=== PATIENT | male | born 1950 | race Two or more races ===

== ENCOUNTER 2016-12-06 07:06 | Day surgery (SDC) | payer OTHER ==
[2016-12-06 07:32] VITALS: BMI 29.2
--- NOTE | 2016-12-06 07:49 | PDOC ---
[id number] is a 66 year old male with a past medical hx of HTN, CHF, diabetes, end-stage renal disease on dialysis, and anemia who presents to the ED for left upper extremity fistula venogram/venoplasty. The patient reports he was sent by Dr. Paiz. The patient reports he feels fine and denies any pain or symptoms at this time. The patient denies any chest pain, SOB The patient denies any headache, lightheadedness, dizziness Vascular Surgeon: Dr. Kel Paiz <Cinda Noyola - Last Filed: 12/06/16 09:56> - General History Source: Patient Exam Limitations: No Limitations <Aman Weeks - Last Filed: 12/11/16 07:14> - General Chief Complaint: Dialysis Shunt Problem Stated Complaint: LEFT ARM PAIN Time Seen by Provider: 12/06/16 07:33 Past History <Cinda Noyola - Last Filed: 12/06/16 09:56> - Past Medical History Anemia: Yes Asthma: No Cancer: No Cardiac Disorders: No CVA: No COPD: No CHF: No Dementia: No Diabetes: Yes (non compliant) Dialysis: Yes (M-W-F) GI Disorders: No Disorders: Yes (Enlarged prostate) HTN: Yes Hypercholesterolemia: No Liver Disease: No Seizures: No Thyroid Disease: No - Surgical History Abdominal Surgery: No Appendectomy: Yes Cardiac Surgery: No Cholecystectomy: No Lung Surgery: No Neurologic Surgery: No Orthopedic Surgery: No - Family Disease History Family Disease History: Diabetes: Father - Psycho/Social/Smoking Cessation Hx Anxiety: No Suicidal Ideation: No Smoking History: Never smoked Have you smoked in the past 12 months: No Information on smoking cessation initiated: No Hx Alcohol Use: No Drug/Substance Use Hx: No Substance Use Type: None Hx Substance Use Treatment: No <Aman Weeks - Last Filed: 12/11/16 07:14> - Past Medical History Allergies/Adverse Reactions: Allergies Allergy/AdvReac Type Severity Reaction Status Date / Time No Known Allergies Allergy Verified 12/06/16 07:26 Home Medications: Ambulatory Orders Furosemide [Lasix -] 40 mg PO DAILY #30 tablet 04/27/16 Metoprolol Tartrate [Lopressor -] 25 mg PO BID #60 tablet 04/27/16 Aspirin [Ecotrin] 81 mg PO DAILY 03/23/17 Clopidogrel Bisulfate [Plavix -] 75 mg PO DAILY 12/06/16 Nifedipine ER [Procardia Xl -] 60 mg PO TID 12/06/16 Review of Systems - Review of Systems Able to Perform ROS?: Yes Comments:: 12/06/16 07:53 GENERAL/CONSTITUTIONAL: No fever or chills. No weakness. HEAD, EYES, EARS, NOSE AND THROAT: No change in vision. No ear pain or discharge. No sore throat. CARDIOVASCULAR: No chest pain or shortness of breath. RESPIRATORY: No cough, wheezing, or hemoptysis. GASTROINTESTINAL: No nausea, vomiting, diarrhea or constipation. GENITOURINARY: No dysuria, frequency, or change in urination. MUSCULOSKELETAL: No joint or muscle swelling or pain. No neck or back pain. SKIN: No rash NEUROLOGIC: No headache, vertigo, loss of consciousness, or change in strength/ sensation. ENDOCRINE: No increased thirst. No abnormal weight change. HEMATOLOGIC/LYMPHATIC: No anemia, easy bleeding, or history of blood clots. ALLERGIC/IMMUNOLOGIC: No hives or skin allergy. <Cinda Noyola - Last Filed: 12/06/16 09:56> *Physical Exam - Vital Signs Last Vital Signs Temp Pulse Resp BP Pulse Ox 97.7 F 72 18 146/77 95 12/06/16 07:20 12/06/16 07:20 12/06/16 07:20 12/06/16 07:20 12/06/16 07:20 - Physical Exam Comments: 12/06/16 07:54 GENERAL: Awake, alert, and fully oriented, in no acute distress HEAD: No signs of trauma EYES: PERRLA, EOMI, sclera anicteric, conjunctiva clear ENT: Auricles normal inspection, hearing grossly normal, nares patent, oropharynx clear without exudates. Moist mucosa NECK: Normal ROM, supple, no lymphadenopathy, JVD, or masses LUNGS: Breath sounds equal, clear to auscultation bilaterally. No wheezes, and no crackles HEART: Regular rate and rhythm, normal S1 and S2, no murmurs, rubs or gallops ABDOMEN: Soft, nontender, normoactive bowel sounds. No guarding, no rebound. No masses EXTREMITIES: +Palpable thrill left upper extremity fistula, right upper extremity dialysis port clean, dry, intact. Normal range of motion, no edema. No clubbing or cyanosis. No cords, erythema, or tenderness NEUROLOGICAL: Cranial nerves II through XII grossly intact. Normal speech, normal gait SKIN: Warm, Dry, normal turgor, no rashes or lesions noted. <Cinda Noyola - Last Filed: 12/06/16 09:56> - Vital Signs Last Vital Signs Temp Pulse Resp BP Pulse Ox 97.7 F 72 18 146/77 95 12/06/16 07:20 12/06/16 07:20 12/06/16 07:20 12/06/16 07:20 12/06/16 07:20 - Physical Exam Comments: 12/11/16 07:14 CORRECTION TO SCRIBE NOTE: Not a right upper extremity dialysis port, it is a right upper chest dialysis port. <Aman Weeks - Last Filed: 12/11/16 07:14> Heart Score/ECG Review #1 ECG reviewed & interpreted by me at: 07:40 12/06/16 07:49 NSR 67, no std, std, TWI aVL, submm STD III, QTC 469 msec <Aman Weeks - Last Filed: 12/11/16 07:14> ED Treatment Course - LABORATORY CBC & Chemistry Diagram: 12/06/16 08:00 12/06/16 08:00 <Cinda Noyola - Last Filed: 12/06/16 09:56> - LABORATORY CBC & Chemistry Diagram: 12/06/16 08:00 12/06/16 08:00 - RADIOLOGY Radiology Studies Ordered: Category Date Time Status CHEST PA & LAT [RAD] Stat Radiology 12/06/16 07:44 Ordered <Aman Weeks - Last Filed: 12/11/16 07:14> Medical Decision Making - Medical Decision Making 12/06/16 08:[address] Paiz at 0828, awaiting call back Dr. Paiz called back at 08:40, patients case was discussed. <Cinda Noyola - Last Filed: 12/06/16 09:56> - Medical Decision Making 12/06/16 07:48 A portion of this note was documented by scribe services under my direction. I have reviewed the details of the note, within reason, and agree with the documentation with the following case summary and management plan written by me. Patient treated in the ED. Nursing notes are reviewed and incorporated into the medical decision-making. Vital signs reviewed. Peripheral IV access obtained by the nurse, laboratory studies are drawn and sent, reviewed and interpreted by myself. Vital Signs Temp Pulse Resp BP Pulse Ox 97.7 F 72 18 146/77 95 12/06/16 07:20 12/06/16 07:20 12/06/16 07:20 12/06/16 07:20 12/06/16 07:20 66 year old male with past medical history of anemia of chronic disease, CHF, hypertension, diabetes, end-stage renal disease on dialysis with a left upper showing fistula and a right-sided chest dialysis port, cardiac disease presents to the emergency department for left upper extremity fistula venogram/ venoplasty. Patient was sent by his vascular surgeon. Patient denies any symptoms at this time. Had received his dialysis yesterday via his right chest port. We will pre-op this patient. Labs, EKG, chest x-ray. We'll touch base with patient's vascular surgeon admit the patient to hospital. 12/06/16 08:[address] Kel Paiz. He agrees to admit patient under ambulatory. Patient will be scheduled for the procedure at 10 am <Aman Weeks - Last Filed: 12/11/16 07:14> *DC/Admit/Observation/Transfer - Attestations Scribe Attestion: 12/06/16 07:53 Documentation prepared by Cinda Noyola, acting as lead medical technologist for Aman Weeks MD, MD/DO. <Cinda Noyola - Last Filed: 12/06/16 09:56> - Discharge Dispostion Admit: Yes <Aman Weeks - Last Filed: 12/11/16 07:14> Diagnosis at time of Disposition: Encounter regarding vascular access for dialysis for ESRD - Discharge Dispostion Condition at time of disposition: Good
[2016-12-06 08:20] LABS: EOSINOPHIL 3.1 % (0-4.5); MCH 33.3 pg (25.7-33.7); MCHC 33.8 g/dl (32.0-35.9); MEAN CELL VOLUME 98.6 fl (80-96); MEAN PLT VOLUME 7.9 fl (7.5-11.1); NEUTROPHILS 70.1 % (42.8-82.8); PLATELET COUNT 170 K/MM3 (134-434); RDW 15.3 % (11.9-15.9)
[2016-12-06 08:46] LABS: INR 1.09 (0.82-1.09)
[2016-12-06 08:48] LABS: ACTIVATED PTT 41.5 SECONDS (26.9-34.4)
[2016-12-06] MEDS ORDERED: HEPARIN NA (PORCINE) 5,000 UNITS/ML 1ML VIAL ONE ×2 (08:51→12:04)
[2016-12-06] MEDS ORDERED: LIDOCAINE HCL 1%, 10 MG/ML (20ML VIAL) ONE (08:51)
[2016-12-06 08:52] LABS: ALBUMIN 3.6 g/dl (3.4-5.0); BILIRUBIN,TOTAL 0.5 mg/dL (0.2-1.0); CREATININE 5.4 mg/dL (0.7-1.3); MAGNESIUM 2.3 mg/dL (1.8-2.4); TOT PROT 7.4 g/dl (6.4-8.2)
[2016-12-06] MEDS ORDERED: PROMETHAZINE HCL 25 MG/1 ML VIAL IVPUSH PRN (11:03)
[2016-12-06] MEDS ORDERED: ONDANSETRON 4 MG/2 ML VIAL IVPUSH PRN (11:03)
[2016-12-06] MEDS ORDERED: SODIUM CHLORIDE 1,000 ML IV SCH (11:15)
[2016-12-06] MEDS ORDERED: MIDAZOLAM HCL 2 MG/2 ML SINGLE DOSE VIAL ONE (11:37)
[2016-12-06] MEDS ORDERED: ceFAZolin SODIUM 1 GM VIAL ONE (11:55)
[2016-12-06] MEDS ORDERED: ceFAZolin SODIUM 1 GM VIAL IVPB ONE (11:56)
[2016-12-06] MEDS ORDERED: LIDOCAINE HCL 1%, 10 MG/ML (20ML VIAL) IJ ONE ×2 (11:58)
[2016-12-06] MEDS ORDERED: PROTAMINE SULFATE 50 MG/5 ML VIAL ONE (12:22)
--- NOTE | 2016-12-06 12:32 | HP ---
Admitting History and Physical - Admission Chief Complaint: immature avf left arm - Past Medical History Cardiovascular: Yes: HTN Renal/: Yes: Renal Failure Endocrine: Yes: Diabetes Mellitus - Smoking History Smoking history: Never smoked Have you smoked in the past 12 months: No - Alcohol/Substance Use Hx Alcohol Use: No - Social History ADL: Independent Home Medications - Allergies Allergies/Adverse Reactions: Allergies Allergy/AdvReac Type Severity Reaction Status Date / Time No Known Allergies Allergy Verified 12/06/16 07:26 - Home Medications Home Medications: Ambulatory Orders Furosemide [Lasix -] 40 mg PO DAILY #30 tablet 04/27/16 Metoprolol Tartrate [Lopressor -] 25 mg PO BID #60 tablet 04/27/16 Aspirin [Ecotrin] 81 mg PO DAILY 12/06/16 Clopidogrel Bisulfate [Plavix -] 75 mg PO DAILY 12/06/16 Nifedipine ER [Procardia Xl -] 60 mg PO TID 12/06/16 Physical Examination Vital Signs: Vital Signs Temperature 97.7 F 12/06/16 07:20 Pulse Rate 67 12/06/16 10:42 Respiratory Rate 19 12/06/16 10:42 Blood Pressure 163/74 12/06/16 10:42 O2 Sat by Pulse Oximetry (%) 95 12/06/16 10:42 Constitutional: Yes: Well Nourished Eyes: Yes: WNL HENT: Yes: WNL Neck: Yes: WNL Cardiovascular: Yes: WNL Respiratory: Yes: WNL Gastrointestinal: Yes: WNL Labs: CBC, BMP 12/06/16 08:00 12/06/16 08:00 Assessment/Plan Immature avf left arm 1. for balloon maturation today
--- NOTE | 2016-12-06 12:33 | OP ---
Operative Note - Note: Operative Date: 12/06/16 Pre-Operative Diagnosis: immature avf left arm Operation: venogram, venoplasty left avf Post-Operative Diagnosis: Same as Pre-op Surgeon: Kel Paiz Anesthesia: Fractional Estimated Blood Loss (mls): 5 Operative Report Dictated: Yes
[2016-12-06 13:58] VITALS: TEMP 98
[2016-12-06 16:26] VITALS: BP 148/66; PULSE 67
--- NOTE | 2016-12-06 17:05 | EKG ---
Test Reason : Blood Pressure : / mmHG Vent. Rate : 067 BPM Atrial Rate : 067 BPM P-R Int : 164 ms QRS Dur : 098 ms QT Int : 444 ms P-R-T Axes : 043 -06 077 degrees QTc Int : 469 ms NORMAL SINUS RHYTHM POSSIBLE LEFT ATRIAL ENLARGEMENT NONSPECIFIC ST AND T WAVE ABNORMALITY ABNORMAL ECG WHEN COMPARED WITH ECG OF 19-JUL-2016 09:41, T WAVE INVERSION NO LONGER EVIDENT IN LATERAL LEADS Confirmed by ARMEN SHAH, NINFA ([id number]) on 12/06/2016 5:04:58 PM Referred By: Confirmed By:NINFA AYERS MD
--- NOTE | 2016-12-07 10:32 | OP ---
DATE OF OPERATION: 12/06/2016 PREOPERATIVE DIAGNOSIS: Immature arteriovenous fistula. POSTOPERATIVE DIAGNOSIS: Immature arteriovenous fistula. PROCEDURE: Venogram, venoplasty, left arteriovenous fistula. SURGEON: Kel Farooq MD ANESTHESIA: Fractional. BLOOD LOSS: 10 mL. INDICATIONS: The patient is a 66-year-old male who had a fistula created back in August of 2016. He then had an ultrasound done in September 23, 2016, showing low flow in the AV fistula and showing that the fistula was immature. He then came in November to the office again after September when he was offered a procedure with pack, and now in November, he was offered a venogram. Patient was consented for the procedure understanding all risks, benefits, and alternatives, and patient came into ambulatory surgery. DESCRIPTION OF PROCEDURE: Patient was then taken to the operating room and laid down on the operating table in the supine manner. The area of the left arm was prepped and draped in the sterile surgical manner. Under ultrasound guidance, we visualized the distal left AV fistula in the upper arm, and we went ahead and injected 10 mL of lidocaine 1% there. We then took our micropuncture needle, punctured the left cephalic vein distally. Micropuncture wire was inserted. Micropuncture sheath was inserted, and a traditional short 6-[place] sheath was inserted. IV heparin 4000 units were administered. We then went ahead and placed a 0.035 floppy guidewire down towards the anastomosis and across the anastomosis into the radial artery. We then went ahead and used a 7 x 8 [place] balloon and performed a venoplasty of the entire fistula from the anastomosis up to the upper arm. Once completed, we shot our venogram of the fistula showing that the fistula was patent and was dilated, and there was good flow. At this point, using a 4-0 Biosyn stitch, a figure-of-8 stitch was placed around our sheath, and the sheath was pulled. The area was wet and dried, and Dermabond was placed. The patient tolerated the procedure with no complications. Patient transferred to PACU in stable condition. KEL FAROOQ DO [id number]
== END 2016-12-06 15:10 | disposition home or self-care (01) ==
LOC: JER 07:06 → JASUSAT 08:41
PROVIDERS: ATTEND Surgery Vascular Surgery
PROC: 057Y3ZZ Dilation of Upper Vein, Percutaneous Approach (ICD-10-PCS; principal; 2016-12-06 11:30)
DX: T82.898A Other specified complication of vascular prosthetic devices, implants and grafts, initial encounter (principal); I12.0 Hypertensive chronic kidney disease with stage 5 chronic kidney disease or end stage renal disease; E11.22 Type 2 diabetes mellitus with diabetic chronic kidney disease; N18.6 End stage renal disease; Z99.2 Dependence on renal dialysis
CPT/HCPCS: 36415; 71020-TC; 76000-TC; 80053; 83735; 85025; 85610; 85730; 86850; 86900; 86901; 93005; 93010; 94760; 99283-25; J1644

== ENCOUNTER 2018-01-17 22:37 | Emergency (ER) | payer SELFPAY ==
[2018-01-17 22:51] VITALS: TEMP 97.7; BMI 27.4
[2018-01-17] MEDS ORDERED: cloNIDine HCL 0.1 MG TABLET PO ONE (23:06)
[2018-01-17] MEDS ORDERED: cloNIDine HCL 0.1 MG TABLET ONE (23:18)
[2018-01-17 23:28] LABS: BASO % 0.8 % (0-2.0); EOS % 4.5 % (0-4.5); HEMATOCRIT 29.2 % (35.4-49); HEMOGLOBIN 10.1 GM/dL (11.7-16.9); LYMPH % 13.9 % (8-40); MCH 34.3 pg (25.7-33.7); MCHC 34.7 g/dl (32.0-35.9); MEAN CELL VOLUME 98.7 fl (80-96); MEAN PLT VOLUME 8.4 fl (7.5-11.1); MONO % 9.1 % (3.8-10.2); NEUT % 71.7 % (42.8-82.8); PLATELET COUNT 179 K/MM3 (134-434); RBC 2.96 M/mm3 (4.00-5.60); RDW 14.7 % (11.9-15.9); WHITE BLOOD COUNT 4.8 K/mm3 (4.0-10.0)
--- NOTE | 2018-01-17 23:32 | PDOC ---
History of Present Illness - General History Source: Patient Exam Limitations: No Limitations - History of Present Illness Initial Comments: 01/17/18 23:54 The patient is a 67 year old male with past medical history of hypertension, diabetes, and ESRD (on dialysis MWF) who presents to the ED with complaints of elevated blood pressure today while at dialysis today. He reports his blood pressure was 224/73 today and reports taking his blood pressure medication as well. He denies any associated headache, blurred vision, or palpitations. Denies any recent illness, fevers, or chills. The patient is on Hydralazine and Clonidine. He was originally started on 0.3 mg BID of clonidine but then prescribed 0.1 mg of clonidine 3x/day. Unsure if he has been taking his hydralazine. Old nursing notes reveal the patient was previously taking 60 mg nifedipine TID as well as Metoprolol. <Tamika Holliday - Last Filed: 01/18/18 02:13> - General History Source: Patient Exam Limitations: No Limitations <Fiona Yepez - Last Filed: 01/18/18 02:27> - General Chief Complaint: Blood Pressure Problem Stated Complaint: HYPERTENSIVE Time Seen by Provider: 01/17/18 22:50 Past History <Tamika Holliday - Last Filed: 01/18/18 02:13> - Past Medical History Anemia: Yes Asthma: No Cancer: No Cardiac Disorders: No CVA: No COPD: No CHF: No Dementia: No Diabetes: Yes (non compliant) Dialysis: Yes (M-W-F) GI Disorders: No Disorders: Yes (Enlarged prostate) HTN: Yes Hypercholesterolemia: No Liver Disease: No Seizures: No Thyroid Disease: No - Surgical History Abdominal Surgery: No Appendectomy: Yes Cardiac Surgery: No Cholecystectomy: No Lung Surgery: No Neurologic Surgery: No Orthopedic Surgery: No - Family Disease History Family Disease History: Diabetes: Father - Suicide/Smoking/Psychosocial Hx Smoking History: Never smoked Have you smoked in the past 12 months: No Information on smoking cessation initiated: No Hx Alcohol Use: No Drug/Substance Use Hx: No Substance Use Type: None Hx Substance Use Treatment: No <Fiona Yepez - Last Filed: 01/18/18 02:27> - Past Medical History Allergies/Adverse Reactions: Allergies Allergy/AdvReac Type Severity Reaction Status Date / Time No Known Allergies Allergy Verified 01/17/18 22:50 Home Medications: Ambulatory Orders Furosemide [Lasix -] 40 mg PO DAILY #30 tablet 04/27/16 Aspirin [Ecotrin] 81 mg PO DAILY 12/06/16 Clopidogrel Bisulfate [Plavix -] 75 mg PO DAILY 12/06/16 Hydralazine HCl 50 mg PO TID 01/17/18 Hydralazine HCl 50 mg PO TID #42 tablet 01/18/18 Review of Systems - Review of Systems Able to Perform ROS?: Yes Comments:: 01/17/18 23:54 GENERAL/CONSTITUTIONAL: No fever or chills. No weakness. HEAD, EYES, EARS, NOSE AND THROAT: No change in vision. No ear pain or discharge. No sore throat. CARDIOVASCULAR: No chest pain or shortness of breath. RESPIRATORY: No cough, wheezing, or hemoptysis. GASTROINTESTINAL: No nausea, vomiting, diarrhea or constipation. GENITOURINARY: No dysuria, frequency, or change in urination. MUSCULOSKELETAL: No joint or muscle swelling or pain. No neck or back pain. SKIN: No rash NEUROLOGIC: No headache, vertigo, loss of consciousness, or change in strength/ sensation. ENDOCRINE: No increased thirst. No abnormal weight change. HEMATOLOGIC/LYMPHATIC: No anemia, easy bleeding, or history of blood clots. ALLERGIC/IMMUNOLOGIC: No hives or skin allergy. All Other Systems: Reviewed and Negative <Tamika Holliday - Last Filed: 01/18/18 02:13> *Physical Exam - Vital Signs Last Vital Signs Temp Pulse Resp BP Pulse Ox 97.7 F 46 L 18 224/73 96 01/17/18 22:50 01/17/18 22:50 01/17/18 22:50 01/17/18 22:50 01/17/18 22:50 - Physical Exam Comments: 01/17/18 23:54 GENERAL: drowsy but arousable and fully oriented, in no acute distress HEAD: No signs of trauma EYES: PERRLA, EOMI, sclera anicteric, conjunctiva clear ENT: Auricles normal inspection, hearing grossly normal, nares patent, oropharynx clear without exudates. Moist mucosa NECK: Normal ROM, supple, no lymphadenopathy, JVD, or masses LUNGS: Breath sounds equal, clear to auscultation bilaterally. No wheezes, and no crackles HEART: Regular rate and rhythm, normal S1 and S2, no murmurs, rubs or gallops ABDOMEN: Soft, nontender, normoactive bowel sounds. No guarding, no rebound. No masses EXTREMITIES: Normal range of motion, no edema. No clubbing or cyanosis. No cords, erythema, or tenderness NEUROLOGICAL: Cranial nerves II through XII grossly intact. Normal speech, normal gait SKIN: Warm, Dry, normal turgor, no rashes or lesions noted. <DouglashoTamika - Last Filed: 01/18/18 02:13> - Vital Signs Last Vital Signs Temp Pulse Resp BP Pulse Ox 97.7 F 46 L 18 224/73 96 01/17/18 22:50 01/17/18 22:50 01/17/18 22:50 01/17/18 22:50 01/17/18 22:50 <Fiona Yepez - Last Filed: 01/18/18 02:27> Heart Score/ECG Review #1 General ECG Interpretation: Sinus Rhythm, Normal Rate, Normal Intervals, No acute ischemic changes (TWI I AVL, v5 - v6.) Compared to previous ECG there are: No significant change (comparison 12/06/16) <Fiona Yepez - Last Filed: 01/18/18 02:27> ED Treatment Course - LABORATORY CBC & Chemistry Diagram: 01/17/18 23:15 01/17/18 23:15 - ADDITIONAL ORDERS Additional order review: 01/17/18 23:15 RBC 2.96 L MCV 98.7 H MCHC 34.7 RDW 14.7 MPV 8.4 Neutrophils % 71.7 Lymphocytes % 13.9 Monocytes % 9.1 Eosinophils % 4.5 Basophils % 0.8 - Medications Given in the ED: ED Medications Discontinued Medications Generic Name Dose Route Start Last Admin Trade Name Freq PRN Reason Stop Dose Admin Clonidine 0.1 mg 01/17/18 23:06 01/17/18 23:21 Catapres - PO 01/17/18 23:07 0.1 mg ONCE ONE Administration <ryannehoTamika - Last Filed: 01/18/18 02:13> - LABORATORY CBC & Chemistry Diagram: 01/17/18 23:15 01/17/18 23:15 - RADIOLOGY Radiology Studies Ordered: Category Date Time Status CHEST PA & LAT [RAD] Stat Radiology 01/17/18 23:07 Ordered - Medications Given in the ED: ED Medications Discontinued Medications Generic Name Dose Route Start Last Admin Trade Name Donna PRErik Reason Stop Dose Admin Clonidine 0.1 mg 01/17/18 23:06 01/17/18 23:21 Catapres - PO 01/17/18 23:07 0.1 mg ONCE ONE Administration <Fiona Yepez - Last Filed: 01/18/18 02:27> Medical Decision Making - Medical Decision Making 01/18/18 02:13 Phone call placed in attempt to speak to labor economics professor physician for Dr. Kb Bailey. <Tamika Holliday - Last Filed: 01/18/18 02:13> - Medical Decision Making 01/18/18 02:26 pt with elevated bp, but states he has had bp over 200's for over a month. eduard cp or sob. workup negative including ekg cxr . mild pos trop always positive, no ekg changes. d/w pt regarding medicaiton. will need to see dr. bailey to reevaluate medication next week.appears pt not taking his hydralazine. sent rx to pharmacy for hydralazine 50 tid. <Fiona Yepez - Last Filed: 01/18/18 02:27> *DC/Admit/Observation/Transfer - Attestations Scribe Attestion: 01/17/18 23:55 Documentation prepared by Tamika Holliday, acting as medical affairs manager for Fiona Yepez MD. <Tamika Holliday - Last Filed: 01/18/18 02:13> <Fiona Yepez - Last Filed: 01/18/18 02:27> Diagnosis at time of Disposition: Hypertension - Discharge Dispostion Disposition: HOME Condition at time of disposition: Improved - Prescriptions Prescriptions: Hydralazine HCl 50 mg PO TID #42 tablet - Referrals Referrals: Kb Bailey MD [Primary Care Provider] - - Patient Instructions Printed Discharge Instructions: DI for High Blood Pressure Additional Instructions: you need to follow up with Dr. Bailey next week to discuss your medications. return for any difficulty breathing chest pain , headache or any concerns. you should continue taking your blood pressure medication, and also take hydralazine 50 mg three times daily. - Post Discharge Activity
[2018-01-17 23:55] LABS: ALBUMIN 3.7 g/dl (3.4-5.0); ANION GAP 9 (8-16); BLOOD UREA NITROGEN 26 mg/dL (7-18); CALCIUM 9.1 mg/dL (8.5-10.1); CHLORIDE 97 mmol/L (98-107); CO2 30 mmol/L (21-32); CREATININE 4.8 mg/dL (0.7-1.3); GLUCOSE,RANDOM 251 mg/dL (74-106); POTASSIUM 4.5 mmol/L (3.5-5.1); SGOT/AST 12 U/L (15-37); SGPT/ALT 19 U/L (12-78); SODIUM 136 mmol/L (136-145)
[2018-01-17 23:59] LABS: ALK PHOS 143 U/L (45-117); BILIRUBIN,TOTAL 0.7 mg/dL (0.2-1.0); TOT PROT 7.4 g/dl (6.4-8.2)
[2018-01-18] MEDS ORDERED: hydrALAZINE HCL 50 MG TABLET (FP) PO ONE (01:51)
[2018-01-18] MEDS ORDERED: hydrALAZINE HCL 25 MG TABLET (FP) ONE (01:58)
[2018-01-18 02:56] VITALS: BP 180/75; PULSE 44
--- NOTE | 2018-01-18 14:33 | EKG ---
Test Reason : Blood Pressure : / mmHG Vent. Rate : 048 BPM Atrial Rate : 048 BPM P-R Int : 186 ms QRS Dur : 100 ms QT Int : 530 ms P-R-T Axes : 042 -16 159 degrees QTc Int : 473 ms SINUS BRADYCARDIA POSSIBLE LEFT ATRIAL ENLARGEMENT PROLONGED QT ABNORMAL ECG WHEN COMPARED WITH ECG OF 06-DEC-2016 07:39, NONSPECIFIC T WAVE ABNORMALITY NOW EVIDENT IN INFERIOR LEADS T WAVE INVERSION NOW EVIDENT IN LATERAL LEADS Confirmed by MD Faustino, Aram ([id number]) on 01/18/2018 2:33:41 PM Referred By: Confirmed By:Aram Harmon MD
== END 2018-01-18 03:18 | disposition home or self-care (01) ==
LOC: JER 22:37
DX: I10 Essential (primary) hypertension (principal); I12.0 Hypertensive chronic kidney disease with stage 5 chronic kidney disease or end stage renal disease; E11.22 Type 2 diabetes mellitus with diabetic chronic kidney disease; N18.6 End stage renal disease; N17.8 Other acute kidney failure; Z99.2 Dependence on renal dialysis; N40.0 Benign prostatic hyperplasia without lower urinary tract symptoms; Z91.14 Patient's other noncompliance with medication regimen
CPT/HCPCS: 36415; 71045-TC-FY; 80053; 82550; 84484; 85025; 93005; 93010; 99284-25; J0735

== ENCOUNTER 2018-05-14 19:20 | Inpatient (IN) | payer OTHER ==
[2018-05-14 19:30] VITALS: BMI 29.6
--- NOTE | 2018-05-14 19:30 | PDOC ---
Rapid Medical Evaluation Time Seen by Provider: 05/14/18 19:26 Medical Evaluation: Allergies Allergy/AdvReac Type Severity Reaction Status Date / Time No Known Allergies Allergy Verified 01/17/18 22:50 05/14/18 19:27 Pt presents with R 2nd toe infection. Family member states that he had a cut on his toe approximately one week ago. He was taken to a hospital and was given abx. His family member checked the toe today and states it is black. Pt has NIDDM. Pt is on dialysis. Pt was last dialyzed today. Exam: ambulatory with limp, NAD, afebrile Orders: Labs, EKG, IV insert, Urine Pt to proceed to ED for further evaluation Discharge Disposition - Diagnosis Wound infection - Referrals - Patient Instructions - Post Discharge Activity
--- NOTE | 2018-05-14 21:18 | PDOC ---
History of Present Illness - General Chief Complaint: Puncture Wound Stated Complaint: INFECTION Time Seen by Provider: 05/14/18 19:26 History Source: Patient Exam Limitations: No Limitations - History of Present Illness Initial Comments: 05/14/18 21:12 68 yo M with a hx of ESRD (on dialysis MWF last tx today), HTN, and DM presents to the emergency department with left 4th toe digit infection. Per the patient, he states it occurred 1 week ago and began as a small cut on the web space between the 3rd and 4th digit. He went to [facility] 1 week ago and treated with clindamycin (prescribed on 05/10/2018, compliant) but has been getting worse. Per the daughter, she noticed it turning black today. The patient states its painful, does not radiate, and is currently 4/10 throbbing and increases to 7/10 when walking. Denies the following: fever, chest pain, headache, dizziness , chills, diaphoresis, SOB, abdominal pain, hematuria, diarrhea, nausea, vomiting, and leg swelling/pain. Endorses having a cough for the past few days. Pmhx: Refer to above. On dialysis for 2 years. Shx: AV fistula left arm 2017 Meds: hydralazine, nifedipine, aspirin, renagel, and chlorthalid Allergies: None Social hx: Denies smoking, alcohol, and drug use. 05/14/18 21:15 Past History - Past Medical History Allergies/Adverse Reactions: Allergies Allergy/AdvReac Type Severity Reaction Status Date / Time No Known Allergies Allergy Verified 05/14/18 19:30 Home Medications: Ambulatory Orders Furosemide [Lasix -] 40 mg PO DAILY #30 tablet 04/27/16 Aspirin [Ecotrin] 81 mg PO DAILY 12/06/16 Clopidogrel Bisulfate [Plavix -] 75 mg PO DAILY 12/06/16 Hydralazine HCl 50 mg PO TID 01/17/18 Hydralazine HCl 50 mg PO TID #42 tablet 01/18/18 Anemia: No Asthma: No Cancer: No Cardiac Disorders: No CVA: No COPD: No CHF: No Dementia: No Diabetes: Yes (non compliant) Dialysis: Yes (M-W-F) GI Disorders: No Disorders: Yes (Enlarged prostate) HTN: Yes Hypercholesterolemia: No Liver Disease: No Seizures: No Thyroid Disease: No - Surgical History Abdominal Surgery: No Appendectomy: Yes Cardiac Surgery: No Cholecystectomy: No Lung Surgery: No Neurologic Surgery: No Orthopedic Surgery: No - Family Disease History Family Disease History: Diabetes: Father - Suicide/Smoking/Psychosocial Hx Smoking History: Never smoked Have you smoked in the past 12 months: No Hx Alcohol Use: No Drug/Substance Use Hx: No Substance Use Type: None Hx Substance Use Treatment: No Review of Systems - Review of Systems Able to Perform ROS?: Yes Constitutional: No: Chills, Diaphoresis, Fever HEENTM: No: Recent change in vision, Ear Pain, Nose Pain, Throat Pain, Mouth Pain Respiratory: No: Cough, Shortness of Breath, Hemoptysis Cardiac (ROS): No: Chest Pain, Palpitations ABD/GI: No: Constipated, Diarrhea, Nausea, Rectal Bleeding, Vomiting, Tarry Stools : No: Burning, Dysuria, Hematuria Integumentary: Yes: Change in Color (black on 4th digit left toe), Erythema Neurological: No: Headache, Numbness, Paresthesia, Tingling, Tremors Psychiatric: No: Stressors Endocrine: No: Increased Hunger Hematologic/Lymphatic: No: Anemia *Physical Exam - Vital Signs Last Vital Signs Temp Pulse Resp BP Pulse Ox 97.8 F 60 18 158/66 95 05/14/18 19:26 05/14/18 19:26 05/14/18 19:26 05/14/18 19:26 05/14/18 19:26 - Physical Exam General Appearance: Yes: Nourished, Appropriately Dressed HEENT: positive: EOMI, HILLARY Neck: positive: Trachea midline. negative: Lymphadenopathy (R), Lymphadenopathy (L) Respiratory/Chest: positive: Lungs Clear, Normal Breath Sounds Cardiovascular: positive: Regular Rhythm, Regular Rate, S1, S2. negative: Systolic Murmur Vascular Pulses: Dorsalis-Pedis (R): 2+, Doralis-Pedis (L): 2+ Gastrointestinal/Abdominal: positive: Normal Bowel Sounds. negative: Tender Lymphatic: negative: Adenopathy Musculoskeletal: positive: Normal Inspection. negative: CVA Tenderness Extremity: positive: Delayed Capillary Refill, Erythema, Inflammation, Other ( developing gangrenous color on the left 4th toe digit. ) Integumentary: positive: Dry, Warm Neurologic: positive: clerk II-XII NML intact, Fully Oriented, Alert, Motor Strength 5/5, Other (decreased sensation at site of infection in the 4th digit toe left.) Heart Score/ECG Review - ECG Intrepretation Comment:: sinus rhythm at [address] elevations and depressions noted. ED Treatment Course - LABORATORY CBC & Chemistry Diagram: 05/14/18 21:24 05/14/18 21:24 - RADIOLOGY Radiology Studies Ordered: Category Date Time Status TOE(S) LEFT [RAD] Stat Radiology 05/14/18 20:50 Ordered Medical Decision Making - Medical Decision Making 68 yo M with hx of DM, ESRD on dialysis (MWF last dose today), and HTN who presents to the ED with diabetic foot wound failure to respond to outpatient oral antibiotics. Initial vitals" Initial Vital Signs Temp Pulse Resp BP Pulse Ox 97.8 F 60 18 158/66 95 05/14/18 19:26 05/14/18 19:26 05/14/18 19:26 05/14/18 19:26 05/14/18 19:26 Work up: Laboratory Tests 05/14/18 05/14/18 05/14/18 21:24 21:24 21:24 WBC 7.0 RBC 3.17 L Hgb 10.7 L Hct 32.1 L MCV 101.2 H MCH 33.7 MCHC 33.3 RDW 16.0 H Plt Count 253 D MPV 8.3 Absolute Neuts (auto) 5.3 Neutrophils % 76.9 Lymphocytes % 8.4 D Monocytes % 13.1 H Eosinophils % 1.0 Basophils % 0.6 Nucleated RBC % 0 PT with INR 12.30 INR 1.09 Sodium 137 Potassium 4.6 Chloride 98 Carbon Dioxide 28 Anion Gap 11 BUN 26 H Creatinine 5.1 H Creat Clearance w eGFR 11.27 Random Glucose 179 H D Calcium 9.1 Total Bilirubin 0.4 AST 20 D ALT 28 D Alkaline Phosphatase 371 H Total Protein 7.3 Albumin 3.3 L pt was prescribed oral clindaymycin and suspected outpatient abx failure in setting of diabetic foot wound. xrays were ordered of the left foot and showed loss of bone density, "heavy vascular calcifications and some arhritic changes. If one is concerned about osteomyelitis, three phase bone can or MR is suggested. Given need for IV abx, will need admission. *DC/Admit/Observation/Transfer Diagnosis at time of Disposition: Wound infection, ESRD (end stage renal disease), Diabetic foot infection - Discharge Dispostion Decision to Admit order: Yes - Referrals - Patient Instructions - Post Discharge Activity
[2018-05-14] MEDS ORDERED: VANCOMYCIN 1,000 MG in DEXTROSE 5%-WATER - 250 ML IVPB ONE (21:32)
[2018-05-14] MEDS ORDERED: PIPERACILLIN/TAZOB 2.25 GM 2.25 GM in DEXTROSE 5%-WATER - 50 ML IVPB ONE (21:32)
[2018-05-14 21:45] LABS: BASO % 0.6 % (0-2.0); HEMATOCRIT 32.1 % (35.4-49); HEMOGLOBIN 10.7 GM/dL (11.7-16.9); LYMPH % 8.4 % (8-40); MCH 33.7 pg (25.7-33.7); MCHC 33.3 g/dl (32.0-35.9); MEAN CELL VOLUME 101.2 fl (80-96); MEAN PLT VOLUME 8.3 fl (7.5-11.1); MONO % 13.1 % (3.8-10.2); NEUT % 76.9 % (42.8-82.8); PLATELET COUNT 253 K/MM3 (134-434); RBC 3.17 M/mm3 (4.00-5.60)
[2018-05-14 21:50] LABS: INR 1.09 (0.83-1.09); PROTHROMBIN TIME (PATIENT) 12.3 SEC (9.7-13.0)
--- NOTE | 2018-05-14 21:55 | PDOC ---
Attending Attestation - [facility] HPI: 05/14/18 21:58 The patient is a 68 year old male, with a significant past medical history of ESRD (on dialysis MWF last tx today)(2 years), HTN, and DM presents to the emergency department with left 4th toe digit infection, who presents to the ED complaining of a small cut in the web space between the 3rd and 4th digit. He went to [facility] 1 week ago and was treated with clindamycin (prescribed on 05/10/2018, compliant) but has been getting worse. Daughter states that she noticed the area turning black today. He notes that the area is painful but does not radiate anywhere. Pain increases when he walks. He notes that he has been experiencing a dry cough over the past few days. The patient denies chest pain, shortness of breath, headache and dizziness. Denies fever, chills, nausea, vomiting, diarrhea or constipation. Denies dysuria , frequency, urgency and hematuria. Allergies: None Past surgical history: AV fistula left arm 2017, appendectomy Social History: No alcohol, tobaco or drug use reported - Physicial Exam PE: 05/14/18 21:58 Constitutional: Awake, alert, oriented. No acute distress. Head: Normocephalic. Atraumatic Eyes: PERRL. EOMI. Conjunctivae are not pale. ENT: Mucous membranes are moist and intact. Posterior pharynx without exudates or erythema. Uvula midline. Neck: Supple. Full ROM. No lymphadenopathy. Cardiovascular: Regular rate. Regular rhythm. S1, S2 regular. Distal pulses are 2+ and symmetric. Pulmonary/Chest: No evidence of respiratory distress. Clear to auscultation bilaterally No wheezing, rales or rhonchi. Abdominal: Soft and non-distended. There is no tenderness. No rebound, guarding or rigidity. No organomegaly. No palpable masses. Good bowel sounds. Back: No CVA tenderness. Musculoskeletal: (+) Left upper extremity AV fistula. Left foot pedal pulses are 1+. Delayed cap refill. Warm to touch. Left 4th tow has skin breakage, purulent drainage, tender to palpation. No crepatus. No edema. No cyanosis. No clubbing. Full range of motion in all extremities. Nocalf tenderness. Skin: Skin is warm and dry. No petechiae. No purpura. Neurological: Alert and oriented to person, place, and time. Cranial nerves II -XII are grossly intact. Normal speech. Strength is grossly symmetric. No sensory deficits. Psychiatric: Good eye contact. Normal interaction, affect and behavior. <Corbin Bautista - Last Filed: 05/14/18 21:58> - Resident Resident Name: Osvaldo Rand - ED Attending Attestation I have performed the following: I have examined & evaluated the patient, The case was reviewed & discussed with the resident, I agree w/resident's findings & plan, Exceptions are as noted - Medical Decision Making 05/14/18 21:51 I, Dr. Sherry Estes, DO, attest that this document has been prepared under my direction and personally reviewed by me in its entirety. I further attest, that it accurately reflects all work, treatment, procedures and medical decision -making performed by me. 05/14/18 21:52 a/p: 68yo male with toe injury a week ago, currently on oral clina from [facility] with worsening pain and drainage from the L 4th digit -necrosis of the plantar surface of the toe, mildly delayed cap refill -hx of ESRD on HD m,w,f - had full HD today - swelling, purulent drainage, concern for failed outpt abx and diabetic foot wound -Dr. Aguilar is nephro -Dr. Kb Leonardo is PMD -will send cultures -concern for nonhealing dm foot wound and poss osteo -will obtain xrays -will need admission for IV abx 05/15/18 01:00 labs reviewed case discussed with ASHLY who accepts pt to service <Sherry Estes - Last Filed: 05/15/18 01:02> Discharge Disposition - Discharge Dispostion Last Admission D/C Date: 04/26/16 Decision to Admit order: Yes <Sherry Estes - Last Filed: 05/15/18 01:02> - Diagnosis Wound infection, ESRD (end stage renal disease), Diabetic foot infection - Discharge Dispostion Condition at time of disposition: Fair - Referrals Referrals: Kb Leonardo MD [Primary Care Provider] - - Patient Instructions - Post Discharge Activity Heart Score/ECG Review - ECG Intrepretation Comment:: 05/14/18 21:51 sinus prashant at 57, lvh, nl axis, nl interval, no acute st/t wave findings <Sherry Estes - Last Filed: 05/15/18 01:02>
[2018-05-14 22:00] LABS: ALBUMIN 3.3 g/dl (3.4-5.0); ALK PHOS 371 U/L (45-117); ANION GAP 11 MMOL/L (8-16); BILIRUBIN,TOTAL 0.4 mg/dL (0.2-1.0); BLOOD UREA NITROGEN 26 mg/dL (7-18); CALCIUM 9.1 mg/dL (8.5-10.1); CHLORIDE 98 mmol/L (98-107); CO2 28 mmol/L (21-32); CREATININE 5.1 mg/dL (0.7-1.3); GLUCOSE,RANDOM 179 mg/dL (74-106); POTASSIUM 4.6 mmol/L (3.5-5.1); SGOT/AST 20 U/L (15-37); SGPT/ALT 28 U/L (12-78); SODIUM 137 mmol/L (136-145); TOT PROT 7.3 g/dl (6.4-8.2)
[2018-05-14] MEDS ORDERED: VANCOMYCIN 1 GRAM (PRE-DOCKED) 1,000 MG/250 ML BAG IVPB ONE (22:10)
[2018-05-14] MEDS ORDERED: PIPERACILLIN/TAZOBACTAM 2.25 GM VIAL IVPB ONE (22:10)
--- NOTE | 2018-05-15 00:45 | PN ---
Teaching Attending Note Name of Resident: David Orellana ATTENDING PHYSICIAN STATEMENT I saw and evaluated the patient. I reviewed the resident's note and discussed the case with the resident. I agree with the resident's findings and plan as documented. SUBJECTIVE: Patient is a 68 year old man with history of ESRD for 2 years (M-W-F last dialyzed today), HTN, and NIDDM who presents to the ER with left 4th toe infection. He says it occurred 1 week ago and began as a small cut on the web space between the 3rd and 4th digit. He went to [facility] 1 week ago and treated with clindamycin (prescribed on 05/10/2018, compliant) but has been getting worse. Per the daughter, she noticed it turning black today. The patient states it is painful, does not radiate, and is currently 4/10 throbbing and increases to 7/10 when walking. Denies fever, chest pain, headache, dizziness, chills, diaphoresis, SOB, diarrhea, nausea, or vomiting. Has had a cough for the past few days. OBJECTIVE: Alert Vital Signs Period Temp Pulse Resp BP Sys/Cole Pulse Ox Last 24 Hr 97.8 F-98.1 F 60-62 18-20 148-158/65-66 95-100 HEENT: No Jaundice, eye redness or discharge, PERRLA, EOMI. Normocephalic, atraumatic. External ears are normal and hearing is grossly intact. No nasal discharge. Neck: Supple, nontender. No palpable adenopathy or thyromegaly. No JVD Chest: Good effort. Clear to auscultation and percussion. Heart: Regular. No S3, rub or murmur Abdomen: Not distended, soft, nontender and no HSM. No rebound or guarding. Normoactive bowel sounds. Ext: Peripheral pulses intact. Left arm AV fistula with good thrill and bruit. No leg edema. Discolored left 4th toe with wound and drainage; tender to palpation. Skin: Warm and dry. No petechiae, rash or ecchymosis. Neuro: Alert. Oriented x3. CN 2-12 grossly intact. Sensation grossly intact in all four extremities and DTR are symmetric. Home Medications Medication Instructions Recorded Furosemide [Lasix -] 40 mg PO DAILY #30 tablet 08/12/16 Aspirin [Ecotrin] 81 mg PO DAILY 12/06/16 Clopidogrel Bisulfate [Plavix -] 75 mg PO DAILY 12/06/16 Hydralazine HCl 50 mg PO TID 01/17/18 Hydralazine HCl 50 mg PO TID #42 tablet 01/18/18 Abnormal Lab Results 05/14/18 05/14/18 21:24 21:24 RBC 3.17 L Hgb 10.7 L Hct 32.1 L MCV 101.2 H RDW 16.0 H Monocytes % 13.1 H BUN 26 H Creatinine 5.1 H Random Glucose 179 H D Alkaline Phosphatase 371 H Albumin 3.3 L ASSESSMENT AND PLAN: 1. Infected diabetic foot wound - Will do wound culture and treat with IV vancomycin and zosyn pending culture. Foot xray is unrevealing. Consult podiatry and ID. Consult nephrology to continue thrice weekly dialysis. Macrocytosis - get B12 and folate levels. 2. DM - Diet-controlled DM? Check HbA1c and implement sliding scale insulin regimen. Provide comprehensive diabetes care with patient teaching and counseling about the importance of euglycemia, eye care and foot care. 3. DVT prophylaxis - Heparin 5000u sq tid. 4. Advance directives - Full code
--- NOTE | 2018-05-15 03:12 | HP ---
CHIEF COMPLAINT: Left toe pain PCP: Dr. Leonardo HISTORY OF PRESENT ILLNESS: The patient is Finnish speaking. History obtained w/ assistance of [employer] conference interpreter #[id number] The patient is a 68 yo m w/ PMH ESRD on HD (MWF) HTN, DM who comes tot he ED c/ o a 1 week history of worsening left foot infection. The patient states that his infection began approx 5 days ago with a cut between his 3rd and 4th toe. The foot then developed erythema and pain. 3 days ago, the patient went to [facility] ED, where he was sent home with clindamycin. The infection continued to worsen despite ABX treatment and the patient presented for evaluation after he noticed his 4th toe turning black today. The patient describes 4/10 throbbing pain in the left foot while at rest and 7/10 left foot pain while ambulating. Patient does not follow with either a family lawyer or opthalmologist. Patient denies fevers, chills, chest pain, headache, diarrhea, dysuria, SOB, abdominal pain. 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 DM wound treatment 3 years ago On HD x 2 years PAST SURGICAL HISTORY: Left AVF 2017 Cataract surgery Social History: Smoking: denies Alcohol: denies Drugs: denies Family History: mother, father and 1 sibling w/ DM Allergies No Known Allergies Allergy (Verified 05/14/18 19:30) HOME MEDICATIONS: Home Medications Medication Instructions Recorded Furosemide [Lasix -] 40 mg PO DAILY #30 tablet 04/27/16 Aspirin [Ecotrin] 81 mg PO DAILY 12/06/16 Clopidogrel Bisulfate [Plavix -] 75 mg PO DAILY 12/06/16 Hydralazine HCl 50 mg PO TID 01/17/18 Hydralazine HCl 50 mg PO TID #42 tablet 01/18/18 REVIEW OF SYSTEMS CONSTITUTIONAL: Absent: fever, chills, diaphoresis, generalized weakness, malaise, loss of appetite, weight change HEENT: Absent: rhinorrhea, nasal congestion, throat pain, throat swelling, difficulty swallowing, mouth swelling, ear pain, eye pain, visual changes CARDIOVASCULAR: Absent: chest pain, syncope, palpitations, irregular heart rate, lightheadedness , peripheral edema RESPIRATORY: Absent: cough, shortness of breath, dyspnea with exertion, orthopnea, wheezing, stridor, hemoptysis GASTROINTESTINAL: Absent: abdominal pain, abdominal distension, nausea, vomiting, diarrhea, constipation, melena, hematochezia GENITOURINARY: Absent: dysuria, frequency, urgency, hesitancy, hematuria, flank pain, genital pain MUSCULOSKELETAL: Absent: myalgia, arthralgia, joint swelling, back pain, neck pain SKIN: Absent: rash, itching, pallor HEMATOLOGIC/IMMUNOLOGIC: Absent: easy bleeding, easy bruising, lymphadenopathy, frequent infections ENDOCRINE: Absent: unexplained weight gain, unexplained weight loss, heat intolerance, cold intolerance NEUROLOGIC: Absent: headache, focal weakness or paresthesias, dizziness, unsteady gait, seizure, mental status changes, bladder or bowel incontinence PSYCHIATRIC: Absent: anxiety, depression, suicidal or homicidal ideation, hallucinations. PHYSICAL EXAMINATION Vital Signs - 24 hr 05/14/18 05/14/18 05/14/18 19:26 20:55 23:19 Temperature 97.8 F 98.1 F Pulse Rate 60 Pulse Rate [ 62 Apical] Respiratory 18 20 Rate Blood Pressure 158/66 Blood Pressure 148/65 [Right Arm] O2 Sat by Pulse 95 100 95 Oximetry (%) GENERAL: Awake, alert, and fully oriented, in no acute distress. HEAD: Normal with no signs of trauma. EYES: Pupils equal, round and reactive to light, extraocular movements intact, sclera anicteric, conjunctiva clear. No lid lag. EARS, NOSE, THROAT: oropharynx clear without exudates. Moist mucous membranes. NECK: Normal range of motion, supple without lymphadenopathy, JVD, or masses. LUNGS: Breath sounds equal, clear to auscultation bilaterally. No wheezes, and no crackles. No accessory muscle use. HEART: Regular rate and rhythm, normal S1 and S2 without murmur, rub or gallop. ABDOMEN: Soft, nontender, not distended, normoactive bowel sounds, no guarding, no rebound, no masses. No hepatomegaly or splenomegaly. LOWER EXTREMITIES: warm, well-perfused. No calf tenderness. No peripheral edema. The left 4th toe is dark in color, cold to the touch with obvious skin breakdown. The toe is foul smelling. There is a surrounding erythema along the dorsum of the patient's foot. No fluctuance appreciated. Pulses 2+ on the right and 1+ on the left NEUROLOGICAL: Cranial nerves II-X intact. Normal speech. PSYCHIATRIC: Cooperative. Good eye contact. Appropriate mood and affect. SKIN: Warm, dry, normal turgor, no rashes or lesions noted, normal capillary refill. Laboratory Results - last 24 hr 05/14/18 05/14/18 05/14/18 21:24 21:24 21:24 WBC 7.0 RBC 3.17 L Hgb 10.7 L Hct 32.1 L MCV 101.2 H MCH 33.7 MCHC 33.3 RDW 16.0 H Plt Count 253 D MPV 8.3 Absolute Neuts (auto) 5.3 Neutrophils % 76.9 Lymphocytes % 8.4 D Monocytes % 13.1 H Eosinophils % 1.0 Basophils % 0.6 Nucleated RBC % 0 PT with INR 12.30 INR 1.09 Sodium 137 Potassium 4.6 Chloride 98 Carbon Dioxide 28 Anion Gap 11 BUN 26 H Creatinine 5.1 H Creat Clearance w eGFR 11.27 Random Glucose 179 H D Calcium 9.1 Total Bilirubin 0.4 AST 20 D ALT 28 D Alkaline Phosphatase 371 H Total Protein 7.3 Albumin 3.3 L ASSESSMENT/PLAN: The patient is a 68 yo m w/ PMH ESRD on HD, HTN, DM who comes into the ED c/o a left infected DM ulcer. #DM foot ulcer -toe cold, dusky and numb, concerning for arterial dysfunction -foul smelling toe concerning for infection/osteo -ID consult -s/p vancomycin in ED; holding AM dose pending random vanc level -s/p zosyn 2.25 in ED; will continue Q8h -Vascular surgery consult -wound culture -podiatry consult -MRI left foot r/o osteo/collection #ESRD on HD -consult nephro -dialyze according to normal schedule #DM -BGM achs -ISS achs -verify DM meds in AM -A1c in AM #Anemia -likely 2/2 ESRD -B12 and folate levels #FEN -no fluids indicated -lytes WNL -NPO in event of procedure in AM #Prophy -Heparin SQ 5K units TID #Dispo -admit med surg Visit type - Emergency Visit Emergency Visit: Yes ED Registration Date: 05/15/18 Care time: The patient presented to the Emergency Department on the above date and was hospitalized for further evaluation of their emergent condition. - New Patient This patient is new to me today: Yes Date on this admission: 05/15/18 - Critical Care Critical Care patient: No Hospitalist Screening - Colonoscopy Questionnaire Colonoscopy Questionnaire: Colonoscopy Questionnaire - Patient: 50 - 75 years old and never had a screening colonoscopy: Unknown History of colon or rectal polyps, or CA: Unknown History of IBD, Crohn's disease or UC: Unknown History of abdominal radiation therapy as a child: Unknown - Relative: 1 with colon or rectal CA, or polyps at age 60 or younger: Unknown Colon or rectal CA diagnosed at age 45 or younger: Unknown Multiple relatives with colon or rectal CA: Unknown - Outcome: Screening Result: Negative Screen
[2018-05-15] MEDS ORDERED: PIPERACILLIN/TAZOB 2.25 GM 2.25 GM in DEXTROSE 5%-WATER - 50 ML IVPB ONE (06:00)
[2018-05-15] MEDS: INSULIN SLIDING SCALE (NOVOLOG) 1 VIAL SQ SCH ×4 (06:24→21:12)
[2018-05-15] MEDS: HEPARIN NA (PORCINE) 5,000 UNITS/ML 1ML VIAL SQ SCH ×3 (06:27→21:08)
--- NOTE | 2018-05-15 08:59 | CONSULT ---
- Consultation REQUESTING PROVIDER: Kel Paiz / Vascular Surgery CONSULT REQUEST: We have been asked to surgically evaluate this patient for worsening left foot infection x 1 week PCP: Dr. Leonardo HPI: Called to eval 68 yo male with PMHx noted below. C/o infection to his left foot which began 1 week ago. Began as a cut between his 3rd & 4th digits. Patient states he was seen/eval/treated at [facility] 3 days ago then discharged from the ER on PO Clindamycin. Patient states that despite PO ABX the infection/pain progressed and now noticed his 4th toe turning black. Pain with movement of toes. Pain is 6/10 with ambulation and 4/10 rest pain. Also of note, patient isn't followed by Podiatry or Optho (h/o DM). While in the ED patient had a foot xray (wet read) which shows extensive vascular calcifications. No foreign body seen. No gas in soft tissue. No obvious signs of bony destruction/OM. Denies n/v/f/c, CP, SOB, or GAMEZ. PMHx: HTN. DM. ESRD on HD (2/2 nephrotoxic medication during left foot DM wound treatment 3 years ago) PSHx: LUE AVF 2017. Cataract surgery Home Meds: Allergies: NKDA ROS: CONSTITUTIONAL: Absent: diaphoresis, generalized weakness, malaise, loss of appetite, weight change CARDIOVASCULAR: Absent: syncope, irregular heart rate, lightheadedness, peripheral edema RESPIRATORY: Absent: cough, wheezing, stridor, hemoptysis GASTROINTESTINAL:Absent: abdominal pain, abdominal distension, constipation, melena, hematochezia GENITOURINARY: Absent: dysuria, frequency, urgency, hesitancy, hematuria, flank pain, genital pain MUSCULOSKELETAL: Absent: myalgia, arthralgia, joint swelling, back pain, neck pain SKIN: Absent: rash, itching, pallor HEMATOLOGIC/IMMUNOLOGIC: Absent: easy bleeding, easy bruising, lymphadenopathy NEUROLOGIC: Absent: headache, focal weakness, paresthesias, dizziness, unsteady gait, seizure, mental status changes, PSYCHIATRIC: Absent: anxiety, depression, suicidal or homicidal ideation, hallucinations. PE: GENERAL: alert. nad HEAD: nc. at. EYES: PERRL, sclera anicteric, conjunctiva clear. NECK: Normal ROM, supple without lymphadenopathy, JVD, or masses. LUNGS: cta bilat HEART: rrr ABDOMEN: Soft, nt. nd. MUSCULOSKELETAL: No CVAT UE: LUE AVF + thirll. 2+ pulses, warm, well-perfused. No cyanosis. Cap refill < 2 seconds. No peripheral edema. LE: RLE unremarkable. LLE warm, well-perfused. No calf tenderness. No peripheral edema. Dopplerable DP/PT. 3rd and 4th toe gangrene. No interdigital tissue maceration. Erythema from base of toes spreading proximal to dorsum of foot. Malodorous. No discharge. Negative crepitance. Negative bogginess/ fluctuance or bogginess. Plantar intact. Heels intact. NEUROLOGICAL: Normal speech, gait not observed. PSYCH: Cooperative. Good eye contact. Appropriate mood and affect. SKIN: Warm, dry, normal turgor, no rashes or lesions noted. Last Vital Signs Temp Pulse Resp BP Pulse Ox 98.6 F 65 18 162/72 96 05/15/18 07:40 05/15/18 07:40 05/15/18 07:40 05/15/18 07:40 05/15/18 05:00 CBC, BMP 05/14/18 21:24 05/14/18 21:24 INR, PTT INR 1.09 (0.83-1.09) 05/14/18 21:24 Problem List - Problems (1) Diabetic foot infection Assessment/Plan: 68yo male admitted with LLE foot infection x 1 week. Recently seen/eval/treated at [facility] with PO Clinda. Infection continues to get worse. He is afebrile. No leukocytosis. Not toxic appearing. Recommend Podiarty Consult Tight glycemic control IV abx LLE elevation Warm compress No vascular surgical intervention Cont care per medicine Re-consult Surgery PRN Above plan discussed with Dr. Paiz and agrees On behalf of Dr. Paiz, thank you for the opportunity to participate in your patient's care. Code(s): E11.628 - TYPE 2 DIABETES MELLITUS WITH OTHER SKIN COMPLICATIONS; L08.9 - LOCAL INFECTION OF THE SKIN AND SUBCUTANEOUS TISSUE, UNSP (2) AV fistula Assessment/Plan: HD via LUE AVF (--) Code(s): I77.0 - ARTERIOVENOUS FISTULA, ACQUIRED Visit type - Case Type Case Type: ED Admission - Emergency Emergency Visit: Yes ED Registration Date: 05/15/18 Care time: The patient presented to the Emergency Department on the above date and was hospitalized for further evaluation of their emergent condition. - New patient This patient is new to me today: Yes Date on this admission: 05/15/18
[2018-05-15] MEDS: CLOPIDOGREL BISULFATE 75 MG TABLET (FP) PO SCH (09:46)
[2018-05-15] MEDS: ASPIRIN COATED 81 MG TABLET.EC PO SCH (09:46)
[2018-05-15] MEDS: FUROSEMIDE 40 MG TABLET (FP) PO SCH (09:47)
[2018-05-15] MEDS: oxyCODONE HCL 5 MG TABLET PO PRN (11:23)
[2018-05-15] MEDS ORDERED: INSULIN (NOVOLOG) ASPART 100 UNITS/ML 10ML VIAL ONE ×2 (11:28→11:34)
[2018-05-15] MEDS ORDERED: PT OWN MED DRAWER 7, Y5N ONE (11:33)
--- NOTE | 2018-05-15 11:49 | EKG ---
Test Reason : Blood Pressure : / mmHG Vent. Rate : 057 BPM Atrial Rate : 057 BPM P-R Int : 176 ms QRS Dur : 100 ms QT Int : 486 ms P-R-T Axes : 051 001 094 degrees QTc Int : 473 ms SINUS BRADYCARDIA POSSIBLE LEFT ATRIAL ENLARGEMENT NONSPECIFIC ST AND T WAVE ABNORMALITY PROLONGED QT ABNORMAL ECG WHEN COMPARED WITH ECG OF 17-JAN-2018 23:19, NONSPECIFIC T WAVE ABNORMALITY NO LONGER EVIDENT IN INFERIOR LEADS NONSPECIFIC T WAVE ABNORMALITY HAS REPLACED INVERTED T WAVES IN LATERAL LEADS Confirmed by NINFA AYERS MD ([id number]) on 05/15/2018 11:49:05 AM Referred By: Confirmed By:NINFA AYERS MD
--- NOTE | 2018-05-15 12:39 | PN ---
Physical Exam: SUBJECTIVE: Patient seen and examined at bedside. Daughter present and served as cemetery keeper. Complaining of left foot pain. MEDICATION RECONCILIATION: Daughter showed medication vials. Patient is NOT on aspirin or Plavix. Called to both pharmacies patient has used and neither have any prescription for ASA and Plavix. These have been deleted from patient's home medication list. OBJECTIVE: Vital Signs Period Temp Pulse Resp BP Sys/Cole Pulse Ox Last 24 Hr 97.8 F-99.0 F 60-90 17-20 148-163/65-77 95-100 GENERAL: The patient is awake, drowsy but easily arousable. LUNGS: Bibasilar crackles HEART: Regular rate and rhythm, S1, S2 + murmur, rub or gallop. ABDOMEN: Soft, nontender, nondistended EXTREMITIES: left 4th toe dark, black tissue, pus between 3rd and 4th toes, ++ tender; left hallux ++tender, skin intact, normally pigmented NEUROLOGICAL: Cranial nerves II through XII grossly intact. Normal speech, gait not observed. Laboratory Results - last 24 hr 05/14/18 05/14/18 05/14/18 21:24 21:24 21:24 WBC 7.0 RBC 3.17 L Hgb 10.7 L Hct 32.1 L MCV 101.2 H MCH 33.7 MCHC 33.3 RDW 16.0 H Plt Count 253 D MPV 8.3 Absolute Neuts (auto) 5.3 Neutrophils % 76.9 Lymphocytes % 8.4 D Monocytes % 13.1 H Eosinophils % 1.0 Basophils % 0.6 Nucleated RBC % 0 PT with INR 12.30 INR 1.09 Sodium 137 Potassium 4.6 Chloride 98 Carbon Dioxide 28 Anion Gap 11 BUN 26 H Creatinine 5.1 H Creat Clearance w eGFR 11.27 POC Glucometer Random Glucose 179 H D Calcium 9.1 Total Bilirubin 0.4 AST 20 D ALT 28 D Alkaline Phosphatase 371 H Total Protein 7.3 Albumin 3.3 L 05/15/18 05/15/18 06:20 11:25 WBC RBC Hgb Hct MCV MCH MCHC RDW Plt Count MPV Absolute Neuts (auto) Neutrophils % Lymphocytes % Monocytes % Eosinophils % Basophils % Nucleated RBC % PT with INR INR Sodium Potassium Chloride Carbon Dioxide Anion Gap BUN Creatinine Creat Clearance w eGFR POC Glucometer 94 171 Random Glucose Calcium Total Bilirubin AST ALT Alkaline Phosphatase Total Protein Albumin Active Medications Generic Name Dose Route Start Last Admin Trade Name Freq PRN Reason Stop Dose Admin Acetaminophen 650 mg 05/15/18 11:00 Tylenol - PO Q6H PRN PAIN LEVEL 1-5 Aspirin 81 mg 05/15/18 10:00 05/15/18 09:46 Ecotrin - PO 81 mg DAILY CHUCKY Administration Heparin Sodium (Porcine) 5,000 unit 05/15/18 06:00 05/15/18 06:27 Heparin - SQ 5,000 unit TID CHUCKY Administration Hydralazine HCl 50 mg 05/15/18 14:00 Apresoline - PO TID CHUCKY Piperacillin Sod/Tazobactam 50 mls @ 100 mls/hr 05/15/18 18:00 Sod 2.25 gm/ Dextrose IVPB Q8H-IV CHUCKY Protocol Insulin Aspart 1 vial 05/15/18 07:00 05/15/18 11:31 Novolog Vial Sliding Scale - SQ 2 units ACHS CHUCKY Administration Protocol Oxycodone HCl 5 mg 05/15/18 11:00 05/15/18 11:23 Roxicodone - PO 5 mg Q6H PRN Administration PAIN LEVEL 6-10 ASSESSMENT/PLAN 68 year-old male with a PMH significant for HTN, NIDDM, and ESRD on HD (M,W,F) admitted with left toe gangrene. Left 4th toe gangrene --MRI pending --CTA with runoff tomorrow --continue Zosyn (day #2) --ID, vascular, and podiatry following ESRD on HD (M,W,F) --HD tomorrow after CTA --renal following Hypertension --continue hydralazine, nifedipine Visit type - Emergency Visit Emergency Visit: Yes ED Registration Date: 05/15/18 Care time: The patient presented to the Emergency Department on the above date and was hospitalized for further evaluation of their emergent condition. - New Patient This patient is new to me today: Yes Date on this admission: 05/16/18 - Critical Care Critical Care patient: No
[2018-05-15] MEDS: hydrALAZINE HCL 50 MG TABLET (FP) PO SCH ×2 (13:38→21:08)
--- NOTE | 2018-05-15 15:04 | PN ---
Progress Note (short form) - Note Progress Note: Vascular Surgery Pt seen and examined. left toe gangrene after injury. No palpable pulses. Will order CTA for erik morning to look at runoff into foot. Pt then can go to HD. Kel Paiz DO
--- NOTE | 2018-05-15 17:15 | CONSULT ---
Consult Consult Specialty:: Nephrology Reason for Consultation:: ESRD - History of Present Illness Chief Complaint: left toe infection History of Present Illness: Pt is a 68 year old male with pmhx of ESRD, HTN and DM who presents to the ER with left 4th toe infection. He says that it started about a week ago. The toe appears gangrenous. He is on HD and is on a MWF schedule. He last went to HD yesterday. He denies shortness of breath. He denies fevers or chills. He is going for CTA tomorrow. He is due for HD tomorrow. - History Source History Provided By: Patient, Medical Record - Past Medical History Cardio/Vascular: Yes: HTN Renal/: Yes: Renal Failure, Hemodialysis Endocrine: Yes: Diabetes Mellitus Additional Medical History: DM - Alcohol/Substance Use Hx Alcohol Use: No - Smoking History Smoking history: Never smoked Have you smoked in the past 12 months: No - Social History ADL: Independent Home Medications - Allergies Allergies/Adverse Reactions: Allergies Allergy/AdvReac Type Severity Reaction Status Date / Time No Known Allergies Allergy Verified 05/14/18 19:30 - Home Medications Home Medications: Ambulatory Orders Furosemide [Lasix -] 40 mg PO DAILY #30 tablet 04/27/16 Aspirin [Ecotrin] 81 mg PO DAILY 12/06/16 Clopidogrel Bisulfate [Plavix -] 75 mg PO DAILY 12/06/16 Hydralazine HCl 50 mg PO TID 01/17/18 Hydralazine HCl 50 mg PO TID #42 tablet 01/18/18 Family Disease History - Family Disease History Family History: Denies Review of Systems - Review of Systems Constitutional: reports: No Symptoms Eyes: reports: No Symptoms HENT: reports: No Symptoms Neck: reports: No Symptoms Cardiovascular: reports: No Symptoms Respiratory: reports: No Symptoms Gastrointestinal: reports: No Symptoms Genitourinary: reports: No Symptoms Musculoskeletal: reports: Other (toe infection) Neurological: reports: No Symptoms Endocrine: reports: No Symptoms Hematology/Lymphatic: reports: No Symptoms Psychiatric: reports: No Symptoms Physical Exam Vital Signs: Vital Signs Temperature 98.6 F 05/15/18 15:05 Pulse Rate 62 05/15/18 15:05 Respiratory Rate 18 05/15/18 15:05 Blood Pressure 150/72 05/15/18 15:05 O2 Sat by Pulse Oximetry (%) 98 05/15/18 11:00 Constitutional: Yes: Calm Eyes: Yes: Conjunctiva Clear HENT: Yes: Atraumatic Neck: Yes: Supple Cardiovascular: Yes: S1, S2 Respiratory: Yes: CTA Bilaterally Gastrointestinal: Yes: Soft Renal/: Yes: WNL Musculoskeletal: Yes: Other (left toe gangerne) Edema: No Neurological: Yes: Oriented Psychiatric: Yes: Oriented Labs: CBC, BMP 05/14/18 21:24 05/14/18 21:24 Imaging - Results Chest X-ray: Report Reviewed Problem List - Problems (1) ESRD (end stage renal disease) Code(s): N18.6 - END STAGE RENAL DISEASE (2) Diabetes Code(s): E11.9 - TYPE 2 DIABETES MELLITUS WITHOUT COMPLICATIONS Qualifiers: Diabetes mellitus type: type 2 Diabetes mellitus alf insulin use: without director retirement use Diabetes mellitus complication detail: with chronic kidney disease Chronic kidney disease stage: stage 5, not on chronic dialysis (3) Hypertension Code(s): I10 - ESSENTIAL (PRIMARY) HYPERTENSION Qualifiers: Assessment/Plan Current Medications Generic Name Dose Route Start Last Admin Trade Name Freq PRN Reason Stop Dose Admin Acetaminophen 650 mg 05/15/18 11:00 Tylenol - PO Q6H PRN PAIN LEVEL 1-5 Aspirin 81 mg 05/15/18 10:00 05/15/18 09:46 Ecotrin - PO 81 mg DAILY CHUCKY Administration Clopidogrel Bisulfate 75 mg 05/15/18 10:00 05/15/18 09:46 Plavix - PO 75 mg DAILY CHUCKY Administration Furosemide 40 mg 05/15/18 10:00 05/15/18 09:47 Lasix - PO 40 mg DAILY CHUCKY Administration Heparin Sodium (Porcine) 5,000 unit 05/15/18 06:00 05/15/18 13:38 Heparin - SQ 5,000 unit TID CHUCKY Administration Hydralazine HCl 50 mg 05/15/18 14:00 05/15/18 13:38 Apresoline - PO 50 mg TID CHUCKY Administration Piperacillin Sod/Tazobactam 50 mls @ 100 mls/hr 05/15/18 18:00 Sod 2.25 gm/ Dextrose IVPB Q8H-IV CHUCKY Protocol Insulin Aspart 1 vial 05/15/18 07:00 05/15/18 11:31 Novolog Vial Sliding Scale - SQ 2 units ACHS CHUCKY Administration Protocol Oxycodone HCl 5 mg 05/15/18 11:00 05/15/18 11:23 Roxicodone - PO 5 mg Q6H PRN Administration PAIN LEVEL 6-10 Impression 1. ESRD on HD 2. anemia 3. DM 4. HTN 5. toe infection/gangrene Plan - HD tomorrow - cta before hd - vascular input appreciated - avf 3:30 400 abf - epogen 10,000 for anemia
[2018-05-15] MEDS ORDERED: SODIUM CHLORIDE 250 ML IV PRN (17:17)
--- NOTE | 2018-05-15 17:39 | CONSULT ---
Consult - text type - Consultation Consultation Note: Patient seen for gangrenous 4th toe. Patient states it has been that way for a month. vss, Tmax 97.7 +gangarene 4th toe left, +decreased nvs, -drainage, -mal odor, +dry gangarene gangarene 4th toe pvd Awaiting vascular recommendations. Will decide tx plan once vascular eval done including CTA. Will follow. Post op shoe left.
[2018-05-15] MEDS ORDERED: PIPERACILLIN/TAZOB 2.25 GM 2.25 GM in DEXTROSE 5%-WATER - 50 ML IVPB SCH (18:00)
[2018-05-15] MEDS ORDERED: PIPERACILLIN/TAZOBACTAM 2.25 GM VIAL IVPB ONE (20:45)
[2018-05-15] MEDS ORDERED: DEXTROSE 5%-WATER 100 ML IVPB ONE (20:46)
[2018-05-15] MEDS: PIPERACILLIN/TAZOB 2.25 GM 2.25 GM in DEXTROSE 5%-WATER 100 ML IVPB SCH (21:07)
[2018-05-16] MEDS ORDERED: PIPERACILLIN/TAZOBACTAM 2.25 GM VIAL IVPB ONE ×3 (01:22→17:02)
[2018-05-16] MEDS ORDERED: DEXTROSE 5%-WATER 100 ML IVPB ONE ×3 (01:22→17:03)
[2018-05-16] MEDS: PIPERACILLIN/TAZOB 2.25 GM 2.25 GM in DEXTROSE 5%-WATER 100 ML IVPB SCH ×3 (01:48→18:07)
[2018-05-16] MEDS: hydrALAZINE HCL 50 MG TABLET (FP) PO SCH ×4 (06:13→21:47)
[2018-05-16] MEDS: HEPARIN NA (PORCINE) 5,000 UNITS/ML 1ML VIAL SQ SCH ×3 (06:13→21:47)
[2018-05-16] MEDS: INSULIN SLIDING SCALE (NOVOLOG) 1 VIAL SQ SCH ×4 (06:16→21:47)
--- NOTE | 2018-05-16 08:05 | PN ---
Physical Exam: SUBJECTIVE: Patient seen and examined at bedside. Has no left foot or toe pain today. OBJECTIVE: Vital Signs Period Temp Pulse Resp BP Sys/Cole Pulse Ox Last 24 Hr 97.7 F-99.4 F 62-67 18-18 150-192/69-81 98-100 GENERAL: The patient is awake, alert, oriented LUNGS: Bibasilar crackles HEART: Regular rate and rhythm, S1, S2 + murmur, rub or gallop. ABDOMEN: Soft, nontender, nondistended EXTREMITIES: left 4th toe dark, black tissue, not as tender, no pus seen today NEUROLOGICAL: Cranial nerves II through XII grossly intact. Normal speech, gait not observed. CBCD WBC 7.0 K/mm3 (4.0-10.0) 05/14/18 21:24 RBC 3.17 M/mm3 (4.00-5.60) L 05/14/18 21:24 Hgb 10.7 GM/dL (11.7-16.9) L 05/14/18 21:24 Hct 32.1 % (35.4-49) L 05/14/18 21:24 MCV 101.2 fl (80-96) H 05/14/18 21:24 MCHC 33.3 g/dl (32.0-35.9) 05/14/18 21:24 RDW 16.0 % (11.9-15.9) H 05/14/18 21:24 Plt Count 253 K/MM3 (134-434) D 05/14/18 21:24 MPV 8.3 fl (7.5-11.1) 05/14/18 21:24 CMP Sodium 137 mmol/L (136-145) 05/14/18 21:24 Potassium 4.6 mmol/L (3.5-5.1) 05/14/18 21:24 Chloride 98 mmol/L (98-107) 05/14/18 21:24 Carbon Dioxide 28 mmol/L (21-32) 05/14/18 21:24 Anion Gap 11 MMOL/L (8-16) 05/14/18 21:24 BUN 26 mg/dL (7-18) H 05/14/18 21:24 Creatinine 5.1 mg/dL (0.7-1.3) H 05/14/18 21:24 Creat Clearance w eGFR 11.27 (>60) 05/14/18 21:24 Calcium 9.1 mg/dL (8.5-10.1) 05/14/18 21:24 Total Bilirubin 0.4 mg/dL (0.2-1.0) 05/14/18 21:24 AST 20 U/L (15-37) D 05/14/18 21:24 ALT 28 U/L (12-78) D 05/14/18 21:24 Alkaline Phosphatase 371 U/L (45-117) H 05/14/18 21:24 Total Protein 7.3 g/dl (6.4-8.2) 05/14/18 21:24 Albumin 3.3 g/dl (3.4-5.0) L 05/14/18 21:24 Laboratory Results - last 24 hr 05/15/18 05/15/18 05/15/18 11:25 17:41 21:12 POC Glucometer 171 225 146 05/16/18 06:15 POC Glucometer 168 Current Medications Generic Name Dose Route Start Last Admin Trade Name Freq PRN Reason Stop Dose Admin Acetaminophen 650 mg 05/15/18 11:00 Tylenol - PO Q6H PRN PAIN LEVEL 1-5 Aspirin 81 mg 05/15/18 10:00 05/16/18 09:46 Ecotrin - PO 81 mg DAILY CHUCKY Administration Calcitriol 0.25 mcg 05/17/18 10:00 Rocaltrol - PO DAILY CHUCKY Chlorthalidone 25 mg 05/17/18 10:00 [place] - PO DAILY [facility] Clopidogrel Bisulfate 75 mg 05/15/18 10:00 05/15/18 09:46 Plavix - PO 75 mg DAILY CHUCKY Administration Furosemide 40 mg 05/15/18 10:00 05/16/18 09:46 Lasix - PO 40 mg DAILY CHUCKY Administration Heparin Sodium (Porcine) 5,000 unit 05/15/18 06:00 05/16/18 14:01 Heparin - SQ Not Given TID CHUCKY Hydralazine HCl 50 mg 05/15/18 14:00 05/16/18 15:53 Apresoline - PO 50 mg TID CHUCKY Administration Sodium Chloride 250 mls @ 3,000 mls/hr 05/15/18 17:17 Normal Saline - IV 05/16/18 17:17 PRN PRN Hypotension during Dialysis Piperacillin Sod/Tazobactam 100 mls @ 100 mls/hr 05/15/18 19:15 05/16/18 09: 46 Sod 2.25 gm/ Dextrose IVPB 100 mls/hr Q8H-IV CHUCKY Administration Protocol Insulin Aspart 1 vial 05/15/18 07:00 05/16/18 13:56 Novolog Vial Sliding Scale - SQ Not Given ACHS CHUCKY Protocol Nifedipine 60 mg 05/16/18 22:00 Procardia Xl - PO BID CHUCKY Oxycodone HCl 5 mg 05/15/18 11:00 05/16/18 09:44 Roxicodone - PO 5 mg Q6H PRN Administration PAIN LEVEL 6-10 Ranitidine HCl 150 mg 05/16/18 16:30 Zantac - PO DAILY CHUCKY ASSESSMENT/PLAN 68 year-old male with a PMH significant for HTN, NIDDM, and ESRD on HD (M,W,F) admitted with left toe gangrene. Left 4th toe gangrene Osteomyelitis --MRI: +osteo --CTA with runoff done, pending dictation --toe culture pending; continue empiric Zosyn (day #3) --toe will need amputation; timing will depend upon vascular assessment after CTA resulted --will need PICC and long-term antibiotics --ID, vascular, and podiatry following ESRD on HD (M,W,F) --HD today --hold home chlorthalidone Hypertension --continue hydralazine, nifedipine FEN Fluids: PO intake adequate Electrolytes: replete as indicated Nutrition: diabetic sodium diet DVT prophylaxis: subq heparin Dispo: continues to require inpatient care. Full code. Visit type - Emergency Visit Emergency Visit: Yes ED Registration Date: 05/15/18 Care time: The patient presented to the Emergency Department on the above date and was hospitalized for further evaluation of their emergent condition. - New Patient This patient is new to me today: No - Critical Care Critical Care patient: No
[2018-05-16] MEDS: oxyCODONE HCL 5 MG TABLET PO PRN (09:44)
[2018-05-16] MEDS: FUROSEMIDE 40 MG TABLET (FP) PO SCH (09:46)
[2018-05-16] MEDS: ASPIRIN COATED 81 MG TABLET.EC PO SCH (09:46)
--- NOTE | 2018-05-16 15:02 | PN ---
Progress Note, Physician History of Present Illness: Pt seen and examined at bedside. He is awake and alert. He denies shortness of breath. - Current Medication List Current Medications: Active Medications Acetaminophen (Tylenol -) 650 mg PO Q6H PRN PRN Reason: PAIN LEVEL 1-5 Aspirin (Ecotrin -) 81 mg PO DAILY PENDING SALE TO [facility] Last Admin: 05/16/18 09:46 Dose: 81 mg Clopidogrel Bisulfate (Plavix -) 75 mg PO DAILY [facility]ENDING [facility] TO [facility] Last Admin: 05/15/18 09:46 Dose: 75 mg Epoetin Thomas (Epogen -) 10,000 unit IVPUSH ONCE ONE Stop: 05/16/18 17:18 Furosemide (Lasix -) 40 mg PO DAILY [facility]END[facility] TO [facility] Last Admin: 05/16/18 09:46 Dose: 40 mg Heparin Sodium (Porcine) (Heparin -) 5,000 unit SQ TID [facility]END[facility] TO [facility] Last Admin: 05/16/18 14:01 Dose: Not Given Hydralazine HCl (Apresoline -) 50 mg PO TID PENDING SALE TO [facility] Last Admin: 05/16/18 14:00 Dose: Not Given Sodium Chloride (Normal Saline -) 250 mls @ 3,000 mls/hr IV PRN PRN PRN Reason: Hypotension during Dialysis Stop: 05/16/18 17:17 Piperacillin Sod/Tazobactam (Sod 2.25 gm/ Dextrose) 100 mls @ 100 mls/hr IVPB Q8H-IV PENDING SALE TO [facility]; Protocol Last Admin: 05/16/18 09:46 Dose: 100 mls/hr Insulin Aspart (Novolog Vial Sliding Scale -) 1 vial SQ ACHS PENDING SALE TO [facility]; Protocol Last Admin: 05/16/18 13:56 Dose: Not Given Oxycodone HCl (Roxicodone -) 5 mg PO Q6H PRN PRN Reason: PAIN LEVEL 6-10 Last Admin: 05/16/18 09:44 Dose: 5 mg - Objective Vital Signs: Vital Signs Temperature 98.1 F 05/16/18 10:00 Pulse Rate 72 05/16/18 10:00 Respiratory Rate 18 05/16/18 10:00 Blood Pressure 187/81 05/16/18 10:00 O2 Sat by Pulse Oximetry (%) 99 05/16/18 09:00 Constitutional: Yes: Calm Eyes: Yes: Conjunctiva Clear HENT: Yes: Atraumatic Neck: Yes: Supple Cardiovascular: Yes: S1, S2 Respiratory: Yes: CTA Bilaterally Gastrointestinal: Yes: Soft Musculoskeletal: Yes: WNL Edema: No Wound/Incision: Yes: Open to air Psychiatric: Yes: Oriented Labs: CBC, BMP 05/14/18 21:24 05/14/18 21:24 INR, PTT INR 1.09 (0.83-1.09) 05/14/18 21:24 Problem List - Problems (1) ESRD (end stage renal disease) Code(s): N18.6 - END STAGE RENAL DISEASE (2) Diabetes Code(s): E11.9 - TYPE 2 DIABETES MELLITUS WITHOUT COMPLICATIONS Qualifiers: Diabetes mellitus type: type 2 Diabetes mellitus medical videographer insulin use: without medical videographer use Diabetes mellitus complication detail: with chronic kidney disease Chronic kidney disease stage: stage 5, not on chronic dialysis (3) Hypertension Code(s): I10 - ESSENTIAL (PRIMARY) HYPERTENSION Qualifiers: Assessment/Plan Current Medications Generic Name Dose Route Start Last Admin Trade Name Freq PRN Reason Stop Dose Admin Acetaminophen 650 mg 05/15/18 11:00 Tylenol - PO Q6H PRN PAIN LEVEL 1-5 Aspirin 81 mg 05/15/18 10:00 05/16/18 09:46 Ecotrin - PO 81 mg DAILY CHUCKY Administration Clopidogrel Bisulfate 75 mg 05/15/18 10:00 05/15/18 09:46 Plavix - PO 75 mg DAILY CHUCKY Administration Epoetin Thomas 10,000 unit 05/16/18 17:17 Epogen - IVPUSH 05/16/18 17:18 ONCE ONE Furosemide 40 mg 05/15/18 10:00 05/16/18 09:46 Lasix - PO 40 mg DAILY CHUCKY Administration Heparin Sodium (Porcine) 5,000 unit 05/15/18 06:00 05/16/18 14:01 Heparin - SQ Not Given TID CHUCKY Hydralazine HCl 50 mg 05/15/18 14:00 05/16/18 14:00 Apresoline - PO Not Given TID CHUCKY Sodium Chloride 250 mls @ 3,000 mls/hr 05/15/18 17:17 Normal Saline - IV 05/16/18 17:17 PRN PRN Hypotension during Dialysis Piperacillin Sod/Tazobactam 100 mls @ 100 mls/hr 05/15/18 19:15 05/16/18 09: 46 Sod 2.25 gm/ Dextrose IVPB 100 mls/hr Q8H-IV CHUCKY Administration Protocol Insulin Aspart 1 vial 05/15/18 07:00 05/16/18 13:56 Novolog Vial Sliding Scale - SQ Not Given ACHS PENDING SALE TO [facility] Protocol Oxycodone HCl 5 mg 05/15/18 11:00 05/16/18 09:44 Roxicodone - PO 5 mg Q6H PRN Administration PAIN LEVEL 6-10 Impression 1. ESRD on HD 2. anemia 3. DM 4. HTN 5. toe infection/gangrene Plan - HD today - follow up ct scan results - cont wound care - vascular folow up - avf 3:30 400 abf - epogen 10,000 for anemia
[2018-05-16] MEDS ORDERED: EPOETIN ALFA 10,000 UNIT/1 ML VIAL IVPUSH ONE (15:15)
[2018-05-16 15:55] LABS: HEMOGLOBIN 10.3 GM/dL (11.7-16.9); MCH 34.2 pg (25.7-33.7); MCHC 34.3 g/dl (32.0-35.9); MEAN CELL VOLUME 99.9 fl (80-96); MEAN PLT VOLUME 8.7 fl (7.5-11.1); PLATELET COUNT 278 K/MM3 (134-434); RBC 3.01 M/mm3 (4.00-5.60); RDW 16.1 % (11.9-15.9)
[2018-05-16 16:07] LABS: ANION GAP 10 MMOL/L (8-16); BLOOD UREA NITROGEN 30 mg/dL (7-18); CALCIUM 8.7 mg/dL (8.5-10.1); CHLORIDE 97 mmol/L (98-107); CO2 29 mmol/L (21-32); CREATININE 5.6 mg/dL (0.7-1.3); GLUCOSE,RANDOM 127 mg/dL (74-106); POTASSIUM 4.4 mmol/L (3.5-5.1); SODIUM 136 mmol/L (136-145)
--- NOTE | 2018-05-16 17:10 | PN ---
Progress Note (short form) - Note Progress Note: Vascular Surgery CTA done. Awaiting official read Left toe gangrene . Might need angiogram. Initiate clearance in case pt needs angiogram Kel Paiz DO
--- NOTE | 2018-05-16 17:51 | PN ---
Progress Note (short form) - Note Progress Note: ID Consult dictated Gangrene L 4th toe ESRD Empiric zosyn / vancomycin adjusted for renal failure
[2018-05-16] MEDS ORDERED: VANCOMYCIN 1 GM PREMIX - 1 GM/200 ML BAG IVPB ONE (18:00)
[2018-05-16] MEDS: RANITIDINE HCL 150 MG TABLET (FP) PO SCH (18:07)
--- NOTE | 2018-05-16 19:05 | CONS ---
DATE OF CONSULTATION: DATE OF DICTATION: 05/16/2018 INFECTIOUS DISEASE CONSULTATION HISTORY OF PRESENT ILLNESS: The patient is a 68-year-old male who was evaluated for gangrene of the left 4th toe. History was obtained from the chart, as he is primarily Greenlandic speaking. The patient had developed a cut between the 3rd and 4th toe approximately 1 week ago. He was seen in the emergency room at [facility] where he was evaluated and prescribed oral clindamycin. Despite taking the antibiotic, he developed progressively worsening gangrene of the 4th toe. He presented to the emergency room at [facility] and is now admitted. PAST MEDICAL HISTORY: Positive for end-stage renal disease on hemodialysis. Hypertension. Diabetes. PAST SURGICAL HISTORY: Status post left upper extremity AV fistula and cataract surgery. ALLERGIES: No known allergies. LABORATORY DATA: White count 8.0, hematocrit 30, platelets 278. BUN 30, creatinine 5.6. Cultures are pending. PHYSICAL EXAMINATION: General: On exam, he is awake, in no acute distress. Vital signs: Temperature 97.5, blood pressure 145/70, pulse 78 regular, respirations 20 per minute. HEENT: Sclerae anicteric. Cardiovascular: Heart sounds S1, S2. Lungs: Clear. Abdomen: Soft, nontender. Extremities: Examination of the left foot, the left 4th toe is necrotic. There is foul odor. There is no drainage noted. IMPRESSION: 1. Gangrene of the left fourth toe. 2. Cellulitis of the left foot. 3. End-stage renal disease on hemodialysis. Await cultures. Empiric vancomycin and Zosyn adjusted for renal failure. Podiatry and vascular surgery evaluation. Thank you for the kind referral. AKIL PANTOJA M.D. [id number]
[2018-05-16] MEDS: ACETAMINOPHEN 325 MG TABLET (FP) PO PRN (20:02)
[2018-05-16] MEDS ORDERED: INSULIN (NOVOLOG) ASPART 100 UNITS/ML 10ML VIAL ONE (21:34)
[2018-05-16] MEDS: NIFEdipine E.R 60 MG TABLET (UD) PO SCH (21:47)
[2018-05-17] MEDS: oxyCODONE HCL 5 MG TABLET PO PRN (00:23)
[2018-05-17] MEDS ORDERED: PIPERACILLIN/TAZOBACTAM 2.25 GM VIAL IVPB ONE ×3 (01:09→16:30)
[2018-05-17] MEDS ORDERED: DEXTROSE 5%-WATER 100 ML IVPB ONE ×3 (01:10→16:30)
[2018-05-17] MEDS: PIPERACILLIN/TAZOB 2.25 GM 2.25 GM in DEXTROSE 5%-WATER 100 ML IVPB SCH ×3 (03:07→17:29)
[2018-05-17] MEDS: HEPARIN NA (PORCINE) 5,000 UNITS/ML 1ML VIAL SQ SCH ×3 (05:31→21:20)
[2018-05-17] MEDS: hydrALAZINE HCL 50 MG TABLET (FP) PO SCH ×3 (05:31→21:19)
[2018-05-17] MEDS: INSULIN SLIDING SCALE (NOVOLOG) 1 VIAL SQ SCH ×4 (06:22→21:23)
[2018-05-17] MEDS ORDERED: INSULIN (NOVOLOG) ASPART 100 UNITS/ML 10ML VIAL ONE ×2 (06:46→11:27)
[2018-05-17 08:06] LABS: BASO % 0.8 % (0-2.0); EOS % 1.7 % (0-4.5); HEMATOCRIT 33.4 % (35.4-49); HEMOGLOBIN 11.3 GM/dL (11.7-16.9); LYMPH % 12.8 % (8-40); MCH 33.9 pg (25.7-33.7); MCHC 33.7 g/dl (32.0-35.9); MEAN CELL VOLUME 100.5 fl (80-96); MEAN PLT VOLUME 7.9 fl (7.5-11.1); MONO % 12.8 % (3.8-10.2); NEUT % 71.9 % (42.8-82.8); PLATELET COUNT 286 K/MM3 (134-434); RBC 3.33 M/mm3 (4.00-5.60); RDW 15.4 % (11.9-15.9); WHITE BLOOD COUNT 6.7 K/mm3 (4.0-10.0)
[2018-05-17 08:54] LABS: CHLORIDE 94 mmol/L (98-107); POTASSIUM 4.3 mmol/L (3.5-5.1); SODIUM 136 mmol/L (136-145)
[2018-05-17 09:00] LABS: ALBUMIN 3.2 g/dl (3.4-5.0); ALK PHOS 287 U/L (45-117); ANION GAP 11 MMOL/L (8-16); BILIRUBIN,TOTAL 0.5 mg/dL (0.2-1.0); BLOOD UREA NITROGEN 20 mg/dL (7-18); CO2 31 mmol/L (21-32); CREATININE 5.2 mg/dL (0.7-1.3); GLUCOSE,RANDOM 120 mg/dL (74-106); MAGNESIUM 2.2 mg/dL (1.8-2.4); SGOT/AST 20 U/L (15-37); SGPT/ALT 22 U/L (12-78); TOT PROT 7.5 g/dl (6.4-8.2)
[2018-05-17] MEDS ORDERED: CHLORTHALIDONE 25 MG TABLET PO SCH (10:00)
[2018-05-17] MEDS: ASPIRIN COATED 81 MG TABLET.EC PO SCH (10:45)
[2018-05-17] MEDS: RANITIDINE HCL 150 MG TABLET (FP) PO SCH (10:45)
[2018-05-17] MEDS: FUROSEMIDE 40 MG TABLET (FP) PO SCH (10:45)
[2018-05-17] MEDS: CALCITRIOL 0.25 MCG CAPSULE (FP) PO SCH (10:45)
[2018-05-17] MEDS: NIFEdipine E.R 60 MG TABLET (UD) PO SCH ×2 (10:46→21:19)
--- NOTE | 2018-05-17 14:24 | PN ---
Progress Note, Physician History of Present Illness: Pt seen and examined at bedside. He is awake and alert. He denies shortness of breath. - Current Medication List Current Medications: Active Medications Acetaminophen (Tylenol -) 650 mg PO Q6H PRN PRN Reason: PAIN LEVEL 1-5 Last Admin: 05/16/18 20:02 Dose: 650 mg Aspirin (Ecotrin -) 81 mg PO DAILY [facility] Last Admin: 05/17/18 10:45 Dose: 81 mg Calcitriol (Rocaltrol -) 0.25 mcg PO DAILY [facility] Last Admin: 05/17/18 10:45 Dose: 0.25 mcg Clopidogrel Bisulfate (Plavix -) 75 mg PO DAILY [facility] Last Admin: 05/15/18 09:46 Dose: 75 mg Furosemide (Lasix -) 40 mg PO DAILY [facility] Last Admin: 05/17/18 10:45 Dose: 40 mg Heparin Sodium (Porcine) (Heparin -) 5,000 unit SQ TID [facility] Last Admin: 05/17/18 05:31 Dose: 5,000 unit Hydralazine HCl (Apresoline -) 50 mg PO TID [facility] Last Admin: 05/17/18 05:31 Dose: 50 mg Piperacillin Sod/Tazobactam (Sod 2.25 gm/ Dextrose) 100 mls @ 100 mls/hr IVPB Q8H-IV [facility]; Protocol Last Admin: 05/17/18 10:45 Dose: 100 mls/hr Insulin Aspart (Novolog Vial Sliding Scale -) 1 vial SQ ACHS [facility]; Protocol Last Admin: 05/17/18 11:30 Dose: 2 units Nifedipine (Procardia Xl -) 60 mg PO BID [facility] Last Admin: 05/17/18 10:46 Dose: 60 mg Oxycodone HCl (Roxicodone -) 5 mg PO Q6H PRN PRN Reason: PAIN LEVEL 6-10 Last Admin: 05/17/18 00:23 Dose: 5 mg Ranitidine HCl (Zantac -) 150 mg PO DAILY [facility] Last Admin: 05/17/18 10:45 Dose: 150 mg - Objective Vital Signs: Vital Signs Temperature 98 F 05/17/18 05:40 Pulse Rate 64 05/17/18 05:40 Respiratory Rate 18 05/17/18 05:40 Blood Pressure 152/70 05/17/18 05:40 O2 Sat by Pulse Oximetry (%) 96 05/16/18 23:55 Constitutional: Yes: Calm Eyes: Yes: Conjunctiva Clear HENT: Yes: Atraumatic Neck: Yes: Supple Cardiovascular: Yes: S1, S2 Respiratory: Yes: CTA Bilaterally Gastrointestinal: Yes: Soft Genitourinary: Yes: WNL Extremities: Yes: Other (toe gangrene) Edema: No Integumentary: Yes: Erythema Neurological: Yes: Oriented Psychiatric: Yes: Oriented Labs: CBC, BMP 05/17/18 06:20 05/17/18 06:20 INR, PTT INR 1.09 (0.83-1.09) 05/14/18 21:24 Problem List - Problems (1) ESRD (end stage renal disease) Code(s): N18.6 - END STAGE RENAL DISEASE (2) Diabetes Code(s): E11.9 - TYPE 2 DIABETES MELLITUS WITHOUT COMPLICATIONS Qualifiers: Diabetes mellitus type: type 2 Diabetes mellitus manager long term care insulin use: without retirement use Diabetes mellitus complication detail: with chronic kidney disease Chronic kidney disease stage: stage 5, not on chronic dialysis (3) Hypertension Code(s): I10 - ESSENTIAL (PRIMARY) HYPERTENSION Qualifiers: Assessment/Plan Current Medications Generic Name Dose Route Start Last Admin Trade Name Freq PRN Reason Stop Dose Admin Acetaminophen 650 mg 05/15/18 11:00 05/16/18 20:02 Tylenol - PO 650 mg Q6H PRN Administration PAIN LEVEL 1-5 Aspirin 81 mg 05/15/18 10:00 05/17/18 10:45 Ecotrin - PO 81 mg DAILY [facility] Administration Calcitriol 0.25 mcg 05/17/18 10:00 05/17/18 10:45 Rocaltrol - PO 0.25 mcg DAILY [facility] Administration Clopidogrel Bisulfate 75 mg 05/15/18 10:00 05/15/18 09:46 Plavix - PO 75 mg DAILY [facility] Administration Furosemide 40 mg 05/15/18 10:00 05/17/18 10:45 Lasix - PO 40 mg DAILY [facility] Administration Heparin Sodium (Porcine) 5,000 unit 05/15/18 06:00 05/17/18 05:31 Heparin - SQ 5,000 unit TID [facility] Administration Hydralazine HCl 50 mg 05/15/18 14:00 05/17/18 05:31 Apresoline - PO 50 mg TID [facility] Administration Piperacillin Sod/Tazobactam 100 mls @ 100 mls/hr 05/15/18 19:15 05/17/18 10: 45 Sod 2.25 gm/ Dextrose IVPB 100 mls/hr Q8H-IV [facility] Administration Protocol Insulin Aspart 1 vial 05/15/18 07:00 05/17/18 11:30 Novolog Vial Sliding Scale - SQ 2 units ACHS [facility] Administration Protocol Nifedipine 60 mg 05/16/18 22:00 05/17/18 10:46 Procardia Xl - PO 60 mg BID [facility] Administration Oxycodone HCl 5 mg 05/15/18 11:00 05/17/18 00:23 Roxicodone - PO 5 mg Q6H PRN Administration PAIN LEVEL 6-10 Ranitidine HCl 150 mg 05/16/18 16:30 05/17/18 10:45 Zantac - PO 150 mg DAILY [facility] Administration Impression 1. ESRD on HD 2. anemia 3. DM 4. HTN 5. toe infection/gangrene Plan - next HD on Saturday - follow up CTA report - vascular input appreciated - cont wound care - avf 3:30 400 abf - epogen 10,000 for anemia
[2018-05-17] MEDS ORDERED: PT OWN MED DRAWER 7, Y5N ONE (16:34)
--- NOTE | 2018-05-17 17:10 | PN ---
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 - Current Medication List Current Medications: Active Medications Acetaminophen (Tylenol -) 650 mg PO Q6H PRN PRN Reason: PAIN LEVEL 1-5 Last Admin: 05/16/18 20:02 Dose: 650 mg Aspirin (Ecotrin -) 81 mg PO DAILY [facility] Last Admin: 05/17/18 10:45 Dose: 81 mg Calcitriol (Rocaltrol -) 0.25 mcg PO DAILY [facility] Last Admin: 05/17/18 10:45 Dose: 0.25 mcg Clopidogrel Bisulfate (Plavix -) 75 mg PO DAILY [facility] Last Admin: 05/15/18 09:46 Dose: 75 mg Furosemide (Lasix -) 40 mg PO DAILY [facility] Last Admin: 05/17/18 10:45 Dose: 40 mg Heparin Sodium (Porcine) (Heparin -) 5,000 unit SQ TID [facility] Last Admin: 05/17/18 15:08 Dose: 5,000 unit Hydralazine HCl (Apresoline -) 50 mg PO TID [facility] Last Admin: 05/17/18 15:08 Dose: 50 mg Piperacillin Sod/Tazobactam (Sod 2.25 gm/ Dextrose) 100 mls @ 100 mls/hr IVPB Q8H-IV [facility]; Protocol Last Admin: 05/17/18 10:45 Dose: 100 mls/hr Insulin Aspart (Novolog Vial Sliding Scale -) 1 vial SQ ACHS [facility]; Protocol Last Admin: 05/17/18 11:30 Dose: 2 units Nifedipine (Procardia Xl -) 60 mg PO BID [facility] Last Admin: 05/17/18 10:46 Dose: 60 mg Oxycodone HCl (Roxicodone -) 5 mg PO Q6H PRN PRN Reason: PAIN LEVEL 6-10 Last Admin: 05/17/18 00:23 Dose: 5 mg Ranitidine HCl (Zantac -) 150 mg PO DAILY [facility] Last Admin: 05/17/18 10:45 Dose: 150 mg - Objective Vital Signs: Vital Signs Temperature 98.6 F 05/17/18 14:47 Pulse Rate 67 05/17/18 14:47 Respiratory Rate 18 05/17/18 14:47 Blood Pressure 166/78 05/17/18 14:47 O2 Sat by Pulse Oximetry (%) 96 05/16/18 23:55 Wound/Incision: Yes: Other (gangarene 4th toe left with om) Labs: CBC, BMP 05/17/18 06:20 05/17/18 06:20 INR, PTT INR 1.09 (0.83-1.09) 05/14/18 21:24 - ....Imaging MRI: Report Reviewed Problem List - Problems (1) Gangrene Code(s): I96 - GANGRENE, NOT ELSEWHERE CLASSIFIED Assessment/Plan Gangarene 4th toe OM Discussed with Dr. Paiz. Awaiting vascular recommendation for further intervention on my part. present explained plan for possible intervention by vascular then I will continue intervention.
[2018-05-17] MEDS: ACETAMINOPHEN 325 MG TABLET (FP) PO PRN ×2 (17:26→22:58)
[2018-05-18] MEDS ORDERED: PIPERACILLIN/TAZOBACTAM 2.25 GM VIAL IVPB ONE ×3 (02:28→17:47)
[2018-05-18] MEDS ORDERED: DEXTROSE 5%-WATER 100 ML IVPB ONE ×3 (02:28→17:47)
[2018-05-18] MEDS: PIPERACILLIN/TAZOB 2.25 GM 2.25 GM in DEXTROSE 5%-WATER 100 ML IVPB SCH ×3 (02:47→17:49)
[2018-05-18] MEDS: oxyCODONE HCL 5 MG TABLET PO PRN (02:50)
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
[2018-05-18] MEDS: hydrALAZINE HCL 50 MG TABLET (FP) PO SCH ×3 (06:15→21:25)
[2018-05-18] MEDS: HEPARIN NA (PORCINE) 5,000 UNITS/ML 1ML VIAL SQ SCH ×3 (06:15→21:26)
[2018-05-18] MEDS: INSULIN SLIDING SCALE (NOVOLOG) 1 VIAL SQ SCH ×4 (06:17→21:27)
[2018-05-18] MEDS: CALCITRIOL 0.25 MCG CAPSULE (FP) PO SCH (10:02)
[2018-05-18] MEDS: ASPIRIN COATED 81 MG TABLET.EC PO SCH (10:02)
[2018-05-18] MEDS: RANITIDINE HCL 150 MG TABLET (FP) PO SCH (10:02)
[2018-05-18] MEDS: FUROSEMIDE 40 MG TABLET (FP) PO SCH (10:02)
[2018-05-18] MEDS: NIFEdipine E.R 60 MG TABLET (UD) PO SCH ×2 (10:03→21:26)
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
--- NOTE | 2018-05-18 12:59 | PN ---
Progress Note (short form) - Note Progress Note: Patient seen in bed. Son Isiah and his present. +gangarene 4th toe left, +om, +dry gangarene wbc=6.1 PVD Gangarene OM AWaiting possible vascular intervention. Continue abx. Will follow. Problem List - Problems (1) Gangrene Code(s): I96 - GANGRENE, NOT ELSEWHERE CLASSIFIED
[2018-05-18] MEDS ORDERED: INSULIN (NOVOLOG) ASPART 100 UNITS/ML 10ML VIAL ONE (13:19)
[2018-05-18] MEDS: ACETAMINOPHEN 325 MG TABLET (FP) PO PRN (13:25)
[2018-05-18] MEDS ORDERED: SODIUM CHLORIDE 250 ML IV PRN (15:25)
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
[2018-05-19] MEDS ORDERED: PT OWN MED DRAWER 7, Y5N ONE ×3 (00:58→10:26)
[2018-05-19] MEDS ORDERED: PIPERACILLIN/TAZOBACTAM 2.25 GM VIAL IVPB ONE ×4 (01:07→23:12)
[2018-05-19] MEDS ORDERED: DEXTROSE 5%-WATER 100 ML IVPB ONE ×4 (01:08→23:13)
[2018-05-19] MEDS: PIPERACILLIN/TAZOB 2.25 GM 2.25 GM in DEXTROSE 5%-WATER 100 ML IVPB SCH ×3 (01:11→17:36)
[2018-05-19] MEDS: INSULIN SLIDING SCALE (NOVOLOG) 1 VIAL SQ SCH ×4 (06:15→21:18)
[2018-05-19] MEDS: hydrALAZINE HCL 50 MG TABLET (FP) PO SCH ×4 (07:07→21:15)
[2018-05-19] MEDS: HEPARIN NA (PORCINE) 5,000 UNITS/ML 1ML VIAL SQ SCH ×3 (07:07→21:16)
[2018-05-19] MEDS: RANITIDINE HCL 150 MG TABLET (FP) PO SCH (10:33)
[2018-05-19] MEDS: ASPIRIN COATED 81 MG TABLET.EC PO SCH (10:33)
[2018-05-19] MEDS: CALCITRIOL 0.25 MCG CAPSULE (FP) PO SCH (10:33)
[2018-05-19] MEDS: NIFEdipine E.R 60 MG TABLET (UD) PO SCH ×3 (10:38→21:16)
[2018-05-19] MEDS: FUROSEMIDE 40 MG TABLET (FP) PO SCH ×2 (10:38→15:01)
--- NOTE | 2018-05-19 13:04 | PN ---
Progress Note, Physician History of Present Illness: Pt seen and examined at bedside. He is awake and alert. - Current Medication List Current Medications: Active Medications Acetaminophen (Tylenol -) 650 mg PO Q6H PRN PRN Reason: PAIN LEVEL 1-5 Last Admin: 05/18/18 13:25 Dose: 650 mg Aspirin (Ecotrin -) 81 mg PO DAILY [facility] Last Admin: 05/19/18 10:33 Dose: 81 mg Calcitriol (Rocaltrol -) 0.25 mcg PO DAILY [facility] Last Admin: 05/19/18 10:33 Dose: 0.25 mcg Clopidogrel Bisulfate (Plavix -) 75 mg PO DAILY [facility] Last Admin: 05/15/18 09:46 Dose: 75 mg Epoetin Thomas (Procrit -) 10,000 unit IVPUSH ONCE ONE Stop: 05/19/18 15:26 Furosemide (Lasix -) 40 mg PO DAILY [facility] Last Admin: 05/19/18 10:38 Dose: Not Given Heparin Sodium (Porcine) (Heparin -) 5,000 unit SQ TID [facility] Last Admin: 05/19/18 07:07 Dose: 5,000 unit Hydralazine HCl (Apresoline -) 50 mg PO TID [facility] Last Admin: 05/19/18 07:07 Dose: 50 mg Piperacillin Sod/Tazobactam (Sod 2.25 gm/ Dextrose) 100 mls @ 100 mls/hr IVPB Q8H-IV [facility]; Protocol Last Admin: 05/19/18 10:33 Dose: 100 mls/hr Sodium Chloride (Normal Saline -) 250 mls @ 3,000 mls/hr IV PRN PRN PRN Reason: Hypotension during Dialysis Stop: 05/19/18 15:25 Insulin Aspart (Novolog Vial Sliding Scale -) 1 vial SQ ACHS [facility]; Protocol Last Admin: 05/19/18 12:10 Dose: 2 units Nifedipine (Procardia Xl -) 60 mg PO BID [facility] Last Admin: 05/19/18 10:38 Dose: Not Given Oxycodone HCl (Roxicodone -) 5 mg PO Q6H PRN PRN Reason: PAIN LEVEL 6-10 Last Admin: 05/18/18 02:50 Dose: 5 mg Ranitidine HCl (Zantac -) 150 mg PO DAILY [facility] Last Admin: 05/19/18 10:33 Dose: 150 mg - Objective Vital Signs: Vital Signs Temperature 97.8 F 05/19/18 07:00 Pulse Rate 63 05/19/18 07:00 Respiratory Rate 20 05/19/18 09:00 Blood Pressure 189/68 05/19/18 07:00 O2 Sat by Pulse Oximetry (%) 93 L 05/19/18 09:00 Constitutional: Yes: Calm Eyes: Yes: Conjunctiva Clear HENT: Yes: Atraumatic Neck: Yes: Supple Cardiovascular: Yes: S1, S2 Gastrointestinal: Yes: Soft Genitourinary: Yes: WNL Musculoskeletal: Yes: WNL Edema: No Wound/Incision: Yes: Open to air Neurological: Yes: Oriented Psychiatric: Yes: Oriented Labs: CBC, BMP 05/17/18 06:20 05/17/18 06:20 INR, PTT INR 1.09 (0.83-1.09) 05/14/18 21:24 Problem List - Problems (1) ESRD (end stage renal disease) Code(s): N18.6 - END STAGE RENAL DISEASE (2) Diabetes Code(s): E11.9 - TYPE 2 DIABETES MELLITUS WITHOUT COMPLICATIONS Qualifiers: Diabetes mellitus type: type 2 Diabetes mellitus care home insulin use: without care home use Diabetes mellitus complication detail: with chronic kidney disease Chronic kidney disease stage: stage 5, not on chronic dialysis (3) Hypertension Code(s): I10 - ESSENTIAL (PRIMARY) HYPERTENSION Qualifiers: Assessment/Plan Current Medications Generic Name Dose Route Start Last Admin Trade Name Freq PRN Reason Stop Dose Admin Acetaminophen 650 mg 05/15/18 11:00 05/18/18 13:25 Tylenol - PO 650 mg Q6H PRN Administration PAIN LEVEL 1-5 Aspirin 81 mg 05/15/18 10:00 05/19/18 10:33 Ecotrin - PO 81 mg DAILY [facility] Administration Calcitriol 0.25 mcg 05/17/18 10:00 05/19/18 10:33 Rocaltrol - PO 0.25 mcg DAILY [facility] Administration Clopidogrel Bisulfate 75 mg 05/15/18 10:00 05/15/18 09:46 Plavix - PO 75 mg DAILY [facility] Administration Epoetin Thomas 10,000 unit 05/19/18 15:25 Procrit - IVPUSH 05/19/18 15:26 ONCE ONE Furosemide 40 mg 05/15/18 10:00 05/19/18 10:38 Lasix - PO Not Given DAILY [facility] Heparin Sodium (Porcine) 5,000 unit 05/15/18 06:00 05/19/18 07:07 Heparin - SQ 5,000 unit TID [facility] Administration Hydralazine HCl 50 mg 05/15/18 14:00 05/19/18 07:07 Apresoline - PO 50 mg TID [facility] Administration Piperacillin Sod/Tazobactam 100 mls @ 100 mls/hr 05/15/18 19:15 05/19/18 10: 33 Sod 2.25 gm/ Dextrose IVPB 100 mls/hr Q8H-IV [facility] Administration Protocol Sodium Chloride 250 mls @ 3,000 mls/hr 05/18/18 15:25 Normal Saline - IV 05/19/18 15:25 PRN PRN Hypotension during Dialysis Insulin Aspart 1 vial 05/15/18 07:00 05/19/18 12:10 Novolog Vial Sliding Scale - SQ 2 units ACHS [facility] Administration Protocol Nifedipine 60 mg 05/16/18 22:00 05/19/18 10:38 Procardia Xl - PO Not Given BID [facility] Oxycodone HCl 5 mg 05/15/18 11:00 05/18/18 02:50 Roxicodone - PO 5 mg Q6H PRN Administration PAIN LEVEL 6-10 Ranitidine HCl 150 mg 05/16/18 16:30 05/19/18 10:33 Zantac - PO 150 mg DAILY [facility] Administration Impression 1. ESRD on HD 2. anemia 3. DM 4. HTN 5. toe infection/gangrene Plan - HD today - cta report not in chart - vascular follow up for plan - cont wound care - avf 3:30 400 abf - epogen 10,000 for anemia
--- NOTE | 2018-05-19 13:39 | EKG ---
Test Reason : Blood Pressure : / mmHG Vent. Rate : 069 BPM Atrial Rate : 069 BPM P-R Int : 168 ms QRS Dur : 108 ms QT Int : 430 ms P-R-T Axes : 052 -04 043 degrees QTc Int : 460 ms NORMAL SINUS RHYTHM POSSIBLE LEFT ATRIAL ENLARGEMENT NONSPECIFIC ST AND T WAVE ABNORMALITY PROLONGED QT ABNORMAL ECG WHEN COMPARED WITH ECG OF 14-MAY-2018 21:43, T WAVE AMPLITUDE HAS INCREASED IN ANTERIOR LEADS Confirmed by MARTITA CROUCH MD ([id number]) on 05/19/2018 1:39:31 PM Referred By: Confirmed By:MARTITA CROUCH MD
[2018-05-19 14:20] LABS: HEMATOCRIT 30.8 % (35.4-49); HEMOGLOBIN 10.5 GM/dL (11.7-16.9); MCH 34.4 pg (25.7-33.7); MCHC 34.2 g/dl (32.0-35.9); MEAN CELL VOLUME 100.6 fl (80-96); MEAN PLT VOLUME 8.7 fl (7.5-11.1); PLATELET COUNT 295 K/MM3 (134-434); RBC 3.06 M/mm3 (4.00-5.60); RDW 16.2 % (11.9-15.9); WHITE BLOOD COUNT 7.6 K/mm3 (4.0-10.0)
[2018-05-19] MEDS ORDERED: EPOETIN ALFA 10,000 UNIT/1 ML VIAL IVPUSH ONE (14:30)
[2018-05-19 14:39] LABS: ANION GAP 16 MMOL/L (8-16); BLOOD UREA NITROGEN 47 mg/dL (7-18); CALCIUM 9.1 mg/dL (8.5-10.1); CHLORIDE 93 mmol/L (98-107); CO2 26 mmol/L (21-32); GLUCOSE,RANDOM 134 mg/dL (74-106); MAGNESIUM 2.7 mg/dL (1.8-2.4); SODIUM 135 mmol/L (136-145)
[2018-05-19 15:14] LABS: CREATININE 9.9 mg/dL (0.7-1.3)
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
[2018-05-19] MEDS: ACETAMINOPHEN 325 MG TABLET (FP) PO PRN (17:51)
[2018-05-20] MEDS: PIPERACILLIN/TAZOB 2.25 GM 2.25 GM in DEXTROSE 5%-WATER 100 ML IVPB SCH ×3 (01:40→17:26)
[2018-05-20] MEDS: hydrALAZINE HCL 50 MG TABLET (FP) PO SCH ×2 (06:02→21:21)
[2018-05-20] MEDS: HEPARIN NA (PORCINE) 5,000 UNITS/ML 1ML VIAL SQ SCH ×3 (06:02→21:22)
[2018-05-20] MEDS: INSULIN SLIDING SCALE (NOVOLOG) 1 VIAL SQ SCH ×4 (06:05→21:22)
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
[2018-05-20] MEDS ORDERED: PT OWN MED DRAWER 7, Y5N ONE (09:13)
[2018-05-20] MEDS ORDERED: PIPERACILLIN/TAZOBACTAM 2.25 GM VIAL IVPB ONE ×2 (09:14→17:07)
[2018-05-20] MEDS ORDERED: DEXTROSE 5%-WATER 100 ML IVPB ONE ×2 (09:14→17:07)
[2018-05-20] MEDS: RANITIDINE HCL 150 MG TABLET (FP) PO SCH (09:23)
[2018-05-20] MEDS: NIFEdipine E.R 60 MG TABLET (UD) PO SCH ×2 (09:23→21:22)
[2018-05-20] MEDS: CALCITRIOL 0.25 MCG CAPSULE (FP) PO SCH (09:23)
[2018-05-20] MEDS: ASPIRIN COATED 81 MG TABLET.EC PO SCH (09:23)
[2018-05-20] MEDS: FUROSEMIDE 40 MG TABLET (FP) PO SCH (09:23)
[2018-05-20 09:36] LABS: EOS % 2.9 % (0-4.5); HEMATOCRIT 31.2 % (35.4-49); HEMOGLOBIN 10.5 GM/dL (11.7-16.9); LYMPH % 11.4 % (8-40); MCH 33.8 pg (25.7-33.7); MCHC 33.6 g/dl (32.0-35.9); MEAN CELL VOLUME 100.6 fl (80-96); MONO % 10.9 % (3.8-10.2); NEUT % 73.8 % (42.8-82.8); PLATELET COUNT 274 K/MM3 (134-434); WHITE BLOOD COUNT 8.4 K/mm3 (4.0-10.0)
[2018-05-20 10:02] LABS: ALBUMIN 3.3 g/dl (3.4-5.0); ALK PHOS 232 U/L (45-117); ANION GAP 14 MMOL/L (8-16); BILIRUBIN,TOTAL 0.6 mg/dL (0.2-1.0); BLOOD UREA NITROGEN 19 mg/dL (7-18); CALCIUM 9.4 mg/dL (8.5-10.1); CHLORIDE 97 mmol/L (98-107); CO2 29 mmol/L (21-32); CREATININE 5.9 mg/dL (0.7-1.3); GLUCOSE,RANDOM 134 mg/dL (74-106); POTASSIUM 4.3 mmol/L (3.5-5.1); SGOT/AST 22 U/L (15-37); SGPT/ALT 21 U/L (12-78); SODIUM 140 mmol/L (136-145); TOT PROT 7.5 g/dl (6.4-8.2)
[2018-05-20] MEDS ORDERED: hydrALAZINE HCL 50 MG TABLET (FP) PO ONE ×2 (12:30→12:35)
[2018-05-20] MEDS ORDERED: NIFEdipine E.R. 30 MG TABLET (FP) PO ONE (12:45)
--- NOTE | 2018-05-20 13:53 | PN ---
Progress Note (short form) - Note Progress Note: Vascular Surgery Pt's CTA reviewed. Left popliteal artery stenosis greater than 90%. Pt booked for angiogram on . Please medically clear. Spoke to renal - they will do HD erik on pt. Kel hebert DO
[2018-05-20] MEDS: DOCUSATE SODIUM 100 MG CAPSULE (FP) PO SCH ×2 (14:11→21:22)
[2018-05-20] MEDS: ACETAMINOPHEN 325 MG TABLET (FP) PO PRN (14:12)
--- NOTE | 2018-05-20 16:31 | PN ---
Progress Note, Physician History of Present Illness: Pt seen and examined at bedside. He complains of pain in his foot. - Current Medication List Current Medications: Active Medications Acetaminophen (Tylenol -) 650 mg PO Q6H PRN PRN Reason: PAIN LEVEL 1-5 Last Admin: 05/20/18 14:12 Dose: 650 mg Aspirin (Ecotrin -) 81 mg PO DAILY [facility] Last Admin: 05/20/18 09:23 Dose: 81 mg Calcitriol (Rocaltrol -) 0.25 mcg PO DAILY [facility] Last Admin: 05/20/18 09:23 Dose: 0.25 mcg Clopidogrel Bisulfate (Plavix -) 75 mg PO DAILY [facility] Last Admin: 05/15/18 09:46 Dose: 75 mg Docusate Sodium (Colace -) 100 mg PO TID [facility] Last Admin: 05/20/18 14:11 Dose: Not Given Furosemide (Lasix -) 40 mg PO DAILY [facility] Last Admin: 05/20/18 09:23 Dose: 40 mg Heparin Sodium (Porcine) (Heparin -) 5,000 unit SQ TID [facility] Last Admin: 05/20/18 14:12 Dose: 5,000 unit Hydralazine HCl (Apresoline -) 100 mg PO TID [facility] Piperacillin Sod/Tazobactam (Sod 2.25 gm/ Dextrose) 100 mls @ 100 mls/hr IVPB Q8H-IV [facility]; Protocol Last Admin: 05/20/18 09:22 Dose: 100 mls/hr Insulin Aspart (Novolog Vial Sliding Scale -) 1 vial SQ ACHS [facility]; Protocol Last Admin: 05/20/18 12:25 Dose: Not Given Nifedipine (Procardia Xl -) 60 mg PO BID [facility] Last Admin: 05/20/18 09:23 Dose: 60 mg Oxycodone HCl (Roxicodone -) 5 mg PO Q6H PRN PRN Reason: PAIN LEVEL 6-10 Last Admin: 05/18/18 02:50 Dose: 5 mg Ranitidine HCl (Zantac -) 150 mg PO DAILY [facility] Last Admin: 05/20/18 09:23 Dose: 150 mg - Objective Vital Signs: Vital Signs Temperature 98.1 F 05/20/18 14:40 Pulse Rate 77 05/20/18 14:40 Respiratory Rate 18 05/20/18 14:40 Blood Pressure 157/85 05/20/18 14:40 O2 Sat by Pulse Oximetry (%) 93 L 05/20/18 09:00 Constitutional: Yes: Calm Eyes: Yes: Conjunctiva Clear HENT: Yes: Atraumatic Neck: Yes: Supple Cardiovascular: Yes: S1, S2 Respiratory: Yes: CTA Bilaterally Gastrointestinal: Yes: Soft Genitourinary: Yes: WNL Musculoskeletal: Yes: WNL Extremities: Yes: Other (gangrene of toe) Edema: No Neurological: Yes: Oriented Psychiatric: Yes: Oriented Labs: CBC, BMP 05/20/18 09:05 05/20/18 09:05 INR, PTT INR 1.09 (0.83-1.09) 05/14/18 21:24 Problem List - Problems (1) ESRD (end stage renal disease) Code(s): N18.6 - END STAGE RENAL DISEASE (2) Diabetes Code(s): E11.9 - TYPE 2 DIABETES MELLITUS WITHOUT COMPLICATIONS Qualifiers: Diabetes mellitus type: type 2 Diabetes mellitus intermodal dispatcher insulin use: without intermodal dispatcher use Diabetes mellitus complication detail: with chronic kidney disease Chronic kidney disease stage: stage 5, not on chronic dialysis (3) Hypertension Code(s): I10 - ESSENTIAL (PRIMARY) HYPERTENSION Qualifiers: Assessment/Plan Current Medications Generic Name Dose Route Start Last Admin Trade Name Freq PRN Reason Stop Dose Admin Acetaminophen 650 mg 05/15/18 11:00 05/20/18 14:12 Tylenol - PO 650 mg Q6H PRN Administration PAIN LEVEL 1-5 Aspirin 81 mg 05/15/18 10:00 05/20/18 09:23 Ecotrin - PO 81 mg DAILY [facility] Administration Calcitriol 0.25 mcg 05/17/18 10:00 05/20/18 09:23 Rocaltrol - PO 0.25 mcg DAILY [facility] Administration Clopidogrel Bisulfate 75 mg 05/15/18 10:00 05/15/18 09:46 Plavix - PO 75 mg DAILY [facility] Administration Docusate Sodium 100 mg 05/20/18 14:00 05/20/18 14:11 Colace - PO Not Given TID [facility] Furosemide 40 mg 05/15/18 10:00 05/20/18 09:23 Lasix - PO 40 mg DAILY [facility] Administration Heparin Sodium (Porcine) 5,000 unit 05/15/18 06:00 05/20/18 14:12 Heparin - SQ 5,000 unit TID [facility] Administration Hydralazine HCl 100 mg 05/20/18 22:00 Apresoline - PO TID [facility] Piperacillin Sod/Tazobactam 100 mls @ 100 mls/hr 05/15/18 19:15 05/20/18 09: 22 Sod 2.25 gm/ Dextrose IVPB 100 mls/hr Q8H-IV [facility] Administration Protocol Insulin Aspart 1 vial 05/15/18 07:00 05/20/18 12:25 Novolog Vial Sliding Scale - SQ Not Given ACHS [facility] Protocol Nifedipine 60 mg 05/16/18 22:00 05/20/18 09:23 Procardia Xl - PO 60 mg BID [facility] Administration Oxycodone HCl 5 mg 05/15/18 11:00 05/18/18 02:50 Roxicodone - PO 5 mg Q6H PRN Administration PAIN LEVEL 6-10 Ranitidine HCl 150 mg 05/16/18 16:30 05/20/18 09:23 Zantac - PO 150 mg DAILY [facility] Administration Impression 1. ESRD on HD 2. anemia 3. DM 4. HTN 5. toe infection/gangrene 6. PVD Plan - will arrange for HD tomorrow - pt going for angio on , discussed with vascular - cont wound care - avf 3:30 400 abf - epogen 10,000 for anemia
[2018-05-20] MEDS ORDERED: INSULIN (NOVOLOG) ASPART 100 UNITS/ML 10ML VIAL ONE ×2 (17:07→21:05)
--- NOTE | 2018-05-20 19:14 | PN ---
Progress Note (short form) - Note Progress Note: Patient seen in bed. present. vss tmax 97.2 +gangarene 4th toe left, +om, +dry gangarene wbc=8.4 PVD Gangarene OM Discussed with Dr. Paiz vascular intervention on . Continue abx. Will follow. Problem List - Problems (1) Gangrene Code(s): I96 - GANGRENE, NOT ELSEWHERE CLASSIFIED
[2018-05-21] MEDS ORDERED: PIPERACILLIN/TAZOBACTAM 2.25 GM VIAL IVPB ONE ×3 (01:10→18:01)
[2018-05-21] MEDS ORDERED: DEXTROSE 5%-WATER 100 ML IVPB ONE ×3 (01:10→18:01)
[2018-05-21] MEDS: PIPERACILLIN/TAZOB 2.25 GM 2.25 GM in DEXTROSE 5%-WATER 100 ML IVPB SCH ×3 (01:35→18:10)
[2018-05-21] MEDS: hydrALAZINE HCL 50 MG TABLET (FP) PO SCH ×3 (05:21→21:09)
[2018-05-21] MEDS: DOCUSATE SODIUM 100 MG CAPSULE (FP) PO SCH ×3 (05:21→21:09)
[2018-05-21] MEDS: HEPARIN NA (PORCINE) 5,000 UNITS/ML 1ML VIAL SQ SCH ×3 (05:21→21:09)
[2018-05-21] MEDS: INSULIN SLIDING SCALE (NOVOLOG) 1 VIAL SQ SCH ×4 (06:05→21:08)
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
[2018-05-21] MEDS ORDERED: PT OWN MED DRAWER 7, Y5N ONE (10:15)
[2018-05-21] MEDS: CLOPIDOGREL BISULFATE 75 MG TABLET (FP) PO SCH (10:18)
[2018-05-21] MEDS: NIFEdipine E.R 60 MG TABLET (UD) PO SCH ×2 (10:18→21:08)
[2018-05-21] MEDS: ASPIRIN COATED 81 MG TABLET.EC PO SCH (10:18)
[2018-05-21] MEDS: CALCITRIOL 0.25 MCG CAPSULE (FP) PO SCH (10:18)
[2018-05-21] MEDS: FUROSEMIDE 40 MG TABLET (FP) PO SCH (10:19)
[2018-05-21] MEDS: RANITIDINE HCL 150 MG TABLET (FP) PO SCH (10:19)
--- NOTE | 2018-05-21 10:55 | PN ---
Progress Note, Physician History of Present Illness: Pt seen and examined at bedside. He is awake and alert. He denies pain in his foot today. - Current Medication List Current Medications: Active Medications Acetaminophen (Tylenol -) 650 mg PO Q6H PRN PRN Reason: PAIN LEVEL 1-5 Last Admin: 05/20/18 14:12 Dose: 650 mg Aspirin (Ecotrin -) 81 mg PO DAILY [facility] Last Admin: 05/21/18 10:18 Dose: 81 mg Calcitriol (Rocaltrol -) 0.25 mcg PO DAILY [facility] Last Admin: 05/21/18 10:18 Dose: 0.25 mcg Clopidogrel Bisulfate (Plavix -) 75 mg PO DAILY [facility] Last Admin: 05/21/18 10:18 Dose: 75 mg Docusate Sodium (Colace -) 100 mg PO TID [facility] Last Admin: 05/21/18 05:21 Dose: 100 mg Epoetin Thomas (Procrit -) 10,000 unit IVPUSH ONCE ONE Stop: 05/21/18 16:32 Furosemide (Lasix -) 40 mg PO DAILY [facility] Last Admin: 05/21/18 10:19 Dose: 40 mg Heparin Sodium (Porcine) (Heparin -) 5,000 unit SQ TID [facility] Last Admin: 05/21/18 05:21 Dose: 5,000 unit Hydralazine HCl (Apresoline -) 100 mg PO TID [facility] Last Admin: 05/21/18 05:21 Dose: 100 mg Piperacillin Sod/Tazobactam (Sod 2.25 gm/ Dextrose) 100 mls @ 100 mls/hr IVPB Q8H-IV [facility]; Protocol Last Admin: 05/21/18 10:19 Dose: 100 mls/hr Sodium Chloride (Normal Saline -) 250 mls @ 3,000 mls/hr IV PRN PRN PRN Reason: Hypotension during Dialysis Stop: 05/21/18 16:31 Insulin Aspart (Novolog Vial Sliding Scale -) 1 vial SQ ACHS [facility]; Protocol Last Admin: 05/21/18 06:05 Dose: Not Given Nifedipine (Procardia Xl -) 60 mg PO BID [facility] Last Admin: 05/21/18 10:18 Dose: 60 mg Oxycodone HCl (Roxicodone -) 5 mg PO Q6H PRN PRN Reason: PAIN LEVEL 6-10 Last Admin: 05/18/18 02:50 Dose: 5 mg Ranitidine HCl (Zantac -) 150 mg PO DAILY [facility] Last Admin: 05/21/18 10:19 Dose: 150 mg - Objective Vital Signs: Vital Signs Temperature 97.8 F 05/21/18 06:53 Pulse Rate 69 05/21/18 06:53 Respiratory Rate 20 05/21/18 06:53 Blood Pressure 173/69 05/21/18 06:53 O2 Sat by Pulse Oximetry (%) 94 L 05/20/18 21:40 Constitutional: Yes: Calm Eyes: Yes: Conjunctiva Clear HENT: Yes: Atraumatic Cardiovascular: Yes: S1, S2 Respiratory: Yes: CTA Bilaterally Gastrointestinal: Yes: Soft Genitourinary: Yes: WNL Musculoskeletal: Yes: Other (left foot toe ganrene) Edema: No Wound/Incision: Yes: Other (gangrene) Neurological: Yes: Oriented Psychiatric: Yes: Oriented Labs: CBC, BMP 05/20/18 09:05 05/20/18 09:05 INR, PTT INR 1.09 (0.83-1.09) 05/14/18 21:24 Problem List - Problems (1) ESRD (end stage renal disease) Code(s): N18.6 - END STAGE RENAL DISEASE (2) Diabetes Code(s): E11.9 - TYPE 2 DIABETES MELLITUS WITHOUT COMPLICATIONS Qualifiers: Diabetes mellitus type: type 2 Diabetes mellitus custodial insulin use: without manager long term care use Diabetes mellitus complication detail: with chronic kidney disease Chronic kidney disease stage: stage 5, not on chronic dialysis (3) Hypertension Code(s): I10 - ESSENTIAL (PRIMARY) HYPERTENSION Qualifiers: Assessment/Plan Current Medications Generic Name Dose Route Start Last Admin Trade Name Freq PRN Reason Stop Dose Admin Acetaminophen 650 mg 05/15/18 11:00 05/20/18 14:12 Tylenol - PO 650 mg Q6H PRN Administration PAIN LEVEL 1-5 Aspirin 81 mg 05/15/18 10:00 05/21/18 10:18 Ecotrin - PO 81 mg DAILY CHUCKY Administration Calcitriol 0.25 mcg 05/17/18 10:00 05/21/18 10:18 Rocaltrol - PO 0.25 mcg DAILY CHUCKY Administration Clopidogrel Bisulfate 75 mg 05/15/18 10:00 05/21/18 10:18 Plavix - PO 75 mg DAILY [facility] Administration Docusate Sodium 100 mg 05/20/18 14:00 05/21/18 05:21 Colace - PO 100 mg TID CHUCKY Administration Epoetin Thomas 10,000 unit 05/21/18 16:31 Procrit - IVPUSH 05/21/18 16:32 ONCE ONE Furosemide 40 mg 05/15/18 10:00 05/21/18 10:19 Lasix - PO 40 mg DAILY [facility] Administration Heparin Sodium (Porcine) 5,000 unit 05/15/18 06:00 05/21/18 05:21 Heparin - SQ 5,000 unit TID CHUCKY Administration Hydralazine HCl 100 mg 05/20/18 22:00 05/21/18 05:21 Apresoline - PO 100 mg TID CHUCKY Administration Piperacillin Sod/Tazobactam 100 mls @ 100 mls/hr 05/15/18 19:15 05/21/18 10: 19 Sod 2.25 gm/ Dextrose IVPB 100 mls/hr Q8H-IV [facility] Administration Protocol Sodium Chloride 250 mls @ 3,000 mls/hr 05/20/18 16:31 Normal Saline - IV 05/21/18 16:31 PRN PRN Hypotension during Dialysis Insulin Aspart 1 vial 05/15/18 07:00 05/21/18 06:05 Novolog Vial Sliding Scale - SQ Not Given ACHS [facility] Protocol Nifedipine 60 mg 05/16/18 22:00 05/21/18 10:18 Procardia Xl - PO 60 mg BID [facility]Y Administration Oxycodone HCl 5 mg 05/15/18 11:00 05/18/18 02:50 Roxicodone - PO 5 mg Q6H PRN Administration PAIN LEVEL 6-10 Ranitidine HCl 150 mg 05/16/18 16:30 05/21/18 10:19 Zantac - PO 150 mg DAILY CHUCKY Administration Impression 1. ESRD on HD 2. anemia 3. DM 4. HTN 5. toe infection/gangrene 6. PVD Plan - HD today - pt going for vascular procedure tomorrow - monitor bp, give am meds - cont wound care - avf 3:30 400 abf - epogen 10,000 for anemia
--- NOTE | 2018-05-21 12:02 | CON.CARD ---
Consult Consult Specialty:: Cardiology - History of Present Illness History of Present Illness: The patient is a 68 year old male, with a significant past medical history of ESRD (on dialysis MWF last tx today)(2 years), HTN, and DM presents to the emergency department with left 4th toe digit infection, who presents to the ED complaining of a small cut in the web space between the 3rd and 4th digit. He went to [facility] 1 week ago and was treated with clindamycin (prescribed on 05/10/2018, compliant) but has been getting worse. Daughter states that she noticed the area turning black today. He notes that the area is painful but does not radiate anywhere. Pain increases when he walks. He notes that he has been experiencing a dry cough over the past few days. The patient denies chest pain, shortness of breath, headache and dizziness. Denies fever, chills, nausea, vomiting, diarrhea or constipation. Denies dysuria , frequency, urgency and hematuria. Allergies: None Past surgical history: AV fistula left arm 2017, appendectomy Social History: No alcohol, tobaco or drug use reported - History Source History Provided By: Patient, Medical Record - Past Medical History Cardio/Vascular: Yes: HTN Renal/: Yes: Renal Failure, Hemodialysis Endocrine: Yes: Diabetes Mellitus Additional Medical History: DM - Alcohol/Substance Use Hx Alcohol Use: No - Smoking History Smoking history: Never smoked Have you smoked in the past 12 months: No - Social History ADL: Independent Home Medications - Allergies Allergies/Adverse Reactions: Allergies Allergy/AdvReac Type Severity Reaction Status Date / Time No Known Allergies Allergy Verified 05/14/18 19:30 - Home Medications Home Medications: Ambulatory Orders Hydralazine HCl 100 mg PO TID 01/17/18 Nifedipine ER [Procardia XL -] 60 mg PO BID 05/16/18 Sevelamer HCl [Renagel] 800 mg PO TIDCM 05/16/18 Review of Systems - Review of Systems Constitutional: reports: No Symptoms Eyes: reports: No Symptoms HENT: reports: No Symptoms Neck: reports: No Symptoms Cardiovascular: reports: No Symptoms Gastrointestinal: reports: No Symptoms Genitourinary: reports: No Symptoms Breasts: reports: No Symptoms Reported Musculoskeletal: reports: No Symptoms Integumentary: reports: No Symptoms Neurological: reports: No Symptoms Endocrine: reports: No Symptoms Hematology/Lymphatic: reports: No Symptoms Psychiatric: reports: No Symptoms Vital Signs: Vital Signs Temperature 97.3 F L 05/21/18 10:00 Pulse Rate 67 05/21/18 10:00 Respiratory Rate 20 05/21/18 10:00 Blood Pressure 154/55 05/21/18 10:00 O2 Sat by Pulse Oximetry (%) 94 L 05/20/18 21:40 Constitutional: Yes: Well Nourished, No Distress, Calm Eyes: Yes: WNL, Conjunctiva Clear, EOM Intact HENT: Yes: WNL, Atraumatic, Normocephalic Neck: Yes: WNL, Supple, Trachea Midline Respiratory: Yes: WNL, Regular, CTA Bilaterally Gastrointestinal: Yes: WNL, Normal Bowel Sounds Renal/: Yes: WNL Cardiovascular: Yes: WNL, Regular Rate and Rhythm Musculoskeletal: Yes: WNL Extremities: Yes: WNL Integumentary: Yes: WNL Neurological: Yes: WNL, Alert, Oriented ...Motor Strength: WNL Psychiatric: Yes: WNL, Alert, Oriented - Other Data Labs, Other Data: CBC, BMP 05/20/18 09:05 05/20/18 09:05 INR, PTT INR 1.09 (0.83-1.09) 05/14/18 21:24 Imaging - Results Chest X-ray: Image Reviewed (no i/e cmp) EKG: Image Reviewed (sr prolonged qt rep abn) Problem List - Problems (1) Diabetic foot infection Code(s): E11.628 - TYPE 2 DIABETES MELLITUS WITH OTHER SKIN COMPLICATIONS; L08.9 - LOCAL INFECTION OF THE SKIN AND SUBCUTANEOUS TISSUE, UNSP (2) ESRD (end stage renal disease) Code(s): N18.6 - END STAGE RENAL DISEASE (3) Gangrene Code(s): I96 - GANGRENE, NOT ELSEWHERE CLASSIFIED (4) Wound infection Code(s): T14.8XXA - OTHER INJURY OF UNSPECIFIED BODY REGION, INITIAL ENCOUNTER; L08.9 - LOCAL INFECTION OF THE SKIN AND SUBCUTANEOUS TISSUE, UNSP (5) AV fistula Code(s): I77.0 - ARTERIOVENOUS FISTULA, ACQUIRED (6) Abnormal ECG Code(s): R94.31 - ABNORMAL ELECTROCARDIOGRAM [ECG] [EKG] (7) Congestive heart failure Code(s): I50.9 - HEART FAILURE, UNSPECIFIED (8) Diabetes Code(s): E11.9 - TYPE 2 DIABETES MELLITUS WITHOUT COMPLICATIONS Qualifiers: Diabetes mellitus type: type 2 Diabetes mellitus half-way insulin use: without inspector optical instrument use Diabetes mellitus complication detail: with chronic kidney disease Chronic kidney disease stage: stage 5, not on chronic dialysis (9) Encounter regarding vascular access for dialysis for ESRD Code(s): N18.6 - END STAGE RENAL DISEASE (10) Fistula Code(s): L98.8 - OTH DISRD OF THE SKIN AND SUBCUTANEOUS TISSUE (11) Hyperkalemia Code(s): E87.5 - HYPERKALEMIA (12) Hypertension Code(s): I10 - ESSENTIAL (PRIMARY) HYPERTENSION Qualifiers: Assessment/Plan ESRD (on dialysis MWF last tx today)(2 years), HTN, and DM presents to the emergency department with left 4th toe digit infection, Plan will need echo and Lexiscan mibi st prior to surgery
--- NOTE | 2018-05-21 12:27 | PN ---
Progress Note (short form) - Note Progress Note: Patient was scheduled for angio 05/22/18. Cardio note states: need echo and Lexiscan mibi st prior to surgery. Once patient has above studies and cleared by cardio we can then proceed with angio. Cont medical management at this time. Problem List - Problems (1) Diabetic foot infection Code(s): E11.628 - TYPE 2 DIABETES MELLITUS WITH OTHER SKIN COMPLICATIONS; L08.9 - LOCAL INFECTION OF THE SKIN AND SUBCUTANEOUS TISSUE, UNSP (2) AV fistula Code(s): I77.0 - ARTERIOVENOUS FISTULA, ACQUIRED
--- NOTE | 2018-05-21 13:43 | ECHO ---
Name: KARI VILLALOBOS Exam:Adult Echocardiogram Study Date: 05/21/2018 09:43 AM Age: 68 yrs Reason For Study: htn Height: 62 in Weight: 162 lb BSA: 1.7 m2 BP: 2/ mmHg MMode/2D Measurements & Calculations IVSd: 1.2 cm Ao root diam: 3.0 cm LVIDd: 5.3 cm LA dimension: 4.4 cm LVIDs: 3.9 cm LVPWd: 1.2 cm LVPWs: 1.4 cm EDV(Teich): 134.7 ml ESV(Teich): 64.4 ml LAV (MOD-bp): 85.0 ml RV S Bull: 12.0 cm/sec Doppler Measurements & Calculations MV E max bull: 145.0 cm/sec Ao V2 max: 160.8 cm/sec MV A max bull: 70.6 cm/sec Ao max P.6 mmHg MV E/A: 2.1 MV dec time: 0.40 sec LV V1 max P.1 mmHg MR max bull: 416.5 cm/sec LV V1 max: 100.7 cm/sec MR max P.1 mmHg TR max bull: 309.2 cm/sec PA V2 max: 119.9 cm/sec TR max P.7 mmHg PA max P.8 mmHg PI end-d bull: 141.8 cm/sec Med Peak E' Bull: 4.8 cm/sec Med E/e': 30.1 Lat Peak E' Bull: 8.1 cm/sec Lat E/e': 17.9 Procedure A two-dimensional transthoracic echocardiogram with color flow and Doppler was performed. Left Ventricle The left ventricular size, thickness and function are normal. The left ventricular ejection fraction is normal. The left ventricular wall motion is normal. Mitral Valve There is mild to moderate mitral valve thickening. There is no mitral valve stenosis. There is modera te mitral regurgitation. Tricuspid Valve There is mild tricuspid valve thickening. There is no tricuspid stenosis. There is moderate tricuspid regurgitation. Right ventricular systolic pressure is elevated at 40-50mmHg. Aortic Valve There is mild aortic valve thickening. There is mild aortic sclerosis.;. The aortic valve opens well. The aortic valve is trileaflet. No hemodynamically significant valvular aortic stenosis. No aortic regurg itation is present. Pulmonic Valve The pulmonic valve is not well visualized. There is no pulmonic valvular stenosis. Mild to moderate p ulmonic valvular regurgitation. Great Vessels The aortic root is normal size. Pericardium/Pleura There is no pericardial effusion. Interpretation Summary The left ventricular size, thickness and function are normal The left ventricular ejection fraction is normal. The left ventricular wall motion is normal. There is moderate tricuspid regurgitation. Right ventricular systolic pressure is elevated at 40-50mmHg. Mild to moderate pulmonic valvular regurgitation. There is mild aortic valve thickening. There is mild aortic sclerosis.; There is mild to moderate mitral valve thickening. There is moderate mitral regurgitation. MD Maulik Lee 05/21/2018 01:23 PM
[2018-05-21] MEDS ORDERED: EPOETIN ALFA 10,000 UNIT/1 ML VIAL IVPUSH ONE (14:45)
[2018-05-21] MEDS ORDERED: SODIUM CHLORIDE 250 ML IV PRN (14:46)
[2018-05-21 15:15] LABS: HEMOGLOBIN 9.6 GM/dL (11.7-16.9); MCH 34.4 pg (25.7-33.7); MCHC 34.3 g/dl (32.0-35.9); MEAN CELL VOLUME 100.5 fl (80-96); MEAN PLT VOLUME 8.2 fl (7.5-11.1); PLATELET COUNT 276 K/MM3 (134-434); RBC 2.79 M/mm3 (4.00-5.60); RDW 15.8 % (11.9-15.9)
[2018-05-21 15:37] LABS: ANION GAP 16 MMOL/L (8-16); BLOOD UREA NITROGEN 32 mg/dL (7-18); CALCIUM 9.7 mg/dL (8.5-10.1); CHLORIDE 98 mmol/L (98-107); CO2 25 mmol/L (21-32); GLUCOSE,RANDOM 104 mg/dL (74-106); POTASSIUM 4.8 mmol/L (3.5-5.1); SODIUM 139 mmol/L (136-145)
[2018-05-21 15:41] LABS: CREATININE 8.4 mg/dL (0.7-1.3)
[2018-05-21] MEDS ORDERED: INSULIN (LEVEMIR) 100 UNITS/ML UNITS SQ ONE (18:02)
[2018-05-21] MEDS ORDERED: INSULIN (NOVOLOG) ASPART 100 UNITS/ML 10ML VIAL ONE (18:02)
[2018-05-22 00:07] LABS: HBSAG SCREEN Negative (Negative); HEP A AB, IGM Negative (Negative); HEP B CORE AB, TOT Positive (Negative)
[2018-05-22] MEDS ORDERED: PIPERACILLIN/TAZOBACTAM 2.25 GM VIAL IVPB ONE ×2 (01:31→15:04)
[2018-05-22] MEDS ORDERED: DEXTROSE 5%-WATER 100 ML IVPB ONE (01:32)
[2018-05-22] MEDS: PIPERACILLIN/TAZOB 2.25 GM 2.25 GM in DEXTROSE 5%-WATER 100 ML IVPB SCH ×3 (01:49→18:25)
[2018-05-22] MEDS: HEPARIN NA (PORCINE) 5,000 UNITS/ML 1ML VIAL SQ SCH ×3 (06:00→21:37)
[2018-05-22] MEDS: hydrALAZINE HCL 50 MG TABLET (FP) PO SCH ×3 (06:01→21:35)
[2018-05-22] MEDS: DOCUSATE SODIUM 100 MG CAPSULE (FP) PO SCH ×4 (06:01→21:36)
[2018-05-22] MEDS: INSULIN SLIDING SCALE (NOVOLOG) 1 VIAL SQ SCH ×4 (06:01→21:38)
[2018-05-22 08:16] LABS: BASO % 0.9 % (0-2.0); EOS % 1.1 % (0-4.5); HEMATOCRIT 30.3 % (35.4-49); HEMOGLOBIN 10.1 GM/dL (11.7-16.9); MCHC 33.4 g/dl (32.0-35.9); MEAN CELL VOLUME 101.6 fl (80-96); MEAN PLT VOLUME 7.6 fl (7.5-11.1); MONO % 10.4 % (3.8-10.2); NEUT % 76.6 % (42.8-82.8); PLATELET COUNT 268 K/MM3 (134-434); RBC 2.98 M/mm3 (4.00-5.60); RDW 16.9 % (11.9-15.9); WHITE BLOOD COUNT 8.7 K/mm3 (4.0-10.0)
[2018-05-22 08:58] LABS: BLOOD UREA NITROGEN 14 mg/dL (7-18); CHLORIDE 99 mmol/L (98-107); CO2 30 mmol/L (21-32); GLUCOSE,RANDOM 96 mg/dL (74-106); POTASSIUM 4.4 mmol/L (3.5-5.1); SODIUM 141 mmol/L (136-145)
[2018-05-22 08:59] LABS: ALBUMIN 3.1 g/dl (3.4-5.0); ALK PHOS 226 U/L (45-117); ANION GAP 12 MMOL/L (8-16); BILIRUBIN,TOTAL 0.6 mg/dL (0.2-1.0); CALCIUM 9.5 mg/dL (8.5-10.1); MAGNESIUM 2.3 mg/dL (1.8-2.4); SGOT/AST 25 U/L (15-37); SGPT/ALT 20 U/L (12-78); TOT PROT 7.3 g/dl (6.4-8.2)
[2018-05-22] MEDS ORDERED: REGADENOSON 0.4 MG/5 ML PRE-FILLED SYRINGE IVPUSH ONE ×2 (10:30→12:58)
[2018-05-22] MEDS ORDERED: ACETAMINOPHEN 325 MG TABLET (FP) ONE (10:38)
[2018-05-22] MEDS: ACETAMINOPHEN 325 MG TABLET (FP) PO PRN (10:47)
[2018-05-22] MEDS ORDERED: hydrALAZINE HCL 25 MG TABLET (FP) ONE (13:08)
--- NOTE | 2018-05-22 13:16 | PN ---
Progress Note, Physician Chief Complaint: Pt to undergo stress Lexiscan MIBI today. History of Present Illness: 68 yo M with a hx of ESRD (on dialysis MWF last tx today), HTN, and DM presents to the emergency department with left 4th toe digit infection. Per the patient, he states it occurred 1 week ago and began as a small cut on the web space between the 3rd and 4th digit. He went to [facility] 1 week ago and treated with clindamycin (prescribed on 05/10/2018, compliant) but has been getting worse. Per the daughter, she noticed it turning black today. The patient states its painful, does not radiate, and is currently 4/10 throbbing and increases to 7/10 when walking. Denies the following: fever, chest pain, headache, dizziness , chills, diaphoresis, SOB, abdominal pain, hematuria, diarrhea, nausea, vomiting, and leg swelling/pain. Endorses having a cough for the past few days. Pmhx: Refer to above. On dialysis for 2 years. Shx: AV fistula left arm 2017 Meds: hydralazine, nifedipine, aspirin, renagel, and chlorthalid - Current Medication List Current Medications: Active Medications Acetaminophen (Tylenol -) 650 mg PO Q6H PRN PRN Reason: PAIN LEVEL 1-5 Last Admin: 05/22/18 10:47 Dose: 650 mg Aspirin (Ecotrin -) 81 mg PO DAILY [facility] Last Admin: 05/21/18 10:18 Dose: 81 mg Calcitriol (Rocaltrol -) 0.25 mcg PO DAILY [facility] Last Admin: 05/21/18 10:18 Dose: 0.25 mcg Clopidogrel Bisulfate (Plavix -) 75 mg PO DAILY [facility] Last Admin: 05/21/18 10:18 Dose: 75 mg Docusate Sodium (Colace -) 100 mg PO TID [facility] Last Admin: 05/22/18 06:02 Dose: Not Given Furosemide (Lasix -) 40 mg PO DAILY [facility] Last Admin: 05/21/18 10:19 Dose: 40 mg Heparin Sodium (Porcine) (Heparin -) 5,000 unit SQ TID [facility] Last Admin: 05/22/18 06:00 Dose: 5,000 unit Hydralazine HCl (Apresoline -) 100 mg PO TID [facility] Last Admin: 05/22/18 13:11 Dose: 100 mg Piperacillin Sod/Tazobactam (Sod 2.25 gm/ Dextrose) 100 mls @ 100 mls/hr IVPB Q8H-IV [facility]; Protocol Last Admin: 05/22/18 01:49 Dose: 100 mls/hr Insulin Aspart (Novolog Vial Sliding Scale -) 1 vial SQ ACHS [facility]; Protocol Last Admin: 05/22/18 06:01 Dose: Not Given Nifedipine (Procardia Xl -) 60 mg PO BID [facility] Last Admin: 05/21/18 21:08 Dose: 60 mg Oxycodone HCl (Roxicodone -) 5 mg PO Q6H PRN PRN Reason: PAIN LEVEL 6-10 Last Admin: 05/18/18 02:50 Dose: 5 mg Ranitidine HCl (Zantac -) 150 mg PO DAILY [facility] Last Admin: 05/21/18 10:19 Dose: 150 mg - Objective Vital Signs: Vital Signs Temperature 99.4 F 05/22/18 08:03 Pulse Rate 69 05/22/18 08:03 Respiratory Rate 20 05/22/18 08:03 Blood Pressure 200/77 05/22/18 13:00 O2 Sat by Pulse Oximetry (%) 98 05/21/18 21:00 Constitutional: Yes: Calm Eyes: Yes: WNL HENT: Yes: WNL Neck: Yes: WNL Cardiovascular: Yes: S1, S2, S4 Respiratory: Yes: Regular Gastrointestinal: Yes: Soft ...Rectal Exam: Yes: Deferred Genitourinary: No: Anuria Musculoskeletal: Yes: WNL Extremities: Yes: Cool, Other Edema: No Peripheral Pulses WNL: No Peripheral Pulses: Left Doralis Pedis: 1+, Right Dorsalis Pedis: 1+ Integumentary: Yes: WNL Neurological: Yes: WNL Psychiatric: Yes: Alert, Oriented Labs: CBC, BMP 05/22/18 08:00 05/22/18 08:00 INR, PTT INR 1.09 (0.83-1.09) 05/14/18 21:24 Problem List - Problems (1) ESRD (end stage renal disease) Assessment/Plan: hemodialysis 3x weekly peer it operations analyst Code(s): N18.6 - END STAGE RENAL DISEASE (2) Gangrene Code(s): I96 - GANGRENE, NOT ELSEWHERE CLASSIFIED (3) AV fistula Code(s): I77.0 - ARTERIOVENOUS FISTULA, ACQUIRED (4) Abnormal ECG Code(s): R94.31 - ABNORMAL ELECTROCARDIOGRAM [ECG] [EKG] (5) Diabetes Code(s): E11.9 - TYPE 2 DIABETES MELLITUS WITHOUT COMPLICATIONS Qualifiers: Diabetes mellitus type: type 2 Diabetes mellitus senior living insulin use: without termination clerk use Diabetes mellitus complication detail: with chronic kidney disease Chronic kidney disease stage: stage 5, not on chronic dialysis (6) Hypertension Assessment/Plan: On nifedipine, hydralazine, furosemide. Consider spironolactone if BP remains refractory to Rx. Code(s): I10 - ESSENTIAL (PRIMARY) HYPERTENSION Qualifiers: (7) [place] cardiac risk >20% in next 10 years Assessment/Plan: ECHO: normal LVEF; moderate pulmonary HTN. F/u lipids. For stress Lexiscan MIBI prior to clearance for LE amputation (toe). Code(s): Z91.89 - OTH PERSONAL RISK FACTORS, NOT ELSEWHERE CLASSIFIED
[2018-05-22] MEDS ORDERED: DEXTROSE 5%-WATER 200 ML IVPB ONE (15:04)
[2018-05-22] MEDS: CLOPIDOGREL BISULFATE 75 MG TABLET (FP) PO SCH (15:10)
[2018-05-22] MEDS: CALCITRIOL 0.25 MCG CAPSULE (FP) PO SCH (15:10)
[2018-05-22] MEDS: RANITIDINE HCL 150 MG TABLET (FP) PO SCH (15:10)
[2018-05-22] MEDS: FUROSEMIDE 40 MG TABLET (FP) PO SCH (15:10)
[2018-05-22] MEDS: ASPIRIN COATED 81 MG TABLET.EC PO SCH (15:10)
[2018-05-22] MEDS: NIFEdipine E.R 60 MG TABLET (UD) PO SCH ×2 (15:18→21:35)
--- NOTE | 2018-05-22 16:05 | PN ---
Progress Note (short form) - Note Progress Note: Patient seen in bed. present. vss tmax 98.4 +gangarene 4th toe left, +om, +dry gangarene wbc=8.7 PVD Gangarene OM Discussed with Dr. Paiz vascular intervention Tomorrow. Continue abx. Will follow. Explained to and time frame for debridement after vascular procedure. Problem List - Problems (1) Gangrene Code(s): I96 - GANGRENE, NOT ELSEWHERE CLASSIFIED
[2018-05-22] MEDS ORDERED: SODIUM CHLORIDE 250 ML IV PRN (16:47)
--- NOTE | 2018-05-22 16:47 | PN ---
Progress Note, Physician History of Present Illness: Pt seen and examined at bedside. He is awake and alert. He was getting cardiac testing for clearance today. - Current Medication List Current Medications: Active Medications Acetaminophen (Tylenol -) 650 mg PO Q6H PRN PRN Reason: PAIN LEVEL 1-5 Last Admin: 05/22/18 10:47 Dose: 650 mg Aspirin (Ecotrin -) 81 mg PO DAILY [facility] Last Admin: 05/22/18 15:10 Dose: 81 mg Calcitriol (Rocaltrol -) 0.25 mcg PO DAILY [facility] Last Admin: 05/22/18 15:10 Dose: 0.25 mcg Clopidogrel Bisulfate (Plavix -) 75 mg PO DAILY [facility] Last Admin: 05/22/18 15:10 Dose: 75 mg Docusate Sodium (Colace -) 100 mg PO TID [facility] Last Admin: 05/22/18 15:10 Dose: 100 mg Furosemide (Lasix -) 40 mg PO DAILY [facility] Last Admin: 05/22/18 15:10 Dose: 40 mg Heparin Sodium (Porcine) (Heparin -) 5,000 unit SQ TID [facility] Last Admin: 05/22/18 15:12 Dose: 5,000 unit Hydralazine HCl (Apresoline -) 100 mg PO TID [facility] Last Admin: 05/22/18 13:11 Dose: 100 mg Piperacillin Sod/Tazobactam (Sod 2.25 gm/ Dextrose) 100 mls @ 100 mls/hr IVPB Q8H-IV [facility]; Protocol Last Admin: 05/22/18 15:11 Dose: 100 mls/hr Insulin Aspart (Novolog Vial Sliding Scale -) 1 vial SQ ACHS [facility]; Protocol Last Admin: 05/22/18 15:15 Dose: Not Given Nifedipine (Procardia Xl -) 60 mg PO BID [facility] Last Admin: 05/22/18 15:18 Dose: 60 mg Oxycodone HCl (Roxicodone -) 5 mg PO Q6H PRN PRN Reason: PAIN LEVEL 6-10 Last Admin: 05/18/18 02:50 Dose: 5 mg Ranitidine HCl (Zantac -) 150 mg PO DAILY [facility] Last Admin: 05/22/18 15:10 Dose: 150 mg - Objective Vital Signs: Vital Signs Temperature 98.4 F 05/22/18 15:21 Pulse Rate 83 05/22/18 15:21 Respiratory Rate 18 05/22/18 15:21 Blood Pressure 130/76 05/22/18 15:21 O2 Sat by Pulse Oximetry (%) 98 05/21/18 21:00 Constitutional: Yes: Calm Eyes: Yes: Conjunctiva Clear HENT: Yes: Atraumatic Neck: Yes: Supple Cardiovascular: Yes: S1, S2 Respiratory: Yes: CTA Bilaterally Gastrointestinal: Yes: WNL Genitourinary: Yes: WNL Edema: No Neurological: Yes: Oriented Psychiatric: Yes: Oriented Labs: CBC, BMP 05/22/18 08:00 05/22/18 08:00 INR, PTT INR 1.09 (0.83-1.09) 05/14/18 21:24 Problem List - Problems (1) ESRD (end stage renal disease) Code(s): N18.6 - END STAGE RENAL DISEASE (2) Diabetes Code(s): E11.9 - TYPE 2 DIABETES MELLITUS WITHOUT COMPLICATIONS Qualifiers: Diabetes mellitus type: type 2 Diabetes mellitus halfway insulin use: without sports development officer use Diabetes mellitus complication detail: with chronic kidney disease Chronic kidney disease stage: stage 5, not on chronic dialysis (3) Hypertension Code(s): I10 - ESSENTIAL (PRIMARY) HYPERTENSION Qualifiers: Assessment/Plan Current Medications Generic Name Dose Route Start Last Admin Trade Name Freq PRN Reason Stop Dose Admin Acetaminophen 650 mg 05/15/18 11:00 05/22/18 10:47 Tylenol - PO 650 mg Q6H PRN Administration PAIN LEVEL 1-5 Aspirin 81 mg 05/15/18 10:00 05/22/18 15:10 Ecotrin - PO 81 mg DAILY [facility] Administration Calcitriol 0.25 mcg 05/17/18 10:00 05/22/18 15:10 Rocaltrol - PO 0.25 mcg DAILY [facility] Administration Clopidogrel Bisulfate 75 mg 05/15/18 10:00 05/22/18 15:10 Plavix - PO 75 mg DAILY [facility] Administration Docusate Sodium 100 mg 05/20/18 14:00 05/22/18 15:10 Colace - PO 100 mg TID [facility] Administration Furosemide 40 mg 05/15/18 10:00 05/22/18 15:10 Lasix - PO 40 mg DAILY [facility] Administration Heparin Sodium (Porcine) 5,000 unit 05/15/18 06:00 09/06/18 15:12 Heparin - SQ 5,000 unit TID [facility] Administration Hydralazine HCl 100 mg 05/20/18 22:00 05/22/18 13:11 Apresoline - PO 100 mg TID [facility] Administration Piperacillin Sod/Tazobactam 100 mls @ 100 mls/hr 05/15/18 19:15 05/22/18 15: 11 Sod 2.25 gm/ Dextrose IVPB 100 mls/hr Q8H-IV [facility] Administration Protocol Insulin Aspart 1 vial 05/15/18 07:00 05/22/18 15:15 Novolog Vial Sliding Scale - SQ Not Given ACHS [facility] Protocol Nifedipine 60 mg 05/16/18 22:00 05/22/18 15:18 Procardia Xl - PO 60 mg BID [facility] Administration Oxycodone HCl 5 mg 05/15/18 11:00 05/18/18 02:50 Roxicodone - PO 5 mg Q6H PRN Administration PAIN LEVEL 6-10 Ranitidine HCl 150 mg 05/16/18 16:30 05/22/18 15:10 Zantac - PO 150 mg DAILY [facility] Administration Impression 1. ESRD on HD 2. anemia 3. DM 4. HTN 5. toe infection/gangrene 6. PVD Plan - HD tomorrow - OR postponed, vascular follow up - cardio follow up for clearance - cont wound care - avf 3:30 400 abf - epogen 10,000 for anemia
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
[2018-05-22 17:27] LABS: CHOLESTEROL 189 mg/dL (50-200); HDL CHOLESTEROL 71 mg/dL (40-60); TRIGLYCERIDES 72 mg/dL (35-160)
[2018-05-23] MEDS ORDERED: PIPERACILLIN/TAZOBACTAM 2.25 GM VIAL IVPB ONE ×3 (01:16→21:21)
[2018-05-23] MEDS ORDERED: DEXTROSE 5%-WATER 100 ML IVPB ONE ×2 (01:17→09:11)
[2018-05-23] MEDS: PIPERACILLIN/TAZOB 2.25 GM 2.25 GM in DEXTROSE 5%-WATER 100 ML IVPB SCH ×2 (02:11→09:50)
[2018-05-23] MEDS: HEPARIN NA (PORCINE) 5,000 UNITS/ML 1ML VIAL SQ SCH ×2 (06:09→21:26)
[2018-05-23] MEDS: DOCUSATE SODIUM 100 MG CAPSULE (FP) PO SCH ×2 (06:09→21:25)
[2018-05-23] MEDS: hydrALAZINE HCL 50 MG TABLET (FP) PO SCH ×2 (06:13→21:25)
[2018-05-23] MEDS: INSULIN SLIDING SCALE (NOVOLOG) 1 VIAL SQ SCH ×2 (06:17→21:28)
[2018-05-23] MEDS: ACETAMINOPHEN 325 MG TABLET (FP) PO PRN (06:31)
[2018-05-23] MEDS ORDERED: ATORVASTATIN CA 20 MG TABLET (FP) PO ONE ×2 (09:29→17:23)
--- NOTE | 2018-05-23 09:40 | PN ---
Progress Note, Physician Chief Complaint: Pt A&Ox3; no chest pain or dyspnea History of Present Illness: 68 yo M with a hx of ESRD (on dialysis MWF last tx today), HTN, and DM presents to the emergency department with left 4th toe digit infection. Per the patient, he states it occurred 1 week ago and began as a small cut on the web space between the 3rd and 4th digit. He went to [facility] 1 week ago and treated with clindamycin (prescribed on 05/10/2018, compliant) but has been getting worse. Per the daughter, she noticed it turning black today. The patient states its painful, does not radiate, and is currently 4/10 throbbing and increases to 7/10 when walking. Denies the following: fever, chest pain, headache, dizziness , chills, diaphoresis, SOB, abdominal pain, hematuria, diarrhea, nausea, vomiting, and leg swelling/pain. Endorses having a cough for the past few days. Pmhx: Refer to above. On dialysis for 2 years. Shx: AV fistula left arm 2016 Meds: hydralazine, nifedipine, aspirin, renagel, and chlorthalid - Current Medication List Current Medications: Active Medications Acetaminophen (Tylenol -) 650 mg PO Q6H PRN PRN Reason: PAIN LEVEL 1-5 Last Admin: 05/23/18 06:31 Dose: 650 mg Aspirin (Ecotrin -) 81 mg PO DAILY [facility] Last Admin: 05/22/18 15:10 Dose: 81 mg Atorvastatin Calcium (Lipitor -) 20 mg PO ONCE ONE Stop: 05/23/18 09:30 Atorvastatin Calcium (Lipitor -) 20 mg PO [facility] Calcitriol (Rocaltrol -) 0.25 mcg PO DAILY [facility] Last Admin: 05/22/18 15:10 Dose: 0.25 mcg Clopidogrel Bisulfate (Plavix -) 75 mg PO DAILY [facility] Last Admin: 05/22/18 15:10 Dose: 75 mg Docusate Sodium (Colace -) 100 mg PO TID [facility] Last Admin: 05/23/18 06:09 Dose: Not Given Epoetin Thomas (Procrit -) 10,000 unit IVPUSH ONCE ONE Stop: 05/23/18 16:48 Furosemide (Lasix -) 40 mg PO DAILY [facility] Last Admin: 05/22/18 15:10 Dose: 40 mg Heparin Sodium (Porcine) (Heparin -) 5,000 unit SQ TID [facility] Last Admin: 05/23/18 06:09 Dose: Not Given Hydralazine HCl (Apresoline -) 100 mg PO TID [facility] Last Admin: 05/23/18 06:13 Dose: Not Given Piperacillin Sod/Tazobactam (Sod 2.25 gm/ Dextrose) 100 mls @ 100 mls/hr IVPB Q8H-IV [facility]; Protocol Last Admin: 05/23/18 02:11 Dose: 100 mls/hr Sodium Chloride (Normal Saline -) 250 mls @ 3,000 mls/hr IV PRN PRN PRN Reason: Hypotension during Dialysis Stop: 05/23/18 16:47 Insulin Aspart (Novolog Vial Sliding Scale -) 1 vial SQ ACHS [facility]; Protocol Last Admin: 05/23/18 06:17 Dose: Not Given Nifedipine (Procardia Xl -) 60 mg PO BID [facility] Last Admin: 05/22/18 21:35 Dose: 60 mg Oxycodone HCl (Roxicodone -) 5 mg PO Q6H PRN PRN Reason: PAIN LEVEL 6-10 Last Admin: 05/18/18 02:50 Dose: 5 mg Ranitidine HCl (Zantac -) 150 mg PO DAILY [facility] Last Admin: 05/22/18 15:10 Dose: 150 mg - Objective Vital Signs: Vital Signs Temperature 98.2 F 05/23/18 06:19 Pulse Rate 69 05/23/18 06:19 Respiratory Rate 20 05/23/18 06:19 Blood Pressure 119/52 05/23/18 06:19 O2 Sat by Pulse Oximetry (%) 98 05/22/18 21:00 Constitutional: Yes: Calm Eyes: Yes: WNL HENT: Yes: WNL Neck: Yes: WNL Cardiovascular: Yes: S1, S2 Respiratory: Yes: WNL Gastrointestinal: Yes: WNL ...Rectal Exam: Yes: Deferred Genitourinary: No: Anuria Musculoskeletal: Yes: Muscle Weakness Extremities: Yes: Cool Edema: No Peripheral Pulses WNL: No Peripheral Pulses: Left Doralis Pedis: 1+, Right Dorsalis Pedis: 1+ Integumentary: Yes: Other (left 4th toe black (gangrene)) Neurological: Yes: Alert, Oriented Labs: CBC, BMP 05/22/18 08:00 05/22/18 08:00 INR, PTT INR 1.09 (0.83-1.09) 05/14/18 21:24 Problem List - Problems (1) ESRD (end stage renal disease) Assessment/Plan: hemodialysis 3x weekly peer warehouse stocker Code(s): N18.6 - END STAGE RENAL DISEASE (2) Gangrene Code(s): I96 - GANGRENE, NOT ELSEWHERE CLASSIFIED (3) AV fistula Code(s): I77.0 - ARTERIOVENOUS FISTULA, ACQUIRED (4) Abnormal ECG Code(s): R94.31 - ABNORMAL ELECTROCARDIOGRAM [ECG] [EKG] (5) Diabetes Code(s): E11.9 - TYPE 2 DIABETES MELLITUS WITHOUT COMPLICATIONS Qualifiers: Diabetes mellitus type: type 2 Diabetes mellitus termite helper insulin use: without halfway use Diabetes mellitus complication detail: with chronic kidney disease Chronic kidney disease stage: stage 5, not on chronic dialysis (6) Hypertension Assessment/Plan: On nifedipine, hydralazine, furosemide. Start losartan 25 mg daily (hx CAD, DM, HTN) Consider spironolactone if BP remains refractory to Rx. Code(s): I10 - ESSENTIAL (PRIMARY) HYPERTENSION Qualifiers: (7) [place] cardiac risk >20% in next 10 years Assessment/Plan: ECHO: normal LVEF; moderate pulmonary HTN. Elevated LDL: start atorvastatin; keep LDL < 70 mg/dL. Stress MIBI results: small area of mildly intense inferoapical ischemia. From a cardiac standpoint, there are no absolute contraindications for Mr Moreno to undergo LE angiogram/angioplasty and amputation. Code(s): Z91.89 - OTH PERSONAL RISK FACTORS, NOT ELSEWHERE CLASSIFIED
[2018-05-23] MEDS: CALCITRIOL 0.25 MCG CAPSULE (FP) PO SCH (09:49)
[2018-05-23] MEDS: NIFEdipine E.R 60 MG TABLET (UD) PO SCH ×2 (09:50→21:24)
[2018-05-23] MEDS: FUROSEMIDE 40 MG TABLET (FP) PO SCH (09:50)
[2018-05-23] MEDS: ASPIRIN COATED 81 MG TABLET.EC PO SCH (09:50)
[2018-05-23] MEDS: CLOPIDOGREL BISULFATE 75 MG TABLET (FP) PO SCH (09:50)
[2018-05-23] MEDS: RANITIDINE HCL 150 MG TABLET (FP) PO SCH (09:50)
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
[2018-05-23] MEDS ORDERED: PROPOFOL 20 ML ONE ×2 (14:24)
[2018-05-23] MEDS ORDERED: MIDAZOLAM HCL 2 MG/2 ML SINGLE DOSE VIAL ONE (14:24)
[2018-05-23] MEDS ORDERED: ceFAZolin SODIUM 1 GM VIAL ONE (14:31)
[2018-05-23] MEDS ORDERED: LIDOCAINE HCL/PF 2% SDV 5ML VIAL ONE (14:34)
[2018-05-23] MEDS ORDERED: LIDOCAINE HCL 1%, 10 MG/ML (20ML VIAL) PNB ONE (14:38)
--- NOTE | 2018-05-23 14:44 | PN ---
Progress Note, Physician History of Present Illness: Pt seen and examined at bedside. He is awake and alert. He is scheduled for angiogram today then HD. - Current Medication List Current Medications: Active Medications Acetaminophen (Tylenol -) 650 mg PO Q6H PRN PRN Reason: PAIN LEVEL 1-5 Last Admin: 05/23/18 06:31 Dose: 650 mg Aspirin (Ecotrin -) 81 mg PO DAILY [facility] Last Admin: 05/23/18 09:50 Dose: 81 mg Atorvastatin Calcium (Lipitor -) 20 mg PO [facility] Calcitriol (Rocaltrol -) 0.25 mcg PO DAILY [facility] Last Admin: 05/23/18 09:49 Dose: 0.25 mcg Clopidogrel Bisulfate (Plavix -) 75 mg PO DAILY [facility] Last Admin: 05/23/18 09:50 Dose: 75 mg Docusate Sodium (Colace -) 100 mg PO TID [facility] Last Admin: 05/23/18 06:09 Dose: Not Given Epoetin Thomas (Procrit -) 10,000 unit IVPUSH ONCE ONE Stop: 05/23/18 16:48 Furosemide (Lasix -) 40 mg PO DAILY [facility] Last Admin: 05/23/18 09:50 Dose: 40 mg Heparin Sodium (Porcine) (Heparin -) 5,000 unit SQ TID [facility] Last Admin: 05/23/18 06:09 Dose: Not Given Hydralazine HCl (Apresoline -) 100 mg PO TID [facility] Last Admin: 05/23/18 06:13 Dose: Not Given Piperacillin Sod/Tazobactam (Sod 2.25 gm/ Dextrose) 100 mls @ 100 mls/hr IVPB Q8H-IV [facility]; Protocol Last Admin: 05/23/18 09:50 Dose: 100 mls/hr Sodium Chloride (Normal Saline -) 250 mls @ 3,000 mls/hr IV PRN PRN PRN Reason: Hypotension during Dialysis Stop: 05/23/18 16:47 Insulin Aspart (Novolog Vial Sliding Scale -) 1 vial SQ ACHS [facility]; Protocol Last Admin: 05/23/18 06:17 Dose: Not Given Nifedipine (Procardia Xl -) 60 mg PO BID [facility] Last Admin: 05/23/18 09:50 Dose: 60 mg Oxycodone HCl (Roxicodone -) 5 mg PO Q6H PRN PRN Reason: PAIN LEVEL 6-10 Last Admin: 05/18/18 02:50 Dose: 5 mg Ranitidine HCl (Zantac -) 150 mg PO DAILY [facility] Last Admin: 05/23/18 09:50 Dose: Not Given - Objective Vital Signs: Vital Signs Temperature 98.2 F 05/23/18 10:00 Pulse Rate 68 05/23/18 10:00 Respiratory Rate 20 05/23/18 10:00 Blood Pressure 140/75 05/23/18 10:00 O2 Sat by Pulse Oximetry (%) 98 05/23/18 09:00 Constitutional: Yes: Calm Eyes: Yes: Conjunctiva Clear HENT: Yes: Atraumatic Neck: Yes: Supple Cardiovascular: Yes: S1, S2 Respiratory: Yes: CTA Bilaterally Gastrointestinal: Yes: Soft Genitourinary: Yes: WNL Musculoskeletal: Yes: Other (leg pain) Edema: No Neurological: Yes: Oriented Psychiatric: Yes: Oriented Labs: CBC, BMP 05/22/18 08:00 05/22/18 08:00 INR, PTT INR 1.09 (0.83-1.09) 05/14/18 21:24 Problem List - Problems (1) ESRD (end stage renal disease) Code(s): N18.6 - END STAGE RENAL DISEASE (2) Diabetes Code(s): E11.9 - TYPE 2 DIABETES MELLITUS WITHOUT COMPLICATIONS Qualifiers: Diabetes mellitus type: type 2 Diabetes mellitus custodial insulin use: without custodial use Diabetes mellitus complication detail: with chronic kidney disease Chronic kidney disease stage: stage 5, not on chronic dialysis (3) Hypertension Code(s): I10 - ESSENTIAL (PRIMARY) HYPERTENSION Qualifiers: Assessment/Plan Current Medications Generic Name Dose Route Start Last Admin Trade Name Freq PRN Reason Stop Dose Admin Acetaminophen 650 mg 05/15/18 11:00 05/23/18 06:31 Tylenol - PO 650 mg Q6H PRN Administration PAIN LEVEL 1-5 Aspirin 81 mg 05/15/18 10:00 05/23/18 09:50 Ecotrin - PO 81 mg DAILY [facility] Administration Atorvastatin Calcium 20 mg 05/24/18 22:00 Lipitor - PO HS [facility] Calcitriol 0.25 mcg 05/17/18 10:00 05/23/18 09:49 Rocaltrol - PO 0.25 mcg DAILY [facility] Administration Clopidogrel Bisulfate 75 mg 05/15/18 10:00 05/23/18 09:50 Plavix - PO 75 mg DAILY [facility] Administration Docusate Sodium 100 mg 05/20/18 14:00 05/23/18 06:09 Colace - PO Not Given TID [facility] Epoetin Thomas 10,000 unit 05/23/18 16:47 Procrit - IVPUSH 05/23/18 16:48 ONCE ONE Furosemide 40 mg 05/15/18 10:00 05/23/18 09:50 Lasix - PO 40 mg DAILY [facility] Administration Heparin Sodium (Porcine) 5,000 unit 05/15/18 06:00 05/23/18 06:09 Heparin - SQ Not Given TID [facility] Hydralazine HCl 100 mg 05/20/18 22:00 05/23/18 06:13 Apresoline - PO Not Given TID [facility] Piperacillin Sod/Tazobactam 100 mls @ 100 mls/hr 05/15/18 19:15 05/23/18 09: 50 Sod 2.25 gm/ Dextrose IVPB 100 mls/hr Q8H-IV [facility] Administration Protocol Sodium Chloride 250 mls @ 3,000 mls/hr 05/22/18 16:47 Normal Saline - IV 05/23/18 16:47 PRN PRN Hypotension during Dialysis Insulin Aspart 1 vial 05/15/18 07:00 05/23/18 06:17 Novolog Vial Sliding Scale - SQ Not Given ACHS [facility] Protocol Nifedipine 60 mg 05/16/18 22:00 05/23/18 09:50 Procardia Xl - PO 60 mg BID [facility] Administration Oxycodone HCl 5 mg 05/15/18 11:00 05/18/18 02:50 Roxicodone - PO 5 mg Q6H PRN Administration PAIN LEVEL 6-10 Ranitidine HCl 150 mg 05/16/18 16:30 05/23/18 09:50 Zantac - PO Not Given DAILY [facility] Selected Entries 05/22/18 05/23/18 05/23/18 22:00 06:19 10:00 Blood Pressure 157/53 119/52 140/75 Impression 1. ESRD on HD 2. anemia 3. DM 4. HTN 5. toe infection/gangrene 6. PVD Plan - pt getting angiogram - HD today - follow vascular findings - cont wound care - avf 3:30 400 abf - epogen 10,000 for anemia
[2018-05-23] MEDS ORDERED: PROTAMINE SULFATE 50 MG/5 ML VIAL ONE (15:49)
--- NOTE | 2018-05-23 16:44 | OP ---
Operative Note - Note: Operative Date: 05/23/18 Pre-Operative Diagnosis: left foot toe gangrene Operation: Aortagram, LLE angiogram, TP trunk atherectomy, tibial artery angioplasty Findings: AT stenosis TP trunk stenosis Post-Operative Diagnosis: Same as Pre-op Surgeon: Kel Paiz Anesthesia: Fractional Estimated Blood Loss (mls): 75 Operative Report Dictated: Yes
[2018-05-23] MEDS ORDERED: EPOETIN ALFA 10,000 UNIT/1 ML VIAL IVPUSH ONE ×2 (16:47→17:23)
[2018-05-23] MEDS ORDERED: SODIUM CHLORIDE 250 ML IV PRN (17:23)
--- NOTE | 2018-05-23 18:42 | PN ---
Progress Note (short form) - Note Progress Note: Vascular Surgery S/P atherectomy of left TP trunk and tibial artery angioplasty. Pt has good dopplerable signal in DP. 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 The DP stops in the forefoot. Not sure if the toe will heal if we amputate it. Recc conservative management via wound care and HBO to help heal toe before jumping to amputation. Follow up in wound care. Plavix started on pt. Kel Paiz DO
[2018-05-23 19:00] LABS: HEMATOCRIT 28.4 % (35.4-49); HEMOGLOBIN 9.8 GM/dL (11.7-16.9); MCH 34.9 pg (25.7-33.7); MCHC 34.5 g/dl (32.0-35.9); MEAN CELL VOLUME 101.2 fl (80-96); MEAN PLT VOLUME 8.5 fl (7.5-11.1); PLATELET COUNT 268 K/MM3 (134-434); RBC 2.81 M/mm3 (4.00-5.60); RDW 16.8 % (11.9-15.9)
[2018-05-23 19:36] LABS: ANION GAP 14 MMOL/L (8-16); BLOOD UREA NITROGEN 26 mg/dL (7-18); CALCIUM 9.3 mg/dL (8.5-10.1); CHLORIDE 98 mmol/L (98-107); CO2 26 mmol/L (21-32); GLUCOSE,RANDOM 115 mg/dL (74-106); POTASSIUM 4.7 mmol/L (3.5-5.1); SODIUM 138 mmol/L (136-145)
[2018-05-23] MEDS ORDERED: INSULIN (NOVOLOG) ASPART 100 UNITS/ML 10ML VIAL ONE (21:20)
[2018-05-23] MEDS ORDERED: DEXTROSE 5%-WATER - 50 ML IVPB ONE (21:21)
[2018-05-23] MEDS: oxyCODONE HCL 5 MG TABLET PO PRN (21:24)
[2018-05-23] MEDS: PIPERACILLIN/TAZOB 2.25 GM 2.25 GM in DEXTROSE 5%-WATER - 50 ML IVPB SCH (21:25)
[2018-05-24] MEDS ORDERED: PIPERACILLIN/TAZOBACTAM 2.25 GM VIAL IVPB ONE ×3 (01:55→17:32)
[2018-05-24] MEDS ORDERED: DEXTROSE 5%-WATER - 50 ML IVPB ONE ×3 (01:55→17:32)
[2018-05-24] MEDS: PIPERACILLIN/TAZOB 2.25 GM 2.25 GM in DEXTROSE 5%-WATER - 50 ML IVPB SCH ×3 (03:35→17:55)
[2018-05-24] MEDS: INSULIN SLIDING SCALE (NOVOLOG) 1 VIAL SQ SCH ×5 (05:47→21:05)
[2018-05-24] MEDS: HEPARIN NA (PORCINE) 5,000 UNITS/ML 1ML VIAL SQ SCH ×4 (05:47→21:03)
[2018-05-24] MEDS: hydrALAZINE HCL 50 MG TABLET (FP) PO SCH ×4 (05:47→21:03)
[2018-05-24] MEDS: DOCUSATE SODIUM 100 MG CAPSULE (FP) PO SCH ×4 (05:47→21:03)
[2018-05-24] MEDS: ACETAMINOPHEN 325 MG TABLET (FP) PO PRN (06:03)
[2018-05-24] MEDS: ASPIRIN COATED 81 MG TABLET.EC PO SCH (09:19)
[2018-05-24] MEDS: CALCITRIOL 0.25 MCG CAPSULE (FP) PO SCH (09:19)
[2018-05-24] MEDS: RANITIDINE HCL 150 MG TABLET (FP) PO SCH (09:19)
[2018-05-24] MEDS: FUROSEMIDE 40 MG TABLET (FP) PO SCH (09:19)
[2018-05-24] MEDS: CLOPIDOGREL BISULFATE 75 MG TABLET (FP) PO SCH (09:19)
[2018-05-24] MEDS: NIFEdipine E.R 60 MG TABLET (UD) PO SCH ×2 (09:19→21:03)
--- NOTE | 2018-05-24 10:37 | PN ---
Progress Note (short form) - Note Progress Note: 1. ESRD on HD 2. anemia 3. DM 4. HTN 5. toe infection/gangrene 6. PVD Active Medications Acetaminophen (Tylenol -) 650 mg PO Q6H PRN PRN Reason: PAIN LEVEL 1-5 Last Admin: 05/24/18 06:03 Dose: 650 mg Aspirin (Ecotrin -) 81 mg PO DAILY [facility] Last Admin: 05/24/18 09:19 Dose: 81 mg Atorvastatin Calcium (Lipitor -) 20 mg PO [facility] Calcitriol (Rocaltrol -) 0.25 mcg PO DAILY [facility] Last Admin: 05/24/18 09:19 Dose: 0.25 mcg Clopidogrel Bisulfate (Plavix -) 75 mg PO DAILY [facility] Last Admin: 05/24/18 09:19 Dose: 75 mg Docusate Sodium (Colace -) 100 mg PO TID [facility] Last Admin: 05/24/18 06:09 Dose: Not Given Fentanyl (Sublimaze Injection -) 50 mcg IVPUSH [id number] PRN PRN Reason: PAIN-PACU ORDER X 4 DOSES ONLY Furosemide (Lasix -) 40 mg PO DAILY [facility] Last Admin: 05/24/18 09:19 Dose: 40 mg Heparin Sodium (Porcine) (Heparin -) 5,000 unit SQ TID [facility] Last Admin: 05/24/18 06:03 Dose: 5,000 unit Hydralazine HCl (Apresoline -) 100 mg PO TID [facility] Last Admin: 05/24/18 06:02 Dose: 100 mg Sodium Chloride (Normal Saline -) 250 mls @ 3,000 mls/hr IV PRN PRN PRN Reason: Hypotension during Dialysis Piperacillin Sod/Tazobactam (Sod 2.25 gm/ Dextrose) 50 mls @ 100 mls/hr IVPB Q8H-IV [facility]; Protocol Last Admin: 05/24/18 09:18 Dose: 100 mls/hr Insulin Aspart (Novolog Vial Sliding Scale -) 1 vial SQ ACHS [facility]; Protocol Last Admin: 05/24/18 06:21 Dose: Not Given Nifedipine (Procardia Xl -) 60 mg PO BID [facility] Last Admin: 05/24/18 09:19 Dose: 60 mg Oxycodone HCl (Roxicodone -) 5 mg PO Q6H PRN PRN Reason: PAIN LEVEL 6-10 Last Admin: 05/23/18 21:24 Dose: 5 mg Ranitidine HCl (Zantac -) 150 mg PO DAILY [facility] Last Admin: 05/24/18 09:19 Dose: 150 mg Last Vital Signs Temp Pulse Resp BP Pulse Ox 100 F H 66 20 160/68 95 05/24/18 05:53 05/24/18 05:53 05/24/18 05:53 05/24/18 05:53 05/23/18 21:10 Lungs clear Heart s1s2 Abd soft nontender ext no edema IMP- esrd pvd toe infection Plan- HD saturday
--- NOTE | 2018-05-24 11:33 | PN ---
Progress Note (short form) - Note Progress Note: Patient seen in bed. vss tmax 100.0f +gangarene 4th toe left, +om, +dry gangarene wbc=8.0 PVD Gangarene OM Read and appreciated vascular note. Patient not cleared for amputation of toe as Dr. Paiz feels poor chance of healing. Continue abx. Will follow. Dr. Paiz to follow in wound care. Will refer back to me if intervention necessary. Continue post op shoe to left foot. Problem List - Problems (1) Gangrene Code(s): I96 - GANGRENE, NOT ELSEWHERE CLASSIFIED
[2018-05-24 12:42] LABS: BASO % 1.1 % (0-2.0); EOS % 3.7 % (0-4.5); HEMOGLOBIN 9.3 GM/dL (11.7-16.9); LYMPH % 8.4 % (8-40); MCH 35.1 pg (25.7-33.7); MCHC 34.7 g/dl (32.0-35.9); MEAN CELL VOLUME 101.2 fl (80-96); MEAN PLT VOLUME 8.2 fl (7.5-11.1); MONO % 10.9 % (3.8-10.2); NEUT % 75.9 % (42.8-82.8); PLATELET COUNT 273 K/MM3 (134-434); RBC 2.66 M/mm3 (4.00-5.60); RDW 16.5 % (11.9-15.9); WHITE BLOOD COUNT 9.2 K/mm3 (4.0-10.0)
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
--- NOTE | 2018-05-24 17:13 | PN ---
Progress Note (short form) - Note Progress Note: Anesthesia post op note, POD#1, S/P atherectomy of left TP trunk and tibial artery angioplasty. VSS. No apparent post anesthesia complications. signed off.
[2018-05-24] MEDS: oxyCODONE HCL 5 MG TABLET PO PRN (21:02)
[2018-05-24] MEDS: ATORVASTATIN CA 20 MG TABLET (FP) PO SCH (21:05)
[2018-05-24] MEDS ORDERED: ATORVASTATIN CA 20 MG TABLET (FP) PO SCH (22:00)
[2018-05-25] MEDS ORDERED: PIPERACILLIN/TAZOBACTAM 2.25 GM VIAL IVPB ONE ×4 (01:40→23:41)
[2018-05-25] MEDS ORDERED: DEXTROSE 5%-WATER - 50 ML IVPB ONE ×4 (01:41→23:41)
[2018-05-25] MEDS: PIPERACILLIN/TAZOB 2.25 GM 2.25 GM in DEXTROSE 5%-WATER - 50 ML IVPB SCH ×3 (02:30→18:02)
[2018-05-25] MEDS: HEPARIN NA (PORCINE) 5,000 UNITS/ML 1ML VIAL SQ SCH (06:46)
[2018-05-25] MEDS: DOCUSATE SODIUM 100 MG CAPSULE (FP) PO SCH ×3 (06:46→21:11)
[2018-05-25] MEDS: hydrALAZINE HCL 50 MG TABLET (FP) PO SCH ×3 (06:48→21:11)
[2018-05-25] MEDS: oxyCODONE HCL 5 MG TABLET PO PRN ×2 (06:48→14:24)
[2018-05-25] MEDS: INSULIN SLIDING SCALE (NOVOLOG) 1 VIAL SQ SCH ×4 (06:56→21:13)
[2018-05-25] MEDS: FUROSEMIDE 40 MG TABLET (FP) PO SCH (09:17)
[2018-05-25] MEDS: CLOPIDOGREL BISULFATE 75 MG TABLET (FP) PO SCH (09:17)
[2018-05-25] MEDS: ASPIRIN COATED 81 MG TABLET.EC PO SCH (09:17)
[2018-05-25] MEDS: RANITIDINE HCL 150 MG TABLET (FP) PO SCH (09:18)
[2018-05-25] MEDS: CALCITRIOL 0.25 MCG CAPSULE (FP) PO SCH (09:18)
[2018-05-25] MEDS: NIFEdipine E.R 60 MG TABLET (UD) PO SCH ×2 (09:18→21:11)
--- NOTE | 2018-05-25 10:32 | PN ---
Progress Note, Physician Chief Complaint: Cardiology for [place] Seen and examined in no distress Right groin slightly oozing. D/w Dr. Paiz Denies SOB or chest pain - Current Medication List Current Medications: Active Medications Acetaminophen (Tylenol -) 650 mg PO Q6H PRN PRN Reason: PAIN LEVEL 1-5 Last Admin: 05/24/18 06:03 Dose: 650 mg Aspirin (Ecotrin -) 81 mg PO DAILY [facility] Last Admin: 05/25/18 09:17 Dose: 81 mg Atorvastatin Calcium (Lipitor -) 20 mg PO HS [facility] Last Admin: 05/24/18 21:05 Dose: 20 mg Calcitriol (Rocaltrol -) 0.25 mcg PO DAILY [facility] Last Admin: 05/25/18 09:18 Dose: 0.25 mcg Clopidogrel Bisulfate (Plavix -) 75 mg PO DAILY [facility] Last Admin: 05/25/18 09:17 Dose: 75 mg Docusate Sodium (Colace -) 100 mg PO TID [facility] Last Admin: 05/25/18 06:46 Dose: 100 mg Fentanyl (Sublimaze Injection -) 50 mcg IVPUSH [id number] PRN PRN Reason: PAIN-PACU ORDER X 4 DOSES ONLY Furosemide (Lasix -) 40 mg PO DAILY [facility] Last Admin: 05/25/18 09:17 Dose: 40 mg Heparin Sodium (Porcine) (Heparin -) 5,000 unit SQ TID [facility] Last Admin: 05/25/18 06:46 Dose: 5,000 unit Hydralazine HCl (Apresoline -) 100 mg PO TID [facility] Last Admin: 05/25/18 06:48 Dose: 100 mg Sodium Chloride (Normal Saline -) 250 mls @ 3,000 mls/hr IV PRN PRN PRN Reason: Hypotension during Dialysis Piperacillin Sod/Tazobactam (Sod 2.25 gm/ Dextrose) 50 mls @ 100 mls/hr IVPB Q8H-IV [facility]; Protocol Last Admin: 05/25/18 09:17 Dose: 100 mls/hr Insulin Aspart (Novolog Vial Sliding Scale -) 1 vial SQ ACHS [facility]; Protocol Last Admin: 05/25/18 06:56 Dose: Not Given Nifedipine (Procardia Xl -) 60 mg PO BID [facility] Last Admin: 05/25/18 09:18 Dose: 60 mg Oxycodone HCl (Roxicodone -) 5 mg PO Q6H PRN PRN Reason: PAIN LEVEL 6-10 Last Admin: 05/25/18 06:48 Dose: 5 mg Ranitidine HCl (Zantac -) 150 mg PO DAILY [facility] Last Admin: 05/25/18 09:18 Dose: 150 mg - Objective Vital Signs: Vital Signs Temperature 98.4 F 05/25/18 06:00 Pulse Rate 74 05/25/18 06:00 Respiratory Rate 18 05/25/18 06:00 Blood Pressure 164/74 05/25/18 06:00 O2 Sat by Pulse Oximetry (%) 97 05/24/18 21:00 Constitutional: Yes: No Distress Cardiovascular: Yes: Regular Rate and Rhythm Respiratory: Yes: CTA Bilaterally Extremities: Yes: Other (right groin arteriotomy site with slight ooze, nontender) Neurological: Yes: Alert, Oriented ...Motor Strength: WNL Labs: CBC, BMP 05/24/18 12:00 05/23/18 17:45 INR, PTT INR 1.09 (0.83-1.09) 05/14/18 21:24 Assessment/Plan IMP: ESRD DM PAD Left lower 4th toe gangrene/ osteomylitis seen on MRI: s/p atherectomy of left TP trunk and tibial artery angioplasty REC: D/w Dr. Paiz. Sandbag pressure to right groin, serial assessment of groin. Vascular f/u. Otherwise hemodynamically stable at this time with stable H/H.
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
--- NOTE | 2018-05-25 14:43 | PN ---
Progress Note (short form) - Note Progress Note: 1. ESRD on HD 2. anemia 3. DM 4. HTN 5. toe infection/gangrene 6. PVD Current Medications Acetaminophen (Tylenol -) 650 mg PO Q6H PRN PRN Reason: PAIN LEVEL 1-5 Last Admin: 05/24/18 06:03 Dose: 650 mg Aspirin (Ecotrin -) 81 mg PO DAILY [facility] Last Admin: 05/25/18 09:17 Dose: 81 mg Atorvastatin Calcium (Lipitor -) 20 mg PO HS [facility] Last Admin: 05/24/18 21:05 Dose: 20 mg Calcitriol (Rocaltrol -) 0.25 mcg PO DAILY [facility] Last Admin: 05/25/18 09:18 Dose: 0.25 mcg Clopidogrel Bisulfate (Plavix -) 75 mg PO DAILY [facility] Last Admin: 05/25/18 09:17 Dose: 75 mg Docusate Sodium (Colace -) 100 mg PO TID [facility] Last Admin: 05/25/18 14:23 Dose: 100 mg Fentanyl (Sublimaze Injection -) 50 mcg IVPUSH [id number] PRN PRN Reason: PAIN-PACU ORDER X 4 DOSES ONLY Furosemide (Lasix -) 40 mg PO DAILY [facility] Last Admin: 05/25/18 09:17 Dose: 40 mg Heparin Sodium (Porcine) (Heparin -) 5,000 unit SQ TID [facility] Last Admin: 05/25/18 06:46 Dose: 5,000 unit Hydralazine HCl (Apresoline -) 100 mg PO TID [facility] Last Admin: 05/25/18 14:23 Dose: 100 mg Sodium Chloride (Normal Saline -) 250 mls @ 3,000 mls/hr IV PRN PRN PRN Reason: Hypotension during Dialysis Piperacillin Sod/Tazobactam (Sod 2.25 gm/ Dextrose) 50 mls @ 100 mls/hr IVPB Q8H-IV [facility]; Protocol Last Admin: 05/25/18 09:17 Dose: 100 mls/hr Insulin Aspart (Novolog Vial Sliding Scale -) 1 vial SQ ACHS [facility]; Protocol Last Admin: 05/25/18 12:03 Dose: 4 units Nifedipine (Procardia Xl -) 60 mg PO BID [facility] Last Admin: 05/25/18 09:18 Dose: 60 mg Oxycodone HCl (Roxicodone -) 5 mg PO Q6H PRN PRN Reason: PAIN LEVEL 6-10 Last Admin: 05/25/18 14:24 Dose: 5 mg Ranitidine HCl (Zantac -) 150 mg PO DAILY [facility] Last Admin: 05/25/18 09:18 Dose: 150 mg Last Vital Signs Temp Pulse Resp BP Pulse Ox 98.4 F 74 18 164/74 97 05/25/18 06:00 05/25/18 06:00 05/25/18 06:00 05/25/18 06:00 05/24/18 21:00 S- refused blood work says he's not getting renagel that he was on before Lungs clear Heart s1s2 Abd soft nontender ext no edema CBC, BMP 05/24/18 12:00 05/23/18 17:45 IMP- esrd needs updated labs for the phosphorus pvd toe infection Plan- HD saturday
[2018-05-25] MEDS ORDERED: SODIUM CHLORIDE 250 ML IV PRN (14:46)
[2018-05-25] MEDS: ACETAMINOPHEN 325 MG TABLET (FP) PO PRN (16:38)
[2018-05-25] MEDS ORDERED: INSULIN (NOVOLOG) ASPART 100 UNITS/ML 10ML VIAL ONE (20:38)
[2018-05-25] MEDS: ATORVASTATIN CA 20 MG TABLET (FP) PO SCH (21:11)
[2018-05-26] MEDS: PIPERACILLIN/TAZOB 2.25 GM 2.25 GM in DEXTROSE 5%-WATER - 50 ML IVPB SCH ×3 (02:10→17:35)
[2018-05-26] MEDS: ACETAMINOPHEN 325 MG TABLET (FP) PO PRN ×2 (02:13→11:03)
[2018-05-26] MEDS: DOCUSATE SODIUM 100 MG CAPSULE (FP) PO SCH ×3 (06:01→21:31)
[2018-05-26] MEDS: hydrALAZINE HCL 50 MG TABLET (FP) PO SCH ×3 (06:01→21:31)
[2018-05-26] MEDS: INSULIN SLIDING SCALE (NOVOLOG) 1 VIAL SQ SCH ×4 (06:06→21:35)
[2018-05-26] MEDS ORDERED: DEXTROSE 5%-WATER - 50 ML IVPB ONE (09:19)
[2018-05-26] MEDS ORDERED: PIPERACILLIN/TAZOBACTAM 2.25 GM VIAL IVPB ONE ×2 (09:19→17:13)
[2018-05-26] MEDS: ASPIRIN COATED 81 MG TABLET.EC PO SCH (09:21)
[2018-05-26] MEDS: RANITIDINE HCL 150 MG TABLET (FP) PO SCH (09:21)
[2018-05-26] MEDS: FUROSEMIDE 40 MG TABLET (FP) PO SCH (09:21)
[2018-05-26] MEDS: CALCITRIOL 0.25 MCG CAPSULE (FP) PO SCH (09:21)
[2018-05-26] MEDS: NIFEdipine E.R 60 MG TABLET (UD) PO SCH ×2 (09:21→21:31)
[2018-05-26] MEDS: CLOPIDOGREL BISULFATE 75 MG TABLET (FP) PO SCH (09:21)
[2018-05-26 10:40] LABS: BASO % 1.2 % (0-2.0); EOS % 3.6 % (0-4.5); HEMATOCRIT 28.4 % (35.4-49); HEMOGLOBIN 9.8 GM/dL (11.7-16.9); LYMPH % 8.6 % (8-40); MCH 34.9 pg (25.7-33.7); MCHC 34.7 g/dl (32.0-35.9); MEAN CELL VOLUME 100.6 fl (80-96); MEAN PLT VOLUME 8.2 fl (7.5-11.1); MONO % 12.3 % (3.8-10.2); NEUT % 74.3 % (42.8-82.8); PLATELET COUNT 308 K/MM3 (134-434); RBC 2.82 M/mm3 (4.00-5.60); RDW 17.6 % (11.9-15.9); WHITE BLOOD COUNT 9.9 K/mm3 (4.0-10.0)
[2018-05-26 11:56] LABS: ALBUMIN 3.2 g/dl (3.4-5.0); ALK PHOS 192 U/L (45-117); ANION GAP 17 MMOL/L (8-16); BILIRUBIN,TOTAL 0.7 mg/dL (0.2-1.0); BLOOD UREA NITROGEN 31 mg/dL (7-18); CALCIUM 9.8 mg/dL (8.5-10.1); CHLORIDE 96 mmol/L (98-107); CO2 23 mmol/L (21-32); GLUCOSE,RANDOM 140 mg/dL (74-106); MAGNESIUM 2.5 mg/dL (1.8-2.4); PHOSPHOROUS 7.8 mg/dL (2.5-4.9); SGOT/AST 18 U/L (15-37); SGPT/ALT 11 U/L (12-78); SODIUM 136 mmol/L (136-145); TOT PROT 7.7 g/dl (6.4-8.2)
[2018-05-26 12:06] LABS: CREATININE 9.6 mg/dL (0.7-1.3)
--- NOTE | 2018-05-26 13:31 | PN ---
Progress Note, Physician History of Present Illness: Pt seen and examined at bedside He is currently getting HD. He denies shortness of breath. - Current Medication List Current Medications: Active Medications Acetaminophen (Tylenol -) 650 mg PO Q6H PRN PRN Reason: PAIN LEVEL 1-5 Last Admin: 05/26/18 11:03 Dose: 650 mg Aspirin (Ecotrin -) 81 mg PO DAILY [facility] Last Admin: 05/26/18 09:21 Dose: 81 mg Atorvastatin Calcium (Lipitor -) 20 mg PO HS [facility] Last Admin: 05/25/18 21:11 Dose: 20 mg Calcitriol (Rocaltrol -) 0.25 mcg PO DAILY [facility] Last Admin: 05/26/18 09:21 Dose: 0.25 mcg Clopidogrel Bisulfate (Plavix -) 75 mg PO DAILY [facility] Last Admin: 05/26/18 09:21 Dose: 75 mg Docusate Sodium (Colace -) 100 mg PO TID [facility] Last Admin: 05/26/18 06:01 Dose: 100 mg Fentanyl (Sublimaze Injection -) 50 mcg IVPUSH [id number] PRN PRN Reason: PAIN-PACU ORDER X 4 DOSES ONLY Furosemide (Lasix -) 40 mg PO DAILY [facility] Last Admin: 05/26/18 09:21 Dose: 40 mg Heparin Sodium (Porcine) (Heparin -) 5,000 unit SQ TID [facility] Last Admin: 05/25/18 06:46 Dose: 5,000 unit Hydralazine HCl (Apresoline -) 100 mg PO TID [facility] Last Admin: 05/26/18 06:01 Dose: Not Given Sodium Chloride (Normal Saline -) 250 mls @ 3,000 mls/hr IV PRN PRN PRN Reason: Hypotension during Dialysis Piperacillin Sod/Tazobactam (Sod 2.25 gm/ Dextrose) 50 mls @ 100 mls/hr IVPB Q8H-IV [facility]; Protocol Last Admin: 05/26/18 09:22 Dose: 100 mls/hr Sodium Chloride (Normal Saline -) 250 mls @ 3,000 mls/hr IV PRN PRN PRN Reason: Hypotension during Dialysis Stop: 05/26/18 14:47 Insulin Aspart (Novolog Vial Sliding Scale -) 1 vial SQ ACHS [facility]; Protocol Last Admin: 05/26/18 11:55 Dose: Not Given Nifedipine (Procardia Xl -) 60 mg PO BID [facility] Last Admin: 05/26/18 09:21 Dose: 60 mg Oxycodone HCl (Roxicodone -) 5 mg PO Q6H PRN PRN Reason: PAIN LEVEL 6-10 Last Admin: 05/25/18 14:24 Dose: 5 mg Ranitidine HCl (Zantac -) 150 mg PO DAILY [facility] Last Admin: 05/26/18 09:21 Dose: 150 mg - Objective Vital Signs: Vital Signs Temperature 97.8 F 05/26/18 10:00 Pulse Rate 66 05/26/18 13:00 Respiratory Rate 18 05/26/18 13:00 Blood Pressure 148/65 05/26/18 13:00 O2 Sat by Pulse Oximetry (%) 96 05/26/18 10:00 Constitutional: Yes: Calm Eyes: Yes: Conjunctiva Clear HENT: Yes: Atraumatic Cardiovascular: Yes: S1, S2 Respiratory: Yes: CTA Bilaterally Gastrointestinal: Yes: Normal Bowel Sounds, Soft Genitourinary: Yes: WNL Musculoskeletal: Yes: WNL Edema: No Neurological: Yes: Oriented Labs: CBC, BMP 05/26/18 10:00 05/26/18 10:00 INR, PTT INR 1.09 (0.83-1.09) 05/14/18 21:24 Problem List - Problems (1) ESRD (end stage renal disease) Code(s): N18.6 - END STAGE RENAL DISEASE (2) Diabetes Code(s): E11.9 - TYPE 2 DIABETES MELLITUS WITHOUT COMPLICATIONS Qualifiers: Diabetes mellitus type: type 2 Diabetes mellitus ad terminal makeup operator insulin use: without group home use Diabetes mellitus complication detail: with chronic kidney disease Chronic kidney disease stage: stage 5, not on chronic dialysis (3) Hypertension Code(s): I10 - ESSENTIAL (PRIMARY) HYPERTENSION Qualifiers: Assessment/Plan Current Medications Generic Name Dose Route Start Last Admin Trade Name Freq PRN Reason Stop Dose Admin Acetaminophen 650 mg 05/23/18 17:23 05/26/18 11:03 Tylenol - PO 650 mg Q6H PRN Administration PAIN LEVEL 1-5 Aspirin 81 mg 05/24/18 10:00 05/26/18 09:21 Ecotrin - PO 81 mg DAILY [facility] Administration Atorvastatin Calcium 20 mg 05/24/18 22:00 05/25/18 21:11 Lipitor - PO 20 mg HS [facility] Administration Calcitriol 0.25 mcg 05/24/18 10:00 05/26/18 09:21 Rocaltrol - PO 0.25 mcg DAILY [facility] Administration Clopidogrel Bisulfate 75 mg 05/24/18 10:00 05/26/18 09:21 Plavix - PO 75 mg DAILY [facility] Administration Docusate Sodium 100 mg 05/23/18 22:00 05/26/18 06:01 Colace - PO 100 mg TID [facility] Administration Fentanyl 50 mcg 05/23/18 17:39 Sublimaze Injection - IVPUSH [id number] PRN PAIN-PACU ORDER X 4 DOSES ONLY Furosemide 40 mg 05/24/18 10:00 05/26/18 09:21 Lasix - PO 40 mg DAILY [facility] Administration Heparin Sodium (Porcine) 5,000 unit 05/23/18 22:00 05/25/18 06:46 Heparin - SQ 5,000 unit TID [facility] Administration Hydralazine HCl 100 mg 05/23/18 22:00 05/26/18 06:01 Apresoline - PO Not Given TID [facility] Sodium Chloride 250 mls @ 3,000 mls/hr 05/23/18 17:23 Normal Saline - IV PRN PRN Hypotension during Dialysis Piperacillin Sod/Tazobactam 50 mls @ 100 mls/hr 05/23/18 18:00 05/26/18 09:22 Sod 2.25 gm/ Dextrose IVPB 100 mls/hr Q8H-IV [facility] Administration Protocol Sodium Chloride 250 mls @ 3,000 mls/hr 05/25/18 14:46 Normal Saline - IV 05/26/18 14:47 PRN PRN Hypotension during Dialysis Insulin Aspart 1 vial 05/23/18 22:00 05/26/18 11:55 Novolog Vial Sliding Scale - SQ Not Given ACHS [facility] Protocol Nifedipine 60 mg 05/23/18 22:00 05/26/18 09:21 Procardia Xl - PO 60 mg BID [facility] Administration Oxycodone HCl 5 mg 05/23/18 17:23 05/25/18 14:24 Roxicodone - PO 5 mg Q6H PRN Administration PAIN LEVEL 6-10 Ranitidine HCl 150 mg 05/24/18 10:00 05/26/18 09:21 Zantac - PO 150 mg DAILY [facility] Administration Impression 1. ESRD on HD 2. anemia 3. DM 4. HTN 5. toe infection/gangrene 6. PVD Plan - HD today - pt is s/p angioplasty - will need vascular follow up after discharge - cont wound care - avf 3:30 400 abf - epogen 10,000 for anemia
[2018-05-26] MEDS: HEPARIN NA (PORCINE) 5,000 UNITS/ML 1ML VIAL SQ SCH ×2 (14:12→21:35)
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
[2018-05-26] MEDS: ATORVASTATIN CA 20 MG TABLET (FP) PO SCH (21:31)
[2018-05-27] MEDS ORDERED: PIPERACILLIN/TAZOBACTAM 2.25 GM VIAL IVPB ONE ×2 (02:00→09:10)
[2018-05-27] MEDS ORDERED: DEXTROSE 5%-WATER - 50 ML IVPB ONE ×2 (02:00→09:10)
[2018-05-27] MEDS: PIPERACILLIN/TAZOB 2.25 GM 2.25 GM in DEXTROSE 5%-WATER - 50 ML IVPB SCH ×2 (02:25→09:14)
[2018-05-27] MEDS: hydrALAZINE HCL 50 MG TABLET (FP) PO SCH ×3 (06:43→21:26)
[2018-05-27] MEDS: HEPARIN NA (PORCINE) 5,000 UNITS/ML 1ML VIAL SQ SCH ×4 (06:44→21:27)
[2018-05-27] MEDS: DOCUSATE SODIUM 100 MG CAPSULE (FP) PO SCH ×3 (06:44→21:27)
[2018-05-27] MEDS: INSULIN SLIDING SCALE (NOVOLOG) 1 VIAL SQ SCH ×4 (06:50→21:35)
[2018-05-27] MEDS: ASPIRIN COATED 81 MG TABLET.EC PO SCH (09:14)
[2018-05-27] MEDS: CLOPIDOGREL BISULFATE 75 MG TABLET (FP) PO SCH (09:14)
[2018-05-27] MEDS: FUROSEMIDE 40 MG TABLET (FP) PO SCH (09:14)
[2018-05-27] MEDS: CALCITRIOL 0.25 MCG CAPSULE (FP) PO SCH (09:14)
[2018-05-27] MEDS: RANITIDINE HCL 150 MG TABLET (FP) PO SCH (09:14)
[2018-05-27] MEDS: ACETAMINOPHEN 325 MG TABLET (FP) PO PRN (09:14)
[2018-05-27] MEDS: NIFEdipine E.R 60 MG TABLET (UD) PO SCH ×2 (09:14→21:26)
[2018-05-27] MEDS ORDERED: INSULIN (NOVOLOG) ASPART 100 UNITS/ML 10ML VIAL ONE ×2 (11:49→21:33)
[2018-05-27] MEDS ORDERED: oxyCODONE HCL 5 MG TABLET PO PRN (12:01)
--- NOTE | 2018-05-27 12:23 | PN ---
Progress Note, Physician History of Present Illness: Pt seen and examined at bedside. He is awake and alert. He denies shortness of breath. - Current Medication List Current Medications: Active Medications Acetaminophen (Tylenol -) 650 mg PO Q6H PRN PRN Reason: PAIN LEVEL 1-5 Last Admin: 05/27/18 09:14 Dose: 650 mg Aspirin (Ecotrin -) 81 mg PO DAILY [facility] Last Admin: 05/27/18 09:14 Dose: 81 mg Atorvastatin Calcium (Lipitor -) 20 mg PO HS [facility] Last Admin: 05/26/18 21:31 Dose: 20 mg Calcitriol (Rocaltrol -) 0.25 mcg PO DAILY [facility] Last Admin: 05/27/18 09:14 Dose: 0.25 mcg Clopidogrel Bisulfate (Plavix -) 75 mg PO DAILY [facility] Last Admin: 05/27/18 09:14 Dose: 75 mg Docusate Sodium (Colace -) 100 mg PO TID [facility] Last Admin: 05/27/18 06:44 Dose: 100 mg Fentanyl (Sublimaze Injection -) 50 mcg IVPUSH [id number] PRN PRN Reason: PAIN-PACU ORDER X 4 DOSES ONLY Furosemide (Lasix -) 40 mg PO DAILY [facility] Last Admin: 05/27/18 09:14 Dose: 40 mg Heparin Sodium (Porcine) (Heparin -) 5,000 unit SQ TID [facility] Last Admin: 05/27/18 06:44 Dose: 5,000 unit Hydralazine HCl (Apresoline -) 100 mg PO TID [facility] Last Admin: 05/27/18 06:43 Dose: 100 mg Sodium Chloride (Normal Saline -) 250 mls @ 3,000 mls/hr IV PRN PRN PRN Reason: Hypotension during Dialysis Piperacillin Sod/Tazobactam (Sod 2.25 gm/ Dextrose) 50 mls @ 100 mls/hr IVPB Q8H-IV [facility]; Protocol Last Admin: 05/27/18 09:14 Dose: 100 mls/hr Sodium Chloride (Normal Saline -) 250 mls @ 3,000 mls/hr IV PRN PRN PRN Reason: Hypotension during Dialysis Stop: 05/26/18 14:47 Insulin Aspart (Novolog Vial Sliding Scale -) 1 vial SQ ACHS [facility]; Protocol Last Admin: 05/27/18 12:04 Dose: 2 units Nifedipine (Procardia Xl -) 60 mg PO BID [facility] Last Admin: 05/27/18 09:14 Dose: 60 mg Oxycodone HCl (Roxicodone -) 5 mg PO Q6H PRN PRN Reason: PAIN SCALE 6-10 Ranitidine HCl (Zantac -) 150 mg PO DAILY [facility] Last Admin: 05/27/18 09:14 Dose: 150 mg - Objective Vital Signs: Vital Signs Temperature 98.3 F 05/27/18 08:59 Pulse Rate 84 05/27/18 08:59 Respiratory Rate 18 05/27/18 08:59 Blood Pressure 175/94 05/27/18 08:59 O2 Sat by Pulse Oximetry (%) 96 05/26/18 21:00 Constitutional: Yes: Calm Eyes: Yes: Conjunctiva Clear HENT: Yes: Atraumatic Neck: Yes: Supple Cardiovascular: Yes: S1, S2 Respiratory: Yes: CTA Bilaterally Gastrointestinal: Yes: Normal Bowel Sounds, Soft Genitourinary: Yes: WNL Musculoskeletal: Yes: Other (toe gangrene) Edema: No Neurological: Yes: Oriented Psychiatric: Yes: Oriented Labs: CBC, BMP 05/26/18 10:00 05/26/18 10:00 INR, PTT INR 1.09 (0.83-1.09) 05/14/18 21:24 Problem List - Problems (1) ESRD (end stage renal disease) Code(s): N18.6 - END STAGE RENAL DISEASE (2) Diabetes Code(s): E11.9 - TYPE 2 DIABETES MELLITUS WITHOUT COMPLICATIONS Qualifiers: Diabetes mellitus type: type 2 Diabetes mellitus intermediate accountant insulin use: without intermediate accountant use Diabetes mellitus complication detail: with chronic kidney disease Chronic kidney disease stage: stage 5, not on chronic dialysis (3) Hypertension Code(s): I10 - ESSENTIAL (PRIMARY) HYPERTENSION Qualifiers: Assessment/Plan Current Medications Generic Name Dose Route Start Last Admin Trade Name Freq PRN Reason Stop Dose Admin Acetaminophen 650 mg 05/23/18 17:23 05/27/18 09:14 Tylenol - PO 650 mg Q6H PRN Administration PAIN LEVEL 1-5 Aspirin 81 mg 05/24/18 10:00 05/27/18 09:14 Ecotrin - PO 81 mg DAILY [facility] Administration Atorvastatin Calcium 20 mg 05/24/18 22:00 05/26/18 21:31 Lipitor - PO 20 mg HS [facility] Administration Calcitriol 0.25 mcg 05/24/18 10:00 05/27/18 09:14 Rocaltrol - PO 0.25 mcg DAILY [facility] Administration Clopidogrel Bisulfate 75 mg 05/24/18 10:00 05/27/18 09:14 Plavix - PO 75 mg DAILY [facility] Administration Docusate Sodium 100 mg 05/23/18 22:00 05/27/18 06:44 Colace - PO 100 mg TID [facility] Administration Fentanyl 50 mcg 05/23/18 17:39 Sublimaze Injection - IVPUSH [id number] PRN PAIN-PACU ORDER X 4 DOSES ONLY Furosemide 40 mg 05/24/18 10:00 05/27/18 09:14 Lasix - PO 40 mg DAILY [facility] Administration Heparin Sodium (Porcine) 5,000 unit 05/23/18 22:00 05/27/18 06:44 Heparin - SQ 5,000 unit TID [facility] Administration Hydralazine HCl 100 mg 05/23/18 22:00 05/27/18 06:43 Apresoline - PO 100 mg TID [facility] Administration Sodium Chloride 250 mls @ 3,000 mls/hr 05/23/18 17:23 Normal Saline - IV PRN PRN Hypotension during Dialysis Piperacillin Sod/Tazobactam 50 mls @ 100 mls/hr 05/23/18 18:00 05/27/18 09:14 Sod 2.25 gm/ Dextrose IVPB 100 mls/hr Q8H-IV [facility] Administration Protocol Sodium Chloride 250 mls @ 3,000 mls/hr 05/25/18 14:46 Normal Saline - IV 05/26/18 14:47 PRN PRN Hypotension during Dialysis Insulin Aspart 1 vial 05/23/18 22:00 05/27/18 12:04 Novolog Vial Sliding Scale - SQ 2 units ACHS [facility] Administration Protocol Nifedipine 60 mg 05/23/18 22:00 05/27/18 09:14 Procardia Xl - PO 60 mg BID [facility] Administration Oxycodone HCl 5 mg 05/27/18 12:01 Roxicodone - PO Q6H PRN PAIN SCALE 6-10 Ranitidine HCl 150 mg 05/24/18 10:00 05/27/18 09:14 Zantac - PO 150 mg DAILY [facility] Administration Impression 1. ESRD on HD 2. anemia 3. DM 4. HTN 5. toe infection/gangrene 6. PVD Plan - HD [facility] m - cont wound care - vascular/podiatry follow up - avf 3:30 400 abf - epogen 10,000 for anemia
--- NOTE | 2018-05-27 12:39 | PN ---
Progress Note (short form) - Note Progress Note: Patient seen in bed. +gangarene 4th toe left, +om, +dry gangarene wbc=9.9 PVD Gangarene OM Patient being tx for om and dry gangarene. Discussed with ID he will follow. Discussed with Dr. Chencho christianson to dc and follow in wound care center. Problem List - Problems (1) Gangrene Code(s): I96 - GANGRENE, NOT ELSEWHERE CLASSIFIED
--- NOTE | 2018-05-27 13:08 | PN ---
Progress Note, Physician History of Present Illness: C/O foot pain at times 4th toe with dry gangrene No drainage No fever/ chills - Current Medication List Current Medications: Active Medications Acetaminophen (Tylenol -) 650 mg PO Q6H PRN PRN Reason: PAIN LEVEL 1-5 Last Admin: 05/27/18 09:14 Dose: 650 mg Aspirin (Ecotrin -) 81 mg PO DAILY [facility] Last Admin: 05/27/18 09:14 Dose: 81 mg Atorvastatin Calcium (Lipitor -) 20 mg PO HS [facility] Last Admin: 05/26/18 21:31 Dose: 20 mg Calcitriol (Rocaltrol -) 0.25 mcg PO DAILY [facility] Last Admin: 05/27/18 09:14 Dose: 0.25 mcg Clopidogrel Bisulfate (Plavix -) 75 mg PO DAILY [facility] Last Admin: 05/27/18 09:14 Dose: 75 mg Docusate Sodium (Colace -) 100 mg PO TID [facility] Last Admin: 05/27/18 06:44 Dose: 100 mg Epoetin Thomas (Procrit -) 10,000 unit IVPUSH ONCE ONE Stop: 05/28/18 12:25 Fentanyl (Sublimaze Injection -) 50 mcg IVPUSH [id number] PRN PRN Reason: PAIN-PACU ORDER X 4 DOSES ONLY Furosemide (Lasix -) 40 mg PO DAILY [facility] Last Admin: 05/27/18 09:14 Dose: 40 mg Heparin Sodium (Porcine) (Heparin -) 5,000 unit SQ TID [facility] Last Admin: 05/27/18 06:44 Dose: 5,000 unit Heparin Sodium (Porcine) (Heparin -) 1,000 unit IVPUSH ONCE ONE Stop: 05/28/18 12:25 Hydralazine HCl (Apresoline -) 100 mg PO TID [facility] Last Admin: 05/27/18 06:43 Dose: 100 mg Sodium Chloride (Normal Saline -) 250 mls @ 3,000 mls/hr IV PRN PRN PRN Reason: Hypotension during Dialysis Sodium Chloride (Normal Saline -) 250 mls @ 3,000 mls/hr IV PRN PRN PRN Reason: Hypotension during Dialysis Stop: 05/26/18 14:47 Sodium Chloride (Normal Saline -) 250 mls @ 3,000 mls/hr IV PRN PRN PRN Reason: Hypotension during Dialysis Stop: 05/28/18 12:24 Insulin Aspart (Novolog Vial Sliding Scale -) 1 vial SQ ACHS [facility]; Protocol Last Admin: 05/27/18 12:04 Dose: 2 units Nifedipine (Procardia Xl -) 60 mg PO BID [facility] Last Admin: 05/27/18 09:14 Dose: 60 mg Oxycodone HCl (Roxicodone -) 5 mg PO Q6H PRN PRN Reason: PAIN SCALE 6-10 Ranitidine HCl (Zantac -) 150 mg PO DAILY [facility] Last Admin: 05/27/18 09:14 Dose: 150 mg - Objective Vital Signs: Vital Signs Temperature 98.3 F 05/27/18 08:59 Pulse Rate 84 05/27/18 08:59 Respiratory Rate 18 05/27/18 08:59 Blood Pressure 175/94 05/27/18 08:59 O2 Sat by Pulse Oximetry (%) 96 05/26/18 21:00 Constitutional: Yes: No Distress Cardiovascular: Yes: Regular Rate and Rhythm, S1, S2 Respiratory: Yes: CTA Bilaterally Gastrointestinal: Yes: Normal Bowel Sounds, Soft Labs: CBC, BMP 05/26/18 10:00 05/26/18 10:00 INR, PTT INR 1.09 (0.83-1.09) 05/14/18 21:24 Assessment/Plan Dry gangrene L 4th toe ESRD Antibiotics of no further benefit D/C antibiotics F/U Wound care center
--- NOTE | 2018-05-27 14:24 | DS ---
Physical Exam: SUBJECTIVE: Patient seen and examined OBJECTIVE: Vital Signs Period Temp Pulse Resp BP Sys/Cole Pulse Ox Last 24 Hr 98 F-98.3 F 67-84 16-18 146-183/63-94 96-98 PHYSICAL EXAM GENERAL: The patient is awake, alert, and fully oriented, in no acute distress. HEAD: Normal with no signs of trauma. EYES: PERRL, extraocular movements intact, sclera anicteric, conjunctiva clear. ENT: Ears normal, nares patent, oropharynx clear without exudates, moist mucous membranes. NECK: Trachea midline, full range of motion, supple. LUNGS: Breath sounds equal, clear to auscultation bilaterally, no wheezes, no crackles, no accessory muscle use. HEART: Regular rate and rhythm, S1, S2 without murmur, rub or gallop. ABDOMEN: Soft, nontender, nondistended, normoactive bowel sounds, no guarding, no rebound, no hepatosplenomegaly, no masses. EXTREMITIES: 2+ pulses, warm, well-perfused, no edema. NEUROLOGICAL: Cranial nerves II through XII grossly intact. Normal speech, gait not observed. PSYCH: Normal mood, normal affect. SKIN: Warm, dry, normal turgor, no rashes or lesions noted. LABS Laboratory Results - last 24 hr 05/26/18 05/26/18 05/27/18 17:34 21:30 06:50 POC Glucometer 164 114 104 05/27/18 11:41 POC Glucometer 168 HOSPITAL COURSE: Date of Admission:05/15/18 Date of Discharge: 05/27/18 Minutes to complete discharge: 35 Discharge Summary Reason For Visit: DIABETIC FOOT INFECTION Current Active Problems Diabetic foot infection (Acute) ESRD (end stage renal disease) (Acute) [place] cardiac risk >20% in next 10 years (Acute) Gangrene (Acute) Wound infection (Acute) Condition: Improved - Instructions Diet, Activity, Other Instructions: It is very important that you follow up with Dr. Paiz in the [facility]. You have an appointment on Saturday, , at 10:00am. Return to the emergency department for any new or worsening symptoms. Referrals: Kel Paiz MD [Staff Physician] - 05/30/18 10:00 am Disposition: HOME - Home Medications Comprehensive Discharge Medication List: Ambulatory Orders Sevelamer HCl [Renagel] 800 mg PO TIDCM 05/16/18 Aspirin Coated [Ecotrin -] 81 mg PO DAILY #30 tablet.ec 05/27/18 Atorvastatin Ca [Lipitor] 20 mg PO HS #30 tablet 05/27/18 Calcitriol [Calcitriol -] 0.25 mcg PO DAILY #30 capsule 05/27/18 Clopidogrel Bisulfate [Plavix -] 75 mg PO DAILY #30 tablet 05/27/18 Furosemide [Lasix -] 40 mg PO DAILY #30 tablet 05/27/18 Hydralazine HCl 100 mg PO TID #90 tablet 05/27/18 Nifedipine ER [Procardia XL -] 60 mg PO BID #60 tab.er.[id number] 05/27/18 This patient is new to me today: No Emergency Visit: Yes ED Registration Date: 05/15/18 Care time: The patient presented to the Emergency Department on the above date and was hospitalized for further evaluation of their emergent condition. Critical Care patient: No - Discharge Referral Referred to [facility] Med [facility].C[facility] Yes Physician Referral: Kel Paiz DO ([facility])
[2018-05-27] MEDS ORDERED: PT OWN MED DRAWER 7, Y5N ONE ×3 (17:11→22:40)
--- NOTE | 2018-05-27 18:14 | PN ---
Progress Note, Physician Chief Complaint: Pt A&Ox3; family at bedside. HIs gives hx of pt having had SC (treated at [facility] 9 months ago); ? low LVEF at that time (now normal). Pt c/o occasional knifelike pain in the left blackened toe. History of Present Illness: 68 yo man (b. [place]) with a hx of ESRD (on dialysis MWF last tx today), HTN, CAD, and DM presents to the emergency department with left 4th toe digit infection. Per the patient, he states it occurred 1 week ago and began as a small cut on the web space between the 3rd and 4th digit. He went to [facility] 1 week ago and treated with clindamycin (prescribed on 05/10/2018, compliant) but has been getting worse. Per the daughter, she noticed it turning black today. The patient states its painful, does not radiate, and is currently 4/10 throbbing and increases to 7/10 when walking. Denies the following: fever, chest pain, headache, dizziness, chills, diaphoresis, SOB, abdominal pain, hematuria, diarrhea, nausea, vomiting, and leg swelling/pain. Endorses having a cough for the past few days. Pmhx: Refer to above. On dialysis for 2 years. Shx: AV fistula left arm 2017 Meds: hydralazine, nifedipine, aspirin, renagel, and chlorthalid - Current Medication List Current Medications: Active Medications Acetaminophen (Tylenol -) 650 mg PO Q6H PRN PRN Reason: PAIN LEVEL 1-5 Last Admin: 05/27/18 09:14 Dose: 650 mg Aspirin (Ecotrin -) 81 mg PO DAILY [facility] Last Admin: 05/27/18 09:14 Dose: 81 mg Atorvastatin Calcium (Lipitor -) 20 mg PO HS [facility] Last Admin: 05/26/18 21:31 Dose: 20 mg Calcitriol (Rocaltrol -) 0.25 mcg PO DAILY [facility] Last Admin: 05/27/18 09:14 Dose: 0.25 mcg Clopidogrel Bisulfate (Plavix -) 75 mg PO DAILY [facility] Last Admin: 05/27/18 09:14 Dose: 75 mg Docusate Sodium (Colace -) 100 mg PO TID [facility] Last Admin: 05/27/18 14:13 Dose: 100 mg Epoetin Thomas (Procrit -) 10,000 unit IVPUSH ONCE ONE Stop: 05/28/18 12:25 Fentanyl (Sublimaze Injection -) 50 mcg IVPUSH [id number] PRN PRN Reason: PAIN-PACU ORDER X 4 DOSES ONLY Furosemide (Lasix -) 40 mg PO DAILY [facility] Last Admin: 05/27/18 09:14 Dose: 40 mg HCTZ/Losartan Potassium (Hyzaar -) 1 tab PO DAILY [facility] Heparin Sodium (Porcine) (Heparin -) 5,000 unit SQ TID [facility] Last Admin: 05/27/18 14:17 Dose: Not Given Heparin Sodium (Porcine) (Heparin -) 1,000 unit IVPUSH ONCE ONE Stop: 05/28/18 12:25 Hydralazine HCl (Apresoline -) 100 mg PO TID [facility] Last Admin: 05/27/18 14:13 Dose: 100 mg Sodium Chloride (Normal Saline -) 250 mls @ 3,000 mls/hr IV PRN PRN PRN Reason: Hypotension during Dialysis Sodium Chloride (Normal Saline -) 250 mls @ 3,000 mls/hr IV PRN PRN PRN Reason: Hypotension during Dialysis Stop: 05/26/18 14:47 Sodium Chloride (Normal Saline -) 250 mls @ 3,000 mls/hr IV PRN PRN PRN Reason: Hypotension during Dialysis Stop: 05/28/18 12:24 Insulin Aspart (Novolog Vial Sliding Scale -) 1 vial SQ ACHS [facility]; Protocol Last Admin: 05/27/18 16:48 Dose: 4 units Nifedipine (Procardia Xl -) 60 mg PO BID [facility] Last Admin: 05/27/18 09:14 Dose: 60 mg Oxycodone HCl (Roxicodone -) 5 mg PO Q6H PRN PRN Reason: PAIN SCALE 6-10 Ranitidine HCl (Zantac -) 150 mg PO DAILY [facility] Last Admin: 05/27/18 09:14 Dose: 150 mg - Objective Vital Signs: Vital Signs Temperature 97.7 F 05/27/18 16:30 Pulse Rate 69 05/27/18 16:30 Respiratory Rate 18 05/27/18 16:30 Blood Pressure 158/66 05/27/18 16:30 O2 Sat by Pulse Oximetry (%) 98 05/27/18 09:00 Constitutional: Yes: Calm Eyes: Yes: WNL HENT: Yes: WNL Neck: Yes: WNL Cardiovascular: Yes: Murmur, S1, S2 Respiratory: Yes: Regular Gastrointestinal: Yes: Soft ...Rectal Exam: Yes: Deferred Genitourinary: No: Anuria Breast(s): Yes: WNL Musculoskeletal: Yes: Muscle Weakness Extremities: Yes: Cool Edema: No Peripheral Pulses WNL: No Peripheral Pulses: Left Doralis Pedis: 1+, Right Dorsalis Pedis: 1+ Integumentary: Yes: Other (left 4th toe blackened (gangrene)) Neurological: Yes: Alert, Oriented Psychiatric: Yes: WNL Labs: CBC, BMP 05/26/18 10:00 05/26/18 10:00 INR, PTT INR 1.09 (0.83-1.09) 05/14/18 21:24 Problem List - Problems (1) ESRD (end stage renal disease) Assessment/Plan: 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 Code(s): N18.6 - END STAGE RENAL DISEASE (2) Gangrene Code(s): I96 - GANGRENE, NOT ELSEWHERE CLASSIFIED (3) AV fistula Code(s): I77.0 - ARTERIOVENOUS FISTULA, ACQUIRED (4) Abnormal ECG Code(s): R94.31 - ABNORMAL ELECTROCARDIOGRAM [ECG] [EKG] (5) Diabetes Code(s): E11.9 - TYPE 2 DIABETES MELLITUS WITHOUT COMPLICATIONS Qualifiers: Diabetes mellitus type: type 2 Diabetes mellitus fpc insulin use: without terminal clerk use Diabetes mellitus complication detail: with chronic kidney disease Chronic kidney disease stage: stage 5, not on chronic dialysis (6) Hypertension Assessment/Plan: On nifedipine, hydralazine, furosemide. Start losartan 25 mg daily (hx CAD, DM, HTN) Consider spironolactone if BP remains refractory to Rx. Code(s): I10 - ESSENTIAL (PRIMARY) HYPERTENSION Qualifiers: (7) [place] cardiac risk >20% in next 10 years Assessment/Plan: ECHO: normal LVEF; moderate pulmonary HTN moderate MR, TR, AK. Elevated LDL: start atorvastatin; keep LDL < 70 mg/dL. Stress MIBI results: small area of mildly intense inferoapical ischemia. From a cardiac standpoint, there are no absolute contraindications for Mr Moreno to undergo LE angiogram/angioplasty and amputation. Pt's today says he had an SC 9 months ago and was interned at [facility] ; no coronary angiogram was done, according to her. Reportedly had ?low LVEF (normal LVEF by ECHO this admission). Rec: obtain records. The pt's eligibility for cardiac rehabilitation as an outpatient was discussed. Defers coronary angiogram presently. Keep LDL cholesterol well below 70 mg/dL; will increase atorvastatin to 40 mg daily. Code(s): Z91.89 - OTH PERSONAL RISK FACTORS, NOT ELSEWHERE CLASSIFIED (8) Diastolic CHF Code(s): I50.30 - UNSPECIFIED DIASTOLIC (CONGESTIVE) HEART FAILURE (9) PAD (peripheral artery disease) Assessment/Plan: s/p LE angiogram. Left 4th toe gangrene. F/u with vascular surgeon. Code(s): I73.9 - PERIPHERAL VASCULAR DISEASE, UNSPECIFIED
[2018-05-27] MEDS: LOSARTAN 50MG/HCTZ 12.5MG 1 TAB (FP) PO SCH (19:11)
[2018-05-27] MEDS ORDERED: ATORVASTATIN CA 40 MG TABLET (FP) PO SCH (22:00)
[2018-05-28] MEDS: DOCUSATE SODIUM 100 MG CAPSULE (FP) PO SCH ×2 (05:25→13:31)
[2018-05-28] MEDS: INSULIN SLIDING SCALE (NOVOLOG) 1 VIAL SQ SCH ×3 (06:14→18:14)
[2018-05-28] MEDS: HEPARIN NA (PORCINE) 5,000 UNITS/ML 1ML VIAL SQ SCH ×2 (06:36→13:31)
[2018-05-28] MEDS ORDERED: PT OWN MED DRAWER 7, Y5N ONE ×2 (09:18→10:24)
[2018-05-28] MEDS: hydrALAZINE HCL 50 MG TABLET (FP) PO SCH ×2 (09:30→13:30)
[2018-05-28] MEDS: CLOPIDOGREL BISULFATE 75 MG TABLET (FP) PO SCH (09:31)
[2018-05-28] MEDS: ASPIRIN COATED 81 MG TABLET.EC PO SCH (09:31)
[2018-05-28] MEDS: LOSARTAN 50MG/HCTZ 12.5MG 1 TAB (FP) PO SCH (09:31)
[2018-05-28] MEDS: FUROSEMIDE 40 MG TABLET (FP) PO SCH (09:32)
[2018-05-28] MEDS: RANITIDINE HCL 150 MG TABLET (FP) PO SCH (09:32)
[2018-05-28] MEDS: NIFEdipine E.R 60 MG TABLET (UD) PO SCH (09:32)
[2018-05-28] MEDS: CALCITRIOL 0.25 MCG CAPSULE (FP) PO SCH (09:32)
[2018-05-28] MEDS ORDERED: HEPARIN NA (PORCINE) 5,000 UNITS/ML 1ML VIAL IVPUSH ONE (12:24)
--- NOTE | 2018-05-28 13:05 | PN ---
Progress Note, Physician History of Present Illness: Pt seen and examined at bedside. He is awake and alert. He denies shortness of breath. He complains of discomfort from his left gangrenous toe. - Current Medication List Current Medications: Active Medications Acetaminophen (Tylenol -) 650 mg PO Q6H PRN PRN Reason: PAIN LEVEL 1-5 Last Admin: 05/27/18 09:14 Dose: 650 mg Aspirin (Ecotrin -) 81 mg PO DAILY [facility] Last Admin: 05/28/18 09:31 Dose: 81 mg Atorvastatin Calcium (Lipitor -) 40 mg PO HS [facility] Last Admin: 05/27/18 21:26 Dose: 40 mg Calcitriol (Rocaltrol -) 0.25 mcg PO DAILY [facility] Last Admin: 05/28/18 09:32 Dose: 0.25 mcg Clopidogrel Bisulfate (Plavix -) 75 mg PO DAILY [facility] Last Admin: 05/28/18 09:31 Dose: 75 mg Docusate Sodium (Colace -) 100 mg PO TID [facility] Last Admin: 05/28/18 05:25 Dose: 100 mg Epoetin Thomas (Procrit -) 10,000 unit IVPUSH ONCE ONE Stop: 05/28/18 12:25 Furosemide (Lasix -) 40 mg PO DAILY [facility] Last Admin: 05/28/18 09:32 Dose: Not Given HCTZ/Losartan Potassium (Hyzaar -) 1 tab PO DAILY [facility] Last Admin: 05/28/18 09:31 Dose: 1 tab Heparin Sodium (Porcine) (Heparin -) 5,000 unit SQ TID [facility] Last Admin: 05/28/18 06:36 Dose: 5,000 unit Heparin Sodium (Porcine) (Heparin -) 1,000 unit IVPUSH ONCE ONE Stop: 05/28/18 12:25 Hydralazine HCl (Apresoline -) 100 mg PO TID [facility] Last Admin: 05/28/18 09:30 Dose: Not Given Sodium Chloride (Normal Saline -) 250 mls @ 3,000 mls/hr IV PRN PRN PRN Reason: Hypotension during Dialysis Sodium Chloride (Normal Saline -) 250 mls @ 3,000 mls/hr IV PRN PRN PRN Reason: Hypotension during Dialysis Stop: 05/26/18 14:47 Sodium Chloride (Normal Saline -) 250 mls @ 3,000 mls/hr IV PRN PRN PRN Reason: Hypotension during Dialysis Stop: 05/28/18 12:24 Insulin Aspart (Novolog Vial Sliding Scale -) 1 vial SQ ACHS [facility]; Protocol Last Admin: 05/28/18 12:07 Dose: Not Given Nifedipine (Procardia Xl -) 60 mg PO BID [facility] Last Admin: 05/28/18 09:32 Dose: 60 mg Oxycodone HCl (Roxicodone -) 5 mg PO Q6H PRN PRN Reason: PAIN SCALE 6-10 Last Admin: 05/28/18 09:31 Dose: 5 mg Ranitidine HCl (Zantac -) 150 mg PO DAILY [facility] Last Admin: 05/28/18 09:32 Dose: 150 mg - Objective Vital Signs: Vital Signs Temperature 98.4 F 05/28/18 06:26 Pulse Rate 75 05/28/18 06:26 Respiratory Rate 18 05/28/18 06:26 Blood Pressure 147/62 05/28/18 06:26 O2 Sat by Pulse Oximetry (%) 98 05/27/18 21:00 Constitutional: Yes: Calm Eyes: Yes: Conjunctiva Clear HENT: Yes: Atraumatic Neck: Yes: Supple Cardiovascular: Yes: S1, S2 Respiratory: Yes: CTA Bilaterally Genitourinary: Yes: WNL Extremities: Yes: Other (left toe gangrene) Neurological: Yes: Oriented Psychiatric: Yes: Oriented Labs: CBC, BMP 05/26/18 10:00 05/26/18 10:00 INR, PTT INR 1.09 (0.83-1.09) 05/14/18 21:24 Problem List - Problems (1) ESRD (end stage renal disease) Code(s): N18.6 - END STAGE RENAL DISEASE (2) Diabetes Code(s): E11.9 - TYPE 2 DIABETES MELLITUS WITHOUT COMPLICATIONS Qualifiers: Diabetes mellitus type: type 2 Diabetes mellitus group home insulin 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 Diabetes mellitus complication detail: with chronic kidney disease Chronic kidney disease stage: stage 5, not on chronic dialysis (3) Hypertension Code(s): I10 - ESSENTIAL (PRIMARY) HYPERTENSION Qualifiers: Assessment/Plan Current Medications Generic Name Dose Route Start Last Admin Trade Name Freq PRN Reason Stop Dose Admin Acetaminophen 650 mg 05/23/18 17:23 05/27/18 09:14 Tylenol - PO 650 mg Q6H PRN Administration PAIN LEVEL 1-5 Aspirin 81 mg 05/24/18 10:00 05/28/18 09:31 Ecotrin - PO 81 mg DAILY [facility] Administration Atorvastatin Calcium 40 mg 05/27/18 22:00 05/27/18 21:26 Lipitor - PO 40 mg HS [facility] Administration Calcitriol 0.25 mcg 05/24/18 10:00 05/28/18 09:32 Rocaltrol - PO 0.25 mcg DAILY [facility] Administration Clopidogrel Bisulfate 75 mg 05/24/18 10:00 05/28/18 09:31 Plavix - PO 75 mg DAILY [facility] Administration Docusate Sodium 100 mg 05/23/18 22:00 05/28/18 05:25 Colace - PO 100 mg TID [facility] Administration Epoetin Thomas 10,000 unit 05/28/18 12:24 Procrit - IVPUSH 05/28/18 12:25 ONCE ONE Furosemide 40 mg 05/24/18 10:00 05/28/18 09:32 Lasix - PO Not Given DAILY [facility] HCTZ/Losartan Potassium 1 tab 05/27/18 18:15 05/28/18 09:31 Hyzaar - PO 1 tab DAILY [facility] Administration Heparin Sodium (Porcine) 5,000 unit 05/23/18 22:00 05/28/18 06:36 Heparin - SQ 5,000 unit TID [facility] Administration Heparin Sodium (Porcine) 1,000 unit 05/28/18 12:24 Heparin - IVPUSH 05/28/18 12:25 ONCE ONE Hydralazine HCl 100 mg 05/23/18 22:00 05/28/18 09:30 Apresoline - PO Not Given TID [facility] Sodium Chloride 250 mls @ 3,000 mls/hr 05/23/18 17:23 Normal Saline - IV PRN PRN Hypotension during Dialysis Sodium Chloride 250 mls @ 3,000 mls/hr 05/25/18 14:46 Normal Saline - IV 05/26/18 14:47 PRN PRN Hypotension during Dialysis Sodium Chloride 250 mls @ 3,000 mls/hr 05/27/18 12:24 Normal Saline - IV 05/28/18 12:24 PRN PRN Hypotension during Dialysis Insulin Aspart 1 vial 05/23/18 22:00 05/28/18 12:07 Novolog Vial Sliding Scale - SQ Not Given ACHS [facility] Protocol Nifedipine 60 mg 05/23/18 22:00 05/28/18 09:32 Procardia Xl - PO 60 mg BID [facility] Administration Oxycodone HCl 5 mg 05/27/18 12:01 05/28/18 09:31 Roxicodone - PO 5 mg Q6H PRN Administration PAIN SCALE 6-10 Ranitidine HCl 150 mg 05/24/18 10:00 05/28/18 09:32 Zantac - PO 150 mg DAILY [facility] Administration Impression 1. ESRD on HD 2. anemia 3. DM 4. HTN 5. toe infection/gangrene 6. PVD Plan - pt has HD scheduled for today - cont wound care - podiatry follow up - avf 3:30 400 abf - epogen 10,000 for anemia
[2018-05-28] MEDS ORDERED: EPOETIN ALFA 10,000 UNIT/1 ML VIAL IVPUSH ONE (14:00)
[2018-05-28] MEDS ORDERED: SODIUM CHLORIDE 250 ML IV PRN (14:01)
[2018-05-28 16:45] VITALS: BP 149/66; PULSE 72; TEMP 96.6
[2018-05-28] MEDS ORDERED: INSULIN (NOVOLOG) ASPART 100 UNITS/ML 10ML VIAL ONE (18:40)
== END 2018-05-28 18:45 | disposition home health service (06) | DRG 173 ==
LOC: JER 19:20 → JERBED 05-15 01:02 → J8W 05-15 05:58
PROVIDERS: ADMIT Internal Medicine; ATTEND Nurse Practitioner Acute Care
PROC: 047W3ZZ Dilation of Left Foot Artery, Percutaneous Approach (ICD-10-PCS; 2018-05-23)
PROC: B43GZZZ Magnetic Resonance Imaging (MRI) of Left Lower Extremity Arteries (ICD-10-PCS; 2018-05-23)
PROC: B40DYZZ Plain Radiography of Aorta and Bilateral Lower Extremity Arteries using Other Contrast (ICD-10-PCS; 2018-05-23)
PROC: 04CW3ZZ Extirpation of Matter from Left Foot Artery, Percutaneous Approach (ICD-10-PCS; principal; 2018-05-23 14:00)
DX: E11.52 Type 2 diabetes mellitus with diabetic peripheral angiopathy with gangrene (principal); E11.621 Type 2 diabetes mellitus with foot ulcer; I12.0 Hypertensive chronic kidney disease with stage 5 chronic kidney disease or end stage renal disease; E11.22 Type 2 diabetes mellitus with diabetic chronic kidney disease; N18.6 End stage renal disease; D64.9 Anemia, unspecified; I25.10 Atherosclerotic heart disease of native coronary artery without angina pectoris; I96 Gangrene, not elsewhere classified
CPT/HCPCS: 36415; 71046-TC-FY; 71111-TC-FY; 73630-TC-LT; 73718-LT; 75635-TC; 76000-TC-FY; 78452-TC; 80048; 80053; 80061; 82962; 83721; 83735; 84100; 84484; 85025; 85027; 85610; 86704; 86706; 86708; 86803; 87040; 87070; 87077; 87186; 87205; 87340; 93005; 93010; 93017; 93306-TC; 94760; 97116-GP; 97162-GP; 99284-25; A9502; G0480; J0885; J1644; J2785

== ENCOUNTER 2018-06-05 08:53 | Inpatient (IN) | payer OTHER ==
--- NOTE | 2018-06-05 10:18 | PDOC ---
History of Present Illness <Sara Mcmahon - Last Filed: 06/05/18 14:38> <Nilda Mckenzie - Last Filed: 06/07/18 07:28> - General History Source: Patient Exam Limitations: No Limitations - History of Present Illness Initial Comments: 06/05/18 10:20 CHIEF COMPLAINT: Toe pain HISTORY OF PRESENT ILLNESS: This is a 68 year-old male with HTN, NIDDM, ESRD on HD (M,W,F), and peripheral arterial disease/known left 4th toe osteomyelitis and gangrene [facility] who presents with worsening, "stabbing ", intermittent pain since last night. He notes that his left 4th toe is darker and his 3rd toe is black, which is completely new according to both him and his . He denies fevers/chills or any other symptoms. V/s on arrival are unremarkable. REVIEW OF SYSTEMS: GENERAL/CONSTITUTIONAL: No fever or chills. No weakness. No weight change. HEAD, EYES, EARS, NOSE AND THROAT: No change in vision. No ear pain or discharge. No sore throat. CARDIOVASCULAR: See HPI. RESPIRATORY: No cough, wheezing, or shortness of breath. GASTROINTESTINAL: No nausea, vomiting, diarrhea or constipation. GENITOURINARY: No dysuria, frequency, or change in urination. MUSCULOSKELETAL: No joint or muscle swelling or pain. No neck or back pain. SKIN: No rash or easy bruising. NEUROLOGIC: No headache, vertigo, loss of consciousness, or loss of sensation. PSYCHIATRIC: No depression or anxiety. ENDOCRINE: No increased thirst. No abnormal weight change. HEMATOLOGIC/LYMPHATIC: Anemia. No easy bleeding, or history of blood clots. ALLERGIC/IMMUNOLOGIC: No hives or skin allergy. No latex allergy. PHYSICAL EXAM: GENERAL: The patient is awake, alert, and fully oriented, in no acute distress. HEAD: Normal with no signs of trauma. ENT: Pupils equal, round and reactive to light, extraocular movements intact, sclera anicteric, conjunctiva clear. Neck supple. LUNGS: Clear to auscultation bilaterally. Normal excursion. No respiratory distress or use of accessory muscles. CV: RRR, S1/S2, no MRG. Cap refill < 2 sec. ABDOMEN: Soft, non-distended, non-tender. EXTREMITIES: Normal range of motion, no edema. Left 3rd and 4th toes necrotic, 4th toe with malodorous exudate from ulcer at lateral aspect, wet. DP pulse dopplerable. NEUROLOGICAL: Normal speech, normal gait. CN II-XII grossly intact. PSYCH: Normal mood, normal affect. SKIN: Warm, dry, normal turgor. <Coral Dahl - Last Filed: 06/19/18 17:23> - General Chief Complaint: Pain, Acute Stated Complaint: FOOT PAIN Time Seen by Provider: 06/05/18 10:18 Past History <Sara Mcmahon - Last Filed: 06/05/18 14:38> <Nilda Mckenzie - Last Filed: 06/07/18 07:28> - Past Medical History Anemia: No Asthma: No Cancer: No Cardiac Disorders: No CVA: No COPD: No CHF: No Dementia: No Diabetes: Yes Dialysis: Yes (M-W-) GI Disorders: No Disorders: Yes (Enlarged prostate) HTN: Yes Hypercholesterolemia: Yes Liver Disease: No Seizures: No Thyroid Disease: No - Surgical History Abdominal Surgery: No Appendectomy: Yes Cardiac Surgery: No Cholecystectomy: No Lung Surgery: No Neurologic Surgery: No Orthopedic Surgery: No - Family Disease History Family Disease History: Diabetes: Father - Suicide/Smoking/Psychosocial Hx Smoking History: Never smoked Have you smoked in the past 12 months: No Hx Alcohol Use: No Drug/Substance Use Hx: No Substance Use Type: None Hx Substance Use Treatment: No <Coral Dahl - Last Filed: 06/19/18 17:23> - Past Medical History Allergies/Adverse Reactions: Allergies Allergy/AdvReac Type Severity Reaction Status Date / Time No Known Allergies Allergy Verified 05/14/18 19:30 Home Medications: Ambulatory Orders Sevelamer HCl [Renagel] 800 mg PO TIDCM 05/16/18 Aspirin Coated [Ecotrin -] 81 mg PO DAILY #30 tablet.ec 05/27/18 Atorvastatin Ca [Lipitor] 20 mg PO HS #30 tablet 05/27/18 Calcitriol [Calcitriol -] 0.25 mcg PO DAILY #30 capsule 05/27/18 Clopidogrel Bisulfate [Plavix -] 75 mg PO DAILY #30 tablet 05/27/18 Furosemide [Lasix -] 40 mg PO DAILY #30 tablet 05/27/18 Hydralazine HCl 100 mg PO TID #90 tablet 05/27/18 Nifedipine ER [Procardia XL -] 60 mg PO BID #60 tab.er.24 05/27/18 Acetaminophen [Tylenol] 650 mg PO QID PRN 06/05/18 *Physical Exam - Vital Signs Last Vital Signs Temp Pulse Resp BP Pulse Ox 98.2 F 69 18 147/60 96 06/05/18 09:00 06/05/18 09:00 06/05/18 09:00 06/05/18 09:00 06/05/18 09:00 <Sara Mcmahon - Last Filed: 06/05/18 14:38> - Vital Signs Last Vital Signs Temp Pulse Resp BP Pulse Ox 98.2 F 57 L 14 130/57 96 06/05/18 09:00 06/05/18 14:17 06/05/18 14:17 06/05/18 14:17 06/05/18 14:17 <Nilda Mckenzie - Last Filed: 06/07/18 07:28> - Vital Signs Last Vital Signs Temp Pulse Resp BP Pulse Ox 98.2 F 69 18 147/60 96 06/05/18 09:00 06/05/18 09:00 06/05/18 09:00 06/05/18 09:00 06/05/18 09:00 <Coral Dahl - Last Filed: 06/19/18 17:23> ED Treatment Course - LABORATORY CBC & Chemistry Diagram: 06/05/18 11:00 06/05/18 12:18 - ADDITIONAL ORDERS Additional order review: 06/05/18 11:00 RBC 2.60 L MCV 101.1 H MCHC 33.7 RDW 17.6 H MPV 7.9 Neutrophils % 78.3 Lymphocytes % 6.4 L D Monocytes % 11.7 H Eosinophils % 2.3 Basophils % 1.3 - Medications Given in the ED: ED Medications Discontinued Medications Generic Name Dose Route Start Last Admin Trade Name Westonq PRN Reason Stop Dose Admin Morphine Sulfate 4 mg 06/05/18 10:57 06/05/18 11:27 Morphine Injection - IVPUSH 06/05/18 10:58 4 mg ONCE ONE Administration <Sara Mcmahon - Last Filed: 06/05/18 14:38> - LABORATORY CBC & Chemistry Diagram: 06/06/18 06:30 06/06/18 06:30 - ADDITIONAL ORDERS Additional order review: Laboratory Results 06/05/18 06/05/18 06/05/18 12:18 11:00 11:00 WBC RBC Hgb Hct MCV MCH MCHC RDW Plt Count MPV Absolute Neuts (auto) Neutrophils % Lymphocytes % Monocytes % Eosinophils % Basophils % Nucleated RBC % PT with INR 12.30 INR 1.09 Sodium 138 Cancelled Potassium 3.7 Cancelled Chloride 101 Cancelled Carbon Dioxide 27 Cancelled Anion Gap 10 Cancelled BUN 28 H Cancelled Creatinine 5.9 H Cancelled Creat Clearance w eGFR 9.53 Cancelled Random Glucose 119 H Cancelled Calcium 10.0 Cancelled Total Bilirubin 0.6 Cancelled AST 32 Cancelled ALT 20 Cancelled Alkaline Phosphatase 351 H Cancelled Total Protein 7.2 Cancelled Albumin 2.9 L Cancelled 06/05/18 11:00 WBC 11.1 H RBC 2.60 L Hgb 8.8 L Hct 26.3 L MCV 101.1 H MCH 34.0 H MCHC 33.7 RDW 17.6 H Plt Count 394 D MPV 7.9 Absolute Neuts (auto) 8.7 H Neutrophils % 78.3 Lymphocytes % 6.4 L D Monocytes % 11.7 H Eosinophils % 2.3 Basophils % 1.3 Nucleated RBC % 0 PT with INR INR Sodium Potassium Chloride Carbon Dioxide Anion Gap BUN Creatinine Creat Clearance w eGFR Random Glucose Calcium Total Bilirubin AST ALT Alkaline Phosphatase Total Protein Albumin 06/05/18 11:00 RBC 2.60 L MCV 101.1 H MCHC 33.7 RDW 17.6 H MPV 7.9 Neutrophils % 78.3 Lymphocytes % 6.4 L D Monocytes % 11.7 H Eosinophils % 2.3 Basophils % 1.3 - Medications Given in the ED: ED Medications Discontinued Medications Generic Name Dose Route Start Last Admin Trade Name Freq PRN Reason Stop Dose Admin Acetaminophen 650 mg 06/05/18 14:47 06/05/18 15:06 Tylenol - PO 06/05/18 14:48 650 mg ONCE ONE Administration Piperacillin Sod/Tazobactam 50 mls @ 100 mls/hr 06/05/18 14:37 06/05/18 15:01 Sod 2.25 gm/ Dextrose IVPB 06/05/18 15:06 100 mls/hr ONCE ONE Administration Protocol Morphine Sulfate 4 mg 06/05/18 10:57 06/05/18 11:27 Morphine Injection - IVPUSH 06/05/18 10:58 4 mg ONCE ONE Administration <Nilda Mckenzie - Last Filed: 06/07/18 07:28> - LABORATORY CBC & Chemistry Diagram: 06/19/18 07:15 06/18/18 13:00 <NabilaDoraa - Last Filed: 06/19/18 17:23> Medical Decision Making - Medical Decision Making 06/05/18 11:37 Dr. Paiz was paged overhead. Page was also sent via phone service 11:39. 06/05/18 14:22 Second paged was placed to Dr. Paiz. Wheel Alignment Technician states that physician is in the OR. <Sara Mcmahon - Last Filed: 06/05/18 14:38> - Medical Decision Making The patient was seen and evaluated in conjunction with midlevel provider under my direct supervision, ancillary studies were reviewed. I agree with the plan as outlined by BED RUBBER Nabila 68 year-old male with HTN, NIDDM, ESRD on HD (M,W,F), and peripheral arterial disease/known left 4th toe osteomyelitis and gangrene presenting with acute discoloration and pain of left toes #3-4. Vitals wnl. +dopplerable DP pulses on left compared to right. cool gangrenous toes, black, insensate. interweb space with superficial ulcer and serosanguinous changes. +very tender to palp vascular consultation with Dr. Paiz. IV abx with zosyn/vancomycin for empiric coverage with chronic wound and osteo/multiple comorbidities and DM2/PAD labs and lytes, Cr at baseline with anemia and ESRD. mild wbc ct. left foot Toe XR_ neg for fx or osteomyelitis admit for ?acute on chronic osteomyelitis, gangrenous toes, pain control and supportive care. 06/05/18 15:14 06/05/18 17:12 06/07/18 07:28 <Nilda Mckenzie - Last Filed: 06/07/18 07:28> - Medical Decision Making 06/05/18 11:25 A/P: 68-year-old male with known osteomyelitis and gangrene secondary to PAD presenting with worsening pain of the left 3rd and 4th toes, which are necrotic and oozing scant malordorous pus. 1. Labs including CBC, CMP, PT/INR, T&S, blood cultures 2. Morphine 4mg IVP for pain 3. Zosyn/Vacncomycin for gangrene 4. Left toe xray given new symptoms at 3rd toe 5. Discuss with patient's vascular surgeon, Dr. Paiz <Coral Dahl - Last Filed: 06/19/18 17:23> *DC/Admit/Observation/Transfer <Sara Mcmahon - Last Filed: 06/05/18 14:38> <Nilda Mckenzie - Last Filed: 06/07/18 07:28> - Discharge Dispostion Decision to Admit order: Yes <Coral Dahl - Last Filed: 06/19/18 17:23> Diagnosis at time of Disposition: Gangrene, PAD (peripheral artery disease), ESRD (end stage renal disease) - Discharge Dispostion Disposition: HOME Condition at time of disposition: Improved
[2018-06-05] MEDS ORDERED: morphine CARPU-JECT 4 MG/1 ML DISP.SYRIN IVPUSH ONE (10:57)
[2018-06-05] MEDS ORDERED: MORPHINE SULFATE 2 MG/ML VIAL ONE (11:22)
[2018-06-05 11:23] LABS: BASO % 1.3 % (0-2.0); EOS % 2.3 % (0-4.5); HEMATOCRIT 26.3 % (35.4-49); HEMOGLOBIN 8.8 GM/dL (11.7-16.9); LYMPH % 6.4 % (8-40); MCHC 33.7 g/dl (32.0-35.9); MEAN CELL VOLUME 101.1 fl (80-96); MEAN PLT VOLUME 7.9 fl (7.5-11.1); MONO % 11.7 % (3.8-10.2); NEUT % 78.3 % (42.8-82.8); PLATELET COUNT 394 K/MM3 (134-434); RDW 17.6 % (11.9-15.9); WHITE BLOOD COUNT 11.1 K/mm3 (4.0-10.0)
[2018-06-05 11:53] LABS: INR 1.09 (0.83-1.09); PROTHROMBIN TIME (PATIENT) 12.3 SEC (9.7-13.0)
[2018-06-05 14:34] LABS: CHLORIDE 101 mmol/L (98-107); POTASSIUM 3.7 mmol/L (3.5-5.1); SODIUM 138 mmol/L (136-145)
[2018-06-05] MEDS ORDERED: PIPERACILLIN/TAZOB 2.25 GM 2.25 GM in DEXTROSE 5%-WATER - 50 ML IVPB ONE (14:37)
[2018-06-05] MEDS ORDERED: VANCOMYCIN 1,000 MG in DEXTROSE 5%-WATER - 250 ML IVPB ONE (14:38)
[2018-06-05] MEDS ORDERED: ACETAMINOPHEN 325 MG TABLET (FP) PO ONE (14:47)
[2018-06-05] MEDS ORDERED: PIPERACILLIN/TAZOBACTAM 2.25 GM VIAL IVPB ONE ×2 (14:54→22:08)
[2018-06-05] MEDS ORDERED: VANCOMYCIN 1 GRAM (PRE-DOCKED) 1,000 MG/250 ML BAG IVPB ONE (14:55)
[2018-06-05] MEDS ORDERED: ACETAMINOPHEN 325 MG TABLET (FP) ONE (15:03)
[2018-06-05 15:23] LABS: ALBUMIN 2.9 g/dl (3.4-5.0); ALK PHOS 351 U/L (45-117); ANION GAP 10 MMOL/L (8-16); BILIRUBIN,TOTAL 0.6 mg/dL (0.2-1); BLOOD UREA NITROGEN 28 mg/dL (7-18); CO2 27 mmol/L (21-32); CREATININE 5.9 mg/dL (0.55-1.3); GLUCOSE,RANDOM 119 mg/dL (74-106); SGOT/AST 32 U/L (15-37); SGPT/ALT 19 U/L (13-61); TOT PROT 7.2 g/dl (6.4-8.2)
--- NOTE | 2018-06-05 16:19 | CONSULT ---
Consult Consult Specialty:: Nephrology Reason for Consultation:: ESRD - History of Present Illness Chief Complaint: left foot pain History of Present Illness: Pt is a 68 year old male with pmhx of HTN, DM, ESRD, left 4th toe gangrene, and PAD who presents with worsening toe pain. He also has discoloration and gangrenous changed of the 3rd toe. He was last dialyzed yesterday. He is due for HD tomorrow. He denies chest pain or shortness of breath. He denies fevers or chills. He was getting treatment at the wound center. He was recently discharged about a week ago. - History Source History Provided By: Patient, Medical Record - Past Medical History Cardio/Vascular: Yes: HTN, Other (PAD) Renal/: Yes: Renal Failure, Hemodialysis Endocrine: Yes: Diabetes Mellitus Additional Medical History: DM - Alcohol/Substance Use Hx Alcohol Use: No - Smoking History Smoking history: Never smoked Have you smoked in the past 12 months: No - Social History ADL: Independent Home Medications - Allergies Allergies/Adverse Reactions: Allergies Allergy/AdvReac Type Severity Reaction Status Date / Time No Known Allergies Allergy Verified 05/14/18 19:30 - Home Medications Home Medications: Ambulatory Orders Sevelamer HCl [Renagel] 800 mg PO TIDCM 05/16/18 Aspirin Coated [Ecotrin -] 81 mg PO DAILY #30 tablet.ec 05/27/18 Atorvastatin Ca [Lipitor] 20 mg PO HS #30 tablet 05/27/18 Calcitriol [Calcitriol -] 0.25 mcg PO DAILY #30 capsule 05/27/18 Clopidogrel Bisulfate [Plavix -] 75 mg PO DAILY #30 tablet 05/27/18 Furosemide [Lasix -] 40 mg PO DAILY #30 tablet 05/27/18 Hydralazine HCl 100 mg PO TID #90 tablet 05/27/18 Nifedipine ER [Procardia XL -] 60 mg PO BID #60 tab.er.24 05/27/18 Acetaminophen [Tylenol] 650 mg PO QID PRN 06/05/18 Family Disease History - Family Disease History Family History: Denies Review of Systems - Review of Systems Constitutional: reports: Malaise. denies: Chills, Fever Eyes: reports: No Symptoms HENT: reports: No Symptoms Neck: reports: No Symptoms Cardiovascular: reports: No Symptoms Respiratory: reports: No Symptoms Gastrointestinal: reports: No Symptoms Genitourinary: reports: No Symptoms Musculoskeletal: reports: Other (left 4th adn 3rd toe gangrene) Integumentary: reports: Change in Color Neurological: reports: No Symptoms Endocrine: reports: No Symptoms Hematology/Lymphatic: reports: No Symptoms Psychiatric: reports: No Symptoms Physical Exam Vital Signs: Vital Signs Temperature 98.2 F 06/05/18 09:00 Pulse Rate 57 L 06/05/18 14:17 Respiratory Rate 14 06/05/18 14:17 Blood Pressure 130/57 06/05/18 14:17 O2 Sat by Pulse Oximetry (%) 96 06/05/18 14:17 Constitutional: Yes: Calm Eyes: Yes: Conjunctiva Clear HENT: Yes: Atraumatic Cardiovascular: Yes: S1, S2 Respiratory: Yes: CTA Bilaterally Gastrointestinal: Yes: Soft Renal/: Yes: WNL Extremities: Yes: Other (left 3rd adn 4th toe gangrene) Edema: No Neurological: Yes: Oriented Psychiatric: Yes: Oriented Labs: CBC, BMP 06/05/18 11:00 06/05/18 12:18 Imaging - Results X-ray: Report Reviewed Problem List - Problems (1) ESRD (end stage renal disease) Code(s): N18.6 - END STAGE RENAL DISEASE (2) Gangrene Code(s): I96 - GANGRENE, NOT ELSEWHERE CLASSIFIED (3) PAD (peripheral artery disease) Code(s): I73.9 - PERIPHERAL VASCULAR DISEASE, UNSPECIFIED Assessment/Plan Impression 1. ESRD on HD 2. anemia 3. DM 4. HTN 5. toe infection/gangrene 6. PVD Plan - HD in am - resume home meds - monitor bp - vascular and podiatry eval - avf 3:30 400 abf - epogen 10,000 for anemia
--- NOTE | 2018-06-05 18:18 | PN ---
Teaching Attending Note Name of Resident: Aram Duran ATTENDING PHYSICIAN STATEMENT I saw and evaluated the patient. I reviewed the resident's note and discussed the case with the resident. I agree with the resident's findings and plan as documented. SUBJECTIVE: 68 y/o man with h/o CAD, recent [place], PVD, ESRD on HD, HTN, HLP, DM , and recent admission for L 4th toe gangrene and OM, s/p angiogram, atherectomy and angioplasty, who presented with increased pain in foot and change in L 3rd toe color. He was treated with Abx during his hospital stay, and dc home off Abx, to follow as out pt for 4th toe amputation. He was doinf well, and followed with Dr. hebert on . mentioned his L 3rd toe turned black few days ago and both 3rd and 4th toes became very painful. he denies pain in foot or calf or legs He denies fever or chills. has no SOB or CP. patient reports compliance with ASA and plavix in ER , xray of foot was done, and Abx vanc and zosyn were administered. Last admission : 05/16 CTA: stenosis of 90 % of L popliteal artery, high grade stenosis of L anterior tibial artery, and L tibioperonial artery. occlusion in L peroneal , and L posterior tibial arteries. 05/22: stress test : mild inferioapical ischemia 05/22: echo NL EF, valvular regurgitations 05/23: LLE, beka with TP trunk atherectomy, and tibial angioplasty 05/16: MRI of Left LE : OM of 3rd digit and possibly second digit OBJECTIVE: NAD, awake , alert and cooperative. HEENT: no facial droop, EOMI, round pupils, L pupil is not reactive to light. tongue at mid line. CV: RRR, 3/6 M at LLSB and to a lesser extent at LUSB . Lungs: CTAB Abd: sfot, NT, ND, NL BS Ext: no edema on legs or arms, scarce hair on legs especially Left. DP 2+ on R and 1+ on L. L 3rd and 4th toes are black and tender to touch. no sensation. decreased sensation to light touch but no pain in L 2nd toe with minimal dark discoloration at base. erythema and hyperpigmentation with no tenderness in dorsal foot at level of 3rd and 4th metatarsal heads . Nl sensation to the rest of the L foot and R foot. ASSESSMENT AND PLAN: 68 y/o man with h/o CAD, recent [place], PVD, ESRD on HD, HTN, HLP, Hep B , DM, and recent admission for L 4th toe gangrene and OM, s/p angiogram, atherectomy and angioplasty, who presented with increased pain in foot and change in L 3rd toe color. He was found to have a gangrenous 3rd and 4th toes. 1- Gangrenous 3rd and 4th L toes. Evidence of OM in 4th and 2nd toes on the previous MRI. erythema extends to dorsal foot at level of 3d and 4th metatarsal heads. - previous culture noted. - received vanco in ER. - add zosyn . ID consult - vanco level in am before HD - cont ASA and plavix. - podiatry and vascular consult - I do not think heparin gtt is indicated, but will double check with Dr. hebert. - NPO after mid night in case a procedure is planned . - statin 2- H/o HTN: continue his HZn and nifedipine 3- H/O ESRD: HD MWF - renal consult pending Recs - cont lasix - cont sevelamir 4- h/o DM , was taken off Dm meds due to A1c of 5.6 in 2016. will repeat A1c and place on SSI 5- HLOC
--- NOTE | 2018-06-05 18:44 | HP ---
CHIEF COMPLAINT: left 3rd/4th toe blackening and pain PCP: HISTORY OF PRESENT ILLNESS: Pt is a 68 y/o M w/ PMHx CAD, [place], PVD, ?NIDDM, ESRD on HD (MWF), HTN, HLD recently admitted for gangrene/osteomyelitis of the left foot on 05/16 ( underwent LLE angioplasty at that time, d/c'd without amputation for wound care , PO ABx/conservative management) now presenting with worsening pain and discoloration of the left 4th toe and blackening and pain of the 3rd toe since last night. Denies fever, chills, n/v/c/d, chest pain, SOB, general or focal weakness. ER course was notable for: (1) Dr. Paiz consulted (had performed prior angioplasty) (2) afebrile, WBC 11.1, vitals stable (3) 1 dose Vanc/Zosyn, 4mg morphine given Recent Travel: PAST MEDICAL HISTORY: As per HPI PAST SURGICAL HISTORY: As per HPI + Left AVF 2017, Cataract surgery Social History: Smoking: denies Alcohol: denies Drugs: denies Family History: mother, father, siblings have DM Allergies No Known Allergies Allergy (Verified 05/14/18 19:30) HOME MEDICATIONS: Home Medications Medication Instructions Recorded Sevelamer HCl [Renagel] 800 mg PO TIDCM 05/16/18 Aspirin Coated [Ecotrin -] 81 mg PO DAILY #30 tablet.ec 05/27/18 Atorvastatin Ca [Lipitor] 20 mg PO HS #30 tablet 05/27/18 Calcitriol [Calcitriol -] 0.25 mcg PO DAILY #30 capsule 05/27/18 Clopidogrel Bisulfate [Plavix -] 75 mg PO DAILY #30 tablet 05/27/18 Furosemide [Lasix -] 40 mg PO DAILY #30 tablet 05/27/18 Hydralazine HCl 100 mg PO TID #90 tablet 05/27/18 Nifedipine ER [Procardia XL -] 60 mg PO BID #60 tab.er.24 05/27/18 Acetaminophen [Tylenol] 650 mg PO QID PRN 06/05/18 REVIEW OF SYSTEMS As per HPI PHYSICAL EXAMINATION Vital Signs - 24 hr 06/05/18 06/05/18 09:00 14:17 Temperature 98.2 F Pulse Rate 69 Pulse Rate [ 57 L Apical] Respiratory 18 14 Rate Blood Pressure 147/60 Blood Pressure 130/57 [Right] O2 Sat by Pulse 96 96 Oximetry (%) GENERAL: A&Ox3 HEAD: NC/AT EYES: L eye non-reactive s/p cataract surgery, R eye nl EARS, NOSE, THROAT: oropharynx clear without exudates. Moist mucous membranes. NECK: Normal range of motion, supple without lymphadenopathy, +JVD LUNGS: CTA b/l HEART: RRR, sys murmur at LUSB ABDOMEN: +bs, soft, NT, ND UPPER EXTREMITIES: 2+ pulses, warm, well-perfused. No cyanosis. No clubbing. No peripheral edema. LOWER EXTREMITIES: 2+ pulse right, 1+ pulse left, 3rd and 4th toes of LLE black , tender, swollen, cool, severely tender, scant drainage on lateral aspect of 4th toe, scant erythema of proximal rim of digits, numb in 2nd toe NEUROLOGICAL: CN's, motor, and sensory systems without focal deficit, gait not assessed PSYCHIATRIC: Cooperative. Good eye contact. Appropriate mood and affect. Laboratory Results - last 24 hr 06/05/18 06/05/18 06/05/18 11:00 11:00 11:00 WBC 11.1 H RBC 2.60 L Hgb 8.8 L Hct 26.3 L MCV 101.1 H MCH 34.0 H MCHC 33.7 RDW 17.6 H Plt Count 394 D MPV 7.9 Absolute Neuts (auto) 8.7 H Neutrophils % 78.3 Lymphocytes % 6.4 L D Monocytes % 11.7 H Eosinophils % 2.3 Basophils % 1.3 Nucleated RBC % 0 PT with INR 12.30 INR 1.09 Sodium Cancelled Potassium Cancelled Chloride Cancelled Carbon Dioxide Cancelled Anion Gap Cancelled BUN Cancelled Creatinine Cancelled Creat Clearance w eGFR Cancelled Random Glucose Cancelled Calcium Cancelled Total Bilirubin Cancelled AST Cancelled ALT Cancelled Alkaline Phosphatase Cancelled Total Protein Cancelled Albumin Cancelled 06/05/18 12:18 WBC RBC Hgb Hct MCV MCH MCHC RDW Plt Count MPV Absolute Neuts (auto) Neutrophils % Lymphocytes % Monocytes % Eosinophils % Basophils % Nucleated RBC % PT with INR INR Sodium 138 Potassium 3.7 Chloride 101 Carbon Dioxide 27 Anion Gap 10 BUN 28 H Creatinine 5.9 H Creat Clearance w eGFR 9.53 Random Glucose 119 H Calcium 10.0 Total Bilirubin 0.6 AST 32 ALT 19 Alkaline Phosphatase 351 H Total Protein 7.2 Albumin 2.9 L ASSESSMENT/PLAN: 68 y/o M w/ PMHx CAD, [place], PVD, ?NIDDM, ESRD on HD ([facility]), HTN, HLD recently admitted for gangrene/osteomyelitis of the left foot on 05/16 (underwent LLE angioplasty at that time, d/c'd without amputation for wound care, PO ABx/ conservative management, osteo of L 2nd and 3 digits per MRI) now presenting with worsening pain and discoloration of the left 4th toe and blackening and pain of the 3rd toe since last night #Gangrene of L 3rd and 4th right toes -afebrile, WBC 11.1, HR 68 -Dr. Paiz consulted -Vanc/Zosyn given in ED -cont Vanc/Zosyn: Zosyn now and q8 (renally dosed 2.25), Vanc dosed prior to HD -Vanco level in AM -foot XR unrevealing -BCx, Wound Cx pending -ID (Dr. Bishop) consulted -Podiatry (Dr. Garcia) consulted -wound care -morphine 2 q 4 PRN for pain? -ESR, CRP #ESRD on HD ([facility]) -Nephro (Dr. Flaherty) consulted -for HD tomorrow -cont home Lasix -cont home Sevelamer #DM -SSI -BGM -last A1c in 2015, 5.9% -obtain new A1c #CAD/PVD -cont ASA/Plavix #HTN -cont home nifedipine -cont home hydralazine #anemia -most likely chronic, 2/2 ESRD -EPO #FEN -no fluids -monitor chemistries -diabetic/sodium controlled, NPO after midnight #PPx -no heparin at this time per vascular #dispo -admit to med surg Visit type - Emergency Visit Emergency Visit: No - New Patient This patient is new to me today: No - Critical Care Critical Care patient: No Hospitalist Screening - Colonoscopy Questionnaire Colonoscopy Questionnaire: Colonoscopy Questionnaire - Patient: 50 - 75 years old and never had a screening colonoscopy: Unknown History of colon or rectal polyps, or CA: Unknown History of IBD, Crohn's disease or UC: Unknown History of abdominal radiation therapy as a child: Unknown - Relative: 1 with colon or rectal CA, or polyps at age 60 or younger: Unknown Colon or rectal CA diagnosed at age 45 or younger: Unknown Multiple relatives with colon or rectal CA: Unknown - Outcome: Screening Result: Negative Screen
[2018-06-05] MEDS ORDERED: SODIUM CHLORIDE 1,000 ML IV SCH (18:45)
[2018-06-05] MEDS ORDERED: NIFEdipine E.R 60 MG TABLET (UD) PO SCH (22:00)
[2018-06-05] MEDS ORDERED: ATORVASTATIN CA 20 MG TABLET (FP) PO SCH (22:00)
[2018-06-05] MEDS ORDERED: HEPARIN NA (PORCINE) 5,000 UNITS/ML 1ML VIAL SQ SCH (22:00)
[2018-06-05] MEDS ORDERED: hydrALAZINE HCL 50 MG TABLET (FP) PO SCH (22:00)
[2018-06-05] MEDS ORDERED: INSULIN SLIDING SCALE (NOVOLOG) 1 VIAL SQ SCH (22:00)
[2018-06-05] MEDS ORDERED: hydrALAZINE HCL 25 MG TABLET (FP) ONE (22:08)
[2018-06-05] MEDS ORDERED: NIFEdipine E.R. 30 MG TABLET (FP) ONE (22:09)
[2018-06-05] MEDS ORDERED: ATORVASTATIN CA 10 MG TABLET (FP) ONE (22:09)
[2018-06-05] MEDS ORDERED: PIPERACILLIN/TAZOB 2.25 GM 2.25 GM in DEXTROSE 5%-WATER - 50 ML IVPB SCH (22:30)
[2018-06-06] MEDS: hydrALAZINE HCL 50 MG TABLET (FP) PO SCH ×3 (01:02→22:17)
[2018-06-06] MEDS: PIPERACILLIN/TAZOB 2.25 GM 2.25 GM in DEXTROSE 5%-WATER - 50 ML IVPB SCH ×4 (01:02→17:59)
[2018-06-06] MEDS: ATORVASTATIN CA 20 MG TABLET (FP) PO SCH ×2 (01:02→22:17)
[2018-06-06] MEDS: NIFEdipine E.R 60 MG TABLET (UD) PO SCH ×3 (01:03→22:17)
[2018-06-06] MEDS ORDERED: PIPERACILLIN/TAZOBACTAM 2.25 GM VIAL IVPB ONE ×3 (02:35→17:54)
[2018-06-06] MEDS: MORPHINE SULFATE 2 MG/ML VIAL IVPUSH PRN ×2 (04:49→16:56)
[2018-06-06] MEDS ORDERED: MORPHINE SULFATE 2 MG/ML VIAL ONE (04:49)
[2018-06-06] MEDS ORDERED: hydrALAZINE HCL 25 MG TABLET (FP) ONE (06:02)
[2018-06-06] MEDS ORDERED: ACETAMINOPHEN 325 MG TABLET (FP) ONE ×2 (06:02→09:40)
[2018-06-06 07:13] LABS: BASO % 0.7 % (0-2.0); EOS % 4.2 % (0-4.5); HEMATOCRIT 25.3 % (35.4-49); HEMOGLOBIN 8.5 GM/dL (11.7-16.9); LYMPH % 6.4 % (8-40); MCH 33.9 pg (25.7-33.7); MCHC 33.7 g/dl (32.0-35.9); MEAN CELL VOLUME 100.7 fl (80-96); MEAN PLT VOLUME 7.8 fl (7.5-11.1); MONO % 9.3 % (3.8-10.2); NEUT % 79.4 % (42.8-82.8); PLATELET COUNT 345 K/MM3 (134-434); RBC 2.52 M/mm3 (4.00-5.60); RDW 17.2 % (11.9-15.9); WHITE BLOOD COUNT 9.6 K/mm3 (4.0-10.0)
[2018-06-06 07:28] LABS: INR 1.09 (0.83-1.09); PROTHROMBIN TIME (PATIENT) 12.3 SEC (9.7-13.0)
[2018-06-06 07:31] LABS: ACTIVATED PTT 38.8 SECONDS (25.2-36.5)
[2018-06-06 07:52] LABS: ANION GAP 9 MMOL/L (8-16); BLOOD UREA NITROGEN 36 mg/dL (7-18); CALCIUM 9.4 mg/dL (8.5-10.1); CHLORIDE 98 mmol/L (98-107); CO2 25 mmol/L (21-32); CREATININE 7.2 mg/dL (0.55-1.3); GLUCOSE,RANDOM 112 mg/dL (74-106); MAGNESIUM 2.4 mg/dL (1.8-2.4); PHOSPHOROUS 4.9 mg/dL (2.5-4.9); POTASSIUM 4.3 mmol/L (3.5-5.1); SODIUM 132 mmol/L (136-145)
[2018-06-06] MEDS: SEVELAMER CARBONATE 800 MG TAB (FP) PO SCH ×2 (08:01→16:56)
[2018-06-06] MEDS: ACETAMINOPHEN 325 MG TABLET (FP) PO PRN ×4 (09:46→22:20)
[2018-06-06] MEDS: ASPIRIN COATED 81 MG TABLET.EC PO SCH (09:47)
[2018-06-06] MEDS: CALCITRIOL 0.25 MCG CAPSULE (FP) PO SCH (09:48)
[2018-06-06] MEDS: FUROSEMIDE 40 MG TABLET (FP) PO SCH (11:18)
[2018-06-06] MEDS: INSULIN SLIDING SCALE (NOVOLOG) 1 VIAL SQ SCH ×2 (11:19→17:01)
--- NOTE | 2018-06-06 13:04 | PN ---
Progress Note (short form) - Note Progress Note: ID Consult dictated Gangrene L foot ESRD DM Empiric vanco/ zosyn Surgical evaluation
[2018-06-06] MEDS ORDERED: SODIUM CHLORIDE 250 ML IV PRN (13:30)
[2018-06-06] MEDS ORDERED: EPOETIN ALFA 10,000 UNIT/1 ML VIAL IVPUSH ONE (14:00)
--- NOTE | 2018-06-06 14:55 | CONS ---
DATE OF CONSULTATION: DATE OF DICTATION: 06/06/2018 HISTORY: The patient is a 68-year-old male with a history of end-stage renal disease on hemodialysis, history of gangrene of the left foot now readmitted with increasing pain and gangrenous changes of his left foot. The patient was hospitalized at [facility] from May 15 through May 28. At that time, he was treated for gangrene of the left foot. He had dry gangrene of the left 4th toe. He underwent angioplasty. Amputation of the toe was not performed as per Vascular Surgery and Podiatry. He now returns with increasing pain of the left foot and gangrenous changes of the left 3rd toe. He denies any associated fever or chills. PAST MEDICAL HISTORY: Positive for end-stage renal disease on hemodialysis, [id number] diabetes mellitus, hypertension, BPH. PAST SURGICAL HISTORY: Status post left upper extremity AV fistula. ALLERGIES: No known allergies. LABORATORY DATA: White count 9.6, hematocrit 25.3, platelet count 345, creatinine 7.2. Previous wound cultures grew mixed organisms including pseudomonas, Klebsiella, Serratia, and coagulase-negative staphylococcus. PHYSICAL EXAMINATION: General: He is in no acute distress. Vital Signs: Temperature 97.7, blood pressure 136/76, pulse 66 and regular, respirations 18 per minute. HEENT: Sclerae anicteric. Heart: Sounds S1, S2. Lungs: Clear. Abdomen: Soft, nontender. Extremities: Examination of the left foot, the left 3rd and 4th toes are necrotic with dry gangrene. There is some hyperemia at the base of the toes and swelling of the foot. It is very tender to touch. IMPRESSION: 1. Gangrene, left foot. 2. End-stage renal disease. 3. Diabetes mellitus. PLAN: Advanced surgical evaluation pending cultures. Empiric antibiotic coverage with vancomycin and Zosyn adjusted for end-stage renal disease. Thank you for the kind referral. AKIL PANTOJA M.D. [id number]
--- NOTE | 2018-06-06 16:23 | PN ---
Progress Note, Physician History of Present Illness: Pt seen and examined at bedside. He is currently getting HD. - Current Medication List Current Medications: Active Medications Acetaminophen (Tylenol -) 650 mg PO Q4H PRN PRN Reason: PAIN LEVEL 1-5 Last Admin: 06/06/18 14:02 Dose: 650 mg Aspirin (Ecotrin -) 81 mg PO DAILY [facility] Last Admin: 06/06/18 09:47 Dose: 81 mg Atorvastatin Calcium (Lipitor -) 20 mg PO HS [facility] Last Admin: 06/06/18 01:02 Dose: Not Given Calcitriol (Rocaltrol -) 0.25 mcg PO DAILY [facility] Last Admin: 06/06/18 09:48 Dose: 0.25 mcg Clopidogrel Bisulfate (Plavix -) 75 mg PO DAILY [facility] Furosemide (Lasix -) 40 mg PO DAILY [facility] Last Admin: 06/06/18 11:18 Dose: Not Given Hydralazine HCl (Apresoline -) 100 mg PO TID [facility] Last Admin: 06/06/18 06:11 Dose: 100 mg Piperacillin Sod/Tazobactam (Sod 2.25 gm/ Dextrose) 50 mls @ 100 mls/hr IVPB Q8H-IV [facility]; Protocol Insulin Aspart (Novolog Vial Sliding Scale -) 1 vial SQ TIDAC [facility]; Protocol Last Admin: 06/06/18 11:19 Dose: Not Given Morphine Sulfate (Morphine Sulfate) 2 mg IVPUSH Q4H PRN PRN Reason: PAIN LEVEL 6-10 Last Admin: 06/06/18 04:49 Dose: 2 mg Nifedipine (Procardia Xl -) 60 mg PO BID [facility] Last Admin: 06/06/18 09:47 Dose: 60 mg Sevelamer Carbonate (Renvela -) 800 mg PO TIDCM [facility] Last Admin: 06/06/18 08:01 Dose: Not Given - Objective Vital Signs: Vital Signs Temperature 98.1 F 06/06/18 15:19 Pulse Rate 64 06/06/18 15:51 Respiratory Rate 18 06/06/18 15:51 Blood Pressure 143/62 06/06/18 15:51 O2 Sat by Pulse Oximetry (%) 95 06/06/18 15:19 Constitutional: Yes: Calm Eyes: Yes: Conjunctiva Clear HENT: Yes: Atraumatic Neck: Yes: Supple Cardiovascular: Yes: S1, S2 Respiratory: Yes: CTA Bilaterally Gastrointestinal: Yes: Normal Bowel Sounds, Soft Genitourinary: Yes: WNL Musculoskeletal: Yes: WNL Extremities: Yes: Other (left 3rd and 4th toe gangrene) Edema: No Neurological: Yes: Oriented Psychiatric: Yes: Oriented Labs: CBC, BMP 06/06/18 06:30 06/06/18 06:30 INR, PTT INR 1.09 (0.83-1.09) 06/06/18 06:30 Problem List - Problems (1) ESRD (end stage renal disease) Code(s): N18.6 - END STAGE RENAL DISEASE (2) Gangrene Code(s): I96 - GANGRENE, NOT ELSEWHERE CLASSIFIED (3) PAD (peripheral artery disease) Code(s): I73.9 - PERIPHERAL VASCULAR DISEASE, UNSPECIFIED Assessment/Plan Current Medications Generic Name Dose Route Start Last Admin Trade Name Freq PRN Reason Stop Dose Admin Acetaminophen 650 mg 06/06/18 09:00 06/06/18 14:02 Tylenol - PO 650 mg Q4H PRN Administration PAIN LEVEL 1-5 Aspirin 81 mg 06/06/18 10:00 06/06/18 09:47 Ecotrin - PO 81 mg DAILY [facility] Administration Atorvastatin Calcium 20 mg 06/05/18 22:45 06/06/18 01:02 Lipitor - PO Not Given HS [facility] Calcitriol 0.25 mcg 06/06/18 10:00 06/06/18 09:48 Rocaltrol - PO 0.25 mcg DAILY [facility] Administration Clopidogrel Bisulfate 75 mg 06/06/18 10:00 Plavix - PO DAILY [facility] Furosemide 40 mg 06/06/18 10:00 06/06/18 11:18 Lasix - PO Not Given DAILY [facility] Hydralazine HCl 100 mg 06/05/18 22:45 06/06/18 06:11 Apresoline - PO 100 mg TID [facility] Administration Piperacillin Sod/Tazobactam 50 mls @ 100 mls/hr 06/06/18 18:00 Sod 2.25 gm/ Dextrose IVPB Q8H-IV [facility] Protocol Insulin Aspart 1 vial 06/06/18 07:00 06/06/18 11:19 Novolog Vial Sliding Scale - SQ Not Given TIDAC [facility] Protocol Morphine Sulfate 2 mg 06/05/18 19:53 06/06/18 04:49 Morphine Sulfate IVPUSH 2 mg Q4H PRN Administration PAIN LEVEL 6-10 Nifedipine 60 mg 06/05/18 22:45 06/06/18 09:47 Procardia Xl - PO 60 mg BID [facility] Administration Sevelamer Carbonate 800 mg 06/06/18 08:00 06/06/18 08:01 Renvela - PO Not Given TIDCM [facility] Impression 1. ESRD on HD 2. anemia 3. DM 4. HTN 5. toe infection/gangrene 6. PVD Plan - HD today - vascular surgery follow up - resume home meds - monitor BP - avf 3:00 400 abf - epogen 10,000 for anemia
--- NOTE | 2018-06-06 17:06 | CONSULT ---
Consult Consult Specialty:: vascular surgery Reason for Consultation:: gangrene left foot - History Source Limitations to Obtaining History: No Limitations - Past Medical History Cardio/Vascular: Yes: HTN, Other (PAD) Renal/: Yes: Renal Failure, Hemodialysis Endocrine: Yes: Diabetes Mellitus Additional Medical History: DM - Alcohol/Substance Use Hx Alcohol Use: No - Smoking History Smoking history: Never smoked Have you smoked in the past 12 months: No - Social History ADL: Independent Home Medications - Allergies Allergies/Adverse Reactions: Allergies Allergy/AdvReac Type Severity Reaction Status Date / Time No Known Allergies Allergy Verified 05/14/18 19:30 - Home Medications Home Medications: Ambulatory Orders Sevelamer HCl [Renagel] 800 mg PO TIDCM 05/16/18 Aspirin Coated [Ecotrin -] 81 mg PO DAILY #30 tablet.ec 05/27/18 Atorvastatin Ca [Lipitor] 20 mg PO HS #30 tablet 05/27/18 Calcitriol [Calcitriol -] 0.25 mcg PO DAILY #30 capsule 05/27/18 Clopidogrel Bisulfate [Plavix -] 75 mg PO DAILY #30 tablet 05/27/18 Furosemide [Lasix -] 40 mg PO DAILY #30 tablet 05/27/18 Hydralazine HCl 100 mg PO TID #90 tablet 05/27/18 Nifedipine ER [Procardia XL -] 60 mg PO BID #60 tab.er.24 05/27/18 Acetaminophen [Tylenol] 650 mg PO QID PRN 06/05/18 Review of Systems - Review of Systems Constitutional: reports: No Symptoms Eyes: reports: No Symptoms HENT: reports: No Symptoms Neck: reports: No Symptoms Cardiovascular: reports: No Symptoms Respiratory: reports: No Symptoms Gastrointestinal: reports: No Symptoms Genitourinary: reports: No Symptoms Musculoskeletal: reports: No Symptoms Integumentary: reports: No Symptoms Neurological: reports: No Symptoms Endocrine: reports: No Symptoms Hematology/Lymphatic: reports: No Symptoms Psychiatric: reports: No Symptoms Physical Exam Vital Signs: Vital Signs Temperature 98.1 F 06/06/18 15:19 Pulse Rate 64 06/06/18 15:51 Respiratory Rate 18 06/06/18 15:51 Blood Pressure 143/62 06/06/18 15:51 O2 Sat by Pulse Oximetry (%) 95 06/06/18 15:19 Constitutional: Yes: Well Nourished, No Distress, Calm Eyes: Yes: WNL, Conjunctiva Clear, EOM Intact HENT: Yes: WNL, Atraumatic, Normocephalic Neck: Yes: WNL, Supple, Trachea Midline Cardiovascular: Yes: WNL, Regular Rate and Rhythm Respiratory: Yes: WNL, Regular, CTA Bilaterally Gastrointestinal: Yes: WNL, Normal Bowel Sounds ...Rectal Exam: Yes: WNL Renal/: Yes: WNL Breast(s): Yes: WNL Musculoskeletal: Yes: WNL Extremities: Yes: Other (gangrene left foot) Integumentary: Yes: WNL Neurological: Yes: WNL, Alert, Oriented ...Motor Strength: WNL Psychiatric: Yes: WNL Labs: CBC, BMP 06/06/18 06:30 06/06/18 06:30 Problem List - Problems (1) Gangrene of foot Code(s): I96 - GANGRENE, NOT ELSEWHERE CLASSIFIED (2) PAD (peripheral artery disease) Assessment/Plan: Gangrene left foot 1. CTA ordered. 2. Will need angiogram early next week. Code(s): I73.9 - PERIPHERAL VASCULAR DISEASE, UNSPECIFIED (3) Diabetic foot infection Code(s): E11.628 - TYPE 2 DIABETES MELLITUS WITH OTHER SKIN COMPLICATIONS; L08.9 - LOCAL INFECTION OF THE SKIN AND SUBCUTANEOUS TISSUE, UNSP
[2018-06-06] MEDS ORDERED: DEXTROSE 5%-WATER - 50 ML IVPB ONE (17:54)
--- NOTE | 2018-06-06 18:07 | PN ---
Teaching Attending Note Name of Resident: Aram Duran ATTENDING PHYSICIAN STATEMENT I saw and evaluated the patient. I reviewed the resident's note and discussed the case with the resident. I agree with the resident's findings and plan as documented. SUBJECTIVE: no fever or chills . cont to have pain in L 3rd and 4th toe OBJECTIVES NAD CV: RRR, 3/6 M at LLSB and to a lesser extent at LUSB . Lungs: CTAB Ext: no edema on legs or arms, scarce hair on legs especially Left. DP 2+ on R and 1+ on L. L 3rd and 4th toes are black and tender to touch. no sensation. decreased sensation to light touch but no pain in L 2nd toe with minimal dark discoloration at base. erythema and hyperpigmentation with no tenderness in dorsal foot at level of 3rd and 4th metatarsal heads . Nl sensation to the rest of the L foot and R foot. ASSESSMENT AND PLAN: 68 y/o man with h/o CAD, recent [place], PVD, ESRD on HD, HTN, HLP, Hep B , DM, and recent admission for L 4th toe gangrene and OM, s/p angiogram, atherectomy and angioplasty, who presented with increased pain in foot and change in L 3rd toe color. He was found to have a gangrenous 3rd and 4th toes. 1- Gangrenous 3rd and 4th L toes. OM. - vanco and zosyn per HD schedule - follow vanco level in am - cont ASa and plavix - CTA per vascular . angio next week - statin - podiatry consult is still pending 2- H/o HTN: continue his HZn and nifedipine 3- H/O ESRD: HD per schedule - cont lasix - cont sevelamir 4- h/o DM , A1c is 5.5 , no need for meds 5- HLOC
--- NOTE | 2018-06-06 19:27 | PN ---
Physical Exam: SUBJECTIVE: Patient seen and examined at bedside. Continues to complain of severe pain in the toes, no other complaints. OBJECTIVE: Vital Signs Period Temp Pulse Resp BP Sys/Cole Pulse Ox Last 24 Hr 97.7 F-99.2 F 54-82 16-20 112-149/56-83 94-97 GENERAL: A&Ox3 HEAD: NC/AT EYES: L eye non-reactive s/p cataract surgery, R eye nl EARS, NOSE, THROAT: oropharynx clear without exudates. Moist mucous membranes. NECK: Normal range of motion, supple without lymphadenopathy, +JVD LUNGS: CTA b/l HEART: RRR, sys murmur at LUSB ABDOMEN: +bs, soft, NT, ND UPPER EXTREMITIES: 2+ pulses, warm, well-perfused. No cyanosis. No clubbing. No peripheral edema. LOWER EXTREMITIES: 2+ pulse right, 1+ pulse left, 3rd and 4th toes of LLE black , tender, swollen, cool, severely tender, scant drainage on lateral aspect of 4th toe, scant erythema of proximal rim of digits, numb in 2nd toe NEUROLOGICAL: CN's, motor, and sensory systems without focal deficit, gait not assessed PSYCHIATRIC: Cooperative. Good eye contact. Appropriate mood and affect. Laboratory Results - last 24 hr 06/05/18 06/06/18 06/06/18 19:22 06:30 06:30 WBC 9.6 RBC 2.52 L Hgb 8.5 L Hct 25.3 L MCV 100.7 H MCH 33.9 H MCHC 33.7 RDW 17.2 H Plt Count 345 MPV 7.8 Absolute Neuts (auto) 7.6 Neutrophils % 79.4 Lymphocytes % 6.4 L Monocytes % 9.3 Eosinophils % 4.2 D Basophils % 0.7 Nucleated RBC % 0 ESR 122 H PT with INR INR PTT (Actin FS) Sodium Potassium Chloride Carbon Dioxide Anion Gap BUN Creatinine Creat Clearance w eGFR POC Glucometer Random Glucose Hemoglobin A1c % Calcium Phosphorus Magnesium C-Reactive Protein Blood Type O POSITIVE Antibody Screen Negative 06/06/18 06/06/18 06/06/18 06:30 06:30 06:30 WBC RBC Hgb Hct MCV MCH MCHC RDW Plt Count MPV Absolute Neuts (auto) Neutrophils % Lymphocytes % Monocytes % Eosinophils % Basophils % Nucleated RBC % ESR PT with INR 12.30 INR 1.09 PTT (Actin FS) 38.8 H Sodium 132 L Potassium 4.3 Chloride 98 Carbon Dioxide 25 Anion Gap 9 BUN 36 H Creatinine 7.2 H Creat Clearance w eGFR 7.57 POC Glucometer Random Glucose 112 H Hemoglobin A1c % Calcium 9.4 Phosphorus 4.9 Magnesium 2.4 C-Reactive Protein 13.4 H Cancelled Blood Type Antibody Screen 06/06/18 06/06/18 06/06/18 06:30 11:18 17:00 WBC RBC Hgb Hct MCV MCH MCHC RDW Plt Count MPV Absolute Neuts (auto) Neutrophils % Lymphocytes % Monocytes % Eosinophils % Basophils % Nucleated RBC % ESR PT with INR INR PTT (Actin FS) Sodium Potassium Chloride Carbon Dioxide Anion Gap BUN Creatinine Creat Clearance w eGFR POC Glucometer 120.27603 129 Random Glucose Hemoglobin A1c % 5.5 Calcium Phosphorus Magnesium C-Reactive Protein Blood Type Antibody Screen Active Medications Generic Name Dose Route Start Last Admin Trade Name Freq PRN Reason Stop Dose Admin Acetaminophen 650 mg 06/06/18 09:00 06/06/18 18:02 Tylenol - PO 650 mg Q4H PRN Administration PAIN LEVEL 1-5 Aspirin 81 mg 06/06/18 10:00 06/06/18 09:47 Ecotrin - PO 81 mg DAILY [facility] Administration Atorvastatin Calcium 20 mg 06/05/18 22:45 06/06/18 01:02 Lipitor - PO Not Given HS [facility] Calcitriol 0.25 mcg 06/06/18 10:00 06/06/18 09:48 Rocaltrol - PO 0.25 mcg DAILY [facility] Administration Clopidogrel Bisulfate 75 mg 06/06/18 10:00 Plavix - PO DAILY [facility] Furosemide 40 mg 06/06/18 10:00 06/06/18 11:18 Lasix - PO Not Given DAILY [facility] Hydralazine HCl 100 mg 06/05/18 22:45 06/06/18 06:11 Apresoline - PO 100 mg TID [facility] Administration Piperacillin Sod/Tazobactam 50 mls @ 100 mls/hr 06/06/18 18:00 06/06/18 17:59 Sod 2.25 gm/ Dextrose IVPB 100 mls/hr Q8H-IV [facility] Administration Protocol Insulin Aspart 1 vial 06/06/18 07:00 06/06/18 17:01 Novolog Vial Sliding Scale - SQ Not Given TIDAC [facility] Protocol Morphine Sulfate 2 mg 06/05/18 19:53 06/06/18 16:56 Morphine Sulfate IVPUSH 2 mg Q4H PRN Administration PAIN LEVEL 6-10 Nifedipine 60 mg 06/05/18 22:45 06/06/18 09:47 Procardia Xl - PO 60 mg BID [facility] Administration Sevelamer Carbonate 800 mg 06/06/18 08:00 06/06/18 16:56 Renvela - PO 800 mg TIDCM [facility] Administration ASSESSMENT/PLAN: 68 y/o M w/ PMHx CAD, [place], PVD, ?NIDDM, ESRD on HD ([facility]), HTN, HLD recently admitted for gangrene/osteomyelitis of the left foot on 05/16 (underwent LLE angioplasty at that time, d/c'd without amputation for wound care, PO ABx/ conservative management, osteo of L 2nd and 3 digits per MRI) now presenting with worsening pain and discoloration of the left 4th toe and blackening and pain of the 3rd toe since last night #Gangrene of L 3rd and 4th right toes -afebrile, WBC 11.1, HR 68 -Dr. Paiz consulted: "1. CTA ordered. 2. Will need angiogram early next week." -ID (Dr. Bishop/Dr. Reyez) consulted: Vanc/Zosyn -Podiatry (Dr. Garica) consulted -morphine 2 q 4 PRN for pain #ESRD on HD ([facility]) -Nephro (Dr. Flaherty) consulted -HD today -cont home Lasix -cont home Sevelamer #DM -new A1c 5.5 -no hypoglycemics or BGM #CAD/PVD -cont ASA/Plavix #HTN -cont home nifedipine -cont home hydralazine #anemia -most likely chronic, 2/2 ESRD -EPO #FEN -no fluids -monitor chemistries -diabetic/renal diet #PPx -no heparin at this time per vascular #dispo -med surg Visit type - Emergency Visit Emergency Visit: No - New Patient This patient is new to me today: No - Critical Care Critical Care patient: No
[2018-06-06] MEDS ORDERED: PT OWN MED DRAWER 7, Y5N ONE (21:21)
[2018-06-07] MEDS ORDERED: DEXTROSE 5%-WATER - 50 ML IVPB ONE ×3 (01:50→16:54)
[2018-06-07] MEDS ORDERED: PIPERACILLIN/TAZOBACTAM 2.25 GM VIAL IVPB ONE ×3 (01:50→16:53)
[2018-06-07] MEDS: PIPERACILLIN/TAZOB 2.25 GM 2.25 GM in DEXTROSE 5%-WATER - 50 ML IVPB SCH ×3 (01:56→16:59)
[2018-06-07] MEDS: hydrALAZINE HCL 50 MG TABLET (FP) PO SCH ×3 (06:12→21:51)
[2018-06-07] MEDS: INSULIN SLIDING SCALE (NOVOLOG) 1 VIAL SQ SCH ×3 (06:13→16:57)
[2018-06-07] MEDS: SEVELAMER CARBONATE 800 MG TAB (FP) PO SCH ×3 (08:14→16:58)
[2018-06-07 08:53] LABS: HEMATOCRIT 25.5 % (35.4-49); HEMOGLOBIN 8.6 GM/dL (11.7-16.9); MCH 34.3 pg (25.7-33.7); MCHC 33.8 g/dl (32.0-35.9); MEAN CELL VOLUME 101.5 fl (80-96); PLATELET COUNT 349 K/MM3 (134-434); RBC 2.52 M/mm3 (4.00-5.60); RDW 17.2 % (11.9-15.9); WHITE BLOOD COUNT 10.7 K/mm3 (4.0-10.0)
[2018-06-07 09:01] LABS: ANION GAP 12 MMOL/L (8-16); BLOOD UREA NITROGEN 22 mg/dL (7-18); CALCIUM 10.1 mg/dL (8.5-10.1); CHLORIDE 100 mmol/L (98-107); CO2 28 mmol/L (21-32); CREATININE 5.1 mg/dL (0.55-1.3); GLUCOSE,RANDOM 138 mg/dL (74-106); MAGNESIUM 2.2 mg/dL (1.8-2.4); PHOSPHOROUS 3.9 mg/dL (2.5-4.9); POTASSIUM 3.8 mmol/L (3.5-5.1); SODIUM 141 mmol/L (136-145)
[2018-06-07] MEDS: CLOPIDOGREL BISULFATE 75 MG TABLET (FP) PO SCH ×2 (11:07→11:10)
[2018-06-07] MEDS: ASPIRIN COATED 81 MG TABLET.EC PO SCH (11:07)
[2018-06-07] MEDS: FUROSEMIDE 40 MG TABLET (FP) PO SCH (11:07)
[2018-06-07] MEDS: CALCITRIOL 0.25 MCG CAPSULE (FP) PO SCH (11:07)
[2018-06-07] MEDS ORDERED: PT OWN MED DRAWER 7, Y5N ONE ×2 (11:10→21:49)
[2018-06-07] MEDS: NIFEdipine E.R 60 MG TABLET (UD) PO SCH ×2 (11:10→21:52)
--- NOTE | 2018-06-07 11:49 | PN ---
Physical Exam: SUBJECTIVE: Patient seen and examined. No Chest pain or SOB. Says pain is improved except for when the foot is touched. To get a CTA and then an angiogram. OBJECTIVE: Vital Signs Period Temp Pulse Resp BP Sys/Cole Pulse Ox Last 24 Hr 97.7 F-99 F 54-82 18-20 112-161/60-83 94-95 GENERAL: The patient is awake, alert, and fully oriented, in no acute painful distress. ENT: oropharynx clear without exudates, moist mucous membranes. LUNGS: Breath sounds equal, clear to auscultation bilaterally HEART: Regular rate and rhythm, S1, S2 without murmur, rub or gallop. ABDOMEN: Soft, nontender, nondistended, normoactive bowel sounds, no guarding, no rebound, no hepatosplenomegaly, no masses. EXTREMITIES: Reduced pulses b/l LE, LLE with gangrenous 3rd and 4th toes, with some liquefaction around 4th toe. Dressing recently changed, clean and dry, very mild tenderness on palpation of plantar surface of L foot . NEUROLOGICAL: Cranial nerves II through XII grossly intact. Normal speech, gait not observed. Normal tone and strenght, absent facial asymmetry. PSYCH: Normal mood, normal affect. Laboratory Results - last 24 hr 06/06/18 06/07/18 06/07/18 17:00 06:11 07:30 WBC RBC Hgb Hct MCV MCH MCHC RDW Plt Count MPV Sodium Potassium Chloride Carbon Dioxide Anion Gap BUN Creatinine Creat Clearance w eGFR POC Glucometer 129 125 Random Glucose Calcium Phosphorus Magnesium Random Vancomycin 11.1 L 06/07/18 06/07/18 07:30 07:30 WBC 10.7 H RBC 2.52 L Hgb 8.6 L Hct 25.5 L MCV 101.5 H MCH 34.3 H MCHC 33.8 RDW 17.2 H Plt Count 349 MPV 8.0 Sodium 141 Potassium 3.8 Chloride 100 Carbon Dioxide 28 Anion Gap 12 BUN 22 H Creatinine 5.1 H Creat Clearance w eGFR 11.27 POC Glucometer Random Glucose 138 H Calcium 10.1 Phosphorus 3.9 Magnesium 2.2 Random Vancomycin Ambulatory Orders Sevelamer HCl [Renagel] 800 mg PO TIDCM 05/16/18 Aspirin Coated [Ecotrin -] 81 mg PO DAILY #30 tablet.ec 05/27/18 Atorvastatin Ca [Lipitor] 20 mg PO HS #30 tablet 05/27/18 Calcitriol [Calcitriol -] 0.25 mcg PO DAILY #30 capsule 05/27/18 Clopidogrel Bisulfate [Plavix -] 75 mg PO DAILY #30 tablet 05/27/18 Furosemide [Lasix -] 40 mg PO DAILY #30 tablet 05/27/18 Hydralazine HCl 100 mg PO TID #90 tablet 05/27/18 Nifedipine ER [Procardia XL -] 60 mg PO BID #60 tab.er.24 05/27/18 Acetaminophen [Tylenol] 650 mg PO QID PRN 06/05/18 Current Medications Acetaminophen (Tylenol -) 650 mg PO Q4H PRN PRN Reason: PAIN LEVEL 1-5 Last Admin: 06/07/18 13:51 Dose: 650 mg Aspirin (Ecotrin -) 81 mg PO DAILY [facility] Last Admin: 06/07/18 11:07 Dose: 81 mg Atorvastatin Calcium (Lipitor -) 20 mg PO HS [facility] Last Admin: 06/06/18 22:17 Dose: 20 mg Calcitriol (Rocaltrol -) 0.25 mcg PO DAILY [facility] Last Admin: 06/07/18 11:07 Dose: 0.25 mcg Clopidogrel Bisulfate (Plavix -) 75 mg PO DAILY [facility] Last Admin: 06/07/18 11:10 Dose: 75 mg Furosemide (Lasix -) 40 mg PO DAILY [facility] Last Admin: 06/07/18 11:07 Dose: 40 mg Hydralazine HCl (Apresoline -) 100 mg PO TID [facility] Last Admin: 06/07/18 13:51 Dose: 100 mg Piperacillin Sod/Tazobactam (Sod 2.25 gm/ Dextrose) 50 mls @ 100 mls/hr IVPB Q8H-IV [facility]; Protocol Last Admin: 06/07/18 11:03 Dose: 100 mls/hr Insulin Aspart (Novolog Vial Sliding Scale -) 1 vial SQ TIDAC [facility]; Protocol Last Admin: 06/07/18 12:02 Dose: 2 units Morphine Sulfate (Morphine Sulfate) 2 mg IVPUSH Q4H PRN PRN Reason: PAIN LEVEL 6-10 Last Admin: 06/06/18 16:56 Dose: 2 mg Nifedipine (Procardia Xl -) 60 mg PO BID [facility] Last Admin: 06/07/18 11:10 Dose: 60 mg Sevelamer Carbonate (Renvela -) 800 mg PO TIDCM [facility] Last Admin: 06/07/18 11:52 Dose: 800 mg ASSESSMENT/PLAN: 68 y/o M w/ PMHx CAD, [place], PVD, ESRD on HD (MWF), HTN, HLD recently admitted for gangrene/osteomyelitis of the left foot on 05/16 (underwent LLE angioplasty at that time, d/c'd without amputation for wound care, PO ABx/conservative management, osteo of L 2nd and 3 digits per MRI) now presenting with worsening pain and discoloration of the left 4th toe and blackening and pain of the 3rd toe since last night #Gangrene of L 3rd and 4th right toes -presented without fever, WBC 11.1, HR 68 -Dr. Paiz consulted: "1. CTA ordered. 2. Will need angiogram early next week." -ID (Dr. Bishop/Dr. Reyez) consulted: Vanc/Zosyn, intermittent vanco dosing based on vanc level -Podiatry (Dr. Garica) D/W Dr Garcia - he says he has d/w Dr Paiz and will see the pt today -morphine 2 q 4 PRN for pain #ESRD on HD ([facility]) -Nephro (Dr. Flaherty) consulted -HD yesterday -cont home Lasix -cont home Sevelamer #CAD/PVD -cont ASA/Plavix #HTN -cont home nifedipine -cont home hydralazine #anemia -most likely chronic, 2/2 ESRD -EPO #FEN -no fluids -monitor chemistries -diabetic/renal diet #PPx -no heparin at this time per vascular #dispo -med surg Visit type - Emergency Visit Emergency Visit: Yes ED Registration Date: 06/05/18 Care time: The patient presented to the Emergency Department on the above date and was hospitalized for further evaluation of their emergent condition. - New Patient This patient is new to me today: No - Critical Care Critical Care patient: No - Discharge Referral Referred to [facility] Med P.C.: No
[2018-06-07] MEDS ORDERED: INSULIN (LEVEMIR) 100 UNITS/ML UNITS SQ ONE (11:57)
[2018-06-07] MEDS ORDERED: VANCOMYCIN 1,000 MG in DEXTROSE 5%-WATER - 250 ML IVPB ONE (11:59)
[2018-06-07] MEDS ORDERED: INSULIN (NOVOLOG) ASPART 100 UNITS/ML 10ML VIAL ONE (11:59)
[2018-06-07] MEDS: ACETAMINOPHEN 325 MG TABLET (FP) PO PRN ×2 (13:51→21:50)
--- NOTE | 2018-06-07 14:17 | PN ---
Teaching Attending Note Name of Resident: Germania Herbert ATTENDING PHYSICIAN STATEMENT I saw and evaluated the patient. I reviewed the resident's note and discussed the case with the resident. I agree with the resident's findings and plan as documented. SUBJECTIVE: No fever or chills . 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 pain in foot at 3rdand 4th toes . OBJECTIVE: NAD CV: RRR, 3/6 M at LLSB and to a lesser extent at LUSB . Lungs: CTAB Ext: no edema on legs or arms, scarce hair on legs especially Left. DP 2+ on R and 1+ on L. L 3rd and 4th toes are black and tender to touch. no sensation. decreased sensation to light touch but no pain in L 2nd toe with minimal dark discoloration at base. erythema and hyperpigmentation with no tenderness in dorsal foot at level of 3rd and 4th metatarsal heads . ASSESSMENT AND PLAN: 68 y/o man with h/o CAD, recent [place], PVD, ESRD on HD, HTN, HLP, Hep B , DM, and recent admission for L 4th toe gangrene and OM, s/p angiogram, atherectomy and angioplasty, who presented with increased pain in foot and change in L 3rd toe color. He was found to have a gangrenous 3rd and 4th toes. 1- Gangrenous 3rd and 4th L toes. OM. - vanco and zosyn. - vanco level noted. dose today. repeat level on Saturday - cont ASa and plavix - CTA pending. Angio next week - statin - podiatry consult is still pending. will contact 2- H/o HTN: continue his HZN and Nifedipine 3- H/O ESRD: HD per schedule - cont lasix - cont sevelamir HLOC
[2018-06-07] MEDS: MORPHINE SULFATE 2 MG/ML VIAL IVPUSH PRN (15:48)
--- NOTE | 2018-06-07 16:33 | CONSULT ---
Consult Consult Specialty:: Podiatry Reason for Consultation:: Ganagrene toes 2,3,4 left - History of Present Illness Chief Complaint: Pain and discolored toes 2,3,4 left History of Present Illness: Patient known to me from last admission. PVD and Diabetes with ganagrene 4th toe left. No amputation advised by vascular poor healing prognosis. - History Source History Provided By: Patient (Son Phillip wiggins and his ), Family Member - Past Medical History Cardio/Vascular: Yes: HTN, Other (PAD) Renal/: Yes: Renal Failure, Hemodialysis Endocrine: Yes: Diabetes Mellitus Dermatology: Yes: Other (gangarene) Additional Medical History: DM - Alcohol/Substance Use Hx Alcohol Use: No - Smoking History Smoking history: Never smoked Have you smoked in the past 12 months: No - Social History ADL: Independent Home Medications - Allergies Allergies/Adverse Reactions: Allergies Allergy/AdvReac Type Severity Reaction Status Date / Time No Known Allergies Allergy Verified 05/14/18 19:30 - Home Medications Home Medications: Ambulatory Orders Sevelamer HCl [Renagel] 800 mg PO TIDCM 05/16/18 Aspirin Coated [Ecotrin -] 81 mg PO DAILY #30 tablet.ec 05/27/18 Atorvastatin Ca [Lipitor] 20 mg PO HS #30 tablet 05/27/18 Calcitriol [Calcitriol -] 0.25 mcg PO DAILY #30 capsule 05/27/18 Clopidogrel Bisulfate [Plavix -] 75 mg PO DAILY #30 tablet 05/27/18 Furosemide [Lasix -] 40 mg PO DAILY #30 tablet 05/27/18 Hydralazine HCl 100 mg PO TID #90 tablet 05/27/18 Nifedipine ER [Procardia XL -] 60 mg PO BID #60 tab.er.24 05/27/18 Acetaminophen [Tylenol] 650 mg PO QID PRN 06/05/18 Review of Systems - Review of Systems Constitutional: reports: Other (pain severe) Musculoskeletal: reports: Other (Gangarene toes 2,3,4 with demarcation) Physical Exam Vital Signs: Vital Signs Temperature 98.6 F 06/07/18 09:30 Pulse Rate 71 06/07/18 09:30 Respiratory Rate 20 06/07/18 09:30 Blood Pressure 150/60 06/07/18 09:30 O2 Sat by Pulse Oximetry (%) 95 06/06/18 21:00 Extremities: Yes: Other (gangarene toes 2,3,4 left) Labs: CBC, BMP 06/07/18 07:30 06/07/18 07:30 Assessment/Plan gangarene toes 2,3,4 left pain Discussed at length with family. Planned tx course is possible revascularization then amputation. Discussed with doctor Chencho. Gave him Phillip [place] number to call them and discuss planned procedure. Told Phillip that Dr. Paiz will be calling him to discuss further with family. Patient not clearaed from vascular standpoint for debridement as patient has a poor prognosis for healing with current circulatory status. Will intervene emergently if patient appears to becoming septic. CTA Saturday then angiogram after that. Will follow.
--- NOTE | 2018-06-07 16:42 | PN ---
Progress Note (short form) - Note Progress Note: Vascular Surgery Awaiting CTA to be performed. CAn then do angio on saturday Kel hebert DO Problem List - Problems (1) Gangrene of foot Code(s): I96 - GANGRENE, NOT ELSEWHERE CLASSIFIED (2) PAD (peripheral artery disease) Code(s): I73.9 - PERIPHERAL VASCULAR DISEASE, UNSPECIFIED (3) Diabetic foot infection Code(s): E11.628 - TYPE 2 DIABETES MELLITUS WITH OTHER SKIN COMPLICATIONS; L08.9 - LOCAL INFECTION OF THE SKIN AND SUBCUTANEOUS TISSUE, UNSP
[2018-06-07] MEDS: ATORVASTATIN CA 20 MG TABLET (FP) PO SCH (21:51)
[2018-06-08] MEDS ORDERED: PIPERACILLIN/TAZOBACTAM 2.25 GM VIAL IVPB ONE ×3 (01:35→17:13)
[2018-06-08] MEDS: PIPERACILLIN/TAZOB 2.25 GM 2.25 GM in DEXTROSE 5%-WATER - 50 ML IVPB SCH ×3 (01:45→17:18)
[2018-06-08] MEDS: hydrALAZINE HCL 50 MG TABLET (FP) PO SCH ×4 (06:14→22:16)
[2018-06-08] MEDS: INSULIN SLIDING SCALE (NOVOLOG) 1 VIAL SQ SCH ×3 (06:14→11:34)
[2018-06-08 08:21] LABS: ANION GAP 14 MMOL/L (8-16); BLOOD UREA NITROGEN 30 mg/dL (7-18); CALCIUM 10.3 mg/dL (8.5-10.1); CHLORIDE 97 mmol/L (98-107); CO2 27 mmol/L (21-32); CREATININE 6.9 mg/dL (0.55-1.3); GLUCOSE,RANDOM 151 mg/dL (74-106); MAGNESIUM 2.2 mg/dL (1.8-2.4); PHOSPHOROUS 4.8 mg/dL (2.5-4.9); POTASSIUM 4.2 mmol/L (3.5-5.1); SODIUM 137 mmol/L (136-145)
[2018-06-08] MEDS ORDERED: PT OWN MED DRAWER 7, Y5N ONE ×2 (09:32→21:18)
[2018-06-08] MEDS ORDERED: DEXTROSE 5%-WATER - 50 ML IVPB ONE ×2 (09:33→17:14)
[2018-06-08] MEDS: FUROSEMIDE 40 MG TABLET (FP) PO SCH (09:36)
[2018-06-08] MEDS: NIFEdipine E.R 60 MG TABLET (UD) PO SCH ×2 (09:36→22:16)
[2018-06-08] MEDS: ASPIRIN COATED 81 MG TABLET.EC PO SCH (09:36)
[2018-06-08] MEDS: SEVELAMER CARBONATE 800 MG TAB (FP) PO SCH ×4 (09:36→17:17)
[2018-06-08] MEDS: CLOPIDOGREL BISULFATE 75 MG TABLET (FP) PO SCH (09:36)
[2018-06-08] MEDS: CALCITRIOL 0.25 MCG CAPSULE (FP) PO SCH (09:36)
--- NOTE | 2018-06-08 10:33 | PN ---
Progress Note (short form) - Note Progress Note: Subjective: No fever or chills. pain is better . no constipation Objective: Vital Signs: Last Vital Signs Temp Pulse Resp BP Pulse Ox 98.1 F 65 20 143/55 L 95 06/08/18 06:00 06/08/18 06:00 06/08/18 06:00 06/08/18 06:00 06/07/18 21:00 Laboratory Results - last 24 hr 06/07/18 06/07/18 06/08/18 11:53 16:49 06:12 Sodium Potassium Chloride Carbon Dioxide Anion Gap BUN Creatinine Creat Clearance w eGFR POC Glucometer 183 145 153 Random Glucose Calcium Phosphorus Magnesium 06/08/18 07:00 Sodium 137 Potassium 4.2 Chloride 97 L Carbon Dioxide 27 Anion Gap 14 BUN 30 H Creatinine 6.9 H Creat Clearance w eGFR 7.95 POC Glucometer Random Glucose 151 H Calcium 10.3 H Phosphorus 4.8 Magnesium 2.2 Physical Exam: NAD CV: RRR, 3/6 M at LLSB and to a lesser extent at LUSB . Lungs: CTAB Ext: no edema on legs or arms, scarce hair on legs especially Left. DP 2+ on R and 1+ on L. L 3rd and 4th toes are black .no tenderness today . no sensation. decreased sensation to light touch but no pain in L 2nd toe with minimal dark discoloration at base. erythema and hyperpigmentation with no tenderness in dorsal foot at level of 3rd and 4th metatarsal heads. worsening edema on dorsal L foot ASSESSMENT AND PLAN: 68 y/o man with h/o CAD, recent MD, PVD, ESRD on HD, HTN, HLP, Hep B , DM, and recent admission for L 4th toe gangrene and OM, s/p angiogram, atherectomy and angioplasty, who presented with increased pain in foot and change in L 3rd toe color. He was found to have a gangrenous 3rd and 4th toes. 1- Gangrenous 3rd and 4th L toes. OM. - vanco and zosyn. - cont ASa and plavix - CTA pending read. - plan for angio and then decision on surgery - statin 2- H/o HTN: continue his HZN and Nifedipine 3- H/O ESRD: HD per schedule - cont lasix - cont sevelamir HLOC Visit type - Emergency Visit Emergency Visit: Yes ED Registration Date: 06/05/18 Care time: The patient presented to the Emergency Department on the above date and was hospitalized for further evaluation of their emergent condition. - New Patient This patient is new to me today: No - Critical Care Critical Care patient: No
[2018-06-08] MEDS ORDERED: INSULIN (NOVOLOG) ASPART 100 UNITS/ML 10ML VIAL ONE (11:31)
[2018-06-08] MEDS: MORPHINE SULFATE 2 MG/ML VIAL IVPUSH PRN (15:37)
[2018-06-08] MEDS: ATORVASTATIN CA 20 MG TABLET (FP) PO SCH (22:16)
[2018-06-09] MEDS ORDERED: PIPERACILLIN/TAZOBACTAM 2.25 GM VIAL IVPB ONE ×2 (01:51→17:25)
[2018-06-09] MEDS ORDERED: DEXTROSE 5%-WATER - 50 ML IVPB ONE ×2 (01:52→17:25)
[2018-06-09] MEDS: PIPERACILLIN/TAZOB 2.25 GM 2.25 GM in DEXTROSE 5%-WATER - 50 ML IVPB SCH ×3 (01:56→17:29)
[2018-06-09] MEDS: hydrALAZINE HCL 50 MG TABLET (FP) PO SCH ×3 (06:15→22:40)
[2018-06-09] MEDS: INSULIN SLIDING SCALE (NOVOLOG) 1 VIAL SQ SCH ×3 (06:17→17:22)
[2018-06-09 08:38] LABS: ANION GAP 12 MMOL/L (8-16); BLOOD UREA NITROGEN 40 mg/dL (7-18); CALCIUM 9.5 mg/dL (8.5-10.1); CHLORIDE 96 mmol/L (98-107); CO2 26 mmol/L (21-32); GLUCOSE,RANDOM 127 mg/dL (74-106); POTASSIUM 4.4 mmol/L (3.5-5.1); SODIUM 133 mmol/L (136-145)
[2018-06-09 08:52] LABS: CREATININE 8.9 mg/dL (0.55-1.3)
[2018-06-09] MEDS ORDERED: SODIUM CHLORIDE 250 ML IV PRN (09:08)
[2018-06-09] MEDS: SEVELAMER CARBONATE 800 MG TAB (FP) PO SCH ×3 (10:00→17:37)
[2018-06-09] MEDS: ASPIRIN COATED 81 MG TABLET.EC PO SCH (10:00)
[2018-06-09] MEDS: FUROSEMIDE 40 MG TABLET (FP) PO SCH (10:00)
[2018-06-09] MEDS: CLOPIDOGREL BISULFATE 75 MG TABLET (FP) PO SCH (10:01)
[2018-06-09] MEDS: NIFEdipine E.R 60 MG TABLET (UD) PO SCH ×3 (10:02→22:40)
[2018-06-09] MEDS: CALCITRIOL 0.25 MCG CAPSULE (FP) PO SCH (10:03)
--- NOTE | 2018-06-09 10:04 | PN ---
Progress Note (short form) - Note Progress Note: VAscular surgery Awaiting official read on cta Recent angiogram on 05/18. If angio shows circulation is open. Then can proceed with toe amputations. Awaiting CTA results. Kel Paiz DO Problem List - Problems (1) Gangrene of foot Code(s): I96 - GANGRENE, NOT ELSEWHERE CLASSIFIED (2) PAD (peripheral artery disease) Code(s): I73.9 - PERIPHERAL VASCULAR DISEASE, UNSPECIFIED (3) Diabetic foot infection Code(s): E11.628 - TYPE 2 DIABETES MELLITUS WITH OTHER SKIN COMPLICATIONS; L08.9 - LOCAL INFECTION OF THE SKIN AND SUBCUTANEOUS TISSUE, UNSP
[2018-06-09] MEDS ORDERED: EPOETIN ALFA 10,000 UNIT/1 ML VIAL IVPUSH ONE (12:30)
--- NOTE | 2018-06-09 12:49 | PN ---
Progress Note, Physician History of Present Illness: Pt seen and examined at bedside. He is awake and alert. He is tolerating HD so far. - Current Medication List Current Medications: Active Medications Acetaminophen (Tylenol -) 650 mg PO Q4H PRN PRN Reason: PAIN LEVEL 1-5 Last Admin: 06/07/18 21:50 Dose: 650 mg Aspirin (Ecotrin -) 81 mg PO DAILY [facility] Last Admin: 06/09/18 10:00 Dose: Not Given Atorvastatin Calcium (Lipitor -) 20 mg PO HS [facility] Last Admin: 06/08/18 22:16 Dose: 20 mg Calcitriol (Rocaltrol -) 0.25 mcg PO DAILY [facility] Last Admin: 06/09/18 10:03 Dose: Not Given Clopidogrel Bisulfate (Plavix -) 75 mg PO DAILY [facility] Last Admin: 06/09/18 10:01 Dose: Not Given Furosemide (Lasix -) 40 mg PO DAILY [facility] Last Admin: 06/09/18 10:00 Dose: Not Given Hydralazine HCl (Apresoline -) 100 mg PO TID [facility] Last Admin: 06/09/18 06:15 Dose: 100 mg Piperacillin Sod/Tazobactam (Sod 2.25 gm/ Dextrose) 50 mls @ 100 mls/hr IVPB Q8H-IV [facility]; Protocol Last Admin: 06/09/18 10:04 Dose: Not Given Sodium Chloride (Normal Saline -) 250 mls @ 3,000 mls/hr IV PRN PRN PRN Reason: Hypotension during Dialysis Stop: 06/10/18 09:08 Insulin Aspart (Novolog Vial Sliding Scale -) 1 vial SQ TIDAC [facility]; Protocol Last Admin: 06/09/18 06:17 Dose: Not Given Morphine Sulfate (Morphine Sulfate) 2 mg IVPUSH Q4H PRN PRN Reason: PAIN LEVEL 6-10 Last Admin: 06/08/18 15:37 Dose: 2 mg Nifedipine (Procardia Xl -) 60 mg PO BID [facility] Last Admin: 06/09/18 10:02 Dose: Not Given Sevelamer Carbonate (Renvela -) 800 mg PO TIDCM [facility] Last Admin: 06/09/18 10:00 Dose: Not Given - Objective Vital Signs: Vital Signs Temperature 98.5 F 06/09/18 05:49 Pulse Rate 67 06/09/18 05:49 Respiratory Rate 20 06/09/18 05:49 Blood Pressure 146/65 06/09/18 05:49 O2 Sat by Pulse Oximetry (%) 95 06/07/18 21:00 Constitutional: Yes: Calm Eyes: Yes: Conjunctiva Clear HENT: Yes: Atraumatic Cardiovascular: Yes: S1, S2 Respiratory: Yes: CTA Bilaterally Gastrointestinal: Yes: Soft Genitourinary: Yes: WNL Extremities: Yes: Other (toe gangrene) Edema: No Neurological: Yes: Oriented Psychiatric: Yes: Oriented Labs: CBC, BMP 06/07/18 07:30 06/09/18 06:35 INR, PTT INR 1.09 (0.83-1.09) 06/06/18 06:30 Problem List - Problems (1) ESRD (end stage renal disease) Code(s): N18.6 - END STAGE RENAL DISEASE (2) Gangrene Code(s): I96 - GANGRENE, NOT ELSEWHERE CLASSIFIED (3) PAD (peripheral artery disease) Code(s): I73.9 - PERIPHERAL VASCULAR DISEASE, UNSPECIFIED Assessment/Plan Current Medications Generic Name Dose Route Start Last Admin Trade Name Freq PRN Reason Stop Dose Admin Acetaminophen 650 mg 06/06/18 09:00 06/07/18 21:50 Tylenol - PO 650 mg Q4H PRN Administration PAIN LEVEL 1-5 Aspirin 81 mg 06/06/18 10:00 06/09/18 10:00 Ecotrin - PO Not Given DAILY [facility] Atorvastatin Calcium 20 mg 06/05/18 22:45 06/08/18 22:16 Lipitor - PO 20 mg HS [facility] Administration Calcitriol 0.25 mcg 06/06/18 10:00 06/09/18 10:03 Rocaltrol - PO Not Given DAILY [facility] Clopidogrel Bisulfate 75 mg 06/06/18 10:00 06/09/18 10:01 Plavix - PO Not Given DAILY [facility] Furosemide 40 mg 06/06/18 10:00 06/09/18 10:00 Lasix - PO Not Given DAILY [facility] Hydralazine HCl 100 mg 06/05/18 22:45 06/09/18 06:15 Apresoline - PO 100 mg TID [facility] Administration Piperacillin Sod/Tazobactam 50 mls @ 100 mls/hr 06/06/18 18:00 09/24/18 10:04 Sod 2.25 gm/ Dextrose IVPB Not Given Q8H-IV [facility] Protocol Sodium Chloride 250 mls @ 3,000 mls/hr 06/09/18 09:08 Normal Saline - IV 06/10/18 09:08 PRN PRN Hypotension during Dialysis Insulin Aspart 1 vial 06/06/18 07:00 06/09/18 06:17 Novolog Vial Sliding Scale - SQ Not Given TIDAC [facility] Protocol Morphine Sulfate 2 mg 06/05/18 19:53 06/08/18 15:37 Morphine Sulfate IVPUSH 2 mg Q4H PRN Administration PAIN LEVEL 6-10 Nifedipine 60 mg 06/05/18 22:45 06/09/18 10:02 Procardia Xl - PO Not Given BID [facility] Sevelamer Carbonate 800 mg 06/06/18 08:00 06/09/18 10:00 Renvela - PO Not Given TIDCM [facility] Impression 1. ESRD on HD 2. anemia 3. DM 4. HTN 5. toe infection/gangrene 6. PVD Plan - pt tolerating HD - follow up CTA - podiatry follow up - vascular follow up - monitor BP - avf 3:00 400 abf - epogen 10,000 for anemia
[2018-06-09] MEDS ORDERED: PT OWN MED DRAWER 7, Y5N ONE ×2 (13:35→21:29)
[2018-06-09 13:48] LABS: HEMATOCRIT 25.7 % (35.4-49); HEMOGLOBIN 8.5 GM/dL (11.7-16.9); MCH 33.2 pg (25.7-33.7); MCHC 33.2 g/dl (32.0-35.9); MEAN CELL VOLUME 100.1 fl (80-96); PLATELET COUNT 316 K/MM3 (134-434); RBC 2.57 M/mm3 (4.00-5.60); RDW 16.8 % (11.9-15.9); WHITE BLOOD COUNT 13.7 K/mm3 (4.0-10.0)
--- NOTE | 2018-06-09 13:49 | PN ---
Progress Note (short form) - Note Progress Note: Vascular Surgery CTA reviewed with radiology. Circulation looks patent down to foot. No need for any intervention. Pt cleared from a vascular standpoint for podiatry intervention. Pt to have surgery tonight. Kel Paiz DO Problem List - Problems (1) Gangrene of foot Code(s): I96 - GANGRENE, NOT ELSEWHERE CLASSIFIED (2) PAD (peripheral artery disease) Code(s): I73.9 - PERIPHERAL VASCULAR DISEASE, UNSPECIFIED (3) Diabetic foot infection Code(s): E11.628 - TYPE 2 DIABETES MELLITUS WITH OTHER SKIN COMPLICATIONS; L08.9 - LOCAL INFECTION OF THE SKIN AND SUBCUTANEOUS TISSUE, UNSP
--- NOTE | 2018-06-09 14:34 | PN ---
Teaching Attending Note Name of Resident: Paulo Noriega ATTENDING PHYSICIAN STATEMENT I saw and evaluated the patient. I reviewed the resident's note and discussed the case with the resident. I agree with the resident's findings and plan as documented. SUBJECTIVE: No fever or chills . No CP or SOB. pain in foot improved OBJECTIVE: NAD CV: RRR, 3/6 M at LLSB and to a lesser extent at LUSB . Lungs: CTAB Ext: no edema on legs or arms, scarce hair on legs especially Left. DP 2+ on R and 1+ on L. L 3rd and 4th toes are black .tenderness and dark discoloration over L 2nd toes , and plantar surface of foot at 2,3,4th metatarsal heads. erythema and hyperpigmentation with no tenderness in dorsal foot at level of 3rd and 4th metatarsal heads. worsening edema on dorsal L foot ASSESSMENT AND PLAN: 68 y/o man with h/o CAD, recent [place], PVD, ESRD on HD, HTN, HLP, Hep B , DM, and recent admission for L 4th toe gangrene and OM, s/p angiogram, atherectomy and angioplasty, who presented with increased pain in foot and change in L 3rd toe color. He was found to have a gangrenous 3rd and 4th toes. 1- Gangrenous 3rd and 4th L toes. OM. - vanco and zosyn. - cont ASA and plavix - CTA pending read, but d/w Dr. Chencho reeves: perfusion to feet - statin - for amputation per podiatry. - recommend BP control before any surgical procedure as BP in 200s ( am meds held ) 2- H/o HTN: severe HTN during HD as BP meds were held in am continue his HZN and Nifedipine . recheck BP 3- H/O ESRD: HD per schedule - cont lasix - cont sevelamir HLOC
[2018-06-09] MEDS: MORPHINE SULFATE 2 MG/ML VIAL IVPUSH PRN (17:28)
--- NOTE | 2018-06-09 18:24 | PN ---
Physical Exam: SUBJECTIVE: Patient seen and examined. Pt feeling anxious about having a procedure. No fevers, SOB, chest pain. Was made NPO OBJECTIVE: Vital Signs Period Temp Pulse Resp BP Sys/Cole Pulse Ox Last 24 Hr 97.9 F-98.5 F 58-79 18-20 145-205/59-94 GENERAL: The patient is awake, alert, and fully oriented, in no acute distress. HEAD: Normal with no signs of trauma. EYES: PERRL, extraocular movements intact, sclera anicteric, conjunctiva clear. No ptosis. ENT: oropharynx clear without exudates, moist mucous membranes. LUNGS: Breath sounds equal, clear to auscultation bilaterally, no wheezes, no crackles HEART: Regular rate and rhythm, S1, S2 systolic murmur ABDOMEN: Soft, nontender, nondistended, normoactive bowel sounds EXTREMITIES: 2+ pulses RLE, warm, well-perfused, no edema. 1+LLE, cold gangrenous 3rd and 4th L toes, darkening plantar surface NEUROLOGICAL: Cranial nerves II through XII grossly intact. Normal speech, gait not observed. Laboratory Results - last 24 hr 06/08/18 06/09/18 06/09/18 23:15 06:16 06:35 WBC RBC Hgb Hct MCV MCH MCHC RDW Plt Count MPV Sodium Potassium Chloride Carbon Dioxide Anion Gap BUN Creatinine Creat Clearance w eGFR POC Glucometer 153 146 Random Glucose Calcium Random Vancomycin 24.3 06/09/18 06/09/18 06/09/18 06:35 11:41 13:00 WBC RBC Hgb Hct MCV MCH MCHC RDW Plt Count MPV Sodium 133 L Potassium 4.4 Chloride 96 L Carbon Dioxide 26 Anion Gap 12 BUN 40 H Creatinine 8.9 H* Creat Clearance w eGFR 5.93 POC Glucometer 159 Random Glucose 127 H Calcium 9.5 Random Vancomycin 24.1 18 06/09/18 13:00 16:25 WBC 13.7 H RBC 2.57 L Hgb 8.5 L Hct 25.7 L MCV 100.1 H MCH 33.2 MCHC 33.2 RDW 16.8 H Plt Count 316 MPV 8.0 Sodium Potassium Chloride Carbon Dioxide Anion Gap BUN Creatinine Creat Clearance w eGFR POC Glucometer 146 Random Glucose Calcium Random Vancomycin Active Medications Acetaminophen (Tylenol -) 650 mg PO Q4H PRN PRN Reason: PAIN LEVEL 1-5 Last Admin: 06/07/18 21:50 Dose: 650 mg Aspirin (Ecotrin -) 81 mg PO DAILY [facility] Last Admin: 06/09/18 10:00 Dose: Not Given Atorvastatin Calcium (Lipitor -) 20 mg PO HS [facility] Last Admin: 06/08/18 22:16 Dose: 20 mg Calcitriol (Rocaltrol -) 0.25 mcg PO DAILY [facility] Last Admin: 06/09/18 10:03 Dose: Not Given Clopidogrel Bisulfate (Plavix -) 75 mg PO DAILY [facility] Last Admin: 06/09/18 10:01 Dose: Not Given Furosemide (Lasix -) 40 mg PO DAILY [facility] Last Admin: 06/09/18 10:00 Dose: Not Given Hydralazine HCl (Apresoline -) 100 mg PO TID [facility] Last Admin: 06/09/18 13:41 Dose: 100 mg Piperacillin Sod/Tazobactam (Sod 2.25 gm/ Dextrose) 50 mls @ 100 mls/hr IVPB Q8H-IV [facility]; Protocol Last Admin: 06/09/18 17:29 Dose: 100 mls/hr Sodium Chloride (Normal Saline -) 250 mls @ 3,000 mls/hr IV PRN PRN PRN Reason: Hypotension during Dialysis Stop: 06/10/18 09:08 Insulin Aspart (Novolog Vial Sliding Scale -) 1 vial SQ TIDAC [facility]; Protocol Last Admin: 06/09/18 17:22 Dose: Not Given Morphine Sulfate (Morphine Sulfate) 2 mg IVPUSH Q4H PRN PRN Reason: PAIN LEVEL 6-10 Last Admin: 06/09/18 17:28 Dose: 2 mg Nifedipine (Procardia Xl -) 60 mg PO BID [facility] Last Admin: 06/09/18 13:41 Dose: 60 mg Sevelamer Carbonate (Renvela -) 800 mg PO TIDCM [facility] Last Admin: 06/09/18 17:37 Dose: 800 mg ASSESSMENT/PLAN: 68 y/o M w/ PMHx CAD, [place], PVD, ESRD on HD (MWF), HTN, HLD recently admitted for gangrene/osteomyelitis of the left foot on 05/16 (underwent LLE angioplasty at that time, d/c'd without amputation for wound care, PO ABx/conservative management, osteo of L 2nd and 3 digits per MRI) now presenting with worsening pain and discoloration of the left 4th toe and blackening and pain of the 3rd toe #Gangrene of L 3rd and 4th toes -presented without fever, WBC 11.1, HR 68 -Dr. Paiz consulted: "1. CTA ordered- showing patent vessels , no need for angiogram -ID (Dr. Bishop/Dr. Reyez) consulted: Vanc/Zosyn, intermittent vanco dosing based on vanc level -Podiatry (Dr. Garcia) amputation planed for today but postponed due to severe hypertension (predialysis meds not received) -morphine 2 q 4 PRN for pain #ESRD on HD ([facility]) -Nephro (Dr. Flaherty) consulted -cont home Lasix -cont home Sevelamer #CAD/PVD -cont ASA/Plavix #HTN -cont home nifedipine -cont home hydralazine #anemia -most likely chronic, 2/2 ESRD -EPO #FEN -no fluids -monitor chemistries -diabetic/renal diet #PPx -no heparin at this time per vascular #dispo -med surg For sx tomorrow Visit type - Emergency Visit Emergency Visit: Yes ED Registration Date: 06/05/18 Care time: The patient presented to the Emergency Department on the above date and was hospitalized for further evaluation of their emergent condition. - New Patient This patient is new to me today: No - Critical Care Critical Care patient: No - Discharge Referral Referred to [facility] Med P.C.: No
--- NOTE | 2018-06-09 21:04 | PN ---
Progress Note (short form) - Note Progress Note: Patient seen in bed around 7:15pm. present. Eager to have procedure done. +gangarene complete toes 3&4, +partial gangarene 2nd toe from mpj to pipj laterally, 1st and 5th toe no changes at this time Gangarene PVD Pain Discussed all possible scenarios including post operative course based on all proposed procedures. Amputation of just toes 3&4 Left. Amputation Just toes 2, 3,4 Left. Possible partial transmetarsal amputation salvaging Hallux. Possible transmetarsal involving all toes. Explained in Vietnamese. Then obtained consent using sap gatherer and explained procedure again. Patient fully understood all risks benefits and alternatives. Patient consented to surgery after event decorator explained procedure. present throughout who understands but does speak Liberian well. Nursing staff witnessed consent. Patient is scheduled for 10:30am. Discussed by text patients status with Dr. Paiz clearing patient for intervention as well as reviewing his clearance note.
[2018-06-09] MEDS: ATORVASTATIN CA 20 MG TABLET (FP) PO SCH (22:40)
[2018-06-10] MEDS ORDERED: DEXTROSE 5%-WATER - 50 ML IVPB ONE ×2 (01:23→16:26)
[2018-06-10] MEDS ORDERED: PIPERACILLIN/TAZOBACTAM 2.25 GM VIAL IVPB ONE ×3 (01:23→16:26)
[2018-06-10] MEDS: PIPERACILLIN/TAZOB 2.25 GM 2.25 GM in DEXTROSE 5%-WATER - 50 ML IVPB SCH ×3 (01:33→17:11)
[2018-06-10] MEDS ORDERED: SODIUM CHLORIDE 250 ML IV PRN ×2 (06:37→16:30)
[2018-06-10] MEDS: hydrALAZINE HCL 50 MG TABLET (FP) PO SCH ×3 (06:45→22:20)
[2018-06-10] MEDS: INSULIN SLIDING SCALE (NOVOLOG) 1 VIAL SQ SCH ×3 (06:48→17:11)
[2018-06-10 07:37] LABS: BASO % 0.5 % (0-2.0); EOS % 0.9 % (0-4.5); HEMATOCRIT 29.9 % (35.4-49); HEMOGLOBIN 9.8 GM/dL (11.7-16.9); LYMPH % 7.4 % (8-40); MCH 32.9 pg (25.7-33.7); MCHC 32.8 g/dl (32.0-35.9); MEAN CELL VOLUME 100.3 fl (80-96); MONO % 7.7 % (3.8-10.2); NEUT % 83.5 % (42.8-82.8); PLATELET COUNT 355 K/MM3 (134-434); RBC 2.98 M/mm3 (4.00-5.60); WHITE BLOOD COUNT 15.7 K/mm3 (4.0-10.0)
[2018-06-10 08:12] LABS: ALBUMIN 2.9 g/dl (3.4-5.0); ALK PHOS 282 U/L (45-117); ANION GAP 16 MMOL/L (8-16); BILIRUBIN,TOTAL 0.8 mg/dL (0.2-1); BLOOD UREA NITROGEN 20 mg/dL (7-18); CALCIUM 10.2 mg/dL (8.5-10.1); CHLORIDE 96 mmol/L (98-107); CO2 25 mmol/L (21-32); GLUCOSE,RANDOM 107 mg/dL (74-106); MAGNESIUM 2.3 mg/dL (1.8-2.4); PHOSPHOROUS 4.4 mg/dL (2.5-4.9); POTASSIUM 3.8 mmol/L (3.5-5.1); SGOT/AST 20 U/L (15-37); SGPT/ALT 13 U/L (13-61); SODIUM 137 mmol/L (136-145); TOT PROT 8.5 g/dl (6.4-8.2)
[2018-06-10] MEDS: SEVELAMER CARBONATE 800 MG TAB (FP) PO SCH ×3 (09:23→16:50)
[2018-06-10] MEDS: NIFEdipine E.R 60 MG TABLET (UD) PO SCH ×2 (09:27→22:21)
[2018-06-10] MEDS: CALCITRIOL 0.25 MCG CAPSULE (FP) PO SCH (09:27)
[2018-06-10] MEDS: ASPIRIN COATED 81 MG TABLET.EC PO SCH (09:28)
[2018-06-10] MEDS: FUROSEMIDE 40 MG TABLET (FP) PO SCH (09:28)
[2018-06-10] MEDS: CLOPIDOGREL BISULFATE 75 MG TABLET (FP) PO SCH (09:28)
--- NOTE | 2018-06-10 10:56 | EKG ---
Test Reason : Blood Pressure : / mmHG Vent. Rate : 067 BPM Atrial Rate : 067 BPM P-R Int : 172 ms QRS Dur : 106 ms QT Int : 428 ms P-R-T Axes : 062 008 143 degrees QTc Int : 452 ms NORMAL SINUS RHYTHM NONSPECIFIC T WAVE ABNORMALITY ABNORMAL ECG Confirmed by MD MARSHALL, JOAQUÍN ([id number]) on 06/10/2018 10:55:46 AM Referred By: JAMAL OVIEDO Confirmed By:JOAQUÍN OLIVARES MD
[2018-06-10] MEDS: MORPHINE SULFATE 2 MG/ML VIAL IVPUSH PRN ×2 (11:36→15:26)
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
--- NOTE | 2018-06-10 15:01 | PN ---
Progress Note (short form) - Note Progress Note: Patient seen in bed with daughter present. Eager to have procedure done. Upset that not being done today due to cardiac clearance. +gangarene complete toes 3&4, +partial gangarene 2nd toe from mpj to pipj laterally, 1st and 5th toe no changes at this time Gangarene PVD Pain Daughter present, Shaila. Explained that case was cancelled for today and rescheduled for tomorrow 1pm. Patient and daughter understood and agreed to procedure as planned. Amputation of just toes 3&4 Left. Amputation Just toes 2,3,4 Left. Possible partial transmetarsal amputation salvaging Hallux. Possible transmetarsal involving all toes. Cardiac clearance in place. Will intervene tomorrow and proceed with planned procedure.
--- NOTE | 2018-06-10 16:29 | PN ---
Progress Note, Physician History of Present Illness: Pt seen and examined at bedside. He is awake and alert. He denies shortness of breath. - Current Medication List Current Medications: Active Medications Acetaminophen (Tylenol -) 650 mg PO Q4H PRN PRN Reason: PAIN LEVEL 1-5 Last Admin: 06/07/18 21:50 Dose: 650 mg Aspirin (Ecotrin -) 81 mg PO DAILY [facility] Last Admin: 06/10/18 09:28 Dose: 81 mg Atorvastatin Calcium (Lipitor -) 40 mg PO HS [facility] Calcitriol (Rocaltrol -) 0.25 mcg PO DAILY [facility] Last Admin: 06/10/18 09:27 Dose: 0.25 mcg Clopidogrel Bisulfate (Plavix -) 75 mg PO DAILY [facility] Last Admin: 06/10/18 09:28 Dose: 75 mg Furosemide (Lasix -) 40 mg PO DAILY [facility] Last Admin: 06/10/18 09:28 Dose: 40 mg Hydralazine HCl (Apresoline -) 100 mg PO TID [facility] Last Admin: 06/10/18 14:23 Dose: 100 mg Piperacillin Sod/Tazobactam (Sod 2.25 gm/ Dextrose) 50 mls @ 100 mls/hr IVPB Q8H-IV [facility]; Protocol Last Admin: 06/10/18 09:27 Dose: 100 mls/hr Insulin Aspart (Novolog Vial Sliding Scale -) 1 vial SQ TIDAC [facility]; Protocol Last Admin: 06/10/18 11:04 Dose: Not Given Morphine Sulfate (Morphine Sulfate) 2 mg IVPUSH Q4H PRN PRN Reason: PAIN LEVEL 6-10 Last Admin: 06/10/18 15:26 Dose: 2 mg Nifedipine (Procardia Xl -) 60 mg PO BID [facility] Last Admin: 06/10/18 09:27 Dose: 60 mg Sevelamer Carbonate (Renvela -) 800 mg PO TIDCM [facility] Last Admin: 06/10/18 12:29 Dose: 800 mg - Objective Vital Signs: Vital Signs Temperature 98.2 F 06/10/18 13:59 Pulse Rate 64 06/10/18 13:59 Respiratory Rate 20 06/10/18 06:00 Blood Pressure 153/62 06/10/18 13:59 O2 Sat by Pulse Oximetry (%) 95 06/07/18 21:00 Constitutional: Yes: Calm Eyes: Yes: Conjunctiva Clear HENT: Yes: Atraumatic Neck: Yes: Supple Cardiovascular: Yes: S1, S2 Respiratory: Yes: CTA Bilaterally Gastrointestinal: Yes: Soft Genitourinary: Yes: WNL Extremities: Yes: Other (3rd and 4th toe gangrene) Edema: No Neurological: Yes: Oriented Psychiatric: Yes: Oriented Labs: CBC, BMP 06/10/18 06:30 06/10/18 06:30 INR, PTT INR 1.09 (0.83-1.09) 06/06/18 06:30 Problem List - Problems (1) ESRD (end stage renal disease) Code(s): N18.6 - END STAGE RENAL DISEASE (2) Gangrene Code(s): I96 - GANGRENE, NOT ELSEWHERE CLASSIFIED (3) PAD (peripheral artery disease) Code(s): I73.9 - PERIPHERAL VASCULAR DISEASE, UNSPECIFIED Assessment/Plan Current Medications Generic Name Dose Route Start Last Admin Trade Name Freq PRN Reason Stop Dose Admin Acetaminophen 650 mg 06/06/18 09:00 06/07/18 21:50 Tylenol - PO 650 mg Q4H PRN Administration PAIN LEVEL 1-5 Aspirin 81 mg 06/06/18 10:00 06/10/18 09:28 Ecotrin - PO 81 mg DAILY CHUCKY Administration Atorvastatin Calcium 40 mg 06/10/18 22:00 Lipitor - PO HS CHUCKY Calcitriol 0.25 mcg 06/06/18 10:00 06/10/18 09:27 Rocaltrol - PO 0.25 mcg DAILY CHUCKY Administration Clopidogrel Bisulfate 75 mg 06/06/18 10:00 06/10/18 09:28 Plavix - PO 75 mg DAILY CHUCKY Administration Furosemide 40 mg 06/06/18 10:00 06/10/18 09:28 Lasix - PO 40 mg DAILY CHUCKY Administration Hydralazine HCl 100 mg 06/05/18 22:45 06/10/18 14:23 Apresoline - PO 100 mg TID CHUCKY Administration Piperacillin Sod/Tazobactam 50 mls @ 100 mls/hr 06/06/18 18:00 06/10/18 09:27 Sod 2.25 gm/ Dextrose IVPB 100 mls/hr Q8H-IV CHUCKY Administration Protocol Insulin Aspart 1 vial 06/06/18 07:00 06/10/18 11:04 Novolog Vial Sliding Scale - SQ Not Given TIDAC [facility] Protocol Morphine Sulfate 2 mg 06/05/18 19:53 06/10/18 15:26 Morphine Sulfate IVPUSH 2 mg Q4H PRN Administration PAIN LEVEL 6-10 Nifedipine 60 mg 06/05/18 22:45 06/10/18 09:27 Procardia Xl - PO 60 mg BID CHUCKY Administration Sevelamer Carbonate 800 mg 06/06/18 08:00 06/10/18 12:29 Renvela - PO 800 mg TIDCM CHUCKY Administration Impression 1. ESRD on HD 2. anemia 3. DM 4. HTN 5. toe infection/gangrene 6. PVD Plan - HD in am - pt going for surgery tomorrow - podiatry follow up - vascular follow up - monitor BP - avf 3:00 400 abf - epogen 10,000 for anemia
--- NOTE | 2018-06-10 16:43 | PN ---
Teaching Attending Note Name of Resident: Linda Agrawal ATTENDING PHYSICIAN STATEMENT I saw and evaluated the patient. I reviewed the resident's note and discussed the case with the resident. I agree with the resident's findings and plan as documented. SUBJECTIVE: pain in foot. no SOB or CP OBJECTIVE: NAD CV: RRR, 3/6 M at LLSB and to a lesser extent at LUSB . Lungs: CTAB Ext: no edema on legs or arms, scarce hair on legs especially Left. DP 2+ on R and 1+ on L. L 3rd and 4th toes are black .tenderness over L 2nd and big toes. no TTP over 3rd and 4th toes , TTP plantar surface of foot at 2,3,4th metatarsal heads. erythema and hyperpigmentation with no tenderness in dorsal foot at level of 3rd and 4th metatarsal heads. DP 2+ R, 1+ L ASSESSMENT AND PLAN: 68 y/o man with h/o CAD, recent [place], PVD, ESRD on HD, HTN, HLP, Hep B , DM, and recent admission for L 4th toe gangrene and OM, s/p angiogram, atherectomy and angioplasty, who presented with increased pain in foot and change in L 3rd toe color. He was found to have a gangrenous 3rd and 4th toes. 1- Gangrenous 3rd and 4th L toes. OM. - vanco and zosyn. vanco level noted - cont ASA and plavix - statin -EKG done today and showed new TWI in lateral leads. surgery was canceled and card was invited. stress and echo form earlier this month were reviewed. case was d/w Dr. Wilkins and no intervention was deemed necessary before sx 2- H/o HTN: continue his HZN and Nifedipine . 3- H/O ESRD: HD per schedule - cont lasix - cont sevelamir HLOC d/w patient and his family
--- NOTE | 2018-06-10 20:25 | PN ---
Physical Exam: SUBJECTIVE: Patient seen and examined this morning at bedside. Continues to complain of foot pain. OBJECTIVE: Vital Signs Period Temp Pulse Resp BP Sys/Cole Pulse Ox Last 24 Hr 98.2 F-98.5 F 64-72 17-20 140-153/55-74 GENERAL: The patient is awake, alert, and fully oriented, in no acute distress. HEAD: NCAT EYES: PERRL, EOMI ENT: oropharynx clear without exudates, MMM NECK: supple, No JVD LUNGS: Breath sounds equal, clear to auscultation bilaterally, no wheezes HEART: Regular rate and rhythm, S1, S2, Systolic murmur at the LLSB ABDOMEN: Soft, nontender, nondistended, normoactive bowel sounds, no guarding EXTREMITIES: RLE--2+ pulses, no edema. LLE--1+ pulses, No edema, Toes 3 and 4 are cold, blackened gangrenous and nontender. Pain and tenderness now extends over the 2nd and 1st Left toes. Tender to palpation of the 2,3,4 toe metatarsal heads with Erythema. NEUROLOGICAL: Cranial nerves II through XII grossly intact. Normal speech, gait not observed. Laboratory Results - last 24 hr 06/10/18 06/10/18 06/10/18 06:30 06:30 06:30 WBC 15.7 H RBC 2.98 L Hgb 9.8 L Hct 29.9 L D MCV 100.3 H MCH 32.9 MCHC 32.8 RDW 17.0 H Plt Count 355 MPV 8.0 Absolute Neuts (auto) 13.1 H Neutrophils % 83.5 H Lymphocytes % 7.4 L Monocytes % 7.7 Eosinophils % 0.9 Basophils % 0.5 Nucleated RBC % 0 Sodium 137 Potassium 3.8 Chloride 96 L Carbon Dioxide 25 Anion Gap 16 BUN 20 H Creatinine 6.0 H Creat Clearance w eGFR 9.34 POC Glucometer Random Glucose 107 H Calcium 10.2 H Phosphorus 4.4 Magnesium 2.3 Total Bilirubin 0.8 AST 20 ALT 13 Alkaline Phosphatase 282 H Total Protein 8.5 H Albumin 2.9 L Random Vancomycin 16.6 L 06/10/18 06/10/18 06/10/18 06:46 10:41 17:10 WBC RBC Hgb Hct MCV MCH MCHC RDW Plt Count MPV Absolute Neuts (auto) Neutrophils % Lymphocytes % Monocytes % Eosinophils % Basophils % Nucleated RBC % Sodium Potassium Chloride Carbon Dioxide Anion Gap BUN Creatinine Creat Clearance w eGFR POC Glucometer 110 112 117 Random Glucose Calcium Phosphorus Magnesium Total Bilirubin AST ALT Alkaline Phosphatase Total Protein Albumin Random Vancomycin Microbiology 06/05/18 11:10 Blood - Peripheral Venous Blood Culture - Final NO GROWTH AFTER 5 DAYS INCUBATION 06/05/18 11:10 Blood - Peripheral Venous Blood Culture - Final NO GROWTH AFTER 5 DAYS INCUBATION Active Medications Acetaminophen (Tylenol -) 650 mg PO Q4H PRN PRN Reason: PAIN LEVEL 1-5 Last Admin: 06/07/18 21:50 Dose: 650 mg Aspirin (Ecotrin -) 81 mg PO DAILY [facility] Last Admin: 06/10/18 09:28 Dose: 81 mg Atorvastatin Calcium (Lipitor -) 40 mg PO HS [facility] Calcitriol (Rocaltrol -) 0.25 mcg PO DAILY [facility] Last Admin: 06/10/18 09:27 Dose: 0.25 mcg Clopidogrel Bisulfate (Plavix -) 75 mg PO DAILY [facility] Last Admin: 06/10/18 09:28 Dose: 75 mg Epoetin Thomas (Epogen -) 10,000 unit IVPUSH ONCE ONE Stop: 06/11/18 16:31 Furosemide (Lasix -) 40 mg PO DAILY [facility] Last Admin: 06/10/18 09:28 Dose: 40 mg Hydralazine HCl (Apresoline -) 100 mg PO TID [facility] Last Admin: 06/10/18 14:23 Dose: 100 mg Piperacillin Sod/Tazobactam (Sod 2.25 gm/ Dextrose) 50 mls @ 100 mls/hr IVPB Q8H-IV [facility]; Protocol Last Admin: 06/10/18 17:11 Dose: 100 mls/hr Sodium Chloride (Normal Saline -) 250 mls @ 3,000 mls/hr IV PRN PRN PRN Reason: Hypotension during Dialysis Stop: 06/11/18 16:30 Insulin Aspart (Novolog Vial Sliding Scale -) 1 vial SQ TIDAC [facility]; Protocol Last Admin: 06/10/18 17:11 Dose: Not Given Morphine Sulfate (Morphine Sulfate) 2 mg IVPUSH Q4H PRN PRN Reason: PAIN LEVEL 6-10 Last Admin: 06/10/18 15:26 Dose: 2 mg Nifedipine (Procardia Xl -) 60 mg PO BID [facility] Last Admin: 06/10/18 09:27 Dose: 60 mg Sevelamer Carbonate (Renvela -) 800 mg PO TIDCM [facility] Last Admin: 06/10/18 16:50 Dose: 800 mg IMAGING: EKG: NORMAL SINUS RHYTHM, NONSPECIFIC T WAVE ABNORMALITY Left Foot XRay: No fracture or osteomyelitis. CT ANGIOGRAM OF THE ABDOMEN AND PELVIS WITH BILATERAL LOWER EXTREMITY RUNOFFS: Predominant distal arterial disease suggestive of diabetic and/or nephrogenic vasculopathy. Predominant disease in the distal left popliteal and infrapopliteal arteries demonstrating interval improvement in flow and mild improvement in the degree of stenosis described on the prior exam, as described above. Essential flow to the foot is provided by the MIGUELITO. Peroneal artery is occluded and [employer] demonstrate short segmental occlusions with reconstitution of flow in the plantar artery which demonstrate robust flow. Flow is seen in the digital arteries. Predominant right infrapopliteal disease, as described above, grossly unchanged since the prior exam. Subcutaneous edema with mesenteric stranding possibly due to third spacing/anasarca. Under distended urinary bladder with suggestion of wall thickening. Correlate clinically for cystitis. ASSESSMENT/PLAN: 68 y/o M w/ PMHx CAD, [place], PVD, ESRD on HD (MWF), HTN, admitted for gangrene/ osteomyelitis of the left foot on 05/16, now presents with worsening pain and discoloration of the left 4th toe and blackening and pain of the 3rd toe 1. Gangrene of L 3rd and 4th toes -Remains AFebrile -WBC 11.1 --> 15.7 -CTA noted as above -EKG done (06/10) revealed new T-wave inversions in lateral leads, Notified podiatry as procedure for today was now cancelled for cardiac consult, case discussed with Dr. Wilkins--Pt is cleared to undergo LE surgery for gangrenous toes. -Dr. Paiz consulted: Pt cleared from a vascular standpoint for podiatry intervention. -ID (Dr. Reyez) consulted: Vanc/Zosyn (Started on 06/05), intermittent vanco dosing based on vanc level -Podiatry (Dr. Garcia) consulted: Amputation Rescheduled for tomorrow 1pm. Amputation Just toes 2,3,4 Left. Possible partial transmetarsal amputation salvaging Hallux. Possible transmetarsal involving all toes. -Morphine 2mg q 4 PRN for pain 2. ESRD on HD ([facility]) -Nephro (Dr. Flaherty) consulted-- HD in am, monitor BP, epogen 10,000 for anemia -cont home Lasix, Sevelamer 3. CAD/PVD -cont ASA/Plavix 4. HTN -cont home nifedipine, hydralazine 5. anemia -likely of chronic disease 2/2 ESRD -epogen 10,000 6.FEN -PO FLuids -Continue to monitor lytes -NPO after midnight 7. PPx -no heparin at this time per vascular #dispo -med surg, For sx tomorrow at 1pm Visit type - Emergency Visit Emergency Visit: Yes ED Registration Date: 06/05/18 Care time: The patient presented to the Emergency Department on the above date and was hospitalized for further evaluation of their emergent condition. - New Patient This patient is new to me today: Yes Date on this admission: 06/10/18 - Critical Care Critical Care patient: No
[2018-06-10] MEDS ORDERED: ATORVASTATIN CA 40 MG TABLET (FP) PO SCH (22:00)
[2018-06-10] MEDS: ACETAMINOPHEN 325 MG TABLET (FP) PO PRN (22:20)
[2018-06-11] MEDS ORDERED: DEXTROSE 5%-WATER - 50 ML IVPB ONE ×3 (01:17→17:15)
[2018-06-11] MEDS ORDERED: PIPERACILLIN/TAZOBACTAM 2.25 GM VIAL IVPB ONE ×3 (01:17→17:15)
[2018-06-11] MEDS: PIPERACILLIN/TAZOB 2.25 GM 2.25 GM in DEXTROSE 5%-WATER - 50 ML IVPB SCH ×3 (01:20→17:34)
[2018-06-11] MEDS: MORPHINE SULFATE 2 MG/ML VIAL IVPUSH PRN ×3 (01:20→22:45)
[2018-06-11] MEDS: hydrALAZINE HCL 50 MG TABLET (FP) PO SCH ×2 (06:37→22:03)
[2018-06-11] MEDS: INSULIN SLIDING SCALE (NOVOLOG) 1 VIAL SQ SCH ×3 (06:40→16:51)
[2018-06-11] MEDS: SEVELAMER CARBONATE 800 MG TAB (FP) PO SCH ×3 (08:00→17:34)
--- NOTE | 2018-06-11 08:31 | PN ---
Physical Exam: SUBJECTIVE: Patient seen and examined this morning. Scheduled for OR today in the afternoon. Received Morphin x1 for 6/10 foot pain, had 1 BM overnight. Denies fevers, chills, chest pain, SOB, nausea, vomiting. OBJECTIVE: Vital Signs Period Temp Pulse Resp BP Sys/Cole Pulse Ox Last 24 Hr 97.8 F-99.7 F 60-71 17-20 140-153/55-65 GENERAL: The patient is awake, alert, and fully oriented, in no acute distress. HEAD: NCAT EYES: PERRL, EOMI ENT: oropharynx clear without exudates, MMM NECK: supple, No JVD LUNGS: Breath sounds equal, clear to auscultation bilaterally, no wheezes HEART: Regular rate and rhythm, S1, S2, Systolic murmur at the LLSB ABDOMEN: Soft, nontender, nondistended, normoactive bowel sounds, no guarding EXTREMITIES: RLE--2+ pulses, no edema. LLE--1+ pulses, No edema, Toes 3 and 4 are blackened, gangrenous and nontender. Tenderness to palpation of the 2,3,4 toe metatarsal heads with Erythema over the dorsum of the foot. NEUROLOGICAL: Cranial nerves II through XII grossly intact. Normal speech, gait not observed. Laboratory Results - last 24 hr 06/10/18 06/10/18 06/10/18 06:30 10:41 17:10 POC Glucometer 112 117 Random Vancomycin 16.6 L 06/10/1818 22:23 06:39 POC Glucometer 149 122 Random Vancomycin Microbiology 06/05/18 11:10 Blood - Peripheral Venous Blood Culture - Final NO GROWTH AFTER 5 DAYS INCUBATION 06/05/18 11:10 Blood - Peripheral Venous Blood Culture - Final NO GROWTH AFTER 5 DAYS INCUBATION Active Medications Acetaminophen (Tylenol -) 650 mg PO Q4H PRN PRN Reason: PAIN LEVEL 1-5 Last Admin: 06/10/18 22:20 Dose: 650 mg Aspirin (Ecotrin -) 81 mg PO DAILY [facility] Last Admin: 06/10/18 09:28 Dose: 81 mg Atorvastatin Calcium (Lipitor -) 40 mg PO HS [facility] Last Admin: 06/10/18 22:20 Dose: 40 mg Calcitriol (Rocaltrol -) 0.25 mcg PO DAILY [facility] Last Admin: 06/10/18 09:27 Dose: 0.25 mcg Clopidogrel Bisulfate (Plavix -) 75 mg PO DAILY [facility] Last Admin: 06/10/18 09:28 Dose: 75 mg Epoetin Thomas (Procrit -) 10,000 unit IVPUSH ONCE ONE Stop: 06/11/18 09:01 Last Admin: 06/11/18 08:16 Dose: 10,000 unit Furosemide (Lasix -) 40 mg PO DAILY [facility] Last Admin: 06/10/18 09:28 Dose: 40 mg Hydralazine HCl (Apresoline -) 100 mg PO TID [facility] Last Admin: 06/11/18 06:37 Dose: 100 mg Piperacillin Sod/Tazobactam (Sod 2.25 gm/ Dextrose) 50 mls @ 100 mls/hr IVPB Q8H-IV [facility]; Protocol Last Admin: 06/11/18 01:20 Dose: 100 mls/hr Sodium Chloride (Normal Saline -) 250 mls @ 3,000 mls/hr IV PRN PRN PRN Reason: Hypotension during Dialysis Stop: 06/12/18 06:36 Insulin Aspart (Novolog Vial Sliding Scale -) 1 vial SQ TIDAC [facility]; Protocol Last Admin: 06/11/18 06:40 Dose: Not Given Morphine Sulfate (Morphine Sulfate) 2 mg IVPUSH Q4H PRN PRN Reason: PAIN LEVEL 6-10 Last Admin: 06/11/18 01:20 Dose: 2 mg Nifedipine (Procardia Xl -) 60 mg PO BID [facility] Last Admin: 06/10/18 22:21 Dose: 60 mg Sevelamer Carbonate (Renvela -) 800 mg PO TIDCM [facility] Last Admin: 06/10/18 16:50 Dose: 800 mg IMAGING: EKG: NORMAL SINUS RHYTHM, NONSPECIFIC T WAVE ABNORMALITY Left Foot XRay: No fracture or osteomyelitis. CT ANGIOGRAM OF THE ABDOMEN AND PELVIS WITH BILATERAL LOWER EXTREMITY RUNOFFS: Predominant distal arterial disease suggestive of diabetic and/or nephrogenic vasculopathy. Predominant disease in the distal left popliteal and infrapopliteal arteries demonstrating interval improvement in flow and mild improvement in the degree of stenosis described on the prior exam, as described above. Essential flow to the foot is provided by the MIGUELITO. Peroneal artery is occluded and MEDICINE MAN demonstrate short segmental occlusions with reconstitution of flow in the plantar artery which demonstrate robust flow. Flow is seen in the digital arteries. Predominant right infrapopliteal disease, as described above, grossly unchanged since the prior exam. Subcutaneous edema with mesenteric stranding possibly due to third spacing/anasarca. Under distended urinary bladder with suggestion of wall thickening. Correlate clinically for cystitis. ASSESSMENT/PLAN: 68 y/o M w/ PMHx CAD, VA, PVD, ESRD on HD (MWF), HTN, admitted for gangrene/ osteomyelitis of the left foot on 05/16, now presents with worsening pain and discoloration of the left 4th toe and blackening and pain of the 3rd toe 1. Gangrene of L 3rd and 4th toes -Remains AFebrile -WBC 11.1 --> 15.7 -CTA noted as above -EKG done (06/10) revealed new T-wave inversions in lateral leads, Notified podiatry as procedure for today was now cancelled for cardiac consult, case discussed with Dr. Wilkins--Pt is cleared to undergo LE surgery for gangrenous toes. -Dr. Paiz consulted: Pt cleared from a vascular standpoint for podiatry intervention. -ID (Dr. Reyez) consulted: Vanc/Zosyn (Started on 06/05), intermittent vanco dosing based on vanc level -Podiatry (Dr. Garcia) consulted: Amputation today at 1pm, will follow rec's -Morphine 2mg q 4 PRN for pain 2. ESRD on HD ([place]) -Nephro (Dr. Flaherty) consulted-- renal diet after surgery, monitor BP -cont home Lasix, Sevelamer 3. CAD/PVD -cont ASA/Plavix 4. HTN -cont home nifedipine, hydralazine 5. anemia -likely of chronic disease 2/2 ESRD -epogen 10,000 6.FEN -PO Fluids -Continue to monitor lytes -NPO after midnight 7. PPx -no heparin at this time per vascular Dispo -med surg, sx today at 1pm, will follow surgery rec's Visit type - Emergency Visit Emergency Visit: Yes ED Registration Date: 06/05/18 Care time: The patient presented to the Emergency Department on the above date and was hospitalized for further evaluation of their emergent condition. - New Patient This patient is new to me today: No - Critical Care Critical Care patient: No
[2018-06-11] MEDS ORDERED: EPOETIN ALFA 10,000 UNIT/1 ML VIAL IVPUSH ONE (09:00)
[2018-06-11] MEDS: CALCITRIOL 0.25 MCG CAPSULE (FP) PO SCH (10:00)
[2018-06-11] MEDS: ASPIRIN COATED 81 MG TABLET.EC PO SCH (10:00)
--- NOTE | 2018-06-11 10:12 | PN ---
Progress Note, Physician History of Present Illness: This is a 68 year-old male (miranda Guaman), with HTN, NIDDM, ESRD on HD (M,W,F), CAD (s/p "infarct" about one year ago--treated at [facility]; never had coronary angiogram), diastolic CHF, and peripheral arterial disease/known left 4th toe osteomyelitis and gangrene, [facility], who presents with worsening, "stabbing", intermittent pain since last night. He notes that his left 4th toe is darker and his 3rd toe is black, which is completely new according to both him and his . He denies fevers/chills or any other symptoms. - Current Medication List Current Medications: Active Medications Acetaminophen (Tylenol -) 650 mg PO Q4H PRN PRN Reason: PAIN LEVEL 1-5 Last Admin: 06/10/18 22:20 Dose: 650 mg Aspirin (Ecotrin -) 81 mg PO DAILY [facility] Last Admin: 06/10/18 09:28 Dose: 81 mg Atorvastatin Calcium (Lipitor -) 40 mg PO HS [facility] Last Admin: 06/10/18 22:20 Dose: 40 mg Calcitriol (Rocaltrol -) 0.25 mcg PO DAILY [facility] Last Admin: 06/10/18 09:27 Dose: 0.25 mcg Clopidogrel Bisulfate (Plavix -) 75 mg PO DAILY [facility] Last Admin: 06/10/18 09:28 Dose: 75 mg Furosemide (Lasix -) 40 mg PO DAILY [facility] Last Admin: 06/10/18 09:28 Dose: 40 mg Hydralazine HCl (Apresoline -) 100 mg PO TID [facility] Last Admin: 06/11/18 06:37 Dose: 100 mg Piperacillin Sod/Tazobactam (Sod 2.25 gm/ Dextrose) 50 mls @ 100 mls/hr IVPB Q8H-IV [facility]; Protocol Last Admin: 06/11/18 01:20 Dose: 100 mls/hr Sodium Chloride (Normal Saline -) 250 mls @ 3,000 mls/hr IV PRN PRN PRN Reason: Hypotension during Dialysis Stop: 06/12/18 06:36 Insulin Aspart (Novolog Vial Sliding Scale -) 1 vial SQ TIDAC [facility]; Protocol Last Admin: 06/11/18 06:40 Dose: Not Given Morphine Sulfate (Morphine Sulfate) 2 mg IVPUSH Q4H PRN PRN Reason: PAIN LEVEL 6-10 Last Admin: 06/11/18 01:20 Dose: 2 mg Nifedipine (Procardia Xl -) 60 mg PO BID [facility] Last Admin: 06/10/18 22:21 Dose: 60 mg Sevelamer Carbonate (Renvela -) 800 mg PO TIDCM [facility] Last Admin: 06/10/18 16:50 Dose: 800 mg - Objective Vital Signs: Vital Signs Temperature 97.8 F 06/11/18 07:05 Pulse Rate 70 06/11/18 09:40 Respiratory Rate 18 06/11/18 09:40 Blood Pressure 180/78 H 06/11/18 09:40 O2 Sat by Pulse Oximetry (%) 95 06/07/18 21:00 Eyes: Yes: WNL, Conjunctiva Clear, EOM Intact HENT: Yes: WNL, Atraumatic, Normocephalic Neck: Yes: WNL, Supple, Trachea Midline Cardiovascular: Yes: WNL, Regular Rate and Rhythm Respiratory: Yes: WNL, Regular, CTA Bilaterally Gastrointestinal: Yes: WNL, Normal Bowel Sounds Genitourinary: Yes: WNL Musculoskeletal: Yes: WNL Extremities: Yes: Other (toe gangrene) Edema: No Integumentary: Yes: WNL Neurological: Yes: WNL, Alert, Oriented ...Motor Strength: WNL Psychiatric: Yes: WNL Labs: CBC, BMP 06/10/18 06:30 06/10/18 06:30 INR, PTT INR 1.09 (0.83-1.09) 06/06/18 06:30 Assessment/Plan Echo: Report Reviewed (05/2018: normal LVEF;) Ejection Fraction %: LVEF > or = 40 % Imaging - Results EKG: Image Reviewed (NSR; nonspecific T wave changes) Problem List - Problems (1) Anemia Code(s): D64.9 - ANEMIA, UNSPECIFIED (2) ESRD (end stage renal disease) Assessment/Plan: on hemodialysis 3x/week Code(s): N18.6 - END STAGE RENAL DISEASE (3) PAD (peripheral artery disease) Code(s): I73.9 - PERIPHERAL VASCULAR DISEASE, UNSPECIFIED (4) AV fistula Code(s): I77.0 - ARTERIOVENOUS FISTULA, ACQUIRED (5) Diabetes Code(s): E11.9 - TYPE 2 DIABETES MELLITUS WITHOUT COMPLICATIONS Qualifiers: Diabetes mellitus type: type 2 Diabetes mellitus retirement insulin use: without computer terminal operator use Diabetes mellitus complication detail: with chronic kidney disease Chronic kidney disease stage: stage 5, not on chronic dialysis (6) Diastolic CHF Code(s): I50.30 - UNSPECIFIED DIASTOLIC (CONGESTIVE) HEART FAILURE (7) [place] cardiac risk >20% in next 10 years Assessment/Plan: The importance of aggressive risk-factor control was discussed in detail with pt and his daughter. Strong family hx DM. Pt is a candidate for cardiac rehabilitation (OR in the past year; mild ischemia on recent stress MIBI). Lower LDL even further with increase statin dose, diet, exercise. Code(s): Z91.89 - OTH PERSONAL RISK FACTORS, NOT ELSEWHERE CLASSIFIED (8) Hypertension Code(s): I10 - ESSENTIAL (PRIMARY) HYPERTENSION Qualifiers: (9) Pre-operative cardiovascular examination Assessment/Plan: Until a month ago, when left leg discomfort at site of gangrene radiated throughout leg and made walking painful, he had been walking a few blocks and taking stairs almost daily without chest pain or dyspnea. Reportedly had "small infarct" a year ago (treated at [facility];s; denies having had to undergo coronary angiogram). Stress MIBI 05/2018: small area of mildly intense periinfarct inferoapical ischemia. ECHO 05/2018: normal LVEF; moderate TR; mild-moderate MT. EKG: NSR; nonspecific T wave abnormalities (EKG without significant change from prior EKGs as far back as 2017). From a cardiac perspecitve, pt is cleared to undergo LE surgery for gangrenous toes. Code(s): Z01.810 - ENCOUNTER FOR PREPROCEDURAL CARDIOVASCULAR EXAMINATION
[2018-06-11] MEDS: FUROSEMIDE 40 MG TABLET (FP) PO SCH (11:13)
[2018-06-11] MEDS: CLOPIDOGREL BISULFATE 75 MG TABLET (FP) PO SCH (11:16)
[2018-06-11] MEDS ORDERED: PT OWN MED DRAWER 7, Y5N ONE ×2 (11:23→21:34)
[2018-06-11] MEDS: NIFEdipine E.R 60 MG TABLET (UD) PO SCH ×2 (11:27→22:04)
[2018-06-11] MEDS ORDERED: BUPIVACAINE HCL/PF 0.5% (5MG/ML) 10 ML VIAL ONE ×2 (13:47→14:03)
[2018-06-11] MEDS ORDERED: LIDOCAINE HCL/PF 1% SDV 5ML VIAL ONE ×2 (13:47→14:03)
[2018-06-11] MEDS ORDERED: LIDOCAINE HCL 1% PRESERVATIVE FREE - 30ML VIAL IJ ONE (13:54)
[2018-06-11] MEDS ORDERED: MIDAZOLAM HCL 2 MG/2 ML SINGLE DOSE VIAL ONE (13:54)
[2018-06-11] MEDS ORDERED: BUPIVACAINE HCL/PF 0.5% (5MG/ML) 10 ML VIAL IJ ONE (13:54)
[2018-06-11] MEDS ORDERED: SODIUM CHLORIDE 250 ML IV PRN (14:53)
--- NOTE | 2018-06-11 15:46 | PN ---
Teaching Attending Note Name of Resident: Linda Agrawal ATTENDING PHYSICIAN STATEMENT I saw and evaluated the patient. I reviewed the resident's note and discussed the case with the resident. I agree with the resident's findings and plan as documented. SUBJECTIVE: Patient is comfortable with no acute distress. going to OR today OBJECTIVE: Vital Signs Temperature 98.9 F 06/11/18 14:39 Pulse Rate 70 06/11/18 14:39 Respiratory Rate 20 06/11/18 14:39 Blood Pressure 91/75 06/11/18 14:39 O2 Sat by Pulse Oximetry (%) 100 06/11/18 14:39 GENERAL: The patient is awake, alert, and fully oriented, in no acute distress. HEAD: NCAT EYES: PERRL, EOMI ENT: oropharynx clear without exudates, MMM NECK: supple, No JVD LUNGS: Breath sounds equal, clear to auscultation bilaterally, no wheezes HEART: Regular rate and rhythm, S1, S2, Systolic murmur at the LLSB ABDOMEN: Soft, nontender, nondistended, normoactive bowel sounds, no guarding EXTREMITIES: 2+ pulses, no edema. gangrenous left 3 and 4 toes NEUROLOGICAL: Cranial nerves II through XII grossly intact. Normal speech, gait not observed. WBC 15.7 K/mm3 (4.0-10.0) H 06/10/18 06:30 RBC 2.98 M/mm3 (4.00-5.60) L 06/10/18 06:30 Hgb 9.8 GM/dL (11.7-16.9) L 06/10/18 06:30 Hct 29.9 % (35.4-49) L D 06/10/18 06:30 MCV 100.3 fl (80-96) H 06/10/18 06:30 MCHC 32.8 g/dl (32.0-35.9) 06/10/18 06:30 RDW 17.0 % (11.9-15.9) H 06/10/18 06:30 Plt Count 355 K/MM3 (134-434) 06/10/18 06:30 MPV 8.0 fl (7.5-11.1) 06/10/18 06:30 CMP Sodium 137 mmol/L (136-145) 06/10/18 06:30 Potassium 3.8 mmol/L (3.5-5.1) 06/10/18 06:30 Chloride 96 mmol/L (98-107) L 06/10/18 06:30 Carbon Dioxide 25 mmol/L (21-32) 06/10/18 06:30 Anion Gap 16 MMOL/L (8-16) 06/10/18 06:30 BUN 20 mg/dL (7-18) H 06/10/18 06:30 Creatinine 6.0 mg/dL (0.55-1.3) H 06/10/18 06:30 Creat Clearance w eGFR 9.34 (>60) 06/10/18 06:30 Random Glucose 107 mg/dL (74-106) H 06/10/18 06:30 Calcium 10.2 mg/dL (8.5-10.1) H 06/10/18 06:30 Total Bilirubin 0.8 mg/dL (0.2-1) 06/10/18 06:30 AST 20 U/L (15-37) 06/10/18 06:30 ALT 13 U/L (13-61) 06/10/18 06:30 Alkaline Phosphatase 282 U/L (45-117) H 06/10/18 06:30 Total Protein 8.5 g/dl (6.4-8.2) H 06/10/18 06:30 Albumin 2.9 g/dl (3.4-5.0) L 06/10/18 06:30 Current Medications Generic Name Dose Route Start Last Admin Trade Name Freq PRN Reason Stop Dose Admin Acetaminophen 650 mg 06/11/18 14:53 Tylenol - PO Q4H PRN PAIN LEVEL 1-5 Aspirin 81 mg 06/12/18 10:00 Ecotrin - PO DAILY [facility] Atorvastatin Calcium 40 mg 06/11/18 22:00 Lipitor - PO HS [facility] Calcitriol 0.25 mcg 06/12/18 10:00 Rocaltrol - PO DAILY [facility] Clopidogrel Bisulfate 75 mg 06/12/18 10:00 Plavix - PO DAILY [facility] Furosemide 40 mg 06/12/18 10:00 Lasix - PO DAILY [facility] Hydralazine HCl 100 mg 06/11/18 22:00 Apresoline - PO TID [facility] Sodium Chloride 250 mls @ 3,000 mls/hr 06/11/18 14:53 Normal Saline - IV 06/12/18 06:36 PRN PRN Hypotension during Dialysis Piperacillin Sod/Tazobactam 50 mls @ 100 mls/hr 06/11/18 18:00 Sod 2.25 gm/ Dextrose IVPB Q8H-IV [facility] Protocol Insulin Aspart 1 vial 06/11/18 16:30 Novolog Vial Sliding Scale - SQ TIDAC [facility] Protocol Morphine Sulfate 2 mg 06/11/18 14:53 Morphine Sulfate IVPUSH Q4H PRN PAIN LEVEL 6-10 Nifedipine 60 mg 06/11/18 22:00 Procardia Xl - PO BID [facility] Sevelamer Carbonate 800 mg 06/11/18 17:30 Renvela - PO TIDCM [facility] Home Medications Medication Instructions Recorded Sevelamer HCl [Renagel] 800 mg PO TIDCM 05/16/18 Aspirin Coated [Ecotrin -] 81 mg PO DAILY #30 tablet.ec 05/27/18 Atorvastatin Ca [Lipitor] 20 mg PO HS #30 tablet 05/27/18 Calcitriol [Calcitriol -] 0.25 mcg PO DAILY #30 capsule 05/27/18 Clopidogrel Bisulfate [Plavix -] 75 mg PO DAILY #30 tablet 05/27/18 Furosemide [Lasix -] 40 mg PO DAILY #30 tablet 05/27/18 Hydralazine HCl 100 mg PO TID #90 tablet 05/27/18 Nifedipine ER [Procardia XL -] 60 mg PO BID #60 tab.er.24 05/27/18 Acetaminophen [Tylenol] 650 mg PO QID PRN 06/05/18 ASSESSMENT AND PLAN: 68 y/o man with h/o CAD, recent OR, PVD, ESRD on HD, HTN, HLP, Hep B , DM, and recent admission for L 4th toe gangrene and OM, s/p angiogram, atherectomy and angioplasty, who presented with increased pain in foot and change in L 3rd toe color. He was found to have a gangrenous 3rd and 4th toes. # Gangrenous left 3rd and 4th toes with Osteomyelitis. going to OR continue IV vanco and zosyn. vanco level noted - cont ASA and plavix ,statin. Patient was cleared by Dr. Wilkins since no new changes On EKG # H/o HTN: continue Nifedipine . # H/O ESRD: on HD , continue lasix , sevelamir DVT PX: SCds. heparin
[2018-06-11] MEDS ORDERED: EPOETIN ALFA 2,000 UNIT/1 ML VIAL IVPUSH ONE (16:30)
--- NOTE | 2018-06-11 17:56 | PN ---
Progress Note, Physician History of Present Illness: Pt seen and examined at bedside. He is awake and alert. He tolerated HD. - Current Medication List Current Medications: Active Medications Acetaminophen (Tylenol -) 650 mg PO Q4H PRN PRN Reason: PAIN LEVEL 1-5 Aspirin (Ecotrin -) 81 mg PO DAILY [facility] Atorvastatin Calcium (Lipitor -) 40 mg PO HS [facility] Calcitriol (Rocaltrol -) 0.25 mcg PO DAILY [facility] Clopidogrel Bisulfate (Plavix -) 75 mg PO DAILY [facility] Furosemide (Lasix -) 40 mg PO DAILY [facility] Hydralazine HCl (Apresoline -) 100 mg PO TID [facility] Sodium Chloride (Normal Saline -) 250 mls @ 3,000 mls/hr IV PRN PRN PRN Reason: Hypotension during Dialysis Stop: 06/12/18 06:36 Piperacillin Sod/Tazobactam (Sod 2.25 gm/ Dextrose) 50 mls @ 100 mls/hr IVPB Q8H-IV [facility]; Protocol Last Admin: 06/11/18 17:34 Dose: 100 mls/hr Insulin Aspart (Novolog Vial Sliding Scale -) 1 vial SQ TIDAC [facility]; Protocol Last Admin: 06/11/18 16:51 Dose: Not Given Morphine Sulfate (Morphine Sulfate) 2 mg IVPUSH Q4H PRN PRN Reason: PAIN LEVEL 6-10 Last Admin: 06/11/18 16:46 Dose: 2 mg Nifedipine (Procardia Xl -) 60 mg PO BID [facility] Sevelamer Carbonate (Renvela -) 800 mg PO TIDCM [facility] Last Admin: 06/11/18 17:34 Dose: 800 mg - Objective Vital Signs: Vital Signs Temperature 98.0 F 06/11/18 15:55 Pulse Rate 68 06/11/18 15:55 Respiratory Rate 18 06/11/18 15:55 Blood Pressure 155/52 L 06/11/18 15:55 O2 Sat by Pulse Oximetry (%) 98 06/11/18 15:40 Constitutional: Yes: Calm Eyes: Yes: Conjunctiva Clear HENT: Yes: Atraumatic Neck: Yes: Supple Cardiovascular: Yes: S1, S2 Respiratory: Yes: CTA Bilaterally Gastrointestinal: Yes: Normal Bowel Sounds, Soft Genitourinary: Yes: WNL Musculoskeletal: Yes: Other (3rd and 4th toe gangrene) Edema: No Neurological: Yes: Oriented Psychiatric: Yes: Oriented Labs: CBC, BMP 06/10/18 06:30 06/10/18 06:30 INR, PTT INR 1.09 (0.83-1.09) 06/06/18 06:30 Problem List - Problems (1) ESRD (end stage renal disease) Code(s): N18.6 - END STAGE RENAL DISEASE (2) Gangrene Code(s): I96 - GANGRENE, NOT ELSEWHERE CLASSIFIED (3) PAD (peripheral artery disease) Code(s): I73.9 - PERIPHERAL VASCULAR DISEASE, UNSPECIFIED Assessment/Plan Current Medications Generic Name Dose Route Start Last Admin Trade Name Freq PRN Reason Stop Dose Admin Acetaminophen 650 mg 06/11/18 14:53 Tylenol - PO Q4H PRN PAIN LEVEL 1-5 Aspirin 81 mg 06/12/18 10:00 Ecotrin - PO DAILY [facility] Atorvastatin Calcium 40 mg 06/11/18 22:00 Lipitor - PO HS [facility] Calcitriol 0.25 mcg 06/12/18 10:00 Rocaltrol - PO DAILY [facility] Clopidogrel Bisulfate 75 mg 06/12/18 10:00 Plavix - PO DAILY [facility] Furosemide 40 mg 06/12/18 10:00 Lasix - PO DAILY [facility] Hydralazine HCl 100 mg 06/11/18 22:00 Apresoline - PO TID [facility] Sodium Chloride 250 mls @ 3,000 mls/hr 06/11/18 14:53 Normal Saline - IV 06/12/18 06:36 PRN PRN Hypotension during Dialysis Piperacillin Sod/Tazobactam 50 mls @ 100 mls/hr 06/11/18 18:00 06/11/18 17:34 Sod 2.25 gm/ Dextrose IVPB 100 mls/hr Q8H-IV [facility] Administration Protocol Insulin Aspart 1 vial 06/11/18 16:30 06/11/18 16:51 Novolog Vial Sliding Scale - SQ Not Given TIDAC [facility] Protocol Morphine Sulfate 2 mg 06/11/18 14:53 06/11/18 16:46 Morphine Sulfate IVPUSH 2 mg Q4H PRN Administration PAIN LEVEL 6-10 Nifedipine 60 mg 06/11/18 22:00 Procardia Xl - PO BID [facility] Sevelamer Carbonate 800 mg 06/11/18 17:30 06/11/18 17:34 Renvela - PO 800 mg TIDCM [facility] Administration Impression 1. ESRD on HD 2. anemia 3. DM 4. HTN 5. toe infection/gangrene 6. PVD Plan - HD today - podiatry follow up - cont wound care - renal diet after surgery - monitor BP - avf 3:00 400 abf - epogen 10,000 for anemia
[2018-06-11] MEDS: ATORVASTATIN CA 40 MG TABLET (FP) PO SCH (22:03)
[2018-06-12] MEDS ORDERED: PIPERACILLIN/TAZOBACTAM 2.25 GM VIAL IVPB ONE ×2 (02:33→10:33)
[2018-06-12] MEDS ORDERED: DEXTROSE 5%-WATER - 50 ML IVPB ONE ×2 (02:33→10:33)
[2018-06-12] MEDS: PIPERACILLIN/TAZOB 2.25 GM 2.25 GM in DEXTROSE 5%-WATER - 50 ML IVPB SCH ×3 (02:41→17:15)
[2018-06-12] MEDS: hydrALAZINE HCL 50 MG TABLET (FP) PO SCH ×3 (06:28→22:03)
[2018-06-12] MEDS: INSULIN SLIDING SCALE (NOVOLOG) 1 VIAL SQ SCH ×3 (06:33→15:54)
[2018-06-12 06:54] LABS: BASO % 0.5 % (0-2.0); EOS % 1.4 % (0-4.5); HEMATOCRIT 27.2 % (35.4-49); HEMOGLOBIN 8.9 GM/dL (11.7-16.9); LYMPH % 5.6 % (8-40); MCH 32.3 pg (25.7-33.7); MCHC 32.6 g/dl (32.0-35.9); MEAN CELL VOLUME 99.1 fl (80-96); MEAN PLT VOLUME 7.8 fl (7.5-11.1); MONO % 8.1 % (3.8-10.2); NEUT % 84.4 % (42.8-82.8); PLATELET COUNT 315 K/MM3 (134-434); RBC 2.74 M/mm3 (4.00-5.60); RDW 16.5 % (11.9-15.9); WHITE BLOOD COUNT 15.4 K/mm3 (4.0-10.0)
[2018-06-12 08:31] LABS: ALBUMIN 2.3 g/dl (3.4-5.0); ALK PHOS 203 U/L (45-117); ANION GAP 8 MMOL/L (8-16); BILIRUBIN,TOTAL 0.7 mg/dL (0.2-1); BLOOD UREA NITROGEN 19 mg/dL (7-18); CALCIUM 9.1 mg/dL (8.5-10.1); CHLORIDE 97 mmol/L (98-107); CO2 32 mmol/L (21-32); CREATININE 5.5 mg/dL (0.55-1.3); GLUCOSE,RANDOM 94 mg/dL (74-106); MAGNESIUM 2.2 mg/dL (1.8-2.4); PHOSPHOROUS 4.5 mg/dL (2.5-4.9); POTASSIUM 3.7 mmol/L (3.5-5.1); SGOT/AST 22 U/L (15-37); SGPT/ALT 10 U/L (13-61); SODIUM 137 mmol/L (136-145)
[2018-06-12] MEDS: FUROSEMIDE 40 MG TABLET (FP) PO SCH (10:35)
[2018-06-12] MEDS: CALCITRIOL 0.25 MCG CAPSULE (FP) PO SCH (10:35)
[2018-06-12] MEDS: SEVELAMER CARBONATE 800 MG TAB (FP) PO SCH ×3 (10:35→17:15)
[2018-06-12] MEDS: MORPHINE SULFATE 2 MG/ML VIAL IVPUSH PRN ×2 (10:35→15:51)
[2018-06-12] MEDS: CLOPIDOGREL BISULFATE 75 MG TABLET (FP) PO SCH (10:35)
[2018-06-12] MEDS: ASPIRIN COATED 81 MG TABLET.EC PO SCH (10:35)
[2018-06-12] MEDS: NIFEdipine E.R 60 MG TABLET (UD) PO SCH ×2 (10:43→22:03)
--- NOTE | 2018-06-12 10:46 | PN ---
Progress Note, Physician Chief Complaint: Pt says his foot is bleeding and there is mild pain, no anesthesia complaints. - Current Medication List Current Medications: Active Medications Acetaminophen (Tylenol -) 650 mg PO Q4H PRN PRN Reason: PAIN LEVEL 1-5 Aspirin (Ecotrin -) 81 mg PO DAILY [facility] Last Admin: 06/12/18 10:35 Dose: 81 mg Atorvastatin Calcium (Lipitor -) 40 mg PO HS [facility] Last Admin: 06/11/18 22:03 Dose: 40 mg Calcitriol (Rocaltrol -) 0.25 mcg PO DAILY [facility] Last Admin: 06/12/18 10:35 Dose: 0.25 mcg Clopidogrel Bisulfate (Plavix -) 75 mg PO DAILY [facility] Last Admin: 06/12/18 10:35 Dose: 75 mg Furosemide (Lasix -) 40 mg PO DAILY [facility] Last Admin: 06/12/18 10:35 Dose: 40 mg Hydralazine HCl (Apresoline -) 100 mg PO TID [facility] Last Admin: 06/12/18 06:28 Dose: 100 mg Piperacillin Sod/Tazobactam (Sod 2.25 gm/ Dextrose) 50 mls @ 100 mls/hr IVPB Q8H-IV [facility]; Protocol Last Admin: 06/12/18 10:34 Dose: 100 mls/hr Insulin Aspart (Novolog Vial Sliding Scale -) 1 vial SQ TIDAC [facility]; Protocol Last Admin: 06/12/18 06:33 Dose: Not Given Morphine Sulfate (Morphine Sulfate) 2 mg IVPUSH Q4H PRN PRN Reason: PAIN LEVEL 6-10 Last Admin: 06/12/18 10:35 Dose: 2 mg Nifedipine (Procardia Xl -) 60 mg PO BID [facility] Last Admin: 06/12/18 10:43 Dose: 60 mg Sevelamer Carbonate (Renvela -) 800 mg PO TIDCM [facility] Last Admin: 06/12/18 10:35 Dose: 800 mg - Objective Vital Signs: Vital Signs Temperature 98.6 F 06/12/18 05:30 Pulse Rate 69 06/12/18 05:30 Respiratory Rate 19 06/11/18 21:00 Blood Pressure 151/66 06/12/18 05:30 O2 Sat by Pulse Oximetry (%) 94 L 06/11/18 21:00 Constitutional: Yes: Well Nourished, No Distress, Calm Neurological: Yes: WNL, Alert, Oriented Labs: CBC, BMP 06/12/18 06:18 06/12/18 06:18 INR, PTT INR 1.09 (0.83-1.09) 06/06/18 06:30 Assessment/Plan POD#1 s/p left 2nd and 5th toe amputations under MAC. Doing well from anesthesia standpoint. D/C from anesthesia care.
[2018-06-12] MEDS ORDERED: INSULIN (NOVOLOG) ASPART 100 UNITS/ML 10ML VIAL ONE (10:48)
--- NOTE | 2018-06-12 10:51 | PN ---
Progress Note, Physician Chief Complaint: Pt alert; c/o pain in left foot. History of Present Illness: This is a 68 year-old male (fiona. Deniz), with HTN, NIDDM, ESRD on HD (M,W,F), CAD (s/p "infarct" about one year ago--treated at [facility]; never had coronary angiogram), diastolic CHF, and peripheral arterial disease/known left 4th toe osteomyelitis and gangrene, [facility], who presents with worsening, "stabbing", intermittent pain since last night. He notes that his left 4th toe is darker and his 3rd toe is black, which is completely new according to both him and his . He denies fevers/chills or any other symptoms. Vital signs on arrival are unremarkable. - Current Medication List Current Medications: Active Medications Acetaminophen (Tylenol -) 650 mg PO Q4H PRN PRN Reason: PAIN LEVEL 1-5 Aspirin (Ecotrin -) 81 mg PO DAILY ON [facility] OF [facility] Last Admin: 06/12/18 10:35 Dose: 81 mg Atorvastatin Calcium (Lipitor -) 40 mg PO HS ON [facility] OF [facility] Last Admin: 06/11/18 22:03 Dose: 40 mg Calcitriol (Rocaltrol -) 0.25 mcg PO DAILY ON [facility] Last Admin: 06/12/18 10:35 Dose: 0.25 mcg Clopidogrel Bisulfate (Plavix -) 75 mg PO DAILY ON [facility] Last Admin: 06/12/18 10:35 Dose: 75 mg Furosemide (Lasix -) 40 mg PO DAILY [facility] Last Admin: 06/12/18 10:35 Dose: 40 mg Hydralazine HCl (Apresoline -) 100 mg PO TID ON [facility] OF [facility] Last Admin: 06/12/18 06:28 Dose: 100 mg Piperacillin Sod/Tazobactam (Sod 2.25 gm/ Dextrose) 50 mls @ 100 mls/hr IVPB Q8H-IV ON [facility] OF [facility]; Protocol Last Admin: 06/12/18 10:34 Dose: 100 mls/hr Insulin Aspart (Novolog Vial Sliding Scale -) 1 vial SQ TIDAC ON LICENSE OF [facility]; Protocol Last Admin: 06/12/18 10:46 Dose: Not Given Morphine Sulfate (Morphine Sulfate) 2 mg IVPUSH Q4H PRN PRN Reason: PAIN LEVEL 6-10 Last Admin: 06/12/18 10:35 Dose: 2 mg Nifedipine (Procardia Xl -) 60 mg PO BID ON [facility] Last Admin: 06/12/18 10:43 Dose: 60 mg Sevelamer Carbonate (Renvela -) 800 mg PO TIDCM ON [facility] OF [facility] Last Admin: 06/12/18 10:35 Dose: 800 mg - Objective Vital Signs: Vital Signs Temperature 98.6 F 06/12/18 05:30 Pulse Rate 69 06/12/18 05:30 Respiratory Rate 19 06/11/18 21:00 Blood Pressure 151/66 06/12/18 05:30 O2 Sat by Pulse Oximetry (%) 94 L 06/11/18 21:00 Constitutional: Yes: Calm Eyes: Yes: WNL HENT: Yes: WNL Neck: Yes: WNL Cardiovascular: Yes: Regular Rate and Rhythm, S1, S2 Respiratory: Yes: Regular Gastrointestinal: Yes: Soft ...Rectal Exam: Yes: Deferred Genitourinary: No: Anuria Breast(s): Yes: WNL Musculoskeletal: Yes: Joint Stiffness, Muscle Pain, Muscle Weakness Extremities: Yes: Cool Edema: No Peripheral Pulses WNL: No Peripheral Pulses: Left Doralis Pedis: 1+, Right Dorsalis Pedis: 1+ Integumentary: Yes: Venous Stasis Changes Wound/Incision: Yes: Dressing Dry and Intact Neurological: Yes: WNL, Alert, Oriented, Unsteady Gait, Weakness Psychiatric: Yes: WNL Labs: CBC, BMP 06/12/18 06:18 06/12/18 06:18 INR, PTT INR 1.09 (0.83-1.09) 06/06/18 06:30 Problem List - Problems (1) Anemia Code(s): D64.9 - ANEMIA, UNSPECIFIED (2) ESRD (end stage renal disease) Assessment/Plan: on hemodialysis 3x/week Code(s): N18.6 - END STAGE RENAL DISEASE (3) PAD (peripheral artery disease) Assessment/Plan: gangrenous toes-->surgery Code(s): I73.9 - PERIPHERAL VASCULAR DISEASE, UNSPECIFIED (4) AV fistula Code(s): I77.0 - ARTERIOVENOUS FISTULA, ACQUIRED (5) Diabetes Code(s): E11.9 - TYPE 2 DIABETES MELLITUS WITHOUT COMPLICATIONS Qualifiers: Diabetes mellitus type: type 2 Diabetes mellitus assisted insulin use: without termite control technician use Diabetes mellitus complication detail: with chronic kidney disease Chronic kidney disease stage: stage 5, not on chronic dialysis (6) Diastolic CHF Code(s): I50.30 - UNSPECIFIED DIASTOLIC (CONGESTIVE) HEART FAILURE (7) [place] cardiac risk >20% in next 10 years Assessment/Plan: The importance of aggressive risk-factor control was discussed in detail with pt and his daughter. Strong family hx DM. Pt is a candidate for cardiac rehabilitation ([place] in the past year; mild ischemia on recent stress MIBI). Lower LDL even further with increase statin dose, diet, exercise. Code(s): Z91.89 - OTH PERSONAL RISK FACTORS, NOT ELSEWHERE CLASSIFIED (8) Hypertension Code(s): I10 - ESSENTIAL (PRIMARY) HYPERTENSION Qualifiers: (9) Pre-operative cardiovascular examination Assessment/Plan: Pt A&Ox3; daughter at bedside, and provides confirmation of hx. Until a month ago, when left leg discomfort at site of gangrene radiated throughout leg and made walking painful, he had been walking a few blocks and taking stairs almost daily without chest pain or dyspnea. Reportedly had "small infarct" a year ago (treated at [facility];s; denies having had to undergo coronary angiogram). Stress MIBI 05/2018: small area of mildly intense periinfarct inferoapical ischemia. ECHO 05/2018: normal LVEF; moderate TR; mild-moderate HI. EKG: NSR; nonspecific T wave abnormalities (EKG without significant change from prior EKGs as far back as 2016). From a cardiac perspecitve, pt was cleared to undergo LE surgery for gangrenous toes; doing well post-op. Code(s): Z01.810 - ENCOUNTER FOR PREPROCEDURAL CARDIOVASCULAR EXAMINATION
--- NOTE | 2018-06-12 13:01 | PN ---
Physical Exam: SUBJECTIVE: Patient seen and examined this morning POD#1. Had 1 BM overnight and tolerated diet. Pain controlled. Denies fevers, chills, chest pain, SOB, nausea, vomiting. OBJECTIVE: Vital Signs Period Temp Pulse Resp BP Sys/Cole Pulse Ox Last 24 Hr 97.9 F-100 F 60-75 16-22 91-165/52-75 94-100 GENERAL: The patient is awake, alert, and fully oriented, in no acute distress. HEAD: NCAT EYES: PERRL, EOMI ENT: oropharynx clear without exudates, MMM NECK: supple, No JVD LUNGS: Breath sounds equal, clear to auscultation bilaterally, no wheezes HEART: Regular rate and rhythm, S1, S2, Systolic murmur at the LLSB ABDOMEN: Soft, nontender, nondistended, normoactive bowel sounds, no guarding EXTREMITIES: RLE--2+ pulses, no edema. Left foot covered in bandage, with some dried blood at the opening, No edema, minimal tenderness to palpation surrounding bandage. NEUROLOGICAL: Cranial nerves II through XII grossly intact. Normal speech, gait not observed. Laboratory Results - last 24 hr 06/11/18 06/12/18 06/12/18 16:50 06:18 06:18 WBC 15.4 H RBC 2.74 L Hgb 8.9 L Hct 27.2 L MCV 99.1 H MCH 32.3 MCHC 32.6 RDW 16.5 H Plt Count 315 MPV 7.8 Absolute Neuts (auto) 13.0 H Neutrophils % 84.4 H Lymphocytes % 5.6 L D Monocytes % 8.1 Eosinophils % 1.4 Basophils % 0.5 Nucleated RBC % 0 Sodium 137 Potassium 3.7 Chloride 97 L Carbon Dioxide 32 Anion Gap 8 BUN 19 H Creatinine 5.5 H Creat Clearance w eGFR 10.33 POC Glucometer 106 Random Glucose 94 Calcium 9.1 Phosphorus 4.5 Magnesium 2.2 Total Bilirubin 0.7 AST 22 ALT 10 L Alkaline Phosphatase 203 H Total Protein 7.0 Albumin 2.3 L Microbiology 06/05/18 11:10 Blood - Peripheral Venous Blood Culture - Final NO GROWTH AFTER 5 DAYS INCUBATION 06/05/18 11:10 Blood - Peripheral Venous Blood Culture - Final NO GROWTH AFTER 5 DAYS INCUBATION Active Medications Acetaminophen (Tylenol -) 650 mg PO Q4H PRN PRN Reason: PAIN LEVEL 1-5 Aspirin (Ecotrin -) 81 mg PO DAILY [facility] Last Admin: 06/12/18 10:35 Dose: 81 mg Atorvastatin Calcium (Lipitor -) 40 mg PO HS [facility] Last Admin: 06/11/18 22:03 Dose: 40 mg Calcitriol (Rocaltrol -) 0.25 mcg PO DAILY [facility] Last Admin: 06/12/18 10:35 Dose: 0.25 mcg Clopidogrel Bisulfate (Plavix -) 75 mg PO DAILY [facility] Last Admin: 06/12/18 10:35 Dose: 75 mg Furosemide (Lasix -) 40 mg PO DAILY [facility] Last Admin: 06/12/18 10:35 Dose: 40 mg Hydralazine HCl (Apresoline -) 100 mg PO TID [facility] Last Admin: 06/12/18 06:28 Dose: 100 mg Piperacillin Sod/Tazobactam (Sod 2.25 gm/ Dextrose) 50 mls @ 100 mls/hr IVPB Q8H-IV [facility]; Protocol Last Admin: 06/12/18 10:34 Dose: 100 mls/hr Insulin Aspart (Novolog Vial Sliding Scale -) 1 vial SQ TIDAC [facility]; Protocol Last Admin: 06/12/18 10:46 Dose: Not Given Morphine Sulfate (Morphine Sulfate) 2 mg IVPUSH Q4H PRN PRN Reason: PAIN LEVEL 6-10 Last Admin: 06/12/18 10:35 Dose: 2 mg Nifedipine (Procardia Xl -) 60 mg PO BID [facility] Last Admin: 06/12/18 10:43 Dose: 60 mg Sevelamer Carbonate (Renvela -) 800 mg PO TIDCM [facility] Last Admin: 06/12/18 10:35 Dose: 800 mg IMAGING: EKG: NORMAL SINUS RHYTHM, NONSPECIFIC T WAVE ABNORMALITY Left Foot XRay: No fracture or osteomyelitis. CT ANGIOGRAM OF THE ABDOMEN AND PELVIS WITH BILATERAL LOWER EXTREMITY RUNOFFS: Predominant distal arterial disease suggestive of diabetic and/or nephrogenic vasculopathy. Predominant disease in the distal left popliteal and infrapopliteal arteries demonstrating interval improvement in flow and mild improvement in the degree of stenosis described on the prior exam, as described above. Essential flow to the foot is provided by the MIGUELITO. Peroneal artery is occluded and DONKEY ENGINE FIRER/FIREMAN demonstrate short segmental occlusions with reconstitution of flow in the plantar artery which demonstrate robust flow. Flow is seen in the digital arteries. Predominant right infrapopliteal disease, as described above, grossly unchanged since the prior exam. Subcutaneous edema with mesenteric stranding possibly due to third spacing/anasarca. Under distended urinary bladder with suggestion of wall thickening. Correlate clinically for cystitis. ASSESSMENT/PLAN: 68 y/o M w/ PMHx CAD, NM, PVD, ESRD on HD ([place]), HTN, admitted for gangrene/ osteomyelitis of the left foot on 05/16, now presents with worsening pain and discoloration of the left 4th toe and blackening and pain of the 3rd toe 1. Gangrene of L 3rd and 4th toes -POD#1 s/p Amputation of Left toes 2-4 -Remains AFebrile, Pain controlled with Morphine 2mg q 4 PRN -WBC 15.7 --> 15.4 -CTA noted as above -EKG done (06/10) revealed new T-wave inversions in lateral leads, case discussed with Dr. Wilkins--Pt is cleared to undergo LE surgery -Dr. Paiz consulted: Pt cleared from a vascular standpoint for podiatry intervention. -ID (Dr. Reyez) consulted: Vanc/Zosyn (Started on 06/05), intermittent vanco dosing based on vanc level -Podiatry (Dr. Garcia) consulted: Amputation on 06/11, will follow rec's 2. ESRD on HD ([facility]) -Nephro (Dr. Flaherty) consulted-- renal diet after surgery, monitor BP -cont home Lasix, Sevelamer 3. CAD/PVD -Cont ASA/Plavix 4. HTN -cont home nifedipine, hydralazine 5. anemia -likely of chronic disease 2/2 ESRD -epogen 10,000 6.FEN -PO Fluids -Continue to monitor lytes -Diabetic diet 7. PPx -no heparin at this time per vascular Dispo -med surg Visit type - Emergency Visit Emergency Visit: Yes ED Registration Date: 06/05/18 Care time: The patient presented to the Emergency Department on the above date and was hospitalized for further evaluation of their emergent condition. - New Patient This patient is new to me today: No - Critical Care Critical Care patient: No - Discharge Referral Referred to [facility] No
[2018-06-12 13:54] VITALS: BMI 24.1
--- NOTE | 2018-06-12 14:46 | PN ---
Progress Note, Physician History of Present Illness: Pt seen and examined at bedside. He had the toe amputation. - Current Medication List Current Medications: Active Medications Acetaminophen (Tylenol -) 650 mg PO Q4H PRN PRN Reason: PAIN LEVEL 1-5 Aspirin (Ecotrin -) 81 mg PO DAILY [facility] Last Admin: 06/12/18 10:35 Dose: 81 mg Atorvastatin Calcium (Lipitor -) 40 mg PO HS [facility] Last Admin: 06/11/18 22:03 Dose: 40 mg Calcitriol (Rocaltrol -) 0.25 mcg PO DAILY [facility] Last Admin: 06/12/18 10:35 Dose: 0.25 mcg Clopidogrel Bisulfate (Plavix -) 75 mg PO DAILY [facility] Last Admin: 06/12/18 10:35 Dose: 75 mg Furosemide (Lasix -) 40 mg PO DAILY [facility] Last Admin: 06/12/18 10:35 Dose: 40 mg Hydralazine HCl (Apresoline -) 100 mg PO TID [facility] Last Admin: 06/12/18 12:59 Dose: 100 mg Piperacillin Sod/Tazobactam (Sod 2.25 gm/ Dextrose) 50 mls @ 100 mls/hr IVPB Q8H-IV [facility]; Protocol Last Admin: 06/12/18 10:34 Dose: 100 mls/hr Insulin Aspart (Novolog Vial Sliding Scale -) 1 vial SQ TIDAC [facility]; Protocol Last Admin: 06/12/18 10:46 Dose: Not Given Morphine Sulfate (Morphine Sulfate) 2 mg IVPUSH Q4H PRN PRN Reason: PAIN LEVEL 6-10 Last Admin: 06/12/18 10:35 Dose: 2 mg Nifedipine (Procardia Xl -) 60 mg PO BID [facility] Last Admin: 06/12/18 10:43 Dose: 60 mg Sevelamer Carbonate (Renvela -) 800 mg PO TIDCM [facility] Last Admin: 06/12/18 12:59 Dose: 800 mg - Objective Vital Signs: Vital Signs Temperature 97.9 F 06/12/18 11:00 Pulse Rate 68 06/12/18 11:00 Respiratory Rate 20 06/12/18 11:00 Blood Pressure 148/62 06/12/18 11:00 O2 Sat by Pulse Oximetry (%) 95 06/12/18 09:00 Constitutional: Yes: Calm Eyes: Yes: Conjunctiva Clear HENT: Yes: Atraumatic Neck: Yes: Supple Cardiovascular: Yes: S1, S2 Respiratory: Yes: CTA Bilaterally Gastrointestinal: Yes: Normal Bowel Sounds, Soft Genitourinary: Yes: WNL Edema: No Wound/Incision: Yes: Dressing Dry and Intact Neurological: Yes: Oriented Psychiatric: Yes: Oriented Labs: CBC, BMP 06/12/18 06:18 06/12/18 06:18 INR, PTT INR 1.09 (0.83-1.09) 06/06/18 06:30 Problem List - Problems (1) ESRD (end stage renal disease) Code(s): N18.6 - END STAGE RENAL DISEASE (2) Gangrene Code(s): I96 - GANGRENE, NOT ELSEWHERE CLASSIFIED (3) PAD (peripheral artery disease) Code(s): I73.9 - PERIPHERAL VASCULAR DISEASE, UNSPECIFIED Assessment/Plan Current Medications Generic Name Dose Route Start Last Admin Trade Name Freq PRN Reason Stop Dose Admin Acetaminophen 650 mg 06/11/18 14:53 Tylenol - PO Q4H PRN PAIN LEVEL 1-5 Aspirin 81 mg 06/12/18 10:00 06/12/18 10:35 Ecotrin - PO 81 mg DAILY [facility] Administration Atorvastatin Calcium 40 mg 06/11/18 22:00 06/11/18 22:03 Lipitor - PO 40 mg HS [facility] Administration Calcitriol 0.25 mcg 06/12/18 10:00 06/12/18 10:35 Rocaltrol - PO 0.25 mcg DAILY [facility] Administration Clopidogrel Bisulfate 75 mg 06/12/18 10:00 06/12/18 10:35 Plavix - PO 75 mg DAILY [facility] Administration Furosemide 40 mg 06/12/18 10:00 06/12/18 10:35 Lasix - PO 40 mg DAILY [facility] Administration Hydralazine HCl 100 mg 06/11/18 22:00 06/12/18 12:59 Apresoline - PO 100 mg TID [facility] Administration Piperacillin Sod/Tazobactam 50 mls @ 100 mls/hr 06/11/18 18:00 06/12/18 10:34 Sod 2.25 gm/ Dextrose IVPB 100 mls/hr Q8H-IV [facility] Administration Protocol Insulin Aspart 1 vial 06/11/18 16:30 06/12/18 10:46 Novolog Vial Sliding Scale - SQ Not Given TIDAC [facility] Protocol Morphine Sulfate 2 mg 09/26/18 14:53 06/12/18 10:35 Morphine Sulfate IVPUSH 2 mg Q4H PRN Administration PAIN LEVEL 6-10 Nifedipine 60 mg 06/11/18 22:00 06/12/18 10:43 Procardia Xl - PO 60 mg BID [facility] Administration Sevelamer Carbonate 800 mg 06/11/18 17:30 06/12/18 12:59 Renvela - PO 800 mg TIDCM [facility] Administration Impression 1. ESRD on HD 2. anemia 3. DM 4. HTN 5. toe infection/gangrene 6. PVD Plan - HD in am - cont wound care - renal diet - monitor BP - avf 3:00 400 abf - epogen 10,000 for anemia
--- NOTE | 2018-06-12 18:31 | PN ---
Teaching Attending Note Name of Resident: Linda Agrawal ATTENDING PHYSICIAN STATEMENT I saw and evaluated the patient. I reviewed the resident's note and discussed the case with the resident. I agree with the resident's findings and plan as documented. SUBJECTIVE: Patient is comfortable with no acute distress. OBJECTIVE: Vital Signs Temperature 97.9 F 06/12/18 11:00 Pulse Rate 68 06/12/18 11:00 Respiratory Rate 20 06/12/18 11:00 Blood Pressure 148/62 06/12/18 11:00 O2 Sat by Pulse Oximetry (%) 95 06/12/18 09:00 GENERAL: The patient is awake, alert, and fully oriented, in no acute distress. HEAD: NCAT; EYES: PERRL, EOMI ENT: oropharynx clear without exudates, MMM NECK: supple, No JVD LUNGS: Breath sounds equal, clear to auscultation bilaterally, no wheezes HEART: Regular rate and rhythm, S1, S2, Systolic murmur at the LLSB ABDOMEN: Soft, nontender, nondistended, normoactive bowel sounds, no guarding EXTREMITIES: 2+ pulses, no edema. POD #1 s/p amputation of left 3 and 4 toes. NEUROLOGICAL: Cranial nerves II through XII grossly intact. Normal speech. gait not observed. CBCD WBC 15.4 K/mm3 (4.0-10.0) H 06/12/18 06:18 RBC 2.74 M/mm3 (4.00-5.60) L 06/12/18 06:18 Hgb 8.9 GM/dL (11.7-16.9) L 06/12/18 06:18 Hct 27.2 % (35.4-49) L 06/12/18 06:18 MCV 99.1 fl (80-96) H 06/12/18 06:18 MCHC 32.6 g/dl (32.0-35.9) 06/12/18 06:18 RDW 16.5 % (11.9-15.9) H 06/12/18 06:18 Plt Count 315 K/MM3 (134-434) 06/12/18 06:18 MPV 7.8 fl (7.5-11.1) 06/12/18 06:18 CMP Sodium 137 mmol/L (136-145) 06/12/18 06:18 Potassium 3.7 mmol/L (3.5-5.1) 06/12/18 06:18 Chloride 97 mmol/L (98-107) L 06/12/18 06:18 Carbon Dioxide 32 mmol/L (21-32) 06/12/18 06:18 Anion Gap 8 MMOL/L (8-16) 06/12/18 06:18 BUN 19 mg/dL (7-18) H 06/12/18 06:18 Creatinine 5.5 mg/dL (0.55-1.3) H 06/12/18 06:18 Creat Clearance w eGFR 10.33 (>60) 06/12/18 06:18 Random Glucose 94 mg/dL (74-106) 06/12/18 06:18 Calcium 9.1 mg/dL (8.5-10.1) 06/12/18 06:18 Total Bilirubin 0.7 mg/dL (0.2-1) 06/12/18 06:18 AST 22 U/L (15-37) 06/12/18 06:18 ALT 10 U/L (13-61) L 06/12/18 06:18 Alkaline Phosphatase 203 U/L (45-117) H 06/12/18 06:18 Total Protein 7.0 g/dl (6.4-8.2) 06/12/18 06:18 Albumin 2.3 g/dl (3.4-5.0) L 06/12/18 06:18 Current Medications Generic Name Dose Route Start Last Admin Trade Name Freq PRN Reason Stop Dose Admin Acetaminophen 650 mg 06/11/18 14:53 Tylenol - PO Q4H PRN PAIN LEVEL 1-5 Aspirin 81 mg 06/12/18 10:00 06/12/18 10:35 Ecotrin - PO 81 mg DAILY [facility] Administration Atorvastatin Calcium 40 mg 06/11/18 22:00 06/11/18 22:03 Lipitor - PO 40 mg HS [facility] Administration Calcitriol 0.25 mcg 06/12/18 10:00 06/12/18 10:35 Rocaltrol - PO 0.25 mcg DAILY [facility] Administration Clopidogrel Bisulfate 75 mg 06/12/18 10:00 06/12/18 10:35 Plavix - PO 75 mg DAILY [facility] Administration Epoetin Thomas 10,000 unit 06/13/18 14:47 Procrit - IVPUSH 06/13/18 14:48 ONCE ONE Furosemide 40 mg 06/12/18 10:00 06/12/18 10:35 Lasix - PO 40 mg DAILY [facility] Administration Hydralazine HCl 100 mg 06/11/18 22:00 06/12/18 12:59 Apresoline - PO 100 mg TID [facility] Administration Piperacillin Sod/Tazobactam 50 mls @ 100 mls/hr 06/11/18 18:00 06/12/18 17:15 Sod 2.25 gm/ Dextrose IVPB 100 mls/hr Q8H-IV [facility] Administration Protocol Sodium Chloride 250 mls @ 3,000 mls/hr 06/13/18 14:47 Normal Saline - IV 06/13/18 14:48 PRN PRN Hypotension during Dialysis Insulin Aspart 1 vial 06/11/18 16:30 06/12/18 15:54 Novolog Vial Sliding Scale - SQ Not Given TIDAC [facility] Protocol Morphine Sulfate 2 mg 06/11/18 14:53 06/12/18 15:51 Morphine Sulfate IVPUSH 2 mg Q4H PRN Administration PAIN LEVEL 6-10 Nifedipine 60 mg 06/11/18 22:00 06/12/18 10:43 Procardia Xl - PO 60 mg BID [facility] Administration Sevelamer Carbonate 800 mg 06/11/18 17:30 06/12/18 17:15 Renvela - PO 800 mg TIDCM [facility] Administration Home Medications Medication Instructions Recorded Sevelamer HCl [Renagel] 800 mg PO TIDCM 05/16/18 Aspirin Coated [Ecotrin -] 81 mg PO DAILY #30 tablet.ec 05/27/18 Atorvastatin Ca [Lipitor] 20 mg PO HS #30 tablet 05/27/18 Calcitriol [Calcitriol -] 0.25 mcg PO DAILY #30 capsule 05/27/18 Clopidogrel Bisulfate [Plavix -] 75 mg PO DAILY #30 tablet 05/27/18 Furosemide [Lasix -] 40 mg PO DAILY #30 tablet 05/27/18 Hydralazine HCl 100 mg PO TID #90 tablet 05/27/18 Nifedipine ER [Procardia XL -] 60 mg PO BID #60 tab.er.24 05/27/18 Acetaminophen [Tylenol] 650 mg PO QID PRN 06/05/18 ASSESSMENT AND PLAN: Patient is a 68yo male with PMHx of CAD, recent SC, PVD, ESRD on HD, HTN, HLP, Hep B , DM, and recent admission for L 4th toe gangrene and OM, s/p angiogram, atherectomy and angioplasty, who presented with gangrenous 3rd and 4th toes. # POD #1 amputation of gangrenous left 3rd and 4th toes. On IV vanco and zosyn continue, vanco level noted cont ASA and plavix, statin. Patient was cleared by Dr. Carrizales since no new changes On EKG # H/o HTN: continue Nifedipine . # H/O ESRD: on HD ,on lasix , sevelamir DVT PX: SCds. heparin
--- NOTE | 2018-06-12 18:33 | PN ---
Progress Note (short form) - Note Progress Note: Patient seen in bed. POD#1. Patient is complaining of pain. Patient admits to having walked against medical advice. +dry blood on bandage, wbc=15.4, normal post op Pain Dressing reinforced with kerlix and yani bandage. Bathroom privelages are reinstated today. WBC tomorrow. dressing change tomorrow. will follow. post op shoe left.
[2018-06-12] MEDS ORDERED: PT OWN MED DRAWER 7, Y5N ONE (21:10)
--- NOTE | 2018-06-12 21:51 | OP ---
Operative Note - Note: Operative Date: 06/11/18 Pre-Operative Diagnosis: Gangarene toes 2,3,4, oseomyelitis Operation: debridement of necrotic bone and soft tissue, tma including toes 2,3, 4,5 left Findings: gangarene, soft metatrsal bone Surgeon: Rolando Garcia Director Of Instruction: Almas Neely Estimated Blood Loss (mls): 30 Instrument used (Debridements only): knife, saw blade Drains & Tubes with Location: 09/19 iodoform packing Operative Report Dictated: No
[2018-06-12] MEDS: ATORVASTATIN CA 40 MG TABLET (FP) PO SCH (22:03)
[2018-06-13] MEDS ORDERED: PIPERACILLIN/TAZOBACTAM 2.25 GM VIAL IVPB ONE ×2 (02:34→11:56)
[2018-06-13] MEDS ORDERED: DEXTROSE 5%-WATER - 50 ML IVPB ONE ×2 (02:34→11:56)
[2018-06-13] MEDS: PIPERACILLIN/TAZOB 2.25 GM 2.25 GM in DEXTROSE 5%-WATER - 50 ML IVPB SCH ×3 (02:56→19:11)
[2018-06-13] MEDS: INSULIN SLIDING SCALE (NOVOLOG) 1 VIAL SQ SCH ×3 (06:51→15:45)
[2018-06-13] MEDS: hydrALAZINE HCL 50 MG TABLET (FP) PO SCH ×3 (06:52→21:12)
[2018-06-13] MEDS: SEVELAMER CARBONATE 800 MG TAB (FP) PO SCH ×3 (08:13→19:10)
[2018-06-13 08:30] LABS: BASO % 0.6 % (0-2.0); EOS % 1.6 % (0-4.5); HEMATOCRIT 28.5 % (35.4-49); HEMOGLOBIN 9.2 GM/dL (11.7-16.9); MCH 32.1 pg (25.7-33.7); MCHC 32.4 g/dl (32.0-35.9); MEAN CELL VOLUME 99.2 fl (80-96); MEAN PLT VOLUME 8.1 fl (7.5-11.1); NEUT % 84.8 % (42.8-82.8); PLATELET COUNT 330 K/MM3 (134-434); RBC 2.88 M/mm3 (4.00-5.60); RDW 16.4 % (11.9-15.9); WHITE BLOOD COUNT 14.7 K/mm3 (4.0-10.0)
[2018-06-13] MEDS ORDERED: PT OWN MED DRAWER 7, Y5N ONE ×2 (09:01→20:59)
[2018-06-13] MEDS: NIFEdipine E.R 60 MG TABLET (UD) PO SCH ×2 (09:03→21:12)
[2018-06-13 09:09] LABS: ALBUMIN 2.5 g/dl (3.4-5.0); ALK PHOS 218 U/L (45-117); ANION GAP 10 MMOL/L (8-16); BILIRUBIN,TOTAL 0.7 mg/dL (0.2-1); BLOOD UREA NITROGEN 29 mg/dL (7-18); CALCIUM 9.5 mg/dL (8.5-10.1); CHLORIDE 94 mmol/L (98-107); CO2 28 mmol/L (21-32); GLUCOSE,RANDOM 116 mg/dL (74-106); MAGNESIUM 2.5 mg/dL (1.8-2.4); PHOSPHOROUS 5.1 mg/dL (2.5-4.9); SGOT/AST 23 U/L (15-37); SGPT/ALT 11 U/L (13-61); SODIUM 132 mmol/L (136-145); TOT PROT 7.7 g/dl (6.4-8.2)
--- NOTE | 2018-06-13 09:21 | PN ---
Progress Note (short form) - Note Progress Note: Patient seen in bed. POD#2. Patient has no pain. Patient admits to having walked against medical advice. Nurses have reported as well. +bloody dressing, wbc=14.7, +sutures intact, +packing intact, normal post op Pain improved Packing pulled. Dressing reapplied with betadine gauze. WBC in am. If wbc normal in am can be dc to home and follow up in [facility]. Needs post op shoe. Betadine dressing change daily.
[2018-06-13 09:35] LABS: CREATININE 7.4 mg/dL (0.55-1.3)
[2018-06-13] MEDS: CALCITRIOL 0.25 MCG CAPSULE (FP) PO SCH (10:20)
[2018-06-13] MEDS: ASPIRIN COATED 81 MG TABLET.EC PO SCH (10:20)
[2018-06-13] MEDS: FUROSEMIDE 40 MG TABLET (FP) PO SCH (10:20)
[2018-06-13] MEDS: CLOPIDOGREL BISULFATE 75 MG TABLET (FP) PO SCH (10:20)
--- NOTE | 2018-06-13 11:37 | PN ---
Physical Exam: SUBJECTIVE: Patient seen and examined this morning POD#2. Denies any foot pain currently, Did not request pain meds overnight as per nursing staff. Denies fevers, chills, chest pain, SOB, nausea, vomiting. OBJECTIVE: Vital Signs Period Temp Pulse Resp BP Sys/Cole Pulse Ox Last 24 Hr 98.3 F-98.4 F 58-64 20 136-139/61-62 95 GENERAL: The patient is awake, alert, and fully oriented, in no acute distress. HEAD: NCAT ENT: oropharynx clear without exudates, MMM NECK: supple, No JVD LUNGS: Breath sounds equal, clear to auscultation bilaterally, no wheezes HEART: Regular rate and rhythm, S1, S2, Systolic murmur at the LLSB ABDOMEN: Soft, nontender, nondistended, normoactive bowel sounds, no guarding EXTREMITIES: No edema. Left foot covered in bandage with some dried blood at the opening, minimal tenderness to palpation surrounding bandage. Gross lower extremity sensation intact b/l. Muscle strength 5/5 on Right and 4/5 on Left to Dorsiflexion and plantarflexion NEUROLOGICAL: Cranial nerves II through XII grossly intact. Normal speech, gait not observed. Laboratory Results - last 24 hr 06/13/18 06/13/18 07:00 07:00 WBC 14.7 H RBC 2.88 L Hgb 9.2 L Hct 28.5 L MCV 99.2 H MCH 32.1 MCHC 32.4 RDW 16.4 H Plt Count 330 MPV 8.1 Absolute Neuts (auto) 12.5 H Neutrophils % 84.8 H Lymphocytes % 6.0 L Monocytes % 7.0 Eosinophils % 1.6 Basophils % 0.6 Nucleated RBC % 0 Sodium 132 L Potassium 4.0 Chloride 94 L Carbon Dioxide 28 Anion Gap 10 BUN 29 H Creatinine 7.4 H* Creat Clearance w eGFR 7.33 POC Glucometer Random Glucose 116 H Calcium 9.5 Phosphorus 5.1 H Magnesium 2.5 H Total Bilirubin 0.7 AST 23 ALT 11 L Alkaline Phosphatase 218 H Total Protein 7.7 Albumin 2.5 L Microbiology 06/05/18 11:10 Blood - Peripheral Venous Blood Culture - Final NO GROWTH AFTER 5 DAYS INCUBATION 06/05/18 11:10 Blood - Peripheral Venous Blood Culture - Final NO GROWTH AFTER 5 DAYS INCUBATION Active Medications Acetaminophen (Tylenol -) 650 mg PO Q4H PRN PRN Reason: PAIN LEVEL 1-5 Aspirin (Ecotrin -) 81 mg PO DAILY [facility] Last Admin: 06/12/18 10:35 Dose: 81 mg Atorvastatin Calcium (Lipitor -) 40 mg PO HS [facility] Last Admin: 06/12/18 22:03 Dose: 40 mg Calcitriol (Rocaltrol -) 0.25 mcg PO DAILY [facility] Last Admin: 06/12/18 10:35 Dose: 0.25 mcg Clopidogrel Bisulfate (Plavix -) 75 mg PO DAILY [facility] Last Admin: 06/12/18 10:35 Dose: 75 mg Epoetin Thomas (Procrit -) 10,000 unit IVPUSH ONCE ONE Stop: 06/13/18 14:48 Furosemide (Lasix -) 40 mg PO DAILY [facility] Last Admin: 06/12/18 10:35 Dose: 40 mg Hydralazine HCl (Apresoline -) 100 mg PO TID [facility] Last Admin: 06/13/18 06:52 Dose: Not Given Piperacillin Sod/Tazobactam (Sod 2.25 gm/ Dextrose) 50 mls @ 100 mls/hr IVPB Q8H-IV [facility]; Protocol Last Admin: 06/13/18 02:56 Dose: 100 mls/hr Sodium Chloride (Normal Saline -) 250 mls @ 3,000 mls/hr IV PRN PRN PRN Reason: Hypotension during Dialysis Stop: 06/13/18 14:48 Insulin Aspart (Novolog Vial Sliding Scale -) 1 vial SQ TIDAC [facility]; Protocol Last Admin: 06/13/18 06:51 Dose: Not Given Morphine Sulfate (Morphine Sulfate) 2 mg IVPUSH Q4H PRN PRN Reason: PAIN LEVEL 6-10 Last Admin: 06/12/18 15:51 Dose: 2 mg Nifedipine (Procardia Xl -) 60 mg PO BID [facility] Last Admin: 06/13/18 09:03 Dose: 60 mg Sevelamer Carbonate (Renvela -) 800 mg PO TIDCM [facility] Last Admin: 06/13/18 08:13 Dose: 800 mg IMAGING: EKG: NORMAL SINUS RHYTHM, NONSPECIFIC T WAVE ABNORMALITY Left Foot XRay: No fracture or osteomyelitis. CT ANGIOGRAM OF THE ABDOMEN AND PELVIS WITH BILATERAL LOWER EXTREMITY RUNOFFS: Predominant distal arterial disease suggestive of diabetic and/or nephrogenic vasculopathy. Predominant disease in the distal left popliteal and infrapopliteal arteries demonstrating interval improvement in flow and mild improvement in the degree of stenosis described on the prior exam, as described above. Essential flow to the foot is provided by the MIGUELITO. Peroneal artery is occluded and SKIVING MACHINE OPERATOR demonstrate short segmental occlusions with reconstitution of flow in the plantar artery which demonstrate robust flow. Flow is seen in the digital arteries. Predominant right infrapopliteal disease, as described above, grossly unchanged since the prior exam. Subcutaneous edema with mesenteric stranding possibly due to third spacing/anasarca. Under distended urinary bladder with suggestion of wall thickening. Correlate clinically for cystitis. ASSESSMENT/PLAN: 68 y/o M w/ PMHx CAD, [place], PVD, ESRD on HD (MWF), HTN, admitted for gangrene/ osteomyelitis of the left foot on 05/16, now presents with worsening pain and discoloration of the left 4th toe and blackening and pain of the 3rd toe 1. Gangrene of L 3rd and 4th toes -POD#2 s/p Amputation of Left toes 2-4 -Remains AFebrile, WBC Trending down -CTA noted as above -EKG done (06/10) revealed new T-wave inversions in lateral leads, case discussed with Dr. Wilkins--Pt is cleared to undergo LE surgery -Dr. Paiz consulted: Pt cleared from a vascular standpoint for podiatry intervention. -ID (Dr. Reyez) consulted: Vanc/Zosyn (Started on 06/05), intermittent vanco dosing based on vanc level -Podiatry (Dr. Garcia) consulted: Amputation on 06/11, Can dc to home if normal WBC count in AM, and follow up in [facility]. Needs post op shoe. 2. ESRD on HD (MWF) -Nephro (Dr. Flaherty) consulted-- Vascular eval to evaluate fistula -cont home Lasix, Sevelamer 3. CAD/PVD -Cont ASA/Plavix 4. HTN -cont home nifedipine, hydralazine 5. anemia -likely of chronic disease 2/2 ESRD -epogen 10,000 6.FEN -PO Fluids -Continue to monitor lytes -Diabetic diet 7. PPx -no heparin at this time per vascular Dispo - D/C pending normal WBC count Visit type - Emergency Visit Emergency Visit: Yes ED Registration Date: 06/05/18 Care time: The patient presented to the Emergency Department on the above date and was hospitalized for further evaluation of their emergent condition. - New Patient This patient is new to me today: No - Critical Care Critical Care patient: No
[2018-06-13] MEDS ORDERED: SODIUM CHLORIDE 250 ML IV PRN (14:47)
--- NOTE | 2018-06-13 14:54 | PN ---
Progress Note, Physician History of Present Illness: Pt seen and examined at bedside. He had bleeding from his access sit. Bleeding is stopped now. - Current Medication List Current Medications: Active Medications Acetaminophen (Tylenol -) 650 mg PO Q4H PRN PRN Reason: PAIN LEVEL 1-5 Aspirin (Ecotrin -) 81 mg PO DAILY [facility] Last Admin: 06/13/18 10:20 Dose: Not Given Atorvastatin Calcium (Lipitor -) 40 mg PO HS [facility] Last Admin: 06/12/18 22:03 Dose: 40 mg Calcitriol (Rocaltrol -) 0.25 mcg PO DAILY [facility] Last Admin: 06/13/18 10:20 Dose: Not Given Clopidogrel Bisulfate (Plavix -) 75 mg PO DAILY [facility] Last Admin: 06/13/18 10:20 Dose: Not Given Epoetin Thomas (Procrit -) 10,000 unit IVPUSH ONCE ONE Stop: 06/13/18 14:48 Furosemide (Lasix -) 40 mg PO DAILY [facility] Last Admin: 06/13/18 10:20 Dose: Not Given Hydralazine HCl (Apresoline -) 100 mg PO TID [facility] Last Admin: 06/13/18 14:41 Dose: Not Given Piperacillin Sod/Tazobactam (Sod 2.25 gm/ Dextrose) 50 mls @ 100 mls/hr IVPB Q8H-IV [facility]; Protocol Last Admin: 06/13/18 10:20 Dose: Not Given Sodium Chloride (Normal Saline -) 250 mls @ 3,000 mls/hr IV PRN PRN PRN Reason: Hypotension during Dialysis Stop: 06/13/18 14:48 Insulin Aspart (Novolog Vial Sliding Scale -) 1 vial SQ TIDAC [facility]; Protocol Last Admin: 06/13/18 11:48 Dose: Not Given Morphine Sulfate (Morphine Sulfate) 2 mg IVPUSH Q4H PRN PRN Reason: PAIN LEVEL 6-10 Last Admin: 06/12/18 15:51 Dose: 2 mg Nifedipine (Procardia Xl -) 60 mg PO BID [facility] Last Admin: 06/13/18 09:03 Dose: 60 mg Sevelamer Carbonate (Renvela -) 800 mg PO TIDCM [facility] Last Admin: 06/13/18 13:35 Dose: Not Given - Objective Vital Signs: Vital Signs Temperature 98.4 F 09/28/18 05:30 Pulse Rate 64 06/13/18 05:30 Respiratory Rate 20 06/12/18 21:00 Blood Pressure 136/61 06/13/18 05:30 O2 Sat by Pulse Oximetry (%) 95 06/12/18 21:00 Constitutional: Yes: Calm Eyes: Yes: Conjunctiva Clear HENT: Yes: Atraumatic Neck: Yes: Supple Cardiovascular: Yes: S1, S2 Respiratory: Yes: CTA Bilaterally Gastrointestinal: Yes: Soft Genitourinary: Yes: WNL Musculoskeletal: Yes: WNL Extremities: Yes: Other (dried blood on fistula dressing) Edema: No Wound/Incision: Yes: Dressing Dry and Intact Labs: CBC, BMP 06/13/18 07:00 06/13/18 07:00 INR, PTT INR 1.09 (0.83-1.09) 06/06/18 06:30 Problem List - Problems (1) ESRD (end stage renal disease) Code(s): N18.6 - END STAGE RENAL DISEASE (2) Gangrene Code(s): I96 - GANGRENE, NOT ELSEWHERE CLASSIFIED (3) PAD (peripheral artery disease) Code(s): I73.9 - PERIPHERAL VASCULAR DISEASE, UNSPECIFIED Assessment/Plan Current Medications Generic Name Dose Route Start Last Admin Trade Name Freq PRN Reason Stop Dose Admin Acetaminophen 650 mg 06/11/18 14:53 Tylenol - PO Q4H PRN PAIN LEVEL 1-5 Aspirin 81 mg 06/12/18 10:00 06/13/18 10:20 Ecotrin - PO Not Given DAILY [facility] Atorvastatin Calcium 40 mg 06/11/18 22:00 06/12/18 22:03 Lipitor - PO 40 mg HS [facility] Administration Calcitriol 0.25 mcg 06/12/18 10:00 06/13/18 10:20 Rocaltrol - PO Not Given DAILY [facility] Clopidogrel Bisulfate 75 mg 06/12/18 10:00 06/13/18 10:20 Plavix - PO Not Given DAILY [facility] Epoetin Thomas 10,000 unit 06/13/18 14:47 Procrit - IVPUSH 06/13/18 14:48 ONCE ONE Furosemide 40 mg 06/12/18 10:00 06/13/18 10:20 Lasix - PO Not Given DAILY [facility] Hydralazine HCl 100 mg 06/11/18 22:00 06/13/18 14:41 Apresoline - PO Not Given TID [facility] Piperacillin Sod/Tazobactam 50 mls @ 100 mls/hr 06/11/18 18:00 06/13/18 10:20 Sod 2.25 gm/ Dextrose IVPB Not Given Q8H-IV [facility] Protocol Sodium Chloride 250 mls @ 3,000 mls/hr 06/13/18 14:47 Normal Saline - IV 06/13/18 14:48 PRN PRN Hypotension during Dialysis Insulin Aspart 1 vial 06/11/18 16:30 06/13/18 11:48 Novolog Vial Sliding Scale - SQ Not Given TIDAC [facility] Protocol Morphine Sulfate 2 mg 06/11/18 14:53 06/12/18 15:51 Morphine Sulfate IVPUSH 2 mg Q4H PRN Administration PAIN LEVEL 6-10 Nifedipine 60 mg 06/11/18 22:00 06/13/18 09:03 Procardia Xl - PO 60 mg BID [facility] Administration Sevelamer Carbonate 800 mg 06/11/18 17:30 06/13/18 13:35 Renvela - PO Not Given TIDCM [facility] Impression 1. ESRD on HD 2. anemia 3. DM 4. HTN 5. toe infection/gangrene 6. PVD Plan - vascular eval to evaluate fistula - HD today - cont wound care - renal diet - monitor BP - avf 3:00 400 abf - epogen 10,000 for anemia
--- NOTE | 2018-06-13 14:55 | PN ---
Teaching Attending Note Name of Resident: Linda Agrawal ATTENDING PHYSICIAN STATEMENT I saw and evaluated the patient. I reviewed the resident's note and discussed the case with the resident. I agree with the resident's findings and plan as documented. SUBJECTIVE: Patient has no new complain. OBJECTIVE: Vital Signs Temperature 98.4 F 06/13/18 05:30 Pulse Rate 64 06/13/18 05:30 Respiratory Rate 20 06/12/18 21:00 Blood Pressure 136/61 06/13/18 05:30 O2 Sat by Pulse Oximetry (%) 95 06/12/18 21:00 GENERAL: The patient is awake, alert, and fully oriented, in no acute distress. HEAD: NCAT; EYES: PERRL, EOMI ENT: oropharynx clear without exudates, MMM NECK: supple, No JVD LUNGS: Breath sounds equal, clear to auscultation bilaterally, no wheezes HEART: Regular rate and rhythm, S1, S2, Systolic murmur at the LLSB ABDOMEN: Soft, nontender, nondistended, normoactive bowel sounds, no guarding EXTREMITIES: 2+ pulses, no edema. POD #2 s/p amputation of left 3 and 4 toes. NEUROLOGICAL: Cranial nerves II through XII grossly intact. Normal speech. gait not observed. CBCD WBC 14.7 K/mm3 (4.0-10.0) H 06/13/18 07:00 RBC 2.88 M/mm3 (4.00-5.60) L 06/13/18 07:00 Hgb 9.2 GM/dL (11.7-16.9) L 06/13/18 07:00 Hct 28.5 % (35.4-49) L 06/13/18 07:00 MCV 99.2 fl (80-96) H 06/13/18 07:00 MCHC 32.4 g/dl (32.0-35.9) 06/13/18 07:00 RDW 16.4 % (11.9-15.9) H 06/13/18 07:00 Plt Count 330 K/MM3 (134-434) 06/13/18 07:00 MPV 8.1 fl (7.5-11.1) 06/13/18 07:00 CMP Sodium 132 mmol/L (136-145) L 06/13/18 07:00 Potassium 4.0 mmol/L (3.5-5.1) 06/13/18 07:00 Chloride 94 mmol/L (98-107) L 06/13/18 07:00 Carbon Dioxide 28 mmol/L (21-32) 06/13/18 07:00 Anion Gap 10 MMOL/L (8-16) 06/13/18 07:00 BUN 29 mg/dL (7-18) H 06/13/18 07:00 Creatinine 7.4 mg/dL (0.55-1.3) H* 06/13/18 07:00 Creat Clearance w eGFR 7.33 (>60) 06/13/18 07:00 Random Glucose 116 mg/dL (74-106) H 06/13/18 07:00 Calcium 9.5 mg/dL (8.5-10.1) 06/13/18 07:00 Total Bilirubin 0.7 mg/dL (0.2-1) 06/13/18 07:00 AST 23 U/L (15-37) 06/13/18 07:00 ALT 11 U/L (13-61) L 06/13/18 07:00 Alkaline Phosphatase 218 U/L (45-117) H 06/13/18 07:00 Total Protein 7.7 g/dl (6.4-8.2) 06/13/18 07:00 Albumin 2.5 g/dl (3.4-5.0) L 06/13/18 07:00 Current Medications Generic Name Dose Route Start Last Admin Trade Name Freq PRN Reason Stop Dose Admin Acetaminophen 650 mg 06/11/18 14:53 Tylenol - PO Q4H PRN PAIN LEVEL 1-5 Aspirin 81 mg 06/12/18 10:00 06/13/18 10:20 Ecotrin - PO Not Given DAILY [facility] Atorvastatin Calcium 40 mg 06/11/18 22:00 06/12/18 22:03 Lipitor - PO 40 mg HS [facility] Administration Calcitriol 0.25 mcg 06/12/18 10:00 06/13/18 10:20 Rocaltrol - PO Not Given DAILY [facility] Clopidogrel Bisulfate 75 mg 06/12/18 10:00 06/13/18 10:20 Plavix - PO Not Given DAILY [facility] Epoetin Thomas 10,000 unit 06/13/18 14:47 Procrit - IVPUSH 09/28/18 14:48 ONCE ONE Furosemide 40 mg 06/12/18 10:00 06/13/18 10:20 Lasix - PO Not Given DAILY [facility] Hydralazine HCl 100 mg 06/11/18 22:00 06/13/18 14:41 Apresoline - PO Not Given TID [facility] Piperacillin Sod/Tazobactam 50 mls @ 100 mls/hr 06/11/18 18:00 06/13/18 10:20 Sod 2.25 gm/ Dextrose IVPB Not Given Q8H-IV [facility] Protocol Sodium Chloride 250 mls @ 3,000 mls/hr 06/13/18 14:47 Normal Saline - IV 06/13/18 14:48 PRN PRN Hypotension during Dialysis Insulin Aspart 1 vial 06/11/18 16:30 06/13/18 11:48 Novolog Vial Sliding Scale - SQ Not Given TIDAC [facility] Protocol Morphine Sulfate 2 mg 06/11/18 14:53 06/12/18 15:51 Morphine Sulfate IVPUSH 2 mg Q4H PRN Administration PAIN LEVEL 6-10 Nifedipine 60 mg 06/11/18 22:00 06/13/18 09:03 Procardia Xl - PO 60 mg BID [facility] Administration Sevelamer Carbonate 800 mg 06/11/18 17:30 06/13/18 13:35 Renvela - PO Not Given TIDCM [facility] Home Medications Medication Instructions Recorded Sevelamer HCl [Renagel] 800 mg PO TIDCM 05/16/18 Aspirin Coated [Ecotrin -] 81 mg PO DAILY #30 tablet.ec 05/27/18 Atorvastatin Ca [Lipitor] 20 mg PO HS #30 tablet 05/27/18 Calcitriol [Calcitriol -] 0.25 mcg PO DAILY #30 capsule 05/27/18 Clopidogrel Bisulfate [Plavix -] 75 mg PO DAILY #30 tablet 05/27/18 Furosemide [Lasix -] 40 mg PO DAILY #30 tablet 05/27/18 Hydralazine HCl 100 mg PO TID #90 tablet 05/27/18 Nifedipine ER [Procardia XL -] 60 mg PO BID #60 tab.er.24 05/27/18 Acetaminophen [Tylenol] 650 mg PO QID PRN 06/05/18 Microbiology 06/05/18 11:10 Blood - Peripheral Venous Blood Culture - Final NO GROWTH AFTER 5 DAYS INCUBATION 06/05/18 11:10 Blood - Peripheral Venous Blood Culture - Final NO GROWTH AFTER 5 DAYS INCUBATION ASSESSMENT AND PLAN: Patient is a 68yo male with PMHx of CAD, recent AL, PVD, ESRD on HD, HTN, HLP, Hep B , DM, and recent admission for L 4th toe gangrene and OM, s/p angiogram, atherectomy and angioplasty, who presented with gangrenous 3rd and 4th toes. # POD #3 amputation of gangrenous left 3rd and 4th toes. On IV vanco and zosyn continue, vanco level noted , on the case. cont ASA and plavix, statin. Patient was cleared by Dr. Carrizales since no new changes On EKG # H/o HTN: continue Nifedipine . # H/O ESRD: on HD ,on lasix , sevelamir DVT PX: SCds. heparin
[2018-06-13] MEDS ORDERED: EPOETIN ALFA 10,000 UNIT/1 ML VIAL IVPUSH ONE (16:00)
[2018-06-13 19:26] LABS: CREATININE 2.9 mg/dL (0.55-1.3)
[2018-06-13] MEDS ORDERED: INSULIN (NOVOLOG) ASPART 100 UNITS/ML 10ML VIAL ONE (20:58)
[2018-06-13] MEDS: MORPHINE SULFATE 2 MG/ML VIAL IVPUSH PRN (21:12)
[2018-06-13] MEDS: ATORVASTATIN CA 40 MG TABLET (FP) PO SCH (21:12)
[2018-06-14] MEDS ORDERED: PIPERACILLIN/TAZOBACTAM 2.25 GM VIAL IVPB ONE ×3 (01:55→17:03)
[2018-06-14] MEDS ORDERED: DEXTROSE 5%-WATER - 50 ML IVPB ONE ×3 (01:55→17:03)
[2018-06-14] MEDS: ACETAMINOPHEN 325 MG TABLET (FP) PO PRN (01:57)
[2018-06-14] MEDS: PIPERACILLIN/TAZOB 2.25 GM 2.25 GM in DEXTROSE 5%-WATER - 50 ML IVPB SCH ×3 (01:57→17:06)
[2018-06-14] MEDS: hydrALAZINE HCL 50 MG TABLET (FP) PO SCH ×3 (05:58→22:26)
[2018-06-14] MEDS: INSULIN SLIDING SCALE (NOVOLOG) 1 VIAL SQ SCH ×3 (06:37→16:02)
[2018-06-14] MEDS ORDERED: INSULIN (NOVOLOG) ASPART 100 UNITS/ML 10ML VIAL ONE (07:03)
--- NOTE | 2018-06-14 09:01 | PN ---
Progress Note (short form) - Note Progress Note: Patient seen in bed. POD#3. Patient has no pain. +less bloody dressing, wbc=14.7 yesterday not done today yet, +sutures intact, normal post op Pain improved Dressing reapplied with betadine gauze. WBC today. If wbc normal in am can be dc to home and follow up in [facility]. Needs post op shoe. Betadine dressing change daily.
[2018-06-14] MEDS: CALCITRIOL 0.25 MCG CAPSULE (FP) PO SCH (09:41)
[2018-06-14] MEDS: FUROSEMIDE 40 MG TABLET (FP) PO SCH (09:41)
[2018-06-14] MEDS: SEVELAMER CARBONATE 800 MG TAB (FP) PO SCH ×3 (09:41→17:06)
[2018-06-14] MEDS: ASPIRIN COATED 81 MG TABLET.EC PO SCH (09:41)
[2018-06-14] MEDS: MORPHINE SULFATE 2 MG/ML VIAL IVPUSH PRN ×2 (09:41→17:27)
[2018-06-14] MEDS: CLOPIDOGREL BISULFATE 75 MG TABLET (FP) PO SCH (09:41)
[2018-06-14 09:47] LABS: BASO % 0.5 % (0-2.0); EOS % 1.1 % (0-4.5); HEMOGLOBIN 9.2 GM/dL (11.7-16.9); LYMPH % 4.7 % (8-40); MCH 32.3 pg (25.7-33.7); MCHC 32.8 g/dl (32.0-35.9); MEAN CELL VOLUME 98.6 fl (80-96); MEAN PLT VOLUME 7.3 fl (7.5-11.1); MONO % 8.9 % (3.8-10.2); NEUT % 84.8 % (42.8-82.8); PLATELET COUNT 336 K/MM3 (134-434); RBC 2.84 M/mm3 (4.00-5.60); RDW 16.6 % (11.9-15.9); WHITE BLOOD COUNT 12.6 K/mm3 (4.0-10.0)
[2018-06-14] MEDS: NIFEdipine E.R 60 MG TABLET (UD) PO SCH ×2 (09:47→22:49)
--- NOTE | 2018-06-14 12:49 | PN ---
Progress Note, Physician Chief Complaint: Pt alert; c/o pain in left foot intermittently; usually relieved by pain medications. History of Present Illness: This is a 68 year-old male (b. [place]), with HTN, NIDDM, ESRD on HD (M,W,F), CAD (s/p "infarct" about one year ago--treated at [facility]; never had coronary angiogram), diastolic CHF, and peripheral arterial disease/known left 4th toe osteomyelitis and gangrene, [facility], who presents with worsening, "stabbing", intermittent pain since last night. He notes that his left 4th toe is darker and his 3rd toe is black, which is completely new according to both him and his . He denies fevers/chills or any other symptoms. Vital signs on arrival are unremarkable. - Current Medication List Current Medications: Active Medications Acetaminophen (Tylenol -) 650 mg PO Q4H PRN PRN Reason: PAIN LEVEL 1-5 Last Admin: 06/14/18 01:57 Dose: 650 mg Aspirin (Ecotrin -) 81 mg PO DAILY [facility] Last Admin: 06/14/18 09:41 Dose: 81 mg Atorvastatin Calcium (Lipitor -) 40 mg PO HS [facility] Last Admin: 06/13/18 21:12 Dose: 40 mg Calcitriol (Rocaltrol -) 0.25 mcg PO DAILY [facility] Last Admin: 06/14/18 09:41 Dose: 0.25 mcg Clopidogrel Bisulfate (Plavix -) 75 mg PO DAILY [facility] Last Admin: 06/14/18 09:41 Dose: 75 mg Furosemide (Lasix -) 40 mg PO DAILY [facility] Last Admin: 06/14/18 09:41 Dose: 40 mg Hydralazine HCl (Apresoline -) 100 mg PO TID [facility] Last Admin: 06/14/18 05:58 Dose: 100 mg Piperacillin Sod/Tazobactam (Sod 2.25 gm/ Dextrose) 50 mls @ 100 mls/hr IVPB Q8H-IV [facility]; Protocol Last Admin: 06/14/18 09:42 Dose: 100 mls/hr Insulin Aspart (Novolog Vial Sliding Scale -) 1 vial SQ TIDAC [facility]; Protocol Last Admin: 06/14/18 11:23 Dose: 2 units Morphine Sulfate (Morphine Sulfate) 2 mg IVPUSH Q4H PRN PRN Reason: PAIN LEVEL 6-10 Last Admin: 06/14/18 09:41 Dose: 2 mg Nifedipine (Procardia Xl -) 60 mg PO BID [facility] Last Admin: 06/14/18 09:47 Dose: 60 mg Sevelamer Carbonate (Renvela -) 800 mg PO TIDCM [facility] Last Admin: 06/14/18 09:41 Dose: 800 mg - Objective Vital Signs: Vital Signs Temperature 98.4 F 06/14/18 10:00 Pulse Rate 64 06/14/18 10:00 Respiratory Rate 20 06/14/18 10:00 Blood Pressure 153/67 06/14/18 10:00 O2 Sat by Pulse Oximetry (%) 94 L 06/14/18 10:00 Constitutional: Yes: Calm Eyes: Yes: WNL HENT: Yes: WNL Neck: Yes: WNL Cardiovascular: Yes: WNL Respiratory: Yes: WNL Gastrointestinal: Yes: WNL ...Rectal Exam: Yes: Deferred Genitourinary: No: Anuria Breast(s): Yes: WNL Musculoskeletal: Yes: Joint Stiffness, Muscle Pain, Muscle Weakness Extremities: Yes: Cool Edema: No Peripheral Pulses WNL: No Peripheral Pulses: Left Doralis Pedis: 1+, Right Dorsalis Pedis: 1+ Integumentary: Yes: Incision Wound/Incision: Yes: Dressing Dry and Intact Neurological: Yes: Alert, Oriented, Unsteady Gait, Weakness Psychiatric: Yes: WNL Labs: CBC, BMP 06/14/18 09:40 06/13/18 18:05 INR, PTT INR 1.09 (0.83-1.09) 06/06/18 06:30 Problem List - Problems (1) ESRD (end stage renal disease) Assessment/Plan: on hemodialysis 3x/week Code(s): N18.6 - END STAGE RENAL DISEASE (2) Anemia Code(s): D64.9 - ANEMIA, UNSPECIFIED Qualifiers: Vitamin B12 deficiency anemia type: other B12 deficiency (3) PAD (peripheral artery disease) Assessment/Plan: gangrenous toes-->surgery Code(s): I73.9 - PERIPHERAL VASCULAR DISEASE, UNSPECIFIED (4) AV fistula Code(s): I77.0 - ARTERIOVENOUS FISTULA, ACQUIRED (5) Diabetes Code(s): E11.9 - TYPE 2 DIABETES MELLITUS WITHOUT COMPLICATIONS Qualifiers: Diabetes mellitus type: type 2 Diabetes mellitus long term care administrator insulin use: without long term care administrator use Diabetes mellitus complication detail: with chronic kidney disease Chronic kidney disease stage: stage 5, not on chronic dialysis (6) Diastolic CHF Code(s): I50.30 - UNSPECIFIED DIASTOLIC (CONGESTIVE) HEART FAILURE (7) [place] cardiac risk >20% in next 10 years Assessment/Plan: The importance of aggressive risk-factor control was discussed in detail with pt and his daughter. Strong family hx DM. Pt is a candidate for cardiac rehabilitation (OR in the past year; mild ischemia on recent stress MIBI). Lower LDL even further with increase statin dose, diet, exercise. Code(s): Z91.89 - OTH PERSONAL RISK FACTORS, NOT ELSEWHERE CLASSIFIED (8) Hypertension Code(s): I10 - ESSENTIAL (PRIMARY) HYPERTENSION Qualifiers: (9) Pre-operative cardiovascular examination Assessment/Plan: Pt A&Ox3; daughter at bedside, and provides confirmation of hx. Until a month ago, when left leg discomfort at site of gangrene radiated throughout leg and made walking painful, he had been walking a few blocks and taking stairs almost daily without chest pain or dyspnea. Reportedly had "small infarct" a year ago (treated at [facility];; denies having had to undergo coronary angiogram). Stress MIBI 05/2018: small area of mildly intense periinfarct inferoapical ischemia. ECHO 05/2018: normal LVEF; moderate TR; mild-moderate OK. EKG: NSR; nonspecific T wave abnormalities (EKG without significant change from prior EKGs as far back as 2017). From a cardiac perspecitve, pt was cleared to undergo LE surgery for gangrenous toes; doing well post-op. Code(s): Z01.810 - ENCOUNTER FOR PREPROCEDURAL CARDIOVASCULAR EXAMINATION
--- NOTE | 2018-06-14 12:57 | PN ---
Progress Note, Physician Chief Complaint: Pt alert; c/o pain in left foot intermittently; usually relieved by pain medications. He exacerbated the pain when he got up on his own last night to go to the bathroom Pt's is at bedside. History of Present Illness: This is a 68 year-old male (b. [place]), with HTN, NIDDM, ESRD on HD (M,W,F), CAD (s/p "infarct" about one year ago--treated at [facility]; never had coronary angiogram), diastolic CHF, and peripheral arterial disease/known left 4th toe osteomyelitis and gangrene, [facility], who presents with worsening, "stabbing", intermittent pain since last night. He notes that his left 4th toe is darker and his 3rd toe is black, which is completely new according to both him and his . He denies fevers/chills or any other symptoms. Vital signs on arrival are unremarkable. - Current Medication List Current Medications: Active Medications Acetaminophen (Tylenol -) 650 mg PO Q4H PRN PRN Reason: PAIN LEVEL 1-5 Last Admin: 06/14/18 01:57 Dose: 650 mg Aspirin (Ecotrin -) 81 mg PO DAILY [facility] Last Admin: 06/14/18 09:41 Dose: 81 mg Atorvastatin Calcium (Lipitor -) 40 mg PO HS [facility] Last Admin: 06/13/18 21:12 Dose: 40 mg Calcitriol (Rocaltrol -) 0.25 mcg PO DAILY [facility] Last Admin: 06/14/18 09:41 Dose: 0.25 mcg Clopidogrel Bisulfate (Plavix -) 75 mg PO DAILY [facility] Last Admin: 06/14/18 09:41 Dose: 75 mg Furosemide (Lasix -) 40 mg PO DAILY [facility] Last Admin: 06/14/18 09:41 Dose: 40 mg Hydralazine HCl (Apresoline -) 100 mg PO TID [facility] Last Admin: 06/14/18 05:58 Dose: 100 mg Piperacillin Sod/Tazobactam (Sod 2.25 gm/ Dextrose) 50 mls @ 100 mls/hr IVPB Q8H-IV [facility]; Protocol Last Admin: 06/14/18 09:42 Dose: 100 mls/hr Insulin Aspart (Novolog Vial Sliding Scale -) 1 vial SQ TIDAC [facility]; Protocol Last Admin: 06/14/18 11:23 Dose: 2 units Morphine Sulfate (Morphine Sulfate) 2 mg IVPUSH Q4H PRN PRN Reason: PAIN LEVEL 6-10 Last Admin: 06/14/18 09:41 Dose: 2 mg Nifedipine (Procardia Xl -) 60 mg PO BID [facility] Last Admin: 06/14/18 09:47 Dose: 60 mg Sevelamer Carbonate (Renvela -) 800 mg PO TIDCM [facility] Last Admin: 06/14/18 12:51 Dose: 800 mg - Objective Vital Signs: Vital Signs Temperature 98.4 F 06/14/18 10:00 Pulse Rate 64 06/14/18 10:00 Respiratory Rate 20 06/14/18 10:00 Blood Pressure 153/67 06/14/18 10:00 O2 Sat by Pulse Oximetry (%) 94 L 06/14/18 10:00 Constitutional: Yes: Anxious Eyes: Yes: WNL HENT: Yes: WNL Neck: Yes: WNL Cardiovascular: Yes: S1, S2, S4 Respiratory: Yes: WNL Gastrointestinal: Yes: WNL ...Rectal Exam: Yes: Deferred Genitourinary: No: Anuria Breast(s): Yes: WNL Musculoskeletal: Yes: Muscle Weakness Extremities: Yes: Amputation, Cool Edema: No Peripheral Pulses WNL: No Peripheral Pulses: Left Doralis Pedis: 1+, Right Dorsalis Pedis: 1+ Integumentary: Yes: Incision, Venous Stasis Changes Wound/Incision: Yes: Dressing Dry and Intact (changed today) Psychiatric: Yes: WNL Labs: CBC, BMP 06/14/18 09:40 06/13/18 18:05 INR, PTT INR 1.09 (0.83-1.09) 06/06/18 06:30 Abnormal Lab Results 06/13/18 06/14/18 18:05 09:40 WBC 12.6 H RBC 2.84 L Hgb 9.2 L Hct 28.0 L MCV 98.6 H RDW 16.6 H MPV 7.3 L Absolute Neuts (auto) 10.7 H Neutrophils % 84.8 H Lymphocytes % 4.7 L D Creatinine 2.9 H Problem List - Problems (1) ESRD (end stage renal disease) Code(s): N18.6 - END STAGE RENAL DISEASE (2) Anemia Code(s): D64.9 - ANEMIA, UNSPECIFIED Qualifiers: Vitamin B12 deficiency anemia type: other B12 deficiency (3) PAD (peripheral artery disease) Code(s): I73.9 - PERIPHERAL VASCULAR DISEASE, UNSPECIFIED (4) AV fistula Code(s): I77.0 - ARTERIOVENOUS FISTULA, ACQUIRED (5) Diabetes Code(s): E11.9 - TYPE 2 DIABETES MELLITUS WITHOUT COMPLICATIONS Qualifiers: Diabetes mellitus type: type 2 Diabetes mellitus halfway insulin use: without halfway use Diabetes mellitus complication detail: with chronic kidney disease Chronic kidney disease stage: stage 5, not on chronic dialysis (6) Diastolic CHF Code(s): I50.30 - UNSPECIFIED DIASTOLIC (CONGESTIVE) HEART FAILURE (7) [place] cardiac risk >20% in next 10 years Assessment/Plan: The importance of aggressive risk-factor control was discussed in detail with pt and his daughter. Strong family hx DM. Pt is a candidate for cardiac rehabilitation (MS in the past year; mild ischemia on recent stress MIBI). Lower LDL even further with increase statin dose, diet, exercise. Code(s): Z91.89 - OTH PERSONAL RISK FACTORS, NOT ELSEWHERE CLASSIFIED (8) Hypertension Assessment/Plan: On hydralaziine, nifedipine, furosemide. F/u BP serially.Consider adding ACEI or ARB. Code(s): I10 - ESSENTIAL (PRIMARY) HYPERTENSION Qualifiers: (9) Pre-operative cardiovascular examination Assessment/Plan: Pt A&Ox3; daughter at bedside, and provides confirmation of hx. Until a month ago, when left leg discomfort at site of gangrene radiated throughout leg and made walking painful, he had been walking a few blocks and taking stairs almost daily without chest pain or dyspnea. Reportedly had "small infarct" a year ago (treated at [facility]; denies having had to undergo coronary angiogram). Stress MIBI 05/2018: small area of mildly intense periinfarct inferoapical ischemia. ECHO 05/2018: normal LVEF; moderate TR; mild-moderate [place]. EKG: NSR; nonspecific T wave abnormalities (EKG without significant change from prior EKGs as far back as 2016). From a cardiac perspecitve, pt was cleared to undergo LE surgery for gangrenous toes; doing well post-op. Code(s): Z01.810 - ENCOUNTER FOR PREPROCEDURAL CARDIOVASCULAR EXAMINATION
--- NOTE | 2018-06-14 15:04 | PN ---
Progress Note (short form) - Note Progress Note: Patient is better, no new complains. Vital Signs Temperature 98.4 F 06/14/18 10:00 Pulse Rate 66 06/14/18 16:29 Respiratory Rate 20 06/14/18 10:00 Blood Pressure 152/70 06/14/18 16:29 O2 Sat by Pulse Oximetry (%) 94 L 06/14/18 10:00 GENERAL: The patient is awake, alert, and fully oriented, in no acute distress. HEAD: NCAT; EYES: PERRL, EOMI ENT: oropharynx clear without exudates, MMM NECK: supple, No JVD LUNGS: Breath sounds equal, clear to auscultation bilaterally, no wheezes HEART: Regular rate and rhythm, S1, S2, Systolic murmur at the LLSB ABDOMEN: Soft, nontender, nondistended, normoactive bowel sounds, no guarding EXTREMITIES: 2+ pulses, no edema. POD #1 s/p amputation of left 3 and 4 toes. NEUROLOGICAL: Cranial nerves II through XII grossly intact. Normal speech. gait not observed. WBC 12.6 K/mm3 (4.0-10.0) H 06/14/18 09:40 RBC 2.84 M/mm3 (4.00-5.60) L 06/14/18 09:40 Hgb 9.2 GM/dL (11.7-16.9) L 06/14/18 09:40 Hct 28.0 % (35.4-49) L 06/14/18 09:40 MCV 98.6 fl (80-96) H 06/14/18 09:40 MCHC 32.8 g/dl (32.0-35.9) 06/14/18 09:40 RDW 16.6 % (11.9-15.9) H 06/14/18 09:40 Plt Count 336 K/MM3 (134-434) 06/14/18 09:40 MPV 7.3 fl (7.5-11.1) L 06/14/18 09:40 CMP Sodium 132 mmol/L (136-145) L 06/13/18 07:00 Potassium 4.0 mmol/L (3.5-5.1) 06/13/18 07:00 Chloride 94 mmol/L (98-107) L 06/13/18 07:00 Carbon Dioxide 28 mmol/L (21-32) 06/13/18 07:00 Anion Gap 10 MMOL/L (8-16) 06/13/18 07:00 BUN 9 mg/dL (7-18) 06/13/18 18:05 Creatinine 2.9 mg/dL (0.55-1.3) H 06/13/18 18:05 Creat Clearance w eGFR 7.33 (>60) 06/13/18 07:00 Random Glucose 116 mg/dL (74-106) H 06/13/18 07:00 Calcium 9.5 mg/dL (8.5-10.1) 06/13/18 07:00 Total Bilirubin 0.7 mg/dL (0.2-1) 06/13/18 07:00 AST 23 U/L (15-37) 06/13/18 07:00 ALT 11 U/L (13-61) L 06/13/18 07:00 Alkaline Phosphatase 218 U/L (45-117) H 06/13/18 07:00 Total Protein 7.7 g/dl (6.4-8.2) 06/13/18 07:00 Albumin 2.5 g/dl (3.4-5.0) L 06/13/18 07:00 Current Medications Generic Name Dose Route Start Last Admin Trade Name Donna PRN Reason Stop Dose Admin Acetaminophen 650 mg 06/11/18 14:53 06/14/18 01:57 Tylenol - PO 650 mg Q4H PRN Administration PAIN LEVEL 1-5 Aspirin 81 mg 06/12/18 10:00 06/14/18 09:41 Ecotrin - PO 81 mg DAILY [facility] Administration Atorvastatin Calcium 40 mg 06/11/18 22:00 06/13/18 21:12 Lipitor - PO 40 mg HS [facility] Administration Calcitriol 0.25 mcg 06/12/18 10:00 06/14/18 09:41 Rocaltrol - PO 0.25 mcg DAILY [facility] Administration Clopidogrel Bisulfate 75 mg 06/12/18 10:00 06/14/18 09:41 Plavix - PO 75 mg DAILY [facility] Administration Furosemide 40 mg 06/12/18 10:00 06/14/18 09:41 Lasix - PO 40 mg DAILY [facility] Administration Hydralazine HCl 100 mg 06/11/18 22:00 06/14/18 14:32 Apresoline - PO 100 mg TID [facility] Administration Piperacillin Sod/Tazobactam 50 mls @ 100 mls/hr 06/11/18 18:00 06/14/18 09:42 Sod 2.25 gm/ Dextrose IVPB 100 mls/hr Q8H-IV [facility] Administration Protocol Insulin Aspart 1 vial 06/11/18 16:30 06/14/18 11:23 Novolog Vial Sliding Scale - SQ 2 units TIDAC [facility] Administration Protocol Morphine Sulfate 2 mg 06/11/18 14:53 06/14/18 09:41 Morphine Sulfate IVPUSH 2 mg Q4H PRN Administration PAIN LEVEL 6-10 Nifedipine 60 mg 06/11/18 22:00 06/14/18 09:47 Procardia Xl - PO 60 mg BID [facility] Administration Sevelamer Carbonate 800 mg 06/11/18 17:30 06/14/18 12:51 Renvela - PO 800 mg TIDCM [facility] Administration Home Medications Medication Instructions Recorded Sevelamer HCl [Renagel] 800 mg PO TIDCM 05/16/18 Aspirin Coated [Ecotrin -] 81 mg PO DAILY #30 tablet.ec 05/27/18 Atorvastatin Ca [Lipitor] 20 mg PO HS #30 tablet 05/27/18 Calcitriol [Calcitriol -] 0.25 mcg PO DAILY #30 capsule 05/27/18 Clopidogrel Bisulfate [Plavix -] 75 mg PO DAILY #30 tablet 05/27/18 Furosemide [Lasix -] 40 mg PO DAILY #30 tablet 05/27/18 Hydralazine HCl 100 mg PO TID #90 tablet 05/27/18 Nifedipine ER [Procardia XL -] 60 mg PO BID #60 tab.er.24 05/27/18 Acetaminophen [Tylenol] 650 mg PO QID PRN 06/05/18 06/05/18 11:10 Blood - Peripheral Venous Blood Culture - Final NO GROWTH AFTER 5 DAYS INCUBATION 06/05/18 11:10 Blood - Peripheral Venous Blood Culture - Final NO GROWTH AFTER 5 DAYS INCUBATION ASSESSMENT AND PLAN: Patient is a 68yo male with PMHx of CAD, recent IA, PVD, ESRD on HD, HTN, HLP, Hep B , DM, and recent admission for L 4th toe gangrene and OM, s/p angiogram, atherectomy and angioplasty, who presented with gangrenous 3rd and 4th toes. # POD #4 amputation of gangrenous left 3rd and 4th toes. On IV vanco and zosyn continue, vanco level noted , will check CBC , as per , if WBC is within normal level , patient can be discharged home in am with post op shoe. Betadine dressing change daily. Cont ASA and plavix, statin. #HTN Uncontrolled : continue Nifedipine , Hydralazine, Lasix. Nephro on the case # H/O ESRD: on HD ,on lasix , sevelamir DVT PX: SCds. heparin Visit type - Emergency Visit Emergency Visit: Yes ED Registration Date: 06/05/18 Care time: The patient presented to the Emergency Department on the above date and was hospitalized for further evaluation of their emergent condition. - New Patient This patient is new to me today: No - Critical Care Critical Care patient: No - Discharge Referral Referred to [facility] Med P.C.: No
--- NOTE | 2018-06-14 15:30 | PN ---
Progress Note (short form) - Note Progress Note: covering dr brenda Pitts 1. ESRD on HD 2. anemia 3. DM 4. HTN 5. toe infection/gangrene 6. PVD Current Medications Acetaminophen (Tylenol -) 650 mg PO Q4H PRN PRN Reason: PAIN LEVEL 1-5 Last Admin: 06/14/18 01:57 Dose: 650 mg Aspirin (Ecotrin -) 81 mg PO DAILY [facility] Last Admin: 06/14/18 09:41 Dose: 81 mg Atorvastatin Calcium (Lipitor -) 40 mg PO HS [facility] Last Admin: 06/13/18 21:12 Dose: 40 mg Calcitriol (Rocaltrol -) 0.25 mcg PO DAILY [facility] Last Admin: 06/14/18 09:41 Dose: 0.25 mcg Clopidogrel Bisulfate (Plavix -) 75 mg PO DAILY [facility] Last Admin: 06/14/18 09:41 Dose: 75 mg Furosemide (Lasix -) 40 mg PO DAILY [facility] Last Admin: 06/14/18 09:41 Dose: 40 mg Hydralazine HCl (Apresoline -) 100 mg PO TID [facility] Last Admin: 06/14/18 14:32 Dose: 100 mg Piperacillin Sod/Tazobactam (Sod 2.25 gm/ Dextrose) 50 mls @ 100 mls/hr IVPB Q8H-IV [facility]; Protocol Last Admin: 06/14/18 09:42 Dose: 100 mls/hr Insulin Aspart (Novolog Vial Sliding Scale -) 1 vial SQ TIDAC [facility]; Protocol Last Admin: 06/14/18 11:23 Dose: 2 units Morphine Sulfate (Morphine Sulfate) 2 mg IVPUSH Q4H PRN PRN Reason: PAIN LEVEL 6-10 Last Admin: 06/14/18 09:41 Dose: 2 mg Nifedipine (Procardia Xl -) 60 mg PO BID [facility] Last Admin: 06/14/18 09:47 Dose: 60 mg Sevelamer Carbonate (Renvela -) 800 mg PO TIDCM [facility] Last Admin: 06/14/18 12:51 Dose: 800 mg Last Vital Signs Temp Pulse Resp BP Pulse Ox 98.4 F 68 20 194/78 H 94 L 06/14/18 10:00 06/14/18 14:34 06/14/18 10:00 06/14/18 14:34 06/14/18 10:00 CBC, BMP 06/14/18 09:40 06/13/18 18:05 Plan - vascular eval to evaluate fistula - HD today - cont wound care - renal diet - monitor BP - avf 3:00 400 abf - epogen 10,000 for anemia
[2018-06-14] MEDS ORDERED: PT OWN MED DRAWER 7, Y5N ONE (21:59)
[2018-06-14] MEDS: ATORVASTATIN CA 40 MG TABLET (FP) PO SCH (22:26)
[2018-06-15] MEDS ORDERED: PIPERACILLIN/TAZOBACTAM 2.25 GM VIAL IVPB ONE ×3 (01:44→16:04)
[2018-06-15] MEDS ORDERED: DEXTROSE 5%-WATER - 50 ML IVPB ONE ×3 (01:45→16:05)
[2018-06-15] MEDS: PIPERACILLIN/TAZOB 2.25 GM 2.25 GM in DEXTROSE 5%-WATER - 50 ML IVPB SCH ×3 (01:57→17:05)
[2018-06-15] MEDS: hydrALAZINE HCL 50 MG TABLET (FP) PO SCH ×3 (06:07→22:04)
[2018-06-15] MEDS: INSULIN SLIDING SCALE (NOVOLOG) 1 VIAL SQ SCH ×3 (06:07→16:15)
--- NOTE | 2018-06-15 07:51 | PN ---
Physical Exam: SUBJECTIVE: Patient seen and examined. C/o of pain of LLE . No chest pain, SOB, or palpitations. Is tolerating PO. Pt refused blood work this am. Was requesting draws only during dialysis. White count had been elevated. OBJECTIVE: Vital Signs Period Temp Pulse Resp BP Sys/Cole Pulse Ox Last 24 Hr 98.4 F-98.9 F 55-70 20-20 152-194/67-83 94-94 GENERAL: The patient is awake, alert, and fully oriented, in no acute distress. EYES: PERRL, sclera anicteric, conjunctiva clear ENT: oropharynx clear without exudates, moist mucous membranes. NECK: Trachea midline, full range of motion, supple. LUNGS: Scant basal crackles, no wheezes or accessory muscle use HEART: Regular rate and rhythm, S1, S2, with systolic murmur LLSB, ABDOMEN: Soft, nontender, nondistended, normoactive bowel sounds EXTREMITIES: 2+ pulses, warm, well-perfused, no edema. LLE, with clean external dressing. Sutures intact over transmetartarsal amputation of 2 to 5 digits. slight fluctuance over base of 2nd toe (plantar surface), tender ball of great toe (no clear fluctuance observed. No obvious bleeding or discharge observed. NEUROLOGICAL: Cranial nerves II through XII grossly intact. Normal speech, gait not observed. CBC, BMP 06/15/18 11:10 06/13/18 18:05 Laboratory Results - last 24 hr 06/14/18 06/14/18 06/14/18 09:40 10:27 15:38 WBC 12.6 H RBC 2.84 L Hgb 9.2 L Hct 28.0 L MCV 98.6 H MCH 32.3 MCHC 32.8 RDW 16.6 H Plt Count 336 MPV 7.3 L Absolute Neuts (auto) 10.7 H Neutrophils % 84.8 H Lymphocytes % 4.7 L D Monocytes % 8.9 Eosinophils % 1.1 Basophils % 0.5 Nucleated RBC % 0 POC Glucometer 152 145 06/14/18 06/15/18 22:25 06:06 WBC RBC Hgb Hct MCV MCH MCHC RDW Plt Count MPV Absolute Neuts (auto) Neutrophils % Lymphocytes % Monocytes % Eosinophils % Basophils % Nucleated RBC % POC Glucometer 142 129 Current Medications Acetaminophen (Tylenol -) 650 mg PO Q4H PRN PRN Reason: PAIN LEVEL 1-5 Last Admin: 06/14/18 01:57 Dose: 650 mg Aspirin (Ecotrin -) 81 mg PO DAILY [facility] Last Admin: 06/15/18 10:05 Dose: 81 mg Atorvastatin Calcium (Lipitor -) 40 mg PO HS [facility] Last Admin: 06/14/18 22:26 Dose: 40 mg Calcitriol (Rocaltrol -) 0.25 mcg PO DAILY [facility] Last Admin: 06/15/18 10:05 Dose: 0.25 mcg Clopidogrel Bisulfate (Plavix -) 75 mg PO DAILY [facility] Last Admin: 06/15/18 10:05 Dose: 75 mg Furosemide (Lasix -) 40 mg PO DAILY [facility] Last Admin: 06/15/18 10:05 Dose: 40 mg Hydralazine HCl (Apresoline -) 100 mg PO TID [facility] Last Admin: 06/15/18 06:07 Dose: 100 mg Piperacillin Sod/Tazobactam (Sod 2.25 gm/ Dextrose) 50 mls @ 100 mls/hr IVPB Q8H-IV [facility]; Protocol Last Admin: 06/15/18 10:05 Dose: 100 mls/hr Insulin Aspart (Novolog Vial Sliding Scale -) 1 vial SQ TIDAC [facility]; Protocol Last Admin: 06/15/18 11:27 Dose: 2 units Morphine Sulfate (Morphine Sulfate) 2 mg IVPUSH Q4H PRN PRN Reason: PAIN LEVEL 6-10 Last Admin: 06/15/18 08:50 Dose: 2 mg Nifedipine (Procardia Xl -) 60 mg PO BID [facility] Last Admin: 06/15/18 10:15 Dose: 60 mg Sevelamer Carbonate (Renvela -) 800 mg PO TIDCM [facility] Last Admin: 06/15/18 11:28 Dose: 800 mg Ambulatory Orders Sevelamer HCl [Renagel] 800 mg PO TIDCM 05/16/18 Aspirin Coated [Ecotrin -] 81 mg PO DAILY #30 tablet.ec 05/27/18 Atorvastatin Ca [Lipitor] 20 mg PO HS #30 tablet 05/27/18 Calcitriol [Calcitriol -] 0.25 mcg PO DAILY #30 capsule 05/27/18 Clopidogrel Bisulfate [Plavix -] 75 mg PO DAILY #30 tablet 05/27/18 Furosemide [Lasix -] 40 mg PO DAILY #30 tablet 05/27/18 Hydralazine HCl 100 mg PO TID #90 tablet 05/27/18 Nifedipine ER [Procardia XL -] 60 mg PO BID #60 tab.er.24 05/27/18 Acetaminophen [Tylenol] 650 mg PO QID PRN 06/05/18 IMAGING: EKG: NORMAL SINUS RHYTHM, NONSPECIFIC T WAVE ABNORMALITY EKG done (06/10) revealed new T-wave inversions in lateral leads, Left Foot XRay: No fracture or osteomyelitis. CT ANGIOGRAM OF THE ABDOMEN AND PELVIS WITH BILATERAL LOWER EXTREMITY RUNOFFS: Predominant distal arterial disease suggestive of diabetic and/or nephrogenic vasculopathy. Predominant disease in the distal left popliteal and infrapopliteal arteries demonstrating interval improvement in flow and mild improvement in the degree of stenosis described on the prior exam, as described above. Essential flow to the foot is provided by the MIGUELITO. Peroneal artery is occluded and [employer] demonstrate short segmental occlusions with reconstitution of flow in the plantar artery which demonstrate robust flow. Flow is seen in the digital arteries. Predominant right infrapopliteal disease, as described above, grossly unchanged since the prior exam. Subcutaneous edema with mesenteric stranding possibly due to third spacing/anasarca. Under distended urinary bladder with suggestion of wall thickening. Correlate clinically for cystitis. ASSESSMENT/PLAN: 68 y/o M w/ PMHx CAD, [place], PVD, ESRD on HD (MWF), HTN, admitted for gangrene/ osteomyelitis of the left foot on 05/16, now presents with worsening pain and discoloration of the left 4th toe and blackening and pain of the 3rd toe #Gangrene of L 3rd and 4th toes, now s/p L TMA sparing great toe (06/11/18) -s/p Amputation of Left toes 2-4 -Remains AFebrile, WBC persisting -Dr. Wilkins-Pt with chronic EKG changes -Dr. Paiz :vessels still patent and Pt cleared from vascular standpoint for podiatry intervention. -ID (Dr. Reyez) consulted: Vanc/Zosyn (Started on 06/05), intermittent vanco dosing based on vanc level -Podiatry (Dr. Garcia) consulted: Amputation on 06/11, to follow up in [facility] after dc (if white count nl) -Pt with post op surgical shoe. #Leukocytosis -White count persisting post op -Now with some pain plantar aspct of great toe - Pt has been on iv zosyn -D/w Dr Reyez -Dc was dependent on white count per podiatry #ESRD on HD (MWF) -Nephro (Dr. Flaherty) consulted -Vascular evaluated fistula -cont home Lasix, Sevelamer -Pt requesting blood draws with dialysis #CAD/PVD -Cont ASA/Plavix #HTN -cont home nifedipine, hydralazine #anemia -likely of chronic disease 2/2 ESRD -epogen 10,000 #FEN -PO Fluids -Continue to monitor lytes -Diabetic diet #PPx -no heparin at this time per vascular #Dispo - D/C pending normal WBC count Visit type - Emergency Visit Emergency Visit: Yes ED Registration Date: 06/05/18 Care time: The patient presented to the Emergency Department on the above date and was hospitalized for further evaluation of their emergent condition. - New Patient This patient is new to me today: No - Critical Care Critical Care patient: No - Discharge Referral Referred to [facility] Med P.C.: No
[2018-06-15] MEDS: SEVELAMER CARBONATE 800 MG TAB (FP) PO SCH ×3 (08:46→17:05)
[2018-06-15] MEDS: MORPHINE SULFATE 2 MG/ML VIAL IVPUSH PRN (08:50)
[2018-06-15] MEDS: ASPIRIN COATED 81 MG TABLET.EC PO SCH (10:05)
[2018-06-15] MEDS: CLOPIDOGREL BISULFATE 75 MG TABLET (FP) PO SCH (10:05)
[2018-06-15] MEDS: CALCITRIOL 0.25 MCG CAPSULE (FP) PO SCH (10:05)
[2018-06-15] MEDS: FUROSEMIDE 40 MG TABLET (FP) PO SCH (10:05)
[2018-06-15] MEDS ORDERED: PT OWN MED DRAWER 7, Y5N ONE ×2 (10:12→11:16)
[2018-06-15] MEDS: NIFEdipine E.R 60 MG TABLET (UD) PO SCH ×2 (10:15→22:03)
[2018-06-15 11:30] LABS: BASO % 0.5 % (0-2.0); EOS % 1.7 % (0-4.5); HEMATOCRIT 26.6 % (35.4-49); HEMOGLOBIN 8.7 GM/dL (11.7-16.9); LYMPH % 5.3 % (8-40); MCH 32.3 pg (25.7-33.7); MCHC 32.8 g/dl (32.0-35.9); MEAN CELL VOLUME 98.5 fl (80-96); MEAN PLT VOLUME 8.2 fl (7.5-11.1); MONO % 8.9 % (3.8-10.2); NEUT % 83.6 % (42.8-82.8); PLATELET COUNT 335 K/MM3 (134-434); RDW 16.8 % (11.9-15.9); WHITE BLOOD COUNT 13.8 K/mm3 (4.0-10.0)
--- NOTE | 2018-06-15 14:21 | PN ---
Progress Note, Physician History of Present Illness: No c/o foot pain at rest Afebrile WBC increased 13k Path report pending - Current Medication List Current Medications: Active Medications Acetaminophen (Tylenol -) 650 mg PO Q4H PRN PRN Reason: PAIN LEVEL 1-5 Last Admin: 06/14/18 01:57 Dose: 650 mg Aspirin (Ecotrin -) 81 mg PO DAILY [facility] Last Admin: 06/15/18 10:05 Dose: 81 mg Atorvastatin Calcium (Lipitor -) 40 mg PO HS [facility] Last Admin: 06/14/18 22:26 Dose: 40 mg Calcitriol (Rocaltrol -) 0.25 mcg PO DAILY [facility] Last Admin: 06/15/18 10:05 Dose: 0.25 mcg Clopidogrel Bisulfate (Plavix -) 75 mg PO DAILY [facility] Last Admin: 06/15/18 10:05 Dose: 75 mg Furosemide (Lasix -) 40 mg PO DAILY [facility] Last Admin: 06/15/18 10:05 Dose: 40 mg Hydralazine HCl (Apresoline -) 100 mg PO TID [facility] Last Admin: 06/15/18 06:07 Dose: 100 mg Piperacillin Sod/Tazobactam (Sod 2.25 gm/ Dextrose) 50 mls @ 100 mls/hr IVPB Q8H-IV [facility]; Protocol Last Admin: 06/15/18 10:05 Dose: 100 mls/hr Insulin Aspart (Novolog Vial Sliding Scale -) 1 vial SQ TIDAC [facility]; Protocol Last Admin: 06/15/18 11:27 Dose: 2 units Morphine Sulfate (Morphine Sulfate) 2 mg IVPUSH Q4H PRN PRN Reason: PAIN LEVEL 6-10 Last Admin: 06/15/18 08:50 Dose: 2 mg Nifedipine (Procardia Xl -) 60 mg PO BID [facility] Last Admin: 06/15/18 10:15 Dose: 60 mg Sevelamer Carbonate (Renvela -) 800 mg PO TIDCM [facility] Last Admin: 06/15/18 11:28 Dose: 800 mg - Objective Vital Signs: Vital Signs Temperature 98.2 F 06/15/18 10:00 Pulse Rate 67 06/15/18 10:00 Respiratory Rate 20 06/15/18 10:00 Blood Pressure 151/67 06/15/18 10:00 O2 Sat by Pulse Oximetry (%) 94 L 06/15/18 09:00 Extremities: Yes: Other (Partial TMA surgical wound healing well w/o evidence of infection) Labs: CBC, BMP 06/15/18 11:10 06/13/18 18:05 INR, PTT INR 1.09 (0.83-1.09) 06/06/18 06:30 Assessment/Plan S/P partial TMA Leukocytosis Await path report Repeat CBC am Continue zosyn
--- NOTE | 2018-06-15 17:14 | PN ---
Teaching Attending Note Name of Resident: Germania Herbert ATTENDING PHYSICIAN STATEMENT I saw and evaluated the patient. I reviewed the resident's note and discussed the case with the resident. I agree with the resident's findings and plan as documented. SUBJECTIVE: Patient is comfortable with no acute distress. OBJECTIVE: Vital Signs Temperature 98.2 F 06/15/18 10:00 Pulse Rate 67 06/15/18 10:00 Respiratory Rate 20 06/15/18 10:00 Blood Pressure 151/67 06/15/18 10:00 O2 Sat by Pulse Oximetry (%) 94 L 06/15/18 09:00 GENERAL: The patient is awake, alert, and fully oriented, in no acute distress. HEAD: NCAT; EYES: PERRL, EOMI ENT: oropharynx clear without exudates, MMM NECK: supple, No JVD LUNGS: Breath sounds equal, clear to auscultation bilaterally, no wheezes HEART: Regular rate and rhythm, S1, S2, Systolic murmur at the LLSB ABDOMEN: Soft, nontender, nondistended, normoactive bowel sounds, no guarding EXTREMITIES: 2+ pulses, no edema.s/p amputation of left 3 and 4 toes. NEUROLOGICAL: Cranial nerves II through XII grossly intact. Normal speech. gait not observed. CBCD WBC 13.8 K/mm3 (4.0-10.0) H 06/15/18 11:10 RBC 2.70 M/mm3 (4.00-5.60) L 06/15/18 11:10 Hgb 8.7 GM/dL (11.7-16.9) L 06/15/18 11:10 Hct 26.6 % (35.4-49) L 06/15/18 11:10 MCV 98.5 fl (80-96) H 06/15/18 11:10 MCHC 32.8 g/dl (32.0-35.9) 06/15/18 11:10 RDW 16.8 % (11.9-15.9) H 06/15/18 11:10 Plt Count 335 K/MM3 (134-434) 06/15/18 11:10 MPV 8.2 fl (7.5-11.1) D 06/15/18 11:10 CMP Sodium 132 mmol/L (136-145) L 06/13/18 07:00 Potassium 4.0 mmol/L (3.5-5.1) 06/13/18 07:00 Chloride 94 mmol/L (98-107) L 06/13/18 07:00 Carbon Dioxide 28 mmol/L (21-32) 06/13/18 07:00 Anion Gap 10 MMOL/L (8-16) 06/13/18 07:00 BUN 9 mg/dL (7-18) 06/13/18 18:05 Creatinine 2.9 mg/dL (0.55-1.3) H 06/13/18 18:05 Creat Clearance w eGFR 7.33 (>60) 06/13/18 07:00 Random Glucose 116 mg/dL (74-106) H 06/13/18 07:00 Calcium 9.5 mg/dL (8.5-10.1) 06/13/18 07:00 Total Bilirubin 0.7 mg/dL (0.2-1) 06/13/18 07:00 AST 23 U/L (15-37) 06/13/18 07:00 ALT 11 U/L (13-61) L 06/13/18 07:00 Alkaline Phosphatase 218 U/L (45-117) H 06/13/18 07:00 Total Protein 7.7 g/dl (6.4-8.2) 06/13/18 07:00 Albumin 2.5 g/dl (3.4-5.0) L 06/13/18 07:00 Current Medications Generic Name Dose Route Start Last Admin Trade Name Freq PRN Reason Stop Dose Admin Acetaminophen 650 mg 06/11/18 14:53 06/14/18 01:57 Tylenol - PO 650 mg Q4H PRN Administration PAIN LEVEL 1-5 Aspirin 81 mg 06/12/18 10:00 06/15/18 10:05 Ecotrin - PO 81 mg DAILY [facility] Administration Atorvastatin Calcium 40 mg 06/11/18 22:00 06/14/18 22:26 Lipitor - PO 40 mg HS [facility] Administration Calcitriol 0.25 mcg 06/12/18 10:00 06/15/18 10:05 Rocaltrol - PO 0.25 mcg DAILY [facility] Administration Clopidogrel Bisulfate 75 mg 06/12/18 10:00 06/15/18 10:05 Plavix - PO 75 mg DAILY [facility] Administration Furosemide 40 mg 06/12/18 10:00 06/15/18 10:05 Lasix - PO 40 mg DAILY [facility] Administration Hydralazine HCl 100 mg 06/11/18 22:00 06/15/18 14:28 Apresoline - PO 100 mg TID [facility] Administration Piperacillin Sod/Tazobactam 50 mls @ 100 mls/hr 06/11/18 18:00 06/15/18 17:05 Sod 2.25 gm/ Dextrose IVPB 100 mls/hr Q8H-IV [facility] Administration Protocol Insulin Aspart 1 vial 06/11/18 16:30 06/15/18 16:15 Novolog Vial Sliding Scale - SQ Not Given TIDAC [facility] Protocol Nifedipine 60 mg 06/11/18 22:00 06/15/18 10:15 Procardia Xl - PO 60 mg BID [facility] Administration Sevelamer Carbonate 800 mg 06/11/18 17:30 06/15/18 17:05 Renvela - PO 800 mg TIDCM [facility] Administration Home Medications Medication Instructions Recorded Sevelamer HCl [Renagel] 800 mg PO TIDCM 05/16/18 Aspirin Coated [Ecotrin -] 81 mg PO DAILY #30 tablet.ec 05/27/18 Atorvastatin Ca [Lipitor] 20 mg PO HS #30 tablet 05/27/18 Calcitriol [Calcitriol -] 0.25 mcg PO DAILY #30 capsule 05/27/18 Clopidogrel Bisulfate [Plavix -] 75 mg PO DAILY #30 tablet 05/27/18 Furosemide [Lasix -] 40 mg PO DAILY #30 tablet 05/27/18 Hydralazine HCl 100 mg PO TID #90 tablet 05/27/18 Nifedipine ER [Procardia XL -] 60 mg PO BID #60 tab.er.24 05/27/18 Acetaminophen [Tylenol] 650 mg PO QID PRN 06/05/18 Microbiology ASSESSMENT AND PLAN: 06/05/18 11:10 Blood - Peripheral Venous Blood Culture - Final NO GROWTH AFTER 5 DAYS INCUBATION 06/05/18 11:10 Blood - Peripheral Venous Blood Culture - Final NO GROWTH AFTER 5 DAYS INCUBATION ASSESSMENT AND PLAN: Patient is a 68yo male with PMHx of CAD, recent [place], PVD, ESRD on HD, HTN, HLP, Hep B , DM, and recent admission for L 4th toe gangrene and OM, s/p angiogram, atherectomy and angioplasty, who presented with gangrenous 3rd and 4th toes. # POD #5 amputation of gangrenous left 3rd and 4th toes. On IV vanco and zosyn continue, vanco level noted ,ID on the case, as per , if WBC is within normal level , patient can be discharged home in am with post op shoe. Betadine dressing change daily. Cont ASA and plavix, statin. Discussed with ID, waiting for pathology report. #HTN Uncontrolled : continue Nifedipine , Hydralazine, Lasix. Nephro on the case # H/O ESRD: on HD ,on lasix , sevelamir DVT PX: SCds. heparin
[2018-06-15] MEDS ORDERED: SODIUM CHLORIDE 250 ML IV PRN (20:23)
[2018-06-15] MEDS: ATORVASTATIN CA 40 MG TABLET (FP) PO SCH (22:04)
[2018-06-16] MEDS ORDERED: PIPERACILLIN/TAZOBACTAM 2.25 GM VIAL IVPB ONE ×3 (01:56→18:36)
[2018-06-16] MEDS ORDERED: DEXTROSE 5%-WATER - 50 ML IVPB ONE ×3 (01:57→18:37)
[2018-06-16] MEDS: PIPERACILLIN/TAZOB 2.25 GM 2.25 GM in DEXTROSE 5%-WATER - 50 ML IVPB SCH ×3 (02:04→18:40)
[2018-06-16] MEDS: INSULIN SLIDING SCALE (NOVOLOG) 1 VIAL SQ SCH ×3 (06:24→17:02)
[2018-06-16] MEDS: hydrALAZINE HCL 50 MG TABLET (FP) PO SCH ×3 (06:24→21:21)
[2018-06-16] MEDS: SEVELAMER CARBONATE 800 MG TAB (FP) PO SCH ×3 (08:08→17:14)
[2018-06-16] MEDS ORDERED: PT OWN MED DRAWER 7, Y5N ONE ×2 (09:31→20:59)
[2018-06-16] MEDS: FUROSEMIDE 40 MG TABLET (FP) PO SCH (09:39)
[2018-06-16] MEDS: CALCITRIOL 0.25 MCG CAPSULE (FP) PO SCH (09:39)
[2018-06-16] MEDS: CLOPIDOGREL BISULFATE 75 MG TABLET (FP) PO SCH (09:39)
[2018-06-16] MEDS: NIFEdipine E.R 60 MG TABLET (UD) PO SCH ×2 (09:39→21:21)
[2018-06-16] MEDS: ASPIRIN COATED 81 MG TABLET.EC PO SCH (09:39)
--- NOTE | 2018-06-16 11:09 | PN ---
Progress Note, Physician Chief Complaint: Pt alert; no chest pain or dyspnea; less left foot pain. History of Present Illness: This is a 68 year-old male (miranda Guaman), with HTN, NIDDM, ESRD on HD (M,W,F), CAD (s/p "infarct" about one year ago--treated at [facility]; never had coronary angiogram), diastolic CHF, and peripheral arterial disease/known left 4th toe osteomyelitis and gangrene, [facility], who presents with worsening, "stabbing", intermittent pain since last night. He notes that his left 4th toe is darker and his 3rd toe is black, which is completely new according to both him and his . He denies fevers/chills or any other symptoms. Vital signs on arrival are unremarkable. - Current Medication List Current Medications: Active Medications Acetaminophen (Tylenol -) 650 mg PO Q4H PRN PRN Reason: PAIN LEVEL 1-5 Last Admin: 06/14/18 01:57 Dose: 650 mg Aspirin (Ecotrin -) 81 mg PO DAILY [facility] Last Admin: 06/16/18 09:39 Dose: 81 mg Atorvastatin Calcium (Lipitor -) 40 mg PO HS [facility] Last Admin: 06/15/18 22:04 Dose: 40 mg Calcitriol (Rocaltrol -) 0.25 mcg PO DAILY [facility] Last Admin: 06/16/18 09:39 Dose: 0.25 mcg Clopidogrel Bisulfate (Plavix -) 75 mg PO DAILY [facility] Last Admin: 06/16/18 09:39 Dose: 75 mg Furosemide (Lasix -) 40 mg PO DAILY [facility] Last Admin: 06/16/18 09:39 Dose: 40 mg Hydralazine HCl (Apresoline -) 100 mg PO TID [facility] Last Admin: 06/16/18 06:24 Dose: 100 mg Piperacillin Sod/Tazobactam (Sod 2.25 gm/ Dextrose) 50 mls @ 100 mls/hr IVPB Q8H-IV [facility]; Protocol Last Admin: 06/16/18 09:36 Dose: 100 mls/hr Sodium Chloride (Normal Saline -) 250 mls @ 3,000 mls/hr IV PRN PRN PRN Reason: Hypotension during Dialysis Stop: 06/16/18 20:23 Insulin Aspart (Novolog Vial Sliding Scale -) 1 vial SQ TIDAC [facility]; Protocol Last Admin: 06/16/18 06:24 Dose: Not Given Nifedipine (Procardia Xl -) 60 mg PO BID [facility] Last Admin: 06/16/18 09:39 Dose: 60 mg Sevelamer Carbonate (Renvela -) 800 mg PO TIDCM [facility] Last Admin: 06/16/18 08:08 Dose: 800 mg - Objective Vital Signs: Vital Signs Temperature 98.0 F 06/16/18 06:00 Pulse Rate 72 06/16/18 06:00 Respiratory Rate 20 06/15/18 23:00 Blood Pressure 178/75 H 06/16/18 06:00 O2 Sat by Pulse Oximetry (%) 94 L 06/15/18 21:00 Constitutional: Yes: Calm Eyes: Yes: WNL HENT: Yes: WNL Neck: Yes: WNL Cardiovascular: Yes: Murmur (2/6 systolic , LSB-->apex), S1, S2 Respiratory: Yes: WNL Gastrointestinal: Yes: Soft ...Rectal Exam: Yes: Deferred Genitourinary: No: Anuria Breast(s): Yes: WNL Musculoskeletal: Yes: Joint Stiffness, Muscle Weakness Extremities: Yes: Amputation (left 3rd and 4th toes), Cold Edema: LLE: Trace Peripheral Pulses WNL: No Peripheral Pulses: Left Doralis Pedis: 1+ Integumentary: Yes: Incision Wound/Incision: Yes: Well Approximated, Dressing Dry and Intact Neurological: Yes: Alert, Oriented, Weakness Psychiatric: Yes: WNL Labs: CBC, BMP 06/15/18 11:10 06/13/18 18:05 INR, PTT INR 1.09 (0.83-1.09) 06/06/18 06:30 Abnormal Lab Results 06/15/18 11:10 WBC 13.8 H RBC 2.70 L Hgb 8.7 L Hct 26.6 L MCV 98.5 H RDW 16.8 H Absolute Neuts (auto) 11.5 H Neutrophils % 83.6 H Lymphocytes % 5.3 L Problem List - Problems (1) ESRD (end stage renal disease) Assessment/Plan: on hemodialysis 3x/week Code(s): N18.6 - END STAGE RENAL DISEASE (2) Anemia Code(s): D64.9 - ANEMIA, UNSPECIFIED Qualifiers: Vitamin B12 deficiency anemia type: other B12 deficiency (3) PAD (peripheral artery disease) Assessment/Plan: gangrenous toes-->surgery Pain managemetn and phyical rehabilitatio. Code(s): I73.9 - PERIPHERAL VASCULAR DISEASE, UNSPECIFIED (4) AV fistula Code(s): I77.0 - ARTERIOVENOUS FISTULA, ACQUIRED (5) Diabetes Code(s): E11.9 - TYPE 2 DIABETES MELLITUS WITHOUT COMPLICATIONS Qualifiers: Diabetes mellitus type: type 2 Diabetes mellitus oil heaterman insulin use: without oil heaterman use Diabetes mellitus complication detail: with chronic kidney disease Chronic kidney disease stage: stage 5, not on chronic dialysis (6) Diastolic CHF Code(s): I50.30 - UNSPECIFIED DIASTOLIC (CONGESTIVE) HEART FAILURE (7) [place] cardiac risk >20% in next 10 years Assessment/Plan: The importance of aggressive risk-factor control was discussed in detail with pt and his daughter. Strong family hx DM. Pt is a candidate for cardiac rehabilitation (LA in the past year; mild ischemia on recent stress MIBI). Lower LDL even further with increase statin dose, diet, exercise. Code(s): Z91.89 - OTH PERSONAL RISK FACTORS, NOT ELSEWHERE CLASSIFIED (8) Hypertension Assessment/Plan: On hydralaziine, nifedipine, furosemide. F/u BP serially.Consider adding ACEI or ARB. Code(s): I10 - ESSENTIAL (PRIMARY) HYPERTENSION Qualifiers: (9) Pre-operative cardiovascular examination Assessment/Plan: Pt A&Ox3; daughter at bedside, and provides confirmation of hx. Until a month ago, when left leg discomfort at site of gangrene radiated throughout leg and made walking painful, he had been walking a few blocks and taking stairs almost daily without chest pain or dyspnea. Reportedly had "small infarct" a year ago (treated at [facility];; denies having had to undergo coronary angiogram). Stress MIBI 05/2018: small area of mildly intense periinfarct inferoapical ischemia. ECHO 05/2018: normal LVEF; moderate TR; mild-moderate CA. EKG: NSR; nonspecific T wave abnormalities (EKG without significant change from prior EKGs as far back as 2016). From a cardiac perspecitve, pt was cleared to undergo LE surgery for gangrenous toes; doing well post-op. Code(s): Z01.810 - ENCOUNTER FOR PREPROCEDURAL CARDIOVASCULAR EXAMINATION
[2018-06-16] MEDS ORDERED: INSULIN (NOVOLOG) ASPART 100 UNITS/ML 10ML VIAL ONE ×2 (11:42→21:00)
[2018-06-16] MEDS: ACETAMINOPHEN 325 MG TABLET (FP) PO PRN (14:56)
--- NOTE | 2018-06-16 15:08 | PN ---
Physical Exam: SUBJECTIVE: Patient seen and examined this morning POD#5. Continues to have pain at the suture site. Otherwise, No new complaints, No overnight events. Denies fevers, chills, chest pain, SOB, nausea, vomiting. OBJECTIVE: Vital Signs Period Temp Pulse Resp BP Sys/Cole Pulse Ox Last 24 Hr 96.7 F-99 F 68-75 19-20 142-178/59-75 94-95 GENERAL: The patient is awake, alert, and fully oriented, in no acute distress. HEAD: NCAT ENT: oropharynx clear without exudates, MMM NECK: supple, No JVD LUNGS: Breath sounds equal, clear to auscultation bilaterally, no wheezes HEART: Regular rate and rhythm, S1, S2, Systolic murmur at the LLSB ABDOMEN: Soft, nontender, nondistended, normoactive bowel sounds, no guarding EXTREMITIES: 2+ pulses, no edema. Clean LLE external dressing. Sutures intact over TransMetartarsal amputation of 2 to 5 digits without any active drainage. Some tenderness to palpation surrounding suture site. Gross lower extremity sensation intact b/l. Muscle strength 5/5 on Right and 4/5 on Left to Dorsiflexion and plantarflexion NEUROLOGICAL: Cranial nerves II through XII grossly intact. Normal speech, gait not observed. Laboratory Results - last 24 hr 06/15/18 06/16/18 06/16/18 16:14 06:23 11:32 POC Glucometer 103 150 206 Microbiology 06/05/18 11:10 Blood - Peripheral Venous Blood Culture - Final NO GROWTH AFTER 5 DAYS INCUBATION 06/05/18 11:10 Blood - Peripheral Venous Blood Culture - Final NO GROWTH AFTER 5 DAYS INCUBATION Active Medications Acetaminophen (Tylenol -) 650 mg PO Q4H PRN PRN Reason: PAIN LEVEL 1-5 Last Admin: 06/16/18 14:56 Dose: 650 mg Aspirin (Ecotrin -) 81 mg PO DAILY [facility] Last Admin: 06/16/18 09:39 Dose: 81 mg Atorvastatin Calcium (Lipitor -) 40 mg PO HS [facility] Last Admin: 06/15/18 22:04 Dose: 40 mg Calcitriol (Rocaltrol -) 0.25 mcg PO DAILY [facility] Last Admin: 06/16/18 09:39 Dose: 0.25 mcg Clopidogrel Bisulfate (Plavix -) 75 mg PO DAILY [facility] Last Admin: 06/16/18 09:39 Dose: 75 mg Furosemide (Lasix -) 40 mg PO DAILY [facility] Last Admin: 06/16/18 09:39 Dose: 40 mg Hydralazine HCl (Apresoline -) 100 mg PO TID [facility] Last Admin: 06/16/18 14:41 Dose: Not Given Piperacillin Sod/Tazobactam (Sod 2.25 gm/ Dextrose) 50 mls @ 100 mls/hr IVPB Q8H-IV [facility]; Protocol Last Admin: 06/16/18 09:36 Dose: 100 mls/hr Sodium Chloride (Normal Saline -) 250 mls @ 3,000 mls/hr IV PRN PRN PRN Reason: Hypotension during Dialysis Stop: 06/16/18 20:23 Insulin Aspart (Novolog Vial Sliding Scale -) 1 vial SQ TIDAC [facility]; Protocol Last Admin: 06/16/18 11:46 Dose: 4 units Nifedipine (Procardia Xl -) 60 mg PO BID [facility] Last Admin: 06/16/18 09:39 Dose: 60 mg Sevelamer Carbonate (Renvela -) 800 mg PO TIDCM [facility] Last Admin: 06/16/18 13:19 Dose: Not Given IMAGING: EKG: NORMAL SINUS RHYTHM, NONSPECIFIC T WAVE ABNORMALITY EKG done (06/10) revealed new T-wave inversions in lateral leads, Left Foot XRay: No fracture or osteomyelitis. CT ANGIOGRAM OF THE ABDOMEN AND PELVIS WITH BILATERAL LOWER EXTREMITY RUNOFFS: Predominant distal arterial disease suggestive of diabetic and/or nephrogenic vasculopathy. Predominant disease in the distal left popliteal and infrapopliteal arteries demonstrating interval improvement in flow and mild improvement in the degree of stenosis described on the prior exam, as described above. Essential flow to the foot is provided by the MIGUELITO. Peroneal artery is occluded and CANE FEEDER demonstrate short segmental occlusions with reconstitution of flow in the plantar artery which demonstrate robust flow. Flow is seen in the digital arteries. Predominant right infrapopliteal disease, as described above, grossly unchanged since the prior exam. Subcutaneous edema with mesenteric stranding possibly due to third spacing/anasarca. Under distended urinary bladder with suggestion of wall thickening. Correlate clinically for cystitis. ASSESSMENT/PLAN: 68 y/o M w/ PMHx CAD, [place], PVD, ESRD on HD (MWF), HTN, admitted for gangrene/ osteomyelitis of the left foot on 05/16, now presents with worsening pain and discoloration of the left 4th toe and blackening and pain of the 3rd toe 1. Gangrene of L 3rd and 4th toes, now s/p L TMA sparing great toe (06/11/18) -POD#5 s/p Amputation of Left toes 2-4 -Remains AFebrile, WBC persisting -CTA noted as above -EKG done (06/10) revealed new T-wave inversions in lateral leads, case discussed with Dr. Wilkins--Pt is cleared to undergo LE surgery -Dr. Paiz : Pt cleared from vascular standpoint for podiatry intervention. -ID (Dr. Reyez) consulted: Vanc/Zosyn (Started on 06/05), intermittent vanco dosing based on vanc level -Podiatry (Dr. Garcia) consulted: Amputation on 06/11, Can dc to home if normal WBC count in AM, and follow up in [facility]. -Pt with post op surgical shoe. 2. Leukocytosis -WBC count persisting post op -Continues to have tenderness to palpation at the suture site -Continue Zosyn (Started 06/11) -ID (Dr. Reyez) consulted -Pathology report pending -D/C depends on WBC count per podiatry 3. ESRD on HD (MWF) -Nephro (Dr. Flaherty) consulted -Vascular evaluated fistula -Cont home Lasix, Sevelamer -Pt requesting blood draws with dialysis 4. CAD/PVD -Cont ASA/Plavix 5. HTN -cont home nifedipine, hydralazine 6. Anemia -likely of chronic disease 2/2 ESRD -epogen 10,000 7. FEN -PO Fluids -Continue to monitor lytes -Diabetic diet 8. PPx -no heparin at this time per vascular Dispo: D/C pending normal WBC count Visit type - Emergency Visit Emergency Visit: Yes ED Registration Date: 06/05/18 Care time: The patient presented to the Emergency Department on the above date and was hospitalized for further evaluation of their emergent condition. - New Patient This patient is new to me today: Yes Date on this admission: 06/16/18 - Critical Care Critical Care patient: No
[2018-06-16 15:52] LABS: BASO % 0.3 % (0-2.0); EOS % 1.2 % (0-4.5); HEMOGLOBIN 8.5 GM/dL (11.7-16.9); LYMPH % 7.7 % (8-40); MCH 31.9 pg (25.7-33.7); MCHC 32.6 g/dl (32.0-35.9); MEAN CELL VOLUME 97.9 fl (80-96); MEAN PLT VOLUME 8.5 fl (7.5-11.1); MONO % 8.6 % (3.8-10.2); NEUT % 82.2 % (42.8-82.8); PLATELET COUNT 355 K/MM3 (134-434); RBC 2.66 M/mm3 (4.00-5.60); RDW 16.6 % (11.9-15.9); WHITE BLOOD COUNT 17.6 K/mm3 (4.0-10.0)
[2018-06-16] MEDS ORDERED: EPOETIN ALFA 10,000 UNIT/1 ML VIAL IVPUSH ONE (16:50)
--- NOTE | 2018-06-16 16:50 | PN ---
Progress Note, Physician History of Present Illness: Pt seen and examined at bedside. He is tolerated HD. He denies shortness of breath. - Current Medication List Current Medications: Active Medications Acetaminophen (Tylenol -) 650 mg PO Q4H PRN PRN Reason: PAIN LEVEL 1-5 Last Admin: 06/16/18 14:56 Dose: 650 mg Aspirin (Ecotrin -) 81 mg PO DAILY [facility] Last Admin: 06/16/18 09:39 Dose: 81 mg Atorvastatin Calcium (Lipitor -) 40 mg PO HS [facility] Last Admin: 06/15/18 22:04 Dose: 40 mg Calcitriol (Rocaltrol -) 0.25 mcg PO DAILY [facility] Last Admin: 06/16/18 09:39 Dose: 0.25 mcg Clopidogrel Bisulfate (Plavix -) 75 mg PO DAILY [facility] Last Admin: 06/16/18 09:39 Dose: 75 mg Furosemide (Lasix -) 40 mg PO DAILY [facility] Last Admin: 06/16/18 09:39 Dose: 40 mg Hydralazine HCl (Apresoline -) 100 mg PO TID [facility] Last Admin: 06/16/18 14:41 Dose: Not Given Piperacillin Sod/Tazobactam (Sod 2.25 gm/ Dextrose) 50 mls @ 100 mls/hr IVPB Q8H-IV [facility]; Protocol Last Admin: 06/16/18 09:36 Dose: 100 mls/hr Sodium Chloride (Normal Saline -) 250 mls @ 3,000 mls/hr IV PRN PRN PRN Reason: Hypotension during Dialysis Stop: 06/16/18 20:23 Insulin Aspart (Novolog Vial Sliding Scale -) 1 vial SQ TIDAC [facility]; Protocol Last Admin: 06/16/18 11:46 Dose: 4 units Nifedipine (Procardia Xl -) 60 mg PO BID [facility] Last Admin: 06/16/18 09:39 Dose: 60 mg Sevelamer Carbonate (Renvela -) 800 mg PO TIDCM [facility] Last Admin: 06/16/18 13:19 Dose: Not Given - Objective Vital Signs: Vital Signs Temperature 98 F 06/16/18 14:35 Pulse Rate 66 06/16/18 15:40 Respiratory Rate 18 06/16/18 15:40 Blood Pressure 155/68 06/16/18 15:40 O2 Sat by Pulse Oximetry (%) 95 06/16/18 09:00 Constitutional: Yes: Calm Eyes: Yes: Conjunctiva Clear HENT: Yes: Atraumatic Neck: Yes: Supple Cardiovascular: Yes: S1, S2 Respiratory: Yes: CTA Bilaterally Gastrointestinal: Yes: Normal Bowel Sounds, Soft Genitourinary: Yes: WNL Wound/Incision: Yes: Dressing Dry and Intact Labs: CBC, BMP 06/16/18 15:50 INR, PTT INR 1.09 (0.83-1.09) 06/06/18 06:30 Problem List - Problems (1) ESRD (end stage renal disease) Code(s): N18.6 - END STAGE RENAL DISEASE (2) Gangrene Code(s): I96 - GANGRENE, NOT ELSEWHERE CLASSIFIED (3) PAD (peripheral artery disease) Code(s): I73.9 - PERIPHERAL VASCULAR DISEASE, UNSPECIFIED Assessment/Plan Current Medications Generic Name Dose Route Start Last Admin Trade Name Freq PRN Reason Stop Dose Admin Acetaminophen 650 mg 06/11/18 14:53 06/16/18 14:56 Tylenol - PO 650 mg Q4H PRN Administration PAIN LEVEL 1-5 Aspirin 81 mg 06/12/18 10:00 06/16/18 09:39 Ecotrin - PO 81 mg DAILY [facility] Administration Atorvastatin Calcium 40 mg 06/11/18 22:00 06/15/18 22:04 Lipitor - PO 40 mg HS [facility] Administration Calcitriol 0.25 mcg 06/12/18 10:00 06/16/18 09:39 Rocaltrol - PO 0.25 mcg DAILY [facility] Administration Clopidogrel Bisulfate 75 mg 06/12/18 10:00 06/16/18 09:39 Plavix - PO 75 mg DAILY [facility] Administration Furosemide 40 mg 06/12/18 10:00 06/16/18 09:39 Lasix - PO 40 mg DAILY [facility] Administration Hydralazine HCl 100 mg 06/11/18 22:00 06/16/18 14:41 Apresoline - PO Not Given TID [facility] Piperacillin Sod/Tazobactam 50 mls @ 100 mls/hr 06/11/18 18:00 06/16/18 09:36 Sod 2.25 gm/ Dextrose IVPB 100 mls/hr Q8H-IV [facility] Administration Protocol Sodium Chloride 250 mls @ 3,000 mls/hr 06/15/18 20:23 Normal Saline - IV 06/16/18 20:23 PRN PRN Hypotension during Dialysis Insulin Aspart 1 vial 06/11/18 16:30 06/16/18 11:46 Novolog Vial Sliding Scale - SQ 4 units TIDAC [facility] Administration Protocol Nifedipine 60 mg 06/11/18 22:00 06/16/18 09:39 Procardia Xl - PO 60 mg BID [facility] Administration Sevelamer Carbonate 800 mg 06/11/18 17:30 06/16/18 13:19 Renvela - PO Not Given TIDCM [facility] Impression 1. ESRD on HD 2. anemia 3. DM 4. HTN 5. toe infection/gangrene 6. PVD Plan - HD today - cont wound care - renal diet - monitor BP - avf 3:00 400 abf - epogen 10,000 for anemia
[2018-06-16 16:52] LABS: ALBUMIN 2.5 g/dl (3.4-5.0); ALK PHOS 340 U/L (45-117); ANION GAP 16 MMOL/L (8-16); BILIRUBIN,TOTAL 0.6 mg/dL (0.2-1); BLOOD UREA NITROGEN 42 mg/dL (7-18); CALCIUM 10.4 mg/dL (8.5-10.1); CHLORIDE 93 mmol/L (98-107); CO2 27 mmol/L (21-32); GLUCOSE,RANDOM 53 mg/dL (74-106); MAGNESIUM 2.8 mg/dL (1.8-2.4); PHOSPHOROUS 4.2 mg/dL (2.5-4.9); SGOT/AST 26 U/L (15-37); SGPT/ALT 12 U/L (13-61); SODIUM 136 mmol/L (136-145); TOT PROT 7.9 g/dl (6.4-8.2)
[2018-06-16 17:27] LABS: CREATININE 8.9 mg/dL (0.55-1.3)
--- NOTE | 2018-06-16 19:53 | PN ---
Teaching Attending Note Name of Resident: Linda Agrawal ATTENDING PHYSICIAN STATEMENT I saw and evaluated the patient. I reviewed the resident's note and discussed the case with the resident. I agree with the resident's findings and plan as documented. SUBJECTIVE: Patient has no fever or chills, but continues to have left foot pain. OBJECTIVE: Vital Signs Temperature 98.7 F 06/16/18 18:00 Pulse Rate 86 06/16/18 18:00 Respiratory Rate 18 06/16/18 18:00 Blood Pressure 158/69 06/16/18 18:00 O2 Sat by Pulse Oximetry (%) 95 06/16/18 09:00 GENERAL: The patient is awake, alert, and fully oriented, in no acute distress. HEAD: NCAT; EYES: PERRL, EOMI ENT: oropharynx clear without exudates, MMM NECK: supple, No JVD LUNGS: Breath sounds equal, clear to auscultation bilaterally, no wheezes HEART: Regular rate and rhythm, S1, S2, Systolic murmur at the LLSB ABDOMEN: Soft, nontender, nondistended, normoactive bowel sounds, no guarding EXTREMITIES: 2+ pulses, no edema.s/p amputation of left 3 and 4 toes. NEUROLOGICAL: Cranial nerves II through XII grossly intact. Normal speech. gait not observed. CBCD WBC 17.6 K/mm3 (4.0-10.0) H 06/16/18 15:50 RBC 2.66 M/mm3 (4.00-5.60) L 06/16/18 15:50 Hgb 8.5 GM/dL (11.7-16.9) L 06/16/18 15:50 Hct 26.0 % (35.4-49) L 06/16/18 15:50 MCV 97.9 fl (80-96) H 06/16/18 15:50 MCHC 32.6 g/dl (32.0-35.9) 06/16/18 15:50 RDW 16.6 % (11.9-15.9) H 06/16/18 15:50 Plt Count 355 K/MM3 (134-434) 06/16/18 15:50 MPV 8.5 fl (7.5-11.1) 06/16/18 15:50 CMP Sodium 136 mmol/L (136-145) 06/16/18 14:45 Potassium 4.0 mmol/L (3.5-5.1) 06/16/18 14:45 Chloride 93 mmol/L (98-107) L 06/16/18 14:45 Carbon Dioxide 27 mmol/L (21-32) 06/16/18 14:45 Anion Gap 16 MMOL/L (8-16) 06/16/18 14:45 BUN 42 mg/dL (7-18) H 06/16/18 14:45 Creatinine 8.9 mg/dL (0.55-1.3) H* 06/16/18 14:45 Creat Clearance w eGFR 5.93 (>60) 06/16/18 14:45 Random Glucose 53 mg/dL (74-106) L 06/16/18 14:45 Calcium 10.4 mg/dL (8.5-10.1) H 06/16/18 14:45 Total Bilirubin 0.6 mg/dL (0.2-1) 06/16/18 14:45 AST 26 U/L (15-37) 06/16/18 14:45 ALT 12 U/L (13-61) L 06/16/18 14:45 Alkaline Phosphatase 340 U/L (45-117) H 06/16/18 14:45 Total Protein 7.9 g/dl (6.4-8.2) 06/16/18 14:45 Albumin 2.5 g/dl (3.4-5.0) L 06/16/18 14:45 Current Medications Generic Name Dose Route Start Last Admin Trade Name Freq PRN Reason Stop Dose Admin Acetaminophen 650 mg 06/11/18 14:53 06/16/18 14:56 Tylenol - PO 650 mg Q4H PRN Administration PAIN LEVEL 1-5 Aspirin 81 mg 06/12/18 10:00 06/16/18 09:39 Ecotrin - PO 81 mg DAILY CHUCKY Administration Atorvastatin Calcium 40 mg 06/11/18 22:00 06/15/18 22:04 Lipitor - PO 40 mg HS CHUCKY Administration Calcitriol 0.25 mcg 06/12/18 10:00 06/16/18 09:39 Rocaltrol - PO 0.25 mcg DAILY CHUCYK Administration Clopidogrel Bisulfate 75 mg 06/12/18 10:00 06/16/18 09:39 Plavix - PO 75 mg DAILY CHUCKY Administration Furosemide 40 mg 06/12/18 10:00 06/16/18 09:39 Lasix - PO 40 mg DAILY CHUCKY Administration Hydralazine HCl 100 mg 06/11/18 22:00 06/16/18 14:41 Apresoline - PO Not Given TID CHUCKY Piperacillin Sod/Tazobactam 50 mls @ 100 mls/hr 06/11/18 18:00 06/16/18 18:40 Sod 2.25 gm/ Dextrose IVPB 100 mls/hr Q8H-IV CHUCKY Administration Protocol Sodium Chloride 250 mls @ 3,000 mls/hr 06/15/18 20:23 Normal Saline - IV 06/16/18 20:23 PRN PRN Hypotension during Dialysis Insulin Aspart 1 vial 06/11/18 16:30 06/16/18 17:02 Novolog Vial Sliding Scale - SQ Not Given TIDAC [facility] Protocol Nifedipine 60 mg 06/11/18 22:00 06/16/18 09:39 Procardia Xl - PO 60 mg BID CHUCKY Administration Sevelamer Carbonate 800 mg 06/11/18 17:30 06/16/18 17:14 Renvela - PO Not Given TIDCM [facility] Home Medications Medication Instructions Recorded Sevelamer HCl [Renagel] 800 mg PO TIDCM 05/16/18 Aspirin Coated [Ecotrin -] 81 mg PO DAILY #30 tablet.ec 05/27/18 Atorvastatin Ca [Lipitor] 20 mg PO HS #30 tablet 05/27/18 Calcitriol [Calcitriol -] 0.25 mcg PO DAILY #30 capsule 05/27/18 Clopidogrel Bisulfate [Plavix -] 75 mg PO DAILY #30 tablet 05/27/18 Furosemide [Lasix -] 40 mg PO DAILY #30 tablet 05/27/18 Hydralazine HCl 100 mg PO TID #90 tablet 05/27/18 Nifedipine ER [Procardia XL -] 60 mg PO BID #60 tab.er.24 05/27/18 Acetaminophen [Tylenol] 650 mg PO QID PRN 06/05/18 06/05/18 11:10 Blood - Peripheral Venous Blood Culture - Final NO GROWTH AFTER 5 DAYS INCUBATION 06/05/18 11:10 Blood - Peripheral Venous Blood Culture - Final NO GROWTH AFTER 5 DAYS INCUBATION ASSESSMENT AND PLAN: Patient is a 68yo male with PMHx of CAD, recent [place], PVD, ESRD on HD, HTN, HLP, Hep B , DM, and recent admission for L 4th toe gangrene and OM, s/p angiogram, atherectomy and angioplasty, who presented with gangrenous 3rd and 4th toes. # POD #6 amputation of gangrenous left 3rd and 4th toes. On IV zosyn continue and Vancomycin , was on hold due to elevated Vanco level. ID on the case, as per , if WBC is within normal level , patient can be discharged home in am with post op shoe. Betadine dressing change daily. Cont ASA and plavix, statin. Discussed with ID, waiting for pathology report. #HTN Uncontrolled : continue Nifedipine , Hydralazine, Lasix. Nephro on the case # H/O ESRD: on HD ,on lasix , sevelamir DVT PX: SCds. heparin
[2018-06-16] MEDS: ATORVASTATIN CA 40 MG TABLET (FP) PO SCH (21:21)
[2018-06-17] MEDS ORDERED: PIPERACILLIN/TAZOBACTAM 2.25 GM VIAL IVPB ONE ×3 (02:44→17:21)
[2018-06-17] MEDS ORDERED: DEXTROSE 5%-WATER - 50 ML IVPB ONE ×3 (02:44→17:21)
[2018-06-17] MEDS: PIPERACILLIN/TAZOB 2.25 GM 2.25 GM in DEXTROSE 5%-WATER - 50 ML IVPB SCH ×3 (02:55→17:27)
[2018-06-17] MEDS: hydrALAZINE HCL 50 MG TABLET (FP) PO SCH ×3 (06:16→21:50)
[2018-06-17] MEDS: INSULIN SLIDING SCALE (NOVOLOG) 1 VIAL SQ SCH ×3 (06:17→16:54)
[2018-06-17 08:05] LABS: BASO % 0.6 % (0-2.0); EOS % 1.3 % (0-4.5); HEMOGLOBIN 8.3 GM/dL (11.7-16.9); LYMPH % 5.7 % (8-40); MCH 31.6 pg (25.7-33.7); MEAN CELL VOLUME 98.7 fl (80-96); MEAN PLT VOLUME 8.2 fl (7.5-11.1); MONO % 8.4 % (3.8-10.2); PLATELET COUNT 302 K/MM3 (134-434); RBC 2.64 M/mm3 (4.00-5.60); RDW 16.5 % (11.9-15.9)
[2018-06-17] MEDS: SEVELAMER CARBONATE 800 MG TAB (FP) PO SCH ×3 (08:11→17:27)
--- NOTE | 2018-06-17 08:18 | PN ---
Teaching Attending Note Name of Resident: Linda Agrawal ATTENDING PHYSICIAN STATEMENT I saw and evaluated the patient. I reviewed the resident's note and discussed the case with the resident. I agree with the resident's findings and plan as documented. SUBJECTIVE: Patient continues to have severe pain, no fever or chills. OBJECTIVE: Vital Signs Temperature 99.5 F 06/17/18 06:35 Pulse Rate 67 06/17/18 06:35 Respiratory Rate 20 06/17/18 06:35 Blood Pressure 150/68 06/17/18 06:35 O2 Sat by Pulse Oximetry (%) 95 06/16/18 22:00 GENERAL: The patient is awake, alert, and fully oriented, in no acute distress. HEAD: NCAT; EYES: PERRL, EOMI ENT: oropharynx clear without exudates, MMM NECK: supple, No JVD LUNGS: Breath sounds equal, clear to auscultation bilaterally, no wheezes HEART: Regular rate and rhythm, S1, S2, Systolic murmur at the LLSB ABDOMEN: Soft, nontender, nondistended, normoactive bowel sounds, no guarding EXTREMITIES: 2+ pulses, no edema.s/p amputation of left 3 and 4 toes. NEUROLOGICAL: Cranial nerves II through XII grossly intact. Normal speech. gait not observed. CBCD WBC 14.0 K/mm3 (4.0-10.0) H 06/17/18 07:24 RBC 2.64 M/mm3 (4.00-5.60) L 06/17/18 07:24 Hgb 8.3 GM/dL (11.7-16.9) L 06/17/18 07:24 Hct 26.0 % (35.4-49) L 06/17/18 07:24 MCV 98.7 fl (80-96) H 06/17/18 07:24 MCHC 32.0 g/dl (32.0-35.9) 06/17/18 07:24 RDW 16.5 % (11.9-15.9) H 06/17/18 07:24 Plt Count 302 K/MM3 (134-434) 06/17/18 07:24 MPV 8.2 fl (7.5-11.1) 06/17/18 07:24 CMP Sodium 136 mmol/L (136-145) 06/16/18 14:45 Potassium 4.0 mmol/L (3.5-5.1) 06/16/18 14:45 Chloride 93 mmol/L (98-107) L 06/16/18 14:45 Carbon Dioxide 27 mmol/L (21-32) 06/16/18 14:45 Anion Gap 16 MMOL/L (8-16) 06/16/18 14:45 BUN 42 mg/dL (7-18) H 06/16/18 14:45 Creatinine 8.9 mg/dL (0.55-1.3) H* 06/16/18 14:45 Creat Clearance w eGFR 5.93 (>60) 06/16/18 14:45 Random Glucose 53 mg/dL (74-106) L 06/16/18 14:45 Calcium 10.4 mg/dL (8.5-10.1) H 06/16/18 14:45 Total Bilirubin 0.6 mg/dL (0.2-1) 06/16/18 14:45 AST 26 U/L (15-37) 06/16/18 14:45 ALT 12 U/L (13-61) L 06/16/18 14:45 Alkaline Phosphatase 340 U/L (45-117) H 06/16/18 14:45 Total Protein 7.9 g/dl (6.4-8.2) 06/16/18 14:45 Albumin 2.5 g/dl (3.4-5.0) L 06/16/18 14:45 Home Medications Medication Instructions Recorded Sevelamer HCl [Renagel] 800 mg PO TIDCM 05/16/18 Aspirin Coated [Ecotrin -] 81 mg PO DAILY #30 tablet.ec 05/27/18 Atorvastatin Ca [Lipitor] 20 mg PO HS #30 tablet 05/27/18 Calcitriol [Calcitriol -] 0.25 mcg PO DAILY #30 capsule 05/27/18 Clopidogrel Bisulfate [Plavix -] 75 mg PO DAILY #30 tablet 05/27/18 Furosemide [Lasix -] 40 mg PO DAILY #30 tablet 05/27/18 Hydralazine HCl 100 mg PO TID #90 tablet 05/27/18 Nifedipine ER [Procardia XL -] 60 mg PO BID #60 tab.er.24 05/27/18 Acetaminophen [Tylenol] 650 mg PO QID PRN 06/05/18 06/05/18 11:10 Blood - Peripheral Venous Blood Culture - Final NO GROWTH AFTER 5 DAYS INCUBATION 06/05/18 11:10 Blood - Peripheral Venous Blood Culture - Final NO GROWTH AFTER 5 DAYS INCUBATION ASSESSMENT AND PLAN: Patient is a 68yo male with PMHx of CAD, recent [place], PVD, ESRD on HD, HTN, HLP, Hep B , DM, and recent admission for L 4th toe gangrene and OM, s/p angiogram, atherectomy and angioplasty, who presented with gangrenous 3rd and 4th toes. # POD #7 amputation of gangrenous left 3rd and 4th toes. Patient continues to have pain, Pathology report positive for OM , continue IV vanco and zosyn , Please check with ID in terms of treatment and the length of treatment. please check with ID As per : Post op shoe when up and about. Betadine dressing change daily. Reconsulted Dr. Paiz. #HTN Uncontrolled : continue Nifedipine , Hydralazine, Lasix. Nephro on the case # H/O ESRD: on HD ,on lasix , sevelamir DVT PX: SCds. heparin
--- NOTE | 2018-06-17 08:28 | PN ---
Physical Exam: SUBJECTIVE: Patient seen and examined this morning POD#6. Pain has improved, only present at the ball of the great toe. No new complaints, No overnight events. Denies fevers, chills, chest pain, SOB, nausea, vomiting. OBJECTIVE: Vital Signs Period Temp Pulse Resp BP Sys/Cole Pulse Ox Last 24 Hr 96.7 F-99.5 F 66-86 18-20 150-177/64-74 95-95 GENERAL: The patient is awake, alert, and fully oriented, in no acute distress. HEAD: NCAT ENT: oropharynx clear without exudates, MMM NECK: supple, No JVD LUNGS: Breath sounds equal, clear to auscultation bilaterally, no wheezes HEART: Regular rate and rhythm, S1, S2, Systolic murmur at the LLSB ABDOMEN: Soft, nontender, nondistended, normoactive bowel sounds, no guarding EXTREMITIES: 2+ pulses, no edema. Clean LLE external dressing. Sutures intact over TransMetartarsal amputation of 2 to 5 digits without any active drainage. Tender to palpation at the base of the great toe. Gross lower extremity sensation intact b/l. Muscle strength 5/5 on Right and 4/5 on Left to Dorsiflexion and plantarflexion NEUROLOGICAL: Cranial nerves II through XII grossly intact. Normal speech, gait not observed. Laboratory Results - last 24 hr 06/16/18 06/16/18 06/16/18 11:32 14:45 15:50 WBC 17.6 H RBC 2.66 L Hgb 8.5 L Hct 26.0 L MCV 97.9 H MCH 31.9 MCHC 32.6 RDW 16.6 H Plt Count 355 MPV 8.5 Absolute Neuts (auto) 14.4 H Neutrophils % 82.2 Lymphocytes % 7.7 L D Monocytes % 8.6 Eosinophils % 1.2 Basophils % 0.3 Nucleated RBC % 2 H Sodium 136 Potassium 4.0 Chloride 93 L Carbon Dioxide 27 Anion Gap 16 BUN 42 H Creatinine 8.9 H* Creat Clearance w eGFR 5.93 POC Glucometer 206 Random Glucose 53 L Calcium 10.4 H Phosphorus 4.2 Magnesium 2.8 H Total Bilirubin 0.6 AST 26 ALT 12 L Alkaline Phosphatase 340 H Total Protein 7.9 Albumin 2.5 L 06/17/18 07:24 WBC 14.0 H RBC 2.64 L Hgb 8.3 L Hct 26.0 L MCV 98.7 H MCH 31.6 MCHC 32.0 RDW 16.5 H Plt Count 302 MPV 8.2 Absolute Neuts (auto) 11.8 H Neutrophils % 84.0 H Lymphocytes % 5.7 L D Monocytes % 8.4 Eosinophils % 1.3 Basophils % 0.6 Nucleated RBC % 0 Sodium Potassium Chloride Carbon Dioxide Anion Gap BUN Creatinine Creat Clearance w eGFR POC Glucometer Random Glucose Calcium Phosphorus Magnesium Total Bilirubin AST ALT Alkaline Phosphatase Total Protein Albumin Microbiology 06/05/18 11:10 Blood - Peripheral Venous Blood Culture - Final NO GROWTH AFTER 5 DAYS INCUBATION 06/05/18 11:10 Blood - Peripheral Venous Blood Culture - Final NO GROWTH AFTER 5 DAYS INCUBATION Active Medications Acetaminophen (Tylenol -) 650 mg PO Q4H PRN PRN Reason: PAIN LEVEL 1-5 Last Admin: 06/16/18 14:56 Dose: 650 mg Aspirin (Ecotrin -) 81 mg PO DAILY [facility] Last Admin: 06/16/18 09:39 Dose: 81 mg Atorvastatin Calcium (Lipitor -) 40 mg PO HS [facility] Last Admin: 06/16/18 21:21 Dose: 40 mg Calcitriol (Rocaltrol -) 0.25 mcg PO DAILY [facility] Last Admin: 06/16/18 09:39 Dose: 0.25 mcg Clopidogrel Bisulfate (Plavix -) 75 mg PO DAILY [facility] Last Admin: 06/16/18 09:39 Dose: 75 mg Furosemide (Lasix -) 40 mg PO DAILY [facility] Last Admin: 06/16/18 09:39 Dose: 40 mg Hydralazine HCl (Apresoline -) 100 mg PO TID [facility] Last Admin: 06/17/18 06:16 Dose: 100 mg Piperacillin Sod/Tazobactam (Sod 2.25 gm/ Dextrose) 50 mls @ 100 mls/hr IVPB Q8H-IV [facility]; Protocol Last Admin: 06/17/18 02:55 Dose: 100 mls/hr Insulin Aspart (Novolog Vial Sliding Scale -) 1 vial SQ TIDAC [facility]; Protocol Last Admin: 06/17/18 06:17 Dose: Not Given Nifedipine (Procardia Xl -) 60 mg PO BID [facility] Last Admin: 06/16/18 21:21 Dose: 60 mg Sevelamer Carbonate (Renvela -) 800 mg PO TIDCM [facility] Last Admin: 06/17/18 08:11 Dose: 800 mg IMAGING: EKG: NORMAL SINUS RHYTHM, NONSPECIFIC T WAVE ABNORMALITY EKG done (06/10) revealed new T-wave inversions in lateral leads, Left Foot XRay: No fracture or osteomyelitis. CT ANGIOGRAM OF THE ABDOMEN AND PELVIS WITH BILATERAL LOWER EXTREMITY RUNOFFS: Predominant distal arterial disease suggestive of diabetic and/or nephrogenic vasculopathy. Predominant disease in the distal left popliteal and infrapopliteal arteries demonstrating interval improvement in flow and mild improvement in the degree of stenosis described on the prior exam, as described above. Essential flow to the foot is provided by the MIGUELITO. Peroneal artery is occluded and PORTFOLIO ARCHITECT demonstrate short segmental occlusions with reconstitution of flow in the plantar artery which demonstrate robust flow. Flow is seen in the digital arteries. Predominant right infrapopliteal disease, as described above, grossly unchanged since the prior exam. Subcutaneous edema with mesenteric stranding possibly due to third spacing/anasarca. Under distended urinary bladder with suggestion of wall thickening. Correlate clinically for cystitis. ASSESSMENT/PLAN: 68 y/o M w/ PMHx CAD, [place], PVD, ESRD on HD (MWF), HTN, admitted for gangrene/ osteomyelitis of the left foot on 05/16, now presents with worsening pain and discoloration of the left 4th toe and blackening and pain of the 3rd toe 1. Gangrene of L 3rd and 4th toes, now s/p L TMA sparing great toe (06/11/18) -POD#6 s/p Amputation of Left toes 2-4 -Remains AFebrile, WBC trending down -CTA noted as above -EKG done (06/10) revealed new T-wave inversions in lateral leads, case discussed with Dr. Wilkins--Pt is cleared to undergo LE surgery -Dr. Paiz : Pt cleared from vascular standpoint for podiatry intervention. -ID (Dr. Reyez) consulted: Vanc/Zosyn (Started on 06/05), intermittent vanco dosing based on vanc level -Podiatry (Dr. Garcia) consulted: Amputation on 06/11, Can dc to home if normal WBC count in AM, and follow up in [facility]. -Pt with post op surgical shoe -Pathology report shows bone with acute osteomyelitis, will discuss tx options with ID as patient will likely require longer course of ABx 2. Leukocytosis -WBC count trending down -Tender to palpation at the base of the great toe -Continue Zosyn (Started 06/11) -ID (Dr. Reyez) consulted -D/C depends on WBC count per podiatry 3. ESRD on HD (MWF) -Nephro (Dr. Flaherty) consulted -Vascular evaluated fistula -Cont home Lasix, Sevelamer -Pt requesting blood draws with dialysis 4. CAD/PVD -Cont ASA/Plavix 5. HTN -Cont home nifedipine, hydralazine 6. Anemia -Likely of chronic disease 2/2 ESRD -Epogen 10,000 7. FEN -PO Fluids -Continue to monitor lytes -Diabetic diet 8. PPx -no heparin at this time per vascular Dispo: D/C pending normal WBC count Visit type - Emergency Visit Emergency Visit: Yes ED Registration Date: 06/05/18 Care time: The patient presented to the Emergency Department on the above date and was hospitalized for further evaluation of their emergent condition. - New Patient This patient is new to me today: Yes Date on this admission: 06/17/18 - Critical Care Critical Care patient: No
[2018-06-17] MEDS ORDERED: PT OWN MED DRAWER 7, Y5N ONE ×2 (10:00→21:45)
[2018-06-17] MEDS: CLOPIDOGREL BISULFATE 75 MG TABLET (FP) PO SCH (10:03)
[2018-06-17] MEDS: FUROSEMIDE 40 MG TABLET (FP) PO SCH (10:03)
[2018-06-17] MEDS: ASPIRIN COATED 81 MG TABLET.EC PO SCH (10:03)
[2018-06-17] MEDS: CALCITRIOL 0.25 MCG CAPSULE (FP) PO SCH (10:03)
[2018-06-17] MEDS: NIFEdipine E.R 60 MG TABLET (UD) PO SCH ×2 (10:04→21:49)
[2018-06-17] MEDS: ACETAMINOPHEN 325 MG TABLET (FP) PO PRN (11:29)
--- NOTE | 2018-06-17 13:24 | PATH ---
Surgical Pathology Report Patient Name: KARI VILLALOBOS [facility]. Rec. #: [id number] /Age/Gender: 1950 (Age: 68) / M Account: [id number] Location: [address] [place] [address] MED/[facility] Taken: 06/11/2018 Received: 06/12/2018 Reported: 06/17/2018 Physicians: SB Durán M.D. Specimen(s) Received A: TENDON LEFT FOOT B: TOES 2-5 OF LEFT FOOT C: METATARSAL HEADS, LEFT FOOT Clinical History Gangrene and osteomyelitis of left foot Final Diagnosis A. TENDON OF LEFT FOOT, EXCISION: FIBROCONNECTIVE TISSUE (TENDON) SHOWING FOCAL ACUTE AND CHRONIC INFLAMMATION. B. TOES 2-5 OF LEFT FOOT, AMPUTATION: AMPUTATED FOUR TOES SHOWING SKIN AND SOFT TISSUE WITH GANGRENOUS NECROSIS, SEVERE ACUTE AND CHRONIC INFLAMMATION WITH ABSCESS FORMATION. BONE WITH ACUTE OSTEOMYELITIS. SEPARATE PIECES OF SKIN AND SOFT TISSUE WITH ABSCESS. C. METATARSAL HEADS, LEFT FOOT: TWO OUT OF FOUR METATARSAL HEADS SHOWING ACUTE OSTEOMYELITIS, INVOLVING ONE OF THE BONE MARGINS. Electronically Signed Genevieve Crabtree M.D. Gross Description A. Received in formalin, labeled "tendon of left the foot" are multiple moya to yellow portions of tendon and soft tissue measuring 2.5 x 2.5 x 0.2 cm. in aggregate. Fuel Cell Systems Engineer sections are submitted in one cassette. B. Received in formalin, labeled "toe 2-5 of left foot" consists of 4 amputated toes, which includes bone and dark dry nails. Three of toes were connected by bone and soft tissue at the proximal portion. They measure 5.0 x 1.2 x 1.2 cm, 4 x 1.2 x 1.2cm, and 3.8 x 1.0 x 1.0cm, respectively. Separate one toe measures 3.0 x 1.5 x 1.5cm is also present. Two of the toes (third and fourth toe) shos monzon brown gangrenous changes involving the dorsal and plantar aspect of the toe. There is slippage of the skin and edema in the other two toes. The skin margins of resection appear viable but focally involved by the gangrenous change. Also received are two pieces of soft tissue measuring 3.0 x 2.0 x1.5 cm in aggregate. Fuel Cell Systems Engineer sections submitted after decalcification of bone. 1- skin from second toe. 2,3- lesion with bone from third and fourth toe. 4-5th toe with skin margin. 5 separate soft tissue. 6- bone from second toe. 7 - bone from 5th toe C. Received in formalin, labeled "metatarsal heads, left foot" are undesignated four metatarsal heads measuring 2.0, 2.0, 1.7, and 1.6 cm in greatest dimension, respectively. The specimens are bisected and outside dealer sales representative sections from each metatarsal head are submitted in 4 cassettes after decalcification. __ EWA/06/13/2018 jose/06/13/2018
--- NOTE | 2018-06-17 13:50 | PN ---
Progress Note (short form) - Note Progress Note: Patient seen in bed. POD#6. Patient has no pain. present. States he has most pain on heel when ambulating he is walking to bathroom. +dry dressing, wbc=14.0 +sutures intact, +dark edges of incision line, -drainage , -mal odor normal post op Pain improved Dressing reapplied with betadine gauze. If wbc normalizes can be dc to home and follow up in [facility]. Post op shoe when up and about. Betadine dressing change daily. Reconsulted Dr. Paiz.
--- NOTE | 2018-06-17 14:37 | PN ---
Progress Note (short form) - Note Progress Note: Vascular Surgery Pt seen and examined. Dresssing changed. Left foot suture line with some disoloration. Edges of wound with some eschar. Will do angiogram on morning at nine to look at run off into foot. Kel Paiz DO Problem List - Problems (1) Gangrene of foot Code(s): I96 - GANGRENE, NOT ELSEWHERE CLASSIFIED (2) PAD (peripheral artery disease) Code(s): I73.9 - PERIPHERAL VASCULAR DISEASE, UNSPECIFIED (3) Diabetic foot infection Code(s): E11.628 - TYPE 2 DIABETES MELLITUS WITH OTHER SKIN COMPLICATIONS; L08.9 - LOCAL INFECTION OF THE SKIN AND SUBCUTANEOUS TISSUE, UNSP
[2018-06-17] MEDS ORDERED: oxyCODONE HCL 10 MG SUSTAINED ACTING TABLET PO PRN (15:25)
[2018-06-17] MEDS: oxyCODONE HCL 5 MG TABLET PO PRN (15:53)
[2018-06-17] MEDS ORDERED: SODIUM CHLORIDE 250 ML IV PRN (17:40)
--- NOTE | 2018-06-17 17:40 | PN ---
Progress Note, Physician History of Present Illness: Pt seen and examined at bedside. He is awake and alert. He complains of discomfort in foot. - Current Medication List Current Medications: Active Medications Acetaminophen (Tylenol -) 650 mg PO Q4H PRN PRN Reason: PAIN LEVEL 1-5 Last Admin: 06/17/18 11:29 Dose: 650 mg Aspirin (Ecotrin -) 81 mg PO DAILY [facility] Last Admin: 06/17/18 10:03 Dose: 81 mg Atorvastatin Calcium (Lipitor -) 40 mg PO HS [facility] Last Admin: 06/16/18 21:21 Dose: 40 mg Calcitriol (Rocaltrol -) 0.25 mcg PO DAILY [facility] Last Admin: 06/17/18 10:03 Dose: 0.25 mcg Clopidogrel Bisulfate (Plavix -) 75 mg PO DAILY [facility] Last Admin: 06/17/18 10:03 Dose: 75 mg Furosemide (Lasix -) 40 mg PO DAILY [facility] Last Admin: 06/17/18 10:03 Dose: 40 mg Hydralazine HCl (Apresoline -) 100 mg PO TID [facility] Last Admin: 06/17/18 15:05 Dose: 100 mg Piperacillin Sod/Tazobactam (Sod 2.25 gm/ Dextrose) 50 mls @ 100 mls/hr IVPB Q8H-IV [facility]; Protocol Last Admin: 06/17/18 17:27 Dose: 100 mls/hr Insulin Aspart (Novolog Vial Sliding Scale -) 1 vial SQ TIDAC [facility]; Protocol Last Admin: 06/17/18 16:54 Dose: 2 units Nifedipine (Procardia Xl -) 60 mg PO BID [facility] Last Admin: 06/17/18 10:04 Dose: 60 mg Oxycodone HCl (Roxicodone -) 5 mg PO Q4H PRN PRN Reason: PAIN LEVEL 6-10 Last Admin: 06/17/18 15:53 Dose: 5 mg Sevelamer Carbonate (Renvela -) 800 mg PO TIDCM [facility] Last Admin: 06/17/18 17:27 Dose: 800 mg - Objective Vital Signs: Vital Signs Temperature 98.4 F 06/17/18 14:32 Pulse Rate 67 06/17/18 14:32 Respiratory Rate 18 06/17/18 09:00 Blood Pressure 152/61 06/17/18 14:32 O2 Sat by Pulse Oximetry (%) 95 06/17/18 09:00 Constitutional: Yes: Calm Eyes: Yes: Conjunctiva Clear HENT: Yes: Atraumatic Cardiovascular: Yes: S1, S2 Respiratory: Yes: CTA Bilaterally Gastrointestinal: Yes: Normal Bowel Sounds, Soft Genitourinary: Yes: WNL Edema: No Wound/Incision: Yes: Dressing Dry and Intact Neurological: Yes: Oriented Psychiatric: Yes: Oriented Labs: CBC, BMP 06/17/18 07:24 06/16/18 14:45 INR, PTT INR 1.09 (0.83-1.09) 06/06/18 06:30 Problem List - Problems (1) ESRD (end stage renal disease) Code(s): N18.6 - END STAGE RENAL DISEASE (2) Gangrene Code(s): I96 - GANGRENE, NOT ELSEWHERE CLASSIFIED (3) PAD (peripheral artery disease) Code(s): I73.9 - PERIPHERAL VASCULAR DISEASE, UNSPECIFIED Assessment/Plan Current Medications Generic Name Dose Route Start Last Admin Trade Name Freq PRN Reason Stop Dose Admin Acetaminophen 650 mg 06/11/18 14:53 06/17/18 11:29 Tylenol - PO 650 mg Q4H PRN Administration PAIN LEVEL 1-5 Aspirin 81 mg 06/12/18 10:00 06/17/18 10:03 Ecotrin - PO 81 mg DAILY [facility] Administration Atorvastatin Calcium 40 mg 06/11/18 22:00 06/16/18 21:21 Lipitor - PO 40 mg HS [facility] Administration Calcitriol 0.25 mcg 06/12/18 10:00 06/17/18 10:03 Rocaltrol - PO 0.25 mcg DAILY [facility] Administration Clopidogrel Bisulfate 75 mg 06/12/18 10:00 06/17/18 10:03 Plavix - PO 75 mg DAILY [facility] Administration Furosemide 40 mg 06/12/18 10:00 06/17/18 10:03 Lasix - PO 40 mg DAILY [facility] Administration Hydralazine HCl 100 mg 06/11/18 22:00 06/17/18 15:05 Apresoline - PO 100 mg TID [facility] Administration Piperacillin Sod/Tazobactam 50 mls @ 100 mls/hr 06/11/18 18:00 06/17/18 17:27 Sod 2.25 gm/ Dextrose IVPB 100 mls/hr Q8H-IV [facility] Administration Protocol Insulin Aspart 1 vial 06/11/18 16:30 06/17/18 16:54 Novolog Vial Sliding Scale - SQ 2 units TIDAC [facility] Administration Protocol Nifedipine 60 mg 06/11/18 22:00 06/17/18 10:04 Procardia Xl - PO 60 mg BID [facility] Administration Oxycodone HCl 5 mg 06/17/18 15:29 06/17/18 15:53 Roxicodone - PO 5 mg Q4H PRN Administration PAIN LEVEL 6-10 Sevelamer Carbonate 800 mg 06/11/18 17:30 06/17/18 17:27 Renvela - PO 800 mg TIDCM [facility] Administration Impression 1. ESRD on HD 2. anemia 3. DM 4. HTN 5. toe infection/gangrene 6. PVD Plan - HD in am - renal diet - cont wound care - vascular input appreciated - avf 3:00 400 abf - epogen 10,000 for anemia
[2018-06-17] MEDS: ATORVASTATIN CA 40 MG TABLET (FP) PO SCH (21:49)
[2018-06-18] MEDS ORDERED: PIPERACILLIN/TAZOBACTAM 2.25 GM VIAL IVPB ONE ×2 (00:59→17:49)
[2018-06-18] MEDS ORDERED: DEXTROSE 5%-WATER - 50 ML IVPB ONE ×2 (00:59→17:49)
[2018-06-18] MEDS: PIPERACILLIN/TAZOB 2.25 GM 2.25 GM in DEXTROSE 5%-WATER - 50 ML IVPB SCH ×2 (01:24→10:30)
[2018-06-18] MEDS: hydrALAZINE HCL 50 MG TABLET (FP) PO SCH ×3 (05:32→21:28)
[2018-06-18] MEDS ORDERED: INSULIN (NOVOLOG) ASPART 100 UNITS/ML 10ML VIAL ONE ×2 (06:56→16:58)
[2018-06-18] MEDS: INSULIN SLIDING SCALE (NOVOLOG) 1 VIAL SQ SCH ×3 (07:00→17:04)
[2018-06-18] MEDS: SEVELAMER CARBONATE 800 MG TAB (FP) PO SCH ×3 (07:58→17:04)
--- NOTE | 2018-06-18 09:12 | PN ---
Progress Note, Physician Chief Complaint: Pt alert; pain in left foot is less frequent; increases during rehab when he walks. No chest pain or palpitations; no dyspnea. History of Present Illness: This is a 68 year-old male (miranda Guaman), with HTN, NIDDM, ESRD on HD (M,W,F), CAD (s/p "infarct" about one year ago--treated at [facility]; never had coronary angiogram), diastolic CHF, and peripheral arterial disease/known left 4th toe osteomyelitis and gangrene, [facility], who presents with worsening, "stabbing", intermittent pain since last night. He notes that his left 4th toe is darker and his 3rd toe is black, which is completely new according to both him and his . He denies fevers/chills or any other symptoms. Vital signs on arrival are unremarkable. - Current Medication List Current Medications: Active Medications Acetaminophen (Tylenol -) 650 mg PO Q4H PRN PRN Reason: PAIN LEVEL 1-5 Last Admin: 06/17/18 11:29 Dose: 650 mg Aspirin (Ecotrin -) 81 mg PO DAILY [facility] Last Admin: 06/17/18 10:03 Dose: 81 mg Atorvastatin Calcium (Lipitor -) 40 mg PO HS [facility] Last Admin: 06/17/18 21:49 Dose: 40 mg Calcitriol (Rocaltrol -) 0.25 mcg PO DAILY [facility] Last Admin: 06/17/18 10:03 Dose: 0.25 mcg Clopidogrel Bisulfate (Plavix -) 75 mg PO DAILY [facility] Last Admin: 06/17/18 10:03 Dose: 75 mg Epoetin Thomas (Epogen -) 10,000 unit IVPUSH ONCE ONE Stop: 06/18/18 17:41 Furosemide (Lasix -) 40 mg PO DAILY [facility] Last Admin: 06/17/18 10:03 Dose: 40 mg Hydralazine HCl (Apresoline -) 100 mg PO TID [facility] Last Admin: 06/18/18 05:32 Dose: 100 mg Piperacillin Sod/Tazobactam (Sod 2.25 gm/ Dextrose) 50 mls @ 100 mls/hr IVPB Q8H-IV [facility]; Protocol Last Admin: 06/18/18 01:24 Dose: 100 mls/hr Sodium Chloride (Normal Saline -) 250 mls @ 3,000 mls/hr IV PRN PRN PRN Reason: Hypotension during Dialysis Stop: 06/18/18 17:40 Insulin Aspart (Novolog Vial Sliding Scale -) 1 vial SQ TIDAC [facility]; Protocol Last Admin: 06/18/18 07:00 Dose: Not Given Nifedipine (Procardia Xl -) 60 mg PO BID [facility] Last Admin: 06/17/18 21:49 Dose: 60 mg Oxycodone HCl (Roxicodone -) 5 mg PO Q4H PRN PRN Reason: PAIN LEVEL 6-10 Last Admin: 06/17/18 15:53 Dose: 5 mg Sevelamer Carbonate (Renvela -) 800 mg PO TIDCM [facility] Last Admin: 06/18/18 07:58 Dose: 800 mg - Objective Vital Signs: Vital Signs Temperature 98.2 F 06/18/18 05:26 Pulse Rate 68 06/18/18 05:26 Respiratory Rate 20 06/18/18 05:26 Blood Pressure 133/66 06/18/18 05:26 O2 Sat by Pulse Oximetry (%) 95 06/17/18 22:00 Constitutional: Yes: No Distress Eyes: Yes: WNL HENT: Yes: WNL Neck: Yes: WNL Cardiovascular: Yes: S1, S2, S4 Respiratory: Yes: WNL Gastrointestinal: Yes: Soft ...Rectal Exam: Yes: Deferred Genitourinary: No: Anuria Musculoskeletal: Yes: Joint Stiffness, Muscle Weakness, Other Extremities: Yes: Cool Edema: LLE: 1+ Peripheral Pulses WNL: No Peripheral Pulses: Left Doralis Pedis: 1+, Right Dorsalis Pedis: 1+ Integumentary: Yes: Incision Wound/Incision: Yes: Dressing Dry and Intact Neurological: Yes: Alert, Oriented Psychiatric: Yes: WNL Labs: CBC, BMP 06/17/18 07:24 06/16/18 14:45 INR, PTT INR 1.09 (0.83-1.09) 06/06/18 06:30 Abnormal Lab Results 06/16/18 06/19/18 15:30 07:15 WBC 14.2 H RBC 2.71 L Hgb 8.6 L Hct 26.7 L MCV 98.4 H RDW 16.9 H Absolute Neuts (auto) 11.6 H Lymphocytes % 7.9 L D Hepatitis A Ab Total Positive H Hep B Core Total Ab Positive H Problem List - Problems (1) ESRD (end stage renal disease) Assessment/Plan: on hemodialysis 3x/week Code(s): N18.6 - END STAGE RENAL DISEASE (2) Anemia Code(s): D64.9 - ANEMIA, UNSPECIFIED Qualifiers: Vitamin B12 deficiency anemia type: other B12 deficiency (3) PAD (peripheral artery disease) Assessment/Plan: gangrenous toes of left foot led to their amputation. Continue pain management and phyical rehabilitation. Code(s): I73.9 - PERIPHERAL VASCULAR DISEASE, UNSPECIFIED (4) AV fistula Code(s): I77.0 - ARTERIOVENOUS FISTULA, ACQUIRED (5) Diabetes Code(s): E11.9 - TYPE 2 DIABETES MELLITUS WITHOUT COMPLICATIONS Qualifiers: Diabetes mellitus type: type 2 Diabetes mellitus nursing admin insulin use: without usp use Diabetes mellitus complication detail: with chronic kidney disease Chronic kidney disease stage: stage 5, not on chronic dialysis (6) Diastolic CHF Code(s): I50.30 - UNSPECIFIED DIASTOLIC (CONGESTIVE) HEART FAILURE (7) [place] cardiac risk >20% in next 10 years Assessment/Plan: The importance of aggressive risk-factor control was discussed in detail with pt and his daughter. Strong family hx DM. Pt is a candidate for cardiac rehabilitation (OK in the past year; mild ischemia on recent stress MIBI). Lower LDL even further with increase statin dose, diet, exercise. Code(s): Z91.89 - OTH PERSONAL RISK FACTORS, NOT ELSEWHERE CLASSIFIED (8) Hypertension Assessment/Plan: On hydralaziine, nifedipine, furosemide. Pt had to be given hydralazine IV this morning for elevated BP. F/u BP serially.Consider adding ACEI, ARB, or spironolactone. Code(s): I10 - ESSENTIAL (PRIMARY) HYPERTENSION Qualifiers:
[2018-06-18] MEDS ORDERED: EPOETIN ALFA 10,000 UNIT/1 ML VIAL IVPUSH ONE (11:00)
--- NOTE | 2018-06-18 11:04 | PN ---
Progress Note, Physician History of Present Illness: Pt seen and examined at bedside. He is tolerating HD. He denies shortness of breath. - Current Medication List Current Medications: Active Medications Acetaminophen (Tylenol -) 650 mg PO Q4H PRN PRN Reason: PAIN LEVEL 1-5 Last Admin: 06/17/18 11:29 Dose: 650 mg Aspirin (Ecotrin -) 81 mg PO DAILY [facility] Last Admin: 06/17/18 10:03 Dose: 81 mg Atorvastatin Calcium (Lipitor -) 40 mg PO HS [facility] Last Admin: 06/17/18 21:49 Dose: 40 mg Calcitriol (Rocaltrol -) 0.25 mcg PO DAILY [facility] Last Admin: 06/17/18 10:03 Dose: 0.25 mcg Clopidogrel Bisulfate (Plavix -) 75 mg PO DAILY [facility] Last Admin: 06/17/18 10:03 Dose: 75 mg Epoetin Thomas (Procrit -) 10,000 unit IVPUSH ONCE ONE Stop: 06/18/18 11:01 Furosemide (Lasix -) 40 mg PO DAILY [facility] Last Admin: 06/17/18 10:03 Dose: 40 mg Hydralazine HCl (Apresoline -) 100 mg PO TID [facility] Last Admin: 06/18/18 05:32 Dose: 100 mg Piperacillin Sod/Tazobactam (Sod 2.25 gm/ Dextrose) 50 mls @ 100 mls/hr IVPB Q8H-IV [facility]; Protocol Last Admin: 06/18/18 01:24 Dose: 100 mls/hr Sodium Chloride (Normal Saline -) 250 mls @ 3,000 mls/hr IV PRN PRN PRN Reason: Hypotension during Dialysis Stop: 06/18/18 17:40 Insulin Aspart (Novolog Vial Sliding Scale -) 1 vial SQ TIDAC [facility]; Protocol Last Admin: 06/18/18 07:00 Dose: Not Given Nifedipine (Procardia Xl -) 60 mg PO BID [facility] Last Admin: 06/17/18 21:49 Dose: 60 mg Oxycodone HCl (Roxicodone -) 5 mg PO Q4H PRN PRN Reason: PAIN LEVEL 6-10 Last Admin: 06/17/18 15:53 Dose: 5 mg Sevelamer Carbonate (Renvela -) 800 mg PO TIDCM [facility] Last Admin: 06/18/18 07:58 Dose: 800 mg - Objective Vital Signs: Vital Signs Temperature 98.4 F 06/18/18 09:55 Pulse Rate 78 06/18/18 11:00 Respiratory Rate 18 06/18/18 11:00 Blood Pressure 194/93 H 06/18/18 11:00 O2 Sat by Pulse Oximetry (%) 95 06/17/18 22:00 Constitutional: Yes: Calm Eyes: Yes: Conjunctiva Clear HENT: Yes: Atraumatic Neck: Yes: Supple Cardiovascular: Yes: S1, S2 Respiratory: Yes: CTA Bilaterally Gastrointestinal: Yes: WNL Genitourinary: Yes: WNL Edema: No Wound/Incision: Yes: Dressing Dry and Intact Neurological: Yes: Oriented Psychiatric: Yes: Oriented Labs: CBC, BMP 06/17/18 07:24 06/16/18 14:45 INR, PTT INR 1.09 (0.83-1.09) 06/06/18 06:30 Problem List - Problems (1) ESRD (end stage renal disease) Code(s): N18.6 - END STAGE RENAL DISEASE (2) Gangrene Code(s): I96 - GANGRENE, NOT ELSEWHERE CLASSIFIED (3) PAD (peripheral artery disease) Code(s): I73.9 - PERIPHERAL VASCULAR DISEASE, UNSPECIFIED Assessment/Plan Current Medications Generic Name Dose Route Start Last Admin Trade Name Freq PRN Reason Stop Dose Admin Acetaminophen 650 mg 06/11/18 14:53 06/17/18 11:29 Tylenol - PO 650 mg Q4H PRN Administration PAIN LEVEL 1-5 Aspirin 81 mg 06/12/18 10:00 06/17/18 10:03 Ecotrin - PO 81 mg DAILY [facility] Administration Atorvastatin Calcium 40 mg 06/11/18 22:00 06/17/18 21:49 Lipitor - PO 40 mg HS [facility] Administration Calcitriol 0.25 mcg 06/12/18 10:00 06/17/18 10:03 Rocaltrol - PO 0.25 mcg DAILY [facility] Administration Clopidogrel Bisulfate 75 mg 06/12/18 10:00 06/17/18 10:03 Plavix - PO 75 mg DAILY [facility] Administration Furosemide 40 mg 06/12/18 10:00 06/17/18 10:03 Lasix - PO 40 mg DAILY [facility] Administration Hydralazine HCl 100 mg 06/11/18 22:00 06/18/18 05:32 Apresoline - PO 100 mg TID [facility] Administration Piperacillin Sod/Tazobactam 50 mls @ 100 mls/hr 06/11/18 18:00 06/18/18 01:24 Sod 2.25 gm/ Dextrose IVPB 100 mls/hr Q8H-IV [facility] Administration Protocol Sodium Chloride 250 mls @ 3,000 mls/hr 06/17/18 17:40 Normal Saline - IV 06/18/18 17:40 PRN PRN Hypotension during Dialysis Insulin Aspart 1 vial 06/11/18 16:30 06/18/18 07:00 Novolog Vial Sliding Scale - SQ Not Given TIDAC [facility] Protocol Nifedipine 60 mg 06/11/18 22:00 06/17/18 21:49 Procardia Xl - PO 60 mg BID [facility] Administration Oxycodone HCl 5 mg 06/17/18 15:29 06/17/18 15:53 Roxicodone - PO 5 mg Q4H PRN Administration PAIN LEVEL 6-10 Sevelamer Carbonate 800 mg 06/11/18 17:30 06/18/18 07:58 Renvela - PO 800 mg TIDCM [facility] Administration Impression 1. ESRD on HD 2. anemia 3. DM 4. HTN 5. toe infection/gangrene 6. PVD Plan - HD today - vascular and podiatry follow up - cont wound care to foot - abx per ID - avf 3:00 400 abf - epogen 10,000 for anemia
[2018-06-18] MEDS ORDERED: PT OWN MED DRAWER 7, Y5N ONE ×2 (11:17→20:58)
[2018-06-18 11:20] LABS: HEMATOCRIT 25.7 % (35.4-49); HEMOGLOBIN 8.4 GM/dL (11.7-16.9); MCH 32.1 pg (25.7-33.7); MCHC 32.6 g/dl (32.0-35.9); MEAN CELL VOLUME 98.3 fl (80-96); MEAN PLT VOLUME 8.5 fl (7.5-11.1); PLATELET COUNT 344 K/MM3 (134-434); RBC 2.62 M/mm3 (4.00-5.60); RDW 16.9 % (11.9-15.9); WHITE BLOOD COUNT 14.6 K/mm3 (4.0-10.0)
[2018-06-18] MEDS: NIFEdipine E.R 60 MG TABLET (UD) PO SCH ×2 (11:24→21:28)
[2018-06-18 11:44] LABS: ANION GAP 14 MMOL/L (8-16); BLOOD UREA NITROGEN 39 mg/dL (7-18); CALCIUM 9.9 mg/dL (8.5-10.1); CHLORIDE 94 mmol/L (98-107); CO2 26 mmol/L (21-32); CREATININE 7.2 mg/dL (0.55-1.3); GLUCOSE,RANDOM 156 mg/dL (74-106); MAGNESIUM 2.6 mg/dL (1.8-2.4); PHOSPHOROUS 3.9 mg/dL (2.5-4.9); SODIUM 135 mmol/L (136-145)
[2018-06-18 13:33] LABS: CREATININE 2.6 mg/dL (0.55-1.3)
[2018-06-18] MEDS: oxyCODONE HCL 5 MG TABLET PO PRN (14:01)
[2018-06-18] MEDS: CLOPIDOGREL BISULFATE 75 MG TABLET (FP) PO SCH (14:02)
[2018-06-18] MEDS: ASPIRIN COATED 81 MG TABLET.EC PO SCH (14:03)
[2018-06-18] MEDS: CALCITRIOL 0.25 MCG CAPSULE (FP) PO SCH (14:03)
[2018-06-18] MEDS: FUROSEMIDE 40 MG TABLET (FP) PO SCH (14:03)
[2018-06-18] MEDS: ACETAMINOPHEN 325 MG TABLET (FP) PO PRN (14:03)
--- NOTE | 2018-06-18 19:12 | PN ---
Physical Exam: SUBJECTIVE: Patient seen and examined this morning POD#7. Request pain medications x1 over night. Hemodialysis today. Otherwise, No new complaints, No overnight events. Denies fevers, chills, chest pain, SOB, nausea, vomiting. OBJECTIVE: Vital Signs Period Temp Pulse Resp BP Sys/Cole Pulse Ox Last 24 Hr 98.1 F-99.2 F 68-78 18-20 133-201/60-93 95-96 GENERAL: The patient is awake, alert, and fully oriented, in no acute distress. HEAD: NCAT ENT: oropharynx clear without exudates, MMM NECK: supple, No JVD LUNGS: Breath sounds equal, clear to auscultation bilaterally, no wheezes HEART: Regular rate and rhythm, S1, S2, Systolic murmur at the LLSB ABDOMEN: Soft, nontender, nondistended, normoactive bowel sounds, no guarding EXTREMITIES: 2+ pulses, no edema. Clean LLE external dressing. Sutures intact over TransMetartarsal amputation of 2 to 5 digits without any active drainage. Slightly Tender to palpation at the base of digits 1-4. Gross lower extremity sensation intact b/l. Muscle strength 5/5 on Right and 4/5 on Left to Dorsiflexion and plantarflexion NEUROLOGICAL: Cranial nerves II through XII grossly intact. Normal speech, gait not observed. Laboratory Results - last 24 hr 06/17/18 06/18/18 06/18/18 21:40 05:20 10:00 WBC RBC Hgb Hct MCV MCH MCHC RDW Plt Count MPV Sodium 135 L Potassium 4.0 Chloride 94 L Carbon Dioxide 26 Anion Gap 14 BUN 39 H Creatinine 7.2 H Creat Clearance w eGFR 7.57 POC Glucometer 165 137 Random Glucose 156 H Calcium 9.9 Phosphorus 3.9 Magnesium 2.6 H Hep C Ab Diagnostic Liver Fibrosis Interp 06/18/18 06/18/18 06/18/18 10:00 13:00 17:04 WBC 14.6 H RBC 2.62 L Hgb 8.4 L Hct 25.7 L MCV 98.3 H MCH 32.1 MCHC 32.6 RDW 16.9 H Plt Count 344 MPV 8.5 Sodium Potassium Chloride Carbon Dioxide Anion Gap BUN 13 Creatinine 2.6 H Creat Clearance w eGFR POC Glucometer 215 Random Glucose Calcium Phosphorus Magnesium Hep C Ab Diagnostic Liver Fibrosis Interp Active Medications Acetaminophen (Tylenol -) 650 mg PO Q4H PRN PRN Reason: PAIN LEVEL 1-5 Last Admin: 06/18/18 14:03 Dose: 650 mg Aspirin (Ecotrin -) 81 mg PO DAILY [facility] Last Admin: 06/18/18 14:03 Dose: 81 mg Atorvastatin Calcium (Lipitor -) 40 mg PO HS [facility] Last Admin: 06/17/18 21:49 Dose: 40 mg Calcitriol (Rocaltrol -) 0.25 mcg PO DAILY [facility] Last Admin: 06/18/18 14:03 Dose: 0.25 mcg Clopidogrel Bisulfate (Plavix -) 75 mg PO DAILY [facility] Last Admin: 06/18/18 14:02 Dose: 75 mg Furosemide (Lasix -) 40 mg PO DAILY [facility] Last Admin: 06/18/18 14:03 Dose: 40 mg Hydralazine HCl (Apresoline -) 100 mg PO TID [facility] Last Admin: 06/18/18 14:02 Dose: 100 mg Insulin Aspart (Novolog Vial Sliding Scale -) 1 vial SQ TIDAC [facility]; Protocol Last Admin: 06/18/18 17:04 Dose: 4 units Nifedipine (Procardia Xl -) 60 mg PO BID [facility] Last Admin: 06/18/18 11:24 Dose: 60 mg Oxycodone HCl (Roxicodone -) 5 mg PO Q4H PRN PRN Reason: PAIN LEVEL 6-10 Last Admin: 06/18/18 14:01 Dose: 5 mg Sevelamer Carbonate (Renvela -) 800 mg PO TIDCM [facility] Last Admin: 06/18/18 17:04 Dose: 800 mg IMAGING: EKG: NORMAL SINUS RHYTHM, NONSPECIFIC T WAVE ABNORMALITY EKG done (06/10) revealed new T-wave inversions in lateral leads, Left Foot XRay: No fracture or osteomyelitis. CT ANGIOGRAM OF THE ABDOMEN AND PELVIS WITH BILATERAL LOWER EXTREMITY RUNOFFS: Predominant distal arterial disease suggestive of diabetic and/or nephrogenic vasculopathy. Predominant disease in the distal left popliteal and infrapopliteal arteries demonstrating interval improvement in flow and mild improvement in the degree of stenosis described on the prior exam, as described above. Essential flow to the foot is provided by the MIGUELITO. Peroneal artery is occluded and [employer] demonstrate short segmental occlusions with reconstitution of flow in the plantar artery which demonstrate robust flow. Flow is seen in the digital arteries. Predominant right infrapopliteal disease, as described above, grossly unchanged since the prior exam. Subcutaneous edema with mesenteric stranding possibly due to third spacing/anasarca. Under distended urinary bladder with suggestion of wall thickening. Correlate clinically for cystitis. ASSESSMENT/PLAN: 68 y/o M w/ PMHx CAD, MT, PVD, ESRD on HD (MWF), HTN, admitted for gangrene/ osteomyelitis of the left foot on 05/16, now presents with worsening pain and discoloration of the left 4th toe and blackening and pain of the 3rd toe 1. Gangrene of L 3rd and 4th toes, now s/p L TMA sparing great toe (06/11/18) -POD#7 s/p Amputation of Left toes 2-4 -Remains AFebrile, WBC trending down -CTA noted as above -EKG done (06/10) revealed new T-wave inversions in lateral leads, case discussed with Dr. Wilkins--Pt is cleared to undergo LE surgery -Dr. Paiz : Pt cleared from vascular standpoint for podiatry intervention. -ID (Dr. Reyez) consulted: Vanc/Zosyn (Started on 06/05), intermittent vanco dosing based on vanc level -Podiatry (Dr. Garcia) consulted: Amputation on 06/11, Can dc to home if normal WBC count in AM, and follow up in [facility]. -Pt with post op surgical shoe -Pathology report shows bone with acute osteomyelitis, will discuss tx options with ID as patient will likely require longer course of ABx 2. Leukocytosis -WBC count persists -Zosyn course completed (Started 06/11) -ID (Dr. Reyez) consulted -D/C depends on WBC count per podiatry -Vascular Surgery (Dr. Paiz): Will do angiogram on morning at nine to look at run off into foot. 3. ESRD on HD ([facility]) -Nephro (Dr. Flaherty) consulted -Vascular evaluated fistula -Cont home Lasix, Sevelamer -Pt requesting blood draws with dialysis 4. CAD/PVD -Cont ASA/Plavix 5. HTN -Cont home nifedipine, hydralazine 6. Anemia -Likely of chronic disease 2/2 ESRD -Epogen 10,000 7. FEN -PO Fluids -Continue to monitor lytes -Diabetic/Renal diet 8. PPx -no heparin at this time per vascular Dispo: D/C pending normal WBC count Visit type - Emergency Visit Emergency Visit: Yes ED Registration Date: 06/05/18 Care time: The patient presented to the Emergency Department on the above date and was hospitalized for further evaluation of their emergent condition. - New Patient This patient is new to me today: Yes Date on this admission: 06/18/18 - Critical Care Critical Care patient: No
--- NOTE | 2018-06-18 19:17 | PN ---
Teaching Attending Note Name of Resident: Linda Agrawal ATTENDING PHYSICIAN STATEMENT I saw and evaluated the patient. I reviewed the resident's note and discussed the case with the resident. I agree with the resident's findings and plan as documented. SUBJECTIVE: No fever or chills. has painin foot when he moves OBJECTIVE: NAD CV: RRR, 3/6 M at LLSB and to a lesser extent at LUSB . Lungs: CTAB Ext: no edema on legs . L foot with discoloration of suture line. DP 2 + . no discharge ASSESSMENT AND PLAN: 68 y/o man with h/o CAD, recent MD, PVD, ESRD on HD, HTN, HLP, Hep B , DM, and recent admission for L 4th toe gangrene and OM, s/p angiogram, atherectomy and angioplasty, who presented with increased pain in foot and change in L 3rd toe color. He was found to have a gangrenous 3rd and 4th toes. 1- Gangrenous 3rd and 4th L toes with OM. S/p transmetatarsal amputation with sparing of 1st toe - cont zosyn - amputaitonmargins are not clean. will d/w ID durationof Abx - for angio tomorrow due to necrotic suture line ' 2- H/o HTN: continue his HZN and Nifedipine . 3- H/O ESRD: HD per schedule - cont lasix - cont sevelamir 4- PVD : cont statin, asa and plavix HLOC d/w patient and his with hospital receptionist phone
[2018-06-18] MEDS: ATORVASTATIN CA 40 MG TABLET (FP) PO SCH (21:28)
[2018-06-19 00:12] LABS: HBSAG SCREEN Negative (Negative); HEP A AB, IGM Negative (Negative); HEP B CORE AB, TOT Positive (Negative)
[2018-06-19] MEDS: hydrALAZINE HCL 50 MG TABLET (FP) PO SCH ×3 (06:22→21:31)
[2018-06-19] MEDS: INSULIN SLIDING SCALE (NOVOLOG) 1 VIAL SQ SCH ×3 (06:22→17:16)
[2018-06-19 07:50] LABS: BASO % 0.5 % (0-2.0); EOS % 1.1 % (0-4.5); HEMATOCRIT 26.7 % (35.4-49); HEMOGLOBIN 8.6 GM/dL (11.7-16.9); LYMPH % 7.9 % (8-40); MCH 31.6 pg (25.7-33.7); MCHC 32.1 g/dl (32.0-35.9); MEAN CELL VOLUME 98.4 fl (80-96); MEAN PLT VOLUME 8.2 fl (7.5-11.1); MONO % 8.5 % (3.8-10.2); PLATELET COUNT 345 K/MM3 (134-434); RBC 2.71 M/mm3 (4.00-5.60); RDW 16.9 % (11.9-15.9); WHITE BLOOD COUNT 14.2 K/mm3 (4.0-10.0)
[2018-06-19] MEDS ORDERED: LIDOCAINE HCL 2% (20ML MULTI-DOSE VIAL) NR ONE (07:58)
[2018-06-19] MEDS ORDERED: HEPARIN NA (PORCINE) 5,000 UNITS/ML 1ML VIAL ONE (07:58)
[2018-06-19] MEDS: SEVELAMER CARBONATE 800 MG TAB (FP) PO SCH ×3 (08:17→17:23)
[2018-06-19] MEDS ORDERED: hydrALAZINE HCL 20 MG/ML VIAL ONE ×2 (08:42→10:19)
[2018-06-19] MEDS ORDERED: MIDAZOLAM HCL 2 MG/2 ML SINGLE DOSE VIAL ONE (08:43)
[2018-06-19] MEDS ORDERED: ONDANSETRON 4 MG/2 ML VIAL IVPUSH PRN ×2 (08:50→10:17)
[2018-06-19] MEDS ORDERED: SODIUM CHLORIDE 1,000 ML IV SCH (09:00)
[2018-06-19] MEDS ORDERED: LIDOCAINE HCL 2% (50ML VIAL) INF ONE ×2 (09:07)
[2018-06-19] MEDS ORDERED: HEPARIN NA (PORCINE) 5,000 UNITS/ML 1ML VIAL SQ ONE (09:07)
[2018-06-19] MEDS ORDERED: PROPOFOL 20 ML ONE ×2 (09:26)
--- NOTE | 2018-06-19 09:57 | OP ---
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
--- NOTE | 2018-06-19 09:59 | PN ---
Progress Note (short form) - Note Progress Note: Vascular Surgery Angiogram performed. No areas of stenosis. Good AT runoff in the foot. 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 Pt would benefit from HBO if pt can be eligible for insurance. Pt currently only has emergency medicaid that does not allow out patient treatment. Kel Paiz DO Problem List - Problems (1) Gangrene of foot Code(s): I96 - GANGRENE, NOT ELSEWHERE CLASSIFIED (2) PAD (peripheral artery disease) Code(s): I73.9 - PERIPHERAL VASCULAR DISEASE, UNSPECIFIED (3) Diabetic foot infection Code(s): E11.628 - TYPE 2 DIABETES MELLITUS WITH OTHER SKIN COMPLICATIONS; L08.9 - LOCAL INFECTION OF THE SKIN AND SUBCUTANEOUS TISSUE, UNSP
[2018-06-19] MEDS: FUROSEMIDE 40 MG TABLET (FP) PO SCH (10:00)
[2018-06-19] MEDS: CLOPIDOGREL BISULFATE 75 MG TABLET (FP) PO SCH (10:00)
[2018-06-19] MEDS: ASPIRIN COATED 81 MG TABLET.EC PO SCH (10:00)
[2018-06-19] MEDS: NIFEdipine E.R 60 MG TABLET (UD) PO SCH ×3 (10:00→21:31)
[2018-06-19] MEDS: CALCITRIOL 0.25 MCG CAPSULE (FP) PO SCH (10:00)
[2018-06-19] MEDS: SODIUM CHLORIDE 1,000 ML IV SCH (10:17)
[2018-06-19] MEDS ORDERED: hydrALAZINE HCL 20 MG/ML VIAL IVPUSH ONE (10:52)
--- NOTE | 2018-06-19 11:10 | OP ---
DATE OF OPERATION: 06/19/2018 PREOPERATIVE DIAGNOSIS: Nonhealing left foot amputation. POSTOPERATIVE DIAGNOSIS: Nonhealing left foot amputation. PROCEDURE: Aortogram, left lower extremity angiogram. SURGEON: Kel Farooq DO ANESTHESIA: Fractional. BLOOD LOSS: 20 mL. The patient is a 68-year-old male that recently had 3 toes amputated by Podiatry. He had an angiogram and angioplasty performed on May 20 by us where we opened the popliteal artery and the anterior tibial artery and the TP trunk and patient had good AT runoff into the foot at that time. After the toe amputations had been done the suture line seemed a little necrotic and so it was decided that we should take him back to shoot an angiogram to see if there was anything that we can open further into the foot. Patient was consented through an emergency services professional and understands all risks, benefits and alternatives. Patient was then taken to the operating room, laid on the operating room table in a supine manner. The areas of the right and left groin were prepped and draped in a sterile surgical manner. We then injected 10 mL of lidocaine 1% over the right common femoral artery. We then went ahead and used a micropuncture needle and punctured the right common femoral artery. A micropuncture wire was inserted and an additional 5-[place] sheath was inserted. We then placed a 0.035 floppy guidewire up into the aorta followed by an Omni Flush catheter. We then shot an aortogram showing that the aorta and iliac arteries were without any disease. We then went ahead and used our 0.035 floppy guidewire and went up and over to the left common femoral artery and placed our Omni Flush catheter there. We then shot an angiogram via hand injection of the left lower extremity showing that the common femoral artery, the profunda and the SFA are patent. The popliteal artery is patent. The below-knee popliteal artery is patent. The TP trunk is patent. The anterior tibial artery goes all the way into the foot. Peroneal artery stops after the origin. Posterior tibial artery goes down to the ankle and then is occluded and then gives off collateral circulation to the foot. Looking at the circulation there are no areas of stenosis. There is no bypassable disease. Patient has microvascular disease in the foot. The AT becomes the DP in the forefoot. There is no intervention needed at this time. The Omni Flush catheter was removed. The 5-[place] sheath was removed from the right groin. Pressure was held on the right groin for 5 minutes. After there was no bleeding. The area was wet and dried and Dermabond was placed. The patient tolerated the procedure with no complications. The patient transferred to PACU in stable condition. KEL FAROOQ DO [id number]
[2018-06-19] MEDS ORDERED: PT OWN MED DRAWER 7, Y5N ONE ×2 (11:55→21:17)
--- NOTE | 2018-06-19 15:00 | PN ---
Progress Note, Physician History of Present Illness: Pt seen and examined at bedside. He is awake and alert. He denies shortness of breath. - Current Medication List Current Medications: Active Medications Acetaminophen (Tylenol -) 650 mg PO Q4H PRN PRN Reason: PAIN LEVEL 1-5 Aspirin (Ecotrin -) 81 mg PO DAILY [facility] Atorvastatin Calcium (Lipitor -) 40 mg PO HS [facility] Calcitriol (Rocaltrol -) 0.25 mcg PO DAILY [facility] Clopidogrel Bisulfate (Plavix -) 75 mg PO DAILY [facility] Furosemide (Lasix -) 40 mg PO DAILY [facility] Hydralazine HCl (Apresoline -) 100 mg PO TID [facility] Last Admin: 06/19/18 14:39 Dose: 100 mg Sodium Chloride (Normal Saline -) 1,000 mls @ 42 mls/hr IV ASDIR [facility] Last Admin: 06/19/18 10:17 Dose: 42 mls/hr Piperacillin Sod/Tazobactam (Sod 2.25 gm/ Dextrose) 50 mls @ 100 mls/hr IVPB Q8H-IV [facility]; Protocol Insulin Aspart (Novolog Vial Sliding Scale -) 1 vial SQ TIDAC [facility]; Protocol Last Admin: 06/19/18 12:01 Dose: Not Given Nifedipine (Procardia Xl -) 60 mg PO BID [facility] Last Admin: 06/19/18 11:58 Dose: 60 mg Ondansetron HCl (Zofran Injection) 4 mg IVPUSH Q6H PRN PRN Reason: NAUSEA AND/OR VOMITING Oxycodone HCl (Roxicodone -) 5 mg PO Q4H PRN PRN Reason: PAIN LEVEL 6-10 Sevelamer Carbonate (Renvela -) 800 mg PO TIDCM [facility] Last Admin: 06/19/18 11:58 Dose: 800 mg - Objective Vital Signs: Vital Signs Temperature 98.9 F 06/19/18 12:00 Pulse Rate 72 06/19/18 12:00 Respiratory Rate 20 06/19/18 12:00 Blood Pressure 189/82 H 06/19/18 12:00 O2 Sat by Pulse Oximetry (%) 92 L 06/19/18 12:00 Constitutional: Yes: Calm Eyes: Yes: Conjunctiva Clear HENT: Yes: Atraumatic Neck: Yes: Supple Cardiovascular: Yes: S1, S2 Respiratory: Yes: CTA Bilaterally Gastrointestinal: Yes: Soft Genitourinary: Yes: WNL Edema: No Wound/Incision: Yes: Dressing Dry and Intact Neurological: Yes: Oriented Psychiatric: Yes: Oriented Labs: CBC, BMP 06/19/18 07:15 06/18/18 13:00 INR, PTT INR 1.09 (0.83-1.09) 06/06/18 06:30 Problem List - Problems (1) ESRD (end stage renal disease) Code(s): N18.6 - END STAGE RENAL DISEASE (2) Gangrene Code(s): I96 - GANGRENE, NOT ELSEWHERE CLASSIFIED (3) PAD (peripheral artery disease) Code(s): I73.9 - PERIPHERAL VASCULAR DISEASE, UNSPECIFIED Assessment/Plan Current Medications Generic Name Dose Route Start Last Admin Trade Name Freq PRN Reason Stop Dose Admin Acetaminophen 650 mg 06/19/18 10:17 Tylenol - PO Q4H PRN PAIN LEVEL 1-5 Aspirin 81 mg 06/20/18 10:00 Ecotrin - PO DAILY [facility] Atorvastatin Calcium 40 mg 06/19/18 22:00 Lipitor - PO HS [facility] Calcitriol 0.25 mcg 06/20/18 10:00 Rocaltrol - PO DAILY [facility] Clopidogrel Bisulfate 75 mg 06/20/18 10:00 Plavix - PO DAILY [facility] Furosemide 40 mg 06/20/18 10:00 Lasix - PO DAILY [facility] Hydralazine HCl 100 mg 06/19/18 14:00 06/19/18 14:39 Apresoline - PO 100 mg TID [facility] Administration Sodium Chloride 1,000 mls @ 42 mls/hr 06/19/18 10:17 06/19/18 10:17 Normal Saline - IV 42 mls/hr ASDIR [facility] Administration Piperacillin Sod/Tazobactam 50 mls @ 100 mls/hr 06/19/18 19:15 Sod 2.25 gm/ Dextrose IVPB Q8H-IV [facility] Protocol Insulin Aspart 1 vial 06/19/18 11:00 06/19/18 12:01 Novolog Vial Sliding Scale - SQ Not Given TIDAC [facility] Protocol Nifedipine 60 mg 06/19/18 22:00 06/19/18 11:58 Procardia Xl - PO 60 mg BID [facility] Administration Ondansetron HCl 4 mg 06/19/18 10:17 Zofran Injection IVPUSH Q6H PRN NAUSEA AND/OR VOMITING Oxycodone HCl 5 mg 06/19/18 10:17 Roxicodone - PO Q4H PRN PAIN LEVEL 6-10 Sevelamer Carbonate 800 mg 06/19/18 12:00 06/19/18 11:58 Renvela - PO 800 mg TIDCM [facility] Administration Impression 1. ESRD on HD 2. anemia 3. DM 4. HTN 5. toe infection/gangrene 6. PVD Plan - HD in am - abx per ID - vascular input appreciated - cont wound care to foot - abx per ID - avf 3:00 400 abf - epogen 10,000 for anemia
--- NOTE | 2018-06-19 15:19 | PN ---
Physical Exam: SUBJECTIVE: Patient seen and examined this morning POD#8. No new complaints, No overnight events. Denies fevers, chills, chest pain, SOB, nausea, vomiting. OBJECTIVE: Vital Signs Period Temp Pulse Resp BP Sys/Cole Pulse Ox Last 24 Hr 98.0 F-100.0 F 68-77 16-20 148-193/58-82 92-98 GENERAL: The patient is awake, alert, and fully oriented, in no acute distress. HEAD: NCAT ENT: oropharynx clear without exudates, MMM NECK: supple, No JVD LUNGS: Breath sounds equal, clear to auscultation bilaterally, no wheezes HEART: Regular rate and rhythm, S1, S2, Systolic murmur at the LLSB ABDOMEN: Soft, nontender, nondistended, normoactive bowel sounds, no guarding EXTREMITIES: 2+ pulses, no edema. Clean LLE external dressing. Sutures intact over TransMetartarsal amputation of 2 to 5 digits without any active drainage. Slightly Tender to palpation at the base of digits 1-4. Gross lower extremity sensation intact b/l. Muscle strength 5/5 on Right and 4/5 on Left to Dorsiflexion and plantarflexion NEUROLOGICAL: Cranial nerves II through XII grossly intact. Normal speech, gait not observed. Laboratory Results - last 24 hr 06/16/18 06/18/18 06/18/18 15:30 17:04 21:27 WBC RBC Hgb Hct MCV MCH MCHC RDW Plt Count MPV Absolute Neuts (auto) Neutrophils % Lymphocytes % Monocytes % Eosinophils % Basophils % Nucleated RBC % POC Glucometer 215 173 Hep A IgM Ab Confirm Negative Hepatitis A Ab Total Positive H Hep Bs Antigen Negative Hep Bs Antibody Reactive Hep B Core Total Ab Positive H Blood Type Antibody Screen 06/19/18 06/19/18 06/19/18 06:21 07:15 07:15 WBC 14.2 H RBC 2.71 L Hgb 8.6 L Hct 26.7 L MCV 98.4 H MCH 31.6 MCHC 32.1 RDW 16.9 H Plt Count 345 MPV 8.2 Absolute Neuts (auto) 11.6 H Neutrophils % 82.0 Lymphocytes % 7.9 L D Monocytes % 8.5 Eosinophils % 1.1 Basophils % 0.5 Nucleated RBC % 0 POC Glucometer 135 Hep A IgM Ab Confirm Hepatitis A Ab Total Hep Bs Antigen Hep Bs Antibody Hep B Core Total Ab Blood Type O POSITIVE Antibody Screen Negative Active Medications Acetaminophen (Tylenol -) 650 mg PO Q4H PRN PRN Reason: PAIN LEVEL 1-5 Aspirin (Ecotrin -) 81 mg PO DAILY [facility] Atorvastatin Calcium (Lipitor -) 40 mg PO HS [facility] Calcitriol (Rocaltrol -) 0.25 mcg PO DAILY [facility] Clopidogrel Bisulfate (Plavix -) 75 mg PO DAILY [facility] Epoetin Thomas (Epogen -) 12,000 unit IVPUSH ONCE ONE Stop: 06/20/18 15:01 Furosemide (Lasix -) 40 mg PO DAILY [facility] Hydralazine HCl (Apresoline -) 100 mg PO TID [facility] Last Admin: 06/19/18 14:39 Dose: 100 mg Sodium Chloride (Normal Saline -) 1,000 mls @ 42 mls/hr IV ASDIR [facility] Last Admin: 06/19/18 10:17 Dose: 42 mls/hr Piperacillin Sod/Tazobactam (Sod 2.25 gm/ Dextrose) 50 mls @ 100 mls/hr IVPB Q8H-IV [facility]; Protocol Sodium Chloride (Normal Saline -) 250 mls @ 3,000 mls/hr IV PRN PRN PRN Reason: Hypotension during Dialysis Stop: 06/20/18 15:00 Insulin Aspart (Novolog Vial Sliding Scale -) 1 vial SQ TIDAC [facility]; Protocol Last Admin: 06/19/18 12:01 Dose: Not Given Nifedipine (Procardia Xl -) 60 mg PO BID [facility] Last Admin: 06/19/18 11:58 Dose: 60 mg Ondansetron HCl (Zofran Injection) 4 mg IVPUSH Q6H PRN PRN Reason: NAUSEA AND/OR VOMITING Oxycodone HCl (Roxicodone -) 5 mg PO Q4H PRN PRN Reason: PAIN LEVEL 6-10 Sevelamer Carbonate (Renvela -) 800 mg PO TIDCM [facility] Last Admin: 06/19/18 11:58 Dose: 800 mg IMAGING: EKG: NORMAL SINUS RHYTHM, NONSPECIFIC T WAVE ABNORMALITY EKG done (06/10) revealed new T-wave inversions in lateral leads, Left Foot XRay: No fracture or osteomyelitis. CT ANGIOGRAM OF THE ABDOMEN AND PELVIS WITH BILATERAL LOWER EXTREMITY RUNOFFS: Predominant distal arterial disease suggestive of diabetic and/or nephrogenic vasculopathy. Predominant disease in the distal left popliteal and infrapopliteal arteries demonstrating interval improvement in flow and mild improvement in the degree of stenosis described on the prior exam, as described above. Essential flow to the foot is provided by the MIGUELITO. Peroneal artery is occluded and [employer] demonstrate short segmental occlusions with reconstitution of flow in the plantar artery which demonstrate robust flow. Flow is seen in the digital arteries. Predominant right infrapopliteal disease, as described above, grossly unchanged since the prior exam. Subcutaneous edema with mesenteric stranding possibly due to third spacing/anasarca. Under distended urinary bladder with suggestion of wall thickening. Correlate clinically for cystitis. ASSESSMENT/PLAN: 68 y/o M w/ PMHx CAD, IA, PVD, ESRD on HD (MWF), HTN, admitted for gangrene/ osteomyelitis of the left foot on 05/16, now presents with worsening pain and discoloration of the left 4th toe and blackening and pain of the 3rd toe 1. Gangrene of L 3rd and 4th toes, now s/p L TMA sparing great toe (06/11/) -POD#8 s/p Amputation of Left toes 2-4 -Remains AFebrile, WBC trending down -CTA noted as above -EKG done (06/10) revealed new T-wave inversions in lateral leads, case discussed with Dr. Wilkins--Pt is cleared to undergo LE surgery -Dr. Paiz: Angiogram performed. No areas of stenosis. 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 Pt would benefit from HBO. -ID (Dr. Reyez) consulted: Vanc/Zosyn (Started on 06/05), intermittent vanco dosing based on vanc level -Podiatry (Dr. Garcia) consulted: Amputation on 06/11, Can dc to home if normal WBC count in AM, and follow up in [facility]. -Pt with post op surgical shoe -Pathology report shows bone with acute osteomyelitis, will discuss tx options with ID as patient will likely require longer course of ABx 2. Leukocytosis -WBC count persists -Continue Zosyn course (Started 06/11) -ID (Dr. Reyez) consulted -D/C depends on WBC count per podiatry -Vascular Surgery (Dr. Paiz): Will do angiogram on thurs morning at nine to look at run off into foot. 3. ESRD on HD (MWF) -Nephro (Dr. Flaherty) consulted -Vascular evaluated fistula -Cont home Lasix, Sevelamer -Pt requesting blood draws with dialysis 4. CAD/PVD -Cont ASA/Plavix 5. HTN -Cont home nifedipine, hydralazine 6. Anemia -Likely of chronic disease 2/2 ESRD -Epogen 12,000 7. FEN -PO Fluids -Continue to monitor lytes -Diabetic/Renal diet 8. PPx -no heparin at this time per vascular Dispo: D/C pending normal WBC count Visit type - Emergency Visit Emergency Visit: Yes ED Registration Date: 06/05/18 Care time: The patient presented to the Emergency Department on the above date and was hospitalized for further evaluation of their emergent condition. - New Patient This patient is new to me today: No - Critical Care Critical Care patient: No - Discharge Referral Referred to [facility] Med P.C.: No
--- NOTE | 2018-06-19 16:12 | PN ---
Teaching Attending Note Name of Resident: Linda Agrawal ATTENDING PHYSICIAN STATEMENT I saw and evaluated the patient. I reviewed the resident's note and discussed the case with the resident. I agree with the resident's findings and plan as documented. SUBJECTIVE: No fever or chills. No CP or SOB . OBJECTIVE: NAD CV: RRR, 3/6 M at LLSB and to a lesser extent at LUSB . Lungs: CTAB Ext: no edema on legs . L foot with clean dressing ASSESSMENT AND PLAN: 68 y/o man with h/o CAD, recent AR, PVD, ESRD on HD, HTN, HLP, Hep B , DM, and recent admission for L 4th toe gangrene and OM, s/p angiogram, atherectomy and angioplasty, who presented with increased pain in foot and change in L 3rd toe color. He was found to have a gangrenous 3rd and 4th toes. 1- Gangrenous 3rd and 4th L toes with OM. S/p transmetatarsal amputation with sparing of 1st toe - cont zosyn - amputation margins are not clean. - Angio with no blockage.. small vessel disease - d/w ID: will decide on Abx as out pt . 2- H/o HTN: continue his HZN and Nifedipine . 3- H/O ESRD: HD per schedule - cont lasix - cont sevelamir 4- PVD : cont statin, asa and plavix discharge is pending decision on appropriate out patient regimen for abx .
[2018-06-19] MEDS ORDERED: DEXTROSE 5%-WATER - 50 ML IVPB ONE (18:25)
[2018-06-19] MEDS ORDERED: PIPERACILLIN/TAZOBACTAM 2.25 GM VIAL IVPB ONE (18:25)
[2018-06-19] MEDS: PIPERACILLIN/TAZOB 2.25 GM 2.25 GM in DEXTROSE 5%-WATER - 50 ML IVPB SCH (18:35)
[2018-06-19] MEDS ORDERED: PIPERACILLIN/TAZOB 2.25 GM 2.25 GM in DEXTROSE 5%-WATER - 50 ML IVPB SCH (19:15)
[2018-06-19] MEDS ORDERED: ATORVASTATIN CA 40 MG TABLET (FP) PO SCH (22:00)
--- NOTE | 2018-06-19 23:44 | PN ---
Progress Note, Physician Chief Complaint: Pt alert and oriented; no chest pain or dyspnea. Left foot intermittent pain. History of Present Illness: This is a 68 year-old male (b. Deniz), with HTN, NIDDM, ESRD on HD (M,W,F), CAD (s/p "infarct" about one year ago--treated at [facility]; never had coronary angiogram), diastolic CHF, and peripheral arterial disease/known left 4th toe osteomyelitis and gangrene, [facility], who presents with worsening, "stabbing", intermittent pain since last night. He notes that his left 4th toe is darker and his 3rd toe is black, which is completely new according to both him and his . He denies fevers/chills or any other symptoms. Vital signs on arrival are unremarkable. - Current Medication List Current Medications: Active Medications Acetaminophen (Tylenol -) 650 mg PO Q4H PRN PRN Reason: PAIN LEVEL 1-5 Aspirin (Ecotrin -) 81 mg PO DAILY [facility] Atorvastatin Calcium (Lipitor -) 80 mg PO HS [facility] Calcitriol (Rocaltrol -) 0.25 mcg PO DAILY [facility] Clopidogrel Bisulfate (Plavix -) 75 mg PO DAILY [facility] Epoetin Thomas (Epogen -) 12,000 unit IVPUSH ONCE ONE Stop: 06/20/18 15:01 Furosemide (Lasix -) 40 mg PO DAILY [facility] Hydralazine HCl (Apresoline -) 100 mg PO TID [facility] Last Admin: 06/19/18 21:31 Dose: 100 mg Sodium Chloride (Normal Saline -) 1,000 mls @ 42 mls/hr IV ASDIR [facility] Last Admin: 06/19/18 10:17 Dose: 42 mls/hr Piperacillin Sod/Tazobactam (Sod 2.25 gm/ Dextrose) 50 mls @ 100 mls/hr IVPB Q8H-IV [facility]; Protocol Last Admin: 06/19/18 18:35 Dose: 100 mls/hr Sodium Chloride (Normal Saline -) 250 mls @ 3,000 mls/hr IV PRN PRN PRN Reason: Hypotension during Dialysis Stop: 06/20/18 15:00 Insulin Aspart (Novolog Vial Sliding Scale -) 1 vial SQ TIDAC [facility]; Protocol Last Admin: 06/19/18 17:16 Dose: 4 units Nifedipine (Procardia Xl -) 60 mg PO BID [facility] Last Admin: 06/19/18 21:31 Dose: 60 mg Ondansetron HCl (Zofran Injection) 4 mg IVPUSH Q6H PRN PRN Reason: NAUSEA AND/OR VOMITING Oxycodone HCl (Roxicodone -) 5 mg PO Q4H PRN PRN Reason: PAIN LEVEL 6-10 Sevelamer Carbonate (Renvela -) 800 mg PO TIDCM [facility] Last Admin: 06/19/18 17:23 Dose: 800 mg - Objective Vital Signs: Vital Signs Temperature 98.6 F 06/19/18 21:52 Pulse Rate 61 06/19/18 21:52 Respiratory Rate 20 06/19/18 21:52 Blood Pressure 139/53 L 06/19/18 21:52 O2 Sat by Pulse Oximetry (%) 92 L 06/19/18 12:00 Constitutional: Yes: Calm Eyes: Yes: WNL HENT: Yes: WNL Neck: Yes: WNL Cardiovascular: Yes: Regular Rate and Rhythm, S1, S2, S4 Respiratory: Yes: Regular Gastrointestinal: Yes: Soft ...Rectal Exam: Yes: Deferred Genitourinary: No: Anuria Musculoskeletal: Yes: Muscle Weakness Extremities: Yes: Cool Edema: No Peripheral Pulses WNL: No Peripheral Pulses: Left Doralis Pedis: 1+ Integumentary: Yes: Incision Wound/Incision: Yes: Dressing Dry and Intact Psychiatric: Yes: Alert, Oriented Labs: CBC, BMP 06/19/18 07:15 06/18/18 13:00 INR, PTT INR 1.09 (0.83-1.09) 06/06/18 06:30 Abnormal Lab Results 06/16/18 06/19/18 15:30 07:15 WBC 14.2 H RBC 2.71 L Hgb 8.6 L Hct 26.7 L MCV 98.4 H RDW 16.9 H Absolute Neuts (auto) 11.6 H Lymphocytes % 7.9 L D Hepatitis A Ab Total Positive H Hep B Core Total Ab Positive H Problem List - Problems (1) ESRD (end stage renal disease) Assessment/Plan: on hemodialysis 3x/week Code(s): N18.6 - END STAGE RENAL DISEASE (2) Anemia Code(s): D64.9 - ANEMIA, UNSPECIFIED Qualifiers: Vitamin B12 deficiency anemia type: other B12 deficiency (3) PAD (peripheral artery disease) Assessment/Plan: gangrenous toes of left foot led to amputation of all except big toe. Continue pain management and physical rehabilitation. Code(s): I73.9 - PERIPHERAL VASCULAR DISEASE, UNSPECIFIED (4) AV fistula Code(s): I77.0 - ARTERIOVENOUS FISTULA, ACQUIRED (5) Diabetes Code(s): E11.9 - TYPE 2 DIABETES MELLITUS WITHOUT COMPLICATIONS Qualifiers: Diabetes mellitus type: type 2 Diabetes mellitus nursing home insulin use: without nursing home use Diabetes mellitus complication detail: with chronic kidney disease Chronic kidney disease stage: stage 5, not on chronic dialysis (6) Diastolic CHF Code(s): I50.30 - UNSPECIFIED DIASTOLIC (CONGESTIVE) HEART FAILURE (7) [place] cardiac risk >20% in next 10 years Assessment/Plan: The importance of aggressive risk-factor control was discussed in detail with pt and his daughter. Strong family hx DM; pt himself has had DM for many years. Pt is a candidate for cardiac rehabilitation (CA in the past year; mild ischemia on recent stress MIBI). Lower LDL even further with increase statin dose (to atorvastatin 80 mg daily), diet, exercise. Code(s): Z91.89 - OTH PERSONAL RISK FACTORS, NOT ELSEWHERE CLASSIFIED (8) Hypertension Assessment/Plan: On hydralaziine, nifedipine, furosemide. Pt had to be given hydralazine IVP this morning for elevated BP. F/u BP serially. Consider adding ACEI, ARB, or spironolactone. Code(s): I10 - ESSENTIAL (PRIMARY) HYPERTENSION Qualifiers:
[2018-06-20] MEDS ORDERED: DEXTROSE 5%-WATER - 50 ML IVPB ONE ×3 (01:46→17:24)
[2018-06-20] MEDS ORDERED: PIPERACILLIN/TAZOBACTAM 2.25 GM VIAL IVPB ONE ×3 (01:46→17:24)
[2018-06-20] MEDS: PIPERACILLIN/TAZOB 2.25 GM 2.25 GM in DEXTROSE 5%-WATER - 50 ML IVPB SCH ×3 (01:54→17:28)
[2018-06-20] MEDS: hydrALAZINE HCL 50 MG TABLET (FP) PO SCH ×3 (06:25→22:31)
[2018-06-20] MEDS: INSULIN SLIDING SCALE (NOVOLOG) 1 VIAL SQ SCH ×3 (06:25→17:01)
--- NOTE | 2018-06-20 07:44 | PN ---
Progress Note (short form) - Note Progress Note: POD #1 Alert. Sitting up in bed. No acute events since surgery. Patient without complaints. AVSS. Afebrile. Gen: nad LE: groin stab incision c/d/i. no hematoma Problem List - Problems (1) PAD (peripheral artery disease) Assessment/Plan: POD #1 s/p Aortogram, LLE angiogram--> good AT runoff to forefoot with microvascular disease in the foot Cont care per primary team. No further vascular surgical intervention needed, reconsult prn On behalf of Dr. Paiz, thank you for the opportunity to participate in your patient's care. Code(s): I73.9 - PERIPHERAL VASCULAR DISEASE, UNSPECIFIED (2) Diabetic foot infection Code(s): E11.628 - TYPE 2 DIABETES MELLITUS WITH OTHER SKIN COMPLICATIONS; L08.9 - LOCAL INFECTION OF THE SKIN AND SUBCUTANEOUS TISSUE, UNSP
[2018-06-20] MEDS: SEVELAMER CARBONATE 800 MG TAB (FP) PO SCH ×3 (08:34→17:28)
[2018-06-20] MEDS ORDERED: SODIUM CHLORIDE 250 ML IV PRN (09:00)
[2018-06-20] MEDS ORDERED: EPOETIN ALFA 10,000 UNIT, EPOETIN ALFA 2,000 UNIT IVPUSH ONE (09:00)
[2018-06-20 09:29] LABS: HEMATOCRIT 23.7 % (35.4-49); HEMOGLOBIN 7.6 GM/dL (11.7-16.9); MCH 31.5 pg (25.7-33.7); MCHC 32.2 g/dl (32.0-35.9); MEAN CELL VOLUME 97.8 fl (80-96); MEAN PLT VOLUME 8.2 fl (7.5-11.1); PLATELET COUNT 315 K/MM3 (134-434); RBC 2.42 M/mm3 (4.00-5.60); RDW 16.9 % (11.9-15.9); WHITE BLOOD COUNT 14.1 K/mm3 (4.0-10.0)
[2018-06-20 10:09] LABS: ALBUMIN 2.3 g/dl (3.4-5.0); ALK PHOS 468 U/L (45-117); ANION GAP 11 MMOL/L (8-16); BILIRUBIN,TOTAL 0.8 mg/dL (0.2-1); BLOOD UREA NITROGEN 37 mg/dL (7-18); CALCIUM 10.2 mg/dL (8.5-10.1); CHLORIDE 95 mmol/L (98-107); CO2 29 mmol/L (21-32); CREATININE 6.8 mg/dL (0.55-1.3); GLUCOSE,RANDOM 152 mg/dL (74-106); POTASSIUM 3.9 mmol/L (3.5-5.1); SGOT/AST 35 U/L (15-37); SGPT/ALT 17 U/L (13-61); SODIUM 135 mmol/L (136-145); TOT PROT 7.5 g/dl (6.4-8.2)
[2018-06-20] MEDS ORDERED: PT OWN MED DRAWER 7, Y5N ONE ×3 (10:27→21:57)
[2018-06-20] MEDS: CALCITRIOL 0.25 MCG CAPSULE (FP) PO SCH (12:26)
[2018-06-20] MEDS: FUROSEMIDE 40 MG TABLET (FP) PO SCH (12:29)
[2018-06-20] MEDS: CLOPIDOGREL BISULFATE 75 MG TABLET (FP) PO SCH (12:29)
[2018-06-20] MEDS: NIFEdipine E.R 60 MG TABLET (UD) PO SCH ×2 (12:29→22:31)
[2018-06-20] MEDS: ASPIRIN COATED 81 MG TABLET.EC PO SCH (12:29)
[2018-06-20] MEDS: SODIUM CHLORIDE 1,000 ML IV SCH (12:30)
--- NOTE | 2018-06-20 13:18 | PN ---
Progress Note (short form) - Note Progress Note: Patient seen in bed. Patient has no pain. Had another procedure yesterday. +dry dressing, wbc=14.1 +sutures intact, +dark edges of incision line, -drainage , -mal odor, -signs of cellulitis left foot normal post op Pain improved Dressing reapplied with betadine gauze. Wound continues to demarcate. Might have to revise foot further. Will observe over weekend. Anticipate revision of TMA. Discussed with Dr. Paiz blood supply poor distal 1/3 of foot. Post op shoe when up and about. Betadine dressing change daily.
[2018-06-20] MEDS: oxyCODONE HCL 5 MG TABLET PO PRN (14:38)
--- NOTE | 2018-06-20 14:50 | PN ---
Progress Note, Physician History of Present Illness: No c/o foot pain at rest Afebrile WBC increased 14k Path report shows osteo at resected margin - Current Medication List Current Medications: Active Medications Acetaminophen (Tylenol -) 650 mg PO Q4H PRN PRN Reason: PAIN LEVEL 1-5 Aspirin (Ecotrin -) 81 mg PO DAILY [facility] Last Admin: 06/20/18 12:29 Dose: 81 mg Atorvastatin Calcium (Lipitor -) 80 mg PO HS [facility] Calcitriol (Rocaltrol -) 0.25 mcg PO DAILY [facility] Last Admin: 06/20/18 12:26 Dose: 0.25 mcg Clopidogrel Bisulfate (Plavix -) 75 mg PO DAILY [facility] Last Admin: 06/20/18 12:29 Dose: 75 mg Furosemide (Lasix -) 40 mg PO DAILY [facility] Last Admin: 06/20/18 12:29 Dose: 40 mg Hydralazine HCl (Apresoline -) 100 mg PO TID [facility] Last Admin: 06/20/18 14:38 Dose: 100 mg Sodium Chloride (Normal Saline -) 1,000 mls @ 42 mls/hr IV ASDIR [facility] Last Admin: 06/20/18 12:30 Dose: Not Given Piperacillin Sod/Tazobactam (Sod 2.25 gm/ Dextrose) 50 mls @ 100 mls/hr IVPB Q8H-IV [facility]; Protocol Last Admin: 06/20/18 12:30 Dose: 100 mls/hr Insulin Aspart (Novolog Vial Sliding Scale -) 1 vial SQ TIDAC [facility]; Protocol Last Admin: 06/20/18 12:33 Dose: 2 units Nifedipine (Procardia Xl -) 60 mg PO BID [facility] Last Admin: 06/20/18 12:29 Dose: 60 mg Ondansetron HCl (Zofran Injection) 4 mg IVPUSH Q6H PRN PRN Reason: NAUSEA AND/OR VOMITING Oxycodone HCl (Roxicodone -) 5 mg PO Q4H PRN PRN Reason: PAIN LEVEL 6-10 Last Admin: 06/20/18 14:38 Dose: 5 mg Sevelamer Carbonate (Renvela -) 800 mg PO TIDCM [facility] Last Admin: 06/20/18 12:29 Dose: 800 mg - Objective Vital Signs: Vital Signs Temperature 97.9 F 06/20/18 08:30 Pulse Rate 72 06/20/18 11:40 Respiratory Rate 18 06/20/18 11:40 Blood Pressure 174/76 H 06/20/18 11:40 O2 Sat by Pulse Oximetry (%) 92 L 06/19/18 21:00 Constitutional: Yes: Well Nourished Cardiovascular: Yes: Regular Rate and Rhythm, S1, S2 Respiratory: Yes: CTA Bilaterally Gastrointestinal: Yes: Normal Bowel Sounds, Soft. No: Tenderness Extremities: Yes: Other (S/P partial TMA wound intact) Labs: CBC, BMP 06/20/18 08:35 06/20/18 08:35 INR, PTT INR 1.09 (0.83-1.09) 06/06/18 06:30 Assessment/Plan S/P partial TMA Leukocytosis Path shows osteomyelitis at resected margins Advise outpatient treatment for osteo with: Vancomycin 500mg at each HD x 4weeks Levaquin 250mg po q48h x 4 weeks
[2018-06-20] MEDS ORDERED: EPOETIN ALFA 2,000 UNIT/1 ML VIAL IVPUSH ONE (15:00)
--- NOTE | 2018-06-20 15:43 | PN ---
Progress Note, Physician History of Present Illness: Pt seen and examined at bedside. He is awake and alert. He denies shortness of breath. - Current Medication List Current Medications: Active Medications Acetaminophen (Tylenol -) 650 mg PO Q4H PRN PRN Reason: PAIN LEVEL 1-5 Aspirin (Ecotrin -) 81 mg PO DAILY [facility] Last Admin: 06/20/18 12:29 Dose: 81 mg Atorvastatin Calcium (Lipitor -) 80 mg PO HS [facility] Calcitriol (Rocaltrol -) 0.25 mcg PO DAILY [facility] Last Admin: 06/20/18 12:26 Dose: 0.25 mcg Clopidogrel Bisulfate (Plavix -) 75 mg PO DAILY [facility] Last Admin: 06/20/18 12:29 Dose: 75 mg Furosemide (Lasix -) 40 mg PO DAILY [facility] Last Admin: 06/20/18 12:29 Dose: 40 mg Hydralazine HCl (Apresoline -) 100 mg PO TID [facility] Last Admin: 06/20/18 14:38 Dose: 100 mg Sodium Chloride (Normal Saline -) 1,000 mls @ 42 mls/hr IV ASDIR [facility] Last Admin: 06/20/18 12:30 Dose: Not Given Piperacillin Sod/Tazobactam (Sod 2.25 gm/ Dextrose) 50 mls @ 100 mls/hr IVPB Q8H-IV [facility]; Protocol Last Admin: 06/20/18 12:30 Dose: 100 mls/hr Insulin Aspart (Novolog Vial Sliding Scale -) 1 vial SQ TIDAC [facility]; Protocol Last Admin: 06/20/18 12:33 Dose: 2 units Nifedipine (Procardia Xl -) 60 mg PO BID [facility] Last Admin: 06/20/18 12:29 Dose: 60 mg Ondansetron HCl (Zofran Injection) 4 mg IVPUSH Q6H PRN PRN Reason: NAUSEA AND/OR VOMITING Oxycodone HCl (Roxicodone -) 5 mg PO Q4H PRN PRN Reason: PAIN LEVEL 6-10 Last Admin: 06/20/18 14:38 Dose: 5 mg Sevelamer Carbonate (Renvela -) 800 mg PO TIDCM [facility] Last Admin: 06/20/18 12:29 Dose: 800 mg - Objective Vital Signs: Vital Signs Temperature 98.0 F 06/20/18 14:55 Pulse Rate 73 06/20/18 14:55 Respiratory Rate 18 06/20/18 11:40 Blood Pressure 182/72 H 06/20/18 14:55 O2 Sat by Pulse Oximetry (%) 92 L 06/19/18 21:00 Constitutional: Yes: Calm Eyes: Yes: Conjunctiva Clear HENT: Yes: Atraumatic Cardiovascular: Yes: S1, S2 Respiratory: Yes: CTA Bilaterally Gastrointestinal: Yes: Soft Genitourinary: Yes: WNL Edema: No Wound/Incision: Yes: Dressing Dry and Intact Neurological: Yes: Oriented Labs: CBC, BMP 06/20/18 08:35 06/20/18 08:35 INR, PTT INR 1.09 (0.83-1.09) 06/06/18 06:30 Problem List - Problems (1) ESRD (end stage renal disease) Code(s): N18.6 - END STAGE RENAL DISEASE (2) Gangrene Code(s): I96 - GANGRENE, NOT ELSEWHERE CLASSIFIED (3) PAD (peripheral artery disease) Code(s): I73.9 - PERIPHERAL VASCULAR DISEASE, UNSPECIFIED Assessment/Plan Current Medications Generic Name Dose Route Start Last Admin Trade Name Freq PRN Reason Stop Dose Admin Acetaminophen 650 mg 06/19/18 10:17 Tylenol - PO Q4H PRN PAIN LEVEL 1-5 Aspirin 81 mg 06/20/18 10:00 06/20/18 12:29 Ecotrin - PO 81 mg DAILY [facility] Administration Atorvastatin Calcium 80 mg 06/20/18 22:00 Lipitor - PO HS [facility] Calcitriol 0.25 mcg 06/20/18 10:00 06/20/18 12:26 Rocaltrol - PO 0.25 mcg DAILY [facility] Administration Clopidogrel Bisulfate 75 mg 06/20/18 10:00 06/20/18 12:29 Plavix - PO 75 mg DAILY [facility] Administration Furosemide 40 mg 06/20/18 10:00 06/20/18 12:29 Lasix - PO 40 mg DAILY [facility] Administration Hydralazine HCl 100 mg 06/19/18 14:00 06/20/18 14:38 Apresoline - PO 100 mg TID [facility] Administration Sodium Chloride 1,000 mls @ 42 mls/hr 06/19/18 10:17 06/20/18 12:30 Normal Saline - IV Not Given ASDIR [facility] Piperacillin Sod/Tazobactam 50 mls @ 100 mls/hr 06/19/18 19:15 06/20/18 12:30 Sod 2.25 gm/ Dextrose IVPB 100 mls/hr Q8H-IV [facility] Administration Protocol Insulin Aspart 1 vial 06/19/18 11:00 06/20/18 12:33 Novolog Vial Sliding Scale - SQ 2 units TIDAC [facility] Administration Protocol Nifedipine 60 mg 06/19/18 22:00 06/20/18 12:29 Procardia Xl - PO 60 mg BID [facility] Administration Ondansetron HCl 4 mg 06/19/18 10:17 Zofran Injection IVPUSH Q6H PRN NAUSEA AND/OR VOMITING Oxycodone HCl 5 mg 06/19/18 10:17 06/20/18 14:38 Roxicodone - PO 5 mg Q4H PRN Administration PAIN LEVEL 6-10 Sevelamer Carbonate 800 mg 06/19/18 12:00 06/20/18 12:29 Renvela - PO 800 mg TIDCM [facility] Administration Impression 1. ESRD on HD 2. anemia 3. DM 4. HTN 5. toe infection/gangrene 6. PVD Plan - HD today - epogen for anemia, 80572 units - abx per ID - avf 3:00 400 abf - cont wound care - next HD Saturday - renal diet - monitor bp
--- NOTE | 2018-06-20 16:16 | PN ---
Teaching Attending Note Name of Resident: Linda Agrawal ATTENDING PHYSICIAN STATEMENT I saw and evaluated the patient. I reviewed the resident's note and discussed the case with the resident. I agree with the resident's findings and plan as documented. SUBJECTIVE: No fever or chills . minimal pain in foot OBJECTIVE: NAD CV: RRR, 3/6 M at LLSB and to a lesser extent at LUSB . Lungs: CTAB Ext: no edema on legs . L foot with discolored eschar at suture line ASSESSMENT AND PLAN: 68 y/o man with h/o CAD, recent [place], PVD, ESRD on HD, HTN, HLP, Hep B , DM, and recent admission for L 4th toe gangrene and OM, s/p angiogram, atherectomy and angioplasty, who presented with increased pain in foot and change in L 3rd toe color. He was found to have a gangrenous 3rd and 4th toes. 1- Gangrenous 3rd and 4th L toes with OM. S/p transmetatarsal amputation with sparing of 1st toe. - cont zosyn . - observe wound over weekend for further procedure - at dc: will use vanco with HD and polevaquin q 48 hr - surgical shoe with walking - bethadine dressing daily 2- H/o HTN: continue his HZN and Nifedipine . 3- H/O ESRD: HD per schedule - cont lasix - cont sevelamir 4- PVD : cont statin, asa and plavix patient is not walking. need PT eval before discharge to evaluate safety
--- NOTE | 2018-06-20 17:31 | PN ---
Progress Note (short form) - Note Progress Note: Vascular Surgery Pt seen and examined with interpreter translator. Pt's dressing changed. Amputation site is demarcating. Pt has palpable dopplerable pulse. Pt understands that he might need mores surgery if the wound does not heal. From a vascular standpoint, pt has runoff into forefoot. However has microvascular disease in distal forefoot leading to gangrene. Pt might need high tma from podiatry. Pt understands this plan. Will re-evaluate on saturday Kel Paiz DO Problem List - Problems (1) Gangrene of foot Code(s): I96 - GANGRENE, NOT ELSEWHERE CLASSIFIED (2) PAD (peripheral artery disease) Code(s): I73.9 - PERIPHERAL VASCULAR DISEASE, UNSPECIFIED (3) Diabetic foot infection Code(s): E11.628 - TYPE 2 DIABETES MELLITUS WITH OTHER SKIN COMPLICATIONS; L08.9 - LOCAL INFECTION OF THE SKIN AND SUBCUTANEOUS TISSUE, UNSP
--- NOTE | 2018-06-20 18:55 | PN ---
Physical Exam: SUBJECTIVE: Patient seen and examined this morning POD#9. No new complaints, No overnight events. OBJECTIVE: Vital Signs Period Temp Pulse Resp BP Sys/Cole Pulse Ox Last 24 Hr 97.9 F-98.9 F 60-77 18-20 136-182/53-79 92 GENERAL: The patient is awake, alert, and fully oriented, in no acute distress. HEAD: NCAT ENT: oropharynx clear without exudates, MMM NECK: supple, No JVD LUNGS: Breath sounds equal, clear to auscultation bilaterally, no wheezes HEART: Regular rate and rhythm, S1, S2, Systolic murmur at the LLSB ABDOMEN: Soft, nontender, nondistended, normoactive bowel sounds, no guarding EXTREMITIES: 2+ pulses, no edema. Clean LLE external dressing. Sutures intact over TransMetartarsal amputation of 2 to 5 digits without any active drainage. Slightly Tender to palpation at the base of digits 1-4. Amputation site is demarcating. Gross lower extremity sensation intact b/l. Muscle strength 5/5 on Right and 4/5 on Left to Dorsiflexion and plantarflexion NEUROLOGICAL: Cranial nerves II through XII grossly intact. Normal speech, gait not observed. Laboratory Results - last 24 hr 06/19/18 06/20/18 06/20/18 21:30 06:24 08:35 WBC RBC Hgb Hct MCV MCH MCHC RDW Plt Count MPV Sodium 135 L Potassium 3.9 Chloride 95 L Carbon Dioxide 29 Anion Gap 11 BUN 37 H Creatinine 6.8 H Creat Clearance w eGFR 8.09 POC Glucometer 232 170 Random Glucose 152 H Calcium 10.2 H Total Bilirubin 0.8 AST 35 ALT 17 Alkaline Phosphatase 468 H Total Protein 7.5 Albumin 2.3 L 06/20/18 06/20/18 06/20/18 08:35 12:11 17:00 WBC 14.1 H RBC 2.42 L Hgb 7.6 L Hct 23.7 L MCV 97.8 H MCH 31.5 MCHC 32.2 RDW 16.9 H Plt Count 315 MPV 8.2 Sodium Potassium Chloride Carbon Dioxide Anion Gap BUN Creatinine Creat Clearance w eGFR POC Glucometer 192 134 Random Glucose Calcium Total Bilirubin AST ALT Alkaline Phosphatase Total Protein Albumin Active Medications Acetaminophen (Tylenol -) 650 mg PO Q4H PRN PRN Reason: PAIN LEVEL 1-5 Aspirin (Ecotrin -) 81 mg PO DAILY [facility] Last Admin: 06/20/18 12:29 Dose: 81 mg Atorvastatin Calcium (Lipitor -) 80 mg PO [facility] Calcitriol (Rocaltrol -) 0.25 mcg PO DAILY [facility] Last Admin: 06/20/18 12:26 Dose: 0.25 mcg Clopidogrel Bisulfate (Plavix -) 75 mg PO DAILY [facility] Last Admin: 06/20/18 12:29 Dose: 75 mg Furosemide (Lasix -) 40 mg PO DAILY [facility] Last Admin: 06/20/18 12:29 Dose: 40 mg Hydralazine HCl (Apresoline -) 100 mg PO TID [facility] Last Admin: 06/20/18 14:38 Dose: 100 mg Sodium Chloride (Normal Saline -) 1,000 mls @ 42 mls/hr IV ASDIR [facility] Last Admin: 06/20/18 12:30 Dose: Not Given Piperacillin Sod/Tazobactam (Sod 2.25 gm/ Dextrose) 50 mls @ 100 mls/hr IVPB Q8H-IV [facility]; Protocol Last Admin: 06/20/18 17:28 Dose: 100 mls/hr Insulin Aspart (Novolog Vial Sliding Scale -) 1 vial SQ TIDAC [facility]; Protocol Last Admin: 06/20/18 17:01 Dose: Not Given Labetalol HCl (Normodyne -) 100 mg PO BID [facility] Nifedipine (Procardia Xl -) 60 mg PO BID [facility] Last Admin: 06/20/18 12:29 Dose: 60 mg Ondansetron HCl (Zofran Injection) 4 mg IVPUSH Q6H PRN PRN Reason: NAUSEA AND/OR VOMITING Oxycodone HCl (Roxicodone -) 5 mg PO Q4H PRN PRN Reason: PAIN LEVEL 6-10 Last Admin: 06/20/18 14:38 Dose: 5 mg Sevelamer Carbonate (Renvela -) 800 mg PO TIDCM [facility] Last Admin: 06/20/18 17:28 Dose: 800 mg IMAGING: EKG: NORMAL SINUS RHYTHM, NONSPECIFIC T WAVE ABNORMALITY EKG done (06/10) revealed new T-wave inversions in lateral leads, Left Foot XRay: No fracture or osteomyelitis. CT ANGIOGRAM OF THE ABDOMEN AND PELVIS WITH BILATERAL LOWER EXTREMITY RUNOFFS: Predominant distal arterial disease suggestive of diabetic and/or nephrogenic vasculopathy. Predominant disease in the distal left popliteal and infrapopliteal arteries demonstrating interval improvement in flow and mild improvement in the degree of stenosis described on the prior exam, as described above. Essential flow to the foot is provided by the MIGUELITO. Peroneal artery is occluded and ILLUSTRATOR SET demonstrate short segmental occlusions with reconstitution of flow in the plantar artery which demonstrate robust flow. Flow is seen in the digital arteries. Predominant right infrapopliteal disease, as described above, grossly unchanged since the prior exam. Subcutaneous edema with mesenteric stranding possibly due to third spacing/anasarca. Under distended urinary bladder with suggestion of wall thickening. Correlate clinically for cystitis. ASSESSMENT/PLAN: 68 y/o M w/ PMHx CAD, [place], PVD, ESRD on HD (MWF), HTN, admitted for gangrene/ osteomyelitis of the left foot on 05/16, now presents with worsening pain and discoloration of the left 4th toe and blackening and pain of the 3rd toe 1. Gangrene of L 3rd and 4th toes, now s/p L TMA sparing great toe (06/11/) -POD#9 s/p Amputation of Left toes 2-4 -Remains AFebrile, WBC trending down -CTA noted as above -EKG done (06/10) revealed new T-wave inversions in lateral leads, case discussed with Dr. Wilkins--Pt is cleared to undergo LE surgery -Dr. Paiz: Angiogram performed. No areas of stenosis. 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 Pt would benefit from HBO. -ID (Dr. Reyez) consulted: Vanc/Zosyn (Started on 06/05), Outpatient treatment with Vancomycin 500mg at each HD x 4weeks, Levaquin 250mg po q48h x 4 weeks -Podiatry (Dr. Garcia) consulted: Amputation on 06/11, Will observe over weekend. Anticipate revision of TMA -Pt with post op surgical shoe -Pathology report shows bone with acute osteomyelitis, will discuss tx options with ID as patient will likely require longer course of ABx 2. Leukocytosis -WBC count persists -Continue Zosyn course (Started 06/11) -ID (Dr. Reyez) consulted -Vascular Surgery (Dr. Paiz): pt has runoff into forefoot. However has microvascular disease in distal forefoot leading to gangrene. Pt might need high tma from podiatry. 3. ESRD on HD (MWF) -Nephro (Dr. Flaherty) consulted -Vascular evaluated fistula -Cont home Lasix, Sevelamer -Pt requesting blood draws with dialysis 4. CAD/PVD -Cont ASA/Plavix 5. HTN -Cont home nifedipine, hydralazine 6. Anemia -Likely of chronic disease 2/2 ESRD -Epogen 12,000 7. FEN -PO Fluids -Continue to monitor lytes -Diabetic/Renal diet 8. PPx -no heparin at this time per vascular Dispo: Likely Revision on Saturday, Will need PT eval prior to D/c Visit type - Emergency Visit Emergency Visit: Yes ED Registration Date: 06/05/18 Care time: The patient presented to the Emergency Department on the above date and was hospitalized for further evaluation of their emergent condition. - New Patient This patient is new to me today: No - Critical Care Critical Care patient: No - Discharge Referral Referred to [facility] Med P.C.: No
[2018-06-20] MEDS ORDERED: LABETALOL HCL 100 MG TABLET (FP) PO SCH (22:00)
[2018-06-20] MEDS: ATORVASTATIN CA 80 MG TABLET (FP) PO SCH (22:31)
[2018-06-20] MEDS: LABETALOL HCL 100 MG TABLET (FP) PO SCH (22:31)
[2018-06-21] MEDS ORDERED: DEXTROSE 5%-WATER - 50 ML IVPB ONE ×3 (02:02→17:17)
[2018-06-21] MEDS ORDERED: PIPERACILLIN/TAZOBACTAM 2.25 GM VIAL IVPB ONE ×3 (02:02→17:16)
[2018-06-21] MEDS: PIPERACILLIN/TAZOB 2.25 GM 2.25 GM in DEXTROSE 5%-WATER - 50 ML IVPB SCH ×3 (02:17→17:30)
[2018-06-21] MEDS: hydrALAZINE HCL 50 MG TABLET (FP) PO SCH ×3 (06:09→21:24)
[2018-06-21] MEDS: INSULIN SLIDING SCALE (NOVOLOG) 1 VIAL SQ SCH ×3 (06:13→16:25)
[2018-06-21] MEDS: SEVELAMER CARBONATE 800 MG TAB (FP) PO SCH ×3 (08:16→17:30)
[2018-06-21 08:45] LABS: BASO % 0.6 % (0-2.0); EOS % 1.7 % (0-4.5); HEMOGLOBIN 7.7 GM/dL (11.7-16.9); LYMPH % 7.7 % (8-40); MCH 31.7 pg (25.7-33.7); MCHC 32.1 g/dl (32.0-35.9); MEAN CELL VOLUME 98.5 fl (80-96); MEAN PLT VOLUME 8.2 fl (7.5-11.1); MONO % 10.2 % (3.8-10.2); NEUT % 79.8 % (42.8-82.8); PLATELET COUNT 309 K/MM3 (134-434); RBC 2.44 M/mm3 (4.00-5.60); WHITE BLOOD COUNT 13.3 K/mm3 (4.0-10.0)
[2018-06-21 09:18] LABS: ANION GAP 10 MMOL/L (8-16); BLOOD UREA NITROGEN 26 mg/dL (7-18); CHLORIDE 96 mmol/L (98-107); CO2 31 mmol/L (21-32); CREATININE 4.9 mg/dL (0.55-1.3); GLUCOSE,RANDOM 120 mg/dL (74-106); MAGNESIUM 2.5 mg/dL (1.8-2.4); PHOSPHOROUS 2.9 mg/dL (2.5-4.9); POTASSIUM 3.6 mmol/L (3.5-5.1); SODIUM 137 mmol/L (136-145)
[2018-06-21] MEDS ORDERED: PT OWN MED DRAWER 7, Y5N ONE ×2 (10:50→21:21)
[2018-06-21] MEDS: ASPIRIN COATED 81 MG TABLET.EC PO SCH ×2 (10:52→11:34)
[2018-06-21] MEDS: LABETALOL HCL 100 MG TABLET (FP) PO SCH (10:52)
[2018-06-21] MEDS: CLOPIDOGREL BISULFATE 75 MG TABLET (FP) PO SCH ×2 (10:52→11:35)
[2018-06-21] MEDS: FUROSEMIDE 40 MG TABLET (FP) PO SCH (10:54)
[2018-06-21] MEDS: NIFEdipine E.R 60 MG TABLET (UD) PO SCH ×2 (10:54→21:24)
[2018-06-21] MEDS: CALCITRIOL 0.25 MCG CAPSULE (FP) PO SCH (10:54)
--- NOTE | 2018-06-21 10:56 | PN ---
Progress Note (short form) - Note Progress Note: Patient seen in bed. Patient has no pain. +dry dressing, wbc=13.3 +sutures intact, +dark edges of incision line, -drainage , -mal odor, -signs of cellulitis left foot normal post op Pain improved Wound continues to demarcate. Might have to revise foot further. Will observe over weekend. Anticipate revision of TMA. Discussed with Dr. Paiz blood supply poor distal 1/3 of foot. Post op shoe when up and about. Betadine dressing change daily. Discussed with patent. will try to reach out to of his children who speak japanese to discuss with family current prognosis. Read and appreciated note from ID. Reviewed patholgy once again. alyx follow.
[2018-06-21] MEDS ORDERED: INSULIN (NOVOLOG) ASPART 100 UNITS/ML 10ML VIAL ONE ×2 (11:32→16:46)
[2018-06-21] MEDS: LISINOPRIL 20 MG TABLET (FP) PO SCH (11:35)
[2018-06-21] MEDS: SODIUM CHLORIDE 1,000 ML IV SCH (13:05)
--- NOTE | 2018-06-21 13:57 | PN ---
Physical Exam: SUBJECTIVE: Patient seen and examined this morning POD#10. No new complaints, No overnight events. OBJECTIVE: Vital Signs Period Temp Pulse Resp BP Sys/Cole Pulse Ox Last 24 Hr 98.0 F-99.2 F 63-73 20-21 134-182/64-72 95-95 GENERAL: The patient is awake, alert, and fully oriented, in no acute distress. HEAD: NCAT ENT: oropharynx clear without exudates, MMM NECK: supple, No JVD LUNGS: Breath sounds equal, clear to auscultation bilaterally, no wheezes HEART: Regular rate and rhythm, S1, S2, Systolic murmur at the LLSB ABDOMEN: Soft, nontender, nondistended, normoactive bowel sounds, no guarding EXTREMITIES: 2+ pulses, no edema. Clean LLE external dressing. Sutures intact over TransMetartarsal amputation of 2 to 5 digits without any active drainage. Slightly Tender to palpation at the base of digits 1-4. Amputation site is demarcating. Gross lower extremity sensation intact b/l. Muscle strength 5/5 on Right and 4/5 on Left to Dorsiflexion and plantarflexion NEUROLOGICAL: Cranial nerves II through XII grossly intact. Normal speech, gait not observed. Laboratory Results - last 24 hr 06/20/18 06/20/18 06/21/18 17:00 22:30 06:11 WBC RBC Hgb Hct MCV MCH MCHC RDW Plt Count MPV Absolute Neuts (auto) Neutrophils % Lymphocytes % Monocytes % Eosinophils % Basophils % Nucleated RBC % Sodium Potassium Chloride Carbon Dioxide Anion Gap BUN Creatinine Creat Clearance w eGFR POC Glucometer 134 198 132 Random Glucose Calcium Phosphorus Magnesium 06/21/18 06/21/18 06/21/18 08:20 08:20 11:10 WBC 13.3 H RBC 2.44 L Hgb 7.7 L Hct 24.0 L MCV 98.5 H MCH 31.7 MCHC 32.1 RDW 17.0 H Plt Count 309 MPV 8.2 Absolute Neuts (auto) 10.6 H Neutrophils % 79.8 Lymphocytes % 7.7 L Monocytes % 10.2 Eosinophils % 1.7 Basophils % 0.6 Nucleated RBC % 0 Sodium 137 Potassium 3.6 Chloride 96 L Carbon Dioxide 31 Anion Gap 10 BUN 26 H Creatinine 4.9 H Creat Clearance w eGFR 11.80 POC Glucometer 202 Random Glucose 120 H Calcium 10.0 Phosphorus 2.9 Magnesium 2.5 H Active Medications Acetaminophen (Tylenol -) 650 mg PO Q4H PRN PRN Reason: PAIN LEVEL 1-5 Aspirin (Ecotrin -) 81 mg PO DAILY [facility] Last Admin: 06/21/18 11:34 Dose: 81 mg Atorvastatin Calcium (Lipitor -) 80 mg PO HS [facility] Last Admin: 06/20/18 22:31 Dose: 80 mg Calcitriol (Rocaltrol -) 0.25 mcg PO DAILY [facility] Last Admin: 06/21/18 10:54 Dose: 0.25 mcg Clopidogrel Bisulfate (Plavix -) 75 mg PO DAILY [facility] Last Admin: 06/21/18 11:35 Dose: 75 mg Furosemide (Lasix -) 40 mg PO DAILY [facility] Last Admin: 06/21/18 10:54 Dose: 40 mg Hydralazine HCl (Apresoline -) 100 mg PO TID [facility] Last Admin: 06/21/18 13:23 Dose: 100 mg Sodium Chloride (Normal Saline -) 1,000 mls @ 42 mls/hr IV ASDIR [facility] Last Admin: 06/21/18 13:05 Dose: Not Given Piperacillin Sod/Tazobactam (Sod 2.25 gm/ Dextrose) 50 mls @ 100 mls/hr IVPB Q8H-IV [facility]; Protocol Last Admin: 06/21/18 10:54 Dose: 100 mls/hr Insulin Aspart (Novolog Vial Sliding Scale -) 1 vial SQ TIDAC [facility]; Protocol Last Admin: 06/21/18 11:47 Dose: 4 units Lisinopril (Prinivil) 40 mg PO DAILY [facility] Last Admin: 06/21/18 11:35 Dose: 40 mg Nifedipine (Procardia Xl -) 60 mg PO BID [facility] Last Admin: 06/21/18 10:54 Dose: 60 mg Ondansetron HCl (Zofran Injection) 4 mg IVPUSH Q6H PRN PRN Reason: NAUSEA AND/OR VOMITING Oxycodone HCl (Roxicodone -) 5 mg PO Q4H PRN PRN Reason: PAIN LEVEL 6-10 Last Admin: 06/20/18 14:38 Dose: 5 mg Sevelamer Carbonate (Renvela -) 800 mg PO TIDCM [facility] Last Admin: 06/21/18 11:46 Dose: 800 mg IMAGING: EKG: NORMAL SINUS RHYTHM, NONSPECIFIC T WAVE ABNORMALITY EKG done (06/10) revealed new T-wave inversions in lateral leads, Left Foot XRay: No fracture or osteomyelitis. CT ANGIOGRAM OF THE ABDOMEN AND PELVIS WITH BILATERAL LOWER EXTREMITY RUNOFFS: Predominant distal arterial disease suggestive of diabetic and/or nephrogenic vasculopathy. Predominant disease in the distal left popliteal and infrapopliteal arteries demonstrating interval improvement in flow and mild improvement in the degree of stenosis described on the prior exam, as described above. Essential flow to the foot is provided by the MIGUELITO. Peroneal artery is occluded and ROUNDHOUSE WORKER demonstrate short segmental occlusions with reconstitution of flow in the plantar artery which demonstrate robust flow. Flow is seen in the digital arteries. Predominant right infrapopliteal disease, as described above, grossly unchanged since the prior exam. Subcutaneous edema with mesenteric stranding possibly due to third spacing/anasarca. Under distended urinary bladder with suggestion of wall thickening. Correlate clinically for cystitis. ASSESSMENT/PLAN: 68 y/o M w/ PMHx CAD, [place], PVD, ESRD on HD (MWF), HTN, admitted for gangrene/ osteomyelitis of the left foot on 05/16, now presents with worsening pain and discoloration of the left 4th toe and blackening and pain of the 3rd toe 1. Gangrene of L 3rd and 4th toes, now s/p L TMA sparing great toe (06/11/) -POD#10 s/p Amputation of Left toes 2-4 -Remains AFebrile, WBC trending down -CTA noted as above -Pathology report shows bone with acute osteomyelitis -Dr. Paiz: Angiogram performed. No areas of stenosis. 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 Pt would benefit from HBO. -ID (Dr. Reyez) consulted: Vanc/Zosyn (Started on 06/05), Outpatient treatment with Vancomycin 500mg at each HD x 4weeks, Levaquin 250mg po q48h x 4 weeks -Podiatry (Dr. Garcia) consulted: Amputation on 06/11, Will observe over weekend. Anticipate revision of TMA -Pt with post op surgical shoe -EKG done (06/10) revealed new T-wave inversions in lateral leads, case discussed with Dr. Wilkins--Pt is cleared to undergo LE surgery 2. Leukocytosis -WBC count persists -Continue Zosyn course (Started 06/11) -ID (Dr. Reyez) consulted -Vascular Surgery (Dr. Paiz): pt has runoff into forefoot. However has microvascular disease in distal forefoot leading to gangrene. 3. ESRD on HD (MWF) -Nephro (Dr. Flaherty) consulted -Vascular evaluated fistula -Cont home Lasix, Sevelamer -Pt requesting blood draws with dialysis 4. CAD/PVD -Cont ASA/Plavix 5. HTN -Cont home dose nifedipine, hydralazine, lasix -Started Lisinopril 40mg Daily 6. Anemia -Likely of chronic disease 2/2 ESRD -Epogen 12,000 7. FEN -IV NS @ 42 mls/hr -Continue to monitor lytes -Diabetic/Renal diet 8. PPx -no heparin at this time per vascular Dispo: Likely Revision on Saturday, Will need PT eval prior to D/c Visit type - Emergency Visit Emergency Visit: Yes ED Registration Date: 06/05/18 Care time: The patient presented to the Emergency Department on the above date and was hospitalized for further evaluation of their emergent condition. - New Patient This patient is new to me today: No - Critical Care Critical Care patient: No - Discharge Referral Referred to [facility] Med P.C.: No
--- NOTE | 2018-06-21 14:18 | PN ---
Teaching Attending Note Name of Resident: Linda Agrawal ATTENDING PHYSICIAN STATEMENT I saw and evaluated the patient. I reviewed the resident's note and discussed the case with the resident. I agree with the resident's findings and plan as documented. SUBJECTIVE: No fever or chills. No abd pain , no pain in foot when he ambulates OBJECTIVE: NAD CV: RRR, 3/6 M at LLSB and to a lesser extent at LUSB . Lungs: CTAB Ext: no edema on legs . L foot with discolored eschar at suture line, slightly worse . DP 2+ bilaterally ASSESSMENT AND PLAN: 68 y/o man with h/o CAD, recent [place], PVD, ESRD on HD, HTN, HLP, Hep B , DM, and recent admission for L 4th toe gangrene and OM, s/p angiogram, atherectomy and angioplasty, who presented with increased pain in foot and change in L 3rd toe color. He was found to have a gangrenous 3rd and 4th toes. 1- Gangrenous 3rd and 4th L toes with OM. S/p transmetatarsal amputation with sparing of 1st toe. - cont zosyn . - Eschar at suture line is getting worse . possible further debridment and amputation - bethadine dressing daily 2- H/o HTN: continue his HZN and Nifedipine . 3- H/O ESRD: HD per schedule - cont lasix - cont sevelamir 4- PVD : cont statin, asa and plavix HLOC
--- NOTE | 2018-06-21 14:56 | PN ---
Progress Note, Physician History of Present Illness: Pt seen and examined at bedside. He is awake and alert. He denies shortness of breath. - Current Medication List Current Medications: Active Medications Acetaminophen (Tylenol -) 650 mg PO Q4H PRN PRN Reason: PAIN LEVEL 1-5 Aspirin (Ecotrin -) 81 mg PO DAILY [facility] Last Admin: 06/21/18 11:34 Dose: 81 mg Atorvastatin Calcium (Lipitor -) 80 mg PO HS [facility] Last Admin: 06/20/18 22:31 Dose: 80 mg Calcitriol (Rocaltrol -) 0.25 mcg PO DAILY [facility] Last Admin: 06/21/18 10:54 Dose: 0.25 mcg Clopidogrel Bisulfate (Plavix -) 75 mg PO DAILY [facility] Last Admin: 06/21/18 11:35 Dose: 75 mg Furosemide (Lasix -) 40 mg PO DAILY [facility] Last Admin: 06/21/18 10:54 Dose: 40 mg Hydralazine HCl (Apresoline -) 100 mg PO TID [facility] Last Admin: 06/21/18 13:23 Dose: 100 mg Sodium Chloride (Normal Saline -) 1,000 mls @ 42 mls/hr IV ASDIR [facility] Last Admin: 06/21/18 13:05 Dose: Not Given Piperacillin Sod/Tazobactam (Sod 2.25 gm/ Dextrose) 50 mls @ 100 mls/hr IVPB Q8H-IV [facility]; Protocol Last Admin: 06/21/18 10:54 Dose: 100 mls/hr Insulin Aspart (Novolog Vial Sliding Scale -) 1 vial SQ TIDAC [facility]; Protocol Last Admin: 06/21/18 11:47 Dose: 4 units Lisinopril (Prinivil) 40 mg PO DAILY [facility] Last Admin: 06/21/18 11:35 Dose: 40 mg Nifedipine (Procardia Xl -) 60 mg PO BID [facility] Last Admin: 06/21/18 10:54 Dose: 60 mg Ondansetron HCl (Zofran Injection) 4 mg IVPUSH Q6H PRN PRN Reason: NAUSEA AND/OR VOMITING Oxycodone HCl (Roxicodone -) 5 mg PO Q4H PRN PRN Reason: PAIN LEVEL 6-10 Last Admin: 06/20/18 14:38 Dose: 5 mg Sevelamer Carbonate (Renvela -) 800 mg PO TIDCM [facility] Last Admin: 10/06/18 11:46 Dose: 800 mg - Objective Vital Signs: Vital Signs Temperature 98.2 F 06/21/18 09:15 Pulse Rate 72 06/21/18 13:17 Respiratory Rate 20 06/21/18 13:17 Blood Pressure 178/68 H 06/21/18 13:17 O2 Sat by Pulse Oximetry (%) 95 06/21/18 09:00 Constitutional: Yes: Calm Eyes: Yes: Conjunctiva Clear Neck: Yes: Supple Cardiovascular: Yes: S1, S2 Respiratory: Yes: CTA Bilaterally Gastrointestinal: Yes: Soft Genitourinary: Yes: WNL Edema: No Wound/Incision: Yes: Dressing Dry and Intact Neurological: Yes: Oriented Psychiatric: Yes: Oriented Labs: CBC, BMP 06/21/18 08:20 06/21/18 08:20 INR, PTT INR 1.09 (0.83-1.09) 06/06/18 06:30 Problem List - Problems (1) ESRD (end stage renal disease) Code(s): N18.6 - END STAGE RENAL DISEASE (2) Gangrene Code(s): I96 - GANGRENE, NOT ELSEWHERE CLASSIFIED (3) PAD (peripheral artery disease) Code(s): I73.9 - PERIPHERAL VASCULAR DISEASE, UNSPECIFIED Assessment/Plan Current Medications Generic Name Dose Route Start Last Admin Trade Name Freq PRN Reason Stop Dose Admin Acetaminophen 650 mg 06/19/18 10:17 Tylenol - PO Q4H PRN PAIN LEVEL 1-5 Aspirin 81 mg 06/20/18 10:00 06/21/18 11:34 Ecotrin - PO 81 mg DAILY [facility] Administration Atorvastatin Calcium 80 mg 06/20/18 22:00 06/20/18 22:31 Lipitor - PO 80 mg HS [facility] Administration Calcitriol 0.25 mcg 06/20/18 10:00 06/21/18 10:54 Rocaltrol - PO 0.25 mcg DAILY [facility] Administration Clopidogrel Bisulfate 75 mg 06/20/18 10:00 06/21/18 11:35 Plavix - PO 75 mg DAILY [facility] Administration Furosemide 40 mg 06/20/18 10:00 06/21/18 10:54 Lasix - PO 40 mg DAILY [facility] Administration Hydralazine HCl 100 mg 06/19/18 14:00 06/21/18 13:23 Apresoline - PO 100 mg TID [facility] Administration Sodium Chloride 1,000 mls @ 42 mls/hr 06/19/18 10:17 06/21/18 13:05 Normal Saline - IV Not Given ASDIR [facility] Piperacillin Sod/Tazobactam 50 mls @ 100 mls/hr 06/19/18 19:15 06/21/18 10:54 Sod 2.25 gm/ Dextrose IVPB 100 mls/hr Q8H-IV [facility] Administration Protocol Insulin Aspart 1 vial 06/19/18 11:00 06/21/18 11:47 Novolog Vial Sliding Scale - SQ 4 units TIDAC [facility] Administration Protocol Lisinopril 40 mg 06/21/18 11:00 06/21/18 11:35 Prinivil PO 40 mg DAILY [facility] Administration Nifedipine 60 mg 06/19/18 22:00 06/21/18 10:54 Procardia Xl - PO 60 mg BID [facility] Administration Ondansetron HCl 4 mg 06/19/18 10:17 Zofran Injection IVPUSH Q6H PRN NAUSEA AND/OR VOMITING Oxycodone HCl 5 mg 06/19/18 10:17 06/20/18 14:38 Roxicodone - PO 5 mg Q4H PRN Administration PAIN LEVEL 6-10 Sevelamer Carbonate 800 mg 06/19/18 12:00 06/21/18 11:46 Renvela - PO 800 mg TIDCM [facility] Administration Impression 1. ESRD on HD 2. anemia 3. DM 4. HTN 5. toe infection/gangrene 6. PVD Plan - next HD on Saturday - cont abx - epogen for anemia, 34723 units - abx per ID - avf 3:00 400 abf - cont wound care - next HD Saturday - renal diet - monitor bp
[2018-06-21] MEDS: ACETAMINOPHEN 325 MG TABLET (FP) PO PRN (15:07)
[2018-06-21] MEDS: oxyCODONE HCL 5 MG TABLET PO PRN (15:07)
[2018-06-21] MEDS: ATORVASTATIN CA 80 MG TABLET (FP) PO SCH (21:24)
[2018-06-22] MEDS ORDERED: PIPERACILLIN/TAZOBACTAM 2.25 GM VIAL IVPB ONE ×3 (01:39→17:05)
[2018-06-22] MEDS ORDERED: DEXTROSE 5%-WATER - 50 ML IVPB ONE ×3 (01:39→17:05)
[2018-06-22] MEDS: PIPERACILLIN/TAZOB 2.25 GM 2.25 GM in DEXTROSE 5%-WATER - 50 ML IVPB SCH ×3 (01:46→17:10)
[2018-06-22] MEDS: hydrALAZINE HCL 50 MG TABLET (FP) PO SCH ×3 (05:59→21:07)
[2018-06-22] MEDS: INSULIN SLIDING SCALE (NOVOLOG) 1 VIAL SQ SCH ×3 (06:00→17:09)
[2018-06-22] MEDS: SEVELAMER CARBONATE 800 MG TAB (FP) PO SCH ×3 (08:21→17:10)
[2018-06-22] MEDS ORDERED: PT OWN MED DRAWER 7, Y5N ONE ×2 (09:39→21:04)
[2018-06-22] MEDS: LISINOPRIL 20 MG TABLET (FP) PO SCH (09:48)
[2018-06-22] MEDS: ASPIRIN COATED 81 MG TABLET.EC PO SCH (09:48)
[2018-06-22] MEDS: CLOPIDOGREL BISULFATE 75 MG TABLET (FP) PO SCH (09:48)
[2018-06-22] MEDS: CALCITRIOL 0.25 MCG CAPSULE (FP) PO SCH (09:48)
[2018-06-22] MEDS: FUROSEMIDE 40 MG TABLET (FP) PO SCH (09:49)
[2018-06-22] MEDS: NIFEdipine E.R 60 MG TABLET (UD) PO SCH ×2 (09:50→21:07)
[2018-06-22] MEDS: SODIUM CHLORIDE 1,000 ML IV SCH (10:43)
[2018-06-22] MEDS: ACETAMINOPHEN 325 MG TABLET (FP) PO PRN (10:45)
--- NOTE | 2018-06-22 13:20 | PN ---
Progress Note (short form) - Note Progress Note: Patient seen in bed. Patient has no pain. and daughters boyfriend Galen present to translate. +dry dressing, wbc=13.3 normal post op demarcating foot left Pain improved Wound continues to demarcate. Discussed with patient and family his current options of higher TMA or BKA. Patienthas currently agreed to revised TMA. Will wait for vascular clearance to proceed further as vascular disease is significant in forefoot. No guarantees given that next procedure will work. Patioent and present family members fully understood all risks benefits and alternatives and explained and transltaed to patient. Will observe over weekend. Anticipate revision of TMA. Continue betadine dressing change daily. Continue abx as per ID. will follow.
--- NOTE | 2018-06-22 16:27 | PN ---
Progress Note (short form) - Note Progress Note: Subjective: patient asleep . prefer not to be awaken. she states his pain is controlled Objective: Vital Signs: Last Vital Signs Temp Pulse Resp BP Pulse Ox 97.9 F 62 18 140/58 L 95 06/22/18 14:00 06/22/18 14:00 06/22/18 14:00 06/22/18 14:00 06/22/18 09:00 Laboratory Results - last 24 hr 06/21/18 06/22/18 06/22/18 16:24 05:58 11:54 POC Glucometer 206 139 195 Physical Exam: NAD , sleeping comfortable. requested not to be examined ASSESSMENT AND PLAN: 68 y/o man with h/o CAD, recent [place], PVD, ESRD on HD, HTN, HLP, Hep B , DM, and recent admission for L 4th toe gangrene and OM, s/p angiogram, atherectomy and angioplasty, who presented with increased pain in foot and change in L 3rd toe color. He was found to have a gangrenous 3rd and 4th toes. 1- Gangrenous 3rd and 4th L toes with OM. S/p transmetatarsal amputation with sparing of 1st toe. - cont zosyn . - for higher TMA per podiatry - bethadine dressing daily 2- H/o HTN: continue his HZN, Nifedipine, and lisinoprol . 3- H/O ESRD: HD per schedule - cont lasix - cont sevelamir 4- PVD : cont statin, asa and plavix HLOC Visit type - Emergency Visit Emergency Visit: Yes ED Registration Date: 06/05/18 Care time: The patient presented to the Emergency Department on the above date and was hospitalized for further evaluation of their emergent condition. - New Patient This patient is new to me today: No - Critical Care Critical Care patient: No
--- NOTE | 2018-06-22 16:33 | PN ---
Progress Note, Physician History of Present Illness: Pt seen and examined at bedside. He has no complaints. - Current Medication List Current Medications: Active Medications Acetaminophen (Tylenol -) 650 mg PO Q4H PRN PRN Reason: PAIN LEVEL 1-5 Last Admin: 06/22/18 10:45 Dose: 650 mg Aspirin (Ecotrin -) 81 mg PO DAILY [facility] Last Admin: 06/22/18 09:48 Dose: 81 mg Atorvastatin Calcium (Lipitor -) 80 mg PO HS [facility] Last Admin: 06/21/18 21:24 Dose: 80 mg Calcitriol (Rocaltrol -) 0.25 mcg PO DAILY [facility] Last Admin: 06/22/18 09:48 Dose: 0.25 mcg Clopidogrel Bisulfate (Plavix -) 75 mg PO DAILY [facility] Last Admin: 06/22/18 09:48 Dose: 75 mg Furosemide (Lasix -) 40 mg PO DAILY [facility] Last Admin: 06/22/18 09:49 Dose: 40 mg Hydralazine HCl (Apresoline -) 100 mg PO TID [facility] Last Admin: 06/22/18 14:22 Dose: 100 mg Sodium Chloride (Normal Saline -) 1,000 mls @ 42 mls/hr IV ASDIR [facility] Last Admin: 06/22/18 10:43 Dose: Not Given Piperacillin Sod/Tazobactam (Sod 2.25 gm/ Dextrose) 50 mls @ 100 mls/hr IVPB Q8H-IV [facility]; Protocol Last Admin: 06/22/18 09:50 Dose: 100 mls/hr Insulin Aspart (Novolog Vial Sliding Scale -) 1 vial SQ TIDAC [facility]; Protocol Last Admin: 06/22/18 11:56 Dose: 2 units Lisinopril (Prinivil) 40 mg PO DAILY [facility] Last Admin: 06/22/18 09:48 Dose: 40 mg Nifedipine (Procardia Xl -) 60 mg PO BID [facility] Last Admin: 06/22/18 09:50 Dose: 60 mg Ondansetron HCl (Zofran Injection) 4 mg IVPUSH Q6H PRN PRN Reason: NAUSEA AND/OR VOMITING Sevelamer Carbonate (Renvela -) 800 mg PO TIDCM [facility] Last Admin: 06/22/18 11:56 Dose: 800 mg - Objective Vital Signs: Vital Signs Temperature 97.9 F 06/22/18 14:00 Pulse Rate 62 06/22/18 14:00 Respiratory Rate 18 06/22/18 14:00 Blood Pressure 140/58 L 06/22/18 14:00 O2 Sat by Pulse Oximetry (%) 95 06/22/18 09:00 Constitutional: Yes: Calm Eyes: Yes: Conjunctiva Clear HENT: Yes: Atraumatic Neck: Yes: Supple Cardiovascular: Yes: S1, S2 Respiratory: Yes: CTA Bilaterally Gastrointestinal: Yes: Soft Genitourinary: Yes: WNL Edema: No Wound/Incision: Yes: Dressing Dry and Intact Neurological: Yes: Oriented Labs: CBC, BMP 06/21/18 08:20 06/21/18 08:20 INR, PTT INR 1.09 (0.83-1.09) 06/06/18 06:30 Problem List - Problems (1) ESRD (end stage renal disease) Code(s): N18.6 - END STAGE RENAL DISEASE (2) Gangrene Code(s): I96 - GANGRENE, NOT ELSEWHERE CLASSIFIED (3) PAD (peripheral artery disease) Code(s): I73.9 - PERIPHERAL VASCULAR DISEASE, UNSPECIFIED Assessment/Plan Current Medications Generic Name Dose Route Start Last Admin Trade Name Freq PRN Reason Stop Dose Admin Acetaminophen 650 mg 06/19/18 10:17 06/22/18 10:45 Tylenol - PO 650 mg Q4H PRN Administration PAIN LEVEL 1-5 Aspirin 81 mg 06/20/18 10:00 06/22/18 09:48 Ecotrin - PO 81 mg DAILY [facility] Administration Atorvastatin Calcium 80 mg 06/20/18 22:00 06/21/18 21:24 Lipitor - PO 80 mg HS [facility] Administration Calcitriol 0.25 mcg 06/20/18 10:00 06/22/18 09:48 Rocaltrol - PO 0.25 mcg DAILY [facility] Administration Clopidogrel Bisulfate 75 mg 06/20/18 10:00 06/22/18 09:48 Plavix - PO 75 mg DAILY [facility] Administration Furosemide 40 mg 06/20/18 10:00 06/22/18 09:49 Lasix - PO 40 mg DAILY [facility] Administration Hydralazine HCl 100 mg 06/19/18 14:00 06/22/18 14:22 Apresoline - PO 100 mg TID [facility] Administration Sodium Chloride 1,000 mls @ 42 mls/hr 06/19/18 10:17 06/22/18 10:43 Normal Saline - IV Not Given ASDIR [facility] Piperacillin Sod/Tazobactam 50 mls @ 100 mls/hr 06/19/18 19:15 06/22/18 09:50 Sod 2.25 gm/ Dextrose IVPB 100 mls/hr Q8H-IV [facility] Administration Protocol Insulin Aspart 1 vial 06/19/18 11:00 06/22/18 11:56 Novolog Vial Sliding Scale - SQ 2 units TIDAC [facility] Administration Protocol Lisinopril 40 mg 06/21/18 11:00 06/22/18 09:48 Prinivil PO 40 mg DAILY [facility] Administration Nifedipine 60 mg 06/19/18 22:00 06/22/18 09:50 Procardia Xl - PO 60 mg BID [facility] Administration Ondansetron HCl 4 mg 06/19/18 10:17 Zofran Injection IVPUSH Q6H PRN NAUSEA AND/OR VOMITING Sevelamer Carbonate 800 mg 06/19/18 12:00 06/22/18 11:56 Renvela - PO 800 mg TIDCM [facility] Administration Impression 1. ESRD on HD 2. anemia 3. DM 4. HTN 5. toe infection/gangrene 6. PVD Plan - HD tomorrow - check iron studies - monitor bp - epogen for anemia, 01007 units - abx per ID - avf 3:00 400 abf - cont wound care - renal diet - monitor bp
[2018-06-22] MEDS: ATORVASTATIN CA 80 MG TABLET (FP) PO SCH (21:07)
[2018-06-23] MEDS ORDERED: PIPERACILLIN/TAZOBACTAM 2.25 GM VIAL IVPB ONE ×3 (02:32→17:22)
[2018-06-23] MEDS ORDERED: DEXTROSE 5%-WATER - 50 ML IVPB ONE ×3 (02:32→17:22)
[2018-06-23] MEDS: PIPERACILLIN/TAZOB 2.25 GM 2.25 GM in DEXTROSE 5%-WATER - 50 ML IVPB SCH ×3 (02:43→17:26)
[2018-06-23] MEDS: hydrALAZINE HCL 50 MG TABLET (FP) PO SCH ×3 (05:45→21:06)
[2018-06-23] MEDS: INSULIN SLIDING SCALE (NOVOLOG) 1 VIAL SQ SCH ×4 (06:03→17:25)
[2018-06-23] MEDS ORDERED: PT OWN MED DRAWER 7, Y5N ONE ×2 (08:51→20:55)
[2018-06-23] MEDS: SEVELAMER CARBONATE 800 MG TAB (FP) PO SCH ×3 (08:53→17:24)
[2018-06-23] MEDS: ACETAMINOPHEN 325 MG TABLET (FP) PO PRN (09:22)
[2018-06-23] MEDS: ASPIRIN COATED 81 MG TABLET.EC PO SCH (09:23)
[2018-06-23] MEDS: NIFEdipine E.R 60 MG TABLET (UD) PO SCH ×2 (09:23→21:06)
[2018-06-23] MEDS: CALCITRIOL 0.25 MCG CAPSULE (FP) PO SCH (09:23)
[2018-06-23] MEDS: LISINOPRIL 20 MG TABLET (FP) PO SCH (09:24)
[2018-06-23] MEDS: CLOPIDOGREL BISULFATE 75 MG TABLET (FP) PO SCH (09:24)
[2018-06-23] MEDS: FUROSEMIDE 40 MG TABLET (FP) PO SCH (09:24)
[2018-06-23] MEDS ORDERED: SODIUM CHLORIDE 250 ML IV PRN (09:30)
[2018-06-23 10:27] LABS: HEMATOCRIT 24.9 % (35.4-49); MCH 31.4 pg (25.7-33.7); MCHC 32.2 g/dl (32.0-35.9); MEAN CELL VOLUME 97.3 fl (80-96); MEAN PLT VOLUME 8.2 fl (7.5-11.1); PLATELET COUNT 290 K/MM3 (134-434); RBC 2.55 M/mm3 (4.00-5.60); RDW 17.3 % (11.9-15.9); WHITE BLOOD COUNT 14.5 K/mm3 (4.0-10.0)
[2018-06-23] MEDS ORDERED: EPOETIN ALFA 20,000 UNIT/1 ML VIAL IVPUSH ONE (10:30)
--- NOTE | 2018-06-23 13:31 | PN ---
Progress Note, Physician History of Present Illness: Pt seen and examined at bedside. He is awake and alert. He is tolerating HD. - Current Medication List Current Medications: Active Medications Acetaminophen (Tylenol -) 650 mg PO Q4H PRN PRN Reason: PAIN LEVEL 1-5 Last Admin: 06/23/18 09:22 Dose: 650 mg Aspirin (Ecotrin -) 81 mg PO DAILY [facility] Last Admin: 06/23/18 09:23 Dose: 81 mg Atorvastatin Calcium (Lipitor -) 80 mg PO HS [facility] Last Admin: 06/22/18 21:07 Dose: 80 mg Calcitriol (Rocaltrol -) 0.25 mcg PO DAILY [facility] Last Admin: 06/23/18 09:23 Dose: 0.25 mcg Clopidogrel Bisulfate (Plavix -) 75 mg PO DAILY [facility] Last Admin: 06/23/18 09:24 Dose: 75 mg Furosemide (Lasix -) 40 mg PO DAILY [facility] Last Admin: 06/23/18 09:24 Dose: 40 mg Hydralazine HCl (Apresoline -) 100 mg PO TID [facility] Last Admin: 06/23/18 05:45 Dose: 100 mg Piperacillin Sod/Tazobactam (Sod 2.25 gm/ Dextrose) 50 mls @ 100 mls/hr IVPB Q8H-IV [facility]; Protocol Last Admin: 06/23/18 02:43 Dose: 100 mls/hr Insulin Aspart (Novolog Vial Sliding Scale -) 1 vial SQ TIDAC [facility]; Protocol Last Admin: 06/23/18 12:07 Dose: Not Given Lisinopril (Prinivil) 40 mg PO DAILY [facility] Last Admin: 06/23/18 09:24 Dose: 40 mg Nifedipine (Procardia Xl -) 60 mg PO BID [facility] Last Admin: 06/23/18 09:23 Dose: 60 mg Ondansetron HCl (Zofran Injection) 4 mg IVPUSH Q6H PRN PRN Reason: NAUSEA AND/OR VOMITING Sevelamer Carbonate (Renvela -) 800 mg PO TIDCM [facility] Last Admin: 06/23/18 12:07 Dose: Not Given - Objective Vital Signs: Vital Signs Temperature 98.7 F 06/23/18 09:40 Pulse Rate 76 06/23/18 12:50 Respiratory Rate 18 06/23/18 12:50 Blood Pressure 184/98 H 06/23/18 12:50 O2 Sat by Pulse Oximetry (%) 95 06/22/18 22:00 Constitutional: Yes: Calm Eyes: Yes: Conjunctiva Clear Cardiovascular: Yes: S1, S2 Respiratory: Yes: CTA Bilaterally Gastrointestinal: Yes: Soft Genitourinary: Yes: WNL Edema: No Wound/Incision: Yes: Dressing Dry and Intact Neurological: Yes: Oriented Psychiatric: Yes: Oriented Labs: CBC, BMP 06/23/18 09:45 06/21/18 08:20 INR, PTT INR 1.09 (0.83-1.09) 06/06/18 06:30 Problem List - Problems (1) ESRD (end stage renal disease) Code(s): N18.6 - END STAGE RENAL DISEASE (2) Gangrene Code(s): I96 - GANGRENE, NOT ELSEWHERE CLASSIFIED (3) PAD (peripheral artery disease) Code(s): I73.9 - PERIPHERAL VASCULAR DISEASE, UNSPECIFIED Assessment/Plan Current Medications Generic Name Dose Route Start Last Admin Trade Name Freq PRN Reason Stop Dose Admin Acetaminophen 650 mg 06/19/18 10:17 06/23/18 09:22 Tylenol - PO 650 mg Q4H PRN Administration PAIN LEVEL 1-5 Aspirin 81 mg 06/20/18 10:00 06/23/18 09:23 Ecotrin - PO 81 mg DAILY [facility] Administration Atorvastatin Calcium 80 mg 06/20/18 22:00 06/22/18 21:07 Lipitor - PO 80 mg HS [facility] Administration Calcitriol 0.25 mcg 06/20/18 10:00 06/23/18 09:23 Rocaltrol - PO 0.25 mcg DAILY [facility] Administration Clopidogrel Bisulfate 75 mg 06/20/18 10:00 06/23/18 09:24 Plavix - PO 75 mg DAILY [facility] Administration Furosemide 40 mg 06/20/18 10:00 06/23/18 09:24 Lasix - PO 40 mg DAILY [facility] Administration Hydralazine HCl 100 mg 06/19/18 14:00 06/23/18 05:45 Apresoline - PO 100 mg TID [facility] Administration Piperacillin Sod/Tazobactam 50 mls @ 100 mls/hr 06/19/18 19:15 06/23/18 02:43 Sod 2.25 gm/ Dextrose IVPB 100 mls/hr Q8H-IV [facility] Administration Protocol Insulin Aspart 1 vial 06/19/18 11:00 06/23/18 12:07 Novolog Vial Sliding Scale - SQ Not Given TIDAC [facility] Protocol Lisinopril 40 mg 06/21/18 11:00 06/23/18 09:24 Prinivil PO 40 mg DAILY [facility] Administration Nifedipine 60 mg 06/19/18 22:00 06/23/18 09:23 Procardia Xl - PO 60 mg BID [facility] Administration Ondansetron HCl 4 mg 06/19/18 10:17 Zofran Injection IVPUSH Q6H PRN NAUSEA AND/OR VOMITING Sevelamer Carbonate 800 mg 06/19/18 12:00 06/23/18 12:07 Renvela - PO Not Given TIDCM [facility] Impression 1. ESRD on HD 2. anemia 3. DM 4. HTN 5. toe infection/gangrene 6. PVD Plan - HD today - abx per ID - vascular/podiatry follow up - follow iron studies - monitor bp - epogen for anemia, 29977 units - abx per ID - avf 3:00 400 abf - cont wound care - renal diet - monitor bp
--- NOTE | 2018-06-23 13:31 | PN ---
Progress Note (short form) - Note Progress Note: Patient seen in bed. Patient has pain today. Son Isiah and and daughter present with 2 other family members. +gangarene distal flap, -drainage, +dry, demarcating foot left Pain today severe pvd Wound continues to demarcate. Discussed with patient and family his current options of higher TMA or BKA. Patient agreed to revised TMA with amputation of left big toe and transmet 1st mettarsal with debridement of bone and soft tissue possible autologus flap from medial foot. Discussed with vascular believes adequate flow to heal higher TMA. No guarantees given that next procedure will work. Patient and present family members fully understood all risks benefits and alternatives and explained and translated to patient by his Eldest son Isiah. Scheduled for 10am tomorrow. Medical Clearance necessary to proceed do to comorbidities. INR, CBC with diff and esr today. Continue abx as per ID. will follow. Consent taken, son interpeted, nurse witnessed. Rx Percocet 1 dose for pain.
[2018-06-23 15:54] LABS: BASO % 0.3 % (0-2.0); HEMATOCRIT 25.7 % (35.4-49); HEMOGLOBIN 8.3 GM/dL (11.7-16.9); LYMPH % 4.3 % (8-40); MCH 31.4 pg (25.7-33.7); MCHC 32.2 g/dl (32.0-35.9); MEAN CELL VOLUME 97.4 fl (80-96); MEAN PLT VOLUME 8.4 fl (7.5-11.1); MONO % 7.2 % (3.8-10.2); NEUT % 87.2 % (42.8-82.8); PLATELET COUNT 326 K/MM3 (134-434); RBC 2.64 M/mm3 (4.00-5.60); RDW 17.4 % (11.9-15.9); WHITE BLOOD COUNT 13.3 K/mm3 (4.0-10.0)
[2018-06-23 16:32] LABS: INR 1.09 (0.83-1.09); PROTHROMBIN TIME (PATIENT) 12.9 SEC (9.7-13.0)
--- NOTE | 2018-06-23 16:45 | PN ---
Progress Note (short form) - Note Progress Note: Vascular Surgery Pt seen and examined. For TMA erik as per podiatry. Pt has good DP pulse in foot. Cleared from a vascular standpoint for podicatry surgery Kel Paiz DO Problem List - Problems (1) Gangrene of foot Code(s): I96 - GANGRENE, NOT ELSEWHERE CLASSIFIED (2) PAD (peripheral artery disease) Code(s): I73.9 - PERIPHERAL VASCULAR DISEASE, UNSPECIFIED (3) Diabetic foot infection Code(s): E11.628 - TYPE 2 DIABETES MELLITUS WITH OTHER SKIN COMPLICATIONS; L08.9 - LOCAL INFECTION OF THE SKIN AND SUBCUTANEOUS TISSUE, UNSP
--- NOTE | 2018-06-23 18:02 | PN ---
Physical Exam: SUBJECTIVE: Patient seen and examined this morning. No new complaints, No overnight events. OBJECTIVE: Vital Signs Period Temp Pulse Resp BP Sys/Cole Pulse Ox Last 24 Hr 97.5 F-98.8 F 60-77 18-20 147-193/55-98 95 GENERAL: The patient is awake, alert, and fully oriented, in no acute distress. HEAD: NCAT ENT: oropharynx clear without exudates, MMM NECK: supple, No JVD LUNGS: Breath sounds equal, clear to auscultation bilaterally, no wheezes HEART: Regular rate and rhythm, S1, S2, Systolic murmur at the LLSB ABDOMEN: Soft, nontender, nondistended, normoactive bowel sounds, no guarding EXTREMITIES: 2+ pulses, no edema. Clean LLE external dressing. Sutures intact over TransMetartarsal amputation of 2 to 5 digits without any active drainage. Slightly Tender to palpation at the base of digits 1-4. Amputation site is demarcating. Gross lower extremity sensation intact b/l. Muscle strength 5/5 on Right and 4/5 on Left to Dorsiflexion and plantarflexion NEUROLOGICAL: Cranial nerves II through XII grossly intact. Normal speech, gait not observed. Laboratory Results - last 24 hr 06/23/18 06/23/18 06/23/18 05:39 09:45 09:45 WBC 14.5 H RBC 2.55 L Hgb 8.0 L Hct 24.9 L MCV 97.3 H MCH 31.4 MCHC 32.2 RDW 17.3 H Plt Count 290 MPV 8.2 Absolute Neuts (auto) Neutrophils % Lymphocytes % Monocytes % Eosinophils % Basophils % Nucleated RBC % PT with INR INR POC Glucometer 158 Phosphorus C-Reactive Protein Blood Type O POSITIVE Antibody Screen Negative 06/23/18 06/23/18 06/23/18 09:45 15:25 15:25 WBC 13.3 H RBC 2.64 L Hgb 8.3 L Hct 25.7 L MCV 97.4 H MCH 31.4 MCHC 32.2 RDW 17.4 H Plt Count 326 MPV 8.4 Absolute Neuts (auto) 11.6 H Neutrophils % 87.2 H Lymphocytes % 4.3 L D Monocytes % 7.2 Eosinophils % 1.0 Basophils % 0.3 Nucleated RBC % 0 PT with INR INR POC Glucometer Phosphorus 4.3 C-Reactive Protein 10.3 H Blood Type Antibody Screen 06/23/18 06/23/18 15:25 16:59 WBC RBC Hgb Hct MCV MCH MCHC RDW Plt Count MPV Absolute Neuts (auto) Neutrophils % Lymphocytes % Monocytes % Eosinophils % Basophils % Nucleated RBC % PT with INR 12.90 INR 1.09 POC Glucometer 159 Phosphorus C-Reactive Protein Blood Type Antibody Screen Active Medications Acetaminophen (Tylenol -) 650 mg PO Q4H PRN PRN Reason: PAIN LEVEL 1-5 Last Admin: 06/23/18 09:22 Dose: 650 mg Aspirin (Ecotrin -) 81 mg PO DAILY [facility] Last Admin: 06/23/18 09:23 Dose: 81 mg Atorvastatin Calcium (Lipitor -) 80 mg PO HS [facility] Last Admin: 06/22/18 21:07 Dose: 80 mg Calcitriol (Rocaltrol -) 0.25 mcg PO DAILY [facility] Last Admin: 06/23/18 09:23 Dose: 0.25 mcg Clopidogrel Bisulfate (Plavix -) 75 mg PO DAILY [facility] Last Admin: 06/23/18 09:24 Dose: 75 mg Furosemide (Lasix -) 40 mg PO DAILY [facility] Last Admin: 06/23/18 09:24 Dose: 40 mg Hydralazine HCl (Apresoline -) 100 mg PO TID [facility] Last Admin: 06/23/18 13:35 Dose: 100 mg Piperacillin Sod/Tazobactam (Sod 2.25 gm/ Dextrose) 50 mls @ 100 mls/hr IVPB Q8H-IV [facility]; Protocol Last Admin: 06/23/18 17:26 Dose: 100 mls/hr Insulin Aspart (Novolog Vial Sliding Scale -) 1 vial SQ TIDAC [facility]; Protocol Last Admin: 06/23/18 17:25 Dose: 2 units Labetalol HCl (Normodyne -) 100 mg PO BID [facility] Lisinopril (Prinivil) 40 mg PO DAILY [facility] Last Admin: 06/23/18 09:24 Dose: 40 mg Nifedipine (Procardia Xl -) 60 mg PO BID [facility] Last Admin: 06/23/18 09:23 Dose: 60 mg Ondansetron HCl (Zofran Injection) 4 mg IVPUSH Q6H PRN PRN Reason: NAUSEA AND/OR VOMITING Sevelamer Carbonate (Renvela -) 800 mg PO TIDCM [facility] Last Admin: 06/23/18 17:24 Dose: 800 mg IMAGING: EKG: NORMAL SINUS RHYTHM, NONSPECIFIC T WAVE ABNORMALITY EKG done (06/10) revealed new T-wave inversions in lateral leads, Left Foot XRay: No fracture or osteomyelitis. CT ANGIOGRAM OF THE ABDOMEN AND PELVIS WITH BILATERAL LOWER EXTREMITY RUNOFFS: Predominant distal arterial disease suggestive of diabetic and/or nephrogenic vasculopathy. Predominant disease in the distal left popliteal and infrapopliteal arteries demonstrating interval improvement in flow and mild improvement in the degree of stenosis described on the prior exam, as described above. Essential flow to the foot is provided by the MIGUELITO. Peroneal artery is occluded and LEAD DATA ENTRY OPERATOR demonstrate short segmental occlusions with reconstitution of flow in the plantar artery which demonstrate robust flow. Flow is seen in the digital arteries. Predominant right infrapopliteal disease, as described above, grossly unchanged since the prior exam. Subcutaneous edema with mesenteric stranding possibly due to third spacing/anasarca. Under distended urinary bladder with suggestion of wall thickening. Correlate clinically for cystitis. ASSESSMENT/PLAN: 68 y/o M w/ PMHx CAD, [place], PVD, ESRD on HD (MWF), HTN, admitted for gangrene/ osteomyelitis of the left foot on 05/16, now presents with worsening pain and discoloration of the left 4th toe and blackening and pain of the 3rd toe 1. Gangrene of L 3rd and 4th toes, now s/p L TMA sparing great toe (06/11/18) -POD#12 s/p Amputation of Left toes 2-4 -Remains AFebrile, WBC persists -CTA noted as above -Pathology report shows bone with acute osteomyelitis -Dr. Paiz: Angiogram performed. No areas of stenosis. 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 Pt would benefit from HBO. Cleared from a vascular standpoint for podiatry surgery -ID (Dr. Reyez) consulted: Vanc/Zosyn (Started on 06/05), Outpatient treatment with Vancomycin 500mg at each HD x 4weeks, Levaquin 250mg po q48h x 4 weeks -Podiatry (Dr. Garcia) consulted: Amputation on 06/11. Patient agreed to revised TMA, Scheduled for 10am tomorrow (06/24). -Pt with post op surgical shoe -EKG done (06/10) revealed new T-wave inversions in lateral leads, case discussed with Dr. Wilkins--Pt is cleared to undergo LE surgery 2. Leukocytosis -WBC count persists -Continue Zosyn course (Started 06/11) -ID (Dr. Reyez) consulted -Vascular Surgery (Dr. Paiz): pt has runoff into forefoot. However has microvascular disease in distal forefoot leading to gangrene. 3. ESRD on HD (MWF) -Nephro (Dr. Flaherty) consulted -Vascular evaluated fistula -Cont home Lasix, Sevelamer -Pt requesting blood draws with dialysis 4. CAD/PVD -Cont ASA/Plavix 5. HTN -Cont home dose nifedipine, hydralazine, lasix -Continue Lisinopril 40mg Daily -Added Labetalol 100 mg BID 6. Anemia -Likely of chronic disease 2/2 ESRD -Epogen 12,000 7. FEN -IV NS @ 42 mls/hr -Continue to monitor lytes -Diabetic/Renal diet 8. PPx -no heparin at this time per vascular Dispo: revised TMA at 10am tomorrow (06/24), Will need PT eval prior to D/c Visit type - Emergency Visit Emergency Visit: Yes ED Registration Date: 06/05/18 Care time: The patient presented to the Emergency Department on the above date and was hospitalized for further evaluation of their emergent condition. - New Patient This patient is new to me today: No - Critical Care Critical Care patient: No
--- NOTE | 2018-06-23 18:18 | PN ---
Teaching Attending Note Name of Resident: Linda Agrawal ATTENDING PHYSICIAN STATEMENT I saw and evaluated the patient. I reviewed the resident's note and discussed the case with the resident. I agree with the resident's findings and plan as documented. SUBJECTIVE:seen in HD earlier today No fever or chills . No pain OBJECTIVE: NAD Cv : RRR, 3/6 SM at LUSB and LLSB Lungs: CTAB Ext : L foot with s/p TMA with sparing of big toe. suture line with an eschar that had worsened form last evaluation. DP 1+ L . A/P : 68 y/o man with h/o CAD, recent [place], PVD, ESRD on HD, HTN, HLP, Hep B , DM, and recent admission for L 4th toe gangrene and OM, s/p angiogram, atherectomy and angioplasty, who presented with increased pain in foot and change in L 3rd toe color. He was found to have a gangrenous 3rd and 4th toes. 1- Gangrenous 3rd and 4th L toes with OM. S/P transmetatarsal amputation with sparing of 1st toe. - Cont zosyn . - For Sx tomorrow at 10 am - Bethadine dressing daily. 2- H/o HTN: uncontrolled Continue his HZN, Nifedipine, and lisinoprol. add labetalol 100 BID 3- H/O ESRD: HD per schedule - cont lasix - cont sevelamir 4- PVD: cont statin, ASA and plavix HLOC
[2018-06-23 18:39] LABS: ERYTHROCYTE SEDIMENTATION RATE 119 mm/hr (0-20)
[2018-06-23] MEDS: ATORVASTATIN CA 80 MG TABLET (FP) PO SCH (21:06)
[2018-06-23] MEDS: LABETALOL HCL 100 MG TABLET (FP) PO SCH (21:06)
[2018-06-24] MEDS ORDERED: DEXTROSE 5%-WATER - 50 ML IVPB ONE ×3 (00:57→17:26)
[2018-06-24] MEDS ORDERED: PIPERACILLIN/TAZOBACTAM 2.25 GM VIAL IVPB ONE ×3 (00:57→17:26)
[2018-06-24] MEDS: PIPERACILLIN/TAZOB 2.25 GM 2.25 GM in DEXTROSE 5%-WATER - 50 ML IVPB SCH ×4 (01:02→17:30)
[2018-06-24] MEDS: ACETAMINOPHEN 325 MG TABLET (FP) PO PRN (05:03)
[2018-06-24] MEDS: hydrALAZINE HCL 50 MG TABLET (FP) PO SCH ×3 (05:42→21:27)
[2018-06-24] MEDS: INSULIN SLIDING SCALE (NOVOLOG) 1 VIAL SQ SCH ×3 (06:14→16:43)
[2018-06-24] MEDS ORDERED: PT OWN MED DRAWER 7, Y5N ONE ×2 (08:23→21:29)
[2018-06-24] MEDS: SEVELAMER CARBONATE 800 MG TAB (FP) PO SCH ×3 (08:24→17:29)
[2018-06-24] MEDS: LISINOPRIL 20 MG TABLET (FP) PO SCH ×2 (08:29→09:07)
[2018-06-24] MEDS: LABETALOL HCL 100 MG TABLET (FP) PO SCH ×3 (08:29→21:27)
[2018-06-24] MEDS: NIFEdipine E.R 60 MG TABLET (UD) PO SCH ×3 (08:30→21:29)
[2018-06-24] MEDS ORDERED: LIDOCAINE HCL 2% (20ML MULTI-DOSE VIAL) NR ONE (09:46)
[2018-06-24] MEDS ORDERED: DEXAMETHASONE SOD PHOSPHATE 4 MG/1 ML VIAL ONE (09:46)
[2018-06-24] MEDS ORDERED: BUPIVACAINE HCL/PF 0.5% (5MG/ML) 10 ML VIAL ONE (09:46)
[2018-06-24] MEDS: CALCITRIOL 0.25 MCG CAPSULE (FP) PO SCH (10:03)
[2018-06-24] MEDS: FUROSEMIDE 40 MG TABLET (FP) PO SCH (10:03)
[2018-06-24] MEDS: ASPIRIN COATED 81 MG TABLET.EC PO SCH (10:03)
[2018-06-24] MEDS: CLOPIDOGREL BISULFATE 75 MG TABLET (FP) PO SCH (10:03)
[2018-06-24] MEDS ORDERED: LIDOCAINE HCL/PF 2% SDV 5ML VIAL ONE (10:18)
[2018-06-24] MEDS ORDERED: PROPOFOL 20 ML ONE (10:18)
[2018-06-24] MEDS ORDERED: ePHEDrine SULFATE 50 MG/1 ML AMPULE ONE (10:47)
[2018-06-24] MEDS ORDERED: GLYCOPYRROLATE 0.2 MG/1 ML VIAL ONE (10:48)
[2018-06-24] MEDS ORDERED: ATROPINE SULFATE 1 MG/10 ML DISP.SYRIN ONE (10:53)
--- NOTE | 2018-06-24 11:41 | OP ---
Operative Note - Note: Operative Date: 06/24/18 Pre-Operative Diagnosis: Ganagrene left foot Operation: revision tma and amputation 1st ray left foot Findings: gangarene, necrotic bone, poor bleeding, necrotic tissue, Post-Operative Diagnosis: Same as Pre-op Surgeon: Rolando Garcia Anesthesia: General Specimens Removed: Bone and soft tissue Estimated Blood Loss (mls): 20 Instrument used (Debridements only): saw, blade, Drains & Tubes with Location: 09/19" plain packing Operative Report Dictated: No
[2018-06-24] MEDS ORDERED: ONDANSETRON 4 MG/2 ML VIAL IVPUSH PRN (12:12)
[2018-06-24] MEDS ORDERED: oxyCODONE HCL 5 MG TABLET ONE (13:00)
[2018-06-24] MEDS ORDERED: oxyCODONE HCL 5 MG TABLET PO ONE (13:04)
--- NOTE | 2018-06-24 14:04 | OP ---
DATE OF OPERATION: 06/11/2018 PREOPERATIVE DIAGNOSIS: Gangrene, toes 2, 3, 4, left foot. POSTOPERATIVE DIAGNOSIS: Gangrene, toes 2, 3, 4, left foot, with necrotic changes of metatarsal heads 2, 3, 4, 5, left foot. SURGEON: Rolando Garcia DPM MATERIALS BUYER: Almas Neely DPM ESTIMATED BLOOD LOSS: 30 mL. PROCEDURE WAS FOLLOWS: After noting all preoperative vital signs were within normal limits and after the surgical consent was signed and witnessed, the patient was brought to the OR, placed on the table in the supine position. An IV line had been started prior to the patient coming to the OR. Once the patient was in the OR, the patient was given a high ankle block on the left foot. Once this was done, the patients foot was then prepped and draped in the usual sterile fashion. Attention was then directed to toes 2, 3, 4, 5 of the left foot. Utilizing sharp and blunt dissection, toes 2, 3, 4, and 5 of the left foot were disarticulated from the metatarsal. Once disarticulated, the specimen was sent down to pathology. At this time, bleeding was noted to be minimal. Once this was done, the metatarsal heads were inspected of 2, 3, 4, and 5, all noted to be dusky in appearance with early signs of ischemia. Metatarsal head 3 and 4 were noted to be soft and infected. Metatarsal heads 2&5 were soft as well. At this time, utilizing a sagittal saw, after the metatarsal heads were liberated from all soft tissue, metatarsal heads 2, 3, 4, and 5 were resected going from medial to lateral, resecting the distal 1/3 of each metatarsal and sending the specimens down to pathology. At this time, bleeding was noted to be a little bit better than before. The wound was explored. There was no necrotic tissue noted remaining. The left hallux was noted to be intact. The wound was then irrigated with copious amounts of antibiotic irrigation. Retention sutures were then put into place, 0.25-inch Iodoform packing was put into place, a fluff dressing was applied after some Xeroform had applied to the incision line. Patient tolerated the anesthesia and the procedure well. Patient returned to the recovery room with vital signs stable and vascular status intact. Rolando Garcia DPM [id number]
[2018-06-24] MEDS ORDERED: ACETAMINOPHEN 325 MG TABLET (FP) PO PRN (15:09)
[2018-06-24] MEDS: MORPHINE SULFATE 2 MG/ML VIAL IVPUSH PRN (15:21)
[2018-06-24] MEDS: oxyCODONE HCL 5 MG TABLET PO PRN (17:28)
[2018-06-24] MEDS ORDERED: SODIUM CHLORIDE 250 ML IV PRN (18:09)
--- NOTE | 2018-06-24 18:09 | PN ---
Progress Note, Physician History of Present Illness: Pt seen and examined at bedside. He is awake and alert. He is s/p revision tma and amputation 1st ray left foot. - Current Medication List Current Medications: Active Medications Acetaminophen (Tylenol -) 650 mg PO QID PRN PRN Reason: PAIN Acetaminophen (Tylenol -) 325 mg PO Q4H PRN PRN Reason: PAIN LEVEL 4 - 6 Aspirin (Ecotrin -) 81 mg PO DAILY [facility] Atorvastatin Calcium (Lipitor -) 80 mg PO HS [facility] Calcitriol (Rocaltrol -) 0.25 mcg PO DAILY [facility] Clopidogrel Bisulfate (Plavix -) 75 mg PO DAILY [facility] Fentanyl (Sublimaze Injection -) 25 mcg IVPUSH [id number] PRN PRN Reason: PAIN-PACU ORDER X 4 DOSES ONLY Last Admin: 06/24/18 12:40 Dose: 25 mcg Furosemide (Lasix -) 40 mg PO DAILY [facility] Hydralazine HCl (Apresoline -) 100 mg PO TID [facility] Last Admin: 06/24/18 14:08 Dose: 100 mg Piperacillin Sod/Tazobactam (Sod 2.25 gm/ Dextrose) 50 mls @ 100 mls/hr IVPB Q8H-IV [facility]; Protocol Last Admin: 06/24/18 17:30 Dose: 100 mls/hr Insulin Aspart (Novolog Vial Sliding Scale -) 1 vial SQ TIDAC [facility]; Protocol Last Admin: 06/24/18 16:43 Dose: Not Given Labetalol HCl (Normodyne -) 100 mg PO BID [facility] Lisinopril (Prinivil) 40 mg PO DAILY [facility] Morphine Sulfate (Morphine Sulfate) 2 mg IVPUSH Q4H PRN PRN Reason: PAIN LEVEL 6-10 Last Admin: 06/24/18 15:21 Dose: 2 mg Nifedipine (Procardia Xl -) 60 mg PO BID [facility] Ondansetron HCl (Zofran Injection) 4 mg IVPUSH Q6H PRN PRN Reason: NAUSEA AND/OR VOMITING Oxycodone HCl (Roxicodone -) 5 mg PO Q4H PRN PRN Reason: PAIN LEVEL 4 - 6 Last Admin: 06/24/18 17:28 Dose: 5 mg Sevelamer Carbonate (Renvela -) 800 mg PO TIDCM [facility] Last Admin: 06/24/18 17:29 Dose: 800 mg - Objective Vital Signs: Vital Signs Temperature 98.3 F 06/24/18 14:03 Pulse Rate 78 06/24/18 14:03 Respiratory Rate 20 06/24/18 14:03 Blood Pressure 177/80 H 06/24/18 14:03 O2 Sat by Pulse Oximetry (%) 94 L 06/24/18 14:03 Constitutional: Yes: Calm Eyes: Yes: Conjunctiva Clear HENT: Yes: Atraumatic Neck: Yes: Supple Cardiovascular: Yes: S1, S2 Respiratory: Yes: CTA Bilaterally Gastrointestinal: Yes: Soft Genitourinary: Yes: WNL Edema: No Wound/Incision: Yes: Dressing Dry and Intact Neurological: Yes: Oriented Psychiatric: Yes: Oriented Labs: CBC, BMP 06/23/18 15:25 06/21/18 08:20 INR, PTT INR 1.09 (0.83-1.09) 06/23/18 15:25 Problem List - Problems (1) ESRD (end stage renal disease) Code(s): N18.6 - END STAGE RENAL DISEASE (2) Gangrene Code(s): I96 - GANGRENE, NOT ELSEWHERE CLASSIFIED (3) PAD (peripheral artery disease) Code(s): I73.9 - PERIPHERAL VASCULAR DISEASE, UNSPECIFIED Assessment/Plan Current Medications Generic Name Dose Route Start Last Admin Trade Name Freq PRN Reason Stop Dose Admin Acetaminophen 650 mg 06/24/18 11:34 Tylenol - PO QID PRN PAIN Acetaminophen 325 mg 06/24/18 15:09 Tylenol - PO Q4H PRN PAIN LEVEL 4 - 6 Aspirin 81 mg 06/25/18 10:00 Ecotrin - PO DAILY [facility] Atorvastatin Calcium 80 mg 06/24/18 22:00 Lipitor - PO HS [facility] Calcitriol 0.25 mcg 06/25/18 10:00 Rocaltrol - PO DAILY [facility] Clopidogrel Bisulfate 75 mg 06/25/18 10:00 Plavix - PO DAILY [facility] Fentanyl 25 mcg 06/24/18 11:41 06/24/18 12:40 Sublimaze Injection - IVPUSH 25 mcg [id number] PRN Administration PAIN-PACU ORDER X 4 DOSES ONLY Furosemide 40 mg 06/25/18 10:00 Lasix - PO DAILY [facility] Hydralazine HCl 100 mg 06/24/18 14:00 06/24/18 14:08 Apresoline - PO 100 mg TID [facility] Administration Piperacillin Sod/Tazobactam 50 mls @ 100 mls/hr 06/24/18 18:00 06/24/18 17:30 Sod 2.25 gm/ Dextrose IVPB 100 mls/hr Q8H-IV [facility] Administration Protocol Insulin Aspart 1 vial 06/24/18 16:30 06/24/18 16:43 Novolog Vial Sliding Scale - SQ Not Given TIDAC [facility] Protocol Labetalol HCl 100 mg 06/24/18 22:00 Normodyne - PO BID [facility] Lisinopril 40 mg 06/25/18 10:00 Prinivil PO DAILY [facility] Morphine Sulfate 2 mg 06/24/18 15:08 06/24/18 15:21 Morphine Sulfate IVPUSH 2 mg Q4H PRN Administration PAIN LEVEL 6-10 Nifedipine 60 mg 06/24/18 22:00 Procardia Xl - PO BID [facility] Ondansetron HCl 4 mg 06/24/18 12:12 Zofran Injection IVPUSH Q6H PRN NAUSEA AND/OR VOMITING Oxycodone HCl 5 mg 06/24/18 15:08 06/24/18 17:28 Roxicodone - PO 5 mg Q4H PRN Administration PAIN LEVEL 4 - 6 Sevelamer Carbonate 800 mg 06/24/18 17:30 06/24/18 17:29 Renvela - PO 800 mg TIDCM [facility] Administration Impression 1. ESRD on HD 2. anemia 3. DM 4. HTN 5. toe infection/gangrene 6. PVD 7. revision tma and amputation 1st ray left foot Plan - HD in am - cont wound care - check hg - follow iron studies - epogen for anemia, [id number] units - abx per ID - avf 3:00 400 abf - renal diet - monitor bp
--- NOTE | 2018-06-24 18:25 | PN ---
Teaching Attending Note Name of Resident: Paulo Noriega ATTENDING PHYSICIAN STATEMENT I saw and evaluated the patient. I reviewed the resident's note and discussed the case with the resident. I agree with the resident's findings and plan as documented. SUBJECTIVE:seenafter his sx No fever or chills . No abd pain, No CP. has painin L foot OBJECTIVE: NAD Cv: RRR, 3/6 SM at LUSB and LLSB Lungs: CTAB Ext : L foot with a surgical dressing. R leg with no edema or erythema A/P: 68 y/o man with h/o CAD, recent [place], PVD, ESRD on HD, HTN, HLP, Hep B , DM, and recent admission for L 4th toe gangrene and OM, s/p angiogram, atherectomy and angioplasty, who presented with increased pain in foot and change in L 3rd toe color. He was found to have a gangrenous 3rd and 4th toes. 1- Gangrenous 3rd and 4th L toes with OM. S/P revision TMA nad amputaiton of 1st toe today . - Cont zosyn . - pain control morphine and oxy 2- H/o HTN: uncontrolled Continue his HZN, Nifedipine, and lisinoprol. labetalol 100 BID added yesterday , can always increase 3- H/O ESRD: HD per schedule. - cont lasix - cont sevelamir 4- PVD: cont statin, ASA and plavix HLOC
--- NOTE | 2018-06-24 20:20 | PN ---
Physical Exam: SUBJECTIVE: Patient seen and examined this morning. No new complaints, No overnight events. Continues to have left foot pain over night, requested tylenol x1. Denies fevers, chills, chest pain, SOB, abdominal pain. OBJECTIVE: Vital Signs Period Temp Pulse Resp BP Sys/Cole Pulse Ox Last 24 Hr 98.3 F-100.0 F 18-78 16-76 140-191/61-80 94-100 GENERAL: The patient is awake, alert, and fully oriented, in no acute distress. HEAD: NCAT ENT: oropharynx clear without exudates, MMM NECK: supple, No JVD LUNGS: Breath sounds equal, clear to auscultation bilaterally, no wheezes HEART: Regular rate and rhythm, S1, S2, Systolic murmur at the LLSB ABDOMEN: Soft, nontender, nondistended, normoactive bowel sounds, no guarding EXTREMITIES: 2+ pulses, no edema. Clean LLE external dressing. Sutures intact over TransMetartarsal amputation of 2 to 5 digits without any active drainage. Slightly Tender to palpation at the base of digits 1-4. Amputation site is demarcating. Gross lower extremity sensation intact b/l. Muscle strength 5/5 on Right and 4/5 on Left to Dorsiflexion and plantarflexion NEUROLOGICAL: Cranial nerves II through XII grossly intact. Normal speech, gait not observed. Laboratory Results - last 24 hr 06/24/18 06/24/18 06/24/18 05:21 06:45 12:23 POC Glucometer 125 136 Ferritin 432.8 H 06/24/18 16:42 POC Glucometer 113 Ferritin Active Medications Acetaminophen (Tylenol -) 650 mg PO QID PRN PRN Reason: PAIN Acetaminophen (Tylenol -) 325 mg PO Q4H PRN PRN Reason: PAIN LEVEL 4 - 6 Aspirin (Ecotrin -) 81 mg PO DAILY [facility] Atorvastatin Calcium (Lipitor -) 80 mg PO HS [facility] Calcitriol (Rocaltrol -) 0.25 mcg PO DAILY [facility] Clopidogrel Bisulfate (Plavix -) 75 mg PO DAILY [facility] Epoetin Thomas (Epogen -) 12,000 unit IVPUSH ONCE ONE Stop: 06/25/18 18:10 Fentanyl (Sublimaze Injection -) 25 mcg IVPUSH [id number] PRN PRN Reason: PAIN-PACU ORDER X 4 DOSES ONLY Last Admin: 06/24/18 12:40 Dose: 25 mcg Furosemide (Lasix -) 40 mg PO DAILY [facility] Hydralazine HCl (Apresoline -) 100 mg PO TID [facility] Last Admin: 06/24/18 14:08 Dose: 100 mg Piperacillin Sod/Tazobactam (Sod 2.25 gm/ Dextrose) 50 mls @ 100 mls/hr IVPB Q8H-IV [facility]; Protocol Last Admin: 06/24/18 17:30 Dose: 100 mls/hr Sodium Chloride (Normal Saline -) 250 mls @ 3,000 mls/hr IV PRN PRN PRN Reason: Hypotension during Dialysis Stop: 06/25/18 18:09 Insulin Aspart (Novolog Vial Sliding Scale -) 1 vial SQ TIDAC [facility]; Protocol Last Admin: 06/24/18 16:43 Dose: Not Given Labetalol HCl (Normodyne -) 100 mg PO BID [facility] Lisinopril (Prinivil) 40 mg PO DAILY [facility] Morphine Sulfate (Morphine Sulfate) 2 mg IVPUSH Q4H PRN PRN Reason: PAIN LEVEL 6-10 Last Admin: 06/24/18 15:21 Dose: 2 mg Nifedipine (Procardia Xl -) 60 mg PO BID [facility] Ondansetron HCl (Zofran Injection) 4 mg IVPUSH Q6H PRN PRN Reason: NAUSEA AND/OR VOMITING Oxycodone HCl (Roxicodone -) 5 mg PO Q4H PRN PRN Reason: PAIN LEVEL 4 - 6 Last Admin: 06/24/18 17:28 Dose: 5 mg Sevelamer Carbonate (Renvela -) 800 mg PO TIDCM [facility] Last Admin: 06/24/18 17:29 Dose: 800 mg IMAGING: EKG: NORMAL SINUS RHYTHM, NONSPECIFIC T WAVE ABNORMALITY EKG done (06/10) revealed new T-wave inversions in lateral leads, Left Foot XRay: No fracture or osteomyelitis. CT ANGIOGRAM OF THE ABDOMEN AND PELVIS WITH BILATERAL LOWER EXTREMITY RUNOFFS: Predominant distal arterial disease suggestive of diabetic and/or nephrogenic vasculopathy. Predominant disease in the distal left popliteal and infrapopliteal arteries demonstrating interval improvement in flow and mild improvement in the degree of stenosis described on the prior exam, as described above. Essential flow to the foot is provided by the MIGUELITO. Peroneal artery is occluded and PROOF TECHNICIAN demonstrate short segmental occlusions with reconstitution of flow in the plantar artery which demonstrate robust flow. Flow is seen in the digital arteries. Predominant right infrapopliteal disease, as described above, grossly unchanged since the prior exam. Subcutaneous edema with mesenteric stranding possibly due to third spacing/anasarca. Under distended urinary bladder with suggestion of wall thickening. Correlate clinically for cystitis. ASSESSMENT/PLAN: 68 y/o M w/ PMHx CAD, [place], PVD, ESRD on HD ([place]), HTN, admitted for gangrene/ osteomyelitis of the left foot on 05/16, now presents with worsening pain and discoloration of the left 4th toe and blackening and pain of the 3rd toe 1. Gangrene of L 3rd and 4th toes with Osteomyelitis -S/P revision tma (Left toes 2-4) and amputation 1st ray left foot (06/24); s/p L TMA sparing great toe (06/11/18) -Continue Zosyn course (Started 06/11) -Pain control via Oxycodone, Morphine -CTA noted as above -Pathology report shows bone with acute osteomyelitis -Dr. Paiz: Angiogram performed. No areas of stenosis. 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 Pt would benefit from HBO. Cleared from a vascular standpoint for podiatry surgery -ID (Dr. Reyez) consulted: Vanc/Zosyn (Started on 06/05), Outpatient treatment with Vancomycin 500mg at each HD x 4weeks, Levaquin 250mg po q48h x 4 weeks -Podiatry (Dr. Garcia) consulted: Amputation on 06/11. Patient agreed to revised TMA, Scheduled for 10am tomorrow (06/24). -Pt with post op surgical shoe -EKG done (06/10) revealed new T-wave inversions in lateral leads, case discussed with Dr. Wilkins--Pt is cleared to undergo LE surgery 2. ESRD on HD ([facility]) -Nephro (Dr. Flaherty) consulted -Vascular evaluated fistula -Cont home Lasix, Sevelamer -Pt requesting blood draws with dialysis 3. CAD/PVD -Cont ASA/Plavix 4. HTN -Cont home dose nifedipine, hydralazine, lasix -Continue Lisinopril 40mg Daily -Continue Labetalol 100 mg BID 5. Anemia -Likely of chronic disease 2/2 ESRD -Epogen 12,000 6. FEN -PO Fluids -Continue to monitor lytes -Diabetic/Renal diet 7. PPx -no heparin at this time per vascular Dispo: Will need PT eval prior to D/c Visit type - Emergency Visit Emergency Visit: Yes ED Registration Date: 06/05/18 Care time: The patient presented to the Emergency Department on the above date and was hospitalized for further evaluation of their emergent condition. - New Patient This patient is new to me today: No - Critical Care Critical Care patient: No - Discharge Referral Referred to [facility] Med P.C.: No
[2018-06-24] MEDS: ATORVASTATIN CA 80 MG TABLET (FP) PO SCH (21:27)
[2018-06-25] MEDS: oxyCODONE HCL 5 MG TABLET PO PRN (00:49)
[2018-06-25] MEDS ORDERED: DEXTROSE 5%-WATER - 50 ML IVPB ONE ×3 (01:15→17:57)
[2018-06-25] MEDS ORDERED: PIPERACILLIN/TAZOBACTAM 2.25 GM VIAL IVPB ONE ×3 (01:15→17:57)
[2018-06-25] MEDS: PIPERACILLIN/TAZOB 2.25 GM 2.25 GM in DEXTROSE 5%-WATER - 50 ML IVPB SCH ×3 (03:25→18:02)
[2018-06-25] MEDS: hydrALAZINE HCL 50 MG TABLET (FP) PO SCH ×3 (05:49→21:41)
[2018-06-25 06:06] LABS: SERUM IRON SATURATION 18 % (15-55); TOTAL IRON BINDING CAPACITY 175 ug/dL (250-450); UIBC 144 ug/dL (111-343)
[2018-06-25] MEDS: INSULIN SLIDING SCALE (NOVOLOG) 1 VIAL SQ SCH ×3 (06:22→16:35)
[2018-06-25] MEDS: SEVELAMER CARBONATE 800 MG TAB (FP) PO SCH ×3 (08:36→17:28)
[2018-06-25] MEDS: ACETAMINOPHEN 325 MG TABLET (FP) PO PRN (09:06)
[2018-06-25] MEDS ORDERED: EPOETIN ALFA 10,000 UNIT, EPOETIN ALFA 2,000 UNIT IVPUSH ONE (09:15)
--- NOTE | 2018-06-25 09:21 | PN ---
Physical Exam: SUBJECTIVE: Patient seen and examined this morning. Received Oxycodone x2 overnight. Blood was draining through the dressing overnight, Night team was informed and bandage was reinforced. Patient continues to complain of pain this morning. Denies any fevers, chills, chest pain, SOB, nausea, vomiting. OBJECTIVE: Vital Signs Period Temp Pulse Resp BP Sys/Cole Pulse Ox Last 24 Hr 98.3 F-99.4 F 18-84 16-76 141-186/54-80 94-100 GENERAL: A&Ox3, NAD HEAD: NCAT ENT: Oropharynx clear without exudates, MMM NECK: supple, No JVD LUNGS: Breath sounds equal, clear to auscultation bilaterally, no wheezes HEART: Regular rate and rhythm, S1, S2, Systolic murmur at the LLSB ABDOMEN: Soft, nontender, nondistended, normoactive bowel sounds, no guarding EXTREMITIES: 2+ pulses, no edema. Dried, bright red blood covering the Left foot external dressing. Dressing was not removed to view incision site. Gross lower extremity sensation above the bandage site intact b/l. Unable to test muscle strength as patient was complaining of pain. Unable to test pulses as LLE is completely wrapped in bandage. NEUROLOGICAL: Cranial nerves II through XII grossly intact. Normal speech, gait not observed. Laboratory Results - last 24 hr 06/24/18 06/24/18 06/24/18 06:45 12:23 16:42 POC Glucometer 136 113 Iron 31 L TIBC 175 L Iron Saturation 18 06/24/18 06/25/18 21:16 05:48 POC Glucometer 138 136 Iron TIBC Iron Saturation Microbiology 06/05/18 11:10 Blood - Peripheral Venous Blood Culture - Final NO GROWTH AFTER 5 DAYS INCUBATION 06/05/18 11:10 Blood - Peripheral Venous Blood Culture - Final NO GROWTH AFTER 5 DAYS INCUBATION Active Medications Acetaminophen (Tylenol -) 650 mg PO QID PRN PRN Reason: PAIN Acetaminophen (Tylenol -) 325 mg PO Q4H PRN PRN Reason: PAIN LEVEL 4 - 6 Last Admin: 06/25/18 00:50 Dose: 325 mg Aspirin (Ecotrin -) 81 mg PO DAILY [facility] Atorvastatin Calcium (Lipitor -) 80 mg PO HS [facility] Last Admin: 06/24/18 21:27 Dose: 80 mg Calcitriol (Rocaltrol -) 0.25 mcg PO DAILY [facility] Clopidogrel Bisulfate (Plavix -) 75 mg PO DAILY [facility] Epoetin Thomas (Epogen -) 12,000 unit IVPUSH ONCE ONE Stop: 06/25/18 18:10 Fentanyl (Sublimaze Injection -) 25 mcg IVPUSH [id number] PRN PRN Reason: PAIN-PACU ORDER X 4 DOSES ONLY Last Admin: 06/24/18 12:40 Dose: 25 mcg Furosemide (Lasix -) 40 mg PO DAILY [facility] Hydralazine HCl (Apresoline -) 100 mg PO TID [facility] Last Admin: 06/25/18 05:49 Dose: 100 mg Piperacillin Sod/Tazobactam (Sod 2.25 gm/ Dextrose) 50 mls @ 100 mls/hr IVPB Q8H-IV [facility]; Protocol Last Admin: 06/25/18 03:25 Dose: 100 mls/hr Sodium Chloride (Normal Saline -) 250 mls @ 3,000 mls/hr IV PRN PRN PRN Reason: Hypotension during Dialysis Stop: 06/25/18 18:09 Insulin Aspart (Novolog Vial Sliding Scale -) 1 vial SQ TIDAC [facility]; Protocol Last Admin: 06/25/18 06:22 Dose: Not Given Labetalol HCl (Normodyne -) 100 mg PO BID [facility] Last Admin: 06/24/18 21:27 Dose: 100 mg Lisinopril (Prinivil) 40 mg PO DAILY [facility] Morphine Sulfate (Morphine Sulfate) 2 mg IVPUSH Q4H PRN PRN Reason: PAIN LEVEL 6-10 Last Admin: 06/24/18 15:21 Dose: 2 mg Nifedipine (Procardia Xl -) 60 mg PO BID [facility] Last Admin: 06/24/18 21:29 Dose: 60 mg Ondansetron HCl (Zofran Injection) 4 mg IVPUSH Q6H PRN PRN Reason: NAUSEA AND/OR VOMITING Oxycodone HCl (Roxicodone -) 5 mg PO Q4H PRN PRN Reason: PAIN LEVEL 4 - 6 Last Admin: 06/25/18 00:49 Dose: 5 mg Sevelamer Carbonate (Renvela -) 800 mg PO TIDCM [facility] Last Admin: 06/25/18 08:36 Dose: Not Given IMAGING: EKG: NORMAL SINUS RHYTHM, NONSPECIFIC T WAVE ABNORMALITY EKG done (9/25) revealed new T-wave inversions in lateral leads, Left Foot XRay: No fracture or osteomyelitis. CT ANGIOGRAM OF THE ABDOMEN AND PELVIS WITH BILATERAL LOWER EXTREMITY RUNOFFS: Predominant distal arterial disease suggestive of diabetic and/or nephrogenic vasculopathy. Predominant disease in the distal left popliteal and infrapopliteal arteries demonstrating interval improvement in flow and mild improvement in the degree of stenosis described on the prior exam, as described above. Essential flow to the foot is provided by the MIGUELITO. Peroneal artery is occluded and [employer] demonstrate short segmental occlusions with reconstitution of flow in the plantar artery which demonstrate robust flow. Flow is seen in the digital arteries. Predominant right infrapopliteal disease, as described above, grossly unchanged since the prior exam. Subcutaneous edema with mesenteric stranding possibly due to third spacing/anasarca. Under distended urinary bladder with suggestion of wall thickening. Correlate clinically for cystitis. ASSESSMENT/PLAN: 68 y/o M w/ PMHx CAD, LA, PVD, ESRD on HD (MWF), HTN, admitted for gangrene/ osteomyelitis of the left foot on 05/16, now presents with worsening pain and discoloration of the left 4th toe and blackening and pain of the 3rd toe 1. Gangrene of L 3rd and 4th toes with Osteomyelitis -POD#1 S/P revision tma (Left toes 2-4) and amputation 1st ray left foot (06/24) ; s/p L TMA sparing great toe (06/11/18) -Continue Zosyn course (Started 06/11) -Pain control via Oxycodone, Morphine -Podiatry (Dr. Garcia) consulted: Amputation on 06/11. Patient agreed to revised TMA, Scheduled for 06/24. -CTA noted as above -Previous Pathology report s/p TMA on 06/11 showed bone with acute osteomyelitis -Dr. Paiz: Angiogram performed. No areas of stenosis. 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 Pt would benefit from HBO. Cleared from a vascular standpoint for podiatry surgery -ID (Dr. Reyez) consulted: Vanc/Zosyn (Started on 06/05), Outpatient treatment with Vancomycin 500mg at each HD x 4weeks, Levaquin 250mg po q48h x 4 weeks -Pt with post op surgical shoe -EKG done (06/10) revealed new T-wave inversions in lateral leads, case discussed with Dr. Wilkins--Pt is cleared to undergo LE surgery 2. ESRD on HD (MWF) -Nephro (Dr. Flaherty) consulted -Vascular evaluated fistula -Cont home Lasix, Sevelamer -Pt requesting blood draws with dialysis 3. CAD/PVD -Cont ASA/Plavix 4. HTN -Cont home dose nifedipine, hydralazine, lasix -Continue Lisinopril 40mg Daily -Continue Labetalol 100 mg BID 5. Anemia -Likely of chronic disease 2/2 ESRD -Epogen 12,000 6. FEN -PO Fluids -Continue to monitor lytes -Diabetic/Renal diet 7. PPx -no heparin at this time per vascular Dispo: Will need PT eval prior to D/c Visit type - Emergency Visit Emergency Visit: Yes ED Registration Date: 06/05/18 Care time: The patient presented to the Emergency Department on the above date and was hospitalized for further evaluation of their emergent condition. - New Patient This patient is new to me today: No - Critical Care Critical Care patient: No - Discharge Referral Referred to [facility] Med P.C.: No
[2018-06-25 09:36] LABS: BASO % 0.8 % (0-2.0); EOS % 0.8 % (0-4.5); LYMPH % 5.6 % (8-40); MCH 30.6 pg (25.7-33.7); MCHC 31.2 g/dl (32.0-35.9); MEAN CELL VOLUME 98.3 fl (80-96); MEAN PLT VOLUME 8.7 fl (7.5-11.1); MONO % 9.9 % (3.8-10.2); NEUT % 82.9 % (42.8-82.8); PLATELET COUNT 269 K/MM3 (134-434); RBC 2.24 M/mm3 (4.00-5.60); RDW 17.5 % (11.9-15.9); WHITE BLOOD COUNT 17.4 K/mm3 (4.0-10.0)
[2018-06-25 09:39] LABS: HEMOGLOBIN 6.9 GM/dL (11.7-16.9)
[2018-06-25 10:21] LABS: ALBUMIN 1.9 g/dl (3.4-5.0); ALK PHOS 326 U/L (45-117); ANION GAP 13 MMOL/L (8-16); BILIRUBIN,TOTAL 0.7 mg/dL (0.2-1); BLOOD UREA NITROGEN 36 mg/dL (7-18); CALCIUM 9.6 mg/dL (8.5-10.1); CHLORIDE 94 mmol/L (98-107); CO2 27 mmol/L (21-32); CREATININE 7.2 mg/dL (0.55-1.3); GLUCOSE,RANDOM 126 mg/dL (74-106); MAGNESIUM 2.3 mg/dL (1.8-2.4); PHOSPHOROUS 5.5 mg/dL (2.5-4.9); POTASSIUM 4.2 mmol/L (3.5-5.1); SGOT/AST 31 U/L (15-37); SGPT/ALT 14 U/L (13-61); SODIUM 134 mmol/L (136-145)
--- NOTE | 2018-06-25 10:49 | PN ---
Progress Note (short form) - Note Progress Note: Anesthesia POD#1 S/P Revision of Left Transmetatarsal Amputation under GA VSS,no N/V,Hg dropped,receiving one unit of PRBC,pain is bearable. Still bleeding from the wound. Marija Roberts MD.
[2018-06-25 11:07] LABS: INR 1.21 (0.83-1.09); PROTHROMBIN TIME (PATIENT) 14.3 SEC (9.7-13.0)
[2018-06-25] MEDS ORDERED: PT OWN MED DRAWER 7, Y5N ONE ×2 (12:01→21:44)
[2018-06-25] MEDS: MORPHINE SULFATE 2 MG/ML VIAL IVPUSH PRN (12:03)
[2018-06-25] MEDS: CALCITRIOL 0.25 MCG CAPSULE (FP) PO SCH (12:03)
[2018-06-25] MEDS: LABETALOL HCL 100 MG TABLET (FP) PO SCH ×2 (12:03→21:44)
[2018-06-25] MEDS: LISINOPRIL 20 MG TABLET (FP) PO SCH (12:04)
[2018-06-25] MEDS: ASPIRIN COATED 81 MG TABLET.EC PO SCH (12:04)
[2018-06-25] MEDS: CLOPIDOGREL BISULFATE 75 MG TABLET (FP) PO SCH (12:04)
[2018-06-25] MEDS: NIFEdipine E.R 60 MG TABLET (UD) PO SCH ×2 (12:04→21:44)
[2018-06-25] MEDS: FUROSEMIDE 40 MG TABLET (FP) PO SCH (12:04)
[2018-06-25] MEDS ORDERED: INSULIN (NOVOLOG) ASPART 100 UNITS/ML 10ML VIAL ONE (12:18)
--- NOTE | 2018-06-25 13:00 | PN ---
Progress Note, Physician History of Present Illness: Pt seen and examined at bedside. He is tolerating HD. - Current Medication List Current Medications: Active Medications Acetaminophen (Tylenol -) 650 mg PO QID PRN PRN Reason: PAIN Last Admin: 06/25/18 09:06 Dose: 650 mg Acetaminophen (Tylenol -) 325 mg PO Q4H PRN PRN Reason: PAIN LEVEL 4 - 6 Last Admin: 06/25/18 00:50 Dose: 325 mg Aspirin (Ecotrin -) 81 mg PO DAILY [facility] Last Admin: 06/25/18 12:04 Dose: 81 mg Atorvastatin Calcium (Lipitor -) 80 mg PO HS [facility] Last Admin: 06/24/18 21:27 Dose: 80 mg Calcitriol (Rocaltrol -) 0.25 mcg PO DAILY [facility] Last Admin: 06/25/18 12:03 Dose: 0.25 mcg Clopidogrel Bisulfate (Plavix -) 75 mg PO DAILY [facility] Last Admin: 06/25/18 12:04 Dose: 75 mg Fentanyl (Sublimaze Injection -) 25 mcg IVPUSH [id number] PRN PRN Reason: PAIN-PACU ORDER X 4 DOSES ONLY Last Admin: 06/24/18 12:40 Dose: 25 mcg Furosemide (Lasix -) 40 mg PO DAILY [facility] Last Admin: 06/25/18 12:04 Dose: 40 mg Hydralazine HCl (Apresoline -) 100 mg PO TID [facility] Last Admin: 06/25/18 05:49 Dose: 100 mg Piperacillin Sod/Tazobactam (Sod 2.25 gm/ Dextrose) 50 mls @ 100 mls/hr IVPB Q8H-IV [facility]; Protocol Last Admin: 06/25/18 12:05 Dose: 100 mls/hr Sodium Chloride (Normal Saline -) 250 mls @ 3,000 mls/hr IV PRN PRN PRN Reason: Hypotension during Dialysis Stop: 06/25/18 18:09 Insulin Aspart (Novolog Vial Sliding Scale -) 1 vial SQ TIDAC [facility]; Protocol Last Admin: 06/25/18 12:22 Dose: Not Given Labetalol HCl (Normodyne -) 100 mg PO BID [facility] Last Admin: 06/25/18 12:03 Dose: 100 mg Lisinopril (Prinivil) 40 mg PO DAILY [facility] Last Admin: 06/25/18 12:04 Dose: 40 mg Morphine Sulfate (Morphine Sulfate) 2 mg IVPUSH Q4H PRN PRN Reason: PAIN LEVEL 6-10 Last Admin: 06/25/18 12:03 Dose: 2 mg Nifedipine (Procardia Xl -) 60 mg PO BID [facility] Last Admin: 06/25/18 12:04 Dose: 60 mg Ondansetron HCl (Zofran Injection) 4 mg IVPUSH Q6H PRN PRN Reason: NAUSEA AND/OR VOMITING Oxycodone HCl (Roxicodone -) 5 mg PO Q4H PRN PRN Reason: PAIN LEVEL 4 - 6 Last Admin: 06/25/18 00:49 Dose: 5 mg Sevelamer Carbonate (Renvela -) 800 mg PO TIDCM [facility] Last Admin: 06/25/18 12:03 Dose: 800 mg - Objective Vital Signs: Vital Signs Temperature 98.5 F 06/25/18 11:40 Pulse Rate 74 06/25/18 11:40 Respiratory Rate 18 06/25/18 11:40 Blood Pressure 150/67 06/25/18 11:40 O2 Sat by Pulse Oximetry (%) 94 L 06/24/18 20:15 Constitutional: Yes: Calm Eyes: Yes: Conjunctiva Clear HENT: Yes: Atraumatic Neck: Yes: Supple Cardiovascular: Yes: S1, S2 Respiratory: Yes: CTA Bilaterally Gastrointestinal: Yes: Normal Bowel Sounds, Soft Genitourinary: Yes: WNL Edema: No Wound/Incision: Yes: Other (bleeding from dressing) Neurological: Yes: Oriented Psychiatric: Yes: Oriented Labs: CBC, BMP 06/25/18 08:30 06/25/18 08:30 INR, PTT INR 1.21 (0.83-1.09) H 06/25/18 10:20 Problem List - Problems (1) ESRD (end stage renal disease) Code(s): N18.6 - END STAGE RENAL DISEASE (2) Gangrene Code(s): I96 - GANGRENE, NOT ELSEWHERE CLASSIFIED (3) PAD (peripheral artery disease) Code(s): I73.9 - PERIPHERAL VASCULAR DISEASE, UNSPECIFIED Assessment/Plan Current Medications Generic Name Dose Route Start Last Admin Trade Name Freq PRN Reason Stop Dose Admin Acetaminophen 650 mg 06/24/18 11:34 06/25/18 09:06 Tylenol - PO 650 mg QID PRN Administration PAIN Acetaminophen 325 mg 06/24/18 15:09 06/25/18 00:50 Tylenol - PO 325 mg Q4H PRN Administration PAIN LEVEL 4 - 6 Aspirin 81 mg 06/25/18 10:00 06/25/18 12:04 Ecotrin - PO 81 mg DAILY [facility] Administration Atorvastatin Calcium 80 mg 06/24/18 22:00 06/24/18 21:27 Lipitor - PO 80 mg HS [facility] Administration Calcitriol 0.25 mcg 06/25/18 10:00 06/25/18 12:03 Rocaltrol - PO 0.25 mcg DAILY [facility] Administration Clopidogrel Bisulfate 75 mg 06/25/18 10:00 06/25/18 12:04 Plavix - PO 75 mg DAILY [facility] Administration Fentanyl 25 mcg 06/24/18 11:41 06/24/18 12:40 Sublimaze Injection - IVPUSH 25 mcg [id number] PRN Administration PAIN-PACU ORDER X 4 DOSES ONLY Furosemide 40 mg 06/25/18 10:00 06/25/18 12:04 Lasix - PO 40 mg DAILY [facility] Administration Hydralazine HCl 100 mg 06/24/18 14:00 06/25/18 05:49 Apresoline - PO 100 mg TID [facility] Administration Piperacillin Sod/Tazobactam 50 mls @ 100 mls/hr 06/24/18 18:00 06/25/18 12:05 Sod 2.25 gm/ Dextrose IVPB 100 mls/hr Q8H-IV [facility] Administration Protocol Sodium Chloride 250 mls @ 3,000 mls/hr 06/24/18 18:09 Normal Saline - IV 06/25/18 18:09 PRN PRN Hypotension during Dialysis Insulin Aspart 1 vial 06/24/18 16:30 06/25/18 12:22 Novolog Vial Sliding Scale - SQ Not Given TIDAC [facility] Protocol Labetalol HCl 100 mg 06/24/18 22:00 06/25/18 12:03 Normodyne - PO 100 mg BID [facility] Administration Lisinopril 40 mg 06/25/18 10:00 06/25/18 12:04 Prinivil PO 40 mg DAILY [facility] Administration Morphine Sulfate 2 mg 06/24/18 15:08 06/25/18 12:03 Morphine Sulfate IVPUSH 2 mg Q4H PRN Administration PAIN LEVEL 6-10 Nifedipine 60 mg 06/24/18 22:00 06/25/18 12:04 Procardia Xl - PO 60 mg BID [facility] Administration Ondansetron HCl 4 mg 06/24/18 12:12 Zofran Injection IVPUSH Q6H PRN NAUSEA AND/OR VOMITING Oxycodone HCl 5 mg 06/24/18 15:08 06/25/18 00:49 Roxicodone - PO 5 mg Q4H PRN Administration PAIN LEVEL 4 - 6 Sevelamer Carbonate 800 mg 06/24/18 17:30 06/25/18 12:03 Renvela - PO 800 mg TIDCM [facility] Administration Laboratory Tests 06/24/18 06/24/18 06:45 06:45 Iron 31 L TIBC 175 L Iron Saturation 18 Ferritin 432.8 H Impression 1. ESRD on HD 2. anemia 3. DM 4. HTN 5. toe infection/gangrene 6. PVD 7. revision tma and amputation 1st ray left foot Plan - HD today - prbc on HD - cont epo - start iron supplements, will give colace as well - will avoid venofer as he has active infection - abx per ID - avf 3:00 400 abf - renal diet - monitor bp
--- NOTE | 2018-06-25 13:41 | PN ---
Progress Note (short form) - Note Progress Note: pod #1. Patient seen in bed. No pain. vss, Tmax 98.5 +bloody bandage left, +packing intact, -mal odor, wbc=17.4, +pseudomas on wound c&s from OR preliminary, post op day 1 Dressing removed. Packing pulled. Redressed with betadine guaze and combine dressing with yani bandage applied. Continue no bathroom privelages. CBC with diff and INR ordered. Discussed with medicine. Blood given this am. Will follow. Awaiting xray.
--- NOTE | 2018-06-25 13:56 | PN ---
Teaching Attending Note Name of Resident: Linda Agrawal ATTENDING PHYSICIAN STATEMENT I saw and evaluated the patient. I reviewed the resident's note and discussed the case with the resident. I agree with the resident's findings and plan as documented. SUBJECTIVE: Patient is comfortable with no acute distress, no nausea or vomiting. OBJECTIVE: Vital Signs Temperature 98.5 F 06/25/18 11:40 Pulse Rate 74 06/25/18 11:40 Respiratory Rate 18 06/25/18 11:40 Blood Pressure 150/67 06/25/18 11:40 O2 Sat by Pulse Oximetry (%) 94 L 06/24/18 20:15 GENERAL: The patient is awake, alert, and fully oriented, in no acute distress. HEAD: NCAT ENT: oropharynx clear without exudates, MMM NECK: supple, No JVD LUNGS: Breath sounds equal, clear to auscultation bilaterally, no wheezes HEART: Regular rate and rhythm, S1, S2, Systolic murmur at the LLSB ABDOMEN: Soft, nontender, nondistended, normoactive bowel sounds, no guarding EXTREMITIES: 2+ pulses, no edema. Sutures intact over TransMetartarsal amputation of 2 to 5 digits without any active drainage. Neurological: Cranial nerves II through XII grossly intact. CBCD WBC 17.4 K/mm3 (4.0-10.0) H 06/25/18 08:30 RBC 2.24 M/mm3 (4.00-5.60) L 06/25/18 08:30 Hgb 6.9 GM/dL (11.7-16.9) L* 06/25/18 08:30 Hct 22.0 % (35.4-49) L 06/25/18 08:30 MCV 98.3 fl (80-96) H 06/25/18 08:30 MCHC 31.2 g/dl (32.0-35.9) L 06/25/18 08:30 RDW 17.5 % (11.9-15.9) H 06/25/18 08:30 Plt Count 269 K/MM3 (134-434) 06/25/18 08:30 MPV 8.7 fl (7.5-11.1) 06/25/18 08:30 CMP Sodium 134 mmol/L (136-145) L 06/25/18 08:30 Potassium 4.2 mmol/L (3.5-5.1) 06/25/18 08:30 Chloride 94 mmol/L (98-107) L 06/25/18 08:30 Carbon Dioxide 27 mmol/L (21-32) 06/25/18 08:30 Anion Gap 13 MMOL/L (8-16) 06/25/18 08:30 BUN 36 mg/dL (7-18) H 06/25/18 08:30 Creatinine 7.2 mg/dL (0.55-1.3) H 06/25/18 08:30 Creat Clearance w eGFR 7.57 (>60) 06/25/18 08:30 Random Glucose 126 mg/dL (74-106) H 06/25/18 08:30 Calcium 9.6 mg/dL (8.5-10.1) 06/25/18 08:30 Total Bilirubin 0.7 mg/dL (0.2-1) 06/25/18 08:30 AST 31 U/L (15-37) 06/25/18 08:30 ALT 14 U/L (13-61) 06/25/18 08:30 Alkaline Phosphatase 326 U/L (45-117) H 06/25/18 08:30 Total Protein 7.0 g/dl (6.4-8.2) 06/25/18 08:30 Albumin 1.9 g/dl (3.4-5.0) L 06/25/18 08:30 Current Medications Generic Name Dose Route Start Last Admin Trade Name Freq PRN Reason Stop Dose Admin Acetaminophen 650 mg 06/24/18 11:34 06/25/18 09:06 Tylenol - PO 650 mg QID PRN Administration PAIN Acetaminophen 325 mg 06/24/18 15:09 06/25/18 00:50 Tylenol - PO 325 mg Q4H PRN Administration PAIN LEVEL 4 - 6 Aspirin 81 mg 06/25/18 10:00 06/25/18 12:04 Ecotrin - PO 81 mg DAILY [facility] Administration Atorvastatin Calcium 80 mg 06/24/18 22:00 06/24/18 21:27 Lipitor - PO 80 mg HS [facility] Administration Calcitriol 0.25 mcg 06/25/18 10:00 06/25/18 12:03 Rocaltrol - PO 0.25 mcg DAILY [facility] Administration Clopidogrel Bisulfate 75 mg 06/25/18 10:00 06/25/18 12:04 Plavix - PO 75 mg DAILY [facility] Administration Docusate Sodium 100 mg 06/25/18 14:00 Colace - PO TID [facility] Fentanyl 25 mcg 06/24/18 11:41 06/24/18 12:40 Sublimaze Injection - IVPUSH 25 mcg [id number] PRN Administration PAIN-PACU ORDER X 4 DOSES ONLY Ferrous Sulfate 325 mg 06/25/18 13:15 Feosol - PO BID [facility] Furosemide 40 mg 06/25/18 10:00 06/25/18 12:04 Lasix - PO 40 mg DAILY [facility] Administration Hydralazine HCl 100 mg 06/24/18 14:00 06/25/18 05:49 Apresoline - PO 100 mg TID [facility] Administration Piperacillin Sod/Tazobactam 50 mls @ 100 mls/hr 06/24/18 18:00 06/25/18 12:05 Sod 2.25 gm/ Dextrose IVPB 100 mls/hr Q8H-IV [facility] Administration Protocol Sodium Chloride 250 mls @ 3,000 mls/hr 06/24/18 18:09 Normal Saline - IV 06/25/18 18:09 PRN PRN Hypotension during Dialysis Insulin Aspart 1 vial 06/24/18 16:30 06/25/18 12:22 Novolog Vial Sliding Scale - SQ Not Given TIDAC [facility] Protocol Labetalol HCl 100 mg 06/24/18 22:00 06/25/18 12:03 Normodyne - PO 100 mg BID [facility] Administration Lisinopril 40 mg 06/25/18 10:00 06/25/18 12:04 Prinivil PO 40 mg DAILY [facility] Administration Morphine Sulfate 2 mg 06/24/18 15:08 06/25/18 12:03 Morphine Sulfate IVPUSH 2 mg Q4H PRN Administration PAIN LEVEL 6-10 Nifedipine 60 mg 06/24/18 22:00 06/25/18 12:04 Procardia Xl - PO 60 mg BID [facility] Administration Ondansetron HCl 4 mg 06/24/18 12:12 Zofran Injection IVPUSH Q6H PRN NAUSEA AND/OR VOMITING Oxycodone HCl 5 mg 06/24/18 15:08 06/25/18 00:49 Roxicodone - PO 5 mg Q4H PRN Administration PAIN LEVEL 4 - 6 Sevelamer Carbonate 800 mg 06/24/18 17:30 06/25/18 12:03 Renvela - PO 800 mg TIDCM [facility] Administration Home Medications Medication Instructions Recorded Sevelamer HCl [Renagel] 800 mg PO TIDCM 05/16/18 Aspirin Coated [Ecotrin -] 81 mg PO DAILY #30 tablet.ec 05/27/18 Atorvastatin Ca [Lipitor] 20 mg PO HS #30 tablet 05/27/18 Calcitriol [Calcitriol -] 0.25 mcg PO DAILY #30 capsule 05/27/18 Clopidogrel Bisulfate [Plavix -] 75 mg PO DAILY #30 tablet 05/27/18 Furosemide [Lasix -] 40 mg PO DAILY #30 tablet 05/27/18 Hydralazine HCl 100 mg PO TID #90 tablet 05/27/18 Nifedipine ER [Procardia XL -] 60 mg PO BID #60 tab.er.24 05/27/18 Acetaminophen [Tylenol] 650 mg PO QID PRN 06/05/18 ASSESSMENT AND PLAN: Patient is a 68 y/o man with h/o CAD, recent RI, PVD, ESRD on HD, HTN, HLP, Hep B , DM, and recent admission for L 4th toe gangrene and OM, s/p angiogram, atherectomy and angioplasty, who presented with increased pain in foot and change in L 3rd toe color. He was found to have a gangrenous 3rd and 4th toes. # Gangrenous 3rd and 4th L toes with OM. S/P revision TMA nad amputation of 1st toe today. on zosyn IV, continue pain control morphine and oxy # H/o HTN: uncontrolled continue his Hydralazine, Nifedipine, and lisinoprol. labetalol 100 BID continue # H/O ESRD: HD per schedule. cont lasix ,sevelamir # PVD: cont statin, ASA and plavix DVT Px: SCD
[2018-06-25] MEDS: FERROUS SO4 325 MG TABLET (FP) PO SCH ×2 (14:38→21:41)
[2018-06-25] MEDS: DOCUSATE SODIUM 100 MG CAPSULE (FP) PO SCH ×2 (14:39→21:41)
[2018-06-25 15:41] LABS: BASO % 0.4 % (0-2.0); HEMATOCRIT 25.9 % (35.4-49); HEMOGLOBIN 8.5 GM/dL (11.7-16.9); LYMPH % 3.8 % (8-40); MCH 30.9 pg (25.7-33.7); MCHC 32.9 g/dl (32.0-35.9); MEAN CELL VOLUME 93.8 fl (80-96); MEAN PLT VOLUME 8.3 fl (7.5-11.1); MONO % 8.6 % (3.8-10.2); NEUT % 86.2 % (42.8-82.8); PLATELET COUNT 274 K/MM3 (134-434); RBC 2.76 M/mm3 (4.00-5.60); WHITE BLOOD COUNT 18.4 K/mm3 (4.0-10.0)
[2018-06-25 15:54] LABS: INR 1.16 (0.83-1.09); PROTHROMBIN TIME (PATIENT) 13.7 SEC (9.7-13.0)
[2018-06-25] MEDS ORDERED: EPOETIN ALFA 2,000 UNIT/1 ML VIAL IVPUSH ONE (18:09)
[2018-06-25] MEDS: ATORVASTATIN CA 80 MG TABLET (FP) PO SCH (21:41)
[2018-06-26] MEDS ORDERED: PIPERACILLIN/TAZOBACTAM 2.25 GM VIAL IVPB ONE ×2 (01:32→11:57)
[2018-06-26] MEDS ORDERED: DEXTROSE 5%-WATER - 50 ML IVPB ONE ×2 (01:33→11:58)
[2018-06-26] MEDS: ACETAMINOPHEN 325 MG TABLET (FP) PO PRN ×3 (01:36→22:13)
[2018-06-26] MEDS: PIPERACILLIN/TAZOB 2.25 GM 2.25 GM in DEXTROSE 5%-WATER - 50 ML IVPB SCH ×3 (01:36→19:49)
[2018-06-26] MEDS: DOCUSATE SODIUM 100 MG CAPSULE (FP) PO SCH ×3 (06:22→21:18)
[2018-06-26] MEDS: hydrALAZINE HCL 50 MG TABLET (FP) PO SCH ×3 (06:22→21:17)
[2018-06-26] MEDS: INSULIN SLIDING SCALE (NOVOLOG) 1 VIAL SQ SCH ×3 (06:22→16:44)
[2018-06-26 08:01] LABS: BASO % 0.4 % (0-2.0); EOS % 0.6 % (0-4.5); HEMATOCRIT 22.6 % (35.4-49); HEMOGLOBIN 7.2 GM/dL (11.7-16.9); LYMPH % 6.7 % (8-40); MCH 30.2 pg (25.7-33.7); MCHC 32.1 g/dl (32.0-35.9); MEAN CELL VOLUME 94.2 fl (80-96); MEAN PLT VOLUME 8.3 fl (7.5-11.1); MONO % 9.4 % (3.8-10.2); NEUT % 82.9 % (42.8-82.8); PLATELET COUNT 253 K/MM3 (134-434); RDW 19.4 % (11.9-15.9); WHITE BLOOD COUNT 17.5 K/mm3 (4.0-10.0)
[2018-06-26 08:58] LABS: ALK PHOS 365 U/L (45-117); ANION GAP 2 MMOL/L (8-16); BILIRUBIN,TOTAL 0.9 mg/dL (0.2-1); BLOOD UREA NITROGEN 20 mg/dL (7-18); CALCIUM 10.1 mg/dL (8.5-10.1); CHLORIDE 101 mmol/L (98-107); CO2 30 mmol/L (21-32); CREATININE 4.9 mg/dL (0.55-1.3); GLUCOSE,RANDOM 107 mg/dL (74-106); MAGNESIUM 2.1 mg/dL (1.8-2.4); PHOSPHOROUS 3.8 mg/dL (2.5-4.9); POTASSIUM 3.4 mmol/L (3.5-5.1); SGOT/AST 32 U/L (15-37); SGPT/ALT 15 U/L (13-61); SODIUM 133 mmol/L (136-145)
[2018-06-26] MEDS: SEVELAMER CARBONATE 800 MG TAB (FP) PO SCH ×3 (09:01→16:49)
[2018-06-26] MEDS ORDERED: INSULIN (NOVOLOG) ASPART 100 UNITS/ML 10ML VIAL ONE (11:56)
[2018-06-26] MEDS ORDERED: PT OWN MED DRAWER 7, Y5N ONE (11:57)
[2018-06-26] MEDS: FERROUS SO4 325 MG TABLET (FP) PO SCH ×2 (12:00→21:18)
[2018-06-26] MEDS: LABETALOL HCL 100 MG TABLET (FP) PO SCH ×2 (12:00→21:18)
[2018-06-26] MEDS: FUROSEMIDE 40 MG TABLET (FP) PO SCH (12:01)
[2018-06-26] MEDS: CLOPIDOGREL BISULFATE 75 MG TABLET (FP) PO SCH (12:01)
[2018-06-26] MEDS: LISINOPRIL 20 MG TABLET (FP) PO SCH (12:01)
[2018-06-26] MEDS: CALCITRIOL 0.25 MCG CAPSULE (FP) PO SCH (12:01)
[2018-06-26] MEDS: ASPIRIN COATED 81 MG TABLET.EC PO SCH (12:01)
[2018-06-26] MEDS: NIFEdipine E.R 60 MG TABLET (UD) PO SCH ×2 (12:02→21:18)
[2018-06-26] MEDS: oxyCODONE HCL 5 MG TABLET PO PRN (14:39)
--- NOTE | 2018-06-26 16:41 | PN ---
Physical Exam: SUBJECTIVE: Patient seen and examined this morning. Temp overnight reached 101.7. Patient did not tolerate much dinner. Denies walking on his new dressing. Received 1 unit pRBC's during dialysis yesterday. Denies any fevers, chills, chest pain, SOB, nausea, vomiting. OBJECTIVE: Vital Signs Period Temp Pulse Resp BP Sys/Cole Pulse Ox Last 24 Hr 98.1 F-101.7 F 67-77 19-21 137-164/55-69 GENERAL: A&Ox3, NAD HEAD: NCAT ENT: Oropharynx clear without exudates, MMM NECK: supple, No JVD LUNGS: Breath sounds equal, clear to auscultation bilaterally, no wheezes HEART: Regular rate and rhythm, S1, S2, Systolic murmur at the LLSB ABDOMEN: Soft, nontender, nondistended, normoactive bowel sounds, no guarding EXTREMITIES: 2+ pulses, no edema. Dried, clean and intact Left foot external dressing. Gross lower extremity sensation above the bandage site intact b/l. Dorsiflexion and Plantarflexion 4/5 b/l. Unable to test pulses as Left foot is completely wrapped in bandage. NEUROLOGICAL: Cranial nerves II through XII grossly intact. Normal speech, gait not observed. Laboratory Results - last 24 hr 06/25/18 06/25/18 06/25/18 08:30 14:30 16:34 WBC RBC Hgb Hct MCV MCH MCHC RDW Plt Count MPV Absolute Neuts (auto) Neutrophils % Lymphocytes % Monocytes % Eosinophils % Basophils % Nucleated RBC % PT with INR 13.70 H INR 1.16 H Sodium Potassium Chloride Carbon Dioxide Anion Gap BUN Creatinine Creat Clearance w eGFR POC Glucometer 129 Random Glucose Calcium Phosphorus Magnesium Total Bilirubin AST ALT Alkaline Phosphatase Total Protein Albumin Blood Type O POSITIVE Antibody Screen Negative Crossmatch See Detail 06/26/18 06/26/18 06/26/18 06:21 07:00 07:00 WBC 17.5 H RBC 2.40 L Hgb 7.2 L Hct 22.6 L MCV 94.2 MCH 30.2 MCHC 32.1 RDW 19.4 H Plt Count 253 MPV 8.3 Absolute Neuts (auto) 14.5 H Neutrophils % 82.9 H Lymphocytes % 6.7 L D Monocytes % 9.4 Eosinophils % 0.6 Basophils % 0.4 Nucleated RBC % 0 PT with INR INR Sodium 133 L Potassium 3.4 L Chloride 101 Carbon Dioxide 30 Anion Gap 2 L BUN 20 H Creatinine 4.9 H Creat Clearance w eGFR 11.80 POC Glucometer 122 Random Glucose 107 H Calcium 10.1 Phosphorus 3.8 Magnesium 2.1 Total Bilirubin 0.9 AST 32 ALT 15 Alkaline Phosphatase 365 H Total Protein 7.0 Albumin 2.0 L Blood Type Antibody Screen Crossmatch Microbiology 06/24/18 10:44 Foot - Lt Transmetatarsal Amp Site Gram Stain - Final 06/24/18 10:44 Foot - Lt Transmetatarsal Amp Site Wound Culture - Preliminary Presumptive Ps Aeruginosa Beta Hemolytic Strep 06/24/18 10:56 Foot - Lt Transmetatarsal Amp Site Gram Stain - Final 06/24/18 10:56 Foot - Lt Transmetatarsal Amp Site Wound Culture - Preliminary Non Lactose Fermenting Gnb 06/05/18 11:10 Blood - Peripheral Venous Blood Culture - Final NO GROWTH AFTER 5 DAYS INCUBATION 06/05/18 11:10 Blood - Peripheral Venous Blood Culture - Final NO GROWTH AFTER 5 DAYS INCUBATION Active Medications Acetaminophen (Tylenol -) 650 mg PO QID PRN PRN Reason: PAIN Last Admin: 06/26/18 01:36 Dose: 650 mg Acetaminophen (Tylenol -) 325 mg PO Q4H PRN PRN Reason: PAIN LEVEL 4 - 6 Last Admin: 06/25/18 00:50 Dose: 325 mg Aspirin (Ecotrin -) 81 mg PO DAILY [facility] Last Admin: 06/26/18 12:01 Dose: 81 mg Atorvastatin Calcium (Lipitor -) 80 mg PO HS [facility] Last Admin: 06/25/18 21:41 Dose: 80 mg Calcitriol (Rocaltrol -) 0.25 mcg PO DAILY [facility] Last Admin: 06/26/18 12:01 Dose: 0.25 mcg Clopidogrel Bisulfate (Plavix -) 75 mg PO DAILY [facility] Last Admin: 06/26/18 12:01 Dose: 75 mg Docusate Sodium (Colace -) 100 mg PO TID [facility] Last Admin: 06/26/18 14:39 Dose: 100 mg Ferrous Sulfate (Feosol -) 325 mg PO BID [facility] Last Admin: 06/26/18 12:00 Dose: 325 mg Furosemide (Lasix -) 40 mg PO DAILY [facility] Last Admin: 06/26/18 12:01 Dose: 40 mg Hydralazine HCl (Apresoline -) 100 mg PO TID [facility] Last Admin: 06/26/18 14:39 Dose: 100 mg Piperacillin Sod/Tazobactam (Sod 2.25 gm/ Dextrose) 50 mls @ 100 mls/hr IVPB Q8H-IV [facility]; Protocol Last Admin: 06/26/18 12:02 Dose: 100 mls/hr Insulin Aspart (Novolog Vial Sliding Scale -) 1 vial SQ TIDAC [facility]; Protocol Last Admin: 06/26/18 12:03 Dose: 2 units Labetalol HCl (Normodyne -) 100 mg PO BID [facility] Last Admin: 06/26/18 12:00 Dose: 100 mg Lisinopril (Prinivil) 40 mg PO DAILY [facility] Last Admin: 06/26/18 12:01 Dose: 40 mg Morphine Sulfate (Morphine Sulfate) 2 mg IVPUSH Q4H PRN PRN Reason: PAIN LEVEL 6-10 Last Admin: 06/25/18 12:03 Dose: 2 mg Nifedipine (Procardia Xl -) 60 mg PO BID [facility] Last Admin: 06/26/18 12:02 Dose: 60 mg Ondansetron HCl (Zofran Injection) 4 mg IVPUSH Q6H PRN PRN Reason: NAUSEA AND/OR VOMITING Oxycodone HCl (Roxicodone -) 5 mg PO Q4H PRN PRN Reason: PAIN LEVEL 4 - 6 Last Admin: 06/26/18 14:39 Dose: 5 mg Sevelamer Carbonate (Renvela -) 800 mg PO TIDCM [facility] Last Admin: 06/26/18 12:03 Dose: 800 mg IMAGING: EKG: NORMAL SINUS RHYTHM, NONSPECIFIC T WAVE ABNORMALITY EKG done (06/10) revealed new T-wave inversions in lateral leads, Left Foot XRay: No fracture or osteomyelitis. CT ANGIOGRAM OF THE ABDOMEN AND PELVIS WITH BILATERAL LOWER EXTREMITY RUNOFFS: Predominant distal arterial disease suggestive of diabetic and/or nephrogenic vasculopathy. Predominant disease in the distal left popliteal and infrapopliteal arteries demonstrating interval improvement in flow and mild improvement in the degree of stenosis described on the prior exam, as described above. Essential flow to the foot is provided by the MIGUELITO. Peroneal artery is occluded and [employer]GRAM PRO[employer]ST demonstrate short segmental occlusions with reconstitution of flow in the plantar artery which demonstrate robust flow. Flow is seen in the digital arteries. Predominant right infrapopliteal disease, as described above, grossly unchanged since the prior exam. Subcutaneous edema with mesenteric stranding possibly due to third spacing/anasarca. Under distended urinary bladder with suggestion of wall thickening. Correlate clinically for cystitis. ASSESSMENT/PLAN: 68 y/o M w/ PMHx CAD, [place], PVD, ESRD on HD (MWF), HTN, admitted for gangrene/ osteomyelitis of the left foot on 05/16, now presents with worsening pain and discoloration of the left 4th toe and blackening and pain of the 3rd toe 1. Gangrene of L 3rd and 4th toes with Osteomyelitis -POD#2 S/P revision tma (Left toes 2-4) and amputation 1st ray left foot (06/24) ; s/p L TMA sparing great toe (06/11/18) -Continue Zosyn course (Started 06/11) -Pain control via Oxycodone, Morphine -Podiatry (Dr. Garcia) consulted: Amputation on 06/11. Revised TMA on 06/24. -CTA noted as above -Previous Pathology report s/p TMA on 06/11 showed bone with acute osteomyelitis -Dr. Paiz: Angiogram performed. No areas of stenosis. 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 Pt would benefit from HBO. Cleared from a vascular standpoint for podiatry surgery -ID (Dr. Reyez) consulted: Vanc/Zosyn (Started on 06/05), Outpatient treatment with Vancomycin 500mg at each HD x 4weeks, Levaquin 250mg po q48h x 4 weeks -Pt with post op surgical shoe -EKG done (06/10) revealed new T-wave inversions in lateral leads, case discussed with Dr. Wilkins--Pt is cleared to undergo LE surgery -Foot XRay pending read 2. Anemia -S/P 2 units pRBC's as Hgb reached 6.9 (06/25) -Likely blood loss anemia due to surgery -will continue to monitor, possibly giving 1 unit pRBCs during dialysis 3. ESRD on HD (MWF) -Nephro (Dr. Flaherty) consulted -Vascular evaluated fistula -Cont home Lasix, Sevelamer -Pt requesting blood draws with dialysis 4. CAD/PVD -Cont ASA/Plavix 5. HTN -Cont home dose nifedipine, hydralazine, lasix -Continue Lisinopril 40mg Daily -Continue Labetalol 100 mg BID 6. FEN -PO Fluids -Continue to monitor lytes -Diabetic/Renal diet 7. PPx -no heparin at this time per vascular Dispo: Will need PT eval prior to D/c Visit type - Emergency Visit Emergency Visit: Yes ED Registration Date: 06/05/18 Care time: The patient presented to the Emergency Department on the above date and was hospitalized for further evaluation of their emergent condition. - New Patient This patient is new to me today: No - Critical Care Critical Care patient: No
[2018-06-26] MEDS ORDERED: SODIUM CHLORIDE 250 ML IV PRN (16:46)
--- NOTE | 2018-06-26 16:46 | PN ---
Progress Note, Physician History of Present Illness: Pt seen and examined at bedside. He is awake and alert. He denies shortness of breath or chest pain. - Current Medication List Current Medications: Active Medications Acetaminophen (Tylenol -) 650 mg PO QID PRN PRN Reason: PAIN Last Admin: 06/26/18 01:36 Dose: 650 mg Acetaminophen (Tylenol -) 325 mg PO Q4H PRN PRN Reason: PAIN LEVEL 4 - 6 Last Admin: 06/25/18 00:50 Dose: 325 mg Aspirin (Ecotrin -) 81 mg PO DAILY [facility] Last Admin: 06/26/18 12:01 Dose: 81 mg Atorvastatin Calcium (Lipitor -) 80 mg PO HS [facility] Last Admin: 06/25/18 21:41 Dose: 80 mg Calcitriol (Rocaltrol -) 0.25 mcg PO DAILY [facility] Last Admin: 06/26/18 12:01 Dose: 0.25 mcg Clopidogrel Bisulfate (Plavix -) 75 mg PO DAILY [facility] Last Admin: 06/26/18 12:01 Dose: 75 mg Docusate Sodium (Colace -) 100 mg PO TID [facility] Last Admin: 06/26/18 14:39 Dose: 100 mg Ferrous Sulfate (Feosol -) 325 mg PO BID [facility] Last Admin: 06/26/18 12:00 Dose: 325 mg Furosemide (Lasix -) 40 mg PO DAILY [facility] Last Admin: 06/26/18 12:01 Dose: 40 mg Hydralazine HCl (Apresoline -) 100 mg PO TID [facility] Last Admin: 06/26/18 14:39 Dose: 100 mg Piperacillin Sod/Tazobactam (Sod 2.25 gm/ Dextrose) 50 mls @ 100 mls/hr IVPB Q8H-IV [facility]; Protocol Last Admin: 06/26/18 12:02 Dose: 100 mls/hr Insulin Aspart (Novolog Vial Sliding Scale -) 1 vial SQ TIDAC [facility]; Protocol Last Admin: 06/26/18 12:03 Dose: 2 units Labetalol HCl (Normodyne -) 100 mg PO BID [facility] Last Admin: 06/26/18 12:00 Dose: 100 mg Lisinopril (Prinivil) 40 mg PO DAILY [facility] Last Admin: 06/26/18 12:01 Dose: 40 mg Morphine Sulfate (Morphine Sulfate) 2 mg IVPUSH Q4H PRN PRN Reason: PAIN LEVEL 6-10 Last Admin: 06/25/18 12:03 Dose: 2 mg Nifedipine (Procardia Xl -) 60 mg PO BID [facility] Last Admin: 06/26/18 12:02 Dose: 60 mg Ondansetron HCl (Zofran Injection) 4 mg IVPUSH Q6H PRN PRN Reason: NAUSEA AND/OR VOMITING Oxycodone HCl (Roxicodone -) 5 mg PO Q4H PRN PRN Reason: PAIN LEVEL 4 - 6 Last Admin: 06/26/18 14:39 Dose: 5 mg Sevelamer Carbonate (Renvela -) 800 mg PO TIDCM [facility] Last Admin: 06/26/18 12:03 Dose: 800 mg - Objective Vital Signs: Vital Signs Temperature 99.0 F 06/26/18 14:00 Pulse Rate 77 06/26/18 14:00 Respiratory Rate 20 06/26/18 14:00 Blood Pressure 164/69 06/26/18 14:00 O2 Sat by Pulse Oximetry (%) 94 L 06/24/18 20:15 Constitutional: Yes: Calm Eyes: Yes: Conjunctiva Clear HENT: Yes: Atraumatic Neck: Yes: Supple Cardiovascular: Yes: S1, S2 Respiratory: Yes: CTA Bilaterally Gastrointestinal: Yes: Soft Edema: No Wound/Incision: Yes: Dressing Dry and Intact Neurological: Yes: Oriented Psychiatric: Yes: Oriented Labs: CBC, BMP 06/26/18 07:00 06/26/18 07:00 INR, PTT INR 1.16 (0.83-1.09) H 06/25/18 14:30 Problem List - Problems (1) ESRD (end stage renal disease) Code(s): N18.6 - END STAGE RENAL DISEASE (2) Gangrene Code(s): I96 - GANGRENE, NOT ELSEWHERE CLASSIFIED (3) PAD (peripheral artery disease) Code(s): I73.9 - PERIPHERAL VASCULAR DISEASE, UNSPECIFIED Assessment/Plan Current Medications Generic Name Dose Route Start Last Admin Trade Name Freq PRN Reason Stop Dose Admin Acetaminophen 650 mg 06/24/18 11:34 06/26/18 01:36 Tylenol - PO 650 mg QID PRN Administration PAIN Acetaminophen 325 mg 06/24/18 15:09 06/25/18 00:50 Tylenol - PO 325 mg Q4H PRN Administration PAIN LEVEL 4 - 6 Aspirin 81 mg 06/25/18 10:00 06/26/18 12:01 Ecotrin - PO 81 mg DAILY [facility] Administration Atorvastatin Calcium 80 mg 06/24/18 22:00 06/25/18 21:41 Lipitor - PO 80 mg HS [facility] Administration Calcitriol 0.25 mcg 06/25/18 10:00 06/26/18 12:01 Rocaltrol - PO 0.25 mcg DAILY [facility] Administration Clopidogrel Bisulfate 75 mg 06/25/18 10:00 06/26/18 12:01 Plavix - PO 75 mg DAILY [facility] Administration Docusate Sodium 100 mg 06/25/18 14:00 06/26/18 14:39 Colace - PO 100 mg TID [facility] Administration Ferrous Sulfate 325 mg 06/25/18 13:15 06/26/18 12:00 Feosol - PO 325 mg BID [facility] Administration Furosemide 40 mg 06/25/18 10:00 06/26/18 12:01 Lasix - PO 40 mg DAILY [facility] Administration Hydralazine HCl 100 mg 06/24/18 14:00 06/26/18 14:39 Apresoline - PO 100 mg TID [facility] Administration Piperacillin Sod/Tazobactam 50 mls @ 100 mls/hr 06/24/18 18:00 06/26/18 12:02 Sod 2.25 gm/ Dextrose IVPB 100 mls/hr Q8H-IV [facility] Administration Protocol Insulin Aspart 1 vial 06/24/18 16:30 06/26/18 12:03 Novolog Vial Sliding Scale - SQ 2 units TIDAC [facility] Administration Protocol Labetalol HCl 100 mg 06/24/18 22:00 06/26/18 12:00 Normodyne - PO 100 mg BID [facility] Administration Lisinopril 40 mg 06/25/18 10:00 06/26/18 12:01 Prinivil PO 40 mg DAILY [facility] Administration Morphine Sulfate 2 mg 06/24/18 15:08 06/25/18 12:03 Morphine Sulfate IVPUSH 2 mg Q4H PRN Administration PAIN LEVEL 6-10 Nifedipine 60 mg 06/24/18 22:00 06/26/18 12:02 Procardia Xl - PO 60 mg BID [facility] Administration Ondansetron HCl 4 mg 06/24/18 12:12 Zofran Injection IVPUSH Q6H PRN NAUSEA AND/OR VOMITING Oxycodone HCl 5 mg 06/24/18 15:08 06/26/18 14:39 Roxicodone - PO 5 mg Q4H PRN Administration PAIN LEVEL 4 - 6 Sevelamer Carbonate 800 mg 06/24/18 17:30 06/26/18 12:03 Renvela - PO 800 mg TIDCM [facility] Administration Impression 1. ESRD on HD 2. anemia 3. DM 4. HTN 5. toe infection/gangrene 6. PVD 7. revision tma and amputation 1st ray left foot Plan - HD in am - cont iron supplements PO - prbc as needed - monitor hg - discussed with medical team - cont epogen - abx per ID - avf 3:00 400 abf - renal diet - monitor bp
[2018-06-26] MEDS: ATORVASTATIN CA 80 MG TABLET (FP) PO SCH (21:17)
--- NOTE | 2018-06-26 21:23 | PN ---
Progress Note (short form) - Note Progress Note: pod #2. seen at around 3pm today. Patient seen in bed. No pain. vss, Tmax 98.7 +dry bandage, -mal odor, wbc=17.5, +pseudomas, +beta hemolytic strep, non lactose fermenting gnb on wound c&s from OR post op day 2 normal post op Dressing removed. Redressed with betadine guaze and combine dressing with yani bandage applied. Continue no bathroom privelages. Labs reviewed. Discussed with medicine. Discussed with vascular. Will follow. xray reviewed. cbc with diff in am.
--- NOTE | 2018-06-26 21:24 | PN ---
Teaching Attending Note Name of Resident: Linda Agrawal ATTENDING PHYSICIAN STATEMENT I saw and evaluated the patient. I reviewed the resident's note and discussed the case with the resident. I agree with the resident's findings and plan as documented. SUBJECTIVE: Patient is comfortable with no acute distress. OBJECTIVE: Vital Signs Temperature 98.7 F 06/26/18 18:00 Pulse Rate 80 06/26/18 18:00 Respiratory Rate 20 06/26/18 18:00 Blood Pressure 157/72 06/26/18 18:00 O2 Sat by Pulse Oximetry (%) 94 L 06/24/18 20:15 GENERAL: The patient is awake, alert, and fully oriented, in no acute distress. HEAD: NCAT ENT: oropharynx clear without exudates, MMM NECK: supple, No JVD LUNGS: Breath sounds equal, clear to auscultation bilaterally, no wheezes HEART: Regular rate and rhythm, S1, S2, Systolic murmur at the LLSB ABDOMEN: Soft, nontender, nondistended, normoactive bowel sounds, no guarding EXTREMITIES: 2+ pulses, no edema. Clean LLE external dressing. TransMetartarsal amputation of 2 to 5 digits without any active drainage. NEUROLOGICAL: Cranial nerves II through XII grossly intact. Normal speech, gait not observed. CBCD WBC 17.5 K/mm3 (4.0-10.0) H 06/26/18 07:00 RBC 2.40 M/mm3 (4.00-5.60) L 06/26/18 07:00 Hgb 7.2 GM/dL (11.7-16.9) L 06/26/18 07:00 Hct 22.6 % (35.4-49) L 06/26/18 07:00 MCV 94.2 fl (80-96) 06/26/18 07:00 MCHC 32.1 g/dl (32.0-35.9) 06/26/18 07:00 RDW 19.4 % (11.9-15.9) H 06/26/18 07:00 Plt Count 253 K/MM3 (134-434) 06/26/18 07:00 MPV 8.3 fl (7.5-11.1) 06/26/18 07:00 CMP Sodium 133 mmol/L (136-145) L 06/26/18 07:00 Potassium 3.4 mmol/L (3.5-5.1) L 06/26/18 07:00 Chloride 101 mmol/L (98-107) 06/26/18 07:00 Carbon Dioxide 30 mmol/L (21-32) 06/26/18 07:00 Anion Gap 2 MMOL/L (8-16) L 06/26/18 07:00 BUN 20 mg/dL (7-18) H 06/26/18 07:00 Creatinine 4.9 mg/dL (0.55-1.3) H 06/26/18 07:00 Creat Clearance w eGFR 11.80 (>60) 06/26/18 07:00 Random Glucose 107 mg/dL (74-106) H 06/26/18 07:00 Calcium 10.1 mg/dL (8.5-10.1) 06/26/18 07:00 Total Bilirubin 0.9 mg/dL (0.2-1) 06/26/18 07:00 AST 32 U/L (15-37) 06/26/18 07:00 ALT 15 U/L (13-61) 06/26/18 07:00 Alkaline Phosphatase 365 U/L (45-117) H 06/26/18 07:00 Total Protein 7.0 g/dl (6.4-8.2) 06/26/18 07:00 Albumin 2.0 g/dl (3.4-5.0) L 06/26/18 07:00 Current Medications Generic Name Dose Route Start Last Admin Trade Name Freq PRN Reason Stop Dose Admin Acetaminophen 650 mg 06/24/18 11:34 06/26/18 17:26 Tylenol - PO 650 mg QID PRN Administration PAIN Acetaminophen 325 mg 06/24/18 15:09 06/25/18 00:50 Tylenol - PO 325 mg Q4H PRN Administration PAIN LEVEL 4 - 6 Aspirin 81 mg 06/25/18 10:00 06/26/18 12:01 Ecotrin - PO 81 mg DAILY [facility] Administration Atorvastatin Calcium 80 mg 06/24/18 22:00 06/26/18 21:17 Lipitor - PO 80 mg HS [facility] Administration Calcitriol 0.25 mcg 06/25/18 10:00 06/26/18 12:01 Rocaltrol - PO 0.25 mcg DAILY [facility] Administration Clopidogrel Bisulfate 75 mg 06/25/18 10:00 06/26/18 12:01 Plavix - PO 75 mg DAILY [facility] Administration Docusate Sodium 100 mg 06/25/18 14:00 06/26/18 21:18 Colace - PO 100 mg TID [facility] Administration Epoetin Thomas 12,000 unit 06/27/18 16:46 Epogen - IVPUSH 06/27/18 16:47 ONCE ONE Ferrous Sulfate 325 mg 06/25/18 13:15 06/26/18 21:18 Feosol - PO 325 mg BID [facility] Administration Furosemide 40 mg 06/25/18 10:00 06/26/18 12:01 Lasix - PO 40 mg DAILY [facility] Administration Hydralazine HCl 100 mg 06/24/18 14:00 06/26/18 21:17 Apresoline - PO 100 mg TID [facility] Administration Piperacillin Sod/Tazobactam 50 mls @ 100 mls/hr 06/24/18 18:00 06/26/18 19:49 Sod 2.25 gm/ Dextrose IVPB Not Given Q8H-IV [facility] Protocol Sodium Chloride 250 mls @ 3,000 mls/hr 06/26/18 16:46 Normal Saline - IV 06/27/18 16:47 PRN PRN Hypotension during Dialysis Insulin Aspart 1 vial 06/24/18 16:30 06/26/18 16:44 Novolog Vial Sliding Scale - SQ Not Given TIDAC [facility] Protocol Labetalol HCl 100 mg 06/24/18 22:00 06/26/18 21:18 Normodyne - PO 100 mg BID [facility] Administration Lisinopril 40 mg 06/25/18 10:00 06/26/18 12:01 Prinivil PO 40 mg DAILY [facility] Administration Morphine Sulfate 2 mg 06/24/18 15:08 06/25/18 12:03 Morphine Sulfate IVPUSH 2 mg Q4H PRN Administration PAIN LEVEL 6-10 Nifedipine 60 mg 06/24/18 22:00 06/26/18 21:18 Procardia Xl - PO 60 mg BID [facility] Administration Ondansetron HCl 4 mg 06/24/18 12:12 Zofran Injection IVPUSH Q6H PRN NAUSEA AND/OR VOMITING Oxycodone HCl 5 mg 06/24/18 15:08 06/26/18 14:39 Roxicodone - PO 5 mg Q4H PRN Administration PAIN LEVEL 4 - 6 Sevelamer Carbonate 800 mg 06/24/18 17:30 06/26/18 16:49 Renvela - PO 800 mg TIDCM [facility] Administration Home Medications Medication Instructions Recorded Sevelamer HCl [Renagel] 800 mg PO TIDCM 05/16/18 Aspirin Coated [Ecotrin -] 81 mg PO DAILY #30 tablet.ec 05/27/18 Atorvastatin Ca [Lipitor] 20 mg PO HS #30 tablet 05/27/18 Calcitriol [Calcitriol -] 0.25 mcg PO DAILY #30 capsule 05/27/18 Clopidogrel Bisulfate [Plavix -] 75 mg PO DAILY #30 tablet 05/27/18 Furosemide [Lasix -] 40 mg PO DAILY #30 tablet 05/27/18 Hydralazine HCl 100 mg PO TID #90 tablet 05/27/18 Nifedipine ER [Procardia XL -] 60 mg PO BID #60 tab.er.24 05/27/18 Acetaminophen [Tylenol] 650 mg PO QID PRN 06/05/18 Microbiology 06/24/18 10:56 Foot - Lt Transmetatarsal Amp Site Gram Stain - Final 06/24/18 10:56 Foot - Lt Transmetatarsal Amp Site Wound Culture - Final Stenotrophomon.(X.)Maltophilia 06/24/18 10:44 Foot - Lt Transmetatarsal Amp Site Gram Stain - Final 06/24/18 10:44 Foot - Lt Transmetatarsal Amp Site Wound Culture - Preliminary Aeromonas Hydrophilia Group Gram Negative Néstor 06/05/18 11:10 Blood - Peripheral Venous Blood Culture - Final NO GROWTH AFTER 5 DAYS INCUBATION 06/05/18 11:10 Blood - Peripheral Venous Blood Culture - Final NO GROWTH AFTER 5 DAYS INCUBATION ASSESSMENT AND PLAN: Patient is a 68 y/o man with h/o CAD, recent [place], PVD, ESRD on HD, HTN, HLP, Hep B , DM, and recent admission for L 4th toe gangrene and OM, s/p angiogram, atherectomy and angioplasty, who presented with increased pain in foot and change in L 3rd toe color. He was found to have a gangrenous 3rd and 4th toes. # Gangrenous 3rd and 4th L toes with OM. S/P revision TMA nad amputaiton of 1st toe. On zosyn IV and on Vancomycin 500mg at each HD. waiting for pathology report. will ask to see the patient. # H/o HTN: uncontrolled continue his HZN, Nifedipine, and lisinoprol. labetalol 100 BID . # H/O ESRD: HD per schedule. cont lasix ,sevelamir # PVD: cont statin, ASA and plavix
[2018-06-27] MEDS ORDERED: DEXTROSE 5%-WATER - 50 ML IVPB ONE (01:45)
[2018-06-27] MEDS ORDERED: PIPERACILLIN/TAZOBACTAM 2.25 GM VIAL IVPB ONE ×2 (01:45→09:08)
[2018-06-27] MEDS: PIPERACILLIN/TAZOB 2.25 GM 2.25 GM in DEXTROSE 5%-WATER - 50 ML IVPB SCH ×2 (02:05→09:15)
[2018-06-27] MEDS: ACETAMINOPHEN 325 MG TABLET (FP) PO PRN ×3 (04:22→17:00)
[2018-06-27] MEDS: hydrALAZINE HCL 50 MG TABLET (FP) PO SCH ×4 (06:32→21:42)
[2018-06-27] MEDS: DOCUSATE SODIUM 100 MG CAPSULE (FP) PO SCH ×3 (06:32→21:42)
[2018-06-27] MEDS: INSULIN SLIDING SCALE (NOVOLOG) 1 VIAL SQ SCH ×3 (06:40→17:25)
[2018-06-27] MEDS: SEVELAMER CARBONATE 800 MG TAB (FP) PO SCH ×3 (07:57→17:19)
[2018-06-27] MEDS: CLOPIDOGREL BISULFATE 75 MG TABLET (FP) PO SCH (09:11)
[2018-06-27] MEDS: CALCITRIOL 0.25 MCG CAPSULE (FP) PO SCH (09:11)
[2018-06-27] MEDS: LISINOPRIL 20 MG TABLET (FP) PO SCH (09:11)
[2018-06-27] MEDS: FERROUS SO4 325 MG TABLET (FP) PO SCH ×2 (09:11→21:42)
[2018-06-27] MEDS: FUROSEMIDE 40 MG TABLET (FP) PO SCH (09:11)
[2018-06-27] MEDS: ASPIRIN COATED 81 MG TABLET.EC PO SCH (09:11)
[2018-06-27] MEDS: LABETALOL HCL 100 MG TABLET (FP) PO SCH ×2 (09:11→21:42)
[2018-06-27] MEDS: NIFEdipine E.R 60 MG TABLET (UD) PO SCH ×2 (09:15→21:42)
[2018-06-27 10:18] LABS: BASO % 0.5 % (0-2.0); EOS % 0.4 % (0-4.5); HEMATOCRIT 24.1 % (35.4-49); HEMOGLOBIN 7.9 GM/dL (11.7-16.9); LYMPH % 5.3 % (8-40); MCH 30.1 pg (25.7-33.7); MCHC 32.8 g/dl (32.0-35.9); MEAN PLT VOLUME 8.3 fl (7.5-11.1); MONO % 8.8 % (3.8-10.2); PLATELET COUNT 243 K/MM3 (134-434); RBC 2.62 M/mm3 (4.00-5.60); RDW 19.2 % (11.9-15.9); WHITE BLOOD COUNT 21.9 K/mm3 (4.0-10.0)
[2018-06-27 10:46] LABS: ALBUMIN 1.9 g/dl (3.4-5.0); ALK PHOS 366 U/L (45-117); ANION GAP 11 MMOL/L (8-16); BILIRUBIN,TOTAL 0.9 mg/dL (0.2-1); BLOOD UREA NITROGEN 36 mg/dL (7-18); CALCIUM 9.5 mg/dL (8.5-10.1); CHLORIDE 94 mmol/L (98-107); CO2 29 mmol/L (21-32); CREATININE 6.9 mg/dL (0.55-1.3); GLUCOSE,RANDOM 126 mg/dL (74-106); MAGNESIUM 2.2 mg/dL (1.8-2.4); PHOSPHOROUS 4.6 mg/dL (2.5-4.9); POTASSIUM 3.8 mmol/L (3.5-5.1); SGOT/AST 37 U/L (15-37); SGPT/ALT 14 U/L (13-61); SODIUM 134 mmol/L (136-145); TOT PROT 6.9 g/dl (6.4-8.2)
[2018-06-27 11:08] LABS: INR 1.25 (0.83-1.09); PROTHROMBIN TIME (PATIENT) 14.8 SEC (9.7-13.0)
[2018-06-27 11:34] LABS: PLATELET ESTIMATE ADEQUATE
[2018-06-27] MEDS ORDERED: EPOETIN ALFA 10,000 UNIT, EPOETIN ALFA 2,000 UNIT IVPUSH ONE (12:00)
--- NOTE | 2018-06-27 14:26 | PATH ---
Surgical Pathology Report Patient Name: KARI VILLALOBOS Med. Rec. #: [id number] /Age/Gender: 1950 (Age: 68) / M Account: [id number] Location: [address] [place] [address] MED[facility] Taken: 06/24/2018 Received: 06/24/2018 Reported: 06/26/2018 Physicians: SB Durán M.D. Specimen(s) Received A: BONE LEFT 1ST METATARSAL HEAD B: DEBRIDEMENT TISSUE AND BONE LEFT FOOT Clinical History Gangrenous left foot Final Diagnosis A. BONE, FIRST METATARSAL, LEFT, REVISION OF TRANSMETATARSAL AMPUTATION: BONE WITH FATTY MARROW. NO ACUTE OSTEOMYELITIS IDENTIFIED. ADHERENT FIBROCONNECTIVE TO FIBROVASCULAR TISSUE WITH MODERATE CALCIFIC ATHEROSCLEROSIS. B. BONE AND TISSUE, FOOT, LEFT, DEBRIDEMENT: BONE WITH MODERATE ACUTE OSTEOMYELITIS. SKIN AND UNDERLYING SUBCUTANEOUS TISSUE WITH MARKED ACUTE AND CHRONIC INFLAMMATION, AND GANGRENOUS NECROSIS. MODERATE CALCIFIC ATHEROSCLEROSIS. Electronically Signed Gayle Hartley M.D. Gross Description A. Received in formalin labeled "bone left first metatarsal," is a 2.4 x 2.2 x 2.2 cm portion of bone, consistent with a metatarsal head. The specimen displays smooth articular cartilage at one end and smooth trabecular bone at the opposing end. [employer] sections are submitted in 2 cassettes as follows: 1-end with articular cartilage, following decalcification; 2-end with trabecular bone, following decalcification. B. Received in formalin labeled "bone and tissue left foot," is a 12.0 x 11.0 x 1.7 cm aggregate of multiple undesignated portions of necrotic skin, soft tissue and bone. [employer]point Manager sections are submitted in one cassette, following decalcification. DL/06/25/2018 saudi06/25/2018
--- NOTE | 2018-06-27 16:20 | PN ---
Progress Note, Physician History of Present Illness: S/P revision TMA Path reports ?infected bone at margins Now febrile Cultures noted - Current Medication List Current Medications: Active Medications Acetaminophen (Tylenol -) 650 mg PO QID PRN PRN Reason: PAIN Last Admin: 06/27/18 04:22 Dose: 650 mg Acetaminophen (Tylenol -) 325 mg PO Q4H PRN PRN Reason: PAIN LEVEL 4 - 6 Last Admin: 06/25/18 00:50 Dose: 325 mg Aspirin (Ecotrin -) 81 mg PO DAILY [facility] Last Admin: 06/27/18 09:11 Dose: 81 mg Atorvastatin Calcium (Lipitor -) 80 mg PO HS [facility] Last Admin: 06/26/18 21:17 Dose: 80 mg Calcitriol (Rocaltrol -) 0.25 mcg PO DAILY [facility] Last Admin: 06/27/18 09:11 Dose: 0.25 mcg Clopidogrel Bisulfate (Plavix -) 75 mg PO DAILY [facility] Last Admin: 06/27/18 09:11 Dose: 75 mg Docusate Sodium (Colace -) 100 mg PO TID [facility] Last Admin: 06/27/18 13:31 Dose: Not Given Ferrous Sulfate (Feosol -) 325 mg PO BID [facility] Last Admin: 06/27/18 09:11 Dose: 325 mg Furosemide (Lasix -) 40 mg PO DAILY [facility] Last Admin: 06/27/18 09:11 Dose: 40 mg Hydralazine HCl (Apresoline -) 100 mg PO TID [facility] Last Admin: 06/27/18 15:12 Dose: Not Given Piperacillin Sod/Tazobactam (Sod 2.25 gm/ Dextrose) 50 mls @ 100 mls/hr IVPB Q8H-IV [facility]; Protocol Last Admin: 06/27/18 09:15 Dose: Not Given Sodium Chloride (Normal Saline -) 250 mls @ 3,000 mls/hr IV PRN PRN PRN Reason: Hypotension during Dialysis Stop: 06/27/18 16:47 Insulin Aspart (Novolog Vial Sliding Scale -) 1 vial SQ TIDAC [facility]; Protocol Last Admin: 06/27/18 11:00 Dose: Not Given Labetalol HCl (Normodyne -) 100 mg PO BID [facility] Last Admin: 06/27/18 09:11 Dose: 100 mg Lisinopril (Prinivil) 40 mg PO DAILY [facility] Last Admin: 06/27/18 09:11 Dose: 40 mg Nifedipine (Procardia Xl -) 60 mg PO BID [facility] Last Admin: 06/27/18 09:15 Dose: 60 mg Ondansetron HCl (Zofran Injection) 4 mg IVPUSH Q6H PRN PRN Reason: NAUSEA AND/OR VOMITING Sevelamer Carbonate (Renvela -) 800 mg PO TIDCM [facility] Last Admin: 06/27/18 13:32 Dose: Not Given - Objective Vital Signs: Vital Signs Temperature 101.1 F H 06/27/18 14:35 Pulse Rate 77 06/27/18 14:35 Respiratory Rate 20 06/27/18 14:35 Blood Pressure 163/74 06/27/18 14:35 O2 Sat by Pulse Oximetry (%) 95 06/27/18 09:00 Extremities: Yes: Other (TMA surgical wound intact) Labs: CBC, BMP 06/27/18 09:15 06/27/18 09:15 INR, PTT INR 1.25 (0.83-1.09) H 06/27/18 09:15 Assessment/Plan S/P TMA Fever/ Leukocytosis Path shows osteomyelitis at resected margins Repeat BC Advise treatment for osteo with: Vancomycin 500mg at each HD x 4weeks Levaquin 250mg po q48h x 4 weeks
[2018-06-27] MEDS ORDERED: VANCOMYCIN 1 GRAM (PRE-DOCKED) 1,000 MG/250 ML BAG IVPB ONE ×2 (16:30→22:00)
--- NOTE | 2018-06-27 16:37 | PN ---
Progress Note, Physician History of Present Illness: Pt seen and examined at bedside. He is awake and comfortable. - Current Medication List Current Medications: Active Medications Acetaminophen (Tylenol -) 650 mg PO QID PRN PRN Reason: PAIN 1-3 Last Admin: 06/27/18 04:22 Dose: 650 mg Acetaminophen (Tylenol -) 325 mg PO Q4H PRN PRN Reason: PAIN LEVEL 4 - 6 Last Admin: 06/25/18 00:50 Dose: 325 mg Aspirin (Ecotrin -) 81 mg PO DAILY [facility] Last Admin: 06/27/18 09:11 Dose: 81 mg Atorvastatin Calcium (Lipitor -) 80 mg PO HS [facility] Last Admin: 06/26/18 21:17 Dose: 80 mg Calcitriol (Rocaltrol -) 0.25 mcg PO DAILY [facility] Last Admin: 06/27/18 09:11 Dose: 0.25 mcg Clopidogrel Bisulfate (Plavix -) 75 mg PO DAILY [facility] Last Admin: 06/27/18 09:11 Dose: 75 mg Docusate Sodium (Colace -) 100 mg PO TID [facility] Last Admin: 06/27/18 13:31 Dose: Not Given Ferrous Sulfate (Feosol -) 325 mg PO BID [facility] Last Admin: 06/27/18 09:11 Dose: 325 mg Furosemide (Lasix -) 40 mg PO DAILY [facility] Last Admin: 06/27/18 09:11 Dose: 40 mg Hydralazine HCl (Apresoline -) 100 mg PO TID [facility] Last Admin: 06/27/18 15:12 Dose: Not Given Sodium Chloride (Normal Saline -) 250 mls @ 3,000 mls/hr IV PRN PRN PRN Reason: Hypotension during Dialysis Stop: 06/27/18 16:47 Levofloxacin (Levaquin 250 Mg Premixed Ivpb -) 250 mg in 50 mls @ 50 mls/hr IVPB Q2D@1000 [facility]; Protocol Vancomycin HCl (Vancomycin (Pre-Docked)) 1,000 mg in 250 mls @ 166.667 mls/hr IVPB ONCE ONE; Protocol Stop: 06/27/18 17:59 Insulin Aspart (Novolog Vial Sliding Scale -) 1 vial SQ TIDAC [facility]; Protocol Last Admin: 06/27/18 11:00 Dose: Not Given Labetalol HCl (Normodyne -) 100 mg PO BID [facility] Last Admin: 06/27/18 09:11 Dose: 100 mg Lisinopril (Prinivil) 40 mg PO DAILY [facility] Last Admin: 06/27/18 09:11 Dose: 40 mg Nifedipine (Procardia Xl -) 60 mg PO BID [facility] Last Admin: 06/27/18 09:15 Dose: 60 mg Ondansetron HCl (Zofran Injection) 4 mg IVPUSH Q6H PRN PRN Reason: NAUSEA AND/OR VOMITING Oxycodone HCl (Roxicodone -) 5 mg PO Q4H PRN PRN Reason: PAIN LEVEL 7-10 Sevelamer Carbonate (Renvela -) 800 mg PO TIDCM [facility] Last Admin: 06/27/18 13:32 Dose: Not Given - Objective Vital Signs: Vital Signs Temperature 101.1 F H 06/27/18 14:35 Pulse Rate 77 06/27/18 14:35 Respiratory Rate 20 06/27/18 14:35 Blood Pressure 163/74 06/27/18 14:35 O2 Sat by Pulse Oximetry (%) 95 06/27/18 09:00 Constitutional: Yes: Calm Eyes: Yes: Conjunctiva Clear HENT: Yes: Atraumatic Cardiovascular: Yes: S1, S2 Respiratory: Yes: CTA Bilaterally Gastrointestinal: Yes: Soft Genitourinary: Yes: WNL Edema: No Wound/Incision: Yes: Dressing Dry and Intact Neurological: Yes: Oriented Psychiatric: Yes: Oriented Labs: CBC, BMP 06/27/18 09:15 06/27/18 09:15 INR, PTT INR 1.25 (0.83-1.09) H 06/27/18 09:15 Problem List - Problems (1) ESRD (end stage renal disease) Code(s): N18.6 - END STAGE RENAL DISEASE (2) Gangrene Code(s): I96 - GANGRENE, NOT ELSEWHERE CLASSIFIED (3) PAD (peripheral artery disease) Code(s): I73.9 - PERIPHERAL VASCULAR DISEASE, UNSPECIFIED Assessment/Plan Current Medications Generic Name Dose Route Start Last Admin Trade Name Freq PRN Reason Stop Dose Admin Acetaminophen 650 mg 06/24/18 11:34 06/27/18 04:22 Tylenol - PO 650 mg QID PRN Administration PAIN 1-3 Acetaminophen 325 mg 06/24/18 15:09 06/25/18 00:50 Tylenol - PO 325 mg Q4H PRN Administration PAIN LEVEL 4 - 6 Aspirin 81 mg 06/25/18 10:00 06/27/18 09:11 Ecotrin - PO 81 mg DAILY [facility] Administration Atorvastatin Calcium 80 mg 06/24/18 22:00 06/26/18 21:17 Lipitor - PO 80 mg HS [facility] Administration Calcitriol 0.25 mcg 06/25/18 10:00 06/27/18 09:11 Rocaltrol - PO 0.25 mcg DAILY [facility] Administration Clopidogrel Bisulfate 75 mg 06/25/18 10:00 06/27/18 09:11 Plavix - PO 75 mg DAILY [facility] Administration Docusate Sodium 100 mg 06/25/18 14:00 06/27/18 13:31 Colace - PO Not Given TID [facility] Ferrous Sulfate 325 mg 06/25/18 13:15 06/27/18 09:11 Feosol - PO 325 mg BID [facility] Administration Furosemide 40 mg 06/25/18 10:00 06/27/18 09:11 Lasix - PO 40 mg DAILY [facility] Administration Hydralazine HCl 100 mg 06/24/18 14:00 06/27/18 15:12 Apresoline - PO Not Given TID [facility] Sodium Chloride 250 mls @ 3,000 mls/hr 06/26/18 16:46 Normal Saline - IV 06/27/18 16:47 PRN PRN Hypotension during Dialysis Levofloxacin 250 mg in 50 mls @ 50 mls/hr 06/29/18 10:00 Levaquin 250 Mg Premixed Ivpb - IVPB Q2D@1000 [facility] Protocol Vancomycin HCl 1,000 mg in 250 mls @ 166.667 mls/hr 06/27/18 16:30 Vancomycin (Pre-Docked) IVPB 06/27/18 17:59 ONCE ONE Protocol Insulin Aspart 1 vial 06/24/18 16:30 06/27/18 11:00 Novolog Vial Sliding Scale - SQ Not Given TIDAC [facility] Protocol Labetalol HCl 100 mg 06/24/18 22:00 06/27/18 09:11 Normodyne - PO 100 mg BID [facility] Administration Lisinopril 40 mg 06/25/18 10:00 06/27/18 09:11 Prinivil PO 40 mg DAILY [facility] Administration Nifedipine 60 mg 06/24/18 22:00 06/27/18 09:15 Procardia Xl - PO 60 mg BID [facility] Administration Ondansetron HCl 4 mg 06/24/18 12:12 Zofran Injection IVPUSH Q6H PRN NAUSEA AND/OR VOMITING Oxycodone HCl 5 mg 06/27/18 16:20 Roxicodone - PO Q4H PRN PAIN LEVEL 7-10 Sevelamer Carbonate 800 mg 06/24/18 17:30 06/27/18 13:32 Renvela - PO Not Given TIDCM [facility] Impression 1. ESRD on HD 2. anemia 3. DM 4. HTN 5. toe infection/gangrene 6. PVD 7. revision tma and amputation 1st ray left foot Plan - HD today, pt tolerated - abx per ID - cont wound care - cont epogen - PO iron for now - abx per ID - avf 3:00 400 abf - renal diet - monitor bp
[2018-06-27] MEDS ORDERED: EPOETIN ALFA 2,000 UNIT/1 ML VIAL IVPUSH ONE (16:46)
[2018-06-27] MEDS: oxyCODONE HCL 5 MG TABLET PO PRN (17:00)
--- NOTE | 2018-06-27 17:00 | PN ---
Physical Exam: SUBJECTIVE: Patient seen and examined this morning. Temp this afternoon reached 101.3. Patient continues to complain of pain in his foot. Denies any fevers, chills, chest pain, SOB, nausea, vomiting. OBJECTIVE: Vital Signs Period Temp Pulse Resp BP Sys/Cole Pulse Ox Last 24 Hr 98.2 F-101.1 F 61-82 18-24 117-179/50-76 95 GENERAL: A&Ox3, NAD HEAD: NCAT ENT: Oropharynx clear without exudates, MMM NECK: supple, No JVD LUNGS: Breath sounds equal, clear to auscultation bilaterally, no wheezes HEART: Regular rate and rhythm, S1, S2, Systolic murmur at the LLSB ABDOMEN: Soft, nontender, nondistended, normoactive bowel sounds, no guarding EXTREMITIES: 2+ pulses, no edema. Dried, clean and intact Left foot external dressing. Sutures intact over revised TransMetartarsal amputation without any active drainage. Gross lower extremity sensation above the bandage site intact b /l. Dorsiflexion and Plantarflexion 4/5 b/l. NEUROLOGICAL: Cranial nerves II through XII grossly intact. Normal speech, gait not observed. Laboratory Results - last 24 hr 06/27/18 06/27/18 06/27/18 09:15 09:15 09:15 WBC 21.9 H RBC 2.62 L Hgb 7.9 L Hct 24.1 L MCV 92.0 MCH 30.1 MCHC 32.8 RDW 19.2 H Plt Count 243 MPV 8.3 Absolute Neuts (auto) 18.6 H Total Counted 100 Neutrophils % 85.0 H Neutrophils % (Manual) 90.0 H Band Neutrophils % 1.0 Lymphocytes % 5.3 L D Lymphocytes % (Manual) 6.0 L Monocytes % 8.8 Monocytes % (Manual) 3 L Eosinophils % 0.4 Basophils % 0.5 Nucleated RBC % 0 Platelet Estimate Adequate PT with INR 14.80 H INR 1.25 H Sodium 134 L Potassium 3.8 Chloride 94 L Carbon Dioxide 29 Anion Gap 11 BUN 36 H Creatinine 6.9 H Creat Clearance w eGFR 7.95 POC Glucometer Random Glucose 126 H Calcium 9.5 Phosphorus 4.6 Magnesium 2.2 Total Bilirubin 0.9 AST 37 ALT 14 Alkaline Phosphatase 366 H Total Protein 6.9 Albumin 1.9 L Blood Type Antibody Screen Crossmatch 06/27/18 10:15 WBC RBC Hgb Hct MCV MCH MCHC RDW Plt Count MPV Absolute Neuts (auto) Total Counted Neutrophils % Neutrophils % (Manual) Band Neutrophils % Lymphocytes % Lymphocytes % (Manual) Monocytes % Monocytes % (Manual) Eosinophils % Basophils % Nucleated RBC % Platelet Estimate PT with INR INR Sodium Potassium Chloride Carbon Dioxide Anion Gap BUN Creatinine Creat Clearance w eGFR POC Glucometer Random Glucose Calcium Phosphorus Magnesium Total Bilirubin AST ALT Alkaline Phosphatase Total Protein Albumin Blood Type O POSITIVE Antibody Screen Negative Crossmatch Microbiology 06/24/18 10:56 Foot - Lt Transmetatarsal Amp Site Gram Stain - Final 06/24/18 10:56 Foot - Lt Transmetatarsal Amp Site Wound Culture - Final Stenotrophomon.(X.)Maltophilia 06/24/18 10:44 Foot - Lt Transmetatarsal Amp Site Gram Stain - Final 06/24/18 10:44 Foot - Lt Transmetatarsal Amp Site Wound Culture - Preliminary Aeromonas Hydrophilia Group Gram Negative Néstor 06/05/18 11:10 Blood - Peripheral Venous Blood Culture - Final NO GROWTH AFTER 5 DAYS INCUBATION 06/05/18 11:10 Blood - Peripheral Venous Blood Culture - Final NO GROWTH AFTER 5 DAYS INCUBATION Active Medications Acetaminophen (Tylenol -) 650 mg PO QID PRN PRN Reason: PAIN 1-3 Last Admin: 06/27/18 04:22 Dose: 650 mg Acetaminophen (Tylenol -) 325 mg PO Q4H PRN PRN Reason: PAIN LEVEL 4 - 6 Last Admin: 06/25/18 00:50 Dose: 325 mg Aspirin (Ecotrin -) 81 mg PO DAILY [facility] Last Admin: 06/27/18 09:11 Dose: 81 mg Atorvastatin Calcium (Lipitor -) 80 mg PO HS [facility] Last Admin: 06/26/18 21:17 Dose: 80 mg Calcitriol (Rocaltrol -) 0.25 mcg PO DAILY [facility] Last Admin: 06/27/18 09:11 Dose: 0.25 mcg Clopidogrel Bisulfate (Plavix -) 75 mg PO DAILY [facility] Last Admin: 06/27/18 09:11 Dose: 75 mg Docusate Sodium (Colace -) 100 mg PO TID [facility] Last Admin: 06/27/18 13:31 Dose: Not Given Ferrous Sulfate (Feosol -) 325 mg PO BID [facility] Last Admin: 06/27/18 09:11 Dose: 325 mg Furosemide (Lasix -) 40 mg PO DAILY [facility] Last Admin: 06/27/18 09:11 Dose: 40 mg Hydralazine HCl (Apresoline -) 100 mg PO TID [facility] Last Admin: 06/27/18 15:12 Dose: Not Given Levofloxacin (Levaquin 250 Mg Premixed Ivpb -) 250 mg in 50 mls @ 50 mls/hr IVPB Q2D@1000 [facility]; Protocol Vancomycin HCl (Vancomycin (Pre-Docked)) 1,000 mg in 250 mls @ 166.667 mls/hr IVPB ONCE ONE; Protocol Stop: 06/27/18 17:59 Insulin Aspart (Novolog Vial Sliding Scale -) 1 vial SQ TIDAC [facility]; Protocol Last Admin: 06/27/18 11:00 Dose: Not Given Labetalol HCl (Normodyne -) 100 mg PO BID [facility] Last Admin: 06/27/18 09:11 Dose: 100 mg Lisinopril (Prinivil) 40 mg PO DAILY [facility] Last Admin: 06/27/18 09:11 Dose: 40 mg Nifedipine (Procardia Xl -) 60 mg PO BID [facility] Last Admin: 06/27/18 09:15 Dose: 60 mg Ondansetron HCl (Zofran Injection) 4 mg IVPUSH Q6H PRN PRN Reason: NAUSEA AND/OR VOMITING Oxycodone HCl (Roxicodone -) 5 mg PO Q4H PRN PRN Reason: PAIN LEVEL 7-10 Sevelamer Carbonate (Renvela -) 800 mg PO TIDCM [facility] Last Admin: 06/27/18 13:32 Dose: Not Given IMAGING: EKG: NORMAL SINUS RHYTHM, NONSPECIFIC T WAVE ABNORMALITY EKG done (06/10) revealed new T-wave inversions in lateral leads, Left Foot XRay: No fracture or osteomyelitis. CT ANGIOGRAM OF THE ABDOMEN AND PELVIS WITH BILATERAL LOWER EXTREMITY RUNOFFS: Predominant distal arterial disease suggestive of diabetic and/or nephrogenic vasculopathy. Predominant disease in the distal left popliteal and infrapopliteal arteries demonstrating interval improvement in flow and mild improvement in the degree of stenosis described on the prior exam, as described above. Essential flow to the foot is provided by the MIGUELITO. Peroneal artery is occluded and MASON TENDER demonstrate short segmental occlusions with reconstitution of flow in the plantar artery which demonstrate robust flow. Flow is seen in the digital arteries. Predominant right infrapopliteal disease, as described above, grossly unchanged since the prior exam. Subcutaneous edema with mesenteric stranding possibly due to third spacing/anasarca. Under distended urinary bladder with suggestion of wall thickening. Correlate clinically for cystitis. ASSESSMENT/PLAN: 68 y/o M w/ PMHx CAD, [place], PVD, ESRD on HD (MWF), HTN, admitted for gangrene/ osteomyelitis of the left foot on 05/16, now presents with worsening pain and discoloration of the left 4th toe and blackening and pain of the 3rd toe 1. Gangrene of L 3rd and 4th toes with Osteomyelitis -POD#3 S/P revision tma (Left toes 2-4) and amputation 1st ray left foot (06/24) ; s/p L TMA sparing great toe (06/11/18) -Continue Zosyn course (Started 06/11) -Pain control via Oxycodone -Podiatry (Dr. Garcia) consulted: Amputation on 06/11. Revised TMA on 06/24. -CTA noted as above -Previous Pathology report s/p TMA on 06/11 showed bone with acute osteomyelitis -Dr. Paiz: Angiogram performed. No areas of stenosis. 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 Pt would benefit from HBO. Cleared from a vascular standpoint for podiatry surgery -ID (Dr. Reyez) consulted: Vanc/Zosyn (Started on 06/05), Outpatient treatment with Vancomycin 500mg at each HD x 4weeks, Levaquin 250mg po q48h x 4 weeks -Pt with post op surgical shoe -EKG done (06/10) revealed new T-wave inversions in lateral leads, case discussed with Dr. Wilkins--Pt is cleared to undergo LE surgery -Foot XRay pending read 2. Anemia -S/P 3 units pRBC's (2 on 06/25, 1 on 06/26) -Likely blood loss anemia due to surgery -will continue to monitor, possibly giving 1 unit pRBCs during dialysis 3. ESRD on HD (MWF) -Nephro (Dr. Flaherty) consulted -Vascular evaluated fistula -Cont home Lasix, Sevelamer -Pt requesting blood draws with dialysis 4. CAD/PVD -Cont ASA/Plavix 5. HTN -Cont home dose nifedipine, hydralazine, lasix -Continue Lisinopril 40mg Daily -Continue Labetalol 100 mg BID 6. FEN -PO Fluids -Continue to monitor lytes -Diabetic/Renal diet 7. PPx -no heparin at this time per vascular Dispo: Will need PT eval prior to D/c Visit type - Emergency Visit Emergency Visit: Yes ED Registration Date: 06/05/18 Care time: The patient presented to the Emergency Department on the above date and was hospitalized for further evaluation of their emergent condition. - New Patient This patient is new to me today: No - Critical Care Critical Care patient: No - Discharge Referral Referred to [facility] No
[2018-06-27] MEDS ORDERED: PT OWN MED DRAWER 7, Y5N ONE ×3 (18:28→21:27)
--- NOTE | 2018-06-27 20:47 | PN ---
Teaching Attending Note Name of Resident: Linda Agrawal ATTENDING PHYSICIAN STATEMENT I saw and evaluated the patient. I reviewed the resident's note and discussed the case with the resident. I agree with the resident's findings and plan as documented. SUBJECTIVE: Patient is comfortable with no acute distress, no fever or chills. OBJECTIVE: Vital Signs Temperature 101.1 F H 06/27/18 14:35 Pulse Rate 77 06/27/18 14:35 Respiratory Rate 20 06/27/18 14:35 Blood Pressure 163/74 06/27/18 14:35 O2 Sat by Pulse Oximetry (%) 95 06/27/18 09:00 GENERAL: The patient is awake, alert, and fully oriented, in no acute distress. HEAD: NCAT ENT: oropharynx clear without exudates, MMM NECK: supple, No JVD LUNGS: Breath sounds equal, clear to auscultation bilaterally, no wheezes HEART: Regular rate and rhythm, S1, S2, Systolic murmur at the LLSB ABDOMEN: Soft, nontender, nondistended, normoactive bowel sounds, no guarding EXTREMITIES: 2+ pulses, no edema. Clean LLE external dressing. TransMetartarsal amputation of 2 to 5 digits without any active drainage. NEUROLOGICAL: Cranial nerves II through XII grossly intact. Normal speech, gait not observed. CBCD WBC 21.9 K/mm3 (4.0-10.0) H 06/27/18 09:15 RBC 2.62 M/mm3 (4.00-5.60) L 06/27/18 09:15 Hgb 7.9 GM/dL (11.7-16.9) L 06/27/18 09:15 Hct 24.1 % (35.4-49) L 06/27/18 09:15 MCV 92.0 fl (80-96) 06/27/18 09:15 MCHC 32.8 g/dl (32.0-35.9) 06/27/18 09:15 RDW 19.2 % (11.9-15.9) H 06/27/18 09:15 Plt Count 243 K/MM3 (134-434) 06/27/18 09:15 MPV 8.3 fl (7.5-11.1) 06/27/18 09:15 CMP Sodium 134 mmol/L (136-145) L 06/27/18 09:15 Potassium 3.8 mmol/L (3.5-5.1) 06/27/18 09:15 Chloride 94 mmol/L (98-107) L 06/27/18 09:15 Carbon Dioxide 29 mmol/L (21-32) 06/27/18 09:15 Anion Gap 11 MMOL/L (8-16) 06/27/18 09:15 BUN 36 mg/dL (7-18) H 06/27/18 09:15 Creatinine 6.9 mg/dL (0.55-1.3) H 06/27/18 09:15 Creat Clearance w eGFR 7.95 (>60) 06/27/18 09:15 Random Glucose 126 mg/dL (74-106) H 06/27/18 09:15 Calcium 9.5 mg/dL (8.5-10.1) 06/27/18 09:15 Total Bilirubin 0.9 mg/dL (0.2-1) 06/27/18 09:15 AST 37 U/L (15-37) 06/27/18 09:15 ALT 14 U/L (13-61) 06/27/18 09:15 Alkaline Phosphatase 366 U/L (45-117) H 06/27/18 09:15 Total Protein 6.9 g/dl (6.4-8.2) 06/27/18 09:15 Albumin 1.9 g/dl (3.4-5.0) L 06/27/18 09:15 Current Medications Generic Name Dose Route Start Last Admin Trade Name Freq PRN Reason Stop Dose Admin Acetaminophen 650 mg 06/24/18 11:34 06/27/18 17:00 Tylenol - PO 650 mg QID PRN Administration PAIN 1-3 Acetaminophen 325 mg 06/24/18 15:09 06/25/18 00:50 Tylenol - PO 325 mg Q4H PRN Administration PAIN LEVEL 4 - 6 Aspirin 81 mg 06/25/18 10:00 06/27/18 09:11 Ecotrin - PO 81 mg DAILY [facility] Administration Atorvastatin Calcium 80 mg 06/24/18 22:00 06/26/18 21:17 Lipitor - PO 80 mg HS [facility] Administration Calcitriol 0.25 mcg 06/25/18 10:00 06/27/18 09:11 Rocaltrol - PO 0.25 mcg DAILY [facility] Administration Clopidogrel Bisulfate 75 mg 06/25/18 10:00 06/27/18 09:11 Plavix - PO 75 mg DAILY [facility] Administration Docusate Sodium 100 mg 06/25/18 14:00 06/27/18 13:31 Colace - PO Not Given TID [facility] Ferrous Sulfate 325 mg 06/25/18 13:15 06/27/18 09:11 Feosol - PO 325 mg BID [facility] Administration Furosemide 40 mg 06/25/18 10:00 06/27/18 09:11 Lasix - PO 40 mg DAILY [facility] Administration Hydralazine HCl 100 mg 06/24/18 14:00 06/27/18 06:32 Apresoline - PO 100 mg TID [facility] Administration Levofloxacin 250 mg in 50 mls @ 50 mls/hr 06/29/18 10:00 Levaquin 250 Mg Premixed Ivpb - IVPB Q2D@1000 [facility] Protocol Insulin Aspart 1 vial 06/24/18 16:30 06/27/18 17:25 Novolog Vial Sliding Scale - SQ Not Given TIDAC [facility] Protocol Labetalol HCl 100 mg 06/24/18 22:00 06/27/18 09:11 Normodyne - PO 100 mg BID [facility] Administration Lisinopril 40 mg 06/25/18 10:00 06/27/18 09:11 Prinivil PO 40 mg DAILY [facility] Administration Nifedipine 60 mg 06/24/18 22:00 06/27/18 09:15 Procardia Xl - PO 60 mg BID [facility] Administration Ondansetron HCl 4 mg 06/24/18 12:12 Zofran Injection IVPUSH Q6H PRN NAUSEA AND/OR VOMITING Oxycodone HCl 5 mg 06/27/18 16:20 06/27/18 17:00 Roxicodone - PO 5 mg Q4H PRN Administration PAIN LEVEL 7-10 Sevelamer Carbonate 800 mg 06/24/18 17:30 06/27/18 17:19 Renvela - PO 800 mg TIDCM [facility] Administration Home Medications Medication Instructions Recorded Sevelamer HCl [Renagel] 800 mg PO TIDCM 05/16/18 Aspirin Coated [Ecotrin -] 81 mg PO DAILY #30 tablet.ec 05/27/18 Atorvastatin Ca [Lipitor] 20 mg PO HS #30 tablet 09/11/18 Calcitriol [Calcitriol -] 0.25 mcg PO DAILY #30 capsule 05/27/18 Clopidogrel Bisulfate [Plavix -] 75 mg PO DAILY #30 tablet 05/27/18 Furosemide [Lasix -] 40 mg PO DAILY #30 tablet 05/27/18 Hydralazine HCl 100 mg PO TID #90 tablet 05/27/18 Nifedipine ER [Procardia XL -] 60 mg PO BID #60 tab.er.24 05/27/18 Acetaminophen [Tylenol] 650 mg PO QID PRN 06/05/18 06/24/18 10:56 Foot - Lt Transmetatarsal Amp Site Gram Stain - Final 06/24/18 10:56 Foot - Lt Transmetatarsal Amp Site Wound Culture - Final Stenotrophomon.(X.)Maltophilia 06/24/18 10:44 Foot - Lt Transmetatarsal Amp Site Gram Stain - Final 06/24/18 10:44 Foot - Lt Transmetatarsal Amp Site Wound Culture - Preliminary Aeromonas Hydrophilia Group Gram Negative Néstor 06/05/18 11:10 Blood - Peripheral Venous Blood Culture - Final NO GROWTH AFTER 5 DAYS INCUBATION 06/05/18 11:10 Blood - Peripheral Venous Blood Culture - Final NO GROWTH AFTER 5 DAYS INCUBATION ASSESSMENT AND PLAN: Patient is a 68 y/o man with h/o CAD, recent NC, PVD, ESRD on HD, HTN, HLP, Hep B , DM, and recent admission for L 4th toe gangrene and OM, s/p angiogram, atherectomy and angioplasty, who presented with increased pain in foot and change in L 3rd toe color. He was found to have a gangrenous 3rd and 4th toes. # Gangrenous 3rd and 4th L toes with OM. S/P revision TMA nad amputation of 1st toe. s/p zosyn IV and as per ID to continue with Vancomycin 500mg at each HD. pathology report shows osteomyelitis at resected margins. As per ID to continue Vancomycin 500mg at each HD x 4weeks, Levaquin 250mg po q48h x 4 weeks. # H/o HTN: uncontrolled continue his HZN, Nifedipine, and lisinoprol. labetalol 100 BID . # H/O ESRD: HD per schedule. cont lasix ,sevelamir # PVD: cont statin, ASA and plavix repeat BC.
[2018-06-27] MEDS: ATORVASTATIN CA 80 MG TABLET (FP) PO SCH (21:42)
[2018-06-28] MEDS: INSULIN SLIDING SCALE (NOVOLOG) 1 VIAL SQ SCH ×3 (06:10→16:59)
[2018-06-28] MEDS: DOCUSATE SODIUM 100 MG CAPSULE (FP) PO SCH ×3 (06:10→21:37)
[2018-06-28] MEDS: hydrALAZINE HCL 50 MG TABLET (FP) PO SCH ×3 (06:10→21:37)
[2018-06-28 07:55] LABS: BASO % 0.2 % (0-2.0); EOS % 0.2 % (0-4.5); HEMATOCRIT 24.3 % (35.4-49); HEMOGLOBIN 8.1 GM/dL (11.7-16.9); LYMPH % 5.1 % (8-40); MCH 30.6 pg (25.7-33.7); MCHC 33.3 g/dl (32.0-35.9); MEAN CELL VOLUME 91.8 fl (80-96); MEAN PLT VOLUME 8.3 fl (7.5-11.1); MONO % 9.7 % (3.8-10.2); NEUT % 84.8 % (42.8-82.8); PLATELET COUNT 247 K/MM3 (134-434); RBC 2.65 M/mm3 (4.00-5.60); RDW 18.8 % (11.9-15.9); WHITE BLOOD COUNT 21.6 K/mm3 (4.0-10.0)
[2018-06-28] MEDS ORDERED: PT OWN MED DRAWER 7, Y5N ONE ×2 (08:58→21:24)
[2018-06-28] MEDS: SEVELAMER CARBONATE 800 MG TAB (FP) PO SCH ×3 (08:59→17:02)
[2018-06-28] MEDS: FUROSEMIDE 40 MG TABLET (FP) PO SCH (09:00)
[2018-06-28] MEDS: LISINOPRIL 20 MG TABLET (FP) PO SCH (09:00)
[2018-06-28] MEDS: LABETALOL HCL 100 MG TABLET (FP) PO SCH ×2 (09:00→21:37)
[2018-06-28] MEDS: CLOPIDOGREL BISULFATE 75 MG TABLET (FP) PO SCH (09:01)
[2018-06-28] MEDS: ASPIRIN COATED 81 MG TABLET.EC PO SCH (09:01)
[2018-06-28] MEDS: NIFEdipine E.R 60 MG TABLET (UD) PO SCH ×2 (09:01→21:37)
[2018-06-28] MEDS: FERROUS SO4 325 MG TABLET (FP) PO SCH ×2 (09:01→21:37)
[2018-06-28] MEDS: CALCITRIOL 0.25 MCG CAPSULE (FP) PO SCH (09:01)
[2018-06-28 09:20] LABS: ALBUMIN 1.8 g/dl (3.4-5.0); ALK PHOS 431 U/L (45-117); ANION GAP 10 MMOL/L (8-16); BILIRUBIN,TOTAL 0.9 mg/dL (0.2-1); BLOOD UREA NITROGEN 24 mg/dL (7-18); CALCIUM 9.4 mg/dL (8.5-10.1); CHLORIDE 96 mmol/L (98-107); CO2 29 mmol/L (21-32); CREATININE 4.8 mg/dL (0.55-1.3); GLUCOSE,RANDOM 140 mg/dL (74-106); PHOSPHOROUS 3.6 mg/dL (2.5-4.9); POTASSIUM 3.7 mmol/L (3.5-5.1); SGOT/AST 43 U/L (15-37); SGPT/ALT 15 U/L (13-61); SODIUM 135 mmol/L (136-145)
[2018-06-28 11:27] LABS: ANISOCYTOSIS 1+; MACROCYTOSIS 0; PLATELET ESTIMATE NORMAL
--- NOTE | 2018-06-28 12:49 | PN ---
Progress Note (short form) - Note Progress Note: pod #4. Patient seen in bed. No pain. vss, Tmax 99.2 +dry bandage, +retention sutures in place, -clinical signs of infection, - tenderness, -drainage, -mal odor, wbc=21.6, stenotrophomon maltophilia, aeromonas hydrophilia, post op day 4 normal post op Dressing removed. Redressed with 4x4 guaze and estiven dressing. bathroom privelages re-instated. Labs reviewed. Foot does not seem to be source of elevated wbc. Antibiotics as per ID. Will follow. Patient getting vancomycin and levaquin at this time.
--- NOTE | 2018-06-28 13:37 | PN ---
Progress Note (short form) - Note Progress Note: patient is doing well, he was sleeping without any issues overnight 1. Gangrene of L 3rd and 4th toes with Osteomyelitis -POD#3 S/P revision tma (Left toes 2-4) and amputation 1st ray left foot (06/24) ; s/p L TMA sparing great toe (06/11/18) -Continue pipercillin/tazobactam (Started 06/11) -Pain control via Oxycodone 2. Anemia -S/P 3 units pRBC's (2 on 06/25, 1 on 06/26) -Likely blood loss anemia due to surgery -will continue to monitor, possibly giving 1 unit pRBCs during dialysis 3. ESRD on HD (MWF) -Nephro (Dr. Flaherty) consulted -Vascular evaluated fistula -Cont home furosemide, Sevelamer -Pt requesting blood draws with dialysis 4. CAD/PVD -Cont ASA/Plavix 5. HTN -Cont home dose nifedipine, hydralazine, lasix -Continue Lisinopril 40mg Daily -Continue Labetalol 100 mg BID 6. FEN -PO Fluids -Continue to monitor lytes -Diabetic/Renal diet 7. PPx -no heparin at this time per vascular Visit type - Emergency Visit Emergency Visit: No - New Patient This patient is new to me today: Yes Date on this admission: 06/28/18 - Critical Care Critical Care patient: No - Discharge Referral Referred to [facility] Med P.C.: No
[2018-06-28] MEDS: ACETAMINOPHEN 325 MG TABLET (FP) PO PRN (21:36)
[2018-06-28] MEDS: ATORVASTATIN CA 80 MG TABLET (FP) PO SCH (21:37)
[2018-06-29] MEDS: hydrALAZINE HCL 50 MG TABLET (FP) PO SCH ×3 (06:11→21:19)
[2018-06-29] MEDS: DOCUSATE SODIUM 100 MG CAPSULE (FP) PO SCH ×3 (06:11→21:13)
[2018-06-29] MEDS: INSULIN SLIDING SCALE (NOVOLOG) 1 VIAL SQ SCH ×3 (06:14→16:58)
[2018-06-29] MEDS: LABETALOL HCL 100 MG TABLET (FP) PO SCH ×2 (09:31→21:20)
[2018-06-29] MEDS: SEVELAMER CARBONATE 800 MG TAB (FP) PO SCH ×3 (09:31→17:08)
[2018-06-29] MEDS: ASPIRIN COATED 81 MG TABLET.EC PO SCH (09:31)
[2018-06-29] MEDS: CLOPIDOGREL BISULFATE 75 MG TABLET (FP) PO SCH (09:31)
[2018-06-29] MEDS: FUROSEMIDE 40 MG TABLET (FP) PO SCH (09:31)
[2018-06-29] MEDS: FERROUS SO4 325 MG TABLET (FP) PO SCH ×2 (09:31→21:20)
[2018-06-29] MEDS: CALCITRIOL 0.25 MCG CAPSULE (FP) PO SCH (09:31)
[2018-06-29] MEDS: NIFEdipine E.R 60 MG TABLET (UD) PO SCH ×2 (09:31→21:24)
[2018-06-29] MEDS: LISINOPRIL 20 MG TABLET (FP) PO SCH (09:31)
--- NOTE | 2018-06-29 10:23 | PN ---
Physical Exam: SUBJECTIVE: Patient seen and examined this morning. Pain is much better this morning. No acute events overnight as per nursing. Denies any fevers, chills, chest pain, SOB, nausea, vomiting. OBJECTIVE: Vital Signs Period Temp Pulse Resp BP Sys/Cole Pulse Ox Last 24 Hr 99.2 F-99.5 F 62-73 20-20 115-145/50-66 GENERAL: A&Ox3, NAD HEAD: NCAT ENT: Oropharynx clear without exudates, MMM NECK: supple, No JVD LUNGS: Breath sounds equal, clear to auscultation bilaterally, no wheezes HEART: Regular rate and rhythm, S1, S2, Systolic murmur at the LLSB ABDOMEN: Soft, nontender, nondistended, normoactive bowel sounds, no guarding EXTREMITIES: 2+ pulses, no edema. Dried, clean and intact Left foot external dressing. Sutures intact over revised TransMetartarsal amputation without any active drainage. No tenderness to palpation. Gross lower extremity sensation above the bandage site intact b/l. Dorsiflexion and Plantarflexion 4/5 b/l. NEUROLOGICAL: Cranial nerves II through XII grossly intact. Normal speech, gait not observed. Laboratory Results - last 24 hr 06/25/18 06/28/18 06/28/18 08:30 07:30 11:33 Neutrophils % (Manual) 84.9 H Band Neutrophils % 0.0 Lymphocytes % (Manual) 3.0 L D Monocytes % (Manual) 10 D Eosinophils % (Manual) 0.0 Basophils % (Manual) 0.0 Myelocytes % (Man) 0 Promyelocytes % (Man) 0 Blast Cells % (Manual) 0 Nucleated RBC % 0 Metamyelocytes 0 Hypochromia 0 Platelet Estimate Normal Platelet Comment Present Polychromasia 0 Poikilocytosis 1+ Anisocytosis 1+ Microcytosis 0 Macrocytosis 0 POC Glucometer 177 Blood Type O POSITIVE Antibody Screen Negative Crossmatch See Detail 06/28/18 06/29/18 16:37 06:13 Neutrophils % (Manual) Band Neutrophils % Lymphocytes % (Manual) Monocytes % (Manual) Eosinophils % (Manual) Basophils % (Manual) Myelocytes % (Man) Promyelocytes % (Man) Blast Cells % (Manual) Nucleated RBC % Metamyelocytes Hypochromia Platelet Estimate Platelet Comment Polychromasia Poikilocytosis Anisocytosis Microcytosis Macrocytosis POC Glucometer 182 134 Blood Type Antibody Screen Crossmatch Microbiology 06/27/18 19:30 Blood - Peripheral Venous Blood Culture - Preliminary NO GROWTH OBTAINED AFTER 24 HOURS, INCUBATION TO CONTINUE FOR 4 DAYS. 06/27/18 17:30 Blood - Peripheral Venous Blood Culture - Preliminary NO GROWTH OBTAINED AFTER 24 HOURS, INCUBATION TO CONTINUE FOR 4 DAYS. 06/24/18 10:44 Foot - Lt Transmetatarsal Amp Site Gram Stain - Final 06/24/18 10:44 Foot - Lt Transmetatarsal Amp Site Wound Culture - Final Aeromonas Hydrophilia Group 06/24/18 10:56 Foot - Lt Transmetatarsal Amp Site Gram Stain - Final 06/24/18 10:56 Foot - Lt Transmetatarsal Amp Site Wound Culture - Final Stenotrophomon.(X.)Maltophilia 06/05/18 11:10 Blood - Peripheral Venous Blood Culture - Final NO GROWTH AFTER 5 DAYS INCUBATION 06/05/18 11:10 Blood - Peripheral Venous Blood Culture - Final NO GROWTH AFTER 5 DAYS INCUBATION Active Medications Acetaminophen (Tylenol -) 650 mg PO QID PRN PRN Reason: PAIN 1-3 Last Admin: 06/28/18 21:36 Dose: 650 mg Acetaminophen (Tylenol -) 325 mg PO Q4H PRN PRN Reason: PAIN LEVEL 4 - 6 Last Admin: 06/25/18 00:50 Dose: 325 mg Aspirin (Ecotrin -) 81 mg PO DAILY [facility] Last Admin: 06/29/18 09:31 Dose: 81 mg Atorvastatin Calcium (Lipitor -) 80 mg PO HS [facility] Last Admin: 06/28/18 21:37 Dose: 80 mg Calcitriol (Rocaltrol -) 0.25 mcg PO DAILY [facility] Last Admin: 06/29/18 09:31 Dose: 0.25 mcg Clopidogrel Bisulfate (Plavix -) 75 mg PO DAILY [facility] Last Admin: 06/29/18 09:31 Dose: 75 mg Docusate Sodium (Colace -) 100 mg PO TID [facility] Last Admin: 06/29/18 06:11 Dose: 100 mg Ferrous Sulfate (Feosol -) 325 mg PO BID [facility] Last Admin: 06/29/18 09:31 Dose: 325 mg Furosemide (Lasix -) 40 mg PO DAILY [facility] Last Admin: 06/29/18 09:31 Dose: 40 mg Hydralazine HCl (Apresoline -) 100 mg PO TID [facility] Last Admin: 06/29/18 06:11 Dose: 100 mg Levofloxacin (Levaquin 250 Mg Premixed Ivpb -) 250 mg in 50 mls @ 50 mls/hr IVPB Q2D@1000 [facility]; Protocol Last Admin: 06/29/18 09:30 Dose: 50 mls/hr Insulin Aspart (Novolog Vial Sliding Scale -) 1 vial SQ TIDAC [facility]; Protocol Last Admin: 06/29/18 06:14 Dose: Not Given Labetalol HCl (Normodyne -) 100 mg PO BID [facility] Last Admin: 06/29/18 09:31 Dose: 100 mg Lisinopril (Prinivil) 40 mg PO DAILY [facility] Last Admin: 06/29/18 09:31 Dose: 40 mg Nifedipine (Procardia Xl -) 60 mg PO BID [facility] Last Admin: 06/29/18 09:31 Dose: 60 mg Ondansetron HCl (Zofran Injection) 4 mg IVPUSH Q6H PRN PRN Reason: NAUSEA AND/OR VOMITING Oxycodone HCl (Roxicodone -) 5 mg PO Q4H PRN PRN Reason: PAIN LEVEL 7-10 Last Admin: 06/27/18 17:00 Dose: 5 mg Sevelamer Carbonate (Renvela -) 800 mg PO TIDCM [facility] Last Admin: 06/29/18 09:31 Dose: 800 mg IMAGING: EKG: NORMAL SINUS RHYTHM, NONSPECIFIC T WAVE ABNORMALITY EKG done (06/10) revealed new T-wave inversions in lateral leads, Left Foot XRay: No fracture or osteomyelitis. CT ANGIOGRAM OF THE ABDOMEN AND PELVIS WITH BILATERAL LOWER EXTREMITY RUNOFFS: Predominant distal arterial disease suggestive of diabetic and/or nephrogenic vasculopathy. Predominant disease in the distal left popliteal and infrapopliteal arteries demonstrating interval improvement in flow and mild improvement in the degree of stenosis described on the prior exam, as described above. Essential flow to the foot is provided by the MIGUELITO. Peroneal artery is occluded and [employer] demonstrate short segmental occlusions with reconstitution of flow in the plantar artery which demonstrate robust flow. Flow is seen in the digital arteries. Predominant right infrapopliteal disease, as described above, grossly unchanged since the prior exam. Subcutaneous edema with mesenteric stranding possibly due to third spacing/anasarca. Under distended urinary bladder with suggestion of wall thickening. Correlate clinically for cystitis. ASSESSMENT/PLAN: 68 y/o M w/ PMHx CAD, [place], PVD, ESRD on HD (MWF), HTN, admitted for gangrene/ osteomyelitis of the left foot on 05/16, now presents with worsening pain and discoloration of the left 4th toe and blackening and pain of the 3rd toe 1. Gangrene of L 3rd and 4th toes with Osteomyelitis -POD#5 S/P revision tma (Left toes 2-4) and amputation 1st ray left foot (06/24) ; s/p L TMA sparing great toe (06/11/18) -Completed Zosyn course (06/11-06/26) -Continue Levaquin (06/27) -Pain control via Oxycodone -Podiatry (Dr. Garcia) consulted: Amputation on 06/11. Revised TMA on 06/24. -CTA noted as above -Pathology report s/p TMA on 06/24 noted -Dr. Paiz: Angiogram performed. No areas of stenosis. 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 Pt would benefit from HBO. Cleared from a vascular standpoint for podiatry surgery -ID (Dr. Reyez) consulted -Pt with post op surgical shoe -EKG done (06/10) revealed new T-wave inversions in lateral leads, case discussed with Dr. Wilkins--Pt is cleared to undergo LE surgery -Foot XRay pending read 2. Anemia -S/P 3 units pRBC's (2 on 06/25, 1 on 06/26) -Likely blood loss anemia due to surgery -will continue to monitor, possibly giving 1 unit pRBCs during dialysis 3. ESRD on HD (MWF) -Nephro (Dr. Flaherty) consulted -Vascular evaluated fistula -Cont home Lasix, Sevelamer -Pt requesting blood draws with dialysis 4. CAD/PVD -Cont ASA/Plavix 5. HTN -Cont home dose nifedipine, hydralazine, lasix -Continue Lisinopril 40mg Daily -Continue Labetalol 100 mg BID 6. FEN -PO Fluids -Continue to monitor lytes -Diabetic/Renal diet 7. PPx -no heparin at this time per vascular Dispo: Will need PT eval prior to D/c Visit type - Emergency Visit Emergency Visit: Yes ED Registration Date: 06/05/18 Care time: The patient presented to the Emergency Department on the above date and was hospitalized for further evaluation of their emergent condition. - New Patient This patient is new to me today: No - Critical Care Critical Care patient: No - Discharge Referral Referred to [facility] No
[2018-06-29 10:54] LABS: BASO % 0.3 % (0-2.0); EOS % 1.1 % (0-4.5); HEMOGLOBIN 7.9 GM/dL (11.7-16.9); LYMPH % 3.6 % (8-40); MCH 30.6 pg (25.7-33.7); MCHC 32.7 g/dl (32.0-35.9); MEAN CELL VOLUME 93.5 fl (80-96); MEAN PLT VOLUME 8.8 fl (7.5-11.1); MONO % 8.1 % (3.8-10.2); NEUT % 86.9 % (42.8-82.8); PLATELET COUNT 265 K/MM3 (134-434); RBC 2.57 M/mm3 (4.00-5.60); RDW 18.2 % (11.9-15.9); WHITE BLOOD COUNT 18.8 K/mm3 (4.0-10.0)
[2018-06-29] MEDS ORDERED: INSULIN (NOVOLOG) ASPART 100 UNITS/ML 10ML VIAL ONE (10:54)
[2018-06-29 11:16] LABS: ALBUMIN 1.7 g/dl (3.4-5.0); ALK PHOS 415 U/L (45-117); ANION GAP 13 MMOL/L (8-16); BILIRUBIN,TOTAL 0.9 mg/dL (0.2-1); BLOOD UREA NITROGEN 35 mg/dL (7-18); CALCIUM 9.5 mg/dL (8.5-10.1); CHLORIDE 97 mmol/L (98-107); CO2 28 mmol/L (21-32); CREATININE 6.2 mg/dL (0.55-1.3); GLUCOSE,RANDOM 136 mg/dL (74-106); POTASSIUM 3.6 mmol/L (3.5-5.1); SGOT/AST 39 U/L (15-37); SGPT/ALT 15 U/L (13-61); SODIUM 138 mmol/L (136-145); TOT PROT 6.5 g/dl (6.4-8.2)
[2018-06-29] MEDS: ACETAMINOPHEN 325 MG TABLET (FP) PO PRN (21:19)
[2018-06-29] MEDS: ATORVASTATIN CA 80 MG TABLET (FP) PO SCH (21:20)
[2018-06-30] MEDS: hydrALAZINE HCL 50 MG TABLET (FP) PO SCH ×3 (05:49→21:02)
[2018-06-30] MEDS: DOCUSATE SODIUM 100 MG CAPSULE (FP) PO SCH ×3 (05:49→21:02)
[2018-06-30] MEDS: INSULIN SLIDING SCALE (NOVOLOG) 1 VIAL SQ SCH ×3 (06:01→16:48)
[2018-06-30] MEDS: oxyCODONE HCL 5 MG TABLET PO PRN ×3 (06:37→18:06)
[2018-06-30] MEDS: SEVELAMER CARBONATE 800 MG TAB (FP) PO SCH ×3 (08:22→17:58)
[2018-06-30] MEDS: LISINOPRIL 20 MG TABLET (FP) PO SCH (09:26)
[2018-06-30] MEDS: ASPIRIN COATED 81 MG TABLET.EC PO SCH (09:26)
[2018-06-30] MEDS: NIFEdipine E.R 60 MG TABLET (UD) PO SCH ×2 (09:26→22:22)
[2018-06-30] MEDS: FUROSEMIDE 40 MG TABLET (FP) PO SCH (09:26)
[2018-06-30] MEDS: LABETALOL HCL 100 MG TABLET (FP) PO SCH ×2 (09:26→21:02)
[2018-06-30] MEDS: FERROUS SO4 325 MG TABLET (FP) PO SCH ×2 (09:26→21:02)
[2018-06-30] MEDS: CLOPIDOGREL BISULFATE 75 MG TABLET (FP) PO SCH (09:26)
[2018-06-30] MEDS: CALCITRIOL 0.25 MCG CAPSULE (FP) PO SCH (09:26)
[2018-06-30] MEDS ORDERED: INSULIN (NOVOLOG) ASPART 100 UNITS/ML 10ML VIAL ONE (10:57)
[2018-06-30 11:53] LABS: BASO % 0.3 % (0-2.0); HEMATOCRIT 24.3 % (35.4-49); HEMOGLOBIN 7.9 GM/dL (11.7-16.9); LYMPH % 3.7 % (8-40); MCH 30.4 pg (25.7-33.7); MCHC 32.6 g/dl (32.0-35.9); MEAN CELL VOLUME 93.3 fl (80-96); MEAN PLT VOLUME 8.9 fl (7.5-11.1); MONO % 8.5 % (3.8-10.2); NEUT % 86.5 % (42.8-82.8); PLATELET COUNT 269 K/MM3 (134-434); RBC 2.61 M/mm3 (4.00-5.60); RDW 18.1 % (11.9-15.9); WHITE BLOOD COUNT 17.3 K/mm3 (4.0-10.0)
[2018-06-30 13:02] LABS: ALBUMIN 1.7 g/dl (3.4-5.0); ALK PHOS 551 U/L (45-117); ANION GAP 9 MMOL/L (8-16); BILIRUBIN,TOTAL 0.9 mg/dL (0.2-1); BLOOD UREA NITROGEN 48 mg/dL (7-18); CALCIUM 9.9 mg/dL (8.5-10.1); CHLORIDE 93 mmol/L (98-107); CO2 27 mmol/L (21-32); GLUCOSE,RANDOM 153 mg/dL (74-106); MAGNESIUM 2.4 mg/dL (1.8-2.4); SGOT/AST 43 U/L (15-37); SGPT/ALT 17 U/L (13-61); SODIUM 129 mmol/L (136-145); TOT PROT 6.9 g/dl (6.4-8.2)
[2018-06-30 13:06] LABS: CREATININE 7.9 mg/dL (0.55-1.3)
--- NOTE | 2018-06-30 13:21 | PN ---
Progress Note, Physician History of Present Illness: Pt seen and examined at bedside. He is awake and appears comfortable. He is due for HD today. - Current Medication List Current Medications: Active Medications Acetaminophen (Tylenol -) 650 mg PO QID PRN PRN Reason: PAIN 1-3 Last Admin: 06/29/18 21:19 Dose: 650 mg Acetaminophen (Tylenol -) 325 mg PO Q4H PRN PRN Reason: PAIN LEVEL 4 - 6 Last Admin: 06/25/18 00:50 Dose: 325 mg Aspirin (Ecotrin -) 81 mg PO DAILY [facility] Last Admin: 06/30/18 09:26 Dose: 81 mg Atorvastatin Calcium (Lipitor -) 80 mg PO HS [facility] Last Admin: 06/29/18 21:20 Dose: 80 mg Calcitriol (Rocaltrol -) 0.25 mcg PO DAILY [facility] Last Admin: 06/30/18 09:26 Dose: 0.25 mcg Clopidogrel Bisulfate (Plavix -) 75 mg PO DAILY [facility] Last Admin: 06/30/18 09:26 Dose: 75 mg Docusate Sodium (Colace -) 100 mg PO TID [facility] Last Admin: 06/30/18 05:49 Dose: Not Given Epoetin Thomas (Procrit -) 12,000 unit IVPUSH ONCE ONE Stop: 06/30/18 13:19 Ferrous Sulfate (Feosol -) 325 mg PO BID [facility] Last Admin: 06/30/18 09:26 Dose: 325 mg Furosemide (Lasix -) 40 mg PO DAILY [facility] Last Admin: 06/30/18 09:26 Dose: 40 mg Hydralazine HCl (Apresoline -) 100 mg PO TID [facility] Last Admin: 06/30/18 05:49 Dose: 100 mg Levofloxacin (Levaquin 250 Mg Premixed Ivpb -) 250 mg in 50 mls @ 50 mls/hr IVPB Q2D@1000 [facility]; Protocol Last Admin: 06/29/18 09:30 Dose: 50 mls/hr Sodium Chloride (Normal Saline -) 250 mls @ 3,000 mls/hr IV PRN PRN PRN Reason: Hypotension during Dialysis Stop: 06/30/18 10:48 Insulin Aspart (Novolog Vial Sliding Scale -) 1 vial SQ TIDAC [facility]; Protocol Last Admin: 06/30/18 11:00 Dose: 2 units Labetalol HCl (Normodyne -) 100 mg PO BID [facility] Last Admin: 06/30/18 09:26 Dose: 100 mg Lisinopril (Prinivil) 40 mg PO DAILY [facility] Last Admin: 06/30/18 09:26 Dose: 40 mg Nifedipine (Procardia Xl -) 60 mg PO BID [facility] Last Admin: 06/30/18 09:26 Dose: 60 mg Ondansetron HCl (Zofran Injection) 4 mg IVPUSH Q6H PRN PRN Reason: NAUSEA AND/OR VOMITING Oxycodone HCl (Roxicodone -) 5 mg PO Q4H PRN PRN Reason: PAIN LEVEL 7-10 Last Admin: 06/30/18 10:43 Dose: 5 mg Sevelamer Carbonate (Renvela -) 800 mg PO TIDCM [facility] Last Admin: 06/30/18 11:41 Dose: Not Given - Objective Vital Signs: Vital Signs Temperature 97.9 F 06/30/18 11:20 Pulse Rate 65 06/30/18 11:55 Respiratory Rate 18 06/30/18 11:55 Blood Pressure 143/56 L 06/30/18 11:55 O2 Sat by Pulse Oximetry (%) 95 06/30/18 09:00 Constitutional: Yes: Calm Eyes: Yes: Conjunctiva Clear HENT: Yes: Atraumatic Neck: Yes: Supple Cardiovascular: Yes: S1, S2 Respiratory: Yes: CTA Bilaterally Gastrointestinal: Yes: Normal Bowel Sounds, Soft Genitourinary: Yes: WNL Edema: No Wound/Incision: Yes: Dressing Dry and Intact Neurological: Yes: Oriented Psychiatric: Yes: Oriented Labs: CBC, BMP 06/30/18 11:25 06/30/18 11:25 INR, PTT INR 1.25 (0.83-1.09) H 06/27/18 09:15 Problem List - Problems (1) ESRD (end stage renal disease) Code(s): N18.6 - END STAGE RENAL DISEASE (2) Gangrene Code(s): I96 - GANGRENE, NOT ELSEWHERE CLASSIFIED (3) PAD (peripheral artery disease) Code(s): I73.9 - PERIPHERAL VASCULAR DISEASE, UNSPECIFIED Assessment/Plan Current Medications Generic Name Dose Route Start Last Admin Trade Name Freq PRN Reason Stop Dose Admin Acetaminophen 650 mg 06/24/18 11:34 06/29/18 21:19 Tylenol - PO 650 mg QID PRN Administration PAIN 1-3 Acetaminophen 325 mg 06/24/18 15:09 06/25/18 00:50 Tylenol - PO 325 mg Q4H PRN Administration PAIN LEVEL 4 - 6 Aspirin 81 mg 06/25/18 10:00 06/30/18 09:26 Ecotrin - PO 81 mg DAILY [facility] Administration Atorvastatin Calcium 80 mg 06/24/18 22:00 06/29/18 21:20 Lipitor - PO 80 mg HS [facility] Administration Calcitriol 0.25 mcg 06/25/18 10:00 06/30/18 09:26 Rocaltrol - PO 0.25 mcg DAILY [facility] Administration Clopidogrel Bisulfate 75 mg 06/25/18 10:00 06/30/18 09:26 Plavix - PO 75 mg DAILY [facility] Administration Docusate Sodium 100 mg 06/25/18 14:00 06/30/18 05:49 Colace - PO Not Given TID [facility] Epoetin Thomas 12,000 unit 06/30/18 13:18 Procrit - IVPUSH 06/30/18 13:19 ONCE ONE Ferrous Sulfate 325 mg 06/25/18 13:15 06/30/18 09:26 Feosol - PO 325 mg BID [facility] Administration Furosemide 40 mg 06/25/18 10:00 06/30/18 09:26 Lasix - PO 40 mg DAILY [facility] Administration Hydralazine HCl 100 mg 06/24/18 14:00 06/30/18 05:49 Apresoline - PO 100 mg TID [facility] Administration Levofloxacin 250 mg in 50 mls @ 50 mls/hr 06/29/18 10:00 06/29/18 09:30 Levaquin 250 Mg Premixed Ivpb - IVPB 50 mls/hr Q2D@1000 [facility] Administration Protocol Sodium Chloride 250 mls @ 3,000 mls/hr 06/29/18 10:48 Normal Saline - IV 06/30/18 10:48 PRN PRN Hypotension during Dialysis Insulin Aspart 1 vial 06/24/18 16:30 06/30/18 11:00 Novolog Vial Sliding Scale - SQ 2 units TIDAC [facility] Administration Protocol Labetalol HCl 100 mg 06/24/18 22:00 06/30/18 09:26 Normodyne - PO 100 mg BID [facility] Administration Lisinopril 40 mg 06/25/18 10:00 06/30/18 09:26 Prinivil PO 40 mg DAILY [facility] Administration Nifedipine 60 mg 06/24/18 22:00 06/30/18 09:26 Procardia Xl - PO 60 mg BID [facility] Administration Ondansetron HCl 4 mg 06/24/18 12:12 Zofran Injection IVPUSH Q6H PRN NAUSEA AND/OR VOMITING Oxycodone HCl 5 mg 06/27/18 16:20 06/30/18 10:43 Roxicodone - PO 5 mg Q4H PRN Administration PAIN LEVEL 7-10 Sevelamer Carbonate 800 mg 06/24/18 17:30 06/30/18 11:41 Renvela - PO Not Given TIDCM [facility] Impression 1. ESRD on HD 2. anemia 3. DM 4. HTN 5. toe infection/gangrene 6. PVD 7. revision tma and amputation 1st ray left foot Plan - pt getting HD today - epogen for anemia - monitor hg - abx per ID - cont wound care - pain is controlled - PO iron for now - avf 3:00 400 abf - renal diet - monitor bp
[2018-06-30] MEDS ORDERED: SODIUM CHLORIDE 250 ML IV PRN (14:11)
[2018-06-30] MEDS ORDERED: EPOETIN ALFA 2,000 UNIT/1 ML VIAL IVPUSH ONE (14:30)
[2018-06-30] MEDS ORDERED: EPOETIN ALFA 10,000 UNIT/1 ML VIAL IVPUSH ONE (14:30)
--- NOTE | 2018-06-30 18:00 | PN ---
Teaching Attending Note Name of Resident: Germania Herbert ATTENDING PHYSICIAN STATEMENT I saw and evaluated the patient. I reviewed the resident's note and discussed the case with the resident. I agree with the resident's findings and plan as documented. SUBJECTIVE: No complaints to me. He feels well. Concern from team regarding appearance of wound. OBJECTIVE: AAOx3, resting in bed RRR, CTAB dressing C/D/I; dark skin overlying post op site, sutures in NT ND +BS Trachea midline, no JVD ASSESSMENT AND PLAN: 1. Gangrene of L 3rd and 4th toes with Osteomyelitis -POD#3 S/P revision tma (Left toes 2-4) and amputation 1st ray left foot (06/24) ; s/p L TMA sparing great toe (06/11/18) -Continue current abx and wound care; followup with podiatry. Trend labs. Elucidate final abx course. 2. Anemia -S/P 3 units pRBC's (2 on 06/25, 1 on 06/26) -Likely blood loss anemia due to surgery -will continue to monitor, XF goal >7 3. ESRD on HD (MWF) -Nephro (Dr. Flaherty) consulted; continue to manage as per their service 4. CAD/PVD -Cont ASA/Plavix 5. HTN -Cont home dose nifedipine, hydralazine, lasix -Continue Lisinopril 40mg Daily -Continue Labetalol 100 mg BID 6. FEN -PO Fluids -Continue to monitor lytes -Diabetic/Renal diet 7. PPx -no heparin at this time per vascular
--- NOTE | 2018-06-30 18:53 | PN ---
Physical Exam: SUBJECTIVE: Patient seen and examined this morning. Continues to have 6-7/10, Constant, pulsating pain that is worse with movement, thus he has not been walking much. He has requested tylenol x1 overnight. he additionally says his appetite is poor. No acute events overnight as per nursing. Denies any fevers, chills, chest pain, SOB, nausea, vomiting. OBJECTIVE: Vital Signs Period Temp Pulse Resp BP Sys/Cole Pulse Ox Last 24 Hr 97.9 F-98.8 F 60-84 18-20 125-159/53-102 92-95 GENERAL: A&Ox3, NAD HEAD: NCAT ENT: Oropharynx clear without exudates, MMM NECK: supple, No JVD LUNGS: Breath sounds equal, clear to auscultation bilaterally, no wheezes HEART: Regular rate and rhythm, S1, S2, Systolic murmur at the LLSB ABDOMEN: Soft, nontender, nondistended, normoactive bowel sounds, no guarding EXTREMITIES: 2+ pulses, no edema. Dried, clean and intact Left foot external dressing. Sutures intact over revised TransMetartarsal amputation without any active drainage. Tenderness to palpation at the bases of metatarsals 1-3. Gross lower extremity sensation above the bandage site intact b/l. Dorsiflexion and Plantarflexion 4/5 b/l. NEUROLOGICAL: Cranial nerves II through XII grossly intact. Normal speech, gait not observed. Laboratory Results - last 24 hr 06/30/18 06/30/18 06/30/18 05:52 10:55 11:25 WBC 17.3 H RBC 2.61 L Hgb 7.9 L Hct 24.3 L MCV 93.3 MCH 30.4 MCHC 32.6 RDW 18.1 H Plt Count 269 MPV 8.9 Absolute Neuts (auto) 15.0 H Neutrophils % 86.5 H Lymphocytes % 3.7 L Monocytes % 8.5 Eosinophils % 1.0 Basophils % 0.3 Nucleated RBC % 0 Sodium Potassium Chloride Carbon Dioxide Anion Gap BUN Creatinine Creat Clearance w eGFR POC Glucometer 167 165 Random Glucose Calcium Phosphorus Magnesium Total Bilirubin AST ALT Alkaline Phosphatase Total Protein Albumin Blood Type Antibody Screen 06/30/18 06/30/18 06/30/18 11:25 11:25 16:31 WBC RBC Hgb Hct MCV MCH MCHC RDW Plt Count MPV Absolute Neuts (auto) Neutrophils % Lymphocytes % Monocytes % Eosinophils % Basophils % Nucleated RBC % Sodium 129 L Potassium 4.0 Chloride 93 L Carbon Dioxide 27 Anion Gap 9 BUN 48 H Creatinine 7.9 H* Creat Clearance w eGFR 6.80 POC Glucometer 137 Random Glucose 153 H Calcium 9.9 Phosphorus 4.0 Magnesium 2.4 Total Bilirubin 0.9 AST 43 H ALT 17 Alkaline Phosphatase 551 H Total Protein 6.9 Albumin 1.7 L Blood Type O POSITIVE Antibody Screen Negative Microbiology 06/27/18 17:30 Blood - Peripheral Venous Blood Culture - Preliminary NO GROWTH OBTAINED AFTER 72 HOURS, INCUBATION TO CONTINUE FOR 2 DAYS. 06/27/18 19:30 Blood - Peripheral Venous Blood Culture - Preliminary NO GROWTH OBTAINED AFTER 48 HOURS, INCUBATION TO CONTINUE FOR 3 DAYS. 06/24/18 10:44 Foot - Lt Transmetatarsal Amp Site Gram Stain - Final 06/24/18 10:44 Foot - Lt Transmetatarsal Amp Site Wound Culture - Final Aeromonas Hydrophilia Group 06/24/18 10:56 Foot - Lt Transmetatarsal Amp Site Gram Stain - Final 06/24/18 10:56 Foot - Lt Transmetatarsal Amp Site Wound Culture - Final Stenotrophomon.(X.)Maltophilia 06/05/18 11:10 Blood - Peripheral Venous Blood Culture - Final NO GROWTH AFTER 5 DAYS INCUBATION 06/05/18 11:10 Blood - Peripheral Venous Blood Culture - Final NO GROWTH AFTER 5 DAYS INCUBATION Active Medications Acetaminophen (Tylenol -) 650 mg PO QID PRN PRN Reason: PAIN 1-3 Last Admin: 06/29/18 21:19 Dose: 650 mg Acetaminophen (Tylenol -) 325 mg PO Q4H PRN PRN Reason: PAIN LEVEL 4 - 6 Last Admin: 06/25/18 00:50 Dose: 325 mg Aspirin (Ecotrin -) 81 mg PO DAILY [facility] Last Admin: 06/30/18 09:26 Dose: 81 mg Atorvastatin Calcium (Lipitor -) 80 mg PO HS [facility] Last Admin: 06/29/18 21:20 Dose: 80 mg Calcitriol (Rocaltrol -) 0.25 mcg PO DAILY [facility] Last Admin: 06/30/18 09:26 Dose: 0.25 mcg Clopidogrel Bisulfate (Plavix -) 75 mg PO DAILY [facility] Last Admin: 06/30/18 09:26 Dose: 75 mg Docusate Sodium (Colace -) 100 mg PO TID [facility] Last Admin: 06/30/18 15:01 Dose: Not Given Ferrous Sulfate (Feosol -) 325 mg PO BID [facility] Last Admin: 06/30/18 09:26 Dose: 325 mg Furosemide (Lasix -) 40 mg PO DAILY [facility] Last Admin: 06/30/18 09:26 Dose: 40 mg Hydralazine HCl (Apresoline -) 100 mg PO TID [facility] Last Admin: 06/30/18 14:57 Dose: 100 mg Levofloxacin (Levaquin 250 Mg Premixed Ivpb -) 250 mg in 50 mls @ 50 mls/hr IVPB Q2D@1000 [facility]; Protocol Last Admin: 06/29/18 09:30 Dose: 50 mls/hr Insulin Aspart (Novolog Vial Sliding Scale -) 1 vial SQ TIDAC [facility]; Protocol Last Admin: 06/30/18 16:48 Dose: Not Given Labetalol HCl (Normodyne -) 100 mg PO BID [facility] Last Admin: 06/30/18 09:26 Dose: 100 mg Lisinopril (Prinivil) 40 mg PO DAILY [facility] Last Admin: 06/30/18 09:26 Dose: 40 mg Nifedipine (Procardia Xl -) 60 mg PO BID [facility] Last Admin: 06/30/18 09:26 Dose: 60 mg Ondansetron HCl (Zofran Injection) 4 mg IVPUSH Q6H PRN PRN Reason: NAUSEA AND/OR VOMITING Oxycodone HCl (Roxicodone -) 5 mg PO Q4H PRN PRN Reason: PAIN LEVEL 7-10 Last Admin: 06/30/18 18:06 Dose: 5 mg Sevelamer Carbonate (Renvela -) 800 mg PO TIDCM [facility] Last Admin: 06/30/18 17:58 Dose: 800 mg IMAGING: -EKG: NORMAL SINUS RHYTHM, NONSPECIFIC T WAVE ABNORMALITY -EKG done (06/10) revealed new T-wave inversions in lateral leads, -Left Foot XRay (06/05): No fracture or osteomyelitis. -Left Foot XRay (06/12):Status post transmetatarsal amputation left second through fifth digits. Alignment maintained. -Left Foot XRay (06/26): Imaging reveals loss of bone density, heavy vascular calcifications and amputation of the toes with the metatarsal bases remain. There is some soft tissue swelling with bandage artifact. -CT ANGIOGRAM OF THE ABDOMEN AND PELVIS WITH BILATERAL LOWER EXTREMITY RUNOFFS: Predominant distal arterial disease suggestive of diabetic and/or nephrogenic vasculopathy. Predominant disease in the distal left popliteal and infrapopliteal arteries demonstrating interval improvement in flow and mild improvement in the degree of stenosis described on the prior exam, as described above. Essential flow to the foot is provided by the MIGUELITO. Peroneal artery is occluded and [employer] ADMINISTRATIVE OFFICER demonstrate short segmental occlusions with reconstitution of flow in the plantar artery which demonstrate robust flow. Flow is seen in the digital arteries. Predominant right infrapopliteal disease, as described above, grossly unchanged since the prior exam. Subcutaneous edema with mesenteric stranding possibly due to third spacing/anasarca. Under distended urinary bladder with suggestion of wall thickening. Correlate clinically for cystitis. -CXR: Since 05/14/2018 again noted is the large heart, sclerotic knob and prominent central markings. An acute process is not seen. ASSESSMENT/PLAN: 68 y/o M w/ PMHx CAD, [place], PVD, ESRD on HD (MWF), HTN, admitted for gangrene/ osteomyelitis of the left foot on 05/16, now presents with worsening pain and discoloration of the left 4th toe and blackening and pain of the 3rd toe 1. Gangrene of L 3rd and 4th toes with Osteomyelitis -POD#6 S/P revision tma (Left toes 2-4) and amputation 1st ray left foot (06/24) ; s/p L TMA sparing great toe (06/11/18) -Completed Zosyn course (06/11-06/26) -Continue Levaquin (06/27) -Pain control via Oxycodone -Podiatry (Dr. Garcia) consulted: Amputation on 06/11. Revised TMA on 06/24. -CTA noted as above -Pathology report s/p TMA on 06/24 noted -Dr. Paiz: TMA flap not viable. Will have podiatry evaluate pt in am. Will plan for BKA on sat. -ID (Dr. Reyez) consulted, appreciate rec's -Pt with post op surgical shoe -EKG done (06/10) revealed new T-wave inversions in lateral leads, case discussed with Dr. Wilkins--Pt is cleared to undergo LE surgery -Foot XRay pending 2. Anemia -S/P 3 units pRBC's (2 on 06/25, 1 on 06/26) -Likely blood loss anemia due to surgery -will continue to monitor, possibly giving 1 unit pRBCs during dialysis 3. ESRD on HD (MWF) -Nephro (Dr. Flaherty) consulted -Vascular evaluated fistula -Cont home Lasix, Sevelamer -Pt requesting blood draws with dialysis 4. CAD/PVD -Cont ASA/Plavix 5. HTN -Cont home dose nifedipine, hydralazine, lasix -Continue Lisinopril 40mg Daily -Continue Labetalol 100 mg BID 6. FEN -PO Fluids -Continue to monitor lytes -Diabetic/Renal diet 7. PPx -no heparin at this time per vascular Dispo: Will need PT eval prior to D/c Visit type - Emergency Visit Emergency Visit: Yes ED Registration Date: 06/05/18 Care time: The patient presented to the Emergency Department on the above date and was hospitalized for further evaluation of their emergent condition. - New Patient This patient is new to me today: No - Critical Care Critical Care patient: No - Discharge Referral Referred to [facility] Med P.C.: No
--- NOTE | 2018-06-30 19:13 | PN ---
Progress Note (short form) - Note Progress Note: Vascular surgery Pt seen and examined. S/P tma last week by podiatry. Called to evaluate pt. WBC is 17.5. DRessing changed - TMA flap not viable . spoke to pt at length with nurse as parts interpreter Explained to pt that his circulation in his foot is very bad. He would best benefit from left BKA. Please optimize pt. Will have podiatry evaluate pt in am. Will plan for BKA on sat. Kel Paiz DO Problem List - Problems (1) Gangrene of foot Code(s): I96 - GANGRENE, NOT ELSEWHERE CLASSIFIED (2) PAD (peripheral artery disease) Code(s): I73.9 - PERIPHERAL VASCULAR DISEASE, UNSPECIFIED (3) Diabetic foot infection Code(s): E11.628 - TYPE 2 DIABETES MELLITUS WITH OTHER SKIN COMPLICATIONS; L08.9 - LOCAL INFECTION OF THE SKIN AND SUBCUTANEOUS TISSUE, UNSP
[2018-06-30] MEDS: ATORVASTATIN CA 80 MG TABLET (FP) PO SCH (21:02)
[2018-06-30] MEDS: ACETAMINOPHEN 325 MG TABLET (FP) PO PRN (21:02)
[2018-06-30] MEDS ORDERED: PT OWN MED DRAWER 7, Y5N ONE (21:34)
[2018-07-01] MEDS: DOCUSATE SODIUM 100 MG CAPSULE (FP) PO SCH ×3 (06:16→21:32)
[2018-07-01] MEDS: hydrALAZINE HCL 50 MG TABLET (FP) PO SCH ×3 (06:16→21:30)
[2018-07-01] MEDS: INSULIN SLIDING SCALE (NOVOLOG) 1 VIAL SQ SCH ×3 (06:17→17:29)
[2018-07-01] MEDS: oxyCODONE HCL 5 MG TABLET PO PRN ×2 (06:21→12:14)
[2018-07-01] MEDS: FUROSEMIDE 40 MG TABLET (FP) PO SCH (09:17)
[2018-07-01] MEDS: CALCITRIOL 0.25 MCG CAPSULE (FP) PO SCH (09:17)
[2018-07-01] MEDS: LABETALOL HCL 100 MG TABLET (FP) PO SCH ×2 (09:17→21:31)
[2018-07-01] MEDS: CLOPIDOGREL BISULFATE 75 MG TABLET (FP) PO SCH (09:17)
[2018-07-01] MEDS: LISINOPRIL 20 MG TABLET (FP) PO SCH (09:17)
[2018-07-01] MEDS: FERROUS SO4 325 MG TABLET (FP) PO SCH ×2 (09:17→21:31)
[2018-07-01] MEDS: SEVELAMER CARBONATE 800 MG TAB (FP) PO SCH ×3 (09:18→17:29)
[2018-07-01] MEDS: ASPIRIN COATED 81 MG TABLET.EC PO SCH (09:18)
--- NOTE | 2018-07-01 09:38 | SPA.PREOP ---
- PRE-OP NOTE Dx: ESRD, left goot gangrene Planned Procedure: left below the knee amputation Surgeon: Chencho Last Vital Signs Temp Pulse Resp BP Pulse Ox 98.4 F 65 20 130/60 96 07/01/18 05:56 07/01/18 05:56 07/01/18 05:56 07/01/18 05:56 06/30/18 21:00 Lab Results WBC 17.3 K/mm3 (4.0-10.0) H 06/30/18 11:25 RBC 2.61 M/mm3 (4.00-5.60) L 06/30/18 11:25 Hgb 7.9 GM/dL (11.7-16.9) L 06/30/18 11:25 Hct 24.3 % (35.4-49) L 06/30/18 11:25 MCV 93.3 fl (80-96) 06/30/18 11:25 MCHC 32.6 g/dl (32.0-35.9) 06/30/18 11:25 RDW 18.1 % (11.9-15.9) H 06/30/18 11:25 Plt Count 269 K/MM3 (134-434) 06/30/18 11:25 Sodium 129 mmol/L (136-145) L 06/30/18 11:25 Potassium 4.0 mmol/L (3.5-5.1) 06/30/18 11:25 Chloride 93 mmol/L (98-107) L 06/30/18 11:25 Carbon Dioxide 27 mmol/L (21-32) 06/30/18 11:25 Anion Gap 9 MMOL/L (8-16) 06/30/18 11:25 BUN 48 mg/dL (7-18) H 06/30/18 11:25 Creatinine 7.9 mg/dL (0.55-1.3) H* 06/30/18 11:25 Random Glucose 153 mg/dL (74-106) H 06/30/18 11:25 Calcium 9.9 mg/dL (8.5-10.1) 06/30/18 11:25 Blood Type O POSITIVE 06/30/18 11:25 Antibody Screen Negative 06/30/18 11:25 INR 1.25 (0.83-1.09) H 06/27/18 09:15 - ASSESSMENT/PLAN 1. Make NPO after midnight except po meds 2. GI/DVT PPX 3. Medical optimization / clearance Problem List - Problems (1) Gangrene Assessment/Plan: s/p Left TMA with wound dehiscence Plan for left BKA tomorrow Case D/w Dr. Paiz and renal. Ordered 2 units PRBC today on hold for HD. Plan for HD session today and transfuse PRBC prior to the OR Npo after midnight Check h&h in the am Code(s): I96 - GANGRENE, NOT ELSEWHERE CLASSIFIED
[2018-07-01] MEDS: NIFEdipine E.R 60 MG TABLET (UD) PO SCH ×2 (10:05→21:30)
[2018-07-01] MEDS ORDERED: PT OWN MED DRAWER 7, Y5N ONE ×2 (11:12→21:01)
[2018-07-01] MEDS ORDERED: SODIUM CHLORIDE 250 ML IV PRN (12:07)
--- NOTE | 2018-07-01 12:07 | PN ---
Progress Note, Physician History of Present Illness: Pt seen and examined at bedside. He is awake and alert. He is scheduled for amputation tomorrow. - Current Medication List Current Medications: Active Medications Acetaminophen (Tylenol -) 650 mg PO QID PRN PRN Reason: PAIN 1-3 Last Admin: 06/30/18 21:02 Dose: 650 mg Acetaminophen (Tylenol -) 325 mg PO Q4H PRN PRN Reason: PAIN LEVEL 4 - 6 Last Admin: 06/25/18 00:50 Dose: 325 mg Atorvastatin Calcium (Lipitor -) 80 mg PO HS [facility] Last Admin: 06/30/18 21:02 Dose: 80 mg Calcitriol (Rocaltrol -) 0.25 mcg PO DAILY [facility] Last Admin: 07/01/18 09:17 Dose: 0.25 mcg Clopidogrel Bisulfate (Plavix -) 75 mg PO DAILY [facility] Last Admin: 07/01/18 09:17 Dose: 75 mg Docusate Sodium (Colace -) 100 mg PO TID [facility] Last Admin: 07/01/18 06:16 Dose: 100 mg Ferrous Sulfate (Feosol -) 325 mg PO BID [facility] Last Admin: 07/01/18 09:17 Dose: 325 mg Furosemide (Lasix -) 40 mg PO DAILY [facility] Last Admin: 07/01/18 09:17 Dose: 40 mg Hydralazine HCl (Apresoline -) 100 mg PO TID [facility] Last Admin: 07/01/18 06:16 Dose: 100 mg Levofloxacin (Levaquin 250 Mg Premixed Ivpb -) 250 mg in 50 mls @ 50 mls/hr IVPB Q2D@1000 [facility]; Protocol Last Admin: 07/01/18 09:18 Dose: 50 mls/hr Insulin Aspart (Novolog Vial Sliding Scale -) 1 vial SQ TIDAC [facility]; Protocol Last Admin: 07/01/18 11:04 Dose: Not Given Labetalol HCl (Normodyne -) 100 mg PO BID [facility] Last Admin: 07/01/18 09:17 Dose: 100 mg Lisinopril (Prinivil) 40 mg PO DAILY [facility] Last Admin: 07/01/18 09:17 Dose: 40 mg Nifedipine (Procardia Xl -) 60 mg PO BID [facility] Last Admin: 06/30/18 22:22 Dose: 60 mg Ondansetron HCl (Zofran Injection) 4 mg IVPUSH Q6H PRN PRN Reason: NAUSEA AND/OR VOMITING Oxycodone HCl (Roxicodone -) 5 mg PO Q4H PRN PRN Reason: PAIN LEVEL 7-10 Last Admin: 07/01/18 06:21 Dose: 5 mg Sevelamer Carbonate (Renvela -) 800 mg PO TIDCM [facility] Last Admin: 07/01/18 11:24 Dose: 800 mg - Objective Vital Signs: Vital Signs Temperature 98.4 F 07/01/18 05:56 Pulse Rate 65 07/01/18 05:56 Respiratory Rate 20 07/01/18 05:56 Blood Pressure 130/60 07/01/18 05:56 O2 Sat by Pulse Oximetry (%) 96 06/30/18 21:00 Constitutional: Yes: Calm Eyes: Yes: Conjunctiva Clear HENT: Yes: Atraumatic Neck: Yes: Supple Cardiovascular: Yes: S1, S2 Respiratory: Yes: CTA Bilaterally Gastrointestinal: Yes: Soft Genitourinary: Yes: WNL Edema: No Wound/Incision: Yes: Dressing Dry and Intact Neurological: Yes: Oriented Psychiatric: Yes: Oriented Labs: CBC, BMP 06/30/18 11:25 06/30/18 11:25 INR, PTT INR 1.25 (0.83-1.09) H 06/27/18 09:15 Problem List - Problems (1) ESRD (end stage renal disease) Code(s): N18.6 - END STAGE RENAL DISEASE (2) Gangrene Code(s): I96 - GANGRENE, NOT ELSEWHERE CLASSIFIED (3) PAD (peripheral artery disease) Code(s): I73.9 - PERIPHERAL VASCULAR DISEASE, UNSPECIFIED Assessment/Plan Current Medications Generic Name Dose Route Start Last Admin Trade Name Freq PRN Reason Stop Dose Admin Acetaminophen 650 mg 06/24/18 11:34 06/30/18 21:02 Tylenol - PO 650 mg QID PRN Administration PAIN 1-3 Acetaminophen 325 mg 06/24/18 15:09 06/25/18 00:50 Tylenol - PO 325 mg Q4H PRN Administration PAIN LEVEL 4 - 6 Atorvastatin Calcium 80 mg 06/24/18 22:00 06/30/18 21:02 Lipitor - PO 80 mg HS [facility] Administration Calcitriol 0.25 mcg 06/25/18 10:00 07/01/18 09:17 Rocaltrol - PO 0.25 mcg DAILY [facility] Administration Clopidogrel Bisulfate 75 mg 06/25/18 10:00 07/01/18 09:17 Plavix - PO 75 mg DAILY [facility] Administration Docusate Sodium 100 mg 06/25/18 14:00 07/01/18 06:16 Colace - PO 100 mg TID [facility] Administration Ferrous Sulfate 325 mg 06/25/18 13:15 07/01/18 09:17 Feosol - PO 325 mg BID [facility] Administration Furosemide 40 mg 06/25/18 10:00 07/01/18 09:17 Lasix - PO 40 mg DAILY [facility] Administration Hydralazine HCl 100 mg 06/24/18 14:00 07/01/18 06:16 Apresoline - PO 100 mg TID [facility] Administration Levofloxacin 250 mg in 50 mls @ 50 mls/hr 06/29/18 10:00 07/01/18 09:18 Levaquin 250 Mg Premixed Ivpb - IVPB 50 mls/hr Q2D@1000 [facility] Administration Protocol Insulin Aspart 1 vial 06/24/18 16:30 07/01/18 11:04 Novolog Vial Sliding Scale - SQ Not Given TIDAC [facility] Protocol Labetalol HCl 100 mg 06/24/18 22:00 07/01/18 09:17 Normodyne - PO 100 mg BID [facility] Administration Lisinopril 40 mg 06/25/18 10:00 07/01/18 09:17 Prinivil PO 40 mg DAILY [facility] Administration Nifedipine 60 mg 06/24/18 22:00 06/30/18 22:22 Procardia Xl - PO 60 mg BID [facility] Administration Ondansetron HCl 4 mg 06/24/18 12:12 Zofran Injection IVPUSH Q6H PRN NAUSEA AND/OR VOMITING Oxycodone HCl 5 mg 06/27/18 16:20 07/01/18 06:21 Roxicodone - PO 5 mg Q4H PRN Administration PAIN LEVEL 7-10 Sevelamer Carbonate 800 mg 06/24/18 17:30 07/01/18 11:24 Renvela - PO 800 mg TIDCM [facility] Administration Impression 1. ESRD on HD 2. anemia 3. DM 4. HTN 5. toe infection/gangrene 6. PVD 7. revision tma and amputation 1st ray left foot Plan - spoke to vascular surgery, will arrange for HD today and give 2 units of prbc as requested - pt going to OR tomorrow - re-ordered am labs as they were cancelled - pt aware of plan - discussed with medical team - PO iron for now - avf 3:00 400 abf - renal diet - monitor bp
[2018-07-01 12:42] LABS: BASO % 0.4 % (0-2.0); EOS % 0.5 % (0-4.5); HEMATOCRIT 23.4 % (35.4-49); HEMOGLOBIN 7.8 GM/dL (11.7-16.9); MCH 30.8 pg (25.7-33.7); MCHC 33.2 g/dl (32.0-35.9); MEAN CELL VOLUME 92.9 fl (80-96); MEAN PLT VOLUME 8.8 fl (7.5-11.1); MONO % 11.4 % (3.8-10.2); NEUT % 81.7 % (42.8-82.8); PLATELET COUNT 274 K/MM3 (134-434); RBC 2.52 M/mm3 (4.00-5.60); WHITE BLOOD COUNT 14.5 K/mm3 (4.0-10.0)
[2018-07-01 13:13] LABS: INR 1.24 (0.83-1.09); PROTHROMBIN TIME (PATIENT) 14.7 SEC (9.7-13.0)
[2018-07-01 13:15] LABS: ACTIVATED PTT 44.5 SECONDS (25.2-36.5)
[2018-07-01 13:16] LABS: ALBUMIN 1.8 g/dl (3.4-5.0); ALK PHOS 599 U/L (45-117); ANION GAP 7 MMOL/L (8-16); BILIRUBIN,TOTAL 0.9 mg/dL (0.2-1); BLOOD UREA NITROGEN 27 mg/dL (7-18); CALCIUM 9.5 mg/dL (8.5-10.1); CHLORIDE 95 mmol/L (98-107); CO2 32 mmol/L (21-32); CREATININE 5.5 mg/dL (0.55-1.3); GLUCOSE,RANDOM 135 mg/dL (74-106); MAGNESIUM 2.2 mg/dL (1.8-2.4); PHOSPHOROUS 3.8 mg/dL (2.5-4.9); POTASSIUM 3.4 mmol/L (3.5-5.1); SGOT/AST 48 U/L (15-37); SGPT/ALT 19 U/L (13-61); SODIUM 134 mmol/L (136-145)
[2018-07-01 14:10] LABS: ERYTHROCYTE SEDIMENTATION RATE 129 mm/hr (0-20)
--- NOTE | 2018-07-01 14:38 | PN ---
Progress Note (short form) - Note Progress Note: pod #7. Patient seen in dialysis. No pain. vss, Tmax 99.2 +dry bandage, +retention sutures in place, +gangrenous flap plantar aspect, wbc =14.5, necrosed flap after revision of tma Dressing removed. Redressed with 4x4 guaze and estiven dressing. Patients and patient have already agreed after discussing with Dr. Paiz to a BKA. They are hopeful that this will solve all issues with his left leg and will heal uneventfully and require no further intervention. Advised them to make sure that he follows up with a manager compliance outpatient for his right foot. Discussed with Dr. Paiz and agree that taking into consideration his severe distal PVD and infection that this is currently his best option.
--- NOTE | 2018-07-01 17:49 | PN ---
Teaching Attending Note Name of Resident: Germania Herbert ATTENDING PHYSICIAN STATEMENT I saw and evaluated the patient. I reviewed the resident's note and discussed the case with the resident. I agree with the resident's findings and plan as documented. SUBJECTIVE: OBJECTIVE: VSS labs reviewed Back skin around surgical wound; outlined area of involvement yesterday and no spread. Some serosanguinous drainage No issues with HD site s/p TMA RRR s1/2 lung exam wnl, sym expansion ASSESSMENT AND PLAN: 1. Gangrene of L 3rd and 4th toes with Osteomyelitis -POD#3 S/P revision tma (Left toes 2-4) and amputation 1st ray left foot (06/24) ; s/p L TMA sparing great toe (06/11/18) -Continue current abx and wound care. Trend labs. Elucidate final abx course. -Flap was judged to be non-viable due to other issues per surgical services. Thus he will be going to a BKA tomorrow. Mabry score given the vascular and combined ortho nature @ 6%, RCRI indicates a Class II risk. He isn't an ideal candidate but the risks do outweigh the benefits. He will be optimized and transfused with HD per nephrology and dialyzed today. He will go to the OR tomorrow. Preop labs have been drawn. Thank for to the specialty services for their help in the ongoing management of this patient. 2. Anemia -S/P 3 units pRBC's (2 on 06/25, 1 on 06/26) -Transfusing pre-op; continue to monitor CBC transfusing PRN 3. ESRD on HD (MWF) -Nephro (Dr. Flaherty) consulted; continue to manage as per their service 4. CAD/PVD -Cont ASA/Plavix postoperatively when OK with sgy 5. HTN -Cont home dose nifedipine, hydralazine, lasix -Continue Lisinopril 40mg Daily -Continue Labetalol 100 mg BID 6. FEN -PO Fluids -Continue to monitor lytes -Diabetic/Renal diet Full Code
--- NOTE | 2018-07-01 18:52 | PN ---
Physical Exam: SUBJECTIVE: Patient seen and examined this morning. Continues to have pulsating pain at the surgical site. Requested tylenol x1 overnight. Denies any fevers, chills, chest pain, SOB, nausea, vomiting. OBJECTIVE: Vital Signs Period Temp Pulse Resp BP Sys/Cole Pulse Ox Last 24 Hr 98.4 F-99 F 60-76 18-20 130-160/56-88 96-96 GENERAL: A&Ox3, NAD HEAD: NCAT ENT: Oropharynx clear without exudates, MMM NECK: supple, No JVD LUNGS: Breath sounds equal, clear to auscultation bilaterally, no wheezes HEART: Regular rate and rhythm, S1, S2, Systolic murmur at the LLSB ABDOMEN: Soft, nontender, nondistended, normoactive bowel sounds, no guarding EXTREMITIES: 2+ pulses, no edema. Dried, clean and intact Left foot external dressing. Sutures intact over revised TransMetartarsal amputation without any active drainage. Tenderness to palpation at the bases of metatarsals 1-3. Gross lower extremity sensation above the bandage site intact b/l. Dorsiflexion and Plantarflexion 4/5 b/l. NEUROLOGICAL: Cranial nerves II through XII grossly intact. Normal speech, gait not observed. Laboratory Results - last 24 hr 06/30/18 06/30/18 07/01/18 11:25 21:00 06:12 WBC RBC Hgb Hct MCV MCH MCHC RDW Plt Count MPV Absolute Neuts (auto) Neutrophils % Lymphocytes % Monocytes % Eosinophils % Basophils % Nucleated RBC % ESR PT with INR INR PTT (Actin FS) Sodium Potassium Chloride Carbon Dioxide Anion Gap BUN Creatinine Creat Clearance w eGFR POC Glucometer 149 132 Random Glucose Calcium Phosphorus Magnesium Total Bilirubin AST ALT Alkaline Phosphatase C-Reactive Protein Total Protein Albumin Blood Type O POSITIVE Antibody Screen Negative Crossmatch See Detail 07/01/18 07/01/18 07/01/18 11:39 12:00 12:00 WBC RBC Hgb Hct MCV MCH MCHC RDW Plt Count MPV Absolute Neuts (auto) Neutrophils % Lymphocytes % Monocytes % Eosinophils % Basophils % Nucleated RBC % ESR PT with INR INR PTT (Actin FS) Sodium 134 L Potassium 3.4 L Chloride 95 L Carbon Dioxide 32 Anion Gap 7 L BUN 27 H Creatinine 5.5 H Creat Clearance w eGFR 10.33 POC Glucometer 143 Random Glucose 135 H Calcium 9.5 Phosphorus 3.8 Magnesium 2.2 Total Bilirubin 0.9 AST 48 H ALT 19 Alkaline Phosphatase 599 H C-Reactive Protein 25.4 H Total Protein 7.0 Albumin 1.8 L Blood Type O POSITIVE Antibody Screen Negative Crossmatch 07/01/18 07/01/18 12:00 12:00 WBC 14.5 H RBC 2.52 L Hgb 7.8 L Hct 23.4 L MCV 92.9 MCH 30.8 MCHC 33.2 RDW 18.0 H Plt Count 274 MPV 8.8 Absolute Neuts (auto) 11.9 H Neutrophils % 81.7 Lymphocytes % 6.0 L D Monocytes % 11.4 H Eosinophils % 0.5 Basophils % 0.4 Nucleated RBC % 0 ESR 129 H PT with INR 14.70 H INR 1.24 H PTT (Actin FS) 44.5 H Sodium Potassium Chloride Carbon Dioxide Anion Gap BUN Creatinine Creat Clearance w eGFR POC Glucometer Random Glucose Calcium Phosphorus Magnesium Total Bilirubin AST ALT Alkaline Phosphatase C-Reactive Protein Total Protein Albumin Blood Type Antibody Screen Crossmatch Microbiology 06/27/18 17:30 Blood - Peripheral Venous Blood Culture - Preliminary NO GROWTH OBTAINED AFTER 96 HOURS, INCUBATION TO CONTINUE FOR 1 DAYS. 06/27/18 19:30 Blood - Peripheral Venous Blood Culture - Preliminary NO GROWTH OBTAINED AFTER 72 HOURS, INCUBATION TO CONTINUE FOR 2 DAYS. 06/24/18 10:44 Foot - Lt Transmetatarsal Amp Site Gram Stain - Final 06/24/18 10:44 Foot - Lt Transmetatarsal Amp Site Wound Culture - Final Aeromonas Hydrophilia Group 06/24/18 10:56 Foot - Lt Transmetatarsal Amp Site Gram Stain - Final 06/24/18 10:56 Foot - Lt Transmetatarsal Amp Site Wound Culture - Final Stenotrophomon.(X.)Maltophilia 06/05/18 11:10 Blood - Peripheral Venous Blood Culture - Final NO GROWTH AFTER 5 DAYS INCUBATION 06/05/18 11:10 Blood - Peripheral Venous Blood Culture - Final NO GROWTH AFTER 5 DAYS INCUBATION Active Medications Acetaminophen (Tylenol -) 650 mg PO QID PRN PRN Reason: PAIN 1-3 Last Admin: 06/30/18 21:02 Dose: 650 mg Acetaminophen (Tylenol -) 325 mg PO Q4H PRN PRN Reason: PAIN LEVEL 4 - 6 Last Admin: 06/25/18 00:50 Dose: 325 mg Atorvastatin Calcium (Lipitor -) 80 mg PO HS [facility] Last Admin: 06/30/18 21:02 Dose: 80 mg Calcitriol (Rocaltrol -) 0.25 mcg PO DAILY [facility] Last Admin: 07/01/18 09:17 Dose: 0.25 mcg Docusate Sodium (Colace -) 100 mg PO TID [facility] Last Admin: 07/01/18 14:00 Dose: Not Given Ferrous Sulfate (Feosol -) 325 mg PO BID [facility] Last Admin: 07/01/18 09:17 Dose: 325 mg Furosemide (Lasix -) 40 mg PO DAILY [facility] Last Admin: 07/01/18 09:17 Dose: 40 mg Hydralazine HCl (Apresoline -) 100 mg PO TID [facility] Last Admin: 07/01/18 13:44 Dose: 100 mg Levofloxacin (Levaquin 250 Mg Premixed Ivpb -) 250 mg in 50 mls @ 50 mls/hr IVPB Q2D@1000 [facility]; Protocol Last Admin: 07/01/18 09:18 Dose: 50 mls/hr Sodium Chloride (Normal Saline -) 250 mls @ 3,000 mls/hr IV PRN PRN PRN Reason: Hypotension during Dialysis Stop: 07/02/18 12:07 Insulin Aspart (Novolog Vial Sliding Scale -) 1 vial SQ TIDAC [facility]; Protocol Last Admin: 07/01/18 17:29 Dose: 2 units Labetalol HCl (Normodyne -) 100 mg PO BID [facility] Last Admin: 07/01/18 09:17 Dose: 100 mg Lisinopril (Prinivil) 40 mg PO DAILY [facility] Last Admin: 07/01/18 09:17 Dose: 40 mg Nifedipine (Procardia Xl -) 60 mg PO BID [facility] Last Admin: 07/01/18 10:05 Dose: 60 mg Ondansetron HCl (Zofran Injection) 4 mg IVPUSH Q6H PRN PRN Reason: NAUSEA AND/OR VOMITING Oxycodone HCl (Roxicodone -) 5 mg PO Q4H PRN PRN Reason: PAIN LEVEL 7-10 Last Admin: 07/01/18 12:14 Dose: 5 mg Sevelamer Carbonate (Renvela -) 800 mg PO TIDCM [facility] Last Admin: 07/01/18 17:29 Dose: 800 mg IMAGING: -EKG: NORMAL SINUS RHYTHM, NONSPECIFIC T WAVE ABNORMALITY -EKG done (06/10) revealed new T-wave inversions in lateral leads, -Left Foot XRay (06/05): No fracture or osteomyelitis. -Left Foot XRay (06/12):Status post transmetatarsal amputation left second through fifth digits. Alignment maintained. -Left Foot XRay (06/26): Imaging reveals loss of bone density, heavy vascular calcifications and amputation of the toes with the metatarsal bases remain. There is some soft tissue swelling with bandage artifact. -CT ANGIOGRAM OF THE ABDOMEN AND PELVIS WITH BILATERAL LOWER EXTREMITY RUNOFFS: Predominant distal arterial disease suggestive of diabetic and/or nephrogenic vasculopathy. Predominant disease in the distal left popliteal and infrapopliteal arteries demonstrating interval improvement in flow and mild improvement in the degree of stenosis described on the prior exam, as described above. Essential flow to the foot is provided by the MIGUELITO. Peroneal artery is occluded and [employer]ER demonstrate short segmental occlusions with reconstitution of flow in the plantar artery which demonstrate robust flow. Flow is seen in the digital arteries. Predominant right infrapopliteal disease, as described above, grossly unchanged since the prior exam. Subcutaneous edema with mesenteric stranding possibly due to third spacing/anasarca. Under distended urinary bladder with suggestion of wall thickening. Correlate clinically for cystitis. -CXR: Since 05/14/2018 again noted is the large heart, sclerotic knob and prominent central markings. An acute process is not seen. ASSESSMENT/PLAN: 68 y/o M w/ PMHx CAD, [place], PVD, ESRD on HD (MWF), HTN, admitted for gangrene/ osteomyelitis of the left foot on 05/16, now presents with worsening pain and discoloration of the left 4th toe and blackening and pain of the 3rd toe 1. Gangrene of L 3rd and 4th toes with Osteomyelitis -Planned BKA tomorrow as per Vascular surgery -POD#7 S/P revision tma (Left toes 2-4) and amputation 1st ray left foot (06/24) ; s/p L TMA sparing great toe (06/11/18) -Completed Zosyn course (06/11-06/26) -Continue Levaquin (06/27) -Pain control via Oxycodone -Podiatry (Dr. Garcia) consulted: Amputation on 06/11. Revised TMA on 06/24. -CTA noted as above -Pathology report s/p TMA on 06/24 noted -ID (Dr. Reyez) consulted, appreciate rec's -EKG done (06/10) revealed new T-wave inversions in lateral leads, case discussed with Dr. Wilkins--Pt is cleared to undergo LE surgery -Foot XRay pending 2. Anemia -S/P 3 units pRBC's (2 on 06/25, 1 on 06/26); 2 units pRBCs pending transfusion this evening during HD pre-operatively -Likely blood loss anemia due to surgery -will continue to monitor, possibly giving 1 unit pRBCs during dialysis 3. ESRD on HD (MWF) -Nephro (Dr. Flaherty) consulted -Vascular evaluated fistula -Cont home Lasix, Sevelamer -Pt requesting blood draws with dialysis 4. CAD/PVD -Cont ASA/Plavix 5. HTN -Cont home dose nifedipine, hydralazine, lasix -Continue Lisinopril 40mg Daily -Continue Labetalol 100 mg BID 6. FEN -PO Fluids -Continue to monitor lytes -Diabetic/Renal diet 7. PPx -no heparin at this time per vascular Dispo: Will need PT eval prior to D/c Visit type - Emergency Visit Emergency Visit: Yes ED Registration Date: 06/05/18 Care time: The patient presented to the Emergency Department on the above date and was hospitalized for further evaluation of their emergent condition. - New Patient This patient is new to me today: No - Critical Care Critical Care patient: No - Discharge Referral Referred to [facility] Med P.C.: No
[2018-07-01] MEDS: ATORVASTATIN CA 80 MG TABLET (FP) PO SCH (21:30)
[2018-07-01] MEDS: ACETAMINOPHEN 325 MG TABLET (FP) PO PRN (21:31)
--- NOTE | 2018-07-02 03:21 | FALL ---
Fall Exam - Event Witnessed fall: No Location of Fall: Patient Room Fall from: Bed - Pre-Fall Mental Status: Alert, Oriented Current Medications: Current Medications Generic Name Dose Route Start Last Admin Trade Name Freq PRN Reason Stop Dose Admin Acetaminophen 650 mg 06/24/18 11:34 07/01/18 21:31 Tylenol - PO 650 mg QID PRN Administration PAIN 1-3 Acetaminophen 325 mg 06/24/18 15:09 06/25/18 00:50 Tylenol - PO 325 mg Q4H PRN Administration PAIN LEVEL 4 - 6 Atorvastatin Calcium 80 mg 06/24/18 22:00 07/01/18 21:30 Lipitor - PO 80 mg HS [facility] Administration Calcitriol 0.25 mcg 06/25/18 10:00 07/01/18 09:17 Rocaltrol - PO 0.25 mcg DAILY [facility] Administration Docusate Sodium 100 mg 06/25/18 14:00 07/01/18 21:32 Colace - PO 100 mg TID [facility] Administration Ferrous Sulfate 325 mg 06/25/18 13:15 07/01/18 21:31 Feosol - PO 325 mg BID [facility] Administration Furosemide 40 mg 06/25/18 10:00 07/01/18 09:17 Lasix - PO 40 mg DAILY [facility] Administration Hydralazine HCl 100 mg 06/24/18 14:00 07/01/18 21:30 Apresoline - PO 100 mg TID [facility] Administration Levofloxacin 250 mg in 50 mls @ 50 mls/hr 06/29/18 10:00 07/01/18 09:18 Levaquin 250 Mg Premixed Ivpb - IVPB 50 mls/hr Q2D@1000 [facility] Administration Protocol Sodium Chloride 250 mls @ 3,000 mls/hr 07/01/18 12:07 Normal Saline - IV 07/02/18 12:07 PRN PRN Hypotension during Dialysis Insulin Aspart 1 vial 06/24/18 16:30 07/01/18 17:29 Novolog Vial Sliding Scale - SQ 2 units TIDAC [facility] Administration Protocol Labetalol HCl 100 mg 06/24/18 22:00 07/01/18 21:31 Normodyne - PO 100 mg BID [facility] Administration Lisinopril 40 mg 06/25/18 10:00 07/01/18 09:17 Prinivil PO 40 mg DAILY [facility] Administration Nifedipine 60 mg 06/24/18 22:00 07/01/18 21:30 Procardia Xl - PO 60 mg BID [facility] Administration Ondansetron HCl 4 mg 06/24/18 12:12 Zofran Injection IVPUSH Q6H PRN NAUSEA AND/OR VOMITING Oxycodone HCl 5 mg 06/27/18 16:20 07/01/18 12:14 Roxicodone - PO 5 mg Q4H PRN Administration PAIN LEVEL 7-10 Sevelamer Carbonate 800 mg 06/24/18 17:30 07/01/18 17:29 Renvela - PO 800 mg TIDCM [facility] Administration - Post-Fall Patient Outcome: Pain Only Exam Findings: No LOC. Pt complains of L knee pain, R-sided head pain, R hip pain. Vital Signs: Vital Signs Temperature 99.8 F H 07/01/18 21:39 Pulse Rate 72 07/01/18 21:39 Respiratory Rate 20 07/01/18 21:39 Blood Pressure 157/65 07/01/18 21:39 O2 Sat by Pulse Oximetry (%) 96 07/01/18 21:00 Identify factors for HIGH RISK for Head Injury: Known to have hit head (Per patient)
[2018-07-02] MEDS: DOCUSATE SODIUM 100 MG CAPSULE (FP) PO SCH ×3 (06:17→21:26)
[2018-07-02] MEDS: INSULIN SLIDING SCALE (NOVOLOG) 1 VIAL SQ SCH ×3 (06:17→17:11)
[2018-07-02] MEDS: hydrALAZINE HCL 50 MG TABLET (FP) PO SCH ×3 (06:20→21:25)
[2018-07-02 06:46] LABS: BASO % 0.4 % (0-2.0); EOS % 0.8 % (0-4.5); HEMATOCRIT 30.7 % (35.4-49); LYMPH % 5.6 % (8-40); MCH 28.7 pg (25.7-33.7); MCHC 32.5 g/dl (32.0-35.9); MEAN CELL VOLUME 88.4 fl (80-96); MEAN PLT VOLUME 8.5 fl (7.5-11.1); MONO % 10.3 % (3.8-10.2); NEUT % 82.9 % (42.8-82.8); PLATELET COUNT 257 K/MM3 (134-434); RBC 3.48 M/mm3 (4.00-5.60); RDW 19.3 % (11.9-15.9); WHITE BLOOD COUNT 15.3 K/mm3 (4.0-10.0)
[2018-07-02 08:01] LABS: MAGNESIUM 2.3 mg/dL (1.8-2.4); PHOSPHOROUS 2.8 mg/dL (2.5-4.9)
[2018-07-02] MEDS: SEVELAMER CARBONATE 800 MG TAB (FP) PO SCH ×3 (09:01→17:11)
[2018-07-02] MEDS: NIFEdipine E.R 60 MG TABLET (UD) PO SCH ×2 (10:19→21:25)
[2018-07-02] MEDS: CALCITRIOL 0.25 MCG CAPSULE (FP) PO SCH (10:19)
[2018-07-02] MEDS: FERROUS SO4 325 MG TABLET (FP) PO SCH ×2 (10:19→21:25)
[2018-07-02] MEDS: LABETALOL HCL 100 MG TABLET (FP) PO SCH (10:19)
[2018-07-02] MEDS: LISINOPRIL 20 MG TABLET (FP) PO SCH (10:19)
[2018-07-02] MEDS: FUROSEMIDE 40 MG TABLET (FP) PO SCH (10:20)
[2018-07-02] MEDS: oxyCODONE HCL 5 MG TABLET PO PRN ×2 (10:45→19:12)
[2018-07-02] MEDS ORDERED: PHYTONADIONE 5 MG TABLET PO ONE (12:00)
--- NOTE | 2018-07-02 12:32 | PN ---
Progress Note, Physician History of Present Illness: Pt seen and examined at bedside. He is awake and alert. He says he fell down last night. He hit the right side of his head. He is agitated that surgery is held. - Current Medication List Current Medications: Active Medications Acetaminophen (Tylenol -) 650 mg PO QID PRN PRN Reason: PAIN 1-3 Last Admin: 07/01/18 21:31 Dose: 650 mg Acetaminophen (Tylenol -) 325 mg PO Q4H PRN PRN Reason: PAIN LEVEL 4 - 6 Last Admin: 06/25/18 00:50 Dose: 325 mg Atorvastatin Calcium (Lipitor -) 80 mg PO HS [facility] Last Admin: 07/01/18 21:30 Dose: 80 mg Calcitriol (Rocaltrol -) 0.25 mcg PO DAILY [facility] Last Admin: 07/02/18 10:19 Dose: 0.25 mcg Docusate Sodium (Colace -) 100 mg PO TID [facility] Last Admin: 07/02/18 06:17 Dose: Not Given Ferrous Sulfate (Feosol -) 325 mg PO BID [facility] Last Admin: 07/02/18 10:19 Dose: 325 mg Furosemide (Lasix -) 40 mg PO DAILY [facility] Last Admin: 07/02/18 10:20 Dose: 40 mg Hydralazine HCl (Apresoline -) 100 mg PO TID [facility] Last Admin: 07/02/18 06:20 Dose: 100 mg Levofloxacin (Levaquin 250 Mg Premixed Ivpb -) 250 mg in 50 mls @ 50 mls/hr IVPB Q2D@1000 [facility]; Protocol Last Admin: 07/01/18 09:18 Dose: 50 mls/hr Sodium Chloride (Normal Saline -) 250 mls @ 3,000 mls/hr IV PRN PRN PRN Reason: Hypotension during Dialysis Stop: 07/02/18 12:07 Insulin Aspart (Novolog Vial Sliding Scale -) 1 vial SQ TIDAC [facility]; Protocol Last Admin: 07/02/18 06:17 Dose: Not Given Labetalol HCl (Normodyne -) 100 mg PO BID [facility] Last Admin: 07/02/18 10:19 Dose: 100 mg Lisinopril (Prinivil) 40 mg PO DAILY [facility] Last Admin: 07/02/18 10:19 Dose: 40 mg Nifedipine (Procardia Xl -) 60 mg PO BID [facility] Last Admin: 10/17/18 10:19 Dose: 60 mg Ondansetron HCl (Zofran Injection) 4 mg IVPUSH Q6H PRN PRN Reason: NAUSEA AND/OR VOMITING Oxycodone HCl (Roxicodone -) 5 mg PO Q4H PRN PRN Reason: PAIN LEVEL 7 - 10 Last Admin: 07/02/18 10:45 Dose: 5 mg Sevelamer Carbonate (Renvela -) 800 mg PO TIDCM [facility] Last Admin: 07/02/18 09:01 Dose: Not Given - Objective Vital Signs: Vital Signs Temperature 97.9 F 07/02/18 10:13 Pulse Rate 75 07/02/18 10:13 Respiratory Rate 20 07/02/18 10:13 Blood Pressure 177/76 H 07/02/18 10:13 O2 Sat by Pulse Oximetry (%) 95 07/02/18 09:00 Constitutional: Yes: Calm Eyes: Yes: Conjunctiva Clear Cardiovascular: Yes: S1, S2 Respiratory: Yes: CTA Bilaterally Gastrointestinal: Yes: Soft Genitourinary: Yes: WNL Musculoskeletal: Yes: Other (dressing in place) Edema: No Neurological: Yes: Oriented Psychiatric: Yes: Oriented Labs: CBC, BMP 07/02/18 06:00 07/01/18 12:00 INR, PTT INR 1.24 (0.83-1.09) H 07/01/18 12:00 Problem List - Problems (1) ESRD (end stage renal disease) Code(s): N18.6 - END STAGE RENAL DISEASE (2) Gangrene Code(s): I96 - GANGRENE, NOT ELSEWHERE CLASSIFIED (3) PAD (peripheral artery disease) Code(s): I73.9 - PERIPHERAL VASCULAR DISEASE, UNSPECIFIED Assessment/Plan Current Medications Generic Name Dose Route Start Last Admin Trade Name Freq PRN Reason Stop Dose Admin Acetaminophen 650 mg 06/24/18 11:34 07/01/18 21:31 Tylenol - PO 650 mg QID PRN Administration PAIN 1-3 Acetaminophen 325 mg 06/24/18 15:09 06/25/18 00:50 Tylenol - PO 325 mg Q4H PRN Administration PAIN LEVEL 4 - 6 Atorvastatin Calcium 80 mg 06/24/18 22:00 07/01/18 21:30 Lipitor - PO 80 mg HS [facility] Administration Calcitriol 0.25 mcg 06/25/18 10:00 07/02/18 10:19 Rocaltrol - PO 0.25 mcg DAILY [facility] Administration Docusate Sodium 100 mg 06/25/18 14:00 07/02/18 06:17 Colace - PO Not Given TID [facility] Ferrous Sulfate 325 mg 06/25/18 13:15 07/02/18 10:19 Feosol - PO 325 mg BID [facility] Administration Furosemide 40 mg 06/25/18 10:00 07/02/18 10:20 Lasix - PO 40 mg DAILY [facility] Administration Hydralazine HCl 100 mg 06/24/18 14:00 07/02/18 06:20 Apresoline - PO 100 mg TID [facility] Administration Levofloxacin 250 mg in 50 mls @ 50 mls/hr 06/29/18 10:00 07/01/18 09:18 Levaquin 250 Mg Premixed Ivpb - IVPB 50 mls/hr Q2D@1000 [facility] Administration Protocol Sodium Chloride 250 mls @ 3,000 mls/hr 07/01/18 12:07 Normal Saline - IV 07/02/18 12:07 PRN PRN Hypotension during Dialysis Insulin Aspart 1 vial 06/24/18 16:30 07/02/18 06:17 Novolog Vial Sliding Scale - SQ Not Given TIDAC [facility] Protocol Labetalol HCl 100 mg 06/24/18 22:00 07/02/18 10:19 Normodyne - PO 100 mg BID [facility] Administration Lisinopril 40 mg 06/25/18 10:00 07/02/18 10:19 Prinivil PO 40 mg DAILY [facility] Administration Nifedipine 60 mg 06/24/18 22:00 07/02/18 10:19 Procardia Xl - PO 60 mg BID [facility] Administration Ondansetron HCl 4 mg 06/24/18 12:12 Zofran Injection IVPUSH Q6H PRN NAUSEA AND/OR VOMITING Oxycodone HCl 5 mg 07/02/18 10:21 07/02/18 10:45 Roxicodone - PO 5 mg Q4H PRN Administration PAIN LEVEL 7 - 10 Sevelamer Carbonate 800 mg 06/24/18 17:30 07/02/18 09:01 Renvela - PO Not Given TIDCM [facility] Selected Entries 07/01/18 07/01/18 07/01/18 14:40 15:10 15:40 Blood Pressure 156/71 156/77 159/59 L 07/01/18 07/01/18 07/01/18 16:10 16:15 21:34 Blood Pressure 142/56 L 145/60 155/81 07/01/18 07/02/18 21:39 02:40 Blood Pressure 157/65 136/68 Impression 1. ESRD on HD 2. anemia 3. DM 4. HTN 5. toe infection/gangrene 6. PVD 7. revision tma and amputation 1st ray left foot Plan - surgery will be held - resume bp meds and monitor blood pressure - pt being transferred to monitored setting - next HD tomorrow - neuro eval - cont wound care - discussed with medical team - PO iron for now - avf 3:00 400 abf - renal diet - monitor bp
[2018-07-02] MEDS ORDERED: PT OWN MED DRAWER 7, Y5N ONE ×3 (12:56→15:04)
--- NOTE | 2018-07-02 13:13 | PN ---
Teaching Attending Note Name of Resident: Linda Agrawal ATTENDING PHYSICIAN STATEMENT I saw and evaluated the patient. I reviewed the resident's note and discussed the case with the resident. I agree with the resident's findings and plan as documented with exceptions below. SUBJECTIVE: Patient seen and examined, oriented to person/place (per daughter is his baseline), reports pain in the left foot. Mild headache but improved, no new complaints. OBJECTIVE: Vital Signs Period Temp Pulse Resp BP Sys/Cole Pulse Ox Last 24 Hr 97.9 F-99.8 F 60-75 18-20 127-188/56-81 95-96 Intake & Output 06/29/18 06/30/18 07/01/18 07/02/18 23:59 23:59 23:59 23:59 Intake Total 370 750 Balance 370 750 General: sitting in bed in no acute distress Neuro: AAOx2, power 5/5, power 5/5, facial symmetry, tongue midline, EOMI, PERRL , no pronator drift, sensory exam limited Abdomen:Soft, NT, ND Abdomen:Soft Left TMA dressing clean Home Medications Medication Instructions Recorded Sevelamer HCl [Renagel] 800 mg PO TIDCM 05/16/18 Aspirin Coated [Ecotrin -] 81 mg PO DAILY #30 tablet.ec 05/27/18 Atorvastatin Ca [Lipitor] 20 mg PO HS #30 tablet 05/27/18 Calcitriol [Calcitriol -] 0.25 mcg PO DAILY #30 capsule 05/27/18 Clopidogrel Bisulfate [Plavix -] 75 mg PO DAILY #30 tablet 05/27/18 Furosemide [Lasix -] 40 mg PO DAILY #30 tablet 05/27/18 Hydralazine HCl 100 mg PO TID #90 tablet 05/27/18 Nifedipine ER [Procardia XL -] 60 mg PO BID #60 tab.er.24 05/27/18 Acetaminophen [Tylenol] 650 mg PO QID PRN 06/05/18 Active Medications Acetaminophen (Tylenol -) 650 mg PO QID PRN PRN Reason: PAIN 1-3 Last Admin: 07/01/18 21:31 Dose: 650 mg Acetaminophen (Tylenol -) 325 mg PO Q4H PRN PRN Reason: PAIN LEVEL 4 - 6 Last Admin: 06/25/18 00:50 Dose: 325 mg Atorvastatin Calcium (Lipitor -) 80 mg PO HS [facility] Last Admin: 07/01/18 21:30 Dose: 80 mg Calcitriol (Rocaltrol -) 0.25 mcg PO DAILY [facility] Last Admin: 07/02/18 10:19 Dose: 0.25 mcg Docusate Sodium (Colace -) 100 mg PO TID [facility] Last Admin: 07/02/18 06:17 Dose: Not Given Ferrous Sulfate (Feosol -) 325 mg PO BID [facility] Last Admin: 07/02/18 10:19 Dose: 325 mg Furosemide (Lasix -) 40 mg PO DAILY [facility] Last Admin: 07/02/18 10:20 Dose: 40 mg Hydralazine HCl (Apresoline -) 100 mg PO TID [facility] Last Admin: 07/02/18 06:20 Dose: 100 mg Levofloxacin (Levaquin 250 Mg Premixed Ivpb -) 250 mg in 50 mls @ 50 mls/hr IVPB Q2D@1000 [facility]; Protocol Last Admin: 07/01/18 09:18 Dose: 50 mls/hr Sodium Chloride (Normal Saline -) 250 mls @ 3,000 mls/hr IV PRN PRN PRN Reason: Hypotension during Dialysis Stop: 07/02/18 12:07 Insulin Aspart (Novolog Vial Sliding Scale -) 1 vial SQ TIDAC [facility]; Protocol Last Admin: 07/02/18 12:52 Dose: Not Given Labetalol HCl (Normodyne -) 100 mg PO BID [facility] Last Admin: 07/02/18 10:19 Dose: 100 mg Lisinopril (Prinivil) 40 mg PO DAILY [facility] Last Admin: 07/02/18 10:19 Dose: 40 mg Nifedipine (Procardia Xl -) 60 mg PO BID [facility] Last Admin: 07/02/18 10:19 Dose: 60 mg Ondansetron HCl (Zofran Injection) 4 mg IVPUSH Q6H PRN PRN Reason: NAUSEA AND/OR VOMITING Oxycodone HCl (Roxicodone -) 5 mg PO Q4H PRN PRN Reason: PAIN LEVEL 7 - 10 Last Admin: 07/02/18 10:45 Dose: 5 mg Sevelamer Carbonate (Renvela -) 800 mg PO TIDCM [facility] Last Admin: 07/02/18 09:01 Dose: Not Given Laboratory Results - last 24 hr 06/30/18 07/01/18 07/01/18 11:25 12:00 12:00 WBC RBC Hgb Hct MCV MCH MCHC RDW Plt Count MPV Absolute Neuts (auto) Neutrophils % Lymphocytes % Monocytes % Eosinophils % Basophils % Nucleated RBC % ESR PT with INR INR PTT (Actin FS) Sodium 134 L Potassium 3.4 L Chloride 95 L Carbon Dioxide 32 Anion Gap 7 L BUN 27 H Creatinine 5.5 H Creat Clearance w eGFR 10.33 POC Glucometer Random Glucose 135 H Calcium 9.5 Phosphorus 3.8 Magnesium 2.2 Total Bilirubin 0.9 AST 48 H ALT 19 Alkaline Phosphatase 599 H C-Reactive Protein 25.4 H Total Protein 7.0 Albumin 1.8 L Stool Occult Blood Blood Type O POSITIVE O POSITIVE Antibody Screen Negative Negative Crossmatch See Detail 07/01/18 07/01/18 07/01/18 12:00 12:00 17:00 WBC RBC Hgb Hct MCV MCH MCHC RDW Plt Count MPV Absolute Neuts (auto) Neutrophils % Lymphocytes % Monocytes % Eosinophils % Basophils % Nucleated RBC % ESR 129 H PT with INR 14.70 H INR 1.24 H PTT (Actin FS) 44.5 H Sodium Potassium Chloride Carbon Dioxide Anion Gap BUN Creatinine Creat Clearance w eGFR POC Glucometer 151 Random Glucose Calcium Phosphorus Magnesium Total Bilirubin AST ALT Alkaline Phosphatase C-Reactive Protein Total Protein Albumin Stool Occult Blood Blood Type Antibody Screen Crossmatch 07/01/18 07/02/18 07/02/18 21:27 05:30 06:00 WBC 15.3 H RBC 3.48 L Hgb 10.0 L Hct 30.7 L D MCV 88.4 MCH 28.7 MCHC 32.5 RDW 19.3 H Plt Count 257 MPV 8.5 Absolute Neuts (auto) 12.7 H Neutrophils % 82.9 H Lymphocytes % 5.6 L Monocytes % 10.3 H Eosinophils % 0.8 Basophils % 0.4 Nucleated RBC % 0 ESR PT with INR INR PTT (Actin FS) Sodium Potassium Chloride Carbon Dioxide Anion Gap BUN Creatinine Creat Clearance w eGFR POC Glucometer 127 130 Random Glucose Calcium Phosphorus Magnesium Total Bilirubin AST ALT Alkaline Phosphatase C-Reactive Protein Total Protein Albumin Stool Occult Blood Blood Type Antibody Screen Crossmatch 07/02/18 07/02/18 07/02/18 06:00 11:18 12:50 WBC RBC Hgb Hct MCV MCH MCHC RDW Plt Count MPV Absolute Neuts (auto) Neutrophils % Lymphocytes % Monocytes % Eosinophils % Basophils % Nucleated RBC % ESR PT with INR INR PTT (Actin FS) Sodium Potassium Chloride Carbon Dioxide Anion Gap BUN Creatinine Creat Clearance w eGFR POC Glucometer 108 Random Glucose Calcium Phosphorus 2.8 Magnesium 2.3 Total Bilirubin AST ALT Alkaline Phosphatase C-Reactive Protein Total Protein Albumin Stool Occult Blood Positive Blood Type Antibody Screen Crossmatch CT brain x2 results noted. ASSESSMENT AND PLAN: 68 y/o man with h/o CAD, recent PR, PVD, ESRD on HD, HTN, HLP, Hep B , DM, and recent admission for L 4th toe gangrene and OM, s/p angiogram, atherectomy and angioplasty, who presented with increased pain in foot and change in L 3rd toe color. He was found to have a gangrenous 3rd and 4th toes -Acute/subacute 7 mm left thalamic intraparenchymal haemorrhage -Mechanical fall -Left 3rd/4th toe gangrene with osteomyelitis,S/P revision tma (Left toes 2-4) and amputation 1st ray left foot (06/24); s/p L TMA sparing great toe (06/11/18) -Anemia of chronic disease s/p 3 u PRBC pre-op -ESRD on HD -HTN Plan: Overnight events noted. repeat CT head stable. Neuro checks, transfer to stroke tele. Close BP monitoring, continue nifedipine/hydralazine/labetalol/lasix/ lisinopril. Neurology/neurosurgery input. Hold ASA/plavix. INR noted, Vitamin K 10 mg PO x 1. Levaquin per ID. Surgical plans of hold today given aboe. H/h appropriate response. Renal input appreciated, HD per renal Resume PO. Diabetic/renal diet. DVTPPX with SCDs Dispo pending clinical improvement. Plan discussed with patient and daughter at bedside in detail, all questions answered.
[2018-07-02] MEDS ORDERED: LABETALOL HCL 5 MG/1 ML (100MG/20 ML VIAL) IVPUSH ONE (13:52)
[2018-07-02] MEDS ORDERED: VANCOMYCIN 500 MG in DEXTROSE 5%-WATER - 100 ML IVPB ONE (15:00)
[2018-07-02] MEDS ORDERED: LABETALOL HCL 5 MG/1 ML (100MG/20 ML VIAL) IVPB ONE (16:15)
[2018-07-02] MEDS ORDERED: LABETALOL HCL 5 MG/1 ML (100MG/20 ML VIAL) IVPUSH PRN (17:29)
[2018-07-02] MEDS ORDERED: ACETAMINOPHEN 325 MG TABLET (FP) PO PRN (17:35)
[2018-07-02] MEDS ORDERED: ONDANSETRON 4 MG/2 ML VIAL IVPUSH PRN (17:35)
[2018-07-02] MEDS ORDERED: SODIUM CHLORIDE 250 ML IV PRN (17:35)
[2018-07-02] MEDS ORDERED: EPOETIN ALFA 2,000 UNIT/1 ML VIAL IVPUSH ONE ×2 (17:35)
--- NOTE | 2018-07-02 18:41 | PN ---
Physical Exam: SUBJECTIVE: Patient seen and examined this morning s/p Fall overnight. Patient was lying comfortably in bed, complaining of pain over the surgical site. Additionally he experiences a mild headache that has decreased in intensity. Denies any fevers, chills, chest pain, SOB, nausea, vomiting. OBJECTIVE: Vital Signs Period Temp Pulse Resp BP Sys/Cole Pulse Ox Last 24 Hr 97.9 F-99.8 F 64-75 16-20 127-188/58-81 95-96 GENERAL: A&Ox3, NAD, lying in bed comfortably HEAD: NCAT EYES: L eye non-reactive s/p cataract surgery. R eye wnl. EOMI. ENT: Oropharynx clear without exudates, MMM NECK: supple, No JVD LUNGS: Breath sounds equal, clear to auscultation bilaterally, no wheezes HEART: Regular rate and rhythm, S1, S2, Systolic murmur at the LLSB ABDOMEN: Soft, nontender, nondistended, normoactive bowel sounds, no guarding EXTREMITIES: 2+ pulses, no edema. Dried, clean and intact Left foot external dressing. Sutures intact over revised TransMetartarsal amputation without any active drainage. Tenderness to palpation at the bases of metatarsals 1-3. Gross lower extremity sensation above the bandage site intact b/l. Dorsiflexion and Plantarflexion 4/5 b/l. 5/5 muscle strength for b/l Hip flexion. Gross UE sensation intact b/l. NEUROLOGICAL: Cranial nerves II through XII grossly intact. Normal speech. Laboratory Results - last 24 hr 07/02/18 07/02/18 07/02/18 06:00 06:00 11:18 WBC 15.3 H RBC 3.48 L Hgb 10.0 L Hct 30.7 L D MCV 88.4 MCH 28.7 MCHC 32.5 RDW 19.3 H Plt Count 257 MPV 8.5 Absolute Neuts (auto) 12.7 H Neutrophils % 82.9 H Lymphocytes % 5.6 L Monocytes % 10.3 H Eosinophils % 0.8 Basophils % 0.4 Nucleated RBC % 0 POC Glucometer Phosphorus 2.8 Magnesium 2.3 Stool Occult Blood Positive Microbiology 06/27/18 19:30 Blood - Peripheral Venous Blood Culture - Preliminary NO GROWTH OBTAINED AFTER 96 HOURS, INCUBATION TO CONTINUE FOR 1 DAYS. 06/27/18 17:30 Blood - Peripheral Venous Blood Culture - Preliminary NO GROWTH OBTAINED AFTER 96 HOURS, INCUBATION TO CONTINUE FOR 1 DAYS. 06/24/18 10:44 Foot - Lt Transmetatarsal Amp Site Gram Stain - Final 06/24/18 10:44 Foot - Lt Transmetatarsal Amp Site Wound Culture - Final Aeromonas Hydrophilia Group 06/24/18 10:56 Foot - Lt Transmetatarsal Amp Site Gram Stain - Final 06/24/18 10:56 Foot - Lt Transmetatarsal Amp Site Wound Culture - Final Stenotrophomon.(X.)Maltophilia 06/05/18 11:10 Blood - Peripheral Venous Blood Culture - Final NO GROWTH AFTER 5 DAYS INCUBATION 06/05/18 11:10 Blood - Peripheral Venous Blood Culture - Final NO GROWTH AFTER 5 DAYS INCUBATION Active Medications Acetaminophen (Tylenol -) 650 mg PO QID PRN PRN Reason: PAIN 1-3 Acetaminophen (Tylenol -) 325 mg PO Q4H PRN PRN Reason: PAIN LEVEL 4 - 6 Atorvastatin Calcium (Lipitor -) 80 mg PO HS [facility] Calcitriol (Rocaltrol -) 0.25 mcg PO DAILY [facility] Docusate Sodium (Colace -) 100 mg PO TID [facility] Ferrous Sulfate (Feosol -) 325 mg PO BID [facility] Furosemide (Lasix -) 40 mg PO DAILY [facility] Hydralazine HCl (Apresoline -) 100 mg PO TID [facility] Sodium Chloride (Normal Saline -) 250 mls @ 3,000 mls/hr IV PRN PRN PRN Reason: Hypotension during Dialysis Levofloxacin (Levaquin 250 Mg Premixed Ivpb -) 250 mg in 50 mls @ 50 mls/hr IVPB Q2D@1000 [facility]; Protocol Insulin Aspart (Novolog Vial Sliding Scale -) 1 vial SQ TIDAC [facility]; Protocol Labetalol HCl (Normodyne Injection -) 20 mg IVPUSH Q4H PRN PRN Reason: HYPERTENSION Labetalol HCl (Normodyne -) 100 mg PO BID [facility] Lisinopril (Prinivil) 40 mg PO DAILY [facility] Nifedipine (Procardia Xl -) 60 mg PO BID [facility] Ondansetron HCl (Zofran Injection) 4 mg IVPUSH Q6H PRN PRN Reason: NAUSEA AND/OR VOMITING Oxycodone HCl (Roxicodone -) 5 mg PO Q4H PRN PRN Reason: PAIN LEVEL 7 - 10 Last Admin: 07/02/18 10:45 Dose: 5 mg Sevelamer Carbonate (Renvela -) 800 mg PO TIDCM [facility] IMAGING: -EKG: NORMAL SINUS RHYTHM, NONSPECIFIC T WAVE ABNORMALITY -EKG done (06/10) revealed new T-wave inversions in lateral leads, -Left Foot XRay (06/05): No fracture or osteomyelitis. -Left Foot XRay (06/12):Status post transmetatarsal amputation left second through fifth digits. Alignment maintained. -Left Foot XRay (06/26): Imaging reveals loss of bone density, heavy vascular calcifications and amputation of the toes with the metatarsal bases remain. There is some soft tissue swelling with bandage artifact. -CT ANGIOGRAM OF THE ABDOMEN AND PELVIS WITH BILATERAL LOWER EXTREMITY RUNOFFS: Predominant distal arterial disease suggestive of diabetic and/or nephrogenic vasculopathy. Predominant disease in the distal left popliteal and infrapopliteal arteries demonstrating interval improvement in flow and mild improvement in the degree of stenosis described on the prior exam, as described above. Essential flow to the foot is provided by the MIGUELITO. Peroneal artery is occluded and CONVERTER OPERATOR demonstrate short segmental occlusions with reconstitution of flow in the plantar artery which demonstrate robust flow. Flow is seen in the digital arteries. Predominant right infrapopliteal disease, as described above, grossly unchanged since the prior exam. Subcutaneous edema with mesenteric stranding possibly due to third spacing/anasarca. Under distended urinary bladder with suggestion of wall thickening. Correlate clinically for cystitis. -CXR: Since 05/14/2018 again noted is the large heart, sclerotic knob and prominent central markings. An acute process is not seen. -R Hip XRay: Within the limitation of examination, the visualized osseous structures appear intact, no acute bony abnormalities are seen. -L Knee XRay: No acute fracture is seen. No evidence of suprapatellar joint effusion. Vascular calcifications. -Head CT Without contrast (07/02 @ 03:15): Approximately 5.9 mm x 3.6 mm x 4.4 mm acute hemorrhage measuring approximately 59 HU along the lateral aspect of the left thalamus, adjacent velasco radiata with mild peripharyngeal edema, The location of the hemorrhage likely related to hypertension. Clinical correlation. No CT evidence of acute territorial ischemic changes. No evidence of subarachnoid hemorrhage. No evidence of acute subdural, epidural hematoma. No evidence of skull fracture -Head CT Without contrast (07/02 @ 08:32): Stable approximately 7 mm focal acute /subacute hemorrhage in the left thalamus, laterally. ASSESSMENT/PLAN: 68 y/o M w/ PMHx CAD, GA, PVD, ESRD on HD (MWF), HTN, admitted for gangrene/ osteomyelitis of the left foot on 05/16, now presents with worsening pain and discoloration of the left 4th toe and blackening and pain of the 3rd toe 1. Mechanical fall -Transfer to Stroke [place] -NeuroChecks Q4H -R Hip XRay: No acute bony abnormalities are seen -L Knee XRay: No acute fracture is seen. -Head CT Without contrast (07/02 @ 03:15): Approximately 5.9 mm x 3.6 mm x 4.4 mm acute hemorrhage measuring approximately 59 HU along the lateral aspect of the left thalamus, adjacent velasco radiata with mild peripharyngeal edema -Head CT Without contrast (07/02 @ 08:32): Stable approximately 7 mm focal acute /subacute hemorrhage in the left thalamus, laterally. -Neurology (Dr. Claire) consulted -Neurosurgery (Dr. Espinoza) was contacted by the overnight team -ASA/Plavix held -Brain MRI pending 2. HTN -Has been becoming Hypertensive s/p mechanical fall -Cont home dose nifedipine, hydralazine, lasix -Continue Lisinopril, Labetalol -Started Labetalol 20 mg Q4H PRN for SBP >170 -Will need close BP monitoring overnight 3. Gangrene of L 3rd and 4th toes with Osteomyelitis -Planned BKA today has been held given fall overnight and HTN -POD#8 S/P revision tma (Left toes 2-4) and amputation 1st ray left foot (06/24) ; s/p L TMA sparing great toe (06/11/18) -Completed Zosyn course (06/11-06/26) -Continue Levaquin (06/27) -Pain control via Oxycodone -Podiatry (Dr. Garcia) consulted: Amputation on 06/11. Revised TMA on 06/24. -CTA noted as above -Pathology report s/p TMA on 06/24 noted -ID (Dr. Reyez) consulted, appreciate rec's -EKG done (06/10) revealed new T-wave inversions in lateral leads, case discussed with Dr. Wilkins--Pt is cleared to undergo LE surgery -Foot XRay pending -Resumed Renal/Diabetic diet today 4. Anemia -S/P 5 units pRBC's (2 on 07/01, 2 on 06/25, 1 on 06/26), Appropriate H&H response -Likely blood loss anemia due to surgery -will continue to monitor, possibly giving 1 unit pRBCs during dialysis 5. ESRD on HD (MWF) -Nephro (Dr. Flaherty) consulted -Vascular evaluated fistula -Cont home Lasix, Sevelamer -Pt requesting blood draws with dialysis 6. CAD/PVD -ASA/Plavix held 7. FEN -PO Fluids -Continue to monitor lytes -Diabetic/Renal diet 8. PPx -no heparin at this time per vascular Dispo: Will need PT eval prior to D/c Visit type - Emergency Visit Emergency Visit: Yes ED Registration Date: 06/05/18 Care time: The patient presented to the Emergency Department on the above date and was hospitalized for further evaluation of their emergent condition. - New Patient This patient is new to me today: No - Critical Care Critical Care patient: No - Discharge Referral Referred to [facility] Med P.C.: No
[2018-07-02] MEDS: ACETAMINOPHEN 325 MG TABLET (FP) PO PRN (19:13)
[2018-07-02] MEDS: ATORVASTATIN CA 80 MG TABLET (FP) PO SCH (21:26)
[2018-07-02] MEDS ORDERED: LABETALOL HCL 100 MG TABLET (FP) PO SCH (22:00)
--- NOTE | 2018-07-02 22:31 | CONSULT ---
Consult - text type - Consultation Consultation Note: NEUROLOGY CONSULTATION is greatly appreciated: This 68 yo RH man with h/o HTN, DM. Chol, ASHD, PVD and ESRD is on HD TIW. Multiple meds but no anticoagulants. Admitted for gangrenous toes on left, s/p amputations 06/24. Fell attempting to ambulate this 3 AM. Claims he was confused. Found seated on the floor beside his bed without evidence of head trauma. With BP's up to 188/71. Given Labetalol + c/o head ache, now resolved. CT of head x 2 (reviewed); Moderate, diffuse atrophy and scattered microvascular changes. Small left internal capsule hemorrhage (<1 cm). No mass effect. SOILA: No Montesinos's signs or evidence of external head trauma. Left foot bandaged. -/- [place]. NEURO: Awake, alert, cooperative. [facility], 2017 No frontal release findings No facial asymmetry Mild right drift and reduced Romeo. Areflexic in legs. Decreased vibration to the distal calves. IMP: Mild left cerebral dysfunction. Small left Internal capsule bleed much more likely due to systolic hypertension then possible head trauma. Diabetic Peripheral neuropathy. Plan: Check B12, TSH. Control systolic BP No specific neuro Rx. Continue current management Thank you very much, Fransisco Claire MD
[2018-07-03] MEDS: oxyCODONE HCL 5 MG TABLET PO PRN ×2 (01:33→09:50)
[2018-07-03] MEDS: ACETAMINOPHEN 325 MG TABLET (FP) PO PRN ×2 (01:34→09:55)
[2018-07-03] MEDS: hydrALAZINE HCL 50 MG TABLET (FP) PO SCH ×3 (05:15→21:24)
[2018-07-03] MEDS: DOCUSATE SODIUM 100 MG CAPSULE (FP) PO SCH ×3 (05:15→21:24)
[2018-07-03] MEDS: INSULIN SLIDING SCALE (NOVOLOG) 1 VIAL SQ SCH ×3 (06:54→17:22)
--- NOTE | 2018-07-03 07:20 | PN ---
Teaching Attending Note Name of Resident: Linda Agrawal ATTENDING PHYSICIAN STATEMENT I saw and evaluated the patient. I reviewed the resident's note and discussed the case with the resident. I agree with the resident's findings and plan as documented with exceptions below. SUBJECTIVE: Patient seen and examined, denies any pain headache, chest pain, palpitations, dyspnea or concerns. AAOx3, appropriate in responses and follows commands OBJECTIVE: Vital Signs Period Temp Pulse Resp BP Sys/Cole Pulse Ox Last 24 Hr 97.7 F-98.8 F 63-75 16-20 129-188/53-76 95-98 Intake & Output 06/30/18 07/01/18 07/02/18 07/03/18 23:59 23:59 23:59 23:59 Intake Total 750 60 60 Balance 750 60 60 General; sitting in bed in no acute distress Chest: CTAB, no rales or wheezing Abdomen: soft, NT, ND, positive bowel sounds Extremities: Left TMA with dressing no active discharge or bleeding noted Neuro: AAOx3, co-operative, power 5/5, facial symmetry, tongue midline, EOMI, PERRL, non focal exam, no new concerns, no pronator drift Active Medications Acetaminophen (Tylenol -) 650 mg PO QID PRN PRN Reason: PAIN 1-3 Acetaminophen (Tylenol -) 325 mg PO Q4H PRN PRN Reason: PAIN LEVEL 4 - 6 Last Admin: 07/03/18 01:34 Dose: 325 mg Atorvastatin Calcium (Lipitor -) 80 mg PO HS [facility] Last Admin: 07/02/18 21:26 Dose: 80 mg Calcitriol (Rocaltrol -) 0.25 mcg PO DAILY [facility] Docusate Sodium (Colace -) 100 mg PO TID [facility] Last Admin: 07/03/18 05:15 Dose: Not Given Ferrous Sulfate (Feosol -) 325 mg PO BID [facility] Last Admin: 07/02/18 21:25 Dose: 325 mg Furosemide (Lasix -) 40 mg PO DAILY [facility] Hydralazine HCl (Apresoline -) 100 mg PO TID [facility] Last Admin: 07/03/18 05:15 Dose: 100 mg Sodium Chloride (Normal Saline -) 250 mls @ 3,000 mls/hr IV PRN PRN PRN Reason: Hypotension during Dialysis Levofloxacin (Levaquin 250 Mg Premixed Ivpb -) 250 mg in 50 mls @ 50 mls/hr IVPB Q2D@1000 [facility]; Protocol Insulin Aspart (Novolog Vial Sliding Scale -) 1 vial SQ TIDAC [facility]; Protocol Last Admin: 07/03/18 06:54 Dose: Not Given Labetalol HCl (Normodyne Injection -) 20 mg IVPUSH Q4H PRN PRN Reason: HYPERTENSION Labetalol HCl (Normodyne -) 100 mg PO BID [facility] Last Admin: 07/02/18 21:25 Dose: 100 mg Lisinopril (Prinivil) 40 mg PO DAILY [facility] Nifedipine (Procardia Xl -) 60 mg PO BID [facility] Last Admin: 07/02/18 21:25 Dose: 60 mg Ondansetron HCl (Zofran Injection) 4 mg IVPUSH Q6H PRN PRN Reason: NAUSEA AND/OR VOMITING Oxycodone HCl (Roxicodone -) 5 mg PO Q4H PRN PRN Reason: PAIN LEVEL 7 - 10 Last Admin: 07/03/18 01:33 Dose: 5 mg Sevelamer Carbonate (Renvela -) 800 mg PO TIDCM [facility] ASSESSMENT AND PLAN: 68 y/o man with h/o CAD, recent CT, PVD, ESRD on HD, HTN, HLP, Hep B , DM, and recent admission for L 4th toe gangrene and OM, s/p angiogram, atherectomy and angioplasty, who presented with increased pain in foot and change in L 3rd toe color. He was found to have a gangrenous 3rd and 4th toes -Acute/subacute 7 mm left thalamic intraparenchymal haemorrhage, suspect HTN related rather than traumatic -Mechanical fall -Left 3rd/4th toe gangrene with osteomyelitis,S/P revision tma (Left toes 2-4) and amputation 1st ray left foot (06/24); s/p L TMA sparing great toe (06/11/18) -Anemia of chronic disease s/p 3 u PRBC pre-op -ESRD on HD -HTN Plan: Mental status at baseline, neuro exam non concerning. Neurology input noted. MRI brain noted. BP control. Increase labetalol to 200 mg BID. Continue nifedipine/hydralazine/lasix/lisinopril. Neurology/neurosurgery input. Hold ASA/plavix. INR noted, s/p vitamin K 5 mg PO x 1. Levaquin/vanco per ID. Possible surgical plans in 24-48 hours if no new concerns and BP stable. H/h appropriate response. Renal input appreciated, HD per renal, labs with HD. Diabetic/renal diet. DVTPPX with SCDs Dispo pending clinical improvement. Plan discussed with patient, all questions answered.
[2018-07-03] MEDS: SEVELAMER CARBONATE 800 MG TAB (FP) PO SCH ×3 (09:51→17:22)
[2018-07-03] MEDS: FERROUS SO4 325 MG TABLET (FP) PO SCH ×2 (09:51→21:24)
[2018-07-03] MEDS: LISINOPRIL 20 MG TABLET (FP) PO SCH (09:57)
[2018-07-03 09:58] LABS: ANION GAP 13 MMOL/L (8-16); BLOOD UREA NITROGEN 19 mg/dL (7-18); CALCIUM 10.5 mg/dL (8.5-10.1); CHLORIDE 98 mmol/L (98-107); CO2 29 mmol/L (21-32); CREATININE 4.4 mg/dL (0.55-1.3); GLUCOSE,RANDOM 108 mg/dL (74-106); POTASSIUM 3.2 mmol/L (3.5-5.1); SODIUM 139 mmol/L (136-145)
[2018-07-03] MEDS: NIFEdipine E.R 60 MG TABLET (UD) PO SCH ×2 (09:58→21:24)
[2018-07-03] MEDS: FUROSEMIDE 40 MG TABLET (FP) PO SCH (09:58)
[2018-07-03] MEDS ORDERED: LABETALOL HCL 100 MG TABLET (FP) PO SCH (10:00)
[2018-07-03] MEDS: CALCITRIOL 0.25 MCG CAPSULE (FP) PO SCH (10:03)
[2018-07-03] MEDS ORDERED: PT OWN MED DRAWER 7, Y5N ONE (10:03)
[2018-07-03] MEDS ORDERED: LABETALOL HCL 100 MG TABLET (FP) PO ONE (10:06)
--- NOTE | 2018-07-03 11:44 | PN ---
Physical Exam: SUBJECTIVE: Patient seen and examined this morning. Request pain meds x2 overnight. Currently not having any headache. Denies any fevers, chills, chest pain, SOB, nausea, vomiting. OBJECTIVE: Vital Signs Period Temp Pulse Resp BP Sys/Cole Pulse Ox Last 24 Hr 97.7 F-98.6 F 63-70 16-20 129-176/53-67 96-98 GENERAL: A&Ox3, NAD, lying in bed comfortably HEAD: NCAT EYES: L eye non-reactive s/p cataract surgery. R eye wnl. EOMI. ENT: Oropharynx clear without exudates, MMM NECK: supple, No JVD LUNGS: Breath sounds equal, clear to auscultation bilaterally, no wheezes HEART: Regular rate and rhythm, S1, S2, Systolic murmur at the LLSB ABDOMEN: Soft, nontender, nondistended, normoactive bowel sounds, no guarding EXTREMITIES: 2+ pulses, no edema. Dried, clean and intact Left foot external dressing. Sutures intact over revised TransMetartarsal amputation without any active drainage. Tenderness to palpation at the bases of metatarsals 1-3. Gross lower extremity sensation intact b/l. Dorsiflexion and Plantarflexion 4/5 b/l. 5 /5 muscle strength for b/l Hip flexion. Gross UE sensation intact b/l. NEUROLOGICAL: Cranial nerves II through XII grossly intact. Normal speech. Laboratory Results - last 24 hr 07/02/18 07/02/18 07/02/18 06:00 11:18 12:50 Sodium 139 Potassium 3.2 L Chloride 98 Carbon Dioxide 29 Anion Gap 13 BUN 19 H Creatinine 4.4 H Creat Clearance w eGFR 13.36 POC Glucometer 108 Random Glucose 108 H Calcium 10.5 H Phosphorus 2.8 Magnesium 2.3 Stool Occult Blood Positive Microbiology 06/27/18 19:30 Blood - Peripheral Venous Blood Culture - Final NO GROWTH AFTER 5 DAYS INCUBATION 06/27/18 17:30 Blood - Peripheral Venous Blood Culture - Final NO GROWTH AFTER 5 DAYS INCUBATION 06/24/18 10:44 Foot - Lt Transmetatarsal Amp Site Gram Stain - Final 06/24/18 10:44 Foot - Lt Transmetatarsal Amp Site Wound Culture - Final Aeromonas Hydrophilia Group 06/24/18 10:56 Foot - Lt Transmetatarsal Amp Site Gram Stain - Final 06/24/18 10:56 Foot - Lt Transmetatarsal Amp Site Wound Culture - Final Stenotrophomon.(X.)Maltophilia 06/05/18 11:10 Blood - Peripheral Venous Blood Culture - Final NO GROWTH AFTER 5 DAYS INCUBATION 06/05/18 11:10 Blood - Peripheral Venous Blood Culture - Final NO GROWTH AFTER 5 DAYS INCUBATION Active Medications Acetaminophen (Tylenol -) 650 mg PO QID PRN PRN Reason: PAIN 1-3 Acetaminophen (Tylenol -) 325 mg PO Q4H PRN PRN Reason: PAIN LEVEL 4 - 6 Last Admin: 07/03/18 09:55 Dose: 325 mg Atorvastatin Calcium (Lipitor -) 80 mg PO HS [facility] Last Admin: 07/02/18 21:26 Dose: 80 mg Calcitriol (Rocaltrol -) 0.25 mcg PO DAILY [facility] Last Admin: 07/03/18 10:03 Dose: 0.25 mcg Docusate Sodium (Colace -) 100 mg PO TID [facility] Last Admin: 07/03/18 05:15 Dose: Not Given Ferrous Sulfate (Feosol -) 325 mg PO BID [facility] Last Admin: 07/03/18 09:51 Dose: 325 mg Furosemide (Lasix -) 40 mg PO DAILY [facility] Last Admin: 07/03/18 09:58 Dose: 40 mg Hydralazine HCl (Apresoline -) 100 mg PO TID [facility] Last Admin: 07/03/18 05:15 Dose: 100 mg Sodium Chloride (Normal Saline -) 250 mls @ 3,000 mls/hr IV PRN PRN PRN Reason: Hypotension during Dialysis Levofloxacin (Levaquin 250 Mg Premixed Ivpb -) 250 mg in 50 mls @ 50 mls/hr IVPB Q2D@1000 [facility]; Protocol Last Admin: 07/03/18 09:51 Dose: 50 mls/hr Insulin Aspart (Novolog Vial Sliding Scale -) 1 vial SQ TIDAC [facility]; Protocol Last Admin: 07/03/18 06:54 Dose: Not Given Labetalol HCl (Normodyne Injection -) 20 mg IVPUSH Q4H PRN PRN Reason: HYPERTENSION Labetalol HCl (Normodyne -) 200 mg PO BID [facility] Lisinopril (Prinivil) 40 mg PO DAILY [facility] Last Admin: 07/03/18 09:57 Dose: 40 mg Nifedipine (Procardia Xl -) 60 mg PO BID [facility] Last Admin: 07/03/18 09:58 Dose: 60 mg Ondansetron HCl (Zofran Injection) 4 mg IVPUSH Q6H PRN PRN Reason: NAUSEA AND/OR VOMITING Oxycodone HCl (Roxicodone -) 5 mg PO Q4H PRN PRN Reason: PAIN LEVEL 7 - 10 Last Admin: 07/03/18 09:50 Dose: 5 mg Sevelamer Carbonate (Renvela -) 800 mg PO TIDCM [facility] Last Admin: 07/03/18 09:51 Dose: 800 mg IMAGING: -EKG: NORMAL SINUS RHYTHM, NONSPECIFIC T WAVE ABNORMALITY -EKG done (06/10) revealed new T-wave inversions in lateral leads, -Left Foot XRay (06/05): No fracture or osteomyelitis. -Left Foot XRay (06/12):Status post transmetatarsal amputation left second through fifth digits. Alignment maintained. -Left Foot XRay (06/26): Imaging reveals loss of bone density, heavy vascular calcifications and amputation of the toes with the metatarsal bases remain. There is some soft tissue swelling with bandage artifact. -CT ANGIOGRAM OF THE ABDOMEN AND PELVIS WITH BILATERAL LOWER EXTREMITY RUNOFFS: Predominant distal arterial disease suggestive of diabetic and/or nephrogenic vasculopathy. Predominant disease in the distal left popliteal and infrapopliteal arteries demonstrating interval improvement in flow and mild improvement in the degree of stenosis described on the prior exam, as described above. Essential flow to the foot is provided by the MIGUELITO. Peroneal artery is occluded and MANAGER BALANCE demonstrate short segmental occlusions with reconstitution of flow in the plantar artery which demonstrate robust flow. Flow is seen in the digital arteries. Predominant right infrapopliteal disease, as described above, grossly unchanged since the prior exam. Subcutaneous edema with mesenteric stranding possibly due to third spacing/anasarca. Under distended urinary bladder with suggestion of wall thickening. Correlate clinically for cystitis. -CXR: Since 05/14/2018 again noted is the large heart, sclerotic knob and prominent central markings. An acute process is not seen. -R Hip XRay: Within the limitation of examination, the visualized osseous structures appear intact, no acute bony abnormalities are seen. -L Knee XRay: No acute fracture is seen. No evidence of suprapatellar joint effusion. Vascular calcifications. -Head CT Without contrast (07/02 @ 03:15): Approximately 5.9 mm x 3.6 mm x 4.4 mm acute hemorrhage measuring approximately 59 HU along the lateral aspect of the left thalamus, adjacent velasco radiata with mild peripharyngeal edema, The location of the hemorrhage likely related to hypertension. Clinical correlation. No CT evidence of acute territorial ischemic changes. No evidence of subarachnoid hemorrhage. No evidence of acute subdural, epidural hematoma. No evidence of skull fracture -Head CT Without contrast (07/02 @ 08:32): Stable approximately 7 mm focal acute /subacute hemorrhage in the left thalamus, laterally. -MRI Brain: There is no evidence of abnormal restricted diffusion in the brain to suggest acute or subacute infarction. On T2 gradient heme sensitive images, low signal lesion lateral to the left thalamus measuring 6.5 mm x 9.2 mm with blossoming affect, mild brain edema manifested by increased signal intensity on T2, FLAIR sequences. The lesion may represent cavernoma with recent hemorrhage. On T2 gradient echo heme sensitive images, lesion of low signal intensity measuring 6.7 mm x 4.9 mm is observed in the left mid darby. 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 No evidence of supratentorial white matter microangiopathic ischemic changes, gliosis. ASSESSMENT/PLAN: 68 y/o M w/ PMHx CAD, VA, PVD, ESRD on HD (MWF), HTN, admitted for gangrene/ osteomyelitis of the left foot on 05/16, now presents with worsening pain and discoloration of the left 4th toe and blackening and pain of the 3rd toe 1. Mechanical fall -Neurological exam unchanged, Currently at baseline mental status -Stroke Tele -R Hip XRay: No acute bony abnormalities are seen -L Knee XRay: No acute fracture is seen. -Head CT Without contrast (07/02 @ :15): Approximately 5.9 mm x 3.6 mm x 4.4 mm acute hemorrhage measuring approximately 59 HU along the lateral aspect of the left thalamus, adjacent velasco radiata with mild peripharyngeal edema -Head CT Without contrast (07/02 @ 08:32): Stable approximately 7 mm focal acute /subacute hemorrhage in the left thalamus, laterally. -MRI Brain: There is no evidence of abnormal estricted diffusion in the brain to suggest acute or subacute infarction. The lesion may represent cavernoma with recent hemorrhage. 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 -Neurology (Dr. Claire) consulted, Appreciate rec's, Check B12, TSH, Control SBP -Neurosurgery (Dr. Espinoza) was contacted by the overnight team -ASA/Plavix held 2. HTN -BP better controlled -Cont home dose nifedipine, hydralazine, lasix -Continue Lisinopril -Labetalol dose changed to 200 BID 3. Gangrene of L 3rd and 4th toes with Osteomyelitis -BKA scheduled for 07/04 -POD#9 S/P revision tma (Left toes 2-4) and amputation 1st ray left foot (06/24) ; s/p L TMA sparing great toe (06/11/18) -Completed Zosyn course (06/11-06/26) -Continue Levaquin (06/27) -Pain control via Oxycodone -Podiatry (Dr. Garcia) consulted: Amputation on 06/11. Revised TMA on 06/24. -CTA noted as above -Pathology report s/p TMA on 06/24 noted -ID (Dr. Reyez) consulted, appreciate rec's -EKG done (06/10) revealed new T-wave inversions in lateral leads, case discussed with Dr. Solo--Pt is cleared to undergo LE surgery 4. Anemia -S/P 5 units pRBC's (2 on 07/01, 2 on 06/25, 1 on 06/26), Appropriate H&H response -Likely blood loss anemia due to surgery -will continue to monitor, possibly giving 1 unit pRBCs during dialysis 5. ESRD on HD (MWF) -Nephro (Dr. Flaherty) consulted -Vascular evaluated fistula -Cont home Lasix, Sevelamer -Pt requesting blood draws with dialysis 6. CAD/PVD -ASA/Plavix held 7. FEN -PO Fluids -Continue to monitor lytes -Diabetic/Renal diet 8. PPx -no heparin at this time per vascular Dispo: Will need PT eval prior to D/c; BKA scheduled for 07/04 Visit type - Emergency Visit Emergency Visit: Yes ED Registration Date: 06/05/18 Care time: The patient presented to the Emergency Department on the above date and was hospitalized for further evaluation of their emergent condition. - New Patient This patient is new to me today: No - Critical Care Critical Care patient: No - Discharge Referral Referred to [facility] No
[2018-07-03] MEDS ORDERED: SODIUM CHLORIDE 250 ML IV PRN (12:21)
[2018-07-03 13:37] LABS: BASO % 0.4 % (0-2.0); EOS % 1.2 % (0-4.5); HEMATOCRIT 30.2 % (35.4-49); HEMOGLOBIN 9.6 GM/dL (11.7-16.9); LYMPH % 6.7 % (8-40); MCH 28.4 pg (25.7-33.7); MEAN CELL VOLUME 88.7 fl (80-96); MEAN PLT VOLUME 8.4 fl (7.5-11.1); MONO % 5.8 % (3.8-10.2); NEUT % 85.9 % (42.8-82.8); PLATELET COUNT 248 K/MM3 (134-434); RDW 19.4 % (11.9-15.9)
[2018-07-03 14:09] LABS: ALBUMIN 1.7 g/dl (3.4-5.0); ALK PHOS 565 U/L (45-117); ANION GAP 9 MMOL/L (8-16); BILIRUBIN,TOTAL 0.8 mg/dL (0.2-1); BLOOD UREA NITROGEN 29 mg/dL (7-18); CALCIUM 9.4 mg/dL (8.5-10.1); CHLORIDE 98 mmol/L (98-107); CO2 30 mmol/L (21-32); CREATININE 5.3 mg/dL (0.55-1.3); GLUCOSE,RANDOM 151 mg/dL (74-106); MAGNESIUM 2.2 mg/dL (1.8-2.4); PHOSPHOROUS 3.2 mg/dL (2.5-4.9); POTASSIUM 3.3 mmol/L (3.5-5.1); SGOT/AST 59 U/L (15-37); SGPT/ALT 22 U/L (13-61); SODIUM 137 mmol/L (136-145); TOT PROT 6.8 g/dl (6.4-8.2)
--- NOTE | 2018-07-03 16:29 | PN ---
Progress Note, Physician History of Present Illness: Pt seen and examined at bedside. He is tolerating HD. - Current Medication List Current Medications: Active Medications Acetaminophen (Tylenol -) 650 mg PO QID PRN PRN Reason: PAIN 1-3 Acetaminophen (Tylenol -) 325 mg PO Q4H PRN PRN Reason: PAIN LEVEL 4 - 6 Last Admin: 07/03/18 09:55 Dose: 325 mg Atorvastatin Calcium (Lipitor -) 80 mg PO HS [facility] Last Admin: 07/02/18 21:26 Dose: 80 mg Calcitriol (Rocaltrol -) 0.25 mcg PO DAILY [facility] Last Admin: 07/03/18 10:03 Dose: 0.25 mcg Docusate Sodium (Colace -) 100 mg PO TID [facility] Last Admin: 07/03/18 05:15 Dose: Not Given Ferrous Sulfate (Feosol -) 325 mg PO BID [facility] Last Admin: 07/03/18 09:51 Dose: 325 mg Furosemide (Lasix -) 40 mg PO DAILY [facility] Last Admin: 07/03/18 09:58 Dose: 40 mg Hydralazine HCl (Apresoline -) 100 mg PO TID [facility] Last Admin: 07/03/18 05:15 Dose: 100 mg Levofloxacin (Levaquin 250 Mg Premixed Ivpb -) 250 mg in 50 mls @ 50 mls/hr IVPB Q2D@1000 [facility]; Protocol Last Admin: 07/03/18 09:51 Dose: 50 mls/hr Sodium Chloride (Normal Saline -) 250 mls @ 3,000 mls/hr IV PRN PRN PRN Reason: Hypotension during Dialysis Stop: 07/04/18 12:21 Vancomycin HCl 500 mg/ (Dextrose) 100 mls @ 100 mls/hr IVPB ONCE ONE; Protocol Stop: 07/03/18 15:46 Insulin Aspart (Novolog Vial Sliding Scale -) 1 vial SQ TIDAC [facility]; Protocol Last Admin: 07/03/18 12:08 Dose: Not Given Labetalol HCl (Normodyne Injection -) 20 mg IVPUSH Q4H PRN PRN Reason: HYPERTENSION Labetalol HCl (Normodyne -) 200 mg PO BID [facility] Lisinopril (Prinivil) 40 mg PO DAILY [facility] Last Admin: 07/03/18 09:57 Dose: 40 mg Nifedipine (Procardia Xl -) 60 mg PO BID [facility] Last Admin: 07/03/18 09:58 Dose: 60 mg Ondansetron HCl (Zofran Injection) 4 mg IVPUSH Q6H PRN PRN Reason: NAUSEA AND/OR VOMITING Oxycodone HCl (Roxicodone -) 5 mg PO Q4H PRN PRN Reason: PAIN LEVEL 7 - 10 Last Admin: 07/03/18 09:50 Dose: 5 mg Sevelamer Carbonate (Renvela -) 800 mg PO TIDCM [facility] Last Admin: 07/03/18 09:51 Dose: 800 mg Vancomycin HCl (Vancomycin Oral Solution) 125 mg PO Q6HPO [facility] - Objective Vital Signs: Vital Signs Temperature 98.6 F 07/03/18 12:45 Pulse Rate 66 07/03/18 16:00 Respiratory Rate 18 07/03/18 16:00 Blood Pressure 140/68 07/03/18 16:00 O2 Sat by Pulse Oximetry (%) 96 07/03/18 09:00 Constitutional: Yes: Calm Eyes: Yes: Conjunctiva Clear HENT: Yes: Atraumatic Cardiovascular: Yes: S1, S2 Respiratory: Yes: CTA Bilaterally Gastrointestinal: Yes: Soft Genitourinary: Yes: WNL Edema: No Wound/Incision: Yes: Dressing Dry and Intact Neurological: Yes: Oriented Labs: CBC, BMP 07/03/18 12:50 07/03/18 12:50 INR, PTT INR 1.24 (0.83-1.09) H 07/01/18 12:00 Problem List - Problems (1) ESRD (end stage renal disease) Code(s): N18.6 - END STAGE RENAL DISEASE (2) Gangrene Code(s): I96 - GANGRENE, NOT ELSEWHERE CLASSIFIED (3) PAD (peripheral artery disease) Code(s): I73.9 - PERIPHERAL VASCULAR DISEASE, UNSPECIFIED Assessment/Plan Current Medications Generic Name Dose Route Start Last Admin Trade Name Freq PRN Reason Stop Dose Admin Acetaminophen 650 mg 07/02/18 17:35 Tylenol - PO QID PRN PAIN 1-3 Acetaminophen 325 mg 07/02/18 17:35 07/03/18 09:55 Tylenol - PO 325 mg Q4H PRN Administration PAIN LEVEL 4 - 6 Atorvastatin Calcium 80 mg 07/02/18 22:00 07/02/18 21:26 Lipitor - PO 80 mg HS [facility] Administration Calcitriol 0.25 mcg 07/03/18 10:00 07/03/18 10:03 Rocaltrol - PO 0.25 mcg DAILY [facility] Administration Docusate Sodium 100 mg 07/02/18 22:00 07/03/18 05:15 Colace - PO Not Given TID [facility] Ferrous Sulfate 325 mg 07/02/18 22:00 07/03/18 09:51 Feosol - PO 325 mg BID [facility] Administration Furosemide 40 mg 07/03/18 10:00 07/03/18 09:58 Lasix - PO 40 mg DAILY [facility] Administration Hydralazine HCl 100 mg 07/02/18 22:00 07/03/18 05:15 Apresoline - PO 100 mg TID [facility] Administration Levofloxacin 250 mg in 50 mls @ 50 mls/hr 07/03/18 10:00 07/03/18 09:51 Levaquin 250 Mg Premixed Ivpb - IVPB 50 mls/hr Q2D@1000 [facility] Administration Protocol Sodium Chloride 250 mls @ 3,000 mls/hr 07/03/18 12:21 Normal Saline - IV 07/04/18 12:21 PRN PRN Hypotension during Dialysis Vancomycin HCl 500 mg/ 100 mls @ 100 mls/hr 07/03/18 14:47 Dextrose IVPB 07/03/18 15:46 ONCE ONE Protocol Insulin Aspart 1 vial 07/03/18 07:00 07/03/18 12:08 Novolog Vial Sliding Scale - SQ Not Given TIDAC [facility] Protocol Labetalol HCl 20 mg 07/02/18 17:29 Normodyne Injection - IVPUSH Q4H PRN HYPERTENSION Labetalol HCl 200 mg 07/03/18 10:38 Normodyne - PO BID [facility] Lisinopril 40 mg 07/03/18 10:00 07/03/18 09:57 Prinivil PO 40 mg DAILY [facility] Administration Nifedipine 60 mg 07/02/18 22:00 07/03/18 09:58 Procardia Xl - PO 60 mg BID [facility] Administration Ondansetron HCl 4 mg 07/02/18 17:35 Zofran Injection IVPUSH Q6H PRN NAUSEA AND/OR VOMITING Oxycodone HCl 5 mg 07/02/18 10:21 07/03/18 09:50 Roxicodone - PO 5 mg Q4H PRN Administration PAIN LEVEL 7 - 10 Sevelamer Carbonate 800 mg 07/03/18 08:00 07/03/18 09:51 Renvela - PO 800 mg TIDCM [facility] Administration Vancomycin HCl 125 mg 07/03/18 18:00 Vancomycin Oral Solution PO Q6HPO [facility] Selected Entries 07/03/18 07/03/18 07/03/18 14:20 14:50 15:20 Blood Pressure 123/55 L 122/60 125/62 07/03/18 07/03/18 15:30 16:00 Blood Pressure 120/65 140/68 Impression 1. ESRD on HD 2. anemia 3. DM 4. HTN 5. toe infection/gangrene 6. PVD 7. 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 type 4 cavernous malformation Plan - HD today - bp improved - mri report reviewed - neuro input appreciated - vascular follow up - cont wound care - PO iron for now - avf 3:00 400 abf - renal diet - monitor bp
[2018-07-03] MEDS: VANCOMYCIN 250 MG/5 ML ORAL SOLUTION PO SCH (17:24)
[2018-07-03] MEDS ORDERED: VANCOMYCIN 500 MG in DEXTROSE 5%-WATER 100 ML IVPB ONE (17:45)
[2018-07-03] MEDS ORDERED: DEXTROSE 5%-WATER 100 ML IVPB ONE (18:08)
[2018-07-03] MEDS ORDERED: VANCOMYCIN 500 MG VIAL (RESTRICTED TO ID ONLY) ONE (18:08)
[2018-07-03] MEDS: ATORVASTATIN CA 80 MG TABLET (FP) PO SCH (21:24)
[2018-07-03] MEDS: LABETALOL HCL 200 MG TABLET (FP) PO SCH (21:24)
[2018-07-03] MEDS ORDERED: LABETALOL HCL 200 MG TABLET (FP) PO SCH (22:00)
[2018-07-04] MEDS: VANCOMYCIN 250 MG/5 ML ORAL SOLUTION PO SCH ×4 (00:05→18:59)
[2018-07-04] MEDS: hydrALAZINE HCL 50 MG TABLET (FP) PO SCH ×3 (05:32→22:00)
[2018-07-04] MEDS: DOCUSATE SODIUM 100 MG CAPSULE (FP) PO SCH ×3 (05:34→21:59)
[2018-07-04] MEDS: INSULIN SLIDING SCALE (NOVOLOG) 1 VIAL SQ SCH ×3 (06:21→17:43)
[2018-07-04 07:09] LABS: INR 1.18 (0.83-1.09)
[2018-07-04 07:16] LABS: BASO % 0.5 % (0-2.0); EOS % 0.8 % (0-4.5); HEMATOCRIT 30.9 % (35.4-49); HEMOGLOBIN 9.9 GM/dL (11.7-16.9); LYMPH % 7.2 % (8-40); MCH 28.7 pg (25.7-33.7); MCHC 32.1 g/dl (32.0-35.9); MEAN CELL VOLUME 89.3 fl (80-96); MEAN PLT VOLUME 8.9 fl (7.5-11.1); MONO % 9.3 % (3.8-10.2); NEUT % 82.2 % (42.8-82.8); PLATELET COUNT 249 K/MM3 (134-434); RBC 3.47 M/mm3 (4.00-5.60); RDW 19.4 % (11.9-15.9); WHITE BLOOD COUNT 13.1 K/mm3 (4.0-10.0)
[2018-07-04 08:02] LABS: ALBUMIN 1.9 g/dl (3.4-5.0); ALK PHOS 536 U/L (45-117); ANION GAP 11 MMOL/L (8-16); BILIRUBIN,TOTAL 0.9 mg/dL (0.2-1); BLOOD UREA NITROGEN 20 mg/dL (7-18); CALCIUM 9.9 mg/dL (8.5-10.1); CHLORIDE 98 mmol/L (98-107); CO2 29 mmol/L (21-32); CREATININE 4.1 mg/dL (0.55-1.3); GLUCOSE,RANDOM 95 mg/dL (74-106); MAGNESIUM 2.2 mg/dL (1.8-2.4); PHOSPHOROUS 2.9 mg/dL (2.5-4.9); POTASSIUM 3.5 mmol/L (3.5-5.1); SGOT/AST 63 U/L (15-37); SGPT/ALT 20 U/L (13-61); SODIUM 137 mmol/L (136-145); TOT PROT 7.3 g/dl (6.4-8.2)
[2018-07-04] MEDS: FUROSEMIDE 40 MG TABLET (FP) PO SCH (09:36)
[2018-07-04] MEDS: LABETALOL HCL 200 MG TABLET (FP) PO SCH ×2 (09:36→22:00)
[2018-07-04] MEDS: CALCITRIOL 0.25 MCG CAPSULE (FP) PO SCH (09:36)
[2018-07-04] MEDS: LISINOPRIL 20 MG TABLET (FP) PO SCH (09:36)
[2018-07-04] MEDS: NIFEdipine E.R 60 MG TABLET (UD) PO SCH ×2 (09:36→21:59)
[2018-07-04] MEDS: FERROUS SO4 325 MG TABLET (FP) PO SCH ×2 (09:37→21:59)
[2018-07-04] MEDS: SEVELAMER CARBONATE 800 MG TAB (FP) PO SCH ×3 (09:37→18:54)
--- NOTE | 2018-07-04 12:27 | PN ---
Teaching Attending Note Name of Resident: Linda Agrawal ATTENDING PHYSICIAN STATEMENT I saw and evaluated the patient. I reviewed the resident's note and discussed the case with the resident. I agree with the resident's findings and plan as documented with exceptions below. SUBJECTIVE: Patient seen and examined. currently calm,co-operative, denies any pain, son at bedside, no complaints. Awaiting surgery. OBJECTIVE: Vital Signs Period Temp Pulse Resp BP Sys/Cole Pulse Ox Last 24 Hr 97.9 F-98.6 F 60-73 18-20 120-182/49-86 96-96 Intake & Output 07/01/18 07/02/18 07/03/18 07/04/18 23:59 23:59 23:59 23:59 Intake Total 750 60 590 Balance 750 60 590 General: sitting in bed in no acute distress HEENT: PERRL, EOMI, facial symmetry Chest: CTAB, no rales or wheezing Abdomen:soft, NT Extremities: Left TMA with clean dressing neuro exam: AAOX3, unchanged, non focal Active Medications Acetaminophen (Tylenol -) 650 mg PO QID PRN PRN Reason: PAIN 1-3 Acetaminophen (Tylenol -) 325 mg PO Q4H PRN PRN Reason: PAIN LEVEL 4 - 6 Last Admin: 07/03/18 09:55 Dose: 325 mg Atorvastatin Calcium (Lipitor -) 80 mg PO HS [facility] Last Admin: 07/03/18 21:24 Dose: Not Given Calcitriol (Rocaltrol -) 0.25 mcg PO DAILY [facility] Last Admin: 07/04/18 09:36 Dose: 0.25 mcg Docusate Sodium (Colace -) 100 mg PO TID [facility] Last Admin: 07/04/18 05:34 Dose: Not Given Ferrous Sulfate (Feosol -) 325 mg PO BID [facility] Last Admin: 07/04/18 09:37 Dose: 325 mg Furosemide (Lasix -) 40 mg PO DAILY [facility] Last Admin: 07/04/18 09:36 Dose: 40 mg Hydralazine HCl (Apresoline -) 100 mg PO TID [facility] Last Admin: 07/04/18 05:32 Dose: 100 mg Levofloxacin (Levaquin 250 Mg Premixed Ivpb -) 250 mg in 50 mls @ 50 mls/hr IVPB Q2D@1000 [facility]; Protocol Last Admin: 07/03/18 09:51 Dose: 50 mls/hr Insulin Aspart (Novolog Vial Sliding Scale -) 1 vial SQ TIDAC [facility]; Protocol Last Admin: 07/04/18 12:00 Dose: Not Given Labetalol HCl (Normodyne Injection -) 20 mg IVPUSH Q4H PRN PRN Reason: HYPERTENSION Last Admin: 07/04/18 07:39 Dose: 20 mg Labetalol HCl (Normodyne -) 200 mg PO BID [facility] Last Admin: 07/04/18 09:36 Dose: 200 mg Lisinopril (Prinivil) 40 mg PO DAILY [facility] Last Admin: 07/04/18 09:36 Dose: 40 mg Nifedipine (Procardia Xl -) 60 mg PO BID [facility] Last Admin: 07/04/18 09:36 Dose: 60 mg Ondansetron HCl (Zofran Injection) 4 mg IVPUSH Q6H PRN PRN Reason: NAUSEA AND/OR VOMITING Oxycodone HCl (Roxicodone -) 5 mg PO Q4H PRN PRN Reason: PAIN LEVEL 7 - 10 Last Admin: 07/03/18 09:50 Dose: 5 mg Sevelamer Carbonate (Renvela -) 800 mg PO TIDCM [facility] Last Admin: 07/04/18 12:11 Dose: Not Given Vancomycin HCl (Vancomycin Oral Solution) 125 mg PO Q6HPO [facility] Last Admin: 07/04/18 12:20 Dose: Not Given Laboratory Results - last 24 hr 07/03/18 07/03/18 07/03/18 12:50 12:50 13:30 WBC 13.0 H RBC 3.40 L Hgb 9.6 L Hct 30.2 L MCV 88.7 MCH 28.4 MCHC 32.0 RDW 19.4 H Plt Count 248 MPV 8.4 Absolute Neuts (auto) 11.2 H Neutrophils % 85.9 H Lymphocytes % 6.7 L Monocytes % 5.8 Eosinophils % 1.2 Basophils % 0.4 Nucleated RBC % 0 PT with INR INR PTT (Actin FS) 43.9 H Sodium 137 Potassium 3.3 L Chloride 98 Carbon Dioxide 30 Anion Gap 9 BUN 29 H Creatinine 5.3 H Creat Clearance w eGFR 10.78 POC Glucometer Random Glucose 151 H Calcium 9.4 Phosphorus 3.2 Magnesium 2.2 Total Bilirubin 0.8 AST 59 H ALT 22 Alkaline Phosphatase 565 H Total Protein 6.8 Albumin 1.7 L Random Vancomycin Blood Type Antibody Screen 07/03/18 07/03/18 07/03/18 13:30 14:00 17:06 WBC RBC Hgb Hct MCV MCH MCHC RDW Plt Count MPV Absolute Neuts (auto) Neutrophils % Lymphocytes % Monocytes % Eosinophils % Basophils % Nucleated RBC % PT with INR INR PTT (Actin FS) Sodium Potassium Chloride Carbon Dioxide Anion Gap BUN Creatinine Creat Clearance w eGFR POC Glucometer 115 Random Glucose Calcium Phosphorus Magnesium Total Bilirubin AST ALT Alkaline Phosphatase Total Protein Albumin Random Vancomycin 12.4 L Blood Type O POSITIVE Antibody Screen Negative 07/04/18 07/04/18 07/04/18 05:30 05:30 05:30 WBC 13.1 H RBC 3.47 L Hgb 9.9 L Hct 30.9 L MCV 89.3 MCH 28.7 MCHC 32.1 RDW 19.4 H Plt Count 249 MPV 8.9 Absolute Neuts (auto) 10.8 H Neutrophils % 82.2 Lymphocytes % 7.2 L Monocytes % 9.3 Eosinophils % 0.8 Basophils % 0.5 Nucleated RBC % 0 PT with INR 14.00 H INR 1.18 H PTT (Actin FS) Sodium 137 Potassium 3.5 Chloride 98 Carbon Dioxide 29 Anion Gap 11 BUN 20 H Creatinine 4.1 H Creat Clearance w eGFR 14.50 POC Glucometer Random Glucose 95 Calcium 9.9 Phosphorus 2.9 Magnesium 2.2 Total Bilirubin 0.9 AST 63 H ALT 20 Alkaline Phosphatase 536 H Total Protein 7.3 Albumin 1.9 L Random Vancomycin Blood Type Antibody Screen 07/04/18 07/04/18 07/04/18 05:30 05:35 11:17 WBC RBC Hgb Hct MCV MCH MCHC RDW Plt Count MPV Absolute Neuts (auto) Neutrophils % Lymphocytes % Monocytes % Eosinophils % Basophils % Nucleated RBC % PT with INR INR PTT (Actin FS) Sodium Potassium Chloride Carbon Dioxide Anion Gap BUN Creatinine Creat Clearance w eGFR POC Glucometer 107 97 Random Glucose Calcium Phosphorus Magnesium Total Bilirubin AST ALT Alkaline Phosphatase Total Protein Albumin Random Vancomycin Blood Type O POSITIVE Antibody Screen Negative ASSESSMENT AND PLAN: 68 y/o man with h/o CAD, recent HI, PVD, ESRD on HD, HTN, HLP, Hep B , DM, and recent admission for L 4th toe gangrene and OM, s/p angiogram, atherectomy and angioplasty, who presented with increased pain in foot and change in L 3rd toe color. He was found to have a gangrenous 3rd and 4th toes -Acute/subacute 7 mm left thalamic intraparenchymal haemorrhage, suspect HTN related rather than traumatic -Mechanical fall -Left 3rd/4th toe gangrene with osteomyelitis,S/P revision tma (Left toes 2-4) and amputation 1st ray left foot (06/24); s/p L TMA sparing great toe (06/11/18) -Anemia of chronic disease s/p 3 u PRBC pre-op -Uncontrolled HTN, in the setting of intermittent refusal to take medications. -ESRD on HD -HTN Plan: Upset, intermittent non compliant with BP meds. DIscussed with patient and son at bedside about need for compliance with medications and increased risk of progression of brain, haemorrhage and in the setting of non compliance, persistently elevated BP. Patient and son at bedside relay understading and agree to comply. Mental status at baseline, neuro exam non concerning. Neurology input noted. MRI brain noted. BP control. Continue labetalol to 200 mg BID. Continue nifedipine/hydralazine/lasix/lisinopril. Neurology/neurosurgery input. Hold ASA/plavix. INR noted, s/p vitamin K 5 mg PO x 1. Levaquin/vanco per ID. BP improved, for possible Right BKA today, will follow up. H/h appropriate response. Renal input appreciated, HD per renal, labs with HD. Diabetic/renal diet. DVTPPX with SCDs Dispo pending clinical improvement. Plan discussed with patient and son at bedside in detail, all questions answered.
[2018-07-04] MEDS ORDERED: DEXAMETHASONE SOD PHOSPHATE 4 MG/1 ML VIAL ONE (12:56)
[2018-07-04] MEDS ORDERED: LIDOCAINE HCL/PF 2% SDV 5ML VIAL ONE (12:56)
[2018-07-04] MEDS ORDERED: PROPOFOL 20 ML ONE (12:57)
[2018-07-04] MEDS ORDERED: MIDAZOLAM HCL 2 MG/2 ML SINGLE DOSE VIAL ONE (13:10)
[2018-07-04] MEDS ORDERED: PHENYLEPHRINE HCL 10 MG/1 ML SINGLE DOSE VIAL ONE (13:36)
[2018-07-04] MEDS ORDERED: ceFAZolin SODIUM 1 GM VIAL IVPB ONE (14:18)
[2018-07-04] MEDS ORDERED: KETAMINE HCL 200 MG/20 ML VIAL ONE (14:30)
--- NOTE | 2018-07-04 15:12 | PN ---
Progress Note, Physician History of Present Illness: Pt seen earlier. He is not always taking his meds. He is getting amputation today. - Current Medication List Current Medications: Active Medications Acetaminophen (Tylenol -) 650 mg PO QID PRN PRN Reason: PAIN 1-3 Acetaminophen (Tylenol -) 325 mg PO Q4H PRN PRN Reason: PAIN LEVEL 4 - 6 Last Admin: 07/03/18 09:55 Dose: 325 mg Atorvastatin Calcium (Lipitor -) 80 mg PO HS [facility] Last Admin: 07/03/18 21:24 Dose: Not Given Calcitriol (Rocaltrol -) 0.25 mcg PO DAILY [facility] Last Admin: 07/04/18 09:36 Dose: 0.25 mcg Docusate Sodium (Colace -) 100 mg PO TID [facility] Last Admin: 07/04/18 14:22 Dose: Not Given Ferrous Sulfate (Feosol -) 325 mg PO BID [facility] Last Admin: 07/04/18 09:37 Dose: 325 mg Furosemide (Lasix -) 40 mg PO DAILY [facility] Last Admin: 07/04/18 09:36 Dose: 40 mg Hydralazine HCl (Apresoline -) 100 mg PO TID [facility] Last Admin: 07/04/18 14:22 Dose: Not Given Levofloxacin (Levaquin 250 Mg Premixed Ivpb -) 250 mg in 50 mls @ 50 mls/hr IVPB Q2D@1000 [facility]; Protocol Last Admin: 07/03/18 09:51 Dose: 50 mls/hr Insulin Aspart (Novolog Vial Sliding Scale -) 1 vial SQ TIDAC [facility]; Protocol Last Admin: 07/04/18 12:00 Dose: Not Given Labetalol HCl (Normodyne Injection -) 20 mg IVPUSH Q4H PRN PRN Reason: HYPERTENSION Last Admin: 07/04/18 07:39 Dose: 20 mg Labetalol HCl (Normodyne -) 200 mg PO BID [facility] Last Admin: 07/04/18 09:36 Dose: 200 mg Lisinopril (Prinivil) 40 mg PO DAILY [facility] Last Admin: 07/04/18 09:36 Dose: 40 mg Nifedipine (Procardia Xl -) 60 mg PO BID [facility] Last Admin: 07/04/18 09:36 Dose: 60 mg Ondansetron HCl (Zofran Injection) 4 mg IVPUSH Q6H PRN PRN Reason: NAUSEA AND/OR VOMITING Oxycodone HCl (Roxicodone -) 5 mg PO Q4H PRN PRN Reason: PAIN LEVEL 7 - 10 Last Admin: 07/03/18 09:50 Dose: 5 mg Sevelamer Carbonate (Renvela -) 800 mg PO TIDCM [facility] Last Admin: 07/04/18 12:11 Dose: Not Given Vancomycin HCl (Vancomycin Oral Solution) 125 mg PO Q6HPO [facility] Last Admin: 07/04/18 12:20 Dose: Not Given - Objective Vital Signs: Vital Signs Temperature 98.4 F 07/04/18 11:39 Pulse Rate 67 07/04/18 11:39 Respiratory Rate 18 07/04/18 11:39 Blood Pressure 142/67 07/04/18 11:39 O2 Sat by Pulse Oximetry (%) 96 07/04/18 09:00 Constitutional: Yes: Calm Eyes: Yes: Conjunctiva Clear HENT: Yes: Atraumatic Cardiovascular: Yes: S1, S2 Gastrointestinal: Yes: Soft Genitourinary: Yes: WNL Edema: No Neurological: Yes: Oriented Psychiatric: Yes: Oriented Labs: CBC, BMP 07/04/18 05:30 07/04/18 05:30 INR, PTT INR 1.18 (0.83-1.09) H 07/04/18 05:30 Problem List - Problems (1) ESRD (end stage renal disease) Code(s): N18.6 - END STAGE RENAL DISEASE (2) Gangrene Code(s): I96 - GANGRENE, NOT ELSEWHERE CLASSIFIED (3) PAD (peripheral artery disease) Code(s): I73.9 - PERIPHERAL VASCULAR DISEASE, UNSPECIFIED Assessment/Plan Current Medications Generic Name Dose Route Start Last Admin Trade Name Freq PRN Reason Stop Dose Admin Acetaminophen 650 mg 07/02/18 17:35 Tylenol - PO QID PRN PAIN 1-3 Acetaminophen 325 mg 07/02/18 17:35 07/03/18 09:55 Tylenol - PO 325 mg Q4H PRN Administration PAIN LEVEL 4 - 6 Atorvastatin Calcium 80 mg 07/02/18 22:00 07/03/18 21:24 Lipitor - PO Not Given HS [facility]UCKY Calcitriol 0.25 mcg 07/03/18 10:00 07/04/18 09:36 Rocaltrol - PO 0.25 mcg DAILY [facility] Administration Docusate Sodium 100 mg 07/02/18 22:00 07/04/18 14:22 Colace - PO Not Given TID [facility] Ferrous Sulfate 325 mg 07/02/18 22:00 07/04/18 09:37 Feosol - PO 325 mg BID [facility] Administration Furosemide 40 mg 07/03/18 10:00 07/04/18 09:36 Lasix - PO 40 mg DAILY [facility] Administration Hydralazine HCl 100 mg 07/02/18 22:00 07/04/18 14:22 Apresoline - PO Not Given TID [facility] Levofloxacin 250 mg in 50 mls @ 50 mls/hr 07/03/18 10:00 07/03/18 09:51 Levaquin 250 Mg Premixed Ivpb - IVPB 50 mls/hr Q2D@1000 [facility] Administration Protocol Insulin Aspart 1 vial 07/03/18 07:00 07/04/18 12:00 Novolog Vial Sliding Scale - SQ Not Given TIDAC [facility] Protocol Labetalol HCl 20 mg 07/02/18 17:29 07/04/18 07:39 Normodyne Injection - IVPUSH 20 mg Q4H PRN Administration HYPERTENSION Labetalol HCl 200 mg 07/03/18 10:38 07/04/18 09:36 Normodyne - PO 200 mg BID [facility] Administration Lisinopril 40 mg 07/03/18 10:00 07/04/18 09:36 Prinivil PO 40 mg DAILY [facility] Administration Nifedipine 60 mg 07/02/18 22:00 07/04/18 09:36 Procardia Xl - PO 60 mg BID [facility] Administration Ondansetron HCl 4 mg 07/02/18 17:35 Zofran Injection IVPUSH Q6H PRN NAUSEA AND/OR VOMITING Oxycodone HCl 5 mg 07/02/18 10:21 07/03/18 09:50 Roxicodone - PO 5 mg Q4H PRN Administration PAIN LEVEL 7 - 10 Sevelamer Carbonate 800 mg 07/03/18 08:00 07/04/18 12:11 Renvela - PO Not Given TIDCM [facility] Vancomycin HCl 125 mg 07/03/18 18:00 07/04/18 12:20 Vancomycin Oral Solution PO Not Given Q6HPO [facility] Impression 1. ESRD on HD 2. anemia 3. DM 4. HTN 5. toe infection/gangrene 6. PVD 7. 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 type 4 cavernous malformation Plan - monitor bp - encourage compliance with meds - pt getting amputation today - avoid intra-op hypo or hypertension - PO iron for now - avf 3:00 400 abf - renal diet - monitor bp
[2018-07-04] MEDS ORDERED: SODIUM CHLORIDE 250 ML IV PRN ×2 (15:18→16:55)
--- NOTE | 2018-07-04 16:12 | OP ---
Operative Note - Note: Operative Date: 07/04/18 Pre-Operative Diagnosis: left foot gangrene Operation: Left below knee amputation Post-Operative Diagnosis: Same as Pre-op Surgeon: Kel Paiz Anesthesia: General Estimated Blood Loss (mls): 100 Operative Report Dictated: Yes
[2018-07-04] MEDS ORDERED: SODIUM CHLORIDE 1,000 ML IV SCH (16:45)
--- NOTE | 2018-07-04 16:50 | SURG ---
Surgery Rifle Case Repairer Note Rifle Case Repairer: Vicki López PA-C Date of Service: 07/04/18 Diagnosis: left foot gangrene Procedure: Left below knee amputation I was present for the entirety of the operative procedure. For further detail, please refer to operative report. Visit type - Case Type Case Type: Scheduled - Emergency Emergency Visit: Yes ED Registration Date: 06/05/18 Care time: The patient presented to the Emergency Department on the above date and was hospitalized for further evaluation of their emergent condition. - New patient This patient is new to me today: Yes Date on this admission: 07/04/18
--- NOTE | 2018-07-04 18:43 | PN ---
Physical Exam: SUBJECTIVE: Patient seen and examined this morning. No new complaints. Denies any fevers, chills, chest pain, SOB, nausea, vomiting. OBJECTIVE: Vital Signs Period Temp Pulse Resp BP Sys/Cole Pulse Ox Last 24 Hr 97.9 F-99.3 F 60-73 14-20 137-182/49-73 94-96 GENERAL: A&Ox3, NAD, lying in bed comfortably HEAD: NCAT EYES: L eye non-reactive s/p cataract surgery. R eye wnl. EOMI. ENT: Oropharynx clear without exudates, MMM NECK: supple, No JVD LUNGS: Breath sounds equal, clear to auscultation bilaterally, no wheezes HEART: Regular rate and rhythm, S1, S2, Systolic murmur at the LLSB ABDOMEN: Soft, nontender, nondistended, normoactive bowel sounds, no guarding EXTREMITIES: 2+ pulses, no edema. Dried, clean and intact Left foot external dressing. Sutures intact over revised TransMetartarsal amputation without any active drainage. Tenderness to palpation at the bases of metatarsals 1-3. Gross lower extremity sensation intact b/l. Dorsiflexion and Plantarflexion 4/5 b/l. 5 /5 muscle strength for b/l Hip flexion. Gross UE sensation intact b/l. NEUROLOGICAL: Cranial nerves II through XII grossly intact. Normal speech. Laboratory Results - last 24 hr 06/30/18 07/04/18 07/04/18 11:25 05:30 05:30 WBC 13.1 H RBC 3.47 L Hgb 9.9 L Hct 30.9 L MCV 89.3 MCH 28.7 MCHC 32.1 RDW 19.4 H Plt Count 249 MPV 8.9 Absolute Neuts (auto) 10.8 H Neutrophils % 82.2 Lymphocytes % 7.2 L Monocytes % 9.3 Eosinophils % 0.8 Basophils % 0.5 Nucleated RBC % 0 PT with INR 14.00 H INR 1.18 H Sodium Potassium Chloride Carbon Dioxide Anion Gap BUN Creatinine Creat Clearance w eGFR POC Glucometer Random Glucose Calcium Phosphorus Magnesium Total Bilirubin AST ALT Alkaline Phosphatase Total Protein Albumin Blood Type O POSITIVE Antibody Screen Negative Crossmatch See Detail 07/04/18 07/04/18 07/04/18 05:30 05:30 05:35 WBC RBC Hgb Hct MCV MCH MCHC RDW Plt Count MPV Absolute Neuts (auto) Neutrophils % Lymphocytes % Monocytes % Eosinophils % Basophils % Nucleated RBC % PT with INR INR Sodium 137 Potassium 3.5 Chloride 98 Carbon Dioxide 29 Anion Gap 11 BUN 20 H Creatinine 4.1 H Creat Clearance w eGFR 14.50 POC Glucometer 107 Random Glucose 95 Calcium 9.9 Phosphorus 2.9 Magnesium 2.2 Total Bilirubin 0.9 AST 63 H ALT 20 Alkaline Phosphatase 536 H Total Protein 7.3 Albumin 1.9 L Blood Type O POSITIVE Antibody Screen Negative Crossmatch Microbiology 07/02/18 11:00 Stool Clostridium difficile Antigen (LEONOR) - Final 07/02/18 11:00 Stool Clostridium difficile Toxin Assay - Final 06/27/18 19:30 Blood - Peripheral Venous Blood Culture - Final NO GROWTH AFTER 5 DAYS INCUBATION 06/27/18 17:30 Blood - Peripheral Venous Blood Culture - Final NO GROWTH AFTER 5 DAYS INCUBATION 06/24/18 10:44 Foot - Lt Transmetatarsal Amp Site Gram Stain - Final 06/24/18 10:44 Foot - Lt Transmetatarsal Amp Site Wound Culture - Final Aeromonas Hydrophilia Group 06/24/18 10:56 Foot - Lt Transmetatarsal Amp Site Gram Stain - Final 06/24/18 10:56 Foot - Lt Transmetatarsal Amp Site Wound Culture - Final Stenotrophomon.(X.)Maltophilia 06/05/18 11:10 Blood - Peripheral Venous Blood Culture - Final NO GROWTH AFTER 5 DAYS INCUBATION 06/05/18 11:10 Blood - Peripheral Venous Blood Culture - Final NO GROWTH AFTER 5 DAYS INCUBATION Active Medications Acetaminophen (Tylenol -) 650 mg PO Q6H PRN PRN Reason: PAIN 1-3 Acetaminophen (Tylenol -) 325 mg PO Q4H PRN PRN Reason: PAIN LEVEL 4 - 6 Atorvastatin Calcium (Lipitor -) 80 mg PO HS [facility] Calcitriol (Rocaltrol -) 0.25 mcg PO DAILY [facility] Docusate Sodium (Colace -) 100 mg PO TID [facility] Ferrous Sulfate (Feosol -) 325 mg PO BID [facility] Furosemide (Lasix -) 40 mg PO DAILY [facility] Hydralazine HCl (Apresoline -) 100 mg PO TID [facility] Sodium Chloride (Normal Saline -) 1,000 mls @ 50 mls/hr IV ASDIR [facility] Stop: 07/05/18 16:32 Sodium Chloride (Normal Saline -) 250 mls @ 3,000 mls/hr IV PRN PRN PRN Reason: Hypotension during Dialysis Stop: 07/05/18 15:18 Levofloxacin (Levaquin 250 Mg Premixed Ivpb -) 250 mg in 50 mls @ 50 mls/hr IVPB Q2D@1000 [facility]; Protocol Insulin Aspart (Novolog Vial Sliding Scale -) 1 vial SQ TIDAC [facility]; Protocol Labetalol HCl (Normodyne -) 200 mg PO BID [facility] Labetalol HCl (Normodyne Injection -) 20 mg IVPUSH Q4H PRN PRN Reason: HYPERTENSION Lisinopril (Prinivil) 40 mg PO DAILY [facility] Morphine Sulfate (Morphine Sulfate) 4 mg IVPUSH Q4H PRN PRN Reason: breakthrough pain Nifedipine (Procardia Xl -) 60 mg PO BID [facility] Oxycodone HCl (Roxicodone -) 10 mg PO Q4H PRN PRN Reason: PAIN LEVEL 6-10 Oxycodone HCl (Roxicodone -) 5 mg PO Q4H PRN PRN Reason: PAIN LEVEL 7 - 10 Sevelamer Carbonate (Renvela -) 800 mg PO TIDCM [facility] Vancomycin HCl (Vancomycin Oral Solution) 125 mg PO Q6HPO [facility] IMAGING: -EKG: NORMAL SINUS RHYTHM, NONSPECIFIC T WAVE ABNORMALITY -EKG done (06/10) revealed new T-wave inversions in lateral leads, -Left Foot XRay (06/05): No fracture or osteomyelitis. -Left Foot XRay (06/12):Status post transmetatarsal amputation left second through fifth digits. Alignment maintained. -Left Foot XRay (06/26): Imaging reveals loss of bone density, heavy vascular calcifications and amputation of the toes with the metatarsal bases remain. There is some soft tissue swelling with bandage artifact. -CT ANGIOGRAM OF THE ABDOMEN AND PELVIS WITH BILATERAL LOWER EXTREMITY RUNOFFS: Predominant distal arterial disease suggestive of diabetic and/or nephrogenic vasculopathy. Predominant disease in the distal left popliteal and infrapopliteal arteries demonstrating interval improvement in flow and mild improvement in the degree of stenosis described on the prior exam, as described above. Essential flow to the foot is provided by the MIGUELITO. Peroneal artery is occluded and CRABBER demonstrate short segmental occlusions with reconstitution of flow in the plantar artery which demonstrate robust flow. Flow is seen in the digital arteries. Predominant right infrapopliteal disease, as described above, grossly unchanged since the prior exam. Subcutaneous edema with mesenteric stranding possibly due to third spacing/anasarca. Under distended urinary bladder with suggestion of wall thickening. Correlate clinically for cystitis. -CXR: Since 05/14/2018 again noted is the large heart, sclerotic knob and prominent central markings. An acute process is not seen. -R Hip XRay: Within the limitation of examination, the visualized osseous structures appear intact, no acute bony abnormalities are seen. -L Knee XRay: No acute fracture is seen. No evidence of suprapatellar joint effusion. Vascular calcifications. -Head CT Without contrast (07/02 @ 03:15): Approximately 5.9 mm x 3.6 mm x 4.4 mm acute hemorrhage measuring approximately 59 HU along the lateral aspect of the left thalamus, adjacent velasco radiata with mild peripharyngeal edema, The location of the hemorrhage likely related to hypertension. Clinical correlation. No CT evidence of acute territorial ischemic changes. No evidence of subarachnoid hemorrhage. No evidence of acute subdural, epidural hematoma. No evidence of skull fracture -Head CT Without contrast (07/02 @ 08:32): Stable approximately 7 mm focal acute /subacute hemorrhage in the left thalamus, laterally. -MRI Brain: There is no evidence of abnormal restricted diffusion in the brain to suggest acute or subacute infarction. On T2 gradient heme sensitive images, low signal lesion lateral to the left thalamus measuring 6.5 mm x 9.2 mm with blossoming affect, mild brain edema manifested by increased signal intensity on T2, FLAIR sequences. The lesion may represent cavernoma with recent hemorrhage. On T2 gradient echo heme sensitive images, lesion of low signal intensity measuring 6.7 mm x 4.9 mm is observed in the left mid darby. 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 No evidence of supratentorial white matter microangiopathic ischemic changes, gliosis. ASSESSMENT/PLAN: 68 y/o M w/ PMHx CAD, DE, PVD, ESRD on HD (MWF), HTN, admitted for gangrene/ osteomyelitis of the left foot on 05/16, now presents with worsening pain and discoloration of the left 4th toe and blackening and pain of the 3rd toe 1. Mechanical fall -Neurological exam unchanged, Currently at baseline mental status -Stroke Tele -R Hip XRay: No acute bony abnormalities are seen -L Knee XRay: No acute fracture is seen. -Head CT Without contrast (07/02 @ 03:15): Approximately 5.9 mm x 3.6 mm x 4.4 mm acute hemorrhage measuring approximately 59 HU along the lateral aspect of the left thalamus, adjacent velasco radiata with mild peripharyngeal edema -Head CT Without contrast (07/02 @ 08:32): Stable approximately 7 mm focal acute /subacute hemorrhage in the left thalamus, laterally. -MRI Brain: There is no evidence of abnormal estricted diffusion in the brain to suggest acute or subacute infarction. The lesion may represent cavernoma with recent hemorrhage. 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 -Neurology (Dr. Claire) consulted, Appreciate rec's, Check B12, TSH, Control SBP -Neurosurgery (Dr. Espinoza) was contacted by the overnight team -ASA/Plavix held 2. HTN -BP better controlled -Cont home dose nifedipine, hydralazine, lasix -Continue Lisinopril, Labetalol 3. Gangrene of L 3rd and 4th toes with Osteomyelitis -S/P BKA POD#0 (07/04) -S/P revision tma (Left toes 2-4) and amputation 1st ray left foot (06/24); s/p L TMA sparing great toe (06/11/18) -Completed Zosyn course (06/11-06/26) -Continue Levaquin (06/27) -Pain control via Oxycodone -Podiatry (Dr. Garcia) consulted: Amputation on 06/11. Revised TMA on 06/24. -CTA noted as above -ID (Dr. Reyez) consulted, appreciate rec's 4. C. Diff Antigen Positive -2 Bloody BMs yesterday -Currently no complaints of Diarrhea or Abdominal pain -Continue PO Vanco (Started on 07/03) 5. Anemia -S/P 5 units pRBC's (2 on 07/01, 2 on 06/25, 1 on 06/26), Appropriate H&H response -Likely blood loss anemia due to surgery -will continue to monitor, possibly giving 1 unit pRBCs during dialysis 6. ESRD on HD (MWF) -Nephro (Dr. Flaherty) consulted -Vascular evaluated fistula -Cont home Lasix, Sevelamer -Pt requesting blood draws with dialysis 7. CAD/PVD -ASA/Plavix held 8. FEN -PO Fluids -Continue to monitor lytes -Diabetic/Renal diet 9. PPx -no heparin at this time per vascular Dispo: Will need PT eval prior to D/c Visit type - Emergency Visit Emergency Visit: Yes ED Registration Date: 06/05/18 Care time: The patient presented to the Emergency Department on the above date and was hospitalized for further evaluation of their emergent condition. - New Patient This patient is new to me today: No - Critical Care Critical Care patient: No - Discharge Referral Referred to [facility] Med P.C.: No
[2018-07-04] MEDS ORDERED: PT OWN MED DRAWER 7, Y5N ONE (18:45)
[2018-07-04] MEDS: oxyCODONE HCL 5 MG TABLET PO PRN (21:58)
[2018-07-04] MEDS: ATORVASTATIN CA 80 MG TABLET (FP) PO SCH (21:59)
[2018-07-05] MEDS: VANCOMYCIN 250 MG/5 ML ORAL SOLUTION PO SCH ×5 (00:51→23:39)
[2018-07-05] MEDS: morphine SULFATE 4 MG/ML VIAL IVPUSH PRN ×2 (00:52→06:12)
[2018-07-05] MEDS: oxyCODONE HCL 5 MG TABLET PO PRN ×3 (05:08→20:26)
[2018-07-05] MEDS: hydrALAZINE HCL 50 MG TABLET (FP) PO SCH ×3 (06:11→22:00)
[2018-07-05] MEDS: DOCUSATE SODIUM 100 MG CAPSULE (FP) PO SCH ×3 (06:12→21:16)
[2018-07-05] MEDS: INSULIN SLIDING SCALE (NOVOLOG) 1 VIAL SQ SCH ×3 (06:24→16:48)
--- NOTE | 2018-07-05 07:15 | PN ---
Physical Exam: SUBJECTIVE: Patient seen and examined. Had L BKA yesterday. Had one BP spike overnight. Did not receive Iv medications overnight. BP now down. Pt receiving dialysis. OBJECTIVE: Vital Signs Temp 98.6 F 07/05/18 07:10 Pulse 56 L 07/05/18 10:34 Resp 18 07/05/18 10:34 BP 127/61 07/05/18 10:34 Pulse Ox 95 07/05/18 09:00 Intake & Output 07/04/18 07/04/18 07/05/18 11:59 23:59 11:59 Intake Total 100 50 Output Total 250 Balance -150 50 Intake: IV 50 Oral 50 50 Output: Estimated Blood Loss 250 Other: Voiding Method Urinal Urinal Urinal Bowel Movement Yes Yes No # Bowel Movements 1 Body Mass Index (BMI) 24.1 Vital Signs Period Temp Pulse Resp BP Sys/Cole Pulse Ox Last 24 Hr 98.0 F-99.3 F 60-71 14-20 138-191/54-78 94-96 GENERAL: The patient is awake, alert, and fully oriented, in no acute distress. EYES: PERRL, extraocular movements intact, sclera anicteric ENT: Ears normal, nares patent, oropharynx clear without exudates, moist mucous membranes. NECK: supple. LUNGS: Breath sounds equal, clear to auscultation bilaterally, no wheezes, no crackles HEART: irregular rate and rhythm, S1, S2 with systolic murmur ABDOMEN: Soft, nontender, nondistended, normoactive bowel sounds EXTREMITIES: 2+ pulses, warm, well-perfused, no edema R lower extremity. LLE BKA with immobilizer in place (per MR to be kept in place). No obvious bleeding NEUROLOGICAL: AAO x 3 . symmetrical face. No lateralizing signs. Cranial nerves II through XII grossly intact. Normal speech PSYCH: Normal mood, normal affect. CBC, BMP 07/05/18 06:30 07/05/18 06:30 Laboratory Results - last 24 hr 06/30/18 07/04/18 07/04/18 11:25 05:30 05:30 WBC 13.1 H RBC 3.47 L Hgb 9.9 L Hct 30.9 L MCV 89.3 MCH 28.7 MCHC 32.1 RDW 19.4 H Plt Count 249 MPV 8.9 Absolute Neuts (auto) 10.8 H Neutrophils % 82.2 Lymphocytes % 7.2 L Monocytes % 9.3 Eosinophils % 0.8 Basophils % 0.5 Nucleated RBC % 0 PT with INR 14.00 H INR 1.18 H Sodium Potassium Chloride Carbon Dioxide Anion Gap BUN Creatinine Creat Clearance w eGFR POC Glucometer Random Glucose Calcium Phosphorus Magnesium Total Bilirubin AST ALT Alkaline Phosphatase Total Protein Albumin Blood Type O POSITIVE Antibody Screen Negative Crossmatch See Detail 07/04/18 07/04/18 07/04/18 05:30 05:30 11:17 WBC RBC Hgb Hct MCV MCH MCHC RDW Plt Count MPV Absolute Neuts (auto) Neutrophils % Lymphocytes % Monocytes % Eosinophils % Basophils % Nucleated RBC % PT with INR INR Sodium 137 Potassium 3.5 Chloride 98 Carbon Dioxide 29 Anion Gap 11 BUN 20 H Creatinine 4.1 H Creat Clearance w eGFR 14.50 POC Glucometer 97 Random Glucose 95 Calcium 9.9 Phosphorus 2.9 Magnesium 2.2 Total Bilirubin 0.9 AST 63 H ALT 20 Alkaline Phosphatase 536 H Total Protein 7.3 Albumin 1.9 L Blood Type O POSITIVE Antibody Screen Negative Crossmatch 07/04/18 07/04/18 07/04/18 16:59 17:25 23:34 WBC RBC Hgb Hct MCV MCH MCHC RDW Plt Count MPV Absolute Neuts (auto) Neutrophils % Lymphocytes % Monocytes % Eosinophils % Basophils % Nucleated RBC % PT with INR INR Sodium Potassium Chloride Carbon Dioxide Anion Gap BUN Creatinine Creat Clearance w eGFR POC Glucometer 114 116 163 Random Glucose Calcium Phosphorus Magnesium Total Bilirubin AST ALT Alkaline Phosphatase Total Protein Albumin Blood Type Antibody Screen Crossmatch 07/05/18 06:22 WBC RBC Hgb Hct MCV MCH MCHC RDW Plt Count MPV Absolute Neuts (auto) Neutrophils % Lymphocytes % Monocytes % Eosinophils % Basophils % Nucleated RBC % PT with INR INR Sodium Potassium Chloride Carbon Dioxide Anion Gap BUN Creatinine Creat Clearance w eGFR POC Glucometer 120 Random Glucose Calcium Phosphorus Magnesium Total Bilirubin AST ALT Alkaline Phosphatase Total Protein Albumin Blood Type Antibody Screen Crossmatch Current Medications Acetaminophen (Tylenol -) 650 mg PO Q6H PRN PRN Reason: PAIN 1-3 Acetaminophen (Tylenol -) 325 mg PO Q4H PRN PRN Reason: PAIN LEVEL 4 - 6 Atorvastatin Calcium (Lipitor -) 80 mg PO HS [facility] Last Admin: 07/04/18 21:59 Dose: 80 mg Calcitriol (Rocaltrol -) 0.25 mcg PO DAILY [facility] Docusate Sodium (Colace -) 100 mg PO TID [facility] Last Admin: 07/05/18 06:12 Dose: 100 mg Ferrous Sulfate (Feosol -) 325 mg PO BID [facility] Last Admin: 07/04/18 21:59 Dose: 325 mg Furosemide (Lasix -) 40 mg PO DAILY [facility] Hydralazine HCl (Apresoline -) 100 mg PO TID [facility] Last Admin: 07/05/18 06:11 Dose: 100 mg Sodium Chloride (Normal Saline -) 1,000 mls @ 50 mls/hr IV ASDIR [facility] Stop: 07/05/18 16:32 Last Admin: 07/04/18 18:53 Dose: Not Given Sodium Chloride (Normal Saline -) 250 mls @ 3,000 mls/hr IV PRN PRN PRN Reason: Hypotension during Dialysis Stop: 07/05/18 15:18 Levofloxacin (Levaquin 250 Mg Premixed Ivpb -) 250 mg in 50 mls @ 50 mls/hr IVPB Q2D@1000 [facility]; Protocol Insulin Aspart (Novolog Vial Sliding Scale -) 1 vial SQ TIDAC [facility]; Protocol Last Admin: 07/05/18 06:24 Dose: Not Given Labetalol HCl (Normodyne -) 200 mg PO BID [facility] Last Admin: 07/04/18 22:00 Dose: 200 mg Labetalol HCl (Normodyne Injection -) 20 mg IVPUSH Q4H PRN PRN Reason: HYPERTENSION Lisinopril (Prinivil) 40 mg PO DAILY [facility] Morphine Sulfate (Morphine Sulfate) 4 mg IVPUSH Q4H PRN PRN Reason: breakthrough pain Last Admin: 07/05/18 06:12 Dose: 4 mg Nifedipine (Procardia Xl -) 60 mg PO BID [facility] Last Admin: 07/04/18 21:59 Dose: 60 mg Oxycodone HCl (Roxicodone -) 10 mg PO Q4H PRN PRN Reason: PAIN LEVEL 6-10 Last Admin: 07/05/18 05:08 Dose: 10 mg Oxycodone HCl (Roxicodone -) 5 mg PO Q4H PRN PRN Reason: PAIN LEVEL 7 - 10 Last Admin: 07/04/18 21:58 Dose: 5 mg Sevelamer Carbonate (Renvela -) 800 mg PO TIDCM [facility] Last Admin: 07/04/18 18:54 Dose: 800 mg Vancomycin HCl (Vancomycin Oral Solution) 125 mg PO Q6HPO [facility] Last Admin: 07/05/18 06:16 Dose: 125 mg Ambulatory Orders Sevelamer HCl [Renagel] 800 mg PO TIDCM 05/16/18 Aspirin Coated [Ecotrin -] 81 mg PO DAILY #30 tablet.ec 05/27/18 Atorvastatin Ca [Lipitor] 20 mg PO HS #30 tablet 05/27/18 Calcitriol [Calcitriol -] 0.25 mcg PO DAILY #30 capsule 05/27/18 Clopidogrel Bisulfate [Plavix -] 75 mg PO DAILY #30 tablet 05/27/18 Furosemide [Lasix -] 40 mg PO DAILY #30 tablet 05/27/18 Hydralazine HCl 100 mg PO TID #90 tablet 05/27/18 Nifedipine ER [Procardia XL -] 60 mg PO BID #60 tab.er.24 05/27/18 Acetaminophen [Tylenol] 650 mg PO QID PRN 06/05/18 IMAGING: -EKG: NORMAL SINUS RHYTHM, NONSPECIFIC T WAVE ABNORMALITY -EKG done (06/10) revealed new T-wave inversions in lateral leads, -Left Foot XRay (06/05): No fracture or osteomyelitis. -Left Foot XRay (06/12):Status post transmetatarsal amputation left second through fifth digits. Alignment maintained. -Left Foot XRay (06/26): Imaging reveals loss of bone density, heavy vascular calcifications and amputation of the toes with the metatarsal bases remain. There is some soft tissue swelling with bandage artifact. -CT ANGIOGRAM OF THE ABDOMEN AND PELVIS WITH BILATERAL LOWER EXTREMITY RUNOFFS: Predominant distal arterial disease suggestive of diabetic and/or nephrogenic vasculopathy. Predominant disease in the distal left popliteal and infrapopliteal arteries demonstrating interval improvement in flow and mild improvement in the degree of stenosis described on the prior exam, as described above. Essential flow to the foot is provided by the MIGUELITO. Peroneal artery is occluded and LINE THERAPIST demonstrate short segmental occlusions with reconstitution of flow in the plantar artery which demonstrate robust flow. Flow is seen in the digital arteries. Predominant right infrapopliteal disease, as described above, grossly unchanged since the prior exam. Subcutaneous edema with mesenteric stranding possibly due to third spacing/anasarca. Under distended urinary bladder with suggestion of wall thickening. Correlate clinically for cystitis. -CXR: Since 05/14/2018 again noted is the large heart, sclerotic knob and prominent central markings. An acute process is not seen. -R Hip XRay: Within the limitation of examination, the visualized osseous structures appear intact, no acute bony abnormalities are seen. -L Knee XRay: No acute fracture is seen. No evidence of suprapatellar joint effusion. Vascular calcifications. -Head CT Without contrast (07/02 @ 03:15): Approximately 5.9 mm x 3.6 mm x 4.4 mm acute hemorrhage measuring approximately 59 HU along the lateral aspect of the left thalamus, adjacent velasco radiata with mild peripharyngeal edema, The location of the hemorrhage likely related to hypertension. Clinical correlation. No CT evidence of acute territorial ischemic changes. No evidence of subarachnoid hemorrhage. No evidence of acute subdural, epidural hematoma. No evidence of skull fracture -Head CT Without contrast (07/02 @ 08:32): Stable approximately 7 mm focal acute /subacute hemorrhage in the left thalamus, laterally. -MRI Brain: There is no evidence of abnormal restricted diffusion in the brain to suggest acute or subacute infarction. On T2 gradient heme sensitive images, low signal lesion lateral to the left thalamus measuring 6.5 mm x 9.2 mm with blossoming affect, mild brain edema manifested by increased signal intensity on T2, FLAIR sequences. The lesion may represent cavernoma with recent hemorrhage. On T2 gradient echo heme sensitive images, lesion of low signal intensity measuring 6.7 mm x 4.9 mm is observed in the left mid darby. 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 No evidence of supratentorial white matter microangiopathic ischemic changes, gliosis. ASSESSMENT/PLAN: 68 y/o M w/ PMHx CAD, [place], PVD, ESRD on HD (MWF), HTN, admitted for gangrene/ osteomyelitis of the left foot on 05/16, who presented with worsening pain and discoloration of the left 4th toe and blackening and pain of the 3rd toe, now s/ p L tma (06/11/18) with one L tma revision (06/24), and recent LBKA (07/04) Gangrene of L 3rd and 4th toes with Osteomyelitis S/P BKA POD#1 (07/04) S/P revision tma (Left toes 2-4) and amputation 1st left great toe foot (); s/p L TMA sparing great toe (06/11/18) Completed Zosyn course (06/11-06/26) Continue Levaquin (06/27) Pain control via Oxycodone Podiatry (Dr. Garcia) consulted: Amputation on 06/11. Revised TMA on 06/24. CTA noted as above ID (Dr. Reyez) consulted, appreciate rec's Iv vanco order still on will d/w with ID Vanc level 07/03-.4 ICH Noted to be parenchymal and likely secondary to Hypertension CT head x2 and MRI- showed stable bleed about 6mm Neurosx d/w night team s/p fall no sx intervention indicated Seen by neuro- likely secondary to HTN, recommended tight BP control Pt off antiplatelets Mechanical fall Unclear details of fall Imaging done as noted above with intracranial hemorrhage Head CT Without contrast (07/02 @ 03:15): Approximately 5.9 mm x 3.6 mm x 4.4 mm acute hemorrhage measuring approximately 59 HU along the lateral aspect of the left thalamus, adjacent velasco radiata with mild peripharyngeal edema Head CT Without contrast (07/02 @ 08:32): Stable approximately 7 mm focal acute/subacute hemorrhage in the left thalamus, laterally. MRI Brain: There is no evidence of abnormal Restricted diffusion in the brain to suggest acute or subacute infarction. The lesion may represent cavernoma with recent hemorrhage. 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 Neurology (Dr. Claire) consulted, Appreciate rec's, Check B12, TSH, Control SBP Neurosurgery (Dr. Espinoza) was contacted by the overnight team ASA/Plavix held HTN Goal BP <140/90 Cont home dose nifedipine 60mg bid, hydralazine 100mg tid, lasix (currently on hold) Continue Lisinopril 40daily, Labetalol 200mg bid IV labetolol 20mg IV push PRN C. Diff Antigen Positive Continue PO Vanco (Started on 07/03) Anemia Likely mixed picture with acute blood loss post sx, anemia of chronic infection,ESRD and chronic antiplatelet use S/P 7 units pRBC's (2 on 07/01, 2 on 06/25, 1 on 06/26, 2 on 07/01), EBL-100ml for BKA will continue to monitor ESRD on HD (MWF) Was dialyzed today Nephro (Dr. Flaherty) consulted Vascular evaluated fistula Cont home Lasix, Sevelamer Pt requesting blood draws with dialysis CAD/PVD ASA/Plavix discontinued following ICH FEN PO Fluids Continue to monitor lytes Diabetic/Renal diet PPx no heparin at this time per vascular- s/p ICH Dispo: Will need PT eval prior to D/c Visit type - Emergency Visit Emergency Visit: Yes ED Registration Date: 06/05/18 Care time: The patient presented to the Emergency Department on the above date and was hospitalized for further evaluation of their emergent condition. - New Patient This patient is new to me today: No - Critical Care Critical Care patient: No - Discharge Referral Referred to [facility] Med P.C.: No
--- NOTE | 2018-07-05 08:10 | OP ---
DATE OF OPERATION: 07/04/2018 PREOPERATIVE DIAGNOSIS: Left foot gangrene. POSTOPERATIVE DIAGNOSIS: Left foot gangrene. PROCEDURE: Left below-knee amputation. SURGEON: Kel Farooq DO INSTRUCTOR MODELING: ROSALINE Burk BLOOD LOSS: 100 mL. The patient is a 68-year-old male that has left foot gangrene. He recently had a TMA and then a high TMA performed by Podiatry and due to his microvascular disease in his foot his flap was not healing and was not surviving. At this point he has a good palpable popliteal pulse and needs a definitive surgery in the form of a BKA operation. Patient's family was consented for the procedure understanding all risks, benefits and alternatives. Patient was given 2 units of blood prior to the operation in dialysis. Patient was then brought into the operating room, laid on the operating table in the supine manner. General anesthesia was administered to the patient. We then went ahead and michelle a stepoff incision 4 fingerbreadths below the left tibial tuberosity. We then prepped and draped the left lower extremity in a sterile surgical manner. We then went ahead and took a No. 15 blade and cut along our incision. Bovie electrocautery was used to control hemostasis. We were able to get down to the tibia. Once we got down to the tibia we were able to use Bovie electrocautery and take the muscles of the anterior compartment down. We then took the muscles of the medial compartment down and we got down to our anterior tibial artery and vein. Those were clamped. Silk 0 suture was used to tie the vessels off and 0 silk suture ligature was used to tie the inflow. We then continued to take down all muscular attachments using Bovie electrocautery. On the lateral side we were able to get down to the posterior tibial artery and vein. We were able to dissect them out and clamp them and suture ligate them with 0 silk. We then went ahead and took down the soleus muscle and got down to the peroneal artery and vein. Those were clamped and suture ligated using 0 silk. We then took down our posterior attachments of the gastroc in the posterior compartment and once all the muscular attachments were taken down using Bovie electrocautery we were able to next dissect out our fibula. Fibula was dissected anterior and posteriorly and we were able to have enough space to transect it 2 cm higher than the tibia. At this point we went ahead and took our bone saw and transected the tibia and the fibula and the limb was detached and sent to Pathology. Bovie electrocautery was used to control hemostasis. We were then able to take our bone saw and bevel our tibia and we were able to bevel it and we were able to file it down. We then went ahead and saw that the flap was in good standing and the flap was going to give ample coverage over the bone. We went ahead and irrigated the wound capaciously. We then went ahead and used 2-0 Vicryl and the fascia was approximated in an interrupted manner. We did another layer using 3-0 Vicryl and the muscular attachments were brought together. We then went ahead and used fernando and the skin was closed. We then used wet and dry. We then used Xeroform, 4 x 4's, ABD pads, Kerlix and Coban and the limb was placed in a knee immobilizer. Patient tolerated the procedure with no complications. Total blood loss 100 mL. Patient transferred to PACU in stable condition. KEL FAROOQ DO [id number]
--- NOTE | 2018-07-05 08:15 | PN ---
Progress Note, Physician Chief Complaint: Pt alert and oriented; he awaits left LE amputation today, and hopes it will stop the unrelenting pain he has from it. History of Present Illness: This is a 68 year-old man (b. Deniz), with HTN, NIDDM, ESRD on HD (M,W,F), CAD (s/p "infarct" about one year ago--treated at [facility]; never had coronary angiogram), diastolic CHF, and peripheral arterial disease/known left 4th toe osteomyelitis and gangrene, [facility], who presents with worsening, "stabbing", intermittent pain since last night. He notes that his left 4th toe is darker and his 3rd toe is black, which is completely new according to both him and his . He denies fevers/chills or any other symptoms. Vital signs on arrival are unremarkable. - Current Medication List Current Medications: Active Medications Acetaminophen (Tylenol -) 650 mg PO Q6H PRN PRN Reason: PAIN 1-3 Acetaminophen (Tylenol -) 325 mg PO Q4H PRN PRN Reason: PAIN LEVEL 4 - 6 Atorvastatin Calcium (Lipitor -) 80 mg PO HS [facility] Last Admin: 07/04/18 21:59 Dose: 80 mg Calcitriol (Rocaltrol -) 0.25 mcg PO DAILY [facility] Docusate Sodium (Colace -) 100 mg PO TID [facility] Last Admin: 07/05/18 06:12 Dose: 100 mg Ferrous Sulfate (Feosol -) 325 mg PO BID [facility] Last Admin: 07/04/18 21:59 Dose: 325 mg Furosemide (Lasix -) 40 mg PO DAILY [facility] Hydralazine HCl (Apresoline -) 100 mg PO TID [facility] Last Admin: 07/05/18 06:11 Dose: 100 mg Sodium Chloride (Normal Saline -) 1,000 mls @ 50 mls/hr IV ASDIR [facility] Stop: 07/05/18 16:32 Last Admin: 07/04/18 18:53 Dose: Not Given Sodium Chloride (Normal Saline -) 250 mls @ 3,000 mls/hr IV PRN PRN PRN Reason: Hypotension during Dialysis Stop: 07/05/18 15:18 Levofloxacin (Levaquin 250 Mg Premixed Ivpb -) 250 mg in 50 mls @ 50 mls/hr IVPB Q2D@1000 [facility]; Protocol Insulin Aspart (Novolog Vial Sliding Scale -) 1 vial SQ TIDAC [facility]; Protocol Last Admin: 07/05/18 06:24 Dose: Not Given Labetalol HCl (Normodyne -) 200 mg PO BID [facility] Last Admin: 07/04/18 22:00 Dose: 200 mg Labetalol HCl (Normodyne Injection -) 20 mg IVPUSH Q4H PRN PRN Reason: HYPERTENSION Lisinopril (Prinivil) 40 mg PO DAILY [facility] Morphine Sulfate (Morphine Sulfate) 4 mg IVPUSH Q4H PRN PRN Reason: breakthrough pain Last Admin: 07/05/18 06:12 Dose: 4 mg Nifedipine (Procardia Xl -) 60 mg PO BID [facility] Last Admin: 07/04/18 21:59 Dose: 60 mg Oxycodone HCl (Roxicodone -) 10 mg PO Q4H PRN PRN Reason: PAIN LEVEL 6-10 Last Admin: 07/05/18 05:08 Dose: 10 mg Oxycodone HCl (Roxicodone -) 5 mg PO Q4H PRN PRN Reason: PAIN LEVEL 7 - 10 Last Admin: 07/04/18 21:58 Dose: 5 mg Sevelamer Carbonate (Renvela -) 800 mg PO TIDCM [facility] Last Admin: 07/04/18 18:54 Dose: 800 mg Vancomycin HCl (Vancomycin Oral Solution) 125 mg PO Q6HPO [facility] Last Admin: 07/05/18 06:16 Dose: 125 mg - Objective Vital Signs: Vital Signs Temperature 98.6 F 07/05/18 07:10 Pulse Rate 60 07/05/18 07:15 Respiratory Rate 18 07/05/18 07:15 Blood Pressure 144/91 07/05/18 07:15 O2 Sat by Pulse Oximetry (%) 95 07/04/18 20:49 Constitutional: Yes: Anxious Eyes: Yes: WNL HENT: Yes: WNL Neck: Yes: WNL Cardiovascular: Yes: S1, S2, S4 Respiratory: Yes: WNL Gastrointestinal: Yes: Soft ...Rectal Exam: Yes: Deferred Genitourinary: No: Anuria Musculoskeletal: Yes: Muscle Weakness Extremities: Yes: Amputation, Cold (LLE) Edema: Yes (Left foot) Peripheral Pulses WNL: No Peripheral Pulses: Left Doralis Pedis: 1+ Integumentary: Yes: Other Neurological: Yes: Alert, Weakness Psychiatric: Yes: Alert, Oriented Labs: INR, PTT INR 1.18 (0.83-1.09) H 07/04/18 05:30 Abnormal Lab Results 06/30/18 11:25 Crossmatch See Detail Problem List - Problems (1) ESRD (end stage renal disease) Assessment/Plan: on hemodialysis 3x/week Code(s): N18.6 - END STAGE RENAL DISEASE (2) Anemia Code(s): D64.9 - ANEMIA, UNSPECIFIED Qualifiers: Vitamin B12 deficiency anemia type: other B12 deficiency (3) PAD (peripheral artery disease) Assessment/Plan: gangrenous toes of left foot led to amputation of all except big toe. For BKA of the left leg today. Code(s): I73.9 - PERIPHERAL VASCULAR DISEASE, UNSPECIFIED (4) AV fistula Code(s): I77.0 - ARTERIOVENOUS FISTULA, ACQUIRED (5) Diabetes Code(s): E11.9 - TYPE 2 DIABETES MELLITUS WITHOUT COMPLICATIONS Qualifiers: Diabetes mellitus type: type 2 Diabetes mellitus group home insulin use: without group home use Diabetes mellitus complication detail: with chronic kidney disease Chronic kidney disease stage: stage 5, not on chronic dialysis (6) Diastolic CHF Code(s): I50.30 - UNSPECIFIED DIASTOLIC (CONGESTIVE) HEART FAILURE (7) [place] cardiac risk >20% in next 10 years Assessment/Plan: The importance of aggressive risk-factor control was discussed in detail with pt and his daughter. Strong family hx DM; pt himself has had DM for many years. Pt is a candidate for cardiac rehabilitation (LA in the past year; mild ischemia on recent stress MIBI). Keep LDL cholesterol well below 70 mg/dL. Code(s): Z91.89 - OTH PERSONAL RISK FACTORS, NOT ELSEWHERE CLASSIFIED (8) Hypertension Assessment/Plan: On hydralaziine, nifedipine, furosemide. F/u BP serially. Consider adding ACEI, ARB, or spironolactone. Code(s): I10 - ESSENTIAL (PRIMARY) HYPERTENSION Qualifiers:
[2018-07-05 08:19] LABS: ALBUMIN 1.9 g/dl (3.4-5.0); ALK PHOS 417 U/L (45-117); ANION GAP 11 MMOL/L (8-16); BILIRUBIN,TOTAL 0.7 mg/dL (0.2-1); BLOOD UREA NITROGEN 35 mg/dL (7-18); CALCIUM 9.6 mg/dL (8.5-10.1); CHLORIDE 97 mmol/L (98-107); CO2 29 mmol/L (21-32); CREATININE 5.8 mg/dL (0.55-1.3); GLUCOSE,RANDOM 111 mg/dL (74-106); MAGNESIUM 2.6 mg/dL (1.8-2.4); PHOSPHOROUS 5.3 mg/dL (2.5-4.9); POTASSIUM 4.3 mmol/L (3.5-5.1); SGOT/AST 64 U/L (15-37); SGPT/ALT 15 U/L (13-61); SODIUM 137 mmol/L (136-145)
[2018-07-05 08:32] LABS: BASO % 0.3 % (0-2.0); EOS % 0.1 % (0-4.5); HEMATOCRIT 27.9 % (35.4-49); LYMPH % 7.7 % (8-40); MCH 28.9 pg (25.7-33.7); MCHC 32.2 g/dl (32.0-35.9); MEAN CELL VOLUME 89.7 fl (80-96); MEAN PLT VOLUME 9.2 fl (7.5-11.1); MONO % 8.6 % (3.8-10.2); NEUT % 83.3 % (42.8-82.8); PLATELET COUNT 244 K/MM3 (134-434); RDW 18.9 % (11.9-15.9); WHITE BLOOD COUNT 14.4 K/mm3 (4.0-10.0)
[2018-07-05] MEDS ORDERED: PT OWN MED DRAWER 7, Y5N ONE ×2 (09:42→23:22)
[2018-07-05 10:46] LABS: CHOLESTEROL 96 mg/dL (50-200); HDL CHOLESTEROL 34 mg/dL (40-60); TRIGLYCERIDES 106 mg/dL (0-150)
[2018-07-05] MEDS: FERROUS SO4 325 MG TABLET (FP) PO SCH ×2 (10:47→21:16)
[2018-07-05] MEDS: SEVELAMER CARBONATE 800 MG TAB (FP) PO SCH ×3 (10:48→16:49)
[2018-07-05] MEDS: NIFEdipine E.R 60 MG TABLET (UD) PO SCH ×2 (10:49→21:14)
[2018-07-05] MEDS: FUROSEMIDE 40 MG TABLET (FP) PO SCH (10:50)
[2018-07-05] MEDS: LABETALOL HCL 200 MG TABLET (FP) PO SCH ×2 (10:51→23:38)
[2018-07-05] MEDS: CALCITRIOL 0.25 MCG CAPSULE (FP) PO SCH (10:51)
[2018-07-05] MEDS: LISINOPRIL 20 MG TABLET (FP) PO SCH (10:51)
--- NOTE | 2018-07-05 11:04 | PN ---
Teaching Attending Note Name of Resident: Germania Maverick Chanstephanie ATTENDING PHYSICIAN STATEMENT Time of evaluation: 8;30 AM I saw and evaluated the patient. I reviewed the resident's note and discussed the case with the resident. I agree with the resident's findings and plan as documented with exceptions below. SUBJECTIVE: Patient seen and examined, getting HD. Pain in left leg but controlled, no headache, chest pain, dyspnea or new concerns. OBJECTIVE: Vital Signs Period Temp Pulse Resp BP Sys/Cole Pulse Ox Last 24 Hr 98.0 F-99.3 F 51-71 14-20 127-191/54-91 94-96 Intake & Output 07/02/18 07/03/18 07/04/18 07/05/18 23:59 23:59 23:59 23:59 Intake Total 60 590 100 50 Output Total 250 Balance 60 590 -150 50 General: sitting in bed in no acute distress Chest: decreased effort, no rales or wheezing Abdomen:soft, NT, ND Extremities: Left BKA with dressing in place, clean non bloody Active Medications Acetaminophen (Tylenol -) 650 mg PO Q6H PRN PRN Reason: PAIN 1-3 Acetaminophen (Tylenol -) 325 mg PO Q4H PRN PRN Reason: PAIN LEVEL 4 - 6 Atorvastatin Calcium (Lipitor -) 80 mg PO HS [facility] Last Admin: 07/04/18 21:59 Dose: 80 mg Calcitriol (Rocaltrol -) 0.25 mcg PO DAILY [facility] Last Admin: 07/05/18 10:51 Dose: 0.25 mcg Docusate Sodium (Colace -) 100 mg PO TID [facility] Last Admin: 07/05/18 06:12 Dose: 100 mg Ferrous Sulfate (Feosol -) 325 mg PO BID [facility] Last Admin: 07/05/18 10:47 Dose: 325 mg Furosemide (Lasix -) 40 mg PO DAILY [facility] Last Admin: 07/05/18 10:50 Dose: 40 mg Hydralazine HCl (Apresoline -) 100 mg PO TID [facility] Last Admin: 07/05/18 06:11 Dose: 100 mg Sodium Chloride (Normal Saline -) 250 mls @ 3,000 mls/hr IV PRN PRN PRN Reason: Hypotension during Dialysis Stop: 07/05/18 15:18 Levofloxacin (Levaquin 250 Mg Premixed Ivpb -) 250 mg in 50 mls @ 50 mls/hr IVPB Q2D@1000 [facility]; Protocol Last Admin: 07/05/18 10:48 Dose: 50 mls/hr Insulin Aspart (Novolog Vial Sliding Scale -) 1 vial SQ TIDAC [facility]; Protocol Last Admin: 07/05/18 06:24 Dose: Not Given Labetalol HCl (Normodyne -) 200 mg PO BID [facility] Last Admin: 07/05/18 10:51 Dose: Not Given Labetalol HCl (Normodyne Injection -) 20 mg IVPUSH Q4H PRN PRN Reason: HYPERTENSION Lisinopril (Prinivil) 40 mg PO DAILY [facility] Last Admin: 07/05/18 10:51 Dose: Not Given Morphine Sulfate (Morphine Sulfate) 4 mg IVPUSH Q4H PRN PRN Reason: breakthrough pain Last Admin: 07/05/18 06:12 Dose: 4 mg Nifedipine (Procardia Xl -) 60 mg PO BID [facility] Last Admin: 07/05/18 10:49 Dose: 60 mg Oxycodone HCl (Roxicodone -) 10 mg PO Q4H PRN PRN Reason: PAIN LEVEL 6-10 Last Admin: 07/05/18 05:08 Dose: 10 mg Oxycodone HCl (Roxicodone -) 5 mg PO Q4H PRN PRN Reason: PAIN LEVEL 7 - 10 Last Admin: 07/04/18 21:58 Dose: 5 mg Sevelamer Carbonate (Renvela -) 800 mg PO TIDCM [facility] Last Admin: 07/05/18 10:48 Dose: 800 mg Vancomycin HCl (Vancomycin Oral Solution) 125 mg PO Q6HPO [facility] Last Admin: 07/05/18 06:16 Dose: 125 mg Laboratory Results - last 24 hr 06/30/18 07/04/18 07/04/18 11:25 11:17 16:59 WBC RBC Hgb Hct MCV MCH MCHC RDW Plt Count MPV Absolute Neuts (auto) Neutrophils % Lymphocytes % Monocytes % Eosinophils % Basophils % Nucleated RBC % Sodium Potassium Chloride Carbon Dioxide Anion Gap BUN Creatinine Creat Clearance w eGFR POC Glucometer 97 114 Random Glucose Calcium Phosphorus Magnesium Total Bilirubin AST ALT Alkaline Phosphatase Total Protein Albumin Triglycerides Cholesterol Total LDL Cholesterol HDL Cholesterol Blood Type O POSITIVE Antibody Screen Negative Crossmatch See Detail 07/04/18 07/04/18 07/05/18 17:25 23:34 06:22 WBC RBC Hgb Hct MCV MCH MCHC RDW Plt Count MPV Absolute Neuts (auto) Neutrophils % Lymphocytes % Monocytes % Eosinophils % Basophils % Nucleated RBC % Sodium Potassium Chloride Carbon Dioxide Anion Gap BUN Creatinine Creat Clearance w eGFR POC Glucometer 116 163 120 Random Glucose Calcium Phosphorus Magnesium Total Bilirubin AST ALT Alkaline Phosphatase Total Protein Albumin Triglycerides Cholesterol Total LDL Cholesterol HDL Cholesterol Blood Type Antibody Screen Crossmatch 07/05/18 07/05/18 07/05/18 06:30 06:30 09:20 WBC 14.4 H RBC 3.10 L Hgb 9.0 L Hct 27.9 L MCV 89.7 MCH 28.9 MCHC 32.2 RDW 18.9 H Plt Count 244 MPV 9.2 Absolute Neuts (auto) 12.0 H Neutrophils % 83.3 H Lymphocytes % 7.7 L Monocytes % 8.6 Eosinophils % 0.1 D Basophils % 0.3 Nucleated RBC % 0 Sodium 137 Potassium 4.3 Chloride 97 L Carbon Dioxide 29 Anion Gap 11 BUN 35 H Creatinine 5.8 H Creat Clearance w eGFR 9.72 POC Glucometer Random Glucose 111 H Calcium 9.6 Phosphorus 5.3 H Magnesium 2.6 H Total Bilirubin 0.7 AST 64 H ALT 15 Alkaline Phosphatase 417 H Total Protein 7.0 Albumin 1.9 L Triglycerides 106 Cancelled Cholesterol 96 Cancelled Total LDL Cholesterol 52 Cancelled HDL Cholesterol 34 L Cancelled Blood Type Antibody Screen Crossmatch ASSESSMENT AND PLAN: 68 y/o man with h/o CAD, recent [place], PVD, ESRD on HD, HTN, HLP, Hep B , DM, and recent admission for L 4th toe gangrene and OM, s/p angiogram, atherectomy and angioplasty, who presented with increased pain in foot and change in L 3rd toe color. 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 -ESRD on HD -HTN Plan: Doing well post op. BP improved. Continue labetalol/nifedipine/hydralazine/lasix/lisinopril. Monitor H/h Vascular surgery input for wound care. MRIbrain noted. Neurology input appreciated. Will need neurology clearance prior to initiating DVTPPX. Hold ASA/plavix. Levaquin/vanco per ID. Follow up surgical path, d/c abx accordingly. Renal input appreciated, HD per renal. Diabetic/renal diet. DVTPPX with SCDs Dispo PT eval and dispo planning, likely SNF in 1-2 days if continues to improve. Plan discussed with patient in detail, all questions answered.
[2018-07-05] MEDS ORDERED: VANCOMYCIN 500 MG in DEXTROSE 5%-WATER - 100 ML IVPB ONE (12:43)
--- NOTE | 2018-07-05 20:12 | PN ---
Progress Note (short form) - Note Progress Note: covering dr gutierrez Problems 1. ESRD on HD 2. anemia 3. DM 4. HTN 5. toe infection/gangrene 6. PVD 7. 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 type 4 cavernous malformation Current Medications Acetaminophen (Tylenol -) 650 mg PO Q6H PRN PRN Reason: PAIN 1-3 Acetaminophen (Tylenol -) 325 mg PO Q4H PRN PRN Reason: PAIN LEVEL 4 - 6 Atorvastatin Calcium (Lipitor -) 80 mg PO HS [facility] Last Admin: 07/04/18 21:59 Dose: 80 mg Calcitriol (Rocaltrol -) 0.25 mcg PO DAILY [facility] Last Admin: 07/05/18 10:51 Dose: 0.25 mcg Docusate Sodium (Colace -) 100 mg PO TID [facility] Last Admin: 07/05/18 13:57 Dose: 100 mg Ferrous Sulfate (Feosol -) 325 mg PO BID [facility] Last Admin: 07/05/18 10:47 Dose: 325 mg Furosemide (Lasix -) 40 mg PO DAILY [facility] Last Admin: 07/05/18 10:50 Dose: 40 mg Hydralazine HCl (Apresoline -) 100 mg PO TID [facility] Last Admin: 07/05/18 13:56 Dose: 100 mg Sodium Chloride (Normal Saline -) 250 mls @ 3,000 mls/hr IV PRN PRN PRN Reason: Hypotension during Dialysis Stop: 07/05/18 15:18 Levofloxacin (Levaquin 250 Mg Premixed Ivpb -) 250 mg in 50 mls @ 50 mls/hr IVPB Q2D@1000 [facility]; Protocol Last Admin: 07/05/18 10:48 Dose: 50 mls/hr Insulin Aspart (Novolog Vial Sliding Scale -) 1 vial SQ TIDAC [facility]; Protocol Last Admin: 07/05/18 16:48 Dose: 2 unit Labetalol HCl (Normodyne -) 200 mg PO BID [facility] Last Admin: 07/05/18 10:51 Dose: Not Given Labetalol HCl (Normodyne Injection -) 20 mg IVPUSH Q4H PRN PRN Reason: HYPERTENSION Lisinopril (Prinivil) 40 mg PO DAILY [facility] Last Admin: 07/05/18 10:51 Dose: Not Given Morphine Sulfate (Morphine Sulfate) 4 mg IVPUSH Q4H PRN PRN Reason: breakthrough pain Last Admin: 07/05/18 06:12 Dose: 4 mg Nifedipine (Procardia Xl -) 60 mg PO BID [facility] Last Admin: 07/05/18 10:49 Dose: 60 mg Oxycodone HCl (Roxicodone -) 10 mg PO Q4H PRN PRN Reason: PAIN LEVEL 6-10 Last Admin: 07/05/18 05:08 Dose: 10 mg Oxycodone HCl (Roxicodone -) 5 mg PO Q4H PRN PRN Reason: PAIN LEVEL 7 - 10 Last Admin: 07/05/18 16:47 Dose: 5 mg Sevelamer Carbonate (Renvela -) 800 mg PO TIDCM [facility] Last Admin: 07/05/18 16:49 Dose: 800 mg Vancomycin HCl (Vancomycin Oral Solution) 125 mg PO Q6HPO [facility] Last Admin: 07/05/18 17:03 Dose: 125 mg Last Vital Signs Temp Pulse Resp BP Pulse Ox 98 F 63 18 140/58 L 95 07/05/18 14:00 07/05/18 14:00 07/05/18 14:00 07/05/18 14:00 07/05/18 09:00 CBC, BMP 07/05/18 06:30 07/05/18 06:30 Plan - monitor bp - encourage compliance with meds - pt getting amputation today - avoid intra-op hypo or hypertension - PO iron for now - avf 3:00 400 abf - renal diet - monitor bp
[2018-07-05] MEDS: ATORVASTATIN CA 80 MG TABLET (FP) PO SCH (21:15)
[2018-07-06] MEDS: ACETAMINOPHEN 325 MG TABLET (FP) PO PRN (00:43)
[2018-07-06] MEDS: oxyCODONE HCL 5 MG TABLET PO PRN ×3 (00:43→20:33)
[2018-07-06] MEDS: hydrALAZINE HCL 50 MG TABLET (FP) PO SCH ×3 (05:27→22:10)
[2018-07-06] MEDS: VANCOMYCIN 250 MG/5 ML ORAL SOLUTION PO SCH ×3 (05:27→17:40)
[2018-07-06] MEDS: DOCUSATE SODIUM 100 MG CAPSULE (FP) PO SCH ×3 (05:27→22:10)
[2018-07-06] MEDS: INSULIN SLIDING SCALE (NOVOLOG) 1 VIAL SQ SCH ×3 (06:44→16:48)
[2018-07-06 07:15] LABS: BASO % 0.4 % (0-2.0); EOS % 0.8 % (0-4.5); HEMATOCRIT 27.9 % (35.4-49); HEMOGLOBIN 8.8 GM/dL (11.7-16.9); LYMPH % 8.9 % (8-40); MCH 28.2 pg (25.7-33.7); MCHC 31.6 g/dl (32.0-35.9); MEAN CELL VOLUME 89.5 fl (80-96); MEAN PLT VOLUME 8.6 fl (7.5-11.1); MONO % 8.5 % (3.8-10.2); NEUT % 81.4 % (42.8-82.8); PLATELET COUNT 227 K/MM3 (134-434); RBC 3.12 M/mm3 (4.00-5.60); RDW 18.5 % (11.9-15.9); WHITE BLOOD COUNT 13.2 K/mm3 (4.0-10.0)
[2018-07-06] MEDS: SEVELAMER CARBONATE 800 MG TAB (FP) PO SCH ×3 (07:59→16:48)
[2018-07-06 08:09] LABS: ALBUMIN 1.9 g/dl (3.4-5.0); ALK PHOS 395 U/L (45-117); ANION GAP 11 MMOL/L (8-16); BILIRUBIN,TOTAL 0.7 mg/dL (0.2-1); BLOOD UREA NITROGEN 21 mg/dL (7-18); CHLORIDE 98 mmol/L (98-107); CO2 31 mmol/L (21-32); GLUCOSE,RANDOM 112 mg/dL (74-106); MAGNESIUM 2.1 mg/dL (1.8-2.4); POTASSIUM 3.7 mmol/L (3.5-5.1); SGOT/AST 66 U/L (15-37); SGPT/ALT 11 U/L (13-61); SODIUM 140 mmol/L (136-145); TOT PROT 6.9 g/dl (6.4-8.2)
[2018-07-06] MEDS: LISINOPRIL 20 MG TABLET (FP) PO SCH (09:46)
[2018-07-06] MEDS: LABETALOL HCL 200 MG TABLET (FP) PO SCH (09:46)
[2018-07-06] MEDS: FUROSEMIDE 40 MG TABLET (FP) PO SCH (09:46)
[2018-07-06] MEDS: FERROUS SO4 325 MG TABLET (FP) PO SCH ×2 (09:46→22:10)
[2018-07-06] MEDS: CALCITRIOL 0.25 MCG CAPSULE (FP) PO SCH (09:46)
[2018-07-06] MEDS: NIFEdipine E.R 60 MG TABLET (UD) PO SCH ×2 (09:47→22:10)
[2018-07-06] MEDS: LABETALOL HCL 5 MG/1 ML (100MG/20 ML VIAL) IVPUSH PRN ×2 (13:13→16:47)
--- NOTE | 2018-07-06 14:29 | PN ---
Progress Note (short form) - Note Progress Note: covering dr gutierrez Problems 1. ESRD on HD 2. anemia 3. DM 4. HTN 5. toe infection/gangrene 6. PVD 7. 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 type 4 cavernous malformation Last Vital Signs Temp Pulse Resp BP Pulse Ox 97.8 F 75 16 196/96 H 94 L 07/06/18 08:03 07/06/18 12:00 07/06/18 12:00 07/06/18 12:00 07/06/18 09:00 lungs clear heart reg abd soft nontender ext no edema CBC, BMP 07/06/18 06:00 07/06/18 06:00 IMP ESRD Dementia HTN Plan HD tomorrow -
--- NOTE | 2018-07-06 15:54 | PN ---
Physical Exam: SUBJECTIVE: Patient seen and examined, denies any pain currently, no chest pain , headache, visual disturbances, abdominal or urinary symptoms. OBJECTIVE: Vital Signs Period Temp Pulse Resp BP Sys/Cole Pulse Ox Last 24 Hr 97.8 F-99.2 F 64-75 16-20 136-196/53-96 94-95 GENERAL: AA, oriented , no acute distress Chest: decreased effort, no rales or wheezing Abdomen:Soft, NT, positive bowel sounds Extremities;Left BKA dressing, no active bleed or discharge noted. Laboratory Results - last 24 hr 07/05/18 07/06/18 07/06/18 16:38 06:00 06:00 WBC 13.2 H RBC 3.12 L Hgb 8.8 L Hct 27.9 L MCV 89.5 MCH 28.2 MCHC 31.6 L RDW 18.5 H Plt Count 227 MPV 8.6 Absolute Neuts (auto) 10.8 H Neutrophils % 81.4 Lymphocytes % 8.9 Monocytes % 8.5 Eosinophils % 0.8 D Basophils % 0.4 Nucleated RBC % 0 Sodium 140 Potassium 3.7 Chloride 98 Carbon Dioxide 31 Anion Gap 11 BUN 21 H Creatinine 4.0 H Creat Clearance w eGFR 14.92 POC Glucometer 163 Random Glucose 112 H Calcium 9.0 Phosphorus 3.0 Magnesium 2.1 Total Bilirubin 0.7 AST 66 H ALT 11 L Alkaline Phosphatase 395 H Total Protein 6.9 Albumin 1.9 L 07/06/18 07/06/18 06:21 11:14 WBC RBC Hgb Hct MCV MCH MCHC RDW Plt Count MPV Absolute Neuts (auto) Neutrophils % Lymphocytes % Monocytes % Eosinophils % Basophils % Nucleated RBC % Sodium Potassium Chloride Carbon Dioxide Anion Gap BUN Creatinine Creat Clearance w eGFR POC Glucometer 133 128 Random Glucose Calcium Phosphorus Magnesium Total Bilirubin AST ALT Alkaline Phosphatase Total Protein Albumin Active Medications Generic Name Dose Route Start Last Admin Trade Name Freq PRN Reason Stop Dose Admin Acetaminophen 650 mg 07/04/18 16:55 Tylenol - PO Q6H PRN PAIN 1-3 Acetaminophen 325 mg 07/04/18 16:55 07/06/18 00:43 Tylenol - PO 325 mg Q4H PRN Administration PAIN LEVEL 4 - 6 Atorvastatin Calcium 80 mg 07/04/18 22:00 07/05/18 21:15 Lipitor - PO 80 mg HS [facility] Administration Calcitriol 0.25 mcg 10/20/18 10:00 07/06/18 09:46 Rocaltrol - PO 0.25 mcg DAILY [facility] Administration Docusate Sodium 100 mg 07/04/18 22:00 07/06/18 13:13 Colace - PO 100 mg TID [facility] Administration Ferrous Sulfate 325 mg 07/04/18 22:00 07/06/18 09:46 Feosol - PO 325 mg BID [facility] Administration Furosemide 40 mg 07/05/18 10:00 07/06/18 09:46 Lasix - PO 40 mg DAILY [facility] Administration Hydralazine HCl 100 mg 07/04/18 22:00 07/06/18 13:13 Apresoline - PO 100 mg TID [facility] Administration Sodium Chloride 250 mls @ 3,000 mls/hr 07/04/18 16:55 Normal Saline - IV 07/05/18 15:18 PRN PRN Hypotension during Dialysis Levofloxacin 250 mg in 50 mls @ 50 mls/hr 07/05/18 10:00 07/05/18 10:48 Levaquin 250 Mg Premixed Ivpb - IVPB 50 mls/hr Q2D@1000 [facility] Administration Protocol Sodium Chloride 250 mls @ 3,000 mls/hr 07/06/18 14:38 Normal Saline - IV 07/07/18 14:39 PRN PRN Hypotension during Dialysis Insulin Aspart 1 vial 07/05/18 07:00 07/06/18 11:45 Novolog Vial Sliding Scale - SQ Not Given TIDAC [facility] Protocol Labetalol HCl 20 mg 07/04/18 16:55 07/06/18 13:13 Normodyne Injection - IVPUSH 20 mg Q4H PRN Administration HYPERTENSION Labetalol HCl 300 mg 07/06/18 15:50 Normodyne - PO BID [facility] Lisinopril 40 mg 07/05/18 10:00 07/06/18 09:46 Prinivil PO 40 mg DAILY [facility] Administration Morphine Sulfate 4 mg 07/04/18 16:16 07/05/18 06:12 Morphine Sulfate IVPUSH 4 mg Q4H PRN Administration breakthrough pain Nifedipine 60 mg 07/04/18 22:00 07/06/18 09:47 Procardia Xl - PO 60 mg BID [facility] Administration Oxycodone HCl 10 mg 07/04/18 16:17 07/06/18 07:56 Roxicodone - PO 10 mg Q4H PRN Administration PAIN LEVEL 6-10 Oxycodone HCl 5 mg 07/04/18 16:55 07/06/18 00:43 Roxicodone - PO 5 mg Q4H PRN Administration PAIN LEVEL 7 - 10 Sevelamer Carbonate 800 mg 07/04/18 17:30 07/06/18 11:51 Renvela - PO 800 mg TIDCM [facility] Administration Vancomycin HCl 125 mg 07/04/18 18:00 07/06/18 11:51 Vancomycin Oral Solution PO 125 mg Q6HPO [facility] Administration ASSESSMENT/PLAN: 68 y/o man with h/o CAD, recent [place], PVD, ESRD on HD, HTN, HLP, Hep B , DM, and recent admission for L 4th toe gangrene and OM, s/p angiogram, atherectomy and angioplasty, who presented with increased pain in foot and change in L 3rd toe color. 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 -ESRD on HD -HTN Plan: Doing well post op. Intermittent hypertensive episodes. Pain control, continue labetalol IV prn. INcrease PO labetalol to 300 mg BID. Continue nifedipine/hydralazine/lasix/lisinopril. Monitor H/h Vascular surgery input for wound care. MRI brain noted. Neurology input appreciated. Discuss with neurology when ok to resume heparin. Hold ASA/plavix, resume per neurology/cardiology. Levaquin/vanco per ID. Follow up surgical path, d/c abx accordingly. Renal input appreciated, HD per renal. Diabetic/renal diet. DVTPPX with SCDs Dispo PT eval and dispo planning, likely SNF in 2-3 days if continues to improve. Plan discussed with patient and nursing in detail, all questions answered. Visit type - Emergency Visit Emergency Visit: Yes ED Registration Date: 06/05/18 Care time: The patient presented to the Emergency Department on the above date and was hospitalized for further evaluation of their emergent condition. - New Patient This patient is new to me today: No - Critical Care Critical Care patient: No - Discharge Referral Referred to [facility] No
[2018-07-06] MEDS: LABETALOL HCL 100 MG TABLET (FP) PO SCH ×2 (16:48→22:10)
[2018-07-06] MEDS: morphine SULFATE 4 MG/ML VIAL IVPUSH PRN (20:33)
[2018-07-06] MEDS: ATORVASTATIN CA 80 MG TABLET (FP) PO SCH (22:10)
[2018-07-07] MEDS: VANCOMYCIN 250 MG/5 ML ORAL SOLUTION PO SCH ×5 (00:45→23:19)
[2018-07-07] MEDS: oxyCODONE HCL 5 MG TABLET PO PRN ×2 (00:45→15:25)
[2018-07-07] MEDS: hydrALAZINE HCL 50 MG TABLET (FP) PO SCH ×3 (06:34→21:26)
[2018-07-07] MEDS: DOCUSATE SODIUM 100 MG CAPSULE (FP) PO SCH ×3 (06:34→21:26)
[2018-07-07] MEDS: INSULIN SLIDING SCALE (NOVOLOG) 1 VIAL SQ SCH ×4 (06:35→18:18)
--- NOTE | 2018-07-07 07:16 | PN ---
Teaching Attending Note Name of Resident: Linda Agrawal ATTENDING PHYSICIAN STATEMENT I saw and evaluated the patient. I reviewed the resident's note and discussed the case with the resident. I agree with the resident's findings and plan as documented with exceptions below. SUBJECTIVE: Patient seen and examined. Denies any headache, chest pain, palpitations or dyspnea. No current left leg pain. OBJECTIVE: Vital Signs Period Temp Pulse Resp BP Sys/Cole Pulse Ox Last 24 Hr 97.8 F-98.4 F 60-76 16-20 130-196/53-96 94-97 Intake & Output 07/04/18 07/05/18 07/06/18 07/07/18 23:59 23:59 23:59 23:59 Intake Total 100 740 240 60 Output Total 250 0 Balance -150 740 240 60 General: sitting in bed in no acute distress Chest: decreased effort, bibasilar rales Abdomen:soft, NT, positive bowel sounds Extremities: left BKA with dressing Active Medications Acetaminophen (Tylenol -) 650 mg PO Q6H PRN PRN Reason: PAIN 1-3 Acetaminophen (Tylenol -) 325 mg PO Q4H PRN PRN Reason: PAIN LEVEL 4 - 6 Last Admin: 07/06/18 00:43 Dose: 325 mg Atorvastatin Calcium (Lipitor -) 80 mg PO HS [facility] Last Admin: 07/06/18 22:10 Dose: 80 mg Calcitriol (Rocaltrol -) 0.25 mcg PO DAILY [facility] Last Admin: 07/06/18 09:46 Dose: 0.25 mcg Docusate Sodium (Colace -) 100 mg PO TID [facility] Last Admin: 07/07/18 06:34 Dose: 100 mg Ferrous Sulfate (Feosol -) 325 mg PO BID [facility] Last Admin: 07/06/18 22:10 Dose: 325 mg Furosemide (Lasix -) 40 mg PO DAILY [facility] Last Admin: 07/06/18 09:46 Dose: 40 mg Hydralazine HCl (Apresoline -) 100 mg PO TID [facility] Last Admin: 07/07/18 06:34 Dose: 100 mg Sodium Chloride (Normal Saline -) 250 mls @ 3,000 mls/hr IV PRN PRN PRN Reason: Hypotension during Dialysis Stop: 07/05/18 15:18 Levofloxacin (Levaquin 250 Mg Premixed Ivpb -) 250 mg in 50 mls @ 50 mls/hr IVPB Q2D@1000 [facility]; Protocol Last Admin: 07/05/18 10:48 Dose: 50 mls/hr Sodium Chloride (Normal Saline -) 250 mls @ 3,000 mls/hr IV PRN PRN PRN Reason: Hypotension during Dialysis Stop: 07/07/18 14:39 Insulin Aspart (Novolog Vial Sliding Scale -) 1 vial SQ TIDAC [facility]; Protocol Last Admin: 07/07/18 06:35 Dose: Not Given Labetalol HCl (Normodyne Injection -) 20 mg IVPUSH Q4H PRN PRN Reason: HYPERTENSION Last Admin: 07/06/18 16:47 Dose: 20 mg Labetalol HCl (Normodyne -) 300 mg PO BID [facility] Last Admin: 07/06/18 22:10 Dose: 300 mg Lisinopril (Prinivil) 40 mg PO DAILY [facility] Last Admin: 07/06/18 09:46 Dose: 40 mg Morphine Sulfate (Morphine Sulfate) 4 mg IVPUSH Q4H PRN PRN Reason: breakthrough pain Last Admin: 07/06/18 20:33 Dose: 4 mg Nifedipine (Procardia Xl -) 60 mg PO BID [facility] Last Admin: 07/06/18 22:10 Dose: 60 mg Oxycodone HCl (Roxicodone -) 10 mg PO Q4H PRN PRN Reason: PAIN LEVEL 6-10 Last Admin: 07/06/18 20:33 Dose: 10 mg Oxycodone HCl (Roxicodone -) 5 mg PO Q4H PRN PRN Reason: PAIN LEVEL 7 - 10 Last Admin: 07/07/18 00:45 Dose: 5 mg Sevelamer Carbonate (Renvela -) 800 mg PO TIDCM [facility] Last Admin: 07/06/18 16:48 Dose: 800 mg Vancomycin HCl (Vancomycin Oral Solution) 125 mg PO Q6HPO [facility] Last Admin: 07/07/18 06:34 Dose: 125 mg Laboratory Results - last 24 hr 07/06/18 07/06/18 07/07/18 16:29 22:09 06:00 WBC 12.2 H RBC 2.88 L Hgb 8.2 L Hct 25.6 L MCV 89.0 MCH 28.6 MCHC 32.2 RDW 18.4 H Plt Count 213 MPV 9.1 Absolute Neuts (auto) 10.1 H Neutrophils % 82.9 H Lymphocytes % 8.6 Monocytes % 7.5 Eosinophils % 0.5 Basophils % 0.5 Nucleated RBC % 0 Sodium Potassium Chloride Carbon Dioxide Anion Gap BUN Creatinine Creat Clearance w eGFR POC Glucometer 160 146 Random Glucose Calcium Magnesium Total Bilirubin AST ALT Alkaline Phosphatase Total Protein Albumin 07/07/18 07/07/18 07/07/18 06:33 11:27 11:37 WBC RBC Hgb Hct MCV MCH MCHC RDW Plt Count MPV Absolute Neuts (auto) Neutrophils % Lymphocytes % Monocytes % Eosinophils % Basophils % Nucleated RBC % Sodium 139 Potassium 4.2 Chloride 96 L Carbon Dioxide 30 Anion Gap 13 BUN 35 H Creatinine 5.9 H Creat Clearance w eGFR 9.53 POC Glucometer 107 119 Random Glucose 91 Calcium 9.3 Magnesium 2.2 Total Bilirubin 0.8 AST 94 H ALT 10 L Alkaline Phosphatase 355 H Total Protein 7.0 Albumin 1.9 L Microbiology 07/02/18 11:00 Stool Clostridium difficile Antigen (LEONOR) - Final 07/02/18 11:00 Stool Clostridium difficile Toxin Assay - Final 06/27/18 19:30 Blood - Peripheral Venous Blood Culture - Final NO GROWTH AFTER 5 DAYS INCUBATION 06/27/18 17:30 Blood - Peripheral Venous Blood Culture - Final NO GROWTH AFTER 5 DAYS INCUBATION 06/24/18 10:44 Foot - Lt Transmetatarsal Amp Site Gram Stain - Final 06/24/18 10:44 Foot - Lt Transmetatarsal Amp Site Wound Culture - Final Aeromonas Hydrophilia Group 06/24/18 10:56 Foot - Lt Transmetatarsal Amp Site Gram Stain - Final 06/24/18 10:56 Foot - Lt Transmetatarsal Amp Site Wound Culture - Final Stenotrophomon.(X.)Maltophilia 06/05/18 11:10 Blood - Peripheral Venous Blood Culture - Final NO GROWTH AFTER 5 DAYS INCUBATION 06/05/18 11:10 Blood - Peripheral Venous Blood Culture - Final NO GROWTH AFTER 5 DAYS INCUBATION ASSESSMENT AND PLAN: 68 y/o man with h/o CAD, recent [place], PVD, ESRD on HD, HTN, HLP, Hep B , DM, and recent admission for L 4th toe gangrene and OM, s/p angiogram, atherectomy and angioplasty, who presented with increased pain in foot and change in L 3rd toe color. 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 -ESRD on HD -HTN Plan: Doing well post op. Intermittent hypertensive episodes, likely pain related. Morphine/oxycodone for pain. Pain control, continue labetalol IV prn. Increased PO labetalol to 300 mg BID. Continue nifedipine/hydralazine/lasix/lisinopril. Monitor H/h Vascular surgery input for wound care. MRI brain noted. Neurology input appreciated. Discuss with neurology when ok to resume heparin. Hold ASA/plavix, resume per neurology/cardiology. Levaquin/vanco per ID. Follow up surgical path. Renal input appreciated, HD per renal. Diabetic/renal diet. DVTPPX with SCDs Dispo PT eval and dispo planning, likely SNF in 2-3 days if continues to improve. Plan discussed with patien, all questions answered.
[2018-07-07] MEDS: SEVELAMER CARBONATE 800 MG TAB (FP) PO SCH ×3 (08:14→17:00)
[2018-07-07] MEDS: CALCITRIOL 0.25 MCG CAPSULE (FP) PO SCH (09:28)
[2018-07-07] MEDS: FERROUS SO4 325 MG TABLET (FP) PO SCH ×2 (09:28→21:26)
[2018-07-07] MEDS: LISINOPRIL 20 MG TABLET (FP) PO SCH ×2 (10:54→17:00)
[2018-07-07] MEDS: LABETALOL HCL 100 MG TABLET (FP) PO SCH ×2 (10:54→21:27)
[2018-07-07] MEDS: NIFEdipine E.R 60 MG TABLET (UD) PO SCH ×3 (10:54→21:27)
[2018-07-07] MEDS: FUROSEMIDE 40 MG TABLET (FP) PO SCH ×2 (10:54→15:31)
[2018-07-07 12:04] LABS: BASO % 0.5 % (0-2.0); EOS % 0.5 % (0-4.5); HEMATOCRIT 25.6 % (35.4-49); HEMOGLOBIN 8.2 GM/dL (11.7-16.9); LYMPH % 8.6 % (8-40); MCH 28.6 pg (25.7-33.7); MCHC 32.2 g/dl (32.0-35.9); MEAN PLT VOLUME 9.1 fl (7.5-11.1); MONO % 7.5 % (3.8-10.2); NEUT % 82.9 % (42.8-82.8); PLATELET COUNT 213 K/MM3 (134-434); RBC 2.88 M/mm3 (4.00-5.60); RDW 18.4 % (11.9-15.9); WHITE BLOOD COUNT 12.2 K/mm3 (4.0-10.0)
[2018-07-07 12:52] LABS: ALBUMIN 1.9 g/dl (3.4-5.0); ALK PHOS 355 U/L (45-117); ANION GAP 13 MMOL/L (8-16); BILIRUBIN,TOTAL 0.8 mg/dL (0.2-1); BLOOD UREA NITROGEN 35 mg/dL (7-18); CALCIUM 9.3 mg/dL (8.5-10.1); CHLORIDE 96 mmol/L (98-107); CO2 30 mmol/L (21-32); CREATININE 5.9 mg/dL (0.55-1.3); GLUCOSE,RANDOM 91 mg/dL (74-106); MAGNESIUM 2.2 mg/dL (1.8-2.4); POTASSIUM 4.2 mmol/L (3.5-5.1); SGOT/AST 94 U/L (15-37); SGPT/ALT 10 U/L (13-61); SODIUM 139 mmol/L (136-145)
--- NOTE | 2018-07-07 13:13 | PN ---
Progress Note (short form) - Note Progress Note: 68yo M s/p Left BKA, seen and examined at bedside. Pt has had no fever, chills , n/v. Pt states pain controlled in leg. PE: Gen: resting comfortably Resp: breathing comfortably Ext: LLE shows clean incision line s/p BKA, no erythema or discharge. Clean dressing placed. Plan: -Continue daily dressing changes with clean dry dressing. -abx per ID/medicine -DVT ppx
[2018-07-07] MEDS ORDERED: SODIUM CHLORIDE 250 ML IV PRN (14:38)
--- NOTE | 2018-07-07 15:20 | PN ---
Progress Note, Physician History of Present Illness: Pt seen and examined at bedside. He tolerated HD. - Current Medication List Current Medications: Active Medications Acetaminophen (Tylenol -) 650 mg PO Q6H PRN PRN Reason: PAIN 1-3 Acetaminophen (Tylenol -) 325 mg PO Q4H PRN PRN Reason: PAIN LEVEL 4 - 6 Last Admin: 07/06/18 00:43 Dose: 325 mg Atorvastatin Calcium (Lipitor -) 80 mg PO HS [facility] Last Admin: 07/06/18 22:10 Dose: 80 mg Calcitriol (Rocaltrol -) 0.25 mcg PO DAILY [facility] Last Admin: 07/07/18 09:28 Dose: 0.25 mcg Docusate Sodium (Colace -) 100 mg PO TID [facility] Last Admin: 07/07/18 06:34 Dose: 100 mg Ferrous Sulfate (Feosol -) 325 mg PO BID [facility] Last Admin: 07/07/18 09:28 Dose: 325 mg Furosemide (Lasix -) 40 mg PO DAILY [facility] Last Admin: 07/07/18 10:54 Dose: Not Given Hydralazine HCl (Apresoline -) 100 mg PO TID [facility] Last Admin: 07/07/18 06:34 Dose: 100 mg Insulin Aspart (Novolog Vial Sliding Scale -) 1 vial SQ TIDAC [facility]; Protocol Last Admin: 07/07/18 11:41 Dose: Not Given Labetalol HCl (Normodyne Injection -) 20 mg IVPUSH Q4H PRN PRN Reason: HYPERTENSION Last Admin: 07/06/18 16:47 Dose: 20 mg Labetalol HCl (Normodyne -) 300 mg PO BID [facility] Last Admin: 07/07/18 10:54 Dose: Not Given Lisinopril (Prinivil) 40 mg PO DAILY [facility] Last Admin: 07/07/18 10:54 Dose: Not Given Morphine Sulfate (Morphine Sulfate) 4 mg IVPUSH Q4H PRN PRN Reason: breakthrough pain Last Admin: 07/06/18 20:33 Dose: 4 mg Nifedipine (Procardia Xl -) 60 mg PO BID [facility] Last Admin: 07/07/18 10:54 Dose: Not Given Oxycodone HCl (Roxicodone -) 10 mg PO Q4H PRN PRN Reason: PAIN LEVEL 6-10 Last Admin: 07/06/18 20:33 Dose: 10 mg Oxycodone HCl (Roxicodone -) 5 mg PO Q4H PRN PRN Reason: PAIN LEVEL 7 - 10 Last Admin: 07/07/18 00:45 Dose: 5 mg Sevelamer Carbonate (Renvela -) 800 mg PO TIDCM [facility] Last Admin: 07/07/18 11:43 Dose: 800 mg Vancomycin HCl (Vancomycin Oral Solution) 125 mg PO Q6HPO [facility] Last Admin: 07/07/18 11:43 Dose: 125 mg - Objective Vital Signs: Vital Signs Temperature 98.2 F 07/07/18 08:30 Pulse Rate 60 07/07/18 14:42 Respiratory Rate 18 07/07/18 14:42 Blood Pressure 152/56 L 07/07/18 14:42 O2 Sat by Pulse Oximetry (%) 97 07/07/18 09:00 Constitutional: Yes: Calm Eyes: Yes: Conjunctiva Clear HENT: Yes: Atraumatic Neck: Yes: Supple Cardiovascular: Yes: S1, S2 Respiratory: Yes: CTA Bilaterally Gastrointestinal: Yes: Normal Bowel Sounds, Soft Genitourinary: Yes: WNL Musculoskeletal: Yes: WNL, Other (left bka) Edema: No Neurological: Yes: Oriented Psychiatric: Yes: Oriented Labs: CBC, BMP 07/07/18 06:00 07/07/18 11:37 INR, PTT INR 1.18 (0.83-1.09) H 07/04/18 05:30 Problem List - Problems (1) ESRD (end stage renal disease) Code(s): N18.6 - END STAGE RENAL DISEASE (2) Gangrene Code(s): I96 - GANGRENE, NOT ELSEWHERE CLASSIFIED (3) PAD (peripheral artery disease) Code(s): I73.9 - PERIPHERAL VASCULAR DISEASE, UNSPECIFIED Assessment/Plan Current Medications Generic Name Dose Route Start Last Admin Trade Name Freq PRN Reason Stop Dose Admin Acetaminophen 650 mg 07/04/18 16:55 Tylenol - PO Q6H PRN PAIN 1-3 Acetaminophen 325 mg 07/04/18 16:55 07/06/18 00:43 Tylenol - PO 325 mg Q4H PRN Administration PAIN LEVEL 4 - 6 Atorvastatin Calcium 80 mg 07/04/18 22:00 07/06/18 22:10 Lipitor - PO 80 mg HS [facility] Administration Calcitriol 0.25 mcg 07/05/18 10:00 07/07/18 09:28 Rocaltrol - PO 0.25 mcg DAILY [facility] Administration Docusate Sodium 100 mg 07/04/18 22:00 07/07/18 06:34 Colace - PO 100 mg TID [facility] Administration Ferrous Sulfate 325 mg 07/04/18 22:00 07/07/18 09:28 Feosol - PO 325 mg BID [facility] Administration Furosemide 40 mg 07/05/18 10:00 07/07/18 10:54 Lasix - PO Not Given DAILY [facility] Hydralazine HCl 100 mg 07/04/18 22:00 07/07/18 06:34 Apresoline - PO 100 mg TID [facility] Administration Insulin Aspart 1 vial 07/05/18 07:00 07/07/18 11:41 Novolog Vial Sliding Scale - SQ Not Given TIDAC [facility] Protocol Labetalol HCl 20 mg 07/04/18 16:55 07/06/18 16:47 Normodyne Injection - IVPUSH 20 mg Q4H PRN Administration HYPERTENSION Labetalol HCl 300 mg 07/06/18 16:15 07/07/18 10:54 Normodyne - PO Not Given BID [facility] Lisinopril 40 mg 07/05/18 10:00 07/07/18 10:54 Prinivil PO Not Given DAILY [facility] Morphine Sulfate 4 mg 07/04/18 16:16 07/06/18 20:33 Morphine Sulfate IVPUSH 4 mg Q4H PRN Administration breakthrough pain Nifedipine 60 mg 07/04/18 22:00 07/07/18 10:54 Procardia Xl - PO Not Given BID [facility] Oxycodone HCl 10 mg 07/04/18 16:17 07/06/18 20:33 Roxicodone - PO 10 mg Q4H PRN Administration PAIN LEVEL 6-10 Oxycodone HCl 5 mg 07/04/18 16:55 07/07/18 00:45 Roxicodone - PO 5 mg Q4H PRN Administration PAIN LEVEL 7 - 10 Sevelamer Carbonate 800 mg 07/04/18 17:30 07/07/18 11:43 Renvela - PO 800 mg TIDCM [facility] Administration Vancomycin HCl 125 mg 07/04/18 18:00 07/07/18 11:43 Vancomycin Oral Solution PO 125 mg Q6HPO [facility] Administration Impression 1. ESRD on HD 2. anemia 3. DM 4. HTN 5. toe infection/gangrene 6. PVD 7. 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 type 4 cavernous malformation Plan - HD today - cont bp meds - please do not hold bp meds on HD days - cont wound care - PO iron for now - avf 3:00 400 abf - renal diet - monitor bp
--- NOTE | 2018-07-07 17:16 | PN ---
Physical Exam: SUBJECTIVE: Patient seen and examined this morning. No new complaints. Requested pain meds x 2. Continues to have pain. Denies any fevers, chills, chest pain, SOB, nausea, vomiting. OBJECTIVE: Vital Signs Period Temp Pulse Resp BP Sys/Cole Pulse Ox Last 24 Hr 97.9 F-99.0 F 56-68 17-20 130-188/53-77 97-97 GENERAL: A&Ox3, NAD, lying in bed comfortably HEAD: NCAT EYES: L eye non-reactive s/p cataract surgery. R eye wnl. EOMI. ENT: Oropharynx clear without exudates, MMM NECK: supple, No JVD LUNGS: Breath sounds equal, clear to auscultation bilaterally, no wheezes HEART: Regular rate and rhythm, S1, S2, Systolic murmur at the LLSB ABDOMEN: Soft, nontender, nondistended, normoactive bowel sounds, no guarding EXTREMITIES: 2+ pulses, no RLE edema. Dried, clean and intact LLE external dressing. Wound not viewed as awaiting first dressing change per vascular surgery. Gross Right lower extremity sensation intact b/l. NEUROLOGICAL: Cranial nerves II through XII grossly intact. Normal speech. Laboratory Results - last 24 hr 07/06/18 07/06/18 07/07/18 16:29 22:09 06:00 WBC 12.2 H RBC 2.88 L Hgb 8.2 L Hct 25.6 L MCV 89.0 MCH 28.6 MCHC 32.2 RDW 18.4 H Plt Count 213 MPV 9.1 Absolute Neuts (auto) 10.1 H Neutrophils % 82.9 H Lymphocytes % 8.6 Monocytes % 7.5 Eosinophils % 0.5 Basophils % 0.5 Nucleated RBC % 0 Sodium Potassium Chloride Carbon Dioxide Anion Gap BUN Creatinine Creat Clearance w eGFR POC Glucometer 160 146 Random Glucose Calcium Magnesium Total Bilirubin AST ALT Alkaline Phosphatase Total Protein Albumin 07/07/18 07/07/18 07/07/18 06:33 11:27 11:37 WBC RBC Hgb Hct MCV MCH MCHC RDW Plt Count MPV Absolute Neuts (auto) Neutrophils % Lymphocytes % Monocytes % Eosinophils % Basophils % Nucleated RBC % Sodium 139 Potassium 4.2 Chloride 96 L Carbon Dioxide 30 Anion Gap 13 BUN 35 H Creatinine 5.9 H Creat Clearance w eGFR 9.53 POC Glucometer 107 119 Random Glucose 91 Calcium 9.3 Magnesium 2.2 Total Bilirubin 0.8 AST 94 H ALT 10 L Alkaline Phosphatase 355 H Total Protein 7.0 Albumin 1.9 L Microbiology 07/02/18 11:00 Stool Clostridium difficile Antigen (LEONOR) - Final 07/02/18 11:00 Stool Clostridium difficile Toxin Assay - Final 06/27/18 19:30 Blood - Peripheral Venous Blood Culture - Final NO GROWTH AFTER 5 DAYS INCUBATION 06/27/18 17:30 Blood - Peripheral Venous Blood Culture - Final NO GROWTH AFTER 5 DAYS INCUBATION 06/24/18 10:44 Foot - Lt Transmetatarsal Amp Site Gram Stain - Final 06/24/18 10:44 Foot - Lt Transmetatarsal Amp Site Wound Culture - Final Aeromonas Hydrophilia Group 06/24/18 10:56 Foot - Lt Transmetatarsal Amp Site Gram Stain - Final 06/24/18 10:56 Foot - Lt Transmetatarsal Amp Site Wound Culture - Final Stenotrophomon.(X.)Maltophilia 06/05/18 11:10 Blood - Peripheral Venous Blood Culture - Final NO GROWTH AFTER 5 DAYS INCUBATION 06/05/18 11:10 Blood - Peripheral Venous Blood Culture - Final NO GROWTH AFTER 5 DAYS INCUBATION Active Medications Acetaminophen (Tylenol -) 650 mg PO Q6H PRN PRN Reason: PAIN 1-3 Acetaminophen (Tylenol -) 325 mg PO Q4H PRN PRN Reason: PAIN LEVEL 4 - 6 Last Admin: 07/06/18 00:43 Dose: 325 mg Atorvastatin Calcium (Lipitor -) 80 mg PO [facility] Last Admin: 07/06/18 22:10 Dose: 80 mg Calcitriol (Rocaltrol -) 0.25 mcg PO DAILY [facility] Last Admin: 07/07/18 09:28 Dose: 0.25 mcg Docusate Sodium (Colace -) 100 mg PO TID [facility] Last Admin: 07/07/18 15:24 Dose: 100 mg Ferrous Sulfate (Feosol -) 325 mg PO BID [facility] Last Admin: 07/07/18 09:28 Dose: 325 mg Furosemide (Lasix -) 40 mg PO DAILY [facility] Last Admin: 07/07/18 15:31 Dose: 40 mg Hydralazine HCl (Apresoline -) 100 mg PO TID [facility] Last Admin: 07/07/18 15:29 Dose: Not Given Insulin Aspart (Novolog Vial Sliding Scale -) 1 vial SQ TIDAC [facility]; Protocol Last Admin: 07/07/18 11:41 Dose: Not Given Labetalol HCl (Normodyne Injection -) 20 mg IVPUSH Q4H PRN PRN Reason: HYPERTENSION Last Admin: 07/06/18 16:47 Dose: 20 mg Labetalol HCl (Normodyne -) 300 mg PO BID [facility] Last Admin: 07/06/18 22:10 Dose: 300 mg Lisinopril (Prinivil) 40 mg PO DAILY [facility] Last Admin: 07/06/18 09:46 Dose: 40 mg Morphine Sulfate (Morphine Sulfate) 4 mg IVPUSH Q4H PRN PRN Reason: breakthrough pain Last Admin: 07/06/18 20:33 Dose: 4 mg Nifedipine (Procardia Xl -) 60 mg PO BID [facility] Last Admin: 07/07/18 15:31 Dose: 60 mg Oxycodone HCl (Roxicodone -) 10 mg PO Q4H PRN PRN Reason: PAIN LEVEL 6-10 Last Admin: 07/07/18 15:25 Dose: 10 mg Oxycodone HCl (Roxicodone -) 5 mg PO Q4H PRN PRN Reason: PAIN LEVEL 7 - 10 Last Admin: 07/07/18 00:45 Dose: 5 mg Senna (Senna -) 1 tab PO BID [facility] Sevelamer Carbonate (Renvela -) 800 mg PO TIDCM [facility] Last Admin: 07/07/18 11:43 Dose: 800 mg Vancomycin HCl (Vancomycin Oral Solution) 125 mg PO Q6HPO [facility] Last Admin: 07/07/18 11:43 Dose: 125 mg IMAGING: -EKG: NORMAL SINUS RHYTHM, NONSPECIFIC T WAVE ABNORMALITY -EKG done (06/10) revealed new T-wave inversions in lateral leads, -Left Foot XRay (06/05): No fracture or osteomyelitis. -Left Foot XRay (06/12):Status post transmetatarsal amputation left second through fifth digits. Alignment maintained. -Left Foot XRay (06/26): Imaging reveals loss of bone density, heavy vascular calcifications and amputation of the toes with the metatarsal bases remain. There is some soft tissue swelling with bandage artifact. -CT ANGIOGRAM OF THE ABDOMEN AND PELVIS WITH BILATERAL LOWER EXTREMITY RUNOFFS: Predominant distal arterial disease suggestive of diabetic and/or nephrogenic vasculopathy. Predominant disease in the distal left popliteal and infrapopliteal arteries demonstrating interval improvement in flow and mild improvement in the degree of stenosis described on the prior exam, as described above. Essential flow to the foot is provided by the MIGUELITO. Peroneal artery is occluded and [employer] demonstrate short segmental occlusions with reconstitution of flow in the plantar artery which demonstrate robust flow. Flow is seen in the digital arteries. Predominant right infrapopliteal disease, as described above, grossly unchanged since the prior exam. Subcutaneous edema with mesenteric stranding possibly due to third spacing/anasarca. Under distended urinary bladder with suggestion of wall thickening. Correlate clinically for cystitis. -CXR: Since 05/14/2018 again noted is the large heart, sclerotic knob and prominent central markings. An acute process is not seen. -R Hip XRay: Within the limitation of examination, the visualized osseous structures appear intact, no acute bony abnormalities are seen. -L Knee XRay: No acute fracture is seen. No evidence of suprapatellar joint effusion. Vascular calcifications. -Head CT Without contrast (07/02 @ 03:15): Approximately 5.9 mm x 3.6 mm x 4.4 mm acute hemorrhage measuring approximately 59 HU along the lateral aspect of the left thalamus, adjacent velasco radiata with mild peripharyngeal edema, The location of the hemorrhage likely related to hypertension. Clinical correlation. No CT evidence of acute territorial ischemic changes. No evidence of subarachnoid hemorrhage. No evidence of acute subdural, epidural hematoma. No evidence of skull fracture -Head CT Without contrast (07/02 @ 08:32): Stable approximately 7 mm focal acute /subacute hemorrhage in the left thalamus, laterally. -MRI Brain: There is no evidence of abnormal restricted diffusion in the brain to suggest acute or subacute infarction. On T2 gradient heme sensitive images, low signal lesion lateral to the left thalamus measuring 6.5 mm x 9.2 mm with blossoming affect, mild brain edema manifested by increased signal intensity on T2, FLAIR sequences. The lesion may represent cavernoma with recent hemorrhage. On T2 gradient echo heme sensitive images, lesion of low signal intensity measuring 6.7 mm x 4.9 mm is observed in the left mid darby. 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 No evidence of supratentorial white matter microangiopathic ischemic changes, gliosis. ASSESSMENT/PLAN: 68 y/o M w/ PMHx CAD, [place], PVD, ESRD on HD (MWF), HTN, admitted for gangrene/ osteomyelitis of the left foot on 05/16, now presents with worsening pain and discoloration of the left 4th toe and blackening and pain of the 3rd toe 1. Gangrene of L 3rd and 4th toes with Osteomyelitis -S/P BKA POD#3 (07/04) -Vascular surgery consulted, appreciate rec's, Continue daily dressing changes with clean dry dressing -S/P revision tma (Left toes 2-4) and amputation 1st ray left foot (06/24); s/p L TMA sparing great toe (06/11/18) -Completed Zosyn course (06/11-06/26) -Continue Levaquin (06/27) -Pain control via Oxycodone, Morphine -Podiatry (Dr. Garcia) consulted: Amputation on 06/11. Revised TMA on 06/24. -CTA noted as above -ID (Dr. Reyez) consulted, appreciate rec's 2. HTN -BP continues to rise, likely pain related; Goal BP < 140/90 -Cont home dose nifedipine, hydralazine, lasix -Continue Lisinopril -Labetalol increased to 300mg BID -Continue Labetalol 20mg IVPUSH Q4H PRN 3. Intracranial hemorrage s/p Mechanical fall -Neurological exam unchanged, Currently at baseline mental status -Stroke Tele -R Hip XRay: No acute bony abnormalities are seen -L Knee XRay: No acute fracture is seen. -Head CT Without contrast (07/02 @ 03:15): Approximately 5.9 mm x 3.6 mm x 4.4 mm acute hemorrhage measuring approximately 59 HU along the lateral aspect of the left thalamus, adjacent velasco radiata with mild peripharyngeal edema -Head CT Without contrast (07/02 @ 08:32): Stable approximately 7 mm focal acute /subacute hemorrhage in the left thalamus, laterally. -MRI Brain: There is no evidence of abnormal estricted diffusion in the brain to suggest acute or subacute infarction. The lesion may represent cavernoma with recent hemorrhage. 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 -Neurology (Dr. Claire) consulted, Appreciate rec's, Check B12, TSH, Control SBP, Can start AC once BP is better controlled -Neurosurgery (Dr. Espinoza) was contacted by the overnight team -ASA/Plavix held 4. C. Diff Antigen Positive -2 Bloody BMs yesterday -Currently no complaints of Diarrhea or Abdominal pain -Continue PO Vanco (Started on 07/03) 5. Anemia -S/P 5 units pRBC's (2 on 07/01, 2 on 06/25, 1 on 06/26), Appropriate H&H response -Likely blood loss anemia due to surgery -will continue to monitor, possibly giving 1 unit pRBCs during dialysis 6. ESRD on HD (MWF) -Nephro (Dr. Flaherty) consulted -Vascular evaluated fistula -Cont home Lasix, Sevelamer -Pt requesting blood draws with dialysis 7. CAD/PVD -ASA/Plavix held 8. FEN -PO Fluids -Continue to monitor lytes -Diabetic/Renal diet 9. PPx -no heparin at this time per vascular Dispo: Will need PT eval prior to D/c Visit type - Emergency Visit Emergency Visit: Yes ED Registration Date: 06/05/18 Care time: The patient presented to the Emergency Department on the above date and was hospitalized for further evaluation of their emergent condition. - New Patient This patient is new to me today: No - Critical Care Critical Care patient: No - Discharge Referral Referred to [facility] No
[2018-07-07] MEDS: SENNOSIDES 8.6MG TABLET (FP) PO SCH (21:27)
[2018-07-07] MEDS: ATORVASTATIN CA 80 MG TABLET (FP) PO SCH (21:27)
[2018-07-08] MEDS: DOCUSATE SODIUM 100 MG CAPSULE (FP) PO SCH ×3 (05:30→21:46)
[2018-07-08] MEDS: hydrALAZINE HCL 50 MG TABLET (FP) PO SCH ×3 (05:30→22:03)
[2018-07-08] MEDS: VANCOMYCIN 250 MG/5 ML ORAL SOLUTION PO SCH ×4 (05:32→23:06)
[2018-07-08] MEDS: INSULIN SLIDING SCALE (NOVOLOG) 1 VIAL SQ SCH ×3 (06:19→17:21)
--- NOTE | 2018-07-08 08:44 | PN ---
Teaching Attending Note Name of Resident: Linda Agrawal ATTENDING PHYSICIAN STATEMENT I saw and evaluated the patient. I reviewed the resident's note and discussed the case with the resident. I agree with the resident's findings and plan as documented with exceptions below. SUBJECTIVE: Patient seen and examined. awake,appropriate, pain left leg stump well controlled. OBJECTIVE: Vital Signs Period Temp Pulse Resp BP Sys/Cole Pulse Ox Last 24 Hr 98.2 F-98.9 F 56-64 18-20 130-188/44-74 96-97 Intake & Output 07/05/18 07/06/18 07/07/18 07/08/18 23:59 23:59 23:59 23:59 Intake Total 740 240 170 250 Output Total 0 Balance 740 240 170 250 General: sitting in bed awake, in no acute distress Chest:decreased effort, improved basilar rales Abdomen: soft, NT, ND Extremities: left BKA stump with sutures, no active discharge, erythema noted Home Medications Medication Instructions Recorded Sevelamer HCl [Renagel] 800 mg PO TIDCM 05/16/18 Aspirin Coated [Ecotrin -] 81 mg PO DAILY #30 tablet.ec 05/27/18 Atorvastatin Ca [Lipitor] 20 mg PO HS #30 tablet 05/27/18 Calcitriol [Calcitriol -] 0.25 mcg PO DAILY #30 capsule 05/27/18 Clopidogrel Bisulfate [Plavix -] 75 mg PO DAILY #30 tablet 05/27/18 Furosemide [Lasix -] 40 mg PO DAILY #30 tablet 05/27/18 Hydralazine HCl 100 mg PO TID #90 tablet 05/27/18 Nifedipine ER [Procardia XL -] 60 mg PO BID #60 tab.er.24 05/27/18 Acetaminophen [Tylenol] 650 mg PO QID PRN 06/05/18 Active Medications Acetaminophen (Tylenol -) 650 mg PO Q6H PRN PRN Reason: PAIN 1-3 Acetaminophen (Tylenol -) 325 mg PO Q4H PRN PRN Reason: PAIN LEVEL 4 - 6 Last Admin: 07/06/18 00:43 Dose: 325 mg Atorvastatin Calcium (Lipitor -) 80 mg PO HS [facility] Last Admin: 07/07/18 21:27 Dose: 80 mg Calcitriol (Rocaltrol -) 0.25 mcg PO DAILY [facility] Last Admin: 07/07/18 09:28 Dose: 0.25 mcg Docusate Sodium (Colace -) 100 mg PO TID [facility] Last Admin: 07/08/18 05:30 Dose: 100 mg Ferrous Sulfate (Feosol -) 325 mg PO BID [facility] Last Admin: 07/07/18 21:26 Dose: 325 mg Furosemide (Lasix -) 40 mg PO DAILY [facility] Last Admin: 07/07/18 15:31 Dose: 40 mg Hydralazine HCl (Apresoline -) 100 mg PO TID [facility] Last Admin: 07/08/18 05:30 Dose: 100 mg Insulin Aspart (Novolog Vial Sliding Scale -) 1 vial SQ TIDAC [facility]; Protocol Last Admin: 07/08/18 06:19 Dose: Not Given Labetalol HCl (Normodyne Injection -) 20 mg IVPUSH Q4H PRN PRN Reason: HYPERTENSION Last Admin: 07/06/18 16:47 Dose: 20 mg Labetalol HCl (Normodyne -) 300 mg PO BID [facility] Last Admin: 07/07/18 21:27 Dose: 300 mg Lisinopril (Prinivil) 40 mg PO DAILY [facility] Last Admin: 07/07/18 17:00 Dose: 40 mg Morphine Sulfate (Morphine Sulfate) 4 mg IVPUSH Q4H PRN PRN Reason: breakthrough pain Last Admin: 07/06/18 20:33 Dose: 4 mg Nifedipine (Procardia Xl -) 60 mg PO BID [facility] Last Admin: 07/07/18 21:27 Dose: 60 mg Oxycodone HCl (Roxicodone -) 10 mg PO Q4H PRN PRN Reason: PAIN LEVEL 6-10 Last Admin: 07/07/18 15:25 Dose: 10 mg Oxycodone HCl (Roxicodone -) 5 mg PO Q4H PRN PRN Reason: PAIN LEVEL 7 - 10 Last Admin: 07/07/18 00:45 Dose: 5 mg Senna (Senna -) 1 tab PO BID [facility] Last Admin: 07/07/18 21:27 Dose: 1 tab Sevelamer Carbonate (Renvela -) 800 mg PO TIDCM [facility] Last Admin: 07/07/18 17:00 Dose: 800 mg Vancomycin HCl (Vancomycin Oral Solution) 125 mg PO Q6HPO [facility] Last Admin: 07/08/18 05:32 Dose: 125 mg Laboratory Results - last 24 hr 10/22/18 10/22/18 10/22/18 06:00 11:27 11:37 WBC 12.2 H RBC 2.88 L Hgb 8.2 L Hct 25.6 L MCV 89.0 MCH 28.6 MCHC 32.2 RDW 18.4 H Plt Count 213 MPV 9.1 Absolute Neuts (auto) 10.1 H Neutrophils % 82.9 H Lymphocytes % 8.6 Monocytes % 7.5 Eosinophils % 0.5 Basophils % 0.5 Nucleated RBC % 0 Sodium 139 Potassium 4.2 Chloride 96 L Carbon Dioxide 30 Anion Gap 13 BUN 35 H Creatinine 5.9 H Creat Clearance w eGFR 9.53 POC Glucometer 119 Random Glucose 91 Calcium 9.3 Magnesium 2.2 Total Bilirubin 0.8 AST 94 H ALT 10 L Alkaline Phosphatase 355 H Total Protein 7.0 Albumin 1.9 L 07/07/18 07/07/18 07/08/18 16:25 21:30 05:17 WBC RBC Hgb Hct MCV MCH MCHC RDW Plt Count MPV Absolute Neuts (auto) Neutrophils % Lymphocytes % Monocytes % Eosinophils % Basophils % Nucleated RBC % Sodium Potassium Chloride Carbon Dioxide Anion Gap BUN Creatinine Creat Clearance w eGFR POC Glucometer 165 173 134 Random Glucose Calcium Magnesium Total Bilirubin AST ALT Alkaline Phosphatase Total Protein Albumin ASSESSMENT AND PLAN: 68 y/o man with h/o CAD, recent RI, PVD, ESRD on HD, HTN, HLP, Hep B , DM, and recent admission for L 4th toe gangrene and OM, s/p angiogram, atherectomy and angioplasty, who presented with increased pain in foot and change in L 3rd toe color. 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 -Acute C defficile diarrhea (Ag positive, toxin neg but patient with diarrhea) -ESRD on HD -HTN Plan: Doing well post op. Intermittent hypertensive episodes, likely pain related. Oxycodone prn for pain. Advised Nursing to not hold HTN meds before HD. Continue labetaolol/ nifedipine/hydralazine/lasix/lisinopril. Labetalol IV Prn for SBP >170 h.h stable. Vascular surgery input for wound care. MRI brain noted. Neurology input appreciated. Discussed with neurology, ok to resume Heparin for DVTPPX once BP better controlled. Discussed with Dr. Telles, plan to hold ASA/plavix on d,c, will follow up outpatient with his stable hand Discussed with Dr. Reyez, Abx d/laurie 07/07. Follow up surgical path. Diarrhea resolved. Vancomycin PO day 01/23 Renal input appreciated, HD per renal. Diabetic/renal diet. DVTPPX with SCDs Dispo plan for home d/c in 24 hours with outpatient services/HD and wound care. Encourage incentive spirometry. RA oxygenation 91-92%, that improved to 95% with better effort. Plan discussed with patient, all questions answered.
[2018-07-08] MEDS ORDERED: PT OWN MED DRAWER 7, Y5N ONE (09:11)
[2018-07-08] MEDS: LISINOPRIL 20 MG TABLET (FP) PO SCH (09:16)
[2018-07-08] MEDS: FUROSEMIDE 40 MG TABLET (FP) PO SCH (09:16)
[2018-07-08] MEDS: SENNOSIDES 8.6MG TABLET (FP) PO SCH ×2 (09:16→22:20)
[2018-07-08] MEDS: SEVELAMER CARBONATE 800 MG TAB (FP) PO SCH ×3 (09:17→17:22)
[2018-07-08] MEDS: FERROUS SO4 325 MG TABLET (FP) PO SCH ×2 (09:17→22:03)
[2018-07-08] MEDS: CALCITRIOL 0.25 MCG CAPSULE (FP) PO SCH (09:17)
[2018-07-08] MEDS: LABETALOL HCL 100 MG TABLET (FP) PO SCH ×2 (09:18→22:02)
[2018-07-08] MEDS: NIFEdipine E.R 60 MG TABLET (UD) PO SCH ×2 (09:19→22:03)
--- NOTE | 2018-07-08 12:42 | PN ---
Progress Note, Physician Chief Complaint: Pt alert and oriented. He has less left leg pain, but still gets it intermittently at surgical site if the stump is moved. History of Present Illness: This is a 68 year-old man (b. [place]), with HTN, NIDDM, ESRD on HD (M,W,F), CAD (s/p "infarct" about one year ago--treated at [facility]; never had coronary angiogram), diastolic CHF, and peripheral arterial disease/known left 4th toe osteomyelitis and gangrene, [facility], who presents with worsening, "stabbing", intermittent pain since last night. He notes that his left 4th toe is darker and his 3rd toe is black, which is completely new according to both him and his . He denies fevers/chills or any other symptoms. Vital signs on arrival are unremarkable. - Current Medication List Current Medications: Active Medications Acetaminophen (Tylenol -) 650 mg PO Q6H PRN PRN Reason: PAIN 1-3 Acetaminophen (Tylenol -) 325 mg PO Q4H PRN PRN Reason: PAIN LEVEL 4 - 6 Last Admin: 07/06/18 00:43 Dose: 325 mg Atorvastatin Calcium (Lipitor -) 80 mg PO HS [facility] Last Admin: 07/07/18 21:27 Dose: 80 mg Calcitriol (Rocaltrol -) 0.25 mcg PO DAILY [facility] Last Admin: 07/08/18 09:17 Dose: 0.25 mcg Docusate Sodium (Colace -) 100 mg PO TID [facility] Last Admin: 07/08/18 05:30 Dose: 100 mg Ferrous Sulfate (Feosol -) 325 mg PO BID [facility] Last Admin: 07/08/18 09:17 Dose: 325 mg Furosemide (Lasix -) 40 mg PO DAILY [facility] Last Admin: 07/08/18 09:16 Dose: 40 mg Hydralazine HCl (Apresoline -) 100 mg PO TID [facility] Last Admin: 07/08/18 05:30 Dose: 100 mg Insulin Aspart (Novolog Vial Sliding Scale -) 1 vial SQ TIDAC [facility]; Protocol Last Admin: 07/08/18 06:19 Dose: Not Given Labetalol HCl (Normodyne Injection -) 20 mg IVPUSH Q4H PRN PRN Reason: HYPERTENSION Last Admin: 07/06/18 16:47 Dose: 20 mg Labetalol HCl (Normodyne -) 300 mg PO BID [facility] Last Admin: 07/08/18 09:18 Dose: 300 mg Lisinopril (Prinivil) 40 mg PO DAILY [facility] Last Admin: 07/08/18 09:16 Dose: 40 mg Morphine Sulfate (Morphine Sulfate) 4 mg IVPUSH Q4H PRN PRN Reason: breakthrough pain Last Admin: 07/06/18 20:33 Dose: 4 mg Nifedipine (Procardia Xl -) 60 mg PO BID [facility] Last Admin: 07/08/18 09:19 Dose: 60 mg Oxycodone HCl (Roxicodone -) 10 mg PO Q4H PRN PRN Reason: PAIN LEVEL 6-10 Last Admin: 07/07/18 15:25 Dose: 10 mg Oxycodone HCl (Roxicodone -) 5 mg PO Q4H PRN PRN Reason: PAIN LEVEL 7 - 10 Last Admin: 07/07/18 00:45 Dose: 5 mg Senna (Senna -) 1 tab PO BID [facility] Last Admin: 07/08/18 09:16 Dose: 1 tab Sevelamer Carbonate (Renvela -) 800 mg PO TIDCM [facility] Last Admin: 07/08/18 09:17 Dose: 800 mg Vancomycin HCl (Vancomycin Oral Solution) 125 mg PO Q6HPO [facility] Last Admin: 07/08/18 05:32 Dose: 125 mg - Objective Vital Signs: Vital Signs Temperature 98.4 F 07/08/18 09:27 Pulse Rate 77 07/08/18 09:27 Respiratory Rate 20 07/08/18 09:27 Blood Pressure 137/72 07/08/18 09:27 O2 Sat by Pulse Oximetry (%) 96 07/07/18 21:00 Constitutional: Yes: Calm Eyes: Yes: WNL HENT: Yes: WNL Neck: Yes: WNL Cardiovascular: Yes: S1, S2 Respiratory: Yes: Regular Gastrointestinal: Yes: Soft ...Rectal Exam: Yes: Deferred Genitourinary: No: Anuria Musculoskeletal: Yes: Muscle Pain, Muscle Weakness Extremities: Yes: Cool Edema: No Peripheral Pulses WNL: No Integumentary: Yes: Other Wound/Incision: Yes: Dressing Dry and Intact (left BKA stump) Neurological: Yes: Alert, Oriented, Weakness Psychiatric: Yes: WNL Labs: CBC, BMP 10/22/18 06:00 07/07/18 11:37 INR, PTT INR 1.18 (0.83-1.09) H 07/04/18 05:30 Problem List - Problems (1) ESRD (end stage renal disease) Assessment/Plan: on hemodialysis 3x/week; next session is 07/09/2018. Code(s): N18.6 - END STAGE RENAL DISEASE (2) Anemia Code(s): D64.9 - ANEMIA, UNSPECIFIED Qualifiers: Vitamin B12 deficiency anemia type: other B12 deficiency (3) PAD (peripheral artery disease) Assessment/Plan: S/p left BKA. Code(s): I73.9 - PERIPHERAL VASCULAR DISEASE, UNSPECIFIED (4) AV fistula Code(s): I77.0 - ARTERIOVENOUS FISTULA, ACQUIRED (5) Diabetes Code(s): E11.9 - TYPE 2 DIABETES MELLITUS WITHOUT COMPLICATIONS Qualifiers: Diabetes mellitus type: type 2 Diabetes mellitus correction insulin use: without correction use Diabetes mellitus complication detail: with chronic kidney disease Chronic kidney disease stage: stage 5, not on chronic dialysis (6) Diastolic CHF Code(s): I50.30 - UNSPECIFIED DIASTOLIC (CONGESTIVE) HEART FAILURE (7) [place] cardiac risk >20% in next 10 years Assessment/Plan: The importance of aggressive risk-factor control was discussed in detail with pt and his daughter. Strong family hx DM; pt himself has had DM for many years. Pt is a candidate for cardiac rehabilitation (SD in the past year; mild ischemia on recent stress MIBI). Keep LDL cholesterol well below 70 mg/dL. Pt with bleeding hx and anemia. CLopidogrel and ASA held presently (PCI reportedly > 1 year ago). He will f/u as outpt with his private PMD and acquisition professional. Code(s): Z91.89 - OTH PERSONAL RISK FACTORS, NOT ELSEWHERE CLASSIFIED (8) Hypertension Assessment/Plan: On hydralaziine, nifedipine, lisinopril, and furosemide. F/u BP serially. (now better-controlled). Code(s): I10 - ESSENTIAL (PRIMARY) HYPERTENSION Qualifiers:
[2018-07-08] MEDS ORDERED: SODIUM CHLORIDE 250 ML IV PRN (13:30)
--- NOTE | 2018-07-08 13:30 | PN ---
Progress Note, Physician History of Present Illness: Pt seen and examined at bedside. He is awake and appears comfortable. - Current Medication List Current Medications: Active Medications Acetaminophen (Tylenol -) 650 mg PO Q6H PRN PRN Reason: PAIN 1-3 Acetaminophen (Tylenol -) 325 mg PO Q4H PRN PRN Reason: PAIN LEVEL 4 - 6 Last Admin: 07/06/18 00:43 Dose: 325 mg Atorvastatin Calcium (Lipitor -) 80 mg PO HS [facility] Last Admin: 07/07/18 21:27 Dose: 80 mg Calcitriol (Rocaltrol -) 0.25 mcg PO DAILY [facility] Last Admin: 07/08/18 09:17 Dose: 0.25 mcg Docusate Sodium (Colace -) 100 mg PO TID [facility] Last Admin: 07/08/18 05:30 Dose: 100 mg Ferrous Sulfate (Feosol -) 325 mg PO BID [facility] Last Admin: 07/08/18 09:17 Dose: 325 mg Furosemide (Lasix -) 40 mg PO DAILY [facility] Last Admin: 07/08/18 09:16 Dose: 40 mg Hydralazine HCl (Apresoline -) 100 mg PO TID [facility] Last Admin: 07/08/18 05:30 Dose: 100 mg Insulin Aspart (Novolog Vial Sliding Scale -) 1 vial SQ TIDAC [facility]; Protocol Last Admin: 07/08/18 06:19 Dose: Not Given Labetalol HCl (Normodyne Injection -) 20 mg IVPUSH Q4H PRN PRN Reason: HYPERTENSION Last Admin: 07/06/18 16:47 Dose: 20 mg Labetalol HCl (Normodyne -) 300 mg PO BID [facility] Last Admin: 07/08/18 09:18 Dose: 300 mg Lisinopril (Prinivil) 40 mg PO DAILY [facility] Last Admin: 07/08/18 09:16 Dose: 40 mg Morphine Sulfate (Morphine Sulfate) 4 mg IVPUSH Q4H PRN PRN Reason: breakthrough pain Last Admin: 07/06/18 20:33 Dose: 4 mg Nifedipine (Procardia Xl -) 60 mg PO BID [facility] Last Admin: 07/08/18 09:19 Dose: 60 mg Oxycodone HCl (Roxicodone -) 10 mg PO Q4H PRN PRN Reason: PAIN LEVEL 6-10 Last Admin: 07/07/18 15:25 Dose: 10 mg Oxycodone HCl (Roxicodone -) 5 mg PO Q4H PRN PRN Reason: PAIN LEVEL 7 - 10 Last Admin: 07/07/18 00:45 Dose: 5 mg Senna (Senna -) 1 tab PO BID [facility] Last Admin: 07/08/18 09:16 Dose: 1 tab Sevelamer Carbonate (Renvela -) 800 mg PO TIDCM [facility] Last Admin: 07/08/18 12:45 Dose: 800 mg Vancomycin HCl (Vancomycin Oral Solution) 125 mg PO Q6HPO [facility] Last Admin: 07/08/18 12:44 Dose: 125 mg - Objective Vital Signs: Vital Signs Temperature 98.4 F 07/08/18 09:27 Pulse Rate 77 07/08/18 09:27 Respiratory Rate 20 07/08/18 09:27 Blood Pressure 137/72 07/08/18 09:27 O2 Sat by Pulse Oximetry (%) 96 07/07/18 21:00 Constitutional: Yes: Calm Eyes: Yes: Conjunctiva Clear HENT: Yes: Atraumatic Neck: Yes: Supple Cardiovascular: Yes: S1, S2 Respiratory: Yes: CTA Bilaterally Gastrointestinal: Yes: Normal Bowel Sounds, Soft Genitourinary: Yes: WNL Extremities: Yes: Other (s/p bka) Edema: No Neurological: Yes: Oriented Psychiatric: Yes: Oriented Labs: CBC, BMP 07/07/18 06:00 07/07/18 11:37 INR, PTT INR 1.18 (0.83-1.09) H 07/04/18 05:30 Problem List - Problems (1) ESRD (end stage renal disease) Code(s): N18.6 - END STAGE RENAL DISEASE (2) Gangrene Code(s): I96 - GANGRENE, NOT ELSEWHERE CLASSIFIED (3) PAD (peripheral artery disease) Code(s): I73.9 - PERIPHERAL VASCULAR DISEASE, UNSPECIFIED Assessment/Plan Current Medications Generic Name Dose Route Start Last Admin Trade Name Freq PRN Reason Stop Dose Admin Acetaminophen 650 mg 07/04/18 16:55 Tylenol - PO Q6H PRN PAIN 1-3 Acetaminophen 325 mg 07/04/18 16:55 07/06/18 00:43 Tylenol - PO 325 mg Q4H PRN Administration PAIN LEVEL 4 - 6 Atorvastatin Calcium 80 mg 07/04/18 22:00 07/07/18 21:27 Lipitor - PO 80 mg HS [facility] Administration Calcitriol 0.25 mcg 07/05/18 10:00 07/08/18 09:17 Rocaltrol - PO 0.25 mcg DAILY [facility] Administration Docusate Sodium 100 mg 07/04/18 22:00 07/08/18 05:30 Colace - PO 100 mg TID [facility] Administration Ferrous Sulfate 325 mg 07/04/18 22:00 07/08/18 09:17 Feosol - PO 325 mg BID [facility] Administration Furosemide 40 mg 07/05/18 10:00 07/08/18 09:16 Lasix - PO 40 mg DAILY [facility] Administration Hydralazine HCl 100 mg 07/04/18 22:00 07/08/18 05:30 Apresoline - PO 100 mg TID [facility] Administration Insulin Aspart 1 vial 07/05/18 07:00 07/08/18 06:19 Novolog Vial Sliding Scale - SQ Not Given TIDAC [facility] Protocol Labetalol HCl 20 mg 07/04/18 16:55 07/06/18 16:47 Normodyne Injection - IVPUSH 20 mg Q4H PRN Administration HYPERTENSION Labetalol HCl 300 mg 07/06/18 16:15 07/08/18 09:18 Normodyne - PO 300 mg BID [facility] Administration Lisinopril 40 mg 07/05/18 10:00 07/08/18 09:16 Prinivil PO 40 mg DAILY [facility] Administration Morphine Sulfate 4 mg 07/04/18 16:16 07/06/18 20:33 Morphine Sulfate IVPUSH 4 mg Q4H PRN Administration breakthrough pain Nifedipine 60 mg 07/04/18 22:00 07/08/18 09:19 Procardia Xl - PO 60 mg BID [facility] Administration Oxycodone HCl 10 mg 07/04/18 16:17 07/07/18 15:25 Roxicodone - PO 10 mg Q4H PRN Administration PAIN LEVEL 6-10 Oxycodone HCl 5 mg 07/04/18 16:55 07/07/18 00:45 Roxicodone - PO 5 mg Q4H PRN Administration PAIN LEVEL 7 - 10 Senna 1 tab 07/07/18 22:00 07/08/18 09:16 Senna - PO 1 tab BID [facility] Administration Sevelamer Carbonate 800 mg 07/04/18 17:30 07/08/18 12:45 Renvela - PO 800 mg TIDCM [facility] Administration Vancomycin HCl 125 mg 07/04/18 18:00 07/08/18 12:44 Vancomycin Oral Solution PO 125 mg Q6HPO [facility] Administration Impression 1. ESRD on HD 2. anemia 3. DM 4. HTN 5. toe infection/gangrene 6. PVD 7. 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 type 4 cavernous malformation Plan - monitor BP - HD in am - please do not hold bp meds on HD days - cont wound care - PO iron for now - avf 3:00 400 abf - epogen for anemia - renal diet
--- NOTE | 2018-07-08 16:28 | PATH ---
Surgical Pathology Report Patient Name: KARI VILLALOBOS [facility]. Rec. #: [id number] /Age/Gender: 1950 (Age: 68) / M Account: [id number] Location: 4 PEDS/ADOL Taken: 07/04/2018 Received: 07/07/2018 Reported: 07/08/2018 Physicians: Kel Paiz Specimen(s) Received LEFT BELOW THE KNEE AMPUTATION Clinical History Left foot gangrene Final Diagnosis LEG, LEFT, BELOW THE KNEE AMPUTATION: LOWER LEG WITH GANGRENOUS NECROSIS INVOLVING UNDERLYING BONE. NO ACUTE OSTEOMYELITIS IDENTIFIED. MODERATE TO SEVERE CALCIFIC ATHEROSCLEROSIS. BONE AND SOFT TISSUE MARGINS ARE VIABLE. Electronically Signed Gayle Hartley M.D. Gross Description Received fresh labeled "left below the knee amputation," is a 29 cm in length left below the knee amputation. The foot measures 14 cm in length. There is a 4 cm in length exposed portion of tibia and an 11 cm in length exposed portion of fibula at the proximal aspect of the specimen. All 5 digits have been previously amputated and there is an 8.0 x 5.0 cm black, gangrenous lesion with black suture material at the previous amputation site. The lesion involves the underlying bone. Sectioning of the vasculature reveals focal, segmental, moderate to severe atherosclerosis. Chemistry Associate sections are submitted in 8 cassettes as follows: 1-lesion; 2-lesion with underlying bone, following decalcification; 3-additional bone underlying lesion, following decalcification; 4-bone marrow from margin, following decalcification; 5-skin and soft tissue margin; 6-anterior tibial artery; 7-posterior tibial artery; 8-dorsalis pedis. /07/07/[address] [facility]07/07/2018
[2018-07-08] MEDS: oxyCODONE HCL 5 MG TABLET PO PRN (18:05)
--- NOTE | 2018-07-08 18:32 | PN ---
Physical Exam: SUBJECTIVE: Patient seen and examined this morning. No new complaints. Leg dressing changed. Continues to have pain at staple site. Denies any fevers, chills, chest pain, SOB, nausea, vomiting. OBJECTIVE: Vital Signs Period Temp Pulse Resp BP Sys/Cole Pulse Ox Last 24 Hr 98.3 F-99.4 F 60-77 18-20 137-155/56-72 96 GENERAL: A&Ox3, NAD, lying in bed comfortably HEAD: NCAT EYES: L eye non-reactive s/p cataract surgery. R eye wnl. EOMI. ENT: Oropharynx clear without exudates, MMM NECK: supple, No JVD LUNGS: Breath sounds equal, clear to auscultation bilaterally, no wheezes HEART: Regular rate and rhythm, S1, S2, Systolic murmur at the LLSB ABDOMEN: Soft, nontender, nondistended, normoactive bowel sounds, no guarding EXTREMITIES: 2+ pulses, no RLE edema. Dried, clean and intact LLE external dressing over stump. Wound closed and intact with fernando in place, No active drainage or discharge, no surrounding erythema. Tenderness to palpation at staple site described as sharp, 10/10 without radiation. No tenderness at rest. Gross lower extremity sensation intact b/l NEUROLOGICAL: Cranial nerves II through XII grossly intact. Normal speech. Laboratory Results - last 24 hr 07/07/18 07/08/18 07/08/18 21:30 05:17 10:56 POC Glucometer 173 134 113 07/08/18 16:49 POC Glucometer 165 Microbiology 07/02/18 11:00 Stool Clostridium difficile Antigen (LEONOR) - Final 07/02/18 11:00 Stool Clostridium difficile Toxin Assay - Final 06/27/18 19:30 Blood - Peripheral Venous Blood Culture - Final NO GROWTH AFTER 5 DAYS INCUBATION 06/27/18 17:30 Blood - Peripheral Venous Blood Culture - Final NO GROWTH AFTER 5 DAYS INCUBATION 06/24/18 10:44 Foot - Lt Transmetatarsal Amp Site Gram Stain - Final 06/24/18 10:44 Foot - Lt Transmetatarsal Amp Site Wound Culture - Final Aeromonas Hydrophilia Group 06/24/18 10:56 Foot - Lt Transmetatarsal Amp Site Gram Stain - Final 06/24/18 10:56 Foot - Lt Transmetatarsal Amp Site Wound Culture - Final Stenotrophomon.(X.)Maltophilia 06/05/18 11:10 Blood - Peripheral Venous Blood Culture - Final NO GROWTH AFTER 5 DAYS INCUBATION 06/05/18 11:10 Blood - Peripheral Venous Blood Culture - Final NO GROWTH AFTER 5 DAYS INCUBATION Active Medications Acetaminophen (Tylenol -) 650 mg PO Q6H PRN PRN Reason: PAIN 1-3 Acetaminophen (Tylenol -) 325 mg PO Q4H PRN PRN Reason: PAIN LEVEL 4 - 6 Last Admin: 07/06/18 00:43 Dose: 325 mg Atorvastatin Calcium (Lipitor -) 80 mg PO HS [facility] Last Admin: 07/07/18 21:27 Dose: 80 mg Calcitriol (Rocaltrol -) 0.25 mcg PO DAILY [facility] Last Admin: 07/08/18 09:17 Dose: 0.25 mcg Docusate Sodium (Colace -) 100 mg PO TID [facility] Last Admin: 07/08/18 13:49 Dose: Not Given Epoetin Thomas (Epogen -) 12,000 unit IVPUSH ONCE ONE Stop: 07/09/18 13:31 Ferrous Sulfate (Feosol -) 325 mg PO BID [facility] Last Admin: 07/08/18 09:17 Dose: 325 mg Furosemide (Lasix -) 40 mg PO DAILY [facility] Last Admin: 07/08/18 09:16 Dose: 40 mg Hydralazine HCl (Apresoline -) 100 mg PO TID [facility] Last Admin: 07/08/18 13:49 Dose: 100 mg Sodium Chloride (Normal Saline -) 250 mls @ 3,000 mls/hr IV PRN PRN PRN Reason: Hypotension during Dialysis Stop: 07/09/18 13:30 Insulin Aspart (Novolog Vial Sliding Scale -) 1 vial SQ TIDAC [facility]; Protocol Last Admin: 07/08/18 17:21 Dose: 2 unit Labetalol HCl (Normodyne Injection -) 20 mg IVPUSH Q4H PRN PRN Reason: HYPERTENSION Last Admin: 07/06/18 16:47 Dose: 20 mg Labetalol HCl (Normodyne -) 300 mg PO BID [facility] Last Admin: 07/08/18 09:18 Dose: 300 mg Lisinopril (Prinivil) 40 mg PO DAILY [facility] Last Admin: 07/08/18 09:16 Dose: 40 mg Morphine Sulfate (Morphine Sulfate) 4 mg IVPUSH Q4H PRN PRN Reason: breakthrough pain Last Admin: 07/06/18 20:33 Dose: 4 mg Nifedipine (Procardia Xl -) 60 mg PO BID [facility] Last Admin: 07/08/18 09:19 Dose: 60 mg Oxycodone HCl (Roxicodone -) 10 mg PO Q4H PRN PRN Reason: PAIN LEVEL 6-10 Last Admin: 07/08/18 18:05 Dose: 10 mg Oxycodone HCl (Roxicodone -) 5 mg PO Q4H PRN PRN Reason: PAIN LEVEL 7 - 10 Last Admin: 07/07/18 00:45 Dose: 5 mg Senna (Senna -) 1 tab PO BID [facility] Last Admin: 07/08/18 09:16 Dose: 1 tab Sevelamer Carbonate (Renvela -) 800 mg PO TIDCM [facility] Last Admin: 07/08/18 17:22 Dose: 800 mg Vancomycin HCl (Vancomycin Oral Solution) 125 mg PO Q6HPO [facility] Last Admin: 07/08/18 17:22 Dose: 125 mg IMAGING: -EKG: NORMAL SINUS RHYTHM, NONSPECIFIC T WAVE ABNORMALITY -EKG done (06/10) revealed new T-wave inversions in lateral leads, -Left Foot XRay (06/05): No fracture or osteomyelitis. -Left Foot XRay (06/12):Status post transmetatarsal amputation left second through fifth digits. Alignment maintained. -Left Foot XRay (06/26): Imaging reveals loss of bone density, heavy vascular calcifications and amputation of the toes with the metatarsal bases remain. There is some soft tissue swelling with bandage artifact. -CT ANGIOGRAM OF THE ABDOMEN AND PELVIS WITH BILATERAL LOWER EXTREMITY RUNOFFS: Predominant distal arterial disease suggestive of diabetic and/or nephrogenic vasculopathy. Predominant disease in the distal left popliteal and infrapopliteal arteries demonstrating interval improvement in flow and mild improvement in the degree of stenosis described on the prior exam, as described above. Essential flow to the foot is provided by the MIGUELITO. Peroneal artery is occluded and [employer] demonstrate short segmental occlusions with reconstitution of flow in the plantar artery which demonstrate robust flow. Flow is seen in the digital arteries. Predominant right infrapopliteal disease, as described above, grossly unchanged since the prior exam. Subcutaneous edema with mesenteric stranding possibly due to third spacing/anasarca. Under distended urinary bladder with suggestion of wall thickening. Correlate clinically for cystitis. -CXR: Since 05/14/2018 again noted is the large heart, sclerotic knob and prominent central markings. An acute process is not seen. -R Hip XRay: Within the limitation of examination, the visualized osseous structures appear intact, no acute bony abnormalities are seen. -L Knee XRay: No acute fracture is seen. No evidence of suprapatellar joint effusion. Vascular calcifications. -Head CT Without contrast (07/02 @ 03:15): Approximately 5.9 mm x 3.6 mm x 4.4 mm acute hemorrhage measuring approximately 59 HU along the lateral aspect of the left thalamus, adjacent velasco radiata with mild peripharyngeal edema, The location of the hemorrhage likely related to hypertension. Clinical correlation. No CT evidence of acute territorial ischemic changes. No evidence of subarachnoid hemorrhage. No evidence of acute subdural, epidural hematoma. No evidence of skull fracture -Head CT Without contrast (07/02 @ 08:32): Stable approximately 7 mm focal acute /subacute hemorrhage in the left thalamus, laterally. -MRI Brain: There is no evidence of abnormal restricted diffusion in the brain to suggest acute or subacute infarction. On T2 gradient heme sensitive images, low signal lesion lateral to the left thalamus measuring 6.5 mm x 9.2 mm with blossoming affect, mild brain edema manifested by increased signal intensity on T2, FLAIR sequences. The lesion may represent cavernoma with recent hemorrhage. On T2 gradient echo heme sensitive images, lesion of low signal intensity measuring 6.7 mm x 4.9 mm is observed in the left mid darby. 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 No evidence of supratentorial white matter microangiopathic ischemic changes, gliosis. ASSESSMENT/PLAN: 68 y/o M w/ PMHx CAD, [place], PVD, ESRD on HD (MWF), HTN, admitted for gangrene/ osteomyelitis of the left foot on 05/16, now presents with worsening pain and discoloration of the left 4th toe and blackening and pain of the 3rd toe 1. Gangrene of L 3rd and 4th toes with Osteomyelitis -S/P BKA POD#3 (07/04) -Vascular surgery consulted, appreciate rec's, Continue daily dressing changes with clean dry dressing -S/P revision tma (Left toes 2-4) and amputation 1st ray left foot (06/24); s/p L TMA sparing great toe (06/11/18) -Completed Zosyn course (06/11-06/26) -Completed Levaquin course (06/27-07/07) -Pain control via Oxycodone, Morphine -Podiatry (Dr. Garcia) consulted: Amputation on 06/11. Revised TMA on 06/24. -CTA noted as above -ID (Dr. Reyez) consulted, appreciate rec's -Surgical pathology pending -Continue incentive spirometer 2. HTN -BP continues to rise, likely pain related; Goal BP < 140/90 -Pain control via Oxycodone, Morphine -Cont home dose nifedipine, hydralazine, lasix -Continue Lisinopril -Labetalol increased to 300mg BID -Continue Labetalol 20mg IVPUSH Q4H PRN is SBP >170 3. Intracranial hemorrage s/p Mechanical fall -Neurological exam unchanged, Currently at baseline mental status -Stroke Tele -R Hip XRay: No acute bony abnormalities are seen -L Knee XRay: No acute fracture is seen. -Head CT Without contrast (07/02 @ 03:15): Approximately 5.9 mm x 3.6 mm x 4.4 mm acute hemorrhage measuring approximately 59 HU along the lateral aspect of the left thalamus, adjacent velasco radiata with mild peripharyngeal edema -Head CT Without contrast (07/02 @ 08:32): Stable approximately 7 mm focal acute /subacute hemorrhage in the left thalamus, laterally. -MRI Brain: There is no evidence of abnormal estricted diffusion in the brain to suggest acute or subacute infarction. The lesion may represent cavernoma with recent hemorrhage. 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 -Neurology (Dr. Claire) consulted, Appreciate rec's, Check B12, TSH, Control SBP, Can start AC once BP is better controlled -Neurosurgery (Dr. Espinoza) was contacted by the overnight team -ASA/Plavix held -Discussed with Dr. Veliz, Will hold ASA/Plavix on D/C and patient will follow up outpatient with cardio 4. C. Diff Antigen Positive -2 Bloody BMs yesterday -Currently no complaints of Diarrhea or Abdominal pain -Continue PO Vanco (Started on 07/03) 5. Anemia -S/P 5 units pRBC's (2 on 07/01, 2 on 06/25, 1 on 06/26), Appropriate H&H response -Likely blood loss anemia due to surgery -will continue to monitor, possibly giving 1 unit pRBCs during dialysis 6. ESRD on HD (MWF) -Nephro (Dr. Flaherty) consulted -Vascular evaluated fistula -Cont home Lasix, Sevelamer -Pt requesting blood draws with dialysis 7. CAD/PVD -ASA/Plavix held -Discussed with Dr. Veliz, Will hold ASA/Plavix on D/C and patient will follow up outpatient with cardio 8. FEN -PO Fluids -Continue to monitor lytes -Diabetic/Renal diet 9. PPx -no heparin at this time per vascular Dispo: Will need PT eval prior to D/C Visit type - Emergency Visit Emergency Visit: Yes ED Registration Date: 06/05/18 Care time: The patient presented to the Emergency Department on the above date and was hospitalized for further evaluation of their emergent condition. - New Patient This patient is new to me today: No - Critical Care Critical Care patient: No - Discharge Referral Referred to [facility] Med P.C.: No
[2018-07-08] MEDS: ATORVASTATIN CA 80 MG TABLET (FP) PO SCH (22:03)
[2018-07-09] MEDS: ACETAMINOPHEN 325 MG TABLET (FP) PO PRN ×2 (04:38→23:20)
[2018-07-09] MEDS: oxyCODONE HCL 5 MG TABLET PO PRN ×3 (04:38→23:20)
[2018-07-09] MEDS: hydrALAZINE HCL 50 MG TABLET (FP) PO SCH ×3 (05:08→23:20)
[2018-07-09] MEDS: VANCOMYCIN 250 MG/5 ML ORAL SOLUTION PO SCH ×4 (05:08→23:20)
[2018-07-09] MEDS: DOCUSATE SODIUM 100 MG CAPSULE (FP) PO SCH ×3 (05:48→21:11)
[2018-07-09] MEDS: INSULIN SLIDING SCALE (NOVOLOG) 1 VIAL SQ SCH ×3 (06:06→17:48)
--- NOTE | 2018-07-09 07:54 | PN ---
Teaching Attending Note Name of Resident: Linda Agrawal ATTENDING PHYSICIAN STATEMENT I saw and evaluated the patient. I reviewed the resident's note and discussed the case with the resident. I agree with the resident's findings and plan as documented with exceptions below. SUBJECTIVE: Patient seen and examined. OBJECTIVE: Vital Signs Period Temp Pulse Resp BP Sys/Cole Pulse Ox Last 24 Hr 97.7 F-99.4 F 58-77 18-20 137-149/49-72 95 Intake & Output 07/06/18 07/07/18 07/08/18 07/09/18 23:59 23:59 23:59 23:59 Intake Total 240 170 800 120 Balance 240 170 800 120 General: sitting in bed in no acute distress Chest: few basilar rales Abdomen: soft, NT, ND extremities: Left BMA stump clean, fernando in place, no surrounding erythema or edema Active Medications Acetaminophen (Tylenol -) 650 mg PO Q6H PRN PRN Reason: PAIN 1-3 Acetaminophen (Tylenol -) 325 mg PO Q4H PRN PRN Reason: PAIN LEVEL 4 - 6 Last Admin: 07/09/18 04:38 Dose: 325 mg Atorvastatin Calcium (Lipitor -) 80 mg PO HS [facility] Last Admin: 07/08/18 22:03 Dose: 80 mg Calcitriol (Rocaltrol -) 0.25 mcg PO DAILY [facility] Last Admin: 07/08/18 09:17 Dose: 0.25 mcg Docusate Sodium (Colace -) 100 mg PO TID [facility] Last Admin: 07/09/18 05:48 Dose: Not Given Epoetin Thomas (Epogen -) 12,000 unit IVPUSH ONCE ONE Stop: 07/09/18 13:31 Ferrous Sulfate (Feosol -) 325 mg PO BID [facility] Last Admin: 07/08/18 22:03 Dose: 325 mg Furosemide (Lasix -) 40 mg PO DAILY [facility] Last Admin: 07/08/18 09:16 Dose: 40 mg Hydralazine HCl (Apresoline -) 100 mg PO TID [facility] Last Admin: 07/09/18 05:08 Dose: 100 mg Sodium Chloride (Normal Saline -) 250 mls @ 3,000 mls/hr IV PRN PRN PRN Reason: Hypotension during Dialysis Stop: 07/09/18 13:30 Insulin Aspart (Novolog Vial Sliding Scale -) 1 vial SQ TIDAC [facility]; Protocol Last Admin: 07/09/18 06:06 Dose: Not Given Labetalol HCl (Normodyne Injection -) 20 mg IVPUSH Q4H PRN PRN Reason: HYPERTENSION Last Admin: 07/06/18 16:47 Dose: 20 mg Labetalol HCl (Normodyne -) 300 mg PO BID [facility] Last Admin: 07/08/18 22:02 Dose: 300 mg Lisinopril (Prinivil) 40 mg PO DAILY [facility] Last Admin: 07/08/18 09:16 Dose: 40 mg Morphine Sulfate (Morphine Sulfate) 4 mg IVPUSH Q4H PRN PRN Reason: breakthrough pain Last Admin: 07/06/18 20:33 Dose: 4 mg Nifedipine (Procardia Xl -) 60 mg PO BID [facility] Last Admin: 07/08/18 22:03 Dose: 60 mg Oxycodone HCl (Roxicodone -) 10 mg PO Q4H PRN PRN Reason: PAIN LEVEL 6-10 Last Admin: 07/08/18 18:05 Dose: 10 mg Oxycodone HCl (Roxicodone -) 5 mg PO Q4H PRN PRN Reason: PAIN LEVEL 7 - 10 Last Admin: 07/09/18 04:38 Dose: 5 mg Senna (Senna -) 1 tab PO BID [facility] Last Admin: 07/08/18 22:20 Dose: Not Given Sevelamer Carbonate (Renvela -) 800 mg PO TIDCM [facility] Last Admin: 07/08/18 17:22 Dose: 800 mg Vancomycin HCl (Vancomycin Oral Solution) 125 mg PO Q6HPO [facility] Last Admin: 07/09/18 05:08 Dose: 125 mg Laboratory Results - last 24 hr 07/08/18 07/08/18 07/09/18 10:56 16:49 05:11 POC Glucometer 113 165 141 ASSESSMENT AND PLAN: 68 y/o man with h/o CAD, recent [place], PVD, ESRD on HD, HTN, HLP, Hep B , DM, and recent admission for L 4th toe gangrene and OM, s/p angiogram, atherectomy and angioplasty, who presented with increased pain in foot and change in L 3rd toe color. 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 -Acute C defficile diarrhea (Ag positive, toxin neg but patient with diarrhea) -ESRD on HD -HTN Plan: Doing well post op. Intermittent hypertensive episodes, however intermittent angry with staff and refusing medications. Currently improved. Advised Nursing to not hold HTN meds before HD. Continue labetaolol/ nifedipine/hydralazine/lasix/lisinopril. Labetalol IV Prn for SBP >170 h.h stable. Vascular surgery input for wound care. MRI brain noted. Neurology input appreciated. Discussed with neurology, ok to resume Heparin for DVTPPX once BP better controlled. Discussed with Dr. 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 Reyez, Abx d/laurie 07/07. Follow up surgical path. Diarrhea resolved. Vancomycin PO day 02/23 Renal input appreciated, HD per renal. Diabetic/renal diet. DVTPPX with SCDs Wound dressing teaching with family. Staple removal outpatient with medical clinic/wound care center. Dispo plan for home d/c with outpatient services/HD and wound care. Encourage incentive spirometry. Plan discussed with patient and nursing, all questions answered.
[2018-07-09] MEDS: SEVELAMER CARBONATE 800 MG TAB (FP) PO SCH ×3 (08:41→17:48)
[2018-07-09 08:58] LABS: HEMATOCRIT 23.9 % (35.4-49); MCH 29.7 pg (25.7-33.7); MCHC 33.4 g/dl (32.0-35.9); MEAN CELL VOLUME 88.9 fl (80-96); MEAN PLT VOLUME 9.6 fl (7.5-11.1); PLATELET COUNT 207 K/MM3 (134-434); RBC 2.69 M/mm3 (4.00-5.60); RDW 18.3 % (11.9-15.9); WHITE BLOOD COUNT 10.7 K/mm3 (4.0-10.0)
[2018-07-09 09:32] LABS: ANION GAP 9 MMOL/L (8-16); BLOOD UREA NITROGEN 33 mg/dL (7-18); CALCIUM 9.2 mg/dL (8.5-10.1); CHLORIDE 97 mmol/L (98-107); CO2 30 mmol/L (21-32); CREATININE 5.5 mg/dL (0.55-1.3); GLUCOSE,RANDOM 109 mg/dL (74-106); SODIUM 136 mmol/L (136-145)
[2018-07-09] MEDS ORDERED: EPOETIN ALFA 10,000 UNIT, EPOETIN ALFA 2,000 UNIT IVPUSH ONE (10:00)
[2018-07-09] MEDS ORDERED: PT OWN MED DRAWER 7, Y5N ONE (10:39)
--- NOTE | 2018-07-09 11:10 | PN ---
Progress Note, Physician History of Present Illness: Pt seen and examined at bedside. He is awake and alert. He is tolerating HD. - Current Medication List Current Medications: Active Medications Acetaminophen (Tylenol -) 650 mg PO Q6H PRN PRN Reason: PAIN 1-3 Acetaminophen (Tylenol -) 325 mg PO Q4H PRN PRN Reason: PAIN LEVEL 4 - 6 Last Admin: 07/09/18 04:38 Dose: 325 mg Atorvastatin Calcium (Lipitor -) 80 mg PO [facility] Last Admin: 07/08/18 22:03 Dose: 80 mg Calcitriol (Rocaltrol -) 0.25 mcg PO DAILY [facility] Last Admin: 07/08/18 09:17 Dose: 0.25 mcg Docusate Sodium (Colace -) 100 mg PO TID [facility] Last Admin: 07/09/18 05:48 Dose: Not Given Ferrous Sulfate (Feosol -) 325 mg PO BID [facility] Last Admin: 07/08/18 22:03 Dose: 325 mg Furosemide (Lasix -) 40 mg PO DAILY [facility] Last Admin: 07/08/18 09:16 Dose: 40 mg Hydralazine HCl (Apresoline -) 100 mg PO TID [facility] Last Admin: 07/09/18 05:08 Dose: 100 mg Sodium Chloride (Normal Saline -) 250 mls @ 3,000 mls/hr IV PRN PRN PRN Reason: Hypotension during Dialysis Stop: 07/09/18 13:30 Insulin Aspart (Novolog Vial Sliding Scale -) 1 vial SQ TIDAC [facility]; Protocol Last Admin: 07/09/18 06:06 Dose: Not Given Labetalol HCl (Normodyne Injection -) 20 mg IVPUSH Q4H PRN PRN Reason: HYPERTENSION Last Admin: 07/06/18 16:47 Dose: 20 mg Labetalol HCl (Normodyne -) 300 mg PO BID [facility] Last Admin: 07/08/18 22:02 Dose: 300 mg Lisinopril (Prinivil) 40 mg PO DAILY [facility] Last Admin: 07/08/18 09:16 Dose: 40 mg Morphine Sulfate (Morphine Sulfate) 4 mg IVPUSH Q4H PRN PRN Reason: breakthrough pain Last Admin: 07/06/18 20:33 Dose: 4 mg Nifedipine (Procardia Xl -) 60 mg PO BID [facility] Last Admin: 07/08/18 22:03 Dose: 60 mg Oxycodone HCl (Roxicodone -) 10 mg PO Q4H PRN PRN Reason: PAIN LEVEL 6-10 Last Admin: 07/08/18 18:05 Dose: 10 mg Oxycodone HCl (Roxicodone -) 5 mg PO Q4H PRN PRN Reason: PAIN LEVEL 7 - 10 Last Admin: 07/09/18 04:38 Dose: 5 mg Senna (Senna -) 1 tab PO BID [facility] Last Admin: 07/08/18 22:20 Dose: Not Given Sevelamer Carbonate (Renvela -) 800 mg PO TIDCM [facility] Last Admin: 07/09/18 08:41 Dose: Not Given Vancomycin HCl (Vancomycin Oral Solution) 125 mg PO Q6HPO [facility] Last Admin: 07/09/18 05:08 Dose: 125 mg - Objective Vital Signs: Vital Signs Temperature 98.7 F 07/09/18 07:35 Pulse Rate 52 L 07/09/18 08:40 Respiratory Rate 18 07/09/18 08:40 Blood Pressure 157/71 07/09/18 08:40 O2 Sat by Pulse Oximetry (%) 95 07/08/18 21:00 Constitutional: Yes: Calm Eyes: Yes: Conjunctiva Clear HENT: Yes: Atraumatic Cardiovascular: Yes: S1, S2 Respiratory: Yes: CTA Bilaterally Gastrointestinal: Yes: Soft Genitourinary: Yes: WNL Musculoskeletal: Yes: Other (left bka) Edema: No Neurological: Yes: Oriented Psychiatric: Yes: Oriented Labs: CBC, BMP 07/09/18 07:40 07/09/18 07:40 INR, PTT INR 1.18 (0.83-1.09) H 07/04/18 05:30 Problem List - Problems (1) ESRD (end stage renal disease) Code(s): N18.6 - END STAGE RENAL DISEASE (2) Gangrene Code(s): I96 - GANGRENE, NOT ELSEWHERE CLASSIFIED (3) PAD (peripheral artery disease) Code(s): I73.9 - PERIPHERAL VASCULAR DISEASE, UNSPECIFIED Assessment/Plan Current Medications Generic Name Dose Route Start Last Admin Trade Name Freq PRN Reason Stop Dose Admin Acetaminophen 650 mg 07/04/18 16:55 Tylenol - PO Q6H PRN PAIN 1-3 Acetaminophen 325 mg 07/04/18 16:55 07/09/18 04:38 Tylenol - PO 325 mg Q4H PRN Administration PAIN LEVEL 4 - 6 Atorvastatin Calcium 80 mg 07/04/18 22:00 07/08/18 22:03 Lipitor - PO 80 mg HS [facility] Administration Calcitriol 0.25 mcg 07/05/18 10:00 07/08/18 09:17 Rocaltrol - PO 0.25 mcg DAILY [facility] Administration Docusate Sodium 100 mg 07/04/18 22:00 07/09/18 05:48 Colace - PO Not Given TID [facility] Ferrous Sulfate 325 mg 07/04/18 22:00 07/08/18 22:03 Feosol - PO 325 mg BID [facility] Administration Furosemide 40 mg 07/05/18 10:00 07/08/18 09:16 Lasix - PO 40 mg DAILY [facility] Administration Hydralazine HCl 100 mg 07/04/18 22:00 07/09/18 05:08 Apresoline - PO 100 mg TID [facility] Administration Sodium Chloride 250 mls @ 3,000 mls/hr 07/08/18 13:30 Normal Saline - IV 07/09/18 13:30 PRN PRN Hypotension during Dialysis Insulin Aspart 1 vial 07/05/18 07:00 07/09/18 06:06 Novolog Vial Sliding Scale - SQ Not Given TIDAC [facility] Protocol Labetalol HCl 20 mg 07/04/18 16:55 07/06/18 16:47 Normodyne Injection - IVPUSH 20 mg Q4H PRN Administration HYPERTENSION Labetalol HCl 300 mg 07/06/18 16:15 07/08/18 22:02 Normodyne - PO 300 mg BID [facility] Administration Lisinopril 40 mg 07/05/18 10:00 07/08/18 09:16 Prinivil PO 40 mg DAILY [facility] Administration Morphine Sulfate 4 mg 07/04/18 16:16 07/06/18 20:33 Morphine Sulfate IVPUSH 4 mg Q4H PRN Administration breakthrough pain Nifedipine 60 mg 07/04/18 22:00 07/08/18 22:03 Procardia Xl - PO 60 mg BID [facility] Administration Oxycodone HCl 10 mg 07/04/18 16:17 07/08/18 18:05 Roxicodone - PO 10 mg Q4H PRN Administration PAIN LEVEL 6-10 Oxycodone HCl 5 mg 07/04/18 16:55 07/09/18 04:38 Roxicodone - PO 5 mg Q4H PRN Administration PAIN LEVEL 7 - 10 Senna 1 tab 07/07/18 22:00 07/08/18 22:20 Senna - PO Not Given BID [facility] Sevelamer Carbonate 800 mg 07/04/18 17:30 07/09/18 08:41 Renvela - PO Not Given TIDCM [facility] Vancomycin HCl 125 mg 07/04/18 18:00 07/09/18 05:08 Vancomycin Oral Solution PO 125 mg Q6HPO [facility] Administration Impression 1. ESRD on HD 2. anemia 3. DM 4. HTN 5. toe infection/gangrene 6. PVD 7. 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 type 4 cavernous malformation Plan - HD today - please do not hold bp meds on HD days - epogen for anemia - monitor hg - cont wound care - PO iron for now - avf 3:00 400 abf - renal diet
[2018-07-09] MEDS: LABETALOL HCL 100 MG TABLET (FP) PO SCH ×2 (11:55→21:11)
[2018-07-09] MEDS: LISINOPRIL 20 MG TABLET (FP) PO SCH (11:55)
[2018-07-09] MEDS: NIFEdipine E.R 60 MG TABLET (UD) PO SCH ×2 (12:02→21:11)
[2018-07-09] MEDS: CALCITRIOL 0.25 MCG CAPSULE (FP) PO SCH (12:02)
[2018-07-09] MEDS: FERROUS SO4 325 MG TABLET (FP) PO SCH ×2 (12:02→21:11)
[2018-07-09] MEDS: FUROSEMIDE 40 MG TABLET (FP) PO SCH (12:03)
[2018-07-09] MEDS: SENNOSIDES 8.6MG TABLET (FP) PO SCH ×2 (12:03→21:12)
[2018-07-09] MEDS ORDERED: EPOETIN ALFA 2,000 UNIT/1 ML VIAL IVPUSH ONE (13:30)
--- NOTE | 2018-07-09 16:55 | PN ---
Physical Exam: SUBJECTIVE: Patient seen and examined this morning. No new complaints. Continues to have pain at staple site. Denies any fevers, chills, chest pain, SOB, nausea, vomiting. OBJECTIVE: Vital Signs Period Temp Pulse Resp BP Sys/Cole Pulse Ox Last 24 Hr 97.7 F-98.8 F 52-63 18-20 134-169/49-79 95 GENERAL: A&Ox3, NAD, lying in bed comfortably HEAD: NCAT EYES: L eye non-reactive s/p cataract surgery. R eye wnl. EOMI. ENT: Oropharynx clear without exudates, MMM NECK: supple, No JVD LUNGS: Breath sounds equal, clear to auscultation bilaterally, no wheezes HEART: Regular rate and rhythm, S1, S2, Systolic murmur at the LLSB ABDOMEN: Soft, nontender, nondistended, normoactive bowel sounds, no guarding EXTREMITIES: 2+ pulses, no RLE edema. Dried, clean and intact LLE external dressing over stump. Wound closed and intact with fernando in place, No active drainage or discharge, no surrounding erythema. Tenderness to palpation at staple site described as sharp, 10/10 without radiation. No tenderness at rest. Gross lower extremity sensation intact b/l NEUROLOGICAL: Cranial nerves II through XII grossly intact. Normal speech. Laboratory Results - last 24 hr 07/08/18 07/09/18 07/09/18 16:49 05:11 07:40 WBC RBC Hgb Hct MCV MCH MCHC RDW Plt Count MPV Sodium 136 Potassium 4.0 Chloride 97 L Carbon Dioxide 30 Anion Gap 9 BUN 33 H Creatinine 5.5 H Creat Clearance w eGFR 10.33 POC Glucometer 165 141 Random Glucose 109 H Calcium 9.2 Blood Type Antibody Screen 07/09/18 07/09/18 07/09/18 07:40 07:40 11:48 WBC 10.7 H RBC 2.69 L Hgb 8.0 L Hct 23.9 L MCV 88.9 MCH 29.7 MCHC 33.4 RDW 18.3 H Plt Count 207 MPV 9.6 Sodium Potassium Chloride Carbon Dioxide Anion Gap BUN Creatinine Creat Clearance w eGFR POC Glucometer 109 Random Glucose Calcium Blood Type O POSITIVE Antibody Screen Negative Active Medications Acetaminophen (Tylenol -) 650 mg PO Q6H PRN PRN Reason: PAIN 1-3 Acetaminophen (Tylenol -) 325 mg PO Q4H PRN PRN Reason: PAIN LEVEL 4 - 6 Last Admin: 07/09/18 04:38 Dose: 325 mg Atorvastatin Calcium (Lipitor -) 80 mg PO HS [facility] Last Admin: 07/08/18 22:03 Dose: 80 mg Calcitriol (Rocaltrol -) 0.25 mcg PO DAILY [facility] Last Admin: 07/09/18 12:02 Dose: 0.25 mcg Docusate Sodium (Colace -) 100 mg PO TID [facility] Last Admin: 07/09/18 13:56 Dose: Not Given Ferrous Sulfate (Feosol -) 325 mg PO BID [facility] Last Admin: 07/09/18 12:02 Dose: 325 mg Furosemide (Lasix -) 40 mg PO DAILY [facility] Last Admin: 07/09/18 12:03 Dose: 40 mg Hydralazine HCl (Apresoline -) 100 mg PO TID [facility] Last Admin: 07/09/18 13:42 Dose: 100 mg Insulin Aspart (Novolog Vial Sliding Scale -) [facility] Protocol Last Admin: 07/09/18 11:50 Dose: Not Given Labetalol HCl (Normodyne Injection -) 20 mg IVPUSH Q4H PRN PRN Reason: HYPERTENSION Last Admin: 07/06/18 16:47 Dose: 20 mg Labetalol HCl (Normodyne -) 300 mg PO BID [facility] Last Admin: 07/09/18 11:55 Dose: 300 mg Lisinopril (Prinivil) 40 mg PO DAILY [facility] Last Admin: 07/09/18 11:55 Dose: 40 mg Nifedipine (Procardia Xl -) 60 mg PO BID [facility] Last Admin: 07/09/18 12:02 Dose: 60 mg Oxycodone HCl (Roxicodone -) 5 mg PO Q4H PRN PRN Reason: PAIN LEVEL 6-10 Senna (Senna -) 1 tab PO BID [facility] Last Admin: 07/09/18 12:03 Dose: Not Given Sevelamer Carbonate (Renvela -) 800 mg PO TIDCM [facility] Last Admin: 07/09/18 12:04 Dose: 800 mg Vancomycin HCl (Vancomycin Oral Solution) 125 mg PO Q6HPO [facility] Last Admin: 07/09/18 12:01 Dose: 125 mg IMAGING: -EKG: NORMAL SINUS RHYTHM, NONSPECIFIC T WAVE ABNORMALITY -EKG done (06/10) revealed new T-wave inversions in lateral leads, -Left Foot XRay (06/05): No fracture or osteomyelitis. -Left Foot XRay (06/12):Status post transmetatarsal amputation left second through fifth digits. Alignment maintained. -Left Foot XRay (06/26): Imaging reveals loss of bone density, heavy vascular calcifications and amputation of the toes with the metatarsal bases remain. There is some soft tissue swelling with bandage artifact. -CT ANGIOGRAM OF THE ABDOMEN AND PELVIS WITH BILATERAL LOWER EXTREMITY RUNOFFS: Predominant distal arterial disease suggestive of diabetic and/or nephrogenic vasculopathy. Predominant disease in the distal left popliteal and infrapopliteal arteries demonstrating interval improvement in flow and mild improvement in the degree of stenosis described on the prior exam, as described above. Essential flow to the foot is provided by the MIGUELITO. Peroneal artery is occluded and TRACK [employer] FIELD COACH demonstrate short segmental occlusions with reconstitution of flow in the plantar artery which demonstrate robust flow. Flow is seen in the digital arteries. Predominant right infrapopliteal disease, as described above, grossly unchanged since the prior exam. Subcutaneous edema with mesenteric stranding possibly due to third spacing/anasarca. Under distended urinary bladder with suggestion of wall thickening. Correlate clinically for cystitis. -CXR: Since 05/14/2018 again noted is the large heart, sclerotic knob and prominent central markings. An acute process is not seen. -R Hip XRay: Within the limitation of examination, the visualized osseous structures appear intact, no acute bony abnormalities are seen. -L Knee XRay: No acute fracture is seen. No evidence of suprapatellar joint effusion. Vascular calcifications. -Head CT Without contrast (07/02 @ 03:15): Approximately 5.9 mm x 3.6 mm x 4.4 mm acute hemorrhage measuring approximately 59 HU along the lateral aspect of the left thalamus, adjacent velasco radiata with mild peripharyngeal edema, The location of the hemorrhage likely related to hypertension. Clinical correlation. No CT evidence of acute territorial ischemic changes. No evidence of subarachnoid hemorrhage. No evidence of acute subdural, epidural hematoma. No evidence of skull fracture -Head CT Without contrast (07/02 @ 08:32): Stable approximately 7 mm focal acute /subacute hemorrhage in the left thalamus, laterally. -MRI Brain: There is no evidence of abnormal restricted diffusion in the brain to suggest acute or subacute infarction. On T2 gradient heme sensitive images, low signal lesion lateral to the left thalamus measuring 6.5 mm x 9.2 mm with blossoming affect, mild brain edema manifested by increased signal intensity on T2, FLAIR sequences. The lesion may represent cavernoma with recent hemorrhage. On T2 gradient echo heme sensitive images, lesion of low signal intensity measuring 6.7 mm x 4.9 mm is observed in the left mid darby. 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 No evidence of supratentorial white matter microangiopathic ischemic changes, gliosis. ASSESSMENT/PLAN: 68 y/o M w/ PMHx CAD, [place], PVD, ESRD on HD (MWF), HTN, admitted for gangrene/ osteomyelitis of the left foot on 05/16, now presents with worsening pain and discoloration of the left 4th toe and blackening and pain of the 3rd toe 1. Gangrene of L 3rd and 4th toes with Osteomyelitis -S/P BKA POD#5 (07/04) -Vascular surgery consulted, appreciate rec's, Continue daily dressing changes with clean dry dressing -S/P revision tma (Left toes 2-4) and amputation 1st ray left foot (06/24); s/p L TMA sparing great toe (06/11/18) -Completed Zosyn course (06/11-06/26) -Completed Levaquin course (06/27-07/07) -Pain control via Oxycodone -Podiatry (Dr. Garcia) consulted: Amputation on 06/11. Revised TMA on 06/24. -CTA noted as above -ID (Dr. Reyez) consulted, appreciate rec's -Surgical pathology pending -Continue incentive spirometer 2. HTN -BP continues to rise, likely pain related; Goal BP < 140/90 -Pain control via Oxycodone -Cont home dose nifedipine, hydralazine, lasix -Continue Lisinopril -Labetalol increased to 300mg BID -Continue Labetalol 20mg IVPUSH Q4H PRN is SBP >170 3. Intracranial hemorrage s/p Mechanical fall -Neurological exam unchanged, Currently at baseline mental status -Stroke Tele -R Hip XRay: No acute bony abnormalities are seen -L Knee XRay: No acute fracture is seen. -Head CT Without contrast (07/02 @ 03:15): Approximately 5.9 mm x 3.6 mm x 4.4 mm acute hemorrhage measuring approximately 59 HU along the lateral aspect of the left thalamus, adjacent velasco radiata with mild peripharyngeal edema -Head CT Without contrast (07/02 @ 08:32): Stable approximately 7 mm focal acute /subacute hemorrhage in the left thalamus, laterally. -MRI Brain: There is no evidence of abnormal estricted diffusion in the brain to suggest acute or subacute infarction. The lesion may represent cavernoma with recent hemorrhage. 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 -Neurology (Dr. Claire) consulted, Appreciate rec's, Check B12, TSH, Control SBP, Can start AC once BP is better controlled -Neurosurgery (Dr. Espinoza) was contacted by the overnight team -ASA/Plavix held -Discussed with Dr. Veliz, Will hold ASA/Plavix on D/C and patient will follow up outpatient with cardio 4. C. Diff Antigen Positive -2 Bloody BMs yesterday -Currently no complaints of Diarrhea or Abdominal pain -Continue PO Vanco (Started on 07/03) 5. Anemia -S/P 5 units pRBC's (2 on 07/01, 2 on 06/25, 1 on 06/26), Appropriate H&H response -Likely blood loss anemia due to surgery -will continue to monitor, possibly giving 1 unit pRBCs during dialysis 6. ESRD on HD (MWF) -Nephro (Dr. Flaherty) consulted -Vascular evaluated fistula -Cont home Lasix, Sevelamer -Pt requesting blood draws with dialysis 7. CAD/PVD -ASA/Plavix held -Discussed with Dr. Veliz, Will hold ASA/Plavix on D/C and patient will follow up outpatient with cardio 8. FEN -PO Fluids -Continue to monitor lytes -Diabetic/Renal diet 9. PPx -no heparin at this time per vascular Dispo: Will need PT eval prior to D/C Visit type - Emergency Visit Emergency Visit: Yes ED Registration Date: 06/05/18 Care time: The patient presented to the Emergency Department on the above date and was hospitalized for further evaluation of their emergent condition. - New Patient This patient is new to me today: No - Critical Care Critical Care patient: No - Discharge Referral Referred to [facility] Med P.C.: No
[2018-07-09] MEDS: ATORVASTATIN CA 80 MG TABLET (FP) PO SCH (21:11)
[2018-07-10] MEDS: VANCOMYCIN 250 MG/5 ML ORAL SOLUTION PO SCH ×3 (05:44→17:16)
[2018-07-10] MEDS: DOCUSATE SODIUM 100 MG CAPSULE (FP) PO SCH ×3 (05:44→22:33)
[2018-07-10] MEDS: hydrALAZINE HCL 50 MG TABLET (FP) PO SCH ×3 (05:59→22:32)
[2018-07-10] MEDS: INSULIN SLIDING SCALE (NOVOLOG) 1 VIAL SQ SCH ×3 (06:00→17:14)
[2018-07-10] MEDS: SEVELAMER CARBONATE 800 MG TAB (FP) PO SCH ×3 (08:27→17:18)
[2018-07-10] MEDS ORDERED: PT OWN MED DRAWER 7, Y5N ONE (09:45)
[2018-07-10] MEDS: FERROUS SO4 325 MG TABLET (FP) PO SCH ×2 (10:26→22:32)
[2018-07-10] MEDS: FUROSEMIDE 40 MG TABLET (FP) PO SCH (10:27)
[2018-07-10] MEDS: CALCITRIOL 0.25 MCG CAPSULE (FP) PO SCH (10:27)
[2018-07-10] MEDS: LABETALOL HCL 100 MG TABLET (FP) PO SCH ×2 (10:27→22:31)
[2018-07-10] MEDS: NIFEdipine E.R 60 MG TABLET (UD) PO SCH ×2 (10:28→22:32)
[2018-07-10] MEDS: SENNOSIDES 8.6MG TABLET (FP) PO SCH ×2 (10:28→22:32)
[2018-07-10] MEDS: LISINOPRIL 20 MG TABLET (FP) PO SCH (10:28)
[2018-07-10] MEDS ORDERED: INSULIN (NOVOLOG) ASPART 100 UNITS/ML 10ML VIAL ONE (11:35)
--- NOTE | 2018-07-10 13:03 | PN ---
Physical Exam: SUBJECTIVE: Patient seen and examined this morning in the presence of both his daughters. No new complaints. Continues to have pain at staple site. Requested family be present for wound dressing changes and to witness physical therapy recommendations as these maybe useful after discharge. OBJECTIVE: Vital Signs Period Temp Pulse Resp BP Sys/Cole Pulse Ox Last 24 Hr 97.6 F-98.4 F 56-72 18-18 134-183/53-77 94 GENERAL: A&Ox3, NAD, lying in bed comfortably HEAD: NCAT EYES: L eye non-reactive s/p cataract surgery. R eye wnl. EOMI. ENT: Oropharynx clear without exudates, MMM NECK: supple, No JVD LUNGS: Breath sounds equal, clear to auscultation bilaterally, no wheezes HEART: Regular rate and rhythm, S1, S2, Systolic murmur at the LLSB ABDOMEN: Soft, nontender, nondistended, normoactive bowel sounds, no guarding EXTREMITIES: 2+ pulses, no RLE edema. Dried, clean and intact LLE external dressing over stump. Wound closed and intact with fernando in place, Continues to heal, No active drainage or discharge, no surrounding erythema. Tenderness to palpation at staple site described as sharp, 10/10 without radiation. No tenderness at rest. Gross lower extremity sensation intact b/l NEUROLOGICAL: Cranial nerves II through XII grossly intact. Normal speech. Laboratory Results - last 24 hr 07/09/18 07/10/18 07/10/18 16:08 05:26 11:40 POC Glucometer 183 112 186 Active Medications Acetaminophen (Tylenol -) 650 mg PO Q6H PRN PRN Reason: PAIN 1-3 Last Admin: 07/09/18 23:20 Dose: 650 mg Acetaminophen (Tylenol -) 325 mg PO Q4H PRN PRN Reason: PAIN LEVEL 4 - 6 Last Admin: 07/09/18 04:38 Dose: 325 mg Atorvastatin Calcium (Lipitor -) 80 mg PO HS [facility] Last Admin: 07/09/18 21:11 Dose: 80 mg Calcitriol (Rocaltrol -) 0.25 mcg PO DAILY [facility] Last Admin: 07/10/18 10:27 Dose: 0.25 mcg Docusate Sodium (Colace -) 100 mg PO TID [facility] Last Admin: 07/10/18 05:44 Dose: Not Given Ferrous Sulfate (Feosol -) 325 mg PO BID [facility] Last Admin: 07/10/18 10:26 Dose: 325 mg Furosemide (Lasix -) 40 mg PO DAILY [facility] Last Admin: 07/10/18 10:27 Dose: 40 mg Hydralazine HCl (Apresoline -) 100 mg PO TID [facility] Last Admin: 07/10/18 05:59 Dose: 100 mg Insulin Aspart (Novolog Vial Sliding Scale -) 1 vial SQ TIDAC [facility]; Protocol Last Admin: 07/10/18 11:41 Dose: 2 unit Labetalol HCl (Normodyne Injection -) 20 mg IVPUSH Q4H PRN PRN Reason: HYPERTENSION Last Admin: 07/06/18 16:47 Dose: 20 mg Labetalol HCl (Normodyne -) 300 mg PO BID [facility] Last Admin: 07/10/18 10:27 Dose: 300 mg Lisinopril (Prinivil) 40 mg PO DAILY [facility] Last Admin: 07/10/18 10:28 Dose: 40 mg Nifedipine (Procardia Xl -) 60 mg PO BID [facility] Last Admin: 07/10/18 10:28 Dose: 60 mg Oxycodone HCl (Roxicodone -) 5 mg PO Q4H PRN PRN Reason: PAIN LEVEL 6-10 Last Admin: 07/09/18 23:20 Dose: 5 mg Senna (Senna -) 1 tab PO BID [facility] Last Admin: 07/10/18 10:28 Dose: 1 tab Sevelamer Carbonate (Renvela -) 800 mg PO TIDCM [facility] Last Admin: 07/10/18 11:42 Dose: 800 mg Vancomycin HCl (Vancomycin Oral Solution) 125 mg PO Q6HPO [facility] Last Admin: 07/10/18 11:42 Dose: 125 mg Microbiology 07/08/18 11:20 Stool Clostridium difficile (PCR) - Preliminary 07/02/18 11:00 Stool Clostridium difficile Antigen (LEONOR) - Final 07/02/18 11:00 Stool Clostridium difficile Toxin Assay - Final 06/27/18 19:30 Blood - Peripheral Venous Blood Culture - Final NO GROWTH AFTER 5 DAYS INCUBATION 06/27/18 17:30 Blood - Peripheral Venous Blood Culture - Final NO GROWTH AFTER 5 DAYS INCUBATION 06/24/18 10:44 Foot - Lt Transmetatarsal Amp Site Gram Stain - Final 06/24/18 10:44 Foot - Lt Transmetatarsal Amp Site Wound Culture - Final Aeromonas Hydrophilia Group 06/24/18 10:56 Foot - Lt Transmetatarsal Amp Site Gram Stain - Final 06/24/18 10:56 Foot - Lt Transmetatarsal Amp Site Wound Culture - Final Stenotrophomon.(X.)Maltophilia 06/05/18 11:10 Blood - Peripheral Venous Blood Culture - Final NO GROWTH AFTER 5 DAYS INCUBATION 06/05/18 11:10 Blood - Peripheral Venous Blood Culture - Final NO GROWTH AFTER 5 DAYS INCUBATION IMAGING: -EKG: NORMAL SINUS RHYTHM, NONSPECIFIC T WAVE ABNORMALITY -EKG done (06/10) revealed new T-wave inversions in lateral leads, -Left Foot XRay (06/05): No fracture or osteomyelitis. -Left Foot XRay (06/12):Status post transmetatarsal amputation left second through fifth digits. Alignment maintained. -Left Foot XRay (06/26): Imaging reveals loss of bone density, heavy vascular calcifications and amputation of the toes with the metatarsal bases remain. There is some soft tissue swelling with bandage artifact. -CT ANGIOGRAM OF THE ABDOMEN AND PELVIS WITH BILATERAL LOWER EXTREMITY RUNOFFS: Predominant distal arterial disease suggestive of diabetic and/or nephrogenic vasculopathy. Predominant disease in the distal left popliteal and infrapopliteal arteries demonstrating interval improvement in flow and mild improvement in the degree of stenosis described on the prior exam, as described above. Essential flow to the foot is provided by the MIGUELITO. Peroneal artery is occluded and MARKETING AREA MANAGER demonstrate short segmental occlusions with reconstitution of flow in the plantar artery which demonstrate robust flow. Flow is seen in the digital arteries. Predominant right infrapopliteal disease, as described above, grossly unchanged since the prior exam. Subcutaneous edema with mesenteric stranding possibly due to third spacing/anasarca. Under distended urinary bladder with suggestion of wall thickening. Correlate clinically for cystitis. -CXR: Since 05/14/2018 again noted is the large heart, sclerotic knob and prominent central markings. An acute process is not seen. -R Hip XRay: Within the limitation of examination, the visualized osseous structures appear intact, no acute bony abnormalities are seen. -L Knee XRay: No acute fracture is seen. No evidence of suprapatellar joint effusion. Vascular calcifications. -Head CT Without contrast (07/02 @ 03:15): Approximately 5.9 mm x 3.6 mm x 4.4 mm acute hemorrhage measuring approximately 59 HU along the lateral aspect of the left thalamus, adjacent velasco radiata with mild peripharyngeal edema, The location of the hemorrhage likely related to hypertension. Clinical correlation. No CT evidence of acute territorial ischemic changes. No evidence of subarachnoid hemorrhage. No evidence of acute subdural, epidural hematoma. No evidence of skull fracture -Head CT Without contrast (07/02 @ 08:32): Stable approximately 7 mm focal acute /subacute hemorrhage in the left thalamus, laterally. -MRI Brain: There is no evidence of abnormal restricted diffusion in the brain to suggest acute or subacute infarction. On T2 gradient heme sensitive images, low signal lesion lateral to the left thalamus measuring 6.5 mm x 9.2 mm with blossoming affect, mild brain edema manifested by increased signal intensity on T2, FLAIR sequences. The lesion may represent cavernoma with recent hemorrhage. On T2 gradient echo heme sensitive images, lesion of low signal intensity measuring 6.7 mm x 4.9 mm is observed in the left mid darby. 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 No evidence of supratentorial white matter microangiopathic ischemic changes, gliosis. ASSESSMENT/PLAN: 68 y/o M w/ PMHx CAD, [place], PVD, ESRD on HD (MWF), HTN, admitted for gangrene/ osteomyelitis of the left foot on 05/16, now presents with worsening pain and discoloration of the left 4th toe and blackening and pain of the 3rd toe 1. Gangrene of L 3rd and 4th toes with Osteomyelitis -S/P BKA POD#6 (07/04) -Vascular surgery consulted, appreciate rec's, Continue daily dressing changes with clean dry dressing -S/P revision tma (Left toes 2-4) and amputation 1st ray left foot (06/24); s/p L TMA sparing great toe (06/11/18) -Completed Zosyn course (06/11-06/26) -Completed Levaquin course (06/27-07/07) -Pain control via Oxycodone -Podiatry (Dr. Garcia) consulted: Amputation on 06/11. Revised TMA on 06/24. -CTA noted as above -ID (Dr. Reyez) consulted, appreciate rec's -Surgical pathology pending -Continue incentive spirometer 2. HTN -BP continues to rise, likely pain related; Goal BP < 140/90 -Pain control via Oxycodone -Cont home dose nifedipine, hydralazine, lasix -Continue Lisinopril -Labetalol increased to 300mg BID -Continue Labetalol 20mg IVPUSH Q4H PRN is SBP >170 3. Intracranial hemorrage s/p Mechanical fall -Neurological exam unchanged, Currently at baseline mental status -Stroke Tele -R Hip XRay: No acute bony abnormalities are seen -L Knee XRay: No acute fracture is seen. -Head CT Without contrast (07/02 @ 03:15): Approximately 5.9 mm x 3.6 mm x 4.4 mm acute hemorrhage measuring approximately 59 HU along the lateral aspect of the left thalamus, adjacent velasco radiata with mild peripharyngeal edema -Head CT Without contrast (07/02 @ 08:32): Stable approximately 7 mm focal acute /subacute hemorrhage in the left thalamus, laterally. -MRI Brain: There is no evidence of abnormal estricted diffusion in the brain to suggest acute or subacute infarction. The lesion may represent cavernoma with recent hemorrhage. 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 -Neurology (Dr. Claire) consulted, Appreciate rec's, Check B12, TSH, Control SBP, Can start AC once BP is better controlled -Neurosurgery (Dr. Espinoza) was contacted by the overnight team -ASA/Plavix held -Discussed with Dr. Veliz, Will hold ASA/Plavix on D/C and patient will follow up outpatient with cardio 4. C. Diff Antigen Positive -2 Bloody BMs yesterday -Currently no complaints of Diarrhea or Abdominal pain -Continue PO Vanco (Started on 07/03) 5. Anemia -S/P 5 units pRBC's (2 on 07/01, 2 on 06/25, 1 on 06/26), Appropriate H&H response -Likely blood loss anemia due to surgery -will continue to monitor, possibly giving 1 unit pRBCs during dialysis 6. ESRD on HD (MWF) -Nephro (Dr. Flaherty) consulted -Vascular evaluated fistula -Cont home Lasix, Sevelamer -Pt requesting blood draws with dialysis 7. CAD/PVD -ASA/Plavix held -Discussed with Dr. Veliz, Will hold ASA/Plavix on D/C and patient will follow up outpatient with cardio 8. FEN -PO Fluids -Continue to monitor lytes -Diabetic/Renal diet 9. PPx -no heparin at this time per vascular Dispo: Will need PT eval prior to D/C Visit type - Emergency Visit Emergency Visit: Yes ED Registration Date: 06/05/18 Care time: The patient presented to the Emergency Department on the above date and was hospitalized for further evaluation of their emergent condition. - New Patient This patient is new to me today: No - Critical Care Critical Care patient: No - Discharge Referral Referred to [facility] Med P.C.: No
--- NOTE | 2018-07-10 14:32 | PN ---
Progress Note, Physician History of Present Illness: Pt seen and examined at bedside. He is awake and alert. He denies shortness of breath. - Current Medication List Current Medications: Active Medications Acetaminophen (Tylenol -) 650 mg PO Q6H PRN PRN Reason: PAIN 1-3 Last Admin: 07/09/18 23:20 Dose: 650 mg Acetaminophen (Tylenol -) 325 mg PO Q4H PRN PRN Reason: PAIN LEVEL 4 - 6 Last Admin: 07/09/18 04:38 Dose: 325 mg Atorvastatin Calcium (Lipitor -) 80 mg PO HS [facility] Last Admin: 07/09/18 21:11 Dose: 80 mg Calcitriol (Rocaltrol -) 0.25 mcg PO DAILY [facility] Last Admin: 07/10/18 10:27 Dose: 0.25 mcg Docusate Sodium (Colace -) 100 mg PO TID [facility] Last Admin: 07/10/18 13:09 Dose: 100 mg Ferrous Sulfate (Feosol -) 325 mg PO BID [facility] Last Admin: 07/10/18 10:26 Dose: 325 mg Furosemide (Lasix -) 40 mg PO DAILY [facility] Last Admin: 07/10/18 10:27 Dose: 40 mg Hydralazine HCl (Apresoline -) 100 mg PO TID [facility] Last Admin: 07/10/18 13:09 Dose: 100 mg Insulin Aspart (Novolog Vial Sliding Scale -) 1 vial SQ TIDAC [facility]; Protocol Last Admin: 07/10/18 11:41 Dose: 2 unit Labetalol HCl (Normodyne Injection -) 20 mg IVPUSH Q4H PRN PRN Reason: HYPERTENSION Last Admin: 07/06/18 16:47 Dose: 20 mg Labetalol HCl (Normodyne -) 300 mg PO BID [facility] Last Admin: 07/10/18 10:27 Dose: 300 mg Lisinopril (Prinivil) 40 mg PO DAILY [facility] Last Admin: 07/10/18 10:28 Dose: 40 mg Nifedipine (Procardia Xl -) 60 mg PO BID [facility] Last Admin: 07/10/18 10:28 Dose: 60 mg Oxycodone HCl (Roxicodone -) 5 mg PO Q4H PRN PRN Reason: PAIN LEVEL 6-10 Last Admin: 07/09/18 23:20 Dose: 5 mg Senna (Senna -) 1 tab PO BID [facility] Last Admin: 07/10/18 10:28 Dose: 1 tab Sevelamer Carbonate (Renvela -) 800 mg PO TIDCM [facility] Last Admin: 07/10/18 11:42 Dose: 800 mg Vancomycin HCl (Vancomycin Oral Solution) 125 mg PO Q6HPO [facility] Last Admin: 07/10/18 11:42 Dose: 125 mg - Objective Vital Signs: Vital Signs Temperature 98.0 F 07/10/18 13:04 Pulse Rate 57 L 07/10/18 13:04 Respiratory Rate 18 07/10/18 13:04 Blood Pressure 151/64 07/10/18 13:04 O2 Sat by Pulse Oximetry (%) 94 L 07/10/18 09:00 Constitutional: Yes: Calm Eyes: Yes: Conjunctiva Clear HENT: Yes: Atraumatic Cardiovascular: Yes: S1, S2 Respiratory: Yes: CTA Bilaterally Gastrointestinal: Yes: Normal Bowel Sounds, Soft Genitourinary: Yes: WNL Extremities: Yes: Other (left bka) Edema: No Neurological: Yes: Oriented Psychiatric: Yes: Oriented Labs: CBC, BMP 07/09/18 07:40 07/09/18 07:40 INR, PTT INR 1.18 (0.83-1.09) H 07/04/18 05:30 Problem List - Problems (1) ESRD (end stage renal disease) Code(s): N18.6 - END STAGE RENAL DISEASE (2) Gangrene Code(s): I96 - GANGRENE, NOT ELSEWHERE CLASSIFIED (3) PAD (peripheral artery disease) Code(s): I73.9 - PERIPHERAL VASCULAR DISEASE, UNSPECIFIED Assessment/Plan Current Medications Generic Name Dose Route Start Last Admin Trade Name Freq PRN Reason Stop Dose Admin Acetaminophen 650 mg 07/04/18 16:55 07/09/18 23:20 Tylenol - PO 650 mg Q6H PRN Administration PAIN 1-3 Acetaminophen 325 mg 07/04/18 16:55 07/09/18 04:38 Tylenol - PO 325 mg Q4H PRN Administration PAIN LEVEL 4 - 6 Atorvastatin Calcium 80 mg 07/04/18 22:00 07/09/18 21:11 Lipitor - PO 80 mg HS [facility] Administration Calcitriol 0.25 mcg 07/05/18 10:00 07/10/18 10:27 Rocaltrol - PO 0.25 mcg DAILY [facility] Administration Docusate Sodium 100 mg 07/04/18 22:00 07/10/18 13:09 Colace - PO 100 mg TID [facility] Administration Ferrous Sulfate 325 mg 07/04/18 22:00 07/10/18 10:26 Feosol - PO 325 mg BID [facility] Administration Furosemide 40 mg 07/05/18 10:00 07/10/18 10:27 Lasix - PO 40 mg DAILY [facility] Administration Hydralazine HCl 100 mg 07/04/18 22:00 07/10/18 13:09 Apresoline - PO 100 mg TID [facility] Administration Insulin Aspart 1 vial 07/05/18 07:00 07/10/18 11:41 Novolog Vial Sliding Scale - SQ 2 unit TIDAC [facility] Administration Protocol Labetalol HCl 20 mg 07/04/18 16:55 07/06/18 16:47 Normodyne Injection - IVPUSH 20 mg Q4H PRN Administration HYPERTENSION Labetalol HCl 300 mg 07/06/18 16:15 07/10/18 10:27 Normodyne - PO 300 mg BID [facility] Administration Lisinopril 40 mg 07/05/18 10:00 07/10/18 10:28 Prinivil PO 40 mg DAILY [facility] Administration Nifedipine 60 mg 07/04/18 22:00 07/10/18 10:28 Procardia Xl - PO 60 mg BID [facility] Administration Oxycodone HCl 5 mg 07/09/18 13:31 07/09/18 23:20 Roxicodone - PO 5 mg Q4H PRN Administration PAIN LEVEL 6-10 Senna 1 tab 07/07/18 22:00 07/10/18 10:28 Senna - PO 1 tab BID [facility] Administration Sevelamer Carbonate 800 mg 07/04/18 17:30 07/10/18 11:42 Renvela - PO 800 mg TIDCM [facility] Administration Vancomycin HCl 125 mg 07/04/18 18:00 07/10/18 11:42 Vancomycin Oral Solution PO 125 mg Q6HPO [facility] Administration Impression 1. ESRD on HD 2. anemia 3. DM 4. HTN 5. toe infection/gangrene 6. PVD 7. 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 type 4 cavernous malformation Plan - HD in am - cont wound care - encourage compliance with meds - please give bp meds on HD days - epogen for anemia - monitor hg - PO iron for now - avf 3:00 400 abf - renal diet
[2018-07-10] MEDS ORDERED: SODIUM CHLORIDE 250 ML IV PRN (14:34)
--- NOTE | 2018-07-10 20:12 | PN ---
Teaching Attending Note Name of Resident: Linda Agrwaal ATTENDING PHYSICIAN STATEMENT I saw and evaluated the patient. I reviewed the resident's note and discussed the case with the resident. I agree with the resident's findings and plan as documented. SUBJECTIVE: Patient is feeling better with no acute distress, feels depressed. OBJECTIVE: Vital Signs Temperature 98.5 F 07/10/18 17:49 Pulse Rate 64 07/10/18 17:49 Respiratory Rate 20 07/10/18 17:49 Blood Pressure 169/54 L 07/10/18 17:49 O2 Sat by Pulse Oximetry (%) 94 L 07/10/18 20:03 GENERAL: The patient is awake, alert, and fully oriented, in no acute distress. HEAD: NCAT; EYES: PERRL, EOMI ENT: oropharynx clear without exudates, MMM NECK: supple, No JVD LUNGS: Breath sounds equal, clear to auscultation bilaterally, no wheezes HEART: Regular rate and rhythm, S1, S2, Systolic murmur at the LLSB ABDOMEN: Soft, nontender, nondistended, normoactive bowel sounds, no guarding EXTREMITIES: 2+ pulses, no edema. s/p amputation of left 3 and 4 toes, s/p left BKA NEUROLOGICAL: Cranial nerves II through XII grossly intact. Normal speech CBCD WBC 10.7 K/mm3 (4.0-10.0) H 07/09/18 07:40 RBC 2.69 M/mm3 (4.00-5.60) L 07/09/18 07:40 Hgb 8.0 GM/dL (11.7-16.9) L 07/09/18 07:40 Hct 23.9 % (35.4-49) L 07/09/18 07:40 MCV 88.9 fl (80-96) 07/09/18 07:40 MCHC 33.4 g/dl (32.0-35.9) 07/09/18 07:40 RDW 18.3 % (11.9-15.9) H 07/09/18 07:40 Plt Count 207 K/MM3 (134-434) 07/09/18 07:40 MPV 9.6 fl (7.5-11.1) 07/09/18 07:40 CMP Sodium 136 mmol/L (136-145) 07/09/18 07:40 Potassium 4.0 mmol/L (3.5-5.1) 07/09/18 07:40 Chloride 97 mmol/L (98-107) L 07/09/18 07:40 Carbon Dioxide 30 mmol/L (21-32) 07/09/18 07:40 Anion Gap 9 MMOL/L (8-16) 07/09/18 07:40 BUN 33 mg/dL (7-18) H 07/09/18 07:40 Creatinine 5.5 mg/dL (0.55-1.3) H 07/09/18 07:40 Creat Clearance w eGFR 10.33 (>60) 07/09/18 07:40 Random Glucose 109 mg/dL (74-106) H 07/09/18 07:40 Calcium 9.2 mg/dL (8.5-10.1) 07/09/18 07:40 Total Bilirubin 0.8 mg/dL (0.2-1) 07/07/18 11:37 AST 94 U/L (15-37) H 07/07/18 11:37 ALT 10 U/L (13-61) L 07/07/18 11:37 Alkaline Phosphatase 355 U/L (45-117) H 07/07/18 11:37 Total Protein 7.0 g/dl (6.4-8.2) 07/07/18 11:37 Albumin 1.9 g/dl (3.4-5.0) L 07/07/18 11:37 Current Medications Generic Name Dose Route Start Last Admin Trade Name Freq PRN Reason Stop Dose Admin Acetaminophen 650 mg 07/04/18 16:55 07/09/18 23:20 Tylenol - PO 650 mg Q6H PRN Administration PAIN 1-3 Acetaminophen 325 mg 07/04/18 16:55 07/09/18 04:38 Tylenol - PO 325 mg Q4H PRN Administration PAIN LEVEL 4 - 6 Atorvastatin Calcium 80 mg 07/04/18 22:00 07/09/18 21:11 Lipitor - PO 80 mg HS [facility] Administration Calcitriol 0.25 mcg 07/05/18 10:00 07/10/18 10:27 Rocaltrol - PO 0.25 mcg DAILY [facility] Administration Docusate Sodium 100 mg 07/04/18 22:00 07/10/18 13:09 Colace - PO 100 mg TID [facility] Administration Epoetin Thomas 10,000 unit/ 12,000 unit 07/11/18 15:00 Epoetin Thomas 2,000 unit IVPUSH 07/11/18 15:01 ONCE ONE Ferrous Sulfate 325 mg 07/04/18 22:00 07/10/18 10:26 Feosol - PO 325 mg BID [facility] Administration Furosemide 40 mg 07/05/18 10:00 07/10/18 10:27 Lasix - PO 40 mg DAILY [facility] Administration Hydralazine HCl 100 mg 07/04/18 22:00 07/10/18 13:09 Apresoline - PO 100 mg TID [facility] Administration Sodium Chloride 250 mls @ 3,000 mls/hr 07/10/18 14:34 Normal Saline - IV 07/11/18 14:34 PRN PRN Hypotension during Dialysis Insulin Aspart 1 vial 07/05/18 07:00 07/10/18 17:14 Novolog Vial Sliding Scale - SQ Not Given TIDAC [facility] Protocol Labetalol HCl 20 mg 07/04/18 16:55 07/06/18 16:47 Normodyne Injection - IVPUSH 20 mg Q4H PRN Administration HYPERTENSION Labetalol HCl 300 mg 07/06/18 16:15 07/10/18 10:27 Normodyne - PO 300 mg BID [facility] Administration Lisinopril 40 mg 07/05/18 10:00 07/10/18 10:28 Prinivil PO 40 mg DAILY [facility] Administration Nifedipine 60 mg 07/04/18 22:00 07/10/18 10:28 Procardia Xl - PO 60 mg BID [facility] Administration Oxycodone HCl 5 mg 07/09/18 13:31 07/09/18 23:20 Roxicodone - PO 5 mg Q4H PRN Administration PAIN LEVEL 6-10 Senna 1 tab 07/07/18 22:00 07/10/18 10:28 Senna - PO 1 tab BID [facility] Administration Sevelamer Carbonate 800 mg 07/04/18 17:30 07/10/18 17:18 Renvela - PO 800 mg TIDCM [facility] Administration Vancomycin HCl 125 mg 07/04/18 18:00 07/10/18 17:16 Vancomycin Oral Solution PO 125 mg Q6HPO [facility] Administration Home Medications Medication Instructions Recorded Sevelamer HCl [Renagel] 800 mg PO TIDCM 05/16/18 Calcitriol [Calcitriol -] 0.25 mcg PO DAILY #30 capsule 05/27/18 Furosemide [Lasix -] 40 mg PO DAILY #30 tablet 05/27/18 Hydralazine HCl 100 mg PO TID #90 tablet 05/27/18 Nifedipine ER [Procardia XL -] 60 mg PO BID #60 tab.er.24 05/27/18 Acetaminophen [Tylenol] 650 mg PO QID PRN 06/05/18 Atorvastatin Ca [Lipitor] 80 mg PO HS #30 tablet 07/09/18 Docusate Sodium [Colace -] 100 mg PO TID #90 capsule 07/09/18 Ferrous Sulfate [Feosol] 325 mg PO BID #60 ud 07/09/18 Labetalol HCl [Normodyne -] 300 mg PO BID #180 tablet 07/09/18 Lisinopril [Prinivil] 40 mg PO DAILY #60 tablet 07/09/18 Sennosides [Senna -] 1 tab PO BID #60 tablet 07/09/18 Vancomycin Oral Solution 125 mg PO Q6HPO #20 ml 07/09/18 ASSESSMENT AND PLAN: Patient is a 68 y/o man with h/o CAD, recent [place], PVD, ESRD on HD, HTN, HLP, Hep B , DM, and recent admission for L 4th toe gangrene and OM, s/p angiogram, atherectomy and angioplasty, who presented with increased pain in foot and change in L 3rd toe color. He was found to have a gangrenous 3rd and 4th toes # POD 6 s/p left BKA 07/04, s/p Left 3rd/4th toe gangrene with osteomyelitis,S/ P revision tma (Left toes 2-4) and amputation 1st ray left foot (06/24); s/p L TMA sparing great toe (06/11/18). #Acute/subacute 7 mm left thalamic intraparenchymal haemorrhage, most likely HTN related rather than traumatic #Anemia of chronic disease s/p 3 u PRBC pre-op, on Procrit continue #Uncontrolled HTN, in the setting of intermittent refusal to take medications. #C def with (Ag positive, toxin neg but patient with diarrhea), On oral Vancomycin continue, on contact isolation #ESRD on HD, nephro on the case. On procrit. #HTN continue meds. DVT PX: SCDS on the right.
[2018-07-10] MEDS: oxyCODONE HCL 5 MG TABLET PO PRN (22:33)
[2018-07-10] MEDS: ATORVASTATIN CA 80 MG TABLET (FP) PO SCH (22:33)
[2018-07-11] MEDS: VANCOMYCIN 250 MG/5 ML ORAL SOLUTION PO SCH ×5 (01:00→22:56)
[2018-07-11] MEDS ORDERED: PT OWN MED DRAWER 7, Y5N ONE ×2 (01:32→10:54)
[2018-07-11] MEDS: hydrALAZINE HCL 50 MG TABLET (FP) PO SCH ×3 (06:50→22:55)
[2018-07-11] MEDS: DOCUSATE SODIUM 100 MG CAPSULE (FP) PO SCH ×3 (06:50→23:02)
[2018-07-11] MEDS: INSULIN SLIDING SCALE (NOVOLOG) 1 VIAL SQ SCH ×3 (06:59→17:30)
[2018-07-11] MEDS ORDERED: EPOETIN ALFA 10,000 UNIT, EPOETIN ALFA 2,000 UNIT IVPUSH ONE (08:00)
[2018-07-11 08:24] LABS: HEMATOCRIT 24.8 % (35.4-49); HEMOGLOBIN 8.1 GM/dL (11.7-16.9); MCH 28.9 pg (25.7-33.7); MCHC 32.7 g/dl (32.0-35.9); MEAN CELL VOLUME 88.5 fl (80-96); MEAN PLT VOLUME 8.9 fl (7.5-11.1); PLATELET COUNT 217 K/MM3 (134-434); RDW 17.8 % (11.9-15.9); WHITE BLOOD COUNT 10.1 K/mm3 (4.0-10.0)
[2018-07-11 08:42] LABS: ANION GAP 7 MMOL/L (8-16); BLOOD UREA NITROGEN 28 mg/dL (7-18); CALCIUM 8.9 mg/dL (8.5-10.1); CHLORIDE 97 mmol/L (98-107); CO2 34 mmol/L (21-32); CREATININE 4.4 mg/dL (0.55-1.3); GLUCOSE,RANDOM 115 mg/dL (74-106); MAGNESIUM 2.3 mg/dL (1.8-2.4); PHOSPHOROUS 3.2 mg/dL (2.5-4.9); POTASSIUM 3.5 mmol/L (3.5-5.1); SODIUM 138 mmol/L (136-145)
--- NOTE | 2018-07-11 08:51 | PN ---
Teaching Attending Note Name of Resident: Linda Agrawal ATTENDING PHYSICIAN STATEMENT I saw and evaluated the patient. I reviewed the resident's note and discussed the case with the resident. I agree with the resident's findings and plan as documented. SUBJECTIVE: Patien tis better with no acute distress. continues to be depressed. OBJECTIVE: Vital Signs Temperature 98.2 F 07/11/18 07:25 Pulse Rate 55 L 07/11/18 07:30 Respiratory Rate 18 07/11/18 07:30 Blood Pressure 143/55 L 07/11/18 07:30 O2 Sat by Pulse Oximetry (%) 94 L 07/10/18 20:03 GENERAL: The patient is awake, alert, and fully oriented, in no acute distress. HEAD: NCAT; EYES: PERRL, EOMI ENT: oropharynx clear without exudates, MMM NECK: supple, No JVD LUNGS: Breath sounds equal, clear to auscultation bilaterally, no wheezes HEART: Regular rate and rhythm, S1, S2, Systolic murmur at the LLSB ABDOMEN: Soft, nontender, nondistended, normoactive bowel sounds, no guarding EXTREMITIES: 2+ pulses, no edema. s/p amputation of left 3 and 4 toes, s/p left BKA NEUROLOGICAL: Cranial nerves II through XII grossly intact. Normal speech CBCD WBC 10.1 K/mm3 (4.0-10.0) H 07/11/18 07:45 RBC 2.80 M/mm3 (4.00-5.60) L 07/11/18 07:45 Hgb 8.1 GM/dL (11.7-16.9) L 07/11/18 07:45 Hct 24.8 % (35.4-49) L 07/11/18 07:45 MCV 88.5 fl (80-96) 07/11/18 07:45 MCHC 32.7 g/dl (32.0-35.9) 07/11/18 07:45 RDW 17.8 % (11.9-15.9) H 07/11/18 07:45 Plt Count 217 K/MM3 (134-434) 07/11/18 07:45 MPV 8.9 fl (7.5-11.1) 07/11/18 07:45 CMP Sodium 138 mmol/L (136-145) 07/11/18 07:45 Potassium 3.5 mmol/L (3.5-5.1) 07/11/18 07:45 Chloride 97 mmol/L (98-107) L 07/11/18 07:45 Carbon Dioxide 34 mmol/L (21-32) H 07/11/18 07:45 Anion Gap 7 MMOL/L (8-16) L 07/11/18 07:45 BUN 28 mg/dL (7-18) H 07/11/18 07:45 Creatinine 4.4 mg/dL (0.55-1.3) H 07/11/18 07:45 Creat Clearance w eGFR 13.36 (>60) 07/11/18 07:45 Random Glucose 115 mg/dL (74-106) H 07/11/18 07:45 Calcium 8.9 mg/dL (8.5-10.1) 07/11/18 07:45 Total Bilirubin 0.8 mg/dL (0.2-1) 07/07/18 11:37 AST 94 U/L (15-37) H 07/07/18 11:37 ALT 10 U/L (13-61) L 07/07/18 11:37 Alkaline Phosphatase 355 U/L (45-117) H 07/07/18 11:37 Total Protein 7.0 g/dl (6.4-8.2) 07/07/18 11:37 Albumin 1.9 g/dl (3.4-5.0) L 07/07/18 11:37 Current Medications Generic Name Dose Route Start Last Admin Trade Name Freq PRN Reason Stop Dose Admin Acetaminophen 650 mg 07/04/18 16:55 07/09/18 23:20 Tylenol - PO 650 mg Q6H PRN Administration PAIN 1-3 Acetaminophen 325 mg 07/04/18 16:55 07/09/18 04:38 Tylenol - PO 325 mg Q4H PRN Administration PAIN LEVEL 4 - 6 Atorvastatin Calcium 80 mg 07/04/18 22:00 07/10/18 22:33 Lipitor - PO 80 mg HS [facility] Administration Calcitriol 0.25 mcg 07/05/18 10:00 07/10/18 10:27 Rocaltrol - PO 0.25 mcg DAILY [facility] Administration Docusate Sodium 100 mg 07/04/18 22:00 07/11/18 06:50 Colace - PO 100 mg TID [facility] Administration Ferrous Sulfate 325 mg 07/04/18 22:00 07/10/18 22:32 Feosol - PO 325 mg BID [facility] Administration Furosemide 40 mg 07/05/18 10:00 07/10/18 10:27 Lasix - PO 40 mg DAILY [facility] Administration Hydralazine HCl 100 mg 07/04/18 22:00 07/11/18 06:50 Apresoline - PO 100 mg TID [facility] Administration Sodium Chloride 250 mls @ 3,000 mls/hr 07/10/18 14:34 Normal Saline - IV 07/11/18 14:34 PRN PRN Hypotension during Dialysis Insulin Aspart 1 vial 07/05/18 07:00 07/11/18 06:59 Novolog Vial Sliding Scale - SQ Not Given TIDAC [facility] Protocol Labetalol HCl 20 mg 07/04/18 16:55 07/06/18 16:47 Normodyne Injection - IVPUSH 20 mg Q4H PRN Administration HYPERTENSION Labetalol HCl 300 mg 07/06/18 16:15 07/10/18 22:31 Normodyne - PO 300 mg BID [facility] Administration Lisinopril 40 mg 07/05/18 10:00 07/10/18 10:28 Prinivil PO 40 mg DAILY [facility] Administration Nifedipine 60 mg 07/04/18 22:00 07/10/18 22:32 Procardia Xl - PO 60 mg BID [facility] Administration Oxycodone HCl 5 mg 07/09/18 13:31 07/10/18 22:33 Roxicodone - PO 5 mg Q4H PRN Administration PAIN LEVEL 6-10 Senna 1 tab 07/07/18 22:00 07/10/18 22:32 Senna - PO 1 tab BID [facility] Administration Sevelamer Carbonate 800 mg 07/04/18 17:30 07/10/18 17:18 Renvela - PO 800 mg TIDCM [facility] Administration Vancomycin HCl 125 mg 07/04/18 18:00 07/11/18 06:50 Vancomycin Oral Solution PO 125 mg Q6HPO [facility] Administration Home Medications Medication Instructions Recorded Sevelamer HCl [Renagel] 800 mg PO TIDCM 05/16/18 Calcitriol [Calcitriol -] 0.25 mcg PO DAILY #30 capsule 05/27/18 Furosemide [Lasix -] 40 mg PO DAILY #30 tablet 05/27/18 Hydralazine HCl 100 mg PO TID #90 tablet 05/27/18 Nifedipine ER [Procardia XL -] 60 mg PO BID #60 tab.er.24 05/27/18 Acetaminophen [Tylenol] 650 mg PO QID PRN 06/05/18 Atorvastatin Ca [Lipitor] 80 mg PO HS #30 tablet 07/09/18 Docusate Sodium [Colace -] 100 mg PO TID #90 capsule 07/09/18 Ferrous Sulfate [Feosol] 325 mg PO BID #60 ud 07/09/18 Labetalol HCl [Normodyne -] 300 mg PO BID #180 tablet 07/09/18 Lisinopril [Prinivil] 40 mg PO DAILY #60 tablet 07/09/18 Sennosides [Senna -] 1 tab PO BID #60 tablet 07/09/18 Vancomycin Oral Solution 125 mg PO Q6HPO #20 ml 07/09/18 ASSESSMENT AND PLAN: Patient is a 68 y/o man with h/o CAD, recent [place], PVD, ESRD on HD, HTN, HLP, Hep B , DM, and recent admission for L 4th toe gangrene and OM, s/p angiogram, atherectomy and angioplasty, who presented with increased pain in foot and change in L 3rd toe color. He was found to have a gangrenous 3rd and 4th toes # POD 7 s/p left BKA 07/04, s/p Left 3rd/4th toe gangrene with osteomyelitis,S/ P revision tma (Left toes 2-4) and amputation 1st ray left foot (06/24); s/p L TMA sparing great toe (06/11/18). #Acute/subacute 7 mm left thalamic intraparenchymal haemorrhage, most likely HTN related rather than traumatic #Anemia of chronic disease s/p 3 u PRBC pre-op, on Procrit continue #Uncontrolled HTN, in the setting of intermittent refusal to take medications. #C def with (Ag positive, toxin neg but patient with diarrhea), On oral Vancomycin continue, on contact isolation #ESRD on HD, nephro on the case. On procrit. #HTN continue meds. # Depression will get Psych to see the patient. DVT PX: SCDS on the right.
[2018-07-11] MEDS: SEVELAMER CARBONATE 800 MG TAB (FP) PO SCH ×3 (09:20→17:30)
--- NOTE | 2018-07-11 09:45 | PN ---
Progress Note, Physician History of Present Illness: Pt seen and examined at bedside. He is awake and alert. He denies shortness of breath. - Current Medication List Current Medications: Active Medications Acetaminophen (Tylenol -) 650 mg PO Q6H PRN PRN Reason: PAIN 1-3 Last Admin: 07/09/18 23:20 Dose: 650 mg Acetaminophen (Tylenol -) 325 mg PO Q4H PRN PRN Reason: PAIN LEVEL 4 - 6 Last Admin: 07/09/18 04:38 Dose: 325 mg Atorvastatin Calcium (Lipitor -) 80 mg PO HS [facility] Last Admin: 07/10/18 22:33 Dose: 80 mg Calcitriol (Rocaltrol -) 0.25 mcg PO DAILY [facility] Last Admin: 07/10/18 10:27 Dose: 0.25 mcg Docusate Sodium (Colace -) 100 mg PO TID [facility] Last Admin: 07/11/18 06:50 Dose: 100 mg Ferrous Sulfate (Feosol -) 325 mg PO BID [facility] Last Admin: 07/10/18 22:32 Dose: 325 mg Furosemide (Lasix -) 40 mg PO DAILY [facility] Last Admin: 07/10/18 10:27 Dose: 40 mg Hydralazine HCl (Apresoline -) 100 mg PO TID [facility] Last Admin: 07/11/18 06:50 Dose: 100 mg Sodium Chloride (Normal Saline -) 250 mls @ 3,000 mls/hr IV PRN PRN PRN Reason: Hypotension during Dialysis Stop: 07/11/18 14:34 Insulin Aspart (Novolog Vial Sliding Scale -) 1 vial SQ TIDAC [facility]; Protocol Last Admin: 07/11/18 06:59 Dose: Not Given Labetalol HCl (Normodyne Injection -) 20 mg IVPUSH Q4H PRN PRN Reason: HYPERTENSION Last Admin: 07/06/18 16:47 Dose: 20 mg Labetalol HCl (Normodyne -) 300 mg PO BID [facility] Last Admin: 07/10/18 22:31 Dose: 300 mg Lisinopril (Prinivil) 40 mg PO DAILY [facility] Last Admin: 07/10/18 10:28 Dose: 40 mg Nifedipine (Procardia Xl -) 60 mg PO BID [facility] Last Admin: 07/10/18 22:32 Dose: 60 mg Oxycodone HCl (Roxicodone -) 5 mg PO Q4H PRN PRN Reason: PAIN LEVEL 6-10 Last Admin: 07/10/18 22:33 Dose: 5 mg Senna (Senna -) 1 tab PO BID [facility] Last Admin: 07/10/18 22:32 Dose: 1 tab Sevelamer Carbonate (Renvela -) 800 mg PO TIDCM [facility] Last Admin: 07/11/18 09:20 Dose: Not Given Vancomycin HCl (Vancomycin Oral Solution) 125 mg PO Q6HPO [facility] Last Admin: 07/11/18 06:50 Dose: 125 mg - Objective Vital Signs: Vital Signs Temperature 98.2 F 07/11/18 07:25 Pulse Rate 59 L 07/11/18 09:00 Respiratory Rate 18 07/11/18 09:00 Blood Pressure 128/49 L 07/11/18 09:00 O2 Sat by Pulse Oximetry (%) 94 L 07/10/18 20:03 Constitutional: Yes: Calm Eyes: Yes: Conjunctiva Clear HENT: Yes: Atraumatic Neck: Yes: Supple Cardiovascular: Yes: S1, S2 Respiratory: Yes: CTA Bilaterally Gastrointestinal: Yes: Soft Genitourinary: Yes: WNL Musculoskeletal: Yes: Other (left bka) Integumentary: Yes: WNL Wound/Incision: Yes: [place] Intact Neurological: Yes: Oriented Psychiatric: Yes: Oriented Labs: CBC, BMP 07/11/18 07:45 07/11/18 07:45 INR, PTT INR 1.18 (0.83-1.09) H 07/04/18 05:30 Problem List - Problems (1) ESRD (end stage renal disease) Code(s): N18.6 - END STAGE RENAL DISEASE (2) Gangrene Code(s): I96 - GANGRENE, NOT ELSEWHERE CLASSIFIED (3) PAD (peripheral artery disease) Code(s): I73.9 - PERIPHERAL VASCULAR DISEASE, UNSPECIFIED Assessment/Plan Current Medications Generic Name Dose Route Start Last Admin Trade Name Freq PRN Reason Stop Dose Admin Acetaminophen 650 mg 07/04/18 16:55 07/09/18 23:20 Tylenol - PO 650 mg Q6H PRN Administration PAIN 1-3 Acetaminophen 325 mg 07/04/18 16:55 07/09/18 04:38 Tylenol - PO 325 mg Q4H PRN Administration PAIN LEVEL 4 - 6 Atorvastatin Calcium 80 mg 07/04/18 22:00 07/10/18 22:33 Lipitor - PO 80 mg HS [facility] Administration Calcitriol 0.25 mcg 07/05/18 10:00 07/10/18 10:27 Rocaltrol - PO 0.25 mcg DAILY [facility] Administration Docusate Sodium 100 mg 07/04/18 22:00 07/11/18 06:50 Colace - PO 100 mg TID [facility] Administration Ferrous Sulfate 325 mg 07/04/18 22:00 07/10/18 22:32 Feosol - PO 325 mg BID [facility] Administration Furosemide 40 mg 07/05/18 10:00 07/10/18 10:27 Lasix - PO 40 mg DAILY [facility] Administration Hydralazine HCl 100 mg 07/04/18 22:00 07/11/18 06:50 Apresoline - PO 100 mg TID [facility]UCKY Administration Sodium Chloride 250 mls @ 3,000 mls/hr 07/10/18 14:34 Normal Saline - IV 07/11/18 14:34 PRN PRN Hypotension during Dialysis Insulin Aspart 1 vial 07/05/18 07:00 07/11/18 06:59 Novolog Vial Sliding Scale - SQ Not Given TIDAC [facility] Protocol Labetalol HCl 20 mg 07/04/18 16:55 07/06/18 16:47 Normodyne Injection - IVPUSH 20 mg Q4H PRN Administration HYPERTENSION Labetalol HCl 300 mg 07/06/18 16:15 07/10/18 22:31 Normodyne - PO 300 mg BID [facility] Administration Lisinopril 40 mg 07/05/18 10:00 07/10/18 10:28 Prinivil PO 40 mg DAILY [facility] Administration Nifedipine 60 mg 07/04/18 22:00 07/10/18 22:32 Procardia Xl - PO 60 mg BID [facility] Administration Oxycodone HCl 5 mg 07/09/18 13:31 07/10/18 22:33 Roxicodone - PO 5 mg Q4H PRN Administration PAIN LEVEL 6-10 Senna 1 tab 07/07/18 22:00 07/10/18 22:32 Senna - PO 1 tab BID [facility] Administration Sevelamer Carbonate 800 mg 07/04/18 17:30 07/11/18 09:20 Renvela - PO Not Given TIDCM CHUCKY Vancomycin HCl 125 mg 07/04/18 18:00 07/11/18 06:50 Vancomycin Oral Solution PO 125 mg Q6HPO [facility]UCKY Administration Impression 1. ESRD on HD 2. anemia 3. DM 4. HTN 5. toe infection/gangrene 6. PVD 7. 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 type 4 cavernous malformation Plan - pt tolerating HD - bp is stable - cont bp meds and monitor - cont wound care - next HD on Saturday - monitor hg - epogen for anemia - cont iron supplements - avf 3:00 400 abf - renal diet
[2018-07-11] MEDS: SENNOSIDES 8.6MG TABLET (FP) PO SCH ×2 (10:56→23:02)
[2018-07-11] MEDS: LISINOPRIL 20 MG TABLET (FP) PO SCH (11:00)
[2018-07-11] MEDS: FUROSEMIDE 40 MG TABLET (FP) PO SCH (11:01)
[2018-07-11] MEDS: CALCITRIOL 0.25 MCG CAPSULE (FP) PO SCH (11:01)
[2018-07-11] MEDS: NIFEdipine E.R 60 MG TABLET (UD) PO SCH ×2 (11:02→23:03)
[2018-07-11] MEDS: FERROUS SO4 325 MG TABLET (FP) PO SCH ×2 (11:02→22:56)
[2018-07-11] MEDS: LABETALOL HCL 100 MG TABLET (FP) PO SCH ×2 (11:02→22:55)
[2018-07-11] MEDS ORDERED: EPOETIN ALFA 2,000 UNIT/1 ML VIAL IVPUSH ONE (14:34)
--- NOTE | 2018-07-11 15:42 | PN ---
Physical Exam: SUBJECTIVE: Patient seen and examined this morning at bedside. No new complaints. OBJECTIVE: Vital Signs Period Temp Pulse Resp BP Sys/Cole Pulse Ox Last 24 Hr 97.5 F-98.5 F 51-64 18-20 119-169/43-90 94-94 GENERAL: A&Ox3, NAD, lying in bed comfortably HEAD: NCAT EYES: L eye non-reactive s/p cataract surgery. R eye wnl. EOMI. ENT: Oropharynx clear without exudates, MMM NECK: supple, No JVD LUNGS: Breath sounds equal, clear to auscultation bilaterally, no wheezes HEART: Regular rate and rhythm, S1, S2, Systolic murmur at the LLSB ABDOMEN: Soft, nontender, nondistended, normoactive bowel sounds, no guarding EXTREMITIES: 2+ pulses, no RLE edema. Dried, clean and intact LLE external dressing over stump. Wound closed and intact with fernando in place, Continues to heal, No active drainage or discharge, no surrounding erythema. Tenderness to palpation at staple site described as sharp, 10/10 without radiation. No tenderness at rest. Gross lower extremity sensation intact b/l NEUROLOGICAL: Cranial nerves II through XII grossly intact. Normal speech. Laboratory Results - last 24 hr 07/10/18 07/10/18 07/11/18 17:12 22:28 06:54 WBC RBC Hgb Hct MCV MCH MCHC RDW Plt Count MPV Sodium Potassium Chloride Carbon Dioxide Anion Gap BUN Creatinine Creat Clearance w eGFR POC Glucometer 98 213 100 Random Glucose Calcium Phosphorus Magnesium 07/11/18 07/11/18 07/11/18 07:45 07:45 11:09 WBC 10.1 H RBC 2.80 L Hgb 8.1 L Hct 24.8 L MCV 88.5 MCH 28.9 MCHC 32.7 RDW 17.8 H Plt Count 217 MPV 8.9 Sodium 138 Potassium 3.5 Chloride 97 L Carbon Dioxide 34 H Anion Gap 7 L BUN 28 H Creatinine 4.4 H Creat Clearance w eGFR 13.36 POC Glucometer 145 Random Glucose 115 H Calcium 8.9 Phosphorus 3.2 Magnesium 2.3 Microbiology 07/08/18 11:20 Stool Clostridium difficile (PCR) - Final 07/02/18 11:00 Stool Clostridium difficile Antigen (LEONOR) - Final 07/02/18 11:00 Stool Clostridium difficile Toxin Assay - Final 06/27/18 19:30 Blood - Peripheral Venous Blood Culture - Final NO GROWTH AFTER 5 DAYS INCUBATION 06/27/18 17:30 Blood - Peripheral Venous Blood Culture - Final NO GROWTH AFTER 5 DAYS INCUBATION 06/24/18 10:44 Foot - Lt Transmetatarsal Amp Site Gram Stain - Final 06/24/18 10:44 Foot - Lt Transmetatarsal Amp Site Wound Culture - Final Aeromonas Hydrophilia Group 06/24/18 10:56 Foot - Lt Transmetatarsal Amp Site Gram Stain - Final 06/24/18 10:56 Foot - Lt Transmetatarsal Amp Site Wound Culture - Final Stenotrophomon.(X.)Maltophilia 06/05/18 11:10 Blood - Peripheral Venous Blood Culture - Final NO GROWTH AFTER 5 DAYS INCUBATION 06/05/18 11:10 Blood - Peripheral Venous Blood Culture - Final NO GROWTH AFTER 5 DAYS INCUBATION Active Medications Acetaminophen (Tylenol -) 650 mg PO Q6H PRN PRN Reason: PAIN 1-3 Last Admin: 07/09/18 23:20 Dose: 650 mg Acetaminophen (Tylenol -) 325 mg PO Q4H PRN PRN Reason: PAIN LEVEL 4 - 6 Last Admin: 07/09/18 04:38 Dose: 325 mg Atorvastatin Calcium (Lipitor -) 80 mg PO HS [facility] Last Admin: 07/10/18 22:33 Dose: 80 mg Calcitriol (Rocaltrol -) 0.25 mcg PO DAILY [facility] Last Admin: 07/11/18 11:01 Dose: 0.25 mcg Docusate Sodium (Colace -) 100 mg PO TID [facility] Last Admin: 07/11/18 14:13 Dose: Not Given Ferrous Sulfate (Feosol -) 325 mg PO BID [facility] Last Admin: 07/11/18 11:02 Dose: 325 mg Furosemide (Lasix -) 40 mg PO DAILY [facility] Last Admin: 07/11/18 11:01 Dose: 40 mg Hydralazine HCl (Apresoline -) 100 mg PO TID [facility] Last Admin: 07/11/18 14:13 Dose: 100 mg Insulin Aspart (Novolog Vial Sliding Scale -) 1 vial SQ TIDAC [facility]; Protocol Last Admin: 07/11/18 11:12 Dose: Not Given Labetalol HCl (Normodyne Injection -) 20 mg IVPUSH Q4H PRN PRN Reason: HYPERTENSION Last Admin: 07/06/18 16:47 Dose: 20 mg Labetalol HCl (Normodyne -) 300 mg PO BID [facility] Last Admin: 07/11/18 11:02 Dose: 300 mg Lisinopril (Prinivil) 40 mg PO DAILY [facility] Last Admin: 07/11/18 11:00 Dose: 40 mg Nifedipine (Procardia Xl -) 60 mg PO BID [facility] Last Admin: 07/11/18 11:02 Dose: 60 mg Oxycodone HCl (Roxicodone -) 5 mg PO Q4H PRN PRN Reason: PAIN LEVEL 6-10 Last Admin: 07/10/18 22:33 Dose: 5 mg Senna (Senna -) 1 tab PO BID [facility] Last Admin: 07/11/18 10:56 Dose: Not Given Sevelamer Carbonate (Renvela -) 800 mg PO TIDCM [facility] Last Admin: 07/11/18 12:16 Dose: Not Given Vancomycin HCl (Vancomycin Oral Solution) 125 mg PO Q6HPO [facility] Last Admin: 07/11/18 12:16 Dose: 125 mg IMAGING: -EKG: NORMAL SINUS RHYTHM, NONSPECIFIC T WAVE ABNORMALITY -EKG done (06/10) revealed new T-wave inversions in lateral leads, -Left Foot XRay (06/05): No fracture or osteomyelitis. -Left Foot XRay (06/12):Status post transmetatarsal amputation left second through fifth digits. Alignment maintained. -Left Foot XRay (06/26): Imaging reveals loss of bone density, heavy vascular calcifications and amputation of the toes with the metatarsal bases remain. There is some soft tissue swelling with bandage artifact. -CT ANGIOGRAM OF THE ABDOMEN AND PELVIS WITH BILATERAL LOWER EXTREMITY RUNOFFS: Predominant distal arterial disease suggestive of diabetic and/or nephrogenic vasculopathy. Predominant disease in the distal left popliteal and infrapopliteal arteries demonstrating interval improvement in flow and mild improvement in the degree of stenosis described on the prior exam, as described above. Essential flow to the foot is provided by the MIGUELITO. Peroneal artery is occluded and SPEARER demonstrate short segmental occlusions with reconstitution of flow in the plantar artery which demonstrate robust flow. Flow is seen in the digital arteries. Predominant right infrapopliteal disease, as described above, grossly unchanged since the prior exam. Subcutaneous edema with mesenteric stranding possibly due to third spacing/anasarca. Under distended urinary bladder with suggestion of wall thickening. Correlate clinically for cystitis. -CXR: Since 05/14/2018 again noted is the large heart, sclerotic knob and prominent central markings. An acute process is not seen. -R Hip XRay: Within the limitation of examination, the visualized osseous structures appear intact, no acute bony abnormalities are seen. -L Knee XRay: No acute fracture is seen. No evidence of suprapatellar joint effusion. Vascular calcifications. -Head CT Without contrast (07/02 @ 03:15): Approximately 5.9 mm x 3.6 mm x 4.4 mm acute hemorrhage measuring approximately 59 HU along the lateral aspect of the left thalamus, adjacent velasco radiata with mild peripharyngeal edema, The location of the hemorrhage likely related to hypertension. Clinical correlation. No CT evidence of acute territorial ischemic changes. No evidence of subarachnoid hemorrhage. No evidence of acute subdural, epidural hematoma. No evidence of skull fracture -Head CT Without contrast (07/02 @ 08:32): Stable approximately 7 mm focal acute /subacute hemorrhage in the left thalamus, laterally. -MRI Brain: There is no evidence of abnormal restricted diffusion in the brain to suggest acute or subacute infarction. On T2 gradient heme sensitive images, low signal lesion lateral to the left thalamus measuring 6.5 mm x 9.2 mm with blossoming affect, mild brain edema manifested by increased signal intensity on T2, FLAIR sequences. The lesion may represent cavernoma with recent hemorrhage. On T2 gradient echo heme sensitive images, lesion of low signal intensity measuring 6.7 mm x 4.9 mm is observed in the left mid darby. 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 No evidence of supratentorial white matter microangiopathic ischemic changes, gliosis. ASSESSMENT/PLAN: 68 y/o M w/ PMHx CAD, [place], PVD, ESRD on HD (MWF), HTN, admitted for gangrene/ osteomyelitis of the left foot on 05/16, now presents with worsening pain and discoloration of the left 4th toe and blackening and pain of the 3rd toe 1. Gangrene of L 3rd and 4th toes with Osteomyelitis -S/P BKA POD#7 (07/04) -Vascular surgery consulted, appreciate rec's, Continue daily dressing changes with clean dry dressing -S/P revision tma (Left toes 2-4) and amputation 1st ray left foot (06/24); s/p L TMA sparing great toe (06/11/18) -Completed Zosyn course (06/11-06/26) -Completed Levaquin course (06/27-07/07) -Pain control via Oxycodone -Podiatry (Dr. Garcia) consulted: Amputation on 06/11. Revised TMA on 06/24. -CTA noted as above -ID (Dr. Reyez) consulted, appreciate rec's -Surgical pathology pending -Continue incentive spirometer 2. HTN -BP continues to rise, likely pain related; Goal BP < 140/90 -Pain control via Oxycodone -Cont home dose nifedipine, hydralazine, lasix -Continue Lisinopril -Labetalol increased to 300mg BID -Continue Labetalol 20mg IVPUSH Q4H PRN is SBP >170 3. Intracranial hemorrage s/p Mechanical fall -Neurological exam unchanged, Currently at baseline mental status -Stroke Tele -R Hip XRay: No acute bony abnormalities are seen -L Knee XRay: No acute fracture is seen. -Head CT Without contrast (07/02 @ 03:15): Approximately 5.9 mm x 3.6 mm x 4.4 mm acute hemorrhage measuring approximately 59 HU along the lateral aspect of the left thalamus, adjacent velasco radiata with mild peripharyngeal edema -Head CT Without contrast (07/02 @ 08:32): Stable approximately 7 mm focal acute /subacute hemorrhage in the left thalamus, laterally. -MRI Brain: There is no evidence of abnormal estricted diffusion in the brain to suggest acute or subacute infarction. The lesion may represent cavernoma with recent hemorrhage. 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 -Neurology (Dr. Claire) consulted, Appreciate rec's, Check B12, TSH, Control SBP, Can start AC once BP is better controlled -Neurosurgery (Dr. Espinoza) was contacted by the overnight team -ASA/Plavix held -Discussed with Dr. Veliz, Will hold ASA/Plavix on D/C and patient will follow up outpatient with cardio 4. C. Diff Antigen Positive -2 Bloody BMs yesterday -Currently no complaints of Diarrhea or Abdominal pain -Continue PO Vanco (Started on 07/03) 5. Anemia -S/P 5 units pRBC's (2 on 07/01, 2 on 06/25, 1 on 06/26), Appropriate H&H response -Likely blood loss anemia due to surgery -will continue to monitor, possibly giving 1 unit pRBCs during dialysis 6. ESRD on HD (MWF) -Nephro (Dr. Flaherty) consulted -Vascular evaluated fistula -Cont home Lasix, Sevelamer -Pt requesting blood draws with dialysis 7. CAD/PVD -ASA/Plavix held -Discussed with Dr. Veliz, Will hold ASA/Plavix on D/C and patient will follow up outpatient with cardio 8. FEN -PO Fluids -Continue to monitor lytes -Diabetic/Renal diet 9. PPx -no heparin at this time per vascular Dispo: Will need PT eval prior to D/C Visit type - Emergency Visit Emergency Visit: Yes ED Registration Date: 06/05/18 Care time: The patient presented to the Emergency Department on the above date and was hospitalized for further evaluation of their emergent condition. - New Patient This patient is new to me today: No - Critical Care Critical Care patient: No - Discharge Referral Referred to [facility] Med [facility] No
--- NOTE | 2018-07-11 17:34 | CON.PSY ---
Psychiatry Consult Chief Complaint: 68 year old male with a long history of chronic medical conditions and AKA of left leg. staff report agitation and non compliance with treatment, refusoing [facility]hab [facility]. Symptoms: reports: Anhedonia - Previous Psychiatric Treatment Outpatient: None Inpatient: None - Previous Substance Abuse Treatment Outpatient: None Inpatient: None - Current Medications Current Medications: Active Medications Acetaminophen (Tylenol -) 650 mg PO Q6H PRN PRN Reason: PAIN 1-3 Last Admin: 07/09/18 23:20 Dose: 650 mg Acetaminophen (Tylenol -) 325 mg PO Q4H PRN PRN Reason: PAIN LEVEL 4 - 6 Last Admin: 07/09/18 04:38 Dose: 325 mg Atorvastatin Calcium (Lipitor -) 80 mg PO HS [facility] Last Admin: 07/10/18 22:33 Dose: 80 mg Calcitriol (Rocaltrol -) 0.25 mcg PO DAILY [facility] Last Admin: 07/11/18 11:01 Dose: 0.25 mcg Docusate Sodium (Colace -) 100 mg PO TID [facility] Last Admin: 07/11/18 14:13 Dose: Not Given Ferrous Sulfate (Feosol -) 325 mg PO BID [facility] Last Admin: 07/11/18 11:02 Dose: 325 mg Furosemide (Lasix -) 40 mg PO DAILY [facility] Last Admin: 07/11/18 11:01 Dose: 40 mg Hydralazine HCl (Apresoline -) 100 mg PO TID [facility] Last Admin: 07/11/18 14:13 Dose: 100 mg Insulin Aspart (Novolog Vial Sliding Scale -) 1 vial SQ TIDAC [facility]; Protocol Last Admin: 07/11/18 11:12 Dose: Not Given Labetalol HCl (Normodyne Injection -) 20 mg IVPUSH Q4H PRN PRN Reason: HYPERTENSION Last Admin: 07/06/18 16:47 Dose: 20 mg Labetalol HCl (Normodyne -) 300 mg PO BID [facility] Last Admin: 07/11/18 11:02 Dose: 300 mg Lisinopril (Prinivil) 40 mg PO DAILY [facility] Last Admin: 07/11/18 11:00 Dose: 40 mg Nifedipine (Procardia Xl -) 60 mg PO BID [facility] Last Admin: 07/11/18 11:02 Dose: 60 mg Oxycodone HCl (Roxicodone -) 5 mg PO Q4H PRN PRN Reason: PAIN LEVEL 6-10 Last Admin: 07/10/18 22:33 Dose: 5 mg Senna (Senna -) 1 tab PO BID [facility] Last Admin: 07/11/18 10:56 Dose: Not Given Sevelamer Carbonate (Renvela -) 800 mg PO TIDCM [facility] Last Admin: 07/11/18 12:16 Dose: Not Given Vancomycin HCl (Vancomycin Oral Solution) 125 mg PO Q6HPO [facility] Last Admin: 07/11/18 12:16 Dose: 125 mg - Allergies Allergies: Allergies Allergy/AdvReac Type Severity Reaction Status Date / Time No Known Allergies Allergy Verified 05/14/18 19:30 - Current Living Status Usual Living Arrangement: With Significant Other - Current Mental Status Evaluation Appearance: Well Groomed Attitude: Cooperative - Affect Affect: Constrictive Appropriateness: Appropriate to Content - Mood Mood: Depressed - Speech/Language Expressive: Coherent - Psychomotor Activity Psychomotor Activity: Slowed - Thought Process Thought Process: Intact - Thought Content Hallucinations: Absent Delusions: Absent - Self Perception Self Perception: No Impairment - Cognition Attention: Alert Orientation: Time Memory, Immediate Recall: Intact Memory, Short Term: 2/3 Memory, Remote with Promptin/3 - Concentration Serial Sevens Intact: No Simple Calculations Intact: No - Abstraction Proverb Interpretation: Impaired Judgement: Minimally Impaired - Insight Insight: Intact - Impulse Control Impulse Control: Minimally Impaired - Suicidal Ideation Suicidal Ideation: No - Homicidal Ideation Homicidal Ideation: No Assessment/Plan 1) cymbalta 20mg po od for pain and depression.
[2018-07-11] MEDS: oxyCODONE HCL 5 MG TABLET PO PRN (22:55)
[2018-07-11] MEDS: ATORVASTATIN CA 80 MG TABLET (FP) PO SCH (22:56)
[2018-07-12] MEDS: VANCOMYCIN 250 MG/5 ML ORAL SOLUTION PO SCH ×4 (04:45→17:25)
[2018-07-12] MEDS ORDERED: INSULIN (NOVOLOG) ASPART 100 UNITS/ML 10ML VIAL ONE (05:59)
[2018-07-12] MEDS: hydrALAZINE HCL 50 MG TABLET (FP) PO SCH ×3 (06:07→22:30)
[2018-07-12] MEDS: INSULIN SLIDING SCALE (NOVOLOG) 1 VIAL SQ SCH ×3 (06:14→16:15)
[2018-07-12] MEDS: DOCUSATE SODIUM 100 MG CAPSULE (FP) PO SCH ×3 (06:14→22:25)
[2018-07-12] MEDS ORDERED: PT OWN MED DRAWER 7, Y5N ONE ×2 (08:53→09:01)
--- NOTE | 2018-07-12 08:54 | PN ---
Progress Note (short form) - Note Progress Note: Patient is feeling better with no acute distress, no naUSEA OR Vomiting, family at bedside. Vital Signs Temperature 97.9 F 07/12/18 06:00 Pulse Rate 56 L 07/12/18 06:00 Respiratory Rate 17 07/12/18 06:00 Blood Pressure 137/57 L 07/12/18 06:00 O2 Sat by Pulse Oximetry (%) 97 07/11/18 21:00 GENERAL: The patient is awake, alert, and fully oriented, in no acute distress. HEAD: NCAT; EYES: PERRL, EOMI ENT: oropharynx clear without exudates, MMM NECK: supple, No JVD LUNGS: Breath sounds equal, clear to auscultation bilaterally, no wheezes HEART: Regular rate and rhythm, S1, S2, Systolic murmur at the LLSB ABDOMEN: Soft, nontender, nondistended, normoactive bowel sounds, no guarding EXTREMITIES: 2+ pulses, no edema. s/p amputation of left 3 and 4 toes, s/p left BKA NEUROLOGICAL: Cranial nerves II through XII grossly intact. Normal speech CBCD WBC 10.1 K/mm3 (4.0-10.0) H 07/11/18 07:45 RBC 2.80 M/mm3 (4.00-5.60) L 07/11/18 07:45 Hgb 8.1 GM/dL (11.7-16.9) L 07/11/18 07:45 Hct 24.8 % (35.4-49) L 07/11/18 07:45 MCV 88.5 fl (80-96) 07/11/18 07:45 MCHC 32.7 g/dl (32.0-35.9) 07/11/18 07:45 RDW 17.8 % (11.9-15.9) H 07/11/18 07:45 Plt Count 217 K/MM3 (134-434) 07/11/18 07:45 MPV 8.9 fl (7.5-11.1) 07/11/18 07:45 CMP Sodium 138 mmol/L (136-145) 07/11/18 07:45 Potassium 3.5 mmol/L (3.5-5.1) 07/11/18 07:45 Chloride 97 mmol/L (98-107) L 07/11/18 07:45 Carbon Dioxide 34 mmol/L (21-32) H 07/11/18 07:45 Anion Gap 7 MMOL/L (8-16) L 07/11/18 07:45 BUN 28 mg/dL (7-18) H 07/11/18 07:45 Creatinine 4.4 mg/dL (0.55-1.3) H 07/11/18 07:45 Creat Clearance w eGFR 13.36 (>60) 07/11/18 07:45 Random Glucose 115 mg/dL (74-106) H 07/11/18 07:45 Calcium 8.9 mg/dL (8.5-10.1) 07/11/18 07:45 Total Bilirubin 0.8 mg/dL (0.2-1) 07/07/18 11:37 AST 94 U/L (15-37) H 07/07/18 11:37 ALT 10 U/L (13-61) L 07/07/18 11:37 Alkaline Phosphatase 355 U/L (45-117) H 07/07/18 11:37 Total Protein 7.0 g/dl (6.4-8.2) 07/07/18 11:37 Albumin 1.9 g/dl (3.4-5.0) L 07/07/18 11:37 Current Medications Generic Name Dose Route Start Last Admin Trade Name Freq PRN Reason Stop Dose Admin Acetaminophen 650 mg 07/04/18 16:55 07/09/18 23:20 Tylenol - PO 650 mg Q6H PRN Administration PAIN 1-3 Acetaminophen 325 mg 07/04/18 16:55 07/09/18 04:38 Tylenol - PO 325 mg Q4H PRN Administration PAIN LEVEL 4 - 6 Atorvastatin Calcium 80 mg 07/04/18 22:00 07/11/18 22:56 Lipitor - PO 80 mg HS [facility] Administration Calcitriol 0.25 mcg 07/05/18 10:00 07/11/18 11:01 Rocaltrol - PO 0.25 mcg DAILY [facility] Administration Docusate Sodium 100 mg 07/04/18 22:00 07/12/18 06:14 Colace - PO Not Given TID [facility] Duloxetine HCl 20 mg 07/12/18 10:00 Cymbalta - PO DAILY [facility] Ferrous Sulfate 325 mg 07/04/18 22:00 07/11/18 22:56 Feosol - PO 325 mg BID [facility] Administration Furosemide 40 mg 07/05/18 10:00 07/11/18 11:01 Lasix - PO 40 mg DAILY [facility] Administration Hydralazine HCl 100 mg 07/04/18 22:00 07/12/18 06:07 Apresoline - PO 100 mg TID [facility] Administration Insulin Aspart 1 vial 07/05/18 07:00 07/12/18 06:14 Novolog Vial Sliding Scale - SQ Not Given TIDAC [facility] Protocol Labetalol HCl 20 mg 07/04/18 16:55 07/06/18 16:47 Normodyne Injection - IVPUSH 20 mg Q4H PRN Administration HYPERTENSION Labetalol HCl 300 mg 07/06/18 16:15 07/11/18 22:55 Normodyne - PO 300 mg BID [facility] Administration Lisinopril 40 mg 07/05/18 10:00 07/11/18 11:00 Prinivil PO 40 mg DAILY [facility] Administration Nifedipine 60 mg 07/04/18 22:00 07/11/18 23:03 Procardia Xl - PO 60 mg BID [facility] Administration Oxycodone HCl 5 mg 07/09/18 13:31 07/11/18 22:55 Roxicodone - PO 5 mg Q4H PRN Administration PAIN LEVEL 6-10 Senna 1 tab 07/07/18 22:00 07/11/18 23:02 Senna - PO Not Given BID [facility] Sevelamer Carbonate 800 mg 07/04/18 17:30 07/11/18 17:30 Renvela - PO 800 mg TIDCM [facility] Administration Vancomycin HCl 125 mg 07/04/18 18:00 07/12/18 06:07 Vancomycin Oral Solution PO 125 mg Q6HPO [facility] Administration Home Medications Medication Instructions Recorded Sevelamer HCl [Renagel] 800 mg PO TIDCM 05/16/18 Calcitriol [Calcitriol -] 0.25 mcg PO DAILY #30 capsule 05/27/18 Furosemide [Lasix -] 40 mg PO DAILY #30 tablet 05/27/18 Hydralazine HCl 100 mg PO TID #90 tablet 05/27/18 Nifedipine ER [Procardia XL -] 60 mg PO BID #60 tab.er.24 05/27/18 Acetaminophen [Tylenol] 650 mg PO QID PRN 06/05/18 Atorvastatin Ca [Lipitor] 80 mg PO HS #30 tablet 07/09/18 Docusate Sodium [Colace -] 100 mg PO TID #90 capsule 07/09/18 Ferrous Sulfate [Feosol] 325 mg PO BID #60 ud 07/09/18 Labetalol HCl [Normodyne -] 300 mg PO BID #180 tablet 07/09/18 Lisinopril [Prinivil] 40 mg PO DAILY #60 tablet 07/09/18 Sennosides [Senna -] 1 tab PO BID #60 tablet 07/09/18 Vancomycin Oral Solution 125 mg PO Q6HPO #20 ml 07/09/18 ASSESSMENT AND PLAN: Patient is a 68 y/o man with h/o CAD, recent [place], PVD, ESRD on HD, HTN, HLP, Hep B , DM, and recent admission for L 4th toe gangrene and OM, s/p angiogram, atherectomy and angioplasty, who presented with increased pain in foot and change in L 3rd toe color. He was found to have a gangrenous 3rd and 4th toes # Acute Depression: on Cymbalta now as per # POD 8 s/p left BKA 07/04, s/p Left 3rd/4th toe gangrene with osteomyelitis,S/ P revision tma (Left toes 2-4) and amputation 1st ray left foot (06/24); s/p L TMA sparing great toe (06/11/18). #Acute/subacute 7 mm left thalamic intraparenchymal haemorrhage, most likely HTN related rather than traumatic #Anemia of chronic disease s/p 3 u PRBC pre-op, on Procrit continue #Uncontrolled HTN, in the setting of intermittent refusal to take medications. #C def with (Ag positive, toxin neg but patient with diarrhea), On oral Vancomycin continue, on contact isolation #ESRD on HD, nephro on the case. On procrit. #HTN continue meds. DVT PX: SCDS on the right. Visit type - Emergency Visit Emergency Visit: Yes ED Registration Date: 06/05/18 Care time: The patient presented to the Emergency Department on the above date and was hospitalized for further evaluation of their emergent condition. - New Patient This patient is new to me today: No - Critical Care Critical Care patient: No
[2018-07-12] MEDS: LABETALOL HCL 100 MG TABLET (FP) PO SCH ×2 (09:02→22:29)
[2018-07-12] MEDS: NIFEdipine E.R 60 MG TABLET (UD) PO SCH ×2 (09:03→22:32)
[2018-07-12] MEDS: SENNOSIDES 8.6MG TABLET (FP) PO SCH ×2 (09:03→22:26)
[2018-07-12] MEDS: FERROUS SO4 325 MG TABLET (FP) PO SCH ×2 (09:03→22:30)
[2018-07-12] MEDS: DULoxetine HCL 20 MG CAPSULE.DR (FP) PO SCH (09:03)
[2018-07-12] MEDS: FUROSEMIDE 40 MG TABLET (FP) PO SCH (09:03)
[2018-07-12] MEDS: CALCITRIOL 0.25 MCG CAPSULE (FP) PO SCH (09:03)
[2018-07-12] MEDS: LISINOPRIL 20 MG TABLET (FP) PO SCH (09:03)
[2018-07-12] MEDS: SEVELAMER CARBONATE 800 MG TAB (FP) PO SCH ×3 (09:03→17:25)
[2018-07-12] MEDS: oxyCODONE HCL 5 MG TABLET PO PRN (13:41)
--- NOTE | 2018-07-12 16:23 | PN ---
Progress Note, Physician History of Present Illness: Pt seen and examined at bedside. He is awake and appears comfortable. He denies shortness of breath. - Current Medication List Current Medications: Active Medications Acetaminophen (Tylenol -) 650 mg PO Q6H PRN PRN Reason: PAIN 1-3 Last Admin: 07/09/18 23:20 Dose: 650 mg Acetaminophen (Tylenol -) 325 mg PO Q4H PRN PRN Reason: PAIN LEVEL 4 - 6 Last Admin: 07/09/18 04:38 Dose: 325 mg Atorvastatin Calcium (Lipitor -) 80 mg PO HS [facility] Last Admin: 07/11/18 22:56 Dose: 80 mg Calcitriol (Rocaltrol -) 0.25 mcg PO DAILY [facility] Last Admin: 07/12/18 09:03 Dose: 0.25 mcg Docusate Sodium (Colace -) 100 mg PO TID [facility] Last Admin: 07/12/18 15:07 Dose: Not Given Duloxetine HCl (Cymbalta -) 20 mg PO DAILY [facility] Last Admin: 07/12/18 09:03 Dose: 20 mg Ferrous Sulfate (Feosol -) 325 mg PO BID [facility] Last Admin: 07/12/18 09:03 Dose: 325 mg Furosemide (Lasix -) 40 mg PO DAILY [facility] Last Admin: 07/12/18 09:03 Dose: 40 mg Hydralazine HCl (Apresoline -) 100 mg PO TID [facility] Last Admin: 07/12/18 13:41 Dose: 100 mg Insulin Aspart (Novolog Vial Sliding Scale -) 1 vial SQ TIDAC [facility]; Protocol Last Admin: 07/12/18 16:15 Dose: Not Given Labetalol HCl (Normodyne Injection -) 20 mg IVPUSH Q4H PRN PRN Reason: HYPERTENSION Last Admin: 07/06/18 16:47 Dose: 20 mg Labetalol HCl (Normodyne -) 300 mg PO BID [facility] Last Admin: 07/12/18 09:02 Dose: 300 mg Lisinopril (Prinivil) 40 mg PO DAILY [facility] Last Admin: 07/12/18 09:03 Dose: 40 mg Nifedipine (Procardia Xl -) 60 mg PO BID [facility] Last Admin: 07/12/18 09:03 Dose: 60 mg Oxycodone HCl (Roxicodone -) 5 mg PO Q4H PRN PRN Reason: PAIN LEVEL 6-10 Last Admin: 07/12/18 13:41 Dose: 5 mg Senna (Senna -) 1 tab PO BID [facility] Last Admin: 07/12/18 09:03 Dose: Not Given Sevelamer Carbonate (Renvela -) 800 mg PO TIDCM [facility] Last Admin: 07/12/18 12:04 Dose: 800 mg Vancomycin HCl (Vancomycin Oral Solution) 125 mg PO Q6HPO [facility] Last Admin: 07/12/18 12:04 Dose: 125 mg - Objective Vital Signs: Vital Signs Temperature 97.4 F L 07/12/18 14:00 Pulse Rate 55 L 07/12/18 14:00 Respiratory Rate 18 07/12/18 14:00 Blood Pressure 139/50 L 07/12/18 14:00 O2 Sat by Pulse Oximetry (%) 95 07/12/18 10:22 Constitutional: Yes: Calm Eyes: Yes: Conjunctiva Clear HENT: Yes: Atraumatic Cardiovascular: Yes: S1, S2 Respiratory: Yes: CTA Bilaterally Gastrointestinal: Yes: WNL Genitourinary: Yes: WNL Musculoskeletal: Yes: Other (left bka) Edema: No Neurological: Yes: Oriented Psychiatric: Yes: Oriented Labs: CBC, BMP 07/11/18 07:45 07/11/18 07:45 INR, PTT INR 1.18 (0.83-1.09) H 07/04/18 05:30 Problem List - Problems (1) ESRD (end stage renal disease) Code(s): N18.6 - END STAGE RENAL DISEASE (2) Gangrene Code(s): I96 - GANGRENE, NOT ELSEWHERE CLASSIFIED (3) PAD (peripheral artery disease) Code(s): I73.9 - PERIPHERAL VASCULAR DISEASE, UNSPECIFIED Assessment/Plan Current Medications Generic Name Dose Route Start Last Admin Trade Name Freq PRN Reason Stop Dose Admin Acetaminophen 650 mg 07/04/18 16:55 07/09/18 23:20 Tylenol - PO 650 mg Q6H PRN Administration PAIN 1-3 Acetaminophen 325 mg 07/04/18 16:55 07/09/18 04:38 Tylenol - PO 325 mg Q4H PRN Administration PAIN LEVEL 4 - 6 Atorvastatin Calcium 80 mg 07/04/18 22:00 07/11/18 22:56 Lipitor - PO 80 mg HS [facility] Administration Calcitriol 0.25 mcg 07/05/18 10:00 07/12/18 09:03 Rocaltrol - PO 0.25 mcg DAILY [facility] Administration Docusate Sodium 100 mg 07/04/18 22:00 07/12/18 15:07 Colace - PO Not Given TID [facility] Duloxetine HCl 20 mg 07/12/18 10:00 07/12/18 09:03 Cymbalta - PO 20 mg DAILY [facility] Administration Ferrous Sulfate 325 mg 07/04/18 22:00 07/12/18 09:03 Feosol - PO 325 mg BID [facility] Administration Furosemide 40 mg 07/05/18 10:00 07/12/18 09:03 Lasix - PO 40 mg DAILY [facility] Administration Hydralazine HCl 100 mg 07/04/18 22:00 07/12/18 13:41 Apresoline - PO 100 mg TID [facility] Administration Insulin Aspart 1 vial 07/05/18 07:00 07/12/18 16:15 Novolog Vial Sliding Scale - SQ Not Given TIDAC [facility] Protocol Labetalol HCl 20 mg 07/04/18 16:55 07/06/18 16:47 Normodyne Injection - IVPUSH 20 mg Q4H PRN Administration HYPERTENSION Labetalol HCl 300 mg 07/06/18 16:15 07/12/18 09:02 Normodyne - PO 300 mg BID [facility] Administration Lisinopril 40 mg 07/05/18 10:00 07/12/18 09:03 Prinivil PO 40 mg DAILY [facility] Administration Nifedipine 60 mg 07/04/18 22:00 07/12/18 09:03 Procardia Xl - PO 60 mg BID [facility] Administration Oxycodone HCl 5 mg 07/09/18 13:31 07/12/18 13:41 Roxicodone - PO 5 mg Q4H PRN Administration PAIN LEVEL 6-10 Senna 1 tab 07/07/18 22:00 07/12/18 09:03 Senna - PO Not Given BID [facility] Sevelamer Carbonate 800 mg 07/04/18 17:30 07/12/18 12:04 Renvela - PO 800 mg TIDCM [facility] Administration Vancomycin HCl 125 mg 07/04/18 18:00 07/12/18 12:04 Vancomycin Oral Solution PO 125 mg Q6HPO [facility] Administration Impression 1. ESRD on HD 2. anemia 3. DM 4. HTN 5. toe infection/gangrene 6. PVD 7. 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 type 4 cavernous malformation Plan - pt tolerated HD yesterday - cont bp meds - monitor bp - next HD on Saturday - psych input appreciated - discussed care with his - epogen for anemia - cont iron supplements - avf 3:00 400 abf - renal diet
[2018-07-12] MEDS: ATORVASTATIN CA 80 MG TABLET (FP) PO SCH (22:30)
[2018-07-13] MEDS: VANCOMYCIN 250 MG/5 ML ORAL SOLUTION PO SCH ×4 (00:15→17:19)
[2018-07-13] MEDS: DOCUSATE SODIUM 100 MG CAPSULE (FP) PO SCH ×3 (06:40→21:16)
[2018-07-13] MEDS: hydrALAZINE HCL 50 MG TABLET (FP) PO SCH ×3 (06:44→21:16)
[2018-07-13] MEDS: INSULIN SLIDING SCALE (NOVOLOG) 1 VIAL SQ SCH ×3 (06:45→17:18)
--- NOTE | 2018-07-13 07:40 | PN ---
Physical Exam: SUBJECTIVE: Patient seen and examined at bedside. No overnight events. No new complaints. Denies CP,GARNER, SOB, abdominal pain, nausea or vomiting. OBJECTIVE: Vital Signs Period Temp Pulse Resp BP Sys/Cole Pulse Ox Last 24 Hr 97.4 F-98.4 F 54-87 18-20 127-153/50-59 95-95 GGENERAL: A&Ox3, NAD, lying in bed comfortably HEAD: NCAT EYES: L eye non-reactive s/p cataract surgery. R eye wnl. EOMI. ENT: Oropharynx clear without exudates, MMM NECK: supple, No JVD LUNGS: Breath sounds equal, clear to auscultation bilaterally, no wheezes HEART: Regular rate and rhythm, S1, S2, Systolic murmur at the LLSB ABDOMEN: Soft, nontender, nondistended, normoactive bowel sounds, no guarding EXTREMITIES: 2+ pulses, no RLE edema. Dried, clean and intact LLE external dressing over stump. Wound closed and intact with fernando in place, Continues to heal, No active drainage or discharge, no surrounding erythema. Tenderness to palpation at staple site described as sharp, 10/10 without radiation. No tenderness at rest. Gross lower extremity sensation intact b/l NEUROLOGICAL: Cranial nerves II through XII grossly intact. Normal speech. Laboratory Results - last 24 hr 07/12/18 07/12/18 07/13/18 11:22 16:12 06:43 POC Glucometer 161 122 140 Active Medications Generic Name Dose Route Start Last Admin Trade Name Freq PRN Reason Stop Dose Admin Acetaminophen 650 mg 07/04/18 16:55 07/09/18 23:20 Tylenol - PO 650 mg Q6H PRN Administration PAIN 1-3 Acetaminophen 325 mg 07/04/18 16:55 07/09/18 04:38 Tylenol - PO 325 mg Q4H PRN Administration PAIN LEVEL 4 - 6 Atorvastatin Calcium 80 mg 07/04/18 22:00 07/12/18 22:30 Lipitor - PO 80 mg HS [facility] Administration Calcitriol 0.25 mcg 07/05/18 10:00 07/12/18 09:03 Rocaltrol - PO 0.25 mcg DAILY [facility] Administration Docusate Sodium 100 mg 07/04/18 22:00 07/13/18 06:40 Colace - PO Not Given TID [facility] Duloxetine HCl 20 mg 07/12/18 10:00 07/12/18 09:03 Cymbalta - PO 20 mg DAILY [facility] Administration Ferrous Sulfate 325 mg 07/04/18 22:00 07/12/18 22:30 Feosol - PO 325 mg BID [facility] Administration Furosemide 40 mg 07/05/18 10:00 07/12/18 09:03 Lasix - PO 40 mg DAILY [facility] Administration Hydralazine HCl 100 mg 07/04/18 22:00 07/13/18 06:44 Apresoline - PO 100 mg TID [facility] Administration Insulin Aspart 1 vial 07/05/18 07:00 07/13/18 06:45 Novolog Vial Sliding Scale - SQ Not Given TIDAC [facility] Protocol Labetalol HCl 20 mg 07/04/18 16:55 07/06/18 16:47 Normodyne Injection - IVPUSH 20 mg Q4H PRN Administration HYPERTENSION Labetalol HCl 300 mg 07/06/18 16:15 07/12/18 22:29 Normodyne - PO Not Given BID [facility] Lisinopril 40 mg 07/05/18 10:00 07/12/18 09:03 Prinivil PO 40 mg DAILY [facility] Administration Nifedipine 60 mg 07/04/18 22:00 07/12/18 22:32 Procardia Xl - PO 60 mg BID [facility] Administration Oxycodone HCl 5 mg 07/09/18 13:31 07/12/18 13:41 Roxicodone - PO 5 mg Q4H PRN Administration PAIN LEVEL 6-10 Senna 1 tab 07/07/18 22:00 07/12/18 22:26 Senna - PO Not Given BID [facility] Sevelamer Carbonate 800 mg 07/04/18 17:30 07/12/18 17:25 Renvela - PO 800 mg TIDCM [facility] Administration Vancomycin HCl 125 mg 07/04/18 18:00 07/13/18 06:45 Vancomycin Oral Solution PO 125 mg Q6HPO [facility] Administration ASSESSMENT/PLAN: 68 y/o M w/ PMHx CAD, [place], PVD, ESRD on HD (MWF), HTN, admitted for gangrene/ osteomyelitis of the left foot s/p BKA. Problem List - Problems (1) Gangrene of toe of left foot Assessment/Plan: S/P BKA POD#9 (07/04) * Vascular surgery consulted, appreciate rec's, Continue daily dressing changes with clean dry dressing * completed Zosyn course (06/11-06/26)and Levaquin course (06/27-07/07) * Pain control via Oxycodone * Surgical pathology pending * Continue incentive spirometer * Awaiting placement for SNF. (2) ESRD (end stage renal disease) Assessment/Plan: dailysis MWF * Will go tomorrow for dialysis. (3) Diabetes Assessment/Plan: * ADA/sodium diet * BGM ACHS * ISS ACHS (4) Diastolic CHF Assessment/Plan: * Continue Lasix, CLAY and Statin. (5) Hypertension Assessment/Plan: * Hydralazine HCl (Apresoline -) 100 mg PO TID * Labetalol HCl (Normodyne Injection -) 20 mg IVPUSH Q4H PRN * labetalol HCl (Normodyne -) 300 mg PO BID [facility] * Lisinopril (Prinivil) 40 mg PO DAILY [facility] * Nifedipine (Procardia Xl -) 60 mg PO BID [facility] Visit type - Emergency Visit Emergency Visit: Yes ED Registration Date: 06/05/18 Care time: The patient presented to the Emergency Department on the above date and was hospitalized for further evaluation of their emergent condition. - New Patient This patient is new to me today: Yes Date on this admission: 07/13/18 - Critical Care Critical Care patient: No
[2018-07-13] MEDS ORDERED: PT OWN MED DRAWER 7, Y5N ONE (08:55)
[2018-07-13] MEDS: LABETALOL HCL 100 MG TABLET (FP) PO SCH ×2 (09:04→21:16)
[2018-07-13] MEDS: CALCITRIOL 0.25 MCG CAPSULE (FP) PO SCH (09:04)
[2018-07-13] MEDS: LISINOPRIL 20 MG TABLET (FP) PO SCH (09:05)
[2018-07-13] MEDS: FERROUS SO4 325 MG TABLET (FP) PO SCH ×2 (09:05→21:16)
[2018-07-13] MEDS: DULoxetine HCL 20 MG CAPSULE.DR (FP) PO SCH (09:05)
[2018-07-13] MEDS: NIFEdipine E.R 60 MG TABLET (UD) PO SCH ×2 (09:06→21:17)
[2018-07-13] MEDS: SENNOSIDES 8.6MG TABLET (FP) PO SCH ×2 (09:06→21:17)
[2018-07-13] MEDS: FUROSEMIDE 40 MG TABLET (FP) PO SCH (09:06)
[2018-07-13] MEDS: SEVELAMER CARBONATE 800 MG TAB (FP) PO SCH ×3 (09:06→17:19)
[2018-07-13 09:30] LABS: BASO % 0.7 % (0-2.0); EOS % 0.9 % (0-4.5); HEMATOCRIT 25.7 % (35.4-49); HEMOGLOBIN 8.4 GM/dL (11.7-16.9); LYMPH % 14.4 % (8-40); MCH 29.1 pg (25.7-33.7); MCHC 32.7 g/dl (32.0-35.9); MEAN CELL VOLUME 89.1 fl (80-96); MEAN PLT VOLUME 8.8 fl (7.5-11.1); MONO % 8.9 % (3.8-10.2); NEUT % 75.1 % (42.8-82.8); PLATELET COUNT 262 K/MM3 (134-434); RBC 2.89 M/mm3 (4.00-5.60); RDW 18.2 % (11.9-15.9); WHITE BLOOD COUNT 9.8 K/mm3 (4.0-10.0)
[2018-07-13 10:24] LABS: ANION GAP 11 MMOL/L (8-16); BLOOD UREA NITROGEN 34 mg/dL (7-18); CALCIUM 9.6 mg/dL (8.5-10.1); CHLORIDE 98 mmol/L (98-107); CO2 30 mmol/L (21-32); CREATININE 5.4 mg/dL (0.55-1.3); GLUCOSE,RANDOM 129 mg/dL (74-106); SODIUM 140 mmol/L (136-145)
--- NOTE | 2018-07-13 16:30 | PN ---
Progress Note, Physician History of Present Illness: Pt seen and examined at bedside. He is awake and alert. He denies shortness of breath. - Current Medication List Current Medications: Active Medications Acetaminophen (Tylenol -) 650 mg PO Q6H PRN PRN Reason: PAIN 1-3 Last Admin: 07/09/18 23:20 Dose: 650 mg Acetaminophen (Tylenol -) 325 mg PO Q4H PRN PRN Reason: PAIN LEVEL 4 - 6 Last Admin: 07/09/18 04:38 Dose: 325 mg Atorvastatin Calcium (Lipitor -) 80 mg PO HS [facility] Last Admin: 07/12/18 22:30 Dose: 80 mg Calcitriol (Rocaltrol -) 0.25 mcg PO DAILY [facility] Last Admin: 07/13/18 09:04 Dose: 0.25 mcg Docusate Sodium (Colace -) 100 mg PO TID [facility] Last Admin: 07/13/18 13:50 Dose: Not Given Duloxetine HCl (Cymbalta -) 20 mg PO DAILY [facility] Last Admin: 07/13/18 09:05 Dose: 20 mg Ferrous Sulfate (Feosol -) 325 mg PO BID [facility] Last Admin: 07/13/18 09:05 Dose: 325 mg Furosemide (Lasix -) 40 mg PO DAILY [facility] Last Admin: 07/13/18 09:06 Dose: 40 mg Hydralazine HCl (Apresoline -) 100 mg PO TID [facility] Last Admin: 07/13/18 13:52 Dose: 100 mg Insulin Aspart (Novolog Vial Sliding Scale -) 1 vial SQ TIDAC [facility]; Protocol Last Admin: 07/13/18 12:04 Dose: Not Given Labetalol HCl (Normodyne Injection -) 20 mg IVPUSH Q4H PRN PRN Reason: HYPERTENSION Last Admin: 07/06/18 16:47 Dose: 20 mg Labetalol HCl (Normodyne -) 300 mg PO BID [facility] Last Admin: 07/13/18 09:04 Dose: 300 mg Lisinopril (Prinivil) 40 mg PO DAILY [facility] Last Admin: 07/13/18 09:05 Dose: 40 mg Nifedipine (Procardia Xl -) 60 mg PO BID [facility] Last Admin: 07/13/18 09:06 Dose: 60 mg Oxycodone HCl (Roxicodone -) 5 mg PO Q4H PRN PRN Reason: PAIN LEVEL 6-10 Last Admin: 07/12/18 13:41 Dose: 5 mg Senna (Senna -) 1 tab PO BID [facility] Last Admin: 07/13/18 09:06 Dose: Not Given Sevelamer Carbonate (Renvela -) 800 mg PO TIDCM [facility] Last Admin: 07/13/18 12:36 Dose: 800 mg Vancomycin HCl (Vancomycin Oral Solution) 125 mg PO Q6HPO [facility] Last Admin: 07/13/18 12:36 Dose: 125 mg - Objective Vital Signs: Vital Signs Temperature 97.9 F 07/13/18 14:45 Pulse Rate 53 L 07/13/18 14:45 Respiratory Rate 18 07/13/18 14:45 Blood Pressure 137/59 L 07/13/18 14:45 O2 Sat by Pulse Oximetry (%) 93 L 07/13/18 09:00 Constitutional: Yes: Calm Eyes: Yes: Conjunctiva Clear HENT: Yes: Atraumatic Neck: Yes: Supple Cardiovascular: Yes: S1, S2 Respiratory: Yes: CTA Bilaterally Gastrointestinal: Yes: Soft Genitourinary: Yes: WNL Extremities: Yes: Other (left bka) Neurological: Yes: Oriented Psychiatric: Yes: Oriented Labs: CBC, BMP 07/13/18 09:05 07/13/18 09:05 INR, PTT INR 1.18 (0.83-1.09) H 07/04/18 05:30 Problem List - Problems (1) ESRD (end stage renal disease) Code(s): N18.6 - END STAGE RENAL DISEASE (2) Gangrene Code(s): I96 - GANGRENE, NOT ELSEWHERE CLASSIFIED (3) PAD (peripheral artery disease) Code(s): I73.9 - PERIPHERAL VASCULAR DISEASE, UNSPECIFIED Assessment/Plan Current Medications Generic Name Dose Route Start Last Admin Trade Name Freq PRN Reason Stop Dose Admin Acetaminophen 650 mg 07/04/18 16:55 07/09/18 23:20 Tylenol - PO 650 mg Q6H PRN Administration PAIN 1-3 Acetaminophen 325 mg 07/04/18 16:55 07/09/18 04:38 Tylenol - PO 325 mg Q4H PRN Administration PAIN LEVEL 4 - 6 Atorvastatin Calcium 80 mg 07/04/18 22:00 07/12/18 22:30 Lipitor - PO 80 mg HS [facility] Administration Calcitriol 0.25 mcg 07/05/18 10:00 07/13/18 09:04 Rocaltrol - PO 0.25 mcg DAILY [facility] Administration Docusate Sodium 100 mg 07/04/18 22:00 07/13/18 13:50 Colace - PO Not Given TID [facility] Duloxetine HCl 20 mg 07/12/18 10:00 07/13/18 09:05 Cymbalta - PO 20 mg DAILY [facility] Administration Ferrous Sulfate 325 mg 07/04/18 22:00 07/13/18 09:05 Feosol - PO 325 mg BID [facility] Administration Furosemide 40 mg 07/05/18 10:00 07/13/18 09:06 Lasix - PO 40 mg DAILY [facility] Administration Hydralazine HCl 100 mg 07/04/18 22:00 07/13/18 13:52 Apresoline - PO 100 mg TID [facility] Administration Insulin Aspart 1 vial 07/05/18 07:00 07/13/18 12:04 Novolog Vial Sliding Scale - SQ Not Given TIDAC [facility] Protocol Labetalol HCl 20 mg 07/04/18 16:55 07/06/18 16:47 Normodyne Injection - IVPUSH 20 mg Q4H PRN Administration HYPERTENSION Labetalol HCl 300 mg 07/06/18 16:15 07/13/18 09:04 Normodyne - PO 300 mg BID [facility] Administration Lisinopril 40 mg 07/05/18 10:00 07/13/18 09:05 Prinivil PO 40 mg DAILY [facility] Administration Nifedipine 60 mg 07/04/18 22:00 07/13/18 09:06 Procardia Xl - PO 60 mg BID [facility] Administration Oxycodone HCl 5 mg 07/09/18 13:31 07/12/18 13:41 Roxicodone - PO 5 mg Q4H PRN Administration PAIN LEVEL 6-10 Senna 1 tab 07/07/18 22:00 07/13/18 09:06 Senna - PO Not Given BID [facility] Sevelamer Carbonate 800 mg 07/04/18 17:30 07/13/18 12:36 Renvela - PO 800 mg TIDCM [facility] Administration Vancomycin HCl 125 mg 07/04/18 18:00 07/13/18 12:36 Vancomycin Oral Solution PO 125 mg Q6HPO [facility] Administration Impression 1. ESRD on HD 2. anemia 3. DM 4. HTN 5. toe infection/gangrene 6. PVD 7. 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 type 4 cavernous malformation Plan - HD in am - epogen for anemia - monitor bp - cont iron supplements - avf 3:00 400 abf - renal diet
--- NOTE | 2018-07-13 18:54 | PN ---
Teaching Attending Note Name of Resident: Carl Baker ATTENDING PHYSICIAN STATEMENT I saw and evaluated the patient. I reviewed the resident's note and discussed the case with the resident. I agree with the resident's findings and plan as documented. SUBJECTIVE: Patient is doing better with no acute distress. OBJECTIVE: Vital Signs Temperature 97.9 F 07/13/18 14:45 Pulse Rate 53 L 07/13/18 14:45 Respiratory Rate 18 07/13/18 14:45 Blood Pressure 137/59 L 07/13/18 14:45 O2 Sat by Pulse Oximetry (%) 93 L 07/13/18 09:00 GENERAL: The patient is awake, alert, and fully oriented, in no acute distress. HEAD: NCAT; EYES: PERRL, EOMI ENT: oropharynx clear without exudates, MMM NECK: supple, No JVD LUNGS: Breath sounds equal, clear to auscultation bilaterally, no wheezes HEART: Regular rate and rhythm, S1, S2, Systolic murmur at the LLSB ABDOMEN: Soft, nontender, nondistended, normoactive bowel sounds, no guarding EXTREMITIES: 2+ pulses, no edema. s/p amputation of left 3 and 4 toes, s/p left BKA NEUROLOGICAL: Cranial nerves II through XII grossly intact. Normal speech CBCD WBC 9.8 K/mm3 (4.0-10.0) 07/13/18 09:05 RBC 2.89 M/mm3 (4.00-5.60) L 07/13/18 09:05 Hgb 8.4 GM/dL (11.7-16.9) L 07/13/18 09:05 Hct 25.7 % (35.4-49) L 07/13/18 09:05 MCV 89.1 fl (80-96) 07/13/18 09:05 MCHC 32.7 g/dl (32.0-35.9) 07/13/18 09:05 RDW 18.2 % (11.9-15.9) H 07/13/18 09:05 Plt Count 262 K/MM3 (134-434) D 07/13/18 09:05 MPV 8.8 fl (7.5-11.1) 07/13/18 09:05 CMP Sodium 140 mmol/L (136-145) 07/13/18 09:05 Potassium 4.0 mmol/L (3.5-5.1) 07/13/18 09:05 Chloride 98 mmol/L (98-107) 07/13/18 09:05 Carbon Dioxide 30 mmol/L (21-32) 07/13/18 09:05 Anion Gap 11 MMOL/L (8-16) 07/13/18 09:05 BUN 34 mg/dL (7-18) H 07/13/18 09:05 Creatinine 5.4 mg/dL (0.55-1.3) H 07/13/18 09:05 Creat Clearance w eGFR 10.55 (>60) 07/13/18 09:05 Random Glucose 129 mg/dL (74-106) H 07/13/18 09:05 Calcium 9.6 mg/dL (8.5-10.1) 07/13/18 09:05 Total Bilirubin 0.8 mg/dL (0.2-1) 07/07/18 11:37 AST 94 U/L (15-37) H 07/07/18 11:37 ALT 10 U/L (13-61) L 07/07/18 11:37 Alkaline Phosphatase 355 U/L (45-117) H 07/07/18 11:37 Total Protein 7.0 g/dl (6.4-8.2) 07/07/18 11:37 Albumin 1.9 g/dl (3.4-5.0) L 07/07/18 11:37 Current Medications Generic Name Dose Route Start Last Admin Trade Name Freq PRN Reason Stop Dose Admin Acetaminophen 650 mg 07/04/18 16:55 07/09/18 23:20 Tylenol - PO 650 mg Q6H PRN Administration PAIN 1-3 Acetaminophen 325 mg 07/04/18 16:55 07/09/18 04:38 Tylenol - PO 325 mg Q4H PRN Administration PAIN LEVEL 4 - 6 Atorvastatin Calcium 80 mg 07/04/18 22:00 07/12/18 22:30 Lipitor - PO 80 mg HS [facility] Administration Calcitriol 0.25 mcg 07/05/18 10:00 07/13/18 09:04 Rocaltrol - PO 0.25 mcg DAILY [facility] Administration Docusate Sodium 100 mg 07/04/18 22:00 07/13/18 13:50 Colace - PO Not Given TID [facility] Duloxetine HCl 20 mg 07/12/18 10:00 07/13/18 09:05 Cymbalta - PO 20 mg DAILY [facility] Administration Epoetin Thomas 12,000 unit 07/14/18 16:30 Epogen - IVPUSH 07/14/18 16:31 ONCE ONE Ferrous Sulfate 325 mg 07/04/18 22:00 07/13/18 09:05 Feosol - PO 325 mg BID [facility] Administration Furosemide 40 mg 07/05/18 10:00 07/13/18 09:06 Lasix - PO 40 mg DAILY [facility] Administration Hydralazine HCl 100 mg 07/04/18 22:00 07/13/18 13:52 Apresoline - PO 100 mg TID [facility] Administration Sodium Chloride 250 mls @ 3,000 mls/hr 07/13/18 16:30 Normal Saline - IV 07/14/18 16:30 PRN PRN Hypotension during Dialysis Insulin Aspart 1 vial 07/05/18 07:00 07/13/18 17:18 Novolog Vial Sliding Scale - SQ Not Given TIDAC [facility] Protocol Labetalol HCl 20 mg 07/04/18 16:55 07/06/18 16:47 Normodyne Injection - IVPUSH 20 mg Q4H PRN Administration HYPERTENSION Labetalol HCl 300 mg 07/06/18 16:15 07/13/18 09:04 Normodyne - PO 300 mg BID [facility] Administration Lisinopril 40 mg 07/05/18 10:00 07/13/18 09:05 Prinivil PO 40 mg DAILY [facility] Administration Nifedipine 60 mg 07/04/18 22:00 07/13/18 09:06 Procardia Xl - PO 60 mg BID [facility] Administration Oxycodone HCl 5 mg 07/09/18 13:31 07/12/18 13:41 Roxicodone - PO 5 mg Q4H PRN Administration PAIN LEVEL 6-10 Senna 1 tab 07/07/18 22:00 07/13/18 09:06 Senna - PO Not Given BID [facility] Sevelamer Carbonate 800 mg 07/04/18 17:30 07/13/18 17:19 Renvela - PO 800 mg TIDCM [facility] Administration Vancomycin HCl 125 mg 07/04/18 18:00 07/13/18 17:19 Vancomycin Oral Solution PO 125 mg Q6HPO [facility] Administration Home Medications Medication Instructions Recorded Sevelamer HCl [Renagel] 800 mg PO TIDCM 05/16/18 Calcitriol [Calcitriol -] 0.25 mcg PO DAILY #30 capsule 05/27/18 Furosemide [Lasix -] 40 mg PO DAILY #30 tablet 05/27/18 Hydralazine HCl 100 mg PO TID #90 tablet 05/27/18 Nifedipine ER [Procardia XL -] 60 mg PO BID #60 tab.er.24 05/27/18 Acetaminophen [Tylenol] 650 mg PO QID PRN 06/05/18 Atorvastatin Ca [Lipitor] 80 mg PO HS #30 tablet 07/09/18 Docusate Sodium [Colace -] 100 mg PO TID #90 capsule 07/09/18 Ferrous Sulfate [Feosol] 325 mg PO BID #60 ud 07/09/18 Labetalol HCl [Normodyne -] 300 mg PO BID #180 tablet 07/09/18 Lisinopril [Prinivil] 40 mg PO DAILY #60 tablet 07/09/18 Sennosides [Senna -] 1 tab PO BID #60 tablet 07/09/18 Vancomycin Oral Solution 125 mg PO Q6HPO #20 ml 07/09/18 ASSESSMENT AND PLAN: Patient is a 68y/o man with h/o CAD, recent [place], PVD, ESRD on HD, HTN, HLP, Hep B , DM, and recent admission for L 4th toe gangrene and OM, s/p angiogram, atherectomy and angioplasty, who presented with increased pain in foot and change in L 3rd toe color. He was found to have a gangrenous 3rd and 4th toes # POD 9 s/p left BKA 07/04, s/p Left 3rd/4th toe gangrene with osteomyelitis,S/ P revision tma (Left toes 2-4) and amputation 1st ray left foot (06/24); s/p L TMA sparing great toe (06/11/18). # Acute Depression: on Cymbalta now as per #Acute/subacute 7 mm left thalamic intraparenchymal haemorrhage, due to having uncontrolled HTN rather than traumatic, incidental findings as per neuro. #Anemia of chronic disease s/p 3 u PRBC pre-op, on Procrit continue # HTN Uncontrolled continue meds. in the setting of intermittent refusal to take his medications. #C dif with (Ag positive, toxin neg but patient with diarrhea), On oral Vancomycin continue, on contact isolation #ESRD on HD, nephro on the case. On procrit. on the case DVT PX: SCDS on the right.
[2018-07-13] MEDS: ATORVASTATIN CA 80 MG TABLET (FP) PO SCH (21:16)
[2018-07-14] MEDS: VANCOMYCIN 250 MG/5 ML ORAL SOLUTION PO SCH ×3 (01:53→12:14)
[2018-07-14] MEDS: DOCUSATE SODIUM 100 MG CAPSULE (FP) PO SCH ×2 (06:01→14:25)
[2018-07-14] MEDS: hydrALAZINE HCL 50 MG TABLET (FP) PO SCH ×2 (06:01→14:28)
[2018-07-14] MEDS: INSULIN SLIDING SCALE (NOVOLOG) 1 VIAL SQ SCH ×2 (06:16→12:13)
[2018-07-14] MEDS ORDERED: SODIUM CHLORIDE 250 ML IV PRN (06:31)
[2018-07-14 07:58] LABS: HEMATOCRIT 25.7 % (35.4-49); HEMOGLOBIN 8.3 GM/dL (11.7-16.9); MCH 29.1 pg (25.7-33.7); MCHC 32.4 g/dl (32.0-35.9); MEAN CELL VOLUME 89.8 fl (80-96); MEAN PLT VOLUME 8.8 fl (7.5-11.1); PLATELET COUNT 253 K/MM3 (134-434); RBC 2.86 M/mm3 (4.00-5.60); RDW 18.1 % (11.9-15.9); WHITE BLOOD COUNT 9.2 K/mm3 (4.0-10.0)
[2018-07-14 08:22] LABS: ANION GAP 5 MMOL/L (8-16); BLOOD UREA NITROGEN 42 mg/dL (7-18); CHLORIDE 98 mmol/L (98-107); CO2 31 mmol/L (21-32); CREATININE 6.4 mg/dL (0.55-1.3); GLUCOSE,RANDOM 114 mg/dL (74-106); POTASSIUM 4.2 mmol/L (3.5-5.1); SODIUM 134 mmol/L (136-145)
[2018-07-14] MEDS: SEVELAMER CARBONATE 800 MG TAB (FP) PO SCH ×2 (09:20→12:14)
[2018-07-14] MEDS: DULoxetine HCL 20 MG CAPSULE.DR (FP) PO SCH (09:20)
[2018-07-14] MEDS: FUROSEMIDE 40 MG TABLET (FP) PO SCH (09:20)
[2018-07-14] MEDS: FERROUS SO4 325 MG TABLET (FP) PO SCH (09:20)
[2018-07-14] MEDS: LABETALOL HCL 100 MG TABLET (FP) PO SCH (09:20)
[2018-07-14] MEDS: LISINOPRIL 20 MG TABLET (FP) PO SCH (09:20)
[2018-07-14] MEDS: NIFEdipine E.R 60 MG TABLET (UD) PO SCH (09:21)
[2018-07-14 10:22] VITALS: PULSE 60
[2018-07-14] MEDS: SENNOSIDES 8.6MG TABLET (FP) PO SCH (10:41)
[2018-07-14] MEDS ORDERED: EPOETIN ALFA 10,000 UNIT, EPOETIN ALFA 2,000 UNIT IVPUSH ONE (11:00)
[2018-07-14] MEDS: CALCITRIOL 0.25 MCG CAPSULE (FP) PO SCH (11:01)
[2018-07-14 11:09] LABS: CREATININE 2.2 mg/dL (0.55-1.3)
--- NOTE | 2018-07-14 13:45 | PN ---
Teaching Attending Note Name of Resident: Linda Agrawal ATTENDING PHYSICIAN STATEMENT I saw and evaluated the patient. I reviewed the resident's note and discussed the case with the resident. I agree with the resident's findings and plan as documented. SUBJECTIVE: Patient is better , feels better, translation is done by the medical student who speaks fluent yi. Patient wants to go home. OBJECTIVE: Vital Signs Temperature 97.8 F 07/14/18 10:00 Pulse Rate 60 07/14/18 10:05 Respiratory Rate 18 07/14/18 10:05 Blood Pressure 155/72 07/14/18 10:05 O2 Sat by Pulse Oximetry (%) 94 L 07/14/18 09:00 GENERAL: The patient is awake, alert, and fully oriented, in no acute distress. HEAD: NCAT; EYES: PERRL, EOMI ,NECK: supple, No JVD ENT: oropharynx clear without exudates, MMM LUNGS: Breath sounds equal, clear to auscultation bilaterally, no wheezes HEART: Regular rate and rhythm, S1, S2, Systolic murmur at the LLSB ABDOMEN: Soft, nontender, nondistended, normoactive bowel sounds, no guarding EXTREMITIES: 2+ pulses, no edema. s/p amputation of left 3 and 4 toes, s/p left BKA. NEUROLOGICAL: Cranial nerves II through XII grossly intact. Normal speech CBCD WBC 9.2 K/mm3 (4.0-10.0) 07/14/18 07:00 RBC 2.86 M/mm3 (4.00-5.60) L 07/14/18 07:00 Hgb 8.3 GM/dL (11.7-16.9) L 07/14/18 07:00 Hct 25.7 % (35.4-49) L 07/14/18 07:00 MCV 89.8 fl (80-96) 07/14/18 07:00 MCHC 32.4 g/dl (32.0-35.9) 07/14/18 07:00 RDW 18.1 % (11.9-15.9) H 07/14/18 07:00 Plt Count 253 K/MM3 (134-434) 07/14/18 07:00 MPV 8.8 fl (7.5-11.1) 07/14/18 07:00 CMP Sodium 134 mmol/L (136-145) L 07/14/18 07:00 Potassium 4.2 mmol/L (3.5-5.1) 07/14/18 07:00 Chloride 98 mmol/L (98-107) 07/14/18 07:00 Carbon Dioxide 31 mmol/L (21-32) 07/14/18 07:00 Anion Gap 5 MMOL/L (8-16) L 07/14/18 07:00 BUN 12 mg/dL (7-18) 07/14/18 10:10 Creatinine 2.2 mg/dL (0.55-1.3) H 07/14/18 10:10 Creat Clearance w eGFR 8.67 (>60) 07/14/18 07:00 Random Glucose 114 mg/dL (74-106) H 07/14/18 07:00 Calcium 10.0 mg/dL (8.5-10.1) 07/14/18 07:00 Total Bilirubin 0.8 mg/dL (0.2-1) 07/07/18 11:37 AST 94 U/L (15-37) H 07/07/18 11:37 ALT 10 U/L (13-61) L 07/07/18 11:37 Alkaline Phosphatase 355 U/L (45-117) H 07/07/18 11:37 Total Protein 7.0 g/dl (6.4-8.2) 07/07/18 11:37 Albumin 1.9 g/dl (3.4-5.0) L 07/07/18 11:37 Current Medications Generic Name Dose Route Start Last Admin Trade Name Westonq PRN Reason Stop Dose Admin Acetaminophen 650 mg 07/04/18 16:55 07/09/18 23:20 Tylenol - PO 650 mg Q6H PRN Administration PAIN 1-3 Acetaminophen 325 mg 07/04/18 16:55 07/09/18 04:38 Tylenol - PO 325 mg Q4H PRN Administration PAIN LEVEL 4 - 6 Atorvastatin Calcium 80 mg 07/04/18 22:00 07/13/18 21:16 Lipitor - PO 80 mg HS CHUCKY Administration Calcitriol 0.25 mcg 07/05/18 10:00 07/14/18 11:01 Rocaltrol - PO 0.25 mcg DAILY CHUCKY Administration Docusate Sodium 100 mg 07/04/18 22:00 07/14/18 06:01 Colace - PO 100 mg TID CHUCKY Administration Duloxetine HCl 20 mg 07/12/18 10:00 07/14/18 09:20 Cymbalta - PO 20 mg DAILY CHUCKY Administration Ferrous Sulfate 325 mg 07/04/18 22:00 07/14/18 09:20 Feosol - PO 325 mg BID CHUCKY Administration Furosemide 40 mg 07/05/18 10:00 07/14/18 09:20 Lasix - PO 40 mg DAILY CHUCKY Administration Hydralazine HCl 100 mg 07/04/18 22:00 07/14/18 06:01 Apresoline - PO 100 mg TID CHUCKY Administration Sodium Chloride 250 mls @ 3,000 mls/hr 07/14/18 06:31 Normal Saline - IV 07/15/18 06:30 PRN PRN Hypotension during Dialysis Insulin Aspart 1 vial 07/05/18 07:00 07/14/18 12:13 Novolog Vial Sliding Scale - SQ Not Given TIDAC [facility] Protocol Labetalol HCl 20 mg 07/04/18 16:55 07/06/18 16:47 Normodyne Injection - IVPUSH 20 mg Q4H PRN Administration HYPERTENSION Labetalol HCl 300 mg 07/06/18 16:15 07/14/18 09:20 Normodyne - PO 300 mg BID CHUCKY Administration Lisinopril 40 mg 07/05/18 10:00 07/14/18 09:20 Prinivil PO 40 mg DAILY CHUCKY Administration Nifedipine 60 mg 07/04/18 22:00 07/14/18 09:21 Procardia Xl - PO 60 mg BID CHUCKY Administration Senna 1 tab 07/07/18 22:00 07/14/18 10:41 Senna - PO Not Given BID CHUCKY Sevelamer Carbonate 800 mg 07/04/18 17:30 07/14/18 12:14 Renvela - PO 800 mg TIDCM CHUCKY Administration Vancomycin HCl 125 mg 07/04/18 18:00 07/14/18 12:14 Vancomycin Oral Solution PO 125 mg Q6HPO CHUCKY Administration Home Medications Medication Instructions Recorded Sevelamer HCl [Renagel] 800 mg PO TIDCM 05/16/18 Calcitriol [Calcitriol -] 0.25 mcg PO DAILY #30 capsule 05/27/18 Furosemide [Lasix -] 40 mg PO DAILY #30 tablet 05/27/18 Hydralazine HCl 100 mg PO TID #90 tablet 05/27/18 Nifedipine ER [Procardia XL -] 60 mg PO BID #60 tab.er.24 05/27/18 Acetaminophen [Tylenol] 650 mg PO QID PRN 06/05/18 Atorvastatin Ca [Lipitor] 80 mg PO HS #30 tablet 07/09/18 Docusate Sodium [Colace -] 100 mg PO TID #90 capsule 07/09/18 Ferrous Sulfate [Feosol] 325 mg PO BID #60 ud 07/09/18 Labetalol HCl [Normodyne -] 300 mg PO BID #180 tablet 07/09/18 Lisinopril [Prinivil] 40 mg PO DAILY #60 tablet 07/09/18 Sennosides [Senna -] 1 tab PO BID #60 tablet 07/09/18 ASSESSMENT AND PLAN: Patient is a 68 y/o man with h/o CAD, recent [place], PVD, ESRD on HD, HTN, HLP, Hep B , DM, and recent admission for L 4th toe gangrene and OM, s/p angiogram, atherectomy and angioplasty, who presented with increased pain in foot and change in L 3rd toe color. He was found to have a gangrenous 3rd and 4th toes # POD 10 s/p left BKA 07/04, s/p Left 3rd/4th toe gangrene with osteomyelitis,S /P revision tma (Left toes 2-4) and amputation 1st ray left foot (06/24); s/p L TMA sparing great toe (06/11/18). # Acute Depression: will discontinue Cymbalta since contraindicated with dialysis patients. follow up with the health and safety tech #Acute/subacute 7 mm left thalamic intraparenchymal haemorrhage As per neurologist : Mild left cerebral dysfunction, Small left Internal capsule bleed much more likely due to systolic hypertension then possible head trauma. Suggested repeat CT of the head for follow up, patient refused the repeat Head CT that was ordered today. #Diabetic Peripheral neuropathy. #Anemia of chronic disease s/p 3 u PRBC pre-op, on Procrit continue # HTN : at times the patient refused to take his BP meds in the hospital and refused care. Continue Bp meds #C dif with (Ag positive, toxin neg but patient with diarrhea), On oral Vancomycin completer the course. discharge patient home today.
[2018-07-14 15:00] VITALS: BP 128/58; TEMP 98.2
[2018-07-14] MEDS: ACETAMINOPHEN 325 MG TABLET (FP) PO PRN (15:48)
[2018-07-14] MEDS ORDERED: EPOETIN ALFA 2,000 UNIT/1 ML VIAL IVPUSH ONE (16:30)
--- NOTE | 2018-07-14 16:34 | PN ---
Progress Note, Physician History of Present Illness: Pt seen and examined at bedside. He is awake and alert. - Current Medication List Current Medications: Active Medications Acetaminophen (Tylenol -) 650 mg PO Q6H PRN PRN Reason: PAIN 1-3 Last Admin: 07/14/18 15:48 Dose: 650 mg Acetaminophen (Tylenol -) 325 mg PO Q4H PRN PRN Reason: PAIN LEVEL 4 - 6 Last Admin: 07/09/18 04:38 Dose: 325 mg Atorvastatin Calcium (Lipitor -) 80 mg PO HS [facility] Last Admin: 07/13/18 21:16 Dose: 80 mg Calcitriol (Rocaltrol -) 0.25 mcg PO DAILY [facility] Last Admin: 07/14/18 11:01 Dose: 0.25 mcg Docusate Sodium (Colace -) 100 mg PO TID [facility] Last Admin: 07/14/18 14:25 Dose: Not Given Duloxetine HCl (Cymbalta -) 20 mg PO DAILY [facility] Last Admin: 07/14/18 09:20 Dose: 20 mg Ferrous Sulfate (Feosol -) 325 mg PO BID [facility] Last Admin: 07/14/18 09:20 Dose: 325 mg Furosemide (Lasix -) 40 mg PO DAILY [facility] Last Admin: 07/14/18 09:20 Dose: 40 mg Hydralazine HCl (Apresoline -) 100 mg PO TID [facility] Last Admin: 07/14/18 14:28 Dose: 100 mg Sodium Chloride (Normal Saline -) 250 mls @ 3,000 mls/hr IV PRN PRN PRN Reason: Hypotension during Dialysis Stop: 07/15/18 06:30 Insulin Aspart (Novolog Vial Sliding Scale -) 1 vial SQ TIDAC [facility]; Protocol Last Admin: 07/14/18 12:13 Dose: Not Given Labetalol HCl (Normodyne Injection -) 20 mg IVPUSH Q4H PRN PRN Reason: HYPERTENSION Last Admin: 07/06/18 16:47 Dose: 20 mg Labetalol HCl (Normodyne -) 300 mg PO BID [facility] Last Admin: 07/14/18 09:20 Dose: 300 mg Lisinopril (Prinivil) 40 mg PO DAILY [facility] Last Admin: 07/14/18 09:20 Dose: 40 mg Nifedipine (Procardia Xl -) 60 mg PO BID [facility] Last Admin: 07/14/18 09:21 Dose: 60 mg Senna (Senna -) 1 tab PO BID [facility] Last Admin: 07/14/18 10:41 Dose: Not Given Sevelamer Carbonate (Renvela -) 800 mg PO TIDCM [facility] Last Admin: 07/14/18 12:14 Dose: 800 mg Vancomycin HCl (Vancomycin Oral Solution) 125 mg PO Q6HPO [facility] Last Admin: 07/14/18 12:14 Dose: 125 mg - Objective Vital Signs: Vital Signs Temperature 98.2 F 07/14/18 14:00 Pulse Rate 60 07/14/18 14:00 Respiratory Rate 18 07/14/18 14:00 Blood Pressure 128/58 L 07/14/18 14:00 O2 Sat by Pulse Oximetry (%) 94 L 07/14/18 09:00 Constitutional: Yes: Calm Eyes: Yes: Conjunctiva Clear HENT: Yes: Atraumatic Cardiovascular: Yes: S1, S2 Respiratory: Yes: CTA Bilaterally Gastrointestinal: Yes: Soft Genitourinary: Yes: WNL Extremities: Yes: Other (left bka) Edema: No Neurological: Yes: Oriented Psychiatric: Yes: Oriented Labs: CBC, BMP 07/14/18 07:00 07/14/18 10:10 INR, PTT INR 1.18 (0.83-1.09) H 07/04/18 05:30 Problem List - Problems (1) ESRD (end stage renal disease) Code(s): N18.6 - END STAGE RENAL DISEASE (2) Gangrene Code(s): I96 - GANGRENE, NOT ELSEWHERE CLASSIFIED (3) PAD (peripheral artery disease) Code(s): I73.9 - PERIPHERAL VASCULAR DISEASE, UNSPECIFIED Assessment/Plan Impression 1. ESRD on HD 2. anemia 3. DM 4. HTN 5. toe infection/gangrene 6. PVD 7. 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 type 4 cavernous malformation Plan - pt tolerated HD today - epogen for anemia - monitor bp - cont iron supplements - avf 3:00 400 abf - renal diet
--- NOTE | 2018-07-14 16:43 | DS ---
Physical Exam: SUBJECTIVE: Patient seen and examined this moring at bedside. No new complaints. No acute overnight events as per nursing. OBJECTIVE: Vital Signs Period Temp Pulse Resp BP Sys/Cole Pulse Ox Last 24 Hr 97.4 F-98.5 F 54-64 18-18 128-185/48-82 94-94 PHYSICAL EXAM GENERAL: A&Ox3, NAD, lying in bed comfortably HEAD: NCAT EYES: L eye non-reactive s/p cataract surgery. R eye wnl. EOMI. ENT: Oropharynx clear without exudates, MMM NECK: supple, No JVD LUNGS: Breath sounds equal, clear to auscultation bilaterally, no wheezes HEART: Regular rate and rhythm, S1, S2, Systolic murmur at the LLSB ABDOMEN: Soft, nontender, nondistended, normoactive bowel sounds, no guarding EXTREMITIES: 2+ pulses, no RLE edema. Dried, clean and intact LLE external dressing over stump. Wound closed and intact with fernando in place, Continues to heal, No active drainage or discharge, no surrounding erythema. Tenderness to palpation at staple site described as sharp, 10/10 without radiation. No tenderness at rest. Gross lower extremity sensation intact b/l NEUROLOGICAL: Cranial nerves II through XII grossly intact. Normal speech. LABS Laboratory Last Values WBC 9.2 K/mm3 (4.0-10.0) 07/14/18 07:00 RBC 2.86 M/mm3 (4.00-5.60) L 07/14/18 07:00 Hgb 8.3 GM/dL (11.7-16.9) L 07/14/18 07:00 Hct 25.7 % (35.4-49) L 07/14/18 07:00 MCV 89.8 fl (80-96) 07/14/18 07:00 MCH 29.1 pg (25.7-33.7) 07/14/18 07:00 MCHC 32.4 g/dl (32.0-35.9) 07/14/18 07:00 RDW 18.1 % (11.9-15.9) H 07/14/18 07:00 Plt Count 253 K/MM3 (134-434) 07/14/18 07:00 MPV 8.8 fl (7.5-11.1) 07/14/18 07:00 Absolute Neuts (auto) 7.3 K/mm3 (1.5-8.0) 07/13/18 09:05 Total Counted 100 06/27/18 09:15 Neutrophils % 75.1 % (42.8-82.8) 07/13/18 09:05 Neutrophils % (Manual) 84.9 % (42.8-82.8) H 06/28/18 07:30 Band Neutrophils % 0.0 % 06/28/18 07:30 Lymphocytes % 14.4 % (8-40) D 07/13/18 09:05 Lymphocytes % (Manual) 3.0 % (8-40) L D 06/28/18 07:30 Monocytes % 8.9 % (3.8-10.2) 07/13/18 09:05 Monocytes % (Manual) 10 % (3.8-10.2) D 06/28/18 07:30 Eosinophils % 0.9 % (0-4.5) 07/13/18 09:05 Eosinophils % (Manual) 0.0 % (0-4.5) 06/28/18 07:30 Basophils % 0.7 % (0-2.0) 07/13/18 09:05 Basophils % (Manual) 0.0 % (0-2.0) 06/28/18 07:30 Myelocytes % (Man) 0 % (0-2) 06/28/18 07:30 Promyelocytes % (Man) 0 % (0-2) 06/28/18 07:30 Blast Cells % (Manual) 0 % (0-0) 06/28/18 07:30 Nucleated RBC % 0 % (0-0) 07/13/18 09:05 Metamyelocytes 0 % (0-2) 06/28/18 07:30 Hypochromia 0 06/28/18 07:30 Platelet Estimate Normal 06/28/18 07:30 Platelet Comment Present 06/28/18 07:30 Polychromasia 0 06/28/18 07:30 Poikilocytosis 1+ 06/28/18 07:30 Anisocytosis 1+ 06/28/18 07:30 Microcytosis 0 06/28/18 07:30 Macrocytosis 0 06/28/18 07:30 ESR 129 mm/hr (0-20) H 07/01/18 12:00 PT with INR 14.00 SEC (9.7-13.0) H 07/04/18 05:30 INR 1.18 (0.83-1.09) H 07/04/18 05:30 PTT (Actin FS) 43.9 SECONDS (25.2-36.5) H 07/03/18 13:30 Sodium 134 mmol/L (136-145) L 07/14/18 07:00 Potassium 4.2 mmol/L (3.5-5.1) 07/14/18 07:00 Chloride 98 mmol/L (98-107) 07/14/18 07:00 Carbon Dioxide 31 mmol/L (21-32) 07/14/18 07:00 Anion Gap 5 MMOL/L (8-16) L 07/14/18 07:00 BUN 12 mg/dL (7-18) 07/14/18 10:10 Creatinine 2.2 mg/dL (0.55-1.3) H 07/14/18 10:10 Creat Clearance w eGFR 8.67 (>60) 07/14/18 07:00 POC Glucometer 128 UNITS (80-120) 07/14/18 11:40 Random Glucose 114 mg/dL (74-106) H 07/14/18 07:00 Hemoglobin A1c % 5.5 % (4.2-6.3) 06/06/18 06:30 Calcium 10.0 mg/dL (8.5-10.1) 07/14/18 07:00 Phosphorus 3.2 mg/dL (2.5-4.9) 07/11/18 07:45 Magnesium 2.3 mg/dL (1.8-2.4) 07/11/18 07:45 Iron 31 ug/dL (38-169) L 06/24/18 06:45 TIBC 175 ug/dL (250-450) L 06/24/18 06:45 Iron Saturation 18 % (15-55) 06/24/18 06:45 Ferritin 432.8 ng/ml (8-388) H 06/24/18 06:45 Total Bilirubin 0.8 mg/dL (0.2-1) 07/07/18 11:37 AST 94 U/L (15-37) H 07/07/18 11:37 ALT 10 U/L (13-61) L 07/07/18 11:37 Alkaline Phosphatase 355 U/L (45-117) H 07/07/18 11:37 C-Reactive Protein 25.4 MG/DL (0.00-0.3) H 07/01/18 12:00 Total Protein 7.0 g/dl (6.4-8.2) 07/07/18 11:37 Albumin 1.9 g/dl (3.4-5.0) L 07/07/18 11:37 Triglycerides Cancelled 07/05/18 09:20 Cholesterol Cancelled 07/05/18 09:20 Total LDL Cholesterol Cancelled 07/05/18 09:20 HDL Cholesterol Cancelled 07/05/18 09:20 Stool Occult Blood Positive (NEGATIVE) 07/02/18 11:18 Random Vancomycin 12.4 ug/ml (18-26) L 07/03/18 13:30 Hep A IgM Ab Confirm Negative (Negative) 06/16/18 15:30 Hepatitis A Ab Total Positive (Negative) H 06/16/18 15:30 Hep Bs Antigen Negative (Negative) 06/16/18 15:30 Hep Bs Antibody Reactive (.) 06/16/18 15:30 Hep B Core Total Ab Positive (Negative) H 06/16/18 15:30 Hep C Ab Diagnostic <0.1 s/co ratio (0.0-0.9) 06/16/18 15:30 Liver Fibrosis Interp (.) 06/16/18 15:30 Blood Type O POSITIVE 07/09/18 07:40 Antibody Screen Negative 07/09/18 07:40 Crossmatch See Detail 06/30/18 11:25 Microbiology 07/08/18 11:20 Stool Clostridium difficile (PCR) - Final 07/02/18 11:00 Stool Clostridium difficile Antigen (LEONOR) - Final 07/02/18 11:00 Stool Clostridium difficile Toxin Assay - Final 06/27/18 19:30 Blood - Peripheral Venous Blood Culture - Final NO GROWTH AFTER 5 DAYS INCUBATION 06/27/18 17:30 Blood - Peripheral Venous Blood Culture - Final NO GROWTH AFTER 5 DAYS INCUBATION 06/24/18 10:44 Foot - Lt Transmetatarsal Amp Site Gram Stain - Final 06/24/18 10:44 Foot - Lt Transmetatarsal Amp Site Wound Culture - Final Aeromonas Hydrophilia Group 10/09/18 10:56 Foot - Lt Transmetatarsal Amp Site Gram Stain - Final 06/24/18 10:56 Foot - Lt Transmetatarsal Amp Site Wound Culture - Final Stenotrophomon.(X.)Maltophilia 06/05/18 11:10 Blood - Peripheral Venous Blood Culture - Final NO GROWTH AFTER 5 DAYS INCUBATION 06/05/18 11:10 Blood - Peripheral Venous Blood Culture - Final NO GROWTH AFTER 5 DAYS INCUBATION IMAGING: -EKG: NORMAL SINUS RHYTHM, NONSPECIFIC T WAVE ABNORMALITY -EKG done (06/10) revealed new T-wave inversions in lateral leads, -Left Foot XRay (06/05): No fracture or osteomyelitis. -Left Foot XRay (06/12):Status post transmetatarsal amputation left second through fifth digits. Alignment maintained. -Left Foot XRay (06/26): Imaging reveals loss of bone density, heavy vascular calcifications and amputation of the toes with the metatarsal bases remain. There is some soft tissue swelling with bandage artifact. -CT ANGIOGRAM OF THE ABDOMEN AND PELVIS WITH BILATERAL LOWER EXTREMITY RUNOFFS: Predominant distal arterial disease suggestive of diabetic and/or nephrogenic vasculopathy. Predominant disease in the distal left popliteal and infrapopliteal arteries demonstrating interval improvement in flow and mild improvement in the degree of stenosis described on the prior exam, as described above. Essential flow to the foot is provided by the MIGUELITO. Peroneal artery is occluded and S[employer]ANCE demonstrate short segmental occlusions with reconstitution of flow in the plantar artery which demonstrate robust flow. Flow is seen in the digital arteries. Predominant right infrapopliteal disease, as described above, grossly unchanged since the prior exam. Subcutaneous edema with mesenteric stranding possibly due to third spacing/anasarca. Under distended urinary bladder with suggestion of wall thickening. Correlate clinically for cystitis. -CXR: Since 05/14/2018 again noted is the large heart, sclerotic knob and prominent central markings. An acute process is not seen. -R Hip XRay: Within the limitation of examination, the visualized osseous structures appear intact, no acute bony abnormalities are seen. -L Knee XRay: No acute fracture is seen. No evidence of suprapatellar joint effusion. Vascular calcifications. -Head CT Without contrast (07/02 @ 03:15): Approximately 5.9 mm x 3.6 mm x 4.4 mm acute hemorrhage measuring approximately 59 HU along the lateral aspect of the left thalamus, adjacent velasco radiata with mild peripharyngeal edema, The location of the hemorrhage likely related to hypertension. Clinical correlation. No CT evidence of acute territorial ischemic changes. No evidence of subarachnoid hemorrhage. No evidence of acute subdural, epidural hematoma. No evidence of skull fracture -Head CT Without contrast (07/02 @ 08:32): Stable approximately 7 mm focal acute /subacute hemorrhage in the left thalamus, laterally. -MRI Brain: There is no evidence of abnormal restricted diffusion in the brain to suggest acute or subacute infarction. On T2 gradient heme sensitive images, low signal lesion lateral to the left thalamus measuring 6.5 mm x 9.2 mm with blossoming affect, mild brain edema manifested by increased signal intensity on T2, FLAIR sequences. The lesion may represent cavernoma with recent hemorrhage. On T2 gradient echo heme sensitive images, lesion of low signal intensity measuring 6.7 mm x 4.9 mm is observed in the left mid darby. 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 No evidence of supratentorial white matter microangiopathic ischemic changes, gliosis. HOSPITAL COURSE: Date of Admission:06/05/18 Date of Discharge: 07/14/18 68 y/o M w/ PMHx CAD, [place], PVD, ESRD on HD (MWF), HTN who presents with worsening pain and discoloration of the left 4th toe and blackening and pain of the 3rd toe. 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 Patient received 5 units of pRBC's during his stay. Patient completed a 27 day course of antibiotics and his fever resolved and his WBC decreased to WNL. During his stay, his blood pressure continued to rise with his SBP reaching >180. He continued his home dose nifedipine, hydralazine, lasix and Lisinopril and Labetalol with added. Patient experienced a Fall during his stay for which numerous imaging was done (noted above). CT Head had an incidental finding of hemorrhage for which Neurology was consulted. Dr. Espinoza (neurosurgery) was also contacted by the overnight team but did not find cause for surgical intervention. Given these findings, patients ASA and Plavix were held. Patient experienced some blood BM's during his stay for which he was found to be C. Diff antigen positive and completed a 10 day course of vanco. Patient continued his MWF scheduled HD and continued on his home medications. Patient was discharged home strict instructions for wound care and to follow up with cardiology, nephrology and neurology. Minutes to complete discharge: 45 Discharge Summary Reason For Visit: GANGRENE Condition: Improved - Instructions Diet, Activity, Other Instructions: You presented to the hospital because of pain and color change in your left foot. An amputation of your left leg below the knee was done. You received 5 units of blood. Please follow up with in the Wound Care center with Dr. Paiz to further manage this. Please return to the ED if you experience any unbearable pain, excess bleeding, or any other discharge from the site. You completed a 26 day course of antibiotics. Please continue to take tylenol as need for pain. Avoid using NSAIDs (Motrin, Advil) as these can further damage your kidneys. Continue to use the Incentive spirometer as this will help with your breathing. You had diarrhea and were found positive for C. Difficile infection. You completed a 10 day course of Antibiotics. You completed dialysis during your hospital stay. It is important you continue to follow up with your Aviation Program Manager. Please call Dr. Flaherty's office to schedule follow up. You were evaluated by a building consultant during your stay as you had some changes in your EKG. It is very important that you follow up with you building consultant. Please call Dr. Solo's office to schedule follow up. Your blood pressure continued to rise during your stay. The following medications were added/started: 1. Lisinopril 40mg Daily 2. Labetalol 300mg Twice a day Please continue to take Hydralazine 100mg Three times a day, Lasix 40mg daily, Nifedipine 60mg twice a day. Please continue to monitor your blood pressure at home, Your goal BP is less than 140/90. Incidental finding on Cat scan of your brain found a bleed. PLEASE DO NOT TAKE YOUR HOME DOSE ASPIRIN OR PLAVIX UNTIL YOU FOLLOW UP WITH A [employer] CONSULTANT AND NEUROLOGIST. Please continue your hemodialysis on Saturday, saturday. Continue all your other medications as prescribed. Please return to the ER if you have any signs or symptoms of chest pain, shortness of breath, uncontrollable fever, chills, nausea, vomiting, numbness, tingling, or weakness in any part of your body, changes in vision, or slurred speech. Please return to the ER if symptoms persist, worsen, or new symptoms arise. Referrals: Fransisco Claire MD [Staff Physician] - 1 Month Isiah Solo MD [Staff Physician] - 1 Week Kel Paiz MD [Non Staff, Medical] - Kel Paiz MD [Staff Physician] - Kb Leonadro MD [Primary Care Provider] - 1 Week Danyell Flaherty MD [Staff Physician] - 1 Week Rolando Garcia DPM [Staff Physician] - 1 Week Disposition: HOME - Home Medications Comprehensive Discharge Medication List: Ambulatory Orders Sevelamer HCl [Renagel] 800 mg PO TIDCM 05/16/18 Calcitriol [Calcitriol -] 0.25 mcg PO DAILY #30 capsule 05/27/18 Furosemide [Lasix -] 40 mg PO DAILY #30 tablet 05/27/18 Hydralazine HCl 100 mg PO TID #90 tablet 05/27/18 Nifedipine ER [Procardia XL -] 60 mg PO BID #60 tab.er.24 05/27/18 Acetaminophen [Tylenol] 650 mg PO QID PRN 06/05/18 Atorvastatin Ca [Lipitor] 80 mg PO HS #30 tablet 07/09/18 Docusate Sodium [Colace -] 100 mg PO TID #90 capsule 07/09/18 Ferrous Sulfate [Feosol] 325 mg PO BID #60 ud 07/09/18 Labetalol HCl [Normodyne -] 300 mg PO BID #180 tablet 07/09/18 Lisinopril [Prinivil] 40 mg PO DAILY #60 tablet 07/09/18 Sennosides [Senna -] 1 tab PO BID #60 tablet 07/09/18 This patient is new to me today: No Emergency Visit: Yes ED Registration Date: 06/05/18 Care time: The patient presented to the Emergency Department on the above date and was hospitalized for further evaluation of their emergent condition. Critical Care patient: No - Discharge Referral Referred to [facility] Med [facility] No
== END 2018-07-14 16:32 | disposition home or self-care (01) | DRG 305 ==
LOC: JER 08:53 → JERBED 16:37 → UNDOADMIN 23:26 → JERBED 23:26 → J6S 06-06 16:13 → UNDODISIN 06-10 20:42 → J6S 06-14 13:29 → J4S 07-02 11:29
PROVIDERS: ADMIT Internal Medicine; ATTEND Internal Medicine
PROC: 0Y6J0Z1 Detachment at Left Lower Leg, High, Open Approach (ICD-10-PCS; 2018-06-04)
PROC: 0Y6U0Z0 Detachment at Left 3rd Toe, Complete, Open Approach (ICD-10-PCS; 2018-06-11)
PROC: 0Y6W0Z0 Detachment at Left 4th Toe, Complete, Open Approach (ICD-10-PCS; 2018-06-11)
PROC: 0Y6Y0Z0 Detachment at Left 5th Toe, Complete, Open Approach (ICD-10-PCS; 2018-06-11)
PROC: 0Y6S0Z0 Detachment at Left 2nd Toe, Complete, Open Approach (ICD-10-PCS; 2018-06-11 13:00)
PROC: B40JYZZ Plain Radiography of Other Lower Arteries using Other Contrast (ICD-10-PCS; principal; 2018-06-19 09:00)
DX: E11.52 Type 2 diabetes mellitus with diabetic peripheral angiopathy with gangrene (principal); E11.628 Type 2 diabetes mellitus with other skin complications; E11.22 Type 2 diabetes mellitus with diabetic chronic kidney disease; I96 Gangrene, not elsewhere classified; I13.2 Hypertensive heart and chronic kidney disease with heart failure and with stage 5 chronic kidney disease, or end stage renal disease; I50.32 Chronic diastolic (congestive) heart failure; N18.6 End stage renal disease; Z99.2 Dependence on renal dialysis; Z91.15 Patient's noncompliance with renal dialysis; I25.2 Old myocardial infarction; I25.10 Atherosclerotic heart disease of native coronary artery without angina pectoris; D64.9 Anemia, unspecified; M86.172 Other acute osteomyelitis, left ankle and foot; I61.8 Other nontraumatic intracerebral hemorrhage
CPT/HCPCS: 36415; 36430; 70450-TC; 70551-TC; 71045-TC-FY; 73523-TC-FY; 73562-TC-LT-FY; 73630-TC-LT; 75635-TC; 76000-TC-FY; 80048; 80053; 80061; 82272; 82565; 82728; 82962; 83036; 83540; 83550; 83721; 83735; 84100; 84520; 85025; 85027; 85610; 85651; 85730; 86140; 86704; 86706; 86708; 86803; 86850; 86900; 86901; 86922; 87040; 87070; 87186; 87205; 87324; 87340; 87449; 87493; 88304-TC; 88305-TC; 88307-TC; 88311-TC; 93005; 93010; 94760; 97116-GP; 97161-GP; 99283-25; G0480; J0885; J1644; J7030; P9038; P9058

== ENCOUNTER 2018-07-17 11:16 | Inpatient (IN) | payer OTHER ==
--- NOTE | 2018-07-17 11:44 | PDOC ---
History of Present Illness - General Chief Complaint: Weakness Stated Complaint: DIALYSIS Time Seen by Provider: 07/17/18 11:24 History Source: Patient, Family Exam Limitations: No Limitations - History of Present Illness Initial Comments: 07/17/18 11:44 68 yo M w/ a PMHX of ESRD on HD MWF, NIDDM, HTN, PAD, s/p L JYOTI on 07/04 comes in for routine dialysis. He missed his dialysis yesterday because he could not get out of the wheelchair onto the dialysis chair, they did not have a jami lift. He was told to to buy a sling to transfer him onto the dialysis chair but was unable to get it on time. The sling will arrive in a week, hence the ED visit. He took an ambulance from the dialysis center to the ER today. Dr. Rosendo Flaherty is his front services agent His last dialysis was on saturday 07/14 prior to discharge from the hospital. Ptr has wound care follow up on Jul 23 He has no medical complaints today Past History - Past Medical History Allergies/Adverse Reactions: Allergies Allergy/AdvReac Type Severity Reaction Status Date / Time No Known Allergies Allergy Verified 07/17/18 11:26 Home Medications: Ambulatory Orders Sevelamer HCl [Renagel] 800 mg PO TIDCM 05/16/18 Calcitriol [Calcitriol -] 0.25 mcg PO DAILY #30 capsule 05/27/18 Furosemide [Lasix -] 40 mg PO DAILY #30 tablet 05/27/18 Hydralazine HCl 100 mg PO TID #90 tablet 05/27/18 Nifedipine ER [Procardia XL -] 60 mg PO BID #60 tab.er.24 05/27/18 Acetaminophen [Tylenol] 650 mg PO QID PRN 06/05/18 Atorvastatin Ca [Lipitor] 80 mg PO HS #30 tablet 07/09/18 Docusate Sodium [Colace -] 100 mg PO TID #90 capsule 07/09/18 Ferrous Sulfate [Feosol] 325 mg PO BID #60 ud 07/09/18 Labetalol HCl [Normodyne -] 300 mg PO BID #180 tablet 07/09/18 Lisinopril [Prinivil] 40 mg PO DAILY #60 tablet 07/09/18 Sennosides [Senna -] 1 tab PO BID #60 tablet 07/09/18 Anemia: No Asthma: No Cancer: No Cardiac Disorders: No CVA: No COPD: No CHF: No Dementia: No Diabetes: Yes Dialysis: Yes (M-W-F) GI Disorders: No Disorders: Yes (Enlarged prostate) HTN: Yes Hypercholesterolemia: Yes Liver Disease: No Seizures: No Thyroid Disease: No - Surgical History Abdominal Surgery: No Appendectomy: Yes Cardiac Surgery: No Cholecystectomy: No Lung Surgery: No Neurologic Surgery: No Orthopedic Surgery: No - Family Disease History Family Disease History: Diabetes: Father - Suicide/Smoking/Psychosocial Hx Smoking History: Never smoked Have you smoked in the past 12 months: No If you are a former smoker, when did you quit?: many years ago Hx Alcohol Use: No Drug/Substance Use Hx: No Substance Use Type: None Hx Substance Use Treatment: No Review of Systems - Review of Systems Able to Perform ROS?: Yes Constitutional: No: Chills, Fever, Malaise, Night Sweats HEENTM: No: Eye Pain, Recent change in vision, Throat Pain Respiratory: No: Cough, Shortness of Breath Cardiac (ROS): No: Chest Pain, Palpitations, Chest Tightness ABD/GI: No: Diarrhea, Nausea, Vomiting, Abdominal cramping : No: Dysuria, Hematuria Musculoskeletal: No: Back Pain Integumentary: No: Rash Neurological: No: Headache, Numbness, Dizziness Psychiatric: No: Change in Appetite Endocrine: No: Unexplained Weight Loss *Physical Exam - Vital Signs Last Vital Signs Temp Pulse Resp BP Pulse Ox 97.9 F 57 L 18 153/64 99 07/17/18 11:24 07/17/18 11:24 07/17/18 11:24 07/17/18 11:24 07/17/18 11:24 - Physical Exam General Appearance: Yes: Nourished. No: Apparent Distress HEENT: positive: HILLARY, Normal ENT Inspection, Normal Voice. negative: Pale Conjunctivae, Scleral Icterus (R), Scleral Icterus (L) Neck: positive: Supple. negative: Decreased range of motion, Tender midline Respiratory/Chest: positive: Lungs Clear, Normal Breath Sounds. negative: Respiratory Distress, Accessory Muscle Use Cardiovascular: positive: Regular Rhythm, Regular Rate Gastrointestinal/Abdominal: positive: Normal Bowel Sounds, Soft. negative: Tender Musculoskeletal: positive: Normal Inspection, Other (L BKA, dressing in place. No surrounding erythema/warmth/streaking/tenderness/discharge). negative: CVA Tenderness, Decreased Range of Motion Integumentary: positive: Normal Color, Dry. negative: Jaundice, Rash Neurologic: positive: Fully Oriented, Alert, Normal Mood/Affect ED Treatment Course - LABORATORY CBC & Chemistry Diagram: 07/17/18 12:05 07/17/18 12:05 Medical Decision Making - Medical Decision Making 07/17/18 12:02 68 yo M here for routine dialysis. Will page his front services agent, do labs and admit to the hospital for dialysis 07/17/18 13:18 Labs reviewed, new onset hepatitis. No known history. WIll add on lipase and RUQ sono. WIll admit to hospitalist 07/17/18 13:49 I spoke to CARROL Gannon hospitalist who is aware of admission. Dr. Weeks spoke to patient's front services agent *DC/Admit/Observation/Transfer Diagnosis at time of Disposition: ESRD needing dialysis, Hepatitis - Discharge Dispostion Condition at time of disposition: Stable Decision to Admit order: Yes - Referrals - Patient Instructions - Post Discharge Activity
--- NOTE | 2018-07-17 12:00 | PDOC ---
*Physical Exam - Vital Signs Last Vital Signs Temp Pulse Resp BP Pulse Ox 97.9 F 57 L 18 153/64 99 07/17/18 11:24 07/17/18 11:24 07/17/18 11:24 07/17/18 11:24 07/17/18 11:24 ED Treatment Course - LABORATORY CBC & Chemistry Diagram: 07/20/18 09:05 07/20/18 09:05 Medical Decision Making - Medical Decision Making 07/17/18 11:58 Pt seen by the Advanced Practice Provider under my direct supervision Pt interviewed and examined Ancillary studies reviewed I agree with plan as outlined by the Advanced Practice Provider ROSALINE Martínez 68 year old male with CKD, multiple medical problems sent in for dialysis. Dialysis center unable to accommodate the patient because did not have a Hoya lift. Will admit and dialyze patient here. 07/17/18 13:16 New onset of elevated LFTs. Hepatitis? Will need to evaluate as an inpatient. RUQ ultrasound needs to be ordered. *DC/Admit/Observation/Transfer Diagnosis at time of Disposition: ESRD needing dialysis, Hepatitis - Discharge Dispostion Condition at time of disposition: Stable - Referrals - Patient Instructions - Post Discharge Activity
[2018-07-17 12:27] LABS: EOS % 1.3 % (0-4.5); HEMATOCRIT 27.2 % (35.4-49); HEMOGLOBIN 8.6 GM/dL (11.7-16.9); LYMPH % 14.2 % (8-40); MCH 28.8 pg (25.7-33.7); MCHC 31.7 g/dl (32.0-35.9); MEAN CELL VOLUME 90.9 fl (80-96); MEAN PLT VOLUME 8.5 fl (7.5-11.1); MONO % 8.5 % (3.8-10.2); PLATELET COUNT 302 K/MM3 (134-434); RDW 18.9 % (11.9-15.9); WHITE BLOOD COUNT 8.8 K/mm3 (4.0-10.0)
--- NOTE | 2018-07-17 12:46 | CONSULT ---
Consultation: CONSULT REQUEST: Nephrology Resident HISTORY OF PRESENT ILLNESS: 68yo M with h/o HTN, DM, ESRD (M/W/F), and PAD who we have been asked to evaluate for dialysis management. Pt was recently discharged from the hospital for L lower extremity gangrene s/p BKA, however yesterday at dialysis they could not lift the patient to receive his dialysis. His last dialysis session was Saturday07/14/18 for 3:00 hours with 400 flow rate. PMHx: HTN ESRD (M/W/F) DM PAD PShx: Left BKA (07/04/18) L cataract surgery SoHx: Tobacco: Never Alc: None Drugs: None Was previously independent in ADLs REVIEW OF SYSTEMS: CONSTITUTIONAL: Absent: fever, chills, diaphoresis, generalized weakness, malaise, loss of appetite, weight change HEENT: Absent: rhinorrhea, nasal congestion, throat pain, throat swelling, difficulty swallowing, mouth swelling, ear pain, eye pain, visual changes CARDIOVASCULAR: Absent: chest pain, syncope, palpitations, irregular heart rate, lightheadedness , peripheral edema RESPIRATORY: Absent: cough, shortness of breath, dyspnea with exertion, orthopnea, wheezing, stridor, hemoptysis GASTROINTESTINAL: Absent: abdominal pain, abdominal distension, nausea, vomiting, diarrhea, constipation, melena, hematochezia GENITOURINARY: Absent: dysuria, frequency, urgency, hesitancy, hematuria, flank pain, genital pain MUSCULOSKELETAL: Absent: myalgia, arthralgia, joint swelling, back pain, neck pain SKIN: Absent: rash, itching, pallor HEMATOLOGIC/IMMUNOLOGIC: Absent: easy bleeding, easy bruising, lymphadenopathy, frequent infections PHYSICAL EXAMINATION Vital Signs - 24 hr 07/17/18 11:24 Temperature 97.9 F Pulse Rate 57 L Respiratory 18 Rate Blood Pressure 153/64 O2 Sat by Pulse 99 Oximetry (%) GENERAL: NAD, awake, alert, and sitting in bed HEENT: NC/AT, R pupil reactive, L eye s/p cataract surgery nonreactive, EOMI, sclera anicteric, MMM NECK: No JVD LUNGS: CTA bilaterally, no wheezes. On RA HEART: RRR, S1, S2, 2/6 systolic murmur heard best at LLSB ABDOMEN: Soft, NT/ND, normoactive bowel sounds, no guarding EXTREMITIES: 2+ DP pulse R side, L BKA incision C/D/I, no RLE edema. Skin: no rashes noted Laboratory Results - last 24 hr 07/17/18 12:05 WBC 8.8 RBC 3.00 L Hgb 8.6 L Hct 27.2 L MCV 90.9 MCH 28.8 MCHC 31.7 L RDW 18.9 H Plt Count 302 MPV 8.5 Absolute Neuts (auto) 6.6 Neutrophils % 75.0 Lymphocytes % 14.2 Monocytes % 8.5 Eosinophils % 1.3 Basophils % 1.0 Nucleated RBC % 0 ASSESSMENT/PLAN: ESRD (M/W/F) HTN S/p L BKA 2/2 to gangrenous wound Elevated transaminases --Will arrange for HD today as pt missed tomorrow --Usual HD: 3:00h, 400 bfr, no heparin --Awaiting BMP for possibility of electrolyte correction --Epogen and iron supplements to continue --Renal diet --Monitor BP (home medication: hydralazine 100mg TID, Nifedipine 60mg BID, Lisinopril 40mg qdaily, Labetalol 300mg BID) Dispo: HD today Case discussed with Dr. Reynold Mejias, DO - IM PGY-2 Visit type - Emergency Visit Emergency Visit: Yes Care time: The patient presented to the Emergency Department on the above date and was hospitalized for further evaluation of their emergent condition. - New Patient This patient is new to me today: Yes Date on this admission: 07/17/18 - Critical Care Critical Care patient: No
[2018-07-17 12:49] LABS: INR 1.13 (0.83-1.09); PROTHROMBIN TIME (PATIENT) 13.4 SEC (9.7-13.0)
[2018-07-17 12:55] LABS: ALBUMIN 2.1 g/dl (3.4-5.0); ALK PHOS 284 U/L (45-117); ANION GAP 9 MMOL/L (8-16); BILIRUBIN,TOTAL 0.8 mg/dL (0.2-1); BLOOD UREA NITROGEN 41 mg/dL (7-18); CALCIUM 10.3 mg/dL (8.5-10.1); CHLORIDE 94 mmol/L (98-107); CO2 29 mmol/L (21-32); CREATININE 6.5 mg/dL (0.55-1.3); GLUCOSE,RANDOM 134 mg/dL (74-106); MAGNESIUM 2.6 mg/dL (1.8-2.4); POTASSIUM 4.5 mmol/L (3.5-5.1); SGOT/AST 859 U/L (15-37); SGPT/ALT 274 U/L (13-61); SODIUM 132 mmol/L (136-145); TOT PROT 7.4 g/dl (6.4-8.2)
--- NOTE | 2018-07-17 13:59 | PN ---
Teaching Attending Note Name of Resident: Ron Mejias (Nephrology) ATTENDING PHYSICIAN STATEMENT I saw and evaluated the patient. I reviewed the resident's note and discussed the case with the resident. I agree with the resident's findings and plan as documented. Renal Pt seen and examined at bedside. He was sent in for HD as they could not get him into an HD chair in the dialysis facility. He feels well and has no complaints. Current Medications Generic Name Dose Route Start Last Admin Trade Name Freq PRN Reason Stop Dose Admin Epoetin Thomas 12,000 unit 07/17/18 13:38 Epogen - IVPUSH 07/17/18 13:39 ONCE ONE Sodium Chloride 250 mls @ 3,000 mls/hr 07/17/18 13:38 Normal Saline - IV 07/18/18 13:39 PRN PRN Hypotension during Dialysis Iron Sucrose 100 mg/ Sodium 100 mls @ 200 mls/hr 07/17/18 13:38 Chloride IVPB 07/17/18 14:07 ONCE ONE Laboratory Tests 07/17/18 07/17/18 12:05 12:05 Hgb 8.6 L Potassium 4.5 Creatinine 6.5 H Last Vital Signs Temp Pulse Resp BP Pulse Ox 97.9 F 57 L 18 153/64 99 07/17/18 11:24 07/17/18 11:24 07/17/18 11:24 07/17/18 11:24 07/17/18 11:24 cardo s1s2 pulm clear GI soft ext bka neuro awake and alert Impression 1. ESRD on HD 2. anemia 3. DM 4. HTN 5. toe infection/gangrene 6. PVD 7. 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 type 4 cavernous malformation Plan - will arrange for HD today - epogen for anemia - will give a dose of venofer - will need to assess outpt HD - please give bp meds on HD days - avf 3:00 400 abf - renal diet
--- NOTE | 2018-07-17 14:44 | EKG ---
Test Reason : Blood Pressure : / mmHG Vent. Rate : 057 BPM Atrial Rate : 057 BPM P-R Int : 174 ms QRS Dur : 100 ms QT Int : 502 ms P-R-T Axes : 040 -19 164 degrees QTc Int : 488 ms SINUS BRADYCARDIA PROLONGED QT ABNORMAL ECG WHEN COMPARED WITH ECG OF 10-JUN-2018 10:47, INVERTED T WAVES HAVE REPLACED NONSPECIFIC T WAVE ABNORMALITY IN ANTERIOR LEADS Confirmed by ARMEN SHAH, NINFA ([id number]) on 07/17/2018 2:43:55 PM Referred By: Confirmed By:NINFA AYERS MD
--- NOTE | 2018-07-17 14:54 | HP ---
CHIEF COMPLAINT: Needs dialysis treatment and elevated liver enzymes. PCP: Dr. Kb Leonardo HISTORY OF PRESENT ILLNESS: 68 year old male with a PMH significant for ESRD, HTN, CAD, ND, PVD presented to the ED today for dialysis after he was unable to be dialyzed at his center yesterday because they did not have a Jose lift to get him into the chair. Patient recently hospitalized at [facility] from 06/05 - 07/14 for gangrenous left toes , he underwent 2 TMA's (06/11 & 06/24) with poor wound healing and eventually underwent a BKA (07/04). He completed a 27 day course of antibiotics. His stool C. Diff antigen positive and he completed a 10 day course of Vancomycin. Upon admission to the ED He was found to have significantly elevated LFTs (AST 859, ALT 274) greatly increased from 07/07/18 (AST 94, ALT 10). 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 Was a heavy drinker, quit 26 years ago. Drugs: denies Family History: Diabetes: mother, father and 1 sibling Allergies No Known Allergies Allergy (Verified 07/17/18 11:26) HOME MEDICATIONS: Home Medications Medication Instructions Recorded Sevelamer HCl [Renagel] 800 mg PO TIDCM 05/16/18 Calcitriol [Calcitriol -] 0.25 mcg PO DAILY #30 capsule 05/27/18 Furosemide [Lasix -] 40 mg PO DAILY #30 tablet 05/27/18 Hydralazine HCl 100 mg PO TID #90 tablet 05/27/18 Nifedipine ER [Procardia XL -] 60 mg PO BID #60 tab.er.24 05/27/18 Acetaminophen [Tylenol] 650 mg PO QID PRN 06/05/18 Atorvastatin Ca [Lipitor] 80 mg PO HS #30 tablet 07/09/18 Docusate Sodium [Colace -] 100 mg PO TID #90 capsule 07/09/18 Ferrous Sulfate [Feosol] 325 mg PO BID #60 ud 07/09/18 Labetalol HCl [Normodyne -] 300 mg PO BID #180 tablet 07/09/18 Lisinopril [Prinivil] 40 mg PO DAILY #60 tablet 07/09/18 Sennosides [Senna -] 1 tab PO BID #60 tablet 07/09/18 REVIEW OF SYSTEMS CONSTITUTIONAL: (+) generalized weakness, malaise, loss of appetite, weight dan Absent: fever, chills, diaphoresis HEENT: Absent: rhinorrhea, nasal congestion, throat pain, throat swelling, difficulty swallowing, mouth swelling, ear pain, eye pain, visual changes CARDIOVASCULAR: Absent: chest pain, syncope, palpitations, irregular heart rate, lightheadedness , peripheral edema RESPIRATORY: Absent: cough, shortness of breath, dyspnea with exertion, orthopnea, wheezing, stridor, hemoptysis GASTROINTESTINAL: Absent: abdominal pain, abdominal distension, nausea, vomiting, diarrhea, constipation, melena, hematochezia GENITOURINARY: Absent: dysuria, frequency, urgency, hesitancy, hematuria, flank pain, genital pain MUSCULOSKELETAL: Absent: myalgia, arthralgia, joint swelling, back pain, neck pain SKIN: Absent: rash, itching, pallor HEMATOLOGIC/IMMUNOLOGIC: Absent: easy bleeding, easy bruising, lymphadenopathy, frequent infections ENDOCRINE: Absent: unexplained weight gain, unexplained weight loss, heat intolerance, cold intolerance NEUROLOGIC: Absent: headache, focal weakness or paresthesias, dizziness, unsteady gait, seizure, mental status changes, bladder or bowel incontinence PSYCHIATRIC: Absent: anxiety, depression, suicidal or homicidal ideation, hallucinations. PHYSICAL EXAMINATION Vital Signs - 24 hr 07/17/18 11:24 Temperature 97.9 F Pulse Rate 57 L Respiratory 18 Rate Blood Pressure 153/64 O2 Sat by Pulse 99 Oximetry (%) GENERAL: Frail, lethargic, lying in bed, daughter present HEAD: Normal with no signs of trauma. EYES: Sclera slightly icteric, cataract to left eye, pupils equal, round and reactive to light, extraocular movements intact, conjunctiva clear. No lid lag. EARS, NOSE, THROAT: nares patent, oropharynx clear without exudates. Moist mucous membranes. NECK: Normal range of motion, supple without lymphadenopathy, JVD, or masses. LUNGS: B/l basilar crackles, no accessory muscle use. HEART: Regular rate and rhythm, normal S1 and S2 without murmur, rub or gallop. ABDOMEN: Soft, nontender, not distended, normoactive bowel sounds, no guarding, no rebound, no masses. No hepatomegaly or splenomegaly. MUSCULOSKELETAL: Normal range of motion at all joints. No bony deformities or tenderness. No CVA tenderness. UPPER EXTREMITIES: +AV fistula to left UE, 2+ pulses, warm, well-perfused. No cyanosis. No clubbing. No peripheral edema. LOWER EXTREMITIES: Left sided BKA, scant bloody drainage to guaze. 2+ pulses, warm, well-perfused. No calf tenderness. No peripheral edema. NEUROLOGICAL: No facial droop, tongue midline PSYCHIATRIC: Appropriate mood and affect. SKIN: Warm, dry, normal turgor, no rashes or lesions noted, normal capillary refill. Laboratory Results - last 24 hr 07/17/18 07/17/18 07/17/18 12:05 12:05 12:05 WBC 8.8 RBC 3.00 L Hgb 8.6 L Hct 27.2 L MCV 90.9 MCH 28.8 MCHC 31.7 L RDW 18.9 H Plt Count 302 MPV 8.5 Absolute Neuts (auto) 6.6 Neutrophils % 75.0 Lymphocytes % 14.2 Monocytes % 8.5 Eosinophils % 1.3 Basophils % 1.0 Nucleated RBC % 0 PT with INR INR Sodium 132 L Potassium 4.5 Chloride 94 L Carbon Dioxide 29 Anion Gap 9 BUN 41 H Creatinine 6.5 H Creat Clearance w eGFR 8.52 Random Glucose 134 H Calcium 10.3 H Phosphorus 5.0 H Magnesium 2.6 H Total Bilirubin 0.8 AST 859 H ALT 274 H Alkaline Phosphatase 284 H Total Protein 7.4 Albumin 2.1 L Blood Type O POSITIVE Antibody Screen Negative 07/17/18 12:05 WBC RBC Hgb Hct MCV MCH MCHC RDW Plt Count MPV Absolute Neuts (auto) Neutrophils % Lymphocytes % Monocytes % Eosinophils % Basophils % Nucleated RBC % PT with INR 13.40 H INR 1.13 H Sodium Potassium Chloride Carbon Dioxide Anion Gap BUN Creatinine Creat Clearance w eGFR Random Glucose Calcium Phosphorus Magnesium Total Bilirubin AST ALT Alkaline Phosphatase Total Protein Albumin Blood Type Antibody Screen ECG Sinus bradycardia, vent rate 57 prolonged QTc 488 CXR Mild congestive changes since prior study, no evidence of infiltrates. ASSESSMENT/PLAN: 68 year old male with a PMH significant for ESRD, HTN, CAD, ND, PVD presented to the ED today for dialysis after he was unable to be dialyzed at his center yesterday. He was found to have significantly elevated LFTs. Admitted for dialysis and and hepatic work up. ESRD -Secondary to medication nephrotoxicity during left foot DM wound treatment 3 years ago -On HD MWF for 2 years -Usual HD: 3:00h, 400 bfr, no heparin -Patient to have HD today -Assess outpt HD -Renal diet -Seen by property inspector Dr. Agrawal Elevated LFTs -AST 859, ALT 274 -ncreased from 07/07/18 AST 94, ALT 10 -Recently tested negative for hepatitis B or C. Hepatitis B core antibody positive. -Liver US ordered -Seen by GI specialist Dr. 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 Paiz. HTN -Furosemide 40 mg DAILY -Hydralazine 100 mg TID -Nifedipine ER 60 mg BID -Labetalol 300 mg BID -[id number] mg DAILY -Administer BP meds on HD days HLD -Hold home Atorvastatin 80 mg d/t elevated LFTs Anemia -Renagel 800 mg TID -Iron supplement 325 mg BID -will give a dose of venofer Constipation -Colace -Senna Supplements -Calcitriol FEN --PO intake adequate --Electrolytes replete as indicated --Renal diet DVT Prophylaxis --Heparin SQ Dispo: pt currently requires further inpatient care. FULL CODE Visit type - Emergency Visit Emergency Visit: Yes ED Registration Date: 07/17/18 Care time: The patient presented to the Emergency Department on the above date and was hospitalized for further evaluation of their emergent condition. - New Patient This patient is new to me today: Yes Date on this admission: 07/17/18 - Critical Care Critical Care patient: No
[2018-07-17 15:08] LABS: LIPASE 62 U/L (73-393)
--- NOTE | 2018-07-17 16:39 | CON.GI ---
Consult Consult Specialty:: GI Referred by:: Hospitalist Service Reason for Consultation:: Elevated liver chemistries - History of Present Illness Chief Complaint: Patient was supposed to have dialysis yesterday History of Present Illness: 68M admitted because he was supposed to have hemodialysis yesterday, a hoya lift was not available, was told to try again today and wound up being brought to the ER by his family. His liver chemistries were noted to be elevated AST/ ALT and ALP. Was asked to evaluate further. His daughter was present bedside. He takes 1-2 tylenol per day when his left leg hurts. he was a heavy drinker , quit 26 years ago and does not currently drink. In review of [facility], he was recently tested for viral hepatitis. He was negative for hepatitis B or C. He was hepatitis A Ab positive. He was hepatitis B core antibody positive. There has been no recent travel, change in bowel habits and there is no history of IVDA. He was recently discharged from [facility] after a prolonged hospitalization spanning 06/05-07/14. It appears that on 06/28 transaminases began to rise and that he has had a chronically elevated alkaline phosphatase predating this. During that admission he sustained a fall, was given Abx (zosyn /levaquin) and underwent Left BKA 07/04. he was also maintained on a statin. He was given PO vancocin for presumed C. Diff and was started on cymbalta by psychiatry 07/11. He denies abdominal pain. His daughter states that he has constipation on occasion and has had BRBPR at times with strained bowel movements. He has never had a colonoscopy. - Past Medical History Cardio/Vascular: Yes: CAD, CHF, HTN, IA, Murmur, Other (PAD) Renal/: Yes: Renal Failure, Hemodialysis Endocrine: Yes: Diabetes Mellitus Dermatology: Yes: Other (ganjd) Additional Medical History: DM - Past Surgical History Past Surgical History: Yes: Amputation (Left BKA ), AV Fistula/Graft - Alcohol/Substance Use Hx Alcohol Use: No - Smoking History Smoking history: Never smoked Have you smoked in the past 12 months: No If you are a former smoker, when did you quit?: many years ago - Social History Usual Living Arrangement: With Significant Other ADL: Independent Home Medications - Allergies Allergies/Adverse Reactions: Allergies Allergy/AdvReac Type Severity Reaction Status Date / Time No Known Allergies Allergy Verified 07/17/18 11:26 - Home Medications Home Medications: Ambulatory Orders Sevelamer HCl [Renagel] 800 mg PO TIDCM 05/16/18 Calcitriol [Calcitriol -] 0.25 mcg PO DAILY #30 capsule 05/27/18 Furosemide [Lasix -] 40 mg PO DAILY #30 tablet 05/27/18 Hydralazine HCl 100 mg PO TID #90 tablet 05/27/18 Nifedipine ER [Procardia XL -] 60 mg PO BID #60 tab.er.24 05/27/18 Acetaminophen [Tylenol] 650 mg PO QID PRN 06/05/18 Atorvastatin Ca [Lipitor] 80 mg PO HS #30 tablet 07/09/18 Docusate Sodium [Colace -] 100 mg PO TID #90 capsule 07/09/18 Ferrous Sulfate [Feosol] 325 mg PO BID #60 ud 07/09/18 Labetalol HCl [Normodyne -] 300 mg PO BID #180 tablet 07/09/18 Lisinopril [Prinivil] 40 mg PO DAILY #60 tablet 07/09/18 Sennosides [Senna -] 1 tab PO BID #60 tablet 07/09/18 Family Disease History - Family Disease History Family Disease History: Diabetes: Father (did not know him), Mother (did not know him), Sister, Other: Mother, Son (4, healthy), Daughter (4, healthy) Other Family History: Non family history of colon cancer that he is aware of Review of Systems - Review of Systems Constitutional: denies: Fever Respiratory: denies: Cough Gastrointestinal: reports: Constipation, Rectal Bleeding. denies: Abdominal Pain, Melena Physical Exam-GI Vital Signs: Vital Signs Temperature 97.9 F 07/17/18 11:24 Pulse Rate 62 07/17/18 15:09 Respiratory Rate 15 07/17/18 15:09 Blood Pressure 181/74 H 07/17/18 15:09 O2 Sat by Pulse Oximetry (%) 94 L 07/17/18 15:09 Constitutional: Yes: Calm Eyes: No: Sclera Icterus Cardiovascular: Yes: Regular Rate and Rhythm Respiratory: Yes: CTA Bilaterally Gastrointestinal Inspection: No: Distention ...Auscultate: Yes: Normoactive Bowel Sounds ...Palpate: No: Hepatomegaly, Splenomegaly, Tenderness ...Percussion: No: Tympanitic ...Rectal Exam: Yes: Other (No external lesions, no masses, guaiac negative light brown stool. could not properly palpate prostate as patient did not cooperate) Edema: No (Left BKA) Neurological: Yes: Alert Labs: CBC, BMP 07/17/18 12:05 07/17/18 12:05 INR, PTT INR 1.13 (0.83-1.09) H 07/17/18 12:05 Hepatic Panel Total Bilirubin 0.8 mg/dL (0.2-1) 07/17/18 12:05 AST 859 U/L (15-37) H 07/17/18 12:05 ALT 274 U/L (13-61) H 07/17/18 12:05 Alkaline Phosphatase 284 U/L (45-117) H 07/17/18 12:05 Albumin 2.1 g/dl (3.4-5.0) L 07/17/18 12:05 Problem List - Problems (1) Transaminitis Assessment/Plan: Asymptomatic. While alkaline phaosphatase is elevated, this seems to be chronic in nature, with transaminitis occurring during last admission. ? if this is reflective of antibiotic therapy, rhabdomyolysis, medication interaction. he was taking tylenol at home however 1-2 tabs at most per patient and daughter APAP level undetectable on admission Advise: Abdominal US with doppler of portal vein / hepatic veins Follow-up CPK I added on to today's labs Acute hepatitis serologies (however as above, previously negative) Avoid hepatotoxic agents: statin has been stopped Monitor LFT's / coags Will follow with you Code(s): R74.0 - NONSPEC ELEV OF LEVELS OF TRANSAMNS & LACTIC ACID DEHYDRGNSE
[2018-07-17] MEDS ORDERED: SODIUM CHLORIDE 250 ML IV PRN (16:55)
[2018-07-17] MEDS ORDERED: EPOETIN ALFA 10,000 UNIT/1 ML VIAL IVPUSH ONE (17:00)
[2018-07-17] MEDS ORDERED: IRON SUCROSE INJECTION 100 MG in SODIUM CHLORIDE 95 ML IVPB ONE (17:00)
[2018-07-17] MEDS: LABETALOL HCL 100 MG TABLET (FP) PO SCH ×2 (18:46→21:57)
[2018-07-17] MEDS: hydrALAZINE HCL 50 MG TABLET (FP) PO SCH ×2 (18:46→21:56)
[2018-07-17] MEDS: LISINOPRIL 20 MG TABLET (FP) PO SCH (18:46)
[2018-07-17] MEDS: NIFEdipine E.R 60 MG TABLET (UD) PO SCH ×2 (18:47→21:57)
[2018-07-17 20:26] LABS: ANION GAP 12 MMOL/L (8-16); BLOOD UREA NITROGEN 43 mg/dL (7-18); CALCIUM 9.6 mg/dL (8.5-10.1); CHLORIDE 94 mmol/L (98-107); CO2 28 mmol/L (21-32); CREATININE 6.7 mg/dL (0.55-1.3); GLUCOSE,RANDOM 90 mg/dL (74-106); POTASSIUM 4.4 mmol/L (3.5-5.1); SODIUM 135 mmol/L (136-145)
[2018-07-17] MEDS ORDERED: hydrALAZINE HCL 50 MG TABLET (FP) PO ONE (20:30)
--- NOTE | 2018-07-17 20:43 | HOSP ---
Subjective - Review of Symptoms Events since last encounter: Hospitalist Encounter Notified by Dr. Argueta that the patient's BP is till uncontrolled per nursing staff Subjective: Arrived to the bedside, patient is awake, alert and oriented, patient is [place] speaking, family at bedside who translated for him. Patient denies CP, palpitations or SOB. Vitals taken P 56, BP 143/57, manual 140/56 P58 Patient completed his Dialysis Plan Continue current regimen Monitor BP Physical Examination Vital Signs: Vital Signs Temperature 98.4 F 07/17/18 19:30 Pulse Rate 63 07/17/18 19:45 Respiratory Rate 20 07/17/18 19:45 Blood Pressure 183/69 H 07/17/18 19:45 O2 Sat by Pulse Oximetry (%) 94 L 07/17/18 15:09 Labs: CBC, BMP 07/17/18 12:05 07/17/18 16:20
[2018-07-17] MEDS: FERROUS SO4 325 MG TABLET (FP) PO SCH (21:53)
[2018-07-17] MEDS: SEVELAMER CARBONATE 800 MG TAB (FP) PO SCH (21:53)
[2018-07-17] MEDS: SENNOSIDES 8.6MG TABLET (FP) PO SCH (21:55)
[2018-07-17] MEDS: DOCUSATE SODIUM 100 MG CAPSULE (FP) PO SCH (21:55)
[2018-07-17] MEDS: HEPARIN NA (PORCINE) 5,000 UNITS/ML 1ML VIAL SQ SCH (21:57)
[2018-07-18] MEDS: HEPARIN NA (PORCINE) 5,000 UNITS/ML 1ML VIAL SQ SCH (06:48)
[2018-07-18] MEDS: hydrALAZINE HCL 50 MG TABLET (FP) PO SCH ×3 (06:48→22:34)
[2018-07-18] MEDS: DOCUSATE SODIUM 100 MG CAPSULE (FP) PO SCH ×3 (06:48→22:35)
[2018-07-18] MEDS: LABETALOL HCL 100 MG TABLET (FP) PO SCH ×3 (08:13→22:35)
[2018-07-18] MEDS: FUROSEMIDE 40 MG TABLET (FP) PO SCH ×2 (08:13→10:00)
[2018-07-18] MEDS: LISINOPRIL 20 MG TABLET (FP) PO SCH ×2 (08:14→10:00)
[2018-07-18] MEDS: SEVELAMER CARBONATE 800 MG TAB (FP) PO SCH ×3 (08:14→18:11)
[2018-07-18] MEDS: NIFEdipine E.R 60 MG TABLET (UD) PO SCH ×3 (08:14→22:35)
[2018-07-18 09:51] LABS: HEMATOCRIT 27.2 % (35.4-49); HEMOGLOBIN 8.6 GM/dL (11.7-16.9); MCH 28.8 pg (25.7-33.7); MCHC 31.4 g/dl (32.0-35.9); MEAN CELL VOLUME 91.7 fl (80-96); MEAN PLT VOLUME 8.4 fl (7.5-11.1); PLATELET COUNT 295 K/MM3 (134-434); RBC 2.97 M/mm3 (4.00-5.60); RDW 19.6 % (11.9-15.9); WHITE BLOOD COUNT 8.1 K/mm3 (4.0-10.0)
[2018-07-18 11:07] LABS: ALBUMIN 2.1 g/dl (3.4-5.0); ALK PHOS 279 U/L (45-117); ANION GAP 11 MMOL/L (8-16); BILIRUBIN,TOTAL 0.8 mg/dL (0.2-1); BLOOD UREA NITROGEN 20 mg/dL (7-18); CALCIUM 9.9 mg/dL (8.5-10.1); CHLORIDE 97 mmol/L (98-107); CO2 30 mmol/L (21-32); GLUCOSE,RANDOM 86 mg/dL (74-106); POTASSIUM 3.5 mmol/L (3.5-5.1); SGOT/AST 754 U/L (15-37); SGPT/ALT 278 U/L (13-61); SODIUM 138 mmol/L (136-145); TOT PROT 7.3 g/dl (6.4-8.2)
--- NOTE | 2018-07-18 11:54 | PN ---
GI Progress Note Subjective: No focal complaints Abd US reveals sludge, thick walled GB, heterogeneous liver, ascites - Objective Vital Signs: Vital Signs Temperature 98.3 F 07/18/18 08:10 Pulse Rate 58 L 07/18/18 11:20 Respiratory Rate 18 07/18/18 08:10 Blood Pressure 140/57 L 07/18/18 11:20 O2 Sat by Pulse Oximetry (%) 94 L 07/17/18 21:00 Constitutional: Calm Eyes: No: Sclera Icterus Cardiovascular: Yes: Regular Rate and Rhythm Respiratory: Yes: CTA Bilaterally Gastrointestinal Inspection: No: Distention ...Auscultate: Yes: Normoactive Bowel Sounds ...Palpate: No: Tenderness ...Percussion: No: Tympanitic Edema: No (Lt BKA) Neurological: Yes: Alert Labs: CBC, BMP 07/18/18 09:25 07/18/18 09:25 INR, PTT INR 1.13 (0.83-1.09) H 07/17/18 12:05 Laboratory Tests 07/17/18 07/17/18 12:05 16:20 Creatine Kinase 5264 H 4405 H Hepatic Panel Total Bilirubin 0.8 mg/dL (0.2-1) 07/18/18 09:25 AST 754 U/L (15-37) H 07/18/18 09:25 ALT 278 U/L (13-61) H 07/18/18 09:25 Alkaline Phosphatase 279 U/L (45-117) H 07/18/18 09:25 Albumin 2.1 g/dl (3.4-5.0) L 07/18/18 09:25 Problem List - Problems (1) Transaminitis Assessment/Plan: Suspect transaminitis to reflect rhabdomyolysis with elevated alkaline phosphatase predating rise in AST/ALT GB US findings likely reflecting chronic cholecystitis / hypoalbuminemic state. Hepatitis serologies Monitor LFTs Evaluation of rhabdomyolysis per primary team. Statin has been held Explained to daughter that when acute issues are resolved, he can have outpatient follow-up to discuss colonoscopy given h/o rectal bleeding Code(s): R74.0 - NONSPEC ELEV OF LEVELS OF TRANSAMNS & LACTIC ACID DEHYDRGNSE
--- NOTE | 2018-07-18 12:05 | PN ---
Physical Exam: SUBJECTIVE: Patient seen and examined in his room. OBJECTIVE: Vital Signs Period Temp Pulse Resp BP Sys/Cole Pulse Ox Last 24 Hr 97.7 F-98.6 F 57-72 15-20 140-209/48-112 94-94 GENERAL: Frail, more alert than yesterday, lying in bed HEAD: Normal with no signs of trauma. EYES: Sclera slightly icteric, cataract to left eye, pupils equal, round and reactive to light, extraocular movements intact, conjunctiva clear. No lid lag. EARS, NOSE, THROAT: nares patent, oropharynx clear without exudates. Moist mucous membranes. NECK: Normal range of motion, supple without lymphadenopathy, JVD, or masses. LUNGS: B/l basilar crackles, no accessory muscle use. HEART: Regular rate and rhythm, normal S1 and S2 without murmur, rub or gallop. ABDOMEN: Soft, nontender, not distended, normoactive bowel sounds, no guarding, no rebound, no masses. No hepatomegaly or splenomegaly. MUSCULOSKELETAL: Normal range of motion at all joints. No bony deformities or tenderness. No CVA tenderness. UPPER EXTREMITIES: +AV fistula to left UE, 2+ pulses, warm, well-perfused. No cyanosis. No clubbing. No peripheral edema. LOWER EXTREMITIES: Left sided BKA wrapped in gauze. 2+ pulses, warm, well- perfused. No calf tenderness. No peripheral edema. NEUROLOGICAL: No facial droop, tongue midline PSYCHIATRIC: Appropriate mood and affect. SKIN: Warm, dry, normal turgor, no rashes or lesions noted, normal capillary refill. Laboratory Results - last 24 hr 07/17/18 07/17/18 07/17/18 12:05 12:05 12:05 WBC 8.8 RBC 3.00 L Hgb 8.6 L Hct 27.2 L MCV 90.9 MCH 28.8 MCHC 31.7 L RDW 18.9 H Plt Count 302 MPV 8.5 Absolute Neuts (auto) 6.6 Neutrophils % 75.0 Lymphocytes % 14.2 Monocytes % 8.5 Eosinophils % 1.3 Basophils % 1.0 Nucleated RBC % 0 PT with INR INR Sodium 132 L Potassium 4.5 Chloride 94 L Carbon Dioxide 29 Anion Gap 9 BUN 41 H Creatinine 6.5 H Creat Clearance w eGFR 8.52 Random Glucose 134 H Calcium 10.3 H Phosphorus 5.0 H Magnesium 2.6 H Total Bilirubin 0.8 AST 859 H ALT 274 H Alkaline Phosphatase 284 H Creatine Kinase 5264 H Creatine Kinase Index 0.7 CK-MB (CK-2) 39.8 H Total Protein 7.4 Albumin 2.1 L Lipase 62 L Salicylates < 1.7 L Acetaminophen < 2.0 L Blood Type O POSITIVE Antibody Screen Negative 07/17/18 07/17/18 07/18/18 12:05 16:20 09:25 WBC 8.1 RBC 2.97 L Hgb 8.6 L Hct 27.2 L MCV 91.7 MCH 28.8 MCHC 31.4 L RDW 19.6 H Plt Count 295 MPV 8.4 Absolute Neuts (auto) Neutrophils % Lymphocytes % Monocytes % Eosinophils % Basophils % Nucleated RBC % PT with INR 13.40 H INR 1.13 H Sodium 135 L Potassium 4.4 Chloride 94 L Carbon Dioxide 28 Anion Gap 12 BUN 43 H Creatinine 6.7 H Creat Clearance w eGFR 8.23 Random Glucose 90 Calcium 9.6 Phosphorus Magnesium Total Bilirubin AST ALT Alkaline Phosphatase Creatine Kinase 4405 H Creatine Kinase Index 0.7 CK-MB (CK-2) 32.2 H Total Protein Albumin Lipase Salicylates Acetaminophen Blood Type Antibody Screen 07/18/18 09:25 WBC RBC Hgb Hct MCV MCH MCHC RDW Plt Count MPV Absolute Neuts (auto) Neutrophils % Lymphocytes % Monocytes % Eosinophils % Basophils % Nucleated RBC % PT with INR INR Sodium 138 Potassium 3.5 Chloride 97 L Carbon Dioxide 30 Anion Gap 11 BUN 20 H Creatinine 4.0 H Creat Clearance w eGFR 14.92 Random Glucose 86 Calcium 9.9 Phosphorus Magnesium Total Bilirubin 0.8 AST 754 H ALT 278 H Alkaline Phosphatase 279 H Creatine Kinase Creatine Kinase Index CK-MB (CK-2) Total Protein 7.3 Albumin 2.1 L Lipase Salicylates Acetaminophen Blood Type Antibody Screen Active Medications Generic Name Dose Route Start Last Admin Trade Name Freq PRN Reason Stop Dose Admin Calcitriol 0.25 mcg 07/18/18 10:00 Rocaltrol - PO DAILY [facility] Docusate Sodium 100 mg 07/17/18 22:00 07/18/18 06:48 Colace - PO Not Given TID CHUCKY Ferrous Sulfate 325 mg 07/17/18 17:30 07/17/18 21:53 Feosol - PO Not Given BIDWM CHUCKY Furosemide 40 mg 07/18/18 10:00 07/18/18 10:00 Lasix - PO Not Given DAILY CHUCKY Hydralazine HCl 100 mg 07/17/18 22:00 07/18/18 06:48 Apresoline - PO 100 mg TID CHUCKY Administration Sodium Chloride 250 mls @ 3,000 mls/hr 07/17/18 16:55 Normal Saline - IV 07/18/18 16:54 PRN PRN Hypotension during Dialysis Labetalol HCl 300 mg 07/17/18 22:00 07/18/18 10:00 Normodyne - PO Not Given BID CHUCKY Lisinopril 40 mg 07/18/18 10:00 07/18/18 10:00 Prinivil PO Not Given DAILY [facility]Y Nifedipine 60 mg 07/17/18 22:00 07/18/18 10:00 Procardia Xl - PO Not Given BID CHUCKY Senna 1 tab 07/17/18 22:00 07/17/18 21:55 Senna - PO 1 tab BID CHUCKY Administration Sevelamer Carbonate 800 mg 07/17/18 17:30 07/18/18 08:14 Renvela - PO Not Given TIDCM CHUCKY Liver Ultrasound Acites Thick-walled gallbladder with billiary sludge Heterogeneous liver suspicious for hepatocellular disease Atrophic right kidney. ASSESSMENT/PLAN: 68 year old male with a PMH significant for ESRD, HTN, CAD, [place], PVD presented to the ED yesterday for dialysis after he was unable to be dialyzed at his center yesterday b/c they did not have the sling for the Jose lift. He was found to have significantly elevated LFTs. Admitted for dialysis and and hepatic work up. ESRD -Secondary to medication nephrotoxicity during left foot DM wound treatment 3 years ago -Dialyzed last night --BUN/Cr 43/6.7 -> 20/4.0 -Next dialysis tomorrow, then restart MWF per Dr. Agrawal -3:00h, 400 bfr, no heparin -Renal diet -please give bp meds on HD days, DO NOT HOLD HTN -Patient with significantly elevated BP yesterday in the 200s/110s -Given his AM antihypertensive meds yesterday evening to good effect -now normotensive 140/57 -Continue home medications -Furosemide 40 mg DAILY -Hydralazine 100 mg TID -Nifedipine ER 60 mg BID -Labetalol 300 mg BID -[id number] mg DAILY -Administer BP meds on HD days -Patient seen by casey saw operator Dr. Lee today, continue with current regimen. Elevated LFTs -AST 859 -> 754, ALT 274 -increased from 07/07/18 AST 94, ALT 10 -Recently tested negative for hepatitis B or C. Hepatitis B core antibody positive -APAP serum levels negative -consulted poison control, however given gradual upward trend of AST, they did not suspect APAP toxicity. -Statin held -Liver US: +Acites, suspicious for hepatocellular disease showed acites -Monitor LFTs -Seen by GI specialist Dr. Umaña -Suspect transaminitis to reflect rhabdomyolysis with elevated alkaline phosphatase predating rise in AST/ALT -GB US findings likely reflecting chronic cholecystitis / hypoalbuminemic state. 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 Paiz. HLD -Hold home Atorvastatin 80 mg d/t elevated LFTs History of intracranial hemorrhage -Incidental finding on head CT 07/02 -Neurology and neurosurgery consulted. Dr. Espinoza (neurosurgery) did not find cause for surgical intervention. -Patient's ASA and Plavix were discontinued Anemia -Renagel 800 mg TID -Iron supplement 325 mg BID -will give a dose of venofer Constipation -Colace -Senna Supplements -Calcitriol FEN --PO intake adequate --Electrolytes replete as indicated --Renal diet DVT Prophylaxis -No chemical prophylaxis d/t intracranial hemorrhage Dispo: pt currently requires further inpatient care. FULL CODE Visit type - Emergency Visit Emergency Visit: No - New Patient This patient is new to me today: No - Critical Care Critical Care patient: No
[2018-07-18] MEDS: CALCITRIOL 0.25 MCG CAPSULE (FP) PO SCH (12:14)
[2018-07-18] MEDS: FERROUS SO4 325 MG TABLET (FP) PO SCH ×2 (12:14→18:12)
[2018-07-18] MEDS: SENNOSIDES 8.6MG TABLET (FP) PO SCH ×3 (12:14→22:35)
--- NOTE | 2018-07-18 12:33 | PN ---
Progress Note, Physician History of Present Illness: Pt seen and examined at bedside. He was dialyzed yesterday. He denies shortness of breath. Will arrange for HD tomorrow. - Current Medication List Current Medications: Active Medications Calcitriol (Rocaltrol -) 0.25 mcg PO DAILY [facility] Last Admin: 07/18/18 12:14 Dose: 0.25 mcg Docusate Sodium (Colace -) 100 mg PO TID [facility] Last Admin: 07/18/18 06:48 Dose: Not Given Ferrous Sulfate (Feosol -) 325 mg PO BIDWM [facility] Last Admin: 07/18/18 12:14 Dose: 325 mg Furosemide (Lasix -) 40 mg PO DAILY [facility] Last Admin: 07/18/18 10:00 Dose: Not Given Hydralazine HCl (Apresoline -) 100 mg PO TID [facility] Last Admin: 07/18/18 06:48 Dose: 100 mg Sodium Chloride (Normal Saline -) 250 mls @ 3,000 mls/hr IV PRN PRN PRN Reason: Hypotension during Dialysis Stop: 07/18/18 16:54 Labetalol HCl (Normodyne -) 300 mg PO BID [facility] Last Admin: 07/18/18 10:00 Dose: Not Given Lisinopril (Prinivil) 40 mg PO DAILY [facility] Last Admin: 07/18/18 10:00 Dose: Not Given Nifedipine (Procardia Xl -) 60 mg PO BID [facility] Last Admin: 07/18/18 10:00 Dose: Not Given Senna (Senna -) 1 tab PO BID [facility] Last Admin: 07/18/18 12:16 Dose: Not Given Sevelamer Carbonate (Renvela -) 800 mg PO TIDCM [facility] Last Admin: 07/18/18 12:13 Dose: 800 mg - Objective Vital Signs: Vital Signs Temperature 98.3 F 07/18/18 08:10 Pulse Rate 58 L 07/18/18 11:20 Respiratory Rate 18 07/18/18 08:10 Blood Pressure 140/57 L 07/18/18 11:20 O2 Sat by Pulse Oximetry (%) 94 L 07/17/18 21:00 Constitutional: Yes: Calm Eyes: Yes: Conjunctiva Clear HENT: Yes: Atraumatic Neck: Yes: Supple Cardiovascular: Yes: S1, S2 Respiratory: Yes: CTA Bilaterally Gastrointestinal: Yes: Soft Genitourinary: Yes: WNL Extremities: Yes: Other (left bka) Edema: No Neurological: Yes: Oriented Psychiatric: Yes: Oriented Labs: CBC, BMP 07/18/18 09:25 07/18/18 09:25 INR, PTT INR 1.13 (0.83-1.09) H 07/17/18 12:05 Assessment/Plan Current Medications Generic Name Dose Route Start Last Admin Trade Name Freq PRN Reason Stop Dose Admin Calcitriol 0.25 mcg 07/18/18 10:00 07/18/18 12:14 Rocaltrol - PO 0.25 mcg DAILY [facility]Y Administration Docusate Sodium 100 mg 07/17/18 22:00 07/18/18 06:48 Colace - PO Not Given TID CHUCKY Ferrous Sulfate 325 mg 07/17/18 17:30 07/18/18 12:14 Feosol - PO 325 mg BIDWM CHUCKY Administration Furosemide 40 mg 07/18/18 10:00 07/18/18 10:00 Lasix - PO Not Given DAILY [facility] Hydralazine HCl 100 mg 07/17/18 22:00 07/18/18 06:48 Apresoline - PO 100 mg TID CHUCKY Administration Sodium Chloride 250 mls @ 3,000 mls/hr 07/17/18 16:55 Normal Saline - IV 07/18/18 16:54 PRN PRN Hypotension during Dialysis Labetalol HCl 300 mg 07/17/18 22:00 07/18/18 10:00 Normodyne - PO Not Given BID CHUCKY Lisinopril 40 mg 07/18/18 10:00 07/18/18 10:00 Prinivil PO Not Given DAILY [facility] Nifedipine 60 mg 07/17/18 22:00 07/18/18 10:00 Procardia Xl - PO Not Given BID CHUCKY Senna 1 tab 07/17/18 22:00 07/18/18 12:16 Senna - PO Not Given BID CHUCKY Sevelamer Carbonate 800 mg 07/17/18 17:30 07/18/18 12:13 Renvela - PO 800 mg TIDCM CHUCKY Administration Impression 1. ESRD on HD 2. anemia 3. DM 4. HTN 5. toe infection/gangrene 6. PVD 7. 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 transaminitis Plan - pt dialyzed last night - HD tomorrow, pt is a MWF HD pt, will need - repeat bp is 140/57 - please give bp meds on HD days, DO NOT HOLD - monitor LFTs - discussed with medical team - avf 3:00 400 abf - renal diet
--- NOTE | 2018-07-18 12:39 | CON.CARD ---
Consult Consult Specialty:: Cardiology - History of Present Illness History of Present Illness: 68 year old male with a PMH significant for ESRD, HTN, CAD, [place], PVD presented to the ED today for dialysis after he was unable to be dialyzed at his center yesterday because they did not have a Jose lift to get him into the chair. Patient recently hospitalized at [facility] from 06/05 - 07/14 for gangrenous left toes , he underwent 2 TMA's (06/11 & 06/24) with poor wound healing and eventually underwent a BKA (07/04). He completed a 27 day course of antibiotics. His stool C. Diff antigen positive and he completed a 10 day course of Vancomycin. Upon admission to the ED He was found to have significantly elevated LFTs (AST 859, ALT 274) greatly increased from 07/07/18 (AST 94, ALT 10). Recent Travel: none PAST MEDICAL HISTORY: ESRD 2/2 medication nephrotoxicity during left foot DM wound treatment 3 years ago On HD x 2 years HTN CAD [place] PVD - History Source History Provided By: Patient, Medical Record - Past Medical History Cardio/Vascular: Yes: CAD, CHF, HTN, [place], Murmur, Other (PAD) Renal/: Yes: Renal Failure, Hemodialysis Endocrine: Yes: Diabetes Mellitus Dermatology: Yes: Other (maya) Additional Medical History: DM - Past Surgical History Past Surgical History: Yes: Amputation (Left BKA ), AV Fistula/Graft - Alcohol/Substance Use Hx Alcohol Use: No - Smoking History Smoking history: Never smoked Have you smoked in the past 12 months: No If you are a former smoker, when did you quit?: many years ago - Social History Usual Living Arrangement: With Significant Other ADL: Independent Home Medications - Allergies Allergies/Adverse Reactions: Allergies Allergy/AdvReac Type Severity Reaction Status Date / Time No Known Allergies Allergy Verified 07/17/18 11:26 - Home Medications Home Medications: Ambulatory Orders Sevelamer HCl [Renagel] 800 mg PO TIDCM 05/16/18 Calcitriol [Calcitriol -] 0.25 mcg PO DAILY #30 capsule 05/27/18 Furosemide [Lasix -] 40 mg PO DAILY #30 tablet 05/27/18 Hydralazine HCl 100 mg PO TID #90 tablet 05/27/18 Nifedipine ER [Procardia XL -] 60 mg PO BID #60 tab.er.24 05/27/18 Acetaminophen [Tylenol] 650 mg PO QID PRN 06/05/18 Atorvastatin Ca [Lipitor] 80 mg PO HS #30 tablet 07/09/18 Docusate Sodium [Colace -] 100 mg PO TID #90 capsule 07/09/18 Ferrous Sulfate [Feosol] 325 mg PO BID #60 ud 07/09/18 Labetalol HCl [Normodyne -] 300 mg PO BID #180 tablet 07/09/18 Lisinopril [Prinivil] 40 mg PO DAILY #60 tablet 07/09/18 Sennosides [Senna -] 1 tab PO BID #60 tablet 07/09/18 Family Disease History - Family Disease History Family Disease History: Diabetes: Father (did not know him), Mother (did not know him), Sister, Other: Mother, Son (4, healthy), Daughter (4, healthy) Other Family History: Non family history of colon cancer that he is aware of Review of Systems - Review of Systems Constitutional: reports: No Symptoms Eyes: reports: No Symptoms HENT: reports: No Symptoms Neck: reports: No Symptoms Cardiovascular: reports: No Symptoms Gastrointestinal: reports: No Symptoms Genitourinary: reports: No Symptoms Breasts: reports: No Symptoms Reported Musculoskeletal: reports: No Symptoms Integumentary: reports: No Symptoms Neurological: reports: No Symptoms Endocrine: reports: No Symptoms Hematology/Lymphatic: reports: No Symptoms Psychiatric: reports: No Symptoms Vital Signs: Vital Signs Temperature 98.3 F 07/18/18 08:10 Pulse Rate 58 L 07/18/18 11:20 Respiratory Rate 18 07/18/18 08:10 Blood Pressure 140/57 L 07/18/18 11:20 O2 Sat by Pulse Oximetry (%) 94 L 07/17/18 21:00 Constitutional: Yes: Well Nourished, No Distress, Calm Eyes: Yes: WNL, Conjunctiva Clear, EOM Intact HENT: Yes: WNL, Atraumatic, Normocephalic Neck: Yes: WNL, Supple, Trachea Midline Respiratory: Yes: WNL, Regular, CTA Bilaterally Gastrointestinal: Yes: WNL, Normal Bowel Sounds Renal/: Yes: WNL Cardiovascular: Yes: WNL, Regular Rate and Rhythm Heart Sounds: Yes: S1, S2 Musculoskeletal: Yes: WNL Extremities: Yes: Amputation (l bka) Integumentary: Yes: WNL Neurological: Yes: WNL, Alert, Oriented ...Motor Strength: WNL Psychiatric: Yes: WNL, Alert, Oriented - Other Data Labs, Other Data: CBC, BMP 07/18/18 09:25 07/18/18 09:25 INR, PTT INR 1.13 (0.83-1.09) H 07/17/18 12:05 Imaging - Results Chest X-ray: Image Reviewed (no i/e) EKG: Image Reviewed (sr rep abn) Problem List - Problems (1) ESRD needing dialysis Code(s): N18.6 - END STAGE RENAL DISEASE; Z99.2 - DEPENDENCE ON RENAL DIALYSIS (2) Hepatitis Code(s): K75.9 - INFLAMMATORY LIVER DISEASE, UNSPECIFIED (3) Transaminitis Code(s): R74.0 - NONSPEC ELEV OF LEVELS OF TRANSAMNS & LACTIC ACID DEHYDRGNSE (4) AV fistula Code(s): I77.0 - ARTERIOVENOUS FISTULA, ACQUIRED (5) Anemia Code(s): D64.9 - ANEMIA, UNSPECIFIED Qualifiers: Vitamin B12 deficiency anemia type: other B12 deficiency (6) Congestive heart failure Code(s): I50.9 - HEART FAILURE, UNSPECIFIED (7) Diabetes Code(s): E11.9 - TYPE 2 DIABETES MELLITUS WITHOUT COMPLICATIONS Qualifiers: Diabetes mellitus type: type 2 Diabetes mellitus intermediate manager insulin use: without intermediate manager use Diabetes mellitus complication detail: with chronic kidney disease Chronic kidney disease stage: stage 5, not on chronic dialysis (8) Diabetic foot infection Code(s): E11.628 - TYPE 2 DIABETES MELLITUS WITH OTHER SKIN COMPLICATIONS; L08.9 - LOCAL INFECTION OF THE SKIN AND SUBCUTANEOUS TISSUE, UNSP (9) Diastolic CHF Code(s): I50.30 - UNSPECIFIED DIASTOLIC (CONGESTIVE) HEART FAILURE Qualifiers: Heart failure chronicity: chronic Qualified Code(s): I50.32 - Chronic diastolic (congestive) heart failure (10) ESRD (end stage renal disease) Code(s): N18.6 - END STAGE RENAL DISEASE (11) Encounter regarding vascular access for dialysis for ESRD Code(s): N18.6 - END STAGE RENAL DISEASE (12) Fistula Code(s): L98.8 - OTH DISRD OF THE SKIN AND SUBCUTANEOUS TISSUE (13) [place] cardiac risk >20% in next 10 years Code(s): Z91.89 - OTH PERSONAL RISK FACTORS, NOT ELSEWHERE CLASSIFIED (14) Gangrene Code(s): I96 - GANGRENE, NOT ELSEWHERE CLASSIFIED (15) Gangrene of toe of left foot Code(s): I96 - GANGRENE, NOT ELSEWHERE CLASSIFIED (16) Hyperkalemia Code(s): E87.5 - HYPERKALEMIA (17) Hypertension Code(s): I10 - ESSENTIAL (PRIMARY) HYPERTENSION Qualifiers: Hypertension type: essential hypertension Qualified Code(s): I10 - Essential (primary) hypertension (18) PAD (peripheral artery disease) Code(s): I73.9 - PERIPHERAL VASCULAR DISEASE, UNSPECIFIED (19) Wound infection Code(s): T14.8XXA - OTHER INJURY OF UNSPECIFIED BODY REGION, INITIAL ENCOUNTER; L08.9 - LOCAL INFECTION OF THE SKIN AND SUBCUTANEOUS TISSUE, UNSP Assessment/Plan 68 year old male with a PMH significant for ESRD, HTN, CAD, [place], PVD presented to the ED today for dialysis after he was unable to be dialyzed at his center yesterday because they did not have a Jose lift to get him into the chair. Patient recently hospitalized at [facility] from 06/05 - 07/14 for gangrenous left toes , he underwent 2 TMA's (06/11 & 06/24) with poor wound healing and eventually underwent a BKA (07/04). He completed a 27 day course of antibiotics. His stool C. Diff antigen positive and he completed a 10 day course of Vancomycin. Upon admission to the ED He was found to have significantly elevated LFTs (AST 859, ALT 274) greatly increased from 07/07/18 (AST 94, ALT 10). Plan cont medical rx and hd bp better controlled GI w/u for elevated LFTs
[2018-07-19] MEDS: hydrALAZINE HCL 50 MG TABLET (FP) PO SCH ×3 (06:27→21:57)
[2018-07-19] MEDS: DOCUSATE SODIUM 100 MG CAPSULE (FP) PO SCH ×3 (07:03→21:57)
[2018-07-19] MEDS ORDERED: SODIUM CHLORIDE 250 ML IV PRN (08:06)
[2018-07-19 08:43] LABS: HEMATOCRIT 24.7 % (35.4-49); HEMOGLOBIN 8.4 GM/dL (11.7-16.9); MCH 31.3 pg (25.7-33.7); MCHC 34.2 g/dl (32.0-35.9); MEAN CELL VOLUME 91.5 fl (80-96); MEAN PLT VOLUME 9.1 fl (7.5-11.1); PLATELET COUNT 278 K/MM3 (134-434); RBC 2.69 M/mm3 (4.00-5.60); RDW 19.9 % (11.9-15.9); WHITE BLOOD COUNT 8.2 K/mm3 (4.0-10.0)
[2018-07-19] MEDS ORDERED: EPOETIN ALFA 10,000 UNIT, EPOETIN ALFA 2,000 UNIT IVPUSH ONE (09:00)
[2018-07-19] MEDS ORDERED: IRON SUCROSE INJECTION 100 MG in SODIUM CHLORIDE 95 ML IVPB ONE (09:00)
[2018-07-19 09:14] LABS: ALBUMIN 2.1 g/dl (3.4-5.0); ALK PHOS 250 U/L (45-117); ANION GAP 10 MMOL/L (8-16); BILIRUBIN,TOTAL 0.7 mg/dL (0.2-1); BLOOD UREA NITROGEN 27 mg/dL (7-18); CALCIUM 9.9 mg/dL (8.5-10.1); CHLORIDE 96 mmol/L (98-107); CO2 31 mmol/L (21-32); CREATININE 5.3 mg/dL (0.55-1.3); GLUCOSE,RANDOM 90 mg/dL (74-106); POTASSIUM 3.8 mmol/L (3.5-5.1); SGOT/AST 594 U/L (15-37); SGPT/ALT 254 U/L (13-61); SODIUM 136 mmol/L (136-145)
--- NOTE | 2018-07-19 10:18 | PN ---
Physical Exam: SUBJECTIVE: Patient seen and examined at the bedside. s/p dialysis today. OBJECTIVE Vital Signs Period Temp Pulse Resp BP Sys/Cole Pulse Ox Last 24 Hr 97.8 F-98.7 F 51-66 18-22 131-176/48-76 96 ENERAL: Frail, alert, awake, lying in bed HEAD: Normal with no signs of trauma. EYES: Sclera slightly icteric, cataract to left eye, pupils equal, round and reactive to light, extraocular movements intact, conjunctiva clear. No lid lag. EARS, NOSE, THROAT: nares patent, oropharynx clear without exudates. Moist mucous membranes. NECK: Normal range of motion, supple without lymphadenopathy, JVD, or masses. LUNGS: no accessory muscle use. HEART: Regular rate and rhythm ABDOMEN: Soft, nontender, not distended, normoactive bowel sounds, no guarding, no rebound, no masses. No hepatomegaly or splenomegaly. MUSCULOSKELETAL: Normal range of motion at all joints. No bony deformities or tenderness. No CVA tenderness. UPPER EXTREMITIES: +AV fistula to left UE, 2+ pulses LOWER EXTREMITIES: Left sided BKA wrapped in gauze. 2+ pulses, warm, well- perfused. No calf tenderness. No peripheral edema. NEUROLOGICAL: No facial droop PSYCHIATRIC: Appropriate mood and affect. Laboratory Results - last 24 hr 07/17/18 07/18/18 07/19/18 16:20 09:25 06:32 WBC RBC Hgb Hct MCV MCH MCHC RDW Plt Count MPV Sodium 138 Potassium 3.5 Chloride 97 L Carbon Dioxide 30 Anion Gap 11 BUN 20 H Creatinine 4.0 H Creat Clearance w eGFR 14.92 POC Glucometer 100 Random Glucose 86 Calcium 9.9 Total Bilirubin 0.8 AST 754 H ALT 278 H Alkaline Phosphatase 279 H Total Protein 7.3 Albumin 2.1 L Hep C Ab Diagnostic 0.1 07/19/18 07/19/18 07:00 07:00 WBC 8.2 RBC 2.69 L Hgb 8.4 L Hct 24.7 L MCV 91.5 MCH 31.3 MCHC 34.2 RDW 19.9 H Plt Count 278 MPV 9.1 Sodium 136 Potassium 3.8 Chloride 96 L Carbon Dioxide 31 Anion Gap 10 BUN 27 H Creatinine 5.3 H Creat Clearance w eGFR 10.78 POC Glucometer Random Glucose 90 Calcium 9.9 Total Bilirubin 0.7 AST 594 H ALT 254 H Alkaline Phosphatase 250 H Total Protein 7.0 Albumin 2.1 L Hep C Ab Diagnostic Active Medications Generic Name Dose Route Start Last Admin Trade Name Donna PRN Reason Stop Dose Admin Calcitriol 0.25 mcg 07/18/18 10:00 07/18/18 12:14 Rocaltrol - PO 0.25 mcg DAILY CHUCKY Administration Docusate Sodium 100 mg 07/17/18 22:00 07/19/18 07:03 Colace - PO Not Given TID CHUCKY Ferrous Sulfate 325 mg 07/17/18 17:30 07/18/18 18:12 Feosol - PO 325 mg BIDWM CHUCKY Administration Furosemide 40 mg 07/18/18 10:00 07/18/18 10:00 Lasix - PO Not Given DAILY CHUCKY Hydralazine HCl 100 mg 07/17/18 22:00 07/19/18 06:27 Apresoline - PO 100 mg TID CHUCKY Administration Labetalol HCl 300 mg 07/17/18 22:00 07/18/18 22:35 Normodyne - PO 300 mg BID CHUCKY Administration Lisinopril 40 mg 07/18/18 10:00 07/18/18 10:00 Prinivil PO Not Given DAILY CHUCKY Nifedipine 60 mg 07/17/18 22:00 07/18/18 22:35 Procardia Xl - PO 60 mg BID CHUCKY Administration Senna 1 tab 07/17/18 22:00 07/18/18 22:35 Senna - PO Not Given BID CHUCKY Sevelamer Carbonate 800 mg 07/17/18 17:30 07/18/18 18:11 Renvela - PO 800 mg TIDCM CHUCKY Administration ASSESSMENT/PLAN: Patient is a 68 year old male with a PMH significant for ESRD, HTN, CAD, [place], PVD , acute/subacute hemmoragic stroke (06/2018) who presented to the ED on 2017 for dialysis after he was unable to be dialyzed at his center yesterday b/ c they did not have the sling for the Jose lift. He was found to have significantly elevated LFTs. Admitted for dialysis and and hepatic work up. Renal: ESRD. chronic. dialysis unable to be performed outpatient due to issues with jose lift at center. Had dialysis inpatient today,then to restart his MWF schedule per renal. continue Renal diet. monitor labs Card: Hypertensive urgency: elevated BP with recent stroke. Patient to receive BP meds on HD days On lasix 40mg daily, hydralazine 100 mg TID, Nifedipine ER 60 mg BID, Labetalol 300 mg BID, Lisinopril 40 mg qd Elevated LFTs presents with elevated ast/alt on admission, now trending down slowly. Poison control contacted by previous provider as pt reports high dose/frequent tylenol use at home. per poison control, likely not acute acetaminophen tox as liver enzymes elevations uptrending gradually. continue to trend. Statin on hold Liver u/c with ascites, and possible hepatocellular disease GI following: suspect transaminitis to reflect rhabdomyolysis with elevated alk phosphatase Recommended outpatient follow-up to discuss colonoscopy given h/o rectal bleeding rhabdo: cpk 5200>4400 Will trend daily cpk. Left leg BKA. stable cdi dressing/fernando intact. continue daily dressing per vascular. Follows with Dr. Paiz outpatient. Neuro: recent history of intracranial hemorrhage as seen on head ct 07/02/2018 Seen and evaluated by neuro, stroke likely 2/2 to elevated BPs. a/c contraindicated Heme: Anemia, chronic secondary to renal disease continue iron supplements venofer infusions per renal close monitoring of cbc with dialysis labs. fen no ivf monitor electrolytes renal diet prophy no scds a/c contraindicated Visit type - Emergency Visit Emergency Visit: Yes ED Registration Date: 07/17/18 Care time: The patient presented to the Emergency Department on the above date and was hospitalized for further evaluation of their emergent condition. - New Patient This patient is new to me today: No - Critical Care Critical Care patient: No - Discharge Referral Referred to [facility] Med P.C.: No
[2018-07-19] MEDS: FERROUS SO4 325 MG TABLET (FP) PO SCH ×2 (10:58→17:34)
[2018-07-19] MEDS: LISINOPRIL 20 MG TABLET (FP) PO SCH (10:58)
[2018-07-19] MEDS: SEVELAMER CARBONATE 800 MG TAB (FP) PO SCH ×3 (10:58→17:34)
[2018-07-19] MEDS: SENNOSIDES 8.6MG TABLET (FP) PO SCH ×3 (10:59→21:57)
[2018-07-19] MEDS: NIFEdipine E.R 60 MG TABLET (UD) PO SCH ×2 (11:00→21:56)
[2018-07-19] MEDS: CALCITRIOL 0.25 MCG CAPSULE (FP) PO SCH (11:00)
[2018-07-19] MEDS: LABETALOL HCL 100 MG TABLET (FP) PO SCH ×2 (11:00→21:57)
[2018-07-19] MEDS: FUROSEMIDE 40 MG TABLET (FP) PO SCH (11:00)
[2018-07-19 11:12] LABS: CREATININE 1.8 mg/dL (0.55-1.3)
--- NOTE | 2018-07-19 12:17 | PN ---
Progress Note (short form) - Note Progress Note: RENAL pt is awake and alert Had HD earlier today denies complaints Last Vital Signs Temp Pulse Resp BP Pulse Ox 97.8 F 62 18 165/77 96 07/19/18 06:45 07/19/18 10:23 07/19/18 10:23 07/19/18 10:23 07/18/18 21:00 lungs clear cvs s1s2 rr abd soft ext s/p left aka neuro a+ox3 CBC, BMP 07/19/18 07:00 07/19/18 09:50 Current Medications Generic Name Dose Route Start Last Admin Trade Name Freq PRN Reason Stop Dose Admin Calcitriol 0.25 mcg 07/18/18 10:00 07/19/18 11:00 Rocaltrol - PO 0.25 mcg DAILY CHUCKY Administration Docusate Sodium 100 mg 07/17/18 22:00 07/19/18 07:03 Colace - PO Not Given TID CHUCKY Ferrous Sulfate 325 mg 07/17/18 17:30 07/19/18 10:58 Feosol - PO 325 mg BIDWM CHUCKY Administration Furosemide 40 mg 07/18/18 10:00 07/19/18 11:00 Lasix - PO 40 mg DAILY CHUCKY Administration Hydralazine HCl 100 mg 07/17/18 22:00 07/19/18 06:27 Apresoline - PO 100 mg TID CHUCKY Administration Labetalol HCl 300 mg 07/17/18 22:00 07/19/18 11:00 Normodyne - PO 300 mg BID CHUCKY Administration Lisinopril 40 mg 07/18/18 10:00 07/19/18 10:58 Prinivil PO 40 mg DAILY CHUCKY Administration Nifedipine 60 mg 07/17/18 22:00 07/19/18 11:00 Procardia Xl - PO 60 mg BID CHUCKY Administration Senna 1 tab 07/17/18 22:00 07/19/18 10:59 Senna - PO 1 tab BID CHUCKY Administration Sevelamer Carbonate 800 mg 07/17/18 17:30 07/19/18 10:58 Renvela - PO 800 mg TIDCM CHUCKY Administration Impression 1. ESRD on HD 2. anemia 3. DM 4. HTN 5. toe infection/gangrene 6. PVD 7. s/p BKA 8. type 4 cavernous malformation 9. transaminitis 10. anemia Plan already had hd and tolerated it well continue current management MV
[2018-07-19] MEDS ORDERED: EPOETIN ALFA 2,000 UNIT/1 ML VIAL IVPUSH ONE (12:33)
[2018-07-20] MEDS: DOCUSATE SODIUM 100 MG CAPSULE (FP) PO SCH ×3 (06:27→22:32)
[2018-07-20] MEDS: hydrALAZINE HCL 50 MG TABLET (FP) PO SCH ×3 (06:29→22:31)
[2018-07-20] MEDS ORDERED: PT OWN MED DRAWER 7, Y5N ONE (08:51)
[2018-07-20] MEDS: FERROUS SO4 325 MG TABLET (FP) PO SCH ×2 (08:54→17:33)
[2018-07-20] MEDS: SEVELAMER CARBONATE 800 MG TAB (FP) PO SCH ×3 (08:54→17:32)
[2018-07-20] MEDS: LABETALOL HCL 100 MG TABLET (FP) PO SCH ×2 (09:14→22:31)
[2018-07-20] MEDS: FUROSEMIDE 40 MG TABLET (FP) PO SCH (09:14)
[2018-07-20] MEDS: LISINOPRIL 20 MG TABLET (FP) PO SCH (09:14)
[2018-07-20] MEDS: NIFEdipine E.R 60 MG TABLET (UD) PO SCH ×2 (09:14→22:31)
[2018-07-20] MEDS: SENNOSIDES 8.6MG TABLET (FP) PO SCH ×2 (09:15→22:33)
[2018-07-20 09:26] LABS: BASO % 1.1 % (0-2.0); EOS % 2.5 % (0-4.5); HEMOGLOBIN 9.6 GM/dL (11.7-16.9); LYMPH % 20.6 % (8-40); MCH 31.1 pg (25.7-33.7); MCHC 34.1 g/dl (32.0-35.9); MEAN CELL VOLUME 91.2 fl (80-96); MEAN PLT VOLUME 8.2 fl (7.5-11.1); MONO % 9.9 % (3.8-10.2); NEUT % 65.9 % (42.8-82.8); PLATELET COUNT 309 K/MM3 (134-434); RBC 3.08 M/mm3 (4.00-5.60); RDW 20.9 % (11.9-15.9); WHITE BLOOD COUNT 8.4 K/mm3 (4.0-10.0)
[2018-07-20 10:00] LABS: ALBUMIN 2.1 g/dl (3.4-5.0); ALK PHOS 268 U/L (45-117); ANION GAP 10 MMOL/L (8-16); BILIRUBIN,TOTAL 0.6 mg/dL (0.2-1); BLOOD UREA NITROGEN 15 mg/dL (7-18); CALCIUM 9.6 mg/dL (8.5-10.1); CHLORIDE 97 mmol/L (98-107); CO2 31 mmol/L (21-32); CREATININE 3.7 mg/dL (0.55-1.3); GLUCOSE,RANDOM 91 mg/dL (74-106); POTASSIUM 3.3 mmol/L (3.5-5.1); SGOT/AST 421 U/L (15-37); SGPT/ALT 222 U/L (13-61); SODIUM 139 mmol/L (136-145); TOT PROT 7.1 g/dl (6.4-8.2)
[2018-07-20 11:37] LABS: ANISOCYTOSIS 1+; MACROCYTOSIS 1+; OVALOCYTE 1+; PLATELET ESTIMATE NORMAL
[2018-07-20] MEDS: CALCITRIOL 0.25 MCG CAPSULE (FP) PO SCH (12:00)
--- NOTE | 2018-07-20 18:08 | PN ---
Physical Exam: SUBJECTIVE: Patient seen and examined at the bedside. feels good, no pain. comfortable. OBJECTIVE: Vital Signs Period Temp Pulse Resp BP Sys/Cole Pulse Ox Last 24 Hr 97.4 F-98.3 F 52-60 18-20 141-164/48-57 98 ENERAL: Frail, alert, awake, lying in bed HEAD: Normal with no signs of trauma. EYES: Sclera slightly icteric, cataract to left eye, pupils equal, round and reactive to light, extraocular movements intact, conjunctiva clear. No lid lag. EARS, NOSE, THROAT: nares patent, oropharynx clear without exudates. Moist mucous membranes. NECK: Normal range of motion, supple without lymphadenopathy, JVD, or masses. LUNGS: no accessory muscle use. HEART: Regular rate and rhythm ABDOMEN: Soft, nontender, not distended, normoactive bowel sounds, no guarding, no rebound, no masses. No hepatomegaly or splenomegaly. MUSCULOSKELETAL: Normal range of motion at all joints. No bony deformities or tenderness. No CVA tenderness. UPPER EXTREMITIES: +AV fistula to left UE, 2+ pulses LOWER EXTREMITIES: Left sided BKA wrapped in gauze. 2+ pulses, warm, well- perfused. No calf tenderness. No peripheral edema. NEUROLOGICAL: No facial droop PSYCHIATRIC: Appropriate mood and affect. Laboratory Results - last 24 hr 07/20/18 07/20/18 09:05 09:05 WBC 8.4 RBC 3.08 L Hgb 9.6 L Hct 28.0 L MCV 91.2 MCH 31.1 MCHC 34.1 RDW 20.9 H Plt Count 309 MPV 8.2 Absolute Neuts (auto) 5.5 Neutrophils % 65.9 Lymphocytes % 20.6 D Monocytes % 9.9 Eosinophils % 2.5 D Basophils % 1.1 Nucleated RBC % 0 Hypochromia 0 Platelet Estimate Normal Polychromasia 1+ Poikilocytosis 3+ Anisocytosis 1+ Microcytosis 0 Macrocytosis 1+ Ovalocytes 1+ Sodium 139 Potassium 3.3 L Chloride 97 L Carbon Dioxide 31 Anion Gap 10 BUN 15 Creatinine 3.7 H Creat Clearance w eGFR 16.32 Random Glucose 91 Calcium 9.6 Total Bilirubin 0.6 AST 421 H ALT 222 H Alkaline Phosphatase 268 H Creatine Kinase 1192 H Creatine Kinase Index 0.9 CK-MB (CK-2) 11.4 H Total Protein 7.1 Albumin 2.1 L Active Medications Generic Name Dose Route Start Last Admin Trade Name Donna PRN Reason Stop Dose Admin Calcitriol 0.25 mcg 07/18/18 10:00 07/20/18 12:00 Rocaltrol - PO 0.25 mcg DAILY CHUCKY Administration Docusate Sodium 100 mg 07/17/18 22:00 07/20/18 15:09 Colace - PO Not Given TID CHUCKY Ferrous Sulfate 325 mg 07/17/18 17:30 07/20/18 17:33 Feosol - PO 325 mg BIDWM CHUCKY Administration Furosemide 40 mg 07/18/18 10:00 07/20/18 09:14 Lasix - PO 40 mg DAILY CHUCKY Administration Hydralazine HCl 100 mg 07/17/18 22:00 07/20/18 15:09 Apresoline - PO 100 mg TID CHUCKY Administration Labetalol HCl 300 mg 07/17/18 22:00 07/20/18 09:14 Normodyne - PO 300 mg BID CHUCKY Administration Lisinopril 40 mg 07/18/18 10:00 07/20/18 09:14 Prinivil PO 40 mg DAILY CHUCKY Administration Nifedipine 60 mg 07/17/18 22:00 07/20/18 09:14 Procardia Xl - PO 60 mg BID CHUCKY Administration Senna 1 tab 07/17/18 22:00 07/20/18 09:15 Senna - PO Not Given BID CHUCKY Sevelamer Carbonate 800 mg 07/17/18 17:30 07/20/18 17:32 Renvela - PO 800 mg TIDCM CHUCKY Administration ASSESSMENT/PLAN: Patient is a 68 year old male with a PMH significant for ESRD, HTN, CAD, [place], PVD , acute/subacute hemmoragic stroke (06/2018) who presented to the ED on 2017 for dialysis after he was unable to be dialyzed at his center yesterday b/ c they did not have the sling for the Jose lift. He was found to have significantly elevated LFTs. Admitted for dialysis and and hepatic work up. Renal: ESRD. chronic. dialysis unable to be performed outpatient due to issues with jose lift at center. Had dialysis inpatient yesterday,then to restart his MWF schedule per renal. continue Renal diet. monitor labs Card: Hypertensive urgency: elevated BP with recent stroke. Patient to receive BP meds on HD days On lasix 40mg daily, hydralazine 100 mg TID, Nifedipine ER 60 mg BID, Labetalol 300 mg BID, Lisinopril 40 mg qd Elevated LFTs presents with elevated ast/alt on admission, now trending down slowly. Poison control contacted by previous provider as pt reports high dose/frequent tylenol use at home. per poison control, likely not acute acetaminophen tox as liver enzymes elevations uptrending gradually. continue to trend. Statin on hold Liver u/c with ascites, and possible hepatocellular disease GI following: suspect transaminitis to reflect rhabdomyolysis with elevated alk phosphatase Recommended outpatient follow-up to discuss colonoscopy given h/o rectal bleeding rhabdo: cpk 5200>1100 Will trend daily cpk. Left leg BKA. stable cdi dressing/fernando intact. continue daily dressing per vascular. Follows with Dr. Paiz outpatient. Neuro: recent history of intracranial hemorrhage as seen on head ct 07/02/2018 Seen and evaluated by neuro, stroke likely 2/2 to elevated BPs. a/c contraindicated Heme: Anemia, chronic secondary to renal disease continue iron supplements venofer infusions per renal close monitoring of cbc with dialysis labs. fen no ivf monitor electrolytes renal diet prophy no scds a/c contraindicated Visit type - Emergency Visit Emergency Visit: Yes ED Registration Date: 07/17/18 Care time: The patient presented to the Emergency Department on the above date and was hospitalized for further evaluation of their emergent condition. - New Patient This patient is new to me today: No - Critical Care Critical Care patient: No - Discharge Referral Referred to [facility] Med P.C.: No
[2018-07-21] MEDS: hydrALAZINE HCL 50 MG TABLET (FP) PO SCH ×3 (05:52→21:06)
[2018-07-21] MEDS: DOCUSATE SODIUM 100 MG CAPSULE (FP) PO SCH ×3 (05:52→21:00)
[2018-07-21] MEDS: SEVELAMER CARBONATE 800 MG TAB (FP) PO SCH ×3 (09:01→17:41)
[2018-07-21] MEDS: FERROUS SO4 325 MG TABLET (FP) PO SCH ×2 (09:01→17:42)
[2018-07-21] MEDS: CALCITRIOL 0.25 MCG CAPSULE (FP) PO SCH (09:24)
[2018-07-21] MEDS: FUROSEMIDE 40 MG TABLET (FP) PO SCH (09:24)
[2018-07-21] MEDS: LISINOPRIL 20 MG TABLET (FP) PO SCH (09:24)
[2018-07-21] MEDS: SENNOSIDES 8.6MG TABLET (FP) PO SCH ×2 (09:24→21:01)
[2018-07-21] MEDS: LABETALOL HCL 100 MG TABLET (FP) PO SCH ×2 (09:24→21:06)
[2018-07-21 10:07] LABS: EOS % 2.8 % (0-4.5); HEMATOCRIT 26.8 % (35.4-49); HEMOGLOBIN 9.1 GM/dL (11.7-16.9); LYMPH % 19.3 % (8-40); MCH 31.2 pg (25.7-33.7); MEAN PLT VOLUME 8.6 fl (7.5-11.1); MONO % 9.3 % (3.8-10.2); NEUT % 67.6 % (42.8-82.8); PLATELET COUNT 288 K/MM3 (134-434); RBC 2.91 M/mm3 (4.00-5.60); RDW 20.6 % (11.9-15.9); WHITE BLOOD COUNT 8.2 K/mm3 (4.0-10.0)
[2018-07-21] MEDS ORDERED: SODIUM CHLORIDE 250 ML IV PRN (10:09)
[2018-07-21] MEDS ORDERED: IRON SUCROSE INJECTION 100 MG in SODIUM CHLORIDE 95 ML IVPB ONE (10:30)
[2018-07-21] MEDS: NIFEdipine E.R 60 MG TABLET (UD) PO SCH ×2 (10:35→21:05)
[2018-07-21] MEDS ORDERED: PT OWN MED DRAWER 7, Y5N ONE ×2 (10:39→21:03)
[2018-07-21 10:53] LABS: ALBUMIN 2.2 g/dl (3.4-5.0); ALK PHOS 237 U/L (45-117); ANION GAP 9 MMOL/L (8-16); BILIRUBIN,TOTAL 0.6 mg/dL (0.2-1); BLOOD UREA NITROGEN 22 mg/dL (7-18); CHLORIDE 97 mmol/L (98-107); CO2 31 mmol/L (21-32); GLUCOSE,RANDOM 83 mg/dL (74-106); POTASSIUM 3.4 mmol/L (3.5-5.1); SGOT/AST 315 U/L (15-37); SGPT/ALT 198 U/L (13-61); SODIUM 137 mmol/L (136-145); TOT PROT 7.1 g/dl (6.4-8.2)
[2018-07-21] MEDS ORDERED: EPOETIN ALFA 10,000 UNIT/1 ML VIAL IVPUSH ONE (11:00)
--- NOTE | 2018-07-21 14:05 | PN ---
Progress Note, Physician History of Present Illness: Pt seen and examined at bedside. He is tolerating HD. He denies shortness of breath. - Current Medication List Current Medications: Active Medications Calcitriol (Rocaltrol -) 0.25 mcg PO DAILY [facility] Last Admin: 07/21/18 09:24 Dose: 0.25 mcg Docusate Sodium (Colace -) 100 mg PO TID [facility] Last Admin: 07/21/18 05:52 Dose: Not Given Ferrous Sulfate (Feosol -) 325 mg PO BIDWM [facility] Last Admin: 07/21/18 09:01 Dose: 325 mg Furosemide (Lasix -) 40 mg PO DAILY [facility] Last Admin: 07/21/18 09:24 Dose: 40 mg Hydralazine HCl (Apresoline -) 100 mg PO TID [facility] Last Admin: 07/21/18 05:52 Dose: 100 mg Sodium Chloride (Normal Saline -) 250 mls @ 3,000 mls/hr IV PRN PRN PRN Reason: Hypotension during Dialysis Stop: 07/22/18 10:08 Labetalol HCl (Normodyne -) 300 mg PO BID [facility] Last Admin: 07/21/18 09:24 Dose: 300 mg Lisinopril (Prinivil) 40 mg PO DAILY [facility] Last Admin: 07/21/18 09:24 Dose: 40 mg Nifedipine (Procardia Xl -) 60 mg PO BID [facility] Last Admin: 07/21/18 10:35 Dose: 60 mg Senna (Senna -) 1 tab PO BID [facility] Last Admin: 07/21/18 09:24 Dose: Not Given Sevelamer Carbonate (Renvela -) 800 mg PO TIDCM [facility] Last Admin: 07/21/18 12:17 Dose: Not Given - Objective Vital Signs: Vital Signs Temperature 97.9 F 07/21/18 09:00 Pulse Rate 52 L 07/21/18 12:41 Respiratory Rate 18 07/21/18 12:41 Blood Pressure 190/71 H 07/21/18 12:41 O2 Sat by Pulse Oximetry (%) 95 07/21/18 09:00 Constitutional: Yes: Calm Eyes: Yes: Conjunctiva Clear HENT: Yes: Atraumatic Neck: Yes: Supple Cardiovascular: Yes: S1, S2 Respiratory: Yes: CTA Bilaterally Gastrointestinal: Yes: Soft Genitourinary: Yes: WNL Musculoskeletal: Yes: Other (bka) Edema: No Neurological: Yes: Oriented Psychiatric: Yes: Oriented Labs: CBC, BMP 07/21/18 09:20 07/21/18 09:20 INR, PTT INR 1.13 (0.83-1.09) H 07/17/18 12:05 Problem List - Problems (1) ESRD needing dialysis Code(s): N18.6 - END STAGE RENAL DISEASE; Z99.2 - DEPENDENCE ON RENAL DIALYSIS Assessment/Plan Current Medications Generic Name Dose Route Start Last Admin Trade Name Freq PRN Reason Stop Dose Admin Calcitriol 0.25 mcg 07/18/18 10:00 07/21/18 09:24 Rocaltrol - PO 0.25 mcg DAILY CHUCKY Administration Docusate Sodium 100 mg 07/17/18 22:00 07/21/18 05:52 Colace - PO Not Given TID CHUCKY Ferrous Sulfate 325 mg 07/17/18 17:30 07/21/18 09:01 Feosol - PO 325 mg BIDWM CHUCKY Administration Furosemide 40 mg 07/18/18 10:00 07/21/18 09:24 Lasix - PO 40 mg DAILY CHUCKY Administration Hydralazine HCl 100 mg 07/17/18 22:00 07/21/18 05:52 Apresoline - PO 100 mg TID CHUCKY Administration Sodium Chloride 250 mls @ 3,000 mls/hr 07/21/18 10:09 Normal Saline - IV 07/22/18 10:08 PRN PRN Hypotension during Dialysis Labetalol HCl 300 mg 07/17/18 22:00 07/21/18 09:24 Normodyne - PO 300 mg BID CHUCKY Administration Lisinopril 40 mg 07/18/18 10:00 07/21/18 09:24 Prinivil PO 40 mg DAILY CHUCKY Administration Nifedipine 60 mg 07/17/18 22:00 07/21/18 10:35 Procardia Xl - PO 60 mg BID CHUCKY Administration Senna 1 tab 07/17/18 22:00 07/21/18 09:24 Senna - PO Not Given BID CHUCKY Sevelamer Carbonate 800 mg 07/17/18 17:30 07/21/18 12:17 Renvela - PO Not Given TIDCM CHUCKY Impression 1. ESRD on HD 2. anemia 3. DM 4. HTN 5. toe infection/gangrene 6. PVD 7. 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 transaminitis Plan - HD today, pt now back on MWF schedule - pending HD placement - repeat bp is 163/58 - bp has been labile, cont to monitor - please give bp meds on HD days, DO NOT HOLD - monitor LFTs - avf 3:00 400 abf - renal diet
--- NOTE | 2018-07-21 16:26 | PN ---
Physical Exam: SUBJECTIVE: Patient seen and examined at the bedside. OBJECTIVE: jose lift continue to be an issue and a barrier for discharge. family ordered jose lift to be delivered on 07/23, then can be discharged home. needs the jose lift for dialysis. bp elevated again today, monitor since it has been labile liver enzymes, cpk trending down. Vital Signs Period Temp Pulse Resp BP Sys/Cole Pulse Ox Last 24 Hr 97.3 F-98.4 F 50-58 16-20 134-204/42-86 95-98 GENERAL: Frail, alert, awake, lying in bed HEAD: Normal with no signs of trauma. EYES: Sclera slightly icteric, cataract to left eye, pupils equal, round and reactive to light, extraocular movements intact, conjunctiva clear. No lid lag. EARS, NOSE, THROAT: nares patent, oropharynx clear without exudates. Moist mucous membranes. NECK: Normal range of motion, supple without lymphadenopathy, JVD, or masses. LUNGS: no accessory muscle use. HEART: Regular rate and rhythm ABDOMEN: Soft, nontender, not distended, normoactive bowel sounds, no guarding, no rebound, no masses. No hepatomegaly or splenomegaly. MUSCULOSKELETAL: Normal range of motion at all joints. No bony deformities or tenderness. No CVA tenderness. UPPER EXTREMITIES: +AV fistula to left UE, 2+ pulses LOWER EXTREMITIES: Left sided BKA, fernando intact. 2+ pulses, warm, well- perfused. No calf tenderness. No peripheral edema. NEUROLOGICAL: No facial droop PSYCHIATRIC: Appropriate mood and affect. Laboratory Results - last 24 hr 07/21/18 07/21/18 09:20 09:20 WBC 8.2 RBC 2.91 L Hgb 9.1 L Hct 26.8 L MCV 92.0 MCH 31.2 MCHC 34.0 RDW 20.6 H Plt Count 288 MPV 8.6 Absolute Neuts (auto) 5.5 Neutrophils % 67.6 Lymphocytes % 19.3 Monocytes % 9.3 Eosinophils % 2.8 Basophils % 1.0 Nucleated RBC % 0 Sodium 137 Potassium 3.4 L Chloride 97 L Carbon Dioxide 31 Anion Gap 9 BUN 22 H Creatinine 5.0 H Creat Clearance w eGFR 11.53 Random Glucose 83 Calcium 10.0 Total Bilirubin 0.6 AST 315 H ALT 198 H Alkaline Phosphatase 237 H Creatine Kinase 863 H Creatine Kinase Index 1.3 CK-MB (CK-2) 11.9 H Total Protein 7.1 Albumin 2.2 L Active Medications Generic Name Dose Route Start Last Admin Trade Name Donna PRN Reason Stop Dose Admin Calcitriol 0.25 mcg 07/18/18 10:00 07/21/18 09:24 Rocaltrol - PO 0.25 mcg DAILY CHUCKY Administration Docusate Sodium 100 mg 07/17/18 22:00 07/21/18 14:07 Colace - PO Not Given TID CHUCKY Ferrous Sulfate 325 mg 07/17/18 17:30 07/21/18 09:01 Feosol - PO 325 mg BIDWM CHUCKY Administration Furosemide 40 mg 07/18/18 10:00 07/21/18 09:24 Lasix - PO 40 mg DAILY CHUCKY Administration Hydralazine HCl 100 mg 07/17/18 22:00 07/21/18 14:00 Apresoline - PO 100 mg TID CHUCKY Administration Sodium Chloride 250 mls @ 3,000 mls/hr 07/21/18 10:09 Normal Saline - IV 07/22/18 10:08 PRN PRN Hypotension during Dialysis Labetalol HCl 300 mg 07/17/18 22:00 07/21/18 09:24 Normodyne - PO 300 mg BID CHUCKY Administration Lisinopril 40 mg 07/18/18 10:00 07/21/18 09:24 Prinivil PO 40 mg DAILY CHUCKY Administration Nifedipine 60 mg 07/17/18 22:00 07/21/18 10:35 Procardia Xl - PO 60 mg BID CHUCKY Administration Senna 1 tab 07/17/18 22:00 07/21/18 09:24 Senna - PO Not Given BID CHUCYK Sevelamer Carbonate 800 mg 07/17/18 17:30 07/21/18 12:17 Renvela - PO Not Given TIDCM CHUCKY ASSESSMENT/PLAN: Patient is a 68 year old male with a PMH significant for ESRD, HTN, CAD, [place], PVD , acute/subacute hemmoragic stroke (06/2018) who presented to the ED on 2017 for dialysis after he was unable to be dialyzed at his center b/c they did not have the sling for the Jose lift. He was found to have significantly elevated LFTs and elevated CPK. Admitted for dialysis and and hepatic work up as well as awaiting for the jose lift to be delivered. Renal: ESRD. chronic. dialysis unable to be performed outpatient due to issues with jose lift at center. Had dialysis inpatient today. continue Renal diet. SW work working on the issues at patients dialysis and jose lift. Card: Hypertensive urgency: elevated BP with recent stroke. Patient to receive BP meds on HD days On lasix 40mg daily, hydralazine 100 mg TID, Nifedipine ER 60 mg BID, Labetalol 300 mg BID, Lisinopril 40 mg qd Elevated LFTs presents with elevated ast/alt on admission, now trending down slowly. Poison control contacted by previous provider as pt reports high dose/frequent tylenol use at home. per poison control, likely not acute acetaminophen tox as liver enzymes elevations uptrending gradually. Statin on hold Liver u/s with ascites, and possible hepatocellular disease GI following: suspect transaminitis to reflect rhabdomyolysis with elevated alk phosphatase Recommended outpatient follow-up to discuss colonoscopy given h/o rectal bleeding rhabdo: cpk 5200>800 Will trend daily cpk. Left leg BKA. stable cdi dressing/fernando intact. continue daily dressing per vascular. Follows with Dr. Paiz outpatient. Neuro: recent history of intracranial hemorrhage as seen on head ct 07/02/2018 Seen and evaluated by neuro, stroke likely 2/2 to elevated BPs. a/c contraindicated Heme: Anemia, chronic secondary to renal disease continue iron supplements venofer infusions per renal close monitoring of cbc with dialysis labs. fen no ivf monitor electrolytes renal diet prophy no scds a/c contraindicated Visit type - Emergency Visit Emergency Visit: Yes ED Registration Date: 07/17/18 Care time: The patient presented to the Emergency Department on the above date and was hospitalized for further evaluation of their emergent condition. - New Patient This patient is new to me today: No - Critical Care Critical Care patient: No - Discharge Referral Referred to [facility] No
[2018-07-22] MEDS: DOCUSATE SODIUM 100 MG CAPSULE (FP) PO SCH ×3 (05:49→21:04)
[2018-07-22] MEDS: hydrALAZINE HCL 50 MG TABLET (FP) PO SCH ×3 (06:12→21:04)
--- NOTE | 2018-07-22 07:59 | PROC ---
Procedure Note Procedure: Pt s/p L BKA with Dr Paiz on 07/04. Now readmitted for HD. Pt seen for staple removal. L BKA fernando removed without issue. Incision intact with scabbing throughout, scant bleeding from scab. Pt with c/o pain from staple removal due to overgrown scab. Requesting pain medication. Roxicodone 5mg x1 dose ordered.
[2018-07-22] MEDS: SEVELAMER CARBONATE 800 MG TAB (FP) PO SCH ×3 (08:22→18:32)
[2018-07-22] MEDS: FERROUS SO4 325 MG TABLET (FP) PO SCH ×2 (08:22→18:32)
[2018-07-22] MEDS: CALCITRIOL 0.25 MCG CAPSULE (FP) PO SCH (09:29)
[2018-07-22] MEDS: FUROSEMIDE 40 MG TABLET (FP) PO SCH (09:29)
[2018-07-22] MEDS: NIFEdipine E.R 60 MG TABLET (UD) PO SCH ×2 (09:29→21:04)
[2018-07-22] MEDS: LABETALOL HCL 100 MG TABLET (FP) PO SCH ×2 (09:29→21:03)
[2018-07-22] MEDS: SENNOSIDES 8.6MG TABLET (FP) PO SCH ×2 (09:29→21:02)
[2018-07-22] MEDS: ISOSORBIDE MONONITRATE 30 MG TAB.SR.24H (FP) PO SCH (09:29)
[2018-07-22] MEDS: LISINOPRIL 20 MG TABLET (FP) PO SCH (09:29)
[2018-07-22 09:41] LABS: ALBUMIN 2.3 g/dl (3.4-5.0); ALK PHOS 257 U/L (45-117); ANION GAP 11 MMOL/L (8-16); BILIRUBIN,TOTAL 0.6 mg/dL (0.2-1); BLOOD UREA NITROGEN 12 mg/dL (7-18); CALCIUM 9.9 mg/dL (8.5-10.1); CHLORIDE 96 mmol/L (98-107); CO2 31 mmol/L (21-32); CREATININE 3.5 mg/dL (0.55-1.3); GLUCOSE,RANDOM 76 mg/dL (74-106); POTASSIUM 3.4 mmol/L (3.5-5.1); SGOT/AST 264 U/L (15-37); SGPT/ALT 181 U/L (13-61); SODIUM 138 mmol/L (136-145); TOT PROT 7.5 g/dl (6.4-8.2)
--- NOTE | 2018-07-22 10:30 | PN ---
Physical Exam: SUBJECTIVE: Patient seen and examined. Had fernando out this AM uneventfully. Afebrile and hemodynamically stable. No new complaints. Jose should be delivered tomorrow and thus he should be able to be dispositioned in the AM. OBJECTIVE: Vital Signs Period Temp Pulse Resp BP Sys/Cole Pulse Ox Last 24 Hr 98.0 F-98.8 F 50-56 16-18 145-204/54-86 GENERAL: The patient is awake, alert, and fully oriented, in no acute distress. HEAD: Normal with no signs of trauma. EYES: PERRL, extraocular movements intact, sclera anicteric, conjunctiva clear. No ptosis. ENT: Ears normal, nares patent, oropharynx clear without exudates NECK: Trachea midline, full range of motion, supple. LUNGS: Breath sounds equal, clear to auscultation bilaterally, no wheezes HEART: Regular rate and rhythm, S1, S2 without murmur, rub or gallop. ABDOMEN: Soft, nontender, nondistended, normoactive bowel sounds, no guarding EXTREMITIES: 2+ pulses, warm, well-perfused, no edema. S/p amputation on L; fernando removed without any issues. NEUROLOGICAL: Cranial nerves II through XII grossly intact. Normal speech, gait not observed. PSYCH: Normal mood, normal affect. SKIN: Warm, dry, normal turgor, no rashes or lesions noted. AKA site not bandaged Laboratory Results - last 24 hr 07/21/18 07/22/18 09:20 08:40 Sodium 137 138 Potassium 3.4 L 3.4 L Chloride 97 L 96 L Carbon Dioxide 31 31 Anion Gap 9 11 BUN 22 H 12 Creatinine 5.0 H 3.5 H Creat Clearance w eGFR 11.53 17.40 Random Glucose 83 76 Calcium 10.0 9.9 Total Bilirubin 0.6 0.6 AST 315 H 264 H ALT 198 H 181 H Alkaline Phosphatase 237 H 257 H Creatine Kinase 863 H 478 H Creatine Kinase Index 1.3 1.2 CK-MB (CK-2) 11.9 H 6.1 H Total Protein 7.1 7.5 Albumin 2.2 L 2.3 L Active Medications Generic Name Dose Route Start Last Admin Trade Name Freq PRN Reason Stop Dose Admin Calcitriol 0.25 mcg 07/18/18 10:00 07/22/18 09:29 Rocaltrol - PO 0.25 mcg DAILY CHUCKY Administration Docusate Sodium 100 mg 07/17/18 22:00 07/22/18 05:49 Colace - PO Not Given TID CHUCKY Ferrous Sulfate 325 mg 07/17/18 17:30 07/22/18 08:22 Feosol - PO 325 mg BIDWM CHUCKY Administration Furosemide 40 mg 07/18/18 10:00 07/22/18 09:29 Lasix - PO 40 mg DAILY CHUCKY Administration Hydralazine HCl 100 mg 07/17/18 22:00 07/22/18 06:12 Apresoline - PO 100 mg TID CHUCKY Administration Isosorbide Mononitrate 30 mg 07/22/18 10:00 07/22/18 09:29 Imdur - PO 30 mg DAILY CHUCKY Administration Labetalol HCl 300 mg 07/17/18 22:00 07/22/18 09:29 Normodyne - PO 300 mg BID CHUCKY Administration Lisinopril 40 mg 07/18/18 10:00 07/22/18 09:29 Prinivil PO 40 mg DAILY CHUCKY Administration Nifedipine 60 mg 07/17/18 22:00 07/22/18 09:29 Procardia Xl - PO 60 mg BID CHUCKY Administration Senna 1 tab 07/17/18 22:00 07/22/18 09:29 Senna - PO Not Given BID CHUCKY Sevelamer Carbonate 800 mg 07/17/18 17:30 07/22/18 08:22 Renvela - PO 800 mg TIDCM CHUCKY Administration ASSESSMENT/PLAN: Patient is a 68 y/o HM with a PMH as documented; he presented for HD due to inability to have it done at his center without Jose. His medical supplies should be delivered tomorrow. Fernando out of his BKA site. No new issues today and doing well. 1) ESRD on HD -No changes; continue current schedule -Monitor BMP, MG, Phos -Jose delivered tomorrow, hopefully 2) HTN s/p hypertensive urgency -Continue current regimine without any changes 3) CAD s/p MA -Continue home meds aside from AC given SDH; stable. No new issues 4) Rhabdomyolosis -Resolved; no need to continue to trend CK 5) Transaminitis -Improved; check CMP in AM -Due to rhabdo 6) PVD s/p BKA -Sumner removed; stable -Continue wound care 7) S/P Hemorrhagic Stroke -Continue current meds and avoid AC; BP controlled 8) Anemia -Due to advanced renal disease; stable Overall plan is to DC patietn tomorrow once equipment available. No major changes to plan today. Check labs in AM. Code status unchanged. Visit type - Emergency Visit Emergency Visit: No - New Patient This patient is new to me today: Yes Date on this admission: 07/22/18 - Critical Care Critical Care patient: No
--- NOTE | 2018-07-22 13:03 | PN ---
Progress Note, Physician Chief Complaint: Pt A&Ox3; no chest pain, dyspnea, leg pain. History of Present Illness: 68 yo M w/ a PMHX of ESRD on HD MWF, NIDDM, HTN, PAD, s/p L JYOTI on 07/04 comes in for routine dialysis. He missed his dialysis yesterday because he could not get out of the wheelchair onto the dialysis chair, they did not have a jami lift. He was told to to buy a sling to transfer him onto the dialysis chair but was unable to get it on time. The sling will arrive in a week, hence the ED visit. He took an ambulance from the dialysis center to the ER today. 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 Ptr has wound care follow up on Jul 23 - Current Medication List Current Medications: Active Medications Calcitriol (Rocaltrol -) 0.25 mcg PO DAILY [facility] Last Admin: 07/22/18 09:29 Dose: 0.25 mcg Docusate Sodium (Colace -) 100 mg PO TID [facility] Last Admin: 07/22/18 05:49 Dose: Not Given Ferrous Sulfate (Feosol -) 325 mg PO BIDWM [facility] Last Admin: 07/22/18 08:22 Dose: 325 mg Furosemide (Lasix -) 40 mg PO DAILY [facility] Last Admin: 07/22/18 09:29 Dose: 40 mg Hydralazine HCl (Apresoline -) 100 mg PO TID [facility] Last Admin: 07/22/18 06:12 Dose: 100 mg Isosorbide Mononitrate (Imdur -) 30 mg PO DAILY [facility] Last Admin: 07/22/18 09:29 Dose: 30 mg Labetalol HCl (Normodyne -) 300 mg PO BID [facility] Last Admin: 07/22/18 09:29 Dose: 300 mg Lisinopril (Prinivil) 40 mg PO DAILY [facility] Last Admin: 07/22/18 09:29 Dose: 40 mg Nifedipine (Procardia Xl -) 60 mg PO BID [facility] Last Admin: 07/22/18 09:29 Dose: 60 mg Senna (Senna -) 1 tab PO BID [facility] Last Admin: 07/22/18 09:29 Dose: Not Given Sevelamer Carbonate (Renvela -) 800 mg PO TIDCM [facility] Last Admin: 07/22/18 08:22 Dose: 800 mg Spironolactone (Aldactone -) 25 mg PO DAILY [facility] - Objective Vital Signs: Vital Signs Temperature 98.8 F 07/22/18 06:00 Pulse Rate 56 L 07/22/18 06:00 Respiratory Rate 16 07/21/18 18:33 Blood Pressure 167/66 07/22/18 06:00 O2 Sat by Pulse Oximetry (%) 95 07/21/18 09:00 Constitutional: Yes: Calm Eyes: Yes: WNL HENT: Yes: WNL Neck: Yes: WNL Cardiovascular: Yes: WNL Respiratory: Yes: WNL Gastrointestinal: Yes: Soft ...Rectal Exam: Yes: Deferred Genitourinary: No: Anuria Musculoskeletal: Yes: Muscle Weakness Extremities: Yes: Cool, Other (left AE amputation) Edema: No Peripheral Pulses WNL: No Peripheral Pulses: Left Doralis Pedis: 1+, Right Dorsalis Pedis: 1+ Integumentary: Yes: Incision, Other Neurological: Yes: Alert, Oriented Psychiatric: Yes: Alert, Oriented Labs: CBC, BMP 07/21/18 09:20 07/22/18 08:40 INR, PTT INR 1.13 (0.83-1.09) H 07/17/18 12:05 Abnormal Lab Results 07/22/18 08:40 Potassium 3.4 L Chloride 96 L Creatinine 3.5 H AST 264 H ALT 181 H Alkaline Phosphatase 257 H Creatine Kinase 478 H CK-MB (CK-2) 6.1 H Albumin 2.3 L Problem List - Problems (1) ESRD needing dialysis Assessment/Plan: had hemodialysis yesterday; f/u labs. Code(s): N18.6 - END STAGE RENAL DISEASE; Z99.2 - DEPENDENCE ON RENAL DIALYSIS (2) Transaminitis Code(s): R74.0 - NONSPEC ELEV OF LEVELS OF TRANSAMNS & LACTIC ACID DEHYDRGNSE (3) Anemia Code(s): D64.9 - ANEMIA, UNSPECIFIED Qualifiers: Vitamin B12 deficiency anemia type: other B12 deficiency (4) Diabetes Code(s): E11.9 - TYPE 2 DIABETES MELLITUS WITHOUT COMPLICATIONS Qualifiers: Diabetes mellitus type: type 2 Diabetes mellitus senior care insulin use: without terminal clerk use Diabetes mellitus complication detail: with chronic kidney disease Chronic kidney disease stage: stage 5, not on chronic dialysis (5) [place] cardiac risk >20% in next 10 years Assessment/Plan: Stress MIBI: mild inferoapical ischemia. Code(s): Z91.89 - OTH PERSONAL RISK FACTORS, NOT ELSEWHERE CLASSIFIED (6) Gangrene of toe of left foot Code(s): I96 - GANGRENE, NOT ELSEWHERE CLASSIFIED (7) Hypertension Assessment/Plan: Systolic BP > 200 mmHg today. Add spironolactone 25-50 mg daily. F/u BUn/Cr, electrolytes, daily weight. Code(s): I10 - ESSENTIAL (PRIMARY) HYPERTENSION Qualifiers: Hypertension type: essential hypertension Qualified Code(s): I10 - Essential (primary) hypertension (8) Hypokalemia Assessment/Plan: now on spironolactone, which may retain K+. Code(s): E87.6 - HYPOKALEMIA
[2018-07-22] MEDS: SPIRONOLACTONE 25 MG TABLET (FP) PO SCH (13:29)
[2018-07-22 14:24] LABS: CHOLESTEROL 105 mg/dL (50-200); HDL CHOLESTEROL 51 mg/dL (40-60); TRIGLYCERIDES 103 mg/dL (0-150)
[2018-07-22] MEDS ORDERED: SODIUM CHLORIDE 250 ML IV PRN (15:53)
--- NOTE | 2018-07-22 15:53 | PN ---
Progress Note, Physician History of Present Illness: Pt seen and examined at bedside. He is awake and alert. His bp is elevated today. - Current Medication List Current Medications: Active Medications Calcitriol (Rocaltrol -) 0.25 mcg PO DAILY [facility] Last Admin: 07/22/18 09:29 Dose: 0.25 mcg Docusate Sodium (Colace -) 100 mg PO TID [facility] Last Admin: 07/22/18 13:38 Dose: Not Given Ferrous Sulfate (Feosol -) 325 mg PO BIDWM [facility] Last Admin: 07/22/18 08:22 Dose: 325 mg Furosemide (Lasix -) 40 mg PO DAILY [facility] Last Admin: 07/22/18 09:29 Dose: 40 mg Hydralazine HCl (Apresoline -) 100 mg PO TID [facility] Last Admin: 07/22/18 13:28 Dose: 100 mg Isosorbide Mononitrate (Imdur -) 30 mg PO DAILY [facility] Last Admin: 07/22/18 09:29 Dose: 30 mg Labetalol HCl (Normodyne -) 300 mg PO BID [facility] Last Admin: 07/22/18 09:29 Dose: 300 mg Lisinopril (Prinivil) 40 mg PO DAILY [facility] Last Admin: 07/22/18 09:29 Dose: 40 mg Nifedipine (Procardia Xl -) 60 mg PO BID [facility] Last Admin: 07/22/18 09:29 Dose: 60 mg Senna (Senna -) 1 tab PO BID [facility] Last Admin: 07/22/18 09:29 Dose: Not Given Sevelamer Carbonate (Renvela -) 800 mg PO TIDCM [facility] Last Admin: 07/22/18 13:27 Dose: 800 mg Spironolactone (Aldactone -) 25 mg PO DAILY [facility] Last Admin: 07/22/18 13:29 Dose: 25 mg - Objective Vital Signs: Vital Signs Temperature 98.6 F 07/22/18 13:31 Pulse Rate 58 L 07/22/18 13:31 Respiratory Rate 16 07/22/18 13:31 Blood Pressure 172/68 H 07/22/18 13:31 O2 Sat by Pulse Oximetry (%) 95 07/22/18 09:00 Constitutional: Yes: Calm Eyes: Yes: Conjunctiva Clear HENT: Yes: Atraumatic Cardiovascular: Yes: S1, S2 Respiratory: Yes: CTA Bilaterally Gastrointestinal: Yes: WNL Genitourinary: Yes: WNL Musculoskeletal: Yes: Other (left bka) Edema: No Neurological: Yes: Oriented Psychiatric: Yes: Oriented Labs: CBC, BMP 07/21/18 09:20 07/22/18 08:40 INR, PTT INR 1.13 (0.83-1.09) H 07/17/18 12:05 Problem List - Problems (1) ESRD needing dialysis Code(s): N18.6 - END STAGE RENAL DISEASE; Z99.2 - DEPENDENCE ON RENAL DIALYSIS Assessment/Plan Current Medications Generic Name Dose Route Start Last Admin Trade Name Freq PRN Reason Stop Dose Admin Calcitriol 0.25 mcg 07/18/18 10:00 07/22/18 09:29 Rocaltrol - PO 0.25 mcg DAILY CHUCKY Administration Docusate Sodium 100 mg 07/17/18 22:00 07/22/18 13:38 Colace - PO Not Given TID CHUCYK Ferrous Sulfate 325 mg 07/17/18 17:30 07/22/18 08:22 Feosol - PO 325 mg BIDWM CHUCKY Administration Furosemide 40 mg 07/18/18 10:00 07/22/18 09:29 Lasix - PO 40 mg DAILY CHUCKY Administration Hydralazine HCl 100 mg 07/17/18 22:00 07/22/18 13:28 Apresoline - PO 100 mg TID CHUCKY Administration Isosorbide Mononitrate 30 mg 07/22/18 10:00 07/22/18 09:29 Imdur - PO 30 mg DAILY CHUCKY Administration Labetalol HCl 300 mg 07/17/18 22:00 07/22/18 09:29 Normodyne - PO 300 mg BID CHUCKY Administration Lisinopril 40 mg 07/18/18 10:00 07/22/18 09:29 Prinivil PO 40 mg DAILY CHUCKY Administration Nifedipine 60 mg 07/17/18 22:00 07/22/18 09:29 Procardia Xl - PO 60 mg BID CHUCKY Administration Senna 1 tab 07/17/18 22:00 07/22/18 09:29 Senna - PO Not Given BID CHUCKY Sevelamer Carbonate 800 mg 07/17/18 17:30 07/22/18 13:27 Renvela - PO 800 mg TIDCM CHUCKY Administration Spironolactone 25 mg 07/22/18 13:15 11/06/18 13:29 Aldactone - PO 25 mg DAILY CHUCKY Administration Impression 1. ESRD on HD 2. anemia 3. DM 4. HTN 5. toe infection/gangrene 6. PVD 7. 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 transaminitis Plan - HD in am - cardio input appreciated - repeat bp as he just got his afternoon meds - HD in am - DO NOT HOLD BP MEDS IN AM - bp has been labile, cont to monitor - monitor LFTs - avf 3:00 400 abf - renal diet
[2018-07-23] MEDS: hydrALAZINE HCL 50 MG TABLET (FP) PO SCH ×3 (06:19→21:12)
[2018-07-23] MEDS: DOCUSATE SODIUM 100 MG CAPSULE (FP) PO SCH ×3 (06:19→21:13)
[2018-07-23] MEDS: SENNOSIDES 8.6MG TABLET (FP) PO SCH ×2 (08:00→21:13)
[2018-07-23] MEDS: SEVELAMER CARBONATE 800 MG TAB (FP) PO SCH ×3 (08:00→17:46)
[2018-07-23] MEDS: FERROUS SO4 325 MG TABLET (FP) PO SCH ×2 (08:00→17:46)
[2018-07-23 08:18] LABS: HEMATOCRIT 26.9 % (35.4-49); HEMOGLOBIN 8.7 GM/dL (11.7-16.9); MCH 30.1 pg (25.7-33.7); MCHC 32.4 g/dl (32.0-35.9); MEAN CELL VOLUME 92.8 fl (80-96); MEAN PLT VOLUME 8.1 fl (7.5-11.1); PLATELET COUNT 277 K/MM3 (134-434); RDW 22.3 % (11.9-15.9); WHITE BLOOD COUNT 8.6 K/mm3 (4.0-10.0)
[2018-07-23 08:52] LABS: ALBUMIN 2.1 g/dl (3.4-5.0); ALK PHOS 226 U/L (45-117); ANION GAP 8 MMOL/L (8-16); BILIRUBIN,TOTAL 0.6 mg/dL (0.2-1); BLOOD UREA NITROGEN 17 mg/dL (7-18); CALCIUM 9.9 mg/dL (8.5-10.1); CHLORIDE 97 mmol/L (98-107); CO2 31 mmol/L (21-32); CREATININE 4.9 mg/dL (0.55-1.3); GLUCOSE,RANDOM 85 mg/dL (74-106); MAGNESIUM 2.1 mg/dL (1.8-2.4); POTASSIUM 3.6 mmol/L (3.5-5.1); SGOT/AST 180 U/L (15-37); SGPT/ALT 144 U/L (13-61); SODIUM 136 mmol/L (136-145)
[2018-07-23] MEDS ORDERED: IRON SUCROSE INJECTION 100 MG in SODIUM CHLORIDE 95 ML IVPB ONE (09:00)
[2018-07-23] MEDS ORDERED: EPOETIN ALFA 10,000 UNIT/1 ML VIAL IVPUSH ONE (09:00)
[2018-07-23] MEDS: CALCITRIOL 0.25 MCG CAPSULE (FP) PO SCH (10:23)
[2018-07-23] MEDS: NIFEdipine E.R 60 MG TABLET (UD) PO SCH ×2 (10:23→21:13)
[2018-07-23] MEDS: LISINOPRIL 20 MG TABLET (FP) PO SCH (10:23)
[2018-07-23] MEDS: FUROSEMIDE 40 MG TABLET (FP) PO SCH (10:23)
[2018-07-23] MEDS: SPIRONOLACTONE 25 MG TABLET (FP) PO SCH (10:23)
[2018-07-23] MEDS: ISOSORBIDE MONONITRATE 30 MG TAB.SR.24H (FP) PO SCH (10:23)
[2018-07-23] MEDS: LABETALOL HCL 100 MG TABLET (FP) PO SCH ×2 (10:23→21:12)
--- NOTE | 2018-07-23 11:33 | PN ---
Progress Note, Physician History of Present Illness: Pt seen and examined at bedside. His blood pressure began to rise during HD. Called floor nurse and gave am meds. - Current Medication List Current Medications: Active Medications Calcitriol (Rocaltrol -) 0.25 mcg PO DAILY [facility] Last Admin: 07/23/18 10:23 Dose: 0.25 mcg Docusate Sodium (Colace -) 100 mg PO TID [facility] Last Admin: 07/23/18 06:19 Dose: Not Given Ferrous Sulfate (Feosol -) 325 mg PO BIDWM [facility] Last Admin: 07/22/18 18:32 Dose: 325 mg Furosemide (Lasix -) 40 mg PO DAILY [facility] Last Admin: 07/23/18 10:23 Dose: 40 mg Hydralazine HCl (Apresoline -) 100 mg PO TID [facility] Last Admin: 07/23/18 06:19 Dose: 100 mg Sodium Chloride (Normal Saline -) 250 mls @ 3,000 mls/hr IV PRN PRN PRN Reason: Hypotension during Dialysis Stop: 07/23/18 15:53 Isosorbide Mononitrate (Imdur -) 30 mg PO DAILY [facility] Last Admin: 07/23/18 10:23 Dose: 30 mg Labetalol HCl (Normodyne -) 300 mg PO BID [facility] Last Admin: 07/23/18 10:23 Dose: 300 mg Lisinopril (Prinivil) 40 mg PO DAILY [facility] Last Admin: 07/23/18 10:23 Dose: 40 mg Nifedipine (Procardia Xl -) 60 mg PO BID [facility] Last Admin: 07/23/18 10:23 Dose: 60 mg Senna (Senna -) 1 tab PO BID [facility] Last Admin: 07/22/18 21:02 Dose: Not Given Sevelamer Carbonate (Renvela -) 800 mg PO TIDCM [facility] Last Admin: 07/22/18 18:32 Dose: 800 mg Spironolactone (Aldactone -) 25 mg PO DAILY [facility] Last Admin: 07/23/18 10:23 Dose: 25 mg - Objective Vital Signs: Vital Signs Temperature 98.6 F 07/23/18 07:45 Pulse Rate 58 L 07/23/18 08:20 Respiratory Rate 18 07/23/18 08:20 Blood Pressure 156/58 L 07/23/18 08:20 O2 Sat by Pulse Oximetry (%) 95 11/06/18 21:00 Constitutional: Yes: Calm Eyes: Yes: Conjunctiva Clear HENT: Yes: Atraumatic Neck: Yes: Supple Cardiovascular: Yes: S1, S2 Respiratory: Yes: CTA Bilaterally Gastrointestinal: Yes: Soft Genitourinary: Yes: WNL Musculoskeletal: Yes: Other (left bka) Edema: No Neurological: Yes: Oriented Psychiatric: Yes: Oriented Labs: CBC, BMP 07/23/18 08:00 07/23/18 08:00 INR, PTT INR 1.13 (0.83-1.09) H 07/17/18 12:05 Problem List - Problems (1) ESRD needing dialysis Code(s): N18.6 - END STAGE RENAL DISEASE; Z99.2 - DEPENDENCE ON RENAL DIALYSIS Assessment/Plan Current Medications Generic Name Dose Route Start Last Admin Trade Name Freq PRN Reason Stop Dose Admin Calcitriol 0.25 mcg 07/18/18 10:00 07/23/18 10:23 Rocaltrol - PO 0.25 mcg DAILY [facility]UCKY Administration Docusate Sodium 100 mg 07/17/18 22:00 07/23/18 06:19 Colace - PO Not Given TID CHUCKY Ferrous Sulfate 325 mg 07/17/18 17:30 07/22/18 18:32 Feosol - PO 325 mg BIDWM CHUCKY Administration Furosemide 40 mg 07/18/18 10:00 07/23/18 10:23 Lasix - PO 40 mg DAILY [facility] Administration Hydralazine HCl 100 mg 07/17/18 22:00 07/23/18 06:19 Apresoline - PO 100 mg TID CHUCKY Administration Sodium Chloride 250 mls @ 3,000 mls/hr 07/22/18 15:53 Normal Saline - IV 07/23/18 15:53 PRN PRN Hypotension during Dialysis Isosorbide Mononitrate 30 mg 07/22/18 10:00 07/23/18 10:23 Imdur - PO 30 mg DAILY [facility] Administration Labetalol HCl 300 mg 07/17/18 22:00 07/23/18 10:23 Normodyne - PO 300 mg BID CHUCKY Administration Lisinopril 40 mg 07/18/18 10:00 07/23/18 10:23 Prinivil PO 40 mg DAILY [facility] Administration Nifedipine 60 mg 07/17/18 22:00 07/23/18 10:23 Procardia Xl - PO 60 mg BID [facility] Administration Senna 1 tab 07/17/18 22:00 07/22/18 21:02 Senna - PO Not Given BID [facility] Sevelamer Carbonate 800 mg 07/17/18 17:30 07/22/18 18:32 Renvela - PO 800 mg TIDCM [facility]UCKY Administration Spironolactone 25 mg 07/22/18 13:15 07/23/18 10:23 Aldactone - PO 25 mg DAILY [facility] Administration Impression 1. ESRD on HD 2. anemia 3. DM 4. HTN 5. toe infection/gangrene 6. PVD 7. 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 transaminitis Plan - HD today - hold epogen if bp elevated - pt will need am meds given before HD - bp has been labile, cont to monitor - monitor LFTs - avf 3:00 400 abf - renal diet
--- NOTE | 2018-07-23 16:59 | PN ---
Physical Exam: SUBJECTIVE: Patient seen and examined. Had fernando to left BKA out yesterday, no drainage from site. Afebrile and hemodynamically stable. No new complaints. Awaiting harness for Jose lift, was expecting it to be delivered to the family today so he could be discharged, now the family says it is set to arrive on Saturday. OBJECTIVE: Vital Signs Period Temp Pulse Resp BP Sys/Cole Pulse Ox Last 24 Hr 97.5 F-98.6 F 52-60 18-18 128-195/48-77 95-97 GENERAL: Asleep, says he feels tired, fully oriented, in no acute distress. HEAD: Normal with no signs of trauma. EYES: PERRL, extraocular movements intact, sclera anicteric, conjunctiva clear. No ptosis. ENT: Ears normal, nares patent, oropharynx clear without exudates, moist mucous membranes. NECK: Trachea midline, full range of motion, supple. LUNGS: Breath sounds equal, clear to auscultation bilaterally, no wheezes, no crackles, no accessory muscle use. HEART: Regular rate and rhythm, S1, S2 without murmur, rub or gallop. ABDOMEN: Soft, nontender, nondistended, normoactive bowel sounds, no guarding, no rebound, no hepatosplenomegaly, no masses. EXTREMITIES: Left BKA, no drainage to gauze or erythema or swelling, AV fistula to LUE NEUROLOGICAL: No facial droop, tongue midline. Normal speech, gait not observed. PSYCH: Normal mood, normal affect. SKIN: Warm, dry, normal turgor, no rashes or lesions noted Laboratory Results - last 24 hr 07/23/18 07/23/18 08:00 08:00 WBC 8.6 RBC 2.90 L Hgb 8.7 L Hct 26.9 L MCV 92.8 MCH 30.1 MCHC 32.4 RDW 22.3 H Plt Count 277 MPV 8.1 Sodium 136 Potassium 3.6 Chloride 97 L Carbon Dioxide 31 Anion Gap 8 BUN 17 Creatinine 4.9 H Creat Clearance w eGFR 11.80 Random Glucose 85 Calcium 9.9 Magnesium 2.1 Total Bilirubin 0.6 AST 180 H ALT 144 H Alkaline Phosphatase 226 H Total Protein 7.0 Albumin 2.1 L Active Medications Generic Name Dose Route Start Last Admin Trade Name Freq PRN Reason Stop Dose Admin Calcitriol 0.25 mcg 07/18/18 10:00 07/23/18 10:23 Rocaltrol - PO 0.25 mcg DAILY CHUCKY Administration Docusate Sodium 100 mg 07/17/18 22:00 07/23/18 13:41 Colace - PO 100 mg TID CHUCKY Administration Ferrous Sulfate 325 mg 07/17/18 17:30 07/23/18 08:00 Feosol - PO Not Given BIDWM CHUCKY Furosemide 40 mg 07/18/18 10:00 07/23/18 10:23 Lasix - PO 40 mg DAILY CHUCKY Administration Hydralazine HCl 100 mg 07/17/18 22:00 07/23/18 13:42 Apresoline - PO 100 mg TID CHUCKY Administration Isosorbide Mononitrate 30 mg 07/22/18 10:00 07/23/18 10:23 Imdur - PO 30 mg DAILY CHUCKY Administration Labetalol HCl 300 mg 07/17/18 22:00 07/23/18 10:23 Normodyne - PO 300 mg BID CHUCKY Administration Lisinopril 40 mg 07/18/18 10:00 07/23/18 10:23 Prinivil PO 40 mg DAILY CHUCKY Administration Nifedipine 60 mg 07/17/18 22:00 07/23/18 10:23 Procardia Xl - PO 60 mg BID CHUCKY Administration Senna 1 tab 07/17/18 22:00 07/23/18 08:00 Senna - PO Not Given BID CHUCKY Sevelamer Carbonate 800 mg 07/17/18 17:30 07/23/18 13:41 Renvela - PO 800 mg TIDCM CHUCKY Administration Spironolactone 25 mg 07/22/18 13:15 07/23/18 10:23 Aldactone - PO 25 mg DAILY CHUCKY Administration ASSESSMENT/PLAN: ESRD on HD -Had HD in AM, on schedule -Monitor CMP, MG, Phos -Followed by battery tester and repairer Dr. Flaherty -Alvaro Anaya if bp elevated -Renal diet -Awaiting [employer] delivery on Saturday, then ready for d/c HTN s/p hypertensive urgency BP has been labile -Systolic BP > 200 mmHg today -Seen by arc cutter plasma arc Dr. Solo -Recommended start Spironolactone 25 mg qday -Lasix 40 mg daily -Labetalol 300 mg BID -Hydralazine 100 mg TID -Lisinopril 40 mg daily -Nifedipine ER 60 mg BID -Monitor BMP -Daily weights CAD s/p MN -Stable -Isosorbide Monoinitrate 30 mg Daily Rhabdomyolosis -Resolved; no need to continue to trend CK Transaminitis -Due to rhabdo -Improving -Monitor CMP PVD s/p BKA -Stable; fernando removed yesterday -Continue daily wound care S/P Hemorrhagic Stroke -Monitor BP -Avoid AC Anemia -Stable; due to advanced renal disease -Monitor CBC Disp DC patient Saturday once equipment available. No major changes to plan today. Check labs in AM. Code status unchanged. Visit type - Emergency Visit Emergency Visit: No - New Patient This patient is new to me today: No - Critical Care Critical Care patient: No
[2018-07-24 00:11] LABS: HBSAG SCREEN Negative (Negative); HEP A AB, IGM Negative (Negative); HEP B CORE AB, TOT Positive (Negative)
[2018-07-24] MEDS: DOCUSATE SODIUM 100 MG CAPSULE (FP) PO SCH ×3 (05:52→21:48)
[2018-07-24] MEDS: hydrALAZINE HCL 50 MG TABLET (FP) PO SCH ×3 (05:53→21:45)
[2018-07-24 07:31] LABS: HEMATOCRIT 27.3 % (35.4-49); HEMOGLOBIN 8.8 GM/dL (11.7-16.9); MCH 30.4 pg (25.7-33.7); MCHC 32.4 g/dl (32.0-35.9); MEAN CELL VOLUME 93.7 fl (80-96); MEAN PLT VOLUME 7.6 fl (7.5-11.1); PLATELET COUNT 264 K/MM3 (134-434); RBC 2.91 M/mm3 (4.00-5.60); RDW 22.6 % (11.9-15.9); WHITE BLOOD COUNT 8.7 K/mm3 (4.0-10.0)
[2018-07-24 07:49] LABS: ALBUMIN 2.1 g/dl (3.4-5.0); ALK PHOS 213 U/L (45-117); ANION GAP 9 MMOL/L (8-16); BILIRUBIN,TOTAL 0.5 mg/dL (0.2-1); BLOOD UREA NITROGEN 9 mg/dL (7-18); CALCIUM 9.3 mg/dL (8.5-10.1); CHLORIDE 101 mmol/L (98-107); CO2 32 mmol/L (21-32); CREATININE 3.3 mg/dL (0.55-1.3); GLUCOSE,RANDOM 83 mg/dL (74-106); MAGNESIUM 1.8 mg/dL (1.8-2.4); PHOSPHOROUS 2.6 mg/dL (2.5-4.9); POTASSIUM 3.4 mmol/L (3.5-5.1); SGOT/AST 142 U/L (15-37); SGPT/ALT 123 U/L (13-61); SODIUM 142 mmol/L (136-145); TOT PROT 6.9 g/dl (6.4-8.2)
[2018-07-24] MEDS ORDERED: PT OWN MED DRAWER 7, Y5N ONE (08:48)
[2018-07-24] MEDS: SEVELAMER CARBONATE 800 MG TAB (FP) PO SCH ×3 (08:51→19:08)
[2018-07-24] MEDS: FERROUS SO4 325 MG TABLET (FP) PO SCH ×2 (08:51→19:08)
[2018-07-24] MEDS: SPIRONOLACTONE 25 MG TABLET (FP) PO SCH (09:34)
[2018-07-24] MEDS: CALCITRIOL 0.25 MCG CAPSULE (FP) PO SCH (09:34)
[2018-07-24] MEDS: LABETALOL HCL 100 MG TABLET (FP) PO SCH ×2 (09:34→21:44)
[2018-07-24] MEDS: LISINOPRIL 20 MG TABLET (FP) PO SCH (09:34)
[2018-07-24] MEDS: NIFEdipine E.R 60 MG TABLET (UD) PO SCH ×2 (09:34→21:45)
[2018-07-24] MEDS: FUROSEMIDE 40 MG TABLET (FP) PO SCH (09:34)
[2018-07-24] MEDS: ISOSORBIDE MONONITRATE 30 MG TAB.SR.24H (FP) PO SCH (09:34)
[2018-07-24] MEDS: SENNOSIDES 8.6MG TABLET (FP) PO SCH ×2 (09:35→21:48)
--- NOTE | 2018-07-24 15:48 | PN ---
Progress Note, Physician History of Present Illness: Pt seen and examined at bedside. He is awake and alert. He denies shortness of breath. - Current Medication List Current Medications: Active Medications Calcitriol (Rocaltrol -) 0.25 mcg PO DAILY [facility] Last Admin: 07/24/18 09:34 Dose: 0.25 mcg Docusate Sodium (Colace -) 100 mg PO TID [facility] Last Admin: 07/24/18 13:19 Dose: Not Given Ferrous Sulfate (Feosol -) 325 mg PO BIDWM [facility] Last Admin: 07/24/18 08:51 Dose: 325 mg Furosemide (Lasix -) 40 mg PO DAILY [facility] Last Admin: 07/24/18 09:34 Dose: 40 mg Hydralazine HCl (Apresoline -) 100 mg PO TID [facility] Last Admin: 07/24/18 13:16 Dose: 100 mg Isosorbide Mononitrate (Imdur -) 30 mg PO DAILY [facility] Last Admin: 07/24/18 09:34 Dose: 30 mg Labetalol HCl (Normodyne -) 300 mg PO BID [facility] Last Admin: 07/24/18 09:34 Dose: 300 mg Lisinopril (Prinivil) 40 mg PO DAILY [facility] Last Admin: 07/24/18 09:34 Dose: 40 mg Nifedipine (Procardia Xl -) 60 mg PO BID [facility] Last Admin: 07/24/18 09:34 Dose: 60 mg Senna (Senna -) 1 tab PO BID [facility] Last Admin: 07/24/18 09:35 Dose: Not Given Sevelamer Carbonate (Renvela -) 800 mg PO TIDCM [facility] Last Admin: 07/24/18 13:15 Dose: 800 mg Spironolactone (Aldactone -) 25 mg PO DAILY [facility] Last Admin: 07/24/18 09:34 Dose: 25 mg - Objective Vital Signs: Vital Signs Temperature 97.7 F 07/24/18 14:05 Pulse Rate 54 L 07/24/18 14:05 Respiratory Rate 16 07/24/18 14:05 Blood Pressure 155/60 07/24/18 14:05 O2 Sat by Pulse Oximetry (%) 97 07/23/18 09:00 Constitutional: Yes: Calm Eyes: Yes: Conjunctiva Clear HENT: Yes: Atraumatic Cardiovascular: Yes: S1, S2 Respiratory: Yes: CTA Bilaterally Gastrointestinal: Yes: Normal Bowel Sounds, Soft Genitourinary: Yes: WNL Extremities: Yes: Other (left bka) Neurological: Yes: Oriented Psychiatric: Yes: Oriented Labs: CBC, BMP 07/24/18 06:00 07/24/18 06:00 INR, PTT INR 1.13 (0.83-1.09) H 07/17/18 12:05 Problem List - Problems (1) ESRD needing dialysis Code(s): N18.6 - END STAGE RENAL DISEASE; Z99.2 - DEPENDENCE ON RENAL DIALYSIS Assessment/Plan Current Medications Generic Name Dose Route Start Last Admin Trade Name Freq PRN Reason Stop Dose Admin Calcitriol 0.25 mcg 07/18/18 10:00 07/24/18 09:34 Rocaltrol - PO 0.25 mcg DAILY CHUCKY Administration Docusate Sodium 100 mg 07/17/18 22:00 07/24/18 13:19 Colace - PO Not Given TID CHUCKY Ferrous Sulfate 325 mg 07/17/18 17:30 07/24/18 08:51 Feosol - PO 325 mg BIDWM CHUCKY Administration Furosemide 40 mg 07/18/18 10:00 07/24/18 09:34 Lasix - PO 40 mg DAILY CHUCKY Administration Hydralazine HCl 100 mg 07/17/18 22:00 07/24/18 13:16 Apresoline - PO 100 mg TID CHUCKY Administration Isosorbide Mononitrate 30 mg 07/22/18 10:00 07/24/18 09:34 Imdur - PO 30 mg DAILY CHUCKY Administration Labetalol HCl 300 mg 07/17/18 22:00 07/24/18 09:34 Normodyne - PO 300 mg BID CHUCKY Administration Lisinopril 40 mg 07/18/18 10:00 07/24/18 09:34 Prinivil PO 40 mg DAILY CHUCKY Administration Nifedipine 60 mg 07/17/18 22:00 07/24/18 09:34 Procardia Xl - PO 60 mg BID CHUCKY Administration Senna 1 tab 07/17/18 22:00 07/24/18 09:35 Senna - PO Not Given BID CHUCKY Sevelamer Carbonate 800 mg 07/17/18 17:30 07/24/18 13:15 Renvela - PO 800 mg TIDCM CHUCKY Administration Spironolactone 25 mg 07/22/18 13:15 07/24/18 09:34 Aldactone - PO 25 mg DAILY CHUCKY Administration Impression 1. ESRD on HD 2. anemia 3. DM 4. HTN 5. toe infection/gangrene 6. PVD 7. 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 transaminitis Plan - will arrange for HD in am - pending [facility] attachment for discharge - monitor bp - give am meds before HD - monitor LFTs - avf 3:00 400 abf - renal diet
[2018-07-24] MEDS ORDERED: SODIUM CHLORIDE 250 ML IV PRN (15:49)
--- NOTE | 2018-07-24 17:03 | PN ---
Physical Exam: SUBJECTIVE: Patient seen and examined Afebrile and hemodynamically stable. No new complaints. Awaiting harness for Jose lift, expecting it to be delivered tomorrow so he can be discharged, now the family says it is set to arrive on Saturday. OBJECTIVE: Vital Signs Period Temp Pulse Resp BP Sys/Cole Pulse Ox Last 24 Hr 97.7 F-98.2 F 53-54 16-18 127-161/49-60 GENERAL: Awake, alert fully oriented, in no acute distress. HEAD: Normal with no signs of trauma. EYES: PERRL, extraocular movements intact, sclera anicteric, conjunctiva clear. No ptosis. ENT: Ears normal, nares patent, oropharynx clear without exudates, moist mucous membranes. NECK: Trachea midline, full range of motion, supple. LUNGS: Breath sounds equal, clear to auscultation bilaterally, no wheezes, no crackles, no accessory muscle use. HEART: Regular rate and rhythm, S1, S2 without murmur, rub or gallop. ABDOMEN: Soft, nontender, nondistended, normoactive bowel sounds, no guarding, no rebound, no hepatosplenomegaly, no masses. EXTREMITIES: Left BKA, no drainage to gauze or erythema or swelling, AV fistula to LUE NEUROLOGICAL: No facial droop, tongue midline. Normal speech, gait not observed. PSYCH: Normal mood, normal affect. SKIN: Warm, dry, normal turgor, no rashes or lesions noted Laboratory Results - last 24 hr 07/17/18 07/24/18 07/24/18 16:20 06:00 06:00 WBC 8.7 RBC 2.91 L Hgb 8.8 L Hct 27.3 L MCV 93.7 MCH 30.4 MCHC 32.4 RDW 22.6 H Plt Count 264 MPV 7.6 Sodium 142 Potassium 3.4 L Chloride 101 Carbon Dioxide 32 Anion Gap 9 BUN 9 Creatinine 3.3 H Creat Clearance w eGFR 18.63 Random Glucose 83 Calcium 9.3 Phosphorus 2.6 Magnesium 1.8 Total Bilirubin 0.5 AST 142 H ALT 123 H Alkaline Phosphatase 213 H Total Protein 6.9 Albumin 2.1 L Hep A IgM Ab Confirm Negative Hepatitis A Ab Total Positive H Hep Bs Antigen Negative Hep Bs Antibody Reactive Hep B Core Total Ab Positive H Active Medications Generic Name Dose Route Start Last Admin Trade Name Freq PRN Reason Stop Dose Admin Calcitriol 0.25 mcg 07/18/18 10:00 07/24/18 09:34 Rocaltrol - PO 0.25 mcg DAILY CHUCKY Administration Docusate Sodium 100 mg 07/17/18 22:00 07/24/18 13:19 Colace - PO Not Given TID CHUCKY Epoetin Thomas 10,000 unit 07/25/18 15:49 Epogen - IVPUSH 07/25/18 15:50 ONCE ONE Ferrous Sulfate 325 mg 07/17/18 17:30 07/24/18 08:51 Feosol - PO 325 mg BIDWM CHUCKY Administration Furosemide 40 mg 07/18/18 10:00 07/24/18 09:34 Lasix - PO 40 mg DAILY CHUCKY Administration Hydralazine HCl 100 mg 07/17/18 22:00 07/24/18 13:16 Apresoline - PO 100 mg TID CHUCKY Administration Sodium Chloride 250 mls @ 3,000 mls/hr 07/24/18 15:49 Normal Saline - IV 07/25/18 15:49 PRN PRN Hypotension during Dialysis Iron Sucrose 100 mg/ Sodium 100 mls @ 200 mls/hr 07/25/18 15:49 Chloride IVPB 07/25/18 16:18 ONCE ONE Isosorbide Mononitrate 30 mg 07/22/18 10:00 07/24/18 09:34 Imdur - PO 30 mg DAILY CHUCKY Administration Labetalol HCl 300 mg 07/17/18 22:00 07/24/18 09:34 Normodyne - PO 300 mg BID CHUCKY Administration Lisinopril 40 mg 07/18/18 10:00 07/24/18 09:34 Prinivil PO 40 mg DAILY CHUCKY Administration Nifedipine 60 mg 07/17/18 22:00 07/24/18 09:34 Procardia Xl - PO 60 mg BID CHUCKY Administration Senna 1 tab 07/17/18 22:00 07/24/18 09:35 Senna - PO Not Given BID CHUCKY Sevelamer Carbonate 800 mg 07/17/18 17:30 07/24/18 13:15 Renvela - PO 800 mg TIDCM CHUCKY Administration Spironolactone 25 mg 07/22/18 13:15 07/24/18 09:34 Aldactone - PO 25 mg DAILY CHUCKY Administration ASSESSMENT/PLAN: ESRD on HD -Had HD in AM, on MWF schedule -Monitor CMP, MG, Phos -Followed by merchandising internship Dr. Flaherty -Hold Epogen if bp elevated -Renal diet -Awaiting Jose harness delivery on tomorrow, then ready for d/c HTN s/p hypertensive urgency BP has been labile, better today, 127-161/49-60 -Seen by ticket machine operator Dr. Solo -Spironolactone 25 mg qday -Lasix 40 mg daily -Labetalol 300 mg BID -Hydralazine 100 mg TID -Lisinopril 40 mg daily -Nifedipine ER 60 mg BID -Monitor BMP -Daily weights CAD s/p CT -Stable -Isosorbide Monoinitrate 30 mg Daily Rhabdomyolosis -Resolved; no need to continue to trend CK Transaminitis -Due to rhabdo -Improving -Monitor CMP PVD s/p BKA -Stable; fernando removed yesterday -Continue daily wound care S/P Hemorrhagic Stroke -Monitor BP -Avoid AC Anemia -Stable; due to advanced renal disease -Monitor CBC Disp DC patient Saturday once equipment available. No major changes to plan today. Check labs in AM. Code status unchanged. Visit type - Emergency Visit Emergency Visit: No - New Patient This patient is new to me today: No - Critical Care Critical Care patient: No
[2018-07-25] MEDS: hydrALAZINE HCL 50 MG TABLET (FP) PO SCH ×3 (06:28→21:05)
[2018-07-25] MEDS: DOCUSATE SODIUM 100 MG CAPSULE (FP) PO SCH ×3 (06:28→21:06)
[2018-07-25 08:27] LABS: HEMATOCRIT 26.8 % (35.4-49); HEMOGLOBIN 8.7 GM/dL (11.7-16.9); MCH 30.2 pg (25.7-33.7); MCHC 32.4 g/dl (32.0-35.9); MEAN CELL VOLUME 93.1 fl (80-96); MEAN PLT VOLUME 8.4 fl (7.5-11.1); PLATELET COUNT 257 K/MM3 (134-434); RBC 2.87 M/mm3 (4.00-5.60); RDW 22.4 % (11.9-15.9); WHITE BLOOD COUNT 8.1 K/mm3 (4.0-10.0)
[2018-07-25] MEDS ORDERED: EPOETIN ALFA 10,000 UNIT/1 ML VIAL IVPUSH ONE (08:30)
[2018-07-25] MEDS ORDERED: IRON SUCROSE INJECTION 100 MG in SODIUM CHLORIDE 95 ML IVPB ONE (08:30)
[2018-07-25 08:52] LABS: ANION GAP 8 MMOL/L (8-16); BLOOD UREA NITROGEN 15 mg/dL (7-18); CALCIUM 9.5 mg/dL (8.5-10.1); CHLORIDE 99 mmol/L (98-107); CO2 31 mmol/L (21-32); CREATININE 4.7 mg/dL (0.55-1.3); GLUCOSE,RANDOM 84 mg/dL (74-106); POTASSIUM 3.6 mmol/L (3.5-5.1); SODIUM 138 mmol/L (136-145)
[2018-07-25] MEDS: LABETALOL HCL 100 MG TABLET (FP) PO SCH ×2 (09:20→21:04)
[2018-07-25] MEDS: ISOSORBIDE MONONITRATE 30 MG TAB.SR.24H (FP) PO SCH (09:20)
[2018-07-25] MEDS: LISINOPRIL 20 MG TABLET (FP) PO SCH (09:20)
[2018-07-25] MEDS: NIFEdipine E.R 60 MG TABLET (UD) PO SCH ×2 (09:27→21:05)
[2018-07-25] MEDS: SEVELAMER CARBONATE 800 MG TAB (FP) PO SCH ×3 (10:54→17:37)
[2018-07-25] MEDS: FERROUS SO4 325 MG TABLET (FP) PO SCH ×2 (12:50→17:38)
[2018-07-25] MEDS: CALCITRIOL 0.25 MCG CAPSULE (FP) PO SCH (12:51)
[2018-07-25] MEDS: FUROSEMIDE 40 MG TABLET (FP) PO SCH (12:51)
[2018-07-25] MEDS: SPIRONOLACTONE 25 MG TABLET (FP) PO SCH (12:52)
[2018-07-25] MEDS: SENNOSIDES 8.6MG TABLET (FP) PO SCH ×2 (13:21→21:06)
[2018-07-25] MEDS ORDERED: SPIRONOLACTONE 25 MG TABLET (FP) PO SCH (14:50)
--- NOTE | 2018-07-25 14:50 | PN ---
Progress Note, Physician History of Present Illness: Pt seen and examined at bedside. He is awake and appears comfortable. He tolerated HD. - Current Medication List Current Medications: Active Medications Calcitriol (Rocaltrol -) 0.25 mcg PO DAILY [facility] Last Admin: 07/25/18 12:51 Dose: 0.25 mcg Docusate Sodium (Colace -) 100 mg PO TID [facility] Last Admin: 07/25/18 13:31 Dose: Not Given Ferrous Sulfate (Feosol -) 325 mg PO BIDWM [facility] Last Admin: 07/25/18 12:50 Dose: 325 mg Furosemide (Lasix -) 40 mg PO DAILY [facility] Last Admin: 07/25/18 12:51 Dose: 40 mg Hydralazine HCl (Apresoline -) 100 mg PO TID [facility] Last Admin: 07/25/18 06:28 Dose: 100 mg Sodium Chloride (Normal Saline -) 250 mls @ 3,000 mls/hr IV PRN PRN PRN Reason: Hypotension during Dialysis Stop: 07/25/18 15:49 Isosorbide Mononitrate (Imdur -) 30 mg PO DAILY [facility] Last Admin: 07/25/18 09:20 Dose: 30 mg Labetalol HCl (Normodyne -) 300 mg PO BID [facility] Last Admin: 07/25/18 09:20 Dose: 300 mg Lisinopril (Prinivil) 40 mg PO DAILY [facility] Last Admin: 07/25/18 09:20 Dose: 40 mg Nifedipine (Procardia Xl -) 60 mg PO BID [facility] Last Admin: 07/25/18 09:27 Dose: 60 mg Senna (Senna -) 1 tab PO BID [facility] Last Admin: 07/25/18 13:21 Dose: Not Given Sevelamer Carbonate (Renvela -) 800 mg PO TIDCM [facility] Last Admin: 07/25/18 12:50 Dose: 800 mg Spironolactone (Aldactone -) 25 mg PO DAILY [facility] Last Admin: 07/25/18 12:52 Dose: 25 mg - Objective Vital Signs: Vital Signs Temperature 98.0 F 07/25/18 06:55 Pulse Rate 52 L 07/25/18 11:00 Respiratory Rate 18 07/25/18 11:00 Blood Pressure 178/62 H 07/25/18 11:00 O2 Sat by Pulse Oximetry (%) 95 07/25/18 11:00 Constitutional: Yes: Calm Eyes: Yes: Conjunctiva Clear HENT: Yes: Atraumatic Cardiovascular: Yes: S1, S2 Respiratory: Yes: CTA Bilaterally Gastrointestinal: Yes: Normal Bowel Sounds, Soft Genitourinary: Yes: WNL Musculoskeletal: Yes: Other (left bka) Edema: No Neurological: Yes: Oriented Psychiatric: Yes: Oriented Labs: CBC, BMP 07/25/18 07:20 07/25/18 07:20 INR, PTT INR 1.13 (0.83-1.09) H 07/17/18 12:05 Problem List - Problems (1) ESRD needing dialysis Code(s): N18.6 - END STAGE RENAL DISEASE; Z99.2 - DEPENDENCE ON RENAL DIALYSIS Assessment/Plan Current Medications Generic Name Dose Route Start Last Admin Trade Name Freq PRN Reason Stop Dose Admin Calcitriol 0.25 mcg 07/18/18 10:00 07/25/18 12:51 Rocaltrol - PO 0.25 mcg DAILY CHUCKY Administration Docusate Sodium 100 mg 07/17/18 22:00 07/25/18 13:31 Colace - PO Not Given TID CHUCKY Ferrous Sulfate 325 mg 07/17/18 17:30 07/25/18 12:50 Feosol - PO 325 mg BIDWM CHUCKY Administration Furosemide 40 mg 07/18/18 10:00 07/25/18 12:51 Lasix - PO 40 mg DAILY CHUCKY Administration Hydralazine HCl 100 mg 07/17/18 22:00 07/25/18 06:28 Apresoline - PO 100 mg TID CHUCKY Administration Sodium Chloride 250 mls @ 3,000 mls/hr 07/24/18 15:49 Normal Saline - IV 07/25/18 15:49 PRN PRN Hypotension during Dialysis Isosorbide Mononitrate 30 mg 07/22/18 10:00 07/25/18 09:20 Imdur - PO 30 mg DAILY CHUCKY Administration Labetalol HCl 300 mg 07/17/18 22:00 07/25/18 09:20 Normodyne - PO 300 mg BID CHUCKY Administration Lisinopril 40 mg 07/18/18 10:00 07/25/18 09:20 Prinivil PO 40 mg DAILY CHUCKY Administration Nifedipine 60 mg 07/17/18 22:00 11/09/18 09:27 Procardia Xl - PO 60 mg BID CHUCKY Administration Senna 1 tab 07/17/18 22:00 07/25/18 13:21 Senna - PO Not Given BID CHUCKY Sevelamer Carbonate 800 mg 07/17/18 17:30 07/25/18 12:50 Renvela - PO 800 mg TIDCM CHUCKY Administration Spironolactone 25 mg 07/22/18 13:15 07/25/18 12:52 Aldactone - PO 25 mg DAILY CHUCKY Administration Impression 1. ESRD on HD 2. anemia 3. DM 4. HTN 5. toe infection/gangrene 6. PVD 7. 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 transaminitis Plan - HD today - increase aldactone to 50 mg - increase imdur to 60 mg - will need to get am meds before hd - avf 3:00 400 abf - renal diet
[2018-07-25] MEDS ORDERED: ISOSORBIDE MONONITRATE 30 MG TAB.SR.24H (FP) PO ONE (15:00)
[2018-07-25 16:30] VITALS: BMI 22.3
--- NOTE | 2018-07-25 19:39 | PN ---
Progress Note, Physician Chief Complaint: Pt A&Ox3; feels weak, and is tired of taking so many medications (had to be coaxed into taking the last two of nine pills); otherwise, no complaints. History of Present Illness: 68 yo M w/ a PMHX of ESRD on HD MWF, NIDDM, HTN, PAD, s/p L BKA on 07/04 comes in for routine dialysis. He missed his dialysis yesterday because he could not get out of the wheelchair onto the dialysis chair, they did not have a jami lift. He was told to to buy a sling to transfer him onto the dialysis chair but was unable to get it on time. The sling will arrive in a week, hence the ED visit. He took an ambulance from the dialysis center to the ER today. Dr. Rosendo Flaherty is his utility agent His last dialysis was on saturday 07/14 prior to discharge from the hospital. Ptr has wound care follow up on Jul 23 - Current Medication List Current Medications: Active Medications Calcitriol (Rocaltrol -) 0.25 mcg PO DAILY [facility] Last Admin: 07/25/18 12:51 Dose: 0.25 mcg Docusate Sodium (Colace -) 100 mg PO TID [facility] Last Admin: 07/25/18 13:31 Dose: Not Given Ferrous Sulfate (Feosol -) 325 mg PO BIDWM [facility] Last Admin: 07/25/18 17:38 Dose: 325 mg Furosemide (Lasix -) 40 mg PO DAILY [facility] Last Admin: 07/25/18 12:51 Dose: 40 mg Hydralazine HCl (Apresoline -) 100 mg PO TID [facility] Last Admin: 07/25/18 15:11 Dose: 100 mg Isosorbide Mononitrate (Imdur -) 60 mg PO DAILY [facility] Labetalol HCl (Normodyne -) 300 mg PO BID [facility] Last Admin: 07/25/18 09:20 Dose: 300 mg Lisinopril (Prinivil) 40 mg PO DAILY [facility] Last Admin: 07/25/18 09:20 Dose: 40 mg Nifedipine (Procardia Xl -) 60 mg PO BID [facility] Last Admin: 07/25/18 09:27 Dose: 60 mg Senna (Senna -) 1 tab PO BID [facility] Last Admin: 07/25/18 13:21 Dose: Not Given Sevelamer Carbonate (Renvela -) 800 mg PO TIDCM [facility] Last Admin: 07/25/18 17:37 Dose: 800 mg Spironolactone (Aldactone -) 50 mg PO DAILY [facility] - Objective Vital Signs: Vital Signs Temperature 98.0 F 07/25/18 18:00 Pulse Rate 52 L 07/25/18 18:00 Respiratory Rate 18 07/25/18 18:00 Blood Pressure 150/58 L 07/25/18 18:00 O2 Sat by Pulse Oximetry (%) 95 07/25/18 11:00 Constitutional: Yes: Calm Eyes: Yes: WNL HENT: Yes: WNL Neck: Yes: WNL Cardiovascular: Yes: Regular Rate and Rhythm Respiratory: Yes: Regular Gastrointestinal: Yes: Soft ...Rectal Exam: Yes: Deferred Genitourinary: No: Anuria Breast(s): Yes: WNL Musculoskeletal: Yes: Muscle Weakness, Other (left BKA) Extremities: Yes: Amputation Edema: No Peripheral Pulses WNL: No Peripheral Pulses: Right Dorsalis Pedis: 1+, Left Femoral: 1+ Integumentary: Yes: Incision Wound/Incision: Yes: Other (stump dry, surgical site intact) Neurological: Yes: Alert, Oriented, Weakness Psychiatric: Yes: Alert, Oriented Labs: CBC, BMP 07/25/18 07:20 07/25/18 07:20 INR, PTT INR 1.13 (0.83-1.09) H 07/17/18 12:05 Problem List - Problems (1) ESRD needing dialysis Assessment/Plan: had hemodialysis yesterday; f/u labs. Code(s): N18.6 - END STAGE RENAL DISEASE; Z99.2 - DEPENDENCE ON RENAL DIALYSIS (2) Transaminitis Code(s): R74.0 - NONSPEC ELEV OF LEVELS OF TRANSAMNS & LACTIC ACID DEHYDRGNSE (3) Anemia Code(s): D64.9 - ANEMIA, UNSPECIFIED Qualifiers: Vitamin B12 deficiency anemia type: other B12 deficiency (4) Diabetes Code(s): E11.9 - TYPE 2 DIABETES MELLITUS WITHOUT COMPLICATIONS Qualifiers: Diabetes mellitus type: type 2 Diabetes mellitus assisted insulin use: without assisted use Diabetes mellitus complication detail: with chronic kidney disease Chronic kidney disease stage: stage 5, not on chronic dialysis (5) Melba cardiac risk >20% in next 10 years Assessment/Plan: Stress MIBI: mild inferoapical ischemia. Code(s): Z91.89 - OTH PERSONAL RISK FACTORS, NOT ELSEWHERE CLASSIFIED (6) Gangrene of toe of left foot Code(s): I96 - GANGRENE, NOT ELSEWHERE CLASSIFIED (7) Hypertension Assessment/Plan: BP better-controlled with addition of spironolactone; increase dose, if needed. May also increase doses of labetolol and Imdur. Code(s): I10 - ESSENTIAL (PRIMARY) HYPERTENSION Qualifiers: Hypertension type: essential hypertension Qualified Code(s): I10 - Essential (primary) hypertension (8) Hypokalemia Assessment/Plan: now on spironolactone, which may retain K+. Keep K 4-4,5; f/u Mg. Code(s): E87.6 - HYPOKALEMIA
--- NOTE | 2018-07-25 21:11 | PN ---
Physical Exam: SUBJECTIVE: Patient seen and examined Afebrile and hemodynamically stable. No new complaints. Awaiting harness for Jose lift, expecting it to be delivered tomorrow so he can be discharged, now the family says it is set to arrive on today. Patient set to be d/laurie tomorrow. OBJECTIVE: Vital Signs Period Temp Pulse Resp BP Sys/Cole Pulse Ox Last 24 Hr 98.0 F-98.9 F 50-57 18-19 140-206/57-100 95-98 GENERAL: Awake, alert fully oriented, in no acute distress. HEAD: Normal with no signs of trauma. EYES: PERRL, extraocular movements intact, sclera anicteric, conjunctiva clear. No ptosis. ENT: Ears normal, nares patent, oropharynx clear without exudates, moist mucous membranes. NECK: Trachea midline, full range of motion, supple. LUNGS: Breath sounds equal, clear to auscultation bilaterally, no wheezes, no crackles, no accessory muscle use. HEART: Regular rate and rhythm, S1, S2 without murmur, rub or gallop. ABDOMEN: Soft, nontender, nondistended, normoactive bowel sounds, no guarding, no rebound, no hepatosplenomegaly, no masses. EXTREMITIES: Left BKA, no drainage to gauze or erythema or swelling, AV fistula to LUE NEUROLOGICAL: No facial droop, tongue midline. Normal speech, gait not observed. PSYCH: Normal mood, normal affect. SKIN: Warm, dry, normal turgor, no rashes or lesions noted Laboratory Results - last 24 hr 07/25/18 07/25/18 07:20 07:20 WBC 8.1 RBC 2.87 L Hgb 8.7 L Hct 26.8 L MCV 93.1 MCH 30.2 MCHC 32.4 RDW 22.4 H Plt Count 257 MPV 8.4 D Sodium 138 Potassium 3.6 Chloride 99 Carbon Dioxide 31 Anion Gap 8 BUN 15 Creatinine 4.7 H Creat Clearance w eGFR 12.38 Random Glucose 84 Calcium 9.5 Active Medications Generic Name Dose Route Start Last Admin Trade Name Freq PRN Reason Stop Dose Admin Calcitriol 0.25 mcg 07/18/18 10:00 07/25/18 12:51 Rocaltrol - PO 0.25 mcg DAILY CHUCKY Administration Docusate Sodium 100 mg 07/17/18 22:00 07/25/18 13:31 Colace - PO Not Given TID CHUCKY Ferrous Sulfate 325 mg 07/17/18 17:30 07/25/18 17:38 Feosol - PO 325 mg BIDWM CHUCKY Administration Furosemide 40 mg 07/18/18 10:00 07/25/18 12:51 Lasix - PO 40 mg DAILY CHUCKY Administration Hydralazine HCl 100 mg 07/17/18 22:00 07/25/18 15:11 Apresoline - PO 100 mg TID CHUCKY Administration Isosorbide Mononitrate 60 mg 07/26/18 10:00 Imdur - PO DAILY CHUCKY Labetalol HCl 300 mg 07/17/18 22:00 07/25/18 09:20 Normodyne - PO 300 mg BID CHUCKY Administration Lisinopril 40 mg 07/18/18 10:00 07/25/18 09:20 Prinivil PO 40 mg DAILY CHUCKY Administration Nifedipine 60 mg 07/17/18 22:00 07/25/18 09:27 Procardia Xl - PO 60 mg BID CHUCKY Administration Senna 1 tab 07/17/18 22:00 07/25/18 13:21 Senna - PO Not Given BID CHUCKY Sevelamer Carbonate 800 mg 07/17/18 17:30 07/25/18 17:37 Renvela - PO 800 mg TIDCM CHUCKY Administration Spironolactone 50 mg 07/25/18 14:50 Aldactone - PO DAILY CHUCKY ASSESSMENT/PLAN: ESRD on HD -Had HD in AM, on MWF schedule -Monitor CMP, MG, Phos -Followed by calender runner Dr. Flaherty -Hold Epogen if bp elevated -Renal diet -Awaiting [employer] harness delivery on tomorrow, then ready for d/c HTN s/p hypertensive urgency -BP has been labile, today, 140-206/57-100 -Seen by pearl restorer Dr. Solo -Spironolactone increased to 25 mg qday -Increase Imdur to 60 mg -Lasix 40 mg daily -Labetalol 300 mg BID -Hydralazine 100 mg TID -Lisinopril 40 mg daily -Nifedipine ER 60 mg BID -Monitor BMP -Daily weights CAD s/p NM -Stable Rhabdomyolosis -Resolved; no need to continue to trend CK Transaminitis -Due to rhabdo -Improving -Monitor CMP PVD s/p BKA -Stable -Continue daily wound care S/P Hemorrhagic Stroke -Monitor BP -Avoid AC Anemia -Stable; due to advanced renal disease -Monitor CBC Disp DC patient tomorrow once equipment available. No major changes to plan today. Check labs in AM. Code status unchanged. Visit type - Emergency Visit Emergency Visit: No - New Patient This patient is new to me today: No - Critical Care Critical Care patient: No
[2018-07-26 00:08] LABS: HBSAG SCREEN Negative (Negative); HEP A AB, IGM Negative (Negative); HEP B CORE AB, TOT Positive (Negative)
[2018-07-26] MEDS: DOCUSATE SODIUM 100 MG CAPSULE (FP) PO SCH ×2 (06:23→13:02)
[2018-07-26] MEDS: hydrALAZINE HCL 50 MG TABLET (FP) PO SCH ×2 (06:24→13:02)
[2018-07-26 09:14] LABS: HEMATOCRIT 28.5 % (35.4-49); HEMOGLOBIN 9.3 GM/dL (11.7-16.9); MCH 30.2 pg (25.7-33.7); MCHC 32.5 g/dl (32.0-35.9); MEAN CELL VOLUME 92.9 fl (80-96); MEAN PLT VOLUME 8.1 fl (7.5-11.1); PLATELET COUNT 248 K/MM3 (134-434); RBC 3.07 M/mm3 (4.00-5.60); RDW 22.7 % (11.9-15.9); WHITE BLOOD COUNT 6.7 K/mm3 (4.0-10.0)
[2018-07-26 09:34] LABS: ANION GAP 9 MMOL/L (8-16); BLOOD UREA NITROGEN 11 mg/dL (7-18); CALCIUM 9.5 mg/dL (8.5-10.1); CHLORIDE 96 mmol/L (98-107); CO2 30 mmol/L (21-32); CREATININE 3.5 mg/dL (0.55-1.3); GLUCOSE,RANDOM 91 mg/dL (74-106); POTASSIUM 3.9 mmol/L (3.5-5.1); SODIUM 135 mmol/L (136-145)
[2018-07-26] MEDS ORDERED: PT OWN MED DRAWER 7, Y5N ONE (09:49)
[2018-07-26] MEDS: SEVELAMER CARBONATE 800 MG TAB (FP) PO SCH ×2 (09:53→13:02)
[2018-07-26] MEDS: FERROUS SO4 325 MG TABLET (FP) PO SCH (09:53)
[2018-07-26] MEDS: FUROSEMIDE 40 MG TABLET (FP) PO SCH (09:54)
[2018-07-26] MEDS: LISINOPRIL 20 MG TABLET (FP) PO SCH (09:54)
[2018-07-26] MEDS: CALCITRIOL 0.25 MCG CAPSULE (FP) PO SCH (09:54)
[2018-07-26] MEDS: NIFEdipine E.R 60 MG TABLET (UD) PO SCH (09:55)
[2018-07-26] MEDS: SENNOSIDES 8.6MG TABLET (FP) PO SCH (09:55)
[2018-07-26] MEDS: LABETALOL HCL 100 MG TABLET (FP) PO SCH (09:55)
[2018-07-26] MEDS ORDERED: ISOSORBIDE MONONITRATE 30 MG TAB.SR.24H (FP) PO SCH (10:00)
--- NOTE | 2018-07-26 12:37 | DS ---
Physical Exam: SUBJECTIVE: Patient seen and examined OBJECTIVE: Vital Signs Period Temp Pulse Resp BP Sys/Cole Pulse Ox Last 24 Hr 97.6 F-98.6 F 52-54 18-18 143-188/50-60 PHYSICAL EXAM GENERAL: Awake, alert and fully oriented, lying in bed, no acute distress HEAD: Normal with no signs of trauma. EYES: L eye non-reactive s/p cataract surgery. Right eye WLN, EOMI ENT: Oropharynx clear without exudates, MMM NECK: Trachea midline, full range of motion, supple. LUNGS: Breath sounds equal, clear to auscultation bilaterally, no wheezes, no crackles, no accessory muscle use. HEART: Regular rate and rhythm, S1, S2, Systolic murmur at the LLSB ABDOMEN: Soft, nontender, nondistended, normoactive bowel sounds, no guarding EXTREMITIES: 2+ pulses, no RLE edema. Dried, clean and intact LLE external dressing over stump. Continues to heal, No active drainage or discharge, no surrounding erythema. Tenderness to palpation at staple site described as sharp , 10/10 without radiation. No tenderness at rest. Gross lower extremity sensation intact b/l NEUROLOGICAL: No facial droop, tongue midline, mormal speech. LABS Laboratory Results - last 24 hr 07/23/18 07/26/18 07/26/18 08:11 08:11 08:11 WBC 6.7 RBC 3.07 L Hgb 9.3 L Hct 28.5 L MCV 92.9 MCH 30.2 MCHC 32.5 RDW 22.7 H Plt Count 248 MPV 8.1 Sodium 135 L Potassium 3.9 Chloride 96 L Carbon Dioxide 30 Anion Gap 9 BUN 11 Creatinine 3.5 H Creat Clearance w eGFR 17.40 Random Glucose 91 Calcium 9.5 Hep A IgM Ab Confirm Negative Hepatitis A Ab Total Positive H Hep Bs Antigen Negative Hep Bs Antibody Reactive Hep B Core Total Ab Positive H CXR 07/17/18: Single view the chest reveals a large heart, unfolded aorta, fluid in the horizontal fissure and some mild central congestive changes. Similar findings were seen on 06/27/2018. There is no sign of an infiltrate. US abdomen 07/18/18: 1. Ascites. 2. Thick-walled gallbladder with biliary sludge. 3. Heterogeneous liver suspicious for hepatocellular disease. 4. Atrophic right kidney. HOSPITAL COURSE: Date of Admission:07/17/18 Date of Discharge: 07/26/18 68 year old male with a PMH significant for CAD, GA, PVD, ESRD on HD (MWF), HTN presented to the ED for dialysis after he was unable to be dialyzed at his center yesterday because they did not have a Jose lift sling to get him into the chair. Upon admission to the ED He was found to have significantly elevated LFTs (AST 859, ALT 274) greatly increased from 07/07/18 (AST 94, ALT 10). Patient recently hospitalized at [facility] from 06/05 - 07/14 for gangrenous left toes and treatment for C. diff. Transaminitis was thought to be secondary from recently resolved rhabdomylosis. His blood pressure continued to be elevated during his stay and he was evaluated by cardiology. He continued his home dose nifedipine, hydralazine, lasix, Lisinopril, Labetalol with Aldactone and Imdur added. Patient continued his MWF scheduled HD and continued on his home medications. Patient was discharged home strict instructions for wound care and to follow up with cardiology and nephrology. ESRD on HD -HD on MWF schedule -Monitor CMP, MG, Phos -Followed by cassandra architect Dr. Flaherty -Hold Epogen if bp elevated -Renal diet -Jose harness has been delivered to family HTN s/p hypertensive urgency -BP has been labile -Seen by aerial photograph interpreter Dr. Solo -Spironolactone increased to 50 mg qday -Imdur increased to to 60 mg -Lasix 40 mg daily -Labetalol 300 mg BID -Hydralazine 100 mg TID -Lisinopril 40 mg daily -Nifedipine ER 60 mg BID -Monitor BMP CAD s/p GA -Stable Rhabdomyolosis -Resolved; no need to continue to trend CK Transaminitis -Due to rhabdo -Improving -Monitor CMP PVD s/p BKA -Stable -Continue daily wound care S/P Hemorrhagic Stroke -Monitor BP -Avoid AC Anemia -Stable; due to advanced renal disease -Epogen -Monitor CBC Minutes to complete discharge: 40 Discharge Summary Reason For Visit: ESRD NEEDING DIALYSIS Current Active Problems ESRD needing dialysis (Acute) Hepatitis (Acute) Hypokalemia (Acute) Transaminitis (Acute) - Instructions Diet, Activity, Other Instructions: Mr. Anshul Landers, You were admitted to [facility] from 07/17/18 -07/26/18 for high blood pressure and hemodialysis. You were found to have elevated liver enzymes in your blood work and your blood pressure was elevated at times during your stay. You completed dialysis during your hospital stay. It is important you continue to follow up with your Quality Rn. Please call Dr. Flaherty's office to schedule follow up. You were evaluated by a aerial photograph interpreter during your stay as you had some changes in your EKG. It is very important that you follow up with you aerial photograph interpreter. Please call Dr. Solo's office to schedule follow up. Your blood pressure continued to rise during your stay. The following medications were added/started: 1. Spironolactone has been increased to 50 mg daily 2. Imdur 60 mg daily Please continue to take Hydralazine 100mg Three times a day Lasix 40mg daily Nifedipine 60mg twice a day. Please continue to monitor your blood pressure at home, Your goal BP is less than 140/90. Incidental finding on Cat scan of your brain found a bleed. PLEASE DO NOT TAKE YOUR HOME DOSE ASPIRIN OR PLAVIX. Please continue your hemodialysis on Saturday, Saturday. Continue all your other medications as prescribed. Please return to the ER if you have any signs or symptoms of chest pain, shortness of breath, uncontrollable fever, chills, nausea, vomiting, numbness, tingling, or weakness in any part of your body, changes in vision, or slurred speech. Please return to the ER if symptoms persist, worsen, or new symptoms arise. [facility] @ [facility] [phone] Referrals: Danyell Flaherty MD [Staff Physician] - 1 Week Isiah Solo MD [Staff Physician] - 1 Month Kb Leonardo MD [Primary Care Provider] - 1 Week - Home Medications Comprehensive Discharge Medication List: Ambulatory Orders Calcitriol [Calcitriol -] 0.25 mcg PO DAILY #30 capsule 05/27/18 Furosemide [Lasix -] 40 mg PO DAILY #30 tablet 05/27/18 Docusate Sodium [Colace -] 100 mg PO TID #90 capsule 07/09/18 Ferrous Sulfate [Feosol] 325 mg PO BID #60 ud 07/09/18 Sennosides [Senna -] 1 tab PO BID #60 tablet 07/09/18 Atorvastatin Ca [Lipitor] 80 mg PO HS #30 tablet 07/26/18 Docusate Sodium [Colace -] 100 mg PO TID capsule 07/26/18 Hydralazine HCl 100 mg PO TID #90 tablet 07/26/18 Isosorbide Mononitrate [Imdur -] 2 tab PO DAILY 30 Days #60 tab.sr.24h 07/26/18 Labetalol HCl [Normodyne -] 300 mg PO BID #180 tablet 07/26/18 Lisinopril [Prinivil] 40 mg PO DAILY #60 tablet 07/26/18 Nifedipine ER [Procardia XL -] 60 mg PO BID #60 tab.er.24 07/26/18 Sevelamer HCl [Renagel] 800 mg PO TID 30 Days #90 tablet 07/26/18 Spironolactone [Aldactone -] 2 tab PO DAILY 30 Days #60 tablet 07/26/18 This patient is new to me today: No Emergency Visit: No Critical Care patient: No - Discharge Referral Referred to [facility] No
[2018-07-26 14:46] VITALS: BP 144/53; PULSE 52; TEMP 98.1
--- NOTE | 2018-07-26 15:54 | PN ---
Progress Note, Physician History of Present Illness: Pt seen and examined at bedside. He is awake and alert. He denies shortness of breath. He is eager to go home. - Current Medication List Current Medications: Active Medications Calcitriol (Rocaltrol -) 0.25 mcg PO DAILY [facility] Last Admin: 07/26/18 09:54 Dose: 0.25 mcg Docusate Sodium (Colace -) 100 mg PO TID [facility] Last Admin: 07/26/18 13:02 Dose: Not Given Ferrous Sulfate (Feosol -) 325 mg PO BIDWM [facility] Last Admin: 07/26/18 09:53 Dose: 325 mg Furosemide (Lasix -) 40 mg PO DAILY [facility] Last Admin: 07/26/18 09:54 Dose: 40 mg Hydralazine HCl (Apresoline -) 100 mg PO TID [facility] Last Admin: 07/26/18 13:02 Dose: 100 mg Isosorbide Mononitrate (Imdur -) 60 mg PO DAILY [facility] Last Admin: 07/26/18 09:53 Dose: 60 mg Labetalol HCl (Normodyne -) 300 mg PO BID [facility] Last Admin: 07/26/18 09:55 Dose: 300 mg Lisinopril (Prinivil) 40 mg PO DAILY [facility] Last Admin: 07/26/18 09:54 Dose: 40 mg Nifedipine (Procardia Xl -) 60 mg PO BID [facility] Last Admin: 07/26/18 09:55 Dose: 60 mg Senna (Senna -) 1 tab PO BID [facility] Last Admin: 07/26/18 09:55 Dose: Not Given Sevelamer Carbonate (Renvela -) 800 mg PO TIDCM [facility] Last Admin: 07/26/18 13:02 Dose: 800 mg Spironolactone (Aldactone -) 50 mg PO DAILY [facility] Last Admin: 07/26/18 09:54 Dose: 50 mg - Objective Vital Signs: Vital Signs Temperature 98.1 F 07/26/18 14:45 Pulse Rate 52 L 07/26/18 14:45 Respiratory Rate 18 07/26/18 14:45 Blood Pressure 144/53 L 07/26/18 14:45 O2 Sat by Pulse Oximetry (%) 95 07/25/18 11:00 Constitutional: Yes: Calm Eyes: Yes: Conjunctiva Clear HENT: Yes: Atraumatic Neck: Yes: Supple Cardiovascular: Yes: S1, S2 Respiratory: Yes: CTA Bilaterally Gastrointestinal: Yes: Normal Bowel Sounds, Soft Genitourinary: Yes: WNL Musculoskeletal: Yes: Other (left bka) Neurological: Yes: Oriented Labs: CBC, BMP 07/26/18 08:11 07/26/18 08:11 INR, PTT INR 1.13 (0.83-1.09) H 07/17/18 12:05 Problem List - Problems (1) ESRD needing dialysis Code(s): N18.6 - END STAGE RENAL DISEASE; Z99.2 - DEPENDENCE ON RENAL DIALYSIS Assessment/Plan Current Medications Generic Name Dose Route Start Last Admin Trade Name Freq PRN Reason Stop Dose Admin Calcitriol 0.25 mcg 07/18/18 10:00 07/26/18 09:54 Rocaltrol - PO 0.25 mcg DAILY CHUCKY Administration Docusate Sodium 100 mg 07/17/18 22:00 07/26/18 13:02 Colace - PO Not Given TID CHUCKY Ferrous Sulfate 325 mg 07/17/18 17:30 07/26/18 09:53 Feosol - PO 325 mg BIDWM CHUCKY Administration Furosemide 40 mg 07/18/18 10:00 07/26/18 09:54 Lasix - PO 40 mg DAILY CHUCKY Administration Hydralazine HCl 100 mg 07/17/18 22:00 07/26/18 13:02 Apresoline - PO 100 mg TID CHUCKY Administration Isosorbide Mononitrate 60 mg 07/26/18 10:00 07/26/18 09:53 Imdur - PO 60 mg DAILY CHUCKY Administration Labetalol HCl 300 mg 07/17/18 22:00 07/26/18 09:55 Normodyne - PO 300 mg BID CHUCKY Administration Lisinopril 40 mg 07/18/18 10:00 07/26/18 09:54 Prinivil PO 40 mg DAILY CHUCKY Administration Nifedipine 60 mg 07/17/18 22:00 07/26/18 09:55 Procardia Xl - PO 60 mg BID CHUCKY Administration Senna 1 tab 07/17/18 22:00 07/26/18 09:55 Senna - PO Not Given BID CHUCKY Sevelamer Carbonate 800 mg 07/17/18 17:30 07/26/18 13:02 Renvela - PO 800 mg TIDCM CHUCKY Administration Spironolactone 50 mg 07/25/18 14:50 07/26/18 09:54 Aldactone - PO 50 mg DAILY CHUCKY Administration Impression 1. ESRD on HD 2. anemia 3. DM 4. HTN 5. toe infection/gangrene 6. PVD 7. 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 transaminitis Plan - pt tolerated HD yesterday - he has HD set up as outpt - please discharge with new meds - discussed compliance with bp meds with pt and his - avf 3:00 400 abf - renal diet
== END 2018-07-26 15:53 | disposition home or self-care (01) | DRG 194 ==
LOC: JER 11:16 → JERBED 14:23 → J5S 18:17
PROVIDERS: ADMIT Internal Medicine; ATTEND Nurse Practitioner Adult Health
PROC: 5A1D70Z Performance of Urinary Filtration, Intermittent, Less than 6 Hours Per Day (ICD-10-PCS; principal; 2018-07-17)
DX: I13.2 Hypertensive heart and chronic kidney disease with heart failure and with stage 5 chronic kidney disease, or end stage renal disease (principal); N18.6 End stage renal disease; E11.22 Type 2 diabetes mellitus with diabetic chronic kidney disease; I50.32 Chronic diastolic (congestive) heart failure; E11.51 Type 2 diabetes mellitus with diabetic peripheral angiopathy without gangrene; R18.8 Other ascites; E87.5 Hyperkalemia; I16.0 Hypertensive urgency; M62.82 Rhabdomyolysis; K59.00 Constipation, unspecified; I25.2 Old myocardial infarction; R74.0 Nonspecific elevation of levels of transaminase and lactic acid dehydrogenase [LDH]; K75.9 Inflammatory liver disease, unspecified; Z99.2 Dependence on renal dialysis; Z89.512 Acquired absence of left leg below knee; I25.10 Atherosclerotic heart disease of native coronary artery without angina pectoris; Z86.73 Personal history of transient ischemic attack (TIA), and cerebral infarction without residual deficits; D63.1 Anemia in chronic kidney disease; E87.6 Hypokalemia
CPT/HCPCS: 36415; 71045-TC-FY; 76705-TC; 80048; 80053; 80061; 80307; 82550; 82553; 82565; 82962; 83690; 83721; 83735; 84100; 84520; 85025; 85027; 85610; 86704; 86706; 86708; 86803; 86850; 86900; 86901; 87340; 93005; 93010; 97116-GP; 97162-GP; 99283-25; J0885; J1644; J1756

== ENCOUNTER 2019-02-20 12:57 | Emergency (ER) | payer OTHER | END 2019-02-20 15:54 | disposition home or self-care (01) | LOC: JER 12:57 ==

== ENCOUNTER 2019-02-25 17:17 | Emergency (ER) | payer SELFPAY | END 2019-02-25 20:08 | disposition home or self-care (01) | LOC: JER 17:17 ==

== ENCOUNTER 2019-02-27 11:38 | Inpatient (IN) | payer OTHER ==
--- NOTE | 2019-02-27 12:27 | PDOC ---
History of Present Illness - General Chief Complaint: Wound Stated Complaint: ABCESS UNDER LT 2ND TOE Time Seen by Provider: 02/27/19 12:27 - History of Present Illness Initial Comments: 02/27/19 13:03 Vascular surgery: Dr. Paiz Nephrology: Dr. Flaherty Patient is a 68 year old male was sent by Dr. Paiz from wound care for evaluation of right second digit gangrenous foot, to admit for CTA and IV Antibiotics. As per the patient, he started noticing change in color of the second digit of the right foot x 4 months ago, then started having pain in the right foot x 15 days. Has been f/up with Dr Paiz at his clinic every 3 weeks and when he went to the clinic he was sent to the ED. Pt completed 3 hr dialysis session this morning. Denies chest pain, sob, cough, palpitation, abdominal pain, nausea, vomiting, fever, chills, rigors, sweating. Bowel habit normal. Sleep/Appetite normal. Patient was hospitalized in 07/2018 for hypertensive emergency and hospitalized at [facility] from 06/05 - 07/14 for gangrenous left toes, he underwent 2 TMA's (06/11 & 06/24) with poor wound healing and eventually underwent a BKA (07/04). 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 Allergies: NKDA PAST SURGICAL HISTORY:Left AVF 2017, Cataract surgery Social History: Smoking: Denies Alcohol: Denies. Was a heavy drinker, quit 26 years ago. Drugs: Denies Family History:Diabetes: mother, father and 1 sibling Past History - Travel Traveled outside of the country in the last 30 days: No Close contact w/someone who was outside of country & ill: No - Past Medical History Allergies/Adverse Reactions: Allergies Allergy/AdvReac Type Severity Reaction Status Date / Time piperacillin [From Zosyn] Allergy Verified 02/27/19 14:29 tazobactam [From Zosyn] Allergy Verified 02/27/19 14:29 Home Medications: Ambulatory Orders Calcitriol [Calcitriol -] 0.25 mcg PO DAILY #30 capsule 05/27/18 Furosemide [Lasix -] 40 mg PO DAILY #30 tablet 05/27/18 Ferrous Sulfate [Feosol] 325 mg PO BID #60 ud 07/09/18 Sennosides [Senna -] 1 tab PO BID #60 tablet 07/09/18 Atorvastatin Ca [Lipitor] 80 mg PO HS #30 tablet 07/26/18 Docusate Sodium [Colace -] 100 mg PO TID capsule 07/26/18 Hydralazine HCl 100 mg PO TID #90 tablet 07/26/18 Isosorbide Mononitrate [Imdur -] 2 tab PO DAILY 30 Days #60 tab.sr.24h 07/26/18 Labetalol HCl [Normodyne -] 300 mg PO BID #180 tablet 07/26/18 Lisinopril [Prinivil] 40 mg PO DAILY #60 tablet 07/26/18 Nifedipine ER [Procardia XL -] 60 mg PO BID #60 tab.er.24 07/26/18 Sevelamer HCl [Renagel] 800 mg PO TID 30 Days #90 tablet 07/26/18 Spironolactone [Aldactone -] 2 tab PO DAILY 30 Days #60 tablet 07/26/18 Acetaminophen [Tylenol .Regular Strength -] 650 mg PO Q4H PRN tablet 03/09/19 Atorvastatin Ca [Lipitor] 80 mg PO HS tablet 03/09/19 Insulin Sliding Scale [Novolog Vial Sliding Scale -] 1 vial SQ ACHS units 03/09 Isosorbide Mononitrate [Imdur -] 60 mg PO DAILY tab.sr.24h 03/09/19 Labetalol HCl [Normodyne -] 300 mg PO BID tablet 03/09/19 Vitamin B Comp W-C [Nephro-Brynn -] 1 tablet PO DAILY tablet 03/09/19 Anemia: No Asthma: No Cancer: No Cardiac Disorders: No CVA: No COPD: No CHF: No Dementia: No Diabetes: Yes Dialysis: Yes (M-W-F) GI Disorders: No Disorders: Yes (Enlarged prostate) HTN: Yes Hypercholesterolemia: Yes Liver Disease: No Seizures: No Thyroid Disease: No - Surgical History Abdominal Surgery: No Appendectomy: Yes Cardiac Surgery: No Cholecystectomy: No Lung Surgery: No Neurologic Surgery: No Orthopedic Surgery: No - Family Disease History Family Disease History: Diabetes: Father - Immunization History Immunization Up to Date: Yes - Suicide/Smoking/Psychosocial Hx Smoking History: Never smoked Have you smoked in the past 12 months: No If you are a former smoker, when did you quit?: many years ago Information on smoking cessation initiated: No Hx Alcohol Use: No Drug/Substance Use Hx: No Substance Use Type: None Hx Substance Use Treatment: No Review of Systems - Review of Systems Able to Perform ROS?: Yes Is the patient limited Upper Sorbian proficient: Yes Constitutional: Yes: See HPI HEENTM: Yes: See HPI Respiratory: Yes: See HPI Cardiac (ROS): Yes: See HPI ABD/GI: Yes: See HPI *Physical Exam - Vital Signs Last Vital Signs Temp Pulse Resp BP Pulse Ox 97.5 F L 69 16 124/73 99 02/27/19 11:44 02/27/19 11:44 02/27/19 11:44 02/27/19 11:44 02/27/19 11:44 - Physical Exam Comments: 02/27/19 13:59 General: Patient is a 69 year old male, sitting in bed, awake, alert, oriented x 3, c/o pain in the foot. HEENT: EOM intact, pallor +, no icterus. Chest: B/L lungs clear, no added sounds CVS: Regular rate and rhythm, systolic murmur Abdomen: Ascites +, soft, non tender, organomegaly couldn't be appreciated, BS + Ext: Left BKA-wound healed; Right: Blackish discoloration of the second and third digit. Pulse 1 + Sensation intact. Neuro: No facial droop. 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 was sent by Dr. Paiz from wound care for evaluation of right second digit gangrenous foot, to admit for CTA and IV Antibiotics. Will send CBC, CMP, ESR, Lactic acid, blood cultures EKG CTA IV Zosyn 2.25 gm, IV Vancomycin 1gm Call placed to Dr Flaherty, aware he is going for CTA. 02/27/19 15:00 Patient started having itchiness throughout the body with some redness in the skin after he got 1/2 of zosyn. Zosyn stopped, IV Benadryl given, rash and itching went away. 02/27/19 17:06 Patient's BP 200/100 mmHg on several readings, pt is asymptomatic. 02/27/19 17:08 [email or web address] called and confirmed meds: Lisinopril 20mg BID, Metoprolol 50 mg daily, Hydralazine 100mg TID, Oxycodone 5mg Q8H PRN Will give Hydralazine 100 mg and Lisinopril and recheck BP 02/27/19 17:12 [employer]. *DC/Admit/Observation/Transfer Diagnosis at time of Disposition: Abscess - Discharge Dispostion Condition at time of disposition: Improved - Referrals - Patient Instructions - Post Discharge Activity
[2019-02-27 12:45] LABS: HEMATOCRIT 28.9 % (35.4-49); MCH 34.1 pg (25.7-33.7); MCHC 34.7 g/dl (32.0-35.9); MEAN CELL VOLUME 98.2 fl (80-96); MEAN PLT VOLUME 7.4 fl (7.5-11.1); PLATELET COUNT 243 K/MM3 (134-434); RBC 2.94 M/mm3 (4.00-5.60); RDW 16.6 % (11.9-15.9); WHITE BLOOD COUNT 8.9 K/mm3 (4.0-10.0)
[2019-02-27 13:00] LABS: INR 1.08 (0.83-1.09); PROTHROMBIN TIME (PATIENT) 12.7 SEC (9.7-13.0)
[2019-02-27] MEDS ORDERED: MORPHINE SULFATE 2 MG/ML VIAL IVPUSH ONE (13:15)
[2019-02-27 13:21] LABS: ALBUMIN 3.3 g/dl (3.4-5.0); BILIRUBIN,TOTAL 0.7 mg/dL (0.2-1); BLOOD UREA NITROGEN 20.2 mg/dL (7-18); CALCIUM 8.6 mg/dL (8.5-10.1); CREATININE 2.8 mg/dL (0.55-1.3); POTASSIUM 3.8 mmol/L (3.5-5.1); TOT PROT 7.7 g/dl (6.4-8.2)
[2019-02-27] MEDS ORDERED: MORPHINE SULFATE 2 MG/ML VIAL ONE (13:26)
[2019-02-27] MEDS ORDERED: VANCOMYCIN 1 GM in D5W (PRE-DOCKED) 1,000 MG/250 ML IVPB ONE (13:50)
[2019-02-27] MEDS ORDERED: PIPERACILLIN/TAZOB 2.25 GM 2.25 GM in DEXTROSE 5%-WATER - 50 ML IVPB ONE (13:51)
[2019-02-27] MEDS ORDERED: PIPERACILLIN/TAZOB 2.25 GM 2.25 GM/50 ML BAG IVPB ONE (13:57)
--- NOTE | 2019-02-27 16:06 | PN ---
Progress Note (short form) - Note Progress Note: ID CONSULT DICTATED GANGRENE R 2ND TOE CELLULITIS R FOOT ESRD ? ZOSYN ALLERGY EMPIRIC TX [id number] / FLAGYL + VANCO X 1
--- NOTE | 2019-02-27 16:32 | CONSULT ---
Consult Consult Specialty:: Nephrology Reason for Consultation:: ESRD - History of Present Illness Chief Complaint: right second toe gangrene, sent in from wound care History of Present Illness: Pt is a 69 year old male with pmhx of esrd, pvd, left bka, anemia and htn who was sent in from wound care for evaluation of right second toe gangrene. He was sent for a CTA of the right leg. He denies fevers or chills. He has had foot pain for about two weeks. He went to HD today. He denies chest pain or shortness of breath. - History Source History Provided By: Patient, Medical Record - Past Medical History Cardio/Vascular: Yes: CAD, CHF, HTN, ME, Murmur, Other (PAD) Renal/: Yes: Renal Failure, Hemodialysis Endocrine: Yes: Diabetes Mellitus Dermatology: Yes: Other (maya) Additional Medical History: DM - Past Surgical History Past Surgical History: Yes: Amputation (Left BKA ), AV Fistula/Graft - Alcohol/Substance Use Hx Alcohol Use: No - Smoking History Smoking history: Never smoked Have you smoked in the past 12 months: No If you are a former smoker, when did you quit?: many years ago - Social History Usual Living Arrangement: With Significant Other ADL: Independent Home Medications - Allergies Allergies/Adverse Reactions: Allergies Allergy/AdvReac Type Severity Reaction Status Date / Time piperacillin [From Zosyn] Allergy Verified 02/27/19 14:29 tazobactam [From Zosyn] Allergy Verified 02/27/19 14:29 - Home Medications Home Medications: Ambulatory Orders Calcitriol [Calcitriol -] 0.25 mcg PO DAILY #30 capsule 05/27/18 Furosemide [Lasix -] 40 mg PO DAILY #30 tablet 05/27/18 Ferrous Sulfate [Feosol] 325 mg PO BID #60 ud 07/09/18 Sennosides [Senna -] 1 tab PO BID #60 tablet 07/09/18 Atorvastatin Ca [Lipitor] 80 mg PO HS #30 tablet 07/26/18 Docusate Sodium [Colace -] 100 mg PO TID capsule 07/26/18 Hydralazine HCl 100 mg PO TID #90 tablet 07/26/18 Isosorbide Mononitrate [Imdur -] 2 tab PO DAILY 30 Days #60 tab.sr.24h 07/26/18 Labetalol HCl [Normodyne -] 300 mg PO BID #180 tablet 07/26/18 Lisinopril [Prinivil] 40 mg PO DAILY #60 tablet 07/26/18 Nifedipine ER [Procardia XL -] 60 mg PO BID #60 tab.er.24 07/26/18 Sevelamer HCl [Renagel] 800 mg PO TID 30 Days #90 tablet 07/26/18 Spironolactone [Aldactone -] 2 tab PO DAILY 30 Days #60 tablet 07/26/18 Oxycodone HCl 5 mg PO Q8H PRN #5 tablet MDD 3 tabs 02/20/19 Family Disease History - Family Disease History Family Disease History: Diabetes: Father (did not know him), Mother (did not know him), Sister, Other: Mother, Son (4, healthy), Daughter (4, healthy) Review of Systems - Review of Systems Constitutional: reports: Malaise Eyes: reports: No Symptoms HENT: reports: No Symptoms Neck: reports: No Symptoms Cardiovascular: reports: No Symptoms Respiratory: reports: No Symptoms Gastrointestinal: reports: No Symptoms Genitourinary: reports: No Symptoms Musculoskeletal: reports: Other (right foot pain) Neurological: reports: No Symptoms Psychiatric: reports: No Symptoms Physical Exam Vital Signs: Vital Signs Temperature 98.0 F 02/27/19 11:47 Pulse Rate 73 02/27/19 11:47 Respiratory Rate 16 02/27/19 11:44 Blood Pressure 200/82 H 02/27/19 11:47 O2 Sat by Pulse Oximetry (%) 92 L 02/27/19 11:47 Constitutional: Yes: Calm Eyes: Yes: Conjunctiva Clear HENT: Yes: Atraumatic Neck: Yes: Supple Cardiovascular: Yes: S1, S2 Respiratory: Yes: CTA Bilaterally Gastrointestinal: Yes: Soft Renal/: Yes: WNL Musculoskeletal: Yes: Other (right foot second toe gangrene, left bka) Edema: No Neurological: Yes: Oriented Psychiatric: Yes: Oriented Labs: CBC, BMP 02/27/19 12:34 02/27/19 12:34 Selected Entries 02/27/19 11:44 Blood Pressure 124/73 Laboratory Tests 02/27/19 02/27/19 12:34 12:34 WBC 8.9 Hgb 10.0 L Sodium 135 L Potassium 3.8 Creatinine 2.8 H Assessment/Plan Current Medications Generic Name Dose Route Start Last Admin Trade Name Donna PRN Reason Stop Dose Admin Ceftriaxone Sodium 1 gm/ 50 mls @ 100 mls/hr 02/27/19 16:15 Dextrose IVPB Q24H CHUCKY Metronidazole 500 mg in 100 mls @ 100 mls/hr 02/27/19 16:15 02/27/19 16:28 Flagyl 500mg Premixed Ivpb - IVPB 100 mls/hr Q8H CHUCKY Administration Impression 1. ESRD on HD 2. anemia 3. DM 4. HTN 5. toe infection/gangrene 6. PVD 7. cavernous malformation Plan - resume home bp meds - pt going for cta today - will arrange for extra HD in am - vascular follow up - renal diet - pt is a MWF HD, should be back on MWF schedule next week
[2019-02-27] MEDS ORDERED: SODIUM CHLORIDE 250 ML IV PRN (16:36)
--- NOTE | 2019-02-27 16:48 | PDOC ---
Documentation entered by Colton Pereyra SCRIBE, acting as scribe for Fiona Yepez MD. Fiona Yepez MD: This documentation has been prepared by the olgaeRoddy Aiswarya, SCRIBE, under my direction and personally reviewed by me in its entirety. I confirm that the documentation accurately reflects all work, treatment, procedures, and medical decision making performed by me. Attending Attestation - Resident Resident Name: KalenMichelle - ED Attending Attestation I have performed the following: I have examined & evaluated the patient, The case was reviewed & discussed with the resident, I agree w/resident's findings & plan, Exceptions are as noted - HPI HPI: 02/27/19 14:34 The patient is a 69 year old male, with a significant PMH of ESRD (dialysis MWF ) HTN, CAD, OR, PAD s/p L BKA (07/04/18) c/b poor wound healing, who presents to the emergency department with severe right foot pain that began 15 days ago. The patient notices his right 2nd digit has been infected and necrotic in nature for 4 months but progressively worsened today. He denies chest pain, shortness of breath, headache and dizziness. Denies numbness and tingling. Denies fever, chills, nausea, vomit, diarrhea and constipation.Denies dysuria, frequency, urgency and hematuria. Allergies: NKDA Past surgical history: appendectomy Social history: None reported PCP: Wound Care- Dr. Hebert - Physicial Exam PE: 02/27/19 14:36 GENERAL: Awake, alert, and fully oriented, in no acute distress HEAD: No signs of trauma NECK: Normal ROM, supple, no lymphadenopathy, JVD, or masses LUNGS: Breath sounds equal, clear to auscultation bilaterally. No wheezes, and no crackles HEART: Regular rate and rhythm, normal S1 and S2, no murmurs, rubs or gallops ABDOMEN: Soft, nontender, normoactive bowel sounds. No guarding, no rebound. No masses EXTREMITIES:+left leg bka and right foot gangrene with mild erythema. Pulse 1 + .Sensation intact NEUROLOGICAL: Cranial nerves II through XII grossly intact. Normal speech SKIN: Warm, Dry, - Medical Decision Making 02/27/19 16:47 69 yo male h/o esrd, leg wound, here with necrotic toe. plan labs iv antiobiotics. will obtain ct angio, with ext runoff. r/o thrombus. admit for iv antiobiotics. will consult dr stephens per vascular request. dr hebert. Heart Score/ECG Review #1 General ECG Interpretation: Sinus Rhythm, Normal Rate (67), Normal Intervals Compared to previous ECG there are: Other (TWI IIi AVF)
[2019-02-27] MEDS ORDERED: hydrALAZINE HCL 50 MG TABLET (FP) PO ONE (17:09)
[2019-02-27] MEDS ORDERED: CEFTRIAXONE 1 GM/50 ML BAG ONE (17:09)
[2019-02-27] MEDS ORDERED: LISINOPRIL 20 MG TABLET (FP) PO ONE (17:10)
[2019-02-27] MEDS: CEFTRIAXONE 1 GM in DEXTROSE 5%-WATER - 50 ML IVPB SCH (17:13)
[2019-02-27] MEDS ORDERED: LISINOPRIL 20 MG TABLET (FP) ONE (17:16)
[2019-02-27] MEDS ORDERED: hydrALAZINE HCL 25 MG TABLET (FP) ONE (17:17)
[2019-02-27] MEDS ORDERED: ACETAMINOPHEN 325 MG TABLET (FP) PO PRN (17:35)
--- NOTE | 2019-02-27 17:35 | HP ---
CHIEF COMPLAINT: PCP: HISTORY OF PRESENT ILLNESS: This is a 69 yo M with pmh of PVD, L BKA, esrd on HD MWF, last HD today, anemia and HTN, who was sent to ED from wound care due to R 2nd toe gangrene. Patient reports change in color of his toe 4 mo ago and pain x [address] Paiz requested CTa of RLE w runoff, completed in ED. patient found to have systolic BP 200 in ED w/p H/a, cp, sob, palpitations. given home BP meds. Patient denies f/c, malaise, and pain, n/v/d/c. ER course was notable for: (1)labs (2)foot x ray (3)rle cta w runoff Recent Travel: denies PAST MEDICAL HISTORY: as above PAST SURGICAL HISTORY: as above Social History: Smoking: denies Alcohol: denies Drugs: denies Family History: Allergies piperacillin [From Zosyn] Allergy (Verified 02/27/19 14:29) tazobactam [From Zosyn] Allergy (Verified 02/27/19 14:29) HOME MEDICATIONS: Home Medications Medication Instructions Recorded Calcitriol [Calcitriol -] 0.25 mcg PO DAILY #30 capsule 05/27/18 Furosemide [Lasix -] 40 mg PO DAILY #30 tablet 05/27/18 Ferrous Sulfate [Feosol] 325 mg PO BID #60 ud 07/09/18 Sennosides [Senna -] 1 tab PO BID #60 tablet 07/09/18 Atorvastatin Ca [Lipitor] 80 mg PO HS #30 tablet 07/26/18 Docusate Sodium [Colace -] 100 mg PO TID capsule 07/26/18 Hydralazine HCl 100 mg PO TID #90 tablet 07/26/18 Isosorbide Mononitrate [Imdur -] 2 tab PO DAILY 30 Days #60 07/26/18 tab.sr.24h Labetalol HCl [Normodyne -] 300 mg PO BID #180 tablet 07/26/18 Lisinopril [Prinivil] 40 mg PO DAILY #60 tablet 07/26/18 Nifedipine ER [Procardia XL -] 60 mg PO BID #60 tab.er.24 07/26/18 Sevelamer HCl [Renagel] 800 mg PO TID 30 Days #90 tablet 07/26/18 Spironolactone [Aldactone -] 2 tab PO DAILY 30 Days #60 tablet 07/26/18 Oxycodone HCl 5 mg PO Q8H PRN #5 tablet MDD 3 02/20/19 tabs REVIEW OF SYSTEMS CONSTITUTIONAL: Absent: fever, chills HEENT: Absent: rhinorrhea, nasal congestion, throat pain CARDIOVASCULAR: Absent: chest pain, syncope, palpitations, irregular heart rate, lightheadedness , peripheral edema RESPIRATORY: Absent: cough, shortness of breath GASTROINTESTINAL: Absent: abdominal pain, abdominal distension, nausea, vomiting, diarrhea, constipation, melena, hematochezia GENITOURINARY: Absent: dysuria MUSCULOSKELETAL: Absent: myalgia, arthralgia SKIN: Absent: rash, itching, pallor HEMATOLOGIC/IMMUNOLOGIC: Absent: easy bleeding, easy bruising ENDOCRINE: Absent: unexplained weight gain, unexplained weight loss NEUROLOGIC: Absent: headache, focal weakness or paresthesias PSYCHIATRIC: Absent: anxiety, depression PHYSICAL EXAMINATION Vital Signs - 24 hr 02/27/19 02/27/19 11:44 11:47 Temperature 97.5 F L 98.0 F Pulse Rate 69 Pulse Rate [ 73 Right Radial] Respiratory 16 Rate Blood Pressure 124/73 Blood Pressure 200/82 H [Right Arm] O2 Sat by Pulse 99 92 L Oximetry (%) GENERAL: Awake, alert, and fully oriented, in no acute distress. HEAD: Normal with no signs of trauma. EYES: Pupils equal, round and reactive to light, extraocular movements intact, sclera anicteric, conjunctiva clear. No lid lag. EARS, NOSE, THROAT: Ears normal, nares patent, oropharynx clear without exudates. Moist mucous membranes. NECK: Normal range of motion, supple without lymphadenopathy, JVD, or masses. LUNGS: Breath sounds equal, clear to auscultation bilaterally. No wheezes, and no crackles. No accessory muscle use. HEART: Regular rate and rhythm, normal S1 and S2 without murmur, rub or gallop. ABDOMEN: Soft, nontender, not distended, normoactive bowel sounds, no guarding, no rebound, no masses. No hepatomegaly or splenomegaly. MUSCULOSKELETAL: Normal range of motion at all joints. No bony deformities or tenderness. No CVA tenderness. UPPER EXTREMITIES: 2+ pulses, warm, well-perfused. No cyanosis. No clubbing. No peripheral edema. LOWER EXTREMITIES: 2+ pulses, warm, well-perfused. No calf tenderness. No peripheral edema. NEUROLOGICAL: Cranial nerves II-XII intact. Normal speech. Normal gait. PSYCHIATRIC: Cooperative. Good eye contact. Appropriate mood and affect. SKIN: Warm, dry, normal turgor, no rashes or lesions noted, normal capillary refill. Laboratory Results - last 24 hr 02/27/19 02/27/19 02/27/19 12:34 12:34 12:34 WBC 8.9 RBC 2.94 L Hgb 10.0 L Hct 28.9 L MCV 98.2 H MCH 34.1 H D MCHC 34.7 RDW 16.6 H Plt Count 243 MPV 7.4 L ESR 62 H PT with INR INR Sodium 135 L Potassium 3.8 Chloride 99 Carbon Dioxide 31 Anion Gap 5 L BUN 20.2 H Creatinine 2.8 H Est GFR (CKD-EPI)AfAm 25.16 Est GFR (CKD-EPI)NonAf 21.71 Random Glucose 95 Lactic Acid Calcium 8.6 Total Bilirubin 0.7 AST 21 ALT 22 Alkaline Phosphatase 364 H Total Protein 7.7 Albumin 3.3 L Blood Type Antibody Screen 02/27/19 02/27/19 02/27/19 12:34 14:00 14:00 WBC RBC Hgb Hct MCV MCH MCHC RDW Plt Count MPV ESR PT with INR 12.70 INR 1.08 Sodium Potassium Chloride Carbon Dioxide Anion Gap BUN Creatinine Est GFR (CKD-EPI)AfAm Est GFR (CKD-EPI)NonAf Random Glucose Lactic Acid 0.5 Calcium Total Bilirubin AST ALT Alkaline Phosphatase Total Protein Albumin Blood Type O POSITIVE Antibody Screen Negative ASSESSMENT/PLAN:
--- NOTE | 2019-02-27 17:57 | CONS ---
DATE OF CONSULTATION: DATE OF DICTATION: 02/27/2019 INFECTIOUS DISEASE CONSULTATION HISTORY OF PRESENT ILLNESS: The patient is a 69-year-old male, history of end-stage renal disease on hemodialysis, peripheral vascular disease status post left below the knee amputation, now evaluated for gangrene of the right second toe. The patient is sent from wound care after he was noted to have worsening gangrene of the right 2nd toe associated with swelling, redness, and warmth of the right foot. He complains of pain in the right foot, does not offer any additional details. No reported fever or chills. In the emergency room, patient was receiving Zosyn and developed generalized pruritus. PAST MEDICAL HISTORY: Positive for end-stage renal disease on hemodialysis, diabetes mellitus, peripheral vascular disease, hypertension, left BKA, left upper extremity AV fistula. ALLERGIES: ZOSYN. SOCIAL HISTORY: Lives in the community. Denies tobacco use. LABORATORY DATA: White count 8.9, hematocrit 28.9, platelets 243, ESR 62. BUN 20, creatinine 2.8. Cultures pending. PHYSICAL EXAMINATION: General: On exam, he is awake and alert, chronically ill appearing. Vital signs: Temperature 98, blood pressure 200/82, pulse 73 regular, respirations 20 per minute. HEENT: Sclerae anicteric. Cardiovascular: Heart sounds S1, S2. A 2/6 pansystolic murmur. AV fistula present left upper extremity. Lungs: Grossly clear. Abdomen: Soft, nontender. Extremities: Status post right below the knee amputation. Right foot is swollen and warm, slightly erythematous. The right 2nd toe is necrotic with foul odor. IMPRESSION: 1. Gangrene right second toe. 2. Cellulitis of the right foot. 3. End-stage renal disease. 4. Possible ZOSYN allergy. Will empirically treat with ceftriaxone and Flagyl plus a stat dose vancomycin. Surgical evaluation. Thank you for the kind referral. AKIL PANTOJA M.D. [facility]/[id number]
[2019-02-27] MEDS ORDERED: HEPARIN NA (PORCINE) 5,000 UNITS/ML 1ML VIAL SQ SCH (18:00)
--- NOTE | 2019-02-27 18:00 | HP ---
Admitting History and Physical - Primary Care Physician PCP: Kb Leonardo - Admission Chief Complaint: right foot, 2nd toe gangrene. sent by vascular. History of Present Illness: Patient is a 68 year old male with a PMH significant for ESRD, HTN, CAD, [place], PVD , acute/subacute hemmoragic stroke (06/2018), hypertensive urgency history, and was hospitalized at [facility] last fall for gangrenous left toe and underwent a left BKA on 07/04/2018. He presented to the ED on the advice of vascular surgery for gangrene of his right foot second toe. Patient admitted for a CTA and for antibiotics. As per patient and daughter, the right foot 2nd digit began to change color approximately 4 months ago. patient noted increased pain in this toe for approximately 2 weeks. He had a follow out appointment today with vascular and was sent to the ED for antibiotics. Patient had dialysis this morning via his left arm AV fistula. In the ED patient was given Zosyn, but developed itchiness and redness of his lower extremities. He was given Benadryl 50mg IV x 1 and his symptoms subsided. A penicillin allergy has been added to his medication allergy list. His respiratory status is stable and not having any shortness of breath or wheezing. History Source: Patient, Family Member Limitations to Obtaining History: Clinical Condition, Poor Historian - Past Medical History Cardiovascular: Yes: CAD, CHF, HTN, OK, Murmur, Other (PAD) Pulmonary: Yes: Other Renal/: Yes: Renal Failure, Hemodialysis Heme/Onc: Yes: Anemia Endocrine: Yes: Diabetes Mellitus Dermatology: Yes: Other (gangarene) - Past Surgical History Past Surgical History: Yes: Amputation (Left BKA ), AV Fistula/Graft - Smoking History Smoking history: Never smoked Have you smoked in the past 12 months: No If you are a former smoker, when did you quit?: many years ago - Alcohol/Substance Use Hx Alcohol Use: No History of Substance Use: reports: None - Social History Usual Living Arrangement: Yes: With Spouse, With Child ADL: Family Assistance History of Recent Travel: No Home Medications - Allergies Allergies/Adverse Reactions: Allergies Allergy/AdvReac Type Severity Reaction Status Date / Time piperacillin [From Zosyn] Allergy Verified 02/27/19 14:29 tazobactam [From Zosyn] Allergy Verified 02/27/19 14:29 - Home Medications Home Medications: Ambulatory Orders Calcitriol [Calcitriol -] 0.25 mcg PO DAILY #30 capsule 05/27/18 Furosemide [Lasix -] 40 mg PO DAILY #30 tablet 05/27/18 Ferrous Sulfate [Feosol] 325 mg PO BID #60 ud 07/09/18 Sennosides [Senna -] 1 tab PO BID #60 tablet 07/09/18 Atorvastatin Ca [Lipitor] 80 mg PO HS #30 tablet 07/26/18 Docusate Sodium [Colace -] 100 mg PO TID capsule 07/26/18 Hydralazine HCl 100 mg PO TID #90 tablet 07/26/18 Isosorbide Mononitrate [Imdur -] 2 tab PO DAILY 30 Days #60 tab.sr.24h 07/26/18 Labetalol HCl [Normodyne -] 300 mg PO BID #180 tablet 07/26/18 Lisinopril [Prinivil] 40 mg PO DAILY #60 tablet 07/26/18 Nifedipine ER [Procardia XL -] 60 mg PO BID #60 tab.er.24 07/26/18 Sevelamer HCl [Renagel] 800 mg PO TID 30 Days #90 tablet 07/26/18 Spironolactone [Aldactone -] 2 tab PO DAILY 30 Days #60 tablet 07/26/18 Oxycodone HCl 5 mg PO Q8H PRN #5 tablet MDD 3 tabs 02/20/19 Family Disease History - Family Disease History Family Disease History: Diabetes: Father (did not know him), Mother (did not know him), Sister, Other: Mother, Son (4, healthy), Daughter (4, healthy) Review of Systems - Review of Systems Constitutional: reports: Lethargy, Malaise, Weakness Eyes: reports: No Symptoms Neck: reports: No Symptoms Cardiovascular: reports: No Symptoms Respiratory: reports: No Symptoms Gastrointestinal: reports: No Symptoms Musculoskeletal: reports: Extremity Pain Integumentary: reports: Wound Physical Examination Vital Signs: Vital Signs Temperature 98.0 F 02/27/19 11:47 Pulse Rate 73 02/27/19 11:47 Respiratory Rate 16 02/27/19 11:44 Blood Pressure 200/82 H 02/27/19 11:47 O2 Sat by Pulse Oximetry (%) 92 L 02/27/19 11:47 Constitutional: Yes: No Distress, Calm Eyes: Yes: Other (mild jaundice) HENT: Yes: WNL Neck: Yes: WNL Cardiovascular: Yes: Regular Rate and Rhythm Respiratory: Yes: Regular, Rales (lower lobe crackles, bilaterally) Gastrointestinal: Yes: Normal Bowel Sounds, Soft, Distention ...Rectal Exam: Yes: Deferred Renal/: Yes: Anuria Musculoskeletal: Yes: Muscle Weakness Extremities: Yes: Amputation Edema: No Integumentary: Yes: Other Wound/Incision: Yes: Clean/Dry Neurological: Yes: Alert, Oriented ...Motor Strength: LLE (BKA) Psychiatric: Yes: Alert, Oriented Labs: CBC, BMP 02/27/19 12:34 02/27/19 12:34 Imaging - Results Chest X-ray: Report Reviewed Other: Other Imaging - Results Chest X-ray: Image Reviewed Problem List - Problems (1) Gangrene of toe of right foot Assessment/Plan: Patient admitted from wound care for evaluation of right second digit gangrenous foot, to admit for CTA and IV Antibiotics. Patient initially on Zosyn but had adverse reaction and antibiotics changed per ID. On flagyl, ceftriaxone Septic workup initiated. blood cultures sent and pending Nephrology on board and aware that patient going for a CTA. Patient had dialysis today via left arm fistula. Code(s): I96 - GANGRENE, NOT ELSEWHERE CLASSIFIED (2) Acquired absence of left leg below knee Assessment/Plan: s/p left BKA. Code(s): Z89.512 - ACQUIRED ABSENCE OF LEFT LEG BELOW KNEE (3) Hypertensive urgency Assessment/Plan: BP elevated on admission. continue home medications and monitor BP patient with history of hypertensive urgency and CVA On Lisinopril 40mg, Imdur 60mg daily, Procardia xl 60mg qd, hydralazine 100mg tid, labetalol 300mg bid consider cardiology consult if remains elevated Code(s): I16.0 - HYPERTENSIVE URGENCY (4) Anemia Assessment/Plan: monitor with daily labs Code(s): D64.9 - ANEMIA, UNSPECIFIED Qualifiers: Vitamin B12 deficiency anemia type: other B12 deficiency (5) Congestive heart failure Assessment/Plan: monitor of volume overload. on lasix daily weights Code(s): I50.9 - HEART FAILURE, UNSPECIFIED (6) Diabetes Assessment/Plan: start on novolog ss, monitor BGMs. Code(s): E11.9 - TYPE 2 DIABETES MELLITUS WITHOUT COMPLICATIONS Qualifiers: Diabetes mellitus type: type 2 Diabetes mellitus assisted insulin use: without long term care phlebotomist use Diabetes mellitus complication detail: with chronic kidney disease Chronic kidney disease stage: stage 5, not on chronic dialysis (7) Diastolic CHF Assessment/Plan: on dialysis for volume overload. monitor weights Code(s): I50.30 - UNSPECIFIED DIASTOLIC (CONGESTIVE) HEART FAILURE Qualifiers: Heart failure chronicity: chronic Qualified Code(s): I50.32 - Chronic diastolic (congestive) heart failure (8) ESRD (end stage renal disease) Assessment/Plan: dialysis per renal. had dialysis (3 hour session) today. monitor kidney function. Code(s): N18.6 - END STAGE RENAL DISEASE (9) Type 2 diabetes mellitus with other skin ulcer Code(s): E11.622 - TYPE 2 DIABETES MELLITUS WITH OTHER SKIN ULCER; L98.499 - NON -PRESSURE CHRONIC ULCER OF SKIN OF SITES W UNSP SEVERITY (10) Prophylactic measure Assessment/Plan: fen renal diet/diabetic diet monitor electrolytes tolerating po prophy heparin bid full code. Code(s): Z29.9 - ENCOUNTER FOR PROPHYLACTIC MEASURES, UNSPECIFIED Visit type - Emergency Visit Emergency Visit: Yes Care time: The patient presented to the Emergency Department on the above date and was hospitalized for further evaluation of their emergent condition. - New Patient This patient is new to me today: Yes Date on this admission: 02/27/19 - Critical Care Critical Care patient: No
[2019-02-27] MEDS: SENNOSIDES 8.6MG TABLET (FP) PO SCH (23:10)
[2019-02-27] MEDS: LABETALOL HCL 100 MG TABLET (FP) PO SCH (23:10)
[2019-02-27] MEDS: ATORVASTATIN CA 80 MG TABLET (FP) PO SCH (23:10)
[2019-02-27] MEDS: FERROUS SO4 325 MG TABLET (FP) PO SCH (23:10)
[2019-02-27] MEDS: hydrALAZINE HCL 50 MG TABLET (FP) PO SCH (23:10)
[2019-02-27] MEDS: INSULIN SLIDING SCALE (NOVOLOG) 1 VIAL SQ SCH (23:11)
[2019-02-27] MEDS: DOCUSATE SODIUM 100 MG CAPSULE (FP) PO SCH (23:11)
[2019-02-27] MEDS: HEPARIN NA (PORCINE) 5,000 UNITS/ML 1ML VIAL SQ SCH (23:11)
[2019-02-27] MEDS: NIFEdipine E.R 60 MG TABLET (UD) PO SCH (23:11)
[2019-02-28] MEDS: INSULIN SLIDING SCALE (NOVOLOG) 1 VIAL SQ SCH ×4 (06:13→23:50)
[2019-02-28] MEDS: DOCUSATE SODIUM 100 MG CAPSULE (FP) PO SCH ×3 (06:19→23:49)
[2019-02-28] MEDS: hydrALAZINE HCL 50 MG TABLET (FP) PO SCH ×3 (06:19→23:48)
[2019-02-28 07:59] LABS: BASO % 0.5 % (0-2.0); EOS % 2.3 % (0-4.5); HEMATOCRIT 27.7 % (35.4-49); HEMOGLOBIN 9.7 GM/dL (11.7-16.9); LYMPH % 13.3 % (8-40); MCH 34.6 pg (25.7-33.7); MCHC 35.1 g/dl (32.0-35.9); MEAN CELL VOLUME 98.6 fl (80-96); MEAN PLT VOLUME 8.2 fl (7.5-11.1); MONO % 10.7 % (3.8-10.2); NEUT % 73.2 % (42.8-82.8); PLATELET COUNT 234 K/MM3 (134-434); RBC 2.81 M/mm3 (4.00-5.60); RDW 16.7 % (11.9-15.9)
[2019-02-28 08:02] LABS: ALBUMIN 2.9 g/dl (3.4-5.0); BILIRUBIN,TOTAL 0.7 mg/dL (0.2-1); BLOOD UREA NITROGEN 33.8 mg/dL (7-18); CALCIUM 8.2 mg/dL (8.5-10.1); CREATININE 4.2 mg/dL (0.55-1.3); POTASSIUM 4.8 mmol/L (3.5-5.1)
--- NOTE | 2019-02-28 10:11 | PN ---
Progress Note (short form) - Note Progress Note: esrd s/p cta waiting for hd today- to be done at bedside Current Medications Acetaminophen (Tylenol -) 650 mg PO Q4H PRN PRN Reason: PAIN LEVEL 1-5 Atorvastatin Calcium (Lipitor -) 80 mg PO HS [facility] Last Admin: 02/27/19 23:10 Dose: 80 mg Calcitriol (Rocaltrol -) 0.25 mcg PO DAILY [facility] Docusate Sodium (Colace -) 100 mg PO TID [facility] Last Admin: 02/28/19 06:19 Dose: 100 mg Ferrous Sulfate (Feosol -) 325 mg PO BID [facility] Last Admin: 02/27/19 23:10 Dose: 325 mg Furosemide (Lasix -) 40 mg PO DAILY [facility] Heparin Sodium (Porcine) (Heparin -) 5,000 unit SQ BID [facility] Last Admin: 02/27/19 23:11 Dose: 5,000 unit Hydralazine HCl (Apresoline -) 100 mg PO TID [facility] Last Admin: 02/28/19 06:19 Dose: 100 mg Ceftriaxone Sodium 1 gm/ (Dextrose) 50 mls @ 100 mls/hr IVPB Q24H [facility] Last Admin: 02/27/19 17:13 Dose: 100 mls/hr Metronidazole (Flagyl 500mg Premixed Ivpb -) 500 mg in 100 mls @ 100 mls/hr IVPB Q8H [facility] Last Admin: 02/28/19 08:17 Dose: 100 mls/hr Sodium Chloride (Normal Saline -) 250 mls @ 3,000 mls/hr IV PRN PRN PRN Reason: Hypotension during Dialysis Stop: 02/28/19 16:37 Insulin Aspart (Novolog Vial Sliding Scale -) 1 vial SQ ACHS [facility]; Protocol Last Admin: 02/28/19 06:13 Dose: Not Given Isosorbide Mononitrate (Imdur -) 60 mg PO DAILY [facility] Labetalol HCl (Normodyne -) 300 mg PO BID [facility] Last Admin: 02/27/19 23:10 Dose: 300 mg Lisinopril (Prinivil) 40 mg PO DAILY [facility] Nifedipine (Procardia Xl -) 60 mg PO BID [facility] Last Admin: 02/27/19 23:11 Dose: 60 mg Oxycodone HCl (Roxicodone -) 5 mg PO Q8H PRN PRN Reason: PAIN Senna (Senna -) 1 tab PO BID [facility] Last Admin: 02/27/19 23:10 Dose: 1 tab Spironolactone (Aldactone -) 50 mg PO DAILY [facility] BP's are low sleepy Last Vital Signs Temp Pulse Resp BP Pulse Ox 98.6 F 64 20 101/52 L 99 02/28/19 01:00 02/28/19 05:00 02/28/19 05:00 02/28/19 05:00 02/27/19 20:00 luns clear heart reg abd soft nontender ext mild edema CBC, BMP 02/28/19 06:03 02/28/19 06:03 IMP esrd s/p cta s/p very hih bp will plan hd today hold off bp meds prior to dialysis resume meds one at a time as indicated
[2019-02-28] MEDS: SENNOSIDES 8.6MG TABLET (FP) PO SCH ×3 (10:27→23:50)
[2019-02-28] MEDS: FERROUS SO4 325 MG TABLET (FP) PO SCH ×2 (10:27→23:49)
[2019-02-28] MEDS: CALCITRIOL 0.25 MCG CAPSULE (FP) PO SCH (10:28)
[2019-02-28] MEDS: HEPARIN NA (PORCINE) 5,000 UNITS/ML 1ML VIAL SQ SCH ×2 (10:28→23:49)
[2019-02-28] MEDS: ISOSORBIDE MONONITRATE 60 MG TAB.SR.24H (FP) PO SCH (12:51)
[2019-02-28] MEDS: SPIRONOLACTONE 25 MG TABLET (FP) PO SCH (12:51)
[2019-02-28] MEDS: FUROSEMIDE 40 MG TABLET (FP) PO SCH (12:52)
[2019-02-28] MEDS: LISINOPRIL 20 MG TABLET (FP) PO SCH (12:52)
[2019-02-28] MEDS: NIFEdipine E.R 60 MG TABLET (UD) PO SCH ×2 (12:52→23:50)
[2019-02-28] MEDS: LABETALOL HCL 100 MG TABLET (FP) PO SCH ×2 (12:52→23:49)
--- NOTE | 2019-02-28 14:02 | PN ---
Progress Note, Physician Chief Complaint: foot wound History of Present Illness: no acute events overnight, pain in right second toe, afebrile - Current Medication List Current Medications: Active Medications Acetaminophen (Tylenol -) 650 mg PO Q4H PRN PRN Reason: PAIN LEVEL 1-5 Atorvastatin Calcium (Lipitor -) 80 mg PO HS [facility] Last Admin: 02/27/19 23:10 Dose: 80 mg Calcitriol (Rocaltrol -) 0.25 mcg PO DAILY [facility] Last Admin: 02/28/19 10:28 Dose: 0.25 mcg Docusate Sodium (Colace -) 100 mg PO TID [facility] Last Admin: 02/28/19 06:19 Dose: 100 mg Ferrous Sulfate (Feosol -) 325 mg PO BID [facility] Last Admin: 02/28/19 10:27 Dose: 325 mg Furosemide (Lasix -) 40 mg PO DAILY [facility] Last Admin: 02/28/19 12:52 Dose: Not Given Heparin Sodium (Porcine) (Heparin -) 5,000 unit SQ BID [facility] Last Admin: 02/28/19 10:28 Dose: 5,000 unit Hydralazine HCl (Apresoline -) 100 mg PO TID [facility] Last Admin: 02/28/19 06:19 Dose: 100 mg Ceftriaxone Sodium 1 gm/ (Dextrose) 50 mls @ 100 mls/hr IVPB Q24H [facility] Last Admin: 02/27/19 17:13 Dose: 100 mls/hr Metronidazole (Flagyl 500mg Premixed Ivpb -) 500 mg in 100 mls @ 100 mls/hr IVPB Q8H [facility] Last Admin: 02/28/19 08:17 Dose: 100 mls/hr Sodium Chloride (Normal Saline -) 250 mls @ 3,000 mls/hr IV PRN PRN PRN Reason: Hypotension during Dialysis Stop: 02/28/19 16:37 Insulin Aspart (Novolog Vial Sliding Scale -) 1 vial SQ ACHS [facility]; Protocol Last Admin: 02/28/19 11:28 Dose: Not Given Isosorbide Mononitrate (Imdur -) 60 mg PO DAILY [facility] Last Admin: 02/28/19 12:51 Dose: Not Given Labetalol HCl (Normodyne -) 300 mg PO BID [facility] Last Admin: 02/27/19 23:10 Dose: 300 mg Lisinopril (Prinivil) 40 mg PO DAILY [facility] Last Admin: 02/28/19 12:52 Dose: Not Given Nifedipine (Procardia Xl -) 60 mg PO BID [facility] Last Admin: 02/28/19 12:52 Dose: Not Given Oxycodone HCl (Roxicodone -) 5 mg PO Q8H PRN PRN Reason: PAIN Senna (Senna -) 1 tab PO BID [facility] Last Admin: 02/28/19 10:30 Dose: Not Given Spironolactone (Aldactone -) 50 mg PO DAILY [facility] Last Admin: 02/28/19 12:51 Dose: Not Given - Objective Vital Signs: Vital Signs Temperature 99 F 02/28/19 09:00 Pulse Rate 64 02/28/19 09:00 Respiratory Rate 18 02/28/19 09:00 Blood Pressure 107/50 L 02/28/19 09:00 O2 Sat by Pulse Oximetry (%) 99 02/27/19 20:00 Constitutional: Yes: Well Nourished, No Distress, Calm Cardiovascular: Yes: WNL, Regular Rate and Rhythm Respiratory: Yes: WNL, Regular, CTA Bilaterally Gastrointestinal: Yes: WNL, Normal Bowel Sounds, Soft, Abdomen, Obese Extremities: Yes: Other (LLE BKA, right 2nd toe gangrene) Edema: No Labs: CBC, BMP 02/28/19 06:03 02/28/19 06:03 INR, PTT INR 1.08 (0.83-1.09) 02/27/19 12:34 - ....Imaging Cat Scan: Report Reviewed Problem List - Problems (1) Hypertensive urgency Code(s): I16.0 - HYPERTENSIVE URGENCY (2) Acquired absence of left leg below knee Code(s): Z89.512 - ACQUIRED ABSENCE OF LEFT LEG BELOW KNEE (3) Anemia Code(s): D64.9 - ANEMIA, UNSPECIFIED Qualifiers: Vitamin B12 deficiency anemia type: other B12 deficiency (4) Congestive heart failure Code(s): I50.9 - HEART FAILURE, UNSPECIFIED (5) Diabetes Code(s): E11.9 - TYPE 2 DIABETES MELLITUS WITHOUT COMPLICATIONS Qualifiers: Diabetes mellitus type: type 2 Diabetes mellitus senior care insulin use: without senior care use Diabetes mellitus complication detail: with chronic kidney disease Chronic kidney disease stage: stage 5, not on chronic dialysis (6) Diabetic foot infection Code(s): E11.628 - TYPE 2 DIABETES MELLITUS WITH OTHER SKIN COMPLICATIONS; L08.9 - LOCAL INFECTION OF THE SKIN AND SUBCUTANEOUS TISSUE, UNSP (7) Diastolic CHF Code(s): I50.30 - UNSPECIFIED DIASTOLIC (CONGESTIVE) HEART FAILURE Qualifiers: Heart failure chronicity: chronic Qualified Code(s): I50.32 - Chronic diastolic (congestive) heart failure (8) ESRD (end stage renal disease) Code(s): N18.6 - END STAGE RENAL DISEASE (9) Gangrene of toe of right foot Code(s): I96 - GANGRENE, NOT ELSEWHERE CLASSIFIED (10) PAD (peripheral artery disease) Code(s): I73.9 - PERIPHERAL VASCULAR DISEASE, UNSPECIFIED Assessment/Plan Assessment: Gangrene of toe of right foot Hypertensive urgency Diastolic Congestive heart failure Diabetes ESRD (end stage renal disease) Anemia Plan: -IV Antibiotics-rocephin and flagyl -cultures pending -CTA report reviewed -vascular/podiatry eval pending -ID eval HTN -BP better controlled on current regimen AOCD -monitor counts DM2 -tight BS control -bs checks and ISS for supplemental coverage -not on any home meds? -hba1c 6.3%, likely falsely low in hd and anemic patient Diastolic CHF -on lasix -HD per renal -i/o's and daily weights -c/w aldactone, bb, aceI, nitrates/hydralazine ESRD on HD -HD yesterday
--- NOTE | 2019-02-28 15:26 | CONSULT ---
Consult Consult Specialty:: Vascular Surgery Reason for Consultation:: right second toe gangrene - History Source Limitations to Obtaining History: No Limitations - Past Medical History Cardio/Vascular: Yes: CAD, CHF, HTN, SD, Murmur, Other (PAD) Pulmonary: Yes: Other Renal/: Yes: Renal Failure, Hemodialysis Endocrine: Yes: Diabetes Mellitus Dermatology: Yes: Other (gangarene) Additional Medical History: DM - Past Surgical History Past Surgical History: Yes: Amputation (Left BKA ), AV Fistula/Graft - Alcohol/Substance Use Hx Alcohol Use: No History of Substance Use: reports: None - Smoking History Smoking history: Never smoked Have you smoked in the past 12 months: No If you are a former smoker, when did you quit?: many years ago - Social History Usual Living Arrangement: With Significant Other ADL: Family Assistance History of Recent Travel: No Home Medications - Allergies Allergies/Adverse Reactions: Allergies Allergy/AdvReac Type Severity Reaction Status Date / Time piperacillin [From Zosyn] Allergy Verified 02/27/19 14:29 tazobactam [From Zosyn] Allergy Verified 02/27/19 14:29 - Home Medications Home Medications: Ambulatory Orders Calcitriol [Calcitriol -] 0.25 mcg PO DAILY #30 capsule 05/27/18 Furosemide [Lasix -] 40 mg PO DAILY #30 tablet 05/27/18 Ferrous Sulfate [Feosol] 325 mg PO BID #60 ud 07/09/18 Sennosides [Senna -] 1 tab PO BID #60 tablet 07/09/18 Atorvastatin Ca [Lipitor] 80 mg PO HS #30 tablet 07/26/18 Docusate Sodium [Colace -] 100 mg PO TID capsule 07/26/18 Hydralazine HCl 100 mg PO TID #90 tablet 07/26/18 Isosorbide Mononitrate [Imdur -] 2 tab PO DAILY 30 Days #60 tab.sr.24h 07/26/18 Labetalol HCl [Normodyne -] 300 mg PO BID #180 tablet 07/26/18 Lisinopril [Prinivil] 40 mg PO DAILY #60 tablet 07/26/18 Nifedipine ER [Procardia XL -] 60 mg PO BID #60 tab.er.24 07/26/18 Sevelamer HCl [Renagel] 800 mg PO TID 30 Days #90 tablet 07/26/18 Spironolactone [Aldactone -] 2 tab PO DAILY 30 Days #60 tablet 07/26/18 Oxycodone HCl 5 mg PO Q8H PRN #5 tablet MDD 3 tabs 02/20/19 Family Disease History - Family Disease History Family Disease History: Diabetes: Father (did not know him), Mother (did not know him), Sister, Other: Mother, Son (4, healthy), Daughter (4, healthy) Review of Systems - Review of Systems Constitutional: reports: No Symptoms Eyes: reports: No Symptoms HENT: reports: No Symptoms Neck: reports: No Symptoms Cardiovascular: reports: No Symptoms Respiratory: reports: No Symptoms Gastrointestinal: reports: No Symptoms Genitourinary: reports: No Symptoms Musculoskeletal: reports: No Symptoms Integumentary: reports: No Symptoms Neurological: reports: No Symptoms Endocrine: reports: No Symptoms Hematology/Lymphatic: reports: No Symptoms Psychiatric: reports: No Symptoms Physical Exam Vital Signs: Vital Signs Temperature 98.8 F 02/28/19 13:00 Pulse Rate 66 02/28/19 13:00 Respiratory Rate 18 02/28/19 13:00 Blood Pressure 136/65 02/28/19 13:00 O2 Sat by Pulse Oximetry (%) 99 02/27/19 20:00 Constitutional: Yes: Well Nourished, No Distress, Calm Eyes: Yes: WNL, Conjunctiva Clear, EOM Intact HENT: Yes: WNL, Atraumatic, Normocephalic Neck: Yes: WNL, Supple, Trachea Midline Cardiovascular: Yes: WNL, Regular Rate and Rhythm Respiratory: Yes: WNL, Regular, CTA Bilaterally Gastrointestinal: Yes: WNL, Normal Bowel Sounds ...Rectal Exam: Yes: WNL Renal/: Yes: WNL Breast(s): Yes: WNL Musculoskeletal: Yes: WNL Extremities: Yes: WNL, Other (right second toe gangrene) Peripheral Pulses WNL: No Integumentary: Yes: WNL Neurological: Yes: WNL, Alert, Oriented ...Motor Strength: WNL Psychiatric: Yes: WNL Labs: CBC, BMP 02/28/19 06:03 02/28/19 06:03 Problem List - Problems (1) Gangrene of toe of right foot Assessment/Plan: Pt seen in wound care on saturday. Sent to ER due to pain and induration under right second toe. Could be collection. CTA officially read - two vesssel runoff into foot. no areas of stenosis. No need for any intervention. Please consult podiatry to evaluate foot and amputate right second toe. Kel Paiz DO Code(s): I96 - GANGRENE, NOT ELSEWHERE CLASSIFIED
[2019-02-28] MEDS ORDERED: cefTRIAXone SODIUM 1 GM VIAL ONE (16:07)
[2019-02-28] MEDS ORDERED: DEXTROSE 5%-WATER - 50 ML IVPB ONE (16:07)
[2019-02-28] MEDS: CEFTRIAXONE 1 GM in DEXTROSE 5%-WATER - 50 ML IVPB SCH (16:15)
[2019-02-28] MEDS: ATORVASTATIN CA 80 MG TABLET (FP) PO SCH (23:49)
[2019-02-28] MEDS: oxyCODONE HCL 5 MG TABLET PO PRN (23:56)
[2019-03-01] MEDS: DOCUSATE SODIUM 100 MG CAPSULE (FP) PO SCH ×4 (05:54→23:30)
[2019-03-01] MEDS: hydrALAZINE HCL 50 MG TABLET (FP) PO SCH ×3 (06:01→21:46)
[2019-03-01] MEDS: INSULIN SLIDING SCALE (NOVOLOG) 1 VIAL SQ SCH ×4 (06:01→21:51)
[2019-03-01] MEDS ORDERED: PT OWN MED DRAWER 7, Y5N ONE (09:19)
[2019-03-01] MEDS: LABETALOL HCL 100 MG TABLET (FP) PO SCH ×2 (09:32→21:48)
[2019-03-01] MEDS: FUROSEMIDE 40 MG TABLET (FP) PO SCH (09:33)
[2019-03-01] MEDS: ISOSORBIDE MONONITRATE 60 MG TAB.SR.24H (FP) PO SCH (09:33)
[2019-03-01] MEDS: HEPARIN NA (PORCINE) 5,000 UNITS/ML 1ML VIAL SQ SCH ×2 (09:33→21:47)
[2019-03-01] MEDS: SENNOSIDES 8.6MG TABLET (FP) PO SCH ×4 (09:33→23:45)
[2019-03-01] MEDS: LISINOPRIL 20 MG TABLET (FP) PO SCH (09:33)
[2019-03-01] MEDS: FERROUS SO4 325 MG TABLET (FP) PO SCH ×2 (09:33→21:46)
[2019-03-01] MEDS: SPIRONOLACTONE 25 MG TABLET (FP) PO SCH (09:33)
[2019-03-01] MEDS: NIFEdipine E.R 60 MG TABLET (UD) PO SCH ×2 (09:33→21:48)
[2019-03-01] MEDS: CALCITRIOL 0.25 MCG CAPSULE (FP) PO SCH (09:34)
--- NOTE | 2019-03-01 09:52 | CONSULT ---
Consult - text type - Consultation Consultation Note: Podiatry Consultation: 69 year old diabetic, PVD, ESRD M presented to wound care with dry gangrene second digit. Denies F/V/N/C/SOB/CP. Afebrile, VSS. PMHx: IDDM, HTN, HLP, ESRD on HD, CAD s/p [place] Meds: noted in chart ALL: zosyn MONICA: R foot: pedal pulses nonpalpable, TG wnl. There is dry gangrenous changes to the second digit. There is no purulent drainage, no fluctuance, no streaking cellulitis, no soft tissue crepitus, no signs of active infection. Significant tenderness to palpation. Imp: 69 year old diabetic, PVD male with right second digit gangrene 1. IV abx per ID 2. Local care 3. Plan for right second digit amputation Saturday. Medical clearance please. 4. Will follow. Juan Garcia DPM
--- NOTE | 2019-03-01 10:37 | PN ---
Physical Exam: SUBJECTIVE: Patient seen and examined no new events , still has pain R foot , but no new events, OBJECTIVE: Vital Signs Period Temp Pulse Resp BP Sys/Cole Pulse Ox Last 24 Hr 97.8 F-99.1 F 61-80 18-20 103-210/47-103 98 GENERAL: The patient is awake, alert, and fully oriented, in no acute distress. HEAD: Normal with no signs of trauma. EYES: PERRL, extraocular movements intact, sclera anicteric, conjunctiva clear. No ptosis. ENT: Ears normal, nares patent, oropharynx clear without exudates, moist mucous membranes. NECK: Trachea midline, full range of motion, supple. LUNGS: Breath sounds equal, clear to auscultation bilaterally, no wheezes, no crackles, no accessory muscle use. HEART: Regular rate and rhythm, S1, S2 without murmur, rub or gallop. ABDOMEN: Soft, nontender, nondistended, normoactive bowel sounds, no guarding, no rebound, no hepatosplenomegaly, no masses. EXTREMITIES: L BKA, and R foot sec toe gangrene, no surrounding erythema , no dc , , L arm AVF. NEUROLOGICAL: Cranial nerves II through XII grossly intact. Normal speech, gait not observed. PSYCH: Normal mood, normal affect. SKIN: Warm, dry, normal turgor, no rashes or lesions noted CBCD WBC 7.0 K/mm3 (4.0-10.0) 02/28/19 06:03 RBC 2.81 M/mm3 (4.00-5.60) L 02/28/19 06:03 Hgb 9.7 GM/dL (11.7-16.9) L 02/28/19 06:03 Hct 27.7 % (35.4-49) L 02/28/19 06:03 MCV 98.6 fl (80-96) H 02/28/19 06:03 MCHC 35.1 g/dl (32.0-35.9) 02/28/19 06:03 RDW 16.7 % (11.9-15.9) H 02/28/19 06:03 Plt Count 234 K/MM3 (134-434) 02/28/19 06:03 MPV 8.2 fl (7.5-11.1) D 02/28/19 06:03 CMP Sodium 135 mmol/L (136-145) L 02/28/19 06:03 Potassium 4.8 mmol/L (3.5-5.1) 02/28/19 06:03 Chloride 100 mmol/L (98-107) 02/28/19 06:03 Carbon Dioxide 28 mmol/L (21-32) 02/28/19 06:03 Anion Gap 7 MMOL/L (8-16) L 02/28/19 06:03 BUN 33.8 mg/dL (7-18) H 02/28/19 06:03 Creatinine 4.2 mg/dL (0.55-1.3) H 02/28/19 06:03 Calcium 8.2 mg/dL (8.5-10.1) L 02/28/19 06:03 Total Bilirubin 0.7 mg/dL (0.2-1) 02/28/19 06:03 AST 14 U/L (15-37) L 02/28/19 06:03 ALT 19 U/L (13-61) 02/28/19 06:03 Alkaline Phosphatase 273 U/L (45-117) H 02/28/19 06:03 Total Protein 7.0 g/dl (6.4-8.2) 02/28/19 06:03 Albumin 2.9 g/dl (3.4-5.0) L 02/28/19 06:03 Laboratory Results - last 24 hr 02/28/19 02/28/19 02/28/19 11:15 16:24 23:15 POC Glucometer 110 151 134 03/01/19 05:50 POC Glucometer 119 Active Medications Generic Name Dose Route Start Last Admin Trade Name Freq PRN Reason Stop Dose Admin Acetaminophen 650 mg 02/27/19 17:35 Tylenol - PO Q4H PRN PAIN LEVEL 1-5 Atorvastatin Calcium 80 mg 02/27/19 22:00 02/28/19 23:49 Lipitor - PO 80 mg HS [facility] Administration Calcitriol 0.25 mcg 02/28/19 10:00 03/01/19 09:34 Rocaltrol - PO 0.25 mcg DAILY [facility] Administration Docusate Sodium 100 mg 02/27/19 22:00 03/01/19 05:54 Colace - PO Not Given TID [facility] Ferrous Sulfate 325 mg 02/27/19 22:00 03/01/19 09:33 Feosol - PO 325 mg BID [facility] Administration Furosemide 40 mg 02/28/19 10:00 03/01/19 09:33 Lasix - PO 40 mg DAILY [facility] Administration Heparin Sodium (Porcine) 5,000 unit 02/27/19 22:00 03/01/19 09:33 Heparin - SQ 5,000 unit BID [facility] Administration Hydralazine HCl 100 mg 02/27/19 22:00 03/01/19 06:01 Apresoline - PO Not Given TID [facility] Ceftriaxone Sodium 1 gm/ 50 mls @ 100 mls/hr 02/27/19 16:15 02/28/19 16:15 Dextrose IVPB 100 mls/hr Q24H [facility] Administration Metronidazole 500 mg in 100 mls @ 100 mls/hr 02/27/19 16:15 03/01/19 09:32 Flagyl 500mg Premixed Ivpb - IVPB 100 mls/hr Q8H [facility] Administration Insulin Aspart 1 vial 02/27/19 22:00 03/01/19 06:01 Novolog Vial Sliding Scale - SQ Not Given ACHS [facility] Protocol Isosorbide Mononitrate 60 mg 02/28/19 10:00 03/01/19 09:33 Imdur - PO 60 mg DAILY [facility] Administration Labetalol HCl 300 mg 02/27/19 22:00 03/01/19 09:32 Normodyne - PO 300 mg BID [facility] Administration Lisinopril 40 mg 02/28/19 10:00 03/01/19 09:33 Prinivil PO 40 mg DAILY [facility] Administration Nifedipine 60 mg 02/27/19 22:00 03/01/19 09:33 Procardia Xl - PO 60 mg BID [facility] Administration Oxycodone HCl 5 mg 02/27/19 17:45 02/28/19 23:56 Roxicodone - PO 5 mg Q8H PRN Administration PAIN Senna 1 tab 02/27/19 22:00 03/01/19 09:46 Senna - PO Not Given BID [facility] Spironolactone 50 mg 02/28/19 10:00 03/01/19 09:33 Aldactone - PO 50 mg DAILY [facility] Administration ASSESSMENT/PLAN: Assessment: Gangrene of toe of right foot Hypertensive urgency Diastolic Congestive heart failure Diabetes ESRD (end stage renal disease) Anemia Plan: -IV Antibiotics-rocephin and flagyl -cultures pending -CTA report reviewed -as vascualr pt has 2 vessel run off to R foot , no vascular intervention needed , seen by podiatry , will get amputation of the R sec Toe on saturday, HTN -BP better controlled on current regimen AOCD -monitor counts DM2 -tight BS control -bs checks and ISS for supplemental coverage controlled, -hba1c 6.3%, likely falsely low in hd and anemic patient Diastolic CHF -on lasix -HD per renal -i/o's and daily weights -c/w aldactone, bb, aceI, nitrates/hydralazine ESRD on HD as per renal, continue pain management, Problem List - Problems (1) Acquired absence of left leg below knee Code(s): Z89.512 - ACQUIRED ABSENCE OF LEFT LEG BELOW KNEE (2) Anemia Code(s): D64.9 - ANEMIA, UNSPECIFIED Qualifiers: Vitamin B12 deficiency anemia type: other B12 deficiency (3) Congestive heart failure Code(s): I50.9 - HEART FAILURE, UNSPECIFIED (4) Diabetes Code(s): E11.9 - TYPE 2 DIABETES MELLITUS WITHOUT COMPLICATIONS Qualifiers: Diabetes mellitus type: type 2 Diabetes mellitus alf insulin use: without alf use Diabetes mellitus complication detail: with chronic kidney disease Chronic kidney disease stage: on chronic dialysis (5) Gangrene of toe of right foot Code(s): I96 - GANGRENE, NOT ELSEWHERE CLASSIFIED Visit type - Emergency Visit Emergency Visit: No - New Patient This patient is new to me today: Yes Date on this admission: 03/01/19 - Critical Care Critical Care patient: No - Discharge Referral Referred to [facility] No
[2019-03-01] MEDS: oxyCODONE HCL 5 MG TABLET PO PRN (14:38)
[2019-03-01] MEDS ORDERED: cefTRIAXone SODIUM 1 GM VIAL ONE (14:44)
[2019-03-01] MEDS ORDERED: DEXTROSE 5%-WATER - 50 ML IVPB ONE (14:44)
[2019-03-01] MEDS: CEFTRIAXONE 1 GM in DEXTROSE 5%-WATER - 50 ML IVPB SCH (16:28)
--- NOTE | 2019-03-01 17:17 | EKG ---
Test Reason : Blood Pressure : / mmHG Vent. Rate : 067 BPM Atrial Rate : 067 BPM P-R Int : 192 ms QRS Dur : 146 ms QT Int : 486 ms P-R-T Axes : 019 -15 004 degrees QTc Int : 513 ms NORMAL SINUS RHYTHM RIGHT BUNDLE BRANCH BLOCK ABNORMAL ECG WHEN COMPARED WITH ECG OF 17-JUL-2018 12:03, RIGHT BUNDLE BRANCH BLOCK IS NOW PRESENT Confirmed by MD CATRACHO, ORESTES ([id number]) on 03/01/2019 5:16:55 PM Referred By: Confirmed By:ORESTES HAYDEN MD
[2019-03-01] MEDS: ATORVASTATIN CA 80 MG TABLET (FP) PO SCH (21:47)
--- NOTE | 2019-03-01 22:46 | PN ---
Progress Note (short form) - Note Progress Note: esrd s/p cta waiting for hd today- to be done at bedside Current Medications Acetaminophen (Tylenol -) 650 mg PO Q4H PRN PRN Reason: PAIN LEVEL 1-5 Atorvastatin Calcium (Lipitor -) 80 mg PO HS [facility] Last Admin: 03/01/19 21:47 Dose: 80 mg Calcitriol (Rocaltrol -) 0.25 mcg PO DAILY [facility] Last Admin: 03/01/19 09:34 Dose: 0.25 mcg Docusate Sodium (Colace -) 100 mg PO TID [facility] Last Admin: 03/01/19 21:46 Dose: 100 mg Ferrous Sulfate (Feosol -) 325 mg PO BID [facility] Last Admin: 03/01/19 21:46 Dose: 325 mg Furosemide (Lasix -) 40 mg PO DAILY [facility] Last Admin: 03/01/19 09:33 Dose: 40 mg Heparin Sodium (Porcine) (Heparin -) 5,000 unit SQ BID [facility] Last Admin: 03/01/19 21:47 Dose: 5,000 unit Hydralazine HCl (Apresoline -) 100 mg PO TID [facility] Last Admin: 03/01/19 21:46 Dose: 100 mg Ceftriaxone Sodium 1 gm/ (Dextrose) 50 mls @ 100 mls/hr IVPB Q24H [facility] Last Admin: 03/01/19 16:28 Dose: 100 mls/hr Metronidazole (Flagyl 500mg Premixed Ivpb -) 500 mg in 100 mls @ 100 mls/hr IVPB Q8H [facility] Last Admin: 03/01/19 16:28 Dose: 100 mls/hr Insulin Aspart (Novolog Vial Sliding Scale -) 1 vial SQ ACHS [facility]; Protocol Last Admin: 03/01/19 21:51 Dose: Not Given Isosorbide Mononitrate (Imdur -) 60 mg PO DAILY [facility] Last Admin: 03/01/19 09:33 Dose: 60 mg Labetalol HCl (Normodyne -) 300 mg PO BID [facility] Last Admin: 03/01/19 21:48 Dose: 300 mg Lisinopril (Prinivil) 40 mg PO DAILY [facility] Last Admin: 03/01/19 09:33 Dose: 40 mg Nifedipine (Procardia Xl -) 60 mg PO BID [facility] Last Admin: 03/01/19 21:48 Dose: 60 mg Oxycodone HCl (Roxicodone -) 5 mg PO Q8H PRN PRN Reason: PAIN Last Admin: 03/01/19 14:38 Dose: 5 mg Senna (Senna -) 1 tab PO BID [facility] Last Admin: 03/01/19 21:48 Dose: 1 tab Spironolactone (Aldactone -) 50 mg PO DAILY [facility] Last Admin: 03/01/19 09:33 Dose: 50 mg BP's are better today sleepy Last Vital Signs Temp Pulse Resp BP Pulse Ox 97.8 F 59 L 18 121/62 98 03/01/19 22:00 03/01/19 22:00 03/01/19 22:00 03/01/19 22:00 03/01/19 09:00 luns clear heart reg abd soft nontender ext mild edema CBC, BMP 02/28/19 06:03 02/28/19 06:03 IMP esrd s/p cta s/p very high bp resume BP meds one at a time as indicated
[2019-03-02] MEDS: oxyCODONE HCL 5 MG TABLET PO PRN ×2 (00:39→12:48)
[2019-03-02] MEDS: hydrALAZINE HCL 50 MG TABLET (FP) PO SCH ×3 (05:56→22:07)
[2019-03-02] MEDS: DOCUSATE SODIUM 100 MG CAPSULE (FP) PO SCH ×3 (05:56→22:07)
[2019-03-02] MEDS: INSULIN SLIDING SCALE (NOVOLOG) 1 VIAL SQ SCH ×4 (06:19→21:59)
--- NOTE | 2019-03-02 07:43 | PN ---
Progress Note (short form) - Note Progress Note: PODIATRY NOTE: 69 year old diabetic, PVD, ESRD wtih dry gangrene to the right second digit. Understands for amputation tomorrow. Denies any other complaints. Denies any f/c /n/v/sob. PMHx: IDDM, HTN, HLP, ESRD on HD, CAD s/p [place] Meds: noted in chart ALL: zosyn MONICA: R foot: pedal pulses nonpalpable, TG wnl. There is dry gangrenous changes to the second digit. There is no purulent drainage, no fluctuance, no streaking cellulitis, no soft tissue crepitus, no signs of active infection. Significant tenderness to palpation. Imp: 69 year old diabetic, PVD male with right second digit gangrene P: Evaluated and reviewed Cont iv abx per ID Will plan for 2nd digit amputation tomorrow with Dr. Garcia. Will follow.
[2019-03-02] MEDS: FERROUS SO4 325 MG TABLET (FP) PO SCH ×2 (09:46→22:07)
[2019-03-02] MEDS: CALCITRIOL 0.25 MCG CAPSULE (FP) PO SCH (09:46)
[2019-03-02] MEDS: HEPARIN NA (PORCINE) 5,000 UNITS/ML 1ML VIAL SQ SCH ×2 (09:46→22:07)
--- NOTE | 2019-03-02 10:12 | PN ---
Progress Note, Physician History of Present Illness: Pt seen and examined at bedside. He is awake and alert. he denies shortness of breath. - Current Medication List Current Medications: Active Medications Acetaminophen (Tylenol -) 650 mg PO Q4H PRN PRN Reason: PAIN LEVEL 1-5 Atorvastatin Calcium (Lipitor -) 80 mg PO HS [facility] Last Admin: 03/01/19 21:47 Dose: 80 mg Calcitriol (Rocaltrol -) 0.25 mcg PO DAILY [facility] Last Admin: 03/02/19 09:46 Dose: 0.25 mcg Docusate Sodium (Colace -) 100 mg PO TID [facility] Last Admin: 03/02/19 05:56 Dose: Not Given Ferrous Sulfate (Feosol -) 325 mg PO BID [facility] Last Admin: 03/02/19 09:46 Dose: 325 mg Furosemide (Lasix -) 40 mg PO DAILY [facility] Last Admin: 03/01/19 09:33 Dose: 40 mg Heparin Sodium (Porcine) (Heparin -) 5,000 unit SQ BID [facility] Last Admin: 03/02/19 09:46 Dose: 5,000 unit Hydralazine HCl (Apresoline -) 100 mg PO TID [facility] Last Admin: 03/02/19 05:56 Dose: Not Given Ceftriaxone Sodium 1 gm/ (Dextrose) 50 mls @ 100 mls/hr IVPB Q24H [facility] Last Admin: 03/01/19 16:28 Dose: 100 mls/hr Metronidazole (Flagyl 500mg Premixed Ivpb -) 500 mg in 100 mls @ 100 mls/hr IVPB Q8H [facility] Last Admin: 03/02/19 00:56 Dose: 100 mls/hr Insulin Aspart (Novolog Vial Sliding Scale -) 1 vial SQ ACHS [facility]; Protocol Last Admin: 03/02/19 06:19 Dose: Not Given Isosorbide Mononitrate (Imdur -) 60 mg PO DAILY [facility] Last Admin: 03/01/19 09:33 Dose: 60 mg Labetalol HCl (Normodyne -) 300 mg PO BID [facility] Last Admin: 03/01/19 21:48 Dose: 300 mg Lisinopril (Prinivil) 40 mg PO DAILY [facility] Last Admin: 03/01/19 09:33 Dose: 40 mg Nifedipine (Procardia Xl -) 60 mg PO BID [facility] Last Admin: 03/01/19 21:48 Dose: 60 mg Oxycodone HCl (Roxicodone -) 5 mg PO Q8H PRN PRN Reason: PAIN Last Admin: 03/02/19 00:39 Dose: 5 mg Senna (Senna -) 1 tab PO BID [facility] Last Admin: 03/01/19 23:45 Dose: Not Given Spironolactone (Aldactone -) 50 mg PO DAILY [facility] Last Admin: 03/01/19 09:33 Dose: 50 mg - Objective Vital Signs: Vital Signs Temperature 97.5 F L 03/02/19 09:45 Pulse Rate 59 L 03/02/19 09:45 Respiratory Rate 18 03/02/19 09:45 Blood Pressure 131/63 03/02/19 09:45 O2 Sat by Pulse Oximetry (%) 92 L 03/01/19 21:00 Constitutional: Yes: Calm Eyes: Yes: Conjunctiva Clear HENT: Yes: Atraumatic Cardiovascular: Yes: S1, S2 Respiratory: Yes: CTA Bilaterally Gastrointestinal: Yes: Soft Genitourinary: Yes: WNL Musculoskeletal: Yes: WNL Extremities: Yes: Other (left bka) Edema: No Neurological: Yes: Oriented Psychiatric: Yes: Oriented Labs: CBC, BMP 02/28/19 06:03 02/28/19 06:03 INR, PTT INR 1.08 (0.83-1.09) 02/27/19 12:34 Assessment/Plan Current Medications Generic Name Dose Route Start Last Admin Trade Name Freq PRN Reason Stop Dose Admin Acetaminophen 650 mg 02/27/19 17:35 Tylenol - PO Q4H PRN PAIN LEVEL 1-5 Atorvastatin Calcium 80 mg 02/27/19 22:00 03/01/19 21:47 Lipitor - PO 80 mg HS [facility] Administration Calcitriol 0.25 mcg 02/28/19 10:00 03/02/19 09:46 Rocaltrol - PO 0.25 mcg DAILY [facility] Administration Docusate Sodium 100 mg 02/27/19 22:00 03/02/19 05:56 Colace - PO Not Given TID [facility] Ferrous Sulfate 325 mg 02/27/19 22:00 03/02/19 09:46 Feosol - PO 325 mg BID [facility] Administration Furosemide 40 mg 02/28/19 10:00 03/01/19 09:33 Lasix - PO 40 mg DAILY [facility] Administration Heparin Sodium (Porcine) 5,000 unit 02/27/19 22:00 03/02/19 09:46 Heparin - SQ 5,000 unit BID [facility] Administration Hydralazine HCl 100 mg 02/27/19 22:00 03/02/19 05:56 Apresoline - PO Not Given TID [facility] Ceftriaxone Sodium 1 gm/ 50 mls @ 100 mls/hr 02/27/19 16:15 03/01/19 16:28 Dextrose IVPB 100 mls/hr Q24H [facility] Administration Metronidazole 500 mg in 100 mls @ 100 mls/hr 02/27/19 16:15 03/02/19 00:56 Flagyl 500mg Premixed Ivpb - IVPB 100 mls/hr Q8H [facility] Administration Insulin Aspart 1 vial 02/27/19 22:00 03/02/19 06:19 Novolog Vial Sliding Scale - SQ Not Given ACHS [facility] Protocol Isosorbide Mononitrate 60 mg 02/28/19 10:00 03/01/19 09:33 Imdur - PO 60 mg DAILY [facility] Administration Labetalol HCl 300 mg 02/27/19 22:00 03/01/19 21:48 Normodyne - PO 300 mg BID [facility] Administration Lisinopril 40 mg 02/28/19 10:00 03/01/19 09:33 Prinivil PO 40 mg DAILY [facility] Administration Nifedipine 60 mg 02/27/19 22:00 03/01/19 21:48 Procardia Xl - PO 60 mg BID [facility] Administration Oxycodone HCl 5 mg 02/27/19 17:45 03/02/19 00:39 Roxicodone - PO 5 mg Q8H PRN Administration PAIN Senna 1 tab 02/27/19 22:00 03/01/19 23:45 Senna - PO Not Given BID [facility] Spironolactone 50 mg 02/28/19 10:00 03/01/19 09:33 Aldactone - PO 50 mg DAILY [facility] Administration Impression 1. ESRD on HD 2. anemia 3. DM 4. HTN 5. toe infection/gangrene 6. PVD 7. cavernous malformation Plan - monitor bp - HD today - vascular follow up - renal diet - pt is a MWF HD
[2019-03-02] MEDS: SENNOSIDES 8.6MG TABLET (FP) PO SCH ×2 (10:19→22:09)
[2019-03-02] MEDS ORDERED: SODIUM CHLORIDE 250 ML IV PRN (13:51)
[2019-03-02] MEDS ORDERED: VANCOMYCIN 1 GRAM (PRE-DOCKED) 1,000 MG/250 ML BAG IVPB ONE (15:05)
--- NOTE | 2019-03-02 15:09 | PN ---
Progress Note, Physician History of Present Illness: AWAKE BUT LETHARGIC RECEIVING HEMODIALYSIS AFEBRILE - Current Medication List Current Medications: Active Medications Acetaminophen (Tylenol -) 650 mg PO Q4H PRN PRN Reason: PAIN LEVEL 1-5 Atorvastatin Calcium (Lipitor -) 80 mg PO HS [facility] Last Admin: 03/01/19 21:47 Dose: 80 mg Calcitriol (Rocaltrol -) 0.25 mcg PO DAILY [facility] Last Admin: 03/02/19 09:46 Dose: 0.25 mcg Docusate Sodium (Colace -) 100 mg PO TID [facility] Last Admin: 03/02/19 05:56 Dose: Not Given Ferrous Sulfate (Feosol -) 325 mg PO BID [facility] Last Admin: 03/02/19 09:46 Dose: 325 mg Furosemide (Lasix -) 40 mg PO DAILY [facility] Last Admin: 03/01/19 09:33 Dose: 40 mg Heparin Sodium (Porcine) (Heparin -) 5,000 unit SQ BID [facility] Last Admin: 03/02/19 09:46 Dose: 5,000 unit Hydralazine HCl (Apresoline -) 100 mg PO TID [facility] Last Admin: 03/02/19 05:56 Dose: Not Given Ceftriaxone Sodium 1 gm/ (Dextrose) 50 mls @ 100 mls/hr IVPB Q24H [facility] Last Admin: 03/01/19 16:28 Dose: 100 mls/hr Metronidazole (Flagyl 500mg Premixed Ivpb -) 500 mg in 100 mls @ 100 mls/hr IVPB Q8H [facility] Last Admin: 03/02/19 00:56 Dose: 100 mls/hr Sodium Chloride (Normal Saline -) 250 mls @ 3,000 mls/hr IV PRN PRN PRN Reason: Hypotension during Dialysis Stop: 03/03/19 13:50 Vancomycin HCl 1,000 mg/ (Dextrose) 250 mls @ 166.667 mls/hr IVPB ONCE ONE; Protocol Stop: 03/02/19 16:34 Insulin Aspart (Novolog Vial Sliding Scale -) 1 vial SQ ACHS [facility]; Protocol Last Admin: 03/02/19 11:41 Dose: Not Given Isosorbide Mononitrate (Imdur -) 60 mg PO DAILY [facility] Last Admin: 03/01/19 09:33 Dose: 60 mg Labetalol HCl (Normodyne -) 300 mg PO BID [facility] Last Admin: 03/01/19 21:48 Dose: 300 mg Lisinopril (Prinivil) 40 mg PO DAILY [facility] Last Admin: 03/01/19 09:33 Dose: 40 mg Nifedipine (Procardia Xl -) 60 mg PO BID [facility] Last Admin: 03/01/19 21:48 Dose: 60 mg Oxycodone HCl (Roxicodone -) 5 mg PO Q8H PRN PRN Reason: PAIN Last Admin: 03/02/19 12:48 Dose: 5 mg Senna (Senna -) 1 tab PO BID [facility] Last Admin: 03/02/19 10:19 Dose: Not Given Spironolactone (Aldactone -) 50 mg PO DAILY [facility] Last Admin: 03/01/19 09:33 Dose: 50 mg - Objective Vital Signs: Vital Signs Temperature 97.6 F 03/02/19 14:10 Pulse Rate 51 L 03/02/19 14:10 Respiratory Rate 18 03/02/19 14:10 Blood Pressure 186/84 H 03/02/19 14:10 O2 Sat by Pulse Oximetry (%) 94 L 03/02/19 09:00 Constitutional: Yes: No Distress Cardiovascular: Yes: Regular Rate and Rhythm, S1, S2 Respiratory: Yes: Diminished Gastrointestinal: Yes: Normal Bowel Sounds, Soft. No: Tenderness Extremities: Yes: Other (R FOOT DECREASED SWELLING/ ERYTHEMA; 2ND R TOE WITH DRY GANGRENE) Labs: CBC, BMP 02/28/19 06:03 02/28/19 06:03 INR, PTT INR 1.08 (0.83-1.09) 02/27/19 12:34 Assessment/Plan GANGRENE R 2ND TOE CELLULITIS R FOOT IMPROVED] ESRD CONTINUE CEFTRIAXONE/ FLAGYL REDOSE VANCOMYCIN FOR AMPUTATION
[2019-03-02] MEDS ORDERED: cefTRIAXone SODIUM 1 GM VIAL ONE (16:53)
[2019-03-02] MEDS ORDERED: DEXTROSE 5%-WATER - 50 ML IVPB ONE (16:53)
[2019-03-02] MEDS: SPIRONOLACTONE 25 MG TABLET (FP) PO SCH (17:00)
[2019-03-02] MEDS: LABETALOL HCL 100 MG TABLET (FP) PO SCH ×2 (17:00→22:08)
[2019-03-02] MEDS: ISOSORBIDE MONONITRATE 60 MG TAB.SR.24H (FP) PO SCH (17:00)
[2019-03-02] MEDS: NIFEdipine E.R 60 MG TABLET (UD) PO SCH ×2 (17:01→22:08)
[2019-03-02] MEDS: LISINOPRIL 20 MG TABLET (FP) PO SCH (17:01)
[2019-03-02] MEDS: CEFTRIAXONE 1 GM in DEXTROSE 5%-WATER - 50 ML IVPB SCH (17:07)
[2019-03-02] MEDS: FUROSEMIDE 40 MG TABLET (FP) PO SCH (18:00)
--- NOTE | 2019-03-02 19:04 | PN ---
Progress Note, Physician Chief Complaint: right foot 2nd toe gangrene, sent by vascular surgery History of Present Illness: Patient is a 68 year old male with a PMH significant for ESRD, HTN, CAD, [place], PVD , acute/subacute hemorrhagic stroke (06/2018), hypertensive urgency history, and was hospitalized at 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 He presented to the ED on the advice of vascular surgery for gangrene of his right foot second toe. Patient admitted for a CTA, antibiotics and possible amputation of gangrenous 2nd digit, of right foot. - Current Medication List Current Medications: Active Medications Acetaminophen (Tylenol -) 650 mg PO Q4H PRN PRN Reason: PAIN LEVEL 1-5 Atorvastatin Calcium (Lipitor -) 80 mg PO HS [facility] Last Admin: 03/01/19 21:47 Dose: 80 mg Calcitriol (Rocaltrol -) 0.25 mcg PO DAILY [facility] Last Admin: 03/02/19 09:46 Dose: 0.25 mcg Docusate Sodium (Colace -) 100 mg PO TID [facility] Last Admin: 03/02/19 15:13 Dose: Not Given Ferrous Sulfate (Feosol -) 325 mg PO BID [facility] Last Admin: 03/02/19 09:46 Dose: 325 mg Furosemide (Lasix -) 40 mg PO DAILY [facility] Last Admin: 03/02/19 18:00 Dose: 40 mg Heparin Sodium (Porcine) (Heparin -) 5,000 unit SQ BID [facility] Last Admin: 03/02/19 09:46 Dose: 5,000 unit Hydralazine HCl (Apresoline -) 100 mg PO TID [facility] Last Admin: 03/02/19 17:00 Dose: Not Given Ceftriaxone Sodium 1 gm/ (Dextrose) 50 mls @ 100 mls/hr IVPB Q24H [facility] Last Admin: 03/02/19 17:07 Dose: 100 mls/hr Metronidazole (Flagyl 500mg Premixed Ivpb -) 500 mg in 100 mls @ 100 mls/hr IVPB Q8H [facility] Last Admin: 03/02/19 17:07 Dose: 100 mls/hr Sodium Chloride (Normal Saline -) 250 mls @ 3,000 mls/hr IV PRN PRN PRN Reason: Hypotension during Dialysis Stop: 03/03/19 13:50 Insulin Aspart (Novolog Vial Sliding Scale -) 1 vial SQ ACHS [facility]; Protocol Last Admin: 03/02/19 17:46 Dose: Not Given Isosorbide Mononitrate (Imdur -) 60 mg PO DAILY [facility] Last Admin: 03/02/19 17:00 Dose: 60 mg Labetalol HCl (Normodyne -) 300 mg PO BID [facility] Last Admin: 03/02/19 17:00 Dose: 300 mg Lisinopril (Prinivil) 40 mg PO DAILY [facility] Last Admin: 03/02/19 17:01 Dose: 40 mg Nifedipine (Procardia Xl -) 60 mg PO BID [facility] Last Admin: 03/02/19 17:01 Dose: 60 mg Oxycodone HCl (Roxicodone -) 5 mg PO Q8H PRN PRN Reason: PAIN Last Admin: 03/02/19 12:48 Dose: 5 mg Senna (Senna -) 1 tab PO BID [facility] Last Admin: 03/02/19 10:19 Dose: Not Given Spironolactone (Aldactone -) 50 mg PO DAILY [facility] Last Admin: 03/02/19 17:00 Dose: 50 mg - Objective Vital Signs: Vital Signs Temperature 97.6 F 03/02/19 14:10 Pulse Rate 61 03/02/19 18:13 Respiratory Rate 18 03/02/19 18:13 Blood Pressure 171/74 H 03/02/19 18:13 O2 Sat by Pulse Oximetry (%) 94 L 03/02/19 09:00 Constitutional: Yes: Calm, [place] Eyes: Yes: WNL HENT: Yes: Atraumatic Neck: Yes: WNL, Supple Cardiovascular: Yes: WNL, Tachycardia Respiratory: Yes: WNL, Regular Gastrointestinal: Yes: Normal Bowel Sounds, Soft ...Rectal Exam: Yes: Deferred Genitourinary: Yes: WNL Musculoskeletal: Yes: Other (left BKA) Extremities: Yes: Other (right 2nd toe gangrene, 3rd toe now discolored as well. ) Edema: Yes (right foot) Integumentary: Yes: Erythema Wound/Incision: Yes: Open to air Neurological: Yes: Alert, Oriented, Lethargy Psychiatric: Yes: WNL, Alert, Oriented Labs: CBC, BMP 02/28/19 06:03 02/28/19 06:03 INR, PTT INR 1.08 (0.83-1.09) 02/27/19 12:34 Problem List - Problems (1) Gangrene of toe of right foot Assessment/Plan: Patient admitted from wound care for evaluation of right second digit gangrenous 2nd toe, right foot. CTA with runoff shows two vessel runoff into the foot. No stenosis. per vascular note, no vascular interventions. Patient for a toe amputation with podiatry. Patient initially on Zosyn but had adverse reaction in the ED and antibiotics changed to Flagyl and ceftriaxone. ID following. Blood cultures negative. Code(s): I96 - GANGRENE, NOT ELSEWHERE CLASSIFIED (2) Acquired absence of left leg below knee Assessment/Plan: s/p left BKA. Code(s): Z89.512 - ACQUIRED ABSENCE OF LEFT LEG BELOW KNEE (3) Hypertensive urgency Assessment/Plan: BP elevated on admission and continues to be elevated. continue home medications and monitor BP. patient with history of hypertensive urgency and recent hemorrhagic CVA (2018) On Lisinopril 40mg, Imdur 60mg daily, Procardia xl 60mg qd, hydralazine 100mg tid, labetalol 300mg bid consider cardiology consulted for hypertensive urgency and surgery clearance. Code(s): I16.0 - HYPERTENSIVE URGENCY (4) Anemia Assessment/Plan: monitor with daily labs Code(s): D64.9 - ANEMIA, UNSPECIFIED Qualifiers: Vitamin B12 deficiency anemia type: other B12 deficiency (5) Congestive heart failure Assessment/Plan: monitor of volume overload. on lasix daily weights Code(s): I50.9 - HEART FAILURE, UNSPECIFIED (6) Diabetes Assessment/Plan: start on novolog ss, monitor BGMs. Code(s): E11.9 - TYPE 2 DIABETES MELLITUS WITHOUT COMPLICATIONS Qualifiers: Diabetes mellitus type: type 2 Diabetes mellitus assisted insulin use: without watermaster use Diabetes mellitus complication detail: with chronic kidney disease Chronic kidney disease stage: on chronic dialysis (7) Diastolic CHF Assessment/Plan: on dialysis for volume overload. monitor weights Code(s): I50.30 - UNSPECIFIED DIASTOLIC (CONGESTIVE) HEART FAILURE Qualifiers: Heart failure chronicity: chronic Qualified Code(s): I50.32 - Chronic diastolic (congestive) heart failure (8) ESRD (end stage renal disease) Assessment/Plan: dialysis per renal. had dialysis today. monitor kidney function. Code(s): N18.6 - END STAGE RENAL DISEASE (9) Type 2 diabetes mellitus with other skin ulcer Code(s): E11.622 - TYPE 2 DIABETES MELLITUS WITH OTHER SKIN ULCER; L98.499 - NON -PRESSURE CHRONIC ULCER OF SKIN OF SITES W UNSP SEVERITY (10) Prophylactic measure Assessment/Plan: fen renal diet/diabetic diet monitor electrolytes tolerating po prophy heparin bid full code. Code(s): Z29.9 - ENCOUNTER FOR PROPHYLACTIC MEASURES, UNSPECIFIED Visit type - Emergency Visit Emergency Visit: Yes ED Registration Date: 02/27/19 Care time: The patient presented to the Emergency Department on the above date and was hospitalized for further evaluation of their emergent condition. - New Patient This patient is new to me today: No - Critical Care Critical Care patient: No - Discharge Referral Referred to [facility] Med P.C.: No
[2019-03-02] MEDS: ATORVASTATIN CA 80 MG TABLET (FP) PO SCH (22:07)
[2019-03-03] MEDS: hydrALAZINE HCL 50 MG TABLET (FP) PO SCH ×3 (07:05→21:27)
[2019-03-03] MEDS: INSULIN SLIDING SCALE (NOVOLOG) 1 VIAL SQ SCH ×4 (07:06→21:30)
[2019-03-03] MEDS: DOCUSATE SODIUM 100 MG CAPSULE (FP) PO SCH ×3 (07:06→21:41)
--- NOTE | 2019-03-03 07:38 | PN ---
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 He presented to the ED on the advice of vascular surgery for gangrene of his right foot second toe. Patient admitted for a CTA, antibiotics and possible amputation of gangrenous 2nd digit, of right foot. - Current Medication List Current Medications: Active Medications Acetaminophen (Tylenol -) 650 mg PO Q4H PRN PRN Reason: PAIN LEVEL 1-5 Atorvastatin Calcium (Lipitor -) 80 mg PO HS [facility] Last Admin: 03/02/19 22:07 Dose: 80 mg Calcitriol (Rocaltrol -) 0.25 mcg PO DAILY [facility] Last Admin: 03/02/19 09:46 Dose: 0.25 mcg Docusate Sodium (Colace -) 100 mg PO TID [facility] Last Admin: 03/03/19 07:06 Dose: Not Given Ferrous Sulfate (Feosol -) 325 mg PO BID [facility] Last Admin: 03/02/19 22:07 Dose: 325 mg Furosemide (Lasix -) 40 mg PO DAILY [facility] Last Admin: 03/02/19 18:00 Dose: 40 mg Heparin Sodium (Porcine) (Heparin -) 5,000 unit SQ BID [facility] Last Admin: 03/02/19 22:07 Dose: 5,000 unit Hydralazine HCl (Apresoline -) 100 mg PO TID [facility] Last Admin: 03/03/19 07:05 Dose: Not Given Ceftriaxone Sodium 1 gm/ (Dextrose) 50 mls @ 100 mls/hr IVPB Q24H [facility] Last Admin: 03/02/19 17:07 Dose: 100 mls/hr Metronidazole (Flagyl 500mg Premixed Ivpb -) 500 mg in 100 mls @ 100 mls/hr IVPB Q8H [facility] Last Admin: 03/03/19 01:00 Dose: 100 mls/hr Sodium Chloride (Normal Saline -) 250 mls @ 3,000 mls/hr IV PRN PRN PRN Reason: Hypotension during Dialysis Stop: 03/03/19 13:50 Insulin Aspart (Novolog Vial Sliding Scale -) 1 vial SQ ACHS [facility]; Protocol Last Admin: 03/03/19 07:06 Dose: Not Given Isosorbide Mononitrate (Imdur -) 60 mg PO DAILY [facility] Last Admin: 03/02/19 17:00 Dose: 60 mg Labetalol HCl (Normodyne -) 300 mg PO BID [facility] Last Admin: 03/02/19 22:08 Dose: 300 mg Lisinopril (Prinivil) 40 mg PO DAILY [facility] Last Admin: 03/02/19 17:01 Dose: 40 mg Nifedipine (Procardia Xl -) 60 mg PO BID [facility] Last Admin: 03/02/19 22:08 Dose: 60 mg Oxycodone HCl (Roxicodone -) 5 mg PO Q8H PRN PRN Reason: PAIN Last Admin: 03/02/19 12:48 Dose: 5 mg Senna (Senna -) 1 tab PO BID [facility] Last Admin: 03/02/19 22:09 Dose: Not Given Spironolactone (Aldactone -) 50 mg PO DAILY [facility] Last Admin: 03/02/19 17:00 Dose: 50 mg - Objective Vital Signs: Vital Signs Temperature 98.3 F 03/03/19 06:00 Pulse Rate 61 03/03/19 06:00 Respiratory Rate 18 03/03/19 06:00 Blood Pressure 108/50 L 03/03/19 06:00 O2 Sat by Pulse Oximetry (%) 98 03/02/19 21:00 Constitutional: Yes: Well Nourished, No Distress, Calm Eyes: Yes: WNL, Conjunctiva Clear, EOM Intact HENT: Yes: WNL, Atraumatic, Normocephalic Neck: Yes: WNL, Supple, Trachea Midline Cardiovascular: Yes: WNL, Regular Rate and Rhythm Respiratory: Yes: WNL, Regular, CTA Bilaterally Gastrointestinal: Yes: WNL, Normal Bowel Sounds, Soft ...Rectal Exam: Yes: Deferred Genitourinary: Yes: WNL Musculoskeletal: Yes: WNL (left great toe gangrenous) Extremities: Yes: Other (right 2nd and 3rd tor discolored) Edema: No Peripheral Pulses WNL: No Peripheral Pulses: Left Doralis Pedis: 2+, Right Dorsalis Pedis: 2+ Integumentary: Yes: WNL, Other (right 2nd and 3rd toe discolored) Neurological: Yes: WNL, Alert, Oriented ...Motor Strength: WNL Psychiatric: Yes: WNL, Alert, Oriented Labs: CBC, BMP 02/28/19 06:03 02/28/19 06:03 INR, PTT INR 1.08 (0.83-1.09) 02/27/19 12:34 Problem List - Problems (1) Gangrene of toe of right foot Assessment/Plan: Patient admitted from wound care for evaluation of right second digit gangrenous 2nd toe, right foot. CTA with runoff shows two vessel runoff into the foot. No stenosis. per vascular note, no vascular interventions. Patient for planned toe amputation with today at 4pm pendong cardiology clearance continue abx Flagyl and ceftriaxone. ID following and appreciate input Blood cultures NGTD Code(s): I96 - GANGRENE, NOT ELSEWHERE CLASSIFIED (2) Prophylactic measure Assessment/Plan: FEN NPO for OR today resume renal diet after OR IVF while NPO DVT Proph heparin sq bud early ambulation after surgery Dispo maintain as inpatient full code discharge planning Code(s): Z29.9 - ENCOUNTER FOR PROPHYLACTIC MEASURES, UNSPECIFIED (3) Acquired absence of left leg below knee Assessment/Plan: s/p BKA Code(s): Z89.512 - ACQUIRED ABSENCE OF LEFT LEG BELOW KNEE (4) Anemia Assessment/Plan: daily CBC continue ferrous sulfate, epogen transfuse if hgb < 8.0 or symptomatic Code(s): D64.9 - ANEMIA, UNSPECIFIED Qualifiers: Vitamin B12 deficiency anemia type: other B12 deficiency (5) ESRD (end stage renal disease) Assessment/Plan: dialysis per renal. - had dialysis yesterday, planned for tomorrow -nephrology following and appreciate recommendations -monitor kidney function Code(s): N18.6 - END STAGE RENAL DISEASE (6) Congestive heart failure Assessment/Plan: monitor of volume overload -removed 2L fluid yesterday on HD on lasix daily weights Code(s): I50.9 - HEART FAILURE, UNSPECIFIED (7) Hypertension Assessment/Plan: BP elevated on admission, now normotensive -continue home medications and monitor BP. 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 - New Patient This patient is new to me today: Yes Date on this admission: 03/03/19 - Critical Care Critical Care patient: No - Discharge Referral Referred to [facility] Med P.C.: No
[2019-03-03 08:06] LABS: BASO % 0.6 % (0-2.0); HEMATOCRIT 24.7 % (35.4-49); HEMOGLOBIN 8.5 GM/dL (11.7-16.9); LYMPH % 12.7 % (8-40); MCH 34.3 pg (25.7-33.7); MCHC 34.6 g/dl (32.0-35.9); MEAN CELL VOLUME 99.1 fl (80-96); MEAN PLT VOLUME 8.5 fl (7.5-11.1); MONO % 11.1 % (3.8-10.2); NEUT % 73.6 % (42.8-82.8); PLATELET COUNT 215 K/MM3 (134-434); RBC 2.49 M/mm3 (4.00-5.60); RDW 15.9 % (11.9-15.9)
[2019-03-03 08:10] LABS: INR 1.18 (0.83-1.09); PROTHROMBIN TIME (PATIENT) 13.9 SEC (9.7-13.0)
[2019-03-03 08:27] LABS: BILIRUBIN,TOTAL 0.7 mg/dL (0.2-1); BLOOD UREA NITROGEN 20.6 mg/dL (7-18); CALCIUM 9.1 mg/dL (8.5-10.1); CREATININE 3.5 mg/dL (0.55-1.3); MAGNESIUM 1.8 mg/dL (1.8-2.4); POTASSIUM 4.1 mmol/L (3.5-5.1); TOT PROT 6.8 g/dl (6.4-8.2)
[2019-03-03] MEDS: ISOSORBIDE MONONITRATE 60 MG TAB.SR.24H (FP) PO SCH ×2 (09:27→18:53)
[2019-03-03] MEDS: FERROUS SO4 325 MG TABLET (FP) PO SCH ×2 (09:27→21:27)
[2019-03-03] MEDS: SPIRONOLACTONE 25 MG TABLET (FP) PO SCH ×2 (09:27→18:53)
[2019-03-03] MEDS: HEPARIN NA (PORCINE) 5,000 UNITS/ML 1ML VIAL SQ SCH ×2 (09:27→21:27)
[2019-03-03] MEDS: SENNOSIDES 8.6MG TABLET (FP) PO SCH ×2 (09:28→21:41)
[2019-03-03] MEDS: CALCITRIOL 0.25 MCG CAPSULE (FP) PO SCH (09:28)
[2019-03-03] MEDS: LABETALOL HCL 100 MG TABLET (FP) PO SCH ×2 (09:28→21:28)
[2019-03-03] MEDS: LISINOPRIL 20 MG TABLET (FP) PO SCH ×2 (09:28→18:53)
[2019-03-03] MEDS: NIFEdipine E.R 60 MG TABLET (UD) PO SCH ×2 (09:28→21:28)
[2019-03-03] MEDS: FUROSEMIDE 40 MG TABLET (FP) PO SCH ×2 (09:28→18:58)
--- NOTE | 2019-03-03 10:35 | CON.CARD ---
Consult Consult Specialty:: cardiology Reason for Consultation:: pre-op clearance (toe amputation) - History of Present Illness Chief Complaint: Pt A&Ox3; no chest pain, dizziness, dyspnea. History of Present Illness: The patient is a 69 year old male (b. [place]), with a significant PMH of ESRD ( dialysis MWF) HTN, diastolic CHF, CAD, "small WI" in 2016, treated at [facility] (no hx coronary angiogram; stress MIBI 05/2018: small area of mildly intense periinarct inferoapical ischemia)), PAD s/p L BKA (07/04/18) c/b poor wound healing, who presents to the emergency department with severe right foot pain that began 15 days ago. The patient notices his right 2nd digit has been infected and necrotic in nature for 4 months but progressively worsened today. He denies chest pain, shortness of breath, headache and dizziness. Denies numbness and tingling. Denies fever, chills, nausea, vomit, diarrhea and constipation.Denies dysuria, frequency, urgency and hematuria. Allergies: NKDA Past surgical history: appendectomy Social history: None reported PCP: Wound Care- Dr. Paiz - History Source History Provided By: Patient, Medical Record Limitations to Obtaining History: No Limitations - Past Medical History Cardio/Vascular: Yes: CAD, CHF, HTN, WI, Murmur, Other (PAD) Pulmonary: Yes: Other Renal/: Yes: Renal Failure, Hemodialysis Heme/Onc: Yes: Anemia Musculoskeletal: Yes: Other Endocrine: Yes: Diabetes Mellitus Dermatology: Yes: Other (maya) Additional Medical History: DM - Past Surgical History Past Surgical History: Yes: Amputation (Left BKA ), AV Fistula/Graft - Alcohol/Substance Use Hx Alcohol Use: No History of Substance Use: reports: None - Smoking History Smoking history: Never smoked Have you smoked in the past 12 months: No If you are a former smoker, when did you quit?: many years ago - Social History Usual Living Arrangement: With Significant Other ADL: Family Assistance History of Recent Travel: No Home Medications - Allergies Allergies/Adverse Reactions: Allergies Allergy/AdvReac Type Severity Reaction Status Date / Time piperacillin [From Zosyn] Allergy Verified 02/27/19 14:29 tazobactam [From Zosyn] Allergy Verified 02/27/19 14:29 - Home Medications Home Medications: Ambulatory Orders Calcitriol [Calcitriol -] 0.25 mcg PO DAILY #30 capsule 05/27/18 Furosemide [Lasix -] 40 mg PO DAILY #30 tablet 05/27/18 Ferrous Sulfate [Feosol] 325 mg PO BID #60 ud 07/09/18 Sennosides [Senna -] 1 tab PO BID #60 tablet 07/09/18 Atorvastatin Ca [Lipitor] 80 mg PO HS #30 tablet 07/26/18 Docusate Sodium [Colace -] 100 mg PO TID capsule 07/26/18 Hydralazine HCl 100 mg PO TID #90 tablet 07/26/18 Isosorbide Mononitrate [Imdur -] 2 tab PO DAILY 30 Days #60 tab.sr.24h 07/26/18 Labetalol HCl [Normodyne -] 300 mg PO BID #180 tablet 07/26/18 Lisinopril [Prinivil] 40 mg PO DAILY #60 tablet 07/26/18 Nifedipine ER [Procardia XL -] 60 mg PO BID #60 tab.er.24 07/26/18 Sevelamer HCl [Renagel] 800 mg PO TID 30 Days #90 tablet 07/26/18 Spironolactone [Aldactone -] 2 tab PO DAILY 30 Days #60 tablet 07/26/18 Oxycodone HCl 5 mg PO Q8H PRN #5 tablet MDD 3 tabs 02/20/19 Family Disease History - Family Disease History Family Disease History: Diabetes: Father (did not know him), Mother (did not know him), Sister, Other: Mother, Son (4, healthy), Daughter (4, healthy) Review of Systems - Review of Systems Constitutional: reports: Weakness Eyes: reports: No Symptoms HENT: reports: No Symptoms Neck: reports: No Symptoms Cardiovascular: reports: No Symptoms Respiratory: reports: No Symptoms Gastrointestinal: reports: No Symptoms Genitourinary: reports: Other (on hemodialysis) Musculoskeletal: reports: Muscle Weakness Integumentary: reports: Wound Neurological: reports: Weakness - Risk Factors Known Risk Factors: Yes: Age, Gender, Hypercholesterolemia, Hypertension, Physical Inactivity, Prior WI /Emb Stroke, Other (ESRD-->HD) Vital Signs: Vital Signs Temperature 98.8 F 03/03/19 09:24 Pulse Rate 58 L 03/03/19 09:24 Respiratory Rate 18 03/03/19 09:24 Blood Pressure 130/60 03/03/19 09:24 O2 Sat by Pulse Oximetry (%) 94 L 03/03/19 09:30 Constitutional: Yes: No Distress Eyes: Yes: WNL HENT: Yes: WNL Neck: Yes: WNL Respiratory: Yes: WNL Gastrointestinal: Yes: WNL Renal/: Yes: Other (HDialysis). No: Anuria Cardiovascular: Yes: WNL JVD: No Carotid Bruit: No PMI: Displaced Heart Sounds: Yes: S1, Split S2 Murmur: Yes: Systolic Murmur, Grade 2 Musculoskeletal: Yes: Muscle Weakness Extremities: Yes: Cool Edema: No Peripheral Pulses WNL: No Peripheral Pulses: 1+ Left Doralis Pedis, 1+ Right Dorsalis Pedis Integumentary: Yes: Other (blackened 2nd toe, right foot) Psychiatric: Yes: Alert, Oriented - Other Data Labs, Other Data: CBC, BMP 03/03/19 06:30 03/03/19 06:30 INR, PTT INR 1.18 (0.83-1.09) H 03/03/19 06:30 Ejection Fraction %: LVEF > or = 40 % Problem List - Problems (1) Gangrene of toe of right foot Assessment/Plan: Pt underwent left BKA 05/2018 with evident post-op complication. Stress MIBI 05/2018 small area of mildly intense periinfarct inferoapical ischemia. ECHO: normal LVEF. From a cardiac perspective, pt is cleared to undergo right 2nd toe amputation. Code(s): I96 - GANGRENE, NOT ELSEWHERE CLASSIFIED (2) AV fistula Code(s): I77.0 - ARTERIOVENOUS FISTULA, ACQUIRED (3) Acquired absence of left leg below knee Code(s): Z89.512 - ACQUIRED ABSENCE OF LEFT LEG BELOW KNEE (4) ESRD needing dialysis Assessment/Plan: on HD 3x/week Code(s): N18.6 - END STAGE RENAL DISEASE; Z99.2 - DEPENDENCE ON RENAL DIALYSIS (5) Gangrene of toe of right foot Code(s): I96 - GANGRENE, NOT ELSEWHERE CLASSIFIED (6) History of left below knee amputation Code(s): Z89.512 - ACQUIRED ABSENCE OF LEFT LEG BELOW KNEE (7) Hypertension Code(s): I10 - ESSENTIAL (PRIMARY) HYPERTENSION Qualifiers: Hypertension type: essential hypertension Qualified Code(s): I10 - Essential (primary) hypertension (8) PAD (peripheral artery disease) Code(s): I73.9 - PERIPHERAL VASCULAR DISEASE, UNSPECIFIED (9) Sepsis [facility] [place] Code(s): A41.9 - SEPSIS, UNSPECIFIED ORGANISM (10) Diastolic CHF Code(s): I50.30 - UNSPECIFIED DIASTOLIC (CONGESTIVE) HEART FAILURE Qualifiers: Heart failure chronicity: chronic Qualified Code(s): I50.32 - Chronic diastolic (congestive) heart failure
[2019-03-03] MEDS ORDERED: VANCOMYCIN 1 GRAM (PRE-DOCKED) 1,000 MG/250 ML BAG IVPB ONE ×3 (13:16→19:30)
--- NOTE | 2019-03-03 13:38 | PN ---
Progress Note, Physician History of Present Illness: Pt seen and examined at bedside. He is awake and alert. He denies fevers or chills. - Current Medication List Current Medications: Active Medications Acetaminophen (Tylenol -) 650 mg PO Q4H PRN PRN Reason: PAIN LEVEL 1-5 Atorvastatin Calcium (Lipitor -) 80 mg PO HS [facility] Last Admin: 03/02/19 22:07 Dose: 80 mg Calcitriol (Rocaltrol -) 0.25 mcg PO DAILY [facility] Last Admin: 03/03/19 09:28 Dose: Not Given Docusate Sodium (Colace -) 100 mg PO TID [facility] Last Admin: 03/03/19 07:06 Dose: Not Given Ferrous Sulfate (Feosol -) 325 mg PO BID [facility] Last Admin: 03/03/19 09:27 Dose: Not Given Furosemide (Lasix -) 40 mg PO DAILY [facility] Last Admin: 03/03/19 09:28 Dose: Not Given Heparin Sodium (Porcine) (Heparin -) 5,000 unit SQ BID [facility] Last Admin: 03/03/19 09:27 Dose: Not Given Hydralazine HCl (Apresoline -) 100 mg PO TID [facility] Last Admin: 03/03/19 07:05 Dose: Not Given Ceftriaxone Sodium 1 gm/ (Dextrose) 50 mls @ 100 mls/hr IVPB Q24H [facility] Last Admin: 03/02/19 17:07 Dose: 100 mls/hr Metronidazole (Flagyl 500mg Premixed Ivpb -) 500 mg in 100 mls @ 100 mls/hr IVPB Q8H [facility] Last Admin: 03/03/19 09:25 Dose: 100 mls/hr Sodium Chloride (Normal Saline -) 250 mls @ 3,000 mls/hr IV PRN PRN PRN Reason: Hypotension during Dialysis Stop: 03/03/19 13:50 Vancomycin HCl 1,000 mg/ (Dextrose) 250 mls @ 166.667 mls/hr IVPB ONCE ONE; Protocol Stop: 03/03/19 14:45 Insulin Aspart (Novolog Vial Sliding Scale -) 1 vial SQ ACHS [facility]; Protocol Last Admin: 03/03/19 12:05 Dose: Not Given Isosorbide Mononitrate (Imdur -) 60 mg PO DAILY [facility] Last Admin: 03/03/19 09:27 Dose: Not Given Labetalol HCl (Normodyne -) 300 mg PO BID [facility] Last Admin: 03/03/19 09:28 Dose: Not Given Lisinopril (Prinivil) 40 mg PO DAILY [facility] Last Admin: 03/03/19 09:28 Dose: Not Given Nifedipine (Procardia Xl -) 60 mg PO BID [facility] Last Admin: 03/03/19 09:28 Dose: Not Given Oxycodone HCl (Roxicodone -) 5 mg PO Q8H PRN PRN Reason: PAIN Last Admin: 03/02/19 12:48 Dose: 5 mg Senna (Senna -) 1 tab PO BID [facility] Last Admin: 03/03/19 09:28 Dose: Not Given Spironolactone (Aldactone -) 50 mg PO DAILY [facility] Last Admin: 03/03/19 09:27 Dose: Not Given - Objective Vital Signs: Vital Signs Temperature 98.8 F 03/03/19 09:24 Pulse Rate 58 L 03/03/19 09:24 Respiratory Rate 18 03/03/19 09:24 Blood Pressure 130/60 03/03/19 09:24 O2 Sat by Pulse Oximetry (%) 94 L 03/03/19 09:30 Constitutional: Yes: Calm Eyes: Yes: Conjunctiva Clear HENT: Yes: Atraumatic Neck: Yes: Supple Cardiovascular: Yes: S1, S2 Respiratory: Yes: CTA Bilaterally Gastrointestinal: Yes: Soft Musculoskeletal: Yes: Other (bka) Wound/Incision: Yes: Open to air Neurological: Yes: Oriented Psychiatric: Yes: Oriented Labs: CBC, BMP 03/03/19 06:30 03/03/19 06:30 INR, PTT INR 1.18 (0.83-1.09) H 03/03/19 06:30 Assessment/Plan Current Medications Generic Name Dose Route Start Last Admin Trade Name Freq PRN Reason Stop Dose Admin Acetaminophen 650 mg 02/27/19 17:35 Tylenol - PO Q4H PRN PAIN LEVEL 1-5 Atorvastatin Calcium 80 mg 02/27/19 22:00 03/02/19 22:07 Lipitor - PO 80 mg HS [facility] Administration Calcitriol 0.25 mcg 02/28/19 10:00 03/03/19 09:28 Rocaltrol - PO Not Given DAILY [facility] Docusate Sodium 100 mg 02/27/19 22:00 03/03/19 07:06 Colace - PO Not Given TID [facility] Ferrous Sulfate 325 mg 02/27/19 22:00 03/03/19 09:27 Feosol - PO Not Given BID [facility] Furosemide 40 mg 02/28/19 10:00 03/03/19 09:28 Lasix - PO Not Given DAILY [facility] Heparin Sodium (Porcine) 5,000 unit 02/27/19 22:00 03/03/19 09:27 Heparin - SQ Not Given BID [facility] Hydralazine HCl 100 mg 02/27/19 22:00 03/03/19 07:05 Apresoline - PO Not Given TID [facility] Ceftriaxone Sodium 1 gm/ 50 mls @ 100 mls/hr 02/27/19 16:15 03/02/19 17:07 Dextrose IVPB 100 mls/hr Q24H [facility] Administration Metronidazole 500 mg in 100 mls @ 100 mls/hr 02/27/19 16:15 03/03/19 09:25 Flagyl 500mg Premixed Ivpb - IVPB 100 mls/hr Q8H [facility] Administration Sodium Chloride 250 mls @ 3,000 mls/hr 03/02/19 13:51 Normal Saline - IV 03/03/19 13:50 PRN PRN Hypotension during Dialysis Vancomycin HCl 1,000 mg/ 250 mls @ 166.667 mls/hr 03/03/19 13:16 Dextrose IVPB 03/03/19 14:45 ONCE ONE Protocol Insulin Aspart 1 vial 02/27/19 22:00 03/03/19 12:05 Novolog Vial Sliding Scale - SQ Not Given ACHS [facility] Protocol Isosorbide Mononitrate 60 mg 02/28/19 10:00 03/03/19 09:27 Imdur - PO Not Given DAILY [facility] Labetalol HCl 300 mg 02/27/19 22:00 03/03/19 09:28 Normodyne - PO Not Given BID [facility] Lisinopril 40 mg 02/28/19 10:00 03/03/19 09:28 Prinivil PO Not Given DAILY [facility] Nifedipine 60 mg 02/27/19 22:00 03/03/19 09:28 Procardia Xl - PO Not Given BID [facility] Oxycodone HCl 5 mg 02/27/19 17:45 03/02/19 12:48 Roxicodone - PO 5 mg Q8H PRN Administration PAIN Senna 1 tab 02/27/19 22:00 03/03/19 09:28 Senna - PO Not Given BID [facility] Spironolactone 50 mg 02/28/19 10:00 03/03/19 09:27 Aldactone - PO Not Given DAILY [facility] Impression 1. ESRD on HD 2. anemia 3. DM 4. HTN 5. toe infection/gangrene 6. PVD 7. cavernous malformation Plan - HD tomorrow - do not hold bp meds on HD days - vascular follow up - renal diet - pt is a MWF HD
[2019-03-03] MEDS ORDERED: SODIUM CHLORIDE 250 ML IV PRN (13:39)
[2019-03-03] MEDS ORDERED: LIDOCAINE HCL 2% (20ML MULTI-DOSE VIAL) NR ONE (16:14)
[2019-03-03] MEDS ORDERED: LIDOCAINE HCL 2% (50ML VIAL) NR ONE (16:26)
[2019-03-03] MEDS: CEFTRIAXONE 1 GM in DEXTROSE 5%-WATER - 50 ML IVPB SCH (16:27)
[2019-03-03] MEDS ORDERED: ONDANSETRON 4 MG/2 ML VIAL IVPUSH PRN ×2 (16:56→17:26)
[2019-03-03] MEDS ORDERED: ACETAMINOPHEN 1000 MG/100 ML VIAL (NON FORMULARY) IVPB ONE ×2 (16:58→17:26)
[2019-03-03] MEDS ORDERED: SODIUM CHLORIDE 1,000 ML IV SCH ×2 (17:00→17:26)
--- NOTE | 2019-03-03 17:02 | OP ---
Operative Note - Note: Operative Date: 03/03/19 Pre-Operative Diagnosis: right second digit gangrene Operation: right second digit amputation Post-Operative Diagnosis: Same as Pre-op Surgeon: Hakan Garcia Anesthesia: Local, MAC Specimens Removed: right second digit, second metatarsal head Operative Report Dictated: Yes
[2019-03-03] MEDS ORDERED: VANCOMYCIN 1,000 MG VIAL (RESTRICTED TO ID ONLY) ONE (17:41)
[2019-03-03 19:10] LABS: HEP B CORE AB, TOT Positive (Negative)
[2019-03-03] MEDS: ATORVASTATIN CA 80 MG TABLET (FP) PO SCH (21:27)
[2019-03-04] MEDS: oxyCODONE HCL 5 MG TABLET PO PRN ×3 (00:49→20:58)
[2019-03-04] MEDS: DOCUSATE SODIUM 100 MG CAPSULE (FP) PO SCH ×3 (06:25→21:04)
[2019-03-04] MEDS: hydrALAZINE HCL 50 MG TABLET (FP) PO SCH ×4 (06:25→21:05)
[2019-03-04] MEDS: INSULIN SLIDING SCALE (NOVOLOG) 1 VIAL SQ SCH ×4 (06:38→21:04)
[2019-03-04] MEDS ORDERED: SODIUM CHLORIDE 250 ML IV PRN (06:40)
[2019-03-04] MEDS ORDERED: EPOETIN ALFA 2,000 UNIT/1 ML VIAL IVPUSH ONE ×2 (06:45→13:39)
[2019-03-04] MEDS ORDERED: INSULIN (NOVOLOG) ASPART 100 UNITS/ML 10ML VIAL ONE (07:33)
--- NOTE | 2019-03-04 07:49 | PN ---
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 He presented to the ED on the advice of vascular surgery for gangrene of his right foot second toe. Patient admitted for a CTA, antibiotics and possible amputation of gangrenous 2nd digit, of right foot. s/p 2nd toe amputation POD#1 - Current Medication List Current Medications: Active Medications Acetaminophen (Tylenol -) 650 mg PO Q4H PRN PRN Reason: PAIN LEVEL 1-5 Atorvastatin Calcium (Lipitor -) 80 mg PO HS [facility] Last Admin: 03/03/19 21:27 Dose: 80 mg Calcitriol (Rocaltrol -) 0.25 mcg PO DAILY [facility] Docusate Sodium (Colace -) 100 mg PO TID [facility] Last Admin: 03/04/19 06:25 Dose: Not Given Ferrous Sulfate (Feosol -) 325 mg PO BID [facility] Last Admin: 03/03/19 21:27 Dose: 325 mg Furosemide (Lasix -) 40 mg PO DAILY [facility] Last Admin: 03/03/19 18:58 Dose: 40 mg Heparin Sodium (Porcine) (Heparin -) 5,000 unit SQ BID [facility] Last Admin: 03/03/19 21:27 Dose: 5,000 unit Hydralazine HCl (Apresoline -) 100 mg PO TID [facility] Last Admin: 03/04/19 06:25 Dose: 100 mg Ceftriaxone Sodium 1 gm/ (Dextrose) 50 mls @ 100 mls/hr IVPB Q24H [facility] Metronidazole (Flagyl 500mg Premixed Ivpb -) 500 mg in 100 mls @ 100 mls/hr IVPB Q8H [facility] Last Admin: 03/04/19 00:50 Dose: 100 mls/hr Sodium Chloride (Normal Saline -) 1,000 mls @ 42 mls/hr IV ASDIR [facility] Last Admin: 03/03/19 17:45 Dose: 42 mls/hr Insulin Aspart (Novolog Vial Sliding Scale -) 1 vial SQ ACHS [facility]; Protocol Last Admin: 03/04/19 06:38 Dose: Not Given Isosorbide Mononitrate (Imdur -) 60 mg PO DAILY [facility] Last Admin: 03/03/19 18:53 Dose: 60 mg Labetalol HCl (Normodyne -) 300 mg PO BID [facility] Last Admin: 03/03/19 21:28 Dose: 300 mg Lisinopril (Prinivil) 40 mg PO DAILY [facility] Last Admin: 03/03/19 18:53 Dose: 40 mg Nifedipine (Procardia Xl -) 60 mg PO BID [facility] Last Admin: 03/03/19 21:28 Dose: 60 mg Ondansetron HCl (Zofran Injection) 4 mg IVPUSH Q6H PRN PRN Reason: NAUSEA AND/OR VOMITING Oxycodone HCl (Roxicodone -) 5 mg PO Q8H PRN PRN Reason: PAIN Last Admin: 03/04/19 00:49 Dose: 5 mg Senna (Senna -) 1 tab PO BID [facility] Last Admin: 03/03/19 21:41 Dose: Not Given Spironolactone (Aldactone -) 50 mg PO DAILY [facility] Last Admin: 03/03/19 18:53 Dose: 50 mg - Objective Vital Signs: Vital Signs Temperature 97.8 F 03/04/19 06:00 Pulse Rate 58 L 03/04/19 06:00 Respiratory Rate 20 03/04/19 06:00 Blood Pressure 113/56 L 03/04/19 06:00 O2 Sat by Pulse Oximetry (%) 93 L 03/03/19 21:00 Constitutional: Yes: Well Nourished, No Distress, Calm Eyes: Yes: WNL, Conjunctiva Clear, EOM Intact HENT: Yes: WNL, Atraumatic, Normocephalic Neck: Yes: WNL, Supple, Trachea Midline Cardiovascular: Yes: WNL, Regular Rate and Rhythm Respiratory: Yes: WNL, Regular, CTA Bilaterally Gastrointestinal: Yes: WNL, Normal Bowel Sounds, Soft ...Rectal Exam: Yes: WNL, Deferred Genitourinary: Yes: WNL Musculoskeletal: Yes: WNL Extremities: Yes: Amputation (left BKA, right 2nd toe amputation) Edema: No Peripheral Pulses WNL: No Peripheral Pulses: Left Doralis Pedis: 0 (BKA), Right Dorsalis Pedis: 3+, Left Femoral: 4+, Right Femoral: 4+ Integumentary: Yes: Venous Stasis Changes (the right LE) Wound/Incision: Yes: Clean/Dry (with DSD) Neurological: Yes: WNL, Alert, Oriented ...Motor Strength: WNL Psychiatric: Yes: WNL, Alert, Oriented Labs: INR, PTT INR 1.18 (0.83-1.09) H 03/03/19 06:30 Problem List - Problems (1) Gangrene of toe of right foot Assessment/Plan: Patient admitted from wound care for evaluation of right second digit gangrenous 2nd toe, right foot. CTA with runoff shows two vessel runoff into the foot. No stenosis. per vascular note, no vascular interventions. POD#1 from 2bd toe amputation continue abx Flagyl and ceftriaxone. ID following and appreciate input Blood cultures NGTD Code(s): I96 - GANGRENE, NOT ELSEWHERE CLASSIFIED (2) Prophylactic measure Assessment/Plan: FEN resume renal diet dc IVF DVT Proph heparin sq bud early ambulation after surgery Dispo maintain as inpatient full code discharge planning Code(s): Z29.9 - ENCOUNTER FOR PROPHYLACTIC MEASURES, UNSPECIFIED (3) Acquired absence of left leg below knee Assessment/Plan: s/p BKA Code(s): Z89.512 - ACQUIRED ABSENCE OF LEFT LEG BELOW KNEE (4) Anemia Assessment/Plan: daily CBC continue ferrous sulfate, epogen transfuse if hgb < 8.0 or symptomatic Code(s): D64.9 - ANEMIA, UNSPECIFIED Qualifiers: Vitamin B12 deficiency anemia type: other B12 deficiency (5) ESRD (end stage renal disease) Assessment/Plan: dialysis per renal. - dialysis today, schedule at home </W/F -nephrology following and appreciate recommendations -monitor kidney function Code(s): N18.6 - END STAGE RENAL DISEASE (6) Congestive heart failure Assessment/Plan: monitor of volume overload -removed 2L fluid on last HD on lasix daily weights Code(s): I50.9 - HEART FAILURE, UNSPECIFIED (7) Hypertension Assessment/Plan: BP elevated on admission, now normotensive -continue home medications and monitor BP. On Lisinopril 40mg, Imdur 60mg daily , Procardia xl 60mg qd, hydralazine 100mg tid, labetalol 300mg bid -appreciate cardiology recommendations Code(s): I10 - ESSENTIAL (PRIMARY) HYPERTENSION Qualifiers: Hypertension type: essential hypertension Qualified Code(s): I10 - Essential (primary) hypertension (8) AV fistula Code(s): I77.0 - ARTERIOVENOUS FISTULA, ACQUIRED (9) Type 2 diabetes mellitus with other skin ulcer Assessment/Plan: [facility] novolog sliding scale Code(s): E11.622 - TYPE 2 DIABETES MELLITUS WITH OTHER SKIN ULCER; L98.499 - NON -PRESSURE CHRONIC ULCER OF SKIN OF SITES W UNSP SEVERITY Visit type - Emergency Visit Emergency Visit: Yes ED Registration Date: 02/27/19 Care time: The patient presented to the Emergency Department on the above date and was hospitalized for further evaluation of their emergent condition. - New Patient This patient is new to me today: No - Critical Care Critical Care patient: No - Discharge Referral Referred to [facility] Med P.C.: No
[2019-03-04 08:12] LABS: HEMATOCRIT 25.2 % (35.4-49); HEMOGLOBIN 8.7 GM/dL (11.7-16.9); MCH 34.3 pg (25.7-33.7); MCHC 34.5 g/dl (32.0-35.9); MEAN CELL VOLUME 99.3 fl (80-96); MEAN PLT VOLUME 8.6 fl (7.5-11.1); PLATELET COUNT 213 K/MM3 (134-434); RBC 2.54 M/mm3 (4.00-5.60); RDW 16.1 % (11.9-15.9); WHITE BLOOD COUNT 8.1 K/mm3 (4.0-10.0)
[2019-03-04 08:15] LABS: ALBUMIN 2.8 g/dl (3.4-5.0); BILIRUBIN,TOTAL 0.6 mg/dL (0.2-1); BLOOD UREA NITROGEN 34.1 mg/dL (7-18); CALCIUM 8.9 mg/dL (8.5-10.1); POTASSIUM 4.3 mmol/L (3.5-5.1); TOT PROT 6.6 g/dl (6.4-8.2)
--- NOTE | 2019-03-04 08:59 | OP ---
DATE OF OPERATION: 03/03/2019 PREOPERATIVE DIAGNOSIS: Right 2nd toe gangrene. POSTOPERATIVE DIAGNOSIS: Right 2nd toe gangrene. PROCEDURE: Right 2nd toe amputation. SURGEON: Hakan Garcia DPM ASSURANCE OFFICER: None. ANESTHESIA: IV sedation with local. HEMOSTASIS: Surgical dissection. ESTIMATED BLOOD LOSS: Minimal. PATHOLOGY: Right 2nd toe. DESCRIPTION OF PROCEDURE: The patient was brought to the operating room and placed on the operating table in the supine position. Following the induction of IV sedation, local anesthesia was achieved utilizing 10 mL of 2% lidocaine plain. The right foot was scrubbed, prepped, and draped in the usual sterile fashion. Attention was directed to the right 2nd toe, where there was dry gangrenous changes with malodor present. I began by performing a 2-cm linear longitudinal incision over the 2nd metatarsal. The incision was carried distally in a circumferential fashion about the 2nd toe. The incision was deepened using sharp and blunt dissection taking care to retract vital neural and vascular structures. All bleeders were cauterized and ligated as needed. Next, the 2nd toe was disarticulated at the level of the 2nd metatarsophalangeal joint. The 2nd toe was removed and sent to Pathology for analysis. Next, a wound culture was obtained. Next, a linear capsular incision was made overlying the dorsal 2nd metatarsal. The 2nd metatarsal head was resected utilizing the sagittal saw. This piece of bone was sectioned for pathology as proximal bone margins. Surgical site was copiously irrigated with sterile saline. The surgical site was loosely packed with one 0.25-inch Iodoform packing. The incision was coapted and maintained utilizing 3-0 nylon in a simple interrupted suture fashion. Following the conclusion of the procedure, the surgical site was covered with Xeroform and a sterile compressive dressing was applied to the right foot consisting of sterile gauze, Kerlix, and an CLAY wrap. The patient tolerated the procedure and anesthesia well without complications. He was transferred from the operating room to the recovery unit with vital signs stable and neurovasculature intact to the right foot. SB [id number] cc: [facility]
[2019-03-04] MEDS: LABETALOL HCL 100 MG TABLET (FP) PO SCH ×3 (09:00→21:05)
[2019-03-04] MEDS: FUROSEMIDE 40 MG TABLET (FP) PO SCH (09:00)
[2019-03-04] MEDS: SPIRONOLACTONE 25 MG TABLET (FP) PO SCH (09:00)
[2019-03-04] MEDS: LISINOPRIL 20 MG TABLET (FP) PO SCH (09:00)
[2019-03-04] MEDS: ISOSORBIDE MONONITRATE 60 MG TAB.SR.24H (FP) PO SCH (09:00)
[2019-03-04] MEDS: SENNOSIDES 8.6MG TABLET (FP) PO SCH ×2 (09:00→23:34)
[2019-03-04] MEDS: NIFEdipine E.R 60 MG TABLET (UD) PO SCH ×3 (09:00→21:05)
--- NOTE | 2019-03-04 11:09 | PN ---
Progress Note, Physician History of Present Illness: Pt seen and examined at bedside. He is awake and alert. He denies shortness of breath. - Current Medication List Current Medications: Active Medications Acetaminophen (Tylenol -) 650 mg PO Q4H PRN PRN Reason: PAIN LEVEL 1-5 Atorvastatin Calcium (Lipitor -) 80 mg PO HS [facility] Last Admin: 03/03/19 21:27 Dose: 80 mg Calcitriol (Rocaltrol -) 0.25 mcg PO DAILY [facility] Docusate Sodium (Colace -) 100 mg PO TID [facility] Last Admin: 03/04/19 06:25 Dose: Not Given Ferrous Sulfate (Feosol -) 325 mg PO BID [facility] Last Admin: 03/03/19 21:27 Dose: 325 mg Furosemide (Lasix -) 40 mg PO DAILY [facility] Last Admin: 03/04/19 09:00 Dose: Not Given Heparin Sodium (Porcine) (Heparin -) 5,000 unit SQ BID [facility] Last Admin: 03/03/19 21:27 Dose: 5,000 unit Hydralazine HCl (Apresoline -) 100 mg PO TID [facility] Last Admin: 03/04/19 06:25 Dose: 100 mg Ceftriaxone Sodium 1 gm/ (Dextrose) 50 mls @ 100 mls/hr IVPB Q24H [facility] Metronidazole (Flagyl 500mg Premixed Ivpb -) 500 mg in 100 mls @ 100 mls/hr IVPB Q8H [facility] Last Admin: 03/04/19 09:02 Dose: 100 mls/hr Sodium Chloride (Normal Saline -) 1,000 mls @ 42 mls/hr IV ASDIR [facility] Last Admin: 03/03/19 17:45 Dose: 42 mls/hr Insulin Aspart (Novolog Vial Sliding Scale -) 1 vial SQ ACHS [facility]; Protocol Last Admin: 03/04/19 06:38 Dose: Not Given Isosorbide Mononitrate (Imdur -) 60 mg PO DAILY [facility] Last Admin: 03/04/19 09:00 Dose: Not Given Labetalol HCl (Normodyne -) 300 mg PO BID [facility] Last Admin: 03/04/19 09:00 Dose: Not Given Lisinopril (Prinivil) 40 mg PO DAILY [facility] Last Admin: 03/04/19 09:00 Dose: Not Given Nifedipine (Procardia Xl -) 60 mg PO BID [facility] Last Admin: 03/04/19 09:00 Dose: Not Given Ondansetron HCl (Zofran Injection) 4 mg IVPUSH Q6H PRN PRN Reason: NAUSEA AND/OR VOMITING Oxycodone HCl (Roxicodone -) 5 mg PO Q8H PRN PRN Reason: PAIN Last Admin: 03/04/19 00:49 Dose: 5 mg Senna (Senna -) 1 tab PO BID [facility] Last Admin: 03/03/19 21:41 Dose: Not Given Spironolactone (Aldactone -) 50 mg PO DAILY [facility] Last Admin: 03/04/19 09:00 Dose: Not Given - Objective Vital Signs: Vital Signs Temperature 98.3 F 03/04/19 09:00 Pulse Rate 55 L 03/04/19 09:00 Respiratory Rate 20 03/04/19 09:00 Blood Pressure 98/46 L 03/04/19 09:00 O2 Sat by Pulse Oximetry (%) 93 L 03/03/19 21:00 Constitutional: Yes: Calm Eyes: Yes: Conjunctiva Clear HENT: Yes: Atraumatic Cardiovascular: Yes: S1, S2 Respiratory: Yes: CTA Bilaterally Gastrointestinal: Yes: Normal Bowel Sounds, Soft Genitourinary: Yes: WNL Extremities: Yes: Other (right foot dressing. left bka) Edema: No Neurological: Yes: Oriented Psychiatric: Yes: Oriented Labs: CBC, BMP 03/04/19 07:20 03/04/19 07:20 INR, PTT INR 1.18 (0.83-1.09) H 03/03/19 06:30 Problem List - Problems (1) Gangrene of toe of right foot Code(s): I96 - GANGRENE, NOT ELSEWHERE CLASSIFIED (2) ESRD (end stage renal disease) Code(s): N18.6 - END STAGE RENAL DISEASE Assessment/Plan Current Medications Generic Name Dose Route Start Last Admin Trade Name Freq PRN Reason Stop Dose Admin Acetaminophen 650 mg 03/03/19 17:26 Tylenol - PO Q4H PRN PAIN LEVEL 1-5 Atorvastatin Calcium 80 mg 03/03/19 22:00 03/03/19 21:27 Lipitor - PO 80 mg HS [facility] Administration Calcitriol 0.25 mcg 03/04/19 10:00 Rocaltrol - PO DAILY [facility] Docusate Sodium 100 mg 03/03/19 22:00 03/04/19 06:25 Colace - PO Not Given TID [facility] Ferrous Sulfate 325 mg 03/03/19 22:00 03/03/19 21:27 Feosol - PO 325 mg BID [facility] Administration Furosemide 40 mg 03/04/19 10:00 03/04/19 09:00 Lasix - PO Not Given DAILY [facility] Heparin Sodium (Porcine) 5,000 unit 03/03/19 22:00 03/03/19 21:27 Heparin - SQ 5,000 unit BID [facility] Administration Hydralazine HCl 100 mg 03/03/19 22:00 03/04/19 06:25 Apresoline - PO 100 mg TID [facility] Administration Ceftriaxone Sodium 1 gm/ 50 mls @ 100 mls/hr 03/04/19 16:15 Dextrose IVPB Q24H [facility] Metronidazole 500 mg in 100 mls @ 100 mls/hr 03/04/19 00:15 03/04/19 09:02 Flagyl 500mg Premixed Ivpb - IVPB 100 mls/hr Q8H [facility] Administration Sodium Chloride 1,000 mls @ 42 mls/hr 03/03/19 17:26 03/03/19 17:45 Normal Saline - IV 42 mls/hr ASDIR [facility] Administration Insulin Aspart 1 vial 03/03/19 22:00 03/04/19 06:38 Novolog Vial Sliding Scale - SQ Not Given ACHS [facility] Protocol Isosorbide Mononitrate 60 mg 03/04/19 10:00 03/04/19 09:00 Imdur - PO Not Given DAILY [facility] Labetalol HCl 300 mg 03/03/19 22:00 03/04/19 09:00 Normodyne - PO Not Given BID [facility] Lisinopril 40 mg 03/04/19 10:00 03/04/19 09:00 Prinivil PO Not Given DAILY [facility] Nifedipine 60 mg 03/03/19 22:00 03/04/19 09:00 Procardia Xl - PO Not Given BID [facility] Ondansetron HCl 4 mg 03/03/19 17:26 Zofran Injection IVPUSH Q6H PRN NAUSEA AND/OR VOMITING Oxycodone HCl 5 mg 03/03/19 17:26 03/04/19 00:49 Roxicodone - PO 5 mg Q8H PRN Administration PAIN Senna 1 tab 03/03/19 22:00 03/03/19 21:41 Senna - PO Not Given BID [facility] Spironolactone 50 mg 03/04/19 10:00 03/04/19 09:00 Aldactone - PO Not Given DAILY [facility] Impression 1. ESRD on HD 2. anemia 3. DM 4. HTN 5. toe infection/gangrene 6. PVD 7. cavernous malformation Plan - HD today - cont wound care - epogen for anemia - vascular follow up - renal diet - pt is a MWF HD
[2019-03-04] MEDS: HEPARIN NA (PORCINE) 5,000 UNITS/ML 1ML VIAL SQ SCH ×2 (13:05→21:04)
--- NOTE | 2019-03-04 14:37 | PN ---
Progress Note (short form) - Note Progress Note: Anesthesia post op Pt seen and examined S: Vital Signs Temperature 97.7 F 03/04/19 12:45 Pulse Rate 59 L 03/04/19 13:20 Respiratory Rate 18 03/04/19 13:20 Blood Pressure 128/50 L 03/04/19 13:20 O2 Sat by Pulse Oximetry (%) 93 L 03/04/19 09:00 CBC, BMP 03/04/19 07:20 03/04/19 07:20 A/P: Current Active Problems Gangrene of toe of right foot (Acute) Hypertensive urgency (Acute) Prophylactic measure (Acute) Sepsis (Acute) s/p:amputation of toes doing well post op Continue current care Ron Faye MD
--- NOTE | 2019-03-04 15:38 | PN ---
Progress Note (short form) - Note Progress Note: PODIATRY NOTE: 69 year old diabetic, PVD, ESRD s/p 2nd digit amputation. Seen during dialysis. States he has had some pain. Denies any other complaints. Denies any f/c/n/v/ sob. PMHx: IDDM, HTN, HLP, ESRD on HD, CAD s/p AR Meds: noted in chart ALL: zosyn MONICA: R foot: pedal pulses nonpalpable, TG wnl. There is sutures intact at th eincision site with packing in place, no erythema, no edema, incision site coapting, no signs of infection, third digit with mild dusky appearance noted, no gangrenous changes though. Imp: 69 year old diabetic, PVD male with right second digit gangrene P: Evaluated and reviewed Cont iv abx per ID Wound redressed with wet to dry DSD WBAT to the heel. Will follow.
[2019-03-04] MEDS ORDERED: cefTRIAXone SODIUM 1 GM VIAL ONE (16:27)
[2019-03-04] MEDS ORDERED: DEXTROSE 5%-WATER - 50 ML IVPB ONE (16:28)
[2019-03-04] MEDS: ACETAMINOPHEN 325 MG TABLET (FP) PO PRN (16:34)
[2019-03-04] MEDS: FERROUS SO4 325 MG TABLET (FP) PO SCH ×2 (16:34→21:04)
[2019-03-04] MEDS: CEFTRIAXONE 1 GM in DEXTROSE 5%-WATER - 50 ML IVPB SCH (16:36)
[2019-03-04] MEDS: CALCITRIOL 0.25 MCG CAPSULE (FP) PO SCH (16:46)
[2019-03-04] MEDS: ATORVASTATIN CA 80 MG TABLET (FP) PO SCH (21:05)
[2019-03-05] MEDS: DOCUSATE SODIUM 100 MG CAPSULE (FP) PO SCH ×3 (05:49→22:16)
[2019-03-05] MEDS: hydrALAZINE HCL 50 MG TABLET (FP) PO SCH ×4 (05:49→22:19)
[2019-03-05] MEDS: INSULIN SLIDING SCALE (NOVOLOG) 1 VIAL SQ SCH ×3 (06:05→16:34)
--- NOTE | 2019-03-05 07:25 | PN ---
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 He presented to the ED on the advice of vascular surgery for gangrene of his right foot second toe. Patient admitted for a CTA, antibiotics and possible amputation of gangrenous 2nd digit, of right foot. s/p 2nd toe amputation POD#1 - Current Medication List Current Medications: Active Medications Acetaminophen (Tylenol -) 650 mg PO Q4H PRN PRN Reason: PAIN LEVEL 1-5 Last Admin: 03/04/19 16:34 Dose: 650 mg Atorvastatin Calcium (Lipitor -) 80 mg PO HS [facility] Last Admin: 03/04/19 21:05 Dose: 80 mg Calcitriol (Rocaltrol -) 0.25 mcg PO DAILY [facility] Last Admin: 03/04/19 16:46 Dose: 0.25 mcg Docusate Sodium (Colace -) 100 mg PO TID [facility] Last Admin: 03/05/19 05:49 Dose: Not Given Ferrous Sulfate (Feosol -) 325 mg PO BID [facility] Last Admin: 03/04/19 21:04 Dose: 325 mg Furosemide (Lasix -) 40 mg PO DAILY [facility] Last Admin: 03/04/19 09:00 Dose: Not Given Heparin Sodium (Porcine) (Heparin -) 5,000 unit SQ BID [facility] Last Admin: 03/04/19 21:04 Dose: 5,000 unit Hydralazine HCl (Apresoline -) 100 mg PO TID [facility] Last Admin: 03/05/19 05:56 Dose: Not Given Ceftriaxone Sodium 1 gm/ (Dextrose) 50 mls @ 100 mls/hr IVPB Q24H [facility] Last Admin: 03/04/19 16:36 Dose: 100 mls/hr Metronidazole (Flagyl 500mg Premixed Ivpb -) 500 mg in 100 mls @ 100 mls/hr IVPB Q8H [facility] Last Admin: 03/05/19 01:04 Dose: 100 mls/hr Insulin Aspart (Novolog Vial Sliding Scale -) 1 vial SQ ACHS [facility]; Protocol Last Admin: 03/05/19 06:05 Dose: Not Given Isosorbide Mononitrate (Imdur -) 60 mg PO DAILY [facility] Last Admin: 03/04/19 09:00 Dose: Not Given Labetalol HCl (Normodyne -) 300 mg PO BID [facility] Last Admin: 03/04/19 21:05 Dose: Not Given Lisinopril (Prinivil) 40 mg PO DAILY [facility] Last Admin: 03/04/19 09:00 Dose: Not Given Nifedipine (Procardia Xl -) 60 mg PO BID [facility] Last Admin: 03/04/19 21:05 Dose: Not Given Nifedipine (Procardia Xl -) 30 mg PO ONCE ONE Stop: 03/05/19 23:43 Ondansetron HCl (Zofran Injection) 4 mg IVPUSH Q6H PRN PRN Reason: NAUSEA AND/OR VOMITING Oxycodone HCl (Roxicodone -) 5 mg PO Q8H PRN PRN Reason: PAIN Last Admin: 03/04/19 20:58 Dose: 5 mg Senna (Senna -) 1 tab PO BID [facility] Last Admin: 03/04/19 23:34 Dose: Not Given Spironolactone (Aldactone -) 50 mg PO DAILY [facility] Last Admin: 03/04/19 09:00 Dose: Not Given - Objective Vital Signs: Vital Signs Temperature 98 F 03/05/19 01:14 Pulse Rate 60 03/05/19 05:00 Respiratory Rate 20 03/05/19 05:00 Blood Pressure 134/63 03/05/19 05:00 O2 Sat by Pulse Oximetry (%) 96 03/04/19 20:03 Constitutional: Yes: Well Nourished, No Distress, Calm Eyes: Yes: WNL, Conjunctiva Clear, EOM Intact HENT: Yes: WNL, Atraumatic, Normocephalic Neck: Yes: WNL, Supple, Trachea Midline Cardiovascular: Yes: WNL, Regular Rate and Rhythm Respiratory: Yes: WNL, Regular, CTA Bilaterally Gastrointestinal: Yes: WNL, Normal Bowel Sounds, Soft ...Rectal Exam: Yes: Deferred Breast(s): Yes: WNL Musculoskeletal: Yes: WNL Extremities: Yes: Amputation (left BKA, right 2nd toe amputation. 3rd & 4th toe dusky) Edema: No Peripheral Pulses WNL: No Peripheral Pulses: Left Doralis Pedis: 3+, Right Dorsalis Pedis: 0 (BKA), Left Femoral: 3+, Right Femoral: 3+ Integumentary: Yes: Venous Stasis Changes Wound/Incision: Yes: Clean/Dry Neurological: Yes: WNL, Alert, Oriented Labs: CBC, BMP 03/04/19 07:20 03/04/19 07:20 INR, PTT INR 1.18 (0.83-1.09) H 03/03/19 06:30 Problem List - Problems (1) Gangrene of toe of right foot Assessment/Plan: Patient admitted from wound care for evaluation of right second digit gangrenous 2nd toe, right foot. CTA with runoff shows two vessel runoff into the foot. No stenosis. per vascular note, no vascular interventions. POD#2 from 2nd toe amputation continue abx Flagyl and ceftriaxone. ID following and appreciate input -Blood cultures with CoNS, will follow sensitivities -Wound redressed with wet to dry DSD -WBAT to the heel. -appreciate surgery's recommedations Code(s): I96 - GANGRENE, NOT ELSEWHERE CLASSIFIED (2) Prophylactic measure Assessment/Plan: FEN resume renal diet DVT Proph heparin sq bud early ambulation after surgery Dispo maintain as inpatient full code discharge planning Code(s): Z29.9 - ENCOUNTER FOR PROPHYLACTIC MEASURES, UNSPECIFIED (3) Acquired absence of left leg below knee Assessment/Plan: s/p BKA Code(s): Z89.512 - ACQUIRED ABSENCE OF LEFT LEG BELOW KNEE (4) Anemia Assessment/Plan: daily CBC continue ferrous sulfate, epogen transfuse if hgb < 8.0 or symptomatic Code(s): D64.9 - ANEMIA, UNSPECIFIED Qualifiers: Vitamin B12 deficiency anemia type: other B12 deficiency (5) ESRD (end stage renal disease) Assessment/Plan: dialysis per renal. - dialysis tomorrow schedule at home M/W/F -1.5 L removed yesterday -nephrology following and appreciate recommendations -monitor kidney function Code(s): N18.6 - END STAGE RENAL DISEASE (6) Congestive heart failure Assessment/Plan: monitor of volume overload -removed 2L fluid on last HD on lasix daily weights Code(s): I50.9 - HEART FAILURE, UNSPECIFIED (7) Hypertension Assessment/Plan: BP elevated on admission, now normotensive -continue home medications and monitor BP. On Lisinopril 40mg, Imdur 60mg daily , Procardia xl 60mg qd, hydralazine 100mg tid, labetalol 300mg bid -appreciate cardiology recommendations Code(s): I10 - ESSENTIAL (PRIMARY) HYPERTENSION Qualifiers: Hypertension type: essential hypertension Qualified Code(s): I10 - Essential (primary) hypertension (8) AV fistula Code(s): I77.0 - ARTERIOVENOUS FISTULA, ACQUIRED (9) Type 2 diabetes mellitus with other skin ulcer Assessment/Plan: [facility] novolog sliding scale Code(s): E11.622 - TYPE 2 DIABETES MELLITUS WITH OTHER SKIN ULCER; L98.499 - NON -PRESSURE CHRONIC ULCER OF SKIN OF SITES W UNSP SEVERITY Impression/Plan Impression/Plan: R foot: pedal pulses nonpalpable, TG wnl. There is sutures intact at th eincision site with packing in place, no erythema, no edema, incision site coapting, no signs of infection, third digit with continued dusky changes as well as mildly along dorsum of the foot. Visit type - Emergency Visit Emergency Visit: Yes ED Registration Date: 02/27/19 Care time: The patient presented to the Emergency Department on the above date and was hospitalized for further evaluation of their emergent condition. - New Patient This patient is new to me today: No - Critical Care Critical Care patient: No - Discharge Referral Referred to [facility] No
[2019-03-05] MEDS: SPIRONOLACTONE 25 MG TABLET (FP) PO SCH (09:19)
[2019-03-05] MEDS: SENNOSIDES 8.6MG TABLET (FP) PO SCH ×3 (09:20→22:16)
[2019-03-05] MEDS: FERROUS SO4 325 MG TABLET (FP) PO SCH ×2 (09:20→22:18)
[2019-03-05] MEDS: LISINOPRIL 20 MG TABLET (FP) PO SCH (09:21)
[2019-03-05] MEDS: LABETALOL HCL 100 MG TABLET (FP) PO SCH ×2 (09:22→22:19)
[2019-03-05] MEDS: ISOSORBIDE MONONITRATE 60 MG TAB.SR.24H (FP) PO SCH (09:22)
[2019-03-05] MEDS: FUROSEMIDE 40 MG TABLET (FP) PO SCH (09:22)
[2019-03-05] MEDS: NIFEdipine E.R 60 MG TABLET (UD) PO SCH ×2 (09:23→22:18)
[2019-03-05] MEDS: CALCITRIOL 0.25 MCG CAPSULE (FP) PO SCH (09:23)
[2019-03-05] MEDS: HEPARIN NA (PORCINE) 5,000 UNITS/ML 1ML VIAL SQ SCH ×2 (09:26→22:18)
[2019-03-05] MEDS: oxyCODONE HCL 5 MG TABLET PO PRN (10:53)
[2019-03-05] MEDS: ACETAMINOPHEN 325 MG TABLET (FP) PO PRN (10:54)
--- NOTE | 2019-03-05 11:09 | PN ---
Progress Note (short form) - Note Progress Note: PODIATRY NOTE: 69 year old diabetic, PVD, ESRD s/p 2nd digit amputation. Is confused and argumentative during exam. States his flow in the foot is fine and he is healthy. Utilized an interpret to maintenance helper utility engineer in discussion. PMHx: IDDM, HTN, HLP, ESRD on HD, CAD s/p OR Meds: noted in chart ALL: zosyn MONICA: R foot: pedal pulses nonpalpable, TG wnl. There is sutures intact at th eincision site with packing in place, no erythema, no edema, incision site coapting, no signs of infection, third digit with continued dusky changes as well as mildly along dorsum of the foot. Imp: 69 year old diabetic, PVD male with right second digit gangrene P: Evaluated and reviewed Tried to discuss with patient that due to ESRD small blood vessels in the digits can be occluded Does not want to discuss at this time Dressing changed Will need observation to eval for any further dusky changes in foot.
[2019-03-05] MEDS ORDERED: DEXTROSE 5%-WATER - 50 ML IVPB ONE (15:41)
[2019-03-05] MEDS ORDERED: cefTRIAXone SODIUM 1 GM VIAL ONE (15:41)
[2019-03-05] MEDS: CEFTRIAXONE 1 GM in DEXTROSE 5%-WATER - 50 ML IVPB SCH (15:47)
--- NOTE | 2019-03-05 16:04 | PN ---
Progress Note, Physician Chief Complaint: Pt sitting up in bed; occasional sharp pain at site of right 2nd toe amputation ; lasts up to 20 minutes; sometimes has to ask for pain maedicationn.No chest pain or dyspnea. History of Present Illness: The patient is a 69 year old male (b. [place]), with a significant PMH of ESRD ( dialysis MWF) HTN, diastolic CHF, CAD, "small VA" in 2016, treated at [facility] (no hx coronary angiogram; stress MIBI 05/2018: small area of mildly intense periinarct inferoapical ischemia)), PAD s/p L BKA (07/04/18) c/b poor wound healing, who presents to the emergency department with severe right foot pain that began 15 days ago. The patient notices his right 2nd digit has been infected and necrotic in nature for 4 months but progressively worsened today. He denies chest pain, shortness of breath, headache and dizziness. Denies numbness and tingling. Denies fever, chills, nausea, vomit, diarrhea and constipation.Denies dysuria, frequency, urgency and hematuria. Allergies: NKDA Past surgical history: appendectomy Social history: None reported PCP: Wound Care- Dr. Paiz - Current Medication List Current Medications: Active Medications Acetaminophen (Tylenol -) 650 mg PO Q4H PRN PRN Reason: PAIN LEVEL 1-5 Last Admin: 03/05/19 10:54 Dose: 650 mg Atorvastatin Calcium (Lipitor -) 80 mg PO HS [facility] Last Admin: 03/04/19 21:05 Dose: 80 mg Calcitriol (Rocaltrol -) 0.25 mcg PO DAILY [facility] Last Admin: 03/05/19 09:23 Dose: 0.25 mcg Docusate Sodium (Colace -) 100 mg PO TID [facility] Last Admin: 03/05/19 14:50 Dose: Not Given Ferrous Sulfate (Feosol -) 325 mg PO BID [facility] Last Admin: 03/05/19 09:20 Dose: 325 mg Furosemide (Lasix -) 40 mg PO DAILY [facility] Last Admin: 03/05/19 09:22 Dose: 40 mg Heparin Sodium (Porcine) (Heparin -) 5,000 unit SQ BID [facility] Last Admin: 03/05/19 09:26 Dose: 5,000 unit Hydralazine HCl (Apresoline -) 100 mg PO TID [facility] Last Admin: 03/05/19 14:50 Dose: 100 mg Ceftriaxone Sodium 1 gm/ (Dextrose) 50 mls @ 100 mls/hr IVPB Q24H [facility] Last Admin: 03/05/19 15:47 Dose: 100 mls/hr Metronidazole (Flagyl 500mg Premixed Ivpb -) 500 mg in 100 mls @ 100 mls/hr IVPB Q8H [facility] Last Admin: 03/05/19 15:48 Dose: 100 mls/hr Insulin Aspart (Novolog Vial Sliding Scale -) 1 vial SQ ACHS [facility]; Protocol Last Admin: 03/05/19 11:27 Dose: Not Given Isosorbide Mononitrate (Imdur -) 60 mg PO DAILY [facility] Last Admin: 03/05/19 09:22 Dose: 60 mg Labetalol HCl (Normodyne -) 300 mg PO BID [facility] Last Admin: 03/05/19 09:22 Dose: 300 mg Lisinopril (Prinivil) 40 mg PO DAILY [facility] Last Admin: 03/05/19 09:21 Dose: 40 mg Nifedipine (Procardia Xl -) 60 mg PO BID [facility] Last Admin: 03/05/19 09:23 Dose: 60 mg Nifedipine (Procardia Xl -) 30 mg PO ONCE ONE Stop: 03/05/19 23:43 Ondansetron HCl (Zofran Injection) 4 mg IVPUSH Q6H PRN PRN Reason: NAUSEA AND/OR VOMITING Oxycodone HCl (Roxicodone -) 5 mg PO Q8H PRN PRN Reason: PAIN Last Admin: 03/05/19 10:53 Dose: 5 mg Senna (Senna -) 1 tab PO BID [facility] Last Admin: 03/05/19 09:25 Dose: Not Given Spironolactone (Aldactone -) 50 mg PO DAILY [facility] Last Admin: 03/05/19 09:19 Dose: 50 mg - Objective Vital Signs: Vital Signs Temperature 98.3 F 03/05/19 14:00 Pulse Rate 54 L 03/05/19 14:00 Respiratory Rate 20 03/05/19 09:00 Blood Pressure 133/56 L 03/05/19 14:00 O2 Sat by Pulse Oximetry (%) 94 L 03/05/19 09:00 Labs: CBC, BMP 03/04/19 07:20 03/04/19 07:20 INR, PTT INR 1.18 (0.83-1.09) H 03/03/19 06:30 Problem List - Problems (1) Gangrene of toe of right foot Code(s): I96 - GANGRENE, NOT ELSEWHERE CLASSIFIED (2) AV fistula Code(s): I77.0 - ARTERIOVENOUS FISTULA, ACQUIRED (3) Acquired absence of left leg below knee Code(s): Z89.512 - ACQUIRED ABSENCE OF LEFT LEG BELOW KNEE (4) ESRD needing dialysis Code(s): N18.6 - END STAGE RENAL DISEASE; Z99.2 - DEPENDENCE ON RENAL DIALYSIS (5) Gangrene of toe of right foot Code(s): I96 - GANGRENE, NOT ELSEWHERE CLASSIFIED (6) History of left below knee amputation Code(s): Z89.512 - ACQUIRED ABSENCE OF LEFT LEG BELOW KNEE (7) Hypertension Code(s): I10 - ESSENTIAL (PRIMARY) HYPERTENSION Qualifiers: Hypertension type: essential hypertension Qualified Code(s): I10 - Essential (primary) hypertension (8) PAD (peripheral artery disease) Code(s): I73.9 - PERIPHERAL VASCULAR DISEASE, UNSPECIFIED (9) Sepsis Code(s): A41.9 - SEPSIS, UNSPECIFIED ORGANISM (10) Diastolic CHF Code(s): I50.30 - UNSPECIFIED DIASTOLIC (CONGESTIVE) HEART FAILURE Qualifiers: Heart failure chronicity: chronic Qualified Code(s): I50.32 - Chronic diastolic (congestive) heart failure
--- NOTE | 2019-03-05 16:25 | PATH ---
Surgical Pathology Report Patient Name: KARI VILLALOBOS Med. Rec. #: [id number] /Age/Gender: 1950 (Age: 69) / M Account: [id number] Location: 4 W TELEMETRY U Taken: 03/03/2019 Received: 03/04/2019 Reported: 03/05/2019 Physicians: SB Lima M.D. Specimen(s) Received A: RIGHT SECOND TOE B: RIGHT PROXIMAL BONE Clinical History Diabetic right foot infection Final Diagnosis A. RIGHT SECOND TOE, AMPUTATION: PORTION OF TOE SHOWING GANGRENOUS NECROSIS INVOLVING SKIN, SOFT TISSUE AND UNDERLYING BONE, WITH ABSCESS FORMATION AND ACUTE OSTEOMYELITIS. BONE MARGIN IS NEGATIVE FOR OSTEOMYELITIS. SKIN AND SOFT TISSUE MARGIN INVOLVED BY ACUTE INFLAMMATION. B. RIGHT PROXIMAL BONE, EXCISION: PORTION OF BONE, NEGATIVE FOR OSTEOMYELITIS. Electronically Signed Genevieve Crabtree M.D. Gross Description A. Received in formalin labeled "right second toe," is a 5.0 x 2.2 x 1.4 cm toe amputation. The entire specimen displays a black, gangrenous lesion involving the underlying bone as well as the skin, soft tissue and bone margin. Anchorman sections are submitted in 2 cassettes as follows: 1-cross section of digit, following decalcification; 2-bone, skin and soft tissue margin, following decalcification. B. Received in formalin labeled "right proximal bone," is a 1.8 x 1.2 x 1.1 cm moya-yellow portion of bone. Sectioning reveals markedly softened trabecular bone. A full thickness section is submitted in one cassette, following decalcification. /03/04/2019 [facility]03/04/2019
--- NOTE | 2019-03-05 16:52 | PN ---
Progress Note, Physician History of Present Illness: Pt seen and examined at bedside. He is awake and alert. - Current Medication List Current Medications: Active Medications Acetaminophen (Tylenol -) 650 mg PO Q4H PRN PRN Reason: PAIN LEVEL 1-5 Last Admin: 03/05/19 10:54 Dose: 650 mg Atorvastatin Calcium (Lipitor -) 80 mg PO HS [facility] Last Admin: 03/04/19 21:05 Dose: 80 mg Calcitriol (Rocaltrol -) 0.25 mcg PO DAILY [facility] Last Admin: 03/05/19 09:23 Dose: 0.25 mcg Docusate Sodium (Colace -) 100 mg PO TID [facility] Last Admin: 03/05/19 14:50 Dose: Not Given Ferrous Sulfate (Feosol -) 325 mg PO BID [facility] Last Admin: 03/05/19 09:20 Dose: 325 mg Furosemide (Lasix -) 40 mg PO DAILY [facility] Last Admin: 03/05/19 09:22 Dose: 40 mg Heparin Sodium (Porcine) (Heparin -) 5,000 unit SQ BID [facility] Last Admin: 03/05/19 09:26 Dose: 5,000 unit Hydralazine HCl (Apresoline -) 100 mg PO TID [facility] Last Admin: 03/05/19 14:50 Dose: 100 mg Ceftriaxone Sodium 1 gm/ (Dextrose) 50 mls @ 100 mls/hr IVPB Q24H [facility] Last Admin: 03/05/19 15:47 Dose: 100 mls/hr Metronidazole (Flagyl 500mg Premixed Ivpb -) 500 mg in 100 mls @ 100 mls/hr IVPB Q8H [facility] Last Admin: 03/05/19 15:48 Dose: 100 mls/hr Insulin Aspart (Novolog Vial Sliding Scale -) 1 vial SQ ACHS [facility]; Protocol Last Admin: 03/05/19 16:34 Dose: Not Given Isosorbide Mononitrate (Imdur -) 60 mg PO DAILY [facility] Last Admin: 03/05/19 09:22 Dose: 60 mg Labetalol HCl (Normodyne -) 300 mg PO BID [facility] Last Admin: 03/05/19 09:22 Dose: 300 mg Lisinopril (Prinivil) 40 mg PO DAILY [facility] Last Admin: 03/05/19 09:21 Dose: 40 mg Nifedipine (Procardia Xl -) 60 mg PO BID [facility] Last Admin: 03/05/19 09:23 Dose: 60 mg Nifedipine (Procardia Xl -) 30 mg PO ONCE ONE Stop: 03/05/19 23:43 Ondansetron HCl (Zofran Injection) 4 mg IVPUSH Q6H PRN PRN Reason: NAUSEA AND/OR VOMITING Oxycodone HCl (Roxicodone -) 5 mg PO Q8H PRN PRN Reason: PAIN Last Admin: 03/05/19 10:53 Dose: 5 mg Senna (Senna -) 1 tab PO BID [facility] Last Admin: 03/05/19 09:25 Dose: Not Given Spironolactone (Aldactone -) 50 mg PO DAILY [facility] Last Admin: 03/05/19 09:19 Dose: 50 mg - Objective Vital Signs: Vital Signs Temperature 98.3 F 03/05/19 14:00 Pulse Rate 54 L 03/05/19 14:00 Respiratory Rate 20 03/05/19 09:00 Blood Pressure 133/56 L 03/05/19 14:00 O2 Sat by Pulse Oximetry (%) 94 L 03/05/19 09:00 Constitutional: Yes: Calm Eyes: Yes: Conjunctiva Clear HENT: Yes: Atraumatic Neck: Yes: Supple Cardiovascular: Yes: S1, S2 Respiratory: Yes: CTA Bilaterally Gastrointestinal: Yes: Soft Genitourinary: Yes: WNL Extremities: Yes: Other (bka) Neurological: Yes: Oriented Psychiatric: Yes: Oriented Labs: CBC, BMP 03/04/19 07:20 03/04/19 07:20 INR, PTT INR 1.18 (0.83-1.09) H 03/03/19 06:30 Problem List - Problems (1) Gangrene of toe of right foot Code(s): I96 - GANGRENE, NOT ELSEWHERE CLASSIFIED (2) ESRD (end stage renal disease) Code(s): N18.6 - END STAGE RENAL DISEASE Assessment/Plan Current Medications Generic Name Dose Route Start Last Admin Trade Name Freq PRN Reason Stop Dose Admin Acetaminophen 650 mg 03/03/19 17:26 03/05/19 10:54 Tylenol - PO 650 mg Q4H PRN Administration PAIN LEVEL 1-5 Atorvastatin Calcium 80 mg 03/03/19 22:00 03/04/19 21:05 Lipitor - PO 80 mg HS [facility] Administration Calcitriol 0.25 mcg 03/04/19 10:00 03/05/19 09:23 Rocaltrol - PO 0.25 mcg DAILY [facility] Administration Docusate Sodium 100 mg 03/03/19 22:00 03/05/19 14:50 Colace - PO Not Given TID [facility] Ferrous Sulfate 325 mg 03/03/19 22:00 03/05/19 09:20 Feosol - PO 325 mg BID [facility] Administration Furosemide 40 mg 03/04/19 10:00 03/05/19 09:22 Lasix - PO 40 mg DAILY [facility] Administration Heparin Sodium (Porcine) 5,000 unit 03/03/19 22:00 03/05/19 09:26 Heparin - SQ 5,000 unit BID [facility] Administration Hydralazine HCl 100 mg 03/03/19 22:00 03/05/19 14:50 Apresoline - PO 100 mg TID [facility] Administration Ceftriaxone Sodium 1 gm/ 50 mls @ 100 mls/hr 03/04/19 16:15 03/05/19 15:47 Dextrose IVPB 100 mls/hr Q24H [facility] Administration Metronidazole 500 mg in 100 mls @ 100 mls/hr 03/04/19 00:15 03/05/19 15:48 Flagyl 500mg Premixed Ivpb - IVPB 100 mls/hr Q8H [facility] Administration Insulin Aspart 1 vial 03/03/19 22:00 03/05/19 16:34 Novolog Vial Sliding Scale - SQ Not Given ACHS [facility] Protocol Isosorbide Mononitrate 60 mg 03/04/19 10:00 03/05/19 09:22 Imdur - PO 60 mg DAILY [facility] Administration Labetalol HCl 300 mg 03/03/19 22:00 03/05/19 09:22 Normodyne - PO 300 mg BID [facility] Administration Lisinopril 40 mg 03/04/19 10:00 03/05/19 09:21 Prinivil PO 40 mg DAILY [facility] Administration Nifedipine 60 mg 03/03/19 22:00 03/05/19 09:23 Procardia Xl - PO 60 mg BID [facility] Administration Nifedipine 30 mg 03/05/19 23:42 Procardia Xl - PO 03/05/19 23:43 ONCE ONE Ondansetron HCl 4 mg 03/03/19 17:26 Zofran Injection IVPUSH Q6H PRN NAUSEA AND/OR VOMITING Oxycodone HCl 5 mg 03/03/19 17:26 03/05/19 10:53 Roxicodone - PO 5 mg Q8H PRN Administration PAIN Senna 1 tab 03/03/19 22:00 03/05/19 09:25 Senna - PO Not Given BID [facility] Spironolactone 50 mg 03/04/19 10:00 03/05/19 09:19 Aldactone - PO 50 mg DAILY [facility] Administration Impression 1. ESRD on HD 2. anemia 3. DM 4. HTN 5. toe infection/gangrene 6. PVD 7. cavernous malformation Plan - next HD tomorrow - wound care - epogen for anemia - vascular follow up - renal diet - pt is a MWF HD
[2019-03-05] MEDS: ATORVASTATIN CA 80 MG TABLET (FP) PO SCH (22:19)
[2019-03-05] MEDS ORDERED: NIFEdipine E.R. 30 MG TABLET (FP) PO ONE (23:42)
[2019-03-06] MEDS: oxyCODONE HCL 5 MG TABLET PO PRN (02:32)
[2019-03-06] MEDS: INSULIN SLIDING SCALE (NOVOLOG) 1 VIAL SQ SCH ×5 (02:33→21:16)
[2019-03-06] MEDS: hydrALAZINE HCL 50 MG TABLET (FP) PO SCH ×3 (07:16→21:04)
[2019-03-06] MEDS: DOCUSATE SODIUM 100 MG CAPSULE (FP) PO SCH ×3 (07:17→21:04)
--- NOTE | 2019-03-06 07:43 | PN ---
Progress Note, Physician Chief Complaint: gangrene of toe History of Present Illness: Patient is a 68 year old male with a PMH significant for ESRD, HTN, CAD, [place], PVD , acute/subacute hemorrhagic stroke (06/2018), hypertensive urgency history, and was hospitalized at [facility] last fall for gangrenous left toe and underwent a left BKA on 07/04/2018. He presented to the ED on the advice of vascular surgery for gangrene of his right foot second toe. Patient admitted for a CTA, antibiotics and possible amputation of gangrenous 2nd digit, of right foot. s/p 2nd toe amputation POD#1 - Current Medication List Current Medications: Active Medications Acetaminophen (Tylenol -) 650 mg PO Q4H PRN PRN Reason: PAIN LEVEL 1-5 Last Admin: 03/05/19 10:54 Dose: 650 mg Atorvastatin Calcium (Lipitor -) 80 mg PO HS [facility] Last Admin: 03/05/19 22:19 Dose: 80 mg Calcitriol (Rocaltrol -) 0.25 mcg PO DAILY [facility] Last Admin: 03/05/19 09:23 Dose: 0.25 mcg Docusate Sodium (Colace -) 100 mg PO TID [facility] Last Admin: 03/06/19 07:17 Dose: Not Given Epoetin Thomas (Epogen -) 8,000 unit IVPUSH ONCE ONE Stop: 03/06/19 16:53 Ferrous Sulfate (Feosol -) 325 mg PO BID [facility] Last Admin: 03/05/19 22:18 Dose: 325 mg Furosemide (Lasix -) 40 mg PO DAILY [facility] Last Admin: 03/05/19 09:22 Dose: 40 mg Heparin Sodium (Porcine) (Heparin -) 5,000 unit SQ BID [facility] Last Admin: 03/05/19 22:18 Dose: 5,000 unit Hydralazine HCl (Apresoline -) 100 mg PO TID [facility] Last Admin: 03/06/19 07:16 Dose: 100 mg Ceftriaxone Sodium 1 gm/ (Dextrose) 50 mls @ 100 mls/hr IVPB Q24H [facility] Last Admin: 03/05/19 15:47 Dose: 100 mls/hr Metronidazole (Flagyl 500mg Premixed Ivpb -) 500 mg in 100 mls @ 100 mls/hr IVPB Q8H [facility] Last Admin: 03/06/19 01:00 Dose: 100 mls/hr Sodium Chloride (Normal Saline -) 250 mls @ 3,000 mls/hr IV PRN PRN PRN Reason: Hypotension during Dialysis Stop: 03/06/19 16:52 Insulin Aspart (Novolog Vial Sliding Scale -) 1 vial SQ ACHS [facility]; Protocol Last Admin: 03/06/19 07:17 Dose: Not Given Isosorbide Mononitrate (Imdur -) 60 mg PO DAILY [facility] Last Admin: 03/05/19 09:22 Dose: 60 mg Labetalol HCl (Normodyne -) 300 mg PO BID [facility] Last Admin: 03/05/19 22:19 Dose: 300 mg Lisinopril (Prinivil) 40 mg PO DAILY [facility] Last Admin: 03/05/19 09:21 Dose: 40 mg Nifedipine (Procardia Xl -) 60 mg PO BID [facility] Last Admin: 03/05/19 22:18 Dose: 60 mg Ondansetron HCl (Zofran Injection) 4 mg IVPUSH Q6H PRN PRN Reason: NAUSEA AND/OR VOMITING Oxycodone HCl (Roxicodone -) 5 mg PO Q8H PRN PRN Reason: PAIN Last Admin: 03/06/19 02:32 Dose: 5 mg Senna (Senna -) 1 tab PO BID [facility] Last Admin: 03/05/19 22:16 Dose: Not Given Spironolactone (Aldactone -) 50 mg PO DAILY [facility] Last Admin: 03/05/19 09:19 Dose: 50 mg - Objective Vital Signs: Vital Signs Temperature 98.8 F 03/05/19 17:02 Pulse Rate 54 L 03/06/19 05:00 Respiratory Rate 18 03/06/19 05:00 Blood Pressure 108/58 L 03/06/19 05:00 O2 Sat by Pulse Oximetry (%) 95 03/05/19 20:15 Constitutional: Yes: Well Nourished, No Distress, Calm Eyes: Yes: WNL, Conjunctiva Clear, EOM Intact HENT: Yes: WNL, Atraumatic, Normocephalic Neck: Yes: WNL, Supple, Trachea Midline Cardiovascular: Yes: WNL, Regular Rate and Rhythm Respiratory: Yes: WNL, Regular, CTA Bilaterally Gastrointestinal: Yes: WNL, Normal Bowel Sounds, Soft ...Rectal Exam: Yes: Deferred Genitourinary: Yes: WNL Musculoskeletal: Yes: WNL Extremities: Yes: WNL Edema: No Peripheral Pulses: Left Doralis Pedis: 0 (left BKA), Right Dorsalis Pedis: 0, Left Femoral: 3+, Right Femoral: 3+ Integumentary: Yes: Venous Stasis Changes Wound/Incision: Yes: Clean/Dry, Other ((left BKA, right 2nd toe amputation. 3rd & 4th toe dusky) Neurological: Yes: Oriented ...Motor Strength: WNL Psychiatric: Yes: WNL, Alert, Oriented Labs: CBC, BMP 03/04/19 07:20 03/04/19 07:20 INR, PTT INR 1.18 (0.83-1.09) H 03/03/19 06:30 Problem List - Problems (1) Gangrene of toe of right foot Assessment/Plan: Patient admitted from wound care for evaluation of right second digit gangrenous 2nd toe, right foot. CTA with runoff shows two vessel runoff into the foot. No stenosis. per vascular note, no vascular interventions. POD#2 from 2nd toe amputation continue abx Flagyl and ceftriaxone. ID following and appreciate input -Blood cultures with CoNS, will follow sensitivities -Wound redressed with wet to dry DSD -WBAT to the heel. -appreciate surgery's recommedations Code(s): I96 - GANGRENE, NOT ELSEWHERE CLASSIFIED (2) Prophylactic measure Assessment/Plan: FEN resume renal diet DVT Proph heparin sq bud early ambulation after surgery Dispo maintain as inpatient full code discharge planning Code(s): Z29.9 - ENCOUNTER FOR PROPHYLACTIC MEASURES, UNSPECIFIED (3) Acquired absence of left leg below knee Assessment/Plan: s/p BKA Code(s): Z89.512 - ACQUIRED ABSENCE OF LEFT LEG BELOW KNEE (4) Anemia Assessment/Plan: daily CBC continue ferrous sulfate, epogen transfuse if hgb < 8.0 or symptomatic Code(s): D64.9 - ANEMIA, UNSPECIFIED Qualifiers: Vitamin B12 deficiency anemia type: other B12 deficiency (5) ESRD (end stage renal disease) Assessment/Plan: dialysis per renal. - dialysis tomorrow schedule at home M/W/F -1.5 L removed yesterday -nephrology following and appreciate recommendations -monitor kidney function Code(s): N18.6 - END STAGE RENAL DISEASE (6) Congestive heart failure Assessment/Plan: monitor of volume overload -HD today on lasix daily weights Code(s): I50.9 - HEART FAILURE, UNSPECIFIED (7) Hypertension Assessment/Plan: BP elevated on admission, now normotensive -continue home medications and monitor BP. On Lisinopril 40mg, Imdur 60mg daily , Procardia xl 60mg qd, hydralazine 100mg tid, labetalol 300mg bid -appreciate cardiology recommendations Code(s): I10 - ESSENTIAL (PRIMARY) HYPERTENSION Qualifiers: Hypertension type: essential hypertension Qualified Code(s): I10 - Essential (primary) hypertension (8) AV fistula Code(s): I77.0 - ARTERIOVENOUS FISTULA, ACQUIRED (9) Type 2 diabetes mellitus with other skin ulcer Assessment/Plan: [facility] novolog sliding scale Code(s): E11.622 - TYPE 2 DIABETES MELLITUS WITH OTHER SKIN ULCER; L98.499 - NON -PRESSURE CHRONIC ULCER OF SKIN OF SITES W UNSP SEVERITY Visit type - Emergency Visit Emergency Visit: Yes ED Registration Date: 02/27/19 Care time: The patient presented to the Emergency Department on the above date and was hospitalized for further evaluation of their emergent condition. - New Patient This patient is new to me today: No - Critical Care Critical Care patient: No - Discharge Referral Referred to [facility] Med P.C.: No
[2019-03-06] MEDS ORDERED: SODIUM CHLORIDE 250 ML IV PRN (10:20)
[2019-03-06] MEDS ORDERED: EPOETIN ALFA 2,000 UNIT/1 ML VIAL IVPUSH ONE (10:30)
[2019-03-06] MEDS: FERROUS SO4 325 MG TABLET (FP) PO SCH ×2 (10:39→21:04)
[2019-03-06] MEDS: SPIRONOLACTONE 25 MG TABLET (FP) PO SCH (10:39)
[2019-03-06 10:40] LABS: HEMATOCRIT 26.1 % (35.4-49); HEMOGLOBIN 8.7 GM/dL (11.7-16.9); MCH 33.8 pg (25.7-33.7); MCHC 33.5 g/dl (32.0-35.9); MEAN PLT VOLUME 8.6 fl (7.5-11.1); PLATELET COUNT 211 K/MM3 (134-434); RBC 2.58 M/mm3 (4.00-5.60); RDW 16.6 % (11.9-15.9); WHITE BLOOD COUNT 9.2 K/mm3 (4.0-10.0)
[2019-03-06] MEDS: ISOSORBIDE MONONITRATE 60 MG TAB.SR.24H (FP) PO SCH (10:40)
[2019-03-06] MEDS: HEPARIN NA (PORCINE) 5,000 UNITS/ML 1ML VIAL SQ SCH ×2 (10:40→21:12)
[2019-03-06] MEDS: FUROSEMIDE 40 MG TABLET (FP) PO SCH (10:41)
[2019-03-06] MEDS: NIFEdipine E.R 60 MG TABLET (UD) PO SCH ×2 (10:42→21:05)
[2019-03-06] MEDS: LISINOPRIL 20 MG TABLET (FP) PO SCH (10:42)
[2019-03-06] MEDS: SENNOSIDES 8.6MG TABLET (FP) PO SCH ×2 (10:43→21:05)
--- NOTE | 2019-03-06 11:00 | ECHO ---
Name: KARI VILLALOBOS Exam:Adult Echocardiogram Study Date: 03/06/2019 07:51 AM Age: 69 yrs Reason For Study: HTN Height: 64 in Weight: 142 lb BSA: 1.7 m2 MMode/2D Measurements & Calculations IVSd: 1.4 cm Ao root diam: 3.2 cm LVIDd: 4.4 cm LA dimension: 4.4 cm LVIDs: 2.8 cm LVPWd: 1.3 cm EDV(Teich): 85.6 ml LVOT diam: 2.0 cm ESV(Teich): 28.4 ml LAV (MOD-bp): 71.1 ml Doppler Measurements & Calculations MV E max bull: 122.0 cm/sec Ao V2 max: 175.1 cm/sec MV A max bull: 59.2 cm/sec Ao max P.3 mmHg MV E/A: 2.1 MV dec time: 0.18 sec SANDRA(V,D): 1.5 cm2 LV V1 max P.8 mmHg MR max bull: 270.6 cm/sec LV V1 max: 83.4 cm/sec MR max P.3 mmHg TR max bull: 252.0 cm/sec PA V2 max: 122.2 cm/sec TR max P.5 mmHg PA max P.0 mmHg Med Peak E' Bull: 5.2 cm/sec PI Vmax: 211.7 cm/sec Med E/e': 23.4 Lat Peak E' Bull: 8.2 cm/sec Lat E/e': 15.0 Left Ventricle There is mild concentric left ventricular hypertrophy. Ejection Fraction = 50-55%. Right Ventricle The right ventricle is grossly normal size. The right ventricular systolic function is grossly normal . Atria The left atrium is moderately dilated. Mitral Valve There is moderate mitral valve thickening. There is mild mitral regurgitation. Tricuspid Valve The tricuspid valve is not well visualized, but is grossly normal. There is mild to moderate tricuspi d regurgitation. Right ventricular systolic pressure is normal. Aortic Valve There is mild aortic sclerosis.;. No hemodynamically significant valvular aortic stenosis. No aortic regurgitation is present. Pulmonic Valve The pulmonic valve is not well seen, but is grossly normal. There is no pulmonic valvular stenosis. M ild pulmonic valvular regurgitation. Great Vessels The aortic root is normal size. Pericardium/Pleura There is no pericardial effusion. Interpretation Summary Ejection Fraction = 50-55%. The left atrium is moderately dilated. There is moderate mitral valve thickening. There is mild mitral regurgitation. There is mild to moderate tricuspid regurgitation. There is mild aortic sclerosis.; There is no pericardial effusion. MD Salas *Junior 03/06/2019 11:00 AM
[2019-03-06 11:22] LABS: BLOOD UREA NITROGEN 33.4 mg/dL (7-18); CALCIUM 8.7 mg/dL (8.5-10.1); CREATININE 5.2 mg/dL (0.55-1.3); POTASSIUM 4.1 mmol/L (3.5-5.1)
--- NOTE | 2019-03-06 13:34 | PN ---
Progress Note, Physician History of Present Illness: Pt seen and examined at bedside. He is tolerating HD. - Current Medication List Current Medications: Active Medications Acetaminophen (Tylenol -) 650 mg PO Q4H PRN PRN Reason: PAIN LEVEL 1-5 Last Admin: 03/05/19 10:54 Dose: 650 mg Atorvastatin Calcium (Lipitor -) 80 mg PO HS [facility] Last Admin: 03/05/19 22:19 Dose: 80 mg Calcitriol (Rocaltrol -) 0.25 mcg PO DAILY [facility] Last Admin: 03/05/19 09:23 Dose: 0.25 mcg Docusate Sodium (Colace -) 100 mg PO TID [facility] Last Admin: 03/06/19 07:17 Dose: Not Given Ferrous Sulfate (Feosol -) 325 mg PO BID [facility] Last Admin: 03/05/19 22:18 Dose: 325 mg Furosemide (Lasix -) 40 mg PO DAILY [facility] Last Admin: 03/05/19 09:22 Dose: 40 mg Heparin Sodium (Porcine) (Heparin -) 5,000 unit SQ BID [facility] Last Admin: 03/05/19 22:18 Dose: 5,000 unit Hydralazine HCl (Apresoline -) 100 mg PO TID [facility] Last Admin: 03/06/19 07:16 Dose: 100 mg Ceftriaxone Sodium 1 gm/ (Dextrose) 50 mls @ 100 mls/hr IVPB Q24H [facility] Last Admin: 03/05/19 15:47 Dose: 100 mls/hr Metronidazole (Flagyl 500mg Premixed Ivpb -) 500 mg in 100 mls @ 100 mls/hr IVPB Q8H [facility] Last Admin: 03/06/19 01:00 Dose: 100 mls/hr Insulin Aspart (Novolog Vial Sliding Scale -) 1 vial SQ ACHS [facility]; Protocol Last Admin: 03/06/19 07:17 Dose: Not Given Isosorbide Mononitrate (Imdur -) 60 mg PO DAILY [facility] Last Admin: 03/05/19 09:22 Dose: 60 mg Labetalol HCl (Normodyne -) 300 mg PO BID [facility] Last Admin: 03/05/19 22:19 Dose: 300 mg Lisinopril (Prinivil) 40 mg PO DAILY [facility] Last Admin: 03/05/19 09:21 Dose: 40 mg Nifedipine (Procardia Xl -) 60 mg PO BID [facility] Last Admin: 03/05/19 22:18 Dose: 60 mg Ondansetron HCl (Zofran Injection) 4 mg IVPUSH Q6H PRN PRN Reason: NAUSEA AND/OR VOMITING Oxycodone HCl (Roxicodone -) 5 mg PO Q8H PRN PRN Reason: PAIN Last Admin: 03/06/19 02:32 Dose: 5 mg Senna (Senna -) 1 tab PO BID [facility] Last Admin: 03/05/19 22:16 Dose: Not Given Spironolactone (Aldactone -) 50 mg PO DAILY [facility] Last Admin: 03/05/19 09:19 Dose: 50 mg - Objective Vital Signs: Vital Signs Temperature 98.8 F 03/06/19 09:55 Pulse Rate 60 03/06/19 13:05 Respiratory Rate 18 03/06/19 13:05 Blood Pressure 149/63 03/06/19 13:05 O2 Sat by Pulse Oximetry (%) 95 03/06/19 09:00 Constitutional: Yes: Calm Eyes: Yes: Conjunctiva Clear HENT: Yes: Atraumatic Neck: Yes: Supple Cardiovascular: Yes: S1, S2 Respiratory: Yes: CTA Bilaterally Gastrointestinal: Yes: Normal Bowel Sounds, Soft Genitourinary: Yes: WNL Musculoskeletal: Yes: Other (bka) Edema: No Wound/Incision: Yes: Dressing Dry and Intact Neurological: Yes: Oriented Psychiatric: Yes: Oriented Labs: CBC, BMP 03/06/19 10:00 03/06/19 10:00 INR, PTT INR 1.18 (0.83-1.09) H 03/03/19 06:30 Problem List - Problems (1) Gangrene of toe of right foot Code(s): I96 - GANGRENE, NOT ELSEWHERE CLASSIFIED (2) ESRD (end stage renal disease) Code(s): N18.6 - END STAGE RENAL DISEASE Assessment/Plan Current Medications Generic Name Dose Route Start Last Admin Trade Name Freq PRN Reason Stop Dose Admin Acetaminophen 650 mg 03/03/19 17:26 03/05/19 10:54 Tylenol - PO 650 mg Q4H PRN Administration PAIN LEVEL 1-5 Atorvastatin Calcium 80 mg 03/03/19 22:00 03/05/19 22:19 Lipitor - PO 80 mg HS [facility] Administration Calcitriol 0.25 mcg 03/04/19 10:00 06/20/19 09:23 Rocaltrol - PO 0.25 mcg DAILY [facility] Administration Docusate Sodium 100 mg 03/03/19 22:00 03/06/19 07:17 Colace - PO Not Given TID [facility] Ferrous Sulfate 325 mg 03/03/19 22:00 03/05/19 22:18 Feosol - PO 325 mg BID [facility] Administration Furosemide 40 mg 03/04/19 10:00 03/05/19 09:22 Lasix - PO 40 mg DAILY [facility] Administration Heparin Sodium (Porcine) 5,000 unit 03/03/19 22:00 03/05/19 22:18 Heparin - SQ 5,000 unit BID [facility] Administration Hydralazine HCl 100 mg 03/03/19 22:00 03/06/19 07:16 Apresoline - PO 100 mg TID [facility] Administration Ceftriaxone Sodium 1 gm/ 50 mls @ 100 mls/hr 03/04/19 16:15 03/05/19 15:47 Dextrose IVPB 100 mls/hr Q24H [facility] Administration Metronidazole 500 mg in 100 mls @ 100 mls/hr 03/04/19 00:15 03/06/19 01:00 Flagyl 500mg Premixed Ivpb - IVPB 100 mls/hr Q8H [facility] Administration Insulin Aspart 1 vial 03/03/19 22:00 03/06/19 07:17 Novolog Vial Sliding Scale - SQ Not Given ACHS [facility] Protocol Isosorbide Mononitrate 60 mg 03/04/19 10:00 03/05/19 09:22 Imdur - PO 60 mg DAILY [facility] Administration Labetalol HCl 300 mg 03/03/19 22:00 03/05/19 22:19 Normodyne - PO 300 mg BID [facility] Administration Lisinopril 40 mg 03/04/19 10:00 03/05/19 09:21 Prinivil PO 40 mg DAILY [facility] Administration Nifedipine 60 mg 03/03/19 22:00 03/05/19 22:18 Procardia Xl - PO 60 mg BID [facility] Administration Ondansetron HCl 4 mg 03/03/19 17:26 Zofran Injection IVPUSH Q6H PRN NAUSEA AND/OR VOMITING Oxycodone HCl 5 mg 03/03/19 17:26 03/06/19 02:32 Roxicodone - PO 5 mg Q8H PRN Administration PAIN Senna 1 tab 03/03/19 22:00 03/05/19 22:16 Senna - PO Not Given BID [facility] Spironolactone 50 mg 03/04/19 10:00 03/05/19 09:19 Aldactone - PO 50 mg DAILY [facility] Administration Impression 1. ESRD on HD 2. anemia 3. DM 4. HTN 5. toe infection/gangrene 6. PVD 7. cavernous malformation Plan - pt tolerating HD today - next HD is on Saturday - will see pt on Saturday - cont bp meds - epogen for anemia - renal diet - pt is a MWF HD
[2019-03-06] MEDS: CALCITRIOL 0.25 MCG CAPSULE (FP) PO SCH (14:22)
[2019-03-06 15:47] VITALS: BMI 24.3
[2019-03-06] MEDS: LABETALOL HCL 100 MG TABLET (FP) PO SCH ×2 (16:41→21:03)
--- NOTE | 2019-03-06 17:10 | PN ---
Progress Note (short form) - Note Progress Note: PODIATRY NOTE: 69 year old diabetic, PVD, ESRD s/p 2nd digit amputation. Doing better today. Denies any pain in the foot today. Is in better spiritis. Dressing is c/d/i to the right foot. PMHx: IDDM, HTN, HLP, ESRD on HD, CAD s/p SD Meds: noted in chart ALL: zosyn MONICA: R foot: pedal pulses nonpalpable, TG wnl. There is sutures intact at the incision site with packing in place, no erythema, no edema, incision site coapting, no signs of infection, Third is mildly dusky with some duskiness overlying the dorsum of foot but is not worsening at this time Imp: 69 year old diabetic, PVD male with right second digit gangrene P: Evaluated and reviewed Stable from pod standpoint Will need f/u as an outpatient as if gangrene continues to progress may need further amputation in the future but can be followed as outpatient Dressing can be kept c/d/i with wet to dry and DSD and can keep upon d/c If d/c over weekend to f/u next Saturday with Dr. Gacria in the wound care center. Will follow up. Iv Abx per ID.
[2019-03-06] MEDS ORDERED: cefTRIAXone SODIUM 1 GM VIAL ONE (17:33)
[2019-03-06] MEDS ORDERED: DEXTROSE 5%-WATER - 50 ML IVPB ONE (17:34)
[2019-03-06] MEDS: VITAMIN B COMP W-C 1 EA TABLET PO SCH (17:46)
[2019-03-06] MEDS: CEFTRIAXONE 1 GM in DEXTROSE 5%-WATER - 50 ML IVPB SCH (17:46)
[2019-03-06] MEDS ORDERED: PT OWN MED DRAWER 7, Y5N ONE (18:04)
[2019-03-06] MEDS: ATORVASTATIN CA 80 MG TABLET (FP) PO SCH (21:03)
[2019-03-06] MEDS: ACETAMINOPHEN 325 MG TABLET (FP) PO PRN (22:11)
[2019-03-07] MEDS: DOCUSATE SODIUM 100 MG CAPSULE (FP) PO SCH ×3 (05:44→21:47)
[2019-03-07] MEDS: hydrALAZINE HCL 50 MG TABLET (FP) PO SCH ×3 (05:44→21:45)
[2019-03-07] MEDS: INSULIN SLIDING SCALE (NOVOLOG) 1 VIAL SQ SCH ×4 (06:16→21:49)
[2019-03-07] MEDS: ACETAMINOPHEN 325 MG TABLET (FP) PO PRN (06:43)
--- NOTE | 2019-03-07 07:11 | PN ---
Progress Note (short form) - Note Progress Note: Podiatry F/U: Seen/evaluated at bedside NAD. Pain to right foot, controlled. Denies F/V/N/C/ SOB/CP. Afebrile. S/p R 2nd digit amputation. MONICA: R foot: pedal pulses nonpalpable, TG wnl. Sutures coapted, no dehiscence noted , no purulent drainage, no fluctuance, no streaking cellulitis, no signs of active infection. There is duskiness to the third digit. There are no gangrenous changes to the toe. Imp: 69 year old diabetic, PVD male s/p R 2nd digit amputation 1. DSD R foot 2. Minimal WB R foot 3. Will have to monitor the third digit for gangrenous changes 4. Pain control 5. Will follow Juan Garcia DPM
--- NOTE | 2019-03-07 09:42 | PN ---
Physical Exam: SUBJECTIVE: Patient seen and examined he has no pain in his rt foot dressin place OBJECTIVE: Vital Signs Period Temp Pulse Resp BP Sys/Cole Pulse Ox Last 24 Hr 97.8 F-98.8 F 52-64 18-20 115-197/57-69 94 GENERAL: The patient is awake, alert, and fully oriented, in no acute distress. HEAD: Normal with no signs of trauma. EYES: PERRL, extraocular movements intact, sclera anicteric, conjunctiva clear. No ptosis. ENT: Ears normal, nares patent, oropharynx clear without exudates, moist mucous membranes. NECK: Trachea midline, full range of motion, supple. LUNGS: Breath sounds equal, clear to auscultation bilaterally, no wheezes, no crackles, no accessory muscle use. HEART: Regular rate and rhythm, S1, S2 without murmur, rub or gallop. ABDOMEN: Soft, nontender, nondistended, normoactive bowel sounds, no guarding, no rebound, no hepatosplenomegaly, no masses. EXTREMITIES: left aka rt foot has mild swelling and s/p surgery and dressing place. NEUROLOGICAL: Cranial nerves II through XII grossly intact. Normal speech, gait not observed. Laboratory Results - last 24 hr 03/06/19 03/06/19 03/06/19 10:00 10:00 14:12 WBC 9.2 RBC 2.58 L Hgb 8.7 L Hct 26.1 L MCV 101.0 H MCH 33.8 H MCHC 33.5 RDW 16.6 H Plt Count 211 MPV 8.6 Sodium 139 Potassium 4.1 Chloride 101 Carbon Dioxide 29 Anion Gap 9 BUN 33.4 H Creatinine 5.2 H Est GFR (CKD-EPI)AfAm 11.91 Est GFR (CKD-EPI)NonAf 10.27 POC Glucometer 118 Random Glucose 153 H Calcium 8.7 03/06/19 03/06/19 03/07/19 17:39 21:15 06:09 WBC RBC Hgb Hct MCV MCH MCHC RDW Plt Count MPV Sodium Potassium Chloride Carbon Dioxide Anion Gap BUN Creatinine Est GFR (CKD-EPI)AfAm Est GFR (CKD-EPI)NonAf POC Glucometer 102 103 87 Random Glucose Calcium Active Medications Generic Name Dose Route Start Last Admin Trade Name Freq PRN Reason Stop Dose Admin Acetaminophen 650 mg 03/03/19 17:26 06/22/19 06:43 Tylenol - PO 650 mg Q4H PRN Administration PAIN LEVEL 1-5 Atorvastatin Calcium 80 mg 03/03/19 22:00 03/06/19 21:03 Lipitor - PO 80 mg HS [facility] Administration Calcitriol 0.25 mcg 03/04/19 10:00 03/06/19 14:22 Rocaltrol - PO 0.25 mcg DAILY [facility] Administration Docusate Sodium 100 mg 03/03/19 22:00 03/07/19 05:44 Colace - PO Not Given TID [facility] Ferrous Sulfate 325 mg 03/03/19 22:00 03/06/19 21:04 Feosol - PO 325 mg BID [facility] Administration Furosemide 40 mg 03/04/19 10:00 03/06/19 10:41 Lasix - PO Not Given DAILY [facility] Heparin Sodium (Porcine) 5,000 unit 03/03/19 22:00 03/06/19 21:12 Heparin - SQ 5,000 unit BID [facility] Administration Hydralazine HCl 100 mg 03/03/19 22:00 03/07/19 05:44 Apresoline - PO 100 mg TID [facility] Administration Ceftriaxone Sodium 1 gm/ 50 mls @ 100 mls/hr 03/04/19 16:15 03/06/19 17:46 Dextrose IVPB 100 mls/hr Q24H [facility] Administration Metronidazole 500 mg in 100 mls @ 100 mls/hr 03/04/19 00:15 03/06/19 23:52 Flagyl 500mg Premixed Ivpb - IVPB 100 mls/hr Q8H [facility] Administration Insulin Aspart 1 vial 03/03/19 22:00 03/07/19 06:16 Novolog Vial Sliding Scale - SQ Not Given ACHS [facility] Protocol Isosorbide Mononitrate 60 mg 03/04/19 10:00 03/06/19 10:40 Imdur - PO Not Given DAILY [facility] Labetalol HCl 300 mg 03/03/19 22:00 03/06/19 21:03 Normodyne - PO 300 mg BID [facility] Administration Lisinopril 40 mg 03/04/19 10:00 03/06/19 10:42 Prinivil PO Not Given DAILY [facility] Multivit/Ca Carb/B Cmplx/FA/Prenat 1 tablet 03/06/19 16:00 03/06/19 17:46 Nephro-Brynn - PO 1 tablet DAILY [facility] Administration Nifedipine 60 mg 03/03/19 22:00 03/06/19 21:05 Procardia Xl - PO 60 mg BID [facility] Administration Ondansetron HCl 4 mg 03/03/19 17:26 Zofran Injection IVPUSH Q6H PRN NAUSEA AND/OR VOMITING Senna 1 tab 03/03/19 22:00 03/06/19 21:05 Senna - PO 1 tab BID [facility] Administration Spironolactone 50 mg 03/04/19 10:00 03/06/19 10:39 Aldactone - PO Not Given DAILY [facility] ASSESSMENT/PLAN: Patient is a 68 year old male with a PMH significant for ESRD, HTN, CAD, [place], PVD , acute/subacute hemorrhagic stroke (06/2018), hypertensive urgency history, He presented to the ED on the advice of vascular surgery for gangrene of his right foot second toe. \He is s/p surgery and toe amputation. He is feeling better and has no pain in his surgical foot pt is seen by surgery and also DPM will continue Rocephin renal diet physical therapy patient wants to go home and advised him that he still need few days of abx Acetaminophen (Tylenol -) 650 mg PO Q4H PRN PRN Reason: PAIN LEVEL 1-5 Last Admin: 03/07/19 06:43 Dose: 650 mg Atorvastatin Calcium (Lipitor -) 80 mg PO [facility] Last Admin: 03/06/19 21:03 Dose: 80 mg Calcitriol (Rocaltrol -) 0.25 mcg PO DAILY [facility] Last Admin: 03/06/19 14:22 Dose: 0.25 mcg Docusate Sodium (Colace -) 100 mg PO TID [facility] Last Admin: 03/07/19 05:44 Dose: Not Given Ferrous Sulfate (Feosol -) 325 mg PO BID [facility] Last Admin: 03/06/19 21:04 Dose: 325 mg Furosemide (Lasix -) 40 mg PO DAILY [facility] Last Admin: 03/06/19 10:41 Dose: Not Given Heparin Sodium (Porcine) (Heparin -) 5,000 unit SQ BID [facility] Last Admin: 03/06/19 21:12 Dose: 5,000 unit Hydralazine HCl (Apresoline -) 100 mg PO TID [facility] Last Admin: 03/07/19 05:44 Dose: 100 mg Ceftriaxone Sodium 1 gm/ (Dextrose) 50 mls @ 100 mls/hr IVPB Q24H [facility] Last Admin: 03/06/19 17:46 Dose: 100 mls/hr Metronidazole (Flagyl 500mg Premixed Ivpb -) 500 mg in 100 mls @ 100 mls/hr IVPB Q8H [facility] Last Admin: 03/06/19 23:52 Dose: 100 mls/hr Insulin Aspart (Novolog Vial Sliding Scale -) 1 vial SQ ACHS [facility]; Protocol Last Admin: 03/07/19 06:16 Dose: Not Given Isosorbide Mononitrate (Imdur -) 60 mg PO DAILY [facility] Last Admin: 03/06/19 10:40 Dose: Not Given Labetalol HCl (Normodyne -) 300 mg PO BID [facility] Last Admin: 03/06/19 21:03 Dose: 300 mg Lisinopril (Prinivil) 40 mg PO DAILY [facility] Last Admin: 03/06/19 10:42 Dose: Not Given Multivit/Ca Carb/B Cmplx/FA/Prenat (Nephro-Brynn -) 1 tablet PO DAILY [facility] Last Admin: 03/06/19 17:46 Dose: 1 tablet Nifedipine (Procardia Xl -) 60 mg PO BID [facility] Last Admin: 03/06/19 21:05 Dose: 60 mg Ondansetron HCl (Zofran Injection) 4 mg IVPUSH Q6H PRN PRN Reason: NAUSEA AND/OR VOMITING Senna (Senna -) 1 tab PO BID [facility] Last Admin: 03/06/19 21:05 Dose: 1 tab Spironolactone (Aldactone -) 50 mg PO DAILY [facility] Last Admin: 03/06/19 10:39 Dose: Not Given Visit type - Emergency Visit Emergency Visit: Yes ED Registration Date: 02/27/19 Care time: The patient presented to the Emergency Department on the above date and was hospitalized for further evaluation of their emergent condition. - New Patient This patient is new to me today: Yes Date on this admission: 03/07/19 - Critical Care Critical Care patient: No - Discharge Referral Referred to [facility] Med P.C.: No
[2019-03-07] MEDS ORDERED: PT OWN MED DRAWER 7, Y5N ONE (10:18)
[2019-03-07] MEDS: VITAMIN B COMP W-C 1 EA TABLET PO SCH (10:36)
[2019-03-07] MEDS: ISOSORBIDE MONONITRATE 60 MG TAB.SR.24H (FP) PO SCH (10:37)
[2019-03-07] MEDS: LISINOPRIL 20 MG TABLET (FP) PO SCH (10:37)
[2019-03-07] MEDS: LABETALOL HCL 100 MG TABLET (FP) PO SCH ×2 (10:37→21:46)
[2019-03-07] MEDS: FUROSEMIDE 40 MG TABLET (FP) PO SCH (10:37)
[2019-03-07] MEDS: FERROUS SO4 325 MG TABLET (FP) PO SCH ×2 (10:37→21:46)
[2019-03-07] MEDS: HEPARIN NA (PORCINE) 5,000 UNITS/ML 1ML VIAL SQ SCH ×2 (10:37→21:47)
[2019-03-07] MEDS: SPIRONOLACTONE 25 MG TABLET (FP) PO SCH (10:37)
[2019-03-07] MEDS: NIFEdipine E.R 60 MG TABLET (UD) PO SCH ×2 (10:38→21:46)
[2019-03-07] MEDS: CALCITRIOL 0.25 MCG CAPSULE (FP) PO SCH (10:38)
[2019-03-07] MEDS: SENNOSIDES 8.6MG TABLET (FP) PO SCH ×2 (10:47→21:47)
[2019-03-07] MEDS: CEFTRIAXONE 1 GM in DEXTROSE 5%-WATER - 50 ML IVPB SCH (18:41)
[2019-03-07] MEDS: ATORVASTATIN CA 80 MG TABLET (FP) PO SCH (21:46)
[2019-03-08] MEDS ORDERED: PT OWN MED DRAWER 7, Y5N ONE ×2 (03:58→08:23)
[2019-03-08] MEDS: DOCUSATE SODIUM 100 MG CAPSULE (FP) PO SCH ×3 (05:47→22:16)
[2019-03-08] MEDS: hydrALAZINE HCL 50 MG TABLET (FP) PO SCH ×3 (05:47→22:16)
[2019-03-08] MEDS: INSULIN SLIDING SCALE (NOVOLOG) 1 VIAL SQ SCH ×4 (06:30→22:17)
[2019-03-08] MEDS: ISOSORBIDE MONONITRATE 60 MG TAB.SR.24H (FP) PO SCH (09:10)
[2019-03-08] MEDS: LISINOPRIL 20 MG TABLET (FP) PO SCH (09:10)
[2019-03-08] MEDS: FUROSEMIDE 40 MG TABLET (FP) PO SCH (09:10)
[2019-03-08] MEDS: SPIRONOLACTONE 25 MG TABLET (FP) PO SCH (09:11)
[2019-03-08] MEDS: LABETALOL HCL 100 MG TABLET (FP) PO SCH ×2 (09:11→22:15)
[2019-03-08] MEDS: FERROUS SO4 325 MG TABLET (FP) PO SCH ×2 (09:13→22:16)
[2019-03-08] MEDS: VITAMIN B COMP W-C 1 EA TABLET PO SCH (09:13)
[2019-03-08] MEDS: HEPARIN NA (PORCINE) 5,000 UNITS/ML 1ML VIAL SQ SCH ×2 (09:14→22:23)
[2019-03-08] MEDS: NIFEdipine E.R 60 MG TABLET (UD) PO SCH ×2 (09:16→22:16)
[2019-03-08] MEDS: CALCITRIOL 0.25 MCG CAPSULE (FP) PO SCH (09:16)
[2019-03-08] MEDS: SENNOSIDES 8.6MG TABLET (FP) PO SCH ×2 (09:16→22:17)
[2019-03-08] MEDS ORDERED: DEXTROSE 5%-WATER - 50 ML IVPB ONE (16:39)
[2019-03-08] MEDS ORDERED: cefTRIAXone SODIUM 1 GM VIAL ONE (16:39)
[2019-03-08] MEDS: CEFTRIAXONE 1 GM in DEXTROSE 5%-WATER - 50 ML IVPB SCH (17:04)
--- NOTE | 2019-03-08 18:58 | PN ---
Progress Note (short form) - Note Progress Note: PT seen and examined. States he feels good. Pt having dinner with his family in day room. States he is in no discomfort Problem List - Problems (1) Gangrene of toe of right foot Code(s): I96 - GANGRENE, NOT ELSEWHERE CLASSIFIED (2) Hypertensive urgency Code(s): I16.0 - HYPERTENSIVE URGENCY (3) Prophylactic measure Code(s): Z29.9 - ENCOUNTER FOR PROPHYLACTIC MEASURES, UNSPECIFIED (4) Sepsis Code(s): A41.9 - SEPSIS, UNSPECIFIED ORGANISM Visit type - Emergency Visit Emergency Visit: Yes ED Registration Date: 02/27/19 Care time: The patient presented to the Emergency Department on the above date and was hospitalized for further evaluation of their emergent condition. - New Patient This patient is new to me today: Yes Date on this admission: 03/08/19 - Critical Care Critical Care patient: No
[2019-03-08] MEDS ORDERED: INSULIN (NOVOLOG) ASPART 100 UNITS/ML 10ML VIAL ONE (20:35)
[2019-03-08] MEDS: ATORVASTATIN CA 80 MG TABLET (FP) PO SCH (22:16)
[2019-03-08] MEDS: ACETAMINOPHEN 325 MG TABLET (FP) PO PRN (23:00)
[2019-03-09] MEDS: hydrALAZINE HCL 50 MG TABLET (FP) PO SCH ×2 (05:54→15:18)
[2019-03-09] MEDS: DOCUSATE SODIUM 100 MG CAPSULE (FP) PO SCH ×2 (05:54→15:18)
[2019-03-09] MEDS: INSULIN SLIDING SCALE (NOVOLOG) 1 VIAL SQ SCH ×2 (06:00→11:42)
--- NOTE | 2019-03-09 07:15 | PN ---
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 He presented to the ED on the advice of vascular surgery for gangrene of his right foot second toe. Patient admitted for a CTA, antibiotics and possible amputation of gangrenous 2nd digit, of right foot. s/p 2nd toe amputation POD#1 - Current Medication List Current Medications: Active Medications Acetaminophen (Tylenol -) 650 mg PO Q4H PRN PRN Reason: PAIN LEVEL 1-5 Last Admin: 03/08/19 23:00 Dose: 650 mg Atorvastatin Calcium (Lipitor -) 80 mg PO HS [facility] Last Admin: 03/08/19 22:16 Dose: 80 mg Calcitriol (Rocaltrol -) 0.25 mcg PO DAILY [facility] Last Admin: 03/08/19 09:16 Dose: 0.25 mcg Docusate Sodium (Colace -) 100 mg PO TID [facility] Last Admin: 03/09/19 05:54 Dose: Not Given Epoetin Thomas (Procrit -) 10,000 unit IVPUSH ONCE ONE Stop: 03/09/19 08:01 Ferrous Sulfate (Feosol -) 325 mg PO BID [facility] Last Admin: 03/08/19 22:16 Dose: Not Given Furosemide (Lasix -) 40 mg PO DAILY [facility] Last Admin: 03/08/19 09:10 Dose: 40 mg Heparin Sodium (Porcine) (Heparin -) 5,000 unit SQ BID [facility] Last Admin: 03/08/19 22:23 Dose: 5,000 unit Hydralazine HCl (Apresoline -) 100 mg PO TID [facility] Last Admin: 03/09/19 05:54 Dose: 100 mg Ceftriaxone Sodium 1 gm/ (Dextrose) 50 mls @ 100 mls/hr IVPB Q24H [facility] Last Admin: 03/08/19 17:04 Dose: 100 mls/hr Metronidazole (Flagyl 500mg Premixed Ivpb -) 500 mg in 100 mls @ 100 mls/hr IVPB Q8H [facility] Last Admin: 03/08/19 23:15 Dose: 100 mls/hr Sodium Chloride (Normal Saline -) 250 mls @ 3,000 mls/hr IV PRN PRN PRN Reason: Hypotension during Dialysis Stop: 03/09/19 08:01 Insulin Aspart (Novolog Vial Sliding Scale -) 1 vial SQ ACHS [facility]; Protocol Last Admin: 03/09/19 06:00 Dose: Not Given Isosorbide Mononitrate (Imdur -) 60 mg PO DAILY [facility] Last Admin: 03/08/19 09:10 Dose: 60 mg Labetalol HCl (Normodyne -) 300 mg PO BID [facility] Last Admin: 03/08/19 22:15 Dose: 300 mg Lisinopril (Prinivil) 40 mg PO DAILY [facility] Last Admin: 03/08/19 09:10 Dose: 40 mg Multivit/Ca Carb/B Cmplx/FA/Prenat (Nephro-Brynn -) 1 tablet PO DAILY [facility] Last Admin: 03/08/19 09:13 Dose: 1 tablet Nifedipine (Procardia Xl -) 60 mg PO BID [facility] Last Admin: 03/08/19 22:16 Dose: 60 mg Ondansetron HCl (Zofran Injection) 4 mg IVPUSH Q6H PRN PRN Reason: NAUSEA AND/OR VOMITING Senna (Senna -) 1 tab PO BID [facility] Last Admin: 03/08/19 22:17 Dose: Not Given Spironolactone (Aldactone -) 50 mg PO DAILY [facility] Last Admin: 03/08/19 09:11 Dose: 50 mg - Objective Vital Signs: Vital Signs Temperature 98.3 F 03/09/19 06:00 Pulse Rate 56 L 03/09/19 06:00 Respiratory Rate 18 03/09/19 06:00 Blood Pressure 121/54 L 03/09/19 06:00 O2 Sat by Pulse Oximetry (%) 94 L 03/08/19 20:39 Constitutional: Yes: Well Nourished, No Distress, Calm Eyes: Yes: WNL, Conjunctiva Clear, EOM Intact HENT: Yes: WNL, Atraumatic, Normocephalic Neck: Yes: WNL, Supple, Trachea Midline Cardiovascular: Yes: WNL, Regular Rate and Rhythm Respiratory: Yes: WNL, Regular, CTA Bilaterally Gastrointestinal: Yes: WNL, Normal Bowel Sounds, Soft ...Rectal Exam: Yes: Deferred Breast(s): Yes: WNL Musculoskeletal: Yes: WNL Extremities: Yes: Amputation (R BKA, 2nd toe amputated, 3rd toe dusky) Edema: No Peripheral Pulses WNL: No Peripheral Pulses: Left Doralis Pedis: 0 (BKA), Right Dorsalis Pedis: 0, Left Femoral: 3+, Right Femoral: 3+ Integumentary: Yes: Other (2nd toe amputated , 3rd toe dusky R foot, as well as mildly along dorsum of the foot.) Wound/Incision: Yes: Clean/Dry, Sutures Intact, Dressing Dry and Intact Neurological: Yes: WNL, Alert, Oriented ...Motor Strength: WNL Psychiatric: Yes: WNL, Alert, Oriented Labs: CBC, BMP 03/06/19 10:00 03/06/19 10:00 INR, PTT INR 1.18 (0.83-1.09) H 03/03/19 06:30 Problem List - Problems (1) Gangrene of toe of right foot Assessment/Plan: Patient admitted from wound care for evaluation of right second digit gangrenous 2nd toe, right foot. POD#6 from 2nd toe amputation continue abx Flagyl and ceftriaxone, will contact ID for course length ID following and appreciate input -Blood cultures with CoNS -Wound redressed with wet to dry DSD -WBAT to the heel. -appreciate surgery's recommedations Code(s): I96 - GANGRENE, NOT ELSEWHERE CLASSIFIED (2) Prophylactic measure Assessment/Plan: FEN renal diet DVT Proph heparin sq bid early ambulation with PT Dispo maintain as inpatient full code discharge planning Code(s): Z29.9 - ENCOUNTER FOR PROPHYLACTIC MEASURES, UNSPECIFIED (3) Acquired absence of left leg below knee Assessment/Plan: s/p BKA Code(s): Z89.512 - ACQUIRED ABSENCE OF LEFT LEG BELOW KNEE (4) Anemia Assessment/Plan: daily CBC continue ferrous sulfate, epogen transfuse if hgb < 8.0 or symptomatic Code(s): D64.9 - ANEMIA, UNSPECIFIED Qualifiers: Vitamin B12 deficiency anemia type: other B12 deficiency (5) ESRD (end stage renal disease) Assessment/Plan: dialysis per renal. - dialysis tomorrow schedule at home M/W/F -nephrology following and appreciate recommendations -monitor kidney function Code(s): N18.6 - END STAGE RENAL DISEASE (6) Congestive heart failure Assessment/Plan: monitor of volume overload -HD today on lasix daily weights Code(s): I50.9 - HEART FAILURE, UNSPECIFIED (7) Hypertension Assessment/Plan: BP elevated on admission, now normotensive however BP labile -continue home medications and monitor BP. On Lisinopril 40mg, Imdur 60mg daily , Procardia xl 60mg qd, hydralazine 100mg tid, labetalol 300mg bid -appreciate cardiology recommendations Code(s): I10 - ESSENTIAL (PRIMARY) HYPERTENSION Qualifiers: Hypertension type: essential hypertension Qualified Code(s): I10 - Essential (primary) hypertension (8) AV fistula Code(s): I77.0 - ARTERIOVENOUS FISTULA, ACQUIRED (9) Type 2 diabetes mellitus with other skin ulcer Assessment/Plan: [facility] novolog sliding scale Code(s): E11.622 - TYPE 2 DIABETES MELLITUS WITH OTHER SKIN ULCER; L98.499 - NON -PRESSURE CHRONIC ULCER OF SKIN OF SITES W UNSP SEVERITY Visit type - Emergency Visit Emergency Visit: Yes ED Registration Date: 02/27/19 Care time: The patient presented to the Emergency Department on the above date and was hospitalized for further evaluation of their emergent condition. - New Patient This patient is new to me today: No - Critical Care Critical Care patient: No - Discharge Referral Referred to [facility] Med P.C.: No
[2019-03-09] MEDS ORDERED: SODIUM CHLORIDE 250 ML IV PRN (08:00)
[2019-03-09] MEDS ORDERED: EPOETIN ALFA 10,000 UNIT/1 ML VIAL IVPUSH ONE (08:00)
[2019-03-09 08:28] LABS: HEMATOCRIT 25.5 % (35.4-49); HEMOGLOBIN 8.8 GM/dL (11.7-16.9); MCH 34.6 pg (25.7-33.7); MCHC 34.3 g/dl (32.0-35.9); MEAN CELL VOLUME 100.8 fl (80-96); MEAN PLT VOLUME 8.6 fl (7.5-11.1); PLATELET COUNT 224 K/MM3 (134-434); RBC 2.53 M/mm3 (4.00-5.60); RDW 16.5 % (11.9-15.9); WHITE BLOOD COUNT 9.4 K/mm3 (4.0-10.0)
[2019-03-09 08:54] LABS: BLOOD UREA NITROGEN 34.6 mg/dL (7-18); CALCIUM 8.7 mg/dL (8.5-10.1); CREATININE 6.1 mg/dL (0.55-1.3); PHOSPHOROUS 3.6 mg/dL (2.5-4.9)
[2019-03-09] MEDS: ISOSORBIDE MONONITRATE 60 MG TAB.SR.24H (FP) PO SCH (10:35)
[2019-03-09] MEDS: FERROUS SO4 325 MG TABLET (FP) PO SCH (10:35)
[2019-03-09] MEDS: LABETALOL HCL 100 MG TABLET (FP) PO SCH (10:35)
[2019-03-09] MEDS: SPIRONOLACTONE 25 MG TABLET (FP) PO SCH (10:35)
[2019-03-09] MEDS: VITAMIN B COMP W-C 1 EA TABLET PO SCH (10:35)
[2019-03-09] MEDS: FUROSEMIDE 40 MG TABLET (FP) PO SCH (10:36)
[2019-03-09] MEDS: HEPARIN NA (PORCINE) 5,000 UNITS/ML 1ML VIAL SQ SCH (10:36)
[2019-03-09] MEDS: LISINOPRIL 20 MG TABLET (FP) PO SCH (10:36)
[2019-03-09] MEDS: NIFEdipine E.R 60 MG TABLET (UD) PO SCH (10:37)
[2019-03-09] MEDS: CALCITRIOL 0.25 MCG CAPSULE (FP) PO SCH (10:37)
[2019-03-09] MEDS: SENNOSIDES 8.6MG TABLET (FP) PO SCH (10:46)
[2019-03-09] MEDS: ACETAMINOPHEN 325 MG TABLET (FP) PO PRN (10:52)
--- NOTE | 2019-03-09 13:57 | PN ---
Progress Note, Physician History of Present Illness: Pt seen and examined at bedside. He is awake and alert. He tolerated HD today. - Current Medication List Current Medications: Active Medications Acetaminophen (Tylenol -) 650 mg PO Q4H PRN PRN Reason: PAIN LEVEL 1-5 Last Admin: 03/09/19 10:52 Dose: 650 mg Atorvastatin Calcium (Lipitor -) 80 mg PO HS [facility] Last Admin: 03/08/19 22:16 Dose: 80 mg Calcitriol (Rocaltrol -) 0.25 mcg PO DAILY [facility] Last Admin: 03/09/19 10:37 Dose: Not Given Docusate Sodium (Colace -) 100 mg PO TID [facility] Last Admin: 03/09/19 05:54 Dose: Not Given Ferrous Sulfate (Feosol -) 325 mg PO BID [facility] Last Admin: 03/09/19 10:35 Dose: Not Given Furosemide (Lasix -) 40 mg PO DAILY [facility] Last Admin: 03/09/19 10:36 Dose: 40 mg Heparin Sodium (Porcine) (Heparin -) 5,000 unit SQ BID [facility] Last Admin: 03/09/19 10:36 Dose: 5,000 unit Hydralazine HCl (Apresoline -) 100 mg PO TID [facility] Last Admin: 03/09/19 05:54 Dose: 100 mg Ceftriaxone Sodium 1 gm/ (Dextrose) 50 mls @ 100 mls/hr IVPB Q24H [facility] Last Admin: 03/08/19 17:04 Dose: 100 mls/hr Metronidazole (Flagyl 500mg Premixed Ivpb -) 500 mg in 100 mls @ 100 mls/hr IVPB Q8H [facility] Last Admin: 03/09/19 10:37 Dose: 100 mls/hr Insulin Aspart (Novolog Vial Sliding Scale -) 1 vial SQ ACHS [facility]; Protocol Last Admin: 03/09/19 11:42 Dose: Not Given Isosorbide Mononitrate (Imdur -) 60 mg PO DAILY [facility] Last Admin: 03/09/19 10:35 Dose: 60 mg Labetalol HCl (Normodyne -) 300 mg PO BID [facility] Last Admin: 03/09/19 10:35 Dose: 300 mg Lisinopril (Prinivil) 40 mg PO DAILY [facility] Last Admin: 03/09/19 10:36 Dose: 40 mg Multivit/Ca Carb/B Cmplx/FA/Prenat (Nephro-Brynn -) 1 tablet PO DAILY [facility] Last Admin: 03/09/19 10:35 Dose: Not Given Nifedipine (Procardia Xl -) 60 mg PO BID [facility] Last Admin: 03/09/19 10:37 Dose: 60 mg Ondansetron HCl (Zofran Injection) 4 mg IVPUSH Q6H PRN PRN Reason: NAUSEA AND/OR VOMITING Senna (Senna -) 1 tab PO BID [facility] Last Admin: 03/09/19 10:46 Dose: Not Given Spironolactone (Aldactone -) 50 mg PO DAILY [facility] Last Admin: 03/09/19 10:35 Dose: 50 mg - Objective Vital Signs: Vital Signs Temperature 98.0 F 03/09/19 10:00 Pulse Rate 60 03/09/19 10:10 Respiratory Rate 18 03/09/19 10:10 Blood Pressure 143/65 03/09/19 10:10 O2 Sat by Pulse Oximetry (%) 94 L 03/09/19 10:00 Constitutional: Yes: Calm Eyes: Yes: Conjunctiva Clear HENT: Yes: Atraumatic Neck: Yes: Supple Cardiovascular: Yes: S1, S2 Respiratory: Yes: CTA Bilaterally Gastrointestinal: Yes: Normal Bowel Sounds, Soft Genitourinary: Yes: WNL Musculoskeletal: Yes: Other (right foot dressing in place, left bka) Edema: No Neurological: Yes: Oriented Psychiatric: Yes: Oriented Labs: CBC, BMP 03/09/19 07:00 03/09/19 07:00 INR, PTT INR 1.18 (0.83-1.09) H 03/03/19 06:30 Problem List - Problems (1) Gangrene of toe of right foot Code(s): I96 - GANGRENE, NOT ELSEWHERE CLASSIFIED (2) ESRD (end stage renal disease) Code(s): N18.6 - END STAGE RENAL DISEASE Assessment/Plan Current Medications Generic Name Dose Route Start Last Admin Trade Name Freq PRN Reason Stop Dose Admin Acetaminophen 650 mg 03/03/19 17:26 03/09/19 10:52 Tylenol - PO 650 mg Q4H PRN Administration PAIN LEVEL 1-5 Atorvastatin Calcium 80 mg 03/03/19 22:00 03/08/19 22:16 Lipitor - PO 80 mg HS [facility] Administration Calcitriol 0.25 mcg 03/04/19 10:00 03/09/19 10:37 Rocaltrol - PO Not Given DAILY [facility] Docusate Sodium 100 mg 03/03/19 22:00 03/09/19 05:54 Colace - PO Not Given TID [facility] Ferrous Sulfate 325 mg 03/03/19 22:00 03/09/19 10:35 Feosol - PO Not Given BID [facility] Furosemide 40 mg 03/04/19 10:00 03/09/19 10:36 Lasix - PO 40 mg DAILY [facility] Administration Heparin Sodium (Porcine) 5,000 unit 03/03/19 22:00 03/09/19 10:36 Heparin - SQ 5,000 unit BID [facility] Administration Hydralazine HCl 100 mg 03/03/19 22:00 03/09/19 05:54 Apresoline - PO 100 mg TID [facility] Administration Ceftriaxone Sodium 1 gm/ 50 mls @ 100 mls/hr 03/04/19 16:15 03/08/19 17:04 Dextrose IVPB 100 mls/hr Q24H [facility] Administration Metronidazole 500 mg in 100 mls @ 100 mls/hr 03/04/19 00:15 03/09/19 10:37 Flagyl 500mg Premixed Ivpb - IVPB 100 mls/hr Q8H [facility] Administration Insulin Aspart 1 vial 03/03/19 22:00 03/09/19 11:42 Novolog Vial Sliding Scale - SQ Not Given ACHS [facility] Protocol Isosorbide Mononitrate 60 mg 03/04/19 10:00 03/09/19 10:35 Imdur - PO 60 mg DAILY [facility] Administration Labetalol HCl 300 mg 03/03/19 22:00 03/09/19 10:35 Normodyne - PO 300 mg BID [facility] Administration Lisinopril 40 mg 03/04/19 10:00 03/09/19 10:36 Prinivil PO 40 mg DAILY [facility] Administration Multivit/Ca Carb/B Cmplx/FA/Prenat 1 tablet 03/06/19 16:00 03/09/19 10:35 Nephro-Brynn - PO Not Given DAILY [facility] Nifedipine 60 mg 03/03/19 22:00 03/09/19 10:37 Procardia Xl - PO 60 mg BID [facility] Administration Ondansetron HCl 4 mg 03/03/19 17:26 Zofran Injection IVPUSH Q6H PRN NAUSEA AND/OR VOMITING Senna 1 tab 03/03/19 22:00 03/09/19 10:46 Senna - PO Not Given BID [facility] Spironolactone 50 mg 03/04/19 10:00 03/09/19 10:35 Aldactone - PO 50 mg DAILY [facility] Administration Impression 1. ESRD on HD 2. anemia 3. DM 4. HTN 5. toe infection/gangrene 6. PVD 7. cavernous malformation Plan - HD today - cont wound care - epogen for anemia - bp stable - renal diet - pt is a MWF HD
[2019-03-09] MEDS ORDERED: PT OWN MED DRAWER 7, Y5N ONE (14:22)
[2019-03-09 15:11] VITALS: BP 115/58; PULSE 55
[2019-03-09 15:17] VITALS: TEMP 98.6
--- NOTE | 2019-03-09 15:21 | DS ---
Physical Exam: SUBJECTIVE: Patient seen and examined OBJECTIVE: Vital Signs Period Temp Pulse Resp BP Sys/Cole Pulse Ox Last 24 Hr 97.6 F-98.4 F 54-63 18-19 101-143/52-81 94-94 PHYSICAL EXAM Constitutional: Yes: Well Nourished, No Distress, Calm Eyes: Yes: WNL, Conjunctiva Clear, EOM Intact HENT: Yes: WNL, Atraumatic, Normocephalic Neck: Yes: WNL, Supple, Trachea Midline Cardiovascular: Yes: WNL, Regular Rate and Rhythm Respiratory: Yes: WNL, Regular, CTA Bilaterally Gastrointestinal: Yes: WNL, Normal Bowel Sounds, Soft ...Rectal Exam: Yes: Deferred Breast(s): Yes: WNL Musculoskeletal: Yes: WNL Extremities: Yes: Amputation (R BKA, 2nd toe amputated, 3rd toe dusky) Edema: No Peripheral Pulses WNL: No Peripheral Pulses: Left Doralis Pedis: 0 (BKA), Right Dorsalis Pedis: 0, Left Femoral: 3+, Right Femoral: 3+ Integumentary: Yes: Other (2nd toe amputated , 3rd toe dusky R foot, as well as mildly along dorsum of the foot.) Wound/Incision: Yes: Clean/Dry, Sutures Intact, Dressing Dry and Intact Neurological: Yes: WNL, Alert, Oriented ...Motor Strength: WNL Psychiatric: Yes: WNL, Alert, Oriented Labs: CBC, BMP 03/06/19 10:00 03/06/19 10:00 INR, PTT INR 1.18 (0.83-1.09) H 03/03/19 06:30 LABS Laboratory Results - last 24 hr 03/08/19 03/08/19 03/09/19 17:02 22:13 05:48 WBC RBC Hgb Hct MCV MCH MCHC RDW Plt Count MPV Sodium Potassium Chloride Carbon Dioxide Anion Gap BUN Creatinine Est GFR (CKD-EPI)AfAm Est GFR (CKD-EPI)NonAf POC Glucometer 134 119 92 Random Glucose Calcium Phosphorus 03/09/19 03/09/19 03/09/19 07:00 07:00 11:39 WBC 9.4 RBC 2.53 L Hgb 8.8 L Hct 25.5 L MCV 100.8 H MCH 34.6 H MCHC 34.3 RDW 16.5 H Plt Count 224 MPV 8.6 Sodium 138 Potassium 4.0 Chloride 100 Carbon Dioxide 29 Anion Gap 8 BUN 34.6 H Creatinine 6.1 H Est GFR (CKD-EPI)AfAm 9.82 Est GFR (CKD-EPI)NonAf 8.47 POC Glucometer 148 Random Glucose 100 Calcium 8.7 Phosphorus 3.6 HOSPITAL COURSE: Date of Admission:02/27/19 Problem List - Problems (1) Gangrene of toe of right foot Assessment/Plan: Patient admitted from wound care for evaluation of right second digit gangrenous 2nd toe, right foot. POD#6 from 2nd toe amputation Flagyl and ceftriaxone continue for 11 days. No osyetmylelitis see in margins of specimen that was amuptated. 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 On Lisinopril 40mg, Imdur 60mg daily , Procardia xl 60mg qd, hydralazine 100mg tid, labetalol 300mg bid -appreciate cardiology recommendations (8) AV fistula Code(s): I77.0 - ARTERIOVENOUS FISTULA, ACQUIRED (9) Type 2 diabetes mellitus with other skin ulcer Assessment/Plan: [facility] novolog sliding scale Code(s): E11.622 - TYPE 2 DIABETES MELLITUS WITH OTHER SKIN ULCER; L98.499 - NON -PRESSURE CHRONIC ULCER OF SKIN OF SITES W UNSP SEVERITY Date of Discharge: 03/09/19 Minutes to complete discharge: 30 Discharge Summary Reason For Visit: DIABETIC FOOT INFECTION Current Active Problems Gangrene of toe of right foot (Acute) Hypertensive urgency (Acute) Prophylactic measure (Acute) Sepsis (Acute) - Instructions Diet, Activity, Other Instructions: Resume renal diet-home diet. Resume dialysis sat/sat/sat at [facility]. No antiobiotics nedded. Follow with Dr Pace next Saturday in the wound care center - Home Medications Comprehensive Discharge Medication List: Ambulatory Orders Calcitriol [Calcitriol -] 0.25 mcg PO DAILY #30 capsule 05/27/18 Furosemide [Lasix -] 40 mg PO DAILY #30 tablet 05/27/18 Ferrous Sulfate [Feosol] 325 mg PO BID #60 ud 07/09/18 Sennosides [Senna -] 1 tab PO BID #60 tablet 07/09/18 Atorvastatin Ca [Lipitor] 80 mg PO HS #30 tablet 07/26/18 Docusate Sodium [Colace -] 100 mg PO TID capsule 07/26/18 Hydralazine HCl 100 mg PO TID #90 tablet 07/26/18 Isosorbide Mononitrate [Imdur -] 2 tab PO DAILY 30 Days #60 tab.sr.24h 07/26/18 Labetalol HCl [Normodyne -] 300 mg PO BID #180 tablet 07/26/18 Lisinopril [Prinivil] 40 mg PO DAILY #60 tablet 07/26/18 Nifedipine ER [Procardia XL -] 60 mg PO BID #60 tab.er.24 07/26/18 Sevelamer HCl [Renagel] 800 mg PO TID 30 Days #90 tablet 07/26/18 Spironolactone [Aldactone -] 2 tab PO DAILY 30 Days #60 tablet 07/26/18 Acetaminophen [Tylenol .Regular Strength -] 650 mg PO Q4H PRN tablet 03/09/19 Atorvastatin Ca [Lipitor] 80 mg PO HS tablet 03/09/19 Insulin Sliding Scale [Novolog Vial Sliding Scale -] 1 vial SQ ACHS units 03/09 Isosorbide Mononitrate [Imdur -] 60 mg PO DAILY tab.sr.24h 03/09/19 Labetalol HCl [Normodyne -] 300 mg PO BID tablet 03/09/19 Vitamin B Comp W-C [Nephro-Brynn -] 1 tablet PO DAILY tablet 03/09/19 Problem List - Problems (1) Gangrene of toe of right foot Code(s): I96 - GANGRENE, NOT ELSEWHERE CLASSIFIED (2) Prophylactic measure Code(s): Z29.9 - ENCOUNTER FOR PROPHYLACTIC MEASURES, UNSPECIFIED (3) Acquired absence of left leg below knee Code(s): Z89.512 - ACQUIRED ABSENCE OF LEFT LEG BELOW KNEE (4) Anemia Code(s): D64.9 - ANEMIA, UNSPECIFIED Qualifiers: Vitamin B12 deficiency anemia type: other B12 deficiency (5) ESRD (end stage renal disease) Code(s): N18.6 - END STAGE RENAL DISEASE (6) Congestive heart failure Code(s): I50.9 - HEART FAILURE, UNSPECIFIED (7) Hypertension Code(s): I10 - ESSENTIAL (PRIMARY) HYPERTENSION Qualifiers: Hypertension type: essential hypertension Qualified Code(s): I10 - Essential (primary) hypertension (8) AV fistula Code(s): I77.0 - ARTERIOVENOUS FISTULA, ACQUIRED (9) Type 2 diabetes mellitus with other skin ulcer Code(s): E11.622 - TYPE 2 DIABETES MELLITUS WITH OTHER SKIN ULCER; L98.499 - NON -PRESSURE CHRONIC ULCER OF SKIN OF SITES W UNSP SEVERITY This patient is new to me today: No Emergency Visit: Yes ED Registration Date: 02/27/19 Care time: The patient presented to the Emergency Department on the above date and was hospitalized for further evaluation of their emergent condition. Critical Care patient: No - Discharge Referral Referred to [facility] Med P.C.: No
== END 2019-03-09 16:53 | disposition home or self-care (01) | DRG 314 ==
LOC: JER 11:38 → J4W 17:41
PROVIDERS: ADMIT Internal Medicine; ATTEND Nurse Practitioner Acute Care
PROC: 0Y6R0Z0 Detachment at Right 2nd Toe, Complete, Open Approach (ICD-10-PCS; principal; 2019-03-03 16:00)
PROC: 5A1D70Z Performance of Urinary Filtration, Intermittent, Less than 6 Hours Per Day (ICD-10-PCS; 2019-03-04)
PROC: 5A1D70Z Performance of Urinary Filtration, Intermittent, Less than 6 Hours Per Day (ICD-10-PCS; 2019-03-06)
PROC: 5A1D70Z Performance of Urinary Filtration, Intermittent, Less than 6 Hours Per Day (ICD-10-PCS; 2019-03-09)
DX: E11.52 Type 2 diabetes mellitus with diabetic peripheral angiopathy with gangrene (principal); I25.10 Atherosclerotic heart disease of native coronary artery without angina pectoris; L03.115 Cellulitis of right lower limb; I25.2 Old myocardial infarction; D64.9 Anemia, unspecified; L29.9 Pruritus, unspecified; I16.0 Hypertensive urgency; E78.5 Hyperlipidemia, unspecified; T36.0X5A Adverse effect of penicillins, initial encounter; E53.8 Deficiency of other specified B group vitamins; E11.621 Type 2 diabetes mellitus with foot ulcer; L97.518 Non-pressure chronic ulcer of other part of right foot with other specified severity; I13.2 Hypertensive heart and chronic kidney disease with heart failure and with stage 5 chronic kidney disease, or end stage renal disease; E11.22 Type 2 diabetes mellitus with diabetic chronic kidney disease; I50.32 Chronic diastolic (congestive) heart failure; N18.6 End stage renal disease; Z99.2 Dependence on renal dialysis; Z89.512 Acquired absence of left leg below knee; Z88.0 Allergy status to penicillin
CPT/HCPCS: 36415; 73630-TC-RT-FY; 75635-TC; 80048; 80053; 80061; 82962; 83036; 83605; 83721; 83735; 84100; 85025; 85027; 85610; 85651; 86704; 86706; 86803; 86850; 86900; 86901; 87040; 87070; 87077; 87205; 87340; 88305-TC; 88311-TC; 93005; 93010; 93306-TC; 94760; 97116-GP; 97161-GP; 99283-25; G0463-25; G0480; J0131; J0885; J1644; J7030

== ENCOUNTER 2019-03-30 11:37 | Inpatient (IN) | payer OTHER ==
--- NOTE | 2019-03-30 12:19 | PDOC ---
Rapid Medical Evaluation Chief Complaint: Wound Time Seen by Provider: 03/30/19 12:17 Medical Evaluation: Allergies Allergy/AdvReac Type Severity Reaction Status Date / Time Penicillins Allergy Verified 03/30/19 12:14 piperacillin [From Zosyn] Allergy Verified 03/30/19 12:14 tazobactam [From Zosyn] Allergy Verified 03/30/19 12:14 Vital Signs Temp Pulse Resp BP Pulse Ox 98.4 F 66 19 164/66 97 03/30/19 12:15 03/30/19 12:15 03/30/19 12:15 03/30/19 12:15 03/30/19 12:15 03/30/19 12:17 I have performed a brief in-person evaluation of this patient. The patient presents with a chief complaint of: sent in by Cassi and Dr. Paiz for admission for diabetes right foot and toes amputation wound Pertinent physical exam findings: A&O x 3 I have ordered the following: cbc, cmp, pt/ptt, t&s The patient will proceed to the ED for further evaluation Discharge Disposition - Diagnosis Diabetic foot infection, Gangrene - Discharge Dispostion Condition at time of disposition: Stable - Referrals - Patient Instructions - Post Discharge Activity
--- NOTE | 2019-03-30 13:22 | PDOC ---
History of Present Illness - General Chief Complaint: Wound Stated Complaint: ADMIT / RT FOOT AMPUTATION Time Seen by Provider: 03/30/19 12:17 - History of Present Illness Initial Comments: 03/30/19 15:46 The patient is a 69 year old male with a history of HTN, HLD, DM, ESRD on dialysis MWF s/p left BKA who presents for admission for right toe amputation. The patient is accompanied by family who assist in providing the history. They report that the patient has been following on an outpatient basis for gangrenous right toes over the past few weeks. The patient was sent in for admission for partial toe amputations of the gangrenous toes. The patient otherwise denies fevers, chills, SOB, chest pain, nausea, vomiting, abdominal pain, or changes with urination or bowel movements. Past History - Past Medical History Allergies/Adverse Reactions: Allergies Allergy/AdvReac Type Severity Reaction Status Date / Time Penicillins Allergy Verified 03/30/19 12:14 piperacillin [From Zosyn] Allergy Verified 03/30/19 12:14 tazobactam [From Zosyn] Allergy Verified 03/30/19 12:14 Home Medications: Ambulatory Orders Calcitriol [Calcitriol -] 0.25 mcg PO DAILY #30 capsule 05/27/18 Furosemide [Lasix -] 40 mg PO DAILY #30 tablet 05/27/18 Ferrous Sulfate [Feosol] 325 mg PO BID #60 ud 07/09/18 Sennosides [Senna -] 1 tab PO BID #60 tablet 07/09/18 Atorvastatin Ca [Lipitor] 80 mg PO HS #30 tablet 07/26/18 Docusate Sodium [Colace -] 100 mg PO TID capsule 07/26/18 Hydralazine HCl 100 mg PO TID #90 tablet 07/26/18 Labetalol HCl [Normodyne -] 300 mg PO BID #180 tablet 07/26/18 Lisinopril [Prinivil] 40 mg PO DAILY #60 tablet 07/26/18 Nifedipine ER [Procardia XL -] 60 mg PO BID #60 tab.er.24 07/26/18 Sevelamer HCl [Renagel] 800 mg PO TID 30 Days #90 tablet 07/26/18 Spironolactone [Aldactone -] 2 tab PO DAILY 30 Days #60 tablet 07/26/18 Acetaminophen [Tylenol .Regular Strength -] 650 mg PO Q4H PRN tablet 03/09/19 Insulin Sliding Scale [Novolog Vial Sliding Scale -] 1 vial SQ ACHS units 03/09 Isosorbide Mononitrate [Imdur -] 60 mg PO DAILY tab.sr.24h 03/09/19 Vitamin B Comp W-C [Nephro-Brynn -] 1 tablet PO DAILY tablet 03/09/19 Lisinopril 20 mg PO BID 03/30/19 Metoprolol Succinate 50 mg PO DAILY 03/30/19 Anemia: No Asthma: No Cancer: No Cardiac Disorders: No CVA: No COPD: No CHF: No Dementia: No Diabetes: Yes Dialysis: Yes (M-W-F) GI Disorders: No Disorders: Yes (Enlarged prostate) HTN: Yes Hypercholesterolemia: Yes Liver Disease: No Seizures: No Thyroid Disease: No - Surgical History Abdominal Surgery: No Appendectomy: Yes Cardiac Surgery: No Cholecystectomy: No Lung Surgery: No Neurologic Surgery: No Orthopedic Surgery: No - Family Disease History Family Disease History: Diabetes: Father - Immunization History Immunization Up to Date: Yes - Suicide/Smoking/Psychosocial Hx Smoking History: Unknown if ever smoked Have you smoked in the past 12 months: No If you are a former smoker, when did you quit?: many years ago Hx Alcohol Use: No Drug/Substance Use Hx: No Substance Use Type: None Hx Substance Use Treatment: No Review of Systems - Review of Systems Comments:: 03/30/19 15:57 Constitutional: No fevers, chills, fatigue, malaise HEENT: No Rhinorrhea, nasal congestion, visual changes Cardiovascular: No chest pain, syncope, palpitations, lightheadedness Respiratory: No Cough, SOB, Hemoptysis, Gastrointestinal: No Abdominal pain, Nausea, Vomiting, Constipation, Diarrhea, Melena Genitourinary: No Dysuria, Frequency, Urgency, Hesitancy, Hematuria, Flank pain Musculoskeletal: Gangrenous right toes. No Myalgia, arthralgia Skin: No rashes, itching, bruising, pallor Neurologic: No Headache, Dizziness, Numbness, Weakness, or Tingling Psychiatric: No Hallucinations. No SI or HI *Physical Exam - Vital Signs Last Vital Signs Temp Pulse Resp BP Pulse Ox 98.4 F 66 19 164/66 97 03/30/19 12:15 03/30/19 12:15 03/30/19 12:15 03/30/19 12:15 03/30/19 12:15 - Physical Exam Comments: 03/30/19 15:57 General Appearance: Nourished. No Apparent Distress HEENT: No Pharyngeal Erythema, Tonsillar Exudate, Tonsillar Erythema Neck: No Cervical Lymphadenopathy Respiratory/Chest: Lungs Clear, Normal Breath Sounds. No Crackles, Rales, Rhonchi, Wheezing Cardiovascular: Regular Rhythm, Regular Rate. No Murmur, Gallops, Rubs Gastrointestinal/Abdominal: Normal Bowel Sounds, Soft. No Guarding, Rebound, Tenderness Musculoskeletal: No CVA Tenderness Extremity: BKA of the left leg. Dry Gangrene of the right toes. No surrounding erythema or warmth. Normal Capillary Refill Integumentary: Normal Color, Dry, Warm Neurologic: Fully Oriented, Alert, Normal Mood/Affect, Normal Response, ED Treatment Course - LABORATORY CBC & Chemistry Diagram: 03/31/19 07:13 03/31/19 07:13 Medical Decision Making - Medical Decision Making 03/30/19 15:59 The patient is a 69 year old male with a history of HTN, HLD, DM, ESRD on dialysis MWF s/p left BKA who presents for admission for right toe amputation. Given the patient's history and physical exam, we will obtain a cbc, cmp, coags , type and screen, plain films, and ekg to evaluate further. We will continue to monitor and reassess while here in the ED. 03/30/19 18:12 CBC, cmp, coags are unremarkable. The patient was signed out to the night team pending admission. *DC/Admit/Observation/Transfer Diagnosis at time of Disposition: Gangrene, Gangrene of toe of right foot - Discharge Dispostion Condition at time of disposition: Stable Decision to Admit order: Yes - Referrals - Patient Instructions - Post Discharge Activity
--- NOTE | 2019-03-30 15:24 | PDOC ---
Documentation entered by Sara Mcmahon SCRIBE, acting as scribe for Martin Bassett MD. Martin Bassett MD: This documentation has been prepared by the gloriaibe, Sara Mcmahon SCRIBE, under my direction and personally reviewed by me in its entirety. I confirm that the documentation accurately reflects all work, treatment, procedures, and medical decision making performed by me. Attending Attestation - Resident Resident Name: Aram Ho - ED Attending Attestation I have performed the following: I have examined & evaluated the patient, The case was reviewed & discussed with the resident, I agree w/resident's findings & plan - HPI HPI: 03/30/19 15:22 69y/o M sent by vascular and podiatry for R metatarsal amputation 2/2 progressive gangrene. - Physicial Exam PE: 03/30/19 15:23 vss L BKA R foot dry gangrene as noted - Medical Decision Making 03/30/19 15:23 69-year-old male with peripheral vascular disease and history of left BKA presents with right foot gangrene for right metatarsal amputation. Preoperative labs Right foot x-ray Admission
[2019-03-30 16:50] LABS: BASO % 0.5 % (0-2.0); HEMATOCRIT 34.6 % (35.4-49); HEMOGLOBIN 11.8 GM/dL (11.7-16.9); LYMPH % 11.3 % (8-40); MCH 35.4 pg (25.7-33.7); MEAN CELL VOLUME 104.2 fl (80-96); MEAN PLT VOLUME 7.4 fl (7.5-11.1); MONO % 12.3 % (3.8-10.2); NEUT % 73.9 % (42.8-82.8); PLATELET COUNT 312 K/MM3 (134-434); RBC 3.33 M/mm3 (4.00-5.60); RDW 15.8 % (11.9-15.9); WHITE BLOOD COUNT 7.5 K/mm3 (4.0-10.0)
[2019-03-30 17:05] LABS: INR 1.06 (0.83-1.09); PROTHROMBIN TIME (PATIENT) 12.5 SEC (9.7-13.0)
[2019-03-30 17:08] LABS: ACTIVATED PTT 42.7 SECONDS (25.2-36.5)
[2019-03-30 17:27] LABS: ALBUMIN 3.2 g/dl (3.4-5.0); BILIRUBIN,TOTAL 0.7 mg/dL (0.2-1); BLOOD UREA NITROGEN 22.9 mg/dL (7-18); CALCIUM 9.5 mg/dL (8.5-10.1); CREATININE 4.2 mg/dL (0.55-1.3)
--- NOTE | 2019-03-30 20:28 | PN ---
Teaching Attending Note Name of Resident: Bruna Dobbins ATTENDING PHYSICIAN STATEMENT I saw and evaluated the patient. I reviewed the resident's note and discussed the case with the resident. I agree with the resident's findings and plan as documented. Seen and examined; please see resident note for further historical information. Presents for R-TMA 2/2 progressive gangrene. He is afebrile and hemodynamically stable; ESR and CRP pending. As planned for sgy no need to obtain further imaging per medicine; will defer to podiatry. Thank you, Dr. Ye, for allowing [facility] to participate in the ongoing care of your patient. VS, labs, imaging reviewed NAD, AAO, resting in bed NC AT EOMI PERRLA RRR s1/2 no mgr Lungs CTAB, w/ sym exp NT ND +BS CN2-12 wnl, no fnd Normal mood, appropriate affect ASSESSMENT AND PLAN: Patient presents with gangrene of the foot with planned R-partial foot amputation with his boiler house mechanic; he is s/p multiple BKA on L-side. # Gangrene of R-foot with planned TMA # PAD/PVD # ESRD on HD # Hx NV (no cath, MIBI 05/2018: small area of mildly intense periinarct inferoapical ischemia) # Hx HTN # Hx HLD # Former smoker # Hx Cdiff Patient presents for scheduled sgy; placing on empiric abx and consulting his boiler house mechanic, ID, manager universal, and vascular surgeon in preparation. Checking ESR /CRP. NPO at MI. Residents called pharmacy and confirmed current meds he was picking up; he is not on any known AC and wasn't on ASA or Plavix on last DC. Hold Lasix preop and give SSI gently to avoid hypoglycemia and change fsg to q4h while NPO. Elevated RCRI score; consider CV clearance for preop. Full Code
[2019-03-30] MEDS ORDERED: CEFTRIAXONE 1,000 MG in DEXTROSE 5%-WATER - 50 ML IVPB SCH ×2 (20:30→21:12)
--- NOTE | 2019-03-30 21:14 | HP ---
CHIEF COMPLAINT: R 3rd toe dry gangrene PCP: HISTORY OF PRESENT ILLNESS: Mr. Landers is a 69yo male with DM, PVD, HTN, HLD, ESRD, and diastolic CHF who presents for R 3rd toe amputation. His religious activities director is Dr. Garcia. He had a R 2nd toe amputation on 03/03/19 with gangrene present on the 3rd toe at that time. He has been going to wound care and bandaging has been changed regularly. He is fatigued today, but he denies any fever, chills, nausea, vomiting, chest pain, or SOB. Pt was on ceftriaxone and flagyl for amputation on 03/03/19 for 2 weeks. ER course was notable for: (1) foot x-ray order (2) EKG PAST MEDICAL HISTORY: 1. DM 2. PVD 3. HTN 4. HLD 5. ESRD dialysis MWF 6. diastolic CHF PAST SURGICAL HISTORY: 1. R 2nd toe amputation 03/03/19 2. 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 appendectomy Social History: Smoking: former Alcohol: denies Drugs: denies Family History: father- DM Allergies Penicillins Allergy (Verified 03/30/19 12:14) piperacillin [From Zosyn] Allergy (Verified 03/30/19 12:14) tazobactam [From Zosyn] Allergy (Verified 03/30/19 12:14) HOME MEDICATIONS: Home Medications Medication Instructions Recorded Calcitriol [Calcitriol -] 0.25 mcg PO DAILY #30 capsule 05/27/18 Furosemide [Lasix -] 40 mg PO DAILY #30 tablet 05/27/18 Ferrous Sulfate [Feosol] 325 mg PO BID #60 ud 07/09/18 Sennosides [Senna -] 1 tab PO BID #60 tablet 07/09/18 Atorvastatin Ca [Lipitor] 80 mg PO HS #30 tablet 07/26/18 Docusate Sodium [Colace -] 100 mg PO TID capsule 07/26/18 Hydralazine HCl 100 mg PO TID #90 tablet 07/26/18 Labetalol HCl [Normodyne -] 300 mg PO BID #180 tablet 07/26/18 Lisinopril [Prinivil] 40 mg PO DAILY #60 tablet 07/26/18 Nifedipine ER [Procardia XL -] 60 mg PO BID #60 tab.er.24 07/26/18 Sevelamer HCl [Renagel] 800 mg PO TID 30 Days #90 tablet 07/26/18 Spironolactone [Aldactone -] 2 tab PO DAILY 30 Days #60 tablet 07/26/18 Acetaminophen [Tylenol .Regular 650 mg PO Q4H PRN tablet 03/09/19 Strength -] Insulin Sliding Scale [Novolog 1 vial SQ ACHS units 03/09/19 Vial Sliding Scale -] Isosorbide Mononitrate [Imdur -] 60 mg PO DAILY tab.sr.24h 03/09/19 Vitamin B Comp W-C [Nephro-Brynn -] 1 tablet PO DAILY tablet 03/09/19 Lisinopril 20 mg PO BID 03/30/19 Metoprolol Succinate 50 mg PO DAILY 03/30/19 REVIEW OF SYSTEMS CONSTITUTIONAL: Present: fatigue Absent: fever, chills, diaphoresis, loss of appetite, weight change HEENT: Absent: rhinorrhea, nasal congestion CARDIOVASCULAR: Absent: chest pain palpitations, lightheadedness, peripheral edema RESPIRATORY: Absent: cough, shortness of breath, dyspnea with exertion, wheezing GASTROINTESTINAL: Absent: abdominal pain, nausea, vomiting, diarrhea GENITOURINARY: Absent: dysuria MUSCULOSKELETAL: Absent: back pain, neck pain, myalgias SKIN: Present: ulceration Absent: rash, itching, pallor HEMATOLOGIC/IMMUNOLOGIC: Absent: easy bleeding, easy bruising, lymphadenopathy, frequent infections ENDOCRINE: Absent: unexplained weight gain, unexplained weight loss, heat intolerance, cold intolerance NEUROLOGIC: Absent: headache, focal weakness or paresthesias, dizziness, unsteady gait, seizure, mental status changes, bladder or bowel incontinence PSYCHIATRIC: Absent: anxiety, depression, suicidal or homicidal ideation, hallucinations. PHYSICAL EXAMINATION Vital Signs - 24 hr 03/30/19 12:15 Temperature 98.4 F Pulse Rate 66 Respiratory 19 Rate Blood Pressure 164/66 O2 Sat by Pulse 97 Oximetry (%) GENERAL: Awake, alert, and fully oriented, in no acute distress. Mild fatigue. In wheelchair. HEAD: Normal with no signs of trauma. EYES: Pupils equal, round and reactive to light, extraocular movements intact, sclera anicteric, conjunctiva clear. No lid lag. EARS, NOSE, THROAT: Ears normal, nares patent. Moist mucous membranes. NECK: Normal range of motion, supple without lymphadenopathy, JVD, or masses. LUNGS: Breath sounds equal, clear to auscultation bilaterally. No wheezes, and no crackles. No accessory muscle use. HEART: Regular rate and rhythm, systolic murmur, rub or gallop. ABDOMEN: Soft, nontender, not distended, normoactive bowel sounds, no guarding, no rebound, no masses. MUSCULOSKELETAL: Normal range of motion at all joints. No bony deformities or tenderness. No CVA tenderness. UPPER EXTREMITIES: 2+ pulses, warm, well-perfused. No cyanosis. No clubbing. No peripheral edema. LOWER EXTREMITIES: L BKA, above knee warm, well-perfused. R LE warm, well- perfused, foot bandaged with dry gangrene 3rd toe. NEUROLOGICAL: Cranial nerves II-XII intact. Normal speech. PSYCHIATRIC: Cooperative. Good eye contact. Appropriate mood and affect. SKIN: Warm, dry, normal turgor, normal capillary refill. Laboratory Results - last 24 hr 03/30/19 03/30/19 03/30/19 15:00 16:22 16:22 WBC 7.5 RBC 3.33 L Hgb 11.8 Hct 34.6 L D MCV 104.2 H MCH 35.4 H MCHC 34.0 RDW 15.8 Plt Count 312 D MPV 7.4 L D Absolute Neuts (auto) 5.5 Neutrophils % 73.9 Lymphocytes % 11.3 Monocytes % 12.3 H Eosinophils % 2.0 Basophils % 0.5 Nucleated RBC % 0 PT with INR 12.50 INR 1.06 PTT (Actin FS) 42.7 H Sodium 136 Potassium 4.0 Chloride 99 Carbon Dioxide 31 Anion Gap 6 L BUN 22.9 H Creatinine 4.2 H Est GFR (CKD-EPI)AfAm 15.41 Est GFR (CKD-EPI)NonAf 13.30 Random Glucose 121 H Calcium 9.5 Total Bilirubin 0.7 AST 25 ALT 22 Alkaline Phosphatase 240 H Total Protein 8.0 Albumin 3.2 L Blood Type Antibody Screen 03/30/19 16:22 WBC RBC Hgb Hct MCV MCH MCHC RDW Plt Count MPV Absolute Neuts (auto) Neutrophils % Lymphocytes % Monocytes % Eosinophils % Basophils % Nucleated RBC % PT with INR INR PTT (Actin FS) Sodium Potassium Chloride Carbon Dioxide Anion Gap BUN Creatinine Est GFR (CKD-EPI)AfAm Est GFR (CKD-EPI)NonAf Random Glucose Calcium Total Bilirubin AST ALT Alkaline Phosphatase Total Protein Albumin Blood Type O POSITIVE Antibody Screen Negative ASSESSMENT/PLAN: The patient is a 69 yo male with 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 The R 2nd toe was amputated less than 1 month ago and the foot has continued to get worse despite wound care. He was given ceftriaxone and flagyl for 2 weeks following the amputation last month. 1. dry gangrene of R 3rd toe Pt was sent to ED today specifically for amputation. Pt has hx of DM, PVD, and multiple amputations. He is currently denying any fever or chills. He only reports fatigue. Pt's white count is 7.5. Pt refused x-ray to r/o osteomyelitis as well as labs and EKG. RCRI class IV. Mabry 1.3% est risk DC or arrest perioperatively. -begin ceftriaxone 1g Q daily, flagyl 500mg BID, and vancomycin 1,250mg Q12H -CBC -ESR -CRP -CMP -Dr. Garcia consulted 2. ESRD dialysis MWF Cr 4.2 down from 6.1 last month. Baseline varies in upper 3s to low 6s. -trend Cr -Mg -Phos -monitor Is and Os 3. DM BG today 121. Pt may not be compliant with medications. He has not picked up prescriptions recently for DM. Pt refusing labs. -CMP -begin SSI -HbA1c -consider pt education at d/c on medication compliance/discuss barriers to accessing meds 4. HTN Pt has moderately elevated systolic BP 164/66. He is asymptomatic. -continue lisinopril 20mg BID -Toprol XL 50mg Q daily -hydralazine 100mg TID -reassess meds if systolic elevates 5. HLD -lipid panel -consider restarting statin 6. transaminasemia Alk phos 240 today. ALT and AST norm 22, 25, respectively. bone vs liver origin of Alk phos elevation. Pt refusing labs. -GGT DVT prophylaxis SCDs FEN no fluids trend electrolytes NPO after midnight Visit type - Emergency Visit Emergency Visit: Yes Care time: The patient presented to the Emergency Department on the above date and was hospitalized for further evaluation of their emergent condition. - New Patient This patient is new to me today: Yes Date on this admission: 03/31/19 - Critical Care Critical Care patient: No ATTENDING PHYSICIAN STATEMENT I saw and evaluated the patient. I reviewed the resident's note and discussed the case with the resident. I agree with the resident's findings and plan as documented. SUBJECTIVE: OBJECTIVE: ASSESSMENT AND PLAN:
[2019-03-30] MEDS ORDERED: LISINOPRIL 20 MG TABLET (FP) PO SCH (22:00)
[2019-03-30] MEDS ORDERED: LABETALOL HCL 100 MG TABLET (FP) PO SCH (22:00)
[2019-03-30] MEDS ORDERED: VANCOMYCIN HCL 1,250 MG in DEXTROSE 5%-WATER - 250 ML IVPB SCH (22:00)
[2019-03-30] MEDS ORDERED: NIFEdipine E.R 60 MG TABLET (UD) PO SCH (22:00)
[2019-03-30] MEDS ORDERED: ATORVASTATIN CA 80 MG TABLET (FP) PO SCH (22:00)
[2019-03-30] MEDS: VANCOMYCIN HCL 1,250 MG in DEXTROSE 5%-WATER - 250 ML IVPB SCH (22:08)
[2019-03-31] MEDS: hydrALAZINE HCL 50 MG TABLET (FP) PO SCH ×4 (06:07→22:32)
[2019-03-31] MEDS: INSULIN SLIDING SCALE (NOVOLOG) 1 VIAL SQ SCH ×5 (06:53→22:32)
[2019-03-31] MEDS ORDERED: hydrALAZINE HCL 25 MG TABLET (FP) ONE (07:17)
[2019-03-31] MEDS ORDERED: CEFTRIAXONE 1,000 MG in DEXTROSE 5%-WATER - 50 ML IVPB SCH (08:00)
[2019-03-31] MEDS ORDERED: VANCOMYCIN HCL 1,250 MG in DEXTROSE 5%-WATER - 250 ML IVPB SCH (08:00)
[2019-03-31 08:13] LABS: HEMATOCRIT 32.4 % (35.4-49); HEMOGLOBIN 11.4 GM/dL (11.7-16.9); MCH 36.4 pg (25.7-33.7); MCHC 35.2 g/dl (32.0-35.9); MEAN CELL VOLUME 103.6 fl (80-96); MEAN PLT VOLUME 7.6 fl (7.5-11.1); RBC 3.13 M/mm3 (4.00-5.60); RDW 15.4 % (11.9-15.9); WHITE BLOOD COUNT 7.8 K/mm3 (4.0-10.0)
[2019-03-31 08:45] LABS: BILIRUBIN,TOTAL 0.7 mg/dL (0.2-1); BLOOD UREA NITROGEN 29.7 mg/dL (7-18); CALCIUM 9.1 mg/dL (8.5-10.1); CREATININE 4.8 mg/dL (0.55-1.3); MAGNESIUM 2.2 mg/dL (1.8-2.4); PHOSPHOROUS 4.3 mg/dL (2.5-4.9); POTASSIUM 3.9 mmol/L (3.5-5.1); TOT PROT 7.4 g/dl (6.4-8.2)
[2019-03-31 09:47] LABS: PLATELET COUNT 292 K/MM3 (134-434)
[2019-03-31] MEDS ORDERED: LISINOPRIL 20 MG TABLET (FP) PO SCH ×2 (10:00→22:00)
[2019-03-31] MEDS ORDERED: FUROSEMIDE 40 MG TABLET (FP) PO SCH (10:00)
[2019-03-31] MEDS ORDERED: ISOSORBIDE MONONITRATE 60 MG TAB.SR.24H (FP) PO SCH (10:00)
[2019-03-31] MEDS ORDERED: CALCITRIOL 0.25 MCG CAPSULE (FP) PO SCH (10:00)
[2019-03-31] MEDS ORDERED: SPIRONOLACTONE 25 MG TABLET (FP) PO SCH (10:00)
[2019-03-31] MEDS: VANCOMYCIN HCL 1,250 MG in DEXTROSE 5%-WATER - 250 ML IVPB SCH (11:57)
[2019-03-31] MEDS ORDERED: ACETAMINOPHEN 325 MG TABLET (FP) PO PRN (12:31)
[2019-03-31 13:17] VITALS: BMI 22.5
--- NOTE | 2019-03-31 13:30 | PN ---
Teaching Attending Note Name of Resident: Gayle Saturnino ATTENDING PHYSICIAN STATEMENT I saw and evaluated the patient. I reviewed the resident's note and discussed the case with the resident. I agree with the resident's findings and plan as documented. SUBJECTIVE: no fever or chills . no GARNER , no abd pain. complains about pain in R toes but not changed form before. He is hungry . denies exertional SOB or PC. has no current Cp, or SOB. OBJECTIVE: NAD Cv : RRR, 3/6 SM at LUSB and LLSB Lungs: CTAB Abd: sfot, distended, umbilical hernia. + shifting dullness. Ext: L BKA, with clean stomp. R foot with d/p 2nd toe amputation with black necrotic bed of amputation. R third toe, and partial 4th,5th toes black discoloration. black discoloration extends to anterior psrt of foot just 1 cm beyond the MTP joints. no drainage . wet open area on plantar surface at level of 4th MTp with no drainage. DP 2+ . no edema on leg A/P : 69 y/o man with h/o CAD, s/p FL, PVD, ESRD on HD, HTN, HLP, Hep B , DM, Osteomyelitis, s/p angiogram, atherectomy, and angioplast, now s/p L BKA, and s /p R 2nd toe amputation , who was sent here by Dr. Ye for R 3rd toe gangrene 1- Gangrenous R 3rd toe and partial gangrene in 4th,5th toes. no evidence of cellulitis, or drainage. - Hold off abx until after Id eval - spoke with Dr. Garcia, for surgical amputation today. - cultures and bone for path to be sent - He has extensive cardiac and vascular hx. has stress in 06/03 with evidence of mild ischemia. echo 03/04 with NL EF and valvular problems. He is currently CP free and has no signs of decompensated heart failure. He will be at at least a moderate risk for mayco-op cardiac complications . this was d/w Dr. Clarke 2- ESRD: renal consult for HD 3- HTN: - cont BB, hydralazine, and lisinorpil - resume his home nifedipine and Imdur 4- PVD: cont statin. - He was on Asa and plavix before. not on med list now. will confirm and resume them DVT px after sx, depending on bleeding . will likely use heparin sq
--- NOTE | 2019-03-31 13:51 | PN ---
Progress Note (short form) - Note Progress Note: ID CONSULT DICTATED GANGRENE PCN ALLERGY ESRD CEFTRIAXONE/FLAGYL GOGO-OPERATIVELY
[2019-03-31] MEDS ORDERED: DOCUSATE SODIUM 100 MG CAPSULE (FP) PO SCH (14:00)
[2019-03-31] MEDS ORDERED: CEFTRIAXONE 1 GM in DEXTROSE 5%-WATER - 50 ML IVPB SCH (14:15)
--- NOTE | 2019-03-31 14:44 | CONS ---
DATE OF CONSULTATION: DATE OF DICTATION: 03/31/2019 REASON FOR CONSULTATION: The patient is a 69-year-old male evaluated for gangrene of the right foot. HISTORY OF PRESENT ILLNESS: He was referred for admission with worsening gangrene of the right foot. He is scheduled to have a partial transmetatarsal amputation. Patient has a known history of peripheral vascular disease and gangrene of the right foot. He is status post amputation of the right 2nd toe in February. There was no reported high-grade fever or shaking chills, no reported purulent wound drainage. PAST MEDICAL HISTORY: Positive for end-stage renal disease, peripheral vascular disease, gangrene of the right foot. PAST SURGICAL HISTORY: He is status post left opwrk-ptz-qvgp-amputation, status post right 2nd toe amputation. ALLERGIES: PENICILLIN. LABORATORY DATA: White count 7.8, hematocrit 32.4, platelets 292. Creatinine 4.8. PHYSICAL EXAMINATION: General: On examination, he is chronically ill-appearing. Vitals: Temperature 97.5, blood pressure 189/88, pulse 71 regular, respirations 18 per minute. Heart: Sounds S1, S2. Lungs: Clear. Abdomen: Soft and nontender. Extremities: AV fistula present in the left upper extremity. Patient is status post left epbsy-kha-mlav-amputation. The wound is well-healed. Examination of the right foot there is gangrene of the right 3rd toe. Dry gangrene with no purulent drainage or foul odor. There is swelling of the right foot. No erythema or warmth. IMPRESSION: 1. Gangrene of the right foot. 2. PENICILLIN ALLERGY. 3. End-stage renal disease. PLAN: Patient is scheduled for a partial transmetatarsal amputation. Continue ceftriaxone and Flagyl perioperatively. Thank you for the kind referral. AKIL PANTOJA M.D. [id number]
--- NOTE | 2019-03-31 14:46 | PN ---
Physical Exam: SUBJECTIVE: Patient seen and examined. No acute events overnight. Endorses mild pain in his R toes. Denies SOB, fevers, CP. OBJECTIVE: Vital Signs Period Temp Pulse Resp BP Sys/Cole Pulse Ox Last 24 Hr 97.5 F-98.6 F 71-72 18-20 153-184/74-88 95-96 GENERAL: The patient is awake, alert, and fully oriented, in no acute distress. HEAD: Normal with no signs of trauma. EYES: PERRL, extraocular movements intact, sclera anicteric, conjunctiva clear. No ptosis. ENT: Ears normal, nares patent, oropharynx clear without exudates, moist mucous membranes. NECK: Trachea midline, full range of motion, supple. LUNGS: Breath sounds equal, clear to auscultation bilaterally, no wheezes, no crackles, no accessory muscle use. HEART: Regular rate and rhythm, S1, S2. 3/6 SM at LUSB and LLSB ABDOMEN: Soft, nontender, distended. Umbilical hernia. + Shifting dullness. EXTREMITIES: L BKA, with clean stomp, well-perfused. R foot with d/p, 2nd toe amputation with black necrotic bed of amputation. R third toe, and partial 4th, 5th toes black discoloration. The black discoloration extends to ant part of foot just beyond the MTP joints. No purulent drainage. Wet open area on plantar surface at level of 4th MTP, no purulent discharge. DP 2+. No edema NEUROLOGICAL: Cranial nerves II through XII grossly intact. Normal speech, gait not observed. PSYCH: Normal mood, normal affect. SKIN: Warm, dry, normal turgor, no rashes or lesions noted Laboratory Results - last 24 hr CBC, BMP 03/31/19 07:13 03/31/19 07:13 Active Medications Acetaminophen (Tylenol -) 650 mg PO Q4H PRN PRN Reason: PAIN LEVEL 1-5 Last Admin: 03/31/19 14:12 Dose: 650 mg Atorvastatin Calcium (Lipitor -) 80 mg PO HS [facility] Last Admin: 03/31/19 06:08 Dose: Not Given Calcitriol (Rocaltrol -) 0.25 mcg PO DAILY [facility] Docusate Sodium (Colace -) 100 mg PO TID [facility] Last Admin: 03/31/19 14:14 Dose: Not Given Ferrous Sulfate (Feosol -) 325 mg PO BIDWM [facility] Hydralazine HCl (Apresoline -) 100 mg PO TID [facility] Last Admin: 03/31/19 14:12 Dose: 100 mg Ceftriaxone Sodium 1 gm/ (Dextrose) 50 mls @ 100 mls/hr IVPB DAILY [facility]; Protocol Metronidazole (Flagyl 500mg Premixed Ivpb -) 500 mg in 100 mls @ 100 mls/hr IVPB Q8H-IV [facility] Insulin Aspart (Novolog Vial Sliding Scale -) 1 vial SQ ACHS [facility]; Protocol Last Admin: 03/31/19 12:42 Dose: Not Given Isosorbide Mononitrate (Imdur -) 60 mg PO DAILY [facility] Lisinopril (Prinivil) 20 mg PO BID [facility] Metoprolol Succinate (Toprol Xl -) 50 mg PO DAILY [facility] Last Admin: 03/31/19 14:12 Dose: 50 mg Multivit/Ca Carb/B Cmplx/FA/Prenat (Nephro-Brynn -) 1 tablet PO DAILY [facility] Nifedipine (Procardia Xl -) 60 mg PO BID [facility] Senna (Senna -) 1 tab PO BID [facility] Sevelamer Carbonate (Renvela -) 800 mg PO TIDCM [facility] ASSESSMENT/PLAN: The patient is a 69 yo male with 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 #Dry gangrene R 3rd toe and partial gangrene 4th and 5th toes. No evidence of infection or drainage, hold off abx until ID eval Dr. Garcia on board, surgery scheduled for today Pt has extensive cardiac and vascular hx. Stress test in 06/03 with evidence of mild ischemia. Echo 03/04 with NL EF and valvular problems. Pt is currently CP free and no disgns of decmpensated HF. Mod risk for perioperative complications. This was discussed with Dr. Garcia. #ESRD dialysis MWF Cr 4.8 down from 6.1 last month. Baseline varies in upper 3s to low 6s. Trend Cr, Mg, Ph Monitor Is and Os Consult renal #HTN Cont hydralazine, lisinopril, and toprolol Resume home medications nifedipine and Imdur #PVD Cont lipitor 80mg po #DM BG today 121 SSI HbA1c: 4.5% #DVT prophylaxis SCDs #FEN No fluids NPO until after surgery Visit type - Emergency Visit Emergency Visit: Yes ED Registration Date: 03/30/19 Care time: The patient presented to the Emergency Department on the above date and was hospitalized for further evaluation of their emergent condition. - New Patient This patient is new to me today: Yes Date on this admission: 03/31/19 - Critical Care Critical Care patient: No ATTENDING PHYSICIAN STATEMENT I saw and evaluated the patient. I reviewed the resident's note and discussed the case with the resident. I agree with the resident's findings and plan as documented. SUBJECTIVE: OBJECTIVE: ASSESSMENT AND PLAN:
--- NOTE | 2019-03-31 15:04 | CONSULT ---
Consult Consult Specialty:: Nephrology Reason for Consultation:: ESRD - History of Present Illness Chief Complaint: sent in for toe amputation History of Present Illness: Pt is a 69 year old male with pmhx of htn, hld, DM, PVD, left BKA, and ESRD who was sent in for right toe amputation. He denies fevers or chills. He denies chest pain or shortness of breath. I was called to evaluate him as he is on HD. His last HD was on Saturday and he is due for HD tomorrow. He has gangrene of his right toes. - History Source History Provided By: Patient, Medical Record - Past Medical History Cardio/Vascular: Yes: CAD, CHF, HTN, [place], Murmur, Other (PAD) Pulmonary: Yes: Other Renal/: Yes: Renal Failure, Hemodialysis Musculoskeletal: Yes: Other Endocrine: Yes: Diabetes Mellitus Dermatology: Yes: Other (maya) Additional Medical History: DM - Past Surgical History Past Surgical History: Yes: Amputation (Left BKA ), AV Fistula/Graft - Alcohol/Substance Use Hx Alcohol Use: No History of Substance Use: reports: None - Smoking History Smoking history: Former smoker Have you smoked in the past 12 months: No If you are a former smoker, when did you quit?: many years ago - Social History Usual Living Arrangement: With Significant Other ADL: Family Assistance History of Recent Travel: No Home Medications - Allergies Allergies/Adverse Reactions: Allergies Allergy/AdvReac Type Severity Reaction Status Date / Time Penicillins Allergy Verified 03/30/19 12:14 piperacillin [From Zosyn] Allergy Verified 03/30/19 12:14 tazobactam [From Zosyn] Allergy Verified 03/30/19 12:14 - Home Medications Home Medications: Ambulatory Orders Calcitriol [Calcitriol -] 0.25 mcg PO DAILY #30 capsule 05/27/18 Furosemide [Lasix -] 40 mg PO DAILY #30 tablet 05/27/18 Ferrous Sulfate [Feosol] 325 mg PO BID #60 ud 07/09/18 Sennosides [Senna -] 1 tab PO BID #60 tablet 07/09/18 Atorvastatin Ca [Lipitor] 80 mg PO HS #30 tablet 07/26/18 Docusate Sodium [Colace -] 100 mg PO TID capsule 07/26/18 Hydralazine HCl 100 mg PO TID #90 tablet 07/26/18 Nifedipine ER [Procardia XL -] 60 mg PO BID #60 tab.er.24 07/26/18 Sevelamer HCl [Renagel] 800 mg PO TID 30 Days #90 tablet 07/26/18 Acetaminophen [Tylenol .Regular Strength -] 650 mg PO Q4H PRN tablet 03/09/19 Insulin Sliding Scale [Novolog Vial Sliding Scale -] 1 vial SQ ACHS units 03/09 Isosorbide Mononitrate [Imdur -] 60 mg PO DAILY tab.sr.24h 03/09/19 Vitamin B Comp W-C [Nephro-Brynn -] 1 tablet PO DAILY tablet 03/09/19 Lisinopril 20 mg PO BID 03/30/19 Metoprolol Succinate 50 mg PO DAILY 03/30/19 Family Disease History - Family Disease History Family Disease History: Diabetes: Father (did not know him), Mother (did not know him), Sister, Other: Mother, Son (4, healthy), Daughter (4, healthy) Review of Systems - Review of Systems Constitutional: reports: No Symptoms. denies: Chills, Fever Eyes: reports: No Symptoms HENT: reports: No Symptoms Neck: reports: No Symptoms Cardiovascular: reports: No Symptoms Respiratory: reports: No Symptoms Gastrointestinal: reports: No Symptoms Genitourinary: reports: No Symptoms Musculoskeletal: reports: Other (left bka) Integumentary: reports: Other (toe gangrene) Endocrine: reports: No Symptoms Hematology/Lymphatic: reports: No Symptoms Psychiatric: reports: No Symptoms Physical Exam Vital Signs: Vital Signs Temperature 97.5 F L 03/31/19 12:48 Pulse Rate 71 03/31/19 12:48 Respiratory Rate 18 03/31/19 12:48 Blood Pressure 184/88 H 03/31/19 12:48 O2 Sat by Pulse Oximetry (%) 96 03/31/19 09:00 Constitutional: Yes: Calm Eyes: Yes: Conjunctiva Clear HENT: Yes: Atraumatic Cardiovascular: Yes: S1, S2 Respiratory: Yes: CTA Bilaterally Gastrointestinal: Yes: Soft Renal/: Yes: WNL Musculoskeletal: Yes: Other (left bka) Edema: No Wound/Incision: Yes: Dressing Dry and Intact Neurological: Yes: Oriented Psychiatric: Yes: Oriented Labs: CBC, BMP 03/31/19 07:13 03/31/19 07:13 Problem List - Problems (1) Gangrene Code(s): I96 - GANGRENE, NOT ELSEWHERE CLASSIFIED (2) ESRD (end stage renal disease) Code(s): N18.6 - END STAGE RENAL DISEASE Assessment/Plan Current Medications Generic Name Dose Route Start Last Admin Trade Name Freq PRN Reason Stop Dose Admin Acetaminophen 650 mg 03/31/19 12:31 03/31/19 14:12 Tylenol - PO 650 mg Q4H PRN Administration PAIN LEVEL 1-5 Atorvastatin Calcium 80 mg 03/30/19 22:00 03/31/19 06:08 Lipitor - PO Not Given HS [facility] Calcitriol 0.25 mcg 03/31/19 10:00 Rocaltrol - PO DAILY [facility] Docusate Sodium 100 mg 03/31/19 14:00 03/31/19 14:14 Colace - PO Not Given TID [facility] Ferrous Sulfate 325 mg 03/31/19 17:30 Feosol - PO BIDWM [facility] Hydralazine HCl 100 mg 03/30/19 22:00 03/31/19 14:12 Apresoline - PO 100 mg TID [facility] Administration Ceftriaxone Sodium 1 gm/ 50 mls @ 100 mls/hr 03/31/19 14:15 Dextrose IVPB DAILY [facility] Protocol Metronidazole 500 mg in 100 mls @ 100 mls/hr 03/31/19 14:15 Flagyl 500mg Premixed Ivpb - IVPB Q8H-IV [facility] Insulin Aspart 1 vial 03/30/19 22:00 03/31/19 12:42 Novolog Vial Sliding Scale - SQ Not Given ACHS [facility] Protocol Isosorbide Mononitrate 60 mg 04/01/19 10:00 Imdur - PO DAILY [facility] Lisinopril 20 mg 03/31/19 22:00 Prinivil PO BID [facility] Metoprolol Succinate 50 mg 03/31/19 10:00 03/31/19 14:12 Toprol Xl - PO 50 mg DAILY [facility] Administration Multivit/Ca Carb/B Cmplx/FA/Prenat 1 tablet 04/01/19 10:00 Nephro-Brynn - PO DAILY [facility] Nifedipine 60 mg 03/31/19 22:00 Procardia Xl - PO BID [facility] Senna 1 tab 03/31/19 22:00 Senna - PO BID [facility] Sevelamer Carbonate 800 mg 03/31/19 17:30 Renvela - PO TIDCM [facility] Impression 1. ESRD on HD 2. anemia 3. DM 4. HTN 5. toe infection/gangrene 6. PVD 7. cavernous malformation Plan - HD tomorrow - do not hold bp meds on HD days as his blood pressure is difficult to control - resume home bp meds - renal diet - pt is a MWF HD
[2019-03-31] MEDS ORDERED: DEXTROSE 5%-WATER - 50 ML IVPB ONE (15:55)
[2019-03-31] MEDS ORDERED: cefTRIAXone SODIUM 1 GM VIAL ONE (15:55)
[2019-03-31] MEDS ORDERED: SEVELAMER CARBONATE 800 MG TAB (FP) PO SCH (17:30)
[2019-03-31] MEDS ORDERED: FERROUS SO4 325 MG TABLET (FP) PO SCH (17:30)
[2019-03-31] MEDS ORDERED: SODIUM CHLORIDE 250 ML IV PRN ×2 (17:49→20:24)
[2019-03-31] MEDS ORDERED: MIDAZOLAM HCL 2 MG/2 ML SINGLE DOSE VIAL ONE ×2 (18:39)
[2019-03-31] MEDS ORDERED: PROPOFOL 20 ML ONE (18:46)
[2019-03-31] MEDS ORDERED: DEXAMETHASONE SOD PHOSPHATE 4 MG/1 ML VIAL ONE (18:46)
[2019-03-31] MEDS ORDERED: LIDOCAINE HCL 2% (20ML MULTI-DOSE VIAL) NR ONE (18:47)
--- NOTE | 2019-03-31 19:45 | OP ---
Operative Note - Note: Operative Date: 03/31/19 Pre-Operative Diagnosis: right forefoot dry gangrene Operation: right foot transmetatarsal amputation Post-Operative Diagnosis: Same as Pre-op Surgeon: Hakan Garcia Anesthesia: Local, MAC Specimens Removed: right forefoot bone and soft tissue Estimated Blood Loss (mls): 20 Operative Report Dictated: Yes
[2019-03-31] MEDS ORDERED: ONDANSETRON 4 MG/2 ML VIAL IVPUSH PRN (19:53)
[2019-03-31] MEDS ORDERED: LIDOCAINE HCL 2% (50ML VIAL) INF ONE (19:53)
[2019-03-31] MEDS ORDERED: SODIUM CHLORIDE 1,000 ML IV SCH (20:00)
--- NOTE | 2019-03-31 21:19 | OP ---
DATE OF OPERATION: 03/31/2019 PREOPERATIVE DIAGNOSIS: Right forefoot dry gangrene. POSTOPERATIVE DIAGNOSIS: Right forefoot dry gangrene. PROCEDURE: Right foot transmetatarsal amputation. SURGEON: Hakan Garcia DPM ANESTHESIA: IV sedation and local. HEMOSTASIS: Surgical dissection. PATHOLOGY: Right forefoot bone and soft tissue. COMPLICATIONS: None. The patient was brought to the operating room and placed on the operating table in supine position. Following induction of IV sedation, local anesthesia was achieved utilizing 20 mL of 2% lidocaine plain. The right foot was scrubbed, prepped and draped in the usual sterile fashion. Attention was directed to the right foot, where there was forefoot gangrene at the level of the metatarsophalangeal joints of all digits. I began by performing a circumferential fishmouth type incision with care being paid to preserve the plantar flap distally. The incision was deepened using sharp and blunt dissection, taking care to retract vital neural and vascular structures. All bleeders were cauterized and ligated as needed. Next, digits 1, 3, 4, and 5 were disarticulated at the level of the metatarsophalangeal joints. The 2nd digit was already amputated from prior surgery. Once these digits were disarticulated at the level of the metatarsophalangeal joints, the digits were removed entirely and sent to Pathology for analysis. A wound culture was then obtained. Next, periosteal incisions were made on the 1st, 2nd, 3rd, 4th, and 5th metatarsals. The metatarsal heads and midshaft were resected utilizing the sagittal saw, with care being taken to preserve the parabolic structures in the metatarsal. The stumps of the metatarsals were rasped smooth with the sagittal saw. The surgical site was then copiously irrigated with sterile saline. All redundant extensor and flexor tendons were resected. The surgical site was loosely coapted using 3-0 nylon in a simple interrupted suture fashion. Following conclusion of the procedure, the surgical site was covered with Xeroform and a sterile compressive dressing was applied to the right foot consisting of sterile gauze, ABD, Kerlix, and an Toby wrap. Patient tolerated the procedure and anesthesia well without complications. He was transferred from the operating room to the recovery unit with vital signs stable and neuro-vasculature intact to the right foot. SB [id number] cc: [facility]
[2019-03-31] MEDS ORDERED: SENNOSIDES 8.6MG TABLET (FP) PO SCH (22:00)
[2019-03-31] MEDS ORDERED: NIFEdipine E.R 60 MG TABLET (UD) PO SCH (22:00)
[2019-03-31] MEDS: ATORVASTATIN CA 80 MG TABLET (FP) PO SCH (22:32)
[2019-03-31] MEDS: NIFEdipine E.R 60 MG TABLET (UD) PO SCH (22:32)
[2019-03-31] MEDS: SENNOSIDES 8.6MG TABLET (FP) PO SCH (22:32)
[2019-03-31] MEDS: DOCUSATE SODIUM 100 MG CAPSULE (FP) PO SCH (22:32)
[2019-03-31] MEDS: LISINOPRIL 20 MG TABLET (FP) PO SCH (22:32)
[2019-04-01] MEDS: ACETAMINOPHEN 325 MG TABLET (FP) PO PRN ×2 (01:44→21:08)
[2019-04-01] MEDS: DOCUSATE SODIUM 100 MG CAPSULE (FP) PO SCH ×3 (06:38→21:10)
[2019-04-01] MEDS: hydrALAZINE HCL 50 MG TABLET (FP) PO SCH ×3 (06:38→21:10)
[2019-04-01] MEDS: INSULIN SLIDING SCALE (NOVOLOG) 1 VIAL SQ SCH ×4 (06:39→21:16)
--- NOTE | 2019-04-01 08:55 | PN ---
Progress Note (short form) - Note Progress Note: Vascular surgery POD#1 69yo male followed by Dr Paiz in the wound care clinic and seen pre-op now POD #1 right TMA with podiatry seen and examined at bedside with no complaints. He states his pain is minimal and controlled. He denies any CP, SOB, N/V fever or chills. Vital Signs Temp 97.5 F L 04/01/19 04:55 Pulse 64 04/01/19 04:55 Resp 20 04/01/19 04:55 BP 90/50 L 04/01/19 04:55 Pulse Ox 100 03/31/19 21:30 Intake & Output 03/31/19 03/31/19 04/01/19 11:59 23:59 11:59 Intake Total 800 50 Balance 800 50 Weight 131 lb 1.6 oz 129 lb 4.8 oz Intake: IV 200 IVPB 500 50 Oral 100 Other: Voiding Method Urinal Height 5 ft 4 in Body Mass Index (BMI) 22.5 Weight Measurement Method Built in Bedscale Built in [facility] CBC, BMP 03/31/19 07:13 03/31/19 07:13 PE: A&Ox3, NAD Unlabored resp on RA Right LE- dressings c/d/i with no evidence of d/c. LE compartments soft, supple and non-tender to palpation. Left LE AKA stump well healed, soft, supple and non-tender. Problem List - Problems (1) PAD (peripheral artery disease) Assessment/Plan: POD #1 right TMA patient doing well. Podiatry following TMA on this admission. 1) continue podiatry plan of care 2) re-consult vascular should there be a problem with healing 3) F/u in wound care clinic Evaluation and plan discussed with Dr Paiz Code(s): I73.9 - PERIPHERAL VASCULAR DISEASE, UNSPECIFIED
[2019-04-01] MEDS: FERROUS SO4 325 MG TABLET (FP) PO SCH ×2 (09:01→18:03)
[2019-04-01] MEDS: SEVELAMER CARBONATE 800 MG TAB (FP) PO SCH ×3 (09:01→18:04)
--- NOTE | 2019-04-01 09:39 | PN ---
Teaching Attending Note Name of Resident: Shannon Dimas ATTENDING PHYSICIAN STATEMENT I saw and evaluated the patient. I reviewed the resident's note and discussed the case with the resident. I agree with the resident's findings and plan as documented. SUBJECTIVE: Patient is s/p surgery. OBJECTIVE: Vital Signs Temperature 97.5 F L 04/01/19 04:55 Pulse Rate 64 04/01/19 04:55 Respiratory Rate 20 04/01/19 04:55 Blood Pressure 90/50 L 04/01/19 04:55 O2 Sat by Pulse Oximetry (%) 100 03/31/19 21:30 GENERAL: The patient is awake, alert, and fully oriented. s/p surgery. HEAD: Normal with no signs of trauma. EYES: PERRL, extraocular movements intact, sclera anicteric, conjunctiva clear. ENT: Ears normal, oropharynx clear without exudates, moist mucous membranes. NECK: Trachea midline, full range of motion, supple. LUNGS: Breath sounds equal, clear to auscultation bilaterally, no wheezes, no crackles, no accessory muscle use. HEART: Regular rate and rhythm, S1, S2 without murmur, rub or gallop. ABDOMEN: Soft, nontender, nondistended, normoactive bowel sounds, no guarding, no rebound, no hepatosplenomegaly, no masses. EXTREMITIES: 2+ pulses, warm, well-perfused, right foot transmetatarsal amputation NEUROLOGICAL: Cranial nerves II through XII grossly intact. Normal speech, gait not observed. PSYCH: Normal mood, normal affect. SKIN: Warm, dry, normal turgor, no rashes or lesions noted CBCD WBC 7.8 K/mm3 (4.0-10.0) 03/31/19 07:13 RBC 3.13 M/mm3 (4.00-5.60) L 03/31/19 07:13 Hgb 11.4 GM/dL (11.7-16.9) L 03/31/19 07:13 Hct 32.4 % (35.4-49) L 03/31/19 07:13 MCV 103.6 fl (80-96) H 03/31/19 07:13 MCHC 35.2 g/dl (32.0-35.9) 03/31/19 07:13 RDW 15.4 % (11.9-15.9) 03/31/19 07:13 Plt Count 292 K/MM3 (134-434) 03/31/19 07:13 MPV 7.6 fl (7.5-11.1) 03/31/19 07:13 CMP Sodium 137 mmol/L (136-145) 03/31/19 07:13 Potassium 3.9 mmol/L (3.5-5.1) 03/31/19 07:13 Chloride 99 mmol/L (98-107) 03/31/19 07:13 Carbon Dioxide 28 mmol/L (21-32) 03/31/19 07:13 Anion Gap 9 MMOL/L (8-16) 03/31/19 07:13 BUN 29.7 mg/dL (7-18) H 03/31/19 07:13 Creatinine 4.8 mg/dL (0.55-1.3) H 03/31/19 07:13 Random Glucose 114 mg/dL (74-106) H 03/31/19 07:13 Calcium 9.1 mg/dL (8.5-10.1) 03/31/19 07:13 Total Bilirubin 0.7 mg/dL (0.2-1) 03/31/19 07:13 AST 25 U/L (15-37) 03/31/19 07:13 ALT 19 U/L (13-61) 03/31/19 07:13 Alkaline Phosphatase 219 U/L (45-117) H 03/31/19 07:13 Total Protein 7.4 g/dl (6.4-8.2) 03/31/19 07:13 Albumin 3.0 g/dl (3.4-5.0) L 03/31/19 07:13 Current Medications Generic Name Dose Route Start Last Admin Trade Name Freq PRN Reason Stop Dose Admin Acetaminophen 650 mg 03/31/19 20:24 04/01/19 01:44 Tylenol - PO 650 mg Q4H PRN Administration PAIN LEVEL 1-5 Aspirin 81 mg 04/01/19 10:00 Ecotrin - PO DAILY CHUCKY Atorvastatin Calcium 80 mg 03/31/19 22:00 03/31/19 22:32 Lipitor - PO 80 mg HS CHUCKY Administration Calcitriol 0.25 mcg 04/01/19 10:00 Rocaltrol - PO DAILY CHUCKY Docusate Sodium 100 mg 03/31/19 22:00 04/01/19 06:38 Colace - PO 100 mg TID CHUCKY Administration Fentanyl 25 mcg 03/31/19 19:53 Sublimaze Injection - IVPUSH [id number] PRN PAIN-PACU ORDER X 4 DOSES ONLY Ferrous Sulfate 325 mg 04/01/19 08:00 04/01/19 09:01 Feosol - PO Not Given BIDWM [facility]Y Hydralazine HCl 100 mg 03/31/19 22:00 04/01/19 06:38 Apresoline - PO 100 mg TID CHUCKY Administration Sodium Chloride 250 mls @ 3,000 mls/hr 03/31/19 20:24 Normal Saline - IV 04/01/19 17:49 PRN PRN Hypotension during Dialysis Ceftriaxone Sodium 1 gm/ 50 mls @ 100 mls/hr 04/01/19 10:00 Dextrose IVPB DAILY [facility]Y Protocol Metronidazole 500 mg in 100 mls @ 100 mls/hr 04/01/19 02:00 04/01/19 01:34 Flagyl 500mg Premixed Ivpb - IVPB 100 mls/hr Q8H-IV [facility]Y Administration Insulin Aspart 1 vial 03/31/19 22:00 04/01/19 06:39 Novolog Vial Sliding Scale - SQ 2 units ACHS CHUCKY Administration Protocol Isosorbide Mononitrate 60 mg 04/01/19 10:00 Imdur - PO DAILY [facility] Lisinopril 20 mg 03/31/19 22:00 03/31/19 22:32 Prinivil PO 20 mg BID CHUCKY Administration Metoprolol Succinate 50 mg 04/01/19 10:00 Toprol Xl - PO DAILY [facility] Multivit/Ca Carb/B Cmplx/FA/Prenat 1 tablet 04/01/19 10:00 Nephro-Brynn - PO DAILY [facility] Nifedipine 60 mg 03/31/19 22:00 03/31/19 22:32 Procardia Xl - PO 60 mg BID [facility]Y Administration Ondansetron HCl 4 mg 03/31/19 19:53 Zofran Injection IVPUSH Q6H PRN NAUSEA AND/OR VOMITING Senna 1 tab 03/31/19 22:00 03/31/19 22:32 Senna - PO 1 tab BID [facility]Y Administration Sevelamer Carbonate 800 mg 04/01/19 08:00 04/01/19 09:01 Renvela - PO Not Given TIDCM [facility] Home Medications Medication Instructions Recorded Calcitriol [Calcitriol -] 0.25 mcg PO DAILY #30 capsule 05/27/18 Furosemide [Lasix -] 40 mg PO DAILY #30 tablet 05/27/18 Ferrous Sulfate [Feosol] 325 mg PO BID #60 ud 07/09/18 Sennosides [Senna -] 1 tab PO BID #60 tablet 07/09/18 Atorvastatin Ca [Lipitor] 80 mg PO HS #30 tablet 07/26/18 Docusate Sodium [Colace -] 100 mg PO TID capsule 07/26/18 Hydralazine HCl 100 mg PO TID #90 tablet 07/26/18 Nifedipine ER [Procardia XL -] 60 mg PO BID #60 tab.er.24 07/26/18 Sevelamer HCl [Renagel] 800 mg PO TID 30 Days #90 tablet 07/26/18 Acetaminophen [Tylenol .Regular 650 mg PO Q4H PRN tablet 03/09/19 Strength -] Insulin Sliding Scale [Novolog 1 vial SQ ACHS units 03/09/19 Vial Sliding Scale -] Isosorbide Mononitrate [Imdur -] 60 mg PO DAILY tab.sr.24h 03/09/19 Vitamin B Comp W-C [Nephro-Brynn -] 1 tablet PO DAILY tablet 03/09/19 Lisinopril 20 mg PO BID 03/30/19 Metoprolol Succinate 50 mg PO DAILY 03/30/19 ASSESSMENT AND PLAN: 69 y/o man with h/o CAD, s/p ID, PVD, ESRD on HD, HTN, HLP, Hep B , DM, Osteomyelitis, s/p angiogram, atherectomy, and angioplast, now s/p L BKA, and s /p R 2nd toe amputation , who was sent here by Dr. Ye for R 3rd toe gangrene # POD #1 right foot transmetatarsal amputation due to having Gangrenous R 3rd toe and partial gangrene in 4th,5th toes. # ESRD: on HD continue # HTN: cont BB, hydralazine, and lisinorpil; resume his home nifedipine and Imdur # PVD: cont statin. on Asa and plavix before. DVT px after sx, depending on bleeding . will likely use heparin sq
[2019-04-01] MEDS ORDERED: ASPIRIN COATED 81 MG TABLET.EC PO SCH (10:00)
[2019-04-01] MEDS ORDERED: ISOSORBIDE MONONITRATE 60 MG TAB.SR.24H (FP) PO SCH (10:00)
[2019-04-01] MEDS ORDERED: VITAMIN B COMP W-C 1 EA TABLET PO SCH (10:00)
--- NOTE | 2019-04-01 10:32 | EKG ---
Test Reason : Blood Pressure : / mmHG Vent. Rate : 063 BPM Atrial Rate : 063 BPM P-R Int : 182 ms QRS Dur : 146 ms QT Int : 488 ms P-R-T Axes : 023 242 013 degrees QTc Int : 499 ms NORMAL SINUS RHYTHM RIGHT BUNDLE BRANCH BLOCK POSSIBLE LATERAL INFARCT , AGE UNDETERMINED ABNORMAL ECG WHEN COMPARED WITH ECG OF 27-FEB-2019 12:55, BORDERLINE CRITERIA FOR LATERAL INFARCT ARE NOW PRESENT NONSPECIFIC T WAVE ABNORMALITY NOW EVIDENT IN LATERAL LEADS Confirmed by ANGEL YOUNG MD ([id number]) on 04/01/2019 10:31:49 AM Referred By: Confirmed By:ANGEL YOUNG MD
[2019-04-01 11:05] LABS: HEMATOCRIT 30.7 % (35.4-49); HEMOGLOBIN 10.5 GM/dL (11.7-16.9); MCH 35.3 pg (25.7-33.7); MCHC 34.1 g/dl (32.0-35.9); MEAN CELL VOLUME 103.5 fl (80-96); MEAN PLT VOLUME 8.5 fl (7.5-11.1); PLATELET COUNT 321 K/MM3 (134-434); RBC 2.96 M/mm3 (4.00-5.60); RDW 15.4 % (11.9-15.9); WHITE BLOOD COUNT 7.7 K/mm3 (4.0-10.0)
[2019-04-01 11:51] LABS: ALBUMIN 2.8 g/dl (3.4-5.0); BILIRUBIN,TOTAL 0.5 mg/dL (0.2-1); BLOOD UREA NITROGEN 47.8 mg/dL (7-18); CALCIUM 8.9 mg/dL (8.5-10.1); POTASSIUM 4.5 mmol/L (3.5-5.1); TOT PROT 6.9 g/dl (6.4-8.2)
[2019-04-01] MEDS: ASPIRIN COATED 81 MG TABLET.EC PO SCH (12:34)
[2019-04-01] MEDS: VITAMIN B COMP W-C 1 EA TABLET PO SCH (12:35)
[2019-04-01] MEDS: LISINOPRIL 20 MG TABLET (FP) PO SCH ×2 (12:35→21:10)
[2019-04-01] MEDS: ISOSORBIDE MONONITRATE 60 MG TAB.SR.24H (FP) PO SCH (12:35)
[2019-04-01] MEDS: NIFEdipine E.R 60 MG TABLET (UD) PO SCH ×2 (12:36→21:11)
[2019-04-01] MEDS: CALCITRIOL 0.25 MCG CAPSULE (FP) PO SCH (12:36)
[2019-04-01] MEDS: SENNOSIDES 8.6MG TABLET (FP) PO SCH ×2 (12:37→21:10)
--- NOTE | 2019-04-01 12:54 | PN ---
Progress Note, Physician History of Present Illness: Pt seen and examined at bedside. He is awake and alert. He is tolerating HD. - Current Medication List Current Medications: Active Medications Acetaminophen (Tylenol -) 650 mg PO Q4H PRN PRN Reason: PAIN LEVEL 1-5 Last Admin: 04/01/19 01:44 Dose: 650 mg Aspirin (Ecotrin -) 81 mg PO DAILY [facility] Last Admin: 04/01/19 12:34 Dose: Not Given Atorvastatin Calcium (Lipitor -) 80 mg PO HS [facility] Last Admin: 03/31/19 22:32 Dose: 80 mg Calcitriol (Rocaltrol -) 0.25 mcg PO DAILY [facility] Last Admin: 04/01/19 12:36 Dose: Not Given Docusate Sodium (Colace -) 100 mg PO TID [facility] Last Admin: 04/01/19 06:38 Dose: 100 mg Fentanyl (Sublimaze Injection -) 25 mcg IVPUSH [id number] PRN PRN Reason: PAIN-PACU ORDER X 4 DOSES ONLY Ferrous Sulfate (Feosol -) 325 mg PO BIDWM [facility] Last Admin: 04/01/19 09:01 Dose: Not Given Hydralazine HCl (Apresoline -) 100 mg PO TID [facility] Last Admin: 04/01/19 06:38 Dose: 100 mg Sodium Chloride (Normal Saline -) 250 mls @ 3,000 mls/hr IV PRN PRN PRN Reason: Hypotension during Dialysis Stop: 04/01/19 17:49 Ceftriaxone Sodium 1 gm/ (Dextrose) 50 mls @ 100 mls/hr IVPB DAILY [facility]; Protocol Metronidazole (Flagyl 500mg Premixed Ivpb -) 500 mg in 100 mls @ 100 mls/hr IVPB Q8H-IV [facility] Last Admin: 04/01/19 01:34 Dose: 100 mls/hr Insulin Aspart (Novolog Vial Sliding Scale -) 1 vial SQ ACHS [facility]; Protocol Last Admin: 04/01/19 12:37 Dose: Not Given Isosorbide Mononitrate (Imdur -) 60 mg PO DAILY [facility] Last Admin: 04/01/19 12:35 Dose: Not Given Lisinopril (Prinivil) 20 mg PO BID [facility] Last Admin: 04/01/19 12:35 Dose: Not Given Metoprolol Succinate (Toprol Xl -) 50 mg PO DAILY [facility] Last Admin: 04/01/19 12:37 Dose: Not Given Multivit/Ca Carb/B Cmplx/FA/Prenat (Nephro-Brynn -) 1 tablet PO DAILY [facility] Last Admin: 04/01/19 12:35 Dose: Not Given Nifedipine (Procardia Xl -) 60 mg PO BID [facility] Last Admin: 04/01/19 12:36 Dose: Not Given Ondansetron HCl (Zofran Injection) 4 mg IVPUSH Q6H PRN PRN Reason: NAUSEA AND/OR VOMITING Senna (Senna -) 1 tab PO BID [facility] Last Admin: 04/01/19 12:37 Dose: Not Given Sevelamer Carbonate (Renvela -) 800 mg PO TIDCM [facility] Last Admin: 04/01/19 12:37 Dose: Not Given - Objective Vital Signs: Vital Signs Temperature 97.7 F 04/01/19 09:30 Pulse Rate 63 04/01/19 09:35 Respiratory Rate 18 04/01/19 09:35 Blood Pressure 103/52 L 04/01/19 09:35 O2 Sat by Pulse Oximetry (%) 100 03/31/19 21:30 Constitutional: Yes: Calm Eyes: Yes: Conjunctiva Clear HENT: Yes: Atraumatic Neck: Yes: Supple Cardiovascular: Yes: S1, S2 Respiratory: Yes: CTA Bilaterally Gastrointestinal: Yes: Soft Genitourinary: Yes: WNL Musculoskeletal: Yes: Other (left bka) Wound/Incision: Yes: Dressing Dry and Intact Neurological: Yes: Oriented Psychiatric: Yes: Oriented Labs: CBC, BMP 04/01/19 10:05 04/01/19 10:05 INR, PTT INR 1.06 (0.83-1.09) 03/30/19 16:22 Problem List - Problems (1) Gangrene Code(s): I96 - GANGRENE, NOT ELSEWHERE CLASSIFIED (2) ESRD (end stage renal disease) Code(s): N18.6 - END STAGE RENAL DISEASE Assessment/Plan Current Medications Generic Name Dose Route Start Last Admin Trade Name Freq PRN Reason Stop Dose Admin Acetaminophen 650 mg 03/31/19 12:31 03/31/19 14:12 Tylenol - PO 650 mg Q4H PRN Administration PAIN LEVEL 1-5 Atorvastatin Calcium 80 mg 03/30/19 22:00 03/31/19 06:08 Lipitor - PO Not Given HS [facility] Calcitriol 0.25 mcg 03/31/19 10:00 Rocaltrol - PO DAILY [facility] Docusate Sodium 100 mg 03/31/19 14:00 03/31/19 14:14 Colace - PO Not Given TID [facility]UCK[facility] Ferrous Sulfate 325 mg 03/31/19 17:30 Feosol - PO BIDWM [facility] Hydralazine HCl 100 mg 03/30/19 22:00 03/31/19 14:12 Apresoline - PO 100 mg TID [facility] Administration Ceftriaxone Sodium 1 gm/ 50 mls @ 100 mls/hr 03/31/19 14:15 Dextrose IVPB DAILY [facility] Protocol Metronidazole 500 mg in 100 mls @ 100 mls/hr 03/31/19 14:15 Flagyl 500mg Premixed Ivpb - IVPB Q8H-IV [facility] Insulin Aspart 1 vial 03/30/19 22:00 03/31/19 12:42 Novolog Vial Sliding Scale - SQ Not Given ACHS [facility] Protocol Isosorbide Mononitrate 60 mg 04/01/19 10:00 Imdur - PO DAILY [facility] Lisinopril 20 mg 03/31/19 22:00 Prinivil PO BID [facility] Metoprolol Succinate 50 mg 03/31/19 10:00 03/31/19 14:12 Toprol Xl - PO 50 mg DAILY [facility] Administration Multivit/Ca Carb/B Cmplx/FA/Prenat 1 tablet 04/01/19 10:00 Nephro-Brynn - PO DAILY [facility] Nifedipine 60 mg 03/31/19 22:00 Procardia Xl - PO BID [facility] Senna 1 tab 03/31/19 22:00 Senna - PO BID [facility] Sevelamer Carbonate 800 mg 03/31/19 17:30 Renvela - PO TIDCM [facility] Impression 1. ESRD on HD 2. anemia 3. DM 4. HTN 5. right foot transmetatarsal amputation 6. PVD 7. cavernous malformation 8. hx left BKA Plan - HD today - s/p right foot transmetatarsal amputation - cont wound care - monitor bp - renal diet
[2019-04-01] MEDS ORDERED: DEXTROSE 5%-WATER - 50 ML IVPB ONE (13:43)
[2019-04-01] MEDS ORDERED: cefTRIAXone SODIUM 1 GM VIAL ONE (13:43)
[2019-04-01 13:46] LABS: BLOOD UREA NITROGEN 13.4 mg/dL (7-18); CREATININE 2.1 mg/dL (0.55-1.3)
--- NOTE | 2019-04-01 13:58 | PN ---
Progress Note (short form) - Note Progress Note: Anesthesia postop note 69 y/o M s/p tiva for transmetatarsal amputation POD #!, vss, no complaints No anesthesia complications.
[2019-04-01] MEDS: CEFTRIAXONE 1 GM in DEXTROSE 5%-WATER - 50 ML IVPB SCH (14:14)
--- NOTE | 2019-04-01 14:45 | PN ---
Physical Exam: SUBJECTIVE: Patient seen and examined. No acute events overnight. S/p R TMA yesterday. Pt endorses minimal pain in R foot, controlled. No fevers, nausea, vomiting, chills, SOB. OBJECTIVE: Vital Signs Period Temp Pulse Resp BP Sys/Cole Pulse Ox Last 24 Hr 97.5 F-97.9 F 58-66 13-146 90-162/50-83 96-100 GENERAL: The patient is awake, alert, and fully oriented, in no acute distress. HEAD: Normal with no signs of trauma. EYES: PERRL, extraocular movements intact, sclera anicteric, conjunctiva clear. No ptosis. ENT: Ears normal, nares patent, oropharynx clear without exudates, moist mucous membranes. NECK: Trachea midline, full range of motion, supple. LUNGS: Breath sounds equal, clear to auscultation bilaterally, no wheezes, no crackles, no accessory muscle use. HEART: Regular rate and rhythm, S1, S2. 3/6 SM at LUSB and LLSB ABDOMEN: Soft, nontender, distended. Umbilical hernia. + Shifting dullness. EXTREMITIES: L BKA, with clean stomp, well-perfused. R foot in surgical dressing s/p TMA. Defer wound examination to podiatry team. DP 2+. No edema NEUROLOGICAL: Cranial nerves II through XII grossly intact. Normal speech, gait not observed. PSYCH: Normal mood, normal affect. SKIN: Warm, dry, normal turgor, no rashes or lesions noted Laboratory Results - last 24 hr CBC,CMP WBC 7.7 K/mm3 (4.0-10.0) 04/01/19 10:05 RBC 2.96 M/mm3 (4.00-5.60) L 04/01/19 10:05 Hgb 10.5 GM/dL (11.7-16.9) L 04/01/19 10:05 Hct 30.7 % (35.4-49) L 04/01/19 10:05 MCV 103.5 fl (80-96) H 04/01/19 10:05 MCH 35.3 pg (25.7-33.7) H 04/01/19 10:05 MCHC 34.1 g/dl (32.0-35.9) 04/01/19 10:05 RDW 15.4 % (11.9-15.9) 04/01/19 10:05 Plt Count 321 K/MM3 (134-434) 04/01/19 10:05 MPV 8.5 fl (7.5-11.1) D 04/01/19 10:05 Absolute Neuts (auto) 5.5 K/mm3 (1.5-8.0) 03/30/19 16:22 Neutrophils % 73.9 % (42.8-82.8) 03/30/19 16:22 Lymphocytes % 11.3 % (8-40) 03/30/19 16:22 Monocytes % 12.3 % (3.8-10.2) H 03/30/19 16:22 Eosinophils % 2.0 % (0-4.5) 03/30/19 16:22 Basophils % 0.5 % (0-2.0) 03/30/19 16:22 Nucleated RBC % 0 % (0-0) 03/30/19 16:22 Sodium 136 mmol/L (136-145) 04/01/19 10:05 Potassium 4.5 mmol/L (3.5-5.1) 04/01/19 10:05 Chloride 99 mmol/L (98-107) 04/01/19 10:05 Carbon Dioxide 29 mmol/L (21-32) 04/01/19 10:05 Anion Gap 9 MMOL/L (8-16) 04/01/19 10:05 BUN 13.4 mg/dL (7-18) 04/01/19 12:40 Creatinine 2.1 mg/dL (0.55-1.3) H 04/01/19 12:40 Est GFR (CKD-EPI)AfAm 35.63 04/01/19 12:40 Est GFR (CKD-EPI)NonAf 30.74 04/01/19 12:40 POC Glucometer 185 UNITS (80-120) 04/01/19 06:01 Random Glucose 175 mg/dL (74-106) H 04/01/19 10:05 Hemoglobin A1c % 4.5 % (4.2-6.3) 03/31/19 07:13 Calcium 8.9 mg/dL (8.5-10.1) 04/01/19 10:05 Phosphorus 4.3 mg/dL (2.5-4.9) 03/31/19 07:13 Magnesium 2.2 mg/dL (1.8-2.4) 03/31/19 07:13 Total Bilirubin 0.5 mg/dL (0.2-1) 04/01/19 10:05 GGT 216 U/L (5-85) H 03/30/19 15:00 AST 20 U/L (15-37) 04/01/19 10:05 ALT 18 U/L (13-61) 04/01/19 10:05 Alkaline Phosphatase 175 U/L (45-117) H 04/01/19 10:05 C-Reactive Protein 8.4 MG/DL (0.00-0.3) H 03/30/19 15:00 Total Protein 6.9 g/dl (6.4-8.2) 04/01/19 10:05 Albumin 2.8 g/dl (3.4-5.0) L 04/01/19 10:05 Active Medications Acetaminophen (Tylenol -) 650 mg PO Q4H PRN PRN Reason: PAIN LEVEL 1-5 Last Admin: 04/01/19 01:44 Dose: 650 mg Aspirin (Ecotrin -) 81 mg PO DAILY [facility] Last Admin: 04/01/19 12:34 Dose: Not Given Atorvastatin Calcium (Lipitor -) 80 mg PO HS [facility] Last Admin: 03/31/19 22:32 Dose: 80 mg Calcitriol (Rocaltrol -) 0.25 mcg PO DAILY [facility] Last Admin: 04/01/19 12:36 Dose: Not Given Docusate Sodium (Colace -) 100 mg PO TID [facility] Last Admin: 04/01/19 06:38 Dose: 100 mg Fentanyl (Sublimaze Injection -) 25 mcg IVPUSH [id number] PRN PRN Reason: PAIN-PACU ORDER X 4 DOSES ONLY Ferrous Sulfate (Feosol -) 325 mg PO BIDWM [facility] Last Admin: 04/01/19 09:01 Dose: Not Given Hydralazine HCl (Apresoline -) 100 mg PO TID [facility] Last Admin: 04/01/19 06:38 Dose: 100 mg Sodium Chloride (Normal Saline -) 250 mls @ 3,000 mls/hr IV PRN PRN PRN Reason: Hypotension during Dialysis Stop: 07/17/19 17:49 Ceftriaxone Sodium 1 gm/ (Dextrose) 50 mls @ 100 mls/hr IVPB DAILY [facility]; Protocol Metronidazole (Flagyl 500mg Premixed Ivpb -) 500 mg in 100 mls @ 100 mls/hr IVPB Q8H-IV [facility] Last Admin: 04/01/19 01:34 Dose: 100 mls/hr Insulin Aspart (Novolog Vial Sliding Scale -) 1 vial SQ ACHS [facility]; Protocol Last Admin: 04/01/19 12:37 Dose: Not Given Isosorbide Mononitrate (Imdur -) 60 mg PO DAILY [facility] Last Admin: 04/01/19 12:35 Dose: Not Given Lisinopril (Prinivil) 20 mg PO BID [facility] Last Admin: 04/01/19 12:35 Dose: Not Given Metoprolol Succinate (Toprol Xl -) 50 mg PO DAILY [facility] Last Admin: 04/01/19 12:37 Dose: Not Given Multivit/Ca Carb/B Cmplx/FA/Prenat (Nephro-Brynn -) 1 tablet PO DAILY [facility] Last Admin: 04/01/19 12:35 Dose: Not Given Nifedipine (Procardia Xl -) 60 mg PO BID [facility] Last Admin: 04/01/19 12:36 Dose: Not Given Ondansetron HCl (Zofran Injection) 4 mg IVPUSH Q6H PRN PRN Reason: NAUSEA AND/OR VOMITING Senna (Senna -) 1 tab PO BID [facility] Last Admin: 04/01/19 12:37 Dose: Not Given Sevelamer Carbonate (Renvela -) 800 mg PO TIDCM [facility] Last Admin: 04/01/19 12:37 Dose: Not Given ASSESSMENT/PLAN: The patient is a 69 yo male with 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 #S/p R foot TMA (Dr. Garcia) POD #1, pt endorses mild pain that is controlled Carmen-opeartive abx Ceftriaxone/Flagyl per ID Wound and bone cx pending Hep and HIV screen ordered per podiatry #ESRD dialysis MWF Cr 2.1 s/p HD today. Baseline varies in upper 3s to low 6s. Trend Cr, Mg, Ph Monitor Is and Os Renal on board #HTN Cont hydralazine, lisinopril, and toprolol Resume home medications nifedipine and Imdur #PVD Cont lipitor 80mg po #DM BG today 175, HbA1c: 4.5% Cont SSI #DVT prophylaxis SCDs #FEN No fluids Low sodium diet as tolerated Visit type - Emergency Visit Emergency Visit: No - New Patient This patient is new to me today: No - Critical Care Critical Care patient: No ATTENDING PHYSICIAN STATEMENT I saw and evaluated the patient. I reviewed the resident's note and discussed the case with the resident. I agree with the resident's findings and plan as documented. SUBJECTIVE: OBJECTIVE: ASSESSMENT AND PLAN:
--- NOTE | 2019-04-01 17:02 | PN ---
Progress Note (short form) - Note Progress Note: 69 y/o male POD #1 s/p right TMA. State he has had minimal pain. Denies any other complaints. No post op anesthesia events noted overnight. Tolerated porcedure well. O: Dressing c/d/i; no strikethrough noted, mild sanguin drainage noted, no purulence, no malodor, no streaking, no erythema, no signs of infection; no necrosis to the flap noted, sutures intact, no dehiscence noted A: POD 1 Right tma P: Evaluated and reviewed dressing changed; can leave c/d/i until follow up no signs of necrosis at this time can wbat to the heel with surgical shoe. Will f/u Once d/c will need f/u in the wound care center with Dr. Garcia.
[2019-04-01] MEDS: ATORVASTATIN CA 80 MG TABLET (FP) PO SCH (21:10)
[2019-04-02] MEDS: ACETAMINOPHEN 325 MG TABLET (FP) PO PRN (06:00)
[2019-04-02] MEDS: DOCUSATE SODIUM 100 MG CAPSULE (FP) PO SCH ×4 (06:00→21:39)
[2019-04-02] MEDS: hydrALAZINE HCL 50 MG TABLET (FP) PO SCH ×3 (06:03→21:34)
[2019-04-02] MEDS: INSULIN SLIDING SCALE (NOVOLOG) 1 VIAL SQ SCH ×4 (06:20→21:35)
[2019-04-02 07:11] LABS: HEP A AB, IGM Negative (Negative)
[2019-04-02 07:56] LABS: HEMATOCRIT 33.5 % (35.4-49); HEMOGLOBIN 11.3 GM/dL (11.7-16.9); MCH 35.6 pg (25.7-33.7); MCHC 33.8 g/dl (32.0-35.9); MEAN CELL VOLUME 105.1 fl (80-96); MEAN PLT VOLUME 7.9 fl (7.5-11.1); RBC 3.19 M/mm3 (4.00-5.60); RDW 15.5 % (11.9-15.9)
[2019-04-02 08:18] LABS: ALBUMIN 2.9 g/dl (3.4-5.0); BILIRUBIN,TOTAL 0.5 mg/dL (0.2-1); BLOOD UREA NITROGEN 29.4 mg/dL (7-18); CALCIUM 9.3 mg/dL (8.5-10.1); CREATININE 4.3 mg/dL (0.55-1.3); POTASSIUM 3.9 mmol/L (3.5-5.1); TOT PROT 7.1 g/dl (6.4-8.2)
[2019-04-02 08:26] LABS: PLATELET COUNT 298 K/MM3 (134-434)
[2019-04-02] MEDS ORDERED: DEXTROSE 5%-WATER - 50 ML IVPB ONE (08:55)
[2019-04-02] MEDS ORDERED: cefTRIAXone SODIUM 1 GM VIAL ONE (08:55)
[2019-04-02] MEDS: CEFTRIAXONE 1 GM in DEXTROSE 5%-WATER - 50 ML IVPB SCH (10:11)
[2019-04-02] MEDS: SENNOSIDES 8.6MG TABLET (FP) PO SCH ×2 (10:16→21:34)
[2019-04-02] MEDS: FERROUS SO4 325 MG TABLET (FP) PO SCH ×2 (10:16→18:19)
[2019-04-02] MEDS: VITAMIN B COMP W-C 1 EA TABLET PO SCH (10:16)
[2019-04-02] MEDS: LISINOPRIL 20 MG TABLET (FP) PO SCH ×2 (10:16→21:34)
[2019-04-02] MEDS: ISOSORBIDE MONONITRATE 60 MG TAB.SR.24H (FP) PO SCH (10:17)
[2019-04-02] MEDS: ASPIRIN COATED 81 MG TABLET.EC PO SCH (10:17)
[2019-04-02] MEDS: SEVELAMER CARBONATE 800 MG TAB (FP) PO SCH ×3 (10:18→18:20)
[2019-04-02] MEDS: NIFEdipine E.R 60 MG TABLET (UD) PO SCH ×2 (10:19→21:35)
--- NOTE | 2019-04-02 10:23 | PN ---
Physical Exam: SUBJECTIVE: Patient seen and examined. POD #2. No acute events overnight. Pt endorses 7/10 pain in R foot, unchanged from yesterday. No other complaints at this time. OBJECTIVE: Vital Signs Period Temp Pulse Resp BP Sys/Cole Pulse Ox Last 24 Hr 97.9 F-98.4 F 64-74 16-20 104-141/53-64 GENERAL: The patient is awake, alert, and fully oriented, in no acute distress. HEAD: Normal with no signs of trauma. EYES: PERRL, extraocular movements intact, sclera anicteric, conjunctiva clear. No ptosis. ENT: Ears normal, nares patent, oropharynx clear without exudates, moist mucous membranes. NECK: Trachea midline, full range of motion, supple. LUNGS: Breath sounds equal, clear to auscultation bilaterally, no wheezes, no crackles, no accessory muscle use. HEART: Regular rate and rhythm, S1, S2. 3/6 SM at LUSB and LLSB ABDOMEN: Soft, nontender, distended. Umbilical hernia. + Shifting dullness. EXTREMITIES: L BKA, with clean stomp, well-perfused. R foot in surgical dressing s/p TMA. Defer wound examination to podiatry team (clean, dry, intact per team). DP 2+. No edema NEUROLOGICAL: Cranial nerves II through XII grossly intact. Normal speech, gait not observed. PSYCH: Normal mood, normal affect. SKIN: Warm, dry, normal turgor, no rashes or lesions noted Laboratory Results - last 24 hr Active Medications Acetaminophen (Tylenol -) 650 mg PO Q4H PRN PRN Reason: PAIN LEVEL 1-5 Last Admin: 04/02/19 06:00 Dose: 650 mg Aspirin (Ecotrin -) 81 mg PO DAILY [facility] Last Admin: 04/01/19 12:34 Dose: Not Given Atorvastatin Calcium (Lipitor -) 80 mg PO HS [facility] Last Admin: 04/01/19 21:10 Dose: 80 mg Calcitriol (Rocaltrol -) 0.25 mcg PO DAILY [facility] Last Admin: 04/01/19 12:36 Dose: Not Given Docusate Sodium (Colace -) 100 mg PO TID [facility] Last Admin: 04/02/19 06:00 Dose: Not Given Fentanyl (Sublimaze Injection -) 25 mcg IVPUSH [id number] PRN PRN Reason: PAIN-PACU ORDER X 4 DOSES ONLY Ferrous Sulfate (Feosol -) 325 mg PO BIDWM [facility] Last Admin: 04/01/19 18:03 Dose: 325 mg Hydralazine HCl (Apresoline -) 100 mg PO TID [facility] Last Admin: 04/02/19 06:03 Dose: 100 mg Sodium Chloride (Normal Saline -) 250 mls @ 3,000 mls/hr IV PRN PRN PRN Reason: Hypotension during Dialysis Stop: 04/01/19 17:49 Ceftriaxone Sodium 1 gm/ (Dextrose) 50 mls @ 100 mls/hr IVPB DAILY [facility]; Protocol Last Admin: 04/02/19 10:11 Dose: 100 mls/hr Metronidazole (Flagyl 500mg Premixed Ivpb -) 500 mg in 100 mls @ 100 mls/hr IVPB Q8H-IV [facility] Last Admin: 04/02/19 01:43 Dose: 100 mls/hr Insulin Aspart (Novolog Vial Sliding Scale -) 1 vial SQ ACHS [facility]; Protocol Last Admin: 04/02/19 06:20 Dose: Not Given Isosorbide Mononitrate (Imdur -) 60 mg PO DAILY [facility] Last Admin: 04/01/19 12:35 Dose: Not Given Lisinopril (Prinivil) 20 mg PO BID [facility] Last Admin: 04/01/19 21:10 Dose: 20 mg Metoprolol Succinate (Toprol Xl -) 50 mg PO DAILY [facility] Last Admin: 04/01/19 12:37 Dose: Not Given Multivit/Ca Carb/B Cmplx/FA/Prenat (Nephro-Brynn -) 1 tablet PO DAILY [facility] Last Admin: 04/01/19 12:35 Dose: Not Given Nifedipine (Procardia Xl -) 60 mg PO BID [facility] Last Admin: 04/01/19 21:11 Dose: 60 mg Ondansetron HCl (Zofran Injection) 4 mg IVPUSH Q6H PRN PRN Reason: NAUSEA AND/OR VOMITING Senna (Senna -) 1 tab PO BID [facility] Last Admin: 04/01/19 21:10 Dose: 1 tab Sevelamer Carbonate (Renvela -) 800 mg PO TIDCM [facility] Last Admin: 04/01/19 18:04 Dose: 800 mg ASSESSMENT/PLAN: The patient is a 69 yo male with 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 #S/p R foot TMA (Dr. Garcia) POD #2, pt endorses mild pain that is controlled Carmen-opeartive abx Ceftriaxone/Flagyl per ID Wound and bone cx pending - no growth 24 hours, gram stains neg Hep and HIV screen neg #ESRD dialysis MWF Cr 4.3 s/p HD yesterday. Baseline varies in upper 3s to low 6s. Trend Cr, Mg, Ph Monitor Is and Os Renal on board #HTN Cont hydralazine, lisinopril, and toprolol Resume home medications nifedipine and Imdur #PVD Cont lipitor 80mg po #DM BG today 175, HbA1c: 4.5% Cont SSI #DVT prophylaxis SCDs #FEN No fluids Low sodium diet as tolerated Visit type - Emergency Visit Emergency Visit: No - New Patient This patient is new to me today: No - Critical Care Critical Care patient: No ATTENDING PHYSICIAN STATEMENT I saw and evaluated the patient. I reviewed the resident's note and discussed the case with the resident. I agree with the resident's findings and plan as documented. SUBJECTIVE: OBJECTIVE: ASSESSMENT AND PLAN:
[2019-04-02] MEDS: CALCITRIOL 0.25 MCG CAPSULE (FP) PO SCH (11:59)
--- NOTE | 2019-04-02 15:38 | PN ---
Progress Note, Physician History of Present Illness: Pt seen and examined at bedside. He is awake and alert. He denies shortness of breath. - Current Medication List Current Medications: Active Medications Acetaminophen (Tylenol -) 650 mg PO Q4H PRN PRN Reason: PAIN LEVEL 1-5 Last Admin: 04/02/19 06:00 Dose: 650 mg Aspirin (Ecotrin -) 81 mg PO DAILY [facility] Last Admin: 04/02/19 10:17 Dose: 81 mg Atorvastatin Calcium (Lipitor -) 80 mg PO HS [facility] Last Admin: 04/01/19 21:10 Dose: 80 mg Calcitriol (Rocaltrol -) 0.25 mcg PO DAILY [facility] Last Admin: 04/02/19 11:59 Dose: 0.25 mcg Docusate Sodium (Colace -) 100 mg PO TID [facility] Last Admin: 04/02/19 15:16 Dose: 100 mg Fentanyl (Sublimaze Injection -) 25 mcg IVPUSH [id number] PRN PRN Reason: PAIN-PACU ORDER X 4 DOSES ONLY Ferrous Sulfate (Feosol -) 325 mg PO BIDWM [facility] Last Admin: 04/02/19 10:16 Dose: 325 mg Hydralazine HCl (Apresoline -) 100 mg PO TID [facility] Last Admin: 04/02/19 15:16 Dose: 100 mg Sodium Chloride (Normal Saline -) 250 mls @ 3,000 mls/hr IV PRN PRN PRN Reason: Hypotension during Dialysis Stop: 04/01/19 17:49 Ceftriaxone Sodium 1 gm/ (Dextrose) 50 mls @ 100 mls/hr IVPB DAILY [facility]; Protocol Last Admin: 04/02/19 10:11 Dose: 100 mls/hr Metronidazole (Flagyl 500mg Premixed Ivpb -) 500 mg in 100 mls @ 100 mls/hr IVPB Q8H-IV [facility] Last Admin: 04/02/19 10:18 Dose: 100 mls/hr Insulin Aspart (Novolog Vial Sliding Scale -) 1 vial SQ ACHS [facility]; Protocol Last Admin: 04/02/19 13:15 Dose: 2 units Isosorbide Mononitrate (Imdur -) 60 mg PO DAILY [facility] Last Admin: 04/02/19 10:17 Dose: 60 mg Lisinopril (Prinivil) 20 mg PO BID [facility] Last Admin: 04/02/19 10:16 Dose: 20 mg Metoprolol Succinate (Toprol Xl -) 50 mg PO DAILY [facility] Last Admin: 04/02/19 10:17 Dose: 50 mg Multivit/Ca Carb/B Cmplx/FA/Prenat (Nephro-Brynn -) 1 tablet PO DAILY [facility] Last Admin: 04/02/19 10:16 Dose: 1 tablet Nifedipine (Procardia Xl -) 60 mg PO BID [facility] Last Admin: 04/02/19 10:19 Dose: 60 mg Ondansetron HCl (Zofran Injection) 4 mg IVPUSH Q6H PRN PRN Reason: NAUSEA AND/OR VOMITING Senna (Senna -) 1 tab PO BID [facility] Last Admin: 04/02/19 10:16 Dose: 1 tab Sevelamer Carbonate (Renvela -) 800 mg PO TIDCM [facility] Last Admin: 04/02/19 13:16 Dose: 800 mg - Objective Vital Signs: Vital Signs Temperature 97.4 F L 04/02/19 14:27 Pulse Rate 63 04/02/19 14:27 Respiratory Rate 18 04/02/19 14:27 Blood Pressure 114/53 L 04/02/19 14:27 O2 Sat by Pulse Oximetry (%) 100 03/31/19 21:30 Constitutional: Yes: Calm Eyes: Yes: Conjunctiva Clear HENT: Yes: Atraumatic Neck: Yes: Supple Cardiovascular: Yes: S1, S2 Respiratory: Yes: CTA Bilaterally Gastrointestinal: Yes: Normal Bowel Sounds, Soft Genitourinary: Yes: WNL Musculoskeletal: Yes: Other (left bka, right foot dressing in place) Edema: No Wound/Incision: Yes: Dressing Dry and Intact Neurological: Yes: Oriented Psychiatric: Yes: Oriented Labs: CBC, BMP 04/02/19 07:15 04/02/19 07:00 INR, PTT INR 1.06 (0.83-1.09) 03/30/19 16:22 Problem List - Problems (1) Gangrene Code(s): I96 - GANGRENE, NOT ELSEWHERE CLASSIFIED (2) ESRD (end stage renal disease) Code(s): N18.6 - END STAGE RENAL DISEASE Assessment/Plan Current Medications Generic Name Dose Route Start Last Admin Trade Name Freq PRN Reason Stop Dose Admin Acetaminophen 650 mg 03/31/19 20:24 04/02/19 06:00 Tylenol - PO 650 mg Q4H PRN Administration PAIN LEVEL 1-5 Aspirin 81 mg 04/01/19 10:00 04/02/19 10:17 Ecotrin - PO 81 mg DAILY [facility] Administration Atorvastatin Calcium 80 mg 03/31/19 22:00 04/01/19 21:10 Lipitor - PO 80 mg HS [facility] Administration Calcitriol 0.25 mcg 04/01/19 10:00 04/02/19 11:59 Rocaltrol - PO 0.25 mcg DAILY [facility] Administration Docusate Sodium 100 mg 03/31/19 22:00 04/02/19 15:16 Colace - PO 100 mg TID [facility] Administration Fentanyl 25 mcg 03/31/19 19:53 Sublimaze Injection - IVPUSH [id number] PRN PAIN-PACU ORDER X 4 DOSES ONLY Ferrous Sulfate 325 mg 04/01/19 08:00 04/02/19 10:16 Feosol - PO 325 mg BIDWM [facility] Administration Hydralazine HCl 100 mg 03/31/19 22:00 04/02/19 15:16 Apresoline - PO 100 mg TID [facility] Administration Sodium Chloride 250 mls @ 3,000 mls/hr 03/31/19 20:24 Normal Saline - IV 04/01/19 17:49 PRN PRN Hypotension during Dialysis Ceftriaxone Sodium 1 gm/ 50 mls @ 100 mls/hr 04/01/19 10:00 04/02/19 10:11 Dextrose IVPB 100 mls/hr DAILY [facility] Administration Protocol Metronidazole 500 mg in 100 mls @ 100 mls/hr 04/01/19 02:00 04/02/19 10:18 Flagyl 500mg Premixed Ivpb - IVPB 100 mls/hr Q8H-IV [facility] Administration Insulin Aspart 1 vial 03/31/19 22:00 04/02/19 13:15 Novolog Vial Sliding Scale - SQ 2 units ACHS [facility] Administration Protocol Isosorbide Mononitrate 60 mg 04/01/19 10:00 04/02/19 10:17 Imdur - PO 60 mg DAILY [facility] Administration Lisinopril 20 mg 03/31/19 22:00 04/02/19 10:16 Prinivil PO 20 mg BID [facility] Administration Metoprolol Succinate 50 mg 04/01/19 10:00 04/02/19 10:17 Toprol Xl - PO 50 mg DAILY [facility] Administration Multivit/Ca Carb/B Cmplx/FA/Prenat 1 tablet 04/01/19 10:00 04/02/19 10:16 Nephro-Brynn - PO 1 tablet DAILY [facility] Administration Nifedipine 60 mg 03/31/19 22:00 04/02/19 10:19 Procardia Xl - PO 60 mg BID [facility] Administration Ondansetron HCl 4 mg 03/31/19 19:53 Zofran Injection IVPUSH Q6H PRN NAUSEA AND/OR VOMITING Senna 1 tab 03/31/19 22:00 04/02/19 10:16 Senna - PO 1 tab BID [facility] Administration Sevelamer Carbonate 800 mg 04/01/19 08:00 04/02/19 13:16 Renvela - PO 800 mg TIDCM [facility] Administration Impression 1. ESRD on HD 2. anemia 3. DM 4. HTN 5. s/p right foot transmetatarsal amputation 6. PVD 7. cavernous malformation 8. hx left BKA Plan - HD tomorrow - wound care - monitor bp - renal diet
[2019-04-02] MEDS ORDERED: SODIUM CHLORIDE 250 ML IV PRN (15:39)
--- NOTE | 2019-04-02 20:32 | PN ---
Teaching Attending Note Name of Resident: Shannon Dimas ATTENDING PHYSICIAN STATEMENT I saw and evaluated the patient. I reviewed the resident's note and discussed the case with the resident. I agree with the resident's findings and plan as documented. SUBJECTIVE: Patient is feeling better, c/o right foot pain. OBJECTIVE: Vital Signs Temperature 97.3 F L 04/02/19 17:20 Pulse Rate 67 04/02/19 17:20 Respiratory Rate 18 04/02/19 17:20 Blood Pressure 107/56 L 04/02/19 17:20 O2 Sat by Pulse Oximetry (%) 100 03/31/19 21:30 GENERAL: The patient is awake, alert, and fully oriented. s/p surgery. HEAD: Normal with no signs of trauma. EYES: PERRL, extraocular movements intact, sclera anicteric, conjunctiva clear. ENT: Ears normal, oropharynx clear without exudates, moist mucous membranes. NECK: Trachea midline, full range of motion, supple. LUNGS: Breath sounds equal, clear to auscultation bilaterally, no wheezes, no crackles, no accessory muscle use. HEART: Regular rate and rhythm, S1, S2 without murmur, rub or gallop. ABDOMEN: Soft, nontender, nondistended, normoactive bowel sounds, no guarding, no rebound, no hepatosplenomegaly, no masses. EXTREMITIES: 2+ pulses, warm, well-perfused, right foot transmetatarsal amputation NEUROLOGICAL: Cranial nerves II through XII grossly intact. Normal speech, gait not observed. PSYCH: Normal mood, normal affect. SKIN: Warm, dry, normal turgor, no rashes or lesions noted CBCD WBC 9.0 K/mm3 (4.0-10.0) 04/02/19 07:15 RBC 3.19 M/mm3 (4.00-5.60) L 04/02/19 07:15 Hgb 11.3 GM/dL (11.7-16.9) L 04/02/19 07:15 Hct 33.5 % (35.4-49) L 04/02/19 07:15 MCV 105.1 fl (80-96) H 04/02/19 07:15 MCHC 33.8 g/dl (32.0-35.9) 04/02/19 07:15 RDW 15.5 % (11.9-15.9) 04/02/19 07:15 Plt Count 298 K/MM3 (134-434) 04/02/19 07:15 MPV 7.9 fl (7.5-11.1) 04/02/19 07:15 CMP Sodium 141 mmol/L (136-145) 04/02/19 07:00 Potassium 3.9 mmol/L (3.5-5.1) 04/02/19 07:00 Chloride 102 mmol/L (98-107) 04/02/19 07:00 Carbon Dioxide 30 mmol/L (21-32) 04/02/19 07:00 Anion Gap 9 MMOL/L (8-16) 04/02/19 07:00 BUN 29.4 mg/dL (7-18) H 04/02/19 07:00 Creatinine 4.3 mg/dL (0.55-1.3) H 04/02/19 07:00 Random Glucose 146 mg/dL (74-106) H 04/02/19 07:00 Calcium 9.3 mg/dL (8.5-10.1) 04/02/19 07:00 Total Bilirubin 0.5 mg/dL (0.2-1) 04/02/19 07:00 AST 31 U/L (15-37) 04/02/19 07:00 ALT 24 U/L (13-61) 04/02/19 07:00 Alkaline Phosphatase 273 U/L (45-117) H 04/02/19 07:00 Total Protein 7.1 g/dl (6.4-8.2) 04/02/19 07:00 Albumin 2.9 g/dl (3.4-5.0) L 04/02/19 07:00 Current Medications Generic Name Dose Route Start Last Admin Trade Name Freq PRN Reason Stop Dose Admin Acetaminophen 650 mg 03/31/19 20:24 04/02/19 06:00 Tylenol - PO 650 mg Q4H PRN Administration PAIN LEVEL 1-5 Aspirin 81 mg 04/01/19 10:00 04/02/19 10:17 Ecotrin - PO 81 mg DAILY [facility] Administration Atorvastatin Calcium 80 mg 03/31/19 22:00 04/01/19 21:10 Lipitor - PO 80 mg HS [facility] Administration Calcitriol 0.25 mcg 04/01/19 10:00 04/02/19 11:59 Rocaltrol - PO 0.25 mcg DAILY [facility] Administration Docusate Sodium 100 mg 03/31/19 22:00 04/02/19 15:16 Colace - PO 100 mg TID [facility] Administration Fentanyl 25 mcg 03/31/19 19:53 Sublimaze Injection - IVPUSH [id number] PRN PAIN-PACU ORDER X 4 DOSES ONLY Ferrous Sulfate 325 mg 04/01/19 08:00 04/02/19 18:19 Feosol - PO 325 mg BIDWM [facility] Administration Hydralazine HCl 100 mg 03/31/19 22:00 04/02/19 15:16 Apresoline - PO 100 mg TID [facility] Administration Sodium Chloride 250 mls @ 3,000 mls/hr 03/31/19 20:24 Normal Saline - IV 04/01/19 17:49 PRN PRN Hypotension during Dialysis Ceftriaxone Sodium 1 gm/ 50 mls @ 100 mls/hr 04/01/19 10:00 04/02/19 10:11 Dextrose IVPB 100 mls/hr DAILY [facility] Administration Protocol Metronidazole 500 mg in 100 mls @ 100 mls/hr 04/01/19 02:00 04/02/19 18:20 Flagyl 500mg Premixed Ivpb - IVPB 100 mls/hr Q8H-IV [facility] Administration Sodium Chloride 250 mls @ 3,000 mls/hr 04/02/19 15:39 Normal Saline - IV 04/03/19 15:39 PRN PRN Hypotension during Dialysis Insulin Aspart 1 vial 03/31/19 22:00 04/02/19 18:19 Novolog Vial Sliding Scale - SQ 2 units ACHS [facility] Administration Protocol Isosorbide Mononitrate 60 mg 04/01/19 10:00 04/02/19 10:17 Imdur - PO 60 mg DAILY [facility] Administration Lisinopril 20 mg 03/31/19 22:00 04/02/19 10:16 Prinivil PO 20 mg BID [facility] Administration Metoprolol Succinate 50 mg 04/01/19 10:00 04/02/19 10:17 Toprol Xl - PO 50 mg DAILY [facility] Administration Multivit/Ca Carb/B Cmplx/FA/Prenat 1 tablet 04/01/19 10:00 04/02/19 10:16 Nephro-Brynn - PO 1 tablet DAILY [facility] Administration Nifedipine 60 mg 03/31/19 22:00 04/02/19 10:19 Procardia Xl - PO 60 mg BID [facility] Administration Ondansetron HCl 4 mg 03/31/19 19:53 Zofran Injection IVPUSH Q6H PRN NAUSEA AND/OR VOMITING Senna 1 tab 03/31/19 22:00 04/02/19 10:16 Senna - PO 1 tab BID [facility] Administration Sevelamer Carbonate 800 mg 04/01/19 08:00 04/02/19 18:20 Renvela - PO 800 mg TIDCM [facility] Administration Home Medications Medication Instructions Recorded Calcitriol [Calcitriol -] 0.25 mcg PO DAILY #30 capsule 05/27/18 Furosemide [Lasix -] 40 mg PO DAILY #30 tablet 05/27/18 Ferrous Sulfate [Feosol] 325 mg PO BID #60 ud 07/09/18 Sennosides [Senna -] 1 tab PO BID #60 tablet 07/09/18 Atorvastatin Ca [Lipitor] 80 mg PO HS #30 tablet 07/26/18 Docusate Sodium [Colace -] 100 mg PO TID capsule 07/26/18 Hydralazine HCl 100 mg PO TID #90 tablet 07/26/18 Nifedipine ER [Procardia XL -] 60 mg PO BID #60 tab.er.24 07/26/18 Sevelamer HCl [Renagel] 800 mg PO TID 30 Days #90 tablet 07/26/18 Acetaminophen [Tylenol .Regular 650 mg PO Q4H PRN tablet 03/09/19 Strength -] Insulin Sliding Scale [Novolog 1 vial SQ ACHS units 03/09/19 Vial Sliding Scale -] Isosorbide Mononitrate [Imdur -] 60 mg PO DAILY tab.sr.24h 03/09/19 Vitamin B Comp W-C [Nephro-Brynn -] 1 tablet PO DAILY tablet 03/09/19 Lisinopril 20 mg PO BID 03/30/19 Metoprolol Succinate 50 mg PO DAILY 03/30/19 Microbiology 03/31/19 18:35 Bone Gram Stain - Final 03/31/19 18:35 Bone Tissue Culture - Preliminary NO AEROBIC GROWTH, 24 HRS 03/31/19 19:25 Foot - Rt Transmetatarsal Amp. Site Gram Stain - Final 03/31/19 19:25 Foot - Rt Transmetatarsal Amp. Site Wound Culture - Preliminary NO GROWTH OBTAINED AFTER 24 HOURS INCUBATION, REINCUBATED. ASSESSMENT AND PLAN: 69 y/o man with h/o CAD, s/p ND, PVD, ESRD on HD, HTN, HLP, Hep B , DM, Osteomyelitis, s/p angiogram, atherectomy, and angioplasty, now s/p L BKA, and s/p R 2nd toe amputation , who was sent here by Dr. Ye for R 3rd toe gangrene # POD #2 right foot transmetatarsal amputation due to having Gangrenous R 3rd toe and partial gangrene in 4th,5th toes. On IV rocephin and Flagyl continue , ID on the case; on the case. # ESRD: on HD continue on the case # HTN: cont BB, hydralazine, and lisinorpil; nifedipine and Imdur # PVD: cont statin. on Asa and plavix before. DVT px: SCTs
[2019-04-02] MEDS: ATORVASTATIN CA 80 MG TABLET (FP) PO SCH (21:34)
[2019-04-03] MEDS: hydrALAZINE HCL 50 MG TABLET (FP) PO SCH ×2 (05:54→14:36)
[2019-04-03] MEDS: DOCUSATE SODIUM 100 MG CAPSULE (FP) PO SCH ×2 (05:55→14:36)
[2019-04-03] MEDS: INSULIN SLIDING SCALE (NOVOLOG) 1 VIAL SQ SCH ×2 (06:01→12:32)
[2019-04-03 07:45] LABS: ALBUMIN 2.8 g/dl (3.4-5.0); BILIRUBIN,TOTAL 0.6 mg/dL (0.2-1); BLOOD UREA NITROGEN 39.9 mg/dL (7-18); CALCIUM 9.3 mg/dL (8.5-10.1); CREATININE 5.3 mg/dL (0.55-1.3); POTASSIUM 4.6 mmol/L (3.5-5.1)
[2019-04-03 07:46] LABS: HEMATOCRIT 29.7 % (35.4-49); HEMOGLOBIN 10.2 GM/dL (11.7-16.9); MCH 36.1 pg (25.7-33.7); MCHC 34.4 g/dl (32.0-35.9); MEAN CELL VOLUME 104.9 fl (80-96); RBC 2.83 M/mm3 (4.00-5.60); RDW 15.4 % (11.9-15.9); WHITE BLOOD COUNT 8.2 K/mm3 (4.0-10.0)
[2019-04-03 08:29] LABS: PLATELET COUNT 282 K/MM3 (134-434)
--- NOTE | 2019-04-03 08:53 | PN ---
Teaching Attending Note Name of Resident: Shannon Dimas ATTENDING PHYSICIAN STATEMENT I saw and evaluated the patient. I reviewed the resident's note and discussed the case with the resident. I agree with the resident's findings and plan as documented. SUBJECTIVE: Patient is feeling better with no acute distress. no fever or chills, no shortness of breath. OBJECTIVE: Vital Signs Temperature 97.9 F 04/03/19 06:29 Pulse Rate 770 H 04/03/19 06:29 Respiratory Rate 18 04/03/19 06:29 Blood Pressure 129/67 04/03/19 06:29 O2 Sat by Pulse Oximetry (%) 100 03/31/19 21:30 GENERAL: The patient is awake, alert, and fully oriented. s/p surgery. HEAD: Normal with no signs of trauma. EYES: PERRL, extraocular movements intact, sclera anicteric, conjunctiva clear. ENT: Ears normal, oropharynx clear without exudates, moist mucous membranes. NECK: Trachea midline, full range of motion, supple. LUNGS: Breath sounds equal, clear to auscultation bilaterally, no wheezes, no crackles, no accessory muscle use. HEART: Regular rate and rhythm, S1, S2 without murmur, rub or gallop. ABDOMEN: Soft, nontender, nondistended, normoactive bowel sounds, no guarding, no rebound, no hepatosplenomegaly, no masses. EXTREMITIES: 2+ pulses, warm, well-perfused, right foot transmetatarsal amputation NEUROLOGICAL: Cranial nerves II through XII grossly intact. Normal speech, gait not observed. PSYCH: Normal mood, normal affect. SKIN: Warm, dry, normal turgor, no rashes or lesions noted CBCD WBC 8.2 K/mm3 (4.0-10.0) 04/03/19 06:35 RBC 2.83 M/mm3 (4.00-5.60) L 04/03/19 06:35 Hgb 10.2 GM/dL (11.7-16.9) L 04/03/19 06:35 Hct 29.7 % (35.4-49) L 04/03/19 06:35 MCV 104.9 fl (80-96) H 04/03/19 06:35 MCHC 34.4 g/dl (32.0-35.9) 04/03/19 06:35 RDW 15.4 % (11.9-15.9) 04/03/19 06:35 Plt Count 282 K/MM3 (134-434) 04/03/19 06:35 MPV 8.0 fl (7.5-11.1) 04/03/19 06:35 CMP Sodium 139 mmol/L (136-145) 04/03/19 06:35 Potassium 4.6 mmol/L (3.5-5.1) 04/03/19 06:35 Chloride 102 mmol/L (98-107) 04/03/19 06:35 Carbon Dioxide 29 mmol/L (21-32) 04/03/19 06:35 Anion Gap 8 MMOL/L (8-16) 04/03/19 06:35 BUN 39.9 mg/dL (7-18) H 04/03/19 06:35 Creatinine 5.3 mg/dL (0.55-1.3) H 04/03/19 06:35 Random Glucose 141 mg/dL (74-106) H 04/03/19 06:35 Calcium 9.3 mg/dL (8.5-10.1) 04/03/19 06:35 Total Bilirubin 0.6 mg/dL (0.2-1) 04/03/19 06:35 AST 21 U/L (15-37) 04/03/19 06:35 ALT 16 U/L (13-61) 04/03/19 06:35 Alkaline Phosphatase 220 U/L (45-117) H 04/03/19 06:35 Total Protein 7.0 g/dl (6.4-8.2) 04/03/19 06:35 Albumin 2.8 g/dl (3.4-5.0) L 04/03/19 06:35 Current Medications Generic Name Dose Route Start Last Admin Trade Name Freq PRN Reason Stop Dose Admin Acetaminophen 650 mg 03/31/19 20:24 04/02/19 06:00 Tylenol - PO 650 mg Q4H PRN Administration PAIN LEVEL 1-5 Aspirin 81 mg 04/01/19 10:00 04/02/19 10:17 Ecotrin - PO 81 mg DAILY [facility] Administration Atorvastatin Calcium 80 mg 03/31/19 22:00 04/02/19 21:34 Lipitor - PO 80 mg HS [facility] Administration Calcitriol 0.25 mcg 04/01/19 10:00 04/02/19 11:59 Rocaltrol - PO 0.25 mcg DAILY [facility] Administration Docusate Sodium 100 mg 03/31/19 22:00 04/03/19 05:55 Colace - PO Not Given TID [facility] Fentanyl 25 mcg 03/31/19 19:53 Sublimaze Injection - IVPUSH [id number] PRN PAIN-PACU ORDER X 4 DOSES ONLY Ferrous Sulfate 325 mg 04/01/19 08:00 04/02/19 18:19 Feosol - PO 325 mg BIDWM [facility] Administration Hydralazine HCl 100 mg 03/31/19 22:00 04/03/19 05:54 Apresoline - PO 100 mg TID [facility] Administration Sodium Chloride 250 mls @ 3,000 mls/hr 03/31/19 20:24 Normal Saline - IV 04/01/19 17:49 PRN PRN Hypotension during Dialysis Ceftriaxone Sodium 1 gm/ 50 mls @ 100 mls/hr 04/01/19 10:00 04/02/19 10:11 Dextrose IVPB 100 mls/hr DAILY [facility] Administration Protocol Metronidazole 500 mg in 100 mls @ 100 mls/hr 04/01/19 02:00 04/03/19 01:34 Flagyl 500mg Premixed Ivpb - IVPB 100 mls/hr Q8H-IV [facility] Administration Sodium Chloride 250 mls @ 3,000 mls/hr 04/02/19 15:39 Normal Saline - IV 04/03/19 15:39 PRN PRN Hypotension during Dialysis Insulin Aspart 1 vial 03/31/19 22:00 04/03/19 06:01 Novolog Vial Sliding Scale - SQ Not Given ACHS [facility] Protocol Isosorbide Mononitrate 60 mg 04/01/19 10:00 04/02/19 10:17 Imdur - PO 60 mg DAILY [facility] Administration Lisinopril 20 mg 03/31/19 22:00 04/02/19 21:34 Prinivil PO 20 mg BID [facility] Administration Metoprolol Succinate 50 mg 04/01/19 10:00 04/02/19 10:17 Toprol Xl - PO 50 mg DAILY [facility] Administration Multivit/Ca Carb/B Cmplx/FA/Prenat 1 tablet 04/01/19 10:00 04/02/19 10:16 Nephro-Brynn - PO 1 tablet DAILY [facility] Administration Nifedipine 60 mg 03/31/19 22:00 04/02/19 21:35 Procardia Xl - PO 60 mg BID [facility] Administration Ondansetron HCl 4 mg 03/31/19 19:53 Zofran Injection IVPUSH Q6H PRN NAUSEA AND/OR VOMITING Senna 1 tab 03/31/19 22:00 04/02/19 21:34 Senna - PO 1 tab BID [facility] Administration Sevelamer Carbonate 800 mg 04/01/19 08:00 04/02/19 18:20 Renvela - PO 800 mg TIDCM [facility] Administration Home Medications Medication Instructions Recorded Calcitriol [Calcitriol -] 0.25 mcg PO DAILY #30 capsule 05/27/18 Furosemide [Lasix -] 40 mg PO DAILY #30 tablet 05/27/18 Ferrous Sulfate [Feosol] 325 mg PO BID #60 ud 07/09/18 Sennosides [Senna -] 1 tab PO BID #60 tablet 07/09/18 Atorvastatin Ca [Lipitor] 80 mg PO HS #30 tablet 07/26/18 Docusate Sodium [Colace -] 100 mg PO TID capsule 07/26/18 Hydralazine HCl 100 mg PO TID #90 tablet 07/26/18 Nifedipine ER [Procardia XL -] 60 mg PO BID #60 tab.er.24 07/26/18 Sevelamer HCl [Renagel] 800 mg PO TID 30 Days #90 tablet 07/26/18 Acetaminophen [Tylenol .Regular 650 mg PO Q4H PRN tablet 03/09/19 Strength -] Insulin Sliding Scale [Novolog 1 vial SQ ACHS units 03/09/19 Vial Sliding Scale -] Isosorbide Mononitrate [Imdur -] 60 mg PO DAILY tab.sr.24h 03/09/19 Vitamin B Comp W-C [Nephro-Brynn -] 1 tablet PO DAILY tablet 03/09/19 Lisinopril 20 mg PO BID 03/30/19 Metoprolol Succinate 50 mg PO DAILY 03/30/19 ASSESSMENT AND PLAN: 69 y/o man with h/o CAD, s/p IN, PVD, ESRD on HD, HTN, HLP, Hep B , DM, Osteomyelitis, s/p angiogram, atherectomy, and angioplasty, now s/p L BKA, and s/p R 2nd toe amputation , who was sent here by Dr. Ye for R 3rd toe gangrene # POD #3 right foot transmetatarsal amputation due to having Gangrenous R 3rd toe and partial gangrene in 4th,5th toes. s/p IV rocephin and Flagyl. as per ID , will wait for pathology result, otherwise no need for any antibiotics. # ESRD: on HD continue # HTN: cont BB, hydralazine, and lisinorpil; nifedipine and Imdur # PVD: cont statin. on Asa and plavix before. discharge patient home.
[2019-04-03] MEDS ORDERED: PT OWN MED DRAWER 7, Y5N ONE (11:59)
[2019-04-03] MEDS ORDERED: cefTRIAXone SODIUM 1 GM VIAL ONE (12:00)
[2019-04-03] MEDS ORDERED: DEXTROSE 5%-WATER - 50 ML IVPB ONE (12:00)
[2019-04-03] MEDS: CEFTRIAXONE 1 GM in DEXTROSE 5%-WATER - 50 ML IVPB SCH (12:09)
[2019-04-03] MEDS: VITAMIN B COMP W-C 1 EA TABLET PO SCH (12:13)
[2019-04-03] MEDS: ISOSORBIDE MONONITRATE 60 MG TAB.SR.24H (FP) PO SCH (12:13)
[2019-04-03] MEDS: SENNOSIDES 8.6MG TABLET (FP) PO SCH (12:14)
[2019-04-03] MEDS: LISINOPRIL 20 MG TABLET (FP) PO SCH (12:14)
[2019-04-03] MEDS: FERROUS SO4 325 MG TABLET (FP) PO SCH (12:14)
[2019-04-03] MEDS: ASPIRIN COATED 81 MG TABLET.EC PO SCH (12:15)
[2019-04-03] MEDS: NIFEdipine E.R 60 MG TABLET (UD) PO SCH (12:15)
[2019-04-03] MEDS: SEVELAMER CARBONATE 800 MG TAB (FP) PO SCH ×2 (12:16)
[2019-04-03] MEDS: CALCITRIOL 0.25 MCG CAPSULE (FP) PO SCH (12:16)
[2019-04-03 12:56] LABS: BLOOD UREA NITROGEN 13.1 mg/dL (7-18); CREATININE 1.9 mg/dL (0.55-1.3)
[2019-04-03 13:59] VITALS: BP 147/96; PULSE 72; TEMP 98
--- NOTE | 2019-04-03 14:42 | PN ---
Progress Note, Physician History of Present Illness: Pt seen and examined at bedside. He is awake and alert. He tolerated HD. - Current Medication List Current Medications: Active Medications Acetaminophen (Tylenol -) 650 mg PO Q4H PRN PRN Reason: PAIN LEVEL 1-5 Last Admin: 04/02/19 06:00 Dose: 650 mg Aspirin (Ecotrin -) 81 mg PO DAILY [facility] Last Admin: 04/03/19 12:15 Dose: 81 mg Atorvastatin Calcium (Lipitor -) 80 mg PO HS [facility] Last Admin: 04/02/19 21:34 Dose: 80 mg Calcitriol (Rocaltrol -) 0.25 mcg PO DAILY [facility] Last Admin: 04/03/19 12:16 Dose: 0.25 mcg Docusate Sodium (Colace -) 100 mg PO TID [facility] Last Admin: 04/03/19 14:36 Dose: 100 mg Fentanyl (Sublimaze Injection -) 25 mcg IVPUSH [id number] PRN PRN Reason: PAIN-PACU ORDER X 4 DOSES ONLY Ferrous Sulfate (Feosol -) 325 mg PO BIDWM [facility] Last Admin: 04/03/19 12:14 Dose: 325 mg Hydralazine HCl (Apresoline -) 100 mg PO TID [facility] Last Admin: 04/03/19 14:36 Dose: 100 mg Sodium Chloride (Normal Saline -) 250 mls @ 3,000 mls/hr IV PRN PRN PRN Reason: Hypotension during Dialysis Stop: 04/01/19 17:49 Ceftriaxone Sodium 1 gm/ (Dextrose) 50 mls @ 100 mls/hr IVPB DAILY [facility]; Protocol Last Admin: 04/03/19 12:09 Dose: 100 mls/hr Metronidazole (Flagyl 500mg Premixed Ivpb -) 500 mg in 100 mls @ 100 mls/hr IVPB Q8H-IV [facility] Last Admin: 04/03/19 12:17 Dose: 100 mls/hr Sodium Chloride (Normal Saline -) 250 mls @ 3,000 mls/hr IV PRN PRN PRN Reason: Hypotension during Dialysis Stop: 04/03/19 15:39 Insulin Aspart (Novolog Vial Sliding Scale -) 1 vial SQ ACHS [facility]; Protocol Last Admin: 04/03/19 12:32 Dose: 2 units Isosorbide Mononitrate (Imdur -) 60 mg PO DAILY [facility] Last Admin: 04/03/19 12:13 Dose: 60 mg Lisinopril (Prinivil) 20 mg PO BID [facility] Last Admin: 04/03/19 12:14 Dose: 20 mg Metoprolol Succinate (Toprol Xl -) 50 mg PO DAILY [facility] Last Admin: 04/03/19 12:13 Dose: 50 mg Multivit/Ca Carb/B Cmplx/FA/Prenat (Nephro-Brynn -) 1 tablet PO DAILY [facility] Last Admin: 04/03/19 12:13 Dose: 1 tablet Nifedipine (Procardia Xl -) 60 mg PO BID [facility] Last Admin: 04/03/19 12:15 Dose: 60 mg Ondansetron HCl (Zofran Injection) 4 mg IVPUSH Q6H PRN PRN Reason: NAUSEA AND/OR VOMITING Senna (Senna -) 1 tab PO BID [facility] Last Admin: 04/03/19 12:14 Dose: 1 tab Sevelamer Carbonate (Renvela -) 800 mg PO TIDCM [facility] Last Admin: 04/03/19 12:16 Dose: 800 mg - Objective Vital Signs: Vital Signs Temperature 98.0 F 04/03/19 13:58 Pulse Rate 72 04/03/19 13:58 Respiratory Rate 18 04/03/19 13:58 Blood Pressure 147/96 04/03/19 13:58 O2 Sat by Pulse Oximetry (%) 100 03/31/19 21:30 Constitutional: Yes: Calm Eyes: Yes: Conjunctiva Clear HENT: Yes: Atraumatic Neck: Yes: Supple Cardiovascular: Yes: S1, S2 Respiratory: Yes: CTA Bilaterally Gastrointestinal: Yes: Soft Genitourinary: Yes: WNL Extremities: Yes: Other (left bka, right foot dressing in place) Edema: No Neurological: Yes: Oriented Psychiatric: Yes: Oriented Labs: CBC, BMP 04/03/19 06:35 04/03/19 11:33 INR, PTT INR 1.06 (0.83-1.09) 03/30/19 16:22 Problem List - Problems (1) Gangrene Code(s): I96 - GANGRENE, NOT ELSEWHERE CLASSIFIED (2) ESRD (end stage renal disease) Code(s): N18.6 - END STAGE RENAL DISEASE Assessment/Plan Current Medications Generic Name Dose Route Start Last Admin Trade Name Freq PRN Reason Stop Dose Admin Acetaminophen 650 mg 03/31/19 20:24 04/02/19 06:00 Tylenol - PO 650 mg Q4H PRN Administration PAIN LEVEL 1-5 Aspirin 81 mg 04/01/19 10:00 04/03/19 12:15 Ecotrin - PO 81 mg DAILY [facility] Administration Atorvastatin Calcium 80 mg 03/31/19 22:00 04/02/19 21:34 Lipitor - PO 80 mg HS [facility] Administration Calcitriol 0.25 mcg 04/01/19 10:00 04/03/19 12:16 Rocaltrol - PO 0.25 mcg DAILY [facility] Administration Docusate Sodium 100 mg 03/31/19 22:00 04/03/19 14:36 Colace - PO 100 mg TID [facility] Administration Fentanyl 25 mcg 03/31/19 19:53 Sublimaze Injection - IVPUSH [id number] PRN PAIN-PACU ORDER X 4 DOSES ONLY Ferrous Sulfate 325 mg 04/01/19 08:00 04/03/19 12:14 Feosol - PO 325 mg BIDWM [facility] Administration Hydralazine HCl 100 mg 03/31/19 22:00 04/03/19 14:36 Apresoline - PO 100 mg TID [facility] Administration Sodium Chloride 250 mls @ 3,000 mls/hr 03/31/19 20:24 Normal Saline - IV 04/01/19 17:49 PRN PRN Hypotension during Dialysis Ceftriaxone Sodium 1 gm/ 50 mls @ 100 mls/hr 04/01/19 10:00 04/03/19 12:09 Dextrose IVPB 100 mls/hr DAILY [facility] Administration Protocol Metronidazole 500 mg in 100 mls @ 100 mls/hr 04/01/19 02:00 04/03/19 12:17 Flagyl 500mg Premixed Ivpb - IVPB 100 mls/hr Q8H-IV [facility] Administration Sodium Chloride 250 mls @ 3,000 mls/hr 04/02/19 15:39 Normal Saline - IV 04/03/19 15:39 PRN PRN Hypotension during Dialysis Insulin Aspart 1 vial 03/31/19 22:00 04/03/19 12:32 Novolog Vial Sliding Scale - SQ 2 units ACHS [facility] Administration Protocol Isosorbide Mononitrate 60 mg 04/01/19 10:00 04/03/19 12:13 Imdur - PO 60 mg DAILY [facility] Administration Lisinopril 20 mg 03/31/19 22:00 04/03/19 12:14 Prinivil PO 20 mg BID [facility] Administration Metoprolol Succinate 50 mg 04/01/19 10:00 04/03/19 12:13 Toprol Xl - PO 50 mg DAILY [facility] Administration Multivit/Ca Carb/B Cmplx/FA/Prenat 1 tablet 04/01/19 10:00 04/03/19 12:13 Nephro-Brynn - PO 1 tablet DAILY [facility] Administration Nifedipine 60 mg 03/31/19 22:00 04/03/19 12:15 Procardia Xl - PO 60 mg BID [facility] Administration Ondansetron HCl 4 mg 03/31/19 19:53 Zofran Injection IVPUSH Q6H PRN NAUSEA AND/OR VOMITING Senna 1 tab 03/31/19 22:00 04/03/19 12:14 Senna - PO 1 tab BID [facility] Administration Sevelamer Carbonate 800 mg 04/01/19 08:00 04/03/19 12:16 Renvela - PO 800 mg TIDCM [facility] Administration Impression 1. ESRD on HD 2. anemia 3. DM 4. HTN 5. s/p right foot transmetatarsal amputation 6. PVD 7. cavernous malformation 8. hx left BKA Plan - HD today - monitor bp - pt tolerated HD - renal diet - wound care - will see on Saturday
--- NOTE | 2019-04-03 14:48 | DS ---
Physical Exam: SUBJECTIVE: Patient seen and examined. POD #3. No acute events overnight. Pt endorses 6/10 pain in R foot, unchanged from yesterday. No other complaints at this time. OBJECTIVE: Vital Signs Period Temp Pulse Resp BP Sys/Cole Pulse Ox Last 24 Hr 97.3 F-98.0 F 65-770 16-18 107-162/56-96 PHYSICAL EXAM GENERAL: The patient is awake, alert, and fully oriented, in no acute distress. HEAD: Normal with no signs of trauma. EYES: PERRL, extraocular movements intact, sclera anicteric, conjunctiva clear. No ptosis. ENT: Ears normal, nares patent, oropharynx clear without exudates, moist mucous membranes. NECK: Trachea midline, full range of motion, supple. LUNGS: Breath sounds equal, clear to auscultation bilaterally, no wheezes, no crackles, no accessory muscle use. HEART: Regular rate and rhythm, S1, S2. 3/6 SM at LUSB and LLSB ABDOMEN: Soft, nontender, distended. Umbilical hernia. + Shifting dullness. EXTREMITIES: L BKA, with clean stomp, well-perfused. R foot in surgical dressing s/p TMA. Defer wound examination to podiatry team (clean, dry, intact per team). DP 2+. No edema NEUROLOGICAL: Cranial nerves II through XII grossly intact. Normal speech, gait not observed. PSYCH: Normal mood, normal affect. SKIN: Warm, dry, normal turgor, no rashes or lesions noted LABS Laboratory Results - last 24 hr 04/01/19 04/02/19 04/02/19 17:02 18:15 20:22 WBC RBC Hgb Hct MCV MCH MCHC RDW Plt Count MPV Sodium Potassium Chloride Carbon Dioxide Anion Gap BUN Creatinine Est GFR (CKD-EPI)AfAm Est GFR (CKD-EPI)NonAf POC Glucometer 180 157 185 Random Glucose Calcium Total Bilirubin AST ALT Alkaline Phosphatase Total Protein Albumin 04/03/19 04/03/19 04/03/19 05:33 06:35 06:35 WBC 8.2 RBC 2.83 L Hgb 10.2 L Hct 29.7 L MCV 104.9 H MCH 36.1 H MCHC 34.4 RDW 15.4 Plt Count 282 MPV 8.0 Sodium 139 Potassium 4.6 Chloride 102 Carbon Dioxide 29 Anion Gap 8 BUN 39.9 H Creatinine 5.3 H Est GFR (CKD-EPI)AfAm 11.63 Est GFR (CKD-EPI)NonAf 10.04 POC Glucometer 128 Random Glucose 141 H Calcium 9.3 Total Bilirubin 0.6 AST 21 ALT 16 Alkaline Phosphatase 220 H Total Protein 7.0 Albumin 2.8 L 04/03/19 04/03/19 11:33 12:31 WBC RBC Hgb Hct MCV MCH MCHC RDW Plt Count MPV Sodium Potassium Chloride Carbon Dioxide Anion Gap BUN 13.1 Creatinine 1.9 H Est GFR (CKD-EPI)AfAm 40.21 Est GFR (CKD-EPI)NonAf 34.70 POC Glucometer 169 Random Glucose Calcium Total Bilirubin AST ALT Alkaline Phosphatase Total Protein Albumin HOSPITAL COURSE: Date of Admission:03/30/19 The patient is a 69 yo male with history of L BKA and R 2nd toe amputation, DM, PVD, ESRD dialysis, diastolic CHF, HTN, and HLD who was admitted to the hospital for R TMA. Per surgery and podiatry team, procedure went well with no complications. Surgical site is clean, dry and intact. Pt was treated with mayco- operative Ceftriaxone/Flagyl. He will be discharged without abx, per ID. Pt receives HD MWF. He continued his dialysis while admitted and was monitored closely by primary and nephro team. Pt has had no fevers or signs of infection, his pain is controlled with Tylenol. He is clinically stable to be discharged. Pt will follow up with podiatry in a few days. Bone bx: Group D strep/enterococcus Wound cx: neg Date of Discharge: 04/03/19 Minutes to complete discharge: 45 Discharge Summary Reason For Visit: LT FOOT AMPUTATION Current Active Problems Diabetic foot infection (Acute) Gangrene (Acute) Gangrene of toe of left foot (Acute) Gangrene of toe of right foot (Acute) Anemia (Chronic) Congestive heart failure (Chronic) Diabetes (Chronic) Diastolic CHF (Chronic) ESRD (end stage renal disease) (Chronic) ESRD needing dialysis (Chronic) Hepatitis (Chronic) History of left below knee amputation (Chronic) Hypertension (Chronic) PAD (peripheral artery disease) (Chronic) Transaminitis (Chronic) 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 La ciruga sali davon, y sin complicaciones. Ling pie no muestra signos de infeccin en noemi momento. Debes mantener tu pie limpio y seco. Ghislaine un seguimiento con ling podlogo, el Dr. Garcia, el . Debe reanudar todos los medicamentos caseros segn lo prescrito. Debe hacer un seguimiento con ling proveedor de atencin primaria en ace semana. Regrese al departamento de emergencias si experimenta dolor o empeoramiento de los sntomas. You were admitted to the hospital for surgery on your right foot. The surgery went well, and with no complications. Your foot does not show signs of infection at this time. You should keep your foot clean and dry. Follow up with your director of flight operations, Dr. Garcia, on SaturdayApril 07. You should resume all home medications as prescibed. You should follow up with your primary care provider in one week. Return to the emergency department if you experience any pain or worsening of any symptoms. Referrals: Hakan Garcia MD [Staff Physician] - Disposition: HOME - Home Medications Comprehensive Discharge Medication List: Ambulatory Orders Calcitriol [Calcitriol -] 0.25 mcg PO DAILY #30 capsule 05/27/18 Furosemide [Lasix -] 40 mg PO DAILY #30 tablet 05/27/18 Ferrous Sulfate [Feosol] 325 mg PO BID #60 ud 07/09/18 Sennosides [Senna -] 1 tab PO BID #60 tablet 07/09/18 Atorvastatin Ca [Lipitor] 80 mg PO HS #30 tablet 07/26/18 Docusate Sodium [Colace -] 100 mg PO TID capsule 07/26/18 Hydralazine HCl 100 mg PO TID #90 tablet 07/26/18 Nifedipine ER [Procardia XL -] 60 mg PO BID #60 tab.er.24 07/26/18 Sevelamer HCl [Renagel] 800 mg PO TID 30 Days #90 tablet 07/26/18 Acetaminophen [Tylenol .Regular Strength -] 650 mg PO Q4H PRN tablet 03/09/19 Insulin Sliding Scale [Novolog Vial Sliding Scale -] 1 vial SQ ACHS units 03/09 Isosorbide Mononitrate [Imdur -] 60 mg PO DAILY tab.sr.24h 03/09/19 Vitamin B Comp W-C [Nephro-Brynn -] 1 tablet PO DAILY tablet 03/09/19 Lisinopril 20 mg PO BID 03/30/19 Metoprolol Succinate 50 mg PO DAILY 03/30/19 Aspirin Coated [Ecotrin -] 81 mg PO DAILY tablet.ec 04/03/19 Isosorbide Mononitrate [Imdur -] 60 mg PO DAILY tab.sr.24h 04/03/19 This patient is new to me today: No Emergency Visit: No Critical Care patient: No - Discharge Referral Referred to [facility] Med P.C.: No ATTENDING PHYSICIAN STATEMENT I saw and evaluated the patient. I reviewed the resident's note and discussed the case with the resident. I agree with the resident's findings and plan as documented. SUBJECTIVE: OBJECTIVE: ASSESSMENT AND PLAN:
--- NOTE | 2019-04-06 17:48 | PATH ---
Surgical Pathology Report Patient Name: KARI VILLALOBOS Med. Rec. #: [id number] /Age/Gender: 1950 (Age: 69) / M Account: [id number] Location: [facility] MED/SURG Taken: 03/31/2019 Received: 04/01/2019 Reported: 04/06/2019 Physicians: Hakan Garcia DPM Specimen(s) Received RIGHT FOOT TRANSMETATARSAL AMPUTATION Clinical History Right foot gangrene Final Diagnosis FOOT, RIGHT, TRANSMETATARSAL AMPUTATION: PREVIOUSLY AMPUTATED FOREFOOT WITH ACUTE AND CHRONIC GANGRENOUS NECROSIS INVOLVING STUMP OF SECOND, THIRD, FOURTH, AND FIFTH DIGITS, EXTENDING TO SOFT TISSUE MARGINS. FOCAL MILD ACUTE OSTEOMYELITIS. BONE SURGICAL MARGINS ARE VIABLE. Electronically Signed Gayle Hartley M.D. Gross Description Received in formalin labeled "right foot transmetatarsal amputation," is an 8.7 x 7.3 x 4.3 cm transmetatarsal foot amputation. The second digit appears to have been previously amputated and there is no second metatarsal bone present. The previous amputation site, as well as the third fourth and fifth digits, displays a 5.0 x 4.3 cm black, gangrenous lesion involving the underlying bone. The lesion focally possibly involves the skin and soft tissue margin. Separately received within the same container are 4 attached metatarsal bones from the first, third fourth and fifth digits, consistent with true bone margins. The specimen measures 6.5 x 4.0 x 3.2 cm. Interventional Cardiologist sections are submitted in 6 cassettes as follows: 1-lesion with underlying bone, following decalcification; 2-skin and soft tissue margin; 3-bone margin from first metatarsal, following decalcification; 4-bone margin from third metatarsal, following decalcification; 5-bone margin from fourth metatarsal, following decalcification; 6-bone margin from fifth metatarsal, following decalcification. /04/02/2019 saudi04/02/2019
== END 2019-04-03 17:47 | disposition home or self-care (01) | DRG 305 ==
LOC: JER 11:37 → JERBED 20:07 → JER 21:45 → J8W 03-31 09:45
PROVIDERS: ADMIT Internal Medicine; ATTEND Internal Medicine
PROC: 0Y6M0ZC Detachment at Right Foot, Partial 3rd Ray, Open Approach (ICD-10-PCS; 2019-03-31)
PROC: 0Y6M0ZD Detachment at Right Foot, Partial 4th Ray, Open Approach (ICD-10-PCS; 2019-03-31)
PROC: 0Y6M0ZF Detachment at Right Foot, Partial 5th Ray, Open Approach (ICD-10-PCS; 2019-03-31)
PROC: 0Y6M0Z9 Detachment at Right Foot, Partial 1st Ray, Open Approach (ICD-10-PCS; principal; 2019-03-31 16:30)
DX: E11.52 Type 2 diabetes mellitus with diabetic peripheral angiopathy with gangrene (principal); I13.2 Hypertensive heart and chronic kidney disease with heart failure and with stage 5 chronic kidney disease, or end stage renal disease; Q28.3 Other malformations of cerebral vessels; N18.6 End stage renal disease; E11.22 Type 2 diabetes mellitus with diabetic chronic kidney disease; I50.32 Chronic diastolic (congestive) heart failure; I96 Gangrene, not elsewhere classified; Z89.512 Acquired absence of left leg below knee; Z99.2 Dependence on renal dialysis; E78.5 Hyperlipidemia, unspecified; Z79.4 Long term (current) use of insulin; N40.0 Benign prostatic hyperplasia without lower urinary tract symptoms; Z87.891 Personal history of nicotine dependence; I25.2 Old myocardial infarction; Z89.421 Acquired absence of other right toe(s); R74.0 Nonspecific elevation of levels of transaminase and lactic acid dehydrogenase [LDH]; Z88.0 Allergy status to penicillin
CPT/HCPCS: 36415; 71101-TC-LT-FY; 80053; 80074; 82565; 82962; 82977; 83036; 83735; 84100; 84520; 85025; 85027; 85610; 85730; 86140; 86317; 86705; 86850; 86900; 86901; 87070; 87075; 87077; 87186; 87205; 87389; 88307-TC; 88311-TC; 93005; 93010; 94760; 99284-25

== ENCOUNTER 2020-06-29 17:55 | Emergency (ER) | payer OTHER ==
--- NOTE | 2020-06-29 18:01 | PDOC ---
Rapid Medical Evaluation Time Seen by Provider: 06/29/20 17:57 Medical Evaluation: Allergies Allergy/AdvReac Type Severity Reaction Status Date / Time Penicillins Allergy Verified 03/30/19 12:14 piperacillin [From Zosyn] Allergy Verified 03/30/19 12:14 tazobactam [From Zosyn] Allergy Verified 03/30/19 12:14 06/29/20 17:58 I performed a brief in-person evaluation of this patient. 70 y/o male with L stump abscess that started 1.5 weeks ago. Was given abx by his primary doctor. Was told the abscess was too hard to I&D. Has been on Keflex since Saturday. Pertinent physical exam findings: Abscess with scab formation appreciated to the left lower extremity stump. No active drainage. I have ordered the following: labs deferred to treating provider Patient to proceed to ED for further evaluation. Discharge Disposition - Diagnosis Abscess of left leg - Referrals - Patient Instructions - Post Discharge Activity
[2020-06-29 18:02] VITALS: BP 129/55; PULSE 80; TEMP 98.1; BMI 27.6
== END 2020-06-29 19:45 | disposition left against medical advice (07) ==
LOC: JER 17:55
DX: L03.116 Cellulitis of left lower limb (principal)
CPT/HCPCS: 99284-25

== ENCOUNTER 2020-07-02 12:06 | Emergency (ER) | payer OTHER ==
[2020-07-02 12:24] VITALS: BP 167/60; PULSE 71; TEMP 98.8; BMI 27.4
--- OUTSIDE RECORDS SUMMARY | 2020-07-02 13:10 | XMS ---
:1950 Author Organization [facility] Care Team Providers Name Role Phone KING VIVEROSVILLAPerla Unavailable Unavailable BRITTNEY ESCAMILLA Unavailable Unavailable Re-disclosure Warning The records that you are about to access may contain information from federally- assisted alcohol or drug abuse programs. If such information is present, then the following federally mandated warning applies: This information has been disclosed to you from records protected by federal confidentiality rules (42 CFR part 2). The federal rules prohibit you from making any further disclosure of this information unless further disclosure is expressly permitted by the written consent of the person to whom it pertains or as otherwise permitted by 42 CFR part 2. A general authorization for the release of medical or other information is NOT sufficient for this purpose. The Federal rules restrict any use of the information to criminally investigate or prosecute any alcohol or drug abuse patient.The records that you are about to access may contain highly sensitive health information, the redisclosure of which is protected by Article 27-F of the [facility] Public Health law. If you continue you may haveaccess to information: Regarding HIV / AIDS; Provided by facilities licensed or operated by the [facility] Office of Mental Health; or Provided by the [facility] Office for People With Developmental Disabilities. If such information is present, then the following [facility] mandated warning applies: This information has been disclosed to you from confidential records which are protected by state law. State law prohibits you from making any further disclosure of this information without the specific written consent of the person to whom it pertains, or as otherwise permitted by law. Any unauthorized further disclosure in violation of state law may result in a fine or mcfp sentence or both. A general authorization for the release of medical or other information is NOT sufficient authorization for further disclosure. Encounters Encounter Providers Location Date Indications Data Source(s ) Outpatient Att[facility]: FELICE[facility]: [facility] NATALY VIVEROS H25.012 [facility]: [facility] Attender: FELICE [facility] AM [facility] Emergency Attender: ANDI 06/18/[address] CAROLAdmitter: ANDI, 05:50:00 PM EDT [facility] on SUDDEN BLINDNESS 10/31/2018 12:00:00 AM EST - 019 12:00:00 [facility] AM EST Medications Medication Brand Start Product Dose Route Administrative Pharmacy [facility] Indications Reaction Description Data Name Date Form Instructions Instructions Source(s) Sevelamer Renage 1.0 suspend Renagel 80 0 eCW3 hydrochlori l 800 {tabl ed MG ([place] de 800 MG MG et_wi [place] Oral Tablet th_me Health [RenaGel] als} Care) Renagel 800 MG Sevelamer Renage 1.0 suspend Renagel 80 0 eCW3 hydrochlori l 800 {tabl ed MG ([place] de 800 MG MG et_wi [place] Oral Tablet th_me Health [RenaGel] als} Care) Renagel 800 MG Insurance Providers Payer name Policy type Policy ID Covered Covered constitution party's Policy P tyler / Coverage constitution party ID relationship to Andrade Inf ormation type andrade MEDICAID [id number] SP [id number] SELF PAY SP INSURANCE MEDICAID [id number] SP [id number] W [id number] 01 [id number] S[facility] O [id number] LOCAL LAB BILLING DEPT Problems, Conditions, and Diagnoses Code Display Name Description Problem Type Effective Data Sour ce(s) Dates Z99.2 Dependence on renal DEPENDENCE ON Diagnosis 07/15/2019 [facility] dialysis RENAL DIALYSIS 06:00:00 AM [facility] [place] Z96.1 Presence of PRESENCE OF Diagnosis 07/15/2019 [place] intraocular lens INTRAOCULAR LENS 06:00:00 AM [facility] [place] I96 Gangrene, not GANGRENE, NOT Diagnosis 07/15/2019 [facility] elsewhere ELSEWHERE 06:00:00 AM [facility] Care [place] H26.9 Unspecified UNSPECIFIED Diagnosis 07/15/2019 [place] cataract CATARACT 06:00:00 AM [facility] [place] N18.6 End stage renal END STAGE RENAL Diagnosis 07/15/2019 [place] disease DISEASE 06:00:00 AM [facility] adRise I12.0 Hypertensive HYP CHR KIDNEY Diagnosis 07/15/2019 [facility] chronic kidney DISEASE W STAGE 5 06:00:00 AM [facility] [facility] disease with stage CHR KIDNEY EDT Care 5 chronic kidney DISEASE OR ESRD Cor poration disease or end stage renal disease E11.3599 Type 2 diabetes TYPE 2 DIAB WITH Diagnosis [facility]/15[facility]2019 [facility] mellitus with PROLIF DIAB RTNOP 06:00:00 AM [facility] Lumenergi proliferative WITHOUT MCLR EDT Care diabetic EDEMA, [facility] AS retinopathy without macular edema, unspecified eye E11.22 Type 2 diabetes TYPE 2 DIABETES Diagnosis 07/15/2019 [place] mellitus with MELLITUS W 06:00:00 AM [facility] diabetic chronic DIABETIC CHRONIC EDT Pr re kidney disease KIDNEY DISEASE Corpor ation H43.10 Vitreous VITREOUS Diagnosis 07/15/2019 [place] hemorrhage, HEMORRHAGE, 06:00:00 AM [facility] unspecified eye UNSPECIFIED EYE EDT Care [place] H25.89 Other age-related OTHER AGE-RELATED Diagnosis 06/18/2019 [place] cataract CATARACT 05:50:00 PM [facility] EDT Care Corporation Z89.512 Acquired absence of ACQUIRED ABSENCE Diagnosis 06/18/2019 [place] left leg below knee OF LEFT LEG BELOW 05:50:00 PM [facility] KNEE EDT Care Corporation Z98.49 Cataract extraction CATARACT Diagnosis 06/18/2019 [facility] ndiaye status, unspecified EXTRACTION 05:50:00 PM [facility] eye STATUS, EDT Care UNSPECIFIED EYE Corporati on 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 06/18/2019 [facility] heart disease of DISEASE OF [place] 05:50:00 PM [facility] [place] coronary CORONARY ARTERY EDT Care artery without W/O ANG PCTRS Corpora tion angina pectoris E78.00 Pure PURE Diagnosis 06/18/2019 [place] hypercholesterolemi HYPERCHOLESTEROLE 05:50:00 PM [facility] a, unspecified SONAL, UNSPECIFIED EDT Care Corporation E11.9 Type 2 diabetes TYPE 2 DIABETES Diagnosis 06/18/2019 [place] mellitus without MELLITUS WITHOUT 05:50:00 PM [facility] complications COMPLICATIONS EDT Care Corporation H43.11 Vitreous VITREOUS Diagnosis 06/18/2019 [place] hemorrhage, right HEMORRHAGE, RIGHT 05:50:00 PM [facility] eye EYE EDT Care Corporation I16.1 Hypertensive HYPERTENSIVE Diagnosis 06/18/2019 [facility] r emergency EMERGENCY 05:50:00 PM [facility] EDT [facility] H54.61 Unqualified visual UNQUALIFIED Diagnosis 06/18/2019 [facility] ndiaye loss, right eye, VISUAL LOSS, 05:50:00 PM [facility] normal vision left RIGHT EYE, NORMAL EDT Care eye VISION LEFT EYE Corporati on H53.9 Unspecified visual UNSPECIFIED Diagnosis 06/18/2019 [facility] ndiaye disturbance VISUAL 05:50:00 PM [facility] DISTURBANCE EDT Care Corporation
--- NOTE | 2020-07-02 13:34 | PDOC ---
History of Present Illness - General Chief Complaint: Wound Stated Complaint: WOUND CARE Time Seen by Provider: 07/02/20 13:01 History Source: Patient, Family, Rubber [employer]her Used Exam Limitations: No Limitations - History of Present Illness Initial Comments: 07/02/20 14:06 75 y.o. M PMHx DM, PVD, HTN, HLD, ESRD, and diastolic CHF presenting due to a wound check. Patient states he went to the [facility] 2 weeks ago due to an infection and was prescribed a one week course of keflex. Patient states he has no fevers, chills, sob, chest pain, N/V/D. Patient states he was here a few days ago to get it checked but it was too crowed so they left and decided to come back today to get it checked out. Specialist: Dr. Paiz PMHx: DM, PVD, HTN, HLD, ESRD, and diastolic CHF Meds: In Chart Allergies: Penecillin, piperacillin, tazobactam Past History - Medical History Allergies/Adverse Reactions: Allergies Allergy/AdvReac Type Severity Reaction Status Date / Time Penicillins Allergy Verified 07/02/20 13:34 piperacillin [From Zosyn] Allergy Verified 07/02/20 13:34 tazobactam [From Zosyn] Allergy Verified 07/02/20 13:34 Home Medications: Ambulatory Orders Acetaminophen [Tylenol] 650 mg PO QID PRN 07/02/20 Aspirin Coated [Ecotrin -] 81 mg PO DAILY 07/02/20 Hydralazine HCl 50 mg PO TID 07/02/20 Anemia: No Asthma: No Cancer: No Cardiac Disorders: No CVA: No COPD: No CHF: No Dementia: No Diabetes: Yes Dialysis: Yes (M-W-F) GI Disorders: No Disorders: Yes (Enlarged prostate) HTN: Yes Hypercholesterolemia: Yes Liver Disease: No Seizures: No Thyroid Disease: No - Surgical History Abdominal Surgery: No Appendectomy: Yes Cardiac Surgery: No Cholecystectomy: No Lung Surgery: No Neurologic Surgery: No Orthopedic Surgery: Yes (left BKA , right TMA) - Immunization History Immunization Up to Date: Yes - Psycho-Social/Smoking History Smoking History: Never smoked Have you smoked in the past 12 months: No If you are a former smoker, when did you quit?: many years ago - Substance Abuse Hx (Audit-C & DAST Scrn) How often the patient has a drink containing alcohol: Never Score: In Men: 4 or > Positive; In Women: 3 or > Positive: 0 Screen Result (Pos requires Nsg. Audit-10AR): Negative In the last yr the pt used illegal drug/Rx for NonMed reason: No Score: Yes response is considered Positive: 0 Screen Result (Positive result requires Nsg. DAST-10): Negative Review of Systems - Review of Systems Able to Perform ROS?: Yes Is the patient limited Vincentian proficient: Yes Constitutional: No: Chills, Fever HEENTM: No: Blurred Vision, Double Vision Respiratory: No: Cough, Shortness of Breath Cardiac (ROS): No: Chest Pain, Lightheadedness ABD/GI: No: Abdominal Distended, Constipated, Diarrhea, Nausea, Vomiting : No: Burning, Dysuria Musculoskeletal: No: Back Pain, Muscle Weakness Integumentary: No: Dryness, Pruritus, Rash Neurological: No: Headache, Numbness, Tremors, Dizziness Hematologic/Lymphatic: No: Easy Bleeding, Easy Bruising *Physical Exam - Vital Signs Last Vital Signs Temp Pulse Resp BP Pulse Ox 98.8 F 71 18 167/60 99 07/02/20 12:21 07/02/20 12:21 07/02/20 12:21 07/02/20 12:21 07/02/20 12:21 - Physical Exam General Appearance: Yes: Nourished, Appropriately Dressed. No: Apparent Distress Respiratory/Chest: positive: Lungs Clear, Normal Breath Sounds. negative: Chest Tender, Respiratory Distress, Accessory Muscle Use, Crackles, Rales, Stridor, Wheezing Cardiovascular: positive: Regular Rhythm, Regular Rate. negative: Edema, JVD, Murmur Gastrointestinal/Abdominal: positive: Normal Bowel Sounds, Flat, Soft. negative: Tender, Guarding, Rebound, Tenderness Musculoskeletal: positive: Normal Inspection. negative: CVA Tenderness Extremity: positive: Normal Inspection. negative: Tender, Coldness, Swelling, Calf Tenderness Integumentary: positive: Normal Color, Dry, Warm, Other (.5cm crusted over well healing wound. no erythema no pain on palpation no area of fluctuance or drainage). negative: Rash, Swelling Neurologic: positive: Fully Oriented, Alert, Normal Mood/Affect, Normal Response Medical Decision Making - Medical Decision Making 07/02/20 14:13 75 y.o. M PMHx DM, PVD, HTN, HLD, ESRD, and diastolic CHF presenting due to a wound check. DDx: Wound check for signs of infection and proper healing Discharge - Discharge Information Problems reviewed: Yes Clinical Impression/Diagnosis: Abscess of left leg Condition: Improved Disposition: HOME - Admission No - Follow up/Referral Referrals: Ruslan Villarreal II, DO [Primary Care Provider] - - Patient Discharge Instructions Patient Printed Discharge Instructions: DI for Wound Infection Additional Instructions: You were seen in the emergency department for care and evaluation of your Left leg wound. You received no medication in the emergency department Please follow up with your primary care physician and or Dr. Paiz regarding your visit to the emergency department. If you experience profound headaches, fever, chills, nausea vomiting, redness or pain around the healing wound please return to the emergency department OR call 911. - Post Discharge Activity
--- NOTE | 2020-07-02 14:53 | PDOC ---
Documentation entered by Georgi Ortega SCRIBE, acting as scribe for Shannon Butts MD. Shannon Butts MD: This documentation has been prepared by the Jordan starks Angel, SCRIBE, under my direction and personally reviewed by me in its entirety. I confirm that the documentation accurately reflects all work, treatment, procedures, and medical decision making performed by me. Attending Attestation - Resident Resident Name: Edward Severino - ED Attending Attestation I have performed the following: I have examined & evaluated the patient, The case was reviewed & discussed with the resident, I agree w/resident's findings & plan, Exceptions are as noted - HPI HPI: 07/02/20 14:21 The patient is a 75 year old male with a significant past medical history HTN, HLD, ESRD, PVD, DM and diastolic CHF who presents to the ED for evaluation of a wound. The patient states 2 weeks ago he went to the [facility] for an infection and was given a prescription for Keflex, which he finished. Denies fever, chills, chest pain, SOB, palpitation, dizziness, weakness, N, V, D, abdominal pain, bladder or bowel problems. Came to the ED on 06/29 because he wanted to get the wound "checked out" again however when he noticed it was crowded he left. He came back today to have the wound checked. States it has been improving every day and currently denies all complaints. - Physicial Exam PE: 07/02/20 13:55 General: well appearing HEENT: NCAT Extremities: s/p L BKA, L stump without ttp increased warmth erythema drainage or fluctuance, small healing scab on stump - Medical Decision Making 07/02/20 14:50 70 yo M here for wound check, no increased warmth erythema fluctuance drainage or systemic signs of infection. Likely responding appropriately to abx. Plan: -d/c with return precautions, pt has f/u on 07/[address] Paiz, instructed to return sooner for any new or worsening symptoms This clinical encounter is taking place during a federal and state health care emergency attributable to the novel [place] Virus pandemic. The [place] of the Department of Health and Human Services has declared, pursuant to the Public Health Service Act 319F-3 (42 U.S.C. 247d-6d), that a covered persons activities related to medical countermeasures against COVID-19 will be immune from liability under Federal and State law. Discharge - Discharge Information Problems reviewed: Yes Clinical Impression/Diagnosis: Abscess of left leg Condition: Improved Disposition: HOME - Follow up/Referral Referrals: Ruslan Villarreal II, DO [Primary Care Provider] - - Patient Discharge Instructions Patient Printed Discharge Instructions: DI for Wound Infection Additional Instructions: You were seen in the emergency department for care and evaluation of your Left leg wound. You received no medication in the emergency department Please follow up with your primary care physician and or Dr. Paiz regarding your visit to the emergency department. If you experience profound headaches, fever, chills, nausea vomiting, redness or pain around the healing wound please return to the emergency department OR call 911. - Post Discharge Activity
== END 2020-07-02 14:18 | disposition home or self-care (01) ==
LOC: JER 12:06
DX: L03.116 Cellulitis of left lower limb (principal)
CPT/HCPCS: 99283-25